=== PATIENT | female | born 1960 | race Caucasian/White ===

== ENCOUNTER 2020-06-11 15:27 | Outpatient (REF) | payer OTHER, SELFPAY ==
--- NOTE | 2020-06-11 15:34 | MM_ITS ---
EXAMINATION: MM SCREENING DIGITAL BREAST TOMOSYNTHESIS, BILATERAL CLINICAL INFORMATION: Screening. Asymptomatic. The lifetime risk of breast cancer based on the Tyrer-Cuzick Model is 8%. COMPARISON: Mammography: 06/06/2019, 05/06/2018, 02/25/2017 TECHNIQUE: Digital breast tomosynthesis is performed in both the craniocaudal and mediolateral oblique views along with computer-aided detection (CAD). Synthesized 2D images are generated from the tomosynthesis. FINDINGS: There are scattered areas of fibroglandular density (ACR BI-RADS breast composition Category b). There are no significant masses, abnormal calcifications, or other abnormalities. Parenchymal pattern is similar to prior exams. The skin contours are smooth. MM/MM tomosynthesis screening BI IMPRESSION: No mammographic evidence of malignancy. ASSESSMENT: BI-RADS 1: Negative RECOMMENDATION: Routine annual mammography screening. This patient's information was entered into a reminder system with a target due date for their next mammogram.
== END 2020-06-11 15:28 | disposition home or self-care (01) ==
LOC: HO.MAMMO 15:27
PROVIDERS: Visit Provider Internal Medicine
DX: Z12.31 Encounter for screening mammogram for malignant neoplasm of breast (principal)
CPT/HCPCS: 77063; 77067

== ENCOUNTER → 2020-09-05 15:32 | Outpatient (BNVA) | payer OTHER, SELFPAY | PROVIDERS: PCP Internal Medicine; Visit Provider Nurse Practitioner ==

== ENCOUNTER 2020-10-17 | Outpatient (REF) | payer OTHER, SELFPAY ==
[2020-10-23 04:48] LABS: HPV mRNA E6/E7 rflx Not Detected (Not Detected)
== END 2020-10-17 00:01 | disposition home or self-care (01) ==
LOC: HO.LNP
PROVIDERS: Visit Provider Internal Medicine
DX: Z12.4 Encounter for screening for malignant neoplasm of cervix (principal); Z11.51 Encounter for screening for human papillomavirus (HPV)
CPT/HCPCS: 87624; 88142

== ENCOUNTER 2020-12-25 11:56 | Outpatient (REF) | payer OTHER, SELFPAY ==
[2020-12-25 13:55] LABS: MANUAL DIFF FLAG NO
[2020-12-25 14:02] LABS: Basophils Absolute Auto 0.1 X10*3/uL (0.0-0.2); Basophils Percent Auto 0.6 % (0-2); Eosinophils Absolute Auto 0.1 X10*3/uL (0.0-0.4); Eosinophils Percent Auto 1.8 % (0-4); Hematocrit 53.7 % (37-47); Hemoglobin 17.3 g/dl (12.0-16.0); Imm Gran Abs Auto 0.02 X10*3/uL (0.00-0.03); Imm Gran Pct Auto 0.3 % (0.0-0.4); Lymphocytes Absolute Auto 2.7 X10*3/uL (1.2-4.9); Lymphocytes Percent Auto 34.3 % (20-40); Mean Corpuscular HGB Conc 32.2 g/dl (31.0-35.0); Mean Corpuscular Hemoglobin 29.9 pg (27.0-33.0); Mean Corpuscular Volume 92.7 fL (80-98); Mean Platelet Volume 10.6 fL (9.4-12.3); Monocytes Absolute Auto 0.5 X10*3/uL (0.1-1.2); Monocytes Percent Auto 5.9 % (2-11); Neutrophils Absolute Auto 4.5 X10*3/uL (2.0-8.3); Neutrophils Percent Auto 57.1 % (45-73); Platelet Count 235 X10*3/uL (160-400); Red Blood Count 5.79 X10*6/uL (4.20-5.50); Red Cell Distribution Width 13.2 % (11.0-16.0); White Blood Count 7.9 X10*3/uL (4.8-10.8)
[2020-12-25 14:42] LABS: Ferritin 63 ng/mL (10-250); TSH reflex Free T4 0.55 uIU/mL (0.32-4.0)
[2020-12-25 14:45] LABS: Vitamin D 25-OH Total 55.6 ng/mL (>30)
[2020-12-25 14:54] LABS: Vitamin B12 456 pg/mL (200-900)
[2020-12-25 15:04] LABS: Alanine Aminotransferase 33 U/L (0-31); Albumin Level 4.7 g/dL (3.5-5.0); Alkaline Phosphatase 151 U/L (39-117); Anion Gap 17 (12-20); Aspartate Amino Transferase 24 U/L (5-31); Bilirubin Total 0.6 mg/dL (0.0-1.0); Blood Urea Nitrogen 9 mg/dL (9-16); Calcium 10.5 mg/dL (8.4-10.2); Carbon Dioxide 26 mmol/L (22-29); Chloride 102 mmol/L (96-108); Cholesterol 259 mg/dL; Estimated Glomerular Filt Rate > 60; Glucose Fasting 200 mg/dL (60-99); HDL Cholesterol 41 mg/dL; Iron 104 mcg/dL (30-160); LDL Cholesterol Calculated 170 mg/dl; Percent Iron Saturation 23 % (15-50); Potassium 4.1 mmol/L (3.3-5.1); Sodium 141 mmol/L (135-145); Total Iron Binding Capacity 451 mcg/dL (228-428); Total Protein 7.4 g/dL (6.5-8.0); Triglycerides 242 mg/dL; Unsaturated Iron Binding 347 ug/dL
== END 2020-12-25 11:57 | disposition home or self-care (01) ==
LOC: HO.HMGCLDS 11:56
PROVIDERS: Nurse Practitioner Family; PCP Internal Medicine; Visit Provider Internal Medicine
DX: Z00.01 Encounter for general adult medical examination with abnormal findings (principal); E78.5 Hyperlipidemia, unspecified; J44.9 Chronic obstructive pulmonary disease, unspecified; M50.30 Other cervical disc degeneration, unspecified cervical region; R53.83 Other fatigue; Z78.0 Asymptomatic menopausal state; Z98.890 Other specified postprocedural states
CPT/HCPCS: 36415; 80053; 80061; 82306; 82607; 82728; 83540; 84443; 85025

== ENCOUNTER → 2020-12-31 13:30 | Outpatient (BNVA) | payer OTHER, SELFPAY | PROVIDERS: Visit Provider Nurse Practitioner | DX: K31.84 Gastroparesis (principal); R14.0 Abdominal distension (gaseous); K59.04 Chronic idiopathic constipation; K21.9 Gastro-esophageal reflux disease without esophagitis | CPT/HCPCS: 99212 ==

== ENCOUNTER 2021-03-27 11:59 | Outpatient (REF) | payer OTHER, SELFPAY ==
[2021-03-27 14:19] LABS: Alanine Aminotransferase 28 U/L (0-31); Anion Gap 15 (12-20); Aspartate Amino Transferase 20 U/L (5-31); Blood Urea Nitrogen 8 mg/dL (9-16); Calcium 10.2 mg/dL (8.4-10.2); Carbon Dioxide 26 mmol/L (22-29); Chloride 104 mmol/L (96-108); Cholesterol 160 mg/dL; Estimated Average Glucose 166 mg/dL; Estimated Glomerular Filt Rate > 60; Glucose Fasting 113 mg/dL (60-99); HDL Cholesterol 34 mg/dL; Hemoglobin A1c % 7.4 %; LDL Cholesterol Calculated 83 mg/dl; Potassium 4.3 mmol/L (3.3-5.1); Sodium 141 mmol/L (135-145); Triglycerides 219 mg/dL
[2021-03-27 14:46] LABS: Creatinine Urine 57.05 mg/dL; Microalbum/Creatinine Ratio Ur 12.2 ug/mg cr
== END 2021-03-27 12:00 | disposition home or self-care (01) ==
LOC: HO.HMGCLDS 11:59
PROVIDERS: PCP Internal Medicine; Visit Provider Internal Medicine
DX: E11.65 Type 2 diabetes mellitus with hyperglycemia (principal); E78.5 Hyperlipidemia, unspecified; I10 Essential (primary) hypertension
CPT/HCPCS: 36415; 80048; 80061; 82043; 83036; 84450; 84460

== ENCOUNTER → 2021-04-09 14:08 | Outpatient (BNVA) | payer OTHER, SELFPAY | PROVIDERS: PCP Internal Medicine; Visit Provider Anesthesiology | DX: M96.1 Postlaminectomy syndrome, not elsewhere classified (principal); Z79.899 Other long term (current) drug therapy | CPT/HCPCS: 99212 ==

== ENCOUNTER 2021-06-12 13:59 | Outpatient (REF) | payer OTHER, SELFPAY ==
--- NOTE | ~2021-06-12 | MM_ITS ---
EXAMINATION: MM SCREENING DIGITAL MAMMOGRAPHY, BILATERAL CLINICAL INFORMATION: Screening. Asymptomatic. The lifetime risk of breast cancer based on the Tyrer-Cuzick Model is 7.6%. COMPARISON: Mammography: June 11, 2020 and studies dating back to December 20, 2013 TECHNIQUE: Digital mammography is performed in craniocaudal and mediolateral oblique views along with computer-aided detection (CAD). FINDINGS: There are scattered areas of fibroglandular density (ACR BI-RADS breast composition Category b). There are no significant masses, abnormal calcifications, or other abnormalities. MM/MM screening mammo BI IMPRESSION: There are no significant changes from prior study. ASSESSMENT: BI-RADS 1: Negative RECOMMENDATION: Routine annual mammography screening. This patient's information was entered into a reminder system with a target due date for their next mammogram.
== END 2021-06-12 14:00 | disposition home or self-care (01) ==
LOC: HO.MAMMO 13:59
PROVIDERS: PCP Internal Medicine; Visit Provider Internal Medicine
DX: Z12.31 Encounter for screening mammogram for malignant neoplasm of breast (principal)
CPT/HCPCS: 77067

== ENCOUNTER 2021-07-03 11:22 | Outpatient (REF) | payer OTHER, SELFPAY ==
[2021-07-03 13:58] LABS: Estimated Average Glucose 154 mg/dL
[2021-07-03 14:26] LABS: Alanine Aminotransferase 24 U/L (0-31); Aspartate Amino Transferase 15 U/L (5-31); Cholesterol 209 mg/dL; HDL Cholesterol 48 mg/dL; LDL Cholesterol Calculated 124 mg/dl; Triglycerides 189 mg/dL
== END 2021-07-03 11:23 | disposition home or self-care (01) ==
LOC: HO.HMGCLDS 11:22
PROVIDERS: PCP Internal Medicine; Visit Provider Internal Medicine
DX: E11.65 Type 2 diabetes mellitus with hyperglycemia (principal); E78.5 Hyperlipidemia, unspecified
CPT/HCPCS: 36415; 80061; 83036; 84450; 84460

== ENCOUNTER → 2021-07-04 13:52 | Outpatient (BNVA) | payer OTHER, SELFPAY | PROVIDERS: PCP Internal Medicine; Referring Provider Internal Medicine; Visit Provider Nurse Practitioner | DX: K21.9 Gastro-esophageal reflux disease without esophagitis (principal); K59.04 Chronic idiopathic constipation; K31.84 Gastroparesis; R14.0 Abdominal distension (gaseous) | CPT/HCPCS: 99212 ==

== ENCOUNTER 2021-09-19 15:42 | Inpatient (IN) | payer OTHER, SELFPAY ==
[2021-09-19] VITALS (8 sets, daily range): BP systolic 149–178; BP diastolic 51–86; PULSE 104–108; RESP 18–21; TEMP 36.7–37; O2SAT 88–95; BMI 30.2
--- NOTE | ~2021-09-19 | XR_ITS ---
EXAMINATION: XR CHEST CLINICAL INFORMATION: Shortness of breath. COMPARISON: Chest radiograph dated from 10/28/2019. TECHNIQUE: AP view of the chest was obtained. FINDINGS: Stable appearance of the cardiomediastinal silhouette. Suspect developing hazy opacities in the right lung base. No pleural effusion or pneumothorax. No acute osseous abnormalities. Visualized upper abdomen is within normal limits. XR/XR chest 1V IMPRESSION: Suspect hazy airspace opacities in the right lower lobe which are nonspecific and could be related with subsegmental atelectasis, aspiration or developing infiltrates depending on the clinical context.
--- NOTE | 2021-09-19 16:15 | ED_ITS ---
HPI - URI/Sore Throat General Chief Complaint: Upper Respiratory Symptoms Stated Complaint: flu like Time Seen by Provider: 09/19/21 16:01 History of Present Illness HPI Narrative: Patient is a 61-year-old female presents today with having shortness of breath coughing upper respiratory symptoms that been ongoing for the last 24 hours. Positive history of COPD baseline not on oxygen long history of smoking patient has a history of having COVID vaccine x2 back in October and November of last year. Positive generalized malaise aches. Positive sick contact. No change in smell or taste. No GI symptoms. No chest pain. No history of heart attack. Patient from home. Related Data Home Medications Medication Instructions Recorded Confirmed aspirin 81 mg tablet,delayed 81 mg PO BEDTIME 01/10/21 04/09/21 release (Adult Low Dose Aspirin) fluticasone furoate 200 1 inh INHALATION DAILY 03/31/21 09/19/21 mcg/actuation blister powder for inhalation (Arnuity Ellipta) umeclidinium 62.5 mcg/actuation 1 inh INHALATION DAILY 03/31/21 09/19/21 blister powder for inhalation atorvastatin 20 mg tablet 20 mg PO BEDTIME 09/19/21 09/19/21 gabapentin 800 mg tablet 800 mg PO Q6H 09/19/21 09/19/21 metoclopramide HCl 10 mg tablet 10 mg PO TIDAC 09/19/21 09/19/21 (Reglan) Previous Rx's Medication Instructions Recorded cetirizine 10 mg capsule (Zyrtec) 10 mg PO DAILY 30 Days #30 cap 09/24/20 cholecalciferol (vitamin D3) 50 50 mcg PO DAILY #30 cap 04/03/21 mcg (2,000 unit) capsule amitriptyline 25 mg tablet 50 mg PO BEDTIME 30 Days #60 tab 04/09/21 linaclotide 145 mcg capsule 145 mcg PO QAM 30 Days #30 cap 07/04/21 (Linzess) omeprazole 20 mg capsule,delayed 20 mg PO DAILY 30 Days #30 cap 07/04/21 release psyllium husk 0.52 gram capsule 1.04 g PO BID #120 cap 07/04/21 (Fiber Laxative (psyllium husk)) simethicone 180 mg capsule (Gas 180 mg PO QID 30 Days #120 cap 07/04/21 Relief (simethicone)) naproxen 500 mg tablet 500 mg PO BID PRN #60 tab 08/21/21 metformin 500 mg tablet 500 mg PO BID #180 tab 09/05/21 nystatin-triamcinolone 100,000 1 appl TOPICAL DAILY 10 Days #30 g 09/17/21 unit/g-0.1 % topical cream Allergies Allergy/AdvReac Type Severity Reaction Status Date / Time amoxicillin Allergy Intermediate RASH Verified 07/04/21 13:59 [AMOXICILLIN] Review of Systems Verdana 4l Review of Systems: Verdana 4d Positive coughing Verdana 4d congestion upper respiratory symptoms positive generalized malaise all system reviewed otherwise negative Verdana 4d Yes all other systems are reviewed and are negative [facility] Past Medical History Attestation statement: The following information was validated with the patient. Medical History COPD (chronic obstructive pulmonary disease) Degenerative disc disease, cervical Diabetes mellitus with hyperglycemia, without long-term current use of insulin Dyslipidemia Postlaminectomy syndrome of cervical region Postmenopause Seasonal allergic rhinitis Type 2 diabetes mellitus without complication, without long-term current use of insulin Surgical History H/O cervical discectomy History of esophagogastroduodenoscopy (EGD) Hx of colonoscopy Family History Family History Mother Diabetes Sister Diabetes Brother Diabetes Father HTN (hypertension) Social History Social History Housing: Other Housing Other:: mobile home Alcohol intake: never Patient Tobacco Use Status: Current everyday Tobacco user Cigarette Packs Per Day: 1 Cigarettes Per Day: 20 e-Cigarette/Vaping Use: Never Used Use of substances other than those prescribed or required for medical reasons: No Advance Directives: No Advance Directives Information Provided: No service: No Current occupational status: unemployed Physical Exam Verdana 4l Vital Signs: Verdana 4d Verdana 4d Vital Signs: Verdana 4d Verdana 4Bd Last Vital Signs Verdana 4d [employer] 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 Oriented X3. No acute distress. Eyes: Pupils equal, round and reactive to light. ENT: Pharynx normal. Neck: Normal inspection. Neck supple. No lymph nodes noted. No crepitus CVS: Normal heart rate and rhythm. Pulses normal. Normal S1 and S2 Respiratory: diminished breath sounds bilaterally with rhonchi is noted. Abdomen: Soft and nontender. No rigidity. No distention. good BS x4 Skin: Skin warm and dry. Normal skin color. Normal skin turgor. Extremities: Positive 1+ edema. Neurovascular intact to all extremities. No Lacerations. No Rash Neuro: Oriented X 3. No motor deficit. No sensory deficit. Moving all extermities. No slurred speech MDM - URI/Sore Throat MDM Narrative Medical decision making narrative: positive shortness of breath generalized malaise coughing congestion upper respiratory symptoms. Decreased O2 sat down to 80 or 85% on room air. Drops even lower when she ambulates. Patient placed on 2 L of supplemental oxygen with O2 sat maintaining at approximately 90%. Steroids started. COVID test ordered. Labs ordered. COVID test was negative. Patient's RSV was positive. Likely the cause of patient's exacerbation from COPD. Steroid given neb treatment given. Chest x- ray showed no focal infiltrate. Patient will require admission in stable condition. Patient's D-dimer less than 150 unlikely to have pulmonary emboli. BMP normal unlikely to have congestive heart failure. Differential Diagnosis Differential diagnosis: Likely upper respiratory infection Medical Records Attestation: I reviewed the patient's medical records. Lab Data Attestation: I reviewed the patient's lab results. Result diagrams: 09/19/21 16:31 09/19/21 16:31 Labs: Lab Results 09/19/21 09/19/21 09/19/21 Range/Units 16:14 16:31 16:31 WBC 8.8 (4.8-10.8) X10*3/uL RBC 5.55 H (4.20-5.50) X10*6/uL Hgb 16.4 H (12.0-16.0) g/dl Hct 50.7 H (37.0-47.0) % MCV 91.4 (80.0-98.0) fL MCH 29.5 (27.0-33.0) pg MCHC 32.3 (31.0-35.0) g/dl RDW 13.9 (11.0-16.0) % Plt Count 185 (160-400) X10*3/uL MPV 10.1 (9.4-12.3) fL Immature Gran % (Auto) 0.3 (0.0-0.4) % Neut % (Auto) 74.5 H (45-73) % Lymph % (Auto) 16.1 L (20-40) % [place] % (Auto) 7.5 (2-11) % Eos % (Auto) 0.9 (0-4) % Baso % (Auto) 0.7 (0-2) % Lymph # (Auto) 1.4 (1.2-4.9) X10*3/uL [place] # (Auto) 0.7 (0.1-1.2) X10*3/uL Eos # (Auto) 0.1 (0.0-0.4) X10*3/uL Baso # (Auto) 0.1 (0.0-0.2) X10*3/uL Abs Immat Gran (auto) 0.03 (0.00-0.03) X10*3/uL Absolute Neuts (auto) 6.6 (2.0-8.3) x10*3/uL Absolute Nucleated RBC 0.000 (0.0-0.012) X10*3/uL Nucleated RBC % (auto) 0.0 (0.0-0.2) /100WBC Smear Tech's Comments VERIFIED D-Dimer High Sensitivty NG/ML Sodium 139 (135-145) mmol/L Potassium 4.6 (3.3-5.1) mmol/L Chloride 100 (96-108) mmol/L Carbon Dioxide 26 (22-29) mmol/L Anion Gap 18 (12-20) BUN 7 L (9-16) mg/dL Creatinine 0.63 (0.5-1.4) mg/dL Estim Creat Clear Calc 72.8 Estimated GFR > 60 Random Glucose 151 H (60-115) mg/dL Calcium 10.1 (8.4-10.2) mg/dL Phosphorus 2.9 (2.7-4.5) mg/dL Magnesium 1.6 (1.6-2.6) mg/dL Total Bilirubin 0.4 (0.0-1.0) mg/dL Direct Bilirubin < 0.2 (0.0-0.5) mg/dL AST 29 D (5-31) U/L ALT 41 H (0-31) U/L Alkaline Phosphatase 139 H (39-117) U/L Lactate Dehydrogenase 230 H (122-220) U/L Troponin I High Sens (<3.5-17.0) ng/L C-Reactive Protein 2.17 H (< or = 0.50) mg/dL B-Natriuretic Peptide (<100) pg/mL Total Protein 7.6 (6.5-8.0) g/dL Albumin 4.6 (3.5-5.0) g/dL Procalcitonin ng/mL Urine Color YELLOW Urine Appearance CLEAR Urine pH 5.5 (5.0-8.0) Ur Specific [place] <= 1.005 (1.005-1.025) Urine Protein NEG (NEG-TRACE) MG/DL Urine Glucose (UA) NEG (NEG) MG/DL Urine Ketones NEG (NEG) MG/DL Urine Blood NEG (NEG) Urine Nitrite NEG (NEG) Ur Leukocyte Esterase NEG (NEG) Urine RBC 0-2 (0) /HPF Urine WBC 1-4 (0-4) /HPF Urine WBC Clumps NOTED Ur Squamous Epith Cells 1+ /LPF Urine Bacteria 3+ /LPF Urine Mucus TRACE /LPF Influenza Type A (PCR) (Negative) Influenza Type B (PCR) (Negative) RSV RNA Qual (PCR) (Negative) SARS-CoV-2 RNA (RT-PCR) (Negative) 09/19/21 09/19/21 09/19/21 Range/Units 16:31 16:31 16:31 WBC (4.8-10.8) X10*3/uL RBC (4.20-5.50) X10*6/uL Hgb (12.0-16.0) g/dl Hct (37.0-47.0) % MCV (80.0-98.0) fL MCH (27.0-33.0) pg MCHC (31.0-35.0) g/dl RDW (11.0-16.0) % Plt Count (160-400) X10*3/uL MPV (9.4-12.3) fL Immature Gran % (Auto) (0.0-0.4) % Neut % (Auto) (45-73) % Lymph % (Auto) (20-40) % [place] % (Auto) (2-11) % Eos % (Auto) (0-4) % Baso % (Auto) (0-2) % Lymph # (Auto) (1.2-4.9) X10*3/uL [place] # (Auto) (0.1-1.2) X10*3/uL Eos # (Auto) (0.0-0.4) X10*3/uL Baso # (Auto) (0.0-0.2) X10*3/uL Abs Immat Gran (auto) (0.00-0.03) X10*3/uL Absolute Neuts (auto) (2.0-8.3) x10*3/uL Absolute Nucleated RBC (0.0-0.012) X10*3/uL Nucleated RBC % (auto) (0.0-0.2) /100WBC Smear Tech's Comments D-Dimer High Sensitivty < 150 NG/ML Sodium (135-145) mmol/L Potassium (3.3-5.1) mmol/L Chloride (96-108) mmol/L Carbon Dioxide (22-29) mmol/L Anion Gap (12-20) BUN (9-16) mg/dL Creatinine (0.5-1.4) mg/dL Estim Creat Clear Calc Estimated GFR Random Glucose (60-115) mg/dL Calcium (8.4-10.2) mg/dL Phosphorus (2.7-4.5) mg/dL Magnesium (1.6-2.6) mg/dL Total Bilirubin (0.0-1.0) mg/dL Direct Bilirubin (0.0-0.5) mg/dL AST (5-31) U/L ALT (0-31) U/L Alkaline Phosphatase (39-117) U/L Lactate Dehydrogenase (122-220) U/L Troponin I High Sens 5.0 (<3.5-17.0) ng/L C-Reactive Protein (< or = 0.50) mg/dL B-Natriuretic Peptide < 10 (<100) pg/mL Total Protein (6.5-8.0) g/dL Albumin (3.5-5.0) g/dL Procalcitonin 0.10 ng/mL Urine Color Urine Appearance Urine pH (5.0-8.0) Ur Specific [place] (1.005-1.025) Urine Protein (NEG-TRACE) MG/DL Urine Glucose (UA) (NEG) MG/DL Urine Ketones (NEG) MG/DL Urine Blood (NEG) Urine Nitrite (NEG) Ur Leukocyte Esterase (NEG) Urine RBC (0) /HPF Urine WBC (0-4) /HPF Urine WBC Clumps Ur Squamous Epith Cells /LPF Urine Bacteria /LPF Urine Mucus /LPF Influenza Type A (PCR) (Negative) Influenza Type B (PCR) (Negative) RSV RNA Qual (PCR) (Negative) SARS-CoV-2 RNA (RT-PCR) (Negative) 09/19/21 Range/Units 16:31 WBC (4.8-10.8) X10*3/uL RBC (4.20-5.50) X10*6/uL Hgb (12.0-16.0) g/dl Hct (37.0-47.0) % MCV (80.0-98.0) fL MCH (27.0-33.0) pg MCHC (31.0-35.0) g/dl RDW (11.0-16.0) % Plt Count (160-400) X10*3/uL MPV (9.4-12.3) fL Immature Gran % (Auto) (0.0-0.4) % Neut % (Auto) (45-73) % Lymph % (Auto) (20-40) % [place] % (Auto) (2-11) % Eos % (Auto) (0-4) % Baso % (Auto) (0-2) % Lymph # (Auto) (1.2-4.9) X10*3/uL [place] # (Auto) (0.1-1.2) X10*3/uL Eos # (Auto) (0.0-0.4) X10*3/uL Baso # (Auto) (0.0-0.2) X10*3/uL Abs Immat Gran (auto) (0.00-0.03) X10*3/uL Absolute Neuts (auto) (2.0-8.3) x10*3/uL Absolute Nucleated RBC (0.0-0.012) X10*3/uL Nucleated RBC % (auto) (0.0-0.2) /100WBC Smear Tech's Comments D-Dimer High Sensitivty NG/ML Sodium (135-145) mmol/L Potassium (3.3-5.1) mmol/L Chloride (96-108) mmol/L Carbon Dioxide (22-29) mmol/L Anion Gap (12-20) BUN (9-16) mg/dL Creatinine (0.5-1.4) mg/dL Estim Creat Clear Calc Estimated GFR Random Glucose (60-115) mg/dL Calcium (8.4-10.2) mg/dL Phosphorus (2.7-4.5) mg/dL Magnesium (1.6-2.6) mg/dL Total Bilirubin (0.0-1.0) mg/dL Direct Bilirubin (0.0-0.5) mg/dL AST (5-31) U/L ALT (0-31) U/L Alkaline Phosphatase (39-117) U/L Lactate Dehydrogenase (122-220) U/L Troponin I High Sens (<3.5-17.0) ng/L C-Reactive Protein (< or = 0.50) mg/dL B-Natriuretic Peptide (<100) pg/mL Total Protein (6.5-8.0) g/dL Albumin (3.5-5.0) g/dL Procalcitonin ng/mL Urine Color Urine Appearance Urine pH (5.0-8.0) Ur Specific [place] (1.005-1.025) Urine Protein (NEG-TRACE) MG/DL Urine Glucose (UA) (NEG) MG/DL Urine Ketones (NEG) MG/DL Urine Blood (NEG) Urine Nitrite (NEG) Ur Leukocyte Esterase (NEG) Urine RBC (0) /HPF Urine WBC (0-4) /HPF Urine WBC Clumps Ur Squamous Epith Cells /LPF Urine Bacteria /LPF Urine Mucus /LPF Influenza Type A (PCR) NEGATIVE (Negative) Influenza Type B (PCR) NEGATIVE (Negative) RSV RNA Qual (PCR) POSITIVE A (Negative) SARS-CoV-2 RNA (RT-PCR) NEGATIVE (Negative) Discharge Plan Discharge Clinical Impression: COPD (chronic obstructive pulmonary disease) Patient Disposition: Admitted As Inpatient
[2021-09-19] MEDS: Albuterol/Iprat 2.5/0.5MG 3 ML AMPUL.NEB INHALE (16:34)
[2021-09-19 16:36] LABS: Basophils Absolute Auto 0.1 X10*3/uL (0.0-0.2); Basophils Percent Auto 0.7 % (0-2); Hemoglobin 16.4 g/dl (12.0-16.0); Imm Gran Abs Auto 0.03 X10*3/uL (0.00-0.03); Imm Gran Pct Auto 0.3 % (0.0-0.4); MANUAL DIFF FLAG SCAN; PLT CLUMP 1; Red Cell Distribution Width 13.9 % (11.0-16.0); SCAN SMEAR FLAG 1
[2021-09-19 16:38] LABS: Eosinophils Absolute Auto 0.1 X10*3/uL (0.0-0.4); Eosinophils Percent Auto 0.9 % (0-4); Hematocrit 50.7 % (37.0-47.0); Lymphocytes Absolute Auto 1.4 X10*3/uL (1.2-4.9); Lymphocytes Percent Auto 16.1 % (20-40); Mean Corpuscular HGB Conc 32.3 g/dl (31.0-35.0); Mean Corpuscular Hemoglobin 29.5 pg (27.0-33.0); Mean Corpuscular Volume 91.4 fL (80.0-98.0); Mean Platelet Volume 10.1 fL (9.4-12.3); Monocytes Absolute Auto 0.7 X10*3/uL (0.1-1.2); Monocytes Percent Auto 7.5 % (2-11); Neutrophils Absolute Auto 6.6 x10*3/uL (2.0-8.3); Neutrophils Percent Auto 74.5 % (45-73); Red Blood Count 5.55 X10*6/uL (4.20-5.50)
[2021-09-19 16:42] LABS: White Blood Count 8.8 X10*3/uL (4.8-10.8)
--- NOTE | 2021-09-19 16:53 | PC.NURSE ---
Pt complaining only of upper congestion. denies SOB. after duoneb continues to sat in high 80s on 2L. 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 talks about a nonproductive cough that is intermittent. skin pwd. cap refill brisk. no clubbing. spking full sentences. st on monitor. LS dim witrh exp wheeze.
[2021-09-19 16:55] LABS: B Type Natriuretic Peptide < 10 pg/mL (<100)
[2021-09-19 17:01] LABS: Alanine Aminotransferase 41 U/L (0-31); Albumin Level 4.6 g/dL (3.5-5.0); Alkaline Phosphatase 139 U/L (39-117); Anion Gap 18 (12-20); Aspartate Amino Transferase 29 U/L (5-31); Bilirubin Direct < 0.2 mg/dL (0.0-0.5); Bilirubin Total 0.4 mg/dL (0.0-1.0); Blood Urea Nitrogen 7 mg/dL (9-16); C Reactive Protein 2.17 mg/dL (< or = 0.50); Calcium 10.1 mg/dL (8.4-10.2); Carbon Dioxide 26 mmol/L (22-29); Chloride 100 mmol/L (96-108); Creatinine Clr Calc Pharmacy 72.8; Estimated Glomerular Filt Rate > 60; Glucose Random 151 mg/dL (60-115); Lactate Dehydrogenase 230 U/L (122-220); Magnesium 1.6 mg/dL (1.6-2.6); Phosphorus 2.9 mg/dL (2.7-4.5); Potassium 4.6 mmol/L (3.3-5.1); Sodium 139 mmol/L (135-145); Total Protein 7.6 g/dL (6.5-8.0)
[2021-09-19] MEDS: methylPREDNISolone Sod Succ 125 MG/2 ML VIAL IVPUSH (17:06)
[2021-09-19 17:07] LABS: Platelet Count 185 X10*3/uL (160-400)
[2021-09-19 17:08] LABS: SLIDE REVIEW VERIFIED
[2021-09-19 17:09] LABS: D Dimer High Sensitivity < 150 NG/ML
[2021-09-19 17:17] LABS: Influenza A PCR NEGATIVE (Negative); Influenza B PCR NEGATIVE (Negative); Resp Syncy Virus RNA Qual PCR POSITIVE (Negative); SARS COV2 PCR INHOUSE NEGATIVE (Negative)
[2021-09-19 17:28] LABS: Appearance Urine CLEAR; Color Urine YELLOW; Glucose Urine UA NEG (NEG); Leukocyte Esterase Urine NEG (NEG); Nitrite Urine NEG (NEG); PH 5.5 (5.0-8.0); Specific Gravity - Urine <= 1.005 (1.005-1.025); Urine Blood NEG (NEG); Urine Ketones NEG (NEG); Urine Protein NEG (NEG-TRACE)
--- NOTE | 2021-09-19 17:37 | PHA.MEDREC ---
Pharmacy Consult ? Medication Reconciliation Pharmacy has completed the medication reconciliation.
[2021-09-19 17:39] LABS: Bacteria Urine 3+ /LPF; Mucus Urine TRACE /LPF; RBC Urine 0-2 /HPF (0); Squamous Epithelial Cell Urine 1+ /LPF; WBC Clumps Urine NOTED
--- NOTE | 2021-09-19 20:34 | PC.NURSE ---
Assumed care of pt at 1900. Pt resting in bed, dyspneic, on O2 via NC, vitals as charted. Tolerating PO intake. Call light within reach, educated to call for assistance. Awaiting inpatient bed assignment
[2021-09-19] MEDS: Azithromycin 500 MG TABLET PO (20:36)
[2021-09-19] MEDS: cefTRIAXone sodium 1 GM in 0.9 % Sodium Chloride 50 ML IV (20:36)
--- NOTE | 2021-09-19 22:59 | PC.NURSE ---
POC 449
[2021-09-19 23:03] LABS: Glucose, Whole Blood 449 mg/dL (60-115)
--- NOTE | 2021-09-19 23:32 | P.HPHOSP_ITS ---
History of Present Illness Date of Service: 09/19/21 Chief Complaint: shortness of breath 61-year-old female with a past medical history of hypertension, hyperlipidemia, diabetes, COPD, seasonal allergies; presented to the hospital today with a chief complaint of shortness of breath. Patient reports that over the past 2 days she has been having shortness of breath and cough. Associated with sputum production. Denies any recent travel or sick contacts. Denies any chest pain or palpitations. Denies any nausea vomiting or diarrhea. Reports that shortness of breath has been gradually worsening. Reports she still continues to smoke cigarettes. Review of all other systems is negative except mentioned above ER course: Per ER team patient on presentation noted to be mildly tachypneic, saturating 86% on room air; placed on supplemental oxygen; COVID-19 negative, flu negative, D-dimer negative; chest x-ray concerning for pneumonia given empiric antibiotics. Patient also had wheezing and received steroids. RSV was positive. Admitted to the hospital for further management. [facility] Medical History COPD (chronic obstructive pulmonary disease) Degenerative disc disease, cervical Diabetes mellitus with hyperglycemia, without long-term current use of insulin Dyslipidemia Postlaminectomy syndrome of cervical region Postmenopause Seasonal allergic rhinitis Type 2 diabetes mellitus without complication, without long-term current use of insulin Family History Mother Diabetes Sister Diabetes Brother Diabetes Father HTN (hypertension) Pertinent family history: as above Surgical History H/O cervical discectomy History of esophagogastroduodenoscopy (EGD) Hx of colonoscopy Social History Housing: Other Housing Other:: mobile home Alcohol intake: never Patient Tobacco Use Status: Current everyday Tobacco user Cigarette Packs Per Day: 1 Cigarettes Per Day: 20 e-Cigarette/Vaping Use: Never Used Use of substances other than those prescribed or required for medical reasons: No Advance Directives: No Advance Directives Information Provided: No service: No Current occupational status: unemployed Meds Allergies Allergy/AdvReac Type Severity Reaction Status Date / Time amoxicillin Allergy Intermediate RASH Verified 07/04/21 13:59 [AMOXICILLIN] Active Medications: Current Medications Acetaminophen (Acetaminophen 325 Mg Tablet) 650 mg PO Q6H PRN PRN Reason: Pain, Mild (Pain Scale 1-3) Albuterol Sulfate (Albuterol Sulfate (0.083%) 2.5 Mg/3 Ml Vial.Neb) 2.5 mg INHALE Q2H PRN PRN Reason: Shortness of Breath/Wheezing Albuterol/Ipratropium (Albuterol/Iprat 2.5/0.5mg 3 Ml Ampul.Neb) 3 ml INHALE RQ4H WHILE AWAKE [facility] Amitriptyline HCl (Amitriptyline Hcl 50 Mg Tablet) 50 mg PO BEDTIME [facility] Aspirin (Aspirin Enteric Coated 81 Mg Tablet.) 81 mg PO BEDTIME MOUSTAPHA Atorvastatin Calcium (Atorvastatin Calcium 20 Mg Tablet) 20 mg PO BEDTIME MOUSTAPHA Azithromycin (Azithromycin 500 Mg Tablet) 500 mg PO Q24H [facility] Dextrose (Dextrose 50 % 25 Gm/50 Ml Syringe) 25 gm IVPUSH Q15M PRN; Protocol PRN Reason: per Hypoglycemia Standing Ord. Enoxaparin Sodium (Enoxaparin Sodium 40 Mg/0.4 Ml Syringe) 40 mg SUBCUT Q24H [facility] Gabapentin (Gabapentin 400 Mg Capsule) 800 mg PO Q6H [facility] Glucose (Glucose Gel 15 Gm Gel..Gram.) 15 gm PO Q15M PRN; Protocol PRN Reason: per Hypoglycemia Standing Ord. Ceftriaxone Sodium 1 gm/ (Sodium Chloride) 100 mls @ 200 mls/hr IV Q24H [facility] Insulin Glargine (Insulin Glargine,Hum.Rec.Anlog 100 Unit/Ml 10 Ml Vial) 10 unit SUBCUT BEDTIME [facility] Insulin Human Lispro (Insulin Lispro 100 Unit/Ml 3 Ml Vial) 0 unit SUBCUT QIDACHS [facility]; Protocol Loratadine (Loratadine 10 Mg Tablet) 10 mg PO DAILY [facility] Melatonin (Melatonin 3 Mg Tablet) 6 mg PO BEDTIME PRN PRN Reason: Insomnia Methylprednisolone Sodium Succinate (Methylprednisolone Sod Succ 40 Mg/Ml Vial) 40 mg IVPUSH Q6H [facility] Metoclopramide HCl (Metoclopramide Hcl 10 Mg Tablet) 10 mg PO TIDAC [facility] Omeprazole (Omeprazole 20 Mg Capsule.) 20 mg PO DAILY [facility] Pharmacy Consult (Consult Rx Perform Med Rec) 1 each MISCELLANE ONCE PRN PRN Reason: Consult order Senna (Sennosides 8.6 Mg Tablet) 17.2 mg PO BEDTIME PRN PRN Reason: Constipation Sodium Chloride (0.9 % Sodium Chloride Flush 3 Ml Syringe) 3 ml IVFLUSH QSHIFT [facility] Vitamin D (Cholecalciferol (Vitamin D3) 25 Mcg Tablet) 50 mcg PO DAILY [facility] Home Medications Medication Instructions Recorded Confirmed Last Taken Type aspirin 81 mg 81 mg PO BEDTIME 01/10/21 09/19/21 09/18/21 History tablet,delayed release (Adult Low Dose Aspirin) fluticasone 1 inh INHALATION 03/31/21 09/19/21 09/19/21 History furoate 200 DAILY mcg/actuation blister powder for inhalation (Arnuity Ellipta) umeclidinium 62.5 1 inh INHALATION 03/31/21 09/19/21 09/19/21 History mcg/actuation DAILY blister powder for inhalation atorvastatin 20 20 mg PO BEDTIME 09/19/21 09/19/21 09/18/21 History mg tablet gabapentin 800 mg 800 mg PO Q6H 09/19/21 09/19/21 09/19/21 History tablet metoclopramide 10 mg PO TIDAC 09/19/21 09/19/21 09/19/21 History HCl 10 mg tablet (Reglan) Physical Exam Verdana 4l Vital Signs and Narrative: Verdana 4d Verdana 4d Vital Signs: Verdana 4d Verdana 4Bd Last Vital Signs Verdana 4d Lan Analyst New 4d Lan Analyst New 4d Temp 98.6 F 09/19/21 16:44 Lan Analyst New 4d Pulse 107 H 09/19/21 22:57 Lan Analyst New 4d Resp 20 09/19/21 22:57 BP 149/68 H 09/19/21 22:57 Pulse Ox 95 09/19/21 22:57 BMI result Body Mass Index 30.2 Gen: Appears be in no acute distress HEENT: NCAT, Moist mucosa. Pulmonary: coarse breath sounds, bilateral expiratory wheezing noted CVS: Normal S1-S2 Abdomen: BS+, Soft, Nontender Extremities: Warm well perfused Neuro: Alert and awake. Results Labs CBC and Chem 7: 09/19/21 16:31 09/19/21 16:31 Labs: Laboratory Results - last 24 hr 09/19/21 09/19/21 09/19/21 16:14 16:31 16:31 MCV 91.4 MCH 29.5 MCHC 32.3 RDW 13.9 Plt Count 185 MPV 10.1 Immature Gran % (Auto) 0.3 Neut % (Auto) 74.5 H Lymph % (Auto) 16.1 L [place] % (Auto) 7.5 Eos % (Auto) 0.9 Baso % (Auto) 0.7 Lymph # (Auto) 1.4 [place] # (Auto) 0.7 Eos # (Auto) 0.1 Baso # (Auto) 0.1 Abs Immat Gran (auto) 0.03 Absolute Neuts (auto) 6.6 Absolute Nucleated RBC 0.000 Nucleated RBC % (auto) 0.0 Smear Tech's Comments VERIFIED D-Dimer High Sensitivty Anion Gap 18 Estim Creat Clear Calc 72.8 Estimated GFR > 60 POC Glucose Random Glucose 151 H Calcium 10.1 Phosphorus 2.9 Magnesium 1.6 Total Bilirubin 0.4 Direct Bilirubin < 0.2 AST 29 D ALT 41 H Alkaline Phosphatase 139 H Lactate Dehydrogenase 230 H C-Reactive Protein 2.17 H B-Natriuretic Peptide Total Protein 7.6 Albumin 4.6 Procalcitonin Urine Color YELLOW Urine Appearance CLEAR Urine pH 5.5 Ur Specific [place] <= 1.005 Urine Protein NEG Urine Glucose (UA) NEG Urine Ketones NEG Urine Blood NEG Urine Nitrite NEG Ur Leukocyte Esterase NEG Urine RBC 0-2 Urine WBC 1-4 Urine WBC Clumps NOTED Ur Squamous Epith Cells 1+ Urine Bacteria 3+ Urine Mucus TRACE Influenza Type A (PCR) Influenza Type B (PCR) RSV RNA Qual (PCR) SARS-CoV-2 RNA (RT-PCR) 09/19/21 09/19/21 09/19/21 16:31 16:31 16:31 MCV MCH MCHC RDW Plt Count MPV Immature Gran % (Auto) Neut % (Auto) Lymph % (Auto) [place] % (Auto) Eos % (Auto) Baso % (Auto) Lymph # (Auto) [place] # (Auto) Eos # (Auto) Baso # (Auto) Abs Immat Gran (auto) Absolute Neuts (auto) Absolute Nucleated RBC Nucleated RBC % (auto) Smear Tech's Comments D-Dimer High Sensitivty < 150 Anion Gap Estim Creat Clear Calc Estimated GFR POC Glucose Random Glucose Calcium Phosphorus Magnesium Total Bilirubin Direct Bilirubin AST ALT Alkaline Phosphatase Lactate Dehydrogenase C-Reactive Protein B-Natriuretic Peptide < 10 Total Protein Albumin Procalcitonin 0.10 Urine Color Urine Appearance Urine pH Ur Specific [place] Urine Protein Urine Glucose (UA) Urine Ketones Urine Blood Urine Nitrite Ur Leukocyte Esterase Urine RBC Urine WBC Urine WBC Clumps Ur Squamous Epith Cells Urine Bacteria Urine Mucus Influenza Type A (PCR) Influenza Type B (PCR) RSV RNA Qual (PCR) SARS-CoV-2 RNA (RT-PCR) 09/19/21 09/19/21 16:31 22:58 MCV MCH MCHC RDW Plt Count MPV Immature Gran % (Auto) Neut % (Auto) Lymph % (Auto) [place] % (Auto) Eos % (Auto) Baso % (Auto) Lymph # (Auto) [place] # (Auto) Eos # (Auto) Baso # (Auto) Abs Immat Gran (auto) Absolute Neuts (auto) Absolute Nucleated RBC Nucleated RBC % (auto) Smear Tech's Comments D-Dimer High Sensitivty Anion Gap Estim Creat Clear Calc Estimated GFR POC Glucose 449 H* Random Glucose Calcium Phosphorus Magnesium Total Bilirubin Direct Bilirubin AST ALT Alkaline Phosphatase Lactate Dehydrogenase C-Reactive Protein B-Natriuretic Peptide Total Protein Albumin Procalcitonin Urine Color Urine Appearance Urine pH Ur Specific [place] Urine Protein Urine Glucose (UA) Urine Ketones Urine Blood Urine Nitrite Ur Leukocyte Esterase Urine RBC Urine WBC Urine WBC Clumps Ur Squamous Epith Cells Urine Bacteria Urine Mucus Influenza Type A (PCR) NEGATIVE Influenza Type B (PCR) NEGATIVE RSV RNA Qual (PCR) POSITIVE A SARS-CoV-2 RNA (RT-PCR) NEGATIVE Imaging Radiologist's Impressions: Impressions Chest X-Ray 09/19/21 17:21 IMPRESSION: Suspect hazy airspace opacities in the right lower lobe which are nonspecific and could be related with subsegmental atelectasis, aspiration or developing infiltrates depending on the clinical context. Assessment and Plan (1) Type 2 diabetes mellitus without complication, without long-term current use of insulin: Status: Acute (2) COPD (chronic obstructive pulmonary disease): Status: Acute (3) RSV (respiratory syncytial virus infection): Status: Acute Plan 61-year-old female with a past medical history of hypertension, hyperlipidemia, diabetes, COPD, seasonal allergies; presented to the hospital today with a chief complaint of shortness of breath. Admitted for the following Acute hypoxic respiratory failure: Likely in the setting of pneumonia/ COPD exacerbation. Currently on supplemental oxygen. Goal oxygen saturation 93%. N ot in respiratory distress. Acute COPD exacerbation: Continue Solu-Medrol. DuoNeb standing and p.r.n.. Pneumonia: Continue ceftriaxone azithromycin. Follow up cultures. RSV positive: Supportive care. Droplet precautions. Diabetes/ hyperglycemia: Patient reported she had few sandwiches. Takes metformin at home. Not in DKA. Fingerstick glucose noted to be in high 400s. Will start the patient on Lantus plus insulin sliding scale. DVT prophylaxis: Lovenox Code status: Full code Quality Stroke Does the patient have a stroke diagnosis?: No VTE Prior VTE?: No VTE Risk Level:: Medical - moderate - high VTE Device Contraindication: Treatment Not Indicated VTE Drug Contraindication: N/A - Med Ordered
[2021-09-19] MEDS: Insulin Lispro 100 UNIT/ML 3 ML VIAL SUBCUT (23:57)
[2021-09-19] MEDS: Insulin Glargine,Hum.rec.anlog 100 UNIT/ML 10 ML VIAL 10 UNIT SUBCUT (23:58)
[2021-09-20] VITALS (10 sets, daily range): BP systolic 144–178; BP diastolic 59–85; PULSE 93–105; RESP 11–29; TEMP 36–36.7; O2SAT 91–97
[2021-09-20] MEDS: Gabapentin 400 MG CAPSULE 800 MG PO ×5 (00:49→22:00)
[2021-09-20] MEDS: methylPREDNISolone Sod Succ 40 MG/ML VIAL IVPUSH ×4 (00:50→22:04)
[2021-09-20] MEDS: 0.9 % Sodium Chloride Flush 3 ML SYRINGE IVFLUSH ×2 (00:50→07:29)
--- NOTE | 2021-09-20 00:58 | PC.NURSE ---
pt a&o, denies any increase sob or chest pain, medicated per Oct. placed bedside lead and pt back on monitor. Provided pt with wet cold towel per request. Notified JAVIER Benavides. Will continue to monitor.
[2021-09-20 07:18] LABS: Glucose, Whole Blood 252 mg/dL (60-115)
[2021-09-20] MEDS: Insulin Lispro 100 UNIT/ML 3 ML VIAL SUBCUT ×4 (07:28→22:07)
[2021-09-20] MEDS: Loratadine 10 MG TABLET PO (07:28)
[2021-09-20] MEDS: Metoclopramide HCl 10 MG TABLET PO ×3 (07:28→21:59)
[2021-09-20] MEDS: Cholecalciferol (Vitamin D3) 25 MCG TABLET 50 MCG PO (07:29)
[2021-09-20] MEDS: Omeprazole 20 MG CAPSULE.DR PO (07:29)
[2021-09-20 08:22] LABS: MANUAL DIFF FLAG NO
[2021-09-20 08:25] LABS: Basophils Percent Auto 0.2 % (0-2); Hematocrit 48.8 % (37.0-47.0); Hemoglobin 15.6 g/dl (12.0-16.0); Imm Gran Abs Auto 0.06 X10*3/uL (0.00-0.03); Imm Gran Pct Auto 0.5 % (0.0-0.4); Lymphocytes Percent Auto 8.6 % (20-40); Mean Corpuscular Hemoglobin 29.8 pg (27.0-33.0); Mean Corpuscular Volume 93.3 fL (80.0-98.0); Mean Platelet Volume 10.1 fL (9.4-12.3); Monocytes Absolute Auto 0.3 X10*3/uL (0.1-1.2); Monocytes Percent Auto 2.3 % (2-11); Neutrophils Absolute Auto 10.4 x10*3/uL (2.0-8.3); Neutrophils Percent Auto 88.4 % (45-73); Platelet Count 245 X10*3/uL (160-400); Red Blood Count 5.23 X10*6/uL (4.20-5.50); Red Cell Distribution Width 13.9 % (11.0-16.0); White Blood Count 11.7 X10*3/uL (4.8-10.8)
[2021-09-20] MEDS: Albuterol/Iprat 2.5/0.5MG 3 ML AMPUL.NEB INHALE ×4 (08:55→20:37)
[2021-09-20 09:12] LABS: Alanine Aminotransferase 45 U/L (0-31); Albumin Level 4.5 g/dL (3.5-5.0); Alkaline Phosphatase 127 U/L (39-117); Anion Gap 16 (12-20); Aspartate Amino Transferase 30 U/L (5-31); Bilirubin Total 0.5 mg/dL (0.0-1.0); Blood Urea Nitrogen 14 mg/dL (9-16); Calcium 10.1 mg/dL (8.4-10.2); Carbon Dioxide 26 mmol/L (22-29); Chloride 100 mmol/L (96-108); Creatinine Clr Calc Pharmacy 65.5; Estimated Glomerular Filt Rate > 60; Glucose Random 385 mg/dL (60-115); Potassium 4.5 mmol/L (3.3-5.1); Sodium 137 mmol/L (135-145); Total Protein 7.2 g/dL (6.5-8.0)
--- NOTE | 2021-09-20 11:34 | P.PNIM_ITS ---
Subjective Subjective Date of Service: 09/20/21 Interval History: Still feels wheezy + dyspneic On 4L O2 via NC, SaO2 91% Coughing No chest pain No fever Review of Systems Review of Systems: Yes all other systems are reviewed and are negative Physical Exam Verdana 4l Vital Signs: Verdana 4d Verdana 4d Vital Signs: Verdana 4d Verdana 4Bd Last Vital Signs Verdana 4d Shade Bander New 4d Shade Bander New 4d Temp 96.8 F 09/20/21 01:25 Shade Bander New 4d Pulse 96 09/20/21 09:01 Shade Bander New 4d Resp 29 H 09/20/21 09:01 BP 164/73 H 09/20/21 07:11 Pulse Ox 93 09/20/21 07:11 BMI result Body Mass Index 30.2 Gen: mild resp distress HEENT: sclera anicteric, moist mucus membranes Neck: supple Lungs: bilateral exp wheezes, prolonged exp phase Heart: regular rate and rhythm, no murmurs Abd: soft, non-tender, non-distended Ext: no edema Skin: warm/well-perfused Neuro: alert and oriented x3, no focal findings Psych: appropriate affect Objective Data Active Medications Acetaminophen (Acetaminophen 325 Mg Tablet) 650 mg PO Q6H PRN PRN Reason: Pain, Mild (Pain Scale 1-3) Albuterol Sulfate (Albuterol Sulfate (0.083%) 2.5 Mg/3 Ml Vial.Neb) 2.5 mg INHALE Q2H PRN PRN Reason: Shortness of Breath/Wheezing Albuterol/Ipratropium (Albuterol/Iprat 2.5/0.5mg 3 Ml Ampul.Neb) 3 ml INHALE RQ4H WHILE AWAKE [facility] Last Admin: 09/20/21 08:55 Dose: 3 ml Documented by: FELICIA Amitriptyline HCl (Amitriptyline Hcl 50 Mg Tablet) 50 mg PO BEDTIME MOU[facility]AP[facility] Aspirin (Aspirin Enteric Coated 81 Mg Tablet.) 81 mg PO BEDTIME [facility] Atorvastatin Calcium (Atorvastatin Calcium 20 Mg Tablet) 20 mg PO BEDTIME [facility] Azithromycin (Azithromycin 500 Mg Tablet) 500 mg PO Q24H [facility] Dextrose (Dextrose 50 % 25 Gm/50 Ml Syringe) 25 gm IVPUSH Q15M PRN; Protocol PRN Reason: per Hypoglycemia Standing Ord. Enoxaparin Sodium (Enoxaparin Sodium 40 Mg/0.4 Ml Syringe) 40 mg SUBCUT Q24H [facility] Last Admin: 09/20/21 07:29 Dose: Not Given Documented by: TIMOTHY Non-Admin Reason: Patient Refused Gabapentin (Gabapentin 400 Mg Capsule) 800 mg PO Q6H [facility] Last Admin: 09/20/21 06:40 Dose: 800 mg Documented by: LELAND Glucose (Glucose Gel 15 Gm Gel..Gram.) 15 gm PO Q15M PRN; Protocol PRN Reason: per Hypoglycemia Standing Ord. Ceftriaxone Sodium 1 gm/ (Sodium Chloride) 100 mls @ 200 mls/hr IV Q24H [facility] Insulin Glargine (Insulin Glargine,Hum.Rec.Anlog 100 Unit/Ml 10 Ml Vial) 10 unit SUBCUT BEDTIME [facility] Last Admin: 09/19/21 23:58 Dose: 10 unit Documented by: ERIK Insulin Human Lispro (Insulin Lispro 100 Unit/Ml 3 Ml Vial) 0 unit SUBCUT QIDACHS [facility]; Protocol Last Admin: 09/20/21 07:28 Dose: 6 unit Documented by: TIMOTHY Loratadine (Loratadine 10 Mg Tablet) 10 mg PO DAILY [facility] Last Admin: 09/20/21 07:28 Dose: 10 mg Documented by: TIMOTHY Melatonin (Melatonin 3 Mg Tablet) 6 mg PO BEDTIME PRN PRN Reason: Insomnia Methylprednisolone Sodium Succinate (Methylprednisolone Sod Succ 40 Mg/Ml Vial) 40 mg IVPUSH Q12H [facility] Last Admin: 09/20/21 08:36 Dose: 40 mg Documented by: TIMOTHY Metoclopramide HCl (Metoclopramide Hcl 10 Mg Tablet) 10 mg PO TIDAC [facility] Last Admin: 09/20/21 07:28 Dose: 10 mg Documented by: TIMOTHY Omeprazole (Omeprazole 20 Mg Capsule.Dr) 20 mg PO DAILY [facility] Last Admin: 09/20/21 07:29 Dose: 20 mg Documented by: TIMOTHY Pharmacy Consult (Consult Rx Perform Med Rec) 1 each MISCELLANE ONCE PRN PRN Reason: Consult order Senna (Sennosides 8.6 Mg Tablet) 17.2 mg PO BEDTIME PRN PRN Reason: Constipation Sodium Chloride (0.9 % Sodium Chloride Flush 3 Ml Syringe) 3 ml IVFLUSH QSHIFT [facility] Last Admin: 09/20/21 07:29 Dose: 3 ml Documented by: TIMOTHY Tiotropium [place] (Tiotropium [place] 18 Mcg Cap.W.Dev) 1 puff INHALE RDAILY [facility] Vitamin D (Cholecalciferol (Vitamin D3) 25 Mcg Tablet) 50 mcg PO DAILY [facility] Last Admin: 09/20/21 07:29 Dose: 50 mcg Documented by: TIMOTHY Labs CBC & Chem 7: 09/20/21 08:13 09/20/21 08:13 Labs: Laboratory Results - last 24 hr 09/19/21 09/19/21 09/19/21 16:14 16:31 16:31 MCV 91.4 MCH 29.5 MCHC 32.3 RDW 13.9 Plt Count 185 MPV 10.1 Immature Gran % (Auto) 0.3 Neut % (Auto) 74.5 H Lymph % (Auto) 16.1 L [place] % (Auto) 7.5 Eos % (Auto) 0.9 Baso % (Auto) 0.7 Lymph # (Auto) 1.4 [place] # (Auto) 0.7 Eos # (Auto) 0.1 Baso # (Auto) 0.1 Abs Immat Gran (auto) 0.03 Absolute Neuts (auto) 6.6 Absolute Nucleated RBC 0.000 Nucleated RBC % (auto) 0.0 Smear Tech's Comments VERIFIED D-Dimer High Sensitivty Anion Gap 18 Estim Creat Clear Calc 72.8 Estimated GFR > 60 POC Glucose Random Glucose 151 H Calcium 10.1 Phosphorus 2.9 Magnesium 1.6 Total Bilirubin 0.4 Direct Bilirubin < 0.2 AST 29 D ALT 41 H Alkaline Phosphatase 139 H Lactate Dehydrogenase 230 H C-Reactive Protein 2.17 H B-Natriuretic Peptide Total Protein 7.6 Albumin 4.6 Procalcitonin Urine Color YELLOW Urine Appearance CLEAR Urine pH 5.5 Ur Specific [place] <= 1.005 Urine Protein NEG Urine Glucose (UA) NEG Urine Ketones NEG Urine Blood NEG Urine Nitrite NEG Ur Leukocyte Esterase NEG Urine RBC 0-2 Urine WBC 1-4 Urine WBC Clumps NOTED Ur Squamous Epith Cells 1+ Urine Bacteria 3+ Urine Mucus TRACE Influenza Type A (PCR) Influenza Type B (PCR) RSV RNA Qual (PCR) SARS-CoV-2 RNA (RT-PCR) 09/19/21 09/19/21 09/19/21 16:31 16:31 16:31 MCV MCH MCHC RDW Plt Count MPV Immature Gran % (Auto) Neut % (Auto) Lymph % (Auto) [place] % (Auto) Eos % (Auto) Baso % (Auto) Lymph # (Auto) [place] # (Auto) Eos # (Auto) Baso # (Auto) Abs Immat Gran (auto) Absolute Neuts (auto) Absolute Nucleated RBC Nucleated RBC % (auto) Smear Tech's Comments D-Dimer High Sensitivty < 150 Anion Gap Estim Creat Clear Calc Estimated GFR POC Glucose Random Glucose Calcium Phosphorus Magnesium Total Bilirubin Direct Bilirubin AST ALT Alkaline Phosphatase Lactate Dehydrogenase C-Reactive Protein B-Natriuretic Peptide < 10 Total Protein Albumin Procalcitonin 0.10 Urine Color Urine Appearance Urine pH Ur Specific [place] Urine Protein Urine Glucose (UA) Urine Ketones Urine Blood Urine Nitrite Ur Leukocyte Esterase Urine RBC Urine WBC Urine WBC Clumps Ur Squamous Epith Cells Urine Bacteria Urine Mucus Influenza Type A (PCR) Influenza Type B (PCR) RSV RNA Qual (PCR) SARS-CoV-2 RNA (RT-PCR) 09/19/21 09/19/21 09/20/21 16:31 22:58 07:09 MCV MCH MCHC RDW Plt Count MPV Immature Gran % (Auto) Neut % (Auto) Lymph % (Auto) [place] % (Auto) Eos % (Auto) Baso % (Auto) Lymph # (Auto) [place] # (Auto) Eos # (Auto) Baso # (Auto) Abs Immat Gran (auto) Absolute Neuts (auto) Absolute Nucleated RBC Nucleated RBC % (auto) Smear Tech's Comments D-Dimer High Sensitivty Anion Gap Estim Creat Clear Calc Estimated GFR POC Glucose 449 H* 252 H Random Glucose Calcium Phosphorus Magnesium Total Bilirubin Direct Bilirubin AST ALT Alkaline Phosphatase Lactate Dehydrogenase C-Reactive Protein B-Natriuretic Peptide Total Protein Albumin Procalcitonin Urine Color Urine Appearance Urine pH Ur Specific [place] Urine Protein Urine Glucose (UA) Urine Ketones Urine Blood Urine Nitrite Ur Leukocyte Esterase Urine RBC Urine WBC Urine WBC Clumps Ur Squamous Epith Cells Urine Bacteria Urine Mucus Influenza Type A (PCR) NEGATIVE Influenza Type B (PCR) NEGATIVE RSV RNA Qual (PCR) POSITIVE A SARS-CoV-2 RNA (RT-PCR) NEGATIVE 09/20/21 09/20/21 08:13 08:13 MCV 93.3 MCH 29.8 MCHC 32.0 RDW 13.9 Plt Count 245 D MPV 10.1 Immature Gran % (Auto) 0.5 H Neut % (Auto) 88.4 H Lymph % (Auto) 8.6 L [place] % (Auto) 2.3 Eos % (Auto) 0.0 Baso % (Auto) 0.2 Lymph # (Auto) 1.0 L [place] # (Auto) 0.3 Eos # (Auto) 0.0 Baso # (Auto) 0.0 Abs Immat Gran (auto) 0.06 H Absolute Neuts (auto) 10.4 H Absolute Nucleated RBC 0.000 Nucleated RBC % (auto) 0.0 Smear Tech's Comments D-Dimer High Sensitivty Anion Gap 16 Estim Creat Clear Calc 65.5 Estimated GFR > 60 POC Glucose Random Glucose 385 H* Calcium 10.1 Phosphorus Magnesium Total Bilirubin 0.5 Direct Bilirubin AST 30 ALT 45 H Alkaline Phosphatase 127 H Lactate Dehydrogenase C-Reactive Protein B-Natriuretic Peptide Total Protein 7.2 Albumin 4.5 Procalcitonin Urine Color Urine Appearance Urine pH Ur Specific [place] Urine Protein Urine Glucose (UA) Urine Ketones Urine Blood Urine Nitrite Ur Leukocyte Esterase Urine RBC Urine WBC Urine WBC Clumps Ur Squamous Epith Cells Urine Bacteria Urine Mucus Influenza Type A (PCR) Influenza Type B (PCR) RSV RNA Qual (PCR) SARS-CoV-2 RNA (RT-PCR) Impressions Chest X-Ray 09/19/21 17:21 IMPRESSION: Suspect hazy airspace opacities in the right lower lobe which are nonspecific and could be related with subsegmental atelectasis, aspiration or developing infiltrates depending on the clinical context. Microbiology Microbiology Results: Microbiology 09/19/21 16:14 Urine Culture - Preliminary Urine clean catch - Urine bone top Culture too young to evaluate. Assessment and Plan (1) RSV (respiratory syncytial virus infection): Status: Acute (2) COPD (chronic obstructive pulmonary disease): Status: Acute Plan hospital d#2 61yo F with HLD, DM2, COPD presenting with dyspnea and admitted for hypoxia from RSV PNA, COPD exacerbation # acute hypoxic resp failure - wean O2 as tolerated, check VBG in am to check for CO2 retention # COPD exacerbation - wean steroids as tolerated, continue LAMA, standing/prn nebs # RSV pneumonia - isolations precautions, on d#2 of ceftriaxone + azithromycin but if PCT remains low tomorrow will d/c ABX # DM2 with hyperglycemia - basal/bolus insulin; on MTF at home; check A1c; watch for steroid-induced hyperglycemia # HLD - continue atorvastatin # tobacco abuse - NRT # VTE ppx - LMWH Quality Stroke Does the patient have a stroke diagnosis?: No VTE Prior VTE?: No VTE Risk Level:: Medical - moderate - high VTE Device Contraindication: Treatment Not Indicated VTE Drug Contraindication: N/A - Med Ordered
[2021-09-20 13:11] LABS: Glucose, Whole Blood 329 mg/dL (60-115)
[2021-09-20] MEDS: Nicotine 14 MG PATCH.TD24 TRANSDERMA (13:15)
--- NOTE | 2021-09-20 13:19 | PC.NURSE ---
pt reporting increasing in shakiness having difficulty holding glass of water. this rn to [facility] provider for further instructions
[2021-09-20 14:19] LABS: Glucose, Whole Blood 404 mg/dL (60-115)
[2021-09-20] MEDS: Insulin Regular, Human 100 UNIT/ML 3 ML VIAL 10 UNIT IVPUSH (14:46)
[2021-09-20 16:24] LABS: Glucose, Whole Blood 243 mg/dL (60-115)
[2021-09-20 18:33] LABS: Glucose, Whole Blood 298 mg/dL (60-115)
--- NOTE | 2021-09-20 20:10 | PC.NURSE ---
Assumed care of pt at 1900. Pt tolerating PO intake, x 1 assist to commode d/t increasing SOB. Awaiting inpatient bed assignment
[2021-09-20 21:32] LABS: Glucose, Whole Blood 369 mg/dL (60-115)
[2021-09-20] MEDS: Atorvastatin Calcium 20 MG TABLET PO (21:59)
[2021-09-20] MEDS: Azithromycin 500 MG TABLET PO (22:00)
[2021-09-20] MEDS: Aspirin Enteric Coated 81 MG TABLET.DR PO (22:00)
[2021-09-20] MEDS: Amitriptyline HCl 50 MG TABLET PO (22:00)
[2021-09-20] MEDS: Melatonin 3 MG TABLET 6 MG PO (22:01)
[2021-09-20] MEDS: cefTRIAXone sodium 1 GM in 0.9 % Sodium Chloride 100 ML IV (22:04)
[2021-09-20] MEDS: Sennosides 8.6 MG TABLET 17.2 MG PO (22:04)
[2021-09-20] MEDS: Insulin Glargine,Hum.rec.anlog 100 UNIT/ML 10 ML VIAL 15 UNIT SUBCUT (22:08)
[2021-09-21] VITALS (9 sets, daily range): BP systolic 133–166; BP diastolic 66–92; PULSE 83–96; RESP 12–22; TEMP 36.4–36.6; O2SAT 85–95
--- NOTE | 2021-09-21 00:05 | PC.NURSE ---
Pt O2 sat 89% on 4L NC while sleeping, audible expiratory wheeze noted on assessment. Placed on venti mask w/ sat increase to 93%
--- NOTE | 2021-09-21 00:22 | PC.NURSE ---
Pt now requiring venturi mask 10L to maintain sat 93%, respiratory therapist notified for reeval
--- NOTE | 2021-09-21 00:29 | PC.NURSE ---
Pt sat slowly increasing, weaned to 5L venturi mask, will return to NC as tolerated
--- NOTE | 2021-09-21 00:39 | PC.NURSE ---
Pt sat 93% on 4L venturi mask, per RT okay to keep mask for oxygenation while sleeping
[2021-09-21] MEDS: Gabapentin 400 MG CAPSULE 800 MG PO ×4 (05:15→22:35)
[2021-09-21 07:32] LABS: Glucose, Whole Blood 285 mg/dL (60-115)
[2021-09-21 07:56] LABS: Hematocrit 47.4 % (37.0-47.0); Hemoglobin 15.1 g/dl (12.0-16.0); Mean Corpuscular HGB Conc 31.9 g/dl (31.0-35.0); Mean Corpuscular Hemoglobin 29.7 pg (27.0-33.0); Mean Corpuscular Volume 93.3 fL (80.0-98.0); Mean Platelet Volume 9.9 fL (9.4-12.3); Platelet Count 244 X10*3/uL (160-400); Red Blood Count 5.08 X10*6/uL (4.20-5.50); White Blood Count 14.8 X10*3/uL (4.8-10.8)
[2021-09-21 07:58] LABS: VBG Base Excess 7.2 mmol/L; VBG HCO3 33 mmol/L (22-26); VBG pCO2 52 mmHg; VBG pH 7.41 (7.32-7.43); VBG pO2 57 mmHg
[2021-09-21 08:00] LABS: Venous Blood Gas Refer to POC result
[2021-09-21] MEDS: Enoxaparin Sodium 40 MG/0.4 ML SYRINGE SUBCUT (08:08)
[2021-09-21] MEDS: Omeprazole 20 MG CAPSULE.DR PO (08:09)
[2021-09-21] MEDS: Loratadine 10 MG TABLET PO (08:09)
[2021-09-21] MEDS: methylPREDNISolone Sod Succ 40 MG/ML VIAL IVPUSH ×2 (08:09→20:52)
[2021-09-21] MEDS: Insulin Lispro 100 UNIT/ML 3 ML VIAL SUBCUT ×4 (08:09→20:50)
[2021-09-21] MEDS: Cholecalciferol (Vitamin D3) 25 MCG TABLET 50 MCG PO (08:09)
--- NOTE | 2021-09-21 08:14 | PC.NURSE ---
POC 285
[2021-09-21 08:19] LABS: Anion Gap 18 (12-20); Blood Urea Nitrogen 16 mg/dL (9-16); Calcium 10.3 mg/dL (8.4-10.2); Carbon Dioxide 29 mmol/L (22-29); Chloride 98 mmol/L (96-108); Creatinine Clr Calc Pharmacy 68.4; Estimated Glomerular Filt Rate > 60; Glucose Random 290 mg/dL (60-115); Potassium 4.7 mmol/L (3.3-5.1); Sodium 140 mmol/L (135-145)
[2021-09-21 08:39] LABS: Procalcitonin 0.06 ng/mL
[2021-09-21] MEDS: Albuterol/Iprat 2.5/0.5MG 3 ML AMPUL.NEB INHALE (08:51)
[2021-09-21] MEDS: Benzonatate 100 MG CAPSULE 200 MG PO ×2 (09:10→18:19)
[2021-09-21] MEDS: Metoclopramide HCl 10 MG TABLET PO ×3 (09:10→18:19)
[2021-09-21] MEDS: Nicotine 14 MG PATCH.TD24 TRANSDERMA (09:10)
--- NOTE | 2021-09-21 10:54 | HO.PM.IMPN ---
Subjective Subjective Date of Service: 09/21/21 Interval History: Less hypoxic. Still dyspneic + coughing No longer wheezing Review of Systems Review of Systems: Yes all other systems are reviewed and are negative Physical Exam Vital Signs: Vital Signs: Last Vital Signs Temp 98 F 09/20/21 20:07 Pulse 91 09/21/21 08:52 Resp 21 H 09/21/21 08:52 BP 133/66 09/21/21 08:00 Pulse Ox 92 09/21/21 08:00 BMI result Body Mass Index 30.2 Gen: NAD HEENT: sclera anicteric, moist mucus membranes Neck: supple Lungs: diminished Heart: regular rate and rhythm, no murmurs Abd: soft, non-tender, non-distended Ext: no edema Skin: warm/well-perfused Neuro: alert and oriented x3, no focal findings Psych: appropriate affect Objective Data Active Medications Acetaminophen (Acetaminophen 325 Mg Tablet) 650 mg PO Q6H PRN PRN Reason: Pain, Mild (Pain Scale 1-3) Albuterol Sulfate (Albuterol Sulfate (0.083%) 2.5 Mg/3 Ml Vial.Neb) 2.5 mg INHALE Q2H PRN PRN Reason: Shortness of Breath/Wheezing Albuterol/Ipratropium (Albuterol/Iprat 2.5/0.5mg 3 Ml Ampul.Neb) 3 ml INHALE RQ4H WHILE AWAKE [facility] Last Admin: 09/21/21 08:51 Dose: 3 ml Documented by: FELICIA Amitriptyline HCl (Amitriptyline Hcl 50 Mg Tablet) 50 mg PO BEDTIME [facility] Last Admin: 09/20/21 22:00 Dose: 50 mg Documented by: ERIK Aspirin (Aspirin Enteric Coated 81 Mg Tablet.) 81 mg PO BEDTIME [facility] Last Admin: 09/20/21 22:00 Dose: 81 mg Documented by: ERIK Atorvastatin Calcium (Atorvastatin Calcium 20 Mg Tablet) 20 mg PO BEDTIME [facility] Last Admin: 09/20/21 21:59 Dose: 20 mg Documented by: ERIK Azithromycin (Azithromycin 500 Mg Tablet) 500 mg PO Q24H [facility] Last Admin: 09/20/21 22:00 Dose: 500 mg Documented by: ERIK Benzonatate (Benzonatate 100 Mg Capsule) 200 mg PO TID PRN PRN Reason: cough Last Admin: 09/21/21 09:10 Dose: 200 mg Documented by: RENU Dextrose (Dextrose 50 % 25 Gm/50 Ml Syringe) 25 gm IVPUSH Q15M PRN; Protocol PRN Reason: per Hypoglycemia Standing Ord. Enoxaparin Sodium (Enoxaparin Sodium 40 Mg/0.4 Ml Syringe) 40 mg SUBCUT Q24H [facility] Last Admin: 09/21/21 08:08 Dose: 40 mg Documented by: RENU Gabapentin (Gabapentin 400 Mg Capsule) 800 mg PO Q6H [facility] Last Admin: 09/21/21 05:15 Dose: 800 mg Documented by: ERIK Glucose (Glucose Gel 15 Gm Gel..Gram.) 15 gm PO Q15M PRN; Protocol PRN Reason: per Hypoglycemia Standing Ord. Ceftriaxone Sodium 1 gm/ (Sodium Chloride) 100 mls @ 200 mls/hr IV Q24H [facility] Last Infusion: 09/20/21 22:56 Dose: 0 mls/hr Documented by: ERIK Insulin Glargine (Insulin Glargine,Hum.Rec.Anlog 100 Unit/Ml 10 Ml Vial) 20 unit SUBCUT BEDTIME [facility] Insulin Human Lispro (Insulin Lispro 100 Unit/Ml 3 Ml Vial) 0 unit SUBCUT QIDACHS [facility]; Protocol Last Admin: 09/21/21 08:09 Dose: 9 unit Documented by: RENU Loratadine (Loratadine 10 Mg Tablet) 10 mg PO DAILY [facility] Last Admin: 09/21/21 08:09 Dose: 10 mg Documented by: RENU Melatonin (Melatonin 3 Mg Tablet) 6 mg PO BEDTIME PRN PRN Reason: Insomnia Last Admin: 09/20/21 22:01 Dose: 6 mg Documented by: ERIK Methylprednisolone Sodium Succinate (Methylprednisolone Sod Succ 40 Mg/Ml Vial) 40 mg IVPUSH Q12H [facility] Last Admin: 09/21/21 08:09 Dose: 40 mg Documented by: RENU Metoclopramide HCl (Metoclopramide Hcl 10 Mg Tablet) 10 mg PO TIDAC [facility] Last Admin: 09/21/21 09:10 Dose: 10 mg Documented by: RENU Nicotine (Nicotine 14 Mg Patch.Td24) 14 mg TRANSDERMA DAILY [facility] Last Admin: 09/21/21 09:10 Dose: 14 mg Documented by: RENU Omeprazole (Omeprazole 20 Mg Capsule.Dr) 20 mg PO DAILY [facility] Last Admin: 09/21/21 08:09 Dose: 20 mg Documented by: RENU Pharmacy Consult (Consult Rx Perform Med Rec) 1 each MISCELLANE ONCE PRN PRN Reason: Consult order Senna (Sennosides 8.6 Mg Tablet) 17.2 mg PO BEDTIME PRN PRN Reason: Constipation Last Admin: 09/20/21 22:04 Dose: 17.2 mg Documented by: ERIK Sodium Chloride (0.9 % Sodium Chloride Flush 3 Ml Syringe) 3 ml IVFLUSH QSHIFT [facility] Last Admin: 09/21/21 08:23 Dose: Not Given Documented by: RENU Non-Admin Reason: Previously Administered Tiotropium [place] (Tiotropium [place] 18 Mcg Cap.W.Dev) 1 puff INHALE RDAILY [facility] Vitamin D (Cholecalciferol (Vitamin D3) 25 Mcg Tablet) 50 mcg PO DAILY [facility] Last Admin: 09/21/21 08:09 Dose: 50 mcg Documented by: RENU Labs CBC & Chem 7: 09/21/21 07:49 09/21/21 07:49 Labs: Laboratory Results - last 24 hr 09/20/21 09/20/21 09/20/21 12:54 14:14 16:18 MCV MCH MCHC RDW Plt Count MPV Absolute Nucleated RBC Nucleated RBC % (auto) VBG pH VBG pCO2 VBG pO2 VBG HCO3 VBG O2 Saturation VBG Base Excess Anion Gap Estim Creat Clear Calc Estimated GFR POC Glucose 329 H 404 H* 243 H Random Glucose Calcium Procalcitonin 09/20/21 09/20/21 09/21/21 18:27 21:27 07:24 MCV MCH MCHC RDW Plt Count MPV Absolute Nucleated RBC Nucleated RBC % (auto) VBG pH VBG pCO2 VBG pO2 VBG HCO3 VBG O2 Saturation VBG Base Excess Anion Gap Estim Creat Clear Calc Estimated GFR POC Glucose 298 H 369 H* 285 H Random Glucose Calcium Procalcitonin 09/21/21 09/21/21 09/21/21 07:49 07:49 07:49 MCV 93.3 MCH 29.7 MCHC 31.9 RDW 14.0 Plt Count 244 MPV 9.9 Absolute Nucleated RBC 0.000 Nucleated RBC % (auto) 0.0 VBG pH VBG pCO2 VBG pO2 VBG HCO3 VBG O2 Saturation VBG Base Excess Anion Gap 18 Estim Creat Clear Calc 68.4 Estimated GFR > 60 POC Glucose Random Glucose 290 H Calcium 10.3 H Procalcitonin 0.06 09/21/21 07:52 MCV MCH MCHC RDW Plt Count MPV Absolute Nucleated RBC Nucleated RBC % (auto) VBG pH 7.41 VBG pCO2 52 VBG pO2 57 VBG HCO3 33 H VBG O2 Saturation 80.0 VBG Base Excess 7.2 Anion Gap Estim Creat Clear Calc Estimated GFR POC Glucose Random Glucose Calcium Procalcitonin Microbiology Microbiology Results: Microbiology 09/19/21 16:14 Urine Culture - Final Urine clean catch - Urine bone top Assessment and Plan (1) RSV (respiratory syncytial virus infection): Status: Acute (2) COPD (chronic obstructive pulmonary disease): Status: Acute Plan hospital d#3 61yo F with HLD, DM2, COPD presenting with dyspnea and admitted for hypoxia from RSV PNA, COPD exacerbation # acute hypoxic resp failure - wean O2 as tolerated # COPD exacerbation - wean steroids as tolerated, continue LAMA, prn nebs, azithromycin as below # RSV pneumonia - isolation precautions, d/c ceftriaxone given low PCT, continue azithromycin # DM2 with hyperglycemia - increase basal/bolus insulin; on MTF at home; check A1c; watch for steroid-induced hyperglycemia # HLD - continue atorvastatin # tobacco abuse - NRT # VTE ppx - LMWH Quality Stroke Does the patient have a stroke diagnosis?: No VTE Prior VTE?: No VTE Risk Level:: Medical - moderate - high VTE Device Contraindication: Treatment Not Indicated VTE Drug Contraindication: N/A - Med Ordered
[2021-09-21 12:05] LABS: Glucose, Whole Blood 268 mg/dL (60-115)
[2021-09-21 17:38] LABS: Glucose, Whole Blood 246 mg/dL (60-115)
--- NOTE | 2021-09-21 20:30 | PC.NURSE ---
Assumed care of pt Pt resting on hospital bed Pt toleratin 2L NC with O2 at 90-93% Pt medicated per OCT NAD Will continue to monitor
[2021-09-21 20:32] LABS: Glucose, Whole Blood 265 mg/dL (60-115)
[2021-09-21] MEDS: Insulin Glargine,Hum.rec.anlog 100 UNIT/ML 10 ML VIAL 20 UNIT SUBCUT (20:50)
[2021-09-21] MEDS: Acetaminophen 325 MG TABLET 650 MG PO (20:51)
[2021-09-21] MEDS: Azithromycin 500 MG TABLET PO (20:51)
[2021-09-21] MEDS: Atorvastatin Calcium 20 MG TABLET PO (20:51)
[2021-09-21] MEDS: Melatonin 3 MG TABLET 6 MG PO (20:51)
[2021-09-21] MEDS: Aspirin Enteric Coated 81 MG TABLET.DR PO (20:51)
[2021-09-21] MEDS: Amitriptyline HCl 50 MG TABLET PO (20:52)
[2021-09-22] MEDS: Gabapentin 400 MG CAPSULE 800 MG PO ×4 (04:50→23:35)
[2021-09-22 05:06] VITALS: BP 166/92; PULSE 80; RESP 22; O2SAT 93
--- NOTE | 2021-09-22 05:17 | PC.NURSE ---
Pt assisted to bedside commode. Pt stable on feet with x1 assist Pt back on hospital bed Pt medicated per OCT NAD Will continue to monitor
[2021-09-22 07:33] LABS: Estimated Average Glucose 189 mg/dL; Hemoglobin A1c % 8.2 %
[2021-09-22 07:49] LABS: Glucose, Whole Blood 210 mg/dL (60-115)
[2021-09-22] MEDS: Enoxaparin Sodium 40 MG/0.4 ML SYRINGE SUBCUT (08:12)
[2021-09-22] MEDS: Loratadine 10 MG TABLET PO (08:12)
[2021-09-22] MEDS: Omeprazole 20 MG CAPSULE.DR PO (08:12)
[2021-09-22] MEDS: Insulin Lispro 100 UNIT/ML 3 ML VIAL SUBCUT ×2 (08:12→13:08)
[2021-09-22] MEDS: Cholecalciferol (Vitamin D3) 25 MCG TABLET 50 MCG PO (08:13)
[2021-09-22] MEDS: 0.9 % Sodium Chloride Flush 3 ML SYRINGE IVFLUSH ×2 (08:13→18:10)
[2021-09-22] MEDS: Nicotine 14 MG PATCH.TD24 TRANSDERMA (08:13)
[2021-09-22] MEDS: Metoclopramide HCl 10 MG TABLET PO ×3 (08:13→18:15)
[2021-09-22 08:56] VITALS: PULSE 90; RESP 16; O2SAT 91
--- NOTE | 2021-09-22 09:45 | HO.PM.IMPN ---
Subjective Subjective Date of Service: 09/22/21 Interval History: Breathing improved, saturating 93% on 1.5L NC Still wheezing Review of Systems Review of Systems: Yes all other systems are reviewed and are negative Physical Exam Vital Signs: Vital Signs: Last Vital Signs Temp 97.8 F 09/21/21 22:41 Pulse 90 09/22/21 08:56 Resp 16 09/22/21 08:56 BP 166/92 H 09/22/21 05:06 Pulse Ox 93 09/22/21 05:06 BMI result Body Mass Index 30.2 Gen: NAD HEENT: sclera anicteric, moist mucus membranes Neck: supple Lungs: diminished, exp wheezing Heart: regular rate and rhythm, no murmurs Abd: soft, non-tender, non-distended Ext: no edema Skin: warm/well-perfused Neuro: alert and oriented x3, no focal findings Psych: appropriate affect Objective Data Active Medications Acetaminophen (Acetaminophen 325 Mg Tablet) 650 mg PO Q6H PRN PRN Reason: Pain, Mild (Pain Scale 1-3) Last Admin: 09/21/21 20:51 Dose: 650 mg Documented by: RUBÉN Albuterol/Ipratropium (Albuterol/Iprat 2.5/0.5mg 3 Ml Ampul.Neb) 3 ml INHALE RQ4H PRN PRN Reason: Shortness of Breath/Wheezing Amitriptyline HCl (Amitriptyline Hcl 50 Mg Tablet) 50 mg PO BEDTIME [facility] Last Admin: 09/21/21 20:52 Dose: 50 mg Documented by: RUBÉN Aspirin (Aspirin Enteric Coated 81 Mg Tablet.) 81 mg PO BEDTIME [facility] Last Admin: 09/21/21 20:51 Dose: 81 mg Documented by: RUBÉN Atorvastatin Calcium (Atorvastatin Calcium 20 Mg Tablet) 20 mg PO BEDTIME [facility] Last Admin: 09/21/21 20:51 Dose: 20 mg Documented by: RUBÉN Azithromycin (Azithromycin 500 Mg Tablet) 500 mg PO Q24H [facility] Last Admin: 09/21/21 20:51 Dose: 500 mg Documented by: RUBÉN Benzonatate (Benzonatate 100 Mg Capsule) 200 mg PO TID PRN PRN Reason: cough Last Admin: 09/21/21 18:19 Dose: 200 mg Documented by: RENU Dextrose (Dextrose 50 % 25 Gm/50 Ml Syringe) 25 gm IVPUSH Q15M PRN; Protocol PRN Reason: per Hypoglycemia Standing Ord. Enoxaparin Sodium (Enoxaparin Sodium 40 Mg/0.4 Ml Syringe) 40 mg SUBCUT Q24H [facility] Last Admin: 09/22/21 08:12 Dose: 40 mg Documented by: JUVENAL Gabapentin (Gabapentin 400 Mg Capsule) 800 mg PO Q6H [facility] Last Admin: 09/22/21 04:50 Dose: 800 mg Documented by: RUBÉN Glucose (Glucose Gel 15 Gm Gel..Gram.) 15 gm PO Q15M PRN; Protocol PRN Reason: per Hypoglycemia Standing Ord. Insulin Glargine (Insulin Glargine,Hum.Rec.Anlog 100 Unit/Ml 10 Ml Vial) 24 unit SUBCUT BEDTIME [facility] Insulin Human Lispro (Insulin Lispro 100 Unit/Ml 3 Ml Vial) 0 unit SUBCUT QIDACHS [facility]; Protocol Last Admin: 09/22/21 08:12 Dose: 8 unit Documented by: JUVENAL Loratadine (Loratadine 10 Mg Tablet) 10 mg PO DAILY [facility] Last Admin: 09/22/21 08:12 Dose: 10 mg Documented by: JUVENAL Melatonin (Melatonin 3 Mg Tablet) 6 mg PO BEDTIME PRN PRN Reason: Insomnia Last Admin: 09/21/21 20:51 Dose: 6 mg Documented by: RUBÉN Methylprednisolone Sodium Succinate (Methylprednisolone Sod Succ 40 Mg/Ml Vial) 40 mg IVPUSH Q24H [facility] Metoclopramide HCl (Metoclopramide Hcl 10 Mg Tablet) 10 mg PO TIDAC [facility] Last Admin: 09/22/21 08:13 Dose: 10 mg Documented by: JUVENAL Nicotine (Nicotine 14 Mg Patch.Td24) 14 mg TRANSDERMA DAILY [facility] Last Admin: 09/22/21 08:13 Dose: 14 mg Documented by: JUVENAL Omeprazole (Omeprazole 20 Mg Capsule.Dr) 20 mg PO DAILY [facility] Last Admin: 09/22/21 08:12 Dose: 20 mg Documented by: JUVENAL Pharmacy Consult (Consult Rx Perform Med Rec) 1 each MISCELLANE ONCE PRN PRN Reason: Consult order Senna (Sennosides 8.6 Mg Tablet) 17.2 mg PO BEDTIME PRN PRN Reason: Constipation Last Admin: 09/20/21 22:04 Dose: 17.2 mg Documented by: ERIK Sodium Chloride (0.9 % Sodium Chloride Flush 3 Ml Syringe) 3 ml IVFLUSH QSHIFT [facility] Last Admin: 09/22/21 08:13 Dose: 3 ml Documented by: JUVENAL Tiotropium [place] (Tiotropium [place] 18 Mcg Cap.W.Dev) 1 puff INHALE RDAILY [facility] Last Admin: 09/22/21 08:54 Dose: 1 puff Documented by: MIGUELITO Vitamin D (Cholecalciferol (Vitamin D3) 25 Mcg Tablet) 50 mcg PO DAILY [facility] Last Admin: 09/22/21 08:13 Dose: 50 mcg Documented by: JUVENAL Labs CBC & Chem 7: 09/21/21 07:49 09/21/21 07:49 Labs: Laboratory Results - last 24 hr 09/21/21 09/21/21 09/21/21 07:49 11:50 17:17 POC Glucose 268 H 246 H Estimat Average Glucose 189 Hemoglobin A1c % 8.2 09/21/21 09/22/21 20:28 07:44 POC Glucose 265 H 210 H Estimat Average Glucose Hemoglobin A1c % Microbiology Microbiology Results: Microbiology 09/19/21 16:14 Urine Culture - Final Urine clean catch - Urine bone top Assessment and Plan (1) RSV (respiratory syncytial virus infection): Status: Acute (2) COPD (chronic obstructive pulmonary disease): Status: Acute Plan hospital d#4 61yo F with HLD, DM2, COPD presenting with dyspnea and admitted for hypoxia from RSV PNA, COPD exacerbation # acute hypoxic resp failure - wean O2 as tolerated # COPD exacerbation - wean steroids as tolerated, continue LAMA, prn nebs, azithromycin d#4/5 # RSV pneumonia - isolation precautions, d/c'ed ceftriaxone given low PCT, continue azithromycin as above # DM2 with steroid-induced hyperglycemia - increase basal/bolus insulin; on MTF at home - A1c 8.2 # HLD - continue atorvastatin # tobacco abuse - NRT # VTE ppx - LMWH Quality Stroke Does the patient have a stroke diagnosis?: No VTE Prior VTE?: No VTE Risk Level:: Medical - moderate - high VTE Device Contraindication: Treatment Not Indicated VTE Drug Contraindication: N/A - Med Ordered
[2021-09-22] MEDS: methylPREDNISolone Sod Succ 40 MG/ML VIAL IVPUSH (09:57)
--- NOTE | 2021-09-22 10:30 | PC.NURSE ---
Pt is A&Ox3, no complaints of pain at this time. Lungs are with course rhonchi throughout. NSR in the 80's on the monitor. On 2L NC in the 90's at this time. Medicated as per MAR orders, nicotine patch removed from L upper back, new one placed on L outer upper arm at this time. Pt gets OOB to commode w/standy by assist. Pt asking when she will get a room upstairs, explained to pt the rounding occurs late in the morning and as soon as I know something I will let her know. Call burger within reach, will continue to monitor.
[2021-09-22 11:17] VITALS: BP 180/91; PULSE 87; RESP 18; O2SAT 99
--- NOTE | 2021-09-22 12:14 | MHC.CM.PN ---
PT ADMITTED WITH RSV. CM ATTEMPTED TO CONTACT PT VIA T/C ([phone]). CALL WENT TO VM. A VM MESSAGE WAS LEFT REQUESTING A RETURN CALL. CM ALSO ATTEMPTED TO CONTACT PTS HCP, JAMES WAS ([phone]). A VM MESSAGE WAS LEFT FOR HIM ALSO REQUESTING A RETURN CALL. SOLE SKIVER COMPLETED USING PTS EMR. PER PT RECORDS, SHE LIVES WITH HER S/O, JAMES WAS AND IS INDEPENDENT WITH CARE. PT HAS A HCP ON FILE AND HER PCP IS ASIF PHAN. CURRENT DC PLAN IS HOME WITH NO SERVICES TRANSPORTATION UNKNOWN AT THIS TIME
[2021-09-22 13:11] LABS: Glucose, Whole Blood 194 mg/dL (60-115)
[2021-09-22 13:34] VITALS: PULSE 93; PULSE 97; O2SAT 88; O2SAT 90
--- NOTE | 2021-09-22 13:59 | PC.NURSE ---
Pt OOB to BR with no assistance, states she doesn't want to be DC'd until her boyfriend who is also admitted is DC'd. Sowmya from made aware. Call burger within reach. Will continue to monitor.
[2021-09-22 17:05] VITALS: BP 155/83; PULSE 99; RESP 16; TEMP 36.6; O2SAT 91
[2021-09-22 17:22] LABS: Glucose, Whole Blood 254 mg/dL (60-115)
[2021-09-22 20:38] LABS: Glucose, Whole Blood 421 mg/dL (60-115)
[2021-09-22] MEDS: Insulin Lispro 100 UNIT/ML 3 ML VIAL 10 UNIT SUBCUT (20:46)
[2021-09-22] MEDS: Aspirin Enteric Coated 81 MG TABLET.DR PO (20:47)
[2021-09-22] MEDS: Insulin Glargine,Hum.rec.anlog 100 UNIT/ML 10 ML VIAL 24 UNIT SUBCUT (20:47)
[2021-09-22] MEDS: Atorvastatin Calcium 20 MG TABLET PO (20:47)
[2021-09-22] MEDS: Azithromycin 500 MG TABLET PO (20:48)
[2021-09-22] MEDS: Amitriptyline HCl 50 MG TABLET PO (20:48)
[2021-09-22] MEDS: Melatonin 3 MG TABLET 6 MG PO (23:35)
[2021-09-23] MEDS: Gabapentin 400 MG CAPSULE 800 MG PO ×4 (06:30→23:14)
[2021-09-23] MEDS: Insulin Lispro 100 UNIT/ML 3 ML VIAL SUBCUT ×4 (07:55→20:40)
[2021-09-23] MEDS: methylPREDNISolone Sod Succ 40 MG/ML VIAL IVPUSH (07:55)
[2021-09-23] MEDS: Nicotine 14 MG PATCH.TD24 TRANSDERMA (07:55)
[2021-09-23] MEDS: Loratadine 10 MG TABLET PO (07:56)
[2021-09-23] MEDS: Metoclopramide HCl 10 MG TABLET PO ×3 (07:56→17:19)
[2021-09-23] MEDS: Omeprazole 20 MG CAPSULE.DR PO (07:56)
[2021-09-23] MEDS: Enoxaparin Sodium 40 MG/0.4 ML SYRINGE SUBCUT (07:56)
[2021-09-23] MEDS: Cholecalciferol (Vitamin D3) 25 MCG TABLET 50 MCG PO (07:56)
[2021-09-23] MEDS: 0.9 % Sodium Chloride Flush 3 ML SYRINGE IVFLUSH ×2 (07:57→17:24)
[2021-09-23 08:00] VITALS: BP 132/74; PULSE 84; RESP 16; O2SAT 96
--- NOTE | 2021-09-23 08:11 | PC.NURSE ---
Pt A&Ox3, no complaints of pain at this time. NSR on monitor, O2 sat in the low 90's at this time on 1.5L NC. OOB to commode with no assistance, LCA. Awaiting bed assignment. Will continue to monitor.
[2021-09-23 08:15] LABS: Glucose, Whole Blood 158 mg/dL (60-115)
--- NOTE | 2021-09-23 09:33 | P.PNIM_ITS ---
Subjective Subjective Date of Service: 09/23/21 Interval History: Wheezing and dyspneic Cough improved Requiring 2.5L O2 via NC to maintain normoxemia Review of Systems Review of Systems: Yes all other systems are reviewed and are negative Physical Exam Vital Signs: Vital Signs: Last Vital Signs Temp 97.8 F 09/22/21 17:05 Pulse 99 09/22/21 17:05 Resp 16 09/22/21 17:05 BP 155/83 H 09/22/21 17:05 Pulse Ox 91 L 09/22/21 17:05 BMI result Body Mass Index 30.2 Gen: NAD HEENT: sclera anicteric, moist mucus membranes Neck: supple Lungs: diminished, exp wheezing Heart: regular rate and rhythm, no murmurs Abd: soft, non-tender, non-distended Ext: no edema Skin: warm/well-perfused Neuro: alert and oriented x3, no focal findings Psych: appropriate affect Objective Data Active Medications Acetaminophen (Acetaminophen 325 Mg Tablet) 650 mg PO Q6H PRN PRN Reason: Pain, Mild (Pain Scale 1-3) Last Admin: 09/21/21 20:51 Dose: 650 mg Documented by: RUBÉN Albuterol/Ipratropium (Albuterol/Iprat 2.5/0.5mg 3 Ml Ampul.Neb) 3 ml INHALE RQ4H PRN PRN Reason: Shortness of Breath/Wheezing Amitriptyline HCl (Amitriptyline Hcl 50 Mg Tablet) 50 mg PO BEDTIME [facility] Last Admin: 09/22/21 20:48 Dose: 50 mg Documented by: KELIN Aspirin (Aspirin Enteric Coated 81 Mg Tablet.) 81 mg PO BEDTIME [facility] Last Admin: 09/22/21 20:47 Dose: 81 mg Documented by: KELIN Atorvastatin Calcium (Atorvastatin Calcium 20 Mg Tablet) 20 mg PO BEDTIME [facility] Last Admin: 09/22/21 20:47 Dose: 20 mg Documented by: KELIN Azithromycin (Azithromycin 500 Mg Tablet) 500 mg PO Q24H [facility] Last Admin: 09/22/21 20:48 Dose: 500 mg Documented by: KELIN Benzonatate (Benzonatate 100 Mg Capsule) 200 mg PO TID PRN PRN Reason: cough Last Admin: 09/21/21 18:19 Dose: 200 mg Documented by: RENU Dextrose (Dextrose 50 % 25 Gm/50 Ml Syringe) 25 gm IVPUSH Q15M PRN; Protocol PRN Reason: per Hypoglycemia Standing Ord. Enoxaparin Sodium (Enoxaparin Sodium 40 Mg/0.4 Ml Syringe) 40 mg SUBCUT Q24H [facility] Last Admin: 09/23/21 07:56 Dose: 40 mg Documented by: JUVENAL Gabapentin (Gabapentin 400 Mg Capsule) 800 mg PO Q6H [facility] Last Admin: 09/23/21 06:30 Dose: 800 mg Documented by: KELIN Glucose (Glucose Gel 15 Gm Gel..Gram.) 15 gm PO Q15M PRN; Protocol PRN Reason: per Hypoglycemia Standing Ord. Insulin Glargine (Insulin Glargine,Hum.Rec.Anlog 100 Unit/Ml 10 Ml Vial) 24 unit SUBCUT BEDTIME [facility] Last Admin: 09/22/21 20:47 Dose: 24 unit Documented by: KELIN Insulin Human Lispro (Insulin Lispro 100 Unit/Ml 3 Ml Vial) 0 unit SUBCUT QIDACHS [facility]; Protocol Last Admin: 09/23/21 07:55 Dose: 5 unit Documented by: JUVENAL Lisinopril (Lisinopril 10 Mg Tablet) 10 mg PO DAILY [facility]; Protocol Loratadine (Loratadine 10 Mg Tablet) 10 mg PO DAILY [facility] Last Admin: 09/23/21 07:56 Dose: 10 mg Documented by: JUVENAL Melatonin (Melatonin 3 Mg Tablet) 6 mg PO BEDTIME PRN PRN Reason: Insomnia Last Admin: 09/22/21 23:35 Dose: 6 mg Documented by: KELIN Metformin HCl (Metformin Hcl 1,000 Mg Tablet) 1,000 mg PO BIDWM [facility] Methylprednisolone Sodium Succinate (Methylprednisolone Sod Succ 40 Mg/Ml Vial) 40 mg IVPUSH Q24H [facility] Last Admin: 09/23/21 07:55 Dose: 40 mg Documented by: JUVENAL Metoclopramide HCl (Metoclopramide Hcl 10 Mg Tablet) 10 mg PO TIDAC [facility] Last Admin: 09/23/21 07:56 Dose: 10 mg Documented by: JUVENAL Nicotine (Nicotine 14 Mg Patch.Td24) 14 mg TRANSDERMA DAILY [facility] Last Admin: 09/23/21 07:55 Dose: 14 mg Documented by: JUVENAL Omeprazole (Omeprazole 20 Mg Capsule.) 20 mg PO DAILY [facility] Last Admin: 09/23/21 07:56 Dose: 20 mg Documented by: JUVENAL Pharmacy Consult (Consult Rx Perform Med Rec) 1 each MISCELLANE ONCE PRN PRN Reason: Consult order Senna (Sennosides 8.6 Mg Tablet) 17.2 mg PO BEDTIME PRN PRN Reason: Constipation Last Admin: 09/20/21 22:04 Dose: 17.2 mg Documented by: ERIK Sodium Chloride (0.9 % Sodium Chloride Flush 3 Ml Syringe) 3 ml IVFLUSH QSHIFT [facility] Last Admin: 09/23/21 07:57 Dose: 3 ml Documented by: JUVENAL Tiotropium [place] (Tiotropium [place] 18 Mcg Cap.W.Dev) 1 puff INHALE RDAILY [facility] Last Admin: 09/23/21 08:33 Dose: Not Given Documented by: ULRICC Non-Admin Reason: IV Running Vitamin D (Cholecalciferol (Vitamin D3) 25 Mcg Tablet) 50 mcg PO DAILY [facility] Last Admin: 09/23/21 07:56 Dose: 50 mcg Documented by: JUVENAL Labs CBC & Chem 7: 09/21/21 07:49 09/21/21 07:49 Labs: Laboratory Results - last 24 hr 09/22/21 09/22/21 09/22/21 12:54 17:03 20:13 POC Glucose 194 H 254 H 421 H* 09/23/21 07:39 POC Glucose 158 H Assessment and Plan (1) RSV (respiratory syncytial virus infection): Status: Acute (2) COPD (chronic obstructive pulmonary disease): Status: Acute Plan hospital d#5 61yo F with HLD, DM2, COPD presenting with dyspnea and admitted for hypoxia from RSV PNA, COPD exacerbation # acute hypoxic resp failure - wean O2 as tolerated # COPD exacerbation - wean steroids as tolerated, continue LAMA, prn nebs, azithromycin d#5/ # RSV pneumonia - isolation precautions, d/c'ed ceftriaxone given low PCT, complete azithromycin as above # DM2 with steroid-induced hyperglycemia - resume MTF, continue basal/bolus insulin; may need glargine upon discharge - A1c 8.2 # HTN - start lisinopril 10 mg/d; repeat BMP in 1 wk # HLD - continue atorvastatin # tobacco abuse - NRT # VTE ppx - LMWH Quality Stroke Does the patient have a stroke diagnosis?: No VTE Prior VTE?: No VTE Risk Level:: Medical - moderate - high VTE Device Contraindication: Treatment Not Indicated VTE Drug Contraindication: N/A - Med Ordered
[2021-09-23] MEDS: lisinopriL 10 MG TABLET PO (10:24)
[2021-09-23] MEDS: metFORMIN HCl 1,000 MG TABLET 1000 MG PO ×2 (10:24→17:19)
[2021-09-23 13:04] LABS: Glucose, Whole Blood 295 mg/dL (60-115)
[2021-09-23 17:24] VITALS: BP 135/84; PULSE 102; RESP 20; O2SAT 93
[2021-09-23 18:04] LABS: Glucose, Whole Blood 256 mg/dL (60-115)
[2021-09-23 20:33] LABS: Glucose, Whole Blood 299 mg/dL (60-115)
[2021-09-23 20:35] VITALS: BP 153/80; PULSE 104; RESP 22; O2SAT 85
[2021-09-23] MEDS: Melatonin 3 MG TABLET 6 MG PO (20:39)
[2021-09-23] MEDS: Azithromycin 500 MG TABLET PO (20:40)
[2021-09-23] MEDS: Atorvastatin Calcium 20 MG TABLET PO (20:40)
[2021-09-23] MEDS: Insulin Glargine,Hum.rec.anlog 100 UNIT/ML 10 ML VIAL 24 UNIT SUBCUT (20:40)
[2021-09-23] MEDS: Amitriptyline HCl 50 MG TABLET PO (20:40)
[2021-09-23] MEDS: Aspirin Enteric Coated 81 MG TABLET.DR PO (20:40)
--- NOTE | 2021-09-23 23:38 | PC.NURSE ---
This RN assumed care at 1900. Patient resting in bed, requesting to go up to a room. Patient was medication compliant and reports no pain. Will continue to monitor
[2021-09-24] MEDS: Gabapentin 400 MG CAPSULE 800 MG PO ×4 (05:41→23:22)
[2021-09-24] MEDS: methylPREDNISolone Sod Succ 40 MG/ML VIAL IVPUSH (08:07)
[2021-09-24] MEDS: lisinopriL 10 MG TABLET PO (08:07)
[2021-09-24] MEDS: metFORMIN HCl 1,000 MG TABLET 1000 MG PO ×2 (08:07→17:33)
[2021-09-24] MEDS: Cholecalciferol (Vitamin D3) 25 MCG TABLET 50 MCG PO (08:07)
[2021-09-24] MEDS: Nicotine 14 MG PATCH.TD24 TRANSDERMA (08:07)
[2021-09-24] MEDS: 0.9 % Sodium Chloride Flush 3 ML SYRINGE IVFLUSH ×2 (08:07→23:23)
[2021-09-24] MEDS: Loratadine 10 MG TABLET PO (08:07)
[2021-09-24] MEDS: Metoclopramide HCl 10 MG TABLET PO ×3 (08:07→17:33)
[2021-09-24] MEDS: Omeprazole 20 MG CAPSULE.DR PO (08:07)
[2021-09-24] MEDS: Enoxaparin Sodium 40 MG/0.4 ML SYRINGE SUBCUT (08:08)
[2021-09-24 08:13] LABS: Glucose, Whole Blood 145 mg/dL (60-115)
[2021-09-24 08:15] VITALS: BP 109/58; PULSE 94; RESP 18; O2SAT 93
--- NOTE | 2021-09-24 08:18 | PC.NURSE ---
Pt A&OX3, LCA, in good spirits today, no pain at this time. Maintaining O2 sats on 2.5L NC at this time. Medicated as per MAR orders. NSR in the 80's on the monitor. Awaiting bed assignment, call burger within reach. Will continue to monitor.
[2021-09-24 12:37] VITALS: BP 126/67; PULSE 101; RESP 19; TEMP 36.4; O2SAT 90
[2021-09-24 13:30] LABS: Glucose, Whole Blood 256 mg/dL (60-115)
[2021-09-24] MEDS: Insulin Lispro 100 UNIT/ML 3 ML VIAL SUBCUT ×3 (13:36→21:24)
--- NOTE | 2021-09-24 14:43 | P.PNIM_ITS ---
Subjective Subjective Date of Service: 09/24/21 Interval History: Still wheezing + hypoxic Review of Systems Review of Systems: Yes all other systems are reviewed and are negative Physical Exam Vital Signs: Vital Signs: Last Vital Signs Temp 97.6 F 09/24/21 12:37 Pulse 101 H 09/24/21 12:37 Resp 19 09/24/21 12:37 BP 126/67 09/24/21 12:37 Pulse Ox 90 L 09/24/21 12:37 BMI result Body Mass Index 30.2 Gen: in no acute distress on 2L O2 via NC HEENT: sclera anicteric, moist mucus membranes Neck: supple Lungs: prolonged expiratory phase with wheezing Heart: regular rate and rhythm, no murmurs Abd: soft, non-tender, non-distended Ext: no edema Skin: warm/well-perfused Neuro: alert and oriented x3, no focal findings Psych: appropriate affect Objective Data Active Medications Acetaminophen (Acetaminophen 325 Mg Tablet) 650 mg PO Q6H PRN PRN Reason: Pain, Mild (Pain Scale 1-3) Last Admin: 09/21/21 20:51 Dose: 650 mg Documented by: RUBÉN Albuterol/Ipratropium (Albuterol/Iprat 2.5/0.5mg 3 Ml Ampul.Neb) 3 ml INHALE RQ4H PRN PRN Reason: Shortness of Breath/Wheezing Amitriptyline HCl (Amitriptyline Hcl 50 Mg Tablet) 50 mg PO BEDTIME [facility] Last Admin: 09/23/21 20:40 Dose: 50 mg Documented by: KELIN Aspirin (Aspirin Enteric Coated 81 Mg Tablet.) 81 mg PO BEDTIME [facility]STAP[facility] Last Admin: 09/23/21 20:40 Dose: 81 mg Documented by: KELIN Atorvastatin Calcium (Atorvastatin Calcium 20 Mg Tablet) 20 mg PO BEDTIME MOUSTAPHA Last Admin: 09/23/21 20:40 Dose: 20 mg Documented by: KELIN Azithromycin (Azithromycin 500 Mg Tablet) 500 mg PO Q24H MOUSTAPHA Stop: 09/24/21 20:01 Last Admin: 09/23/21 20:40 Dose: 500 mg Documented by: KELIN Benzonatate (Benzonatate 100 Mg Capsule) 200 mg PO TID PRN PRN Reason: cough Last Admin: 09/21/21 18:19 Dose: 200 mg Documented by: RENU Dextrose (Dextrose 50 % 25 Gm/50 Ml Syringe) 25 gm IVPUSH Q15M PRN; Protocol PRN Reason: per Hypoglycemia Standing Ord. Enoxaparin Sodium (Enoxaparin Sodium 40 Mg/0.4 Ml Syringe) 40 mg SUBCUT Q24H [facility] Last Admin: 09/24/21 08:08 Dose: 40 mg Documented by: CASEY-SOPHIA Gabapentin (Gabapentin 400 Mg Capsule) 800 mg PO Q6H [facility] Last Admin: 09/24/21 12:35 Dose: 800 mg Documented by: CASEY-SOPHIA Glucose (Glucose Gel 15 Gm Gel..Gram.) 15 gm PO Q15M PRN; Protocol PRN Reason: per Hypoglycemia Standing Ord. Insulin Glargine (Insulin Glargine,Hum.Rec.Anlog 100 Unit/Ml 10 Ml Vial) 24 unit SUBCUT BEDTIME [facility] Last Admin: 09/23/21 20:40 Dose: 24 unit Documented by: KELIN Insulin Human Lispro (Insulin Lispro 100 Unit/Ml 3 Ml Vial) 0 unit SUBCUT QIDACHS [facility]; Protocol Last Admin: 09/24/21 13:36 Dose: 12 unit Documented by: JUVENAL Lisinopril (Lisinopril 10 Mg Tablet) 10 mg PO DAILY [facility]; Protocol Last Admin: 09/24/21 08:07 Dose: 10 mg Documented by: CASEY-SOPHIA Loratadine (Loratadine 10 Mg Tablet) 10 mg PO DAILY [facility] Last Admin: 09/24/21 08:07 Dose: 10 mg Documented by: JUVENAL Melatonin (Melatonin 3 Mg Tablet) 6 mg PO BEDTIME PRN PRN Reason: Insomnia Last Admin: 09/23/21 20:39 Dose: 6 mg Documented by: KELIN Metformin HCl (Metformin Hcl 1,000 Mg Tablet) 1,000 mg PO BIDWM [facility] Last Admin: 09/24/21 08:07 Dose: 1,000 mg Documented by: JUVENAL Methylprednisolone Sodium Succinate (Methylprednisolone Sod Succ 40 Mg/Ml Vial) 40 mg IVPUSH Q24H [facility] Last Admin: 09/24/21 08:07 Dose: 40 mg Documented by: JUVENAL Metoclopramide HCl (Metoclopramide Hcl 10 Mg Tablet) 10 mg PO TIDAC [facility] Last Admin: 09/24/21 12:35 Dose: 10 mg Documented by: JUVENAL Nicotine (Nicotine 14 Mg Patch.Td24) 14 mg TRANSDERMA DAILY [facility] Last Admin: 09/24/21 08:07 Dose: 14 mg Documented by: JUVENAL Omeprazole (Omeprazole 20 Mg Capsule.Dr) 20 mg PO DAILY [facility] Last Admin: 09/24/21 08:07 Dose: 20 mg Documented by: JUVENAL Pharmacy Consult (Consult Rx Perform Med Rec) 1 each MISCELLANE ONCE PRN PRN Reason: Consult order Senna (Sennosides 8.6 Mg Tablet) 17.2 mg PO BEDTIME PRN PRN Reason: Constipation Last Admin: 09/20/21 22:04 Dose: 17.2 mg Documented by: ERIK Sodium Chloride (0.9 % Sodium Chloride Flush 3 Ml Syringe) 3 ml IVFLUSH QSHIFT [facility] Last Admin: 09/24/21 08:07 Dose: 3 ml Documented by: JUVENAL Tiotropium [place] (Tiotropium [place] 18 Mcg Cap.W.Dev) 1 puff INHALE RDAILY [facility] Last Admin: 09/24/21 08:20 Dose: Not Given Documented by: MILDREDRICC Non-Admin Reason: Med Not Available Vitamin D (Cholecalciferol (Vitamin D3) 25 Mcg Tablet) 50 mcg PO DAILY [facility] Last Admin: 09/24/21 08:07 Dose: 50 mcg Documented by: JUVENAL Labs CBC & Chem 7: 09/21/21 07:49 09/21/21 07:49 Labs: Laboratory Results - last 24 hr 09/23/21 09/23/21 09/24/21 17:59 20:26 07:57 POC Glucose 256 H 299 H 145 H 09/24/21 13:25 POC Glucose 256 H Assessment and Plan (1) RSV (respiratory syncytial virus infection): Status: Acute (2) COPD (chronic obstructive pulmonary disease): Status: Acute Plan hospital d#6 61yo F with HLD, DM2, COPD presenting with dyspnea and admitted for hypoxia from RSV PNA, COPD exacerbation # acute hypoxic resp failure - wean O2 as tolerated; originally did not qualify for home O2 but may need re- evaluation if O2 requirement persists # COPD exacerbation - wean steroids as tolerated, continue LAMA, prn nebs, completed 5d of azithrom ycin # RSV pneumonia - isolation precautions, d/c'ed ceftriaxone given low PCT, completed azithromy james as above # DM2 with steroid-induced hyperglycemia - resume MTF, continue basal/bolus insulin; may need glargine upon discharge - A1c 8.2 # HTN - started lisinopril 10 mg/d; repeat BMP in 1 wk # HLD - continue atorvastatin # tobacco abuse - NRT # VTE ppx - LMWH # dispo - anticipate home with VNA + Pulm f/u Quality Stroke Does the patient have a stroke diagnosis?: No VTE Prior VTE?: No VTE Risk Level:: Medical - moderate - high VTE Device Contraindication: Treatment Not Indicated VTE Drug Contraindication: N/A - Med Ordered
[2021-09-24 16:57] VITALS: BP 137/86; PULSE 104; RESP 26; TEMP 36.6
[2021-09-24 18:00] VITALS: BP 166/75; PULSE 104; RESP 20; TEMP 36.8; O2SAT 93
[2021-09-24 18:01] VITALS: BMI 30.2
[2021-09-24 18:06] LABS: Glucose, Whole Blood 310 mg/dL (60-115)
[2021-09-24 19:17] LABS: Glucose, Whole Blood 241 mg/dL (60-115)
[2021-09-24] MEDS: Azithromycin 500 MG TABLET PO (21:23)
[2021-09-24] MEDS: Aspirin Enteric Coated 81 MG TABLET.DR PO (21:23)
[2021-09-24] MEDS: Atorvastatin Calcium 20 MG TABLET PO (21:23)
[2021-09-24] MEDS: Melatonin 3 MG TABLET 6 MG PO (21:23)
[2021-09-24] MEDS: Amitriptyline HCl 50 MG TABLET PO (21:23)
[2021-09-24] MEDS: Insulin Glargine,Hum.rec.anlog 100 UNIT/ML 10 ML VIAL 24 UNIT SUBCUT (21:24)
[2021-09-24 23:26] VITALS: BP 141/60; PULSE 108; RESP 18; TEMP 35.8; O2SAT 94
[2021-09-25 03:24] VITALS: BP 116/59; PULSE 92; RESP 18; TEMP 36.4; O2SAT 94
[2021-09-25] MEDS: Gabapentin 400 MG CAPSULE 800 MG PO ×2 (06:30→11:31)
[2021-09-25 07:01] LABS: VBG Base Excess 2.8 mmol/L; VBG HCO3 28 mmol/L (22-26); VBG pCO2 44 mmHg; VBG pH 7.41 (7.32-7.43); VBG pO2 160 mmHg
[2021-09-25 07:08] LABS: Venous Blood Gas Refer to POC result
[2021-09-25 07:40] LABS: Anion Gap 16 (12-20); Carbon Dioxide 30 mmol/L (22-29); Chloride 97 mmol/L (96-108); Creatinine Clr Calc Pharmacy 63.7; Estimated Glomerular Filt Rate > 60; Glucose Random 174 mg/dL (60-115); Potassium 4.7 mmol/L (3.3-5.1); Sodium 138 mmol/L (135-145)
[2021-09-25 07:50] LABS: Glucose, Whole Blood 164 mg/dL (60-115)
[2021-09-25 07:54] VITALS: BP 131/59; PULSE 96; RESP 16; TEMP 36.3; O2SAT 95
[2021-09-25 07:57] LABS: Blood Urea Nitrogen 25 mg/dL (9-16); Calcium 11.3 mg/dL (8.4-10.2)
[2021-09-25] MEDS: Insulin Lispro 100 UNIT/ML 3 ML VIAL SUBCUT ×2 (08:08→11:30)
[2021-09-25] MEDS: Metoclopramide HCl 10 MG TABLET PO ×2 (08:09→11:31)
[2021-09-25] MEDS: metFORMIN HCl 1,000 MG TABLET 1000 MG PO (08:09)
[2021-09-25] MEDS: lisinopriL 10 MG TABLET PO (08:09)
[2021-09-25] MEDS: Loratadine 10 MG TABLET PO (08:09)
[2021-09-25] MEDS: methylPREDNISolone Sod Succ 40 MG/ML VIAL IVPUSH (08:10)
[2021-09-25] MEDS: Enoxaparin Sodium 40 MG/0.4 ML SYRINGE SUBCUT (08:10)
[2021-09-25] MEDS: Cholecalciferol (Vitamin D3) 25 MCG TABLET 50 MCG PO (08:10)
[2021-09-25] MEDS: Omeprazole 20 MG CAPSULE.DR PO (08:10)
[2021-09-25] MEDS: Nicotine 14 MG PATCH.TD24 TRANSDERMA (08:10)
[2021-09-25] MEDS: 0.9 % Sodium Chloride Flush 3 ML SYRINGE IVFLUSH (08:11)
[2021-09-25 11:03] LABS: Glucose, Whole Blood 329 mg/dL (60-115)
[2021-09-25 11:52] VITALS: BP 169/57; PULSE 102; RESP 16; TEMP 36; O2SAT 94
[2021-09-25 12:37] VITALS: PULSE 107; PULSE 97; O2SAT 89; O2SAT 92
--- NOTE | 2021-09-25 12:38 | PC.RT ---
Home O2 evaluation completed per MD order. pt. able to maintain adequate SpO2 at rest and with ambulation. MD and RN renay. Wing Boyle, RT
--- NOTE | 2021-09-25 13:03 | PM.DS ---
DS: Providers Provider Date of Service: 09/25/21 Date of admission: 09/19/21 23:26 Date of discharge: 09/25/21 Primary care physician: Magalie Nicolas MD DS: Diagnosis Discharge Diagnosis (1) RSV (respiratory syncytial virus infection): Status: Acute (2) COPD (chronic obstructive pulmonary disease): Status: Acute DS: Summary Hospital Course Hospital Course: 61-year-old female with a past medical history of hypertension, hyperlipidemia, diabetes, COPD, seasonal allergies; presented to the hospital today with a chief complaint of shortness of breath.? Patient reports that over the past 2 days she has been having shortness of breath and cough.? Associated with sputum production.? Denies any recent travel or sick contacts.? Denies any chest pain or palpitations.? Denies any nausea vomiting or diarrhea.? Reports that shortness of breath has been gradually worsening.? Reports she still continues to? smoke cigarettes. ER course: Per ER team patient on presentation noted to be mildly tachypneic, saturating 86% on room air; placed on supplemental oxygen; COVID-19 negative, flu negative, D-dimer negative; chest x-ray concerning for pneumonia given empiric antibiotics.? Patient also had wheezing and received steroids.? RSV was positive.? Admitted to the hospital for further management. Hospital Course Admitted with supportive therapies including O2/Azithromycin/Steroids. Seen by ID ...completed Azithro...wean steroids/O2 as tolerated. On day of discharge able to maintain sats on RA. Will be D/Cd on prednisone taper and ventolin inhaler. Sugars elevated with steroids...will increase Metformiin to BID until re eval By Dr Nicolas Time Spent with Patient Time attestation: Total time spent providing and/or coordinating discharge services: Discharge coordination time: Greater than 30 minutes Quality: Stroke Does the patient have a stroke diagnosis?: No Physical Exam Vital Signs: Vital Signs: Last Vital Signs Temp 96.8 F 09/25/21 11:52 Pulse 102 H 09/25/21 11:52 Resp 16 09/25/21 11:52 BP 169/57 H 09/25/21 11:52 Pulse Ox 94 09/25/21 11:52 BMI result Body Mass Index 30.2 Const: Other: NAD Resp: Other: scattered expiratory wheezes at bases Cardio: Other: +S1/S2 no MRG Extrem: Other: no edema DS: Data Data Completed and Pending Labs on day of discharge: Laboratory Results - last 24 hr 09/24/21 09/24/21 09/24/21 13:25 18:03 19:13 VBG pH VBG pCO2 VBG pO2 VBG HCO3 VBG O2 Saturation VBG Base Excess Sodium Potassium Chloride Carbon Dioxide Anion Gap BUN Creatinine Estim Creat Clear Calc Estimated GFR POC Glucose 256 H 310 H 241 H Random Glucose Calcium 09/25/21 09/25/21 09/25/21 06:41 06:55 07:40 VBG pH 7.41 VBG pCO2 44 VBG pO2 160 VBG HCO3 28 H VBG O2 Saturation 98.0 VBG Base Excess 2.8 Sodium 138 Potassium 4.7 Chloride 97 Carbon Dioxide 30 H Anion Gap 16 BUN 25 H D Creatinine 0.72 Estim Creat Clear Calc 63.7 Estimated GFR > 60 POC Glucose 164 H Random Glucose 174 H Calcium 11.3 H D 09/25/21 10:48 VBG pH VBG pCO2 VBG pO2 VBG HCO3 VBG O2 Saturation VBG Base Excess Sodium Potassium Chloride Carbon Dioxide Anion Gap BUN Creatinine Estim Creat Clear Calc Estimated GFR POC Glucose 329 H Random Glucose Calcium Discharge Plan Discharge Patient Disposition: Home, Self-Care Discharge Diagnosis: RSV infection, COPD exacerbation Referrals: [facility] [Provider Group] - 2 Weeks [facility] [Outside] - 1 Week Magalie Nicolas MD [Primary Care Provider] - 1 Week Discharge Medications: New metformin 1,000 mg Tablet 1,000 mg PO BIDWM Qty: 60 0RF prednisone 10 mg tablet See Rx Instructions .Route .COMPLEX Qty: 45 0RF Rx Instructions: 10 mg orally; 5 tabs p.o. daily x3 days; 4 tabs p.o. daily x3 days; 3 tabs daily x3 days; 2 tabs daily x3 days; 1 tab daily x3 days albuterol sulfate [Ventolin HFA] 90 mcg/actuation HFA aerosol inhaler 2 inh inhalation Q4H PRN (Reason: shortness of breath or wheezing) Qty: 8.5 0RF Continued cholecalciferol (vitamin D3) 50 mcg (2,000 unit) capsule 50 mcg PO DAILY Qty: 30 6RF naproxen 500 mg tablet 500 mg PO BID PRN (Reason: for pain) Qty: 60 0RF nystatin-triamcinolone 100,000-0.1 unit/g-% cream 1 appl topical DAILY 10 Days Qty: 30 0RF gabapentin 800 mg tablet 800 mg PO Q6H 0RF metoclopramide HCl [Reglan] 10 mg tablet 10 mg PO TIDAC 0RF umeclidinium 62.5 mcg/actuation blister with device 1 inh inhalation DAILY 0RF Rx Instructions: Encruse aspirin [Adult Low Dose Aspirin] 81 mg tablet,delayed release (DR/EC) 81 mg PO BEDTIME 0RF Arnuity Ellipta 200 mcg/actuation blister with device 1 inh inhalation DAILY 0RF Zyrtec 10 mg capsule 10 mg PO DAILY 30 Days Qty: 30 0RF Linzess 145 mcg capsule 145 mcg PO QAM 30 Days Qty: 30 6RF omeprazole 20 mg capsule,delayed release(DR/EC) 20 mg PO DAILY 30 Days Qty: 30 6RF simethicone [Gas Relief (simethicone)] 180 mg capsule 180 mg PO QID 30 Days Qty: 120 6RF Rx Instructions: Pt will be coming with a [employer] card to have this filled since insurance is not covering. psyllium husk [Fiber Laxative (psyllium husk)] 0.52 gram capsule 1.04 g PO BID Qty: 120 6RF amitriptyline 25 mg tablet 50 mg PO BEDTIME 30 Days Qty: 60 12RF Discontinued metformin 500 mg tablet 500 mg PO BID Qty: 180 3RF atorvastatin 20 mg tablet 20 mg PO BEDTIME 0RF Discharge Orders: Discharge Order (Routine); Ordered 09/25/21 Ordered By: Todd Shaffer Diet: advance to usual diet and diabetic diet Activity on Discharge: As tolerated Stand Alone Forms: Patient Portal Discharge page Care Plan Goals: recovery from RSV infection prevention of COPD exacerbations control of blood sugar Health Concerns: RSV infection COPD exacerbation steroid-induced hyperglycemia Plan of Treatment: take prednisone 40 mg daily x 2 days, then 20 mg daily x 2 days, then 10 mg daily x 2 days, then 5 mg daily x 2 days follow low-sugar low-carbohydrate diet; increase metformin to 1000 mg twice daily follow up with Primary Care in 1 week, Pulmonology in 2 weeks Assessment: see Discharge Summary Patient Instructions: Respiratory Syncytial Virus (DC), COPD (Chronic Obstructive Pulmonary Disease) (DC)
--- NOTE | 2021-09-25 13:24 | MHC.CM.PN ---
Patient has been medically cleared for dc to home today, no services.
== END 2021-09-25 15:37 | disposition home or self-care (01) | DRG 140 ==
LOC: HO.ED 17:45 → HO.EDOVER 23:32 → HO.IMC 09-24 16:26
PROVIDERS: Family Medicine; Admitting Provider Hospitalist; Emergency Provider Emergency Medicine Emergency Medical Services; PCP Internal Medicine; Visit Provider Hospitalist
DX: J44.0 Chronic obstructive pulmonary disease with (acute) lower respiratory infection (principal); J96.01 Acute respiratory failure with hypoxia; J12.1 Respiratory syncytial virus pneumonia; J44.1 Chronic obstructive pulmonary disease with (acute) exacerbation; E78.5 Hyperlipidemia, unspecified; E11.65 Type 2 diabetes mellitus with hyperglycemia; F17.210 Nicotine dependence, cigarettes, uncomplicated; T38.0X5A Adverse effect of glucocorticoids and synthetic analogues, initial encounter; Y92.9 Unspecified place or not applicable; Z20.822 Contact with and (suspected) exposure to COVID-19; Z71.6 Tobacco abuse counseling; Z88.0 Allergy status to penicillin; Z79.1 Long term (current) use of non-steroidal anti-inflammatories (NSAID); Z79.51 Long term (current) use of inhaled steroids; Z79.82 Long term (current) use of aspirin; Z79.84 Long term (current) use of oral hypoglycemic drugs; Z79.899 Other long term (current) drug therapy
CPT/HCPCS: 0241U; 36415; 71045; 80048; 80053; 80076; 81001; 82803; 82947; 83036; 83615; 83735; 83880; 84100; 84145; 84484; 85025; 85027; 85379; 86140; 87086; 94640; 96365; 96375; 97162; 99285; J0696; J1650; J2920; J2930

== ENCOUNTER 2021-10-03 10:12 | Outpatient (REF) | payer OTHER, SELFPAY ==
--- NOTE | ~2021-10-03 | XR_ITS ---
EXAMINATION: XR CHEST CLINICAL INFORMATION: Follow-up of question right lung base disease. COMPARISON: September 19, 2021 and October 28, 2019 TECHNIQUE: 2 views of the chest were obtained. FINDINGS: There is no evidence of acute parenchymal disease, pneumothorax, or pleural effusion. Heart normal size. No evidence of pulmonary edema. Status post cervical spine surgery. XR/XR chest 2V IMPRESSION: No acute disease.
== END 2021-10-03 10:13 | disposition home or self-care (01) ==
LOC: HO.HMGCX 10:12
PROVIDERS: Visit Provider Internal Medicine
DX: R91.8 Other nonspecific abnormal finding of lung field (principal)
CPT/HCPCS: 71046

== ENCOUNTER 2021-11-10 11:54 | Outpatient (REF) | payer OTHER, SELFPAY ==
[2021-11-10 13:51] LABS: MANUAL DIFF FLAG NO
[2021-11-10 13:56] LABS: Basophils Absolute Auto 0.1 X10*3/uL (0.0-0.2); Basophils Percent Auto 0.9 % (0-2); Eosinophils Absolute Auto 0.1 X10*3/uL (0.0-0.4); Hematocrit 52.1 % (37.0-47.0); Hemoglobin 16.4 g/dl (12.0-16.0); Imm Gran Abs Auto 0.07 X10*3/uL (0.00-0.03); Imm Gran Pct Auto 0.7 % (0.0-0.4); Lymphocytes Absolute Auto 2.6 X10*3/uL (1.2-4.9); Lymphocytes Percent Auto 25.4 % (20-40); Mean Corpuscular HGB Conc 31.5 g/dl (31.0-35.0); Mean Corpuscular Hemoglobin 29.2 pg (27.0-33.0); Mean Corpuscular Volume 92.7 fL (80.0-98.0); Monocytes Absolute Auto 0.7 X10*3/uL (0.1-1.2); Monocytes Percent Auto 6.8 % (2-11); Neutrophils Absolute Auto 6.8 x10*3/uL (2.0-8.3); Neutrophils Percent Auto 65.2 % (45-73); Platelet Count 264 X10*3/uL (160-400); Red Blood Count 5.62 X10*6/uL (4.20-5.50); Red Cell Distribution Width 14.5 % (11.0-16.0); White Blood Count 10.4 X10*3/uL (4.8-10.8)
[2021-11-10 14:16] LABS: Alanine Aminotransferase 26 U/L (0-31); Anion Gap 14 (12-20); Aspartate Amino Transferase 17 U/L (5-31); Blood Urea Nitrogen 5 mg/dL (9-16); Carbon Dioxide 30 mmol/L (22-29); Chloride 102 mmol/L (96-108); Cholesterol 195 mg/dL; Estimated Glomerular Filt Rate > 60; Glucose Fasting 150 mg/dL (60-99); HDL Cholesterol 38 mg/dL; LDL Cholesterol Calculated 110 mg/dl; Potassium 3.8 mmol/L (3.3-5.1); Sodium 142 mmol/L (135-145); Triglycerides 235 mg/dL
[2021-11-10 14:38] LABS: Vitamin D 25-OH Total 62.6 ng/mL (>30)
[2021-11-10 14:41] LABS: Creatinine Urine 94.25 mg/dL; Microalbum/Creatinine Ratio Ur 44.5 ug/mg cr
== END 2021-11-10 11:55 | disposition home or self-care (01) ==
LOC: HO.HMGCLDS 11:54
PROVIDERS: PCP Internal Medicine; Visit Provider Internal Medicine
DX: E11.65 Type 2 diabetes mellitus with hyperglycemia (principal); E78.5 Hyperlipidemia, unspecified; Z78.0 Asymptomatic menopausal state
CPT/HCPCS: 36415; 80048; 80061; 82043; 82306; 84450; 84460; 85025

== ENCOUNTER 2022-01-02 15:27 | Outpatient (REF) | payer OTHER, SELFPAY | END 2022-01-02 15:28 | disposition home or self-care (01) | LOC: CF 15:27 | PROVIDERS: Visit Provider Nurse Practitioner | DX: K31.84 Gastroparesis (principal); K21.9 Gastro-esophageal reflux disease without esophagitis; K59.04 Chronic idiopathic constipation; R21 Rash and other nonspecific skin eruption | CPT/HCPCS: 87071; 87077; 87186; 87205; 99212 ==

== ENCOUNTER 2022-02-09 08:25 | Outpatient (REF) | payer OTHER, SELFPAY ==
[2022-02-09 12:46] LABS: Alanine Aminotransferase 13 U/L (0-31); Anion Gap 18 (12-20); Aspartate Amino Transferase 18 U/L (5-31); Blood Urea Nitrogen 9 mg/dL (9-16); Calcium 9.9 mg/dL (8.4-10.2); Carbon Dioxide 25 mmol/L (22-29); Chloride 102 mmol/L (96-108); Cholesterol 180 mg/dL; Estimated Glomerular Filt Rate > 60; Glucose Fasting 120 mg/dL (60-99); HDL Cholesterol 38 mg/dL; LDL Cholesterol Calculated 64 mg/dl; Potassium 4.6 mmol/L (3.3-5.1); Sodium 140 mmol/L (135-145); Triglycerides 392 mg/dL
[2022-02-09 20:18] LABS: Estimated Average Glucose 126 mg/dL
== END 2022-02-09 08:26 | disposition home or self-care (01) ==
LOC: HO.HMGCLDS 08:25
PROVIDERS: PCP Internal Medicine; Visit Provider Internal Medicine
DX: E11.65 Type 2 diabetes mellitus with hyperglycemia (principal); E78.5 Hyperlipidemia, unspecified
CPT/HCPCS: 36415; 80048; 80061; 83036; 84450; 84460

== ENCOUNTER 2022-04-17 13:31 | Outpatient (REF) | payer OTHER, SELFPAY ==
--- NOTE | ~2022-04-17 | XR_ITS ---
EXAMINATION: XR FOOT, RIGHT CLINICAL INFORMATION: Pain right foot COMPARISON: None TECHNIQUE: AP, lateral, and oblique views of the right foot. FINDINGS: No visible acute or healing fracture, dislocation, destructive process. There are degenerative changes tarsal metatarsal joints with mild dorsal spurring mid foot. Some borderline spurring of the second metatarsal head on AP view is present. There is normal bony attenuation. No sclerotic changes. No joint narrowing or erosive change MTP joints. There is some mild joint narrowing PIP and DIP joints digits. XR/XR foot RT min 3V IMPRESSION: -No acute or healing fracture, dislocation, destructive process. -Degenerative changes tarsal metatarsal joints. -Mild degenerative changes interphalangeal joints.
== END 2022-04-17 13:32 | disposition home or self-care (01) ==
LOC: HO.HMGCX 13:31
PROVIDERS: PCP Internal Medicine
DX: M79.671 Pain in right foot (principal)
CPT/HCPCS: 73630

== ENCOUNTER → 2022-05-18 14:51 | Outpatient (BNVA) | payer OTHER, SELFPAY | PROVIDERS: PCP Internal Medicine; Visit Provider Anesthesiology | DX: M96.1 Postlaminectomy syndrome, not elsewhere classified (principal); Z79.899 Other long term (current) drug therapy | CPT/HCPCS: 99212 ==

== ENCOUNTER 2022-05-27 07:45 | Outpatient (REF) | payer OTHER, SELFPAY ==
[2022-05-27 11:32] LABS: Estimated Average Glucose 123 mg/dL; Hemoglobin A1c % 5.9 %
[2022-05-27 11:42] LABS: Alanine Aminotransferase 15 U/L (0-31); Anion Gap 17 (12-20); Aspartate Amino Transferase 16 U/L (5-31); Blood Urea Nitrogen 11 mg/dL (9-16); Calcium 10.4 mg/dL (8.4-10.2); Carbon Dioxide 30 mmol/L (22-29); Chloride 99 mmol/L (96-108); Cholesterol 156 mg/dL; Estimated Glomerular Filt Rate > 60; Glucose Fasting 120 mg/dL (60-99); HDL Cholesterol 42 mg/dL; LDL Cholesterol Calculated 82 mg/dl; Sodium 141 mmol/L (135-145); Triglycerides 164 mg/dL
[2022-05-27 12:09] LABS: Creatinine Urine 14.63 mg/dL
== END 2022-05-27 07:46 | disposition home or self-care (01) ==
LOC: HO.HMGCLDS 07:45
PROVIDERS: PCP Internal Medicine; Visit Provider Internal Medicine
DX: E11.9 Type 2 diabetes mellitus without complications (principal); I10 Essential (primary) hypertension; E78.5 Hyperlipidemia, unspecified
CPT/HCPCS: 36415; 80048; 80061; 82043; 83036; 84450; 84460

== ENCOUNTER → 2022-07-03 15:56 | Outpatient (BNVA) | payer OTHER, SELFPAY | PROVIDERS: PCP Internal Medicine; Visit Provider Nurse Practitioner | DX: K31.84 Gastroparesis (principal); K59.04 Chronic idiopathic constipation; B37.9 Candidiasis, unspecified; E11.29 Type 2 diabetes mellitus with other diabetic kidney complication | CPT/HCPCS: 99212 ==

== ENCOUNTER 2022-07-06 14:44 | Outpatient (REF) | payer OTHER, SELFPAY ==
--- NOTE | ~2022-07-06 | MM_ITS ---
EXAMINATION: MM SCREENING DIGITAL BREAST TOMOSYNTHESIS, BILATERAL CLINICAL INFORMATION: Screening. Asymptomatic. The lifetime risk of breast cancer based on the Tyrer-Cuzick Model is 7%. COMPARISON: Mammography: 06/12/2021, 06/11/2020, 06/06/2019 TECHNIQUE: Digital breast tomosynthesis is performed in both the craniocaudal and mediolateral oblique views along with computer-aided detection (CAD). Synthesized 2D images are generated from the tomosynthesis. Additional right CC view is provided. FINDINGS: There are scattered areas of fibroglandular density (ACR BI-RADS breast composition Category b). There are no significant masses, abnormal calcifications, or other abnormalities. Parenchymal pattern is similar to prior studies. There is no developing density or architectural abnormality. The axilla and skin contours are unremarkable. No significant changes. MM/MM tomosynthesis screening BI IMPRESSION: No mammographic evidence of malignancy. ASSESSMENT: BI-RADS 1: Negative RECOMMENDATION: Routine annual mammography screening. This patient's information was entered into a reminder system with a target due date for their next mammogram.
== END 2022-07-06 14:45 | disposition home or self-care (01) ==
LOC: HO.MAMMO 14:44
PROVIDERS: PCP Internal Medicine; Visit Provider Internal Medicine
DX: Z12.31 Encounter for screening mammogram for malignant neoplasm of breast (principal)
CPT/HCPCS: 77063; 77067

== ENCOUNTER 2022-08-28 07:47 | Outpatient (REF) | payer OTHER, SELFPAY ==
[2022-08-28 12:03] LABS: Estimated Average Glucose 114 mg/dL; Hemoglobin A1c % 5.6 %
[2022-08-28 12:21] LABS: Creatinine Urine 64.32 mg/dL; Microalbum/Creatinine Ratio Ur 26.4 ug/mg cr
[2022-08-28 12:33] LABS: Alanine Aminotransferase 14 U/L (0-31); Anion Gap 18 (12-20); Aspartate Amino Transferase 15 U/L (5-31); Blood Urea Nitrogen 11 mg/dL (9-16); Calcium 10.1 mg/dL (8.4-10.2); Carbon Dioxide 28 mmol/L (22-29); Chloride 98 mmol/L (96-108); Cholesterol 147 mg/dL; Estimated Glomerular Filt Rate > 60; Glucose Fasting 115 mg/dL (60-99); HDL Cholesterol 37 mg/dL; LDL Cholesterol Calculated 61 mg/dl; Potassium 4.6 mmol/L (3.3-5.1); Sodium 139 mmol/L (135-145); Triglycerides 245 mg/dL
== END 2022-08-28 07:48 | disposition home or self-care (01) ==
LOC: HO.HMGCLDS 07:47
PROVIDERS: PCP Internal Medicine; Visit Provider Internal Medicine
DX: E78.2 Mixed hyperlipidemia (principal); E11.29 Type 2 diabetes mellitus with other diabetic kidney complication; I10 Essential (primary) hypertension; Z78.0 Asymptomatic menopausal state
CPT/HCPCS: 36415; 80048; 80061; 82043; 82306; 83036; 84450; 84460

== ENCOUNTER 2022-09-02 13:04 | Outpatient (AMB) | payer OTHER, SELFPAY ==
--- NOTE | 2022-09-02 13:14 | A.OFFPC_ITS ---
Vital Signs 09/02/22 13:28 Height 4 ft 9 in Weight 125 lb BMI 27.0 BP 120/60 Blood Pressure Location Lt brachial Position Sitting Pulse 97 Pulse Source Pulse Oximeter Pulse Oximetry (%) 92 Oxygen Delivery Method Room Air Intake Visit Reasons: 3 month follow up Intake Note: Pt is here today for her 3 months f/u Allergies amoxicillin (AMOXICILLIN) Allergy (Intermediate, Verified 09/12/25 17:27) RASH Tobacco use date assessed: 05/28/22 [facility] Medical History (Updated 09/13/25 @ 03:29 by Background Samantha) Anemia COPD (chronic obstructive pulmonary disease) Chronic hypercapnic respiratory failure Mixed dyslipidemia Heavy cigarette smoker History of pneumonia Gastritis Diabetic gastroparesis Diastolic CHF with preserved left ventricular function, NYHA class 2 Type 2 diabetes mellitus with other diabetic kidney complication Essential hypertension Postlaminectomy syndrome of cervical region Seasonal allergic rhinitis GERD (gastroesophageal reflux disease) Surgical History H/O cervical discectomy History of esophagogastroduodenoscopy (EGD) Hx of colonoscopy Family History Mother Diabetes Sister Diabetes Mental health disorder Brother Diabetes Father HTN (hypertension) Social History Household Members: Spouse Housing: Unknown / Unable to assess Housing Other:: pt unable to recall Are you a primary sub acute care nurse to a significant other at home: No Do you presently have visiting nurse or other home services: Yes ([facility] and [employer] but pt states they have not been coming.) Alcohol intake: current Alcohol intake frequency: does not drink 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 Patient Tobacco Use Status: Current everyday Tobacco user Tobacco use type: Cigarette Cigarette Packs Per Day: 1 Cigarettes Per Day: 20.0 Years Smoked: 51 e-Cigarette/Vaping Use: Never Used Second Hand Smoke Exposure: Yes Advance Directives: Yes Advance Directives on File: Yes Advance Directives Date on File: 08/02/23 Do you have a plan to hurt others: No Plan service: No Current occupational status: unemployed and disabled Gender identity: Female Cognitive needs: No Hearing needs: No Vision needs: Yes Questionnaire PHQ-9 Over the last 2 weeks, how often have you been bothered by any of the following problems? 75130 - PHQ-9 Billing: Patient declined-do not bill Source: Developed by Drs. Wiley Caballero, Sharmila Paez, Iraj Hernandez and colleagues, with an educational radha from [employer]. Thrive Questionnaire Declines Thrive assessment: Yes Date Thrive assessed: 09/02/22 FREDI-7 AMB Questionnaire FREDI-7 Date FREDI - 7 assessed: 09/02/22 Source: Developed by Drs. Wiley Caballero, Sharmila Paez, Iraj Hernandez and colleagues, with an educational radha from [employer]. FREDI-7 Assessment Billing FREDI-7 Assessment Tool: pt declined-do not bill Physical exam (Primary Care) Vital Signs: Last Vital Signs Pulse 97 09/02/22 13:28 BP 120/60 09/02/22 13:28 Pulse Ox 92 09/02/22 13:28 Oxygen Delivery Method Room Air 09/02/22 13:28 BMI result Body Mass Index 27.0 Tobacco/Smoking Status: Tobacco use Status Tobacco use date assessed 05/28/22 09/02/22 13:17 Patient Tobacco Use Status Current everyday Tobacco 09/02/22 13:17 Tobacco use type Cigarette 09/02/22 13:17 e-Cigarette/Vaping Use Never Used 09/02/22 13:17 Thrive Assessment: Date of Thrive Assessment Date Thrive assessed 09/02/22 09/02/22 13:35 Results Reviewed Results Reviewed: Laboratory Tests 08/28/22 07:53 Estimat Average Glucose 114 Hemoglobin A1c % 5.6 Laboratory Tests 08/28/22 07:55 Urine Creatinine 64.32 Urine Microalbumin 17.0 Microalb/Creat Ratio 26.4 ENTERED: 08/28/22-[address]: ORDERED: Met Prof Fast, AST, ALT, Lipid Panel, Vitamin D 25-OH Test Result Flag Reference Site Sodium 139 135-145 mmol/L Potassium 4.6 3.3-5.1 mmol/L CL 98 96-108 mmol/L CO2 28 22-29 mmol/L Gap 18 12-20 BUN 11 9-16 mg/dL Creat 0.52 0.5-1.4 mg/dL EGFR > 60 NOTE: For -Lao individuals, multiply the result by 1.210. Chronic Kidney Disease: Estimated GFR < 60 mL/min/1.73m2 Severe Kidney Disease: Estimated GFR < 15 mL/min/1.73m2 FBS 115 H 60-99 mg/dL A fasting glucose from 100-125 mg/dl is considered impaired (pre-diabetes). CA 10.1 8.4-10.2 mg/dL AST (GOT) 15 5-31 U/L ALT (GPT) 14 0-31 U/L Triglyceride 245 mg/dL Desirable Triglyceride: less than 150 mg/dL Borderline High Triglyceride 150-199 mg/dL High Triglyceride: 200-499 mg/dL Very High Triglyceride: greater than or equal to 5OO mg/dL Chol 147 mg/dL Desirable Cholesterol: less than 200 mg/dL Borderline High Cholesterol: 200-239 mg/dL High Cholesterol: greater than 239 mg/dL LDL Calculated 61 mg/dl Desirable LDL: less than 100 mg/dL Near Optimal/Above Optimal LDL: 110-129 mg/dL Borderline High LDL: 130-159 mg/dL High LDL: 160-189 mg/dL Very High LDL: greater than or equal to 190 mg/dL HDL 37 mg/dL Desirable HDL: greater than 40 mg/dL Note: This HDL assay may give artificially low results in patients with liver disease. Vit D 25-OH Tot 55.0 >30 ng/mL Health Based Reference Values* < 20 ng/mL Deficient 20-30 ng/mL Insufficient > 30 ng/mL Sufficient Coding Level of Care Code Admin Sign Off/No Billing Diagnoses Mixed dyslipidemia E78.2 Essential hypertension I10 Type 2 diabetes mellitus without complication, with no history of insulin use E11.9 Menopause Z78.0
[2022-09-02 13:28] VITALS: BP 120/60; PULSE 97; O2SAT 92; BMI 27.0
== END 2022-09-02 14:44 | disposition home or self-care (01) ==
LOC: HO.HMGC 13:04
PROVIDERS: PCP Internal Medicine; Visit Provider Internal Medicine
DX: E78.2 Mixed hyperlipidemia (principal); I10 Essential (primary) hypertension; E11.9 Type 2 diabetes mellitus without complications; Z78.0 Asymptomatic menopausal state
CPT/HCPCS: 99499

== ENCOUNTER → 2023-01-01 15:53 | Outpatient (BNVA) | payer OTHER, SELFPAY | PROVIDERS: PCP Internal Medicine; Visit Provider Nurse Practitioner | DX: Z12.11 Encounter for screening for malignant neoplasm of colon (principal); K31.84 Gastroparesis; K59.04 Chronic idiopathic constipation; R14.0 Abdominal distension (gaseous); B37.2 Candidiasis of skin and nail; E11.65 Type 2 diabetes mellitus with hyperglycemia; E11.29 Type 2 diabetes mellitus with other diabetic kidney complication; J44.9 Chronic obstructive pulmonary disease, unspecified; F17.210 Nicotine dependence, cigarettes, uncomplicated; Z99.81 Dependence on supplemental oxygen | CPT/HCPCS: 99212 ==

== ENCOUNTER 2023-01-25 07:40 | Outpatient (REF) | payer OTHER, SELFPAY ==
[2023-01-25 11:48] LABS: Estimated Average Glucose 111 mg/dL; Hemoglobin A1c % 5.5 %
[2023-01-25 12:12] LABS: Alanine Aminotransferase 9 U/L (0-31); Anion Gap 17 (12-20); Aspartate Amino Transferase 10 U/L (5-31); Blood Urea Nitrogen 10 mg/dL (9-16); Calcium 10.5 mg/dL (8.4-10.2); Carbon Dioxide 31 mmol/L (22-29); Chloride 97 mmol/L (96-108); Cholesterol 150 mg/dL; Estimated Glomerular Filt Rate > 60; Glucose Fasting 120 mg/dL (60-99); HDL Cholesterol 42 mg/dL; LDL Cholesterol Calculated 69 mg/dl; Potassium 4.7 mmol/L (3.3-5.1); Sodium 140 mmol/L (135-145); Triglycerides 197 mg/dL
[2023-01-25 12:19] LABS: Vitamin D 25-OH Total 70.1 ng/mL (>30)
== END 2023-01-25 07:41 | disposition home or self-care (01) ==
LOC: HO.HMGCLDS 07:40
PROVIDERS: PCP Internal Medicine; Visit Provider Internal Medicine
DX: E11.9 Type 2 diabetes mellitus without complications (principal); E78.2 Mixed hyperlipidemia; I10 Essential (primary) hypertension; Z78.0 Asymptomatic menopausal state
CPT/HCPCS: 36415; 80048; 80061; 82306; 83036; 84450; 84460

== ENCOUNTER 2023-03-22 09:00 | Outpatient (REF) | payer OTHER, SELFPAY ==
[2023-03-22 12:13] LABS: Estimated Average Glucose 114 mg/dL; Hemoglobin A1c % 5.6 %
[2023-03-22 12:15] LABS: Alanine Aminotransferase 12 U/L (0-31); Anion Gap 16 (12-20); Aspartate Amino Transferase 11 U/L (5-31); Blood Urea Nitrogen 8 mg/dL (9-16); Calcium 10.2 mg/dL (8.4-10.2); Carbon Dioxide 28 mmol/L (22-29); Chloride 101 mmol/L (96-108); Cholesterol 147 mg/dL; Estimated Glomerular Filt Rate > 60; Glucose Fasting 143 mg/dL (60-99); HDL Cholesterol 43 mg/dL; LDL Cholesterol Calculated 69 mg/dl; Potassium 3.7 mmol/L (3.3-5.1); Sodium 141 mmol/L (135-145); Triglycerides 177 mg/dL
[2023-03-25 15:54] LABS: Calcium, Ionized 5.3 mg/dL (4.7-5.5)
[2023-03-30 20:39] LABS: Parathyroid Hormone Related Pr 9 pg/mL (11-20)
== END 2023-03-22 09:01 | disposition home or self-care (01) ==
LOC: HO.HMGCLDS 09:00
PROVIDERS: PCP Internal Medicine; Visit Provider Internal Medicine
DX: E11.9 Type 2 diabetes mellitus without complications (principal); E78.2 Mixed hyperlipidemia; E83.52 Hypercalcemia; I10 Essential (primary) hypertension
CPT/HCPCS: 36415; 80048; 80061; 82330; 83036; 83519; 84450; 84460

== ENCOUNTER 2023-03-25 15:05 | Outpatient (AMB) | payer OTHER, SELFPAY ==
[2023-03-25 15:27] VITALS: BP 124/64; PULSE 93; O2SAT 93; BMI 26.4
--- NOTE | 2023-03-25 15:27 | MHC.PC.OV ---
Vital Signs 03/25/23 15:27 Height 4 ft 9 in Weight 122 lb BMI 26.4 BP 124/64 Blood Pressure Location Lt brachial Position Sitting Pulse 93 Pulse Source Pulse Oximeter Pulse Oximetry (%) 93 Oxygen Delivery Method Room Air Intake Visit Reasons: Pt needs afternoon appts Intake Note: Pt is here today to discuss lab results Allergies amoxicillin [AMOXICILLIN] Allergy (Intermediate, Verified 03/25/23 15:47) RASH Medication List - Last Reconciled 03/25/23 by Magalie Nicolas MD amitriptyline 50 mg (2 x 25 mg) PO BEDTIME 30 days aspirin (Adult Low Dose Aspirin) 81 mg PO BEDTIME blood-glucose meter (FreeStyle Lite Meter kit) As directed twice a day before meals cholecalciferol (vitamin D3) 50 mcg PO DAILY flash glucose scanning reader (FreeStyle Cristian 2 [place]) test blood sugar 4 times per day flash glucose sensor (FreeStyle Cristian 2 Sensor kit) Test blood sugar 4 times per day fluticasone propionate 220 mcg/actuation (Flovent HFA) 2 puffs inhalation BID FreeStyle Lite Strips (blood sugar diagnostic) check fasting blood sugar twice a day before meals NS gabapentin 800 mg PO TID 30 days lancets (FreeStyle Lancets) As directed twice a day AC linaclotide (Linzess) 145 mcg PO QAM 30 days losartan 50 mg PO DAILY metformin 1,000 mg PO BID metoclopramide HCl (Reglan) 10 mg PO TIDAC naproxen 500 mg PO BID PRN omeprazole 20 mg PO DAILY 30 days peg 3350-electrolytes 236-22.74-6.74 -5.86 gram (Golytely) 240 mL PO Q10M 1 day psyllium husk (Fiber Laxative (psyllium husk)) 1.04 grams (2 x 0.52 gram) PO BID 90 days rosuvastatin 5 mg PO DAILY simethicone (Anti-Gas Ultra Strength) 180 mg PO QID sitagliptin phosphate (Januvia) 100 mg PO DAILY umeclidinium 62.5 mcg/actuation 1 inh inhalation DAILY Tobacco use date assessed: 03/25/23 Dental Screening Dental Screen Date: 03/25/23 Did you have a dental visit in the last 12 months?: Yes Did you have a dental problem in the last 6 months where you did not have access to dental care?: No Was dental information given to patient?: Patient has dentist HPI Pt needs afternoon appts HPI Details 62-year-old lady with diabetes mellitus, dyslipidemia, and hypertension, here today for follow-up. BT is well controlled on present treatment currently taking Januvia metformin 1000 twice a day, rosuvastatin 5 mg daily and losartan 50 mg daily. Compliant with diet, and gets regular exercise. Unfortunately continues to smoke with no desire to quit at present time. [facility] Medical History (Updated 03/25/23 @ 16:08 by Magalie Nicolas MD) COPD (chronic obstructive pulmonary disease) Degenerative disc disease, cervical Dyslipidemia Essential hypertension GERD (gastroesophageal reflux disease) Mixed dyslipidemia Postlaminectomy syndrome of cervical region Postmenopause Seasonal allergic rhinitis Smoker unmotivated to quit Type 2 diabetes mellitus with other diabetic kidney complication Type 2 diabetes mellitus without complication, with no history of insulin use Type 2 diabetes mellitus without complication, with no history of insulin use Surgical History H/O cervical discectomy History of esophagogastroduodenoscopy (EGD) Hx of colonoscopy Family History Mother Diabetes Sister Diabetes Mental health disorder Brother Diabetes Father HTN (hypertension) Social History Household Members: Significant Other Housing: Other Housing Other:: Mobile Home 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 Wiley Caballero, Sharmila Paez, Iraj Hernandez and colleagues, with an educational radha from [employer]. Review of Systems Const Denies fatigue, Denies fever(s), Denies headache(s), Denies night sweats, Denies poor appetite and Reports weight loss Eyes Details: Currently being seen by Dr. Velasquez ENT Reports Normal hearing present, Denies dental pain, Denies dysphagia, Denies headache(s), Denies hearing loss, Denies mouth pain, Denies nasal congestion, Denies nasal discharge and Denies odynophagia Card Denies chest pain, Denies chest pain with activity, Denies irregular heart rhythm, Denies lightheadedness and Reports dyspnea on exertion Resp Denies cough and Reports dyspnea on exertion GI Denies abdominal pain, Denies melena, Denies bloating, Denies hematochezia, Reports constipation, Denies GI cramping, Denies dysphagia, Denies excessive flatus, Reports early satiety, Reports heartburn, Denies diarrhea, Denies nausea, Denies odynophagia, Denies vomiting and Denies hematemesis Skin/Breast Denies pruritus, Denies lesions, Denies rash and Denies jaundice Neuro Reports Normal hearing present, Denies Abnormal speech present and Denies headache(s) Endo Denies fatigue Physical exam (Primary Care) Vital Signs: Last Vital Signs Pulse 93 03/25/23 15:27 BP 124/64 03/25/23 15:27 Pulse Ox 93 03/25/23 15:27 Oxygen Delivery Method Room Air 03/25/23 15:27 BMI result Body Mass Index 26.4 Tobacco/Smoking Status: Tobacco use Status Tobacco use date assessed 03/25/23 03/25/23 15:28 Patient Tobacco Use Status Current everyday Tobacco 03/25/23 15:28 Tobacco use type Cigarette 03/25/23 15:28 e-Cigarette/Vaping Use Never Used 03/25/23 15:28 Are you ready to quit: No Tobacco cessation counseling provided: Yes Thrive Assessment: Date of Thrive Assessment Date Thrive assessed 09/02/22 03/25/23 15:28 Const Other: Alert oriented x3, no acute cardiorespiratory distress noted, ambulatory with normal gait HENMT Ears: external ears normal General nose exam: Normal external nose present and No nasal discharge present Mouth: oropharynx normal and moist mucous membranes Neck Neck: Yes full ROM, Yes no lymphadenopathy and Yes supple Resp Effort & Inspection: normal respiratory effort and able to speak in complete sentences Auscultation: clear to auscultation bilaterally Cardio Other: S1-S2 present regular rate and rhythm Rate: regular rate Rhythm: regular rhythm Heart sounds: S1 normal heart sound present and S2 normal heart sound present GI Other: Normal bowel sounds, soft, nontender, no mass palpated Skin General skin exam: no rashes or lesions noted Neuro General: gait normal, tone normal, moves all extremities, Normal light touch and pain sensation and no focal motor deficits Cranial nerves: Yes Normal hearing present Cognition (Neuro): normal cognition Speech: No Abnormal speech present Gait exam (Neuro): Normal gait present Motor exam (neuro): 5/5 motor strength present throughout Extrem General: Yes full ROM, Yes no joint enlargement, Yes no pedal edema, Yes no calf tenderness and Yes normal gait Results Reviewed Results Reviewed: SPEC : [id number] SEUN: 03/22/23 STATUS: COMP REQ : [id number] RECD: 03/22/[address]: Magalie Nicolas MD COMP: 03/22/23 ENTERED: 03/22/[address]: ORDERED: Met Prof Fast, AST, ALT, Lipid Panel Test Result Flag Reference Site Sodium 141 135-145 mmol/L Potassium 3.7 # 3.3-5.1 mmol/L CL 101 96-108 mmol/L CO2 28 22-29 mmol/L Gap 16 12-20 BUN 8 L 9-16 mg/dL Creat 0.50 0.5-1.4 mg/dL EGFR > 60 NOTE: For -[place] individuals, multiply the result by 1.210. Chronic Kidney Disease: Estimated GFR < 60 mL/min/1.73m2 Severe Kidney Disease: Estimated GFR < 15 mL/min/1.73m2 FBS 143 H 60-99 mg/dL A fasting glucose of 126 mg/dl or greater on more than one occasion is considered diagnostic of diabetes. CA 10.2 8.4-10.2 mg/dL AST (GOT) 11 5-31 U/L ALT (GPT) 12 0-31 U/L Triglyceride 177 mg/dL Desirable Triglyceride: less than 150 mg/dL Borderline High Triglyceride 150-199 mg/dL High Triglyceride: 200-499 mg/dL Very High Triglyceride: greater than or equal to 5OO mg/dL Chol 147 mg/dL Desirable Cholesterol: less than 200 mg/dL Borderline High Cholesterol: 200-239 mg/dL High Cholesterol: greater than 239 mg/dL LDL Calculated 69 mg/dl Desirable LDL: less than 100 mg/dL Near Optimal/Above Optimal LDL: 110-129 mg/dL Borderline High LDL: 130-159 mg/dL High LDL: 160-189 mg/dL Very High LDL: greater than or equal to 190 mg/dL HDL 43 mg/dL Desirable HDL: greater than 40 mg/dL Note: This HDL assay may give artificially low results in patients with liver disease. Laboratory Tests 03/22/23 09:07 Estimat Average Glucose 114 Hemoglobin A1c % 5.6 Assessment and Plan Assessment & Plan (1) Type 2 diabetes mellitus without complication, with no history of insulin use: Code(s): E11.9 - Type 2 diabetes mellitus without complications Plan: Diabetes mellitus 7 well controlled on Januvia and metformin, up-to-date with her diabetes retinopathy screening, sees Dr. Velasquez, and sees Dr. Means for diabetes foot care, reminded to get her yearly flu vaccine, up-to-date with her COVID vaccines, reminded to get her Prevnar 20 which she can get from the pharmacy with her 2nd dose of shingles vaccine. (2) Mixed dyslipidemia: Code(s): E78.2 - Mixed hyperlipidemia Plan: Reviewed recent fasting lipid profile with patient with levels within normal limit . Continue with rosuvastatin 5 mg daily , in addition to adherence to low-cholesterol diet and regular exercise, at least 30 minutes 3 to 4 times a week. Advised patient to make healthy food choices, eat more fruits, vegetables, whole grains, wild caught fish and low-fat dairy. Limit amount of meat and fried or fatty food products, as well as processed foods and fast foods. Follow-up scheduled with repeat fasting lipid panel in 4 months. (3) Essential hypertension: Code(s): I10 - Essential (primary) hypertension Plan: Continue losartan 50 mg daily Orders: Orders Alanine Aminotransferase 07/16/23 E11.9 - Type 2 diabetes mellitus without complications, E78.2 - Mixed hyperlipidemia, I10 - Essential (primary) hypertension, Z78.0 - Asymptomatic menopausal state Aspartate Amino Transferase 07/16/23 E11.9 - Type 2 diabetes mellitus without complications, E78.2 - Mixed hyperlipidemia, I10 - Essential (primary) hypertension, Z78.0 - Asymptomatic menopausal state Basic Metabolic Panel Fasting 07/16/23 E11.9 - Type 2 diabetes mellitus without complications, E78.2 - Mixed hyperlipidemia, I10 - Essential (primary) hypertension, Z78.0 - Asymptomatic menopausal state Hemoglobin A1c 07/16/23 E11.9 - Type 2 diabetes mellitus without complications, E78.2 - Mixed hyperlipidemia, I10 - Essential (primary) hypertension, Z78.0 - Asymptomatic menopausal state Lipid Panel 07/16/23 E11.9 - Type 2 diabetes mellitus without complications, E78.2 - Mixed hyperlipidemia, I10 - Essential (primary) hypertension, Z78.0 - Asymptomatic menopausal state Vitamin D 25-OH Total 07/16/23 E11.9 - Type 2 diabetes mellitus without complications, E78.2 - Mixed hyperlipidemia, I10 - Essential (primary) hypertension, Z78.0 - Asymptomatic menopausal state Coding Level of Care Code Est Pt Level 4 (82062) Diagnoses Type 2 diabetes mellitus without complication, with no history of insulin use E11.9 Mixed dyslipidemia E78.2 Essential hypertension I10
== END 2023-03-25 16:02 | disposition home or self-care (01) ==
PROVIDERS: Visit Provider Internal Medicine
DX: E11.9 Type 2 diabetes mellitus without complications (principal); E78.2 Mixed hyperlipidemia; I10 Essential (primary) hypertension
CPT/HCPCS: 99214

== ENCOUNTER 2023-05-17 13:47 | Outpatient (AMB) | payer OTHER, SELFPAY ==
[2023-05-17 13:49] VITALS: BP 120/60; PULSE 114; TEMP 37.3; O2SAT 75
--- NOTE | 2023-05-17 13:49 | MHC.OFFWIV ---
Intake Vital Signs 05/17/23 13:49 Height 4 ft 9 in BP 120/60 Blood Pressure Location Lt brachial Position Sitting Pulse 114 H Pulse Source Pulse Oximeter Temp 99.1 F Temp Source Oral Pulse Oximetry (%) 75 L Oxygen Delivery Method Nasal Cannula Oxygen Flow Rate 3 Comment Oxygen on 3 Liters Intake Visit Reasons: EP, shaky, unable to stand Intake Note: pt is here for c/o unable to stand, feels shaky Patient Tobacco Use Status: Current everyday Tobacco user Allergies amoxicillin [AMOXICILLIN] Allergy (Intermediate, Verified 05/17/23 13:49) RASH Do you need a note to return to daycare/school/sports/work: Yes HPI HPI Comments History of Present Illness Details 62-year-old female presents with significant shortness of breath, fatigue, malaise, subjective fevers and chills started the past few days, on arrival patient falling over, had to get seated down, cyanotic, oxygenating 70% on 2 L. Patient wears 2 L at baseline. Recent travel to [place]. Current daily smoker Unable to ambulate. Immediately placed her on 3 L patient 81-83%, Physical examination patient with difficulty breathing. Weak. Diminished breath sounds and crackles. Warm to the touch. Tachycardia concerns for PE,COPD, CHF, sepsis Expect to Dr. Shaffer [facility] Will obtain a point of care in call 911 for patient should go to the emergency department. 1420 EMS arrives for transfer [facility] Medical History Type 2 diabetes mellitus without complication, with no history of insulin use Mixed dyslipidemia Type 2 diabetes mellitus with other diabetic kidney complication Essential hypertension Type 2 diabetes mellitus without complication, with no history of insulin use Smoker unmotivated to quit Postlaminectomy syndrome of cervical region Seasonal allergic rhinitis Degenerative disc disease, cervical COPD (chronic obstructive pulmonary disease) Postmenopause Dyslipidemia GERD (gastroesophageal reflux disease) Surgical History H/O cervical discectomy History of esophagogastroduodenoscopy (EGD) Hx of colonoscopy Family History Mother Diabetes Sister Diabetes Mental health disorder Brother Diabetes Father HTN (hypertension) Social History Household Members: Significant Other Housing: Other Housing Other:: Mobile Home 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) Alcohol intake: never Patient Tobacco Use Status: Current everyday Tobacco user Tobacco use type: Cigarette Cigarette Packs Per Day: 2 Cigarettes Per Day: 40.0 e-Cigarette/Vaping Use: Never Used Second Hand Smoke Exposure: No Advance Directives Date on File: 09/20/21 service: No Current occupational status: unemployed Cognitive needs: No Hearing needs: No Vision needs: Yes Review of Systems Const Details: Constitutional : No Weight loss, No Fever, No Chills, No Fatigue, No Malaise ENT/Mouth : No sore throat, No Rhinorrhea Eyes: No Eye Pain, No Swelling, No Redness Cardiovascular : No Chest Pain, + SOB, No Dyspnea on Exertion, No Orthopnea, No Edema, No Palpitations Respiratory : No Cough, No Sputum, No Wheezing Gastrointestinal : No Nausea, No Vomiting, No Diarrhea, No Constipation, No abdominal Pain, No Hematochezia, No Melena Genitourinary : No Dysuria, No Urinary Frequency, No Hematuria, Musculoskeletal : No joint pain, No Myalgias, No Joint Swelling Skin : No Skin Lesions, No rash Neuro : No Weakness, No Numbness, No Dizziness, No Headache Psych : No Anxiety/Panic, No Depression All other systems reviewed and are negative All systems reviewed & are unremarkable except as noted in HPI and below Physical Exam Vital Signs: Last Vital Signs Temp 99.1 F 05/17/23 13:49 Pulse 114 H 05/17/23 13:49 BP 120/60 05/17/23 13:49 Pulse Ox 75 L 05/17/23 13:49 Oxygen Delivery Method Nasal Cannula 05/17/23 13:49 Oxygen Flow Rate 3 05/17/23 13:49 Patient hypoxic, tachypneic Appearance: Alert.? Oriented X3.? Patient unwell appearing. Head: Normocephalic, atraumatic, no step-offs or deformities Eyes: Pupils equal, round and reactive to light.? ENT: Pharynx normal.? Neck: Normal inspection.? Neck supple.? CVS: Rapid rate regular rhythm.? Pulses normal.? Respiratory: + respiratory distress.? Breath sounds diminished with crackles..? Abdomen: Soft and nontender.? Skin: Skin warm and dry.? Normal skin color.? Normal skin turgor.? Extremities: No lower extremity edema.? No calf ttp. 5/5 strength to bilateral upper and lower extremities Neuro: Oriented X 3.? No motor deficit.? No sensory deficit. CN 2-12 intact Results AMB Random Glucose (hemocue) AMB Random Glucose (hemocue) 221 mg/dL Last Edit by Adalgisa Cardenas CMA on 05/17/23 14:05 Results Reviewed Results Reviewed: Laboratory Last Values Random Glu (Clinic) 221 mg/dL 05/17/23 14:04 Assessment & Plan Assessment & Plan (1) Hypoxia: Code(s): R09.02 - Hypoxemia Plan [facility] via EMS Orders: Orders AMB Random Glucose (hemocue) Today Z13.9 - Encounter for screening, unspecified Coding Level of Care Code Est Pt Level 3 (67776) Diagnoses Hypoxia R09.02
== END 2023-05-17 14:32 | disposition home or self-care (01) ==
PROVIDERS: PCP Internal Medicine; Visit Provider Physician Assistant
DX: R09.02 Hypoxemia (principal)
CPT/HCPCS: 82948; 99213

== ENCOUNTER 2023-05-17 14:36 | Inpatient (IN) | payer OTHER, SELFPAY ==
[2023-05-17] VITALS (18 sets, daily range): BP systolic 106–180; BP diastolic 37–69; PULSE 83–110; RESP 20–36; TEMP 36.6–38.8; O2SAT 86–98; BMI 27.2
--- NOTE | ~2023-05-17 | CT_ITS ---
EXAMINATION: CT CHEST WITHOUT CONTRAST CLINICAL INFORMATION: Pneumonia. COMPARISON: Chest x-ray 05/17/[address] chest 08/14/2015 TECHNIQUE: Multidetector volumetric CT imaging of the chest was done. Axial MIP volume rendering provided. Sagittal and coronal reformatted images were obtained. This CT examination was performed using dose optimization techniques as appropriate, variously including the following: *Automated exposure control *Adjustment of mA and/or kV according to patient size (this includes techniques or standardized protocols for targeted exams where dose is matched to indication/reason for exam; i.e. extremities or head) *Use of iterative reconstruction technique DLP: 270 mGy-cm FINDINGS: SONG WRITER: Well-expanded lungs. LUNGS: The lungs are well-expanded with prominent interstitial markings, micronodules and patchy opacity right upper lobe and to a lesser extent in left upper lobe.. Largest nodule in the right upper lobe peripherally-based measures [address] slice 27/3. Focal atelectatic changes are seen in the lingula. There are subpleural patchy opacities right posterior basal segment with a small consolidation. MEDIASTINUM: The thyroid lobes are symmetric and normal. The central trachea and the bronchi widely patent. Heart size and the great vessels are normal caliber. CORONARY ARTERY CALCIFICATION: Mild coronary artery calcifications are present. PLEURA: There is no pleural effusion. No pleural mass or thickening. AXILLA: No abnormal axillary lymph nodes seen. UPPER ABDOMEN: Visualized liver, spleen, pancreas and bilateral adrenal glands unremarkable. OSSEOUS STRUCTURES: No aggressive lytic or sclerotic process seen. CT/CT chest wo IV con IMPRESSION: 1. Prominent interstitial markings, micronodules and patchy opacity right upper lobe and to a lesser extent left upper lobe. There is a small consolidation right posterior basal segment. The above findings are suggestive of inflammatory process superimposed on chronic lung disease. 2. No abnormal mediastinal or axillary lymph nodes seen. 3. Mild coronary artery calcifications. Increase interstitial markings, Fleischner guidelines were followed.
--- NOTE | ~2023-05-17 | XR_ITS ---
EXAMINATION: XR CHEST CLINICAL INFORMATION: Hypoxia and fever COMPARISON: 10/03/2021 TECHNIQUE: Frontal view of the chest was obtained. FINDINGS: There are ill-defined right upper lobe and right lower lobe patchy opacities most likely due to pneumonia. And mildly increased interstitial markings. Cardiomediastinal silhouette is unremarkable. XR/XR chest 1V IMPRESSION: Patchy airspace disease most likely pneumonia on the right and prominent interstitial markings.
--- NOTE | ~2023-05-17 | XR_ITS ---
EXAMINATION: XR CHEST CLINICAL INFORMATION: Pain behind right breast COMPARISON: Chest CT on 05/17/2023 TECHNIQUE: Frontal view of the chest was obtained. FINDINGS: The cardiac silhouette is normal. There is mild diffuse bronchial wall thickening. There are no areas of consolidation. There are no pleural effusions or pneumothoraces. The bones and soft tissues are unremarkable for the patient's age. XR/XR chest 1V IMPRESSION: Bronchial wall thickening may be infectious and/or inflammatory in etiology.
--- NOTE | ~2023-05-17 | XR_ITS ---
EXAMINATION: XR CHEST CLINICAL INFORMATION: Hypoxia. COMPARISON: Prior chest radiographs, most recently 05/17/2023. TECHNIQUE: Frontal view of the chest was obtained. FINDINGS: The heart, great vessels, pulmonary vasculature and mediastinum are stable. There is a small focus of atelectasis versus infiltrate in the mid right lung. There is mild pulmonary vascular congestion, without overt pulmonary edema. No pleural effusion or pneumothorax is seen. There is no acute osseous abnormality. Lower cervical orthopedic hardware is noted. XR/XR chest 1V IMPRESSION: 1. A small focus of atelectasis versus infiltrate is seen in the mid right lung. Recommend short-term follow-up chest radiographs to ensure clearance and exclude the possibility of underlying obstructive process. 2. There is pulmonary vascular congestion, without overt congestive heart failure.
--- NOTE | 2023-05-17 14:44 | ED.SOB ---
HPI - SOB/Dyspnea General Chief Complaint: Upper Respiratory Symptoms Stated Complaint: SOB, 90% ON 3LPM,FROM URGENT CARE PER EMS Time Seen by Provider: 05/17/23 14:44 Source: patient and EMS Mode of arrival: EMS Limitations: no limitations History of Present Illness HPI Narrative: Provider at Urgent care called to state fever and hypoxia on 2L 70%. MD elicited complaint: shortness of breath Related Data Home Medications Medication Instructions Recorded Confirmed aspirin 81 mg tablet,delayed 81 mg PO BEDTIME 01/10/21 11/13/21 release (Adult Low Dose Aspirin) umeclidinium 62.5 mcg/actuation 1 inh inhalation DAILY 03/31/21 11/13/21 blister powder for inhalation metformin 1,000 mg tablet 1,000 mg PO BID 01/01/23 fluticasone propionate 220 2 puff inhalation BID 03/25/23 mcg/actuation HFA aerosol inhaler (Flovent HFA) Previous Rx's Medication Instructions Recorded blood-glucose meter (FreeStyle #1 ea 10/03/21 Lite Meter kit) lancets 28 gauge (FreeStyle #100 ea 01/06/22 Lancets) FreeStyle Lite Strips (blood sugar #100 ea 03/10/22 diagnostic) amitriptyline 25 mg tablet 50 mg (2 x 25 mg) PO BEDTIME 30 05/18/22 days #60 tabs gabapentin 800 mg tablet 800 mg PO TID 30 days #90 tabs 05/18/22 cholecalciferol (vitamin D3) 50 50 mcg PO DAILY #90 caps 11/25/22 mcg (2,000 unit) capsule rosuvastatin 5 mg tablet 5 mg PO DAILY #90 tabs 11/25/22 linaclotide 145 mcg capsule 145 mcg PO QAM 30 days #30 caps 01/01/23 (Linzess) metoclopramide HCl 10 mg tablet 10 mg PO TIDAC gastroparesis #90 01/01/23 (Reglan) tabs omeprazole 20 mg capsule,delayed 20 mg PO DAILY 30 days #30 caps 01/01/23 release simethicone 180 mg capsule 180 mg PO QID #120 caps 01/01/23 (Anti-Gas Ultra Strength) psyllium husk 0.52 gram capsule 1.04 g (2 x 0.52 gram) PO BID 90 02/02/23 (Fiber Laxative (psyllium husk)) days #360 caps flash glucose sensor (FreeStyle #6 ea 02/19/23 Cristian 2 Sensor kit) flash glucose scanning reader #1 ea 03/26/23 (FreeStyle Cristian 2 [place]) losartan 50 mg tablet 50 mg PO DAILY #90 tabs 04/21/23 sitagliptin phosphate 100 mg 100 mg PO DAILY #90 tabs 04/26/23 tablet (Januvia) naproxen 500 mg tablet 500 mg PO BID PRN for pain #60 tabs 05/13/23 Allergies Allergy/AdvReac Type Severity Reaction Status Date / Time amoxicillin [AMOXICILLIN] Allergy Intermediate RASH Verified 05/17/23 14:47 Review of Systems Review of Systems: Yes all other systems are reviewed and are negative Neurologic: Denies Sensory deficit (Neuro) [facility] Past Medical History Medical History Type 2 diabetes mellitus without complication, with no history of insulin use Mixed dyslipidemia Type 2 diabetes mellitus with other diabetic kidney complication Essential hypertension Type 2 diabetes mellitus without complication, with no history of insulin use Smoker unmotivated to quit Postlaminectomy syndrome of cervical region Seasonal allergic rhinitis Degenerative disc disease, cervical COPD (chronic obstructive pulmonary disease) Postmenopause Dyslipidemia GERD (gastroesophageal reflux disease) Surgical History H/O cervical discectomy History of esophagogastroduodenoscopy (EGD) Hx of colonoscopy Family History Family History Mother Diabetes Sister Diabetes Mental health disorder Brother Diabetes Father HTN (hypertension) Social History Social History Household Members: Significant Other Housing: Other Housing Other:: Mobile Home Do you presently have visiting nurse or other home services: Yes ([employer]) Alcohol intake: never Patient Tobacco Use Status: Current everyday Tobacco user Tobacco use type: Cigarette Cigarette Packs Per Day: 2 Cigarettes Per Day: 40.0 e-Cigarette/Vaping Use: Never Used Second Hand Smoke Exposure: No Advance Directives: Yes Advance Directives on File: Yes Advance Directives Date on File: 09/20/21 service: No Current occupational status: unemployed Cognitive needs: No Hearing needs: No Vision needs: Yes Physical Exam Vital Signs: Vital Signs: Last Vital Signs Temp 101.2 F H 05/17/23 16:17 Pulse 102 H 05/17/23 16:17 Resp 25 H 05/17/23 16:17 BP 151/57 H 05/17/23 16:17 Pulse Ox 92 05/17/23 16:17 O2 Del Method Nasal Cannula 05/17/23 16:17 O2 Flow Rate 6 05/17/23 16:17 Oxygen Flow Rate 4 05/17/23 14:48 BMI result Body Mass Index 27.2 Const: Other: ill appearing Nutritional Appearance: obese Orientation/consciousness: oriented to person and patient oriented x3 Limitations: no limitations HEENT: Head: Yes normal to inspection Ears: external ears normal General nose exam: Normal external nose present Mouth: Normal oral and palatal mucosa present and oropharynx normal Throat: Yes posterior oropharynx normal Eyes: General: appearance normal, both eyes and all related structures Neck: Other: supple Neck: Yes normal visual inspection Chest: Chest palpation & inspection: normal inspection of the chest Resp: Other: diffuse wheezing bilaterally Cardio: Jugular venous distension: no JVD Rate: regular rate Rhythm: regular rhythm Heart sounds: S1 normal heart sound present and S2 normal heart sound present GI: Inspection: Yes normal to inspection Palpation (GI): Soft to palpation, nontender and No hepatosplenomegaly present Auscultation: normal bowel sounds : General: Yes no CVA tenderness Back/Spine/Pelvis: Back: no CVA tenderness Skin: General skin exam: no rashes or lesions noted Neuro: General: oriented to person and patient oriented x3 Cranial nerves: Yes CN's II-XII intact bilaterally Motor exam (neuro): 5/5 motor strength present throughout Sensory Exam: No Sensory deficit (Neuro) Extrem: General: Yes normal to inspection Psych: Appearance: grossly normal Course Reevaluation(s) Reevaluation #1: Patient is febrile, short of breath, diffuse wheezing. Radiologist read a Right middle lobe infiltrate. I will start abx and get patient treated. Time: 15:53 Reevaluation #2: I spent 40 minutes of critical care, with interventions, assessments, speaking to patient, consultants, and family. Patient initially called as sepsis alert Reevaluation #3: Patient with pneumonia she is not septic Time: 15:54 Medications Administered Discontinued Medications Generic Name Dose Route Start Last Admin Trade Name Jordon PRN Reason Stop Dose Admin Acetaminophen 975 mg 05/17/23 14:52 05/17/23 15:24 Acetaminophen 325 Mg Tablet PO 05/17/23 14:53 975 mg ONCE ONE Administration Albuterol Sulfate 5 mg/ 0 mg 05/17/23 15:35 05/17/23 15:38 Albuterol/Ipratropium 3 ml INHALE 05/17/23 15:36 1 each ONCE ONE Administration Sodium Chloride 1,710 mls @ 1,710 mls/hr 05/17/23 15:03 05/17/23 15:15 Ns 30 ml/kg infuse over 1 hr (1710 ml) 05/17/23 16:02 1,710 mls/hr IV Administration .Q1H STA Ceftriaxone Sodium 1 gm/ 50 mls @ 100 mls/hr 05/17/23 15:50 05/17/23 16:01 Sodium Chloride IV 05/17/23 16:19 100 mls/hr ONCE ONE Administration Medical Decision Making Differential Diagnosis Differential Diagnoses: The differential diagnosis associated with the presentation includes (pneumonia, influenze, covid, sepsis, COPD were all considered) Admission/Observation Consideration of admission/observation: Escalation of care including admission/observation considered (upon arrival patient was considered for admission) Consult Healthcare Provider Management of the patient was discussed with: Hospitalist Lab Data 05/17/23 15:24 05/17/23 15:23 Labs: Lab Results 05/17/23 05/17/23 05/17/23 Range/Units 15: 15:24 15:25 WBC 18.5 H (4.8-10.8) X10*3/uL RBC 4.31 D (4.20-5.50) X10*6/uL Hgb 11.5 L D (12.0-16.0) g/dl Hct 38.6 D (37.0-47.0) % MCV 89.6 (80.0-98.0) fL MCH 26.7 L (27.0-33.0) pg MCHC 29.8 L (31.0-35.0) g/dl RDW 15.2 (11.0-16.0) % Plt Count 250 (160-400) X10*3/uL MPV 10.4 (9.4-12.3) fL Immature Gran % (Auto) 0.7 H (0.0-0.4) % Neut % (Auto) 85.9 H (45-73) % Lymph % (Auto) 6.7 L (20-40) % [place] % (Auto) 6.1 (2-11) % Eos % (Auto) 0.2 (0-4) % Baso % (Auto) 0.4 (0-2) % Lymph # (Auto) 1.2 (1.2-4.9) X10*3/uL [place] # (Auto) 1.1 (0.1-1.2) X10*3/uL Eos # (Auto) 0.0 (0.0-0.4) X10*3/uL Baso # (Auto) 0.1 (0.0-0.2) X10*3/uL Abs Immat Gran (auto) 0.13 H (0.00-0.03) X10*3/uL Absolute Neuts (auto) 15.9 H (2.0-8.3) x10*3/uL Absolute Nucleated RBC 0.020 H (0.0-0.012) X10*3/uL Nucleated RBC % (auto) 0.1 (0.0-0.2) /100WBC PT 15.2 H (11.1-13.3) SEC INR 1.3 H (0.9-1.1) VBG pH (7.32-7.43) VBG pCO2 mmHg VBG pO2 mmHg VBG HCO3 (22-26) mmol/L VBG O2 Saturation % VBG Base Excess mmol/L Sodium 142 (135-145) mmol/L Potassium 3.3 (3.3-5.1) mmol/L Chloride 98 (96-108) mmol/L Carbon Dioxide 33 H (22-29) mmol/L Anion Gap 14 (12-20) BUN 6 L (9-16) mg/dL Creatinine 0.48 L (0.5-1.4) mg/dL Estim Creat Clear Calc 89.3 Estimated GFR > 60 Random Glucose 103 (60-115) mg/dL Lactic Acid 1.2 (0.5-2.0) mmol/L Calcium 10.0 (8.4-10.2) mg/dL Total Bilirubin 0.4 (0.0-1.0) mg/dL Influenza Type A (PCR) (Negative) Influenza Type B (PCR) (Negative) RSV RNA Qual (PCR) (Negative) SARS-CoV-2 RNA (RT-PCR) (Negative) 05/17/23 05/17/23 Range/Units 15:26 15:32 WBC (4.8-10.8) X10*3/uL RBC (4.20-5.50) X10*6/uL Hgb (12.0-16.0) g/dl Hct (37.0-47.0) % MCV (80.0-98.0) fL MCH (27.0-33.0) pg MCHC (31.0-35.0) g/dl RDW (11.0-16.0) % Plt Count (160-400) X10*3/uL MPV (9.4-12.3) fL Immature Gran % (Auto) (0.0-0.4) % Neut % (Auto) (45-73) % Lymph % (Auto) (20-40) % [place] % (Auto) (2-11) % Eos % (Auto) (0-4) % Baso % (Auto) (0-2) % Lymph # (Auto) (1.2-4.9) X10*3/uL [place] # (Auto) (0.1-1.2) X10*3/uL Eos # (Auto) (0.0-0.4) X10*3/uL Baso # (Auto) (0.0-0.2) X10*3/uL Abs Immat Gran (auto) (0.00-0.03) X10*3/uL Absolute Neuts (auto) (2.0-8.3) x10*3/uL Absolute Nucleated RBC (0.0-0.012) X10*3/uL Nucleated RBC % (auto) (0.0-0.2) /100WBC PT (11.1-13.3) SEC INR (0.9-1.1) VBG pH 7.48 H (7.32-7.43) VBG pCO2 53 mmHg VBG pO2 90 mmHg VBG HCO3 39 H (22-26) mmol/L VBG O2 Saturation 96.0 % VBG Base Excess 14.0 mmol/L Sodium (135-145) mmol/L Potassium (3.3-5.1) mmol/L Chloride (96-108) mmol/L Carbon Dioxide (22-29) mmol/L Anion Gap (12-20) BUN (9-16) mg/dL Creatinine (0.5-1.4) mg/dL Estim Creat Clear Calc Estimated GFR Random Glucose (60-115) mg/dL Lactic Acid (0.5-2.0) mmol/L Calcium (8.4-10.2) mg/dL Total Bilirubin (0.0-1.0) mg/dL Influenza Type A (PCR) NEGATIVE (Negative) Influenza Type B (PCR) NEGATIVE (Negative) RSV RNA Qual (PCR) NEGATIVE (Negative) SARS-CoV-2 RNA (RT-PCR) NEGATIVE (Negative) ABG Data ABG Results: vbg shows alkalosis despite elevated CO as interpreted by me Independent Interpretation I performed an independent interpretation of an: Plain X-Ray (chronic changes) Radiology Impression Discussion of test interpretation with radiology: I have reviewed the radiologist's reading. (radiology feels there is a right sided infiltrate) Independent Historian Clinical information obtained from an independent historian. History obtained from or confirmed by: Spouse and EMS External Record Review External record reviewed: Outpatient record Chronic Conditions Patient?s care impacted by: Diabetes and Other (COPD) Discharge Plan Discharge Clinical Impression: Pneumonia Qualifiers: Pneumonia type: due to unspecified organism Laterality: right Lung location: middle lobe of lung Qualified Code(s): J18.9 - Pneumonia, unspecified organism Respiratory failure Qualifiers: Chronicity: acute on chronic Respiratory failure complication: hypoxia Qualified Code(s): J96.21 - Acute and chronic respiratory failure with hypoxia Patient Disposition: Admitted As Inpatient
[2023-05-17] MEDS: Acetaminophen 325 MG TABLET 975 MG PO (15:24)
[2023-05-17 15:33] LABS: MANUAL DIFF FLAG NO
[2023-05-17 15:37] LABS: Venous Blood Gas Refer to POC result
[2023-05-17 15:37] LABS: VBG HCO3 39 mmol/L (22-26); VBG pCO2 53 mmHg; VBG pH 7.48 (7.32-7.43); VBG pO2 90 mmHg
--- NOTE | 2023-05-17 15:37 | MHC.EDTECH ---
THIS PCT ASSUMED CARE OG PT AT 1500 ,BLOOD DRAW INCLUDING LACTIC ACID AND BOTH SETS OF BLOOD CULTURE ,RSV /COVID SWAB COLLECTED AND URINE SAMPLE ALL SENT TO LAB ,VITALS SIGN TAKEN RN AUGUST AWARE OF PT HIGH TEMP ,HIGH RESP AND HIGH HEART RATE ,PT COMFORTABLE AT THIS TIME ,PT ON RENDERER ,RT IN ROOM GIVING BREATHING TREATMENT .
[2023-05-17] MEDS: Albuterol Sulfate 5 MG, Albuterol/Iprat 2.5/0.5MG 3 ML 3 ML INHALE (15:38)
[2023-05-17 15:46] LABS: Lactic Acid 1.2 mmol/L (0.5-2.0)
[2023-05-17 15:48] LABS: Anion Gap 14 (12-20); Bilirubin Total 0.4 mg/dL (0.0-1.0); Blood Urea Nitrogen 6 mg/dL (9-16); Carbon Dioxide 33 mmol/L (22-29); Chloride 98 mmol/L (96-108); Creatinine Clr Calc Pharmacy 89.3; Estimated Glomerular Filt Rate > 60; Glucose Random 103 mg/dL (60-115); Potassium 3.3 mmol/L (3.3-5.1); Sodium 142 mmol/L (135-145)
[2023-05-17 15:50] LABS: INTERNATIONAL NORM RATIO 1.3 (0.9-1.1); Prothrombin Time 15.2 SEC (11.1-13.3)
[2023-05-17 15:58] LABS: Basophils Absolute Auto 0.1 X10*3/uL (0.0-0.2); Basophils Percent Auto 0.4 % (0-2); Eosinophils Percent Auto 0.2 % (0-4); Hematocrit 38.6 % (37.0-47.0); Hemoglobin 11.5 g/dl (12.0-16.0); Imm Gran Abs Auto 0.13 X10*3/uL (0.00-0.03); Imm Gran Pct Auto 0.7 % (0.0-0.4); Lymphocytes Absolute Auto 1.2 X10*3/uL (1.2-4.9); Lymphocytes Percent Auto 6.7 % (20-40); Mean Corpuscular HGB Conc 29.8 g/dl (31.0-35.0); Mean Corpuscular Hemoglobin 26.7 pg (27.0-33.0); Mean Corpuscular Volume 89.6 fL (80.0-98.0); Mean Platelet Volume 10.4 fL (9.4-12.3); Monocytes Absolute Auto 1.1 X10*3/uL (0.1-1.2); Monocytes Percent Auto 6.1 % (2-11); NRBC Pct Auto 0.1 /100WBC (0.0-0.2); Neutrophils Absolute Auto 15.9 x10*3/uL (2.0-8.3); Neutrophils Percent Auto 85.9 % (45-73); Platelet Count 250 X10*3/uL (160-400); Red Blood Count 4.31 X10*6/uL (4.20-5.50); Red Cell Distribution Width 15.2 % (11.0-16.0); White Blood Count 18.5 X10*3/uL (4.8-10.8)
[2023-05-17] MEDS: cefTRIAXone sodium 1 GM in 0.9 % Sodium Chloride 50 ML IV (16:01)
--- NOTE | 2023-05-17 16:12 | P.HPHOSP_ITS ---
History of Present Illness Date of Service: 05/17/23 Chief Complaint: Shortness of breath 62-year-old female with a past medical history of hypertension, hyperlipidemia, diabetes, COPD, ativer smoker of at least 1 PPD. Patient was brought in from an urgent for evaluation for acute hypoxic respritory failure. She has been feeling weak, lethargic with difficulty breating since yesterday a long with fever. At the urgent care, she was reported to have O2 sat of 70s on 2liters. Here in ED also noted to have O2 sat of 75 on 3 liter, fever of 101. Work up has included WBC of 18, negative covid, flu and RSV. VBG ph 7.48 pCO2 53, PO2 90. CXR show Patchy airspace disease most likely pneumonia on the right and\ prominent interstitial markings. ED treatment: Ceftriaxone and Azithro, Bronchodilators by Neb. O2 sat is presently 92 on 6 liters Review of Systems 2 Review of Systems: Gen: + fever Resp: + sob, + cough CV: no chest, no BARON, no leg edema GI: No n/v, no abd pain Neuro: No confusion Yes all other systems are reviewed and are negative [facility] Medical History Type 2 diabetes mellitus without complication, with no history of insulin use Mixed dyslipidemia Type 2 diabetes mellitus with other diabetic kidney complication Essential hypertension Type 2 diabetes mellitus without complication, with no history of insulin use Smoker unmotivated to quit Postlaminectomy syndrome of cervical region Seasonal allergic rhinitis Degenerative disc disease, cervical COPD (chronic obstructive pulmonary disease) Postmenopause Dyslipidemia GERD (gastroesophageal reflux disease) Family History Mother Diabetes Sister Diabetes Mental health disorder Brother Diabetes Father HTN (hypertension) Surgical History H/O cervical discectomy History of esophagogastroduodenoscopy (EGD) Hx of colonoscopy Social History Household Members: Significant Other Housing: Other Housing Other:: Mobile Home Do you presently have visiting nurse or other home services: Yes ([employer]) Alcohol intake: never Patient Tobacco Use Status: Current everyday Tobacco user Tobacco use type: Cigarette Cigarette Packs Per Day: 2 Cigarettes Per Day: 40.0 e-Cigarette/Vaping Use: Never Used Second Hand Smoke Exposure: No Advance Directives Date on File: 09/20/21 service: No Current occupational status: unemployed Cognitive needs: No Hearing needs: No Vision needs: Yes Meds Allergies Allergy/AdvReac Type Severity Reaction Status Date / Time amoxicillin [AMOXICILLIN] Allergy Intermediate RASH Verified 05/17/23 14:47 Active Medications: Current Medications Ceftriaxone Sodium 1 gm/ (Sodium Chloride) 50 mls @ 100 mls/hr IV ONCE ONE Stop: 05/17/23 16:19 Last Admin: 05/17/23 16:01 Dose: 100 mls/hr Azithromycin 500 mg/ Sodium (Chloride) 250 mls @ 125 mls/hr IV ONCE ONE Stop: 05/17/23 17:49 Home Medications Medication Instructions Recorded Confirmed Last Taken Type aspirin 81 mg tablet,delayed 81 mg PO BEDTIME 01/10/21 11/13/21 09/18/21 History release (Adult Low Dose Aspirin) umeclidinium 62.5 mcg/actuation 1 inh inhalation DAILY 03/31/21 11/13/21 09/19/21 History blister powder for inhalation metformin 1,000 mg tablet 1,000 mg PO BID 01/01/23 Unknown History fluticasone propionate 220 2 puff inhalation BID 03/25/23 Unknown History mcg/actuation HFA aerosol inhaler (Flovent HFA) Physical Exam 2 Vital Signs and Narrative: Vital Signs: Last Vital Signs Temp 101.8 F H 05/17/23 15:32 Pulse 101 H 05/17/23 15:40 Resp 28 H 05/17/23 15:40 BP 154/61 H 05/17/23 15:32 Pulse Ox 89 L 05/17/23 15:32 O2 Del Method Nasal Cannula 05/17/23 15:32 O2 Flow Rate 5 05/17/23 15:32 Oxygen Flow Rate 4 05/17/23 14:48 BMI result Body Mass Index 27.2 Const: Other: Constitutional: Alert, in no distress, Mental Status: Oriented to person, place and time. Eyes: Pupils are equal, round and reactive to light. Ear, Nose and Throat: Oropharynx clear, mucous membranes moist. Ears and nose without Respiratory: bilateral wheezes and rhonchi, no accessory muscle use Cardiovascular: S1 S2 regular. No murmurs, rubs or gallops. Gastrointestinal: Abdomen soft, non-tender, non-distended. Normal bowel sounds.? Neurologic: Cranial nerves II-XII grossly intact. No focal neurological deficits. Moves all extremities spontaneously.? Skin: No rashes or lesions.? Musculoskeletal: No cyanosis or clubbing. Psychiatric: Normal mood and affect? Results Labs 05/17/23 15:24 05/17/23 15:23 Labs: Laboratory Results - last 24 hr 05/17/23 05/17/23 05/17/23 15: 15:24 15:25 MCV 89.6 MCH 26.7 L MCHC 29.8 L RDW 15.2 Plt Count 250 MPV 10.4 Immature Gran % (Auto) 0.7 H Neut % (Auto) 85.9 H Lymph % (Auto) 6.7 L [place] % (Auto) 6.1 Eos % (Auto) 0.2 Baso % (Auto) 0.4 Lymph # (Auto) 1.2 [place] # (Auto) 1.1 Eos # (Auto) 0.0 Baso # (Auto) 0.1 Abs Immat Gran (auto) 0.13 H Absolute Neuts (auto) 15.9 H Absolute Nucleated RBC 0.020 H Nucleated RBC % (auto) 0.1 PT 15.2 H INR 1.3 H VBG pH VBG pCO2 VBG pO2 VBG HCO3 VBG O2 Saturation VBG Base Excess Anion Gap 14 Estim Creat Clear Calc 89.3 Estimated GFR > 60 Random Glucose 103 Lactic Acid 1.2 Calcium 10.0 Total Bilirubin 0.4 05/17/23 15:32 MCV MCH MCHC RDW Plt Count MPV Immature Gran % (Auto) Neut % (Auto) Lymph % (Auto) [place] % (Auto) Eos % (Auto) Baso % (Auto) Lymph # (Auto) [place] # (Auto) Eos # (Auto) Baso # (Auto) Abs Immat Gran (auto) Absolute Neuts (auto) Absolute Nucleated RBC Nucleated RBC % (auto) PT INR VBG pH 7.48 H VBG pCO2 53 VBG pO2 90 VBG HCO3 39 H VBG O2 Saturation 96.0 VBG Base Excess 14.0 Anion Gap Estim Creat Clear Calc Estimated GFR Random Glucose Lactic Acid Calcium Total Bilirubin Imaging Radiologist's Impressions: Impressions Chest X-Ray 05/17/23 15:02 IMPRESSION: Patchy airspace disease most likely pneumonia on the right and prominent interstitial markings. Assessment and Plan (1) Acute hypoxic respiratory failure: Status: Acute (2) Pneumonia: Qualifiers: Laterality: right Lung location: middle lobe of lung Pneumonia type: d ue to unspecified organism Qualified Code(s): J18.9 - Pneumonia, unspecified organism Status: Acute (3) COPD (chronic obstructive pulmonary disease): Status: Acute Plan 62 yo F with HLD, DM2, COPD here with dyspnea and being admitted for acute hypoxic respiratory failure, PNA, COPD exacerbation # acute hypoxic resp failure d/t PNA, COPD--Continue oxygen supplementation and treat underlying issues # Sepsis d/t Pneumonia, community acquired type -Continue IV Ceftriaxone +Azithro (05/17), O2 as above # COPD exacerbation--IV steroid, Bronchodilators by Neb scheduled and PRN #Fever --Tylenol # DM2, home meds + SSI, watch for hyperglycemia while on steroid. # HTN--continue home meds # HLD--statin. # tobacco abuse - NRT, cessation discussed # VTE ppx - Lovenox Full code DVT prophylaxis: lovenox Admit for at least 2 midnights for management of acute hypoxic resp failure, Pneumonia needs IV Abx, high risk for decompensation Time Spent With Patient Time: Total time managing care of this patient today ____ minutes. Quality Stroke Does the patient have a stroke diagnosis?: No VTE Prior VTE?: No VTE Risk Level:: Medical - moderate - high VTE Device Contraindication: Treatment Not Indicated VTE Drug Contraindication: N/A - Med Ordered
[2023-05-17 16:22] LABS: Influenza A PCR NEGATIVE (Negative); Influenza B PCR NEGATIVE (Negative); Resp Syncy Virus RNA Qual PCR NEGATIVE (Negative); SARS COV2 PCR INHOUSE NEGATIVE (Negative)
--- NOTE | 2023-05-17 16:41 | MHC.EDTECH ---
pt was inconient of urine ,care given ,bedding change ,pt belongings list done ,pt resting quietly in bed .
[2023-05-17 16:42] LABS: Appearance Urine Cloudy; Color Urine Yellow; Glucose Urine UA 100 mg/dL (Negative); Leukocyte Esterase Urine Trace (Negative); Nitrite Urine Positive (Negative); UMIC TRIGGER UA YES; Urine Blood Negative (Negative); Urine Ketones Negative (Negative); Urine Protein Negative (Neg-Trace)
[2023-05-17] MEDS: Azithromycin 500 MG in 0.9 % Sodium Chloride 250 ML 125 MG IV (16:43)
[2023-05-17 16:49] LABS: Bacteria Urine 4+ (None Seen); Hyaline Casts Urine 0-2 /LPF (0-2); RBC Urine 0-2 /HPF (0-2); Squamous Epithelial Cell Urine 0-2 /HPF (0-2); WBC Urine 0-5 /HPF (0-5)
[2023-05-17] MEDS: Nicotine 21 MG PATCH.TD24 TRANSDERMA (18:02)
[2023-05-17] MEDS: Enoxaparin Sodium 40 MG/0.4 ML SYRINGE SUBCUT (18:03)
[2023-05-17] MEDS: methylPREDNISolone Sod Succ 125 MG/2 ML VIAL 80 MG IVPUSH (18:08)
--- NOTE | 2023-05-17 19:18 | PHA.MEDREC ---
Pharmacy Consult ? Medication Reconciliation Pharmacy has completed the medication reconciliation.Med rec complete, family brought in all her current bottles, since not alert or answering.
[2023-05-17] MEDS: Albuterol/Iprat 2.5/0.5MG 3 ML AMPUL.NEB INHALE (20:02)
--- NOTE | 2023-05-17 20:26 | PC.NURSE ---
Called hospitalist to update on pt condition, they will come assess. Resp. at bedside placing on high flow
[2023-05-17] MEDS: Furosemide 20 MG/2 ML VIAL IVPUSH (20:46)
[2023-05-17 21:05] LABS: ABG Base Excess 7.7 mmol/L; ABG HCO3 37 mmol/L (22-26); ABG pCO2 76 mmHg (32-45); ABG pH 7.29 (7.35-7.45); ABG pO2 67 mmHg (83-108)
--- NOTE | 2023-05-17 21:18 | PC.NURSE ---
after administration of lasix, pt alert oriented. Provider kalie aware
--- NOTE | 2023-05-17 21:59 | P.CONCC_ITS ---
History of Present Illness Data of Consult Service Date: 05/17/23 Requesting physician: Isabell Manzo Primary Care Provider: Unknown Physician HPI Reason for consult: Acute hypoxic respiratory failure with hypercapnia Ms. Kingston is a 62-year-old female with a past medical history of hypertension, hyperlipidemia, diabetes, COPD, active smoker of 2 PPD. She has been feeling weak, lethargic, febrile and reports difficulty breathing since yesterday. At the urgent care, she was reported to have O2 sat of 70s on 2liters. Here in ED, she was also noted to have O2 sat of 75 on 3 liter, fever of 101. Work up has included WBC of 18, negative covid, flu and RSV. VBG ph 7.48 pCO2 53, PO2 90. CXR show Patchy airspace disease most likely pneumonia on the right and\ prominent interstitial markings.She was given Ceftriaxone and Azithromycin, Bronchodilators by Nebulizer and admitted to the medical floor.? This evening,?the nurse reported that the patient was having more difficulty breathing, she was lethargic, and had altered mentation after being placed on high-flow O2.? ABG showed respiratory acidosis with hypercapnia. On my exam the patient was alert and oriented x3, managing her secretions, answering questions appropriately. She was breathing easy with no accessory muscle use noted. Rhonchi auscultated throughout bilaterally.? Repeat chest x-ray now showing a small focus of atelectasis versus infiltrate is seen in the mid right lung.? Chest CT without contrast ordered. Patient will be started on BiPAP and transferred to the ICU. Review of Systems 2 Constitutional: Constitutional: Reports as per HPI [facility] Past Medical History Medical History Type 2 diabetes mellitus without complication, with no history of insulin use Mixed dyslipidemia Type 2 diabetes mellitus with other diabetic kidney complication Essential hypertension Type 2 diabetes mellitus without complication, with no history of insulin use Smoker unmotivated to quit Postlaminectomy syndrome of cervical region Seasonal allergic rhinitis Degenerative disc disease, cervical COPD (chronic obstructive pulmonary disease) Postmenopause Dyslipidemia GERD (gastroesophageal reflux disease) Family History Family History Mother Diabetes Sister Diabetes Mental health disorder Brother Diabetes Father HTN (hypertension) Surgical History Surgical History H/O cervical discectomy History of esophagogastroduodenoscopy (EGD) Hx of colonoscopy Social History Social History Household Members: Significant Other Housing: House Housing Other:: Mobile Home Do you presently have visiting nurse or other home services: 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) Alcohol intake: never Patient Tobacco Use Status: Current everyday Tobacco user Tobacco use type: Cigarette Cigarette Packs Per Day: 2 Cigarettes Per Day: 40.0 e-Cigarette/Vaping Use: Never Used Second Hand Smoke Exposure: No Advance Directives Date on File: 09/20/21 service: No Current occupational status: unemployed Cognitive needs: No Hearing needs: No Vision needs: Yes Meds Allergies Allergy/AdvReac Type Severity Reaction Status Date / Time amoxicillin [AMOXICILLIN] Allergy Intermediate RASH Verified 05/17/23 14:47 Active Medications: Current Medications Acetaminophen (Acetaminophen 325 Mg Tablet) 650 mg PO Q6H PRN PRN Reason: Pain, Mild (Pain Scale 1-3) Albuterol Sulfate (Albuterol Sulfate (0.083%) 2.5 Mg/3 Ml Vial.Neb) 2.5 mg INHALE Q2H PRN PRN Reason: Shortness of Breath/Wheezing Albuterol/Ipratropium (Albuterol/Iprat 2.5/0.5mg 3 Ml Ampul.Neb) 3 ml INHALE RQ4H WHILE AWAKE [facility] Last Admin: 05/17/23 20:02 Dose: 3 ml Benzonatate (Benzonatate 100 Mg Capsule) 100 mg PO TID PRN PRN Reason: Cough Enoxaparin Sodium (Enoxaparin Sodium 40 Mg/0.4 Ml Syringe) 40 mg SUBCUT Q24H [facility] Last Admin: 05/17/23 18:03 Dose: 40 mg Azithromycin 500 mg/ Sodium (Chloride) 250 mls @ 125 mls/hr IV Q24H MOUSTAPHA Ceftriaxone Sodium 1 gm/ (Sodium Chloride) 100 mls @ 200 mls/hr IV Q24H MOUSTAPHA Magnesium Hydroxide (Milk Of Magnesia 30 Ml Oral.Susp) 30 ml PO DAILY PRN PRN Reason: Constipation Melatonin (Melatonin 3 Mg Tablet) 6 mg PO BEDTIME PRN PRN Reason: Insomnia Methylprednisolone Sodium Succinate (Methylprednisolone Sod Succ 40 Mg/Ml Vial) 40 mg IVPUSH Q6H [facility] Nicotine (Nicotine 21 Mg Patch.Td24) 21 mg TRANSDERMA DAILY [facility] Last Admin: 05/17/23 18:02 Dose: 21 mg Nicotine Polacrilex (Nicotine Polacrilex Lozenge 2 Mg Lozenge) 2 mg BUCCAL Q2H PRN PRN Reason: Nicotine Cravings Ondansetron HCl (Ondansetron Hcl 4 Mg/2 Ml Vial) 4 mg IVPUSH Q8H PRN PRN Reason: Nausea and Vomiting Sodium Chloride (0.9 % Sodium Chloride Flush 3 Ml Syringe) 3 ml IVFLUSH QSHIFT [facility] Home Medications Medication Instructions Recorded Confirmed Last Taken Type aspirin 81 mg tablet,delayed 81 mg PO BEDTIME 01/10/21 05/17/23 05/16/23 History release (Adult Low Dose Aspirin) umeclidinium 62.5 mcg/actuation 1 inh inhalation DAILY 03/31/21 05/17/23 05/17/23 History blister powder for inhalation metformin 1,000 mg tablet 1,000 mg PO BID 01/01/23 05/17/23 05/17/23 History fluticasone propionate 220 1 puff inhalation BID 03/25/23 05/17/23 05/17/23 History mcg/actuation HFA aerosol inhaler (Flovent HFA) linaclotide 145 mcg capsule 145 mcg PO DAILY 05/17/23 05/17/23 05/17/23 History (Linzess) Physical Exam 2 Vital Signs: Vital Signs: Last Vital Signs Temp 97.9 F 05/17/23 21:06 Pulse 91 05/17/23 21:34 Resp 36 H 05/17/23 21:34 BP 141/67 H 05/17/23 21:34 Pulse Ox 91 L 05/17/23 21:34 O2 Del Method High Flow Nasal C annula 05/17/23 21:34 O2 Flow Rate 30.8 05/17/23 21:34 Oxygen Flow Rate 6 05/17/23 19:58 BMI result Body Mass Index 27.2 Const: General: cooperative, no acute distress and alert O rientation/consciousness: patient oriented x3 (answering appropriately.) HEENT: Head: Yes normal to inspection General nose exam: Normal external nose present (Nares patent, septum midline, sinuses nontender bilaterally.) M outh: Normal oral and palatal mucosa present (No thrush, tongue in midline, mucosa moist.) Throat: Yes other (No erythema, no exudate.) Neck: Neck: Yes supple (no thyromegaly, trachea midline.) Carotids: normal carotid upstroke Resp: Effort & Inspection: normal respiratory effort, able to speak in complete sentences, not labored, no respiratory distress, no use of accessory muscles and symmetric chest movement Auscultation: rhonchi throughout Cardio: Jugular venous distension: no JVD Rate: regular rate Rhythm: r egular rhythm Heart sounds: no gallops, no murmurs and no rubs Peripheral pulses: Peripheral pulses 2+ throughout GI: Palpation (GI): Soft to palpation (nondistended.) and nontender Neuro: General: patient oriented x3 (answering appropriately.) Extrem: General: Yes full ROM, Yes capillary refill normal and Yes no clubbing, cyanosis or edema Psych: Affect: normal affect Attitude: cooperative Results Labs 05/17/23 15:24 05/17/23 15:23 Labs: Short CBC 05/17/23 Range/Units 15:24 WBC 18.5 H (4.8-10.8) X10*3/uL Hgb 11.5 L D (12.0-16.0) g/dl Hct 38.6 D (37.0-47.0) % Plt Count 250 (160-400) X10*3/uL BMP 05/17/23 15:23 Sodium 142 Potassium 3.3 Chloride 98 Carbon Dioxide 33 H BUN 6 L Creatinine 0.48 L Calcium 10.0 Liver Function 05/17/23 Range/Units 15:23 Total Bilirubin 0.4 (0.0-1.0) mg/dL Urine 05/17/23 Range/Units 15:28 Urine Color Yellow Urine Appearance Cloudy Urine pH 7.0 (5.0-9.0) Ur Specific [place] 1.010 (1.005-1.025) Urine Protein Negative (Neg-Trace) mg/dL Urine Glucose (UA) 100 H (Negative) mg/dL ABG ABG results: pH 7.29 pCO2 76 pO2 67 HCO3 37 B.E. 7.7 Interpretation: Respiratory acidosis with hypercapnea Assessment and Plan (1) Acute hypoxic respiratory failure: Status: Acute (2) Respiratory failure: Qualifiers: Chronicity: acute on chronic Respiratory failure complication: hypoxia Qualified Code(s): J96.21 - Acute and chronic respiratory failure with hypoxia Status: Acute (3) Pneumonia: Qualifiers: Laterality: right Lung location: middle lobe of lung Pneumonia type: d ue to unspecified organism Qualified Code(s): J18.9 - Pneumonia, unspecified organism Status: Acute (4) Type 2 diabetes mellitus without complication, with no history of insulin use: Status: Acute (5) COPD (chronic obstructive pulmonary disease): Qualifiers: COPD type: COPD with acute exacerbation Qualified Code(s): J44.1 - Chronic obstructive pulmonary disease with (acute) exacerbation Status: Acute (6) Smoker unmotivated to quit: Status: Acute Plan Assessment: The patient? is a 62-year-old female with a history of hypertension, hyperlipidemia, diabetes, COPD, active smoker of 2 PPD admitted with acute hypoxic respiratory failure, PNA, COPD exacerbation. Plan: Neuro: ? No acute issues. Cardiac:? No acute issues. Pulmonary:? Acute hypoxic respiratory failure with hypercapnia.? Community- acquired pneumonia. ? COPD exacerbation. ? Continue BiPAP.? Continue IV ceftriaxone, azithromycin.? IV steroids, bronchodilators.? Chest CT pending. Renal:? ? No acute issues. Endo: ? No acute issues.? DM 2.? SSI, watch for hyperglycemia while on steroids. GI:? No acute issues. ID:? Sepsis.? Fluid resuscitated with 30 mg/kg in ED. Continue antibiotics. Heme/Onc:? No acute issues. Psych: No acute issues. Prophylaxis:? ? Lovenox, PPI Diet:? NPO? Time Spent With Patient Time: Total time managing care of this patient today ____ minutes.
--- NOTE | 2023-05-17 22:27 | PM.EVENT ---
Event Note Date of Service: 05/17/23 Event Note: I was contacted around 820 pm that the patient having more difficulties breathing and altered mentation after being placed on Highflow O2 for increased O2 requirements. ABG, CXR ordered; ABG showed respiratory acidosis with hypercapnia Started on BiPaP. Critical care evaluated the patient with a plan to transfer to ICU. Time Spent With Patient Time: Total time managing care of this patient today ____ minutes.
[2023-05-17 23:23] LABS: ABG Refer to POC result
[2023-05-17] MEDS: 0.9 % Sodium Chloride Flush 3 ML SYRINGE IVFLUSH (23:45)
[2023-05-17] MEDS: methylPREDNISolone Sod Succ 40 MG/ML VIAL IVPUSH (23:47)
[2023-05-18] VITALS (30 sets, daily range): BP systolic 112–180; BP diastolic 47–71; PULSE 73–94; RESP 10–96; TEMP 36.4–36.9; O2SAT 87–100; BMI 26.7
--- NOTE | 2023-05-18 | ECG_ITS ---
Test Reason : low k Blood Pressure : / mmHG Vent. Rate : 080 BPM Atrial Rate : 080 BPM P-R Int : 130 ms QRS Dur : 092 ms QT Int : 382 ms P-R-T Axes : 076 085 112 degrees QTc Int : 440 ms Normal sinus rhythm Nonspecific T wave abnormality Abnormal ECG When compared with ECG of 28-OCT-2019 20:22, Nonspecific T wave abnormality, worse in Lateral leads Referred By: Wolf Arzola Electronically Signed By:JAMES YI
[2023-05-18 04:43] LABS: VBG Base Excess 11.8 mmol/L; VBG HCO3 38 mmol/L (22-26); VBG pCO2 60 mmHg; VBG pH 7.41 (7.32-7.43); VBG pO2 55 mmHg
[2023-05-18 05:11] LABS: Hematocrit 39.5 % (37.0-47.0); Hemoglobin 11.5 g/dl (12.0-16.0); Mean Corpuscular HGB Conc 29.1 g/dl (31.0-35.0); Mean Corpuscular Hemoglobin 26.3 pg (27.0-33.0); Mean Corpuscular Volume 90.4 fL (80.0-98.0); Mean Platelet Volume 10.5 fL (9.4-12.3); Platelet Count 254 X10*3/uL (160-400); Red Blood Count 4.37 X10*6/uL (4.20-5.50); Red Cell Distribution Width 15.4 % (11.0-16.0)
[2023-05-18 05:32] LABS: Albumin Level 3.7 g/dL (3.5-5.0); Anion Gap 12 (12-20); Blood Urea Nitrogen 8 mg/dL (9-16); Calcium 9.6 mg/dL (8.4-10.2); Carbon Dioxide 33 mmol/L (22-29); Chloride 101 mmol/L (96-108); Creatinine Clr Calc Pharmacy 86.4; Estimated Glomerular Filt Rate > 60; Glucose Random 174 mg/dL (60-115); Magnesium 1.5 mg/dL (1.6-2.6); Phosphorus 2.6 mg/dL (2.7-4.5); Potassium 3.1 mmol/L (3.3-5.1); Sodium 143 mmol/L (135-145)
[2023-05-18] MEDS: methylPREDNISolone Sod Succ 40 MG/ML VIAL IVPUSH ×3 (05:54→19:02)
[2023-05-18] MEDS: Potassium Chloride Packet 20 MEQ PACKET PO (05:55)
[2023-05-18] MEDS: Magnesium Sulfate/D5W 1 GM/100 ML PIGGYBACK IV (05:55)
[2023-05-18 06:19] LABS: Venous Blood Gas Refer to POC result
--- NOTE | 2023-05-18 07:00 | CA_ITS ---
Transthoracic Echocardiogram Patient (Last, First, Middle): Maria Elena Kingston E Gender: Female Date of : 1960 Age: 63 Procedure Date: 05/18/2023 Procedure Type: Transthoracic Echocardiogram Location: ICU Height: 144.78 cm Weight: 55.79 kg BSA: 1.46 m2 Heart Rate: bpm BP: 146 / 55 mmHg Die Maker Bench Stamping: XIMENA Referring MD: Wolf Arzola MD Symptoms: chf Study Quality: Fair ECG Rhythm: Sinus Conclusions: - The left ventricular systolic function is mildly decreased. The calculated ejection fraction is 48% by biplane method. Findings Left Ventricle Normal left ventricular cavity size. There is mildly increased left ventricular wall thickness. The left ventricular systolic function is mildly decreased. The calculated ejection fraction is 48% by biplane method. There is mild global hypokinesis. Evidence suggests grade I (mild) diastolic dysfunction. Right Ventricle Normal right ventricular cavity size and systolic function. Atria Both atria are normal in size. Aortic Valve There is mild calcification of the aortic valve. There is no aortic valve stenosis. There is no aortic valve regurgitation. Mitral Valve There is mild anterior mitral leaflet thickening. There is mild mitral annular calcification. There is trace mitral valve regurgitation. There is no mitral valve stenosis. Pulmonic Valve The pulmonic valve is likely normal. Tricuspid Valve There is trace tricuspid valve regurgitation. There is no evidence of pulmonary hypertension. Great Vessels The asc aorta is normal in size. Venous The inferior vena cava is mildly dilated and collapses less than 50% with inspiration. Pericardium/Pleural There is no evidence of pericardial effusion. Prior Study Comparison Changes noted compared to prior study dated: 11/05/2016. LVEF lower. Recommendations, Care & Conclusions No obvious valvular pathology seen on this study. Measurements 2D Linear Measurements IVSd: 1.14 0.6-0.9/0.6-1.0 cm LVIDd: 4.44 3.9-5.3/4.2-5.9 cm LVIDd Index: 3.04 2.4-3.2/2.2-3.1 cm/m2 LVIDs: 3.09 2.0-3.6 cm LVPWd: 1.06 0.7-1.1 cm LA Diam: 3.30 2.7-3.8/3.0-4.0 cm LAIDs Index: 2.26 1.5-2.3 cm/m2 LV Mass: 213.44 67-162/88-224 g LV Mass Index: 146.19 43-95/49-115 g/m2 LVOT Diam: 1.90 3.0+(-)1.3 cm 2D Systolic Function EF 4C: 51.30 >55% EF 2C: 50.90 >55% EF BiP: 47.70 >55% Mitral Valve MV Pk E: 0.96 MV PK A: 1.14 MV Decel Time: 182.00 E/A: 0.80 E'Lateral: 5.77 E'Medial: 5.68 E/E' Med: 16.90 E/E' Lat: 16.60 PHT: 53.00 MVA PHT: 4.15 Decel Phillips: 5.27 Aortic Valve AoV Pk Juancarlos: 1.29 AoV Mn Juancarlos: 0.86 AoV VTI: 0.27 AoV Pk Grad: 7.00 Aov Mn Grad: 3.00 YUDELKA Cont.VTI: 2.01 LVOT LVOT Pk Juancarlos: 0.91 LVOT Mn Juancarlos: 0.69 LVOT VTI: 0.19 LVOT Pk Grad: 3.00 LVOT Mn Grad: 2.00 LVOT Diam: 1.90 LVOT Area: 2.84 Diastolic Function MV Pk E: 0.96 MV Pk A: 1.14 E/A: 0.80 E'Medial: 5.68 E/E' Med: 16.90 E' Laterial: 5.77 E/E' Lat: 16.60 Right Ventricle TAPSE (mm): 20.00 TVS' Juancarlos: 9.24 Tricuspid Valve TR Pk Juancarlos: 1.75 TR Pk Grad: 12.00 RA Press: 15.00 RVSP: 27.00 Great Vessels Aorta Sinus of Valsalva: 3.20 2.0-3.5 cm Ao Asc: 3.60 2.1-3.4 cm Pulmonary Valve PV Pk Juancarlos: 0.99 Peak PV Grad: 4.00 Updated in Other Vendor System with Status of Final Deejay Leon MD electronically signed on 05/18/2023 12:04:17 PM with status of Final
[2023-05-18] MEDS: Albuterol/Iprat 2.5/0.5MG 3 ML AMPUL.NEB INHALE ×4 (07:50→20:07)
[2023-05-18] MEDS: Nicotine 21 MG PATCH.TD24 TRANSDERMA (08:56)
[2023-05-18 10:10] LABS: VBG HCO3 34 mmol/L (22-26); VBG pCO2 36 mmHg; VBG pH 7.58 (7.32-7.43); VBG pO2 57 mmHg
[2023-05-18 12:35] LABS: Glucose, Whole Blood 137 mg/dL (60-115)
[2023-05-18] MEDS: 0.9 % Sodium Chloride Flush 3 ML SYRINGE IVFLUSH ×2 (13:23→15:56)
[2023-05-18 13:48] LABS: Venous Blood Gas Refer to POC result
--- NOTE | 2023-05-18 15:51 | MHC.CM.PN ---
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 [facility] home O2 needs but no other DME needs. Discussed post acute d/c needs: pt receptive to [facility] referral for skilled Rn visits. [facility] to transport home; PCP Dr. Nicolas : HCP on file.
[2023-05-18] MEDS: acetaZOLAMIDE sodium 500 MG VIAL 250 MG IVPUSH (15:55)
[2023-05-18] MEDS: cefTRIAXone sodium 1 GM in 0.9 % Sodium Chloride 100 ML IV (15:58)
[2023-05-18 16:02] LABS: VBG Base Excess 16.4 mmol/L; VBG HCO3 43 mmol/L (22-26); VBG pCO2 60 mmHg; VBG pH 7.46 (7.32-7.43); VBG pO2 37 mmHg
[2023-05-18] MEDS: Azithromycin 500 MG in 0.9 % Sodium Chloride 250 ML 125 MG IV (16:21)
[2023-05-18] MEDS: Enoxaparin Sodium 40 MG/0.4 ML SYRINGE SUBCUT (16:22)
--- NOTE | 2023-05-18 16:34 | PM.CCPN ---
Subjective Subjective Date of Service: 05/18/23 Interval History: 63-year-old with COPD came in with altered mental status and increasing shortness of breath CT scan had very subtle areas of bilateral ground-glass a impossible to differentiate between infiltrate versus pulmonary edema clearly she was in acute on chronic hypercarbic respiratory failure and here initially diuresed including use of a seated Bob my because of the markedly alkalotic pH as her pCO2 corrected but she was temporized with BiPAP as well and between diuresis IV steroids presumptive antibiotics for community-acquired infection she is markedly improved pCO2 was down to the 40s the initial pH of 7.6 is now down into the mid 7.4 range much more comfortable but we kept her for the day because the pCO2 came back over 60 when she was on nasal high-flow had and had to spend the night on BiPAP Critical Care Time (minutes): 45 Physical Exam Vital Signs: Vital Signs: Last Vital Signs Temp 97.5 F 05/18/23 16:00 Pulse 82 05/18/23 16:17 Resp 21 H 05/18/23 16:17 BP 135/54 L 05/18/23 16:00 Pulse Ox 97 05/18/23 16:00 O2 Del Method BiPAP 05/18/23 16:00 O2 Flow Rate 40 05/18/23 15:00 FiO2 35 05/18/23 16:00 Oxygen Flow Rate 6 05/17/23 19:58 BMI result Body Mass Index 26.7 Maintained normal sinus rhythm rate approximately 80 on FiO2 is is room air 97% oxygen saturation that was never an issue blood pressure 1 40-150 systolic Bedside echo with normal LV and RV function with no significant primary valve or pericardial disease Diminished bilateral breath sounds but clear-cut bilateral expiratory wheezing Abdomen soft with no organomegaly No significant peripheral edema no neck vein distension and good bilateral carotid upstrokes Objective Data Labs 05/19/23 04:30 05/19/23 04:30 Labs: Laboratory Results - last 24 hr 05/17/23 05/17/23 05/18/23 15:28 21:00 04:38 WBC 17.0 H RBC 4.37 Hgb 11.5 L Hct 39.5 MCV 90.4 MCH 26.3 L MCHC 29.1 L RDW 15.4 Plt Count 254 MPV 10.5 Absolute Nucleated RBC 0.000 Nucleated RBC % (auto) 0.0 O2 Saturation 85.0 ABG pH at Pt Temp 7.29 L ABG pCO2 at Pt Temp 76 H* ABG pO2 at Pt Temp 67 L ABG HCO3 37 H ABG Base Excess (Actual) 7.7 VBG pH VBG pCO2 VBG pO2 VBG HCO3 VBG O2 Saturation VBG Base Excess Sodium 143 Potassium 3.1 L Chloride 101 Carbon Dioxide 33 H Anion Gap 12 BUN 8 L Creatinine 0.49 L Estim Creat Clear Calc 86.4 Estimated GFR > 60 POC Glucose Random Glucose 174 H Calcium 9.6 Phosphorus 2.6 L Magnesium 1.5 L Albumin 3.7 Urine Color Yellow Urine Appearance Cloudy Urine pH 7.0 Ur Specific [place] 1.010 Urine Protein Negative Urine Glucose (UA) 100 H Urine Ketones Negative Urine Blood Negative Urine Nitrite Positive H Ur Leukocyte Esterase Trace H Urine RBC 0-2 Urine WBC 0-5 Ur Squamous Epith Cells 0-2 Urine Bacteria 4+ Hyaline Casts 0-2 05/18/23 05/18/23 05/18/23 04:39 10:05 12:26 WBC RBC Hgb Hct MCV MCH MCHC RDW Plt Count MPV Absolute Nucleated RBC Nucleated RBC % (auto) O2 Saturation ABG pH at Pt Temp ABG pCO2 at Pt Temp ABG pO2 at Pt Temp ABG HCO3 ABG Base Excess (Actual) VBG pH 7.41 7.58 H VBG pCO2 60 36 VBG pO2 55 57 VBG HCO3 38 H 34 H VBG O2 Saturation 81.0 88.0 VBG Base Excess 11.8 12.0 Sodium Potassium Chloride Carbon Dioxide Anion Gap BUN Creatinine Estim Creat Clear Calc Estimated GFR POC Glucose 137 H Random Glucose Calcium Phosphorus Magnesium Albumin Urine Color Urine Appearance Urine pH Ur Specific [place] Urine Protein Urine Glucose (UA) Urine Ketones Urine Blood Urine Nitrite Ur Leukocyte Esterase Urine RBC Urine WBC Ur Squamous Epith Cells Urine Bacteria Hyaline Casts 05/18/23 15:58 WBC RBC Hgb Hct MCV MCH MCHC RDW Plt Count MPV Absolute Nucleated RBC Nucleated RBC % (auto) O2 Saturation ABG pH at Pt Temp ABG pCO2 at Pt Temp ABG pO2 at Pt Temp ABG HCO3 ABG Base Excess (Actual) VBG pH 7.46 H VBG pCO2 60 VBG pO2 37 VBG HCO3 43 H VBG O2 Saturation 57.0 VBG Base Excess 16.4 Sodium Potassium Chloride Carbon Dioxide Anion Gap BUN Creatinine Estim Creat Clear Calc Estimated GFR POC Glucose Random Glucose Calcium Phosphorus Magnesium Albumin Urine Color Urine Appearance Urine pH Ur Specific [place] Urine Protein Urine Glucose (UA) Urine Ketones Urine Blood Urine Nitrite Ur Leukocyte Esterase Urine RBC Urine WBC Ur Squamous Epith Cells Urine Bacteria Hyaline Casts Microbiology Microbiology Results: Microbiology 05/17/23 15:28 Urine Catheterized - Edwards Catheter Urine Culture - Preliminary Gram negative sohail Progress Note: A&P Assessment and plan (1) Acute hypoxic respiratory failure: Status: Acute (2) Respiratory failure: Status: Acute (3) Pneumonia: Status: Acute (4) GERD (gastroesophageal reflux disease): Status: Acute (5) Type 2 diabetes mellitus without complication, with no history of insulin use: Status: Acute (6) COPD (chronic obstructive pulmonary disease): Status: Acute (7) Mixed dyslipidemia: Status: Acute (8) Smoker unmotivated to quit: Status: Acute (9) Gastroparesis: Status: Acute (10) Acute hypercapnic respiratory failure: Status: Acute (11) Chronic hypercapnic respiratory failure: Status: Acute (12) Diastolic CHF with preserved left ventricular function, NYHA class 2: Status: Acute Plan Wrapping up the whole picture I would continue to cover as a community acquired infection at the very least a bronchiolitis but I do believe that there is a a a component of at least interstitial pulmonary edema and will re-evaluate in the morning on nasal high-flow to see if over several hours she can sustain a pCO2 in heard in and in her normal range at home which is probably in the in the 50s and if so and she is down to nocturnal BiPAP she can go upstairs to the floor at some point Quality Stroke Does the patient have a stroke diagnosis?: No VTE Prior VTE?: No VTE Risk Level:: Medical - moderate - high VTE Device Contraindication: Treatment Not Indicated VTE Drug Contraindication: N/A - Med Ordered
[2023-05-18 18:16] LABS: Glucose, Whole Blood 183 mg/dL (60-115)
[2023-05-18] MEDS: Insulin Lispro 100 UNIT/ML 3 ML VIAL SUBCUT (19:02)
--- NOTE | 2023-05-18 19:59 | PC.NURSE ---
Assumed care at 07:00. Patient drowsy, lethargic, oriented to person, place, time, date, vague and forgetful about situation. Pleasant and cooperative with care. Patient was on high flow initially, VBG rechecked and 10 am labs with PCO2 of 30 and alkalotic, FiO2 and flow were increased from 30 LPM and 30% to 40 LPM and 40% to maintain SpO2 goal of 88-92% as patient was staying 85%. Patient continues to be lethargic and drowsy, endorses this and some mild confusion, is also getting IV steroids. Patient VBGs rechecked in afternoon about 16:00 has CO2 of 60 again, placed back on Bipap 16/5 35% rate of 10 until late dinner of 18:00, to go back on Bipap overnight per MD but on high flow for dinner. patient ate well at lunch and dinner, POCs mildly elevated and covered per sliding scale. Patient with inspiratory rhonchi and diminished LS throughout, productive cough of thick prado/greenish sputum collected and sent for cx per MD, and intermittened moist productive cough. patient with distant Heart sounds and tele with sinus rhythm and occasional PVCs and PACs, no edema noted. Scratches to bilateral knees and shins intact. OOB to recliner and commode today with 2 assist, minimal. BM today. UOP slightly low, bladder scanned for 373 ccs at 1039 am, no distress, voided in commode, in purewick and some incontinence as well.
[2023-05-18] MEDS: Gabapentin 400 MG CAPSULE 800 MG PO (20:07)
[2023-05-18 21:05] LABS: Venous Blood Gas Refer to POC result
[2023-05-18 23:57] LABS: Glucose, Whole Blood 145 mg/dL (60-115)
[2023-05-19] VITALS (21 sets, daily range): BP systolic 101–179; BP diastolic 48–86; PULSE 72–95; RESP 12–27; TEMP 36.4–36.8; O2SAT 74–100; BMI 27.1
[2023-05-19] MEDS: methylPREDNISolone Sod Succ 40 MG/ML VIAL IVPUSH ×3 (01:20→12:17)
[2023-05-19 04:37] LABS: VBG Base Excess 4.4 mmol/L; VBG HCO3 29 mmol/L (22-26); VBG pCO2 42 mmHg; VBG pH 7.43 (7.32-7.43); VBG pO2 91 mmHg
[2023-05-19 04:59] LABS: Basophils Percent Auto 0.2 % (0-2); Eosinophils Percent Auto 0.1 % (0-4); Hematocrit 40.5 % (37.0-47.0); Hemoglobin 11.8 g/dl (12.0-16.0); Imm Gran Abs Auto 0.06 X10*3/uL (0.00-0.03); Imm Gran Pct Auto 0.4 % (0.0-0.4); Lymphocytes Absolute Auto 0.7 X10*3/uL (1.2-4.9); Lymphocytes Percent Auto 5.3 % (20-40); MANUAL DIFF FLAG SCAN; Mean Corpuscular HGB Conc 29.1 g/dl (31.0-35.0); Mean Corpuscular Hemoglobin 26.8 pg (27.0-33.0); Mean Corpuscular Volume 91.8 fL (80.0-98.0); Mean Platelet Volume 11.1 fL (9.4-12.3); Monocytes Absolute Auto 0.5 X10*3/uL (0.1-1.2); Monocytes Percent Auto 3.8 % (2-11); Neutrophils Absolute Auto 12.4 x10*3/uL (2.0-8.3); Neutrophils Percent Auto 90.2 % (45-73); Platelet Count 256 X10*3/uL (160-400); Red Blood Count 4.41 X10*6/uL (4.20-5.50); Red Cell Distribution Width 15.3 % (11.0-16.0); SCAN SMEAR FLAG 1; White Blood Count 13.8 X10*3/uL (4.8-10.8)
[2023-05-19 05:10] LABS: Venous Blood Gas Refer to POC result
[2023-05-19 05:28] LABS: Albumin Level 3.8 g/dL (3.5-5.0); Anion Gap 13 (12-20); Blood Urea Nitrogen 11 mg/dL (9-16); Calcium 10.1 mg/dL (8.4-10.2); Carbon Dioxide 27 mmol/L (22-29); Chloride 103 mmol/L (96-108); Creatinine Clr Calc Pharmacy 80.7; Estimated Glomerular Filt Rate > 60; Glucose Random 168 mg/dL (60-115); Sodium 139 mmol/L (135-145)
[2023-05-19 06:04] LABS: Glucose, Whole Blood 178 mg/dL (60-115)
[2023-05-19] MEDS: Insulin Lispro 100 UNIT/ML 3 ML VIAL SUBCUT ×3 (06:16→21:36)
[2023-05-19 06:23] LABS: SLIDE REVIEW VERIFIED
--- NOTE | 2023-05-19 07:01 | P.PNCC_ITS ---
Subjective Subjective Date of Service: 05/19/23 Interval History: 63-year-old female with COPD presented with acute on chronic hypercarbic respiratory failure with altered mental status and this morning pCO2 on BiPAP overnight is in the 40s with a better pH of 7.45 a diminished degree of positive base excess and all laboratory numbers are excellent and she has great improvement in her work of breathing with small minute volume requirement and essentially on room air she hypoxia was not the issue and this is now status post diuresis including use of acetazolamide Critical Care Time (minutes): 35 Physical Exam 2 Vital Signs: Vital Signs: Last Vital Signs Temp 97.7 F 05/19/23 01:00 Pulse 80 05/19/23 06:00 Resp 19 05/19/23 06:00 BP 155/60 H 05/19/23 06:00 Pulse Ox 97 05/19/23 06:00 O2 Del Method BiPAP 05/19/23 06:00 O2 Flow Rate 35 05/18/23 23:00 FiO2 35 05/19/23 06:00 Oxygen Flow Rate 6 05/17/23 19:58 BMI result Body Mass Index 27.1 Vital signs excellent in normal sinus rhythm at rate of approximately 80 Bedside echo with preserved LV and RV systolic function but no longer has distended IVC as she had had yesterday on the bedside exam which had further enhance my impression of a volume overload Abdomen soft no organomegaly Diminished expiratory wheezing No neck vein distension no peripheral edema Objective Data Labs 05/19/23 04:30 05/19/23 04:30 Labs: Laboratory Results - last 24 hr 05/18/23 05/18/23 05/18/23 10:05 12:26 15:58 WBC RBC Hgb Hct MCV MCH MCHC RDW Plt Count MPV Immature Gran % (Auto) Neut % (Auto) Lymph % (Auto) [place] % (Auto) Eos % (Auto) Baso % (Auto) Lymph # (Auto) [place] # (Auto) Eos # (Auto) Baso # (Auto) Abs Immat Gran (auto) Absolute Neuts (auto) Absolute Nucleated RBC Nucleated RBC % (auto) Smear Tech's Comments VBG pH 7.58 H 7.46 H VBG pCO2 36 60 VBG pO2 57 37 VBG HCO3 34 H 43 H VBG O2 Saturation 88.0 57.0 VBG Base Excess 12.0 16.4 Sodium Potassium Chloride Carbon Dioxide Anion Gap BUN Creatinine Estim Creat Clear Calc Estimated GFR POC Glucose 137 H Random Glucose Calcium Phosphorus Magnesium Albumin 05/18/23 05/18/23 05/19/23 18:05 23:46 04:30 WBC 13.8 H RBC 4.41 Hgb 11.8 L Hct 40.5 MCV 91.8 MCH 26.8 L MCHC 29.1 L RDW 15.3 Plt Count 256 MPV 11.1 Immature Gran % (Auto) 0.4 Neut % (Auto) 90.2 H Lymph % (Auto) 5.3 L [place] % (Auto) 3.8 Eos % (Auto) 0.1 Baso % (Auto) 0.2 Lymph # (Auto) 0.7 L [place] # (Auto) 0.5 Eos # (Auto) 0.0 Baso # (Auto) 0.0 Abs Immat Gran (auto) 0.06 H Absolute Neuts (auto) 12.4 H Absolute Nucleated RBC 0.000 Nucleated RBC % (auto) 0.0 Smear Tech's Comments VERIFIED VBG pH VBG pCO2 VBG pO2 VBG HCO3 VBG O2 Saturation VBG Base Excess Sodium 139 Potassium 4.0 D Chloride 103 Carbon Dioxide 27 Anion Gap 13 BUN 11 Creatinine 0.52 Estim Creat Clear Calc 80.7 Estimated GFR > 60 POC Glucose 183 H 145 H Random Glucose 168 H Calcium 10.1 Phosphorus 2.0 L Magnesium 2.0 Albumin 3.8 05/19/23 05/19/23 04:31 05:57 WBC RBC Hgb Hct MCV MCH MCHC RDW Plt Count MPV Immature Gran % (Auto) Neut % (Auto) Lymph % (Auto) [place] % (Auto) Eos % (Auto) Baso % (Auto) Lymph # (Auto) [place] # (Auto) Eos # (Auto) Baso # (Auto) Abs Immat Gran (auto) Absolute Neuts (auto) Absolute Nucleated RBC Nucleated RBC % (auto) Smear Tech's Comments VBG pH 7.43 VBG pCO2 42 VBG pO2 91 VBG HCO3 29 H VBG O2 Saturation 95.0 VBG Base Excess 4.4 Sodium Potassium Chloride Carbon Dioxide Anion Gap BUN Creatinine Estim Creat Clear Calc Estimated GFR POC Glucose 178 H Random Glucose Calcium Phosphorus Magnesium Albumin Microbiology Microbiology Results: Microbiology 05/17/23 15:22 Blood - Venous Blood Culture - Preliminary No growth after 24 hours. 05/17/23 15:22 Blood - Venous Blood Culture - Preliminary No growth after 24 hours. 05/17/23 15:28 Urine Catheterized - Edwards Catheter Urine Culture - Preliminary Gram negative sohail Progress Note: A&P Assessment and plan (1) Diastolic CHF with preserved left ventricular function, NYHA class 2: Status: Acute (2) Chronic hypercapnic respiratory failure: Status: Acute (3) Acute hypercapnic respiratory failure: Status: Acute (4) Acute hypoxic respiratory failure: Status: Acute (5) Respiratory failure: Status: Acute (6) Pneumonia: Status: Acute (7) GERD (gastroesophageal reflux disease): Status: Acute (8) Type 2 diabetes mellitus without complication, with no history of insulin use: Status: Acute (9) COPD (chronic obstructive pulmonary disease): Status: Acute (10) Mixed dyslipidemia: Status: Acute (11) Essential hypertension: Status: Acute (12) Gastroparesis: Status: Acute Plan Acute COPD exacerbation is certainly improved part of it was diastolic CHF certainly can not rule out the possibility of a community-acquired bronchiolitis Will observe on high-flow and if blood gas is comfortable can be transferred upstairs Quality Stroke Does the patient have a stroke diagnosis?: No VTE Prior VTE?: No VTE Risk Level:: Medical - moderate - high VTE Device Contraindication: Treatment Not Indicated VTE Drug Contraindication: N/A - Med Ordered
[2023-05-19] MEDS: Albuterol/Iprat 2.5/0.5MG 3 ML AMPUL.NEB INHALE ×3 (07:55→22:25)
[2023-05-19 08:34] LABS: Glucose, Whole Blood 178 mg/dL (60-115)
[2023-05-19] MEDS: Gabapentin 400 MG CAPSULE 800 MG PO ×3 (08:39→21:36)
[2023-05-19] MEDS: Nicotine 21 MG PATCH.TD24 TRANSDERMA (08:39)
[2023-05-19] MEDS: 0.9 % Sodium Chloride Flush 3 ML SYRINGE IVFLUSH ×3 (08:40→21:39)
[2023-05-19 11:38] LABS: VBG Base Excess 7.2 mmol/L; VBG HCO3 32 mmol/L (22-26); VBG pCO2 49 mmHg; VBG pH 7.42 (7.32-7.43); VBG pO2 193 mmHg
[2023-05-19 11:39] LABS: Venous Blood Gas Refer to POC result
[2023-05-19 12:07] LABS: Glucose, Whole Blood 201 mg/dL (60-115)
--- NOTE | 2023-05-19 13:38 | MHC.CM.PN ---
EMR REVIEWED. PT REMAINS IN ICU BUT HAS BEEN TITRATED TO N/C FROM HF02. CM WILL CONTINUE TO FOLLOW FOR DC PLAN/NEEDS.
[2023-05-19] MEDS: cefTRIAXone sodium 1 GM in 0.9 % Sodium Chloride 100 ML IV (16:17)
[2023-05-19 16:44] LABS: Glucose, Whole Blood 137 mg/dL (60-115)
[2023-05-19] MEDS: Enoxaparin Sodium 40 MG/0.4 ML SYRINGE SUBCUT (17:57)
[2023-05-19] MEDS: Azithromycin 500 MG in 0.9 % Sodium Chloride 250 ML 125 MG IV (17:57)
[2023-05-19 21:27] LABS: Glucose, Whole Blood 189 mg/dL (60-115)
[2023-05-20] VITALS (9 sets, daily range): BP systolic 148–186; BP diastolic 67–86; PULSE 80–89; RESP 18–20; TEMP 36.2–36.8; O2SAT 91–99; BMI 22.6
[2023-05-20] MEDS: Albuterol/Iprat 2.5/0.5MG 3 ML AMPUL.NEB INHALE ×2 (07:22→11:58)
[2023-05-20 07:44] LABS: Glucose, Whole Blood 112 mg/dL (60-115)
[2023-05-20] MEDS: Nicotine 21 MG PATCH.TD24 TRANSDERMA (08:43)
[2023-05-20] MEDS: Gabapentin 400 MG CAPSULE 800 MG PO ×3 (08:44→20:05)
[2023-05-20] MEDS: predniSONE 20 MG TABLET 40 MG PO (08:44)
[2023-05-20 08:52] LABS: Hematocrit 41.4 % (37.0-47.0); Hemoglobin 12.6 g/dl (12.0-16.0); Mean Corpuscular HGB Conc 30.4 g/dl (31.0-35.0); Mean Corpuscular Hemoglobin 26.7 pg (27.0-33.0); Mean Corpuscular Volume 87.7 fL (80.0-98.0); Mean Platelet Volume 9.8 fL (9.4-12.3); Platelet Count 293 X10*3/uL (160-400); Red Blood Count 4.72 X10*6/uL (4.20-5.50); Red Cell Distribution Width 15.1 % (11.0-16.0); White Blood Count 12.1 X10*3/uL (4.8-10.8)
[2023-05-20 08:55] LABS: Venous Blood Gas Refer to POC result
[2023-05-20 09:10] LABS: Anion Gap 13 (12-20); Blood Urea Nitrogen 9 mg/dL (9-16); Calcium 9.7 mg/dL (8.4-10.2); Carbon Dioxide 29 mmol/L (22-29); Chloride 104 mmol/L (96-108); Creatinine Clr Calc Pharmacy 84.2; Estimated Glomerular Filt Rate > 60; Glucose Random 118 mg/dL (60-115); Potassium 3.2 mmol/L (3.3-5.1); Sodium 143 mmol/L (135-145)
--- NOTE | 2023-05-20 16:05 | HO.PM.IMPN ---
Subjective Subjective Date of Service: 05/20/23 Interval History: Seen and evaluated Feels better, still winded On O2 supplement, drops to 80s with talking No reported fever or chills Review of Systems Review of Systems: Yes all other systems are reviewed and are negative Physical Exam Vital Signs: Vital Signs: Last Vital Signs Temp 98.0 F 05/20/23 15:15 Pulse 86 05/20/23 15:41 Resp 20 05/20/23 15:41 BP 186/74 H 05/20/23 15:15 Pulse Ox 91 L 05/20/23 15:15 O2 Del Method Nasal Cannula 05/20/23 15:15 O2 Flow Rate 6.0 05/20/23 15:15 FiO2 35 05/19/23 07:00 Oxygen Flow Rate 6 05/17/23 19:58 BMI result Body Mass Index 22.6 Const: Other: Constitutional : Awake, interactive, not in distress Neck : Normal inspection, Supple Cardiovascular : RRR, no JVP, no lower extremity edema Respiratory : decreased bilateral air entry, expiratory wheezes bilaterally Gastrointestinal: soft, lax, Normal bowel sounds, Non tender Skin : Warm, Dry Neurological : Alert & oriented x3, No focal deficit Objective Data Active Medications Acetaminophen (Acetaminophen 325 Mg Tablet) 650 mg PO Q6H PRN PRN Reason: Pain, Mild (Pain Scale 1-3) Albuterol Sulfate (Albuterol Sulfate (0.083%) 2.5 Mg/3 Ml Vial.Neb) 2.5 mg INHALE Q2H PRN PRN Reason: Shortness of Breath/Wheezing Albuterol/Ipratropium (Albuterol/Iprat 2.5/0.5mg 3 Ml Ampul.Neb) 3 ml INHALE RQ4H WHILE AWAKE [facility] Last Admin: 05/20/23 15:40 Dose: 3 ml Documented By: KATELIN Dextrose (Dextrose 50 % 25 Gm/50 Ml Syringe) 25 gm IVPUSH Q15M PRN; Protocol PRN Reason: per Hypoglycemia Standing Ord. Enoxaparin Sodium (Enoxaparin Sodium 40 Mg/0.4 Ml Syringe) 40 mg SUBCUT Q24H [facility] Last Admin: 05/19/23 17:57 Dose: 40 mg Documented By: RIGOBERTO Gabapentin (Gabapentin 400 Mg Capsule) 800 mg PO TID [facility] Last Admin: 05/20/23 08:44 Dose: 800 mg Documented By: LOGAN Glucose (Glucose Gel 15 Gm Gel..Gram.) 15 gm PO Q15M PRN; Protocol PRN Reason: per Hypoglycemia Standing Ord. Guaifenesin (Guaifenesin La 600 Mg Tab.Er.12h) 600 mg PO BID [facility] Last Admin: 05/20/23 11:34 Dose: 600 mg Documented By: LOGAN Azithromycin 500 mg/ Sodium (Chloride) 250 mls @ 125 mls/hr IV Q24H [facility] Last Infusion: 05/19/23 20:27 Dose: Infused Documented By: CARMEN Ceftriaxone Sodium 1 gm/ (Sodium Chloride) 100 mls @ 200 mls/hr IV Q24H [facility] Last Infusion: 05/19/23 16:56 Dose: Infused Documented By: RIGOBERTO Insulin Human Lispro (Insulin Lispro 100 Unit/Ml 3 Ml Vial) 0 unit SUBCUT QIDACHS [facility]; Protocol Last Admin: 05/20/23 12:40 Dose: 2 unit Documented By: LOGAN Magnesium Hydroxide (Milk Of Magnesia 30 Ml Oral.Susp) 30 ml PO DAILY PRN PRN Reason: Constipation Nicotine (Nicotine 21 Mg Patch.Td24) 21 mg TRANSDERMA DAILY [facility] Last Admin: 05/20/23 08:43 Dose: 21 mg Documented By: LOGAN Nicotine Polacrilex (Nicotine Polacrilex Lozenge 2 Mg Lozenge) 2 mg BUCCAL Q2H PRN PRN Reason: Nicotine Cravings Prednisone (Prednisone 20 Mg Tablet) 40 mg PO DAILY [facility] Last Admin: 05/20/23 08:44 Dose: 40 mg Documented By: LOGAN Sodium Chloride (0.9 % Sodium Chloride Flush 3 Ml Syringe) 3 ml IVFLUSH QSHIFT [facility] Last Admin: 05/20/23 10:49 Dose: Not Given Documented By: MELIA Non-Admin Reason: Previously Administered Labs 05/20/23 08:41 05/20/23 08:41 Labs: Laboratory Results - last 24 hr 05/19/23 05/19/23 05/20/23 16:39 21:22 07:26 MCV MCH MCHC RDW Plt Count MPV Absolute Nucleated RBC Nucleated RBC % (auto) VBG pH VBG pCO2 VBG pO2 VBG HCO3 VBG O2 Saturation VBG Base Excess Anion Gap Estim Creat Clear Calc Estimated GFR POC Glucose 137 H 189 H 112 Random Glucose Calcium 05/20/23 05/20/23 05/20/23 08:41 08:49 11:23 MCV 87.7 MCH 26.7 L MCHC 30.4 L RDW 15.1 Plt Count 293 MPV 9.8 Absolute Nucleated RBC 0.000 Nucleated RBC % (auto) 0.0 VBG pH 7.47 H VBG pCO2 50 VBG pO2 66 VBG HCO3 36 H VBG O2 Saturation 91.0 VBG Base Excess 11.3 Anion Gap 13 Estim Creat Clear Calc 84.2 Estimated GFR > 60 POC Glucose 169 H Random Glucose 118 H Calcium 9.7 Microbiology Microbiology Results: Microbiology 05/18/23 16:04 Gram Stain - Final Sputum - Expectorated Sputum Culture - Preliminary Culture in progress. 05/17/23 15:22 Blood Culture - Preliminary Blood - Venous No growth after 48 hours. 05/17/23 15:22 Blood Culture - Preliminary Blood - Venous No growth after 48 hours. Assessment and Plan (1) Acute hypercapnic respiratory failure: Status: Acute (2) Acute hypoxic respiratory failure: Status: Acute (3) COPD (chronic obstructive pulmonary disease): Status: Acute Plan 62 yo F with HLD, DM2, COPD here with dyspnea and being admitted for acute hypoxic respiratory failure, PNA, COPD exacerbation. Went to ICU for Hypercapnic failure on BiPAP. # acute hypoxic/hypercapnic resp failure d/t COPD wean o2 down as tolerated Duonebs Steroids Sleep study tonight Advised to quit smoking # Sepsis d/t Pneumonia, community acquired type Continue IV Ceftriaxone +Azithro (05/17) O2 as above #Fever Tylenol # DM2 w hyperglycemia home meds + SSI, watch for # HTN continue home meds # HLD statin. # tobacco abuse NRT, cessation discussed # VTE ppx Lovenox DVT prophylaxis: lovenox Admit for overnight for management of acute hypoxic resp failure, Pneumonia needs IV Abx, high risk for decompensation Time Spent With Patient Time: Total time managing care of this patient today ____ minutes. Quality Stroke Does the patient have a stroke diagnosis?: No VTE Prior VTE?: No VTE Risk Level:: Medical - moderate - high VTE Device Contraindication: Treatment Not Indicated VTE Drug Contraindication: N/A - Med Ordered
[2023-05-20] MEDS: cefTRIAXone sodium 1 GM in 0.9 % Sodium Chloride 100 ML IV (16:23)
[2023-05-20] MEDS: Azithromycin 500 MG in 0.9 % Sodium Chloride 250 ML 125 MG IV (16:23)
[2023-05-20] MEDS: 0.9 % Sodium Chloride Flush 3 ML SYRINGE IVFLUSH ×2 (16:24→20:10)
--- NOTE | 2023-05-20 16:34 | PC.RT ---
Sleep study was ordered for tonight. But due to the increase of oxygen at 6 liters pepe n/c, it woul dbe unsafe for her to have this at this time. Also, pt continues to choke on her food and Dr. Manzo is aware and suggested to have a swallow eval. We will do the sleep study when the acute process is resolving and oxygen requirements are decreasing.
[2023-05-20] MEDS: Enoxaparin Sodium 40 MG/0.4 ML SYRINGE SUBCUT (17:15)
[2023-05-21] VITALS (12 sets, daily range): BP systolic 138–184; BP diastolic 62–86; PULSE 72–90; RESP 17–19; TEMP 36.3–37; O2SAT 91–95; BMI 22.2
[2023-05-21] MEDS: Gabapentin 400 MG CAPSULE 800 MG PO ×3 (10:54→21:41)
[2023-05-21] MEDS: 0.9 % Sodium Chloride Flush 3 ML SYRINGE IVFLUSH (10:55)
--- NOTE | 2023-05-21 13:59 | HO.PM.IMPN ---
Subjective Subjective Date of Service: 05/21/23 Interval History: Seen and evaluated Feels better, on O2 supplement, maintaining better O2 sat Toleratind diet better No reported fever or chills Review of Systems Review of Systems: Yes all other systems are reviewed and are negative Physical Exam Vital Signs: Vital Signs: Last Vital Signs Temp 97.6 F 05/21/23 12:00 Pulse 90 05/21/23 12:07 Resp 18 05/21/23 12:07 BP 162/70 H 05/21/23 12:00 Pulse Ox 92 05/21/23 12:00 O2 Del Method Nasal Cannula 05/21/23 12:00 O2 Flow Rate 2.0 05/21/23 12:00 FiO2 35 05/19/23 07:00 Oxygen Flow Rate 6 05/17/23 19:58 BMI result Body Mass Index 22.2 Const: Other: Constitutional : Awake, interactive, not in distress Neck : Normal inspection, Supple Cardiovascular : RRR, no JVP, no lower extremity edema Respiratory : decreased bilateral air entry, expiratory wheezes bilaterally, on O2 supplement, Gastrointestinal: soft, lax, Normal bowel sounds, Non tender Skin : Warm, Dry Neurological : Alert & oriented x3, No focal deficit Objective Data Active Medications Acetaminophen (Acetaminophen 325 Mg Tablet) 650 mg PO Q6H PRN PRN Reason: Pain, Mild (Pain Scale 1-3) Albuterol Sulfate (Albuterol Sulfate (0.083%) 2.5 Mg/3 Ml Vial.Neb) 2.5 mg INHALE Q2H PRN PRN Reason: Shortness of Breath/Wheezing Albuterol/Ipratropium (Albuterol/Iprat 2.5/0.5mg 3 Ml Ampul.Neb) 3 ml INHALE RQ4H WHILE AWAKE [facility] Last Admin: 05/21/23 12:06 Dose: 3 ml Documented By: BIB Dextrose (Dextrose 50 % 25 Gm/50 Ml Syringe) 25 gm IVPUSH Q15M PRN; Protocol PRN Reason: per Hypoglycemia Standing Ord. Enoxaparin Sodium (Enoxaparin Sodium 40 Mg/0.4 Ml Syringe) 40 mg SUBCUT Q24H [facility] Last Admin: 05/20/23 17:15 Dose: 40 mg Documented By: MELIA Gabapentin (Gabapentin 400 Mg Capsule) 800 mg PO TID [facility] Last Admin: 05/21/23 10:54 Dose: 800 mg Documented By: MELI Glucose (Glucose Gel 15 Gm Gel..Gram.) 15 gm PO Q15M PRN; Protocol PRN Reason: per Hypoglycemia Standing Ord. Guaifenesin (Guaifenesin La 600 Mg Tab.Er.12h) 600 mg PO BID [facility] Last Admin: 05/21/23 10:57 Dose: 600 mg Documented By: MELI Azithromycin 500 mg/ Sodium (Chloride) 250 mls @ 125 mls/hr IV Q24H [facility] Last Infusion: 05/20/23 20:02 Dose: Infused Documented By: COTY Ceftriaxone Sodium 1 gm/ (Sodium Chloride) 100 mls @ 200 mls/hr IV Q24H [facility] Last Infusion: 05/20/23 19:10 Dose: Infused Documented By: MELIA Insulin Human Lispro (Insulin Lispro 100 Unit/Ml 3 Ml Vial) 0 unit SUBCUT QIDACHS [facility]; Protocol Last Admin: 05/21/23 13:57 Dose: 2 unit Documented By: MAX Magnesium Hydroxide (Milk Of Magnesia 30 Ml Oral.Susp) 30 ml PO DAILY PRN PRN Reason: Constipation Nicotine (Nicotine 21 Mg Patch.Td24) 21 mg TRANSDERMA DAILY [facility] Last Admin: 05/21/23 10:55 Dose: 21 mg Documented By: MELI Nicotine Polacrilex (Nicotine Polacrilex Lozenge 2 Mg Lozenge) 2 mg BUCCAL Q2H PRN PRN Reason: Nicotine Cravings Prednisone (Prednisone 20 Mg Tablet) 40 mg PO DAILY [facility] Last Admin: 05/21/23 10:55 Dose: 40 mg Documented By: MELI Sodium Chloride (0.9 % Sodium Chloride Flush 3 Ml Syringe) 3 ml IVFLUSH QSHIFT [facility] Last Admin: 05/21/23 10:55 Dose: 3 ml Documented By: MELI Labs 05/20/23 08:41 05/21/23 05:54 Labs: Laboratory Results - last 24 hr 05/20/23 05/20/23 05/21/23 16:05 20:05 05:54 Hold Purple Top SEE NOTE Anion Gap 15 Estim Creat Clear Calc 91.5 Estimated GFR > 60 POC Glucose 162 H 174 H Random Glucose 98 Calcium 9.7 05/21/23 05/21/23 07:45 11:35 Hold Purple Top Anion Gap Estim Creat Clear Calc Estimated GFR POC Glucose 99 189 H Random Glucose Calcium Microbiology Microbiology Results: Microbiology 05/18/23 16:04 Gram Stain - Final Sputum - Expectorated Sputum Culture - Final Assessment and Plan (1) Diastolic CHF with preserved left ventricular function, NYHA class 2: Status: Acute (2) Acute hypercapnic respiratory failure: Status: Acute (3) Acute hypoxic respiratory failure: Status: Acute (4) Pneumonia: Status: Acute Plan 62 yo F with HLD, DM2, COPD here with dyspnea and being admitted for acute hypoxic respiratory failure, PNA, COPD exacerbation. Went to ICU for Hypercapnic failure on BiPAP. # acute hypoxic/hypercapnic resp failure d/t COPD wean o2 down as tolerated Duonebs Steroids she has a CPAP at home that she doesnt use, advised to start doing that Advised to quit smoking # Sepsis d/t Pneumonia, community acquired type Continue IV Ceftriaxone +Azithro (05/17) O2 as above #Fever Tylenol # DM2 w hyperglycemia home meds + SSI, watch for # HTN continue home meds # HLD statin. # tobacco abuse NRT, cessation discussed # VTE ppx Lovenox DVT prophylaxis: lovenox Admit for overnight for management of acute hypoxic resp failure, Pneumonia needs IV Abx, high risk for decompensation Time Spent With Patient Time: Total time managing care of this patient today ____ minutes. Quality Stroke Does the patient have a stroke diagnosis?: No VTE Prior VTE?: No VTE Risk Level:: Medical - moderate - high VTE Device Contraindication: Treatment Not Indicated VTE Drug Contraindication: N/A - Med Ordered
--- NOTE | 2023-05-21 14:20 | MHC.CM.PN ---
Rec is for Pt to have home VNA services, referral submitted to NA, they are following. CM to follow and assist with DC plan.
[2023-05-21] MEDS: Acetaminophen 325 MG TABLET 650 MG PO (14:58)
--- NOTE | 2023-05-21 15:32 | MHC.SL.SWA ---
Speech Pathologist Impression: Risk of aspiration, oral phase dysphagia Dysphasia Diet Status: No change at this time Liquid Consistency and Strategies for Safe Swallow: Liquid Intake Recommendation: Thin Liquid Intake Strategies: Small Sips Solid Food Consistency: Dietary Recommendations: Grnd/Mech Altered (NDD2) Additional Modifications to Solid Foods: Recommend CONTINUE w/ GROUND/MECH ALTERED (NDD2) solids w/ sauces/gravies, THIN liquids, pills CRUSHED in PUREE. Pt to have direct supervision during PO intake. Monitor tolerance closely and ensure strict aspiration precautions. No changes made to diet order at this time. OPERATIONS ASSISTANT will continue to follow to monitor tolerance and re-assess as needed. Oral Medication Intake: Crushed with Puree Please contact the pharmacy regarding appropriate crushable or liquid drug formulations that are available whenever modified delivery is recommended. Compensatory Strategies and Precautions to be Taken for Safe Swallow: Sitting Upright (90 deg) Double Swallow Small Bites and Sips Alternate Liquids/Solids Rate of Ingestion Change Avoid Specific Foods Supervision While Eating and Drinking for Safe Swallow: Total Supervision (1:1) Foods to Avoid: Mixed textures Swallowing Recommended Treatments: Compens. Strategy Educat. Recommendation for Speech: Inpatient Speech Therapy Comment: OPERATIONS ASSISTANT to continue to follow as needed during hospitalization. Track Laying Supervisor Clinican/Clinical Fellow: No Supervisory Statement: I have reviewed and agree with the student/clinical fellow's documentation: N/A Speech Language Pathologist: Charissa Dash M.A., [facility]-OPERATIONS ASSISTANT
--- NOTE | 2023-05-21 16:46 | PC.NURSE ---
Assumed care at 07:00. Patient continues to be drowsy and arousable to voice or light tactile stimulus. Patient on 3 LPM was 93% and titrated down to 2 LPM, which she reports is her home oxygen level. Is also a smoker. Patient with fine crackles at baseline, productive occasional cough with brown to clear sputum. Patient Reports she occasionally has left sided chest pain associated with cough only, but not at this time, and currently has right sided posterior chest pain 6/10, was sometimes sharp and sometimes dull per patient, and independent of cough, MD notified. Patient medicated with tylenol per MD. MD to bedside to update pt and spouse on plan.
[2023-05-22 03:20] VITALS: BP 158/79; PULSE 73; RESP 18; TEMP 36.8; O2SAT 96
[2023-05-22 06:00] VITALS: BMI 25.5
[2023-05-22 07:13] VITALS: BP 179/81; PULSE 81; RESP 18; TEMP 36.6; O2SAT 89
[2023-05-22 10:49] VITALS: BP 181/85; PULSE 98; RESP 18; TEMP 37.1; O2SAT 93
--- NOTE | 2023-05-22 10:49 | PM.DS ---
DS: Providers Provider Date of Service: 05/22/23 Date of admission: 05/17/23 16:42 Primary care physician: Cass Lopez MD Consults: 05/17/23 20:41 Consult to Critical Care Routine Consulting Provider: Wolf Arzola Reason for consultation: Hypoxia, inability to protect airways DS: Diagnosis Discharge Diagnosis (1) Diastolic CHF with preserved left ventricular function, NYHA class 2: Status: Acute (2) Acute hypercapnic respiratory failure: Status: Acute (3) Acute hypoxic respiratory failure: Status: Acute (4) Pneumonia: Status: Acute (5) COPD (chronic obstructive pulmonary disease): Status: Acute DS: Summary Hospital Course Hospital Course: Admission note HPI 62-year-old female with a past medical history of hypertension, hyperlipidemia, diabetes, COPD, ativer smoker of at least 1 PPD. Patient was brought in from an urgent for evaluation for acute hypoxic respritory failure. She has been feeling weak, lethargic with difficulty breating since yesterday a long with fever. At the urgent care, she was reported to have O2 sat of 70s on 2liters. Here in ED also noted to have O2 sat of 75 on 3 liter, fever of 101. Work up has included WBC of 18, negative covid, flu and RSV. VBG ph 7.48 pCO2 53, PO2 90. CXR show Patchy airspace disease most likely pneumonia on the right and\ prominent interstitial markings. ED treatment: Ceftriaxone and Azithro, Bronchodilators by Neb. O2 sat is presently 92 on 6 liters. Hospital course # acute hypoxic/hypercapnic resp failure d/t COPD required admission to ICU for BiPAP with good response as hypercapnia resolved. she is supposed to be on CPAP at home but she doesnt use and continues to smoke. Transferred to [facility] and treated with Steroids, Antibiotics and Nebulizers with good response as she was weaned o2 down as tolerated to 3L her home baseline. Advised to quit smoking. # Sepsis d/t Pneumonia, community acquired type Treated with IV Ceftriaxone +Azithro for 5 days inpatient. Cultures remained negative. She was able to participate with PT who recommended home VNA on discharge. Wean down Oxygen as tolerated at home Continue Prednisone Tapering dose as prescribed Use your home nebulizer 4 times daily for the next week Azithromycin as prescribed Quit smoking, Nicotine patches prescribed Time Spent with Patient Time attestation: Total time managing care of this patient today ____ minutes. Discharge coordination time: Greater than 30 minutes Quality: Safe Use of Opioids Does Pt have an Active Cancer Diagnosis on the Problem List?: No Quality: Stroke Does the patient have a stroke diagnosis?: No Physical Exam Vital Signs: Vital Signs: Last Vital Signs Temp 97.9 F 05/22/23 07:13 Pulse 81 05/22/23 07:13 Resp 18 05/22/23 07:13 BP 179/81 H 05/22/23 07:13 Pulse Ox 89 L 05/22/23 07:13 O2 Del Method Nasal Cannula 05/22/23 07:13 O2 Flow Rate 2 05/22/23 07:13 FiO2 35 05/19/23 07:00 Oxygen Flow Rate 6 05/17/23 19:58 BMI result Body Mass Index 25.5 Const: Other: Constitutional : Awake, interactive, not in distress Neck : Normal inspection, Supple Cardiovascular : RRR, no JVP, no lower extremity edema Respiratory : fair bilateral air entry, clear with no expiratory wheezes bilaterally, on O2 supplement 2L Gastrointestinal: soft, lax, Normal bowel sounds, Non tender Skin : Warm, Dry Neurological : Alert & oriented x3, No focal deficit DS: Data Data Completed and Pending Labs on day of discharge: Laboratory Results - last 24 hr 05/21/23 05/21/23 05/21/23 11:35 16:34 19:48 POC Glucose 189 H 147 H 244 H 05/22/23 07:11 POC Glucose 106 Preliminary micro results at discharge 05/17/23 15:22 Blood Culture - Preliminary Blood - Venous No growth after 48 hours. 05/17/23 15:22 Blood Culture - Preliminary Blood - Venous No growth after 48 hours. Imaging Chest x-ray: Radiologist's impression: ITS Impressions Chest X-Ray 05/17/23 15:02 IMPRESSION: Patchy airspace disease most likely pneumonia on the right and prominent interstitial markings. Chest X-Ray 05/17/23 20:53 IMPRESSION: 1. A small focus of atelectasis versus infiltrate is seen in the mid right lung. Recommend short-term follow-up chest radiographs to ensure clearance and exclude the possibility of underlying obstructive process. 2. There is pulmonary vascular congestion, without overt congestive heart failure. Chest CT 05/17/23 22:02 IMPRESSION: 1. Prominent interstitial markings, micronodules and patchy opacity right upper lobe and to a lesser extent left upper lobe. There is a small consolidation right posterior basal segment. The above findings are suggestive of inflammatory process superimposed on chronic lung disease. 2. No abnormal mediastinal or axillary lymph nodes seen. 3. Mild coronary artery calcifications. Increase interstitial markings, Fleischner guidelines were followed. Chest X-Ray 05/19/23 18:50 IMPRESSION: Bronchial wall thickening may be infectious and/or inflammatory in etiology. Discharge Plan Discharge Anticipated Discharge Date/Time: 05/22/23 10:31 Patient Disposition: Home Health Service Discharge Diagnosis: Acute respiratory failure from COPD exacerbation Referrals: [facility] [Outside] - 1 Week Cass Lopez MD [Primary Care Provider] - 1 Week Discharge Medications: New nicotine 21 mg/24 hr Patch 24 Hour 21 mg transdermal DAILY Qty: 30 2RF guaifenesin [Mucinex] 600 mg Tablet Extended Release 12hr 600 mg PO BID Qty: 20 0RF prednisone 10 mg tablet See Taper PO DAILY Qty: 30 0RF Taper: Prednisone 40 mg daily for 3 Days and 0 Hour 30 mg daily for 3 Days and 0 Hour 20 mg daily for 3 Days and 0 Hour 10 mg daily for 3 Days and 0 Hour azithromycin 500 mg tablet 500 mg PO DAILY 2 Days Qty: 2 0RF Rx Instructions: start on day 2 of therapy albuterol sulfate 90 mcg/actuation HFA aerosol inhaler 2 puff inhalation Q4-6H PRN (Reason: shortness of breath or wheezing) Qty: 6.7 2RF Continued (DME) lancets [FreeStyle Lancets] 28 gauge misc See Rx Instructions .Route Qty: 100 5RF Rx Instructions: As directed twice a day AC (DME) FreeStyle Lite Strips Strip See Rx Instructions .Route Qty: 100 0RF Rx Instructions: check fasting blood sugar twice a day before meals cholecalciferol (vitamin D3) 50 mcg (2,000 unit) capsule 50 mcg PO DAILY Qty: 90 3RF rosuvastatin 5 mg tablet 5 mg PO DAILY Qty: 90 1RF psyllium husk [Fiber Laxative (psyllium husk)] 0.52 gram capsule 1.04 g PO BID 90 Days Qty: 360 3RF (DME) FreeStyle Cristian 2 Sensor Kit See Rx Instructions .Route Qty: 6 3RF Rx Instructions: Test blood sugar 4 times per day (DME) FreeStyle Cristian 2 [place] Misc See Rx Instructions .Route Qty: 1 0RF Rx Instructions: test blood sugar 4 times per day losartan 50 mg tablet 50 mg PO DAILY Qty: 90 1RF Januvia 100 mg tablet 100 mg PO DAILY Qty: 90 1RF naproxen 500 mg tablet 500 mg PO BID PRN (Reason: for pain) Qty: 60 0RF Linzess 145 mcg capsule 145 mcg PO DAILY umeclidinium 62.5 mcg/actuation blister with device 1 inh inhalation DAILY Rx Instructions: Encruse aspirin [Adult Low Dose Aspirin] 81 mg tablet,delayed release (DR/EC) 81 mg PO BEDTIME fluticasone propionate [Flovent HFA] 220 mcg/actuation HFA aerosol inhaler 1 puff inhalation BID (DME) blood-glucose meter [FreeStyle Lite Meter] Kit See Rx Instructions .Route Qty: 1 0RF Rx Instructions: As directed twice a day before meals gabapentin 800 mg tablet 800 mg PO TID 30 Days Qty: 90 6RF amitriptyline 25 mg tablet 50 mg PO BEDTIME 30 Days Qty: 60 6RF metformin 1,000 mg tablet 1,000 mg PO BID metoclopramide HCl [Reglan] 10 mg tablet 10 mg PO TIDAC Qty: 90 6RF omeprazole 20 mg capsule,delayed release(DR/EC) 20 mg PO DAILY 30 Days Qty: 30 6RF Discharge Orders: Discharge Order (Routine); Ordered 05/22/23 Ordered By: Isabell Manzo Diet: Diabetic diet Activity on Discharge: As tolerated Stand Alone Forms: Patient Portal Discharge page Care Plan Goals: Read below Health Concerns: Read below Plan of Treatment: Read below Assessment: You were treated for respitaroy failure requring BiPaP machine support in ICU. improved with Steroids, nebulizers and antibiotics. Wean down Oxygen as tolerated at home Continue Prednisone Tapering dose as prescribed Use your home nebulizer 4 times daily for the next week Azithromycin as prescribed Quit smoking, Nicotine patches prescribed
--- NOTE | 2023-05-22 10:53 | MHC.CM.PN ---
Patient has been medically cleared for dc to home today, with services. A referral had been made to [facility], who has been made aware of today's dc.
[2023-05-22 12:21] VITALS: PULSE 98; RESP 18; O2SAT 93
[2023-05-22 12:48] VITALS: BP 143/79
--- NOTE | 2023-06-04 08:16 | P.CDIM_ITS ---
PROVIDER RESPONSE TEXT: To clarify, the appropriate diagnosis supported by the clinical indicators: Sepsis is/was present and is a clinical diagnosis based on: resolved QUERY TEXT: PHYSICIAN'S DOCUMENTATION REQUEST Date of Query: 05/28/2023 09:30 AM EDT Patient Name: Maria Elena Kingston Admit Date: 05/17/2023 RETROSPECTIVE QUERY Dear Isabell Manzo, A review of the medical record indicates additional documentation may be needed. Please review below and update the documentation accordingly. The patient's infectious clinical indicators include: ED 05/17 - Sepsis alert, patient with pneumonia she is not Septic. WBC 18.5 Temp 101.4 HR 114 RR 36 H&P 05/17 - Sepsis due to pneumonia, IV Ceftriaxone, Azithromycin, Oxygen ID 05/17 - Sepsis: fluid resuscitated with 30 mg/kg in Ed, Continue antibiotics. ICU PN 05/19 - Addendum: By the way patient was never Septic this was primary acute on chronic hyperca rbic respiratory failure from COPD exacerbation. D/S 05/22 - Sepsis d/t pneumonia, culture remained negative. Sepsis Systemic manifestations of infection, with 2 or more SIRS criteria which include: Fever > 100.4?F or hypothermia < 96.8?F Leukocytosis WBC > 12,000 or leukopenia, WBC < 4,000, or > 10% bands Tachycardia- > 90 beats/minute Tachypnea- RR > 20 breaths/minute or PaCO2 < 32mmHg Based on the above information and the recognized standard for sepsis, could you please clarify if th is diagnoses is still accurate and reflective of the patient's condition to ensure quality of the medical record. Consisten cy of a diagnosis documented within the medical record: Sepsis is/was present and is a clinical diagnosis based on suspected, possible, probable, resolved etc. After study (the condition) has been ruled out Other (explain)Clinically unable to determine (explain)Thank you, Briana Cordero, CCS, CDIS Use of terms such as suspected, likely, concern for, or probable (associated with a specific diagnosi s that is being evaluated, monitored, or treated as if it exists) are acceptable and can be coded in the inpatient se tting, when documented at the time of discharge. Please use your independent medical judgment in providing your response. THIS QUERY IS PART OF THE PERMANENT MEDICAL RECORD
== END 2023-05-22 13:12 | disposition home health service (06) | DRG 720 ==
LOC: HO.ED 16:15 → HO.EDOVER 20:11 → HO.IMC 20:22 → HO.EDOVER 22:40 → HO.ICU 05-18 00:53 → HO.IMC 05-19 09:31 → HO.ICU 05-19 09:35 → HO.IMC 05-19 13:55
PROVIDERS: Internal Medicine Cardiovascular Disease; Nurse Practitioner Family; Admitting Provider Internal Medicine; Emergency Provider Emergency Medicine; PCP Internal Medicine; Visit Provider Student in an Organized Health Care Education/Training Program
DX: A41.9 Sepsis, unspecified organism (principal); J96.21 Acute and chronic respiratory failure with hypoxia; J18.9 Pneumonia, unspecified organism; J44.1 Chronic obstructive pulmonary disease with (acute) exacerbation; I50.32 Chronic diastolic (congestive) heart failure; J44.0 Chronic obstructive pulmonary disease with (acute) lower respiratory infection; E78.2 Mixed hyperlipidemia; E11.65 Type 2 diabetes mellitus with hyperglycemia; F17.210 Nicotine dependence, cigarettes, uncomplicated; Z20.822 Contact with and (suspected) exposure to COVID-19; J96.22 Acute and chronic respiratory failure with hypercapnia; K21.9 Gastro-esophageal reflux disease without esophagitis; Z71.6 Tobacco abuse counseling; Z79.51 Long term (current) use of inhaled steroids; Z79.82 Long term (current) use of aspirin; Z79.84 Long term (current) use of oral hypoglycemic drugs; Z79.899 Other long term (current) drug therapy
CPT/HCPCS: 0241U; 36415; 36600; 71045; 71250; 80048; 81001; 82040; 82247; 82803; 82947; 83605; 83735; 84100; 85025; 85027; 85610; 87040; 87070; 87086; 87088; 87186; 87205; 92610; 93005; 93306; 94640; 94660; 97162; 99285; J0456; J0696; J1650; J1940; J2920; J2930; J3475

== ENCOUNTER 2023-05-17 16:42 | Outpatient (BNV) | payer OTHER, SELFPAY | END 2023-05-18 07:00 | PROVIDERS: Admitting Provider Internal Medicine; Emergency Provider Emergency Medicine; Visit Provider Internal Medicine | DX: I34.81 Nonrheumatic mitral (valve) annulus calcification (principal) | CPT/HCPCS: 93306 ==

== ENCOUNTER → 2023-05-17 16:42 | Outpatient (BNV) | payer OTHER, SELFPAY | PROVIDERS: Admitting Provider Internal Medicine; Emergency Provider Emergency Medicine; Visit Provider Internal Medicine Cardiovascular Disease | DX: J96.22 Acute and chronic respiratory failure with hypercapnia (principal); I50.30 Unspecified diastolic (congestive) heart failure; J44.1 Chronic obstructive pulmonary disease with (acute) exacerbation; J18.9 Pneumonia, unspecified organism; K21.9 Gastro-esophageal reflux disease without esophagitis; E11.9 Type 2 diabetes mellitus without complications; E78.2 Mixed hyperlipidemia; I10 Essential (primary) hypertension; K31.84 Gastroparesis | CPT/HCPCS: 99291 ==

== ENCOUNTER → 2023-05-17 16:42 | Outpatient (BNV) | payer OTHER, SELFPAY | PROVIDERS: Admitting Provider Internal Medicine; Emergency Provider Emergency Medicine; Visit Provider Student in an Organized Health Care Education/Training Program | DX: I50.30 Unspecified diastolic (congestive) heart failure (principal); J96.02 Acute respiratory failure with hypercapnia; J96.01 Acute respiratory failure with hypoxia; J18.9 Pneumonia, unspecified organism; J44.1 Chronic obstructive pulmonary disease with (acute) exacerbation | CPT/HCPCS: 99223; 99233; 99239; 99499 ==

== ENCOUNTER 2023-06-01 08:55 | Outpatient (AMB) | payer OTHER, SELFPAY ==
--- NOTE | 2023-06-01 09:01 | A.OFFPC_ITS ---
Vital Signs 06/01/23 09:02 Height 4 ft 9 in Weight 112 lb 8 oz BMI 24.3 BP 146/70 H Blood Pressure Location Lt brachial Position Sitting Pulse 92 Pulse Source Pulse Oximeter Pulse Oximetry (%) 93 Oxygen Delivery Method Room Air Intake Visit Reasons: [facility] resp failure pneumonia Intake Note: pt is here for a HDF from [facility] Allergies amoxicillin [AMOXICILLIN] Allergy (Intermediate, Verified 04/20/24 03:21) RASH Medication List - Last Reconciled 06/01/23 by Magalie Nicolas MD albuterol sulfate 90 mcg/actuation 2 puffs inhalation Q4-6H PRN amitriptyline 50 mg (2 x 25 mg) PO BEDTIME 30 days aspirin (Adult Low Dose Aspirin) 81 mg PO BEDTIME blood-glucose meter (FreeStyle Lite Meter kit) As directed twice a day before meals cholecalciferol (vitamin D3) 50 mcg PO DAILY flash glucose scanning reader ([employer] Cristian 2 [place]) test blood sugar 4 times per day flash glucose sensor (FreeStyle Cristian 2 Sensor kit) Test blood sugar 4 times per day fluticasone propionate 220 mcg/actuation (Flovent HFA) 1 puff inhalation BID FreeStyle Lite Strips (blood sugar diagnostic) check fasting blood sugar twice a day before meals NS gabapentin 800 mg PO TID 30 days lancets (FreeStyle Lancets) As directed twice a day AC linaclotide (Linzess) 145 mcg PO DAILY losartan 50 mg PO DAILY metformin 1,000 mg PO BID metoclopramide HCl (Reglan) 10 mg PO TIDAC naproxen 500 mg PO BID PRN nicotine 21 mg transdermal DAILY omeprazole 20 mg PO DAILY 30 days prednisone See Taper mg PO DAILY psyllium husk (Fiber Laxative (psyllium husk)) 1.04 grams (2 x 0.52 gram) PO BID 90 days rosuvastatin 5 mg PO DAILY sitagliptin phosphate (Januvia) 100 mg PO DAILY umeclidinium 62.5 mcg/actuation 1 inh inhalation DAILY Tobacco use date assessed: 06/01/23 Dental Screening Dental Screen Date: 06/01/23 Did you have a dental visit in the last 12 months?: Yes Did you have a dental problem in the last 6 months where you did not have access to dental care?: No Was dental information given to patient?: Patient has dentist HPI [facility] resp failure pneumonia HPI Details 63 year-old female with a past medical h istory of hypertension, hyperlipidemia, diabetes, COPD, active smoker of at least 1 PPD, here today for follow-up after recent admission at [facility] for pneumonia and acute respiratory failure. On admission, CXR showed patchy airspace disease most likely pneumonia on the right and\ prominent interstitial markings. She was then admitted for treatment of Acute hypoxic/hypercapnic respiratory failure due to exacerbation of COPD, and required admission to ICU for BiPAP with good response as hypercapnia resolved. She is supposed to be on CPAP at home, but she doesnt use it and continues to smoke. She was treated with Steroids, ceftriaxone plus azithromycin for 5 days inpatient and Nebulizers with good response as she was weaned o2 down as tolerated to 3L her home baseline. Advised to quit smoking. Cultures remained negative. She was able to participate with PT during admission, who who recommended home VNA on discharge. Wean down Oxygen as tolerated at home Continue Prednisone Tapering dose as prescribed Use your home nebulizer 4 times daily for the next week Azithromycin as prescribed Quit smoking, Nicotine patches prescribed [facility] Medical History Chronic lung disease COPD (chronic obstructive pulmonary disease) Type 2 diabetes mellitus without complication, with no history of insulin use Mixed dyslipidemia Essential hypertension GERD (gastroesophageal reflux disease) Gastroparesis Diastolic CHF with preserved left ventricular function, NYHA class 2 Chronic hypercapnic respiratory failure Type 2 diabetes mellitus with other diabetic kidney complication Type 2 diabetes mellitus without complication, with no history of insulin use Smoker unmotivated to quit Postlaminectomy syndrome of cervical region Seasonal allergic rhinitis Degenerative disc disease, cervical Postmenopause Dyslipidemia Surgical History H/O cervical discectomy History of esophagogastroduodenoscopy (EGD) Hx of colonoscopy Family History Mother Diabetes Sister Diabetes Mental health disorder Brother Diabetes Father HTN (hypertension) Social History Household Members: Significant Other Housing: Other Housing Other:: mobile home Do you presently have visiting nurse or other home services: 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 Wiley Caballero, Sharmila Paez, Iraj Hernandez and colleagues, with an educational radha from [employer]. Review of Systems Const Denies fever(s), Denies headache(s), Denies poor appetite and Reports weight loss ENT Reports Normal hearing present, Denies dysphagia, Denies headache(s), Denies nasal congestion and Denies nasal discharge Card Denies chest pain, Denies chest pain with activity, Denies irregular heart rhythm, Denies lightheadedness and Reports dyspnea on exertion Resp Denies cough, Denies pain on inspiration, Denies pain with cough, Reports dyspnea on exertion and Denies wheezing GI Denies abdominal pain, Denies melena, Denies bloating, Denies hematochezia, Denies GI cramping, Denies dysphagia, Denies excessive flatus, Reports heartburn, Denies diarrhea and Denies nausea Musc Reports no additional complaints Skin/Breast Denies pruritus, Denies lesions and Denies rash Neuro Reports Normal hearing present, Denies Abnormal speech present and Denies headache(s) Endo Reports no additional complaints Patel/Lymph Reports no additional complaints Aller/Immun Denies wheezing Physical exam (Primary Care) Vital Signs: Last Vital Signs Pulse 92 06/01/23 09:02 BP 146/70 H 06/01/23 09:02 Pulse Ox 93 06/01/23 09:02 Oxygen Delivery Method Room Air 06/01/23 09:02 BMI result Body Mass Index 24.3 Tobacco/Smoking Status: Tobacco use Status Tobacco use date assessed 06/01/23 06/01/23 09:09 Patient Tobacco Use Status Current everyday Tobacco 06/01/23 09:09 Tobacco use type Cigarette 06/01/23 09:09 e-Cigarette/Vaping Use Never Used 06/01/23 09:09 Are you ready to quit: No Tobacco cessation counseling provided: Yes Thrive Assessment: Date of Thrive Assessment Date Thrive assessed 05/18/23 06/01/23 09:09 Const Other: Alert oriented x3, no acute cardiorespiratory distress noted, ambulatory with normal gait HENMT Ears: external ears normal General nose exam: Normal external nose present and No nasal discharge present Mouth: oropharynx normal and moist mucous membranes Eyes General: appearance normal, both eyes and all related structures Neck Neck: Yes full ROM, Yes no lymphadenopathy and Yes supple Resp Other: on portable O2 at 2 L/NC Effort & Inspection: able to speak in complete sentences Auscultation: no rales, no wheezes and diminished lung sounds Cardio Other: S1-S2 present regular rate and rhythm Rate: regular rate Rhythm: regular rhythm Heart sounds: S1 normal heart sound present and S2 normal heart sound present GI Other: Normal bowel sounds, soft, nontender, no mass palpated Skin General skin exam: no rashes or lesions noted Neuro General: gait normal, tone normal, moves all extremities, Normal light touch and pain sensation and no focal motor deficits Cranial nerves: Yes Normal hearing present Cognition (Neuro): normal cognition Speech: No Abnormal speech present Gait exam (Neuro): Normal gait present Motor exam (neuro): 5/5 motor strength present throughout Extrem General: Yes full ROM, Yes no joint enlargement, Yes no pedal edema, Yes no calf tenderness and Yes normal gait Office Procedures Nebulizer Treatment Nebulizer Treatment [id number] RX initial, or Nebulizer Subsequent Treatment Office Meds ipratropium 0.5 mg-albuterol 3 mg (2.5 mg base)/3 mL nebulization soln Performing Provider: Magalie Nicolas MD Performing Location: [facility] Administered by: Adalgisa Cardenas CMA on 06/01/23 10:41 Dose Route Admin Location Dispensed Lot Number Expiration Date NDC Shop Supervisor 3 mL inhalation 3 mL [id number] 10/14/23 7877-1672-65 [employer]OHNSON 3 mL inhalation 3 mL Assessment and Plan Assessment & Plan (1) History of pneumonia: Code(s): Z87.01 - Personal history of pneumonia (recurrent) Plan: Received ceftriaxone during recent hospital admission and continued on azithromycin for 5 more days (2) Chronic obstructive pulmonary disease with (acute) exacerbation: Code(s): J44.1 - Chronic obstructive pulmonary disease with (acute) exacerbation Plan: Continue with Arnuity Ellipta, and albuterol via nebulizer every 6 hours as needed for bronchospasm and wheezing. She was placed on nicotine patch during her recent admission but stopped using it, now back to smoking again, strongly encouraged to quit. 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 at [facility] (3) Type 2 diabetes mellitus without complication, with no history of insulin use: Code(s): E11.9 - Type 2 diabetes mellitus without complications Plan: Continued on metformin and Januvia (4) Mixed dyslipidemia: Code(s): E78.2 - Mixed hyperlipidemia Plan: Currently on rosuvastatin 5 mg daily (5) Chronic idiopathic constipation: Code(s): K59.04 - Chronic idiopathic constipation Plan: Currently taking Linzess (6) Hospital discharge follow-up: Code(s): Z09 - Encounter for follow-up examination after completed treatment for conditions other than malignant neoplasm Orders: Orders AMB Nebulizer Treatment 06/01/23 J44.1 - Chronic obstructive pulmonary disease with (acute) exacerbation Coding Level of Care Code Est Pt Level 4 (48773) Complex EM visit Add On G2211 Diagnoses History of pneumonia Z87.01 Chronic obstructive pulmonary disease with (acute) exacerbation J44.1 Type 2 diabetes mellitus without complication, with no history of insulin use E11.9 Mixed dyslipidemia E78.2 Chronic idiopathic constipation K59.04 Hospital discharge follow-up Z09 CPT Codes Nebulizer Treatment - Nebulizer Treatment, initial or subsequent: [id number] Nebulizer/MDI RX initial, or Nebulizer Subsequent Treatment ([id number])
[2023-06-01 09:02] VITALS: BP 146/70; PULSE 92; O2SAT 93; BMI 24.3
== END 2023-06-01 11:19 | disposition home or self-care (01) ==
PROVIDERS: PCP Internal Medicine; Visit Provider Internal Medicine
DX: Z87.01 Personal history of pneumonia (recurrent) (principal); J44.1 Chronic obstructive pulmonary disease with (acute) exacerbation; E11.9 Type 2 diabetes mellitus without complications; E78.2 Mixed hyperlipidemia; K59.04 Chronic idiopathic constipation; Z09 Encounter for follow-up examination after completed treatment for conditions other than malignant neoplasm
CPT/HCPCS: 94640; 99499; J7620

== ENCOUNTER 2023-06-07 14:09 | Outpatient (AMB) | payer OTHER, SELFPAY ==
[2023-06-07 14:34] VITALS: BP 138/62; PULSE 94; O2SAT 94; BMI 24.3
--- NOTE | 2023-06-07 14:34 | A.OFFVIS_ITS ---
Intake Vital Signs 06/07/23 14:34 Height 4 ft 9 in Weight 112 lb 8 oz BMI 24.3 BP 138/62 Blood Pressure Location Lt brachial Position Sitting Pulse 94 Pulse Source Pulse Oximeter Pulse Oximetry (%) 94 Oxygen Delivery Method Room Air Intake Visit Reasons: Medication Discussion Intake Note: Pt here to discuss medication options regarding her neck to L arm pain Allergies amoxicillin [AMOXICILLIN] Allergy (Intermediate, Verified 06/07/23 14:33) RASH Medication List - Last Reconciled 06/07/23 by Helene Conti RN albuterol sulfate 90 mcg/actuation 2 puffs inhalation Q4-6H PRN amitriptyline 50 mg (2 x 25 mg) PO BEDTIME 30 days aspirin (Adult Low Dose Aspirin) 81 mg PO BEDTIME blood-glucose meter (FreeStyle Lite Meter kit) As directed twice a day before meals cholecalciferol (vitamin D3) 50 mcg PO DAILY flash glucose scanning reader (XLV DiagnosticsStyle Cristian 2 [place]) test blood sugar 4 times per day flash glucose sensor (FreeStyle Cristian 2 Sensor kit) Test blood sugar 4 times per day fluticasone propionate 220 mcg/actuation (Flovent HFA) 1 puff inhalation BID FreeStyle Lite Strips (blood sugar diagnostic) check fasting blood sugar twice a day before meals NS gabapentin 800 mg PO TID 30 days lancets (FreeStyle Lancets) As directed twice a day AC linaclotide (Linzess) 145 mcg PO DAILY losartan 50 mg PO DAILY metformin 1,000 mg PO BID metoclopramide HCl (Reglan) 10 mg PO TIDAC naproxen 500 mg PO BID PRN nicotine 21 mg transdermal DAILY omeprazole 20 mg PO DAILY 30 days prednisone See Taper mg PO DAILY psyllium husk (Fiber Laxative (psyllium husk)) 1.04 grams (2 x 0.52 gram) PO BID 90 days rosuvastatin 5 mg PO DAILY sitagliptin phosphate (Januvia) 100 mg PO DAILY umeclidinium 62.5 mcg/actuation 1 inh inhalation DAILY HPI HPI Comments History of Present Illness Details Maria Elena presents in my office with complains on cervicalgia.? She continues to endorse pain in the neck with radiation on to the left arm. She reports that medication I prescribed to her gabapentin and amitriptyline make her pain slightly better. She understand that limitation of the medications. She denies any side effects from the medications. I will renew her medications amitriptyline and gabapentin as below. SCS Nevro was again offered to the patient again she refused. She was last seen in this office more than year ago in 2021, before that in March 2021, before that she was seen in February of 2020 She has a history of ceased 5 C6 ACDF by [place] 2012. HER PAIN HAD STARTED ABOUT 2 YEARS PRIOR TO SURGERY.? She reported yard work was the cause of her pain.? She had conservative treatment including physical therapy, she received some injections without benefits, she subsequently had surgery at [facility].? She was treated by chiropractor without significant benefits.? She was taking NSAIDs without benefits.?With me she received interlaminar C6-C7 epidural steroid injection in her neck.? Technically it was very?difficult ?procedure.? The patient has very short neck and hardware in her tear portion of the neck was obstructing the view of the needle advancing to were the epidural space.? No pain relieve after the injection.? She was offered NEVRO spinal cord stimulator.? She was given brochure about spinal cord stimulation from [facility] she reports that gabapentin to 4 pills 800 mg a day and amitriptyline to 50 mg a day provide significant pain relief for her without any noticeable side effects. ON LICENSE OF [facility] Medical History (Updated 06/01/23 @ 10:09 by Magalie Nicolas MD) Type 2 diabetes mellitus without complication, with no history of insulin use Mixed dyslipidemia Essential hypertension GERD (gastroesophageal reflux disease) Gastroparesis Diastolic CHF with preserved left ventricular function, NYHA class 2 Chronic hypercapnic respiratory failure Type 2 diabetes mellitus with other diabetic kidney complication Type 2 diabetes mellitus without complication, with no history of insulin use Smoker unmotivated to quit Postlaminectomy syndrome of cervical region Seasonal allergic rhinitis Degenerative disc disease, cervical COPD (chronic obstructive pulmonary disease) Postmenopause Dyslipidemia Surgical History H/O cervical discectomy History of esophagogastroduodenoscopy (EGD) Hx of colonoscopy Family History Mother Diabetes Sister Diabetes Mental health disorder Brother Diabetes Father HTN (hypertension) Social History Household Members: Significant Other Housing: House Housing Other:: Mobile Home 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) Alcohol intake: never Patient Tobacco Use Status: Current everyday Tobacco user Tobacco use type: Cigarette Cigarette Packs Per Day: 0.5 Cigarettes Per Day: 10 e-Cigarette/Vaping Use: Never Used Second Hand Smoke Exposure: No Advance Directives Date on File: 09/20/21 service: No Current occupational status: unemployed Cognitive needs: No Hearing needs: No Vision needs: Yes Review of Systems Const All systems reviewed & are unremarkable except as noted in HPI and below ENT Reports Normal hearing present Neuro Reports Normal hearing present, Denies Abnormal speech present and Denies Sensory deficit (Neuro) Physical Exam Vital Signs: Last Vital Signs Pulse 94 06/07/23 14:34 BP 138/62 06/07/23 14:34 Pulse Ox 94 06/07/23 14:34 Oxygen Delivery Method Room Air 06/07/23 14:34 BMI result Body Mass Index 24.3 Const General: no acute distress Nutritional Appearance: obese morbidly obese Orientation/consciousness: patient oriented x3 Eyes General: appearance normal, both eyes and all related structures Pupils: Equal, round and reactive pupils present EOM: EOMs intact bilaterally Neck Neck: Yes full ROM Chest Chest palpation & inspection: normal inspection of the chest Resp Effort & Inspection: normal respiratory effort, able to speak in complete sentences, normal respiratory pattern, no audible wheezes and no cough Cardio Jugular venous distension: no JVD GI Inspection: Yes normal to inspection Back/Spine/Pelvis Other: Cervical Spine/Neck: ? C SPINE EXAM:?Myofascial trigger points are present, well-healed surgical scar ACDF.? RANGE OF MOTION OF NECK:?normal in all directions, full cervical ROM, mild pain with side bending b/l.? REFLEXES:?Brachioradialis and biceps brachii seem to be symmetrical, however left triceps reflex seem to be diminished on the left..? SENSATIONS:? diminished sensation to light touch in left hand.? 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 VERTEBRAL SPINE TENDERNESS:?absent.? PARASPINAL MUSCLE SPASM:?absent bilaterally.? TRAPEZIUS TENDERNESS:?present bilaterally Neuro General: patient oriented x3 and gait normal Cranial nerves: Yes CN's II-XII intact bilaterally, Yes Equal, round and reactive pupils present, Yes Normal hearing present and Yes Ability to bilaterally elevate shoulders present Speech: No Abnormal speech present Gait exam (Neuro): Normal gait present Motor exam (neuro): 5/5 motor strength present throughout Sensory Exam: No Sensory deficit (Neuro) Extrem General: No pedal edema Assessment & Plan Assessment & Plan (1) Postlaminectomy syndrome of cervical region: Code(s): M96.1 - Postlaminectomy syndrome, not elsewhere classified Plan She reports moderate help from gabapentin and amitriptyline. She reports no side effects. In the past as well as today we discussed NEVRO spinal cord stimulation. The patient does not wanted. I will continue medications as they are delineated below. Her gabapentin is almost at maximal does. Medications: Refilled gabapentin 800 mg PO TID 90 tabs 6RF 30 days amitriptyline 50 mg (2 x 25 mg) PO BEDTIME 60 tabs 6RF 30 days Coding Level of Care Code Est Pt Level 3 (18403) Diagnoses Postlaminectomy syndrome of cervical region M96.1
== END 2023-06-07 14:46 | disposition home or self-care (01) ==
PROVIDERS: PCP Internal Medicine; Visit Provider Anesthesiology
DX: M96.1 Postlaminectomy syndrome, not elsewhere classified (principal)
CPT/HCPCS: 99213

== ENCOUNTER → 2023-06-07 14:09 | Outpatient (BNVA) | payer OTHER, SELFPAY | PROVIDERS: PCP Internal Medicine; Visit Provider Anesthesiology | DX: M96.1 Postlaminectomy syndrome, not elsewhere classified (principal) | CPT/HCPCS: 99212 ==

== ENCOUNTER 2023-07-02 10:51 | Outpatient (AMB) | payer OTHER, SELFPAY ==
[2023-07-02 11:57] VITALS: BP 130/66; PULSE 121; TEMP 36.6; O2SAT 83; BMI 24.2
--- NOTE | 2023-07-02 11:57 | MHC.OFFWIV ---
Intake Vital Signs 07/02/23 11:57 07/02/23 11:58 Height 4 ft 9 in Weight 50.802 kg BMI 24.2 BP 130/66 Blood Pressure Location Lt brachial Position Sitting Pulse 121 H Pulse Source Pulse Oximeter Temp 97.8 F Temp Source Temporal Artery Scan Pulse Oximetry (%) 83 L 80 L Oxygen Delivery Method Room Air Intake Visit Reasons: EP, right side of rib pain Intake Note: pt is here for right chest pain Patient Tobacco Use Status: Current everyday Tobacco user Allergies amoxicillin [AMOXICILLIN] Allergy (Intermediate, Verified 07/02/23 11:57) RASH Do you need a note to return to daycare/school/sports/work: Yes HPI HPI Comments History of Present Illness Details 1159 63 year old female history of COPD, GERD, diabetes, hypertension present with shortness of breath, chest pain worse with exertion. Going on for the past few days. Reports she wears oxygen however her oxygen tank ran. Patient denies sick contacts. Eyes fevers, chills, nausea, vomiting, abdomina patientl pain. Not on thinners. Former smoker Patient is saturating 80% with ambulation, with labored breathing and asking to sit down. Concerns for acute hypoxic respiratory failure versus chronic lung conditions versus COPD exacerbation versus pulmonary embolism. Less likely ACS. This is an appropriate to be treated from an urgent care patient should go to the emergency department for further evaluation and treatment. [facility] Medical History Type 2 diabetes mellitus without complication, with no history of insulin use Mixed dyslipidemia Essential hypertension GERD (gastroesophageal reflux disease) Gastroparesis Diastolic CHF with preserved left ventricular function, NYHA class 2 Chronic hypercapnic respiratory failure Type 2 diabetes mellitus with other diabetic kidney complication Type 2 diabetes mellitus without complication, with no history of insulin use Smoker unmotivated to quit Postlaminectomy syndrome of cervical region Seasonal allergic rhinitis Degenerative disc disease, cervical COPD (chronic obstructive pulmonary disease) Postmenopause Dyslipidemia Surgical History H/O cervical discectomy History of esophagogastroduodenoscopy (EGD) Hx of colonoscopy Family History Mother Diabetes Sister Diabetes Mental health disorder Brother Diabetes Father HTN (hypertension) Social History Household Members: Significant Other Housing: House Housing Other:: Mobile Home 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) Alcohol intake: never Patient Tobacco Use Status: Current everyday Tobacco user Tobacco use type: Cigarette Cigarette Packs Per Day: 0.5 Cigarettes Per Day: 10 e-Cigarette/Vaping Use: Never Used Second Hand Smoke Exposure: No Advance Directives Date on File: 09/20/21 service: No Current occupational status: unemployed Cognitive needs: No Hearing needs: No Vision needs: Yes Review of Systems Const Details: Constitutional : No Weight loss, No Fever, No Chills, No Fatigue, No Malaise ENT/Mouth : No sore throat, No Rhinorrhea Eyes: No Eye Pain, No Swelling, No Redness Cardiovascular : + Chest Pain, + SOB, No Dyspnea on Exertion, No Orthopnea, No Edema, No Palpitations Respiratory : No Cough, No Sputum, No Wheezing Gastrointestinal : No Nausea, No Vomiting, No Diarrhea, No Constipation, No abdominal Pain, No Hematochezia, No Melena Genitourinary : No Dysuria, No Urinary Frequency, No Hematuria, Musculoskeletal : No joint pain, No Myalgias, No Joint Swelling Skin : No Skin Lesions, No rash Neuro : No Weakness, No Numbness, No Dizziness, No Headache Psych : No Anxiety/Panic, No Depression All other systems reviewed and are negative All systems reviewed & are unremarkable except as noted in HPI and below Physical Exam Vital Signs: BMI result Body Mass Index 24.2 hypoxic and tachycardic Appearance: Alert.? Oriented X3.? Moderate acute distress.? Head: Normocephalic, atraumatic, no step-offs or deformities Eyes: Pupils equal, round and reactive to light.? ENT: Pharynx normal.? Neck: Normal inspection.? Neck supple.? CVS: rapid heart rate and normal rhythm.? Pulses normal.? Respiratory: Moderate respiratory distress.? Breath sounds w significant crackles to bilateral lower lobes and wheezing throughout Abdomen: Soft and nontender.? Skin: Skin warm and dry.? Normal skin color.? Normal skin turgor.? Extremities: No lower extremity edema.? No calf ttp. 5/5 strength to bilateral upper and lower extremities Neuro: Oriented X 3.? No motor deficit.? No sensory deficit. CN 2-12 intact Assessment & Plan Assessment & Plan (1) Hypoxia: Code(s): R09.02 - Hypoxemia Plan Ambulance to [facility] [facility] Coding Level of Care Code Est Pt Level 4 (00587) Diagnoses Hypoxia R09.02
[2023-07-02 11:58] VITALS: O2SAT 80
== END 2023-07-02 12:21 | disposition home or self-care (01) ==
PROVIDERS: PCP Internal Medicine; Visit Provider Physician Assistant
DX: R09.02 Hypoxemia (principal)
CPT/HCPCS: 99214

== ENCOUNTER 2023-07-02 12:36 | Inpatient (IN) | payer OTHER, SELFPAY ==
[2023-07-02] VITALS (12 sets, daily range): BP systolic 110–160; BP diastolic 58–83; PULSE 95–122; RESP 20–32; TEMP 36.9–39; O2SAT 90–95; BMI 24.2
--- NOTE | ~2023-07-02 | XR_ITS ---
EXAMINATION: XR CHEST CLINICAL INFORMATION: Shortness of breath, right-sided pain. COMPARISON: Chest radiograph 05/19/2023. TECHNIQUE: AP view of the chest was obtained. FINDINGS: Slightly increased diffuse bronchial wall thickening with new/increased more focal infiltrates in the lower lobes. No pleural effusion. No pneumothorax. Unchanged cardiomediastinal silhouette. Cervical fusion hardware seen. No acute osseous findings. XR/XR chest 1V IMPRESSION: Worsening pulmonary aeration with increased bronchial wall thickening as well as new/increased bibasilar infiltrates. Findings are worrisome for an atypical/viral pneumonia in the appropriate clinical context. Recommend follow-up chest radiograph after treatment.
[2023-07-02] MEDS: Albuterol Sulfate 5 MG, Albuterol/Iprat 2.5/0.5MG 3 ML 3 ML INHALE (12:55)
--- NOTE | 2023-07-02 13:08 | ECG_ITS ---
Test Reason : CHEST PAIN Blood Pressure : / mmHG Vent. Rate : 125 BPM Atrial Rate : 125 BPM P-R Int : 130 ms QRS Dur : 096 ms QT Int : 296 ms P-R-T Axes : 052 087 049 degrees QTc Int : 427 ms Sinus tachycardia Possible Left atrial enlargement Incomplete right bundle branch block Nonspecific ST and T wave abnormality Abnormal ECG When compared with ECG of 18-MAY-2023 05:45, Vent. rate has increased BY 45 BPM Incomplete right bundle branch block is now Present ST now depressed in Inferior leads Lateral leads Nonspecific T wave abnormality no longer evident in Anterior leads Referred By: Wesley Her Electronically Signed By:ISAAK SAHU MD
--- NOTE | 2023-07-02 13:13 | ED.GENADULT ---
HPI - General Adult General Chief complaint: Upper Respiratory Symptoms Stated complaint: INC SOB Time Seen by Provider: 07/02/23 13:01 History of Present Illness HPI narrative: The patient is a 63-year-old woman with a history of smoking and COPD who is on home oxygen. She still smokes. She was recently hospitalized from May 17 through May 22. During that hospitalization she was thought to possibly have a COPD exacerbation or pneumonia. She was treated with IV antibiotics and steroids. At discharge she was sent home to finish a course of azithromycin and prednisone. She lives at home with her . Over the last 24-48 hours the patient has had increasing shortness of breath, cough, and some right-sided chest pain. No definite fever. She has had some sweats and chills. Today she went to a walk-in clinic where she was noted to be quite short of breath and was displaying an oxygen saturation of 84% on 2 L at the clinic. She is normally on 2 L of nasal cannula at home. Paramedics administered a DuoNeb updraft and methylprednisolone with some improvement. Related Data Home Medications Medication Instructions Recorded Confirmed aspirin 81 mg tablet,delayed 81 mg PO BEDTIME 01/10/21 07/02/23 release (Adult Low Dose Aspirin) umeclidinium 62.5 mcg/actuation 1 inh inhalation DAILY 03/31/21 07/02/23 blister powder for inhalation metformin 1,000 mg tablet 1,000 mg PO BID 01/01/23 07/02/23 linaclotide 145 mcg capsule 145 mcg PO DAILY 05/17/23 07/02/23 (Linzess) fluticasone propionate 250 1 inh inhalation BID 07/02/23 07/02/23 mcg/actuation blister powder for inhalation (Flovent Diskus) naproxen 500 mg tablet 500 mg PO BID for pain 07/02/23 07/02/23 Previous Rx's Medication Instructions Recorded blood-glucose meter (FreeStyle #1 ea 10/03/21 Lite Meter kit) lancets 28 gauge (FreeStyle #100 ea 01/06/22 Lancets) FreeStyle Lite Strips (blood sugar #100 ea 03/10/22 diagnostic) cholecalciferol (vitamin D3) 50 50 mcg PO DAILY #90 caps 11/25/22 mcg (2,000 unit) capsule metoclopramide HCl 10 mg tablet 10 mg PO TIDAC gastroparesis #90 01/01/23 (Reglan) tabs psyllium husk 0.52 gram capsule 1.04 g (2 x 0.52 gram) PO BID 90 02/02/23 (Fiber Laxative (psyllium husk)) days #360 caps flash glucose sensor (FreeStyle #6 ea 02/19/23 Cristian 2 Sensor kit) flash glucose scanning reader #1 ea 03/26/23 (FreeStyle Cristian 2 [place]) losartan 50 mg tablet 50 mg PO DAILY #90 tabs 04/21/23 sitagliptin phosphate 100 mg 100 mg PO DAILY #90 tabs 04/26/23 tablet (Januvia) albuterol sulfate 90 mcg/actuation 2 puff inhalation Q4-6H PRN 05/22/23 aerosol inhaler shortness of breath or wheezing #6.7 grams amitriptyline 25 mg tablet 50 mg (2 x 25 mg) PO BEDTIME 30 06/07/23 days #60 tabs gabapentin 800 mg tablet 800 mg PO TID 30 days #90 tabs 06/07/23 omeprazole 20 mg capsule,delayed 20 mg PO DAILY #90 caps 06/24/23 release rosuvastatin 5 mg tablet 5 mg PO DAILY #90 tabs 06/25/23 Allergies Allergy/AdvReac Type Severity Reaction Status Date / Time amoxicillin [AMOXICILLIN] Allergy Intermediate RASH Verified 07/02/23 12:57 Review of Systems Review of Systems: Yes all other systems are reviewed and are negative PMFSH Past Medical History Medical History Type 2 diabetes mellitus without complication, with no history of insulin use Mixed dyslipidemia Essential hypertension GERD (gastroesophageal reflux disease) Gastroparesis Diastolic CHF with preserved left ventricular function, NYHA class 2 Chronic hypercapnic respiratory failure Type 2 diabetes mellitus with other diabetic kidney complication Type 2 diabetes mellitus without complication, with no history of insulin use Smoker unmotivated to quit Postlaminectomy syndrome of cervical region Seasonal allergic rhinitis Degenerative disc disease, cervical COPD (chronic obstructive pulmonary disease) Postmenopause Dyslipidemia Surgical History H/O cervical discectomy History of esophagogastroduodenoscopy (EGD) Hx of colonoscopy Family History Family History Mother Diabetes Sister Diabetes Mental health disorder Brother Diabetes Father HTN (hypertension) Social History Social History Household Members: Significant Other Housing: House Housing Other:: Mobile Home Do you presently have visiting nurse or other home services: No (S[employer]IOR [employer]) Alcohol intake: former Patient Tobacco Use Status: Current everyday Tobacco user Tobacco use type: Cigarette Cigarette Packs Per Day: 0.5 Cigarettes Per Day: 10 Smoked in Last 30 Days: Yes e-Cigarette/Vaping Use: Never Used Second Hand Smoke Exposure: No Use of substances other than those prescribed or required for medical reasons: No Advance Directives: Yes Advance Directives on File: Yes Advance Directives Date on File: 09/20/21 Nutrition Risks: No Nutritional Risk Patient : No service: No Current occupational status: unemployed Cognitive needs: No Hearing needs: No Vision needs: Yes Physical Exam ED Vital Signs: Vital Signs - 24 hr 07/02/23 12:49 07/02/23 12:53 07/02/23 13:13 Temperature 99.0 F Pulse Rate 120 H 118 H Respiratory Rate 32 H 22 H Blood Pressure 151/69 H Pulse Oximetry 95 94 Oxygen Delivery Method Nasal Cannula Nasal Cannula Oxygen Flow Rate Fraction of Inspired Oxygen 07/02/23 13:33 07/02/23 15:40 07/02/23 15:55 Temperature 102.2 F H Pulse Rate 119 H 122 H 119 H Respiratory Rate 26 H 28 H 27 H Blood Pressure 160/66 H Pulse Oximetry 91 L Oxygen Delivery Method BiPAP Oxygen Flow Rate Fraction of Inspired Oxygen 32 07/02/23 16:17 07/02/23 17:29 Temperature Pulse Rate 114 H Respiratory Rate 32 H 27 H Blood Pressure 128/58 L Pulse Oximetry 90 L Oxygen Delivery Method High Flow Nasal Cannula Oxygen Flow Rate 90 Fraction of Inspired Oxygen BMI result Body Mass Index 24.2 Const Other: Patient is a frail looking, chronically ill-looking 63-year-old who looks older than her age. She is mildly short of breath. She shows some mild increased work of breathing. She does not appear in overt distress however. HENMT Other: Face symmetrical. Mucous membranes unremarkable. Eyes Other: Pupils round equal, conjunctivae are clear, extraocular movements grossly intact Neck Other: No JVD Chest Other: No significant chest wall tenderness. Resp Other: Coarse air entry bilaterally. Breath sounds are equal. Breath sounds are diminished. Cardio Other: The patient is tachycardic. The patient has a regular rate and rhythm. GI Other: The abdomen is soft and nontender. It is mildly protuberant Skin Other: Skin is pale. Neuro Other: The patient is awake and alert it seems reasonably well oriented. No obvious neurological deficit Extrem Other: The patient has very slim lower extremities. No definite calf swelling or tenderness. No calf asymmetry. Medications Administered Generic Name Dose Route Start Last Admin Trade Name Freq PRN Reason Stop Dose Admin Acetaminophen 650 mg 07/02/23 17:52 07/02/23 18:37 Acetaminophen 325 Mg Tablet PO 650 mg Q6H PRN Administration Pain, Mild (Pain Scale 1-3) Discontinued Medications Generic Name Dose Route Start Last Admin Trade Name Freq PRN Reason Stop Dose Admin Albuterol Sulfate 2.5 mg/ 5 mg 07/02/23 15:17 07/02/23 15:37 Albuterol Sulfate 2.5 mg INHALE 07/02/23 15:18 5 mg ONCE ONE Administration Albuterol/Ipratropium 3 ml 07/02/23 13:24 07/02/23 13:33 Albuterol/Iprat 2.5/0.5mg 3 Ml Ampul.Neb INHALE 07/02/23 13:25 3 ml ONCE ONE Administration Albuterol Sulfate 5 mg/ 0 mg 07/02/23 12:47 07/02/23 12:55 Albuterol/Ipratropium 3 ml INHALE 07/02/23 12:48 7.5 each ONCE ONE Administration Furosemide 40 mg 07/02/23 14:35 07/02/23 15:02 Furosemide 40 Mg/4 Ml Vial IVPUSH 07/02/23 14:36 40 mg ONCE ONE Administration Protocol Sodium Chloride 1,000 mls @ 999 mls/hr 07/02/23 13:15 07/02/23 15:02 Ns IV 07/02/23 14:15 Infused .Q1H1M MOUSTAPHA Infusion Ceftriaxone Sodium 1 gm/ 50 mls @ 100 mls/hr 07/02/23 14:34 07/02/23 15:47 Sodium Chloride IV 07/02/23 15:03 Infused ONCE ONE Infusion Azithromycin 500 mg/ Sodium 250 mls @ 125 mls/hr 07/02/23 14:34 07/02/23 15:41 Chloride IV 07/02/23 16:33 125 mls/hr ONCE ONE Administration Medical Decision Making Medical Decision Making [facility] Narrative: The patient is a 63-year-old with history of COPD who was a smoker still smokes. She is on 2 L nasal cannula at home. She has had worsening shortness of breath and some right-sided pleuritic chest pain over the last 24-48 hours. No definite fever. She was satting 84% on 2 L at a local urgent care and was sent here by ambulance. She received methylprednisolone from paramedics as well as a bronchodilator updraft. This is likely a recurrent COPD exacerbation. Pneumonia, Pplmonary embolism, acute coronary syndrome, and congestive heart failure also under consideration. Patient had what I thought was possibly crackles and wheezes and my initial impression of the chest x-ray was that it might show some increased interstitial markings possibly suggestive of some degree of pulmonary edema. She was therefore given 40 mg of furosemide in addition to bronchodilator updrafts. She had received methylprednisolone in the pre-hospital setting. The patient's lactate was mildly elevated to 2.6. This may have been a result of albuterol treatments. She was tachycardic but not hypotensive. Blood cultures were drawn and she was given antibiotics although she was not initially febrile. Ultimately she developed a fever to 102.2. Despite bronchodilator treatments she had dropping oxygen saturations despite supplemental oxygen via nasal cannula. I discussed the case with Dr. Saini of of the intensive care unit. He did not feel patient required ICU level of care. The patient was ultimately put on high-flow nasal cannula. The patient's D-dimer was mildly elevated but given her fever and her positive findings on x-ray I think pulmonary embolism is quite unlikely. Ultimately admitted to the hospitalist service. Lab Data 07/02/23 13:31 07/02/23 13:31 Labs: Lab Results 07/02/23 07/02/23 07/02/23 Range/Units 13:31 13:39 15:01 WBC 13.0 H (4.8-10.8) X10*3/uL RBC 5.20 (4.20-5.50) X10*6/uL Hgb 14.0 (12.0-16.0) g/dl Hct 45.7 (37.0-47.0) % MCV 87.9 (80.0-98.0) fL MCH 26.9 L (27.0-33.0) pg MCHC 30.6 L (31.0-35.0) g/dl RDW 16.4 H (11.0-16.0) % Plt Count 241 (160-400) X10*3/uL MPV 10.0 (9.4-12.3) fL Immature Gran % (Auto) 0.5 H (0.0-0.4) % Neut % (Auto) 81.1 H (45-73) % Lymph % (Auto) 12.4 L (20-40) % Hughes % (Auto) 5.5 (2-11) % Eos % (Auto) 0.2 (0-4) % Baso % (Auto) 0.3 (0-2) % Lymph # (Auto) 1.6 (1.2-4.9) X10*3/uL Hughes # (Auto) 0.7 (0.1-1.2) X10*3/uL Eos # (Auto) 0.0 (0.0-0.4) X10*3/uL Baso # (Auto) 0.0 (0.0-0.2) X10*3/uL Abs Immat Gran (auto) 0.07 H (0.00-0.03) X10*3/uL Absolute Neuts (auto) 10.5 H (2.0-8.3) x10*3/uL Absolute Nucleated RBC 0.000 (0.0-0.012) X10*3/uL Nucleated RBC % (auto) 0.0 (0.0-0.2) /100WBC D-Dimer High Sensitivty 334 NG/ML VBG pH 7.36 (7.32-7.43) VBG pCO2 58 mmHg VBG pO2 50 mmHg VBG HCO3 33 H (22-26) mmol/L VBG O2 Saturation 76.0 % VBG Base Excess 5.7 mmol/L Sodium 141 (135-145) mmol/L Potassium 3.5 (3.3-5.1) mmol/L Chloride 101 (96-108) mmol/L Carbon Dioxide 29 (22-29) mmol/L Anion Gap 15 (12-20) BUN 6 L (9-16) mg/dL Creatinine 0.51 (0.5-1.4) mg/dL Estim Creat Clear Calc 78.5 Estimated GFR > 60 Random Glucose 235 H (60-115) mg/dL Lactic Acid 2.6 H* 2.6 H* (0.5-2.0) mmol/L Calcium 10.6 H D (8.4-10.2) mg/dL Magnesium 1.5 L (1.6-2.6) mg/dL Troponin I High Sens 4.1 (<3.5-17.0) ng/L C-Reactive Protein 21.40 H (< or = 0.50) mg/dL B-Natriuretic Peptide < 10 (<100) pg/mL NT-Pro-B Natriuret Pep Cancelled Procalcitonin 0.06 ng/mL COVID-19 (JN) (Negative) COVID-19 Clin Com Influenza Type A (VERN) (Negative) Influenza Type B (VERN) (Negative) Influenza A & B Note 07/02/23 07/02/23 Range/Units 15:25 17:29 WBC (4.8-10.8) X10*3/uL RBC (4.20-5.50) X10*6/uL Hgb (12.0-16.0) g/dl Hct (37.0-47.0) % MCV (80.0-98.0) fL MCH (27.0-33.0) pg MCHC (31.0-35.0) g/dl RDW (11.0-16.0) % Plt Count (160-400) X10*3/uL MPV (9.4-12.3) fL Immature Gran % (Auto) (0.0-0.4) % Neut % (Auto) (45-73) % Lymph % (Auto) (20-40) % Hughes % (Auto) (2-11) % Eos % (Auto) (0-4) % Baso % (Auto) (0-2) % Lymph # (Auto) (1.2-4.9) X10*3/uL Hughes # (Auto) (0.1-1.2) X10*3/uL Eos # (Auto) (0.0-0.4) X10*3/uL Baso # (Auto) (0.0-0.2) X10*3/uL Abs Immat Gran (auto) (0.00-0.03) X10*3/uL Absolute Neuts (auto) (2.0-8.3) x10*3/uL Absolute Nucleated RBC (0.0-0.012) X10*3/uL Nucleated RBC % (auto) (0.0-0.2) /100WBC D-Dimer High Sensitivty NG/ML VBG pH 7.40 (7.32-7.43) VBG pCO2 54 mmHg VBG pO2 78 mmHg VBG HCO3 34 H (22-26) mmol/L VBG O2 Saturation 94.0 % VBG Base Excess 8.2 mmol/L Sodium (135-145) mmol/L Potassium (3.3-5.1) mmol/L Chloride (96-108) mmol/L Carbon Dioxide (22-29) mmol/L Anion Gap (12-20) BUN (9-16) mg/dL Creatinine (0.5-1.4) mg/dL Estim Creat Clear Calc Estimated GFR Random Glucose (60-115) mg/dL Lactic Acid (0.5-2.0) mmol/L Calcium (8.4-10.2) mg/dL Magnesium (1.6-2.6) mg/dL Troponin I High Sens (<3.5-17.0) ng/L C-Reactive Protein (< or = 0.50) mg/dL B-Natriuretic Peptide (<100) pg/mL NT-Pro-B Natriuret Pep Procalcitonin ng/mL COVID-19 (JN) Negative (Negative) COVID-19 Clin Com See Note Influenza Type A (VERN) Negative (Negative) Influenza Type B (VERN) Negative (Negative) Influenza A & B Note See Note Critical Care Time Critical Care Time Total Critical Care Time: 45 Attestation: The patient was critically ill with a high probability of imminent or life-threatening deterioration. I spent greater than 30 minutes of discontinuous time evaluating the patient, delivering critical care at the bedside, discussing evaluating data with consultants. Critical care time does not include time spent performing separately billable procedures or teaching. Time spent performing critical care with 45 minutes. Discharge Plan Discharge Clinical Impression: Pneumonia
--- NOTE | 2023-07-02 13:18 | PC.NURSE ---
Pt ZHAOSANDI from [facility] walk in clinic with complaints of increase shortness of breath for one week. Pt was recently admitted here 2-3 weeks ago (Per pt and ems report) for the same respiratory sx. Pt states she was dc'd on steroids and abx. Pt does have a history of COPD and CHF; pt is chronically on 2l NC; pt was satting at 85% on arrival to the walk in clinic on 2L. Pt was transitioned to 4L NC via ems application, and now is satting at 94 %. Pt received a duo neb as well as solumedrol for resp. sx. Pt reports she is a chronic daily smoker, and is still currently smoking; pt is finding it difficult to quit. Pt received an updraft tx on arrival here to the ED by Respiratory therapists. Prior to updraft tx, pt lung sounds are diminished throughout with fine crackles auscultated at bases. Pt has productive cough (prado sputum produced). Pt is reporting a pain to the right lateral side of abdomen (8/10 pain) with an onset of one week. Care ongoing.
[2023-07-02] MEDS: Albuterol/Iprat 2.5/0.5MG 3 ML AMPUL.NEB INHALE ×2 (13:33→19:31)
[2023-07-02 13:40] LABS: MANUAL DIFF FLAG NO
[2023-07-02 13:41] LABS: Venous Blood Gas Refer to POC result
[2023-07-02 13:42] LABS: Basophils Percent Auto 0.3 % (0-2); Eosinophils Percent Auto 0.2 % (0-4); Hematocrit 45.7 % (37.0-47.0); Imm Gran Abs Auto 0.07 X10*3/uL (0.00-0.03); Imm Gran Pct Auto 0.5 % (0.0-0.4); Lymphocytes Absolute Auto 1.6 X10*3/uL (1.2-4.9); Lymphocytes Percent Auto 12.4 % (20-40); Mean Corpuscular HGB Conc 30.6 g/dl (31.0-35.0); Mean Corpuscular Hemoglobin 26.9 pg (27.0-33.0); Mean Corpuscular Volume 87.9 fL (80.0-98.0); Monocytes Absolute Auto 0.7 X10*3/uL (0.1-1.2); Monocytes Percent Auto 5.5 % (2-11); Neutrophils Absolute Auto 10.5 x10*3/uL (2.0-8.3); Neutrophils Percent Auto 81.1 % (45-73); Platelet Count 241 X10*3/uL (160-400); Red Cell Distribution Width 16.4 % (11.0-16.0)
[2023-07-02 13:44] LABS: VBG Base Excess 5.7 mmol/L; VBG HCO3 33 mmol/L (22-26); VBG pCO2 58 mmHg; VBG pH 7.36 (7.32-7.43); VBG pO2 50 mmHg
[2023-07-02 13:50] LABS: D Dimer High Sensitivity 334 NG/ML
[2023-07-02] MEDS: 0.9 % Sodium Chloride 1,000 ML 999 ML IV (13:53)
[2023-07-02 14:01] LABS: Anion Gap 15 (12-20); Blood Urea Nitrogen 6 mg/dL (9-16); Calcium 10.6 mg/dL (8.4-10.2); Carbon Dioxide 29 mmol/L (22-29); Chloride 101 mmol/L (96-108); Creatinine Clr Calc Pharmacy 78.5; Estimated Glomerular Filt Rate > 60; Glucose Random 235 mg/dL (60-115); Magnesium 1.5 mg/dL (1.6-2.6); Potassium 3.5 mmol/L (3.3-5.1); Sodium 141 mmol/L (135-145)
[2023-07-02 14:11] LABS: Troponin-I High Sensitivity 4.1 ng/L (<3.5-17.0)
[2023-07-02 14:34] LABS: Lactic Acid 2.6 mmol/L (0.5-2.0)
[2023-07-02] MEDS: Furosemide 40 MG/4 ML VIAL IVPUSH (15:02)
[2023-07-02] MEDS: cefTRIAXone sodium 1 GM in 0.9 % Sodium Chloride 50 ML IV (15:02)
[2023-07-02 15:32] LABS: Lactic Acid 2.6 mmol/L (0.5-2.0)
[2023-07-02] MEDS: Albuterol Sulfate 2.5 MG, Albuterol Sulfate (0.083%) 2.5 MG 5 MG INHALE (15:37)
[2023-07-02 15:38] LABS: Reflex Lactate? Lactic Acid Added
[2023-07-02] MEDS: Azithromycin 500 MG in 0.9 % Sodium Chloride 250 ML 125 MG IV (15:41)
[2023-07-02 15:45] LABS: Procalcitonin 0.06 ng/mL
[2023-07-02 15:45] LABS: COVID-19 Test Negative (Negative); IDNOW Serial# 9DB6401D
--- NOTE | 2023-07-02 15:45 | PC.NURSE ---
Pt dest to 84% on Oxy mask; respiratory to bedside; applied neb tx on 4l 02; Pt then dest to 78%. Provider notified; Resp now placing Pt. on Bipap.
[2023-07-02 15:47] LABS: IDNOW Serial# 08D9AD1C; Influenza A Negative (Negative); Influenza B2 Negative (Negative)
--- NOTE | 2023-07-02 15:50 | PC.NURSE ---
No fluid bolus given secondary to pulmonary congestion/chf exacerbation status.
[2023-07-02 16:16] LABS: B Type Natriuretic Peptide < 10 pg/mL (<100)
[2023-07-02 17:10] LABS: Reflex Lactate? Lactic Acid Added
[2023-07-02 17:38] LABS: VBG Base Excess 8.2 mmol/L; VBG HCO3 34 mmol/L (22-26); VBG pCO2 54 mmHg; VBG pO2 78 mmHg
[2023-07-02 17:47] LABS: Venous Blood Gas Refer to POC result
--- NOTE | 2023-07-02 17:53 | PHA.MEDREC ---
Pharmacy Consult ? Medication Reconciliation Pharmacy has completed the medication reconciliation. Patient confirmed medications. Family member aware to bring Linzess for the patient. Ricarda Casey, RicaD
--- NOTE | 2023-07-02 18:01 | P.HPHOSP_ITS ---
History of Present Illness Date of Service: 07/02/23 Chief Complaint: dyspnea 63yo F with COPD on home O2, ongoing tobacco abuse, DM2 with gastroparesis, and HTN who presents with 2 weeks of worsening dyspnea and cough productive of kary sputum. She was admitted here 05/17-05/22/23 for COPD exacerbation and pneumonia requiring BiPAP. Here in the ED, she was found to be hypoxic to SaO2 80% with fever of 102.2F and tachycardia in the 120s. VBG with pH 7.4, pCO2 54. WBC 13. CRP 21.4, PCT 0.06. Lactate 2.6. CXR showed increased bronchial wall thickening as well as new/increased bibasilar infiltrate. Flu A/B and Covid-19 NAATs negative. She was given neb treatments, Lasix, Rocephin, and azithromycin. She was placed on HFNC and is currently at 50% fiO2. She was evaluated by the ICU physician who did not think the patient required ICU level of care. Review of Systems 2 Review of Systems: Yes all other systems are reviewed and are negative [facility] Medical History Type 2 diabetes mellitus without complication, with no history of insulin use Mixed dyslipidemia Essential hypertension GERD (gastroesophageal reflux disease) Gastroparesis Diastolic CHF with preserved left ventricular function, NYHA class 2 Chronic hypercapnic respiratory failure Type 2 diabetes mellitus with other diabetic kidney complication Type 2 diabetes mellitus without complication, with no history of insulin use Smoker unmotivated to quit Postlaminectomy syndrome of cervical region Seasonal allergic rhinitis Degenerative disc disease, cervical COPD (chronic obstructive pulmonary disease) Postmenopause Dyslipidemia Family History Mother Diabetes Sister Diabetes Mental health disorder Brother Diabetes Father HTN (hypertension) Surgical History H/O cervical discectomy History of esophagogastroduodenoscopy (EGD) Hx of colonoscopy Social History Household Members: Significant Other Housing: House Housing Other:: Mobile Home Do you presently have visiting nurse or other home services: No ([employer]) Alcohol intake: former Patient Tobacco Use Status: Current everyday Tobacco user Tobacco use type: Cigarette Cigarette Packs Per Day: 0.5 Cigarettes Per Day: 10 Smoked in Last 30 Days: Yes e-Cigarette/Vaping Use: Never Used Second Hand Smoke Exposure: No Use of substances other than those prescribed or required for medical reasons: No Advance Directives: Yes Advance Directives on File: Yes Advance Directives Date on File: 09/20/21 Patient : No service: No Current occupational status: unemployed Cognitive needs: No Hearing needs: No Vision needs: Yes Meds Allergies Allergy/AdvReac Type Severity Reaction Status Date / Time amoxicillin [AMOXICILLIN] Allergy Intermediate RASH Verified 07/02/23 12:57 Active Medications: Current Medications Acetaminophen (Acetaminophen 325 Mg Tablet) 650 mg PO Q6H PRN PRN Reason: Pain, Mild (Pain Scale 1-3) Albuterol Sulfate (Albuterol Sulfate (0.083%) 2.5 Mg/3 Ml Vial.Neb) 2.5 mg INHALE Q2H PRN PRN Reason: Shortness of Breath/Wheezing Albuterol/Ipratropium (Albuterol/Iprat 2.5/0.5mg 3 Ml Ampul.Neb) 3 ml INHALE RQ4H WHILE AWAKE [facility] Amitriptyline HCl (Amitriptyline Hcl 50 Mg Tablet) 50 mg PO BEDTIME [facility] Aspirin (Aspirin Enteric Coated 81 Mg Tablet.Dr) 81 mg PO BEDTIME [facility] Dextrose (Dextrose 50 % 25 Gm/50 Ml Syringe) 25 gm IVPUSH Q15M PRN; Protocol PRN Reason: per Hypoglycemia Standing Ord. Enoxaparin Sodium (Enoxaparin Sodium 40 Mg/0.4 Ml Syringe) 40 mg SUBCUT Q24H [facility] Fluticasone Propionate (Fluticasone Propionate 250 Mcg Blst.W.Dev) 1 puff INHALE BID [facility] Gabapentin (Gabapentin 400 Mg Capsule) 800 mg PO TID [facility] Glucose (Glucose Gel 15 Gm Gel..Gram.) 15 gm PO Q15M PRN; Protocol PRN Reason: per Hypoglycemia Standing Ord. Ceftriaxone Sodium 1 gm/ (Sodium Chloride) 50 mls @ 100 mls/hr IV Q24H [facility] Doxycycline Hyclate 100 mg/ (Sodium Chloride) 250 mls @ 166.67 mls/hr IV Q12H [facility] Insulin Human Lispro (Insulin Lispro 100 Unit/Ml 3 Ml Vial) 0 unit SUBCUT QIDACHS [facility]; Protocol Losartan Potassium (Losartan Potassium 50 Mg Tablet) 50 mg PO DAILY [facility]; Protocol Methylprednisolone Sodium Succinate (Methylprednisolone Sod Succ 40 Mg/Ml Vial) 40 mg IVPUSH Q12H [facility] Metoclopramide HCl (Metoclopramide Hcl 10 Mg Tablet) 10 mg PO TIDAC [facility] Non-Formulary Medication (Rosuvastatin) 5 mg PO DAILY [facility] Non-Formulary Medication (Linaclotide [Linzess]) 145 mcg PO DAILY [facility] Non-Formulary Medication (Umeclidinium) 1 inhalation INHALE DAILY [facility] Omeprazole (Omeprazole 20 Mg Capsule.Dr) 20 mg PO DAILY [facility] Sodium Chloride (0.9 % Sodium Chloride Flush 3 Ml Syringe) 3 ml IVFLUSH QSHIFT [facility] Vitamin D (Cholecalciferol (Vitamin D3) 25 Mcg Tablet) 50 mcg PO DAILY [facility] Home Medications Medication Instructions Recorded Confirmed Last Taken Type aspirin 81 mg tablet,delayed 81 mg PO BEDTIME 01/10/21 07/02/23 07/01/23 History release (Adult Low Dose Aspirin) umeclidinium 62.5 mcg/actuation 1 inh inhalation DAILY 03/31/21 07/02/23 07/02/23 History blister powder for inhalation metformin 1,000 mg tablet 1,000 mg PO BID 01/01/23 07/02/23 07/02/23 History linaclotide 145 mcg capsule 145 mcg PO DAILY 05/17/23 07/02/23 07/02/23 History (Linzess) fluticasone propionate 250 1 inh inhalation BID 07/02/23 07/02/23 07/02/23 History mcg/actuation blister powder for inhalation (Flovent Diskus) naproxen 500 mg tablet 500 mg PO BID for pain 07/02/23 07/02/23 07/02/23 History Physical Exam 2 Vital Signs and Narrative: Vital Signs: Last Vital Signs Temp 102.2 F H 07/02/23 15:55 Pulse 114 H 07/02/23 17:29 Resp 27 H 07/02/23 17:29 BP 128/58 L 07/02/23 17:29 Pulse Ox 90 L 07/02/23 17:29 O2 Del Method High Flow Nasal C annula 07/02/23 17:29 O2 Flow Rate 90 07/02/23 17:29 FiO2 32 07/02/23 15:55 Oxygen Flow Rate 4 07/02/23 13:13 BMI result Body Mass Index 24.2 Gen: in moderate resp distress, tremulous HEENT: sclera anicteric, moist mucus membranes Neck: supple Lungs: diffuse expiratory wheezes, diminshed air entry at bases Heart: tachycardic, no murmurs Abd: soft, non-tender, non-distended Ext: no edema Skin: warm/well-perfused Neuro: alert and oriented x3, no focal findings Psych: appropriate affect Results Labs 07/02/23 13:31 07/02/23 13:31 Labs: Laboratory Results - last 24 hr 07/02/23 07/02/23 07/02/23 13:31 13:39 15:01 MCV 87.9 MCH 26.9 L MCHC 30.6 L RDW 16.4 H Plt Count 241 MPV 10.0 Immature Gran % (Auto) 0.5 H Neut % (Auto) 81.1 H Lymph % (Auto) 12.4 L [place] % (Auto) 5.5 Eos % (Auto) 0.2 Baso % (Auto) 0.3 Lymph # (Auto) 1.6 [place] # (Auto) 0.7 Eos # (Auto) 0.0 Baso # (Auto) 0.0 Abs Immat Gran (auto) 0.07 H Absolute Neuts (auto) 10.5 H Absolute Nucleated RBC 0.000 Nucleated RBC % (auto) 0.0 D-Dimer High Sensitivty 334 VBG pH 7.36 VBG pCO2 58 VBG pO2 50 VBG HCO3 33 H VBG O2 Saturation 76.0 VBG Base Excess 5.7 Anion Gap 15 Estim Creat Clear Calc 78.5 Estimated GFR > 60 Random Glucose 235 H Lactic Acid 2.6 H* 2.6 H* Calcium 10.6 H D Magnesium 1.5 L C-Reactive Protein 21.40 H B-Natriuretic Peptide < 10 NT-Pro-B Natriuret Pep Cancelled Procalcitonin 0.06 COVID-19 (JN) COVID-19 Clin Com Influenza Type A (VERN) Influenza Type B (VERN) Influenza A & B Note 07/02/23 07/02/23 15:25 17:29 MCV MCH MCHC RDW Plt Count MPV Immature Gran % (Auto) Neut % (Auto) Lymph % (Auto) [place] % (Auto) Eos % (Auto) Baso % (Auto) Lymph # (Auto) [place] # (Auto) Eos # (Auto) Baso # (Auto) Abs Immat Gran (auto) Absolute Neuts (auto) Absolute Nucleated RBC Nucleated RBC % (auto) D-Dimer High Sensitivty VBG pH 7.40 VBG pCO2 54 VBG pO2 78 VBG HCO3 34 H VBG O2 Saturation 94.0 VBG Base Excess 8.2 Anion Gap Estim Creat Clear Calc Estimated GFR Random Glucose Lactic Acid Calcium Magnesium C-Reactive Protein B-Natriuretic Peptide NT-Pro-B Natriuret Pep Procalcitonin COVID-19 (JN) Negative COVID-19 Clin Com See Note Influenza Type A (VERN) Negative Influenza Type B (VERN) Negative Influenza A & B Note See Note Imaging Radiologist's Impressions: Impressions Chest X-Ray 07/02/23 13:59 IMPRESSION: Worsening pulmonary aeration with increased bronchial wall thickening as well as new/increased bibasilar infiltrates. Findings are worrisome for an atypical/viral pneumonia in the appropriate clinical context. Recommend follow-up chest radiograph after treatment. Assessment and Plan (1) Pneumonia: Status: Acute (2) Smoker unmotivated to quit: Status: Acute (3) Essential hypertension: Status: Acute Plan 63yo F with COPD on home O2, ongoing tobacco abuse, DM2 with gastroparesis, and HTN who presents with 2 weeks of dyspnea and productive cough and is found to be septic and hypoxic due to pneumonia sepsis and acute hypoxic resp failure due to pneumonia - admit to med-tele, give ceftriaxone + doxycycline, trend PCT, check urinary antigens for Legionella + pneumococcus, follow BCx, wean off HFNC as tolerated COPD exac - give IV steroids, standing/prn bronchodilators HLD - atorvastatin HTN - losartan DM2 - hold OHGs, give maico-dose lispro gastroparesis - Reglan tobacco abuse - NRT VTE prophylaxis - LMWH dispo - TBD code status - full I anticipate that the patient will stay at least 2 midnights as an inpatient in the hospital due to the above reasons. It is neither reasonable nor safe to care for them in a less acute setting. Quality Stroke Does the patient have a stroke diagnosis?: No VTE Prior VTE?: No VTE Risk Level:: Medical - moderate - high VTE Device Contraindication: N/A - Device Ordered VTE Drug Contraindication: N/A - Med Ordered
--- NOTE | 2023-07-02 18:28 | PC.NURSE ---
Pt removed highflow NC and desatted to 79% on RA. Highflow replaced; Pt now satting 92%
[2023-07-02] MEDS: Acetaminophen 325 MG TABLET 650 MG PO (18:37)
[2023-07-02] MEDS: Doxycycline Hyclate 100 MG in 0.9 % Sodium Chloride 250 ML 166.67 MG IV (19:04)
--- NOTE | 2023-07-02 19:05 | PC.NURSE ---
assumed care of pt
[2023-07-02] MEDS: methylPREDNISolone Sod Succ 40 MG/ML VIAL IVPUSH (19:14)
[2023-07-02] MEDS: Enoxaparin Sodium 40 MG/0.4 ML SYRINGE SUBCUT (19:14)
[2023-07-02] MEDS: Gabapentin 400 MG CAPSULE 800 MG PO (20:50)
[2023-07-02] MEDS: Aspirin Enteric Coated 81 MG TABLET.DR PO (20:50)
[2023-07-02 20:59] LABS: Glucose, Whole Blood 140 mg/dL (60-115)
[2023-07-02] MEDS: Amitriptyline HCl 50 MG TABLET PO (22:05)
[2023-07-03] VITALS (15 sets, daily range): BP systolic 134–176; BP diastolic 55–75; PULSE 84–95; RESP 18–26; TEMP 35.9–36.4; O2SAT 92–100
[2023-07-03 05:53] LABS: Hematocrit 41.4 % (37.0-47.0); Hemoglobin 12.9 g/dl (12.0-16.0); Mean Corpuscular HGB Conc 31.2 g/dl (31.0-35.0); Mean Corpuscular Hemoglobin 26.9 pg (27.0-33.0); Mean Corpuscular Volume 86.3 fL (80.0-98.0); Platelet Count 281 X10*3/uL (160-400); Red Cell Distribution Width 16.4 % (11.0-16.0); White Blood Count 15.1 X10*3/uL (4.8-10.8)
[2023-07-03 05:55] LABS: VBG Base Excess 13.1 mmol/L; VBG HCO3 39 mmol/L (22-26); VBG pCO2 56 mmHg; VBG pH 7.45 (7.32-7.43); VBG pO2 64 mmHg
[2023-07-03 06:02] LABS: Venous Blood Gas Refer to POC result
[2023-07-03] MEDS: Doxycycline Hyclate 100 MG in 0.9 % Sodium Chloride 250 ML 166.67 MG IV ×2 (06:02→17:00)
[2023-07-03 06:06] LABS: Anion Gap 12 (12-20); Blood Urea Nitrogen 8 mg/dL (9-16); Calcium 10.6 mg/dL (8.4-10.2); Carbon Dioxide 34 mmol/L (22-29); Chloride 100 mmol/L (96-108); Creatinine Clr Calc Pharmacy 78.5; Estimated Glomerular Filt Rate > 60; Glucose Random 183 mg/dL (60-115); Potassium 3.5 mmol/L (3.3-5.1); Sodium 142 mmol/L (135-145)
[2023-07-03] MEDS: Omeprazole 20 MG CAPSULE.DR PO (06:17)
[2023-07-03] MEDS: methylPREDNISolone Sod Succ 40 MG/ML VIAL IVPUSH ×2 (06:17→17:00)
[2023-07-03 07:08] LABS: Glucose, Whole Blood 151 mg/dL (60-115)
[2023-07-03] MEDS: 0.9 % Sodium Chloride Flush 3 ML SYRINGE IVFLUSH ×3 (07:16→21:22)
[2023-07-03] MEDS: Insulin Lispro 100 UNIT/ML 3 ML VIAL SUBCUT ×2 (07:16→21:22)
[2023-07-03] MEDS: Metoclopramide HCl 10 MG TABLET PO ×3 (07:16→17:00)
--- NOTE | 2023-07-03 07:20 | PC.NURSE ---
pt is alert and oriented, skin slightly warm and clammy to touch, respirations slightly labored and breathing at about 26 respirations per min, ls course on the bases and some expiatory wheezing, pt is currently running on reese flow at 50% of oxygen and at 40liters and sating anywhere from 94-96%, pt is reporting right sided rib/under her right breast pain 10/10 describes it as tightness and stabbing pain. ns on the monitor and vs stable
[2023-07-03] MEDS: Albuterol/Iprat 2.5/0.5MG 3 ML AMPUL.NEB INHALE ×4 (08:07→19:47)
[2023-07-03] MEDS: Gabapentin 400 MG CAPSULE 800 MG PO ×3 (09:10→21:21)
[2023-07-03] MEDS: Losartan Potassium 50 MG TABLET PO (09:10)
[2023-07-03] MEDS: Cholecalciferol (Vitamin D3) 25 MCG TABLET 50 MCG PO (09:10)
[2023-07-03] MEDS: Atorvastatin Calcium 20 MG TABLET PO (09:10)
[2023-07-03] MEDS: Nicotine 14 MG PATCH.TD24 TRANSDERMA (09:11)
--- NOTE | 2023-07-03 09:32 | MHC.EDTECH ---
Patient asked for a commode to have a BM. Patient was able to get up to the commode with a standby assist. Patient had a medium size soft BM.
--- NOTE | 2023-07-03 10:37 | HO.PM.IMPN ---
Subjective Subjective Date of Service: 07/03/23 Interval History: coughing but afebrile still on HFNC 50% FiO2 Review of Systems Review of Systems: Yes all other systems are reviewed and are negative Physical Exam Vital Signs: Vital Signs: Last Vital Signs Temp 98.4 F 07/02/23 19:10 Pulse 94 07/03/23 09:12 Resp 24 H 07/03/23 09:12 BP 166/55 H 07/03/23 09:12 Pulse Ox 97 07/03/23 09:12 O2 Del Method High Flow Nasal C annula 07/03/23 09:12 O2 Flow Rate 50 07/03/23 09:12 FiO2 54 07/02/23 18:40 Oxygen Flow Rate 4 07/02/23 13:13 BMI result Body Mass Index 24.2 Gen: in mild resp distress HEENT: sclera anicteric, moist mucus membranes Neck: supple Lungs: diffuse expiratory wheezes, diminished air entry at bases Heart: regular, no murmurs Abd: soft, non-tender, non-distended Ext: no edema Skin: warm/well-perfused Neuro: alert and oriented x3, no focal findings Psych: appropriate affect Objective Data Active Medications Acetaminophen (Acetaminophen 325 Mg Tablet) 650 mg PO Q6H PRN PRN Reason: Pain, Mild (Pain Scale 1-3) Last Admin: 07/02/23 18:37 Dose: 650 mg Documented By: MICAELA Albuterol Sulfate (Albuterol Sulfate (0.083%) 2.5 Mg/3 Ml Vial.Neb) 2.5 mg INHALE Q2H PRN PRN Reason: Shortness of Breath/Wheezing Albuterol/Ipratropium (Albuterol/Iprat 2.5/0.5mg 3 Ml Ampul.Neb) 3 ml INHALE RQ4H WHILE AWAKE [facility] Last Admin: 07/03/23 08:07 Dose: 3 ml Documented By: DHRUV Amitriptyline HCl (Amitriptyline Hcl 50 Mg Tablet) 50 mg PO BEDTIME [facility] Last Admin: 07/02/23 22:05 Dose: 50 mg Documented By: GAVINO Aspirin (Aspirin Enteric Coated 81 Mg Tablet.Dr) 81 mg PO BEDTIME [facility] Last Admin: 07/02/23 20:50 Dose: 81 mg Documented By: GAVINO Atorvastatin Calcium (Atorvastatin Calcium 20 Mg Tablet) 20 mg PO DAILY [facility] Last Admin: 07/03/23 09:10 Dose: 20 mg Documented By: SANJUANITA Dextrose (Dextrose 50 % 25 Gm/50 Ml Syringe) 25 gm IVPUSH Q15M PRN; Protocol PRN Reason: per Hypoglycemia Standing Ord. Enoxaparin Sodium (Enoxaparin Sodium 40 Mg/0.4 Ml Syringe) 40 mg SUBCUT Q24H [facility] Last Admin: 07/02/23 19:14 Dose: 40 mg Documented By: GAVINO Fluticasone Propionate (Fluticasone Propionate 250 Mcg Blst.W.Dev) 1 puff INHALE RBID [facility] Last Admin: 07/03/23 08:09 Dose: Not Given Documented By: DHRUV Non-Admin Reason: Med Not Available Gabapentin (Gabapentin 400 Mg Capsule) 800 mg PO TID [facility] Last Admin: 07/03/23 09:10 Dose: 800 mg Documented By: SANJUANITA Glucose (Glucose Gel 15 Gm Gel..Gram.) 15 gm PO Q15M PRN; Protocol PRN Reason: per Hypoglycemia Standing Ord. Ceftriaxone Sodium 1 gm/ (Sodium Chloride) 50 mls @ 100 mls/hr IV Q24H [facility] Doxycycline Hyclate 100 mg/ (Sodium Chloride) 250 mls @ 166.67 mls/hr IV Q12H [facility] Last Infusion: 07/03/23 08:15 Dose: Infused Documented By: SANJUANITA Insulin Human Lispro (Insulin Lispro 100 Unit/Ml 3 Ml Vial) 0 unit SUBCUT QIDACHS [facility]; Protocol Last Admin: 07/03/23 07:16 Dose: 2 unit Documented By: SANJUANITA Losartan Potassium (Losartan Potassium 50 Mg Tablet) 50 mg PO DAILY [facility]; Protocol Last Admin: 07/03/23 09:10 Dose: 50 mg Documented By: SANJUANITA Methylprednisolone Sodium Succinate (Methylprednisolone Sod Succ 40 Mg/Ml Vial) 40 mg IVPUSH Q12H [facility] Last Admin: 07/03/23 06:17 Dose: 40 mg Documented By: GAVINO Metoclopramide HCl (Metoclopramide Hcl 10 Mg Tablet) 10 mg PO TIDAC [facility] Last Admin: 07/03/23 07:16 Dose: 10 mg Documented By: SANJUANITA Nicotine (Nicotine 14 Mg Patch.Td24) 14 mg TRANSDERMA DAILY [facility] Last Admin: 07/03/23 09:11 Dose: 14 mg Documented By: SANJUANITA Non-Formulary Medication (Linaclotide [Linzess]) 145 mcg PO DAILY [facility] Omeprazole (Omeprazole 20 Mg Capsule.Dr) 20 mg PO DAILY@0630 [facility] Last Admin: 07/03/23 06:17 Dose: 20 mg Documented By: GAVINO Sodium Chloride (0.9 % Sodium Chloride Flush 3 Ml Syringe) 3 ml IVFLUSH QSHIFT [facility] Last Admin: 07/03/23 07:16 Dose: 3 ml Documented By: SANJUANITA Tiotropium [place] (Tiotropium [place] 2.5 Mcg 1 Puff/2.5 Mcg Mist.Inhal) 1 puff INHALE RDAILY [facility] Last Admin: 07/03/23 08:09 Dose: Not Given Documented By: DHRUV Non-Admin Reason: Med Not Available Vitamin D (Cholecalciferol (Vitamin D3) 25 Mcg Tablet) 50 mcg PO DAILY [facility] Last Admin: 07/03/23 09:10 Dose: 50 mcg Documented By: SANJUANITA Labs 07/03/23 05:45 07/03/23 05:45 Labs: Laboratory Results - last 24 hr 07/02/23 07/02/23 07/02/23 13:31 13:39 15:01 MCV 87.9 MCH 26.9 L MCHC 30.6 L RDW 16.4 H Plt Count 241 MPV 10.0 Immature Gran % (Auto) 0.5 H Neut % (Auto) 81.1 H Lymph % (Auto) 12.4 L [place] % (Auto) 5.5 Eos % (Auto) 0.2 Baso % (Auto) 0.3 Lymph # (Auto) 1.6 [place] # (Auto) 0.7 Eos # (Auto) 0.0 Baso # (Auto) 0.0 Abs Immat Gran (auto) 0.07 H Absolute Neuts (auto) 10.5 H Absolute Nucleated RBC 0.000 Nucleated RBC % (auto) 0.0 D-Dimer High Sensitivty 334 VBG pH 7.36 VBG pCO2 58 VBG pO2 50 VBG HCO3 33 H VBG O2 Saturation 76.0 VBG Base Excess 5.7 Anion Gap 15 Estim Creat Clear Calc 78.5 Estimated GFR > 60 POC Glucose Random Glucose 235 H Lactic Acid 2.6 H* 2.6 H* Calcium 10.6 H D Magnesium 1.5 L C-Reactive Protein 21.40 H B-Natriuretic Peptide < 10 NT-Pro-B Natriuret Pep Cancelled Procalcitonin 0.06 COVID-19 (JN) COVID-19 Clin Com Influenza Type A (VERN) Influenza Type B (VERN) Influenza A & B Note 07/02/23 07/02/23 07/02/23 15:25 17:29 20:50 MCV MCH MCHC RDW Plt Count MPV Immature Gran % (Auto) Neut % (Auto) Lymph % (Auto) [place] % (Auto) Eos % (Auto) Baso % (Auto) Lymph # (Auto) [place] # (Auto) Eos # (Auto) Baso # (Auto) Abs Immat Gran (auto) Absolute Neuts (auto) Absolute Nucleated RBC Nucleated RBC % (auto) D-Dimer High Sensitivty VBG pH 7.40 VBG pCO2 54 VBG pO2 78 VBG HCO3 34 H VBG O2 Saturation 94.0 VBG Base Excess 8.2 Anion Gap Estim Creat Clear Calc Estimated GFR POC Glucose 140 H Random Glucose Lactic Acid Calcium Magnesium C-Reactive Protein B-Natriuretic Peptide NT-Pro-B Natriuret Pep Procalcitonin COVID-19 (JN) Negative COVID-19 Clin Com See Note Influenza Type A (VERN) Negative Influenza Type B (VERN) Negative Influenza A & B Note See Note 07/03/23 07/03/23 07/03/23 05:45 05:49 07:04 MCV 86.3 MCH 26.9 L MCHC 31.2 RDW 16.4 H Plt Count 281 MPV 10.0 Immature Gran % (Auto) Neut % (Auto) Lymph % (Auto) [place] % (Auto) Eos % (Auto) Baso % (Auto) Lymph # (Auto) [place] # (Auto) Eos # (Auto) Baso # (Auto) Abs Immat Gran (auto) Absolute Neuts (auto) Absolute Nucleated RBC 0.000 Nucleated RBC % (auto) 0.0 D-Dimer High Sensitivty VBG pH 7.45 H VBG pCO2 56 VBG pO2 64 VBG HCO3 39 H VBG O2 Saturation 91.0 VBG Base Excess 13.1 Anion Gap 12 Estim Creat Clear Calc 78.5 Estimated GFR > 60 POC Glucose 151 H Random Glucose 183 H Lactic Acid Calcium 10.6 H Magnesium C-Reactive Protein B-Natriuretic Peptide NT-Pro-B Natriuret Pep Procalcitonin COVID-19 (JN) COVID-19 Clin Com Influenza Type A (VERN) Influenza Type B (VERN) Influenza A & B Note Assessment and Plan (1) Pneumonia: Status: Acute Plan d2 63yo F with COPD on home O2, ongoing tobacco abuse, DM2 with gastroparesis, and HTN who presents with 2 weeks of dyspnea and productive cough and is found to be septic and hypoxic due to pneumonia sepsis and [id number] hypoxic resp failure due to pneumonia - d2 ceftriaxone + doxycycline, trend PCT, urinary antigens for Legionella + pneumococcus pending, follow BCx, wean off HFNC to home dose of 2L O2 as tolerated COPD exac - continue IV methylprednisolone, standing/prn bronchodilators, controller inhalers HLD - atorvastatin HTN - losartan DM2 - hold OHGs, give maico-dose lispro gastroparesis - metoclopramide tobacco abuse - NRT VTE prophylaxis - LMWH dispo - TBD In my clinical judgment, the patient requires continued inpatient hospitalization for the following reasons: hypoxia, IV ABX Total time managing care of this patient today: 40 minutes. Quality Stroke Does the patient have a stroke diagnosis?: No VTE Prior VTE?: No VTE Risk Level:: Medical - moderate - high VTE Device Contraindication: N/A - Device Ordered VTE Drug Contraindication: N/A - Med Ordered
--- NOTE | 2023-07-03 11:54 | PC.NURSE ---
Patient sleeping, respirations even and unlabored, no apparent distress at this time
[2023-07-03 12:01] LABS: Glucose, Whole Blood 193 mg/dL (60-115)
[2023-07-03 14:45] LABS: Glucose, Whole Blood 126 mg/dL (60-115)
[2023-07-03] MEDS: cefTRIAXone sodium 1 GM in 0.9 % Sodium Chloride 50 ML IV (15:14)
[2023-07-03 16:39] LABS: Glucose, Whole Blood 137 mg/dL (60-115)
[2023-07-03] MEDS: Enoxaparin Sodium 40 MG/0.4 ML SYRINGE SUBCUT (17:00)
[2023-07-03 21:12] LABS: Glucose, Whole Blood 290 mg/dL (60-115)
[2023-07-03] MEDS: Aspirin Enteric Coated 81 MG TABLET.DR PO (21:21)
[2023-07-03] MEDS: Amitriptyline HCl 50 MG TABLET PO (21:21)
[2023-07-04] VITALS (14 sets, daily range): BP systolic 149–182; BP diastolic 58–83; PULSE 79–99; RESP 16–24; TEMP 36.1–36.6; O2SAT 91–96
[2023-07-04] MEDS: Doxycycline Hyclate 100 MG in 0.9 % Sodium Chloride 250 ML 166.67 MG IV ×2 (05:30→16:57)
[2023-07-04] MEDS: methylPREDNISolone Sod Succ 40 MG/ML VIAL IVPUSH ×2 (05:30→16:57)
[2023-07-04] MEDS: Omeprazole 20 MG CAPSULE.DR PO (05:30)
[2023-07-04 06:07] LABS: VBG Base Excess 16.4 mmol/L; VBG HCO3 43 mmol/L (22-26); VBG pCO2 58 mmHg; VBG pH 7.47 (7.32-7.43); VBG pO2 98 mmHg
[2023-07-04 06:26] LABS: Anion Gap 14 (12-20); Blood Urea Nitrogen 9 mg/dL (9-16); Calcium 10.9 mg/dL (8.4-10.2); Carbon Dioxide 34 mmol/L (22-29); Chloride 98 mmol/L (96-108); Creatinine Clr Calc Pharmacy 78.5; Estimated Glomerular Filt Rate > 60; Glucose Random 149 mg/dL (60-115); Potassium 4.1 mmol/L (3.3-5.1); Sodium 142 mmol/L (135-145)
[2023-07-04 06:36] LABS: Hematocrit 40.2 % (37.0-47.0); Hemoglobin 12.1 g/dl (12.0-16.0); Mean Corpuscular HGB Conc 30.1 g/dl (31.0-35.0); Mean Corpuscular Hemoglobin 26.8 pg (27.0-33.0); Mean Corpuscular Volume 89.1 fL (80.0-98.0); Mean Platelet Volume 10.3 fL (9.4-12.3); Platelet Count 286 X10*3/uL (160-400); Red Blood Count 4.51 X10*6/uL (4.20-5.50); Red Cell Distribution Width 16.2 % (11.0-16.0); White Blood Count 13.4 X10*3/uL (4.8-10.8)
[2023-07-04 06:36] LABS: Venous Blood Gas Refer to POC result
[2023-07-04 06:42] LABS: Procalcitonin 0.04 ng/mL
[2023-07-04 07:28] LABS: Glucose, Whole Blood 166 mg/dL (60-115)
[2023-07-04] MEDS: Albuterol/Iprat 2.5/0.5MG 3 ML AMPUL.NEB INHALE ×3 (08:11→20:11)
[2023-07-04] MEDS: Acetaminophen 325 MG TABLET 650 MG PO ×2 (08:17→20:43)
[2023-07-04] MEDS: Losartan Potassium 50 MG TABLET PO (08:18)
[2023-07-04] MEDS: Atorvastatin Calcium 20 MG TABLET PO (08:18)
[2023-07-04] MEDS: Cholecalciferol (Vitamin D3) 25 MCG TABLET 50 MCG PO (08:18)
[2023-07-04] MEDS: Gabapentin 400 MG CAPSULE 800 MG PO ×3 (08:18→20:42)
[2023-07-04] MEDS: Nicotine 14 MG PATCH.TD24 TRANSDERMA (08:18)
[2023-07-04] MEDS: Metoclopramide HCl 10 MG TABLET PO ×3 (08:18→16:27)
[2023-07-04] MEDS: Insulin Lispro 100 UNIT/ML 3 ML VIAL SUBCUT ×4 (08:19→20:42)
[2023-07-04] MEDS: 0.9 % Sodium Chloride Flush 3 ML SYRINGE IVFLUSH ×3 (08:20→20:43)
[2023-07-04] MEDS: Lidocaine 4 % Patch ADH..PATCH 1 PATCH TRANSDERMA (09:27)
--- NOTE | 2023-07-04 10:52 | HO.PM.IMPN ---
Subjective Subjective Date of Service: 07/04/23 Interval History: coughing, wheezing remains on HFNC though less FiO2 45% Physical Exam Vital Signs: Vital Signs: Last Vital Signs Temp 97.2 F 07/04/23 08:00 Pulse 99 07/04/23 08:00 Resp 20 07/04/23 08:11 BP 182/83 H 07/04/23 08:00 Pulse Ox 92 07/04/23 08:00 O2 Del Method High Flow Nasal C annula 07/04/23 08:00 O2 Flow Rate 45 07/04/23 08:00 FiO2 40 07/04/23 08:00 Oxygen Flow Rate 4 07/02/23 13:13 BMI result Body Mass Index 24.2 Gen: NAD HEENT: sclera anicteric, moist mucus membranes Neck: supple Lungs: diffuse expiratory wheezes, diminished air entry at bases, prolonged expiratory phase Heart: regular, no murmurs Abd: soft, non-tender, non-distended Ext: no edema Skin: warm/well-perfused Neuro: alert and oriented x3, no focal findings Psych: appropriate affect Objective Data Active Medications Acetaminophen (Acetaminophen 325 Mg Tablet) 650 mg PO Q6H PRN PRN Reason: Pain, Mild (Pain Scale 1-3) Last Admin: 07/04/23 08:17 Dose: 650 mg Documented By: LYNETTE Albuterol Sulfate (Albuterol Sulfate (0.083%) 2.5 Mg/3 Ml Vial.Neb) 2.5 mg INHALE Q2H PRN PRN Reason: Shortness of Breath/Wheezing Albuterol/Ipratropium (Albuterol/Iprat 2.5/0.5mg 3 Ml Ampul.Neb) 3 ml INHALE RQ4H WHILE AWAKE [facility] Last Admin: 07/04/23 08:11 Dose: 3 ml Documented By: DHRUV Amitriptyline HCl (Amitriptyline Hcl 50 Mg Tablet) 50 mg PO BEDTIME [facility] Last Admin: 07/03/23 21:21 Dose: 50 mg Documented By: EPI Aspirin (Aspirin Enteric Coated 81 Mg Tablet.) 81 mg PO BEDTIME [facility] Last Admin: 07/03/23 21:21 Dose: 81 mg Documented By: EPI Atorvastatin Calcium (Atorvastatin Calcium 20 Mg Tablet) 20 mg PO DAILY [facility] Last Admin: 07/04/23 08:18 Dose: 20 mg Documented By: LYNETTE Dextrose (Dextrose 50 % 25 Gm/50 Ml Syringe) 25 gm IVPUSH Q15M PRN; Protocol PRN Reason: per Hypoglycemia Standing Ord. Enoxaparin Sodium (Enoxaparin Sodium 40 Mg/0.4 Ml Syringe) 40 mg SUBCUT Q24H [facility] Last Admin: 07/03/23 17:00 Dose: 40 mg Documented By: LU Fluticasone Propionate (Fluticasone Propionate 250 Mcg Blst.W.Dev) 1 puff INHALE RBID [facility] Last Admin: 07/04/23 08:12 Dose: Not Given Documented By: DHRUV Non-Admin Reason: pharmacy called Gabapentin (Gabapentin 400 Mg Capsule) 800 mg PO TID [facility] Last Admin: 07/04/23 08:18 Dose: 800 mg Documented By: LYNETTE Glucose (Glucose Gel 15 Gm Gel..Gram.) 15 gm PO Q15M PRN; Protocol PRN Reason: per Hypoglycemia Standing Ord. Ceftriaxone Sodium 1 gm/ (Sodium Chloride) 50 mls @ 100 mls/hr IV Q24H [facility] Last Infusion: 07/03/23 16:16 Dose: Infused Documented By: LU Doxycycline Hyclate 100 mg/ (Sodium Chloride) 250 mls @ 166.67 mls/hr IV Q12H [facility] Last Infusion: 07/04/23 07:07 Dose: Infused Documented By: EPI Insulin Human Lispro (Insulin Lispro 100 Unit/Ml 3 Ml Vial) 0 unit SUBCUT QIDACHS [facility]; Protocol Last Admin: 07/04/23 08:19 Dose: 2 unit Documented By: LYNETTE Lidocaine (Lidocaine 4 % Patch Adh..Patch) 1 patch TRANSDERMA DAILY [facility]; Protocol Last Admin: 07/04/23 09:27 Dose: 1 patch Documented By: LYNETTE Losartan Potassium (Losartan Potassium 50 Mg Tablet) 50 mg PO DAILY [facility]; Protocol Last Admin: 07/04/23 08:18 Dose: 50 mg Documented By: LYNETTE Methylprednisolone Sodium Succinate (Methylprednisolone Sod Succ 40 Mg/Ml Vial) 40 mg IVPUSH Q12H [facility] Last Admin: 07/04/23 05:30 Dose: 40 mg Documented By: EPI Metoclopramide HCl (Metoclopramide Hcl 10 Mg Tablet) 10 mg PO TIDAC [facility] Last Admin: 07/04/23 08:18 Dose: 10 mg Documented By: LYNETTE Nicotine (Nicotine 14 Mg Patch.Td24) 14 mg TRANSDERMA DAILY [facility] Last Admin: 07/04/23 08:18 Dose: 14 mg Documented By: LYNETTE Non-Form Med( Linaclotide [Linzess ] 145 Mcg Capsule) 145 mcg PO DAILY [facility] Last Admin: 07/04/23 08:19 Dose: 145 mcg Documented By: LYNETTE Omeprazole (Omeprazole 20 Mg Capsule.Dr) 20 mg PO DAILY@0630 [facility] Last Admin: 07/04/23 05:30 Dose: 20 mg Documented By: EPI Sodium Chloride (0.9 % Sodium Chloride Flush 3 Ml Syringe) 3 ml IVFLUSH QSHIFT [facility] Last Admin: 07/04/23 08:20 Dose: 3 ml Documented By: LYNETTE Tiotropium [place] (Tiotropium [place] 2.5 Mcg 1 Puff/2.5 Mcg Mist.Inhal) 1 puff INHALE RDAILY [facility] Last Admin: 07/04/23 08:12 Dose: Not Given Documented By: DHRUV Non-Admin Reason: pharmacy called Vitamin D (Cholecalciferol (Vitamin D3) 25 Mcg Tablet) 50 mcg PO DAILY [facility] Last Admin: 07/04/23 08:18 Dose: 50 mcg Documented By: LYNETTE Labs 07/04/23 05:54 07/04/23 05:54 Labs: Laboratory Results - last 24 hr 07/03/23 07/03/23 07/03/23 11:57 14:40 16:31 MCV MCH MCHC RDW Plt Count MPV Absolute Nucleated RBC Nucleated RBC % (auto) VBG pH VBG pCO2 VBG pO2 VBG HCO3 VBG O2 Saturation VBG Base Excess Anion Gap Estim Creat Clear Calc Estimated GFR POC Glucose 193 H 126 H 137 H Random Glucose Calcium Procalcitonin 07/03/23 07/04/23 07/04/23 21:08 05:54 06:03 MCV 89.1 MCH 26.8 L MCHC 30.1 L RDW 16.2 H Plt Count 286 MPV 10.3 Absolute Nucleated RBC 0.000 Nucleated RBC % (auto) 0.0 VBG pH 7.47 H VBG pCO2 58 VBG pO2 98 VBG HCO3 43 H VBG O2 Saturation 97.0 VBG Base Excess 16.4 Anion Gap 14 Estim Creat Clear Calc 78.5 Estimated GFR > 60 POC Glucose 290 H Random Glucose 149 H Calcium 10.9 H Procalcitonin 0.04 07/04/23 07:22 MCV MCH MCHC RDW Plt Count MPV Absolute Nucleated RBC Nucleated RBC % (auto) VBG pH VBG pCO2 VBG pO2 VBG HCO3 VBG O2 Saturation VBG Base Excess Anion Gap Estim Creat Clear Calc Estimated GFR POC Glucose 166 H Random Glucose Calcium Procalcitonin Microbiology Microbiology Results: Microbiology 07/02/23 15:01 Blood Culture - Preliminary Blood - Venous No growth after 24 hours. 07/02/23 13:31 Blood Culture - Preliminary Blood - Venous No growth after 24 hours. Assessment and Plan (1) Pneumonia: Status: Acute Plan d3 63yo F with COPD on home O2, ongoing tobacco abuse, DM2 with gastroparesis, and HTN who presents with 2 weeks of dyspnea and productive cough and is found to be septic and hypoxic due to pneumonia sepsis and [id number] hypoxic resp failure due to pneumonia - d3 ceftriaxone + doxycycline, trend PCT, urinary antigens for Legionella + pneumococcus pending, follow BCx, SpCx, wean off HFNC to home dose of 2L O2 as tolerated COPD exac - continue IV methylprednisolone, standing/prn bronchodilators, controller inhalers HLD - atorvastatin HTN - losartan DM2 - hold OHGs, give maico-dose lispro gastroparesis - metoclopramide tobacco abuse - NRT VTE prophylaxis - LMWH dispo - TBD In my clinical judgment, the patient requires continued inpatient hospitalization for the following reasons: hypoxia, IV ABX Total time managing care of this patient today: 40 minutes. Quality Stroke Does the patient have a stroke diagnosis?: No VTE Prior VTE?: No VTE Risk Level:: Medical - moderate - high VTE Device Contraindication: N/A - Device Ordered VTE Drug Contraindication: N/A - Med Ordered
[2023-07-04 11:42] LABS: Glucose, Whole Blood 340 mg/dL (60-115)
[2023-07-04] MEDS: Albuterol Sulfate 2.5 MG, Albuterol/Iprat 2.5/0.5MG 3 ML 3 ML INHALE (12:09)
--- NOTE | 2023-07-04 12:55 | MHC.CM.PN ---
Addendum entered by Marla Sidhu 07/04/23 13:03: A referral has been sent to [facility]. Original Note: Patient lives with S.O. She uses home o2, provided by [employer]. She has [facility] services thru [facility] per S.O.. HCP is on file. PCP Cass Lopez. DP home resume it application architect services. S.O. will provide transport home.
[2023-07-04] MEDS: cefTRIAXone sodium 1 GM in 0.9 % Sodium Chloride 50 ML IV (16:27)
[2023-07-04] MEDS: Enoxaparin Sodium 40 MG/0.4 ML SYRINGE SUBCUT (16:27)
[2023-07-04 16:30] LABS: Glucose, Whole Blood 190 mg/dL (60-115)
[2023-07-04 20:27] LABS: Glucose, Whole Blood 338 mg/dL (60-115)
[2023-07-04] MEDS: Amitriptyline HCl 50 MG TABLET PO (20:42)
[2023-07-04] MEDS: Aspirin Enteric Coated 81 MG TABLET.DR PO (20:42)
[2023-07-05] VITALS (14 sets, daily range): BP systolic 126–188; BP diastolic 60–100; PULSE 81–98; RESP 16–20; TEMP 36.1–36.8; O2SAT 86–97
[2023-07-05] MEDS: Acetaminophen 325 MG TABLET 650 MG PO ×3 (02:25→16:55)
[2023-07-05] MEDS: Benzonatate 100 MG CAPSULE 200 MG PO ×4 (02:25→20:07)
[2023-07-05] MEDS: Omeprazole 20 MG CAPSULE.DR PO (06:36)
[2023-07-05] MEDS: methylPREDNISolone Sod Succ 40 MG/ML VIAL IVPUSH ×2 (06:37→16:57)
[2023-07-05] MEDS: Doxycycline Hyclate 100 MG in 0.9 % Sodium Chloride 250 ML 166.67 MG IV ×2 (06:37→16:56)
[2023-07-05] MEDS: Albuterol/Iprat 2.5/0.5MG 3 ML AMPUL.NEB INHALE ×4 (07:34→20:09)
[2023-07-05] MEDS: Tiotropium Bromide 2.5 mcg 1 PUFF/2.5 MCG MIST.INHAL INHALE (07:34)
[2023-07-05] MEDS: Fluticasone Propionate 250 MCG BLST.W.DEV 1 PUFF INHALE ×2 (07:34→20:09)
[2023-07-05 07:39] LABS: Glucose, Whole Blood 142 mg/dL (60-115)
[2023-07-05 08:02] LABS: Venous Blood Gas Refer to POC result
[2023-07-05 08:03] LABS: VBG HCO3 41 mmol/L (22-26); VBG pCO2 57 mmHg; VBG pH 7.46 (7.32-7.43); VBG pO2 52 mmHg
[2023-07-05] MEDS: Nicotine 14 MG PATCH.TD24 TRANSDERMA (08:13)
[2023-07-05] MEDS: Gabapentin 400 MG CAPSULE 800 MG PO ×3 (08:13→20:07)
[2023-07-05] MEDS: Atorvastatin Calcium 20 MG TABLET PO (08:14)
[2023-07-05] MEDS: Metoclopramide HCl 10 MG TABLET PO ×3 (08:14→16:55)
[2023-07-05] MEDS: Losartan Potassium 50 MG TABLET PO (08:14)
[2023-07-05] MEDS: Lidocaine 4 % Patch ADH..PATCH 1 PATCH TRANSDERMA (08:14)
[2023-07-05] MEDS: Cholecalciferol (Vitamin D3) 25 MCG TABLET 50 MCG PO (08:14)
[2023-07-05] MEDS: 0.9 % Sodium Chloride Flush 3 ML SYRINGE IVFLUSH ×3 (08:15→20:11)
[2023-07-05 08:58] LABS: Anion Gap 12 (12-20); Blood Urea Nitrogen 8 mg/dL (9-16); Calcium 10.1 mg/dL (8.4-10.2); Carbon Dioxide 33 mmol/L (22-29); Chloride 99 mmol/L (96-108); Creatinine Clr Calc Pharmacy 81.7; Estimated Glomerular Filt Rate > 60; Glucose Random 143 mg/dL (60-115); Potassium 3.7 mmol/L (3.3-5.1); Sodium 140 mmol/L (135-145)
--- NOTE | 2023-07-05 11:27 | HO.PM.IMPN ---
Subjective Subjective Date of Service: 07/05/23 Interval History: dyspnea slowly improving chest wall pain from coughing still on HFNC, fiO2 40%, 30 Lpm Review of Systems Review of Systems: Yes all other systems are reviewed and are negative Physical Exam Vital Signs: Vital Signs: Last Vital Signs Temp 97.3 F 07/05/23 11:14 Pulse 89 07/05/23 11:14 Resp 17 07/05/23 11:14 BP 180/70 H 07/05/23 11:14 Pulse Ox 92 07/05/23 11:14 O2 Del Method High Flow Nasal C annula 07/05/23 11:14 O2 Flow Rate 30 07/05/23 11:14 FiO2 40 07/05/23 11:14 = Gen: NAD HEENT: sclera anicteric, moist mucus membranes Neck: supple Lungs: diffuse expiratory wheezes, diminished air entry at bases, prolonged expiratory phase Heart: regular, no murmurs Abd: soft, non-tender, non-distended Ext: no edema Skin: warm/well-perfused Neuro: alert and oriented x3, no focal findings Psych: appropriate affect Objective Data Active Medications Acetaminophen (Acetaminophen 325 Mg Tablet) 650 mg PO Q6H PRN PRN Reason: Pain, Mild (Pain Scale 1-3) Last Admin: 07/05/23 08:14 Dose: 650 mg Documented By: LU Albuterol Sulfate (Albuterol Sulfate (0.083%) 2.5 Mg/3 Ml Vial.Neb) 2.5 mg INHALE Q2H PRN PRN Reason: Shortness of Breath/Wheezing Albuterol/Ipratropium (Albuterol/Iprat 2.5/0.5mg 3 Ml Ampul.Neb) 3 ml INHALE RQ4H WHILE AWAKE [facility] Last Admin: 07/05/23 07:34 Dose: 3 ml Documented By: MIGUELITO Amitriptyline HCl (Amitriptyline Hcl 50 Mg Tablet) 50 mg PO BEDTIME [facility] Last Admin: 07/04/23 20:42 Dose: 50 mg Documented By: DAWNA Aspirin (Aspirin Enteric Coated 81 Mg Tablet.) 81 mg PO BEDTIME [facility] Last Admin: 07/04/23 20:42 Dose: 81 mg Documented By: DAWNA Atorvastatin Calcium (Atorvastatin Calcium 20 Mg Tablet) 20 mg PO DAILY [facility] Last Admin: 07/05/23 08:14 Dose: 20 mg Documented By: LU Benzonatate (Benzonatate 100 Mg Capsule) 200 mg PO TID PRN PRN Reason: Cough Last Admin: 07/05/23 08:14 Dose: 200 mg Documented By: LU Dextrose (Dextrose 50 % 25 Gm/50 Ml Syringe) 25 gm IVPUSH Q15M PRN; Protocol PRN Reason: per Hypoglycemia Standing Ord. Enoxaparin Sodium (Enoxaparin Sodium 40 Mg/0.4 Ml Syringe) 40 mg SUBCUT Q24H [facility] Last Admin: 07/04/23 16:27 Dose: 40 mg Documented By: LYNETTE Fluticasone Propionate (Fluticasone Propionate 250 Mcg Blst.W.Dev) 1 puff INHALE RBID [facility] Last Admin: 07/05/23 07:34 Dose: 1 puff Documented By: MIGUELITO Gabapentin (Gabapentin 400 Mg Capsule) 800 mg PO TID [facility] Last Admin: 07/05/23 08:13 Dose: 800 mg Documented By: LU Glucose (Glucose Gel 15 Gm Gel..Gram.) 15 gm PO Q15M PRN; Protocol PRN Reason: per Hypoglycemia Standing Ord. Ceftriaxone Sodium 1 gm/ (Sodium Chloride) 50 mls @ 100 mls/hr IV Q24H [facility] Last Infusion: 07/04/23 17:00 Dose: Infused Documented By: LYNETTE Doxycycline Hyclate 100 mg/ (Sodium Chloride) 250 mls @ 166.67 mls/hr IV Q12H [facility] Last Infusion: 07/05/23 11:17 Dose: Infused Documented By: LYNETTE Insulin Human Lispro (Insulin Lispro 100 Unit/Ml 3 Ml Vial) 0 unit SUBCUT QIDACHS [facility]; Protocol Last Admin: 07/05/23 07:54 Dose: Not Given Documented By: LU Non-Admin Reason: No Insulin Coverage Lidocaine (Lidocaine 4 % Patch Adh..Patch) 1 patch TRANSDERMA DAILY [facility]; Protocol Last Admin: 07/05/23 08:14 Dose: 1 patch Documented By: LU Losartan Potassium (Losartan Potassium 50 Mg Tablet) 50 mg PO DAILY [facility]; Protocol Last Admin: 07/05/23 08:14 Dose: 50 mg Documented By: LU Methylprednisolone Sodium Succinate (Methylprednisolone Sod Succ 40 Mg/Ml Vial) 40 mg IVPUSH Q12H [facility] Last Admin: 07/05/23 06:37 Dose: 40 mg Documented By: DAWNA Metoclopramide HCl (Metoclopramide Hcl 10 Mg Tablet) 10 mg PO TIDAC [facility] Last Admin: 07/05/23 08:14 Dose: 10 mg Documented By: LU Nicotine (Nicotine 14 Mg Patch.Td24) 14 mg TRANSDERMA DAILY [facility] Last Admin: 07/05/23 08:13 Dose: 14 mg Documented By: LU Non-Form Med( Linaclotide [Linzess ] 145 Mcg Capsule) 145 mcg PO DAILY [facility] Last Admin: 07/05/23 08:16 Dose: 145 mcg Documented By: LU Omeprazole (Omeprazole 20 Mg Capsule.Dr) 20 mg PO DAILY@0630 [facility] Last Admin: 07/05/23 06:36 Dose: 20 mg Documented By: DAWNA Sodium Chloride (0.9 % Sodium Chloride Flush 3 Ml Syringe) 3 ml IVFLUSH QSHIFT [facility] Last Admin: 07/05/23 08:15 Dose: 3 ml Documented By: LU Tiotropium [place] (Tiotropium [place] 2.5 Mcg 1 Puff/2.5 Mcg Mist.Inhal) 1 puff INHALE RDAILY [facility] Last Admin: 07/05/23 07:34 Dose: 1 puff Documented By: MIGUELITO Vitamin D (Cholecalciferol (Vitamin D3) 25 Mcg Tablet) 50 mcg PO DAILY [facility] Last Admin: 07/05/23 08:14 Dose: 50 mcg Documented By: LU Labs 07/04/23 05:54 07/05/23 07:43 Labs: Laboratory Results - last 24 hr 07/04/23 07/04/23 07/04/23 11:26 16:10 20:22 Hold Purple Top VBG pH VBG pCO2 VBG pO2 VBG HCO3 VBG O2 Saturation VBG Base Excess Anion Gap Estim Creat Clear Calc Estimated GFR POC Glucose 340 H 190 H 338 H Random Glucose Calcium 07/05/23 07/05/23 07/05/23 07:24 07:43 07:56 Hold Purple Top SEE NOTE VBG pH 7.46 H VBG pCO2 57 VBG pO2 52 VBG HCO3 41 H VBG O2 Saturation 81.0 VBG Base Excess 15.0 Anion Gap 12 Estim Creat Clear Calc 81.7 Estimated GFR > 60 POC Glucose 142 H Random Glucose 143 H Calcium 10.1 D Microbiology Microbiology Results: Microbiology 07/04/23 09:33 Gram Stain - Final Sputum - Expectorated Sputum Culture - Preliminary Culture in progress. 07/02/23 15:01 Blood Culture - Preliminary Blood - Venous No growth after 48 hours. 07/02/23 13:31 Blood Culture - Preliminary Blood - Venous No growth after 48 hours. Assessment and Plan (1) Pneumonia: Status: Acute Plan d4 63yo F with COPD on home O2, ongoing tobacco abuse, DM2 with gastroparesis, and HTN who presents with 2 weeks of dyspnea and productive cough and is found to be septic and hypoxic due to pneumonia sepsis and [id number] hypoxic resp failure due to atypical pneumonia - d4 ceftriaxone + doxycycline, PCT low, urinary antigens for Legionella + pneumococcus pending, BCx negative @ 48h, SpCx pending, wean off HFNC to home dose of 2L O2 as tolerated COPD exac - continue IV methylprednisolone, standing/prn bronchodilators, controller inhalers HLD - atorvastatin HTN - losartan DM2 with steroid-induced hyperglycemia - hold OHGs; increase correction-dose lispro gastroparesis - metoclopramide tobacco abuse - NRT VTE prophylaxis - LMWH dispo - TBD, PT eval once off HFNC In my clinical judgment, the patient requires continued inpatient hospitalization for the following reasons: hypoxia, IV ABX Total time managing care of this patient today: 40 minutes. Quality Stroke Does the patient have a stroke diagnosis?: No VTE Prior VTE?: No VTE Risk Level:: Medical - moderate - high VTE Device Contraindication: N/A - Device Ordered VTE Drug Contraindication: N/A - Med Ordered
[2023-07-05 11:29] LABS: Glucose, Whole Blood 418 mg/dL (60-115)
[2023-07-05] MEDS: Insulin Lispro 100 UNIT/ML 3 ML VIAL SUBCUT ×3 (11:38→21:30)
[2023-07-05] MEDS: cefTRIAXone sodium 1 GM in 0.9 % Sodium Chloride 50 ML IV (14:20)
--- NOTE | 2023-07-05 15:13 | MHC.CM.PN ---
EMR reviewed and per MD rounds, pt is not medically cleared for D/C and remains on Hi-flow O2. CM will continue to follow.
[2023-07-05 16:42] LABS: Glucose, Whole Blood 274 mg/dL (60-115)
[2023-07-05] MEDS: Enoxaparin Sodium 40 MG/0.4 ML SYRINGE SUBCUT (16:57)
[2023-07-05] MEDS: Labetalol HCL 100 MG/20 ML VIAL 10 MG IVPUSH (20:05)
[2023-07-05] MEDS: Amitriptyline HCl 50 MG TABLET PO (20:07)
[2023-07-05] MEDS: Aspirin Enteric Coated 81 MG TABLET.DR PO (20:07)
[2023-07-05 21:08] LABS: Glucose, Whole Blood 239 mg/dL (60-115)
[2023-07-06] VITALS (10 sets, daily range): BP systolic 148–188; BP diastolic 56–86; PULSE 74–90; RESP 18–20; TEMP 36.2–36.5; O2SAT 93–96
[2023-07-06] MEDS: methylPREDNISolone Sod Succ 40 MG/ML VIAL IVPUSH ×2 (06:13→16:45)
[2023-07-06] MEDS: Omeprazole 20 MG CAPSULE.DR PO (06:13)
[2023-07-06] MEDS: Doxycycline Hyclate 100 MG in 0.9 % Sodium Chloride 250 ML 166.67 MG IV ×2 (06:13→16:46)
[2023-07-06 07:16] LABS: Glucose, Whole Blood 150 mg/dL (60-115)
[2023-07-06] MEDS: Fluticasone Propionate 250 MCG BLST.W.DEV 1 PUFF INHALE ×2 (07:45→19:00)
[2023-07-06] MEDS: Albuterol/Iprat 2.5/0.5MG 3 ML AMPUL.NEB INHALE ×4 (07:45→19:01)
[2023-07-06] MEDS: Tiotropium Bromide 2.5 mcg 1 PUFF/2.5 MCG MIST.INHAL INHALE (07:45)
[2023-07-06 08:00] LABS: VBG Base Excess 13.5 mmol/L; VBG HCO3 39 mmol/L (22-26); VBG pCO2 52 mmHg; VBG pH 7.48 (7.32-7.43); VBG pO2 100 mmHg
[2023-07-06 08:00] LABS: Venous Blood Gas Refer to POC result
[2023-07-06 08:12] LABS: White Blood Count 14.5 X10*3/uL (4.8-10.8)
[2023-07-06 08:13] LABS: Hematocrit 42.5 % (37.0-47.0); Mean Corpuscular HGB Conc 30.6 g/dl (31.0-35.0); Mean Corpuscular Hemoglobin 26.1 pg (27.0-33.0); Mean Corpuscular Volume 85.3 fL (80.0-98.0); Mean Platelet Volume 9.5 fL (9.4-12.3); Platelet Count 281 X10*3/uL (160-400); Red Blood Count 4.98 X10*6/uL (4.20-5.50); Red Cell Distribution Width 15.9 % (11.0-16.0); White Blood Count 14.8 X10*3/uL (4.8-10.8)
[2023-07-06 08:24] LABS: Anion Gap 12 (12-20); Blood Urea Nitrogen 11 mg/dL (9-16); Calcium 10.1 mg/dL (8.4-10.2); Carbon Dioxide 34 mmol/L (22-29); Chloride 98 mmol/L (96-108); Creatinine Clr Calc Pharmacy 85.2; Estimated Glomerular Filt Rate > 60; Glucose Random 168 mg/dL (60-115); Sodium 140 mmol/L (135-145)
[2023-07-06] MEDS: Atorvastatin Calcium 20 MG TABLET PO (08:33)
[2023-07-06] MEDS: Losartan Potassium 50 MG TABLET PO (08:33)
[2023-07-06] MEDS: Acetaminophen 325 MG TABLET 650 MG PO ×2 (08:33→16:45)
[2023-07-06] MEDS: Metoclopramide HCl 10 MG TABLET PO ×3 (08:33→16:45)
[2023-07-06] MEDS: Gabapentin 400 MG CAPSULE 800 MG PO ×3 (08:34→20:20)
[2023-07-06] MEDS: Nicotine 14 MG PATCH.TD24 TRANSDERMA (08:34)
[2023-07-06] MEDS: Benzonatate 100 MG CAPSULE 200 MG PO ×2 (08:34→20:20)
[2023-07-06] MEDS: Lidocaine 4 % Patch ADH..PATCH 1 PATCH TRANSDERMA (08:34)
[2023-07-06] MEDS: Cholecalciferol (Vitamin D3) 25 MCG TABLET 50 MCG PO (08:34)
[2023-07-06] MEDS: 0.9 % Sodium Chloride Flush 3 ML SYRINGE IVFLUSH ×3 (08:35→20:22)
[2023-07-06] MEDS: Insulin Lispro 100 UNIT/ML 3 ML VIAL SUBCUT ×4 (08:35→21:22)
--- NOTE | 2023-07-06 09:50 | P.PNIM_ITS ---
Subjective Subjective Date of Service: 07/06/23 Interval History: desatted to 70s on walking to bathroom on room air, recovered once back on oxymask 3L and resting Physical Exam 2 Vital Signs: Vital Signs: Last Vital Signs Temp 97.2 F 07/06/23 07:38 Pulse 74 07/06/23 07:46 Resp 18 07/06/23 07:46 BP 188/86 H 07/06/23 07:38 Pulse Ox 96 07/06/23 07:38 O2 Del Method Oxymask 07/06/23 07:38 O2 Flow Rate 3 07/06/23 07:38 FiO2 40 07/05/23 11:14 Oxygen Flow Rate 4 07/02/23 13:13 BMI result Body Mass Index 24.2 Gen: NAD HEENT: sclera anicteric, moist mucus membranes Neck: supple Lungs: diffuse expiratory wheezes, diminished air entry at bases, prolonged expiratory phase Heart: regular, no murmurs Abd: soft, non-tender, non-distended Ext: no edema Skin: warm/well-perfused Neuro: alert and oriented x3, no focal findings Psych: appropriate affect Objective Data Active Medications Acetaminophen (Acetaminophen 325 Mg Tablet) 650 mg PO Q6H PRN PRN Reason: Pain, Mild (Pain Scale 1-3) Last Admin: 07/06/23 08:33 Dose: 650 mg Documented By: LU Albuterol Sulfate (Albuterol Sulfate (0.083%) 2.5 Mg/3 Ml Vial.Neb) 2.5 mg INHALE Q2H PRN PRN Reason: Shortness of Breath/Wheezing Albuterol/Ipratropium (Albuterol/Iprat 2.5/0.5mg 3 Ml Ampul.Neb) 3 ml INHALE RQ4H WHILE AWAKE [facility] Last Admin: 07/06/23 07:45 Dose: 3 ml Documented By: BIB Amitriptyline HCl (Amitriptyline Hcl 50 Mg Tablet) 50 mg PO BEDTIME [facility] Last Admin: 07/05/23 20:07 Dose: 50 mg Documented By: DAWNA Amlodipine Besylate (Amlodipine Besylate 5 Mg Tablet) 5 mg PO DAILY [facility]; Protocol Aspirin (Aspirin Enteric Coated 81 Mg Tablet.) 81 mg PO BEDTIME [facility] Last Admin: 07/05/23 20:07 Dose: 81 mg Documented By: DAWNA Atorvastatin Calcium (Atorvastatin Calcium 20 Mg Tablet) 20 mg PO DAILY [facility] Last Admin: 07/06/23 08:33 Dose: 20 mg Documented By: LU Benzonatate (Benzonatate 100 Mg Capsule) 200 mg PO TID PRN PRN Reason: Cough Last Admin: 07/06/23 08:34 Dose: 200 mg Documented By: LU Dextrose (Dextrose 50 % 25 Gm/50 Ml Syringe) 25 gm IVPUSH Q15M PRN; Protocol PRN Reason: per Hypoglycemia Standing Ord. Enoxaparin Sodium (Enoxaparin Sodium 40 Mg/0.4 Ml Syringe) 40 mg SUBCUT Q24H [facility] Last Admin: 07/05/23 16:57 Dose: 40 mg Documented By: LYNETTE Fluticasone Propionate (Fluticasone Propionate 250 Mcg Blst.W.Dev) 1 puff INHALE RBID [facility] Last Admin: 07/06/23 07:45 Dose: 1 puff Documented By: BIB Gabapentin (Gabapentin 400 Mg Capsule) 800 mg PO TID [facility] Last Admin: 07/06/23 08:34 Dose: 800 mg Documented By: LU Glucose (Glucose Gel 15 Gm Gel..Gram.) 15 gm PO Q15M PRN; Protocol PRN Reason: per Hypoglycemia Standing Ord. Ceftriaxone Sodium 1 gm/ (Sodium Chloride) 50 mls @ 100 mls/hr IV Q24H [facility] Last Infusion: 07/05/23 15:53 Dose: Infused Documented By: LU Doxycycline Hyclate 100 mg/ (Sodium Chloride) 250 mls @ 166.67 mls/hr IV Q12H [facility] Last Infusion: 07/06/23 08:35 Dose: Infused Documented By: LU Insulin Human Lispro (Insulin Lispro 100 Unit/Ml 3 Ml Vial) 0 unit SUBCUT QIDACHS [facility]; Protocol Last Admin: 07/06/23 08:35 Dose: 2 unit Documented By: LU Lidocaine (Lidocaine 4 % Patch Adh..Patch) 1 patch TRANSDERMA DAILY [facility]; Protocol Last Admin: 07/06/23 08:34 Dose: 1 patch Documented By: LU Losartan Potassium (Losartan Potassium 50 Mg Tablet) 50 mg PO DAILY [facility]; Protocol Last Admin: 07/06/23 08:33 Dose: 50 mg Documented By: LU Methylprednisolone Sodium Succinate (Methylprednisolone Sod Succ 40 Mg/Ml Vial) 40 mg IVPUSH Q12H [facility] Last Admin: 07/06/23 06:13 Dose: 40 mg Documented By: DAWNA Metoclopramide HCl (Metoclopramide Hcl 10 Mg Tablet) 10 mg PO TIDAC [facility] Last Admin: 07/06/23 08:33 Dose: 10 mg Documented By: LU Nicotine (Nicotine 14 Mg Patch.Td24) 14 mg TRANSDERMA DAILY [facility] Last Admin: 07/06/23 08:34 Dose: 14 mg Documented By: LU Non-Form Med( Linaclotide [Linzess ] 145 Mcg Capsule) 145 mcg PO DAILY [facility] Last Admin: 07/06/23 08:33 Dose: 145 mcg Documented By: LU Omeprazole (Omeprazole 20 Mg Capsule.Dr) 20 mg PO DAILY@0630 [facility] Last Admin: 07/06/23 06:13 Dose: 20 mg Documented By: DAWNA Sodium Chloride (0.9 % Sodium Chloride Flush 3 Ml Syringe) 3 ml IVFLUSH QSHIFT [facility] Last Admin: 07/06/23 08:35 Dose: 3 ml Documented By: LU Tiotropium [place] (Tiotropium [place] 2.5 Mcg 1 Puff/2.5 Mcg Mist.Inhal) 1 puff INHALE RDAILY [facility] Last Admin: 07/06/23 07:45 Dose: 1 puff Documented By: BIB Vitamin D (Cholecalciferol (Vitamin D3) 25 Mcg Tablet) 50 mcg PO DAILY [facility] Last Admin: 07/06/23 08:34 Dose: 50 mcg Documented By: LU Labs 07/06/23 07:58 07/06/23 07:07 Labs: Laboratory Results - last 24 hr 07/05/23 07/05/23 07/05/23 11:13 16:06 20:48 MCV MCH MCHC RDW Plt Count MPV Absolute Nucleated RBC Nucleated RBC % (auto) VBG pH VBG pCO2 VBG pO2 VBG HCO3 VBG O2 Saturation VBG Base Excess Anion Gap Estim Creat Clear Calc Estimated GFR POC Glucose 418 H* 274 H 239 H Random Glucose Calcium 07/06/23 07/06/23 07/06/23 07:01 07:07 07:12 MCV 85.3 MCH 26.1 L MCHC 30.6 L RDW 15.9 Plt Count 281 MPV 9.5 Absolute Nucleated RBC 0.000 Nucleated RBC % (auto) 0.0 VBG pH VBG pCO2 VBG pO2 VBG HCO3 VBG O2 Saturation VBG Base Excess Anion Gap 12 Estim Creat Clear Calc 85.2 Estimated GFR > 60 POC Glucose 150 H Random Glucose 168 H Calcium 10.1 07/06/23 07:55 MCV MCH MCHC RDW Plt Count MPV Absolute Nucleated RBC Nucleated RBC % (auto) VBG pH 7.48 H VBG pCO2 52 VBG pO2 100 VBG HCO3 39 H VBG O2 Saturation 98.0 VBG Base Excess 13.5 Anion Gap Estim Creat Clear Calc Estimated GFR POC Glucose Random Glucose Calcium Microbiology Microbiology Results: Microbiology 07/04/23 09:33 Gram Stain - Final Sputum - Expectorated Sputum Culture - Preliminary Culture in progress. Assessment and Plan (1) Pneumonia: Status: Acute Plan d5 63yo F with chronic hypoxic respiratory failure due to COPD on 2L home O2, ongoing tobacco abuse, DM2 with gastroparesis, and HTN who presented with 2 weeks of dyspnea and productive cough and found to be septic and hypoxic due to pneumonia sepsis and edege-hl-rwjorfe hypoxic resp failure due to atypical pneumonia complicated by copd with acute decompensation - d5 ceftriaxone + doxycycline, PCT low, urinary antigens for Legionella + pneumococcus pending, BCx negative @ 48h, wean o2 iv steroids, bronchodilators controller inhalers HLD atorvastatin HTN - uncontrolled losartan adding amlodipine 5mg daily DM2 with steroid-induced hyperglycemia -hold OHGs; increased correction-dose lispro better controlled gastroparesis - metoclopramide tobacco abuse - NRT VTE prophylaxis - LMWH dispo - TBD, PT eval In my clinical judgment, the patient requires continued inpatient hospitalization for the following reasons: hypoxia, IV ABX Total time managing care of this patient today: 40 minutes. Quality Stroke Does the patient have a stroke diagnosis?: No VTE Prior VTE?: No VTE Risk Level:: Medical - moderate - high VTE Device Contraindication: N/A - Device Ordered VTE Drug Contraindication: N/A - Med Ordered
[2023-07-06] MEDS: amLODIPine Besylate 5 MG TABLET PO (10:35)
[2023-07-06 11:36] LABS: Glucose, Whole Blood 315 mg/dL (60-115)
[2023-07-06] MEDS: cefTRIAXone sodium 1 GM in 0.9 % Sodium Chloride 50 ML IV (14:49)
[2023-07-06 16:05] LABS: Glucose, Whole Blood 233 mg/dL (60-115)
[2023-07-06] MEDS: Enoxaparin Sodium 40 MG/0.4 ML SYRINGE SUBCUT (16:45)
[2023-07-06] MEDS: Aspirin Enteric Coated 81 MG TABLET.DR PO (20:21)
[2023-07-06] MEDS: Amitriptyline HCl 50 MG TABLET PO (20:26)
[2023-07-06 20:34] LABS: Glucose, Whole Blood 377 mg/dL (60-115)
[2023-07-06 21:37] LABS: Strep Pneumo Ag urine Not Detected (Not Detected)
[2023-07-07] VITALS (13 sets, daily range): BP systolic 149–181; BP diastolic 61–90; PULSE 50–99; RESP 18–20; TEMP 36.2–36.6; O2SAT 91–99
[2023-07-07] MEDS: Acetaminophen 325 MG TABLET 650 MG PO ×2 (03:24→20:14)
[2023-07-07] MEDS: Omeprazole 20 MG CAPSULE.DR PO (05:44)
[2023-07-07] MEDS: methylPREDNISolone Sod Succ 40 MG/ML VIAL IVPUSH ×2 (05:44→17:59)
[2023-07-07] MEDS: Doxycycline Hyclate 100 MG in 0.9 % Sodium Chloride 250 ML 166.67 MG IV ×2 (05:46→17:59)
[2023-07-07 07:27] LABS: Glucose, Whole Blood 173 mg/dL (60-115)
[2023-07-07] MEDS: Tiotropium Bromide 2.5 mcg 1 PUFF/2.5 MCG MIST.INHAL INHALE (07:33)
[2023-07-07] MEDS: Albuterol/Iprat 2.5/0.5MG 3 ML AMPUL.NEB INHALE ×4 (07:33→18:53)
[2023-07-07] MEDS: Fluticasone Propionate 250 MCG BLST.W.DEV 1 PUFF INHALE ×2 (07:33→18:53)
[2023-07-07] MEDS: Insulin Lispro 100 UNIT/ML 3 ML VIAL SUBCUT ×4 (07:51→20:20)
[2023-07-07] MEDS: Gabapentin 400 MG CAPSULE 800 MG PO ×3 (07:52→20:15)
[2023-07-07] MEDS: 0.9 % Sodium Chloride Flush 3 ML SYRINGE IVFLUSH ×3 (07:52→20:17)
[2023-07-07] MEDS: Atorvastatin Calcium 20 MG TABLET PO (07:52)
[2023-07-07] MEDS: Losartan Potassium 50 MG TABLET PO (07:52)
[2023-07-07] MEDS: amLODIPine Besylate 5 MG TABLET PO (07:52)
[2023-07-07] MEDS: Metoclopramide HCl 10 MG TABLET PO ×3 (07:52→16:51)
[2023-07-07] MEDS: Cholecalciferol (Vitamin D3) 25 MCG TABLET 50 MCG PO (07:52)
[2023-07-07] MEDS: Lidocaine 4 % Patch ADH..PATCH 1 PATCH TRANSDERMA (07:53)
[2023-07-07] MEDS: Nicotine 14 MG PATCH.TD24 TRANSDERMA (07:53)
[2023-07-07 07:55] LABS: Hemoglobin 13.8 g/dl (12.0-16.0); Mean Corpuscular HGB Conc 30.7 g/dl (31.0-35.0); Mean Corpuscular Hemoglobin 26.7 pg (27.0-33.0); Mean Platelet Volume 9.8 fL (9.4-12.3); Platelet Count 313 X10*3/uL (160-400); Red Blood Count 5.17 X10*6/uL (4.20-5.50); White Blood Count 15.7 X10*3/uL (4.8-10.8)
[2023-07-07 08:07] LABS: Anion Gap 12 (12-20); Blood Urea Nitrogen 12 mg/dL (9-16); Calcium 10.2 mg/dL (8.4-10.2); Carbon Dioxide 32 mmol/L (22-29); Chloride 99 mmol/L (96-108); Creatinine Clr Calc Pharmacy 78.5; Estimated Glomerular Filt Rate > 60; Glucose Fasting 190 mg/dL (60-99); Potassium 4.2 mmol/L (3.3-5.1); Sodium 139 mmol/L (135-145)
--- NOTE | 2023-07-07 10:24 | MHC.CM.PN ---
Per ROUNDS discussion, Patient is not yet medically cleared for dc (still weaning O2); PT is recommending home with services and CM will follow.
--- NOTE | 2023-07-07 11:06 | HO.PM.IMPN ---
Subjective Subjective Date of Service: 07/07/23 Interval History: sob Physical Exam Vital Signs: Vital Signs: Last Vital Signs Temp 97.7 F 07/07/23 07:46 Pulse 88 07/07/23 11:00 Resp 18 07/07/23 11:00 BP 181/81 H 07/07/23 07:46 Pulse Ox 97 07/07/23 07:46 O2 Del Method Oxymask 07/07/23 03:24 O2 Flow Rate 4 07/07/23 03:24 FiO2 40 07/05/23 11:14 Oxygen Flow Rate 4 07/02/23 13:13 BMI result Body Mass Index 24.2 Gen: NAD HEENT: sclera anicteric, moist mucus membranes Neck: supple Lungs: diffuse expiratory wheezes, diminished air entry at bases, prolonged expiratory phase Heart: regular, no murmurs Abd: soft, non-tender, non-distended Ext: no edema Skin: warm/well-perfused Neuro: alert and oriented x3, no focal findings Psych: appropriate affect Objective Data Active Medications Acetaminophen (Acetaminophen 325 Mg Tablet) 650 mg PO Q6H PRN PRN Reason: Pain, Mild (Pain Scale 1-3) Last Admin: 07/07/23 03:24 Dose: 650 mg Documented By: MITCHELL Albuterol Sulfate (Albuterol Sulfate (0.083%) 2.5 Mg/3 Ml Vial.Neb) 2.5 mg INHALE Q2H PRN PRN Reason: Shortness of Breath/Wheezing Albuterol/Ipratropium (Albuterol/Iprat 2.5/0.5mg 3 Ml Ampul.Neb) 3 ml INHALE RQ4H WHILE AWAKE [facility] Last Admin: 07/07/23 11:00 Dose: 3 ml Documented By: BIB Amitriptyline HCl (Amitriptyline Hcl 50 Mg Tablet) 50 mg PO BEDTIME [facility] Last Admin: 07/06/23 20:26 Dose: 50 mg Documented By: MITCHELL Amlodipine Besylate (Amlodipine Besylate 5 Mg Tablet) 5 mg PO DAILY [facility]; Protocol Last Admin: 07/07/23 07:52 Dose: 5 mg Documented By: MIKAELA Aspirin (Aspirin Enteric Coated 81 Mg Tablet.) 81 mg PO BEDTIME [facility] Last Admin: 07/06/23 20:21 Dose: 81 mg Documented By: MITCHELL Atorvastatin Calcium (Atorvastatin Calcium 20 Mg Tablet) 20 mg PO DAILY [facility] Last Admin: 07/07/23 07:52 Dose: 20 mg Documented By: MIKAELA Benzonatate (Benzonatate 100 Mg Capsule) 200 mg PO TID PRN PRN Reason: Cough Last Admin: 07/06/23 20:20 Dose: 200 mg Documented By: MITCHELL Dextrose (Dextrose 50 % 25 Gm/50 Ml Syringe) 25 gm IVPUSH Q15M PRN; Protocol PRN Reason: per Hypoglycemia Standing Ord. Enoxaparin Sodium (Enoxaparin Sodium 40 Mg/0.4 Ml Syringe) 40 mg SUBCUT Q24H [facility] Last Admin: 07/06/23 16:45 Dose: 40 mg Documented By: LYNETTE Fluticasone Propionate (Fluticasone Propionate 250 Mcg Blst.W.Dev) 1 puff INHALE RBID [facility] Last Admin: 07/07/23 07:33 Dose: 1 puff Documented By: BIB Gabapentin (Gabapentin 400 Mg Capsule) 800 mg PO TID [facility] Last Admin: 07/07/23 07:52 Dose: 800 mg Documented By: MIKAELA Glucose (Glucose Gel 15 Gm Gel..Gram.) 15 gm PO Q15M PRN; Protocol PRN Reason: per Hypoglycemia Standing Ord. Ceftriaxone Sodium 1 gm/ (Sodium Chloride) 50 mls @ 100 mls/hr IV Q24H [facility] Last Infusion: 07/06/23 15:21 Dose: Infused Documented By: LU Doxycycline Hyclate 100 mg/ (Sodium Chloride) 250 mls @ 166.67 mls/hr IV Q12H [facility] Last Infusion: 07/07/23 07:28 Dose: Infused Documented By: MIKAELA Insulin Human Lispro (Insulin Lispro 100 Unit/Ml 3 Ml Vial) 0 unit SUBCUT QIDACHS [facility]; Protocol Last Admin: 07/07/23 07:51 Dose: 4 unit Documented By: MIKAELA Lidocaine (Lidocaine 4 % Patch Adh..Patch) 1 patch TRANSDERMA DAILY [facility]; Protocol Last Admin: 07/07/23 07:53 Dose: 1 patch Documented By: MIKAELA Losartan Potassium (Losartan Potassium 50 Mg Tablet) 50 mg PO DAILY [facility]; Protocol Last Admin: 07/07/23 07:52 Dose: 50 mg Documented By: MIKAELA Methylprednisolone Sodium Succinate (Methylprednisolone Sod Succ 40 Mg/Ml Vial) 40 mg IVPUSH Q12H [facility] Last Admin: 07/07/23 05:44 Dose: 40 mg Documented By: MITCHELL Metoclopramide HCl (Metoclopramide Hcl 10 Mg Tablet) 10 mg PO TIDAC [facility] Last Admin: 07/07/23 07:52 Dose: 10 mg Documented By: MIKAELA Nicotine (Nicotine 14 Mg Patch.Td24) 14 mg TRANSDERMA DAILY [facility] Last Admin: 07/07/23 07:53 Dose: 14 mg Documented By: MIKAELA Non-Form Med( Linaclotide [Linzess ] 145 Mcg Capsule) 145 mcg PO DAILY [facility] Last Admin: 07/07/23 07:58 Dose: 145 mcg Documented By: MIKAELA Omeprazole (Omeprazole 20 Mg Capsule.Dr) 20 mg PO DAILY@0630 [facility] Last Admin: 07/07/23 05:44 Dose: 20 mg Documented By: MITCHELL Sodium Chloride (0.9 % Sodium Chloride Flush 3 Ml Syringe) 3 ml IVFLUSH QSHIFT [facility] Last Admin: 07/07/23 07:52 Dose: 3 ml Documented By: MIKAELA Tiotropium [place] (Tiotropium [place] 2.5 Mcg 1 Puff/2.5 Mcg Mist.Inhal) 1 puff INHALE RDAILY [facility] Last Admin: 07/07/23 07:33 Dose: 1 puff Documented By: BIB Vitamin D (Cholecalciferol (Vitamin D3) 25 Mcg Tablet) 50 mcg PO DAILY [facility] Last Admin: 07/07/23 07:52 Dose: 50 mcg Documented By: MIKAELA Labs 07/07/23 07:41 07/07/23 07:41 Labs: Laboratory Results - last 24 hr 07/03/23 07/06/23 07/06/23 02:05 11:28 16:02 MCV MCH MCHC RDW Plt Count MPV Absolute Nucleated RBC Nucleated RBC % (auto) Anion Gap Estim Creat Clear Calc Estimated GFR POC Glucose 315 H 233 H Fasting Glucose Calcium Ur Strep pneumoniae Ag Not Detected 07/06/23 07/07/23 07/07/23 20:21 07:23 07:41 MCV 87.0 MCH 26.7 L MCHC 30.7 L RDW 16.0 Plt Count 313 MPV 9.8 Absolute Nucleated RBC 0.000 Nucleated RBC % (auto) 0.0 Anion Gap 12 Estim Creat Clear Calc 78.5 Estimated GFR > 60 POC Glucose 377 H* 173 H Fasting Glucose 190 H Calcium 10.2 Ur Strep pneumoniae Ag Microbiology Microbiology Results: Microbiology 07/04/23 09:33 Gram Stain - Final Sputum - Expectorated Sputum Culture - Final Assessment and Plan (1) Pneumonia: Status: Acute Plan d6 63yo F with chronic hypoxic respiratory failure due to COPD on 2L home O2, ongoing tobacco abuse, DM2 with gastroparesis, and HTN who presented with 2 weeks of dyspnea and productive cough and found to be septic and hypoxic due to pneumonia sepsis and [id number] hypoxic resp failure due to atypical pneumonia complicated by copd with acute decompensation - d6 ceftriaxone + doxycycline, PCT low, urinary antigens for Legionella + pneumococcus pending, BCx negative , weaning o2 iv steroids, bronchodilators controller inhalers HLD atorvastatin HTN - uncontrolled losartan added amlodipine 5mg daily DM2 with steroid-induced hyperglycemia -hold OHGs; increased correction-dose lispro better controlled gastroparesis - metoclopramide tobacco abuse - NRT VTE prophylaxis - LMWH dispo - TBD, PT eval In my clinical judgment, the patient requires continued inpatient hospitalization for the following reasons: hypoxia, IV ABX Total time managing care of this patient today: 40 minutes. Quality Stroke Does the patient have a stroke diagnosis?: No VTE Prior VTE?: No VTE Risk Level:: Medical - moderate - high VTE Device Contraindication: N/A - Device Ordered VTE Drug Contraindication: N/A - Med Ordered
[2023-07-07 11:42] LABS: Glucose, Whole Blood 408 mg/dL (60-115)
[2023-07-07] MEDS: cefTRIAXone sodium 1 GM in 0.9 % Sodium Chloride 50 ML IV (14:09)
[2023-07-07 16:26] LABS: Glucose, Whole Blood 212 mg/dL (60-115)
[2023-07-07] MEDS: Enoxaparin Sodium 40 MG/0.4 ML SYRINGE SUBCUT (17:59)
[2023-07-07 20:04] LABS: Glucose, Whole Blood 228 mg/dL (60-115)
[2023-07-07] MEDS: Amitriptyline HCl 50 MG TABLET PO (20:15)
[2023-07-07] MEDS: Benzonatate 100 MG CAPSULE 200 MG PO (20:15)
[2023-07-07] MEDS: Aspirin Enteric Coated 81 MG TABLET.DR PO (20:16)
[2023-07-08 03:43] VITALS: BP 155/64; PULSE 70; RESP 21; TEMP 36.6; O2SAT 97
[2023-07-08] MEDS: Doxycycline Hyclate 100 MG in 0.9 % Sodium Chloride 250 ML 166.7 MG IV (05:52)
[2023-07-08] MEDS: Omeprazole 20 MG CAPSULE.DR PO (05:53)
[2023-07-08] MEDS: methylPREDNISolone Sod Succ 40 MG/ML VIAL IVPUSH (05:53)
[2023-07-08] MEDS: Fluticasone Propionate 250 MCG BLST.W.DEV 1 PUFF INHALE (07:21)
[2023-07-08] MEDS: Tiotropium Bromide 2.5 mcg 1 PUFF/2.5 MCG MIST.INHAL INHALE (07:21)
[2023-07-08] MEDS: Albuterol/Iprat 2.5/0.5MG 3 ML AMPUL.NEB INHALE ×2 (07:21→11:01)
[2023-07-08 07:23] VITALS: PULSE 72; RESP 16; O2SAT 98
[2023-07-08 07:26] VITALS: BP 138/76; PULSE 75; RESP 20; TEMP 36.1; O2SAT 98
[2023-07-08 08:13] LABS: Glucose, Whole Blood 215 mg/dL (60-115)
[2023-07-08] MEDS: amLODIPine Besylate 5 MG TABLET PO (08:22)
[2023-07-08] MEDS: Metoclopramide HCl 10 MG TABLET PO ×2 (08:23→11:52)
[2023-07-08] MEDS: Atorvastatin Calcium 20 MG TABLET PO (08:23)
[2023-07-08] MEDS: Losartan Potassium 50 MG TABLET PO (08:23)
[2023-07-08] MEDS: Cholecalciferol (Vitamin D3) 25 MCG TABLET 50 MCG PO (08:23)
[2023-07-08] MEDS: Nicotine 14 MG PATCH.TD24 TRANSDERMA (08:23)
[2023-07-08] MEDS: Gabapentin 400 MG CAPSULE 800 MG PO (08:23)
[2023-07-08] MEDS: Lidocaine 4 % Patch ADH..PATCH 1 PATCH TRANSDERMA (08:24)
[2023-07-08] MEDS: Insulin Lispro 100 UNIT/ML 3 ML VIAL SUBCUT ×2 (08:25→11:52)
[2023-07-08] MEDS: 0.9 % Sodium Chloride Flush 3 ML SYRINGE IVFLUSH (08:25)
--- NOTE | 2023-07-08 09:19 | P.DS_ITS ---
DS: Providers Provider Date of Service: 07/08/23 Date of admission: 07/02/23 17:52 Primary care physician: Cass Lopez MD DS: Diagnosis Discharge Diagnosis (1) Pneumonia: Status: Acute DS: Summary Hospital Course Hospital Course: from initial hpi: 63yo F with COPD on home O2, ongoing tobacco abuse, DM2 with gastroparesis, and HTN who presents with 2 weeks of worsening dyspnea and cough productive of kary sputum. She was admitted here 05/17-05/22/23 for COPD exacerbation and pneumonia requiring BiPAP. Here in the ED, she was found to be hypoxic to SaO2 80% with fever of 102.2F and tachycardia in the 120s. VBG with pH 7.4, pCO2 54. WBC 13. CRP 21.4, PCT 0.06. Lactate 2.6. CXR showed increased bronchial wall thickening as well as new/increased bibasilar infiltrate. Flu A/B and Covid-19 NAATs negative. She was given neb treatments, Lasix, Rocephin, and azithromycin. She was placed on HFNC and is currently at 50% fiO2. She was evaluated by the ICU physician who did not think the patient required ICU level of care. hospital course: Patient was admitted for sepsis and acute on chronic hypoxic respiratory failure due to atypical pneumonia complicated by COPD with acute decompensation. She was treated with ceftriaxone doxycycline and will be transitioned to 5 more days of Ceftin. She was also given IV steroids and bronchodilators. She was able to be weaned down to her baseline 2 L home O2. Symptoms have significantly improved. She will have 5 more days of p.o. prednisone as well. For hyperlipidemia is continue on statin. For uncontrolled hypertension she was continue losartan and amlodipine 5 mg daily has been added. For diabetes with steroid-induced hyperglycemia she was given basal bolus insulin. Sugars improved. For gastroparesis was continued on Reglan as needed. Patient is feeling better will be discharged home. Time Attestation Discharge coordination time: Greater than 30 minutes Quality: Safe Use of Opioids Does Pt have an Active Cancer Diagnosis on the Problem List?: No Quality: Stroke Does the patient have a stroke diagnosis?: No Physical Exam Vital Signs: Vital Signs: Last Vital Signs Temp 96.9 F 07/08/23 07:26 Pulse 75 07/08/23 07:26 Resp 20 11/23/23 07:26 BP 138/76 07/08/23 07:26 Pulse Ox 98 07/08/23 07:26 O2 Del Method Nasal Cannula 07/08/23 07:26 O2 Flow Rate 4 07/08/23 07:26 FiO2 40 07/05/23 11:14 Oxygen Flow Rate 4 07/02/23 13:13 BMI result Body Mass Index 24.2 General: AO X 3, no acute distress Resp: diminished bilateral, no accessory muscles used CVS: S1,S2,RRR GI: soft, non tender, non distended Neuro: motor grossly intact, alert Psych: appropriate affect, appropriate insight DS: Data Data Completed and Pending Labs on day of discharge: Laboratory Results - last 24 hr 07/07/23 07/07/23 07/07/23 11:37 16:20 19:56 POC Glucose 408 H* 212 H 228 H 07/08/23 07:28 POC Glucose 215 H Discharge Plan Discharge Anticipated Discharge Date/Time: 07/08/23 09:14 Patient Disposition: Home, Self-Care Discharge Diagnosis: pna, copd Referrals: Cass Lopez MD [Primary Care Provider] - 1 Week Discharge Medications: New lidocaine [Lidocaine Pain Relief] 4 % Adhesive Patch,Medicated 1 patch transdermal DAILY Qty: 30 0RF Protocol: Apply to: Apply to: anterior chest wal amlodipine 5 mg Tablet 5 mg PO DAILY Qty: 30 0RF Protocol: Hold for SBP< HOLD for SBP < : 90 prednisone 20 mg tablet 40 mg PO DAILY Qty: 10 0RF cefuroxime axetil 500 mg tablet 500 mg PO BID Qty: 10 0RF Continued (DME) lancets [FreeStyle Lancets] 28 gauge misc See Rx Instructions .Route Qty: 100 5RF Rx Instructions: As directed twice a day AC (DME) FreeStyle Lite Strips Strip See Rx Instructions .Route Qty: 100 0RF Rx Instructions: check fasting blood sugar twice a day before meals cholecalciferol (vitamin D3) 50 mcg (2,000 unit) capsule 50 mcg PO DAILY Qty: 90 3RF psyllium husk [Fiber Laxative (psyllium husk)] 0.52 gram capsule 1.04 g PO BID 90 Days Qty: 360 3RF (DME) FreeStyle Cristian 2 Sensor Kit See Rx Instructions .Route Qty: 6 3RF Rx Instructions: Test blood sugar 4 times per day (DME) FreeStyle Cristian 2 [place] Misc See Rx Instructions .Route Qty: 1 0RF Rx Instructions: test blood sugar 4 times per day losartan 50 mg tablet 50 mg PO DAILY Qty: 90 1RF Januvia 100 mg tablet 100 mg PO DAILY Qty: 90 1RF omeprazole 20 mg capsule,delayed release(DR/EC) 20 mg PO DAILY Qty: 90 2RF rosuvastatin 5 mg tablet 5 mg PO DAILY Qty: 90 1RF Flovent Diskus 250 mcg/actuation blister with device 1 inh INHALATION BID naproxen 500 mg tablet 500 mg PO BID Linzess 145 mcg capsule 145 mcg PO DAILY albuterol sulfate 90 mcg/actuation HFA aerosol inhaler 2 puff inhalation Q4-6H PRN (Reason: shortness of breath or wheezing) Qty: 6.7 2RF umeclidinium 62.5 mcg/actuation blister with device 1 inh inhalation DAILY Rx Instructions: Encruse aspirin [Adult Low Dose Aspirin] 81 mg tablet,delayed release (DR/EC) 81 mg PO BEDTIME (DME) blood-glucose meter [FreeStyle Lite Meter] Kit See Rx Instructions .Route Qty: 1 0RF Rx Instructions: As directed twice a day before meals metformin 1,000 mg tablet 1,000 mg PO BID metoclopramide HCl [Reglan] 10 mg tablet 10 mg PO TIDAC Qty: 90 6RF gabapentin 800 mg tablet 800 mg PO TID 30 Days Qty: 90 6RF amitriptyline 25 mg tablet 50 mg PO BEDTIME 30 Days Qty: 60 6RF Discharge Orders: Discharge Order (Routine); Ordered 07/08/23 Ordered By: Adeel Montoya Diet: Advance to usual diet Activity on Discharge: As tolerated Stand Alone Forms: Patient Portal Discharge page Care Plan Goals: recovery Health Concerns: copd, pna Plan of Treatment: 5 more days ceftin and prednisone Assessment: see above
--- NOTE | 2023-07-08 09:31 | MHC.CM.PN ---
Patient has been medically cleared for dc to home today, self care.
[2023-07-08 11:02] VITALS: PULSE 79; RESP 18; O2SAT 94
[2023-07-08 11:30] VITALS: BP 160/69; PULSE 96; RESP 20; TEMP 36.4; O2SAT 94
[2023-07-08 11:35] LABS: Glucose, Whole Blood 254 mg/dL (60-115)
[2023-07-09 03:03] LABS: Legionella Ag Urine Not Detected (Not Detected)
== END 2023-07-08 13:01 | disposition home or self-care (01) | DRG 720 ==
LOC: HO.ED 13:29 → HO.EDOVER 18:27 → HO.IMC 07-03 12:58
PROVIDERS: Admitting Provider Family Medicine; Emergency Provider Emergency Medicine; PCP Internal Medicine; Visit Provider Internal Medicine
DX: A41.9 Sepsis, unspecified organism (principal); J96.21 Acute and chronic respiratory failure with hypoxia; J18.9 Pneumonia, unspecified organism; E11.43 Type 2 diabetes mellitus with diabetic autonomic (poly)neuropathy; K31.84 Gastroparesis; J44.0 Chronic obstructive pulmonary disease with (acute) lower respiratory infection; J44.1 Chronic obstructive pulmonary disease with (acute) exacerbation; Z99.81 Dependence on supplemental oxygen; E78.5 Hyperlipidemia, unspecified; F17.210 Nicotine dependence, cigarettes, uncomplicated; Z71.6 Tobacco abuse counseling; Z79.51 Long term (current) use of inhaled steroids; Z79.82 Long term (current) use of aspirin; Z79.84 Long term (current) use of oral hypoglycemic drugs; Z79.899 Other long term (current) drug therapy; E11.65 Type 2 diabetes mellitus with hyperglycemia
CPT/HCPCS: 36415; 71045; 80048; 82803; 82947; 83605; 83735; 83880; 84145; 84484; 85025; 85027; 85379; 86140; 87040; 87070; 87205; 87449; 87502; 87635; 87899; 93005; 94640; 94799; 97116; 97161; 99285; J0456; J0696; J1650; J1920; J1940; J2920

== ENCOUNTER → 2023-07-02 13:28 | Outpatient (BNV) | payer OTHER, SELFPAY | PROVIDERS: Emergency Provider Emergency Medicine; Visit Provider Family Medicine | DX: J18.9 Pneumonia, unspecified organism (principal) | CPT/HCPCS: 99223; 99232; 99233; 99239 ==

== ENCOUNTER 2023-07-15 15:25 | Outpatient (AMB) | payer OTHER, SELFPAY ==
[2023-07-15 15:38] VITALS: BP 142/68; PULSE 104; O2SAT 92; BMI 24.8
--- NOTE | 2023-07-15 15:38 | A.OFFPC_ITS ---
Vital Signs 07/15/23 15:38 Height 4 ft 9 in Weight 114 lb 8 oz BMI 24.8 BP 142/68 H Blood Pressure Location Rt brachial Position Sitting Pulse 104 H Pulse Source Pulse Oximeter Pulse Oximetry (%) 92 Oxygen Delivery Method Room Air Intake Visit Reasons: HDF ~ Post hospital discharge FU Intake Note: Pt is here for a HDF from [facility] Allergies amoxicillin [AMOXICILLIN] Allergy (Intermediate, Verified 08/03/23 18:20) RASH Medication List - Last Reconciled 07/15/23 by Magalie Nicolas MD albuterol sulfate 90 mcg/actuation 2 puffs inhalation Q4-6H PRN amitriptyline 50 mg (2 x 25 mg) PO BEDTIME 30 days amlodipine 5 mg See Protocol PO DAILY aspirin (Adult Low Dose Aspirin) 81 mg PO BEDTIME blood-glucose meter (FreeStyle Lite Meter kit) As directed twice a day before m eals cholecalciferol (vitamin D3) 50 mcg PO DAILY flash glucose scanning reader ([employer] Cristian [address] [place]) test blood sugar 4 times per day flash glucose sensor (FreeStyle Cristian 2 Sensor kit) Test blood sugar 4 times per day fluticasone propionate 250 mcg/actuation (Flovent Diskus) 1 inh inhalation BID FreeStyle Lite Strips (blood sugar diagnostic) check fasting blood sugar twice a day before meals NS gabapentin 800 mg PO TID 30 days lancets (FreeStyle Lancets) As directed twice a day AC lidocaine 4% (Lidocaine Pain Relief) 1 patch See Protocol transdermal DAILY linaclotide (Linzess) 145 mcg PO DAILY losartan 50 mg PO DAILY metformin 1,000 mg PO BID metoclopramide HCl (Reglan) 10 mg PO TIDAC naproxen 500 mg PO BID omeprazole 20 mg PO DAILY psyllium husk (Fiber Laxative (psyllium husk)) 1.04 grams (2 x 0.52 gram) PO BID 90 days rosuvastatin 5 mg PO DAILY sitagliptin phosphate (Januvia) 100 mg PO DAILY umeclidinium 62.5 mcg/actuation 1 inh inhalation DAILY Tobacco use date assessed: 07/15/23 Dental Screening Dental Screen Date: 07/15/23 Did you have a dental visit in the last 12 months?: Yes Did you have a dental problem in the last 6 months where you did not have access to dental care?: No Was dental information given to patient?: Patient has dentist HPI HDF ~ Post hospital discharge FU HPI Details 63-year-old lady with COPD, on home O2, ongoing tobacco abuse, diabetes mellitus type 2 with gastroparesis, hypertension, here today for follow-up after a recent hospital admission at [facility] from 05/17-05/22/23, admitted for sepsis and acute on chronic hypoxic respiratory failure due to atypical pneumonia complicated by COPD with acute decompensation. She was treated with ceftriaxone, doxycycline , later transitioned to 5 more days of Ceftin. She was also given IV steroids and bronchodilators. She was able to be weaned down to her baseline 2 L home O2 . She was discharged on 5 more days of p.o. prednisone , continued on rosuvastatin 5 mg daily for her hyperlipidemia . Noted to have uncontrolled hypertension during admission, and amlodipine 5 mg was added to her losartan 50 mg daily . She had steroid-induced hyperglycemia during admission and she was given basal bolus insulin, with improvement in sugar control, continued on regular gastroparesis. At present patient states that she has been breathing better, back to her baseline 2 L home O2. Unfortunately continues to smoke cigarettes, but states that she has been cutting back. HPI Comments History of Present Illness Details [facility] Medical History (Updated 08/03/23 @ 18:44 by Magalie Nicolas MD) COPD (chronic obstructive pulmonary disease) Type 2 diabetes mellitus without complication, with no history of insulin use Mixed dyslipidemia Essential hypertension GERD (gastroesophageal reflux disease) Gastroparesis Diastolic CHF with preserved left ventricular function, NYHA class 2 Chronic hypercapnic respiratory failure Type 2 diabetes mellitus with other diabetic kidney complication Type 2 diabetes mellitus without complication, with no history of insulin use Smoker unmotivated to quit Postlaminectomy syndrome of cervical region Seasonal allergic rhinitis Degenerative disc disease, cervical Postmenopause Dyslipidemia Surgical History H/O cervical discectomy History of esophagogastroduodenoscopy (EGD) Hx of colonoscopy Family History Mother Diabetes Sister Diabetes Mental health disorder Brother Diabetes Father HTN (hypertension) Social History Household Members: Significant Other Housing: Other Housing Other:: Mobile Home Do you presently have visiting nurse or other home services: Yes ([employer]) Alcohol intake: former Comment: Commode/ Hi Flow O2 Patient Tobacco Use Status: Current everyday Tobacco user Tobacco use type: Cigarette Cigarette Packs Per Day: 1 Cigarettes Per Day: 20.0 Years Smoked: 20 e-Cigarette/Vaping Use: Never Used Second Hand Smoke Exposure: Yes Advance Directives Date on File: 09/20/21 service: No Current occupational status: unemployed Cognitive needs: No Hearing needs: No Vision needs: Yes Questionnaire Thrive Questionnaire Date Thrive assessed: 07/04/23 FREDI-7 AMB Questionnaire FREDI-7 Date FREDI - 7 assessed: 09/02/22 Source: Developed by Drs. Wiley Caballero, Sharmila Paez, Iraj Hernandez and colleagues, with an educational radha from [employer]. Review of Systems Const Denies fatigue, Denies fever(s), Denies headache(s), Denies poor appetite and Reports weight loss ENT Reports Normal hearing present, Denies dysphagia, Denies headache(s), Denies nasal congestion, Denies nasal discharge and Denies odynophagia Card Denies chest pain, Denies chest pain with activity, Denies irregular heart rhythm and Denies lightheadedness Resp Denies cough GI Denies abdominal pain, Denies melena, Denies bloating, Denies hematochezia, Denies GI cramping, Denies dysphagia, Denies excessive flatus, Reports heartburn, Denies diarrhea, Denies nausea, Denies odynophagia, Denies vomiting and Denies hematemesis Skin/Breast Denies pruritus, Denies lesions, Denies rash and Denies jaundice Neuro Reports Normal hearing present, Denies Abnormal speech present and Denies headache(s) Endo Denies fatigue Physical exam (Primary Care) Vital Signs: Last Vital Signs Pulse 104 H 07/15/23 15:38 BP 142/68 H 07/15/23 15:38 Pulse Ox 92 07/15/23 15:38 Oxygen Delivery Method Room Air 07/15/23 15:38 BMI result Body Mass Index 24.8 Tobacco/Smoking Status: Tobacco use Status Tobacco use date assessed 07/15/23 07/15/23 15:49 Patient Tobacco Use Status Current everyday Tobacco 07/15/23 15:49 Tobacco use type Cigarette 07/15/23 15:49 e-Cigarette/Vaping Use Currently Using 07/15/23 15:49 Are you ready to quit: No Tobacco cessation counseling provided: Yes Thrive Assessment: Date of Thrive Assessment Date Thrive assessed 07/04/23 07/15/23 15:49 Const Other: Alert oriented x3, no acute cardiorespiratory distress noted, ambulatory with normal gait HENMT Ears: external ears normal General nose exam: Normal external nose present and No nasal discharge present Mouth: oropharynx normal and moist mucous membranes Neck Neck: Yes full ROM, Yes no lymphadenopathy and Yes supple Resp Other: on portable O2 at 2 L/NC Effort & Inspection: normal respiratory effort and able to speak in complete sentences Auscultation: no crackles, no rales, no wheezes and diminished lung sounds Cardio Other: S1-S2 present regular rate and rhythm Rate: regular rate Rhythm: regular rhythm Heart sounds: S1 normal heart sound present and S2 normal heart sound present GI Other: Normal bowel sounds, soft, nontender, no mass palpated Skin General skin exam: no rashes or lesions noted Neuro General: gait normal, tone normal, moves all extremities, Normal light touch and pain sensation and no focal motor deficits Cranial nerves: Yes Normal hearing present Cognition (Neuro): normal cognition Speech: No Abnormal speech present Gait exam (Neuro): Normal gait present Motor exam (neuro): 5/5 motor strength present throughout Extrem General: Yes full ROM, Yes no joint enlargement, Yes no pedal edema, Yes no calf tenderness and Yes normal gait Assessment and Plan Assessment & Plan (1) History of pneumonia: Code(s): Z87.01 - Personal history of pneumonia (recurrent) Plan: Already completed antibiotic. Denies any ongoing fever, no chills, no chest pain or shortness of breath, but still has a lingering dry cough. Strongly advised to quit smoking. Repeat chest x-ray (2) GERD (gastroesophageal reflux disease): Code(s): K21.9 - Gastro-esophageal reflux disease without esophagitis Qualifiers: Esophagitis presence: without esophagitis Qualified Code(s): K21.9 - Gastro-esophageal reflux disease without esophagitis Plan: Continue omeprazole 20 mg daily as needed (3) Smoker unmotivated to quit: Code(s): F17.200 - Nicotine dependence, unspecified, uncomplicated Plan: Patient strongly advised to stop smoking, as smoking damages blood vessels, degenerative of joints and spine, damage to lungs and heart., predisposes to developing certain cancers like lung, breast, bladder, colon. Recommended to try decreasing cigarette use by 1-2 cigarettes a day. Advised to monitor what triggers are for smoking so that this can be discussed on the next office visit. We can discuss different options to quit smoking when ready. (4) Essential hypertension: Code(s): I10 - Essential (primary) hypertension Plan: Blood pressure elevated today, will continue losartan 50 mg daily, and continue with amlodipine 5 mg daily. Reinforced importance of following a low sodium diet, getting regular exercise, and lowering stress levels, and strongly advised to quit smoking. (5) Mixed dyslipidemia: Code(s): E78.2 - Mixed hyperlipidemia Plan: Continue with rosuvastatin 5 mg daily,Continue with adherence to low-cholesterol diet and regular exercise, at least 30 minutes 3 to 4 times a week. Advised patient to make healthy food choices, eat more fruits, vegetables, whole grains, wild caught fish and low-fat dairy. Limit amount of meat and fried or fatty food products, as well as processed foods and fast foods. (6) Type 2 diabetes mellitus without complication, with no history of insulin use: Code(s): E11.9 - Type 2 diabetes mellitus without complications Plan: Continue with sitagliptin 100 mg daily, metformin a 1000 mg 1 tablet twice a day, and stressed importance of adherence to recommended diet, getting regular exercise. (7) Chronic idiopathic constipation: Code(s): K59.04 - Chronic idiopathic constipation Plan: Continue Linzess (8) COPD (chronic obstructive pulmonary disease): Comment: Sees [facility] Pulmonary Code(s): J44.9 - Chronic obstructive pulmonary disease, unspecified Qualifiers: COPD type: COPD with acute exacerbation Qualified Code(s): J44.1 - Chronic obstructive pulmonary disease with (acute) exacerbation Plan: Advised to follow-up with his painter mirror at [facility]. Currently Flovent, and albuterol as needed, on until at 2 L per nasal cannula and advised to quit smoking. Orders: Orders XR chest 2V 07/15/23 Z87.01 - Personal history of pneumonia (recurrent) Coding Level of Care Code Est Pt Level 4 (14744) Diagnoses History of pneumonia Z87.01 Gastroesophageal reflux disease without esophagitis K21.9 Esophagitis presence: without esophagitis Smoker unmotivated to quit F17.200 Essential hypertension I10 Mixed dyslipidemia E78.2 Type 2 diabetes mellitus without complication, with no history of insulin use E11.9 Chronic idiopathic constipation K59.04 Chronic obstructive pulmonary disease with acute exacerbation J44.1 COPD type: COPD with acute exacerbation
== END 2023-07-15 16:35 | disposition home or self-care (01) ==
PROVIDERS: PCP Internal Medicine; Visit Provider Internal Medicine
DX: E11.9 Type 2 diabetes mellitus without complications (principal); J44.1 Chronic obstructive pulmonary disease with (acute) exacerbation; Z87.01 Personal history of pneumonia (recurrent); K21.9 Gastro-esophageal reflux disease without esophagitis; F17.210 Nicotine dependence, cigarettes, uncomplicated; I10 Essential (primary) hypertension; E78.2 Mixed hyperlipidemia; K59.04 Chronic idiopathic constipation
CPT/HCPCS: 99214

== ENCOUNTER 2023-07-15 16:19 | Outpatient (REF) | payer OTHER, SELFPAY ==
--- NOTE | ~2023-07-15 | XR_ITS ---
EXAMINATION: XR CHEST 2 VIEW CLINICAL INFORMATION: Follow-up pneumonia COMPARISON: 07/02/2023 TECHNIQUE: PA and lateral views of the chest obtained. FINDINGS: There is improved aeration at the right lung base. However, there still some irregularity of the right hemidiaphragm and patchy opacity is evident in the lateral posterior right lower lobe. The left lung is clear. The cardiac silhouette is not enlarged. XR/XR chest 2V IMPRESSION: Improvement though incomplete resolution of right lower lobe airspace opacities. Additional follow-up is recommended to confirm complete clearing.
== END 2023-07-15 16:20 | disposition home or self-care (01) ==
LOC: HO.HMGCX 16:19
PROVIDERS: PCP Internal Medicine; Visit Provider Internal Medicine
DX: Z87.01 Personal history of pneumonia (recurrent) (principal)
CPT/HCPCS: 71046

== ENCOUNTER 2023-07-19 08:22 | Outpatient (REF) | payer OTHER, SELFPAY ==
[2023-07-19 11:53] LABS: Alanine Aminotransferase 12 U/L (0-31); Anion Gap 15 (12-20); Aspartate Amino Transferase 11 U/L (5-31); Blood Urea Nitrogen 9 mg/dL (9-16); Calcium 10.1 mg/dL (8.4-10.2); Carbon Dioxide 32 mmol/L (22-29); Chloride 101 mmol/L (96-108); Cholesterol 184 mg/dL (<200); Estimated Glomerular Filt Rate > 60; Glucose Fasting 171 mg/dL (60-99); HDL Cholesterol 47 mg/dL (>40); LDL Cholesterol Calculated 59 mg/dL (<100); Potassium 3.6 mmol/L (3.3-5.1); Sodium 144 mmol/L (135-145); Triglycerides 391 mg/dL (<150)
[2023-07-19 12:07] LABS: Estimated Average Glucose 143 mg/dL; Hemoglobin A1c % 6.6 % (<6.0)
[2023-07-19 12:16] LABS: Vitamin D 25-OH Total 77.2 ng/mL (>30)
== END 2023-07-19 08:23 | disposition home or self-care (01) ==
LOC: HO.HMGCLDS 08:22
PROVIDERS: PCP Internal Medicine; Visit Provider Internal Medicine
DX: E11.9 Type 2 diabetes mellitus without complications (principal); E78.2 Mixed hyperlipidemia; I10 Essential (primary) hypertension; Z78.0 Asymptomatic menopausal state
CPT/HCPCS: 36415; 80048; 80061; 82306; 83036; 84450; 84460

== ENCOUNTER 2023-07-21 13:10 | Outpatient (AMB) | payer OTHER, SELFPAY ==
--- NOTE | 2023-07-21 13:44 | MHC.PC.OV ---
Vital Signs 07/21/23 13:45 Height 4 ft 9 in Weight 116 lb 4 oz BMI 25.2 BP 142/60 H Blood Pressure Location Rt brachial Position Sitting Pulse 105 H Pulse Source Pulse Oximeter Pulse Oximetry (%) 94 Oxygen Delivery Method Room Air Intake Visit Reasons: 4 months f/u labs Intake Note: Pt is here to follow for her lab results Allergies amoxicillin [AMOXICILLIN] Allergy (Intermediate, Verified 08/25/23 14:03) RASH Medication List - Last Reconciled 07/21/23 by Magalie Nicolas MD albuterol sulfate 90 mcg/actuation 2 puffs inhalation Q4-6H PRN amitriptyline 50 mg (2 x 25 mg) PO BEDTIME 30 days amlodipine 5 mg See Protocol PO DAILY aspirin (Adult Low Dose Aspirin) 81 mg PO BEDTIME blood-glucose meter (FreeStyle Lite Meter kit) As directed twice a day before meals cholecalciferol (vitamin D3) 50 mcg PO DAILY flash glucose scanning reader (AtmosferiqStyle Cristian 2 [place]) test blood sugar 4 times per day flash glucose sensor (FreeStyle Cristian 2 Sensor kit) Test blood sugar 4 times per day fluticasone propionate 250 mcg/actuation (Flovent Diskus) 1 inh inhalation BID FreeStyle Lite Strips (blood sugar diagnostic) check fasting blood sugar twice a day before meals NS gabapentin 800 mg PO TID 30 days lancets (FreeStyle Lancets) As directed twice a day AC lidocaine 4% (Lidocaine Pain Relief) 1 patch See Protocol transdermal DAILY linaclotide (Linzess) 145 mcg PO DAILY losartan 50 mg PO DAILY metformin 1,000 mg PO BID metoclopramide HCl (Reglan) 10 mg PO TIDAC naproxen 500 mg PO BID omeprazole 20 mg PO DAILY psyllium husk (Fiber Laxative (psyllium husk)) 1.04 grams (2 x 0.52 gram) PO BID 90 days rosuvastatin 5 mg PO DAILY sitagliptin phosphate (Januvia) 100 mg PO DAILY umeclidinium 62.5 mcg/actuation 1 inh inhalation DAILY Tobacco use date assessed: 07/21/23 Dental Screening Dental Screen Date: 07/21/23 Did you have a dental visit in the last 12 months?: Yes Did you have a dental problem in the last 6 months where you did not have access to dental care?: No Was dental information given to patient?: Patient has dentist HPI 4 months f/u labs HPI Details 63-year-old lady here today for follow-up on her hypercholesterolemia and diabetes mellitus. Has been taking her medications as directed, but admits to not getting any regular exercise . Latest fasting labs showed normal lipids except for elevated triglycerides and hemoglobin A1c is at 6.6%. [facility] Medical History Chronic lung disease COPD (chronic obstructive pulmonary disease) Type 2 diabetes mellitus without complication, with no history of insulin use Mixed dyslipidemia Essential hypertension GERD (gastroesophageal reflux disease) Gastroparesis Diastolic CHF with preserved left ventricular function, NYHA class 2 Chronic hypercapnic respiratory failure Type 2 diabetes mellitus with other diabetic kidney complication Type 2 diabetes mellitus without complication, with no history of insulin use Smoker unmotivated to quit Postlaminectomy syndrome of cervical region Seasonal allergic rhinitis Degenerative disc disease, cervical Postmenopause Dyslipidemia Surgical History H/O cervical discectomy History of esophagogastroduodenoscopy (EGD) Hx of colonoscopy Family History Mother Diabetes Sister Diabetes Mental health disorder Brother Diabetes Father HTN (hypertension) Social History Household Members: Significant Other Housing: Other Housing Other:: Mobile Home Do you presently have visiting nurse or other home services: Yes ([employer]) Alcohol intake: former Comment: Commode/ Hi Flow O2 Patient Tobacco Use Status: Current everyday Tobacco user Tobacco use type: Cigarette Cigarette Packs Per Day: 1 Cigarettes Per Day: 20.0 Years Smoked: 20 e-Cigarette/Vaping Use: Never Used Second Hand Smoke Exposure: Yes Advance Directives Date on File: 09/20/21 service: No Current occupational status: unemployed Cognitive needs: No Hearing needs: No Vision needs: Yes Questionnaire Thrive Questionnaire Date Thrive assessed: 07/04/23 FREDI-7 AMB Questionnaire FREDI-7 Date FREDI - 7 assessed: 09/02/22 Source: Developed by Drs. Wiley Caballero, Sharmila Paez, Iraj Hernandez and colleagues, with an educational radha from [employer]. Review of Systems Const Denies fatigue, Denies fever(s), Denies night sweats, Denies poor appetite and Denies weight loss Eyes Details: Glasses Reports requires corrective lenses ENT Reports Normal hearing present, Denies dysphagia, Denies odynophagia, Denies throat swelling and Denies tongue swelling Card Reports no additional complaints and Reports dyspnea on exertion Resp Reports cough and Reports dyspnea on exertion GI Denies abdominal pain, Denies melena, Reports bloating, Denies hematochezia, Reports constipation, Denies GI cramping, Denies dysphagia, Denies excessive flatus, Reports early satiety, Reports heartburn, Denies diarrhea, Denies nausea, Denies odynophagia, Denies vomiting and Denies hematemesis Reports no additional complaints Musc Reports stiffness Skin/Breast Denies pruritus, Denies lesions, Denies rash and Denies jaundice Neuro Reports Normal hearing present and Denies Abnormal speech present Endo Denies fatigue, Denies polydipsia and Denies polyuria Aller/Immun Denies throat swelling and Denies tongue swelling Physical exam (Primary Care) Vital Signs: Last Vital Signs Pulse 105 H 07/21/23 13:45 BP 142/60 H 07/21/23 13:45 Pulse Ox 94 07/21/23 13:45 Oxygen Delivery Method Room Air 07/21/23 13:45 BMI result Body Mass Index 25.2 Tobacco/Smoking Status: Tobacco use Status Tobacco use date assessed 07/21/23 07/21/23 13:53 Patient Tobacco Use Status Current everyday Tobacco 07/21/23 13:45 Tobacco use type Cigarette 07/21/23 13:45 e-Cigarette/Vaping Use Currently Using 07/21/23 13:45 Are you ready to quit: No Tobacco cessation counseling provided: Yes Thrive Assessment: Date of Thrive Assessment Date Thrive assessed 07/04/23 07/21/23 13:45 Const Other: Alert oriented x3, no acute cardiorespiratory distress noted, ambulatory with normal gait HENMT Ears: external ears normal General nose exam: Normal external nose present and No nasal discharge present Mouth: oropharynx normal and moist mucous membranes Neck Neck: Yes full ROM, Yes no lymphadenopathy and Yes supple Resp Other: on portable O2 at 2 L/NC Effort & Inspection: normal respiratory effort and able to speak in complete sentences Auscultation: no crackles, no rales, no wheezes and diminished lung sounds Cardio Other: S1-S2 present regular rate and rhythm Rate: regular rate Rhythm: regular rhythm Heart sounds: S1 normal heart sound present and S2 normal heart sound present GI Other: Normal bowel sounds, soft, nontender, no mass palpated Skin General skin exam: no rashes or lesions noted Neuro General: gait normal, tone normal, moves all extremities, Normal light touch and pain sensation and no focal motor deficits Cranial nerves: Yes Normal hearing present Cognition (Neuro): normal cognition Speech: No Abnormal speech present Gait exam (Neuro): Normal gait present Motor exam (neuro): 5/5 motor strength present throughout Extrem General: Yes full ROM, Yes no joint enlargement, Yes no pedal edema, Yes no calf tenderness and Yes normal gait Results Reviewed Results Reviewed: Name: Maria Elena Kingston Age/Sex: 63/F : 1960 Unit#: [id number] Attend Dr: Magalie Nicolas MD Re07/19/23 Status: DEP REF Location: [facility] [place] Disch: SPEC : [id number] SEUN: 07/19/23 STATUS: COMP REQ : [id number] RECD: 07/19/[address]: Magalie Nicolas MD COMP: 07/19/23 ENTERED: 07/19/[address] [facility] [address]: ORDERED: Met Prof Fast, AST, ALT, Lipid Panel, Vitamin D 25-OH Test Result Flag Reference Sodium 144 135-145 mmol/L Potassium 3.6 3.3-5.1 mmol/L CL 101 96-108 mmol/L CO2 32 H 22-29 mmol/L Gap 15 12-20 BUN 9 9-16 mg/dL Creat 0.51 0.5-1.4 mg/dL EGFR > 60 NOTE: For -[place] individuals, multiply the result by 1.210. Chronic Kidney Disease: Estimated GFR < 60 mL/min/1.73m2 Severe Kidney Disease: Estimated GFR < 15 mL/min/1.73m2 FBS 171 H 60-99 mg/dL A fasting glucose of 126 mg/dl or greater on more than one occasion is considered diagnostic of diabetes. CA 10.1 8.4-10.2 mg/dL AST (GOT) 11 5-31 U/L ALT (GPT) 12 0-31 U/L Triglyceride 391 H <150 mg/dL Desirable Triglyceride: less than 150 mg/dL Borderline High Triglyceride 150-199 mg/dL High Triglyceride: 200-499 mg/dL Very High Triglyceride: greater than or equal to 5OO mg/dL Cholesterol 184 <200 mg/dL Desirable Cholesterol: less than 200 mg/dL Borderline High Cholesterol: 200-239 mg/dL High Cholesterol: greater than 239 mg/dL LDL Calculated 59 <100 mg/dL Desirable LDL: less than 100 mg/dL Near Optimal/Above Optimal LDL: 110-129 mg/dL Borderline High LDL: 130-159 mg/dL High LDL: 160-189 mg/dL Very High LDL: greater than or equal to 190 mg/dL HDL 47 >40 mg/dL Desirable HDL: greater than 40 mg/dL Note: This HDL assay may give artificially low results in patients with liver disease. Vit D 25-OH Tot 77.2 >30 ng/mL Health Based Reference Values* < 20 ng/mL Deficient 20-30 ng/mL Insufficient > 30 ng/mL Sufficient Laboratory Tests 07/19/23 08:32 Estimat Average Glucose 143 Hemoglobin A1c % 6.6 H Assessment and Plan Assessment & Plan (1) Type 2 diabetes mellitus without complication, with no history of insulin use: Code(s): E11.9 - Type 2 diabetes mellitus without complications Plan: Continue with metformin 1000 mg 1 tablet twice a day and sitagliptin 100 mg once a day., Reinforced diabetic diet and regular exercise with patient. Counseled regarding importance of yearly diabetes retinopathy screening. Patient advised to inspect feet daily, for any signs of injury, callus or infection. Compliance with diet and regular exercise again stressed. Blood pressure goal is less than 130/80, goal LDL is less than 100 and goal hemoglobin A1c is less than 7% follow-up appointment made in--3-months, after fasting labs done. (2) Smoker unmotivated to quit: Code(s): F17.200 - Nicotine dependence, unspecified, uncomplicated Plan: Patient strongly advised to stop smoking, as smoking damages blood vessels, degenerative of joints and spine, damage to lungs and heart., predisposes to developing certain cancers like lung, breast, bladder, colon. Recommended to try decreasing cigarette use by 1-2 cigarettes a day. Advised to monitor what triggers are for smoking so that this can be discussed on the next office visit. We can discuss different options to quit smoking when ready. (3) Mixed dyslipidemia: Code(s): E78.2 - Mixed hyperlipidemia Plan: Reviewed recent fasting lipid profile with patient with elevated triglycerides but LDL cholesterol is at goal less than 70 mg/dL. . Continue with rosuvastatin 5 mg daily , in addition to adherence to low-cholesterol diet and regular exercise, at least 30 minutes 3 to 4 times a week. Advised patient to make healthy food choices, eat more fruits, vegetables, whole grains, wild caught fish and low-fat dairy. Limit amount of meat and fried or fatty food products, as well as processed foods and fast foods. Follow-up scheduled with repeat fasting lipid panel in 3 months. Orders: Orders Basic Metabolic Panel Fasting 10/18/23 I10 - Essential (primary) hypertension, E78.2 - Mixed hyperlipidemia, E11.9 - Type 2 diabetes mellitus without complications, Z78.0 - Asymptomatic menopausal state Microalbumin, Random (w Creat) 10/18/23 I10 - Essential (primary) hypertension, E78.2 - Mixed hyperlipidemia, E11.9 - Type 2 diabetes mellitus without complications, Z78.0 - Asymptomatic menopausal state XR chest 2V 3 Weeks J18.9 - Pneumonia, unspecified organism Complete Blood Count Auto Diff 3 Weeks J18.9 - Pneumonia, unspecified organism Hemoglobin A1c 10/18/23 I10 - Essential (primary) hypertension, E78.2 - Mixed hyperlipidemia, E11.9 - Type 2 diabetes mellitus without complications, Z78.0 - Asymptomatic menopausal state Lipid Panel 10/18/23 I10 - Essential (primary) hypertension, E78.2 - Mixed hyperlipidemia, E11.9 - Type 2 diabetes mellitus without complications, Z78.0 - Asymptomatic menopausal state Vitamin D 25-OH Total 10/18/23 I10 - Essential (primary) hypertension, E78.2 - Mixed hyperlipidemia, E11.9 - Type 2 diabetes mellitus without complications, Z78.0 - Asymptomatic menopausal state Alanine Aminotransferase 10/18/23 I10 - Essential (primary) hypertension, E78.2 - Mixed hyperlipidemia, E11.9 - Type 2 diabetes mellitus without complications, Z78.0 - Asymptomatic menopausal state Aspartate Amino Transferase 10/18/23 I10 - Essential (primary) hypertension, E78.2 - Mixed hyperlipidemia, E11.9 - Type 2 diabetes mellitus without complications, Z78.0 - Asymptomatic menopausal state Medications: New cefuroxime axetil 500 mg PO Q12H 10 tabs 0RF Coding Level of Care Code Est Pt Level 3 (97802) Diagnoses Type 2 diabetes mellitus without complication, with no history of insulin use E11.9 Smoker unmotivated to quit F17.200 Mixed dyslipidemia E78.2
[2023-07-21 13:45] VITALS: BP 142/60; PULSE 105; O2SAT 94; BMI 25.2
== END 2023-07-21 14:10 | disposition home or self-care (01) ==
PROVIDERS: PCP Internal Medicine; Visit Provider Internal Medicine
DX: E11.9 Type 2 diabetes mellitus without complications (principal); F17.200 Nicotine dependence, unspecified, uncomplicated; E78.2 Mixed hyperlipidemia
CPT/HCPCS: 99213

== ENCOUNTER 2023-08-01 15:49 | Inpatient (IN) | payer OTHER, SELFPAY ==
[2023-08-01] VITALS (8 sets, daily range): BP systolic 140–171; BP diastolic 57–66; PULSE 94–109; RESP 18–23; TEMP 36.2–36.9; O2SAT 82–91; BMI 26.1
--- NOTE | ~2023-08-01 | XR_ITS ---
EXAMINATION: XR thoracic spine 2V, XR lumbar spine 2-3V, XR chest 1V CLINICAL INFORMATION: Reason for Exam pain, lower thoracic/upper lumbar COMPARISON: Comparison is made to prior chest radiograph done on 07/15/2023. TECHNIQUE: Single frontal view of the chest and 2 views, 3 images of the lumbosacral spine and 2 views, 4 images of the thoracic spine. FINDINGS: Chest: Mild hyperinflated lung field associated with prominent bronchovascular markings, appear similar including presumed pleuroparenchymal scar at right lung base, unchanged since 07/15/2023. Heart and mediastinal silhouette is within normal limit. No evidence of any pleural effusion or pneumothorax. Overall no significant change. Lumbosacral spine shows rotatory mid lumbar scoliosis, mild diffuse osteopenia and mild multilevel degenerative spondylosis. The posterior appendages are intact. The paraspinal soft tissues are unremarkable. Incidental note is made of diffuse calcific atherosclerotic disease of the aorta. Thoracic spine: Moderate diffuse osteopenia. The heights, alignment of the thoracic vertebrae appear within normal limits. The posterior appendages are intact. The paraspinal soft tissues are unremarkable. Incidental note is made of postsurgical changes of anterior intervertebral disc fusion at C5-C6 with intact hardware. XR/XR thoracic spine 2V IMPRESSION: 1. The chest radiograph shows no radiographic evidence of acute cardiopulmonary disease. 2. The radiographs of the thoracic and lumbosacral spine shows rotatory mid lumbar moderate scoliosis, mild diffuse osteopenia and mild multilevel degenerative spondylosis and postsurgical changes of anterior cervical fusion at C5-C6 with intact hardware.
--- NOTE | ~2023-08-01 | XR_ITS ---
EXAMINATION: XR thoracic spine 2V, XR lumbar spine 2-3V, XR chest 1V CLINICAL INFORMATION: Reason for Exam pain, lower thoracic/upper lumbar COMPARISON: Comparison is made to prior chest radiograph done on 07/15/2023. TECHNIQUE: Single frontal view of the chest and 2 views, 3 images of the lumbosacral spine and 2 views, 4 images of the thoracic spine. FINDINGS: Chest: Mild hyperinflated lung field associated with prominent bronchovascular markings, appear similar including presumed pleuroparenchymal scar at right lung base, unchanged since 07/15/2023. Heart and mediastinal silhouette is within normal limit. No evidence of any pleural effusion or pneumothorax. Overall no significant change. Lumbosacral spine shows rotatory mid lumbar scoliosis, mild diffuse osteopenia and mild multilevel degenerative spondylosis. The posterior appendages are intact. The paraspinal soft tissues are unremarkable. Incidental note is made of diffuse calcific atherosclerotic disease of the aorta. Thoracic spine: Moderate diffuse osteopenia. The heights, alignment of the thoracic vertebrae appear within normal limits. The posterior appendages are intact. The paraspinal soft tissues are unremarkable. Incidental note is made of postsurgical changes of anterior intervertebral disc fusion at C5-C6 with intact hardware. XR/XR chest 1V IMPRESSION: 1. The chest radiograph shows no radiographic evidence of acute cardiopulmonary disease. 2. The radiographs of the thoracic and lumbosacral spine shows rotatory mid lumbar moderate scoliosis, mild diffuse osteopenia and mild multilevel degenerative spondylosis and postsurgical changes of anterior cervical fusion at C5-C6 with intact hardware.
--- NOTE | ~2023-08-01 | XR_ITS ---
EXAMINATION: XR thoracic spine 2V, XR lumbar spine 2-3V, XR chest 1V CLINICAL INFORMATION: Reason for Exam pain, lower thoracic/upper lumbar COMPARISON: Comparison is made to prior chest radiograph done on 07/15/2023. TECHNIQUE: Single frontal view of the chest and 2 views, 3 images of the lumbosacral spine and 2 views, 4 images of the thoracic spine. FINDINGS: Chest: Mild hyperinflated lung field associated with prominent bronchovascular markings, appear similar including presumed pleuroparenchymal scar at right lung base, unchanged since 07/15/2023. Heart and mediastinal silhouette is within normal limit. No evidence of any pleural effusion or pneumothorax. Overall no significant change. Lumbosacral spine shows rotatory mid lumbar scoliosis, mild diffuse osteopenia and mild multilevel degenerative spondylosis. The posterior appendages are intact. The paraspinal soft tissues are unremarkable. Incidental note is made of diffuse calcific atherosclerotic disease of the aorta. Thoracic spine: Moderate diffuse osteopenia. The heights, alignment of the thoracic vertebrae appear within normal limits. The posterior appendages are intact. The paraspinal soft tissues are unremarkable. Incidental note is made of postsurgical changes of anterior intervertebral disc fusion at C5-C6 with intact hardware. XR/XR lumbar spine 2-3V IMPRESSION: 1. The chest radiograph shows no radiographic evidence of acute cardiopulmonary disease. 2. The radiographs of the thoracic and lumbosacral spine shows rotatory mid lumbar moderate scoliosis, mild diffuse osteopenia and mild multilevel degenerative spondylosis and postsurgical changes of anterior cervical fusion at C5-C6 with intact hardware.
--- NOTE | 2023-08-01 16:19 | ECG_ITS ---
Test Reason : SHORT OF BREATHE Blood Pressure : / mmHG Vent. Rate : 107 BPM Atrial Rate : 107 BPM P-R Int : 118 ms QRS Dur : 084 ms QT Int : 330 ms P-R-T Axes : 072 090 094 degrees QTc Int : 440 ms Sinus tachycardia Rightward axis Nonspecific ST abnormality Abnormal ECG When compared with ECG of 02-JUL-2023 13:16, T wave inversion no longer evident in Inferior leads T wave inversion no longer evident in Lateral leads Referred By: Loreto Cruz Electronically Signed By:Allen Gant
--- NOTE | 2023-08-01 16:28 | ED_ITS ---
HPI - URI/Sore Throat General Chief Complaint: Upper Respiratory Symptoms Stated Complaint: Middle of back pain/cough discharge Time Seen by Provider: 08/01/23 16:17 Source: patient and family Mode of arrival: wheelchair Limitations: no limitations History of Present Illness HPI Narrative: Patient comes to the emergency room accompanied by her . Patient states that for a few days Salima patient has been having lower thoracic/upper lumbar pain. Patient denies any falls, denies drug use. Patient is a heavy smoker. Patient states that she has been coughing more than usual, patient has history of COPD, uses 2 L at home. Patient denies fever chills. Patient was discharged from the hospital approximately 1 month ago, patient was treated for pneumonia. Today, when patient arrived to the ED, patient's oxygen saturation was 82% on room air. Seems that patient got in the car without her oxygen. When patient arrived, patient was started on 2 L, oxygen saturation improved. Patient states that since she was discharged from the hospital, her breathing has not improved much. Related Data Home Medications Medication Instructions Recorded Confirmed aspirin 81 mg tablet,delayed 81 mg PO BEDTIME 01/10/21 07/21/23 release (Adult Low Dose Aspirin) umeclidinium 62.5 mcg/actuation 1 inh inhalation DAILY 03/31/21 07/21/23 blister powder for inhalation metformin 1,000 mg tablet 1,000 mg PO BID 01/01/23 07/21/23 linaclotide 145 mcg capsule 145 mcg PO DAILY 05/17/23 07/21/23 (Linzess) fluticasone propionate 250 1 inh inhalation BID 07/02/23 07/21/23 mcg/actuation blister powder for inhalation (Flovent Diskus) Previous Rx's Medication Instructions Recorded blood-glucose meter (FreeStyle #1 ea 10/03/21 Lite Meter kit) lancets 28 gauge (FreeStyle #100 ea 01/06/22 Lancets) FreeStyle Lite Strips (blood sugar #100 ea 03/10/22 diagnostic) cholecalciferol (vitamin D3) 50 50 mcg PO DAILY #90 caps 11/25/22 mcg (2,000 unit) capsule metoclopramide HCl 10 mg tablet 10 mg PO TIDAC gastroparesis #90 01/01/23 (Reglan) tabs psyllium husk 0.52 gram capsule 1.04 g (2 x 0.52 gram) PO BID 90 02/02/23 (Fiber Laxative (psyllium husk)) days #360 caps flash glucose sensor (FreeStyle #6 ea 02/19/23 Cristian 2 Sensor kit) flash glucose scanning reader #1 ea 03/26/23 (FreeStyle Cristian 2 Aquilla) losartan 50 mg tablet 50 mg PO DAILY #90 tabs 04/21/23 sitagliptin phosphate 100 mg 100 mg PO DAILY #90 tabs 04/26/23 tablet (Januvia) albuterol sulfate 90 mcg/actuation 2 puff inhalation Q4-6H PRN 05/22/23 aerosol inhaler shortness of breath or wheezing #6.7 grams amitriptyline 25 mg tablet 50 mg (2 x 25 mg) PO BEDTIME 30 06/07/23 days #60 tabs gabapentin 800 mg tablet 800 mg PO TID 30 days #90 tabs 06/07/23 omeprazole 20 mg capsule,delayed 20 mg PO DAILY #90 caps 06/24/23 release rosuvastatin 5 mg tablet 5 mg PO DAILY #90 tabs 06/25/23 amlodipine 5 mg tablet 5 mg PO DAILY #30 tabs 07/08/23 lidocaine 4 % topical patch 1 patch transdermal DAILY #30 ea 07/08/23 (Lidocaine Pain Relief) cefuroxime axetil 500 mg tablet 500 mg PO Q12H #10 tabs 07/21/23 naproxen 500 mg tablet 500 mg PO BID for pain #60 tabs 07/21/23 codeine 10 mg-guaifenesin 100 mg/5 5 ml PO Q6H PRN cough #120 mL 08/01/23 mL oral liquid Allergies Allergy/AdvReac Type Severity Reaction Status Date / Time amoxicillin [AMOXICILLIN] Allergy Intermediate RASH Verified 08/01/23 15:58 Review of Systems 2 Review of Systems: Constitutional : No Weight loss, No Fever, No Chills, No Night Sweats, No Fatigue, No Malaise ENT/Mouth : No Hearing loss, No Ear Pain, No Nasal Congestion, No Sinus Pain, No Hoarseness, No sore throat, No Rhinorrhea, No Swallowing Difficulty Eyes: No Eye Pain, No Swelling, No Redness, No Foreign Body, No Discharge, No Vision Changes Cardiovascular : No Chest Pain, No SOB, No Dyspnea on Exertion, No Orthopnea, No Edema, No Palpitations Respiratory : Coughing more than usual with sputum, a bit more wheezing than usual, continues to smoke Gastrointestinal : No Nausea, No Vomiting, No Diarrhea, No Constipation, No abdominal Pain, No Hematochezia, No Melena Genitourinary : no irregular bleeding, No Dysuria, No Urinary Frequency, No Hematuria, No Urinary Incontinence, No Urgency, No Flank Pain, No Urinary Flow Changes, No Hesitancy Musculoskeletal : Complaining of lower back pain, No joint pain, No Myalgias, No Joint Swelling Skin : No Skin Lesions, No rash Neuro : No Weakness, No Numbness, No Paresthesias, No Loss of Consciousness, No Dizziness, No Headache Psych : No Anxiety/Panic, No Depression, No SI/HI/AH/VH, No Social Issues, Heme/Lymph: No Bruising, No Bleeding,No Lymphadenopathy Endocrine : No Polyuria, No Polydipsia, No Temperature Intolerance PMFSH Past Medical History Medical History Type 2 diabetes mellitus without complication, with no history of insulin use Mixed dyslipidemia Essential hypertension GERD (gastroesophageal reflux disease) Gastroparesis Diastolic CHF with preserved left ventricular function, NYHA class 2 Chronic hypercapnic respiratory failure Type 2 diabetes mellitus with other diabetic kidney complication Type 2 diabetes mellitus without complication, with no history of insulin use Smoker unmotivated to quit Postlaminectomy syndrome of cervical region Seasonal allergic rhinitis Degenerative disc disease, cervical COPD (chronic obstructive pulmonary disease) Postmenopause Dyslipidemia Surgical History H/O cervical discectomy History of esophagogastroduodenoscopy (EGD) Hx of colonoscopy Family History Family History Mother Diabetes Sister Diabetes Mental health disorder Brother Diabetes Father HTN (hypertension) Social History Social History Household Members: Significant Other Housing: House Housing Other:: Mobile Home Do you presently have visiting nurse or other home services: Yes ([employer]) Alcohol intake: former Comment: Commode/ Hi Flow O2 Patient Tobacco Use Status: Current everyday Tobacco user Tobacco use type: Cigarette Cigarette Packs Per Day: 0.5 Cigarettes Per Day: 10 Smoked in Last 30 Days: Yes e-Cigarette/Vaping Use: Currently Using Second Hand Smoke Exposure: Yes Use of substances other than those prescribed or required for medical reasons: No Advance Directives: Yes Advance Directives on File: Yes Advance Directives Date on File: 09/20/21 service: No Current occupational status: unemployed Cognitive needs: No Hearing needs: No Vision needs: Yes Physical Exam 2 Vital Signs: Vital Signs: Last Vital Signs Temp 98.4 F 08/01/23 21:17 Pulse 100 08/01/23 21:17 Resp 20 08/01/23 21:17 BP 141/57 H 08/01/23 21:17 Pulse Ox 86 L 08/01/23 21:17 O2 Del Method Room Air 08/01/23 21:17 O2 Flow Rate 3 08/01/23 19:30 Oxygen Flow Rate 3 08/01/23 17:34 BMI result Body Mass Index 26.1 Const: Other: Appearance: Alert. Oriented X3. No acute distress. Eyes: Pupils equal, round and reactive to light. ENT: Pharynx normal. Neck: Normal inspection. Neck supple. No lymph nodes noted. No crepitus CVS: Normal heart rate and rhythm. Pulses normal. Normal S1 and S2 Respiratory: No respiratory distress. mild bilateral wheezing, decreased air movement, on 2 L of oxygen saturating 92% Abdomen: Soft and nontender. No rigidity. No distention. Skin: Skin warm and dry. Normal skin color. Normal skin turgor. Back: Pain to palpation over paraspinal muscles especially on the right, no specific lower thoracic or upper lumbar spine pain, no palpable step-offs Extremities: No lower extremity edema. No Lacerations. No Rash Neuro: Oriented X 3. No motor deficit. No sensory deficit. Moving all extremities. No slurred speech. CN 2 through 12 grossly intact Psych: calm, cooperative, normal affect Course Course Course Narrative: -when patient arrived to the emergency room, she was not wearing her oxygen which obviously dropped her O2. Patient was started on her usual 2 L, oxygen saturation 92% -all of patient's labs and imaging pending Medications Administered Discontinued Medications Generic Name Dose Route Start Last Admin Trade Name Freq PRN Reason Stop Dose Admin Albuterol Sulfate 2.5 mg/ 0 mg 08/01/23 16:42 12/17/23 16:52 Albuterol/Ipratropium 3 ml INHALE 08/01/23 16:43 1 dose ONCE ONE Administration Piperacillin Sod/Tazobactam 50 mls @ 100 mls/hr 08/01/23 16:19 08/01/23 17:57 Sod 3.375 gm/ Sodium Chloride IV 08/01/23 16:48 Infused ONCE ONE Infusion Sodium Chloride 1,587 mls @ 1,587 mls/hr 08/01/23 16:32 08/01/23 18:29 Ns 30 ml/kg infuse over 1 hr (1587 ml) 08/01/23 17:31 Infused IV Infusion .Q1H STA Methylprednisolone Sodium Succinate 125 mg 08/01/23 16:27 08/01/23 17:07 Methylprednisolone Sod Succ 125 Mg/2 Ml Vial IVPUSH 08/01/23 16:28 125 mg ONCE ONE Administration Nicotine 21 mg 08/01/23 17:38 08/01/23 18:37 Nicotine 21 Mg Patch.Td24 TRANSDERMA 08/01/23 17:39 21 mg ONCE ONE Administration Medical Decision Making Medical Decision Making MDM Narrative: -after patient was put back on her 2 L, oxygen saturation went back to 92%. Patient requested a nebulization treatment which she would get at home. -respiratory gordon, there is no new abnormality. -I discussed the x-rays with the patient, no new findings. Discussed with the patient that if she continues having chronic back pain, she may benefit from physical therapy. -in the meantime, patient requesting also pain and cough medication, discussed with the patient that we can give her syrup with codeine which would help for both, patient agreeable. -patient ready to go home, ambulance booking was offered -throughout her ED stay, patient has been saturating 92% on 2 L. when ambulance came to get hurt. Patient's oxygen saturation dropped to 84% on 2 L. Patient was bumped up to 4 L and it only improved to 6 L. Patient states that she still feels a bit short of breath but nothing beyond her baseline. Patient is not wheezing. It took about 10 minutes for the oxygen saturation on 5 L to return to 88%. I discussed the patient with Dr. Jiménez, patient being admitted. Differential Diagnosis Differential Diagnoses: The differential diagnosis associated with the presentation includes (Musculoskeletal pain, pneumonia, chronic lung disease) Admission/Observation Consideration of admission/observation: Escalation of care including admission/observation considered (Given patient's presentation on arrival, admission was considered.) Consult Healthcare Provider Management of the patient was discussed with: Hospitalist Lab Data MDM Lab Attestation statement: I reviewed the patient's lab results. 08/01/23 16:46 08/01/23 16:46 Labs: Lab Results 08/01/23 08/01/23 08/01/23 Range/Units 16:46 17:13 17:18 WBC 17.9 H (4.8-10.8) X10*3/uL RBC 5.21 (4.20-5.50) X10*6/uL Hgb 14.2 (12.0-16.0) g/dl Hct 46.3 (37.0-47.0) % MCV 88.9 (80.0-98.0) fL MCH 27.3 (27.0-33.0) pg MCHC 30.7 L (31.0-35.0) g/dl RDW 17.5 H (11.0-16.0) % Plt Count 367 (160-400) X10*3/uL MPV 9.9 (9.4-12.3) fL Immature Gran % (Auto) 0.4 (0.0-0.4) % Neut % (Auto) 78.2 H (45-73) % Lymph % (Auto) 14.3 L (20-40) % [place] % (Auto) 5.7 (2-11) % Eos % (Auto) 1.0 (0-4) % Baso % (Auto) 0.4 (0-2) % Lymph # (Auto) 2.6 (1.2-4.9) X10*3/uL [place] # (Auto) 1.0 (0.1-1.2) X10*3/uL Eos # (Auto) 0.2 (0.0-0.4) X10*3/uL Baso # (Auto) 0.1 (0.0-0.2) X10*3/uL Abs Immat Gran (auto) 0.07 H (0.00-0.03) X10*3/uL Absolute Neuts (auto) 14.0 H (2.0-8.3) x10*3/uL Absolute Nucleated RBC 0.000 (0.0-0.012) X10*3/uL Nucleated RBC % (auto) 0.0 (0.0-0.2) /100WBC PT 10.3 L D (11.1-13.3) SEC INR 0.8 L (0.9-1.1) VBG pH 7.37 (7.32-7.43) VBG pCO2 57 mmHg VBG pO2 54 mmHg VBG HCO3 33 H (22-26) mmol/L VBG O2 Saturation 80.0 % VBG Base Excess 6.6 mmol/L Sodium 142 (135-145) mmol/L Potassium 4.3 (3.3-5.1) mmol/L Chloride 100 (96-108) mmol/L Carbon Dioxide 29 (22-29) mmol/L Anion Gap 17 (12-20) BUN 11 (9-16) mg/dL Creatinine 0.55 (0.5-1.4) mg/dL Estim Creat Clear Calc 71.8 Estimated GFR > 60 Random Glucose 109 (60-115) mg/dL Lactic Acid 2.1 H* (0.5-2.0) mmol/L Lactic Acid F/U @ 2Hr (0.5-2.0) mmol/L Calcium 10.9 H D (8.4-10.2) mg/dL Total Bilirubin 0.3 (0.0-1.0) mg/dL Direct Bilirubin 0.1 (0.0-0.5) mg/dL AST 12 (5-31) U/L ALT 9 (0-31) U/L Alkaline Phosphatase 138 H (39-117) U/L Troponin I High Sens 5.0 (<3.5-17.0) ng/L B-Natriuretic Peptide < 10 (<100) pg/mL Total Protein 8.5 H (6.5-8.0) g/dL Albumin 4.9 (3.5-5.0) g/dL COVID-19 (JN) Negative (Negative) COVID-19 Clin Com See Note Influenza Type A (VERN) Negative (Negative) Influenza Type B (VERN) Negative (Negative) Influenza A & B Note See Note 08/01/23 Range/Units 19:53 WBC (4.8-10.8) X10*3/uL RBC (4.20-5.50) X10*6/uL Hgb (12.0-16.0) g/dl Hct (37.0-47.0) % MCV (80.0-98.0) fL MCH (27.0-33.0) pg MCHC (31.0-35.0) g/dl RDW (11.0-16.0) % Plt Count (160-400) X10*3/uL MPV (9.4-12.3) fL Immature Gran % (Auto) (0.0-0.4) % Neut % (Auto) (45-73) % Lymph % (Auto) (20-40) % [place] % (Auto) (2-11) % Eos % (Auto) (0-4) % Baso % (Auto) (0-2) % Lymph # (Auto) (1.2-4.9) X10*3/uL [place] # (Auto) (0.1-1.2) X10*3/uL Eos # (Auto) (0.0-0.4) X10*3/uL Baso # (Auto) (0.0-0.2) X10*3/uL Abs Immat Gran (auto) (0.00-0.03) X10*3/uL Absolute Neuts (auto) (2.0-8.3) x10*3/uL Absolute Nucleated RBC (0.0-0.012) X10*3/uL Nucleated RBC % (auto) (0.0-0.2) /100WBC PT (11.1-13.3) SEC INR (0.9-1.1) VBG pH (7.32-7.43) VBG pCO2 mmHg VBG pO2 mmHg VBG HCO3 (22-26) mmol/L VBG O2 Saturation % VBG Base Excess mmol/L Sodium (135-145) mmol/L Potassium (3.3-5.1) mmol/L Chloride (96-108) mmol/L Carbon Dioxide (22-29) mmol/L Anion Gap (12-20) BUN (9-16) mg/dL Creatinine (0.5-1.4) mg/dL Estim Creat Clear Calc Estimated GFR Random Glucose (60-115) mg/dL Lactic Acid (0.5-2.0) mmol/L Lactic Acid F/U @ 2Hr 2.7 H* (0.5-2.0) mmol/L Calcium (8.4-10.2) mg/dL Total Bilirubin (0.0-1.0) mg/dL Direct Bilirubin (0.0-0.5) mg/dL AST (5-31) U/L ALT (0-31) U/L Alkaline Phosphatase (39-117) U/L Troponin I High Sens (<3.5-17.0) ng/L B-Natriuretic Peptide (<100) pg/mL Total Protein (6.5-8.0) g/dL Albumin (3.5-5.0) g/dL COVID-19 (JN) (Negative) COVID-19 Clin Com Influenza Type A (VERN) (Negative) Influenza Type B (VERN) (Negative) Influenza A & B Note Independent Interpretation I performed an independent interpretation of an: Plain X-Ray Radiology Impression Discussion of test interpretation with radiology: I have reviewed the radiologist's reading. Radiologist Impression: Chest: Mild hyperinflated lung field associated with prominent bronchovascular markings, appear similar including presumed pleuroparenchymal scar at right lung base, unchanged since 07/15/2023. Heart and mediastinal silhouette is within normal limit. No evidence of any pleural effusion or pneumothorax. Overall no significant change. Lumbosacral spine shows rotatory mid lumbar scoliosis, mild diffuse osteopenia and mild multilevel degenerative spondylosis. The posterior appendages are intact. The paraspinal soft tissues are unremarkable. Incidental note is made of diffuse calcific atherosclerotic disease of the aorta. Thoracic spine: Moderate diffuse osteopenia. The heights, alignment of the thoracic vertebrae appear within normal limits. The posterior appendages are intact. The paraspinal soft tissues are unremarkable. Incidental note is made of postsurgical changes of anterior intervertebral disc fusion at C5-C6 with intact hardware. Critical Care Time Critical Care Time Critical Care Time: Yes Total Critical Care Time: 60 Attestation: I have personally provided critical care time. Time includes review of lab data, radiology results, discussion with consultants, and monitoring for potential decompensation. Intervention performed as documented. Discharge Plan Discharge Clinical Impression: Chronic lung disease, Musculoskeletal back pain Patient Disposition: Admitted As Inpatient Instructions: Chronic Bronchitis (ED), Low Back Strain (ED) Additional Instructions: Please follow-up with your primary care physician tomorrow. If you have any worsening or new symptoms, please return to the emergency room or call 911 Prescriptions: New codeine-guaifenesin 10-100 mg/5 mL liquid 5 ml PO Q6H PRN (Reason: cough) Qty: 120 0RF No Action (DME) lancets [FreeStyle Lancets] 28 gauge misc See Rx Instructions .Route Qty: 100 5RF Rx Instructions: As directed twice a day AC (DME) FreeStyle Lite Strips Strip See Rx Instructions .Route Qty: 100 0RF Rx Instructions: check fasting blood sugar twice a day before meals cholecalciferol (vitamin D3) 50 mcg (2,000 unit) capsule 50 mcg PO DAILY Qty: 90 3RF psyllium husk [Fiber Laxative (psyllium husk)] 0.52 gram capsule 1.04 g PO BID 90 Days Qty: 360 3RF (DME) FreeStyle Cristian 2 Sensor Kit See Rx Instructions .Route Qty: 6 3RF Rx Instructions: Test blood sugar 4 times per day (DME) FreeStyle Cristian 2 Aquilla Misc See Rx Instructions .Route Qty: 1 0RF Rx Instructions: test blood sugar 4 times per day losartan 50 mg tablet 50 mg PO DAILY Qty: 90 1RF Januvia 100 mg tablet 100 mg PO DAILY Qty: 90 1RF omeprazole 20 mg capsule,delayed release(DR/EC) 20 mg PO DAILY Qty: 90 2RF rosuvastatin 5 mg tablet 5 mg PO DAILY Qty: 90 1RF naproxen 500 mg tablet 500 mg PO BID Qty: 60 0RF Flovent Diskus 250 mcg/actuation blister with device 1 inh INHALATION BID lidocaine [Lidocaine Pain Relief] 4 % Adhesive Patch,Medicated 1 patch transdermal DAILY Qty: 30 0RF Protocol: Apply to: Apply to: anterior chest wal amlodipine 5 mg Tablet 5 mg PO DAILY Qty: 30 0RF Protocol: Hold for SBP< HOLD for SBP < : 90 Linzess 145 mcg capsule 145 mcg PO DAILY albuterol sulfate 90 mcg/actuation HFA aerosol inhaler 2 puff inhalation Q4-6H PRN (Reason: shortness of breath or wheezing) Qty: 6.7 2RF umeclidinium 62.5 mcg/actuation blister with device 1 inh inhalation DAILY Rx Instructions: Encruse aspirin [Adult Low Dose Aspirin] 81 mg tablet,delayed release (DR/EC) 81 mg PO BEDTIME (DME) blood-glucose meter [FreeStyle Lite Meter] Kit See Rx Instructions .Route Qty: 1 0RF Rx Instructions: As directed twice a day before meals cefuroxime axetil 500 mg tablet 500 mg PO Q12H Qty: 10 0RF metformin 1,000 mg tablet 1,000 mg PO BID metoclopramide HCl [Reglan] 10 mg tablet 10 mg PO TIDAC Qty: 90 6RF gabapentin 800 mg tablet 800 mg PO TID 30 Days Qty: 90 6RF amitriptyline 25 mg tablet 50 mg PO BEDTIME 30 Days Qty: 60 6RF
[2023-08-01] MEDS: Albuterol Sulfate 2.5 MG, Albuterol/Iprat 2.5/0.5MG 3 ML 3 ML INHALE (16:52)
[2023-08-01 16:54] LABS: MANUAL DIFF FLAG NO
[2023-08-01 17:04] LABS: INTERNATIONAL NORM RATIO 0.8 (0.9-1.1); Prothrombin Time 10.3 SEC (11.1-13.3)
[2023-08-01] MEDS: methylPREDNISolone Sod Succ 125 MG/2 ML VIAL IVPUSH (17:07)
[2023-08-01 17:08] LABS: Basophils Absolute Auto 0.1 X10*3/uL (0.0-0.2); Basophils Percent Auto 0.4 % (0-2); Eosinophils Absolute Auto 0.2 X10*3/uL (0.0-0.4); Hematocrit 46.3 % (37.0-47.0); Hemoglobin 14.2 g/dl (12.0-16.0); Imm Gran Abs Auto 0.07 X10*3/uL (0.00-0.03); Imm Gran Pct Auto 0.4 % (0.0-0.4); Lymphocytes Absolute Auto 2.6 X10*3/uL (1.2-4.9); Lymphocytes Percent Auto 14.3 % (20-40); Mean Corpuscular HGB Conc 30.7 g/dl (31.0-35.0); Mean Corpuscular Hemoglobin 27.3 pg (27.0-33.0); Mean Corpuscular Volume 88.9 fL (80.0-98.0); Mean Platelet Volume 9.9 fL (9.4-12.3); Monocytes Percent Auto 5.7 % (2-11); Neutrophils Percent Auto 78.2 % (45-73); Platelet Count 367 X10*3/uL (160-400); Red Blood Count 5.21 X10*6/uL (4.20-5.50); Red Cell Distribution Width 17.5 % (11.0-16.0); White Blood Count 17.9 X10*3/uL (4.8-10.8)
[2023-08-01] MEDS: Piperacillin Sodium/Tazobactam 3.375 GM in 0.9 % Sodium Chloride 50 ML IV (17:13)
[2023-08-01 17:17] LABS: Alanine Aminotransferase 9 U/L (0-31); Albumin Level 4.9 g/dL (3.5-5.0); Alkaline Phosphatase 138 U/L (39-117); Anion Gap 17 (12-20); Aspartate Amino Transferase 12 U/L (5-31); Bilirubin Direct 0.1 mg/dL (0.0-0.5); Bilirubin Total 0.3 mg/dL (0.0-1.0); Blood Urea Nitrogen 11 mg/dL (9-16); Calcium 10.9 mg/dL (8.4-10.2); Carbon Dioxide 29 mmol/L (22-29); Chloride 100 mmol/L (96-108); Creatinine Clr Calc Pharmacy 71.8; Estimated Glomerular Filt Rate > 60; Glucose Random 109 mg/dL (60-115); Potassium 4.3 mmol/L (3.3-5.1); Sodium 142 mmol/L (135-145); Total Protein 8.5 g/dL (6.5-8.0)
[2023-08-01 17:18] LABS: Lactic Acid 2.1 mmol/L (0.5-2.0)
[2023-08-01 17:21] LABS: B Type Natriuretic Peptide < 10 pg/mL (<100)
[2023-08-01 17:24] LABS: VBG Base Excess 6.6 mmol/L; VBG HCO3 33 mmol/L (22-26); VBG pCO2 57 mmHg; VBG pH 7.37 (7.32-7.43); VBG pO2 54 mmHg
[2023-08-01 17:25] LABS: Venous Blood Gas Refer to POC result
[2023-08-01 17:44] LABS: COVID-19 Test Negative (Negative); IDNOW Serial# 08D9AD1C; IDNOW Serial# BCCEAD1C; Influenza A Negative (Negative); Influenza B2 Negative (Negative)
[2023-08-01] MEDS: Nicotine 21 MG PATCH.TD24 TRANSDERMA (18:37)
[2023-08-01 18:54] LABS: Reflex Lactate? Lactic Acid Added
--- NOTE | 2023-08-01 19:46 | PC.NURSE ---
this RN received report from previous RN and is now taking over care. pt is resting comfortably at this time, VSS. pt requested commode, independent to use at bedside.
[2023-08-01 20:11] LABS: ~Lactic Acid-LAB USE ONLY 2.7 mmol/L (0.5-2.0)
--- NOTE | 2023-08-01 21:30 | PC.NURSE ---
EMS here to bring pt home. pt's O2 at 85% on 3L. MD aware. plan of care now on going still
[2023-08-01 21:56] LABS: Reflex Lactate? 2 Y
[2023-08-01 23:15] LABS: ~Lactic Acid-LAB USE ONLY 3.5 mmol/L (0.5-2.0)
--- NOTE | 2023-08-01 23:31 | PC.NURSE ---
assist with bedpan, pt cleaned up and bed changed, resting comfortably at this time
--- NOTE | 2023-08-01 23:48 | PM.IMHP ---
History of Present Illness Date of Service: 08/01/23 Attending physician on admission: Len Jiménez Chief Complaint: Genaralized body aches; Low oxygen saturation Patient is a 63 year old white female with known history of GERD, hypertension, hyperlipidemia, T2DM, COPD on home Oxygen who presented to the emergency room complaining of generalized body aches, back pain (lower thoracic/upper lumbar pain), cough, nasal congestion. She denied any falls. She came to the emergency room without any oxygen and on arrival to the ED, was found to be hypoxic with oxygen saturation of 82% on room air. This improved with supplemental oxygen. She denies any associated cough, fevers or chills. However, when she was about to be discharged home, her oxygen saturations dropped to 82% and so a decision was made to admit her for further care. Review of Systems Review of Systems: Yes all other systems are reviewed and are negative [facility] Medical History Type 2 diabetes mellitus without complication, with no history of insulin use Mixed dyslipidemia Essential hypertension GERD (gastroesophageal reflux disease) Gastroparesis Diastolic CHF with preserved left ventricular function, NYHA class 2 Chronic hypercapnic respiratory failure Type 2 diabetes mellitus with other diabetic kidney complication Type 2 diabetes mellitus without complication, with no history of insulin use Smoker unmotivated to quit Postlaminectomy syndrome of cervical region Seasonal allergic rhinitis Degenerative disc disease, cervical COPD (chronic obstructive pulmonary disease) Postmenopause Dyslipidemia Functional capacity: independent ambulation Family History Mother Diabetes Sister Diabetes Mental health disorder Brother Diabetes Father HTN (hypertension) Surgical History H/O cervical discectomy History of esophagogastroduodenoscopy (EGD) Hx of colonoscopy Social History Household Members: Significant Other Housing: House Housing Other:: Mobile Home Do you presently have visiting nurse or other home services: Yes ([facility]ING [employer]) Alcohol intake: former Comment: Commode/ Hi Flow O2 Patient Tobacco Use Status: Current everyday Tobacco user Tobacco use type: Cigarette Cigarette Packs Per Day: 0.5 Cigarettes Per Day: 10 Smoked in Last 30 Days: Yes e-Cigarette/Vaping Use: Currently Using Second Hand Smoke Exposure: Yes Use of substances other than those prescribed or required for medical reasons: No Advance Directives: Yes Advance Directives on File: Yes Advance Directives Date on File: 09/20/21 service: No Current occupational status: unemployed Cognitive needs: No Hearing needs: No Vision needs: Yes Meds Allergies Allergy/AdvReac Type Severity Reaction Status Date / Time amoxicillin [AMOXICILLIN] Allergy Intermediate RASH Verified 08/01/23 15:58 Home Medications Medication Instructions Recorded Confirmed Last Taken Type aspirin 81 mg tablet,delayed 81 mg PO BEDTIME 01/10/21 08/02/23 07/01/23 History release (Adult Low Dose Aspirin) umeclidinium 62.5 mcg/actuation 1 inh inhalation DAILY 03/31/21 08/02/23 07/02/23 History blister powder for inhalation metformin 1,000 mg tablet 1,000 mg PO BID 01/01/23 08/02/23 07/02/23 History linaclotide 145 mcg capsule 145 mcg PO DAILY 05/17/23 08/02/23 07/02/23 History (Linzess) fluticasone propionate 250 1 inh inhalation BID 07/02/23 08/02/23 07/02/23 History mcg/actuation blister powder for inhalation (Flovent Diskus) lidocaine 4 % topical patch 1 patch transdermal DAILY PRN Pain 08/02/23 08/02/23 Unknown History (Lidocaine Pain Relief) Physical Exam Vital Signs and Narrative: Vital Signs: Last Vital Signs Temp 97.2 F 08/01/23 23:32 Pulse 94 08/01/23 23:32 Resp 20 08/01/23 23:32 BP 144/66 H 08/01/23 23:32 Pulse Ox 88 L 08/01/23 23:32 O2 Del Method Nasal Cannula 08/01/23 23:32 O2 Flow Rate 4 08/01/23 23:32 Oxygen Flow Rate 3 08/01/23 17:34 BMI result Body Mass Index 26.1 General: Ill appearing elderly WF in bed. Awake, alert and oriented x 4. No apparent distress Eyes: No pallor or jaundice. PERRLA, EOMI HENT: Moist oral mucus membranes. No oropharyngeal lesions. Neck: Supple. No cervical adenopathy. No JVD Cardiovascular: Regular rate and rhythm. Normal heart sounds. No murmurs, rubs or gallops. No JVD. No peripheral edema. Respiratory: Decreased breath sounds but with normal respiratory effort with no accessory muscle use. Gastrointestinal: Abdomen is soft, non-tender, non-distended. NABS. No hepatosplenomegaly Extremities: No edema. No calf tenderness. Good peripheral pulses Skin: Warm/Dry. No rashes. No mottling. Capillary refill is < 2 seconds Neurological: AAOx4. Intact speech & cognition. Normal gait & balance. CN II - XII grossly intact but not individually tested. No motor or sensory deficits Hematologic: No bleeding. No ecchymosis. No swollen or tender lymph nodes. Psychiatric: Cooperative. Appropriate mood and affect. Results Labs 08/01/23 16:46 08/01/23 16:46 Labs: Laboratory Results - last 24 hr 08/01/23 08/01/23 08/01/23 16:46 17:13 17:18 MCV 88.9 MCH 27.3 MCHC 30.7 L RDW 17.5 H Plt Count 367 MPV 9.9 Immature Gran % (Auto) 0.4 Neut % (Auto) 78.2 H Lymph % (Auto) 14.3 L Meriwether % (Auto) 5.7 Eos % (Auto) 1.0 Baso % (Auto) 0.4 Lymph # (Auto) 2.6 Meriwether # (Auto) 1.0 Eos # (Auto) 0.2 Baso # (Auto) 0.1 Abs Immat Gran (auto) 0.07 H Absolute Neuts (auto) 14.0 H Absolute Nucleated RBC 0.000 Nucleated RBC % (auto) 0.0 PT 10.3 L D INR 0.8 L VBG pH 7.37 VBG pCO2 57 VBG pO2 54 VBG HCO3 33 H VBG O2 Saturation 80.0 VBG Base Excess 6.6 Anion Gap 17 Estim Creat Clear Calc 71.8 Estimated GFR > 60 Random Glucose 109 Lactic Acid 2.1 H* Lactic Acid F/U @ 2Hr Lactic Acid F/U @ 4Hr Calcium 10.9 H D Total Bilirubin 0.3 Direct Bilirubin 0.1 AST 12 ALT 9 Alkaline Phosphatase 138 H B-Natriuretic Peptide < 10 Total Protein 8.5 H Albumin 4.9 COVID-19 (JN) Negative COVID-19 Clin Com See Note Influenza Type A (VERN) Negative Influenza Type B (VERN) Negative Influenza A & B Note See Note 08/01/23 08/01/23 19:53 22:52 MCV MCH MCHC RDW Plt Count MPV Immature Gran % (Auto) Neut % (Auto) Lymph % (Auto) Meriwether % (Auto) Eos % (Auto) Baso % (Auto) Lymph # (Auto) Meriwether # (Auto) Eos # (Auto) Baso # (Auto) Abs Immat Gran (auto) Absolute Neuts (auto) Absolute Nucleated RBC Nucleated RBC % (auto) PT INR VBG pH VBG pCO2 VBG pO2 VBG HCO3 VBG O2 Saturation VBG Base Excess Anion Gap Estim Creat Clear Calc Estimated GFR Random Glucose Lactic Acid Lactic Acid F/U @ 2Hr 2.7 H* Lactic Acid F/U @ 4Hr 3.5 H* Calcium Total Bilirubin Direct Bilirubin AST ALT Alkaline Phosphatase B-Natriuretic Peptide Total Protein Albumin COVID-19 (JN) COVID-19 Clin Com Influenza Type A (VERN) Influenza Type B (VERN) Influenza A & B Note ECG Interpretation: Sinus tachycardic with non-specific ST abnormality Imaging Radiologist's Impressions: Impressions Chest Lumbar Spine and Thoracic Spine X-Ray 08/01/23 17:54 IMPRESSION: 1. The chest radiograph shows no radiographic evidence of acute cardiopulmonary disease. 2. The radiographs of the thoracic and lumbosacral spine shows rotatory mid lumbar moderate scoliosis, mild diffuse osteopenia and mild multilevel degenerative spondylosis and postsurgical changes of anterior cervical fusion at C5-C6 with intact hardware. Assessment and Plan (1) COPD with acute exacerbation: Status: Acute (2) Acute respiratory failure with hypoxemia: Status: Acute (3) Smoker unmotivated to quit: Status: Acute Plan 63 year old white female with known history of GERD, hypertension, hyperlipidemia, T2DM, COPD on home Oxygen here with: 1. COPD with acute exacerbation - noted with hypoxemia - admit and start solu medrol, duo nebs and Albuterol PRN - start on Azithromycin for its pleotropic effects 2. Acute on hypoxic respiratory failure - likely 2/2 COPD - treat as noted above 3. Type 2 diabetes mellitus - resume Metformin& Sitagliptin 4. Elevated lactic acid - likely secondary to Albuterol updrafts - not due to an infectious source - no need to continue monitoring 5. GERD - resume Omeprazole 6. Type 2 Diabetes Mellitus - with hyperglycemia - start on SSI coverage - Total time managing care of this patient today: 75 minutes. Quality Stroke Does the patient have a stroke diagnosis?: No VTE Prior VTE?: No VTE Risk Level:: Medical - moderate - high VTE Device Contraindication: N/A - Device Ordered VTE Drug Contraindication: N/A - Med Ordered
[2023-08-02] VITALS (12 sets, daily range): BP systolic 146–175; BP diastolic 56–90; PULSE 91–101; RESP 12–23; TEMP 36.1–36.7; O2SAT 88–98
[2023-08-02] MEDS: Albuterol/Iprat 2.5/0.5MG 3 ML AMPUL.NEB INHALE ×5 (00:05→20:36)
[2023-08-02] MEDS: Azithromycin 500 MG in 0.9 % Sodium Chloride 250 ML 125 MG IV (00:59)
--- NOTE | 2023-08-02 01:14 | PC.NURSE ---
IV removed prior to pt beign discharged earlier. pt is now admitted, abx was delayed d/t multiple attempts to reestablish IV access. IV placed to R bicep, abx started
[2023-08-02 01:52] LABS: Glucose, Whole Blood 306 mg/dL (60-115)
--- NOTE | 2023-08-02 02:05 | PC.NURSE ---
med rec complete
[2023-08-02] MEDS: Insulin Lispro 100 UNIT/ML 3 ML VIAL 8 UNIT SUBCUT (02:08)
--- NOTE | 2023-08-02 03:38 | PC.NURSE ---
pt using bedside commode independently
[2023-08-02] MEDS: Albuterol Sulfate (0.083%) 2.5 MG/3 ML VIAL.NEB INHALE (05:51)
--- NOTE | 2023-08-02 05:57 | PC.NURSE ---
respiratory at bedside for breathing treatment
[2023-08-02 06:16] LABS: MANUAL DIFF FLAG NO
[2023-08-02 06:20] LABS: Basophils Percent Auto 0.2 % (0-2); Hematocrit 38.4 % (37.0-47.0); Hemoglobin 11.8 g/dl (12.0-16.0); Imm Gran Abs Auto 0.11 X10*3/uL (0.00-0.03); Imm Gran Pct Auto 0.6 % (0.0-0.4); Lymphocytes Absolute Auto 1.2 X10*3/uL (1.2-4.9); Lymphocytes Percent Auto 6.2 % (20-40); Mean Corpuscular HGB Conc 30.7 g/dl (31.0-35.0); Mean Corpuscular Hemoglobin 27.4 pg (27.0-33.0); Mean Corpuscular Volume 89.1 fL (80.0-98.0); Mean Platelet Volume 9.7 fL (9.4-12.3); Monocytes Absolute Auto 0.7 X10*3/uL (0.1-1.2); Monocytes Percent Auto 3.9 % (2-11); Neutrophils Absolute Auto 16.9 x10*3/uL (2.0-8.3); Neutrophils Percent Auto 89.1 % (45-73); Platelet Count 328 X10*3/uL (160-400); Red Blood Count 4.31 X10*6/uL (4.20-5.50); Red Cell Distribution Width 17.5 % (11.0-16.0); White Blood Count 18.9 X10*3/uL (4.8-10.8)
[2023-08-02 06:32] LABS: Anion Gap 15 (12-20); Blood Urea Nitrogen 9 mg/dL (9-16); Calcium 10.1 mg/dL (8.4-10.2); Carbon Dioxide 27 mmol/L (22-29); Chloride 105 mmol/L (96-108); Creatinine Clr Calc Pharmacy 82.4; Estimated Glomerular Filt Rate > 60; Glucose Random 159 mg/dL (60-115); Magnesium 1.6 mg/dL (1.6-2.6); Potassium 3.8 mmol/L (3.3-5.1); Sodium 143 mmol/L (135-145)
[2023-08-02 07:11] LABS: Glucose, Whole Blood 143 mg/dL (60-115)
--- NOTE | 2023-08-02 07:15 | PC.NURSE ---
poc 143 no insulin coverage per mar.
--- NOTE | 2023-08-02 07:47 | MHC.CM.PN ---
Attempted to meet with patient in regards to discharge planning. Nursing care currently be provided. Will attempt to meet again. Continue to monitor for d/c needs.
[2023-08-02 09:30] LABS: Glucose, Whole Blood 257 mg/dL (60-115)
[2023-08-02] MEDS: ondansetron HCL 4 MG/2 ML VIAL IVPUSH (09:37)
[2023-08-02] MEDS: methylPREDNISolone Sod Succ 40 MG/ML VIAL IVPUSH ×2 (09:40→21:25)
[2023-08-02] MEDS: Magnesium Sulfate/D5W 1 GM/100 ML PIGGYBACK IV (09:41)
[2023-08-02] MEDS: 0.9 % Sodium Chloride Flush 3 ML SYRINGE IVFLUSH ×3 (09:47→21:24)
--- NOTE | 2023-08-02 10:30 | MHC.CM.PN ---
PATIENT IS FROM HOME W/ PARTNER JAMES AMBULATES INDEPENDENTLY AND HAS A CABLE PULLER THROUGH [facility] FOR ADL'S AND LIGHT HOUSEKEEPING, UNSURE HOW MANY HOURS MAYBE 3 2L HOME O2 VIA [facility] HCP: UPDATED HCP COMPLETED W/ PATIENT NAMED AGENTS 1) PARTNER JAMES [phone], 2) SON CRISTÓBAL [phone] PCP: ASIF PHAN MD DCP: PENDING, WEAK AND WILL LIKELY REQUIRE PT EVAL. HAS PREVIOUSLY BEEN TO STR AT [place], BUT WOULD NOT WISH TO RETURN, PREFERS [facility]. HAS ALSO USED [facility] IN THE PAST AND WOULD LIKE TO USE THEM AGAIN IF RECOMMENDED. IF HOME, PARTNER CAN TRANSPORT. CM WILL CONTINUE TO FOLLOW.
[2023-08-02 11:29] LABS: Glucose, Whole Blood 231 mg/dL (60-115)
[2023-08-02] MEDS: Insulin Lispro 100 UNIT/ML 3 ML VIAL SUBCUT ×3 (12:19→21:30)
[2023-08-02] MEDS: Docusate Sodium 100 MG CAPSULE PO ×2 (12:20→21:21)
[2023-08-02] MEDS: Enoxaparin Sodium 40 MG/0.4 ML SYRINGE SUBCUT (12:20)
[2023-08-02] MEDS: Potassium Chloride Packet 20 MEQ PACKET PO (13:05)
--- NOTE | 2023-08-02 13:34 | PHA.MEDREC ---
Pharmacy Consult ? Medication Reconciliation Pharmacy has completed the medication reconciliation. spoke with patient to confirm medications.
--- NOTE | 2023-08-02 13:43 | PM.EVENT ---
Event Note Date of Service: 08/02/23 Event Note: Patient seen examined the hospital team seen examined: sob seems somewhat improving , no cough feels slightly lightheadness physical exam: unchanged from h&p. assessment and plan:as per h&P [id number] to get bp meds copd excerebation-continue nebs ,steriods ,antibiotics. Time Spent With Patient Time: Total time managing care of this patient today ____ minutes.
[2023-08-02] MEDS: Atorvastatin Calcium 20 MG TABLET PO (16:09)
[2023-08-02] MEDS: Gabapentin 400 MG CAPSULE 800 MG PO ×2 (16:09→21:20)
[2023-08-02] MEDS: amLODIPine Besylate 5 MG TABLET PO (16:09)
[2023-08-02] MEDS: Losartan Potassium 50 MG TABLET PO (16:10)
[2023-08-02] MEDS: Cholecalciferol (Vitamin D3) 25 MCG TABLET 50 MCG PO (16:10)
[2023-08-02 16:49] LABS: Glucose, Whole Blood 249 mg/dL (60-115)
[2023-08-02 20:25] LABS: Glucose, Whole Blood 159 mg/dL (60-115)
[2023-08-02] MEDS: Fluticasone Propionate 250 MCG BLST.W.DEV 1 PUFF INHALE (20:33)
[2023-08-02] MEDS: Azithromycin 250 MG TABLET PO (21:20)
[2023-08-02] MEDS: Aspirin Enteric Coated 81 MG TABLET.DR PO (21:21)
[2023-08-02] MEDS: Amitriptyline HCl 50 MG TABLET PO (21:22)
[2023-08-03 03:00] VITALS: BP 138/64; PULSE 90; RESP 18; TEMP 36; O2SAT 92
[2023-08-03] MEDS: Omeprazole 20 MG CAPSULE.DR PO (06:06)
--- NOTE | 2023-08-03 07:32 | HO.PM.IMPN ---
Subjective Subjective Date of Service: 08/02/23 Interval History: sob Review of Systems sob-feeling little improving no chest pain Physical Exam Vital Signs: Vital Signs: Last Vital Signs Oxygen Flow Rate 3 08/01/23 17:34 BMI result Body Mass Index 26.1 Lungs: diffuse expiratory wheezes, diminished air entry at bases, prolonged expiratory phase Heart: regular, no murmurs Abd: soft, non-tender, non-distended Ext: no edema Skin: warm/well-perfused Neuro: alert and oriented x3, no focal findings Psych: appropriate affect vitals from 08/02/23 reviewed. Objective Data Active Medications Acetaminophen (Acetaminophen 325 Mg Tablet) 650 mg PO Q6H PRN PRN Reason: Pain, Mild (Pain Scale 1-3) Al Hydroxide/Mg Hydroxide (Magnesium Hydrox/Alum Hydrox 30 Ml Oral.Susp) 30 ml PO Q4H PRN PRN Reason: Heartburn/Nausea Albuterol Sulfate (Albuterol Sulfate (0.083%) 2.5 Mg/3 Ml Vial.Neb) 2.5 mg INHALE 6XD PRN PRN Reason: Shortness of Breath/Wheezing Albuterol/Ipratropium (Albuterol/Iprat 2.5/0.5mg 3 Ml Ampul.Neb) 3 ml INHALE RQID [facility] Last Admin: 08/02/23 20:36 Dose: 3 ml Documented By: LEV Albuterol/Ipratropium (Albuterol/Iprat 2.5/0.5mg 3 Ml Ampul.Neb) 3 ml INHALE Q3H PRN PRN Reason: sob Amitriptyline HCl (Amitriptyline Hcl 50 Mg Tablet) 50 mg PO BEDTIME [facility] Last Admin: 08/02/23 21:22 Dose: 50 mg Documented By: TAZ Amlodipine Besylate (Amlodipine Besylate 5 Mg Tablet) 5 mg PO DAILY [facility]; Protocol Last Admin: 08/02/23 16:09 Dose: 5 mg Documented By: NIRAV Aspirin (Aspirin Enteric Coated 81 Mg Tablet.Dr) 81 mg PO BEDTIME [facility] Last Admin: 08/02/23 21:21 Dose: 81 mg Documented By: TAZ Atorvastatin Calcium (Atorvastatin Calcium 20 Mg Tablet) 20 mg PO DAILY [facility] Last Admin: 08/02/23 16:09 Dose: 20 mg Documented By: NIRAV Azithromycin (Azithromycin 250 Mg Tablet) 250 mg PO BEDTIME [facility] Last Admin: 08/02/23 21:20 Dose: 250 mg Documented By: TAZ Dextrose (Dextrose 50 % 25 Gm/50 Ml Syringe) 25 gm IVPUSH Q15M PRN; Protocol PRN Reason: per Hypoglycemia Standing Ord. Docusate Sodium (Docusate Sodium 100 Mg Capsule) 100 mg PO BID [facility] Last Admin: 08/02/23 21:21 Dose: 100 mg Documented By: TAZ Enoxaparin Sodium (Enoxaparin Sodium 40 Mg/0.4 Ml Syringe) 40 mg SUBCUT Q24H [facility] Last Admin: 08/02/23 12:20 Dose: 40 mg Documented By: NIRAV Fluticasone Propionate (Fluticasone Propionate 250 Mcg Blst.W.Dev) 1 puff INHALE RBID [facility] Last Admin: 08/02/23 20:33 Dose: 1 puff Documented By: LEV Gabapentin (Gabapentin 400 Mg Capsule) 800 mg PO TID [facility] Last Admin: 08/02/23 21:20 Dose: 800 mg Documented By: TAZ Glucose (Glucose Gel 15 Gm Gel..Gram.) 15 gm PO Q15M PRN; Protocol PRN Reason: per Hypoglycemia Standing Ord. Insulin Human Lispro (Insulin Lispro 100 Unit/Ml 3 Ml Vial) 0 unit SUBCUT QIDACHS [facility]; Protocol Last Admin: 08/02/23 21:30 Dose: 2 unit Documented By: TAZ Losartan Potassium (Losartan Potassium 50 Mg Tablet) 50 mg PO DAILY [facility]; Protocol Last Admin: 08/02/23 16:10 Dose: 50 mg Documented By: NIRAV Melatonin (Melatonin 3 Mg Tablet) 6 mg PO BEDTIME PRN PRN Reason: Insomnia Methylprednisolone Sodium Succinate (Methylprednisolone Sod Succ 40 Mg/Ml Vial) 40 mg IVPUSH BID [facility] Last Admin: 08/02/23 21:25 Dose: 40 mg Documented By: TAZ Nicotine (Nicotine 14 Mg Patch.Td24) 14 mg TRANSDERMA DAILY [facility] Omeprazole (Omeprazole 20 Mg Capsule.Dr) 20 mg PO DAILY@0630 [facility] Last Admin: 08/03/23 06:06 Dose: 20 mg Documented By: TAZ Ondansetron HCl (Ondansetron Hcl 4 Mg/2 Ml Vial) 4 mg IVPUSH Q8H PRN PRN Reason: Nausea and Vomiting Last Admin: 08/02/23 09:37 Dose: 4 mg Documented By: NIRAV Sodium Chloride (0.9 % Sodium Chloride Flush 3 Ml Syringe) 3 ml IVFLUSH QSHIFT [facility] Last Admin: 08/02/23 21:24 Dose: 3 ml Documented By: TAZ Vitamin D (Cholecalciferol (Vitamin D3) 25 Mcg Tablet) 50 mcg PO DAILY [facility] Last Admin: 08/02/23 16:10 Dose: 50 mcg Documented By: NIRAV Labs 08/02/23 06:07 08/02/23 06:07 Labs: Laboratory Results - last 24 hr 08/02/23 08/02/23 08/02/23 09:15 11:21 15:48 POC Glucose 257 H 231 H 249 H 08/02/23 20:01 POC Glucose 159 H Microbiology Microbiology Results: Microbiology 08/01/23 17:13 Blood Culture - Preliminary Blood - Venous No growth after 24 hours. 08/01/23 16:46 Blood Culture - Preliminary Blood - Venous No growth after 24 hours. Assessment and Plan (1) Acute respiratory failure with hypoxemia: Status: Acute (2) COPD with acute exacerbation: Status: Acute Plan date of service 08/02/23 day2 63yo F with chronic hypoxic respiratory failure due to COPD on 2L home O2, ongoing tobacco abuse, DM2 with gastroparesis, and HTN who presented sob. acute on chronic hypoxic respiratory failure due to COPD with acute exacerbation sob similar to yesterday ,sob with minimun excersion,difficult to talk due to sob. leucocytosis possible ch elevated . - noted with hypoxemia - admit and start solu medrol, duo nebs and Albuterol PRN - start on Azithromycin for its pleotropic effects Type 2 diabetes mellitus - resume Metformin& Sitagliptin acute lactic acidosis - likely secondary to Albuterol updrafts - not due to an infectious source - no need to continue monitoring GERD - resume Omeprazole Type 2 Diabetes Mellitus with hyperglycemia -possible due to steriods use . - with hyperglycemia - start on SSI coverage ongoing inpatient need :acute on chronic hypoxic respiratory failure due to COPD with acute exacerbation-due to need of oxygen(acute decompensation on ch resp failure sec to copd), nebs and steriods Quality Stroke Does the patient have a stroke diagnosis?: No VTE Prior VTE?: No VTE Risk Level:: Medical - moderate - high VTE Device Contraindication: N/A - Device Ordered VTE Drug Contraindication: N/A - Med Ordered
[2023-08-03] MEDS: Albuterol/Iprat 2.5/0.5MG 3 ML AMPUL.NEB INHALE ×3 (07:37→19:45)
[2023-08-03] MEDS: Fluticasone Propionate 250 MCG BLST.W.DEV 1 PUFF INHALE ×2 (07:37→19:45)
[2023-08-03 07:38] VITALS: PULSE 90; RESP 18; O2SAT 91
[2023-08-03 07:49] LABS: Glucose, Whole Blood 199 mg/dL (60-115)
[2023-08-03 07:53] VITALS: BP 141/69; PULSE 81; RESP 18; TEMP 36.4; O2SAT 92
[2023-08-03] MEDS: Insulin Lispro 100 UNIT/ML 3 ML VIAL SUBCUT ×4 (08:26→22:49)
[2023-08-03] MEDS: Enoxaparin Sodium 40 MG/0.4 ML SYRINGE SUBCUT (08:27)
[2023-08-03] MEDS: Cholecalciferol (Vitamin D3) 25 MCG TABLET 50 MCG PO (08:27)
[2023-08-03] MEDS: 0.9 % Sodium Chloride Flush 3 ML SYRINGE IVFLUSH ×3 (08:27→22:50)
[2023-08-03] MEDS: Atorvastatin Calcium 20 MG TABLET PO (08:27)
[2023-08-03] MEDS: Nicotine 14 MG PATCH.TD24 TRANSDERMA (08:27)
[2023-08-03] MEDS: Gabapentin 400 MG CAPSULE 800 MG PO ×3 (08:28→22:46)
[2023-08-03] MEDS: amLODIPine Besylate 5 MG TABLET PO (08:28)
[2023-08-03] MEDS: Docusate Sodium 100 MG CAPSULE PO ×2 (08:28→22:48)
[2023-08-03] MEDS: Losartan Potassium 50 MG TABLET PO (08:28)
[2023-08-03] MEDS: predniSONE 20 MG TABLET 40 MG PO (08:28)
[2023-08-03 09:51] LABS: Hematocrit 39.6 % (37.0-47.0); Mean Corpuscular HGB Conc 30.3 g/dl (31.0-35.0); Mean Corpuscular Volume 89.2 fL (80.0-98.0); Mean Platelet Volume 9.8 fL (9.4-12.3); Platelet Count 341 X10*3/uL (160-400); Red Blood Count 4.44 X10*6/uL (4.20-5.50); Red Cell Distribution Width 17.9 % (11.0-16.0); White Blood Count 15.8 X10*3/uL (4.8-10.8)
--- NOTE | 2023-08-03 11:22 | HO.PM.IMPN ---
Subjective Subjective Date of Service: 08/03/23 Interval History: copd execerebation Review of Systems sob seems similar ,gets sob with minimum excersion has dry cough ,no fevers Physical Exam Vital Signs: Vital Signs: Last Vital Signs Temp 97.5 F 08/03/23 07:53 Pulse 81 08/03/23 07:53 Resp 18 08/03/23 07:53 BP 141/69 H 08/03/23 07:53 Pulse Ox 92 08/03/23 07:53 O2 Del Method Nasal Cannula 08/03/23 07:53 O2 Flow Rate 3 08/03/23 07:53 Oxygen Flow Rate 3 08/01/23 17:34 BMI result Body Mass Index 26.1 Lungs: diffuse expiratory wheezes, diminished air entry at bases, prolonged expiratory phase Heart: regular, no murmurs Abd: soft, non-tender, non-distended Ext: no edema Skin: warm/well-perfused Neuro: alert and oriented x3, no focal findings Psych: appropriate affect Objective Data Active Medications Acetaminophen (Acetaminophen 325 Mg Tablet) 650 mg PO Q6H PRN PRN Reason: Pain, Mild (Pain Scale 1-3) Al Hydroxide/Mg Hydroxide (Magnesium Hydrox/Alum Hydrox 30 Ml Oral.Susp) 30 ml PO Q4H PRN PRN Reason: Heartburn/Nausea Albuterol Sulfate (Albuterol Sulfate (0.083%) 2.5 Mg/3 Ml Vial.Neb) 2.5 mg INHALE 6XD PRN PRN Reason: Shortness of Breath/Wheezing Albuterol/Ipratropium (Albuterol/Iprat 2.5/0.5mg 3 Ml Ampul.Neb) 3 ml INHALE RQID COUNT INCLUDES THE [facility] Last Admin: 08/03/23 07:37 Dose: 3 ml Documented By: ASHLEIGH Albuterol/Ipratropium (Albuterol/Iprat 2.5/0.5mg 3 Ml Ampul.Neb) 3 ml INHALE Q3H PRN PRN Reason: sob Amitriptyline HCl (Amitriptyline Hcl 50 Mg Tablet) 50 mg PO BEDTIME COUNT INCLUDES THE [facility] Last Admin: 08/02/23 21:22 Dose: 50 mg Documented By: TAZ Amlodipine Besylate (Amlodipine Besylate 5 Mg Tablet) 5 mg PO DAILY COUNT INCLUDES THE [facility]; Protocol Last Admin: 08/03/23 08:28 Dose: 5 mg Documented By: NIRAV Aspirin (Aspirin Enteric Coated 81 Mg Tablet.Dr) 81 mg PO BEDTIME COUNT INCLUDES THE [facility] Last Admin: 08/02/23 21:21 Dose: 81 mg Documented By: TAZ Atorvastatin Calcium (Atorvastatin Calcium 20 Mg Tablet) 20 mg PO DAILY COUNT INCLUDES THE [facility] Last Admin: 08/03/23 08:27 Dose: 20 mg Documented By: NIRAV Azithromycin (Azithromycin 250 Mg Tablet) 250 mg PO BEDTIME COUNT INCLUDES THE [facility] Last Admin: 08/02/23 21:20 Dose: 250 mg Documented By: TAZ Dextrose (Dextrose 50 % 25 Gm/50 Ml Syringe) 25 gm IVPUSH Q15M PRN; Protocol PRN Reason: per Hypoglycemia Standing Ord. Docusate Sodium (Docusate Sodium 100 Mg Capsule) 100 mg PO BID COUNT INCLUDES THE [facility] Last Admin: 08/03/23 08:28 Dose: 100 mg Documented By: NIRAV Enoxaparin Sodium (Enoxaparin Sodium 40 Mg/0.4 Ml Syringe) 40 mg SUBCUT Q24H COUNT INCLUDES THE [facility] Last Admin: 08/03/23 08:27 Dose: 40 mg Documented By: NIRAV Fluticasone Propionate (Fluticasone Propionate 250 Mcg Blst.W.Dev) 1 puff INHALE RBID COUNT INCLUDES THE [facility] Last Admin: 08/03/23 07:37 Dose: 1 puff Documented By: ASHLEIGH Gabapentin (Gabapentin 400 Mg Capsule) 800 mg PO TID COUNT INCLUDES THE [facility] Last Admin: 08/03/23 08:28 Dose: 800 mg Documented By: NIRAV Glucose (Glucose Gel 15 Gm Gel..Gram.) 15 gm PO Q15M PRN; Protocol PRN Reason: per Hypoglycemia Standing Ord. Insulin Human Lispro (Insulin Lispro 100 Unit/Ml 3 Ml Vial) 0 unit SUBCUT QIDACHS COUNT INCLUDES THE [facility]; Protocol Last Admin: 08/03/23 08:26 Dose: 2 unit Documented By: NIRAV Losartan Potassium (Losartan Potassium 50 Mg Tablet) 50 mg PO DAILY COUNT INCLUDES THE [facility]; Protocol Last Admin: 08/03/23 08:28 Dose: 50 mg Documented By: NIRAV Melatonin (Melatonin 3 Mg Tablet) 6 mg PO BEDTIME PRN PRN Reason: Insomnia Nicotine (Nicotine 14 Mg Patch.Td24) 14 mg TRANSDERMA DAILY COUNT INCLUDES THE [facility] Last Admin: 12/19/23 08:27 Dose: 14 mg Documented By: NIRAV Omeprazole (Omeprazole 20 Mg Capsule.Dr) 20 mg PO DAILY@0630 COUNT INCLUDES THE [facility] Last Admin: 08/03/23 06:06 Dose: 20 mg Documented By: TAZ Ondansetron HCl (Ondansetron Hcl 4 Mg/2 Ml Vial) 4 mg IVPUSH Q8H PRN PRN Reason: Nausea and Vomiting Last Admin: 08/02/23 09:37 Dose: 4 mg Documented By: NIRAV Prednisone (Prednisone 20 Mg Tablet) 40 mg PO DAILY COUNT INCLUDES THE [facility] Last Admin: 08/03/23 08:28 Dose: 40 mg Documented By: NIRAV Sodium Chloride (0.9 % Sodium Chloride Flush 3 Ml Syringe) 3 ml IVFLUSH QSHIFT COUNT INCLUDES THE [facility] Last Admin: 08/03/23 08:27 Dose: 3 ml Documented By: NIRAV Vitamin D (Cholecalciferol (Vitamin D3) 25 Mcg Tablet) 50 mcg PO DAILY COUNT INCLUDES THE [facility] Last Admin: 08/03/23 08:27 Dose: 50 mcg Documented By: NIRAV Labs 08/03/23 09:06 08/02/23 06:07 Labs: Laboratory Results - last 24 hr 08/02/23 08/02/23 08/02/23 11:21 15:48 20:01 MCV MCH MCHC RDW Plt Count MPV Absolute Nucleated RBC Nucleated RBC % (auto) POC Glucose 231 H 249 H 159 H 08/03/23 08/03/23 07:34 09:06 MCV 89.2 MCH 27.0 MCHC 30.3 L RDW 17.9 H Plt Count 341 MPV 9.8 Absolute Nucleated RBC 0.000 Nucleated RBC % (auto) 0.0 POC Glucose 199 H Microbiology Microbiology Results: Microbiology 08/01/23 17:13 Blood Culture - Preliminary Blood - Venous No growth after 24 hours. 08/01/23 16:46 Blood Culture - Preliminary Blood - Venous No growth after 24 hours. Assessment and Plan (1) Acute respiratory failure with hypoxemia: Status: Acute (2) COPD with acute exacerbation: Status: Acute Plan day3: 63yo F with chronic hypoxic respiratory failure due to COPD on 2L home O2, ongoing tobacco abuse, DM2 with gastroparesis, and HTN who presented sob. acute on chronic hypoxic respiratory failure due to COPD with acute exacerbation sob similar to yesterday ,sob with minimun excersion,difficult to talk due to sob. leucocytosis possible ch elevated . - noted with hypoxemia - admit and start solu medrol, duo nebs and Albuterol PRN - start on Azithromycin for its pleotropic effects Type 2 diabetes mellitus with hyperglycemia moniter fs insulin hold Metformin& Sitagliptin acute lactic acidosis - likely secondary to Albuterol updrafts - not due to an infectious source - no need to continue monitoring GERD - resume Omeprazole Type 2 Diabetes Mellitus with hyperglycemia -possible due to steriods use . - with hyperglycemia - start on SSI coverage ongoing inpatient need :acute on chronic hypoxic respiratory failure due to COPD with acute exacerbation-due to need of oxygen(acute decompensation on ch resp failure sec to copd), nebs and steriods Quality Stroke Does the patient have a stroke diagnosis?: No VTE Prior VTE?: No VTE Risk Level:: Medical - moderate - high VTE Device Contraindication: N/A - Device Ordered VTE Drug Contraindication: N/A - Med Ordered
[2023-08-03 11:25] LABS: Glucose, Whole Blood 240 mg/dL (60-115)
[2023-08-03 15:16] VITALS: BP 141/65; PULSE 90; RESP 20; TEMP 36.3; O2SAT 93
[2023-08-03 16:21] LABS: Glucose, Whole Blood 337 mg/dL (60-115)
[2023-08-03 19:16] VITALS: BP 118/58; PULSE 89; RESP 20; TEMP 36.3; O2SAT 92
[2023-08-03 20:28] LABS: Glucose, Whole Blood 259 mg/dL (60-115)
[2023-08-03 20:32] VITALS: PULSE 82; RESP 20; O2SAT 95
[2023-08-03] MEDS: Aspirin Enteric Coated 81 MG TABLET.DR PO (22:48)
[2023-08-03] MEDS: Azithromycin 250 MG TABLET PO (22:48)
[2023-08-03] MEDS: Amitriptyline HCl 50 MG TABLET PO (22:49)
[2023-08-04 03:52] VITALS: BP 168/88; PULSE 84; RESP 20; TEMP 36.1; O2SAT 98
[2023-08-04] MEDS: Omeprazole 20 MG CAPSULE.DR PO (06:29)
[2023-08-04 07:20] VITALS: BP 162/76; PULSE 86; RESP 18; TEMP 36.4; O2SAT 90
[2023-08-04 07:33] LABS: Glucose, Whole Blood 132 mg/dL (60-115)
[2023-08-04] MEDS: Fluticasone Propionate 250 MCG BLST.W.DEV 1 PUFF INHALE (08:23)
[2023-08-04] MEDS: Albuterol/Iprat 2.5/0.5MG 3 ML AMPUL.NEB INHALE ×2 (08:23→11:24)
[2023-08-04 08:24] VITALS: PULSE 77; RESP 16; O2SAT 98
[2023-08-04] MEDS: Nicotine 14 MG PATCH.TD24 TRANSDERMA (10:28)
[2023-08-04] MEDS: Enoxaparin Sodium 40 MG/0.4 ML SYRINGE SUBCUT (10:29)
[2023-08-04] MEDS: Losartan Potassium 50 MG TABLET PO (10:30)
[2023-08-04] MEDS: amLODIPine Besylate 5 MG TABLET PO (10:30)
[2023-08-04] MEDS: Gabapentin 400 MG CAPSULE 800 MG PO (10:30)
[2023-08-04] MEDS: Cholecalciferol (Vitamin D3) 25 MCG TABLET 50 MCG PO (10:30)
[2023-08-04] MEDS: predniSONE 20 MG TABLET 40 MG PO (10:30)
[2023-08-04] MEDS: 0.9 % Sodium Chloride Flush 3 ML SYRINGE IVFLUSH (10:30)
[2023-08-04] MEDS: Atorvastatin Calcium 20 MG TABLET PO (10:30)
[2023-08-04] MEDS: Docusate Sodium 100 MG CAPSULE PO (10:31)
[2023-08-04 11:22] LABS: Glucose, Whole Blood 229 mg/dL (60-115)
[2023-08-04 11:25] VITALS: PULSE 82; RESP 15; O2SAT 98
[2023-08-04] MEDS: Insulin Lispro 100 UNIT/ML 3 ML VIAL SUBCUT (12:12)
--- NOTE | 2023-08-04 12:52 | MHC.CM.PN ---
Addendum entered by Laly Minor RN 08/04/23 14:11: PER MD PATIENT IS MEDICALLY CLEARED FOR DC HOME, [employer]. PARTNER TO TRANSPORT HOME. RN AWARE. Original Note: EMR REVIEWED. PER MD ROUNDS PATIENT IS NOT MEDICALLY CLEARED FOR DC AT THIS TIME. CM WILL CONTINUE TO FOLLOW.
--- NOTE | 2023-08-04 13:46 | PM.DS ---
DS: Providers Provider Date of Service: 08/04/23 Date of admission: 08/01/23 23:41 Primary care physician: Magalie Nicolas MD DS: Diagnosis Discharge Diagnosis (1) Acute respiratory failure with hypoxemia: Status: Resolved (2) COPD with acute exacerbation: Status: Resolved DS: Summary Hospital Course Hospital Course: admission HPI Attending physician on admission: Len Jiménez Chief Complaint: Genaralized body aches; Low oxygen saturation Patient is a 63 year old white female with known history of GERD, hypertension, hyperlipidemia, T2DM, COPD on home Oxygen who presented to the emergency room complaining of generalized body aches, back pain (lower thoracic/upper lumbar pain), cough, nasal congestion. She denied any falls. She came to the emergency room without any oxygen and on arrival to the ED, was found to be hypoxic with oxygen saturation of 82% on room air. This improved with supplemental oxygen. She denies any associated cough, fevers or chills. However, when she was about to be discharged home, her oxygen saturations dropped to 82% and so a decision was made to admit her for further care. hospital course: this patient with chronic respiratory failure due to COPD on home O2 and active smoker presenting to the hospital with generalized body ache and was found to have low oxygen saturation of around 82%, workup was negative for influenza a COVID or RSV. Checks x-ray showed no acute pneumonic process. Patient was admitted for acute exacerbation of COPD and was treated with IV steroid, bronchodilator by nebulizer. Over the course of hospitalization she has make a rapid recovery and is back to her baseline. Her oxygen saturation is about 92% which is her baseline. She has no should respiratory difficulty at this time. She wishes to go home. She is advised to stop smoking and to continue use of her oxygen as before additionally she will be prescribed prednisone 40 mg daily for an additional 3 days for total of 5 days of steroid final diagnosis: Acute on chronic hypoxic respiratory failure due to COPD chronic tobacco use Time Attestation Discharge coordination time: Greater than 30 minutes Quality: Safe Use of Opioids Does Pt have an Active Cancer Diagnosis on the Problem List?: No Quality: Stroke Does the patient have a stroke diagnosis?: No Physical Exam Vital Signs: Vital Signs: Last Vital Signs Temp 97.5 F 08/04/23 07:20 Pulse 82 08/04/23 11:25 Resp 15 08/04/23 11:25 BP 162/76 H 08/04/23 07:20 Pulse Ox 90 L 08/04/23 07:20 O2 Del Method Nasal Cannula 08/04/23 07:20 O2 Flow Rate 3 08/04/23 07:20 Oxygen Flow Rate 3 08/01/23 17:34 BMI result Body Mass Index 26.1 DS: Data Data Completed and Pending Labs on day of discharge: Laboratory Results - last 24 hr 08/03/23 08/03/23 08/04/23 16:17 20:23 07:17 POC Glucose 337 H 259 H 132 H 08/04/23 11:16 POC Glucose 229 H Preliminary micro results at discharge 08/01/23 17:13 Blood Culture - Preliminary Blood - Venous No growth after 48 hours. 08/01/23 16:46 Blood Culture - Preliminary Blood - Venous No growth after 48 hours. Discharge Plan Discharge Anticipated Discharge Date/Time: 08/04/23 13:41 Patient Disposition: Home, Self-Care Discharge Diagnosis: Acute hypoxic respiratory failure due to exacerbation of copd Referrals: Magalie Nicolas MD [Primary Care Provider] - 1 Week Discharge Medications: Continued (DME) lancets [FreeStyle Lancets] 28 gauge misc See Rx Instructions .Route Qty: 100 5RF Rx Instructions: As directed twice a day AC (DME) FreeStyle Lite Strips Strip See Rx Instructions .Route Qty: 100 0RF Rx Instructions: check fasting blood sugar twice a day before meals cholecalciferol (vitamin D3) 50 mcg (2,000 unit) capsule 50 mcg PO DAILY Qty: 90 3RF (DME) FreeStyle Cristian 2 Sensor Kit See Rx Instructions .Route Qty: 6 3RF Rx Instructions: Test blood sugar 4 times per day (DME) FreeStyle Cristian 2 [place] Misc See Rx Instructions .Route Qty: 1 0RF Rx Instructions: test blood sugar 4 times per day losartan 50 mg tablet 50 mg PO DAILY Qty: 90 1RF Januvia 100 mg tablet 100 mg PO DAILY Qty: 90 1RF rosuvastatin 5 mg tablet 5 mg PO DAILY Qty: 90 1RF lidocaine [Lidocaine Pain Relief] 4 % adhesive patch,medicated 1 patch transdermal DAILY PRN (Reason: Pain) Protocol: Apply to: Apply to: anterior chest wal albuterol sulfate 2.5 mg /3 mL (0.083 %) solution for nebulization 2.5 mg inhalation Q6H PRN (Reason: wheezing) albuterol sulfate 90 mcg/actuation HFA aerosol inhaler 2 puff inhalation Q4-6H PRN (Reason: shortness of breath or wheezing) Qty: 6.7 2RF umeclidinium 62.5 mcg/actuation blister with device 1 inh inhalation DAILY Rx Instructions: Encruse aspirin [Adult Low Dose Aspirin] 81 mg tablet,delayed release (DR/EC) 81 mg PO BEDTIME (DME) blood-glucose meter [FreeStyle Lite Meter] Kit See Rx Instructions .Route Qty: 1 0RF Rx Instructions: As directed twice a day before meals metformin 1,000 mg tablet 1,000 mg PO BID gabapentin 800 mg tablet 800 mg PO TID 30 Days Qty: 90 6RF amitriptyline 25 mg tablet 50 mg PO BEDTIME 30 Days Qty: 60 6RF No Action naproxen 500 mg tablet 500 mg PO BID Qty: 60 0RF amlodipine 5 mg tablet 5 mg PO DAILY Qty: 90 0RF Linzess 145 mcg capsule 145 mcg PO QAM Qty: 30 6RF prochlorperazine maleate [Compazine] 10 mg tablet 10 mg PO BID PRN (Reason: nausea and vomiting) Qty: 10 0RF Arnuity Ellipta 200 mcg/actuation blister with device 1 inh inhalation DAILY metoclopramide HCl [Reglan] 10 mg tablet 10 mg PO Q4-6H Qty: 90 0RF omeprazole 20 mg capsule,delayed release(DR/EC) 20 mg PO DAILY Qty: 90 2RF psyllium husk [Fiber Laxative (psyllium husk)] 0.52 gram capsule 1.04 g PO BID 90 Days Qty: 360 3RF simethicone [Anti-Gas Ultra Strength] 180 mg capsule 180 mg PO QID Qty: 90 6RF Discharge Orders: Discharge Order (Routine); Ordered 08/04/23 Ordered By: Mumtaz Forman Diet: Advance to usual diet Activity on Discharge: As tolerated Stand Alone Forms: Patient Portal Discharge page Activity Restrictions/Additional Instructions: Please follow-up with your primary care physician tomorrow. If you have any worsening or new symptoms, please return to the emergency room or call 911 Care Plan Goals: Full recovery from copd exacerbation Health Concerns: acute on chronic respiratory failure due to COPD Plan of Treatment: take prednisone as directed, use inhalers as previously. Stop smoking. Please visit your doctor in about a week call for appointment. Assessment: See above Patient Instructions: Chronic Bronchitis (ED), Low Back Strain (ED) Discharge Date/Time: 08/04/23 16:06
== END 2023-08-04 16:06 | disposition home or self-care (01) | DRG 140 ==
LOC: HO.ED 21:42 → HO.EDOVER 23:46 → HO.S3 08-02 07:41
PROVIDERS: Internal Medicine; Admitting Provider Internal Medicine; Emergency Provider Emergency Medicine; PCP Internal Medicine; Visit Provider Internal Medicine
DX: J44.1 Chronic obstructive pulmonary disease with (acute) exacerbation (principal); E87.21 Acute metabolic acidosis; J96.11 Chronic respiratory failure with hypoxia; Z99.81 Dependence on supplemental oxygen; E11.65 Type 2 diabetes mellitus with hyperglycemia; K21.9 Gastro-esophageal reflux disease without esophagitis; E78.2 Mixed hyperlipidemia; F17.210 Nicotine dependence, cigarettes, uncomplicated; Z71.6 Tobacco abuse counseling; Z20.822 Contact with and (suspected) exposure to COVID-19; Z79.51 Long term (current) use of inhaled steroids; Z79.82 Long term (current) use of aspirin; Z79.84 Long term (current) use of oral hypoglycemic drugs; Z79.899 Other long term (current) drug therapy
CPT/HCPCS: 36415; 71045; 72070; 72100; 80048; 80076; 82803; 82947; 83605; 83735; 83880; 84484; 85025; 85027; 85610; 87040; 87502; 87635; 93005; 94640; 99285; J0456; J1650; J2405; J2543; J2920; J2930; J3475

== ENCOUNTER → 2023-08-01 16:19 | Outpatient (BNV) | payer OTHER, SELFPAY | PROVIDERS: Emergency Provider Emergency Medicine; PCP Internal Medicine; Visit Provider Internal Medicine Cardiovascular Disease | DX: R00.0 Tachycardia, unspecified (principal) | CPT/HCPCS: 93010 ==

== ENCOUNTER → 2023-08-01 23:41 | Outpatient (BNV) | payer OTHER, SELFPAY | PROVIDERS: Admitting Provider Internal Medicine; Emergency Provider Emergency Medicine; PCP Internal Medicine; Visit Provider Internal Medicine | DX: J44.1 Chronic obstructive pulmonary disease with (acute) exacerbation (principal); J96.01 Acute respiratory failure with hypoxia; F17.200 Nicotine dependence, unspecified, uncomplicated | CPT/HCPCS: 99223; 99232; 99239 ==

== ENCOUNTER 2023-08-10 15:23 | Outpatient (REF) | payer OTHER, SELFPAY ==
--- NOTE | ~2023-08-10 | MM_ITS ---
EXAMINATION: MM SCREENING DIGITAL BREAST TOMOSYNTHESIS, BILATERAL CLINICAL INFORMATION: Screening. Asymptomatic. COMPARISON: Mammography: This study is compared with prior exams dating back to 2018. TECHNIQUE: Digital breast tomosynthesis is performed in both the craniocaudal and mediolateral oblique views along with computer-aided detection (CAD). Synthesized 2D images are generated from the tomosynthesis. FINDINGS: There are scattered areas of fibroglandular density (ACR BI-RADS breast composition Category b). There are no significant masses, abnormal calcifications, or other abnormalities. MM/MM tomosynthesis screening BI IMPRESSION: No mammographic evidence of malignancy. ASSESSMENT: BI-RADS BI-RADS 1 - Negative RECOMMENDATION: Routine annual mammography screening. 1 year F/U This examination should not preclude the clinical evaluation of a suspicious palpable abnormality. This patient's information was entered into a reminder system with a target due date for their next mammogram.
== END 2023-08-10 15:24 | disposition home or self-care (01) ==
LOC: HO.MAMMO 15:23
PROVIDERS: PCP Internal Medicine; Visit Provider Internal Medicine
DX: Z13.1 Encounter for screening for diabetes mellitus (principal)
CPT/HCPCS: 77063; 77067

== ENCOUNTER → 2023-08-10 15:30 | Outpatient (BNV) | payer OTHER, SELFPAY | PROVIDERS: PCP Internal Medicine; Visit Provider Radiology Diagnostic Radiology | DX: Z12.31 Encounter for screening mammogram for malignant neoplasm of breast (principal) | CPT/HCPCS: 77063; 77067 ==

== ENCOUNTER 2023-08-12 10:23 | Outpatient (REF) | payer OTHER, SELFPAY ==
--- NOTE | ~2023-08-12 | XR_ITS ---
EXAMINATION: XR CHEST CLINICAL INFORMATION: Pneumonia. COPD. COMPARISON: Chest radiograph from 08/01/2023 and 05/19/2022. CT chest from 05/17/2023. TECHNIQUE: 2 views of the chest were obtained (PA and lateral). FINDINGS: The lungs are well expanded. Persistent minimally increased bibasilar pulmonary markings. No demonstrated dense focal consolidative process. No evidence of pleural effusion, irregular pulmonary edema, or pneumothorax. The cardiomediastinal silhouette is within normal limits. Aortic calcifications. No acute osseous abnormalities. Partially visualized interbody fusion device of the lower cervical spine. Moderate left convex curvature of the thoracic spine. Mildly exaggerated focal kyphosis of the lower thoracic spine. XR/XR chest 2V IMPRESSION: 1. No radiographically evident acute pulmonary abnormalities. 2. Persistent nonspecific minimally increased bibasilar pulmonary markings. No demonstrated dense focal consolidative process.
[2023-08-12 13:35] LABS: MANUAL DIFF FLAG NO
[2023-08-12 13:48] LABS: Basophils Absolute Auto 0.1 X10*3/uL (0.0-0.2); Basophils Percent Auto 0.4 % (0-2); Eosinophils Absolute Auto 0.1 X10*3/uL (0.0-0.4); Eosinophils Percent Auto 0.3 % (0-4); Hematocrit 44.8 % (37.0-47.0); Hemoglobin 13.5 g/dl (12.0-16.0); Imm Gran Abs Auto 0.14 X10*3/uL (0.00-0.03); Imm Gran Pct Auto 0.8 % (0.0-0.4); Lymphocytes Absolute Auto 3.2 X10*3/uL (1.2-4.9); Lymphocytes Percent Auto 17.5 % (20-40); Mean Corpuscular HGB Conc 30.1 g/dl (31.0-35.0); Mean Corpuscular Hemoglobin 27.5 pg (27.0-33.0); Mean Corpuscular Volume 91.2 fL (80.0-98.0); Mean Platelet Volume 10.7 fL (9.4-12.3); Monocytes Percent Auto 5.7 % (2-11); Neutrophils Absolute Auto 13.7 x10*3/uL (2.0-8.3); Neutrophils Percent Auto 75.3 % (45-73); Platelet Count 323 X10*3/uL (160-400); Red Blood Count 4.91 X10*6/uL (4.20-5.50); Red Cell Distribution Width 17.4 % (11.0-16.0); White Blood Count 18.2 X10*3/uL (4.8-10.8)
== END 2023-08-12 10:24 | disposition home or self-care (01) ==
LOC: HO.HMGCX 10:23
PROVIDERS: PCP Internal Medicine; Visit Provider Internal Medicine
DX: J18.9 Pneumonia, unspecified organism (principal); J44.9 Chronic obstructive pulmonary disease, unspecified
CPT/HCPCS: 36415; 71046; 85025

== ENCOUNTER 2023-08-20 15:40 | Outpatient (AMB) | payer OTHER, SELFPAY ==
--- NOTE | 2023-08-20 15:41 | A.OFFVIS_ITS ---
Intake Vital Signs 08/20/23 15:42 Height 4 ft 8 in Weight 117 lb 4.575 oz BMI 26.3 BP 163/72 H Blood Pressure Location Rt brachial Position Sitting Pulse 97 Intake Visit Reasons: 6 months follow up Intake Note: Patient presents to in office visit today in 6 months follow up. CC: Patient reports that she was due for follow up before but she was admitted ot the hospital in 3 different occasions d/t COPD exacerbation. She states she has been doing well from GI standpoint and denies any new concerns or symptoms. Allergies amoxicillin [AMOXICILLIN] Allergy (Intermediate, Verified 08/25/23 14:03) RASH HPI 6 months follow up HPI Details Assessment & Plan (1) Chronic idiopathic constipation: Code(s): K59.04 - Chronic idiopathic constipation Plan: She continues to be stable. She continues on her Linzess 145 micro g, omeprazole 20 mg a day, fiber supplement, simethicone, and Reglan with good control of her constipation, gastroparesis in GERD. She is not thrilled about repeat scope, but is agreeable. She did not like taste of drink, so we discussed mixing it with something from the clear liquid list. There are no prior problems with anesthesia or sedation. She feels her COPD is controlled she is oxygen by nasal cannula and she denies any cardiac problems. No ID problems. NO known FHX crc or polyps. ROV 6 mos and after colonoscopy. (2) Gastroparesis: Code(s): K31.84 - Gastroparesis Medications: New peg 3350-electroly sallie 236-22.74-6.74 -5.86 gram (Golyt harini) until feca l effluent is supriya r; do not exceed a total volume of 2 ,000 mL 240 mL PO Q10M 1 day 4,000 mL 0RF Z12.11 - Encounter for screening for malignant neoplas m of colon Refilled linaclotide (Linze ss) 145 mcg PO QAM 30 days 30 caps 6RF K59.04 - Chronic i diopathic constipa tion metoclopramide HCl (Reglan) 10 mg PO TIDAC 90 tabs 6RF gastropa resis omeprazole 20 mg PO DAILY 30 days 30 caps 6RF K21.9 - Gastro-eso phageal reflux dis ease without esoph agitis psyllium husk (Fib er Laxative (psyll ium husk)) 1.04 grams (2 x 0. 52 gram) PO BID 12 0 caps 6RF K59.04 - Chronic i diopathic constipa tion simethicone (Anti- Gas Ultra Strength ) 180 mg PO QID 120 caps 6RF R14.0 - Abdominal distension (gaseou s) COLONOSCOPY BIOPSY Laboratory Tests 07/02/23 07/19/23 08/01/23 13:31 08:32 16:46 WBC Hgb Hct Plt Count Estimated GFR Hemoglobin A1c % 6.6 H AST 12 ALT 9 Alkaline Phosphata se 138 H C-Reactive Protein 21.40 H 08/02/23 08/12/23 06:07 10:33 WBC 18.2 H Hgb 13.5 Hct 44.8 Plt Count 323 Estimated GFR > 60 Hemoglobin A1c % AST ALT Alkaline Phosphata se C-Reactive Protein TODAY'S VISIT She says she has missed appointments 3 times because she was hospitalized for her COPD. She and her s/o are now trying to quit smoking. She continues on her Linzess 145 micro g, omeprazole 20 mg a day, fiber supplement, simethicone, and Reglan with good control of her constipation, gastroparesis in GERD. She feels she is stable. We will hold off on colonoscopy until she has had a good long period of respiratory stability. ROV 3 mos or in late November. [facility] Medical History Chronic lung disease COPD (chronic obstructive pulmonary disease) Type 2 diabetes mellitus without complication, with no history of insulin use Mixed dyslipidemia Essential hypertension GERD (gastroesophageal reflux disease) Gastroparesis Diastolic CHF with preserved left ventricular function, NYHA class 2 Chronic hypercapnic respiratory failure Type 2 diabetes mellitus with other diabetic kidney complication Type 2 diabetes mellitus without complication, with no history of insulin use Smoker unmotivated to quit Postlaminectomy syndrome of cervical region Seasonal allergic rhinitis Degenerative disc disease, cervical Postmenopause Dyslipidemia Surgical History H/O cervical discectomy History of esophagogastroduodenoscopy (EGD) Hx of colonoscopy Family History Mother Diabetes Sister Diabetes Mental health disorder Brother Diabetes Father HTN (hypertension) Social History Household Members: Significant Other Housing: Other Housing Other:: Mobile Home Do you presently have visiting nurse or other home services: Yes ([employer]) Alcohol intake: former Comment: Commode/ Hi Flow O2 Patient Tobacco Use Status: Current everyday Tobacco user Tobacco use type: Cigarette Cigarette Packs Per Day: 1 Cigarettes Per Day: 20.0 Years Smoked: 20 e-Cigarette/Vaping Use: Never Used Second Hand Smoke Exposure: Yes Advance Directives Date on File: 09/20/21 service: No Current occupational status: unemployed Cognitive needs: No Hearing needs: No Vision needs: Yes Review of Systems Const Denies fatigue, Denies fever(s), Denies night sweats, Denies poor appetite and Denies weight loss Eyes Details: Glasses Reports requires corrective lenses ENT Reports Normal hearing present, Denies dysphagia, Denies odynophagia, Denies throat swelling and Denies tongue swelling Card Reports no additional complaints and Reports dyspnea on exertion Resp Reports cough and Reports dyspnea on exertion GI Denies abdominal pain, Denies melena, Reports bloating, Denies hematochezia, Reports constipation, Denies GI cramping, Denies dysphagia, Denies excessive flatus, Reports early satiety, Reports heartburn, Denies diarrhea, Denies nausea, Denies odynophagia, Denies vomiting and Denies hematemesis Skin/Breast Denies pruritus, Denies lesions, Denies rash and Denies jaundice Neuro Reports Normal hearing present and Denies Abnormal speech present Endo Denies fatigue Aller/Immun Denies throat swelling and Denies tongue swelling Physical Exam Vital Signs: Last Vital Signs Pulse 97 08/20/23 15:42 BP 163/72 H 08/20/23 15:42 BMI result Body Mass Index 26.3 Const General: cooperative, no acute distress, well developed and well groomed Nutritional Appearance: well nourished and obese centrally obese Orientation/consciousness: oriented to person, oriented to place and oriented to time Limitations: No language barrier HEENT Head: Yes normocephalic and Yes atraumatic Eyes General: appearance normal, both eyes and all related structures Pupils: Equal, round and reactive pupils present Neck Neck: Yes normal visual inspection and Yes no lymphadenopathy Thyroid: Thyroid normal Resp Effort & Inspection: normal respiratory effort and able to speak in complete sentences Auscultation: clear to auscultation bilaterally Cardio Rate: regular rate Rhythm: regular rhythm Heart sounds: Normal, physiologic split S2 sound present Peripheral pulses: radial pulses present and posterior tibial pulses present GI Inspection: No distended, No Abdominal panniculus present and Yes obesity Palpation (GI): Soft to palpation, nontender, no guarding, not rigid and No hepatosplenomegaly present Percussion: Yes normal to percussion Auscultation: normal bowel sounds Rectal Exam - Female: deferred Skin General skin exam: no rashes or lesions noted, turgor normal, skin not dry, no jaundice, No spider nevi and no striae Rashes: no rashes Nails: normal Neuro General: oriented to person, oriented to place and oriented to time Cranial nerves: Yes Equal, round and reactive pupils present and Yes Normal hearing present Speech: No Abnormal speech present Extrem General: Yes normal to inspection, No clubbing, No cyanosis and No edema Psych Appearance: grossly normal and well kempt Mental Status: mental status grossly normal Speech and movement: Normal speech and movement present Affect: normal affect Attitude: cooperative Thought process: Normal thought process present and not confabulating Thought content: Normal thought content present Insight: Limited insight present (Psych) Judgement: Limited judgement present (Psych) Assessment & Plan Assessment & Plan (1) GERD (gastroesophageal reflux disease): Code(s): K21.9 - Gastro-esophageal reflux disease without esophagitis Qualifiers: Esophagitis presence: without esophagitis Qualified Code(s): K21.9 - Gastro-esophageal reflux disease without esophagitis (2) Chronic idiopathic constipation: Code(s): K59.04 - Chronic idiopathic constipation (3) Diabetic gastroparesis: Code(s): E11.43 - Type 2 diabetes mellitus with diabetic autonomic (poly)neuropathy; K31.84 - Gastroparesis Plan She says she has missed appointments 3 times because she was hospitalized for her COPD. She and her s/o are now trying to quit smoking. She continues on her Linzess 145 micro g, omeprazole 20 mg a day, fiber supplement, simethicone, and Reglan with good control of her constipation, gastroparesis in GERD. She feels she is stable. We will hold off on colonoscopy until she has had a good long period of respiratory stability. ROV 3 mos or in late November. Medications: New linaclotide (Linzess) 145 mcg PO DAILY 30 caps 6RF simethicone (Anti-Gas Ultra Strength) 180 mg PO QID 90 caps 6RF Changed From psyllium husk 1.04 grams (2 x 0.52 gram) PO BID 90 days 360 caps 3RF K59.04 - Chronic idiopathic constipation To psyllium husk (Fiber Laxative (psyllium husk)) 1.04 grams (2 x 0.52 gram) PO BID 360 caps 3RF 90 days K59.04 - Chronic idiopathic constipation Refilled metoclopramide HCl (Reglan) 10 mg PO TIDAC 90 tabs 6RF gastroparesis omeprazole 20 mg PO DAILY 90 caps 2RF K21.9 - Gastro-esophageal reflux disease without esophagitis Coding Level of Care Code Est Pt Level 3 (58079) Diagnoses Gastroesophageal reflux disease without esophagitis K21.9 Esophagitis presence: without esophagitis Chronic idiopathic constipation K59.04 Diabetic gastroparesis E11.43; K31.84
[2023-08-20 15:42] VITALS: BP 163/72; PULSE 97; BMI 26.3
== END 2023-08-20 16:07 | disposition home or self-care (01) ==
PROVIDERS: PCP Internal Medicine; Visit Provider Nurse Practitioner
DX: K21.9 Gastro-esophageal reflux disease without esophagitis (principal); K59.04 Chronic idiopathic constipation; E11.43 Type 2 diabetes mellitus with diabetic autonomic (poly)neuropathy; K31.84 Gastroparesis
CPT/HCPCS: 99213

== ENCOUNTER → 2023-08-20 15:40 | Outpatient (BNVA) | payer OTHER, SELFPAY | PROVIDERS: PCP Internal Medicine; Visit Provider Nurse Practitioner | DX: K21.9 Gastro-esophageal reflux disease without esophagitis (principal); K59.04 Chronic idiopathic constipation; K31.84 Gastroparesis; E11.43 Type 2 diabetes mellitus with diabetic autonomic (poly)neuropathy | CPT/HCPCS: 99212 ==

== ENCOUNTER 2023-08-25 13:26 | Outpatient (AMB) | payer OTHER, SELFPAY ==
[2023-08-25 13:34] VITALS: BP 114/66; PULSE 92; TEMP 37.1; O2SAT 106; BMI 25.9
--- NOTE | 2023-08-25 13:34 | MHC.PC.OV ---
Vital Signs 08/25/23 13:34 Height 4 ft 8 in Weight 115 lb 6 oz BMI 25.9 BP 114/66 Blood Pressure Location Lt brachial Position Sitting Pulse 92 Pulse Source Pulse Oximeter Temp 98.7 F Temp Source Oral Pulse Oximetry (%) 106 H Oxygen Delivery Method Nasal Cannula Oxygen Flow Rate 2 Comment On 2 L O2 by nasal cannula Intake Visit Reasons: HDF ~ [facility] [place] COPD exacerbation Intake Note: Pt is here to follow up from being in [facility] for COPD exacerbation Allergies amoxicillin [AMOXICILLIN] Allergy (Intermediate, Verified 08/25/23 14:03) RASH Medication List - Last Reconciled 08/25/23 by Magalie Nicolas MD albuterol sulfate 90 mcg/actuation 2 puffs inhalation Q4-6H PRN albuterol sulfate 2.5 mg inhalation Q6H PRN amitriptyline 50 mg (2 x 25 mg) PO BEDTIME 30 days amlodipine 5 mg See Protocol PO DAILY aspirin (Adult Low Dose Aspirin) 81 mg PO BEDTIME blood-glucose meter (FreeStyle Lite Meter kit) As directed twice a day before meals cholecalciferol (vitamin D3) 50 mcg PO DAILY flash glucose scanning reader (School[employer] Cristian 2 [place]) test blood sugar 4 times per day flash glucose sensor (FreeStyle Cristian 2 Sensor kit) Test blood sugar 4 times per day fluticasone furoate 200 mcg/actuation (Arnuity Ellipta) 1 inh inhalation DAILY FreeStyle Lite Strips (blood sugar diagnostic) check fasting blood sugar twice a day before meals NS gabapentin 800 mg PO TID 30 days lancets (FreeStyle Lancets) As directed twice a day AC lidocaine 4% (Lidocaine Pain Relief) 1 patch See Protocol transdermal DAILY PRN linaclotide (Linzess) 145 mcg PO DAILY losartan 50 mg PO DAILY metformin 1,000 mg PO BID metoclopramide HCl (Reglan) 10 mg PO TIDAC naproxen 500 mg PO BID omeprazole 20 mg PO DAILY psyllium husk (Fiber Laxative (psyllium husk)) 1.04 grams (2 x 0.52 gram) PO BID 90 days rosuvastatin 5 mg PO DAILY simethicone (Anti-Gas Ultra Strength) 180 mg PO QID sitagliptin phosphate (Januvia) 100 mg PO DAILY umeclidinium 62.5 mcg/actuation 1 inh inhalation DAILY Tobacco use date assessed: 08/25/23 Dental Screening Dental Screen Date: 08/25/23 Did you have a dental visit in the last 12 months?: Yes Did you have a dental problem in the last 6 months where you did not have access to dental care?: No Was dental information given to patient?: Patient has dentist HPI HDF ~ [facility] [facility] COPD exacerbation HPI Details 63-year-old lady here today again for follow-up after recent ER visit for acute exacerbation of COPD. She is currently on home O2 2 L by nasal cannula when active. Patient however comes in today without her portable oxygen tank, claims to have left at home and noticeably short of breath with initial PO2 on room air at 88%, it did gradually go up to 92% after being given O2 at 2 L by nasal cannula, with tachypnea resolving. She was not started on any new medication however she was given some cough medication to take as needed, continued on current inhalers. She has been afebrile, with no complaints of chest pain, lightheadedness. Patient states she has an appointment to see her driver/refuse collector at [facility] but not until October 2023. Continues to smoke cigarettes, but claims to have cut down to 1 pack a day. She has nicotine patches at home but has not been using them.. [facility] Medical History Chronic lung disease COPD (chronic obstructive pulmonary disease) Type 2 diabetes mellitus without complication, with no history of insulin use Mixed dyslipidemia Essential hypertension GERD (gastroesophageal reflux disease) Gastroparesis Diastolic CHF with preserved left ventricular function, NYHA class 2 Chronic hypercapnic respiratory failure Type 2 diabetes mellitus with other diabetic kidney complication Type 2 diabetes mellitus without complication, with no history of insulin use Smoker unmotivated to quit Postlaminectomy syndrome of cervical region Seasonal allergic rhinitis Degenerative disc disease, cervical Postmenopause Dyslipidemia Surgical History H/O cervical discectomy History of esophagogastroduodenoscopy (EGD) Hx of colonoscopy Family History Mother Diabetes Sister Diabetes Mental health disorder Brother Diabetes Father HTN (hypertension) Social History Household Members: Significant Other Housing: Other Housing Other:: Mobile Home Do you presently have visiting nurse or other home services: Yes ([employer]IST) Alcohol intake: former Comment: Commode/ Hi Flow O2 Patient Tobacco Use Status: Current everyday Tobacco user Tobacco use type: Cigarette Cigarette Packs Per Day: 1 Cigarettes Per Day: 20.0 Years Smoked: 20 e-Cigarette/Vaping Use: Never Used Second Hand Smoke Exposure: Yes Advance Directives Date on File: 09/20/21 service: No Current occupational status: unemployed Cognitive needs: No Hearing needs: No Vision needs: Yes Questionnaire Thrive Questionnaire Date Thrive assessed: 08/02/23 FREDI-7 AMB Questionnaire FREDI-7 Date FREDI - 7 assessed: 09/02/22 Source: Developed by Drs. Wiley Caballero, Sharmila Paez, Iraj Hernandez and colleagues, with an educational radha from [employer]. Review of Systems Const Denies fatigue, Denies fever(s), Denies night sweats, Denies poor appetite and Denies weight loss Eyes Details: Glasses Reports requires corrective lenses ENT Reports Normal hearing present, Denies dysphagia, Denies odynophagia, Denies throat swelling and Denies tongue swelling Card Denies chest pain, Denies chest pain with activity, Reports rapid heart rate, Denies lightheadedness and Reports dyspnea on exertion Resp Reports cough, Denies hemoptysis and Reports dyspnea on exertion GI Denies abdominal pain, Denies melena, Reports bloating, Denies hematochezia, Reports constipation, Denies GI cramping, Denies dysphagia, Denies excessive flatus, Reports early satiety, Reports heartburn, Denies diarrhea, Denies nausea, Denies odynophagia, Denies vomiting and Denies hematemesis Reports no additional complaints Musc Reports stiffness Skin/Breast Denies pruritus, Denies lesions, Denies rash and Denies jaundice Neuro Reports Normal hearing present and Denies Abnormal speech present Endo Denies fatigue, Denies polydipsia and Denies polyuria Patel/Lymph Denies easy bleeding and Denies easy bruising Aller/Immun Denies throat swelling and Denies tongue swelling Physical exam (Primary Care) Vital Signs: Last Vital Signs Temp 98.7 F 08/25/23 13:34 Pulse 92 08/25/23 13:34 BP 114/66 08/25/23 13:34 Pulse Ox 106 H 08/25/23 13:34 Oxygen Delivery Method Nasal Cannula 08/25/23 13:34 Oxygen Flow Rate 2 08/25/23 13:34 BMI result Body Mass Index 25.9 Tobacco/Smoking Status: Tobacco use Status Tobacco use date assessed 08/25/23 08/25/23 13:47 Patient Tobacco Use Status Current everyday Tobacco 08/25/23 13:47 Tobacco use type Cigarette 08/25/23 13:47 e-Cigarette/Vaping Use Never Used 08/25/23 13:47 Are you ready to quit: No Tobacco cessation counseling provided: Yes Thrive Assessment: Date of Thrive Assessment Date Thrive assessed 08/02/23 08/25/23 13:47 Const Other: Alert oriented x3, no acute cardiorespiratory distress noted, ambulatory with normal gait HENMT Ears: external ears normal General nose exam: Normal external nose present and No nasal discharge present Mouth: oropharynx normal and moist mucous membranes Neck Neck: Yes full ROM, Yes no lymphadenopathy and Yes supple Resp Other: on portable O2 at 2 L/NC Effort & Inspection: normal respiratory effort and able to speak in complete sentences Auscultation: no rales, no wheezes and diminished lung sounds Cardio Other: S1-S2 present regular rate and rhythm Rate: regular rate Rhythm: regular rhythm Heart sounds: S1 normal heart sound present and S2 normal heart sound present GI Other: Normal bowel sounds, soft, nontender, no mass palpated Skin General skin exam: no rashes or lesions noted Neuro General: gait normal, tone normal, moves all extremities, Normal light touch and pain sensation and no focal motor deficits Cranial nerves: Yes Normal hearing present Cognition (Neuro): normal cognition Speech: No Abnormal speech present Gait exam (Neuro): Normal gait present Motor exam (neuro): 5/5 motor strength present throughout Extrem General: Yes full ROM, Yes no joint enlargement, Yes no pedal edema, Yes no calf tenderness and Yes normal gait Office Procedures Flu Questionnaire Does the patient have a severe egg allergy?: No Does the patient have severe life threatening allergies?: No Does the patient have a fever or illness today?: No Has the patient ever had Guillain-Corydon Syndrome?: No Has the patient ever had any past reaction to a flu shot?: No Immunizations flu vacc [id number] 6mos up(PF) 60 mcg(15 mcgx4)/0.5 mL IM syringe Performing Provider: Magalie Nicolas MD [place] [facility] Administered by: Kimberly Valero CMA on 08/25/23 14:12 Dose Route Admin Location Dispensed Lot Number Expiration Date NDC Survey Coordinator 0.5 mL IM Right Deltoid 0.5 mL [id number] 02/13/24 [id number] [employer] VIS Given Date VIS Provided VIS Publication Date 08/25/23 Single Vaccine 21 Eligibility Eligibility Date Funding Source Not VFC Eligible 08/25/23 Private Assessment and Plan Assessment & Plan (1) COPD (chronic obstructive pulmonary disease): Comment: Sees [facility] Pulmonary Code(s): J44.9 - Chronic obstructive pulmonary disease, unspecified Qualifiers: COPD type: COPD with acute exacerbation Qualified Code(s): J44.1 - Chronic obstructive pulmonary disease with (acute) exacerbation Plan: Continue with fluticasone year old weight 200 mcg per actuation and umeclidinium 62.5 mcg per actuation 1 inhalation daily. Currently on home O2 at 2 L by nasal cannula when rest and on exertion at home. Has an appointment to see her [facility] driver/refuse collector Dr. Bess in October 2023, advised to schedule a sooner appointment for follow-up. Strongly advised to quit smoking, already has nicotine patches at home to use. (2) Essential hypertension: Code(s): I10 - Essential (primary) hypertension Plan: Blood pressure at goal of less than 130/80. Continue with current medication. Reinforced importance of following a low sodium diet, getting regular exercise, and lowering stress levels. (3) Mixed dyslipidemia: Code(s): E78.2 - Mixed hyperlipidemia Plan: Continue rosuvastatin 5 mg daily, recheck fasting lipids in October 2023, lab already ordered (4) Type 2 diabetes mellitus without complication, with no history of insulin use: Code(s): E11.9 - Type 2 diabetes mellitus without complications Plan: Continue with sitagliptin 100 mg 1 daily and metformin 1000 mg 1 tablet twice a day. Reminded to get her year diabetes retinopathy screening done. Flu vaccine given today, reminded to get her COVID booster Orders: Orders Influenza [id number] Immunization 08/25/23 Z23 - Encounter for immunization Coding Level of Care Code Est Pt Level 4 (48721) Diagnoses Chronic obstructive pulmonary disease with acute exacerbation J44.1 COPD type: COPD with acute exacerbation Essential hypertension I10 Mixed dyslipidemia E78.2 Type 2 diabetes mellitus without complication, with no history of insulin use E11.9
== END 2023-08-25 14:26 | disposition home or self-care (01) ==
PROVIDERS: PCP Internal Medicine; Visit Provider Internal Medicine
DX: J44.1 Chronic obstructive pulmonary disease with (acute) exacerbation (principal); E11.69 Type 2 diabetes mellitus with other specified complication; I10 Essential (primary) hypertension; E78.2 Mixed hyperlipidemia; F17.210 Nicotine dependence, cigarettes, uncomplicated
CPT/HCPCS: 90471; 90686; 99214

== ENCOUNTER 2023-09-13 09:54 | Outpatient (AMB) | payer OTHER, SELFPAY ==
--- NOTE | 2023-09-13 11:57 | AM.OFFWIN_ITS ---
Intake Vital Signs 09/13/23 11:58 Height 4 ft 8 in Weight 115 lb BMI 25.8 BP 126/74 Blood Pressure Location Lt brachial Position Sitting Pulse 98 Pulse Source Pulse Oximeter Temp 97.7 F Temp Source Oral Pulse Oximetry (%) 95 Oxygen Delivery Method Room Air Intake Visit Reasons: EST/weakness and coug/ fever([phone]) Intake Note: pt is here for c.o cough, feeling weak, nausea. patient states she has been feeling like this since yesterday Patient Tobacco Use Status: Current everyday Tobacco user Allergies amoxicillin [AMOXICILLIN] Allergy (Intermediate, Verified 09/13/23 12:10) RASH Medication List - Last Reconciled 09/13/23 by Tai Vásquez MD albuterol sulfate 90 mcg/actuation 2 puffs inhalation Q4-6H PRN albuterol sulfate 2.5 mg inhalation Q6H PRN amitriptyline 50 mg (2 x 25 mg) PO BEDTIME 30 days amlodipine 5 mg PO DAILY aspirin (Adult Low Dose Aspirin) 81 mg PO BEDTIME blood-glucose meter (FreeStyle Lite Meter kit) As directed twice a day before meals cholecalciferol (vitamin D3) 50 mcg PO DAILY flash glucose scanning reader (FreeStyle Cristian 2 [place]) test blood sugar 4 times per day flash glucose sensor (FreeStyle Cristian 2 Sensor kit) Test blood sugar 4 times per day fluticasone furoate 200 mcg/actuation (Arnuity Ellipta) 1 inh inhalation DAILY FreeStyle Lite Strips (blood sugar diagnostic) check fasting blood sugar twice a day before meals NS gabapentin 800 mg PO TID 30 days lancets (FreeStyle Lancets) As directed twice a day AC lidocaine 4% (Lidocaine Pain Relief) 1 patch See Protocol transdermal DAILY PRN linaclotide (Linzess) 145 mcg PO DAILY losartan 50 mg PO DAILY metformin 1,000 mg PO BID metoclopramide HCl (Reglan) 10 mg PO TIDAC naproxen 500 mg PO BID omeprazole 20 mg PO DAILY psyllium husk (Fiber Laxative (psyllium husk)) 1.04 grams (2 x 0.52 gram) PO BID 90 days rosuvastatin 5 mg PO DAILY simethicone (Anti-Gas Ultra Strength) 180 mg PO QID sitagliptin phosphate (Januvia) 100 mg PO DAILY umeclidinium 62.5 mcg/actuation 1 inh inhalation DAILY Do you need a note to return to daycare/school/sports/work: No HPI EST/weakness and coug/ fever([phone]) HPI Details 63-year-old female presents to the [facility] for a sick visit. Patient is complaining of fullness in the stomach and nausea in the last few days. Minimal belching and burping. At baseline patient has oxygen and smokes a pack a day. Cough and shortness of breath symptoms are at baseline. [facility] Medical History Chronic lung disease COPD (chronic obstructive pulmonary disease) Type 2 diabetes mellitus without complication, with no history of insulin use Mixed dyslipidemia Essential hypertension GERD (gastroesophageal reflux disease) Gastroparesis Diastolic CHF with preserved left ventricular function, NYHA class 2 Chronic hypercapnic respiratory failure Type 2 diabetes mellitus with other diabetic kidney complication Type 2 diabetes mellitus without complication, with no history of insulin use Smoker unmotivated to quit Postlaminectomy syndrome of cervical region Seasonal allergic rhinitis Degenerative disc disease, cervical Postmenopause Dyslipidemia Surgical History H/O cervical discectomy History of esophagogastroduodenoscopy (EGD) Hx of colonoscopy Family History Mother Diabetes Sister Diabetes Mental health disorder Brother Diabetes Father HTN (hypertension) Social History Household Members: Significant Other Housing: Other Housing Other:: Mobile Home 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) Alcohol intake: former Comment: Commode/ Hi Flow O2 Patient Tobacco Use Status: Current everyday Tobacco user Tobacco use type: Cigarette Cigarette Packs Per Day: 1 Cigarettes Per Day: 20.0 Years Smoked: 20 e-Cigarette/Vaping Use: Never Used Second Hand Smoke Exposure: Yes Advance Directives Date on File: 09/20/21 service: No Current occupational status: unemployed Cognitive needs: No Hearing needs: No Vision needs: Yes Physical Exam Vital Signs: Last Vital Signs Temp 97.7 F 09/13/23 11:58 Pulse 98 09/13/23 11:58 BP 126/74 09/13/23 11:58 Pulse Ox 95 09/13/23 11:58 Oxygen Delivery Method Room Air 09/13/23 11:58 BMI result Body Mass Index 25.8 Const General: cooperative and healthy appearing Nutritional Appearance: well nourished Orientation/consciousness: patient oriented x3 Limitations: no limitations HEENT Head: Yes normal to inspection Eyes General: appearance normal, both eyes and all related structures Neck Neck: Yes normal visual inspection Chest Chest palpation & inspection: normal palpation of entire chest wall Resp Effort & Inspection: normal respiratory effort Neuro General: patient oriented x3 Assessment & Plan Assessment & Plan (1) Diabetic gastroparesis: Code(s): E11.43 - Type 2 diabetes mellitus with diabetic autonomic (poly)neuropathy; K31.84 - Gastroparesis Plan: PPI and Zofran called in. If symptoms do not improve to follow-up here. Coding Level of Care Code Est Pt Level 3 (44903) Diagnoses Diabetic gastroparesis E11.43; K31.84
[2023-09-13 11:58] VITALS: BP 126/74; PULSE 98; TEMP 36.5; O2SAT 95; BMI 25.8
== END 2023-09-13 13:39 | disposition home or self-care (01) ==
PROVIDERS: PCP Internal Medicine; Visit Provider Internal Medicine
DX: E11.43 Type 2 diabetes mellitus with diabetic autonomic (poly)neuropathy (principal); K31.84 Gastroparesis
CPT/HCPCS: 99213

== ENCOUNTER 2023-09-16 11:39 | Outpatient (AMB) | payer OTHER, SELFPAY ==
[2023-09-16 11:44] VITALS: BP 124/60; PULSE 106; TEMP 36.6; O2SAT 95; BMI 24.9
--- NOTE | 2023-09-16 11:44 | MHC.OFFWIV ---
Intake Vital Signs 09/16/23 11:44 Height 4 ft 8 in Weight 111 lb BMI 24.9 BP 124/60 Blood Pressure Location Lt brachial Position Sitting Pulse 106 H Pulse Source Pulse Oximeter Temp 97.9 F Temp Source Temporal Artery Scan Pulse Oximetry (%) 95 Oxygen Delivery Method Room Air Intake Visit Reasons: EST/not any better since last visit (jennifer) Intake Note: pt is here today for not feeling better from last visit Patient Tobacco Use Status: Current everyday Tobacco user Allergies amoxicillin [AMOXICILLIN] Allergy (Intermediate, Verified 09/16/23 11:45) RASH Do you need a note to return to daycare/school/sports/work: No HPI HPI Comments History of Present Illness Details 63 y/o female patient [facility] with c/o GI symptoms. Reports Nausea but no vomiting. Symptoms started few days ago. She was seen at [facility] this [facility] and given Antiemetic with no relief. Pt is Diabetic. [facility] Medical History Chronic lung disease COPD (chronic obstructive pulmonary disease) Type 2 diabetes mellitus without complication, with no history of insulin use Mixed dyslipidemia Essential hypertension GERD (gastroesophageal reflux disease) Gastroparesis Diastolic CHF with preserved left ventricular function, NYHA class 2 Chronic hypercapnic respiratory failure Type 2 diabetes mellitus with other diabetic kidney complication Type 2 diabetes mellitus without complication, with no history of insulin use Smoker unmotivated to quit Postlaminectomy syndrome of cervical region Seasonal allergic rhinitis Degenerative disc disease, cervical Postmenopause Dyslipidemia Surgical History H/O cervical discectomy History of esophagogastroduodenoscopy (EGD) Hx of colonoscopy Family History Mother Diabetes Sister Diabetes Mental health disorder Brother Diabetes Father HTN (hypertension) Social History Household Members: Significant Other Housing: Other Housing Other:: Mobile Home Do you presently have visiting 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) Alcohol intake: former Comment: Commode/ Hi Flow O2 Patient Tobacco Use Status: Current everyday Tobacco user Tobacco use type: Cigarette Cigarette Packs Per Day: 1 Cigarettes Per Day: 20.0 Years Smoked: 20 e-Cigarette/Vaping Use: Never Used Second Hand Smoke Exposure: Yes Advance Directives Date on File: 09/20/21 service: No Current occupational status: unemployed Cognitive needs: No Hearing needs: No Vision needs: Yes Review of Systems Const All systems reviewed & are unremarkable except as noted in HPI and below Physical Exam Vital Signs: Last Vital Signs Temp 97.9 F 09/16/23 11:44 Pulse 106 H 09/16/23 11:44 BP 124/60 09/16/23 11:44 Pulse Ox 95 09/16/23 11:44 Oxygen Delivery Method Room Air 09/16/23 11:44 BMI result Body Mass Index 24.9 Const General: no acute distress Nutritional Appearance: malnourished and thin HEENT Head: Yes normocephalic Ears: external ears normal and TM's normal bilaterally General nose exam: Normal nasal mucous membranes and turbinates present Face and sinus: Yes sinuses nontender Mouth: oropharynx normal Throat: Yes posterior oropharynx normal GI Inspection: Yes normal to inspection and Yes obesity Palpation (GI): Soft to palpation and Tenderness to palpation present (GI) in the epigastrum Auscultation: normal bowel sounds Rectal Exam - Female: deferred Assessment & Plan Assessment & Plan (1) Gastritis: Code(s): K29.70 - Gastritis, unspecified, without bleeding Qualifiers: Chronicity: chronic Gastritis bleeding: without bleeding Gastritis type: other gastritis Qualified Code(s): K29.50 - Unspecified chronic gastritis without bleeding Plan: - BLAND diet - warm fluids Orders: Orders SARS-CoV2/FLU/RSV Today K29.50 - Unspecified chronic gastritis without bleeding Medications: Changed From metoclopramide HCl (Reglan) 10 mg PO TIDAC 90 tabs 6RF gastroparesis K29.50 - Unspecified chronic gastritis without bleeding To metoclopramide HCl (Reglan) 10 mg PO Q4-6H 90 tabs 0RF gastroparesis K29.50 - Unspecified chronic gastritis without bleeding Coding Level of Care Code Est Pt Level 3 (87161) Diagnoses Other chronic gastritis without hemorrhage K29.50 Chronicity: chronic Gastritis bleeding: without bleeding Gastritis type: other gastritis Time Spent (min) 15
== END 2023-09-16 13:36 | disposition home or self-care (01) ==
PROVIDERS: PCP Internal Medicine; Visit Provider Nurse Practitioner Family
DX: K29.50 Unspecified chronic gastritis without bleeding (principal)
CPT/HCPCS: 99213

== ENCOUNTER 2023-09-16 13:16 | Outpatient (REF) | payer OTHER, SELFPAY ==
[2023-09-16 14:25] LABS: Influenza A PCR NEGATIVE (Negative); Influenza B PCR NEGATIVE (Negative); Resp Syncy Virus RNA Qual PCR NEGATIVE (Negative); SARS COV2 PCR INHOUSE NEGATIVE (Negative)
== END 2023-09-16 13:17 | disposition home or self-care (01) ==
LOC: HO.LNP 13:16
PROVIDERS: Visit Provider Nurse Practitioner Family
DX: Z11.52 Encounter for screening for COVID-19 (principal); K29.50 Unspecified chronic gastritis without bleeding
CPT/HCPCS: 0241U

== ENCOUNTER 2023-10-25 09:05 | Outpatient (REF) | payer OTHER, SELFPAY ==
[2023-10-25 12:04] LABS: Estimated Average Glucose 111 mg/dL; Hemoglobin A1c % 5.5 % (<6.0)
[2023-10-25 12:10] LABS: Alanine Aminotransferase 7 U/L (0-31); Anion Gap 15 (12-20); Aspartate Amino Transferase 11 U/L (5-31); Blood Urea Nitrogen 13 mg/dL (9-16); Calcium 10.4 mg/dL (8.4-10.2); Carbon Dioxide 32 mmol/L (22-29); Chloride 101 mmol/L (96-108); Cholesterol 162 mg/dL (<200); Estimated Glomerular Filt Rate > 60; Glucose Fasting 142 mg/dL (60-99); HDL Cholesterol 50 mg/dL (>40); LDL Cholesterol Calculated 76 mg/dL (<100); Potassium 3.8 mmol/L (3.3-5.1); Sodium 144 mmol/L (135-145); Triglycerides 181 mg/dL (<150)
[2023-10-25 12:25] LABS: Vitamin D 25-OH Total 72.1 ng/mL (>30)
[2023-10-25 12:49] LABS: Creatinine Urine 12.74 mg/dL; Microalbumin Urine < 5.0 mg/L
== END 2023-10-25 09:06 | disposition home or self-care (01) ==
LOC: HO.HMGCLDS 09:05
PROVIDERS: PCP Internal Medicine; Visit Provider Internal Medicine
DX: I10 Essential (primary) hypertension (principal); E78.2 Mixed hyperlipidemia; E11.9 Type 2 diabetes mellitus without complications; Z78.0 Asymptomatic menopausal state
CPT/HCPCS: 36415; 80048; 80061; 82043; 82306; 82570; 83036; 84450; 84460

== ENCOUNTER 2023-12-20 09:18 | Outpatient (REF) | payer OTHER, SELFPAY ==
[2023-12-20 10:24] LABS: MANUAL DIFF FLAG NO
[2023-12-20 10:46] LABS: Basophils Absolute Auto 0.1 X10*3/uL (0.0-0.2); Basophils Percent Auto 1.4 % (0-2); Eosinophils Absolute Auto 0.3 X10*3/uL (0.0-0.4); Eosinophils Percent Auto 3.8 % (0-4); Hemoglobin 12.9 g/dl (12.0-16.0); Imm Gran Abs Auto 0.05 X10*3/uL (0.00-0.03); Imm Gran Pct Auto 0.6 % (0.0-0.4); Lymphocytes Absolute Auto 2.3 X10*3/uL (1.2-4.9); Lymphocytes Percent Auto 25.2 % (20-40); Mean Corpuscular HGB Conc 30.7 g/dl (31.0-35.0); Mean Corpuscular Volume 84.7 fL (80.0-98.0); Mean Platelet Volume 10.1 fL (9.4-12.3); Monocytes Absolute Auto 0.5 X10*3/uL (0.1-1.2); Neutrophils Absolute Auto 5.7 x10*3/uL (2.0-8.3); Platelet Count 280 X10*3/uL (160-400); Red Blood Count 4.96 X10*6/uL (4.20-5.50); Red Cell Distribution Width 16.1 % (11.0-16.0); White Blood Count 9.1 X10*3/uL (4.8-10.8)
[2023-12-21 15:53] LABS: Calcium, Ionized 5.5 mg/dL (4.7-5.5)
== END 2023-12-20 09:19 | disposition home or self-care (01) ==
LOC: HO.HMGCLDS 09:18
PROVIDERS: PCP Internal Medicine; Visit Provider Internal Medicine
DX: D72.829 Elevated white blood cell count, unspecified (principal); E83.52 Hypercalcemia
CPT/HCPCS: 36415; 82330; 85025

== ENCOUNTER 2023-12-23 14:53 | Outpatient (AMB) | payer OTHER, SELFPAY ==
[2023-12-23 15:43] VITALS: BP 118/58; PULSE 98; O2SAT 93; BMI 27.0
--- NOTE | 2023-12-23 15:43 | MHC.PC.OV ---
Vital Signs 12/23/23 15:43 Height 4 ft 8 in Weight 120 lb 4 oz BMI 27.0 BP 118/58 L Blood Pressure Location Rt brachial Position Sitting Pulse 98 Pulse Source Pulse Oximeter Pulse Oximetry (%) 93 Oxygen Delivery Method Room Air Intake Visit Reasons: 3 month follow up Intake Note: Pt is here today for 3 month follow up. Allergies amoxicillin [AMOXICILLIN] Allergy (Intermediate, Verified 04/15/24 18:14) RASH Medication List - Last Reconciled 04/20/24 by Magalie Nicolas MD albuterol sulfate 2.5 mg inhalation Q6H PRN amlodipine 5 mg PO DAILY aspirin (Adult Low Dose Aspirin) 81 mg PO BEDTIME blood-glucose meter (FreeStyle Lite Meter kit) As directed twice a day before meals cholecalciferol (vitamin D3) 50 mcg PO DAILY flash glucose scanning reader (AmberPointStyle Cristian 2 [place]) test blood sugar 4 times per day flash glucose sensor (FreeStyle Cristian 2 Sensor kit) Test blood sugar 4 times per day fluticasone furoate 200 mcg/actuation (Arnuity Ellipta) 1 inh inhalation DAILY FreeStyle Lite Strips (blood sugar diagnostic) check fasting blood sugar twice a day before meals NS gabapentin 800 mg PO TID 30 days lancets (FreeStyle Lancets) As directed twice a day AC linaclotide (Linzess) 145 mcg PO DAILY losartan 50 mg PO DAILY metformin 1,000 mg PO BID metoclopramide HCl (Reglan) 10 mg PO TIDAC naproxen 500 mg PO BID PRN omeprazole 20 mg PO DAILY@0630 psyllium husk (Fiber Laxative (psyllium husk)) 1.04 grams PO BID rosuvastatin 5 mg PO DAILY simethicone 180 mg PO QID sitagliptin phosphate (Januvia) 100 mg PO DAILY umeclidinium 62.5 mcg/actuation 1 inh inhalation DAILY Tobacco use date assessed: 12/23/23 Dental Screening Dental Screen Date: 12/23/23 Did you have a dental visit in the last 12 months?: Yes Did you have a dental problem in the last 6 months where you did not have access to dental care?: No Was dental information given to patient?: Patient has dentist HPI 3 month follow up HPI Details 63-year-old lady with diabetes mellitus, hyperlipidemia, hypertension, here today for follow-up. Has been compliant with taking medications . Unfortunately continues to smoke cigarettes and unable to do any meaningful exercise due to getting short of breath on exertion. She has COPD currently followed at [facility].. Recent fasting labs showed hemoglobin A1c at 5.5%, and hypertension and lipids stable and well controlled on present treatment. Denies any complaints at present time [facility]PLACED BY [facility] Medical History Chronic lung disease COPD (chronic obstructive pulmonary disease) Type 2 diabetes mellitus without complication, with no history of insulin use Mixed dyslipidemia Essential hypertension GERD (gastroesophageal reflux disease) Gastroparesis Diastolic CHF with preserved left ventricular function, NYHA class 2 Chronic hypercapnic respiratory failure Type 2 diabetes mellitus with other diabetic kidney complication Type 2 diabetes mellitus without complication, with no history of insulin use Smoker unmotivated to quit Postlaminectomy syndrome of cervical region Seasonal allergic rhinitis Degenerative disc disease, cervical Postmenopause Dyslipidemia Surgical History H/O cervical discectomy History of esophagogastroduodenoscopy (EGD) Hx of colonoscopy Family History Mother Diabetes Sister Diabetes Mental health disorder Brother Diabetes Father HTN (hypertension) Social History Household Members: Significant Other Housing: Other Housing Other:: mobile home 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 Wiley Caballero, Sharmila Paez, Iraj Hernandez and colleagues, with an educational radha from [employer]. Review of Systems Const Denies fatigue, Denies fever(s), Denies night sweats and Denies poor appetite Eyes Details: Glasses Reports requires corrective lenses ENT Reports Normal hearing present, Denies dysphagia, Denies odynophagia, Denies throat swelling and Denies tongue swelling Card Denies chest pain, Denies chest pain with activity, Reports rapid heart rate, Denies lightheadedness and Reports dyspnea on exertion Resp Denies hemoptysis and Reports dyspnea on exertion GI Denies abdominal pain, Denies melena, Reports bloating, Denies hematochezia, Reports constipation, Denies GI cramping, Denies dysphagia, Denies excessive flatus, Reports heartburn (Controlled on PPI), Denies diarrhea, Denies nausea, Denies odynophagia, Denies vomiting and Denies hematemesis Reports no additional complaints Musc Reports stiffness Skin/Breast Denies pruritus, Denies lesions, Denies rash and Denies jaundice Neuro Reports Normal hearing present and Denies Abnormal speech present Endo Denies fatigue, Denies polydipsia and Denies polyuria Patel/Lymph Denies easy bleeding and Denies easy bruising Aller/Immun Denies throat swelling and Denies tongue swelling Physical exam (Primary Care) Vital Signs: Last Vital Signs Pulse 98 12/23/23 15:43 BP 118/58 L 12/23/23 15:43 Pulse Ox 93 12/23/23 15:43 Oxygen Delivery Method Room Air 12/23/23 15:43 BMI result Body Mass Index 27.0 Tobacco/Smoking Status: Tobacco use Status Tobacco use date assessed 12/23/23 12/23/23 15:47 Patient Tobacco Use Status Current everyday Tobacco 12/23/23 15:47 Tobacco use type Cigarette 12/23/23 15:47 e-Cigarette/Vaping Use Never Used 12/23/23 15:47 Are you ready to quit: No Tobacco cessation counseling provided: Yes Thrive Assessment: Date of Thrive Assessment Date Thrive assessed 08/02/23 12/23/23 15:47 Const Other: Alert oriented x3, no acute cardiorespiratory distress noted, ambulatory with normal gait HENMT Ears: external ears normal General nose exam: Normal external nose present and No nasal discharge present Mouth: oropharynx normal and moist mucous membranes Eyes General: appearance normal, both eyes and all related structures Neck Neck: Yes full ROM, Yes no lymphadenopathy and Yes supple Resp Other: on portable O2 at 2 L/NC Effort & Inspection: normal respiratory effort and able to speak in complete sentences Auscultation: no rales, no wheezes and diminished lung sounds Cardio Other: S1-S2 present regular rate and rhythm Rate: regular rate Rhythm: regular rhythm Heart sounds: S1 normal heart sound present and S2 normal heart sound present GI Other: Normal bowel sounds, soft, nontender, no mass palpated Skin General skin exam: no rashes or lesions noted Neuro General: gait normal, tone normal, moves all extremities, Normal light touch and pain sensation and no focal motor deficits Cranial nerves: Yes Normal hearing present Cognition (Neuro): normal cognition Speech: No Abnormal speech present Gait exam (Neuro): Normal gait present Motor exam (neuro): 5/5 motor strength present throughout Extrem General: Yes full ROM, Yes no joint enlargement, Yes no pedal edema, Yes no calf tenderness and Yes normal gait Results Reviewed Results Reviewed: Name: Maria Elena Kingston Age/Sex: 63/F : 1960 Unit#: [id number] Attend Dr: Magalie Nicolas MD Re12/20/23 Status: DEP REF Location: [facility] Disch: SPEC : [id number] SEUN: 12/20/23 STATUS: COMP REQ : [id number] RECD: 12/20/[address]: Magalie Nicolas MD COMP: 12/20/23 ENTERED: 12/20/23 [facility] DR: ORDERED: CBC Auto Diff Test Result Flag Reference WBC 9.1 4.8-10.8 X10*3/uL RBC 4.96 4.20-5.50 X10*6/uL HGB 12.9 12.0-16.0 g/dl HCT 42.0 37.0-47.0 % MCV 84.7 80.0-98.0 fL MCH 26.0 L 27.0-33.0 pg MCHC 30.7 L 31.0-35.0 g/dl RDW 16.1 H 11.0-16.0 % PLT 280 160-400 X10*3/uL MPV 10.1 9.4-12.3 fL Neut Pct Auto 63.0 45-73 % ImGran Pct Auto 0.6 H 0.0-0.4 % Lymp Pct Auto 25.2 20-40 % Alpine Pct Auto 6.0 2-11 % Eos Pct Auto 3.8 0-4 % Baso Pct Auto 1.4 0-2 % NRBC Pct Auto 0.0 0.0-0.2 /100WBC ANC Neut Abs # 5.7 2.0-8.3 x10*3/uL ImGran Abs Auto 0.05 H 0.00-0.03 X10*3/uL Lymph Abs Auto 2.3 1.2-4.9 X10*3/uL Alpine Abs Auto 0.5 0.1-1.2 X10*3/uL Eos Abs Auto 0.3 0.0-0.4 X10*3/uL Baso Abs Auto 0.1 0.0-0.2 X10*3/uL NRBC Abs Auto 0.000 0.0-0.012 X10*3/uL Name: Maria Elena Kingston Age/Sex: 63/F : 1960 Unit#: [id number] Attend Dr: Magalie Nicolas MD Re10/25/23 Status: DEP REF Location: [facility] Disch: SPEC : [id number] SEUN: 10/25/23 STATUS: COMP REQ : [id number] RECD: 10/25/23-[address]: Magalie Nicolas MD COMP: 10/25/23-5 ENTERED: 10/25/23-0908 [facility] DR: ORDERED: Met Prof Fast, AST, ALT, Lipid Panel, Vitamin D 25-OH Test Result Flag Reference Sodium 144 135-145 mmol/L Potassium 3.8 3.3-5.1 mmol/L CL 101 96-108 mmol/L CO2 32 H 22-29 mmol/L Gap 15 12-20 BUN 13 9-16 mg/dL Creat 0.52 0.5-1.4 mg/dL EGFR > 60 NOTE: For -[place] individuals, multiply the result by 1.210. Chronic Kidney Disease: Estimated GFR < 60 mL/min/1.73m2 Severe Kidney Disease: Estimated GFR < 15 mL/min/1.73m2 FBS 142 H 60-99 mg/dL A fasting glucose of 126 mg/dl or greater on more than one occasion is considered diagnostic of diabetes. CA 10.4 H 8.4-10.2 mg/dL AST (GOT) 11 5-31 U/L ALT (GPT) 7 0-31 U/L Triglyceride 181 H <150 mg/dL Desirable Triglyceride: less than 150 mg/dL Borderline High Triglyceride 150-199 mg/dL High Triglyceride: 200-499 mg/dL Very High Triglyceride: greater than or equal to 5OO mg/dL Cholesterol 162 <200 mg/dL Desirable Cholesterol: less than 200 mg/dL Borderline High Cholesterol: 200-239 mg/dL High Cholesterol: greater than 239 mg/dL LDL Calculated 76 <100 mg/dL Desirable LDL: less than 100 mg/dL Near Optimal/Above Optimal LDL: 110-129 mg/dL Borderline High LDL: 130-159 mg/dL High LDL: 160-189 mg/dL Very High LDL: greater than or equal to 190 mg/dL HDL 50 >40 mg/dL Desirable HDL: greater than 40 mg/dL Note: This HDL assay may give artificially low results in patients with liver disease. Vit D 25-OH Tot 72.1 >30 ng/mL Health Based Reference Values* < 20 ng/mL Deficient 20-30 ng/mL Insufficient > 30 ng/mL Sufficient Laboratory Tests 12/20/23 09:23 Ionized Calcium 5.5 Laboratory Tests 10/25/23 09:09 Estimat Average Glucose 111 Hemoglobin A1c % 5.5 Assessment and Plan Assessment & Plan (1) Type 2 diabetes mellitus without complication, with no history of insulin use: Code(s): E11.9 - Type 2 diabetes mellitus without complications Plan: Diabetes mellitus stable and controlled on present treatment current continue with metformin 1000 mg 1 tablet twice a day in addition to Januvia 100 mg once daily. Latest hemoglobin A1c is at 5.5%. (2) Essential hypertension: Code(s): I10 - Essential (primary) hypertension Plan: Blood pressure at goal of less than 130/80. Encouraged strongly to quit smoking. Reinforced importance of following a low sodium diet, getting regular exercise, and lowering stress levels. (3) Mixed dyslipidemia: Code(s): E78.2 - Mixed hyperlipidemia Plan: Reviewed recent fasting lipid profile with patient with levels within normal limit . Continue rosuvastatin 5 mg daily , in addition to adherence to low-cholesterol diet and regular exercise, at least 30 minutes 3 to 4 times a week. Advised patient to make healthy food choices, eat more fruits, vegetables, whole grains, wild caught fish and low-fat dairy. Limit amount of meat and fried or fatty food products, as well as processed foods and fast foods. Follow-up scheduled with repeat fasting lipid panel in 4 months. Orders: Orders Alanine Aminotransferase 05/08/24 E11.9 - Type 2 diabetes mellitus without complications, I10 - Essential (primary) hypertension, E78.2 - Mixed hyperlipidemia Aspartate Amino Transferase 05/08/24 E11.9 - Type 2 diabetes mellitus without complications, I10 - Essential (primary) hypertension, E78.2 - Mixed hyperlipidemia Basic Metabolic Panel Fasting 05/08/24 E11.9 - Type 2 diabetes mellitus without complications, I10 - Essential (primary) hypertension, E78.2 - Mixed hyperlipidemia Hemoglobin A1c 05/08/24 E11.9 - Type 2 diabetes mellitus without complications, I10 - Essential (primary) hypertension, E78.2 - Mixed hyperlipidemia Lipid Panel 05/08/24 E11.9 - Type 2 diabetes mellitus without complications, I10 - Essential (primary) hypertension, E78.2 - Mixed hyperlipidemia Coding Level of Care Code Est Pt Level 4 (69601) Complex EM visit Add On G2211 Diagnoses Type 2 diabetes mellitus without complication, with no history of insulin use E11.9 Essential hypertension I10 Mixed dyslipidemia E78.2
== END 2023-12-23 16:29 | disposition home or self-care (01) ==
PROVIDERS: PCP Internal Medicine; Visit Provider Internal Medicine
DX: E11.9 Type 2 diabetes mellitus without complications (principal); I10 Essential (primary) hypertension; E78.2 Mixed hyperlipidemia
CPT/HCPCS: 99214; G2211

== ENCOUNTER 2023-12-30 13:51 | Outpatient (AMB) | payer OTHER, SELFPAY ==
[2023-12-30 13:53] VITALS: BP 162/77; PULSE 102; BMI 27.4
--- NOTE | 2023-12-30 13:53 | A.OFFVIS_ITS ---
Vital Signs 12/30/23 13:53 Height 4 ft 8 in Intake Visit Reasons: follow up 3 months Allergies amoxicillin [AMOXICILLIN] Allergy (Intermediate, Verified 12/23/23 15:45) RASH [facility] Medical History (Updated 10/29/23 @ 14:27 by Magalie Nicolas MD) Chronic lung disease COPD (chronic obstructive pulmonary disease) Type 2 diabetes mellitus without complication, with no history of insulin use Mixed dyslipidemia Essential hypertension GERD (gastroesophageal reflux disease) Gastroparesis Diastolic CHF with preserved left ventricular function, NYHA class 2 Chronic hypercapnic respiratory failure Type 2 diabetes mellitus with other diabetic kidney complication Type 2 diabetes mellitus without complication, with no history of insulin use Smoker unmotivated to quit Postlaminectomy syndrome of cervical region Seasonal allergic rhinitis Degenerative disc disease, cervical Postmenopause Dyslipidemia Surgical History H/O cervical discectomy History of esophagogastroduodenoscopy (EGD) Hx of colonoscopy Family History Mother Diabetes Sister Diabetes Mental health disorder Brother Diabetes Father HTN (hypertension) Social History Household Members: Significant Other Housing: Other Housing Other:: Mobile Home 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
--- NOTE | 2023-12-30 13:53 | MHC.OFFVIS ---
Vital Signs 12/30/23 13:53 Height 4 ft 8 in Weight 122 lb 2.177 oz BMI 27.4 BP 162/77 H Blood Pressure Location Rt brachial Position Sitting Pulse 102 H Intake Visit Reasons: follow up 3 months Intake Note: Maria Elena returns to office today in follow up of constipation. CC: She reports that the Linzess has helped her with the constipation ans she is doing well. Denies any new GI concerns today. Residential Subcontractor Required: No Accompanied by: Self / Same As Patient Allergies amoxicillin [AMOXICILLIN] Allergy (Intermediate, Verified 01/27/24 13:38) RASH Medication List - Last Reconciled 12/30/23 by ELVIS Valdez albuterol sulfate 90 mcg/actuation 2 puffs inhalation Q4-6H PRN albuterol sulfate 2.5 mg inhalation Q6H PRN amitriptyline 50 mg (2 x 25 mg) PO BEDTIME 30 days amlodipine 5 mg PO DAILY aspirin (Adult Low Dose Aspirin) 81 mg PO BEDTIME blood-glucose meter (FreeStyle Lite Meter kit) As directed twice a day before meals cholecalciferol (vitamin D3) 50 mcg PO DAILY flash glucose scanning reader (FreeStyle Cristian 2 [place]) test blood sugar 4 times per day flash glucose sensor (FreeStyle Cristian 2 Sensor kit) Test blood sugar 4 times per day fluticasone furoate 200 mcg/actuation (Arnuity Ellipta) 1 inh inhalation DAILY FreeStyle Lite Strips (blood sugar diagnostic) check fasting blood sugar twice a day before meals NS gabapentin 800 mg PO TID 30 days lancets (FreeStyle Lancets) As directed twice a day AC lidocaine 4% (Lidocaine Pain Relief) 1 patch See Protocol transdermal DAILY PRN linaclotide (Linzess) 145 mcg PO QAM losartan 50 mg PO DAILY metformin 1,000 mg PO BID metoclopramide HCl (Reglan) 10 mg PO Q4-6H naproxen 500 mg PO BID PRN omeprazole 20 mg PO DAILY peg 3350-electrolytes 236-22.74-6.74 -5.86 gram (Golytely) 240 mL PO Q10M prochlorperazine maleate (Compazine) 10 mg PO BID PRN psyllium husk (Fiber Laxative (psyllium husk)) 1.04 grams (2 x 0.52 gram) PO BID 90 days rosuvastatin 5 mg PO DAILY simethicone (Anti-Gas Ultra Strength) 180 mg PO QID sitagliptin phosphate (Januvia) 100 mg PO DAILY umeclidinium 62.5 mcg/actuation 1 inh inhalation DAILY HPI HPI follow up 3 months: Details: Assessment & Plan (1) GERD (gastroesophageal reflux disease): Code(s): K21.9 - Gastro-esophageal reflux disease without esophagitis Qualifiers: Esophagitis presence: without esophagitis Qualified Code(s): K21.9 - Gastro-esophageal reflux disease without esophagitis (2) Chronic idiopathic constipation: Code(s): K59.04 - Chronic idiopathic constipation (3) Diabetic gastroparesis: Code(s): E11.43 - Type 2 diabetes mellitus with diabetic autonomic (poly)neuropathy; K31.84 - Gastroparesis Plan She says she has missed appointments 3 times because she was hospitalized for her COPD. She and her s/o are now trying to quit smoking. She continues on her Linzess 145 micro g, omeprazole 20 mg a day, fiber supplement, simethicone, and Reglan with good control of her constipation, gastroparesis in GERD. She feels she is stable. We will hold off on colonoscopy until she has had a good long period of respiratory stability. ROV 3 mos or in late November. Medications: New linaclotide (Linzess) 145 mcg PO DAILY 30 caps 6RF simethicone (Anti-Gas Ultra Strength) 180 mg PO QID 90 caps 6RF Changed From psyllium husk 1.04 grams (2 x 0.52 gram) PO BID 90 days 360 caps 3RF K59.04 - Chronic idiopathic constipation To psyllium husk (Fiber Laxative (psyllium husk)) 1.04 grams (2 x 0.52 gram) PO BID 360 caps 3RF 90 days K59.04 - Chronic idiopathic constipation Refilled metoclopramide HCl (Reglan) 10 mg PO TIDAC 90 tabs 6RF gastroparesis omeprazole 20 mg PO DAILY 90 caps 2RF K21.9 - Gastro-esophageal reflux disease without esophagitis Laboratory Tests 10/25/23 12/20/23 09:09 09:23 WBC 9.1 Hgb 12.9 Hct 42.0 Plt Count 280 Estimated GFR > 60 AST 11 ALT 7 TODAY'S VISIT She has been well and is agreeable to scheduling colonoscopy. She has COPD that is currently controlled and diastolic heart failure that is controlled. There are no prior problems with anesthesia or sedation. There are no infectious disease problems. She continues on her Linzess 145 micro g, omeprazole 20 mg a day, fiber supplement, simethicone, and Reglan with good control of her constipation, gastroparesis in GERD. She feels she is stable. Her last colonoscopy was in 2012 and was negative. There is no known family history of colon cancer or polyps. ROV 6 mos. PFS Medical History Chronic lung disease COPD (chronic obstructive pulmonary disease) Type 2 diabetes mellitus without complication, with no history of insulin use Mixed dyslipidemia Essential hypertension GERD (gastroesophageal reflux disease) Gastroparesis Diastolic CHF with preserved left ventricular function, NYHA class 2 Chronic hypercapnic respiratory failure Type 2 diabetes mellitus with other diabetic kidney complication Type 2 diabetes mellitus without complication, with no history of insulin use Smoker unmotivated to quit Postlaminectomy syndrome of cervical region Seasonal allergic rhinitis Degenerative disc disease, cervical Postmenopause Dyslipidemia Surgical History H/O cervical discectomy History of esophagogastroduodenoscopy (EGD) Hx of colonoscopy Family History Mother Diabetes Sister Diabetes Mental health disorder Brother Diabetes Father HTN (hypertension) Social History Household Members: Significant Other Housing: Other Housing Other:: Mobile Home Do you presently have visiting nurse or other home services: Yes ([employer]) Alcohol intake: former Comment: Commode/ Hi Flow O2 Patient Tobacco Use Status: Current everyday Tobacco user Tobacco use type: Cigarette Cigarette Packs Per Day: 1 Cigarettes Per Day: 20.0 Years Smoked: 20 e-Cigarette/Vaping Use: Never Used Second Hand Smoke Exposure: Yes Advance Directives Date on File: 09/20/21 service: No Current occupational status: unemployed Cognitive needs: No Hearing needs: No Vision needs: Yes Review of Systems Const Denies fatigue, Denies fever(s), Denies night sweats, Denies poor appetite and Denies weight loss Eyes Details: Glasses Reports requires corrective lenses ENT Reports Normal hearing present, Denies dental pain, Denies dysphagia, Denies hearing loss, Denies mouth pain, Denies odynophagia, Denies throat swelling, Denies tongue swelling and Reports other (Dentition adequate) Card Reports no additional complaints Resp Reports no additional complaints GI Details: Denies abdominal pain, Denies melena, Denies bloating, Denies hematochezia, Denies constipation, Denies GI cramping, Denies dysphagia, Denies excessive flatus, Reports early satiety, Reports heartburn, Denies diarrhea, Denies nausea, Denies odynophagia, Denies vomiting and Denies hematemesis Skin/Breast Denies pruritus, Denies lesions, Denies rash and Denies jaundice Neuro Reports Normal hearing present and Denies Abnormal speech present Endo Denies fatigue Aller/Immun Denies throat swelling and Denies tongue swelling Physical Exam Vital Signs: Last Vital Signs Pulse 102 H 12/30/23 13:53 BP 162/77 H 12/30/23 13:53 BMI result Body Mass Index 27.4 Const General: cooperative, no acute distress, well developed and well groomed Nutritional Appearance: well nourished and obese Orientation/consciousness: oriented to person, oriented to place and oriented to time Limitations: No language barrier HEENT Head: Yes normocephalic and Yes atraumatic Eyes General: appearance normal, both eyes and all related structures Pupils: Equal, round and reactive pupils present Neck Neck: Yes normal visual inspection and Yes no lymphadenopathy Thyroid: Thyroid normal Resp Effort & Inspection: normal respiratory effort and able to speak in complete sentences Auscultation: clear to auscultation bilaterally Cardio Rate: regular rate Rhythm: regular rhythm Heart sounds: Normal, physiologic split S2 sound present Peripheral pulses: radial pulses present and posterior tibial pulses present GI Inspection: No distended, No Abdominal panniculus present and Yes obesity Palpation (GI): Soft to palpation, nontender, no guarding, not rigid and No hepatosplenomegaly present Percussion: Yes normal to percussion Auscultation: normal bowel sounds Rectal Exam - Female: deferred Skin General skin exam: no rashes or lesions noted, turgor normal, skin not dry, no jaundice, No spider nevi and no striae Rashes: no rashes Nails: normal Neuro General: oriented to person, oriented to place and oriented to time Cranial nerves: Yes Equal, round and reactive pupils present and Yes Normal hearing present Speech: No Abnormal speech present Extrem General: Yes normal to inspection, No clubbing, No cyanosis and No edema Psych Appearance: grossly normal and well kempt Mental Status: mental status grossly normal Speech and movement: Normal speech and movement present Affect: normal affect Attitude: cooperative Thought process: Normal thought process present and not confabulating Thought content: Normal thought content present Insight: Limited insight present (Psych) Judgement: Limited judgement present (Psych) Assessment & Plan Assessment & Plan (1) GERD (gastroesophageal reflux disease): Code(s): K21.9 - Gastro-esophageal reflux disease without esophagitis Category: Medical Qualifiers: Esophagitis presence: without esophagitis Qualified Code(s): K21.9 - Gastro-esophageal reflux disease without esophagitis (2) Diabetic gastroparesis: Code(s): E11.43 - Type 2 diabetes mellitus with diabetic autonomic (poly)neuropathy; K31.84 - Gastroparesis Category: Medical (3) Chronic idiopathic constipation: Code(s): K59.04 - Chronic idiopathic constipation Category: Medical (4) Pre-op examination: Code(s): Z01.818 - Encounter for other preprocedural examination Category: Medical Plan She has been well and is agreeable to scheduling colonoscopy. She has COPD that is currently controlled and diastolic heart failure that is controlled. There are no prior problems with anesthesia or sedation. There are no infectious disease problems. She continues on her Linzess 145 micro g, omeprazole 20 mg a day, fiber supplement, simethicone, and Reglan with good control of her constipation, gastroparesis in GERD. She feels she is stable. Her last colonoscopy was in 2012 and was negative. There is no known family history of colon cancer or polyps. ROV 6 mos. Orders: Orders Colonoscopy - GI Use Only 12/30/23 Z01.818 - Encounter for other preprocedural examination Coding Level of Care Code Est Pt Level 4 (34497) Diagnoses Gastroesophageal reflux disease without esophagitis K21.9 Esophagitis presence: without esophagitis Diabetic gastroparesis E11.43; K31.84 Chronic idiopathic constipation K59.04 Pre-op examination Z01.818
== END 2023-12-30 14:28 | disposition home or self-care (01) ==
PROVIDERS: PCP Internal Medicine; Visit Provider Nurse Practitioner
DX: K21.9 Gastro-esophageal reflux disease without esophagitis (principal); E11.43 Type 2 diabetes mellitus with diabetic autonomic (poly)neuropathy; K31.84 Gastroparesis; K59.04 Chronic idiopathic constipation; Z01.818 Encounter for other preprocedural examination
CPT/HCPCS: 99214

== ENCOUNTER → 2023-12-30 13:51 | Outpatient (BNVA) | payer OTHER, SELFPAY | PROVIDERS: PCP Internal Medicine; Visit Provider Nurse Practitioner | DX: Z01.818 Encounter for other preprocedural examination (principal); K59.04 Chronic idiopathic constipation; K21.9 Gastro-esophageal reflux disease without esophagitis; E11.43 Type 2 diabetes mellitus with diabetic autonomic (poly)neuropathy; K31.84 Gastroparesis | CPT/HCPCS: 99212 ==

== ENCOUNTER 2024-01-17 14:59 | Outpatient (AMB) | payer OTHER, SELFPAY ==
--- NOTE | 2024-01-17 15:02 | A.OFFVIS_ITS ---
Vital Signs 01/17/24 15:08 Height 4 ft 8 in Weight 123 lb 8 oz BMI 27.7 BP 142/68 H Blood Pressure Location Lt brachial Position Sitting Respiration 14 Pulse 102 H Pulse Source Pulse Oximeter Pulse Oximetry (%) 84 L Oxygen Delivery Method Room Air Intake Visit Reasons: Medication review Intake Note: Patient comes in for medication review. Allergies amoxicillin [AMOXICILLIN] Allergy (Intermediate, Verified 01/17/24 15:07) RASH HPI Comments Details: Maria Elena presents in my office with complains on cervicalgia. She is here today to receive a refill on her amitriptyline. She reports amitriptyline helps her pain without side effects. I sent her for the Chem 20 and prescribed her the amitriptyline medication. However today the Chem 20 came back with slightly elevated level of alk-phos. I would need to invite this patient for yet another appointment in 2 weeks and send her for yet another comprehensive metabolic panel. She continues to endorse pain in the neck with radiation on to the left arm. She reports that medication I prescribed to her gabapentin and mitriptyline make her pain slightly better. She understand that limitation of the medications. She denies any side effects from the medications. I will renew her medications amitriptyline and gabapentin as below. SCS Nevro was again offered to the patient again she refused. She was last seen in this office more than year ago in 2021, before that in March 2021, before that she was seen in February of 2020 She has a history of ceased 5 C6 ACDF by [place] 2012. HER PAIN HAD STARTED ABOUT 2 YEARS PRIOR TO SURGERY.? She reported yard work was the cause of her pain.? She had conservative treatment including physical therapy, she received some injections without benefits, she subsequently had surgery at [facility].? She was treated by chiropractor without significant benefits.? She was taking NSAIDs without benefits.?With me she received interlaminar C6-C7 epidural steroid injection in her neck.? Technically it was very?difficult ?procedure.? The patient has very short neck and hardware in her tear portion of the neck was obstructing the view of the needle advancing to were the epidural space.? No pain relieve after the injection.? She was offered NEVRO spinal cord stimulator.? [facility] reports that gabapentin to 4 pills 800 mg a day and amitriptyline to 50 mg a day provide significant pain relief for her without any noticeable side effects. [facility] Medical History Chronic lung disease COPD (chronic obstructive pulmonary disease) Type 2 diabetes mellitus without complication, with no history of insulin use Mixed dyslipidemia Essential hypertension GERD (gastroesophageal reflux disease) Gastroparesis Diastolic CHF with preserved left ventricular function, NYHA class 2 Chronic hypercapnic respiratory failure Type 2 diabetes mellitus with other diabetic kidney complication Type 2 diabetes mellitus without complication, with no history of insulin use Smoker unmotivated to quit Postlaminectomy syndrome of cervical region Seasonal allergic rhinitis Degenerative disc disease, cervical Postmenopause Dyslipidemia Surgical History H/O cervical discectomy History of esophagogastroduodenoscopy (EGD) Hx of colonoscopy Family History Mother Diabetes Sister Diabetes Mental health disorder Brother Diabetes Father HTN (hypertension) Social History Household Members: Significant Other Housing: Other Housing Other:: Mobile Home Do you presently have visiting nurse 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) Alcohol intake: former Comment: Commode/ Hi Flow O2 Patient Tobacco Use Status: Current everyday Tobacco user Tobacco use type: Cigarette Cigarette Packs Per Day: 1 Cigarettes Per Day: 20.0 Years Smoked: 20 e-Cigarette/Vaping Use: Never Used Second Hand Smoke Exposure: Yes Advance Directives Date on File: 09/20/21 service: No Current occupational status: unemployed Cognitive needs: No Hearing needs: No Vision needs: Yes Review of Systems Const All systems reviewed & are unremarkable except as noted in HPI and below ENT Reports Normal hearing present Neuro Reports Normal hearing present, Denies Abnormal speech present and Denies Sensory deficit (Neuro) Physical Exam Vital Signs: Last Vital Signs Pulse 102 H 01/17/24 15:08 Resp 14 01/17/24 15:08 BP 142/68 H 01/17/24 15:08 Pulse Ox 84 L 01/17/24 15:08 Oxygen Delivery Method Room Air 01/17/24 15:08 BMI result Body Mass Index 27.7 Const General: no acute distress Nutritional Appearance: obese morbidly obese Orientation/consciousness: patient oriented x3 Eyes General: appearance normal, both eyes and all related structures Pupils: Equal, round and reactive pupils present EOM: EOMs intact bilaterally Neck Neck: Yes full ROM Chest Chest palpation & inspection: normal inspection of the chest Resp Effort & Inspection: normal respiratory effort, able to speak in complete sentences, normal respiratory pattern, no audible wheezes and no cough Cardio Jugular venous distension: no JVD GI Inspection: Yes normal to inspection Back/Spine/Pelvis Other: Cervical Spine/Neck: ? C SPINE EXAM:?Myofascial trigger points are present, well-healed surgical scar ACDF.? RANGE OF MOTION OF NECK:?normal in all directions, full cervical ROM, mild pain with side bending b/l.? REFLEXES:?Brachioradialis and biceps brachii seem to be symmetrical, however left triceps reflex seem to be diminished on the left..? SENSATIONS:? diminished sensation to light touch in left hand.? 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 VERTEBRAL SPINE TENDERNESS:?absent.? PARASPINAL MUSCLE SPASM:?absent bilaterally.? TRAPEZIUS TENDERNESS:?present bilaterally Neuro General: patient oriented x3 and gait normal Cranial nerves: Yes CN's II-XII intact bilaterally, Yes Equal, round and reactive pupils present, Yes Normal hearing present and Yes Ability to bilaterally elevate shoulders present Speech: No Abnormal speech present Gait exam (Neuro): Normal gait present Motor exam (neuro): 5/5 motor strength present throughout Sensory Exam: No Sensory deficit (Neuro) Extrem General: No pedal edema Assessment & Plan Assessment & Plan (1) Type 2 diabetes mellitus without complication, with no history of insulin use: Code(s): E11.9 - Type 2 diabetes mellitus without complications Category: Medical (2) [facility]chronic obstructive pulmonary disease): [facility] Code(s): J44.9 - Chronic obstructive pulmonary disease, unspecified Category: Medical Qualifiers: COPD type: COPD with acute exacerbation Qualified Code(s): J44.1 - Chronic obstructive pulmonary disease with (acute) exacerbation Plan This patient came today to renew her prescription of amitriptyline. She was sent for comprehensive metabolic panel. It demonstrated slightly elevated level of alkaline phosphatase. Amitriptyline could be the cause of elevated alkaline phosphatase and could cause cholestasis and obstruction of the biliary ducts. I will invite this patient for the appointment in 2 weeks again. I will send her for yet another comprehensive metabolic panel. If alk phos is for the elevated I will stop amitriptyline. Orders: Orders Comprehensive Met. Panel 01/17/24 E11.9 - Type 2 diabetes mellitus without complications, J44.1 - Chronic obstructive pulmonary disease with (acute) exacerbation Medications: Refilled amitriptyline 50 mg (2 x 25 mg) PO BEDTIME 30 days 60 tabs 6RF Coding Level of Care Code Est Pt Level 3 (99191) Diagnoses Type 2 diabetes mellitus without complication, with no history of insulin use E11.9 Chronic obstructive pulmonary disease with acute exacerbation J44.1 COPD type: COPD with acute exacerbation
[2024-01-17 15:08] VITALS: BP 142/68; PULSE 102; RESP 14; O2SAT 84; BMI 27.7
== END 2024-01-17 15:13 | disposition home or self-care (01) ==
PROVIDERS: PCP Internal Medicine; Visit Provider Anesthesiology
DX: M54.2 Cervicalgia (principal); E11.9 Type 2 diabetes mellitus without complications; J44.1 Chronic obstructive pulmonary disease with (acute) exacerbation
CPT/HCPCS: 99213

== ENCOUNTER 2024-01-17 14:59 | Outpatient (REF) | payer OTHER, SELFPAY ==
[2024-01-17 16:49] LABS: Alanine Aminotransferase 10 U/L (0-31); Albumin Level 4.5 g/dL (3.5-5.0); Alkaline Phosphatase 124 U/L (39-117); Anion Gap 15 (12-20); Aspartate Amino Transferase 11 U/L (5-31); Bilirubin Total 0.2 mg/dL (0.0-1.0); Blood Urea Nitrogen 16 mg/dL (9-16); Calcium 10.5 mg/dL (8.4-10.2); Carbon Dioxide 24 mmol/L (22-29); Chloride 103 mmol/L (96-108); Estimated Glomerular Filt Rate > 60; Glucose Random 127 mg/dL (60-115); Potassium 3.9 mmol/L (3.3-5.1); Sodium 138 mmol/L (135-145); Total Protein 7.6 g/dL (6.5-8.0)
== END 2024-01-17 15:00 | disposition home or self-care (01) ==
LOC: HO.LAB 14:59
PROVIDERS: PCP Internal Medicine; Visit Provider Anesthesiology
DX: E11.9 Type 2 diabetes mellitus without complications (principal); J44.1 Chronic obstructive pulmonary disease with (acute) exacerbation
CPT/HCPCS: 36415; 80053; 99212

== ENCOUNTER 2024-01-27 13:28 | Outpatient (AMB) | payer OTHER, SELFPAY ==
--- NOTE | 2024-01-27 13:33 | MHC.OFFVIS ---
Vital Signs 01/27/24 13:39 Height 4 ft 8 in Weight 125 lb 2 oz BMI 28.0 BP 142/68 H Blood Pressure Location Lt brachial Position Sitting Respiration 14 Pulse 103 H Pulse Source Pulse Oximeter Pulse Oximetry (%) 88 L Oxygen Delivery Method Room Air Intake Visit Reasons: FOLLOW UP FOR LAB WORK Intake Note: Patient comes in for follow up and discuss results. Reports pain 03/25. Allergies amoxicillin [AMOXICILLIN] Allergy (Intermediate, Verified 01/27/24 13:38) RASH HPI Comments Details: Maria Elena presents in my office with complains on cervicalgia. She was under medical management with me unsuccessful epidural steroid injection cervical C6-C7-see below. She was placed on gabapentin and amitriptyline. Gabapentin gives her no side effects however after we send her for the labs elevated alk-phos was discovered. Presumption was made that it is because of the amitriptyline. I will stop this medication. I will prescribe her baclofen 10 mg t.i.d. instead. She continues to endorse pain in the neck with radiation on to the left arm. She has a history of ceased 5 C6 ACDF by [place] 2012. HER PAIN HAD STARTED ABOUT 2 YEARS PRIOR TO SURGERY.? She reported yard work was the cause of her pain.? She had conservative treatment including physical therapy, she received some injections without benefits, she subsequently had surgery at [facility].? She was treated by chiropractor without significant benefits.? She was taking NSAIDs without benefits.?With me she received interlaminar C6-C7 epidural steroid injection in her neck.? Technically it was very?difficult?procedure.? The patient has very short neck and hardware in her tear portion of the neck was obstructing the view of the needle advancing to were the epidural space.? No pain relieve after the injection.? She was offered [employer] spinal cord stimulator.? She was given brochure about spinal cord stimulation from [employer] she reports that gabapentin to 4 pills 800 mg a day and amitriptyline to 50 mg a day provide significant pain relief for her without any noticeable side effects. [facility] Medical History Chronic lung disease COPD (chronic obstructive pulmonary disease) Type 2 diabetes mellitus without complication, with no history of insulin use Mixed dyslipidemia Essential hypertension GERD (gastroesophageal reflux disease) Gastroparesis Diastolic CHF with preserved left ventricular function, NYHA class 2 Chronic hypercapnic respiratory failure Type 2 diabetes mellitus with other diabetic kidney complication Type 2 diabetes mellitus without complication, with no history of insulin use Smoker unmotivated to quit Postlaminectomy syndrome of cervical region Seasonal allergic rhinitis Degenerative disc disease, cervical Postmenopause Dyslipidemia Surgical History H/O cervical discectomy History of esophagogastroduodenoscopy (EGD) Hx of colonoscopy Family History Mother Diabetes Sister Diabetes Mental health disorder Brother Diabetes Father HTN (hypertension) Social History Household Members: Significant Other Housing: Other Housing Other:: Mobile Home Do you presently have 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) Alcohol intake: former Comment: Commode/ Hi Flow O2 Patient Tobacco Use Status: Current everyday Tobacco user Tobacco use type: Cigarette Cigarette Packs Per Day: 1 Cigarettes Per Day: 20.0 Years Smoked: 20 e-Cigarette/Vaping Use: Never Used Second Hand Smoke Exposure: Yes Advance Directives Date on File: 09/20/21 service: No Current occupational status: unemployed Cognitive needs: No Hearing needs: No Vision needs: Yes Review of Systems Const All systems reviewed & are unremarkable except as noted in HPI and below ENT Reports Normal hearing present Neuro Reports Normal hearing present, Denies Abnormal speech present and Denies Sensory deficit (Neuro) Physical Exam Vital Signs: Last Vital Signs Pulse 103 H 01/27/24 13:39 Resp 14 01/27/24 13:39 BP 142/68 H 01/27/24 13:39 Pulse Ox 88 L 01/27/24 13:39 Oxygen Delivery Method Room Air 01/27/24 13:39 BMI result Body Mass Index 28.0 Const General: no acute distress Nutritional Appearance: obese morbidly obese Orientation/consciousness: patient oriented x3 Eyes General: appearance normal, both eyes and all related structures Pupils: Equal, round and reactive pupils present EOM: EOMs intact bilaterally Neck Neck: Yes full ROM Chest Chest palpation & inspection: normal inspection of the chest Resp Effort & Inspection: normal respiratory effort, able to speak in complete sentences, normal respiratory pattern, no audible wheezes and no cough Cardio Jugular venous distension: no JVD GI Inspection: Yes normal to inspection Back/Spine/Pelvis Other: Cervical Spine/Neck: ? C SPINE EXAM:?Myofascial trigger points are present, well-healed surgical scar ACDF.? RANGE OF MOTION OF NECK:?normal in all directions, full cervical ROM, mild pain with side bending b/l.? REFLEXES:?Brachioradialis and biceps brachii seem to be symmetrical, however left triceps reflex seem to be diminished on the left..? SENSATIONS:? diminished sensation to light touch in left hand.? 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 VERTEBRAL SPINE TENDERNESS:?absent.? PARASPINAL MUSCLE SPASM:?absent bilaterally.? TRAPEZIUS TENDERNESS:?present bilaterally Neuro General: patient oriented x3 and gait normal Cranial nerves: Yes CN's II-XII intact bilaterally, Yes Equal, round and reactive pupils present, Yes Normal hearing present and Yes Ability to bilaterally elevate shoulders present Speech: No Abnormal speech present Gait exam (Neuro): Normal gait present Motor exam (neuro): 5/5 motor strength present throughout Sensory Exam: No Sensory deficit (Neuro) Extrem General: No pedal edema Assessment & Plan Assessment & Plan (1) Type 2 diabetes mellitus without complication, with no history of insulin use: Code(s): E11.9 - Type 2 diabetes mellitus without complications Category: Medical (2) COPD (chronic obstructive pulmonary disease): Comment: Sees [facility] Pulmonary Code(s): J44.9 - Chronic obstructive pulmonary disease, unspecified Category: Medical Qualifiers: COPD type: COPD with acute exacerbation Qualified Code(s): J44.1 - Chronic obstructive pulmonary disease with (acute) exacerbation Plan I will stop amitriptyline because it could cause cholestasis and therefore alleviated alkaline phosphatase. I will continue gabapentin. I will see the patient in 1 month. Medications: New baclofen 10 mg PO TID 30 days 90 tabs 6RF Discontinued amitriptyline Discontinued Reason: Doctor's Order 50 mg (2 x 25 mg) PO BEDTIME 30 days 60 tabs 6RF Coding Level of Care Code Est Pt Level 3 (17743) Diagnoses Type 2 diabetes mellitus without complication, with no history of insulin use E11.9 Chronic obstructive pulmonary disease with acute exacerbation J44.1 COPD type: COPD with acute exacerbation
[2024-01-27 13:39] VITALS: BP 142/68; PULSE 103; RESP 14; O2SAT 88; BMI 28.0
== END 2024-01-27 13:52 | disposition home or self-care (01) ==
PROVIDERS: PCP Internal Medicine; Visit Provider Anesthesiology
DX: M54.2 Cervicalgia (principal); E11.9 Type 2 diabetes mellitus without complications; J44.1 Chronic obstructive pulmonary disease with (acute) exacerbation
CPT/HCPCS: 99213

== ENCOUNTER → 2024-01-27 13:28 | Outpatient (BNVA) | payer OTHER, SELFPAY | PROVIDERS: PCP Internal Medicine; Visit Provider Anesthesiology | DX: J44.1 Chronic obstructive pulmonary disease with (acute) exacerbation (principal); E11.9 Type 2 diabetes mellitus without complications; J44.9 Chronic obstructive pulmonary disease, unspecified | CPT/HCPCS: 99212 ==

== ENCOUNTER 2024-02-24 13:54 | Outpatient (AMB) | payer OTHER, SELFPAY ==
--- NOTE | 2024-02-24 13:59 | A.OFFVIS_ITS ---
Vital Signs 02/24/24 14:05 Height 4 ft 8 in Weight 122 lb 4 oz BMI 27.4 BP 160/70 H Blood Pressure Location Lt brachial Position Sitting Respiration 14 Pulse 98 Pulse Source Pulse Oximeter Pulse Oximetry (%) 84 L Oxygen Delivery Method Room Air Intake Visit Reasons: 1 Month Follow Up Intake Note: Patient comes in for 1 month follow up. Allergies amoxicillin [AMOXICILLIN] Allergy (Intermediate, Verified 02/24/24 14:05) RASH HPI Comments Details: Maria Elena presents in my office with complains on cervicalgia. She was under medical management with me unsuccessful epidural steroid injection cervical C6-C7-see below. She was placed on gabapentin and amitriptyline. Gabapentin gives her no side effects however after we send her for the labs elevated alk-phos was discovered. Presumption was made that it is because of the amitriptyline. I will stop this medication. I prescribed her baclofen 10 mg t.i.d. I also offered her spinal cord stimulator last time. She reports that baclofen causes hallucinations to her. However when I started to ask her what kind of hallucination she feels she was not able to answer. Unfortunately I am very perplexed about the sensor. I explained to her auditory, visual, and tactile hallucinations. Unfortunately patient does not have anything like that. We will continue baclofen at the current dose. Same time I would like to consider this patient to be a candidate for [facility] SCS. Last time I gave her brochure unfortunately patient did not read the brochure. I gave her today another brochure. If she is interested she can give me a telephone call to schedule appointment and we will discuss SCS [facility]. She continues to endorse pain in the neck with radiation on to the left arm. She has a history of ceased 5 C6 ACDF by [place] 2012. HER PAIN HAD STARTED ABOUT 2 YEARS PRIOR TO SURGERY.? She reported yard work was the cause of her pain.? She had conservative treatment including physical therapy, she received some injections without benefits, she subsequently had surgery at [facility].? She was treated by chiropractor without significant benefits.? She was taking NSAIDs without benefits.?With me she received interlaminar C6-C7 epidural steroid injection in her neck.? Technically it was very?difficult ?procedure.? The patient has very short neck and hardware in her tear portion of the neck was obstructing the view of the needle advancing to were the epidural space.? No pain relieve after the injection.? She was offered [employer] spinal cord stimulator.? She was given brochure about spinal cord stimulation from [employer] she reports that gabapentin to 4 pills 800 mg a day and amitriptyline to 50 mg a day provide significant pain relief for her without any noticeable side effects. [facility] Medical History Chronic lung disease COPD (chronic obstructive pulmonary disease) Type 2 diabetes mellitus without complication, with no history of insulin use Mixed dyslipidemia Essential hypertension GERD (gastroesophageal reflux disease) Gastroparesis Diastolic CHF with preserved left ventricular function, NYHA class 2 Chronic hypercapnic respiratory failure Type 2 diabetes mellitus with other diabetic kidney complication Type 2 diabetes mellitus without complication, with no history of insulin use Smoker unmotivated to quit Postlaminectomy syndrome of cervical region Seasonal allergic rhinitis Degenerative disc disease, cervical Postmenopause Dyslipidemia Surgical History H/O cervical discectomy History of esophagogastroduodenoscopy (EGD) Hx of colonoscopy Family History Mother Diabetes Sister Diabetes Mental health disorder Brother Diabetes Father HTN (hypertension) Social History Household Members: Significant Other Housing: Other Housing Other:: Mobile Home 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) Alcohol intake: former Comment: Commode/ Hi Flow O2 Patient Tobacco Use Status: Current everyday Tobacco user Tobacco use type: Cigarette Cigarette Packs Per Day: 1 Cigarettes Per Day: 20.0 Years Smoked: 20 e-Cigarette/Vaping Use: Never Used Second Hand Smoke Exposure: Yes Advance Directives Date on File: 09/20/21 service: No Current occupational status: unemployed Cognitive needs: No Hearing needs: No Vision needs: Yes Review of Systems Const All systems reviewed & are unremarkable except as noted in HPI and below ENT Reports Normal hearing present Neuro Reports Normal hearing present, Denies Abnormal speech present and Denies Sensory deficit (Neuro) Physical Exam Vital Signs: Last Vital Signs Pulse 98 02/24/24 14:05 Resp 14 02/24/24 14:05 BP 160/70 H 02/24/24 14:05 Pulse Ox 84 L 02/24/24 14:05 Oxygen Delivery Method Room Air 02/24/24 14:05 BMI result Body Mass Index 27.4 Const General: no acute distress Nutritional Appearance: obese morbidly obese Orientation/consciousness: patient oriented x3 Eyes General: appearance normal, both eyes and all related structures Pupils: Equal, round and reactive pupils present EOM: EOMs intact bilaterally Neck Neck: Yes full ROM Chest Chest palpation & inspection: normal inspection of the chest Resp Effort & Inspection: normal respiratory effort, able to speak in complete sentences, normal respiratory pattern, no audible wheezes and no cough Cardio Jugular venous distension: no JVD GI Inspection: Yes normal to inspection Back/Spine/Pelvis Other: N Cervical Spine/Neck: ? C SPINE EXAM:?Myofascial trigger points are present, well-healed surgical scar ACDF.? RANGE OF MOTION OF NECK:?normal in all directions, full cervical ROM, mild pain with side bending b/l.? REFLEXES:?Brachioradialis and biceps brachii seem to be symmetrical, however left triceps reflex seem to be diminished on the left..? SENSATIONS:? diminished sensation to light touch in left hand.? 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 VERTEBRAL SPINE TENDERNESS:?absent.? PARASPINAL MUSCLE SPASM:?absent bilaterally.? TRAPEZIUS TENDERNESS:?present bilaterally Neuro General: patient oriented x3 and gait normal Cranial nerves: Yes CN's II-XII intact bilaterally, Yes Equal, round and reactive pupils present, Yes Normal hearing present and Yes Ability to bilaterally elevate shoulders present Speech: No Abnormal speech present Gait exam (Neuro): Normal gait present Motor exam (neuro): 5/5 motor strength present throughout Sensory Exam: No Sensory deficit (Neuro) Extrem General: No pedal edema Results Reviewed Results Reviewed: Name: Maria Elena Kingston Age/Sex: 63/[facility] 1960 [id number]#: [id number] Attend Dr: Magalie Nicolas MD Re12/20/23 Status: DEP REF Location: [facility] Disch: SPEC : [id number] SEUN: 12/20/23 STATUS: COMP REQ : [id number] RECD: 12/20/23-[address]: Magalie Nicolas MD COMP: 12/20/23 ENTERED: 12/20/[address]: ORDERED: CBC Auto Diff Test Result Flag Reference WBC 9.1 4.8-10.8 X10*3/uL RBC 4.96 4.20-5.50 X10*6/uL HGB 12.9 12.0-16.0 g/dl HCT 42.0 37.0-47.0 % MCV 84.7 80.0-98.0 fL MCH 26.0 L 27.0-33.0 pg MCHC 30.7 L 31.0-35.0 g/dl RDW 16.1 H 11.0-16.0 % PLT 280 160-400 X10*3/uL MPV 10.1 9.4-12.3 fL Neut Pct Auto 63.0 45-73 % ImGran Pct Auto 0.6 H 0.0-0.4 % Lymp Pct Auto 25.2 20-40 % Kern Pct Auto 6.0 2-11 % Eos Pct Auto 3.8 0-4 % Baso Pct Auto 1.4 0-2 % NRBC Pct Auto 0.0 0.0-0.2 /100WBC ANC Neut Abs # 5.7 2.0-8.3 x10*3/uL ImGran Abs Auto 0.05 H 0.00-0.03 X10*3/uL Lymph Abs Auto 2.3 1.2-4.9 X10*3/uL Kern Abs Auto 0.5 0.1-1.2 X10*3/uL Eos Abs Auto 0.3 0.0-0.4 X10*3/uL Baso Abs Auto 0.1 0.0-0.2 X10*3/uL NRBC Abs Auto 0.000 0.0-0.012 X10*3/uL Name: Maria Elena Kingston Age/Sex: 63/F : 1960 Unit#: [id number] Attend Dr: Magalie Nicolas MD Re10/25/23 Status: DEP [facility] Disch: SPEC : [id number] SEUN: 10/25/23 STATUS: COMP REQ : [id number] RECD: 10/25/23-[address]: Magalie Nicolas MD COMP: 10/25/23-5 ENTERED: 10/25/23-[address]: ORDERED: Met Prof Fast, AST, ALT, Lipid Panel, Vitamin D 25-OH Test Result Flag Reference Sodium 144 135-145 mmol/L Potassium 3.8 3.3-5.1 mmol/L CL 101 96-108 mmol/L CO2 32 H 22-29 mmol/L Gap 15 12-20 BUN 13 9-16 mg/dL Creat 0.52 0.5-1.4 mg/dL EGFR > 60 NOTE: For -[place] individuals, multiply the result by 1.210. Chronic Kidney Disease: Estimated GFR < 60 mL/min/1.73m2 Severe Kidney Disease: Estimated GFR < 15 mL/min/1.73m2 FBS 142 H 60-99 mg/dL A fasting glucose of 126 mg/dl or greater on more than one occasion is considered diagnostic of diabetes. CA 10.4 H 8.4-10.2 mg/dL AST (GOT) 11 5-31 U/L ALT (GPT) 7 0-31 U/L Triglyceride 181 H <150 mg/dL Desirable Triglyceride: less than 150 mg/dL Borderline High Triglyceride 150-199 mg/dL High Triglyceride: 200-499 mg/dL Very High Triglyceride: greater than or equal to 5OO mg/dL Cholesterol 162 <200 mg/dL Desirable Cholesterol: less than 200 mg/dL Borderline High Cholesterol: 200-239 mg/dL High Cholesterol: greater than 239 mg/dL LDL Calculated 76 <100 mg/dL Desirable LDL: less than 100 mg/dL Near Optimal/Above Optimal LDL: 110-129 mg/dL Borderline High LDL: 130-159 mg/dL High LDL: 160-189 mg/dL Very High LDL: greater than or equal to 190 mg/dL HDL 50 >40 mg/dL Desirable HDL: greater than 40 mg/dL Note: This HDL assay may give artificially low results in patients with liver disease. Vit D 25-OH Tot 72.1 >30 ng/mL Health Based Reference Values* < 20 ng/mL Deficient 20-30 ng/mL Insufficient > 30 ng/mL Sufficient Laboratory Tests 12/20/23 09:23 Ionized Calcium 5.5 Laboratory Tests 10/25/23 09:09 Estimat Average Glucose 111 Hemoglobin A1c % 5.5 Assessment & Plan Assessment & Plan (1) Type 2 diabetes mellitus without complication, with no history of insulin use: Code(s): E11.9 - Type 2 diabetes mellitus without complications Category: Medical (2) COPD (chronic obstructive pulmonary disease): Comment: Sees [facility] Pulmonary Code(s): J44.9 - Chronic obstructive pulmonary disease, unspecified Category: Medical Qualifiers: COPD type: COPD with acute exacerbation Qualified Code(s): J44.1 - Chronic obstructive pulmonary disease with (acute) exacerbation Plan Baclofen discussion is as above. I will continue baclofen 10 mg. The doses TID. Brochure of [facility] SCS was given to the of the patient. The patient is a smoker and smokes about a pack a day. Even for her being smoker the spinal cord stimulator could be working well although not as long as for someone who is nonsmoking. In Her situation any good pain relief is a good idea. I think she should carefully consider spinal cord stimulator. We will send her for the psych evaluation once she decides to go for the device. Coding Level of Care Code Est Pt Level 3 (88034) Diagnoses Type 2 diabetes mellitus without complication, with no history of insulin use E11.9 Chronic obstructive pulmonary disease with acute exacerbation J44.1 COPD type: COPD with acute exacerbation
[2024-02-24 14:05] VITALS: BP 160/70; PULSE 98; RESP 14; O2SAT 84; BMI 27.4
== END 2024-02-24 14:47 | disposition home or self-care (01) ==
PROVIDERS: PCP Internal Medicine; Visit Provider Anesthesiology
DX: E11.9 Type 2 diabetes mellitus without complications (principal); J44.1 Chronic obstructive pulmonary disease with (acute) exacerbation
CPT/HCPCS: 99213

== ENCOUNTER → 2024-02-24 13:54 | Outpatient (BNVA) | payer OTHER, SELFPAY | PROVIDERS: PCP Internal Medicine; Visit Provider Anesthesiology | DX: E11.9 Type 2 diabetes mellitus without complications (principal); J44.1 Chronic obstructive pulmonary disease with (acute) exacerbation | CPT/HCPCS: 99212 ==

== ENCOUNTER 2024-02-28 15:13 | Inpatient (IN) | payer OTHER, SELFPAY ==
[2024-02-28] VITALS (7 sets, daily range): BP systolic 139–140; BP diastolic 51–67; PULSE 89–96; RESP 16–26; TEMP 36.2–36.6; O2SAT 90–97; BMI 26.3; BMI 25.3
--- NOTE | ~2024-02-28 | XR_ITS ---
EXAMINATION: XR CHEST CLINICAL INFORMATION: Shortness of breath COMPARISON: 08/12/2023 TECHNIQUE: 2 views of the chest were obtained. FINDINGS: The heart and pulmonary vessels appear normal. At the time of the prior study, there was some minimally increased bibasilar pulmonary markings which has resolved. There is some residual bibasilar atelectasis is present. Some mild bronchial thickening is seen. There is no evidence of CHF. No consolidations or effusions. Interbody fusion devices noted in the lower cervical spine. XR/XR chest 2V IMPRESSION: Mild bronchial thickening and bibasilar atelectasis. No acute intrathoracic disease.
--- NOTE | 2024-02-28 15:25 | ED.GENADULT ---
HPI - General Adult General Chief complaint: Dyspnea Stated complaint: diff breathing Time Seen by Provider: 02/28/24 16:15 Source: patient Mode of arrival: ambulatory Limitations: no limitations History of Present Illness ED Provider: Dr. Coleman HPI narrative: 63-year-old female 2 L of oxygen baseline for COPD GERD type 2 diabetes hypertension constipation this disease diabetic gastroparesis hyperlipidemia presents emergency department with sitting shortness of breath the past few days. Patient seen in triage sent immediately back for evaluation and treatment. Related Data Home Medications ?Medication ?Instructions ?Recorded ?Confirmed aspirin 81 mg tablet,delayed 81 mg PO BEDTIME 01/10/21 12/30/23 release (Adult Low Dose Aspirin) umeclidinium 62.5 mcg/actuation 1 inh inhalation DAILY 03/31/21 12/30/23 blister powder for inhalation albuterol sulfate 2.5 mg/3 mL 2.5 mg inhalation Q6H PRN wheezing 08/02/23 12/30/23 (0.083 %) solution for nebulization lidocaine 4 % topical patch 1 patch transdermal DAILY PRN Pain 08/02/23 12/30/23 (Lidocaine Pain Relief) fluticasone furoate 200 1 inh inhalation DAILY 08/25/23 12/30/23 mcg/actuation blister powder for inhalation (Arnuity Ellipta) peg 3350-electrolytes 236 240 ml PO Q10M 12/30/23 12/30/23 gram-22.74 gram-6.74 gram-5.86 gram solution (Golytely) Previous Rx's ?Medication ?Instructions ?Recorded blood-glucose meter (FreeStyle #1 ea 10/03/21 Lite Meter kit) lancets 28 gauge (FreeStyle #100 ea 01/06/22 Lancets) FreeStyle Lite Strips (blood sugar #100 ea 03/10/22 diagnostic) flash glucose sensor (FreeStyle #6 ea 02/19/23 Cristian 2 Sensor kit) flash glucose scanning reader #1 ea 03/26/23 (FreeStyle Cristian 2 [place]) albuterol sulfate 90 mcg/actuation 2 puff inhalation Q4-6H PRN 05/22/23 aerosol inhaler shortness of breath or wheezing #6.7 grams omeprazole 20 mg capsule,delayed 20 mg PO DAILY #90 caps 08/20/23 release psyllium husk 0.52 gram capsule 1.04 g (2 x 0.52 gram) PO BID 90 08/20/23 (Fiber Laxative (psyllium husk)) days #360 caps prochlorperazine maleate 10 mg 10 mg PO BID PRN nausea and 09/13/23 tablet (Compazine) vomiting #10 tabs linaclotide 145 mcg capsule 145 mcg PO QAM #30 caps 09/16/23 (Linzess) metoclopramide HCl 10 mg tablet 10 mg PO Q4-6H gastroparesis #90 09/16/23 (Reglan) tabs losartan 50 mg tablet 50 mg PO DAILY #90 tabs 10/10/23 cholecalciferol (vitamin D3) 50 50 mcg PO DAILY #90 caps 11/22/23 mcg (2,000 unit) capsule sitagliptin phosphate 100 mg 100 mg PO DAILY #90 tabs 11/22/23 tablet (Januvia) metformin 1,000 mg tablet 1,000 mg PO BID #180 tabs 12/01/23 rosuvastatin 5 mg tablet 5 mg PO DAILY #90 tabs 12/01/23 amlodipine 5 mg tablet 5 mg PO DAILY #90 tabs 12/19/23 simethicone 180 mg capsule 180 mg PO QID #120 caps 01/13/24 gabapentin 800 mg tablet 800 mg PO TID 30 days #90 tabs 01/26/24 baclofen 10 mg tablet 10 mg PO TID 30 days #90 tabs 01/27/24 naproxen 500 mg tablet 500 mg PO BID PRN for pain #30 tabs 02/23/24 Allergies Allergy/AdvReac Type Severity Reaction Status Date / Time amoxicillin [AMOXICILLIN] Allergy Intermediate RASH Verified 02/28/24 15:29 Review of Systems Review of Systems: Review of systems: General: Patient denies any fever chills recent illness or falls Musculoskeletal: Denies back pain or body aches or other injuries HEENT: denies headache, runny nose, ear pain Respiratory: shortness of breath, cough Cardiovascular: no chest pain or palpitations : denies dysuria, frequency Abdomen: no nausea vomiting denies abdominal pain Extremities: no swelling, no pain Skin: no diaphoresis Yes all other systems are reviewed and are negative PMFSH Past Medical History Medical History Chronic lung disease COPD (chronic obstructive pulmonary disease) Type 2 diabetes mellitus without complication, with no history of insulin use Mixed dyslipidemia Essential hypertension GERD (gastroesophageal reflux disease) Gastroparesis Diastolic CHF with preserved left ventricular function, NYHA class 2 Chronic hypercapnic respiratory failure Type 2 diabetes mellitus with other diabetic kidney complication Type 2 diabetes mellitus without complication, with no history of insulin use Smoker unmotivated to quit Postlaminectomy syndrome of cervical region Seasonal allergic rhinitis Degenerative disc disease, cervical Postmenopause Dyslipidemia Surgical History H/O cervical discectomy History of esophagogastroduodenoscopy (EGD) Hx of colonoscopy Family History Family History Mother Diabetes Sister Diabetes Mental health disorder Brother Diabetes Father HTN (hypertension) Social History Social History Household Members: Significant Other Housing: Other Housing Other:: Mobile Home 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) Alcohol intake: former Comment: Commode/ Hi Flow O2 Patient Tobacco Use Status: Current everyday Tobacco user Tobacco use type: Cigarette Cigarette Packs Per Day: 1 Cigarettes Per Day: 20.0 Years Smoked: 20 Smoked in Last 30 Days: Yes e-Cigarette/Vaping Use: Never Used Second Hand Smoke Exposure: Yes Use of substances other than those prescribed or required for medical reasons: No Advance Directives: Yes Advance Directives on File: Yes Advance Directives Date on File: 09/20/21 Do you have a plan to hurt others: No Plan Patient : No service: No Current occupational status: unemployed Cognitive needs: No Hearing needs: No Vision needs: Yes Physical Exam ED Vital Signs: Vital Signs - 24 hr 02/28/24 15:25 02/28/24 16:49 02/28/24 17:13 Temperature 97.2 F Pulse Rate 96 95 96 Respiratory Rate 20 26 H 18 Blood Pressure 140/55 H 139/67 Pulse Oximetry 92 92 Oxygen Delivery Method Room Air Nasal Cannula Oxygen Flow Rate 2 02/28/24 17:48 Temperature Pulse Rate 93 Respiratory Rate 24 H Blood Pressure Pulse Oximetry Oxygen Delivery Method Oxygen Flow Rate BMI result Body Mass Index 26.3 General: Well-appearing well-nourished in no signs of distress HEENT: Normocephalic atraumatic Neck: No signs of JVD, no masses no tenderness or lymphadenopathy Cardiovascular: Regular rate and rhythm Respiratory: Wheezing bilaterally Abdomen: Soft nontender no masses Extremities: Normal pedal pulses no signs of edema Skin: Dry warm no rashes Back: No tenderness full ROM Course Course Course Narrative: RME performed by Silvina Dave PA-C. Patient is a 63 year old assigned female at presenting to the emergency department with shortness of breath. Patient states she is on 2 liters of oxygen at home at baseline and has been feeling very unwell / more short of breath over the last few days. Detailed physical exam and review of systems are deferred to the historic interpreter. EKG, labs, imaging, and swabs ordered. Patient placed back in the waiting room pending room availability and results. Reevaluation(s) Reevaluation #1: [id number] if up patient reassessed still very tight getting a 2nd 7.5 mL of albuterol. Patient is not safe to go home oxygen saturation currently eating 9% in the room on 2 L. patient is okay with plan to be admitted I did discuss the case hospitalist who agrees with the admission Medications Administered Discontinued Medications Generic Name Dose Route Start Last Admin Trade Name Freq PRN Reason Stop Dose Admin Albuterol Sulfate 5 mg/ 7.5 mg 02/28/24 17:44 02/28/24 17:48 Albuterol Sulfate 2.5 mg INHALE 02/28/24 17:45 7.5 mg ONCE ONE Administration Albuterol Sulfate 5 mg/ 0 mg 02/28/24 16:41 02/28/24 16:48 Albuterol/Ipratropium 3 ml INHALE 02/28/24 16:42 5 each ONCE ONE Administration Magnesium Sulfate 2 gm in 50 mls @ 150 mls/hr 02/28/24 16:25 02/28/24 17:48 Magnesium Sulfate/H2o IV 02/28/24 16:44 Infused ONCE ONE Infusion Medical Decision Making Medical Decision Making [facility] Narrative: I will start the patient Solu-Medrol fluids I will replete the magnesium which has resulted give patient for an x-ray and breathing treatments and reassess Differential Diagnosis Differential Diagnoses: The differential diagnosis associated with the presentation includes Pneumonia COPD exacerbation electrolyte abnormality anemia Admission/Observation Consideration of admission/observation: Escalation of care including admission/observation considered Consult Healthcare Provider Management of the patient was discussed with: Hospitalist Lab Data MDM Lab Attestation statement: I reviewed the patient's lab results. 02/28/24 15:44 02/28/24 15:44 Labs: Lab Results 02/28/24 02/28/24 02/28/24 Range/Units 15:44 15:46 17:18 WBC 17.4 H (4.8-10.8) X10*3/uL RBC 4.78 (4.20-5.50) X10*6/uL Hgb 12.6 (12.0-16.0) g/dl Hct 41.2 (37.0-47.0) % MCV 86.2 (80.0-98.0) fL MCH 26.4 L (27.0-33.0) pg MCHC 30.6 L (31.0-35.0) g/dl RDW 15.7 (11.0-16.0) % Plt Count 359 D (160-400) X10*3/uL MPV 9.9 (9.4-12.3) fL Immature Gran % (Auto) 0.4 (0.0-0.4) % Neut % (Auto) 75.1 H (45-73) % Lymph % (Auto) 14.6 L (20-40) % [place] % (Auto) 6.7 (2-11) % Eos % (Auto) 2.6 (0-4) % Baso % (Auto) 0.6 (0-2) % Lymph # (Auto) 2.6 (1.2-4.9) X10*3/uL [place] # (Auto) 1.2 (0.1-1.2) X10*3/uL Eos # (Auto) 0.5 H (0.0-0.4) X10*3/uL Baso # (Auto) 0.1 (0.0-0.2) X10*3/uL Abs Immat Gran (auto) 0.07 H (0.00-0.03) X10*3/uL Absolute Neuts (auto) 13.1 H (2.0-8.3) x10*3/uL Absolute Nucleated RBC 0.000 (0.0-0.012) X10*3/uL Nucleated RBC % (auto) 0.0 (0.0-0.2) /100WBC PT 11.2 (11.1-13.3) SEC INR 0.9 (0.9-1.1) APTT 31.3 (26.0-36.8) SEC VBG pH 7.38 (7.32-7.43) VBG pCO2 52 mmHg VBG pO2 73 mmHg VBG HCO3 31 H (22-26) mmol/L VBG O2 Saturation 92.0 % VBG Base Excess 5.3 mmol/L Sodium 142 (135-145) mmol/L Potassium 4.0 (3.3-5.1) mmol/L Chloride 102 (96-108) mmol/L Carbon Dioxide 29 (22-29) mmol/L Anion Gap 15 (12-20) BUN 12 (9-16) mg/dL Creatinine 0.55 (0.5-1.4) mg/dL Estim Creat Clear Calc 75.7 Estimated GFR > 60 Random Glucose 119 H (60-115) mg/dL Calcium 10.4 H (8.4-10.2) mg/dL Magnesium 1.4 L* (1.6-2.6) mg/dL Total Bilirubin 0.2 (0.0-1.0) mg/dL AST 14 (5-31) U/L ALT 12 (0-31) U/L Alkaline Phosphatase 88 (39-117) U/L Troponin I High Sens 6.1 (<3.5-17.0) ng/L Total Protein 7.5 (6.5-8.0) g/dL Albumin 4.6 (3.5-5.0) g/dL Urine Color Yellow Urine Appearance Clear Urine pH 5.5 (5.0-9.0) Ur Specific [place] >= 1.030 H (1.005-1.025) Urine Protein Trace (Neg-Trace) mg/dL Urine Glucose (UA) Negative (Negative) mg/dL Urine Ketones Trace (Negative) mg/dL Urine Blood Negative (Negative) Urine Nitrite Negative (Negative) Ur Leukocyte Esterase Negative (Negative) Influenza Type A (PCR) NEGATIVE (Negative) Influenza Type B (PCR) NEGATIVE (Negative) RSV RNA Qual (PCR) NEGATIVE (Negative) SARS-CoV-2 RNA (RT-PCR) NEGATIVE (Negative) Independent Interpretation I performed an independent interpretation of an: EKG and Plain X-Ray Independent Historian Clinical information obtained from an independent historian. History obtained from or confirmed by: Spouse External Record Review External record reviewed: Inpatient record, Office record and Outpatient record Discharge Plan Discharge Clinical Impression: Acute exacerbation of chronic obstructive pulmonary disease, COPD with hypoxia Patient Disposition: Admitted As Inpatient Prescriptions: No Action (DME) lancets [FreeStyle Lancets] 28 gauge misc See Rx Instructions .Route Qty: 100 5RF Rx Instructions: As directed twice a day AC (DME) FreeStyle Lite Strips Strip See Rx Instructions .Route Qty: 100 0RF Rx Instructions: check fasting blood sugar twice a day before meals (DME) FreeStyle Cristian 2 Sensor Kit See Rx Instructions .Route Qty: 6 3RF Rx Instructions: Test blood sugar 4 times per day (DME) FreeStyle Cristian 2 [place] Misc See Rx Instructions .Route Qty: 1 0RF Rx Instructions: test blood sugar 4 times per day Linzess 145 mcg capsule 145 mcg PO QAM Qty: 30 6RF losartan 50 mg tablet 50 mg PO DAILY Qty: 90 1RF Januvia 100 mg tablet 100 mg PO DAILY Qty: 90 1RF cholecalciferol (vitamin D3) 50 mcg (2,000 unit) capsule 50 mcg PO DAILY Qty: 90 1RF metformin 1,000 mg tablet 1,000 mg PO BID Qty: 180 3RF rosuvastatin 5 mg tablet 5 mg PO DAILY Qty: 90 1RF amlodipine 5 mg tablet 5 mg PO DAILY Qty: 90 0RF simethicone 180 mg capsule 180 mg PO QID Qty: 120 6RF gabapentin 800 mg tablet 800 mg PO TID 30 Days Qty: 90 6RF naproxen 500 mg tablet 500 mg PO BID PRN (Reason: for pain) Qty: 30 0RF lidocaine [Lidocaine Pain Relief] 4 % adhesive patch,medicated 1 patch transdermal DAILY PRN (Reason: Pain) Protocol: Apply to: Apply to: anterior chest wal albuterol sulfate 2.5 mg /3 mL (0.083 %) solution for nebulization 2.5 mg inhalation Q6H PRN (Reason: wheezing) albuterol sulfate 90 mcg/actuation HFA aerosol inhaler 2 puff inhalation Q4-6H PRN (Reason: shortness of breath or wheezing) Qty: 6.7 2RF umeclidinium 62.5 mcg/actuation blister with device 1 inh inhalation DAILY Rx Instructions: Encruse aspirin [Adult Low Dose Aspirin] 81 mg tablet,delayed release (DR/EC) 81 mg PO BEDTIME prochlorperazine maleate [Compazine] 10 mg tablet 10 mg PO BID PRN (Reason: nausea and vomiting) Qty: 10 0RF (DME) blood-glucose meter [FreeStyle Lite Meter] Kit See Rx Instructions .Route Qty: 1 0RF Rx Instructions: As directed twice a day before meals Arnuity Ellipta 200 mcg/actuation blister with device 1 inh inhalation DAILY metoclopramide HCl [Reglan] 10 mg tablet 10 mg PO Q4-6H Qty: 90 0RF baclofen 10 mg tablet 10 mg PO TID 30 Days Qty: 90 6RF omeprazole 20 mg capsule,delayed release(DR/EC) 20 mg PO DAILY Qty: 90 2RF psyllium husk [Fiber Laxative (psyllium husk)] 0.52 gram capsule 1.04 g PO BID 90 Days Qty: 360 3RF peg 3350-electrolytes [Golytely] 236-22.74-6.74 -5.86 gram recon soln 240 ml PO Q10M Rx Instructions: until fecal effluent is clear Print Language: Norwegian
--- NOTE | 2024-02-28 15:27 | ECG_ITS ---
Test Reason : DYSPNEA Blood Pressure : / mmHG Vent. Rate : 096 BPM Atrial Rate : 096 BPM P-R Int : 126 ms QRS Dur : 078 ms QT Int : 348 ms P-R-T Axes : 067 082 076 degrees QTc Int : 439 ms Normal sinus rhythm Nonspecific T wave abnormality Abnormal ECG When compared with ECG of 01-AUG-2023 16:59, No significant change was found Referred By: Silvina Dave Electronically Signed By:YOHAN PATEL MD
[2024-02-28 15:47] LABS: MANUAL DIFF FLAG NO
[2024-02-28 15:51] LABS: Basophils Absolute Auto 0.1 X10*3/uL (0.0-0.2); Basophils Percent Auto 0.6 % (0-2); Eosinophils Absolute Auto 0.5 X10*3/uL (0.0-0.4); Eosinophils Percent Auto 2.6 % (0-4); Hematocrit 41.2 % (37.0-47.0); Hemoglobin 12.6 g/dl (12.0-16.0); Imm Gran Abs Auto 0.07 X10*3/uL (0.00-0.03); Imm Gran Pct Auto 0.4 % (0.0-0.4); Lymphocytes Absolute Auto 2.6 X10*3/uL (1.2-4.9); Lymphocytes Percent Auto 14.6 % (20-40); Mean Corpuscular HGB Conc 30.6 g/dl (31.0-35.0); Mean Corpuscular Hemoglobin 26.4 pg (27.0-33.0); Mean Corpuscular Volume 86.2 fL (80.0-98.0); Mean Platelet Volume 9.9 fL (9.4-12.3); Monocytes Absolute Auto 1.2 X10*3/uL (0.1-1.2); Monocytes Percent Auto 6.7 % (2-11); Neutrophils Absolute Auto 13.1 x10*3/uL (2.0-8.3); Neutrophils Percent Auto 75.1 % (45-73); Platelet Count 359 X10*3/uL (160-400); Red Blood Count 4.78 X10*6/uL (4.20-5.50); Red Cell Distribution Width 15.7 % (11.0-16.0); White Blood Count 17.4 X10*3/uL (4.8-10.8)
[2024-02-28 15:55] LABS: INTERNATIONAL NORM RATIO 0.9 (0.9-1.1); Prothrombin Time 11.2 SEC (11.1-13.3)
[2024-02-28 15:57] LABS: Partial Thromboplastin Time 31.3 SEC (26.0-36.8)
[2024-02-28 16:14] LABS: Troponin-I High Sensitivity 6.1 ng/L (<3.5-17.0)
[2024-02-28 16:21] LABS: Alanine Aminotransferase 12 U/L (0-31); Albumin Level 4.6 g/dL (3.5-5.0); Alkaline Phosphatase 88 U/L (39-117); Anion Gap 15 (12-20); Aspartate Amino Transferase 14 U/L (5-31); Bilirubin Total 0.2 mg/dL (0.0-1.0); Blood Urea Nitrogen 12 mg/dL (9-16); Calcium 10.4 mg/dL (8.4-10.2); Carbon Dioxide 29 mmol/L (22-29); Chloride 102 mmol/L (96-108); Creatinine Clr Calc Pharmacy 75.7; Estimated Glomerular Filt Rate > 60; Glucose Random 119 mg/dL (60-115); Magnesium 1.4 mg/dL (1.6-2.6); Sodium 142 mmol/L (135-145); Total Protein 7.5 g/dL (6.5-8.0)
[2024-02-28 16:34] LABS: Influenza A PCR NEGATIVE (Negative); Influenza B PCR NEGATIVE (Negative); Resp Syncy Virus RNA Qual PCR NEGATIVE (Negative); SARS COV2 PCR INHOUSE NEGATIVE (Negative)
[2024-02-28] MEDS: Albuterol Sulfate 5 MG, Albuterol/Iprat 2.5/0.5MG 3 ML 3 ML INHALE (16:48)
[2024-02-28 17:03] LABS: VBG Base Excess 5.3 mmol/L; VBG HCO3 31 mmol/L (22-26); VBG pCO2 52 mmHg; VBG pH 7.38 (7.32-7.43); VBG pO2 73 mmHg
[2024-02-28 17:09] LABS: Venous Blood Gas Refer to POC result
[2024-02-28] MEDS: Magnesium Sulfate/H2O 2 GM/50 ML PIGGYBACK IV (17:16)
[2024-02-28 17:30] LABS: Appearance Urine Clear; Color Urine Yellow; Glucose Urine UA Negative (Negative); Leukocyte Esterase Urine Negative (Negative); Nitrite Urine Negative (Negative); PH 5.5 (5.0-9.0); Specific Gravity - Urine >= 1.030 (1.005-1.025); Urine Blood Negative (Negative); Urine Ketones Trace mg/dL (Negative); Urine Protein Trace mg/dL (Neg-Trace)
[2024-02-28] MEDS: Albuterol Sulfate 5 MG, Albuterol Sulfate (0.083%) 2.5 MG 7.5 MG INHALE (17:48)
--- NOTE | 2024-02-28 17:54 | P.HPHOSP_ITS ---
History of Present Illness Date of Service: 02/28/24 Attending physician on admission: Todd Shaffer Chief Complaint: SOB, BARON Pt is a 63-year-old female with a PMH significant for?COPD on 2 L NC at home, HTN, HLD, [id number] type 2 diabetes, and GERD who presents to the ED with?SOB, BARON, and difficulty breathing for the past few days. Patient has also complains of new cough during this time that has been productive white to yellowish sputum. Denies fever or chills. No nausea, vomiting, diarrhea, abdominal pain. Denies chest pain/pressure, palpitations. No pleuritic chest pain. States often forgets to use her maintenance inhalers, using them maybe once or twice a week. Continues to smoke 1 pack daily. In the ED pt was afebrile, but with elevated heart rate up to 96, tachypneic up 26, mildly hypertensive up to 140/55, and noted to be hypoxic at 89% on chronic home 2L NC. Labs were significant for chronically elevated leukocytosis of 17.4 (around baseline) and magnesium 1.4, otherwise grossly unremarkable and around baseline. Stable H&H. Renal and hepatic function baseline. Tested negative for COVID, RSV, flu. UA negative for UTI. CXR showed mild bronchial thickening and bibasilar atelectasis but no acute intrathoracic disease. Pt was treated with DuoNebs, Mag sulfate, and Solu-Medrol 125 mg IV. Pt will be admitted to the hospital for treatment and further evaluation of acute on chronic hypoxic respiratory failure in the setting of COPD exacerbation. Review of Systems 2 Review of Systems: SOB, BARON, difficulty breathing Cough productive of white/yellowish sputum No fever or chills Denies chest pain/pressure, palpitations No nausea, vomiting, abdominal pain [facility] Medical History Chronic lung disease COPD (chronic obstructive pulmonary disease) Type 2 diabetes mellitus without complication, with no history of insulin use Mixed dyslipidemia Essential hypertension GERD (gastroesophageal reflux disease) Gastroparesis Diastolic CHF with preserved left ventricular function, NYHA class 2 Chronic hypercapnic respiratory failure Type 2 diabetes mellitus with other diabetic kidney complication Type 2 diabetes mellitus without complication, with no history of insulin use Smoker unmotivated to quit Postlaminectomy syndrome of cervical region Seasonal allergic rhinitis Degenerative disc disease, cervical Postmenopause Dyslipidemia Family History Mother Diabetes Sister Diabetes Mental health disorder Brother Diabetes Father HTN (hypertension) Surgical History H/O cervical discectomy History of esophagogastroduodenoscopy (EGD) Hx of colonoscopy Social History Household Members: Significant Other Housing: Other Housing Other:: Mobile Home 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) Alcohol intake: former Comment: Commode/ Hi Flow O2 Patient Tobacco Use Status: Current everyday Tobacco user Tobacco use type: Cigarette Cigarette Packs Per Day: 1 Cigarettes Per Day: 20.0 Years Smoked: 20 Smoked in Last 30 Days: Yes e-Cigarette/Vaping Use: Never Used Second Hand Smoke Exposure: Yes Use of substances other than those prescribed or required for medical reasons: No Advance Directives: Yes Advance Directives on File: Yes Advance Directives Date on File: 09/20/21 Do you have a plan to hurt others: No Plan Patient : No service: No Current occupational status: unemployed Cognitive needs: No Hearing needs: No Vision needs: Yes Meds Allergies Allergy/AdvReac Type Severity Reaction Status Date / Time amoxicillin [AMOXICILLIN] Allergy Intermediate RASH Verified 02/28/24 15:29 Home Medications ?Medication ?Instructions ?Recorded ?Confirmed ?Last Taken ?Type aspirin 81 mg tablet,delayed 81 mg PO BEDTIME 01/10/21 12/30/23 07/01/23 History release (Adult Low Dose Aspirin) umeclidinium 62.5 mcg/actuation 1 inh inhalation DAILY 03/31/21 12/30/23 07/02/23 History blister powder for inhalation albuterol sulfate 2.5 mg/3 mL 2.5 mg inhalation Q6H PRN wheezing 08/02/23 12/30/23 Unknown History (0.083 %) solution for nebulization lidocaine 4 % topical patch 1 patch transdermal DAILY PRN Pain 08/02/23 12/30/23 Unknown History (Lidocaine Pain Relief) fluticasone furoate 200 1 inh inhalation DAILY 08/25/23 12/30/23 Unknown History mcg/actuation blister powder for inhalation (Arnuity Ellipta) peg 3350-electrolytes 236 240 ml PO Q10M 12/30/23 12/30/23 Unknown History gram-22.74 gram-6.74 gram-5.86 gram solution (Golytely) amitriptyline 25 mg tablet 50 mg PO BEDTIME 02/28/24 Unknown History Physical Exam 2 Vital Signs and Narrative: Vital Signs: Last Vital Signs Temp 97.2 F 02/28/24 15:25 Pulse 93 02/28/24 17:48 Resp 24 H 02/28/24 17:48 BP 139/67 02/28/24 17:13 Pulse Ox 92 02/28/24 17:13 O2 Del Method Nasal Cannula 02/28/24 17:13 O2 Flow Rate 2 02/28/24 17:13 Oxygen Flow Rate 2 02/28/24 15:25 BMI result Body Mass Index 26.3 General: AOx3, no acute distress Resp: Audibly wheezing during interview. Lungs diminished but with diffuse inspiratory and expiratory wheezing bilaterally. CVS: S1, S2, RRR GI: +BS, NT, no distention Skin: Warm, dry Neuro: Cranial nerves II-XII grossly intact bilaterally. Motor grossly intact bilaterally Extremities: No edema Psych: Appropriate affect Results Labs 02/28/24 15:44 02/28/24 15:44 Labs: Laboratory Results - last 24 hr 02/28/24 02/28/24 02/28/24 15:44 15:46 17:18 MCV 86.2 MCH 26.4 L MCHC 30.6 L RDW 15.7 Plt Count 359 D MPV 9.9 Immature Gran % (Auto) 0.4 Neut % (Auto) 75.1 H Lymph % (Auto) 14.6 L [place] % (Auto) 6.7 Eos % (Auto) 2.6 Baso % (Auto) 0.6 Lymph # (Auto) 2.6 [place] # (Auto) 1.2 Eos # (Auto) 0.5 H Baso # (Auto) 0.1 Abs Immat Gran (auto) 0.07 H Absolute Neuts (auto) 13.1 H Absolute Nucleated RBC 0.000 Nucleated RBC % (auto) 0.0 PT 11.2 INR 0.9 APTT 31.3 VBG pH 7.38 VBG pCO2 52 VBG pO2 73 VBG HCO3 31 H VBG O2 Saturation 92.0 VBG Base Excess 5.3 Anion Gap 15 Estim Creat Clear Calc 75.7 Estimated GFR > 60 Random Glucose 119 H Calcium 10.4 H Magnesium 1.4 L* Total Bilirubin 0.2 AST 14 ALT 12 Alkaline Phosphatase 88 Troponin I High Sens 6.1 Total Protein 7.5 Albumin 4.6 Urine Color Yellow Urine Appearance Clear Urine pH 5.5 Ur Specific [place] >= 1.030 H Urine Protein Trace Urine Glucose (UA) Negative Urine Ketones Trace Urine Blood Negative Urine Nitrite Negative Ur Leukocyte Esterase Negative Influenza Type A (PCR) NEGATIVE Influenza Type B (PCR) NEGATIVE RSV RNA Qual (PCR) NEGATIVE SARS-CoV-2 RNA (RT-PCR) NEGATIVE Imaging Radiologist's Impressions: Impressions Chest X-Ray 02/28/24 16:02 IMPRESSION: Mild bronchial thickening and bibasilar atelectasis. No acute intrathoracic disease. Assessment and Plan (1) Acute exacerbation of chronic obstructive pulmonary disease: Status: Acute (2) Acute on chronic hypoxic respiratory failure: Status: Acute Plan Pt is a 63-year-old female with a PMH significant for?COPD on 2 L NC at home, HTN, HLD, [id number] type 2 diabetes, and GERD who presents to the ED with?SOB, BARON, and difficulty breathing for the past few days. Pt will be admitted to the hospital for treatment and further evaluation of acute on chronic hypoxic respiratory failure in the setting of COPD exacerbation. Acute chronic hypoxic respiratory failure in the setting of COPD exacerbation Patient with SOB, BARON, difficulty breathing times 3-4 days Desatting into 80s on her home 2 L O2 while in the ED Pt non-compliant with home maintenance inhalers, still smokes 1 pack daily CXR negative acute cardiopulmonary disease Patient does not meet sepsis criteria: Leukocytosis chronic, tachycardia secondary to albuterol use, no clear indication for underlying pneumonia Will treat with DuoNebs, Solu-Medrol, guaifenesin Azithromycin for pleiotropic effects, started 02/28/2024 Titrate supplemental O2 >90 to home 2L NC Monitor respiratory status Hypomagnesemia Magnesium 1.4 time of presentation Patient received Mag 2 g IV in the ED Trend labs [id number] type 2 diabetes Hold metformin Sliding-scale insulin, diabetic diet HLD Continue statin GERD Continue PPI Full Code Attending:?Dr. Shaffer DVT Prophylaxis: Lovenox Pt will require a hospitalization of at least two nights for treatment and further evaluation of acute on chronic hypoxic respiratory failure in the setting of COPD exacerbation. Given that patient continues to be wheezy and requiring additional oxygen demand despite repeated treatments in the ED, patient will require hospitalization for administration of IV steroids, breathing treatments, and close monitoring of respiratory status. Quality Stroke Does the patient have a stroke diagnosis?: No VTE Prior VTE?: No VTE Risk Level:: Medical - moderate - high VTE Device Contraindication: Treatment Not Indicated VTE Drug Contraindication: N/A - Med Ordered
[2024-02-28] MEDS: Azithromycin 500 MG in 0.9 % Sodium Chloride 250 ML 125 MG IV (19:06)
[2024-02-28] MEDS: methylPREDNISolone Sod Succ 125 MG/2 ML VIAL IVPUSH (19:07)
--- NOTE | 2024-02-28 19:25 | PHA.MEDREC ---
Pharmacy Consult ? Medication Reconciliation Pharmacy has completed the medication reconciliation. Spoke to patient to confirm med list. Patient states she is not taking Albuterol sulfate 2 puffs q 4 to 6 h prn , Lidocaine 1 patch daily prn, and prochlorperazine 10 mg bid prn.
[2024-02-28] MEDS: Albuterol/Iprat 2.5/0.5MG 3 ML AMPUL.NEB INHALE (20:09)
[2024-02-28 20:42] LABS: Glucose, Whole Blood 158 mg/dL (60-115)
[2024-02-28] MEDS: Enoxaparin Sodium 40 MG/0.4 ML SYRINGE SUBCUT (21:04)
[2024-02-28] MEDS: Insulin Lispro 100 UNIT/ML 3 ML VIAL SUBCUT (21:05)
[2024-02-28] MEDS: 0.9 % Sodium Chloride Flush 3 ML SYRINGE IVFLUSH (21:05)
[2024-02-28] MEDS: Simethicone 80 MG TAB.CHEW 180 MG PO (22:15)
[2024-02-28] MEDS: Gabapentin 400 MG CAPSULE 800 MG PO (22:16)
[2024-02-28] MEDS: Metoclopramide HCl 10 MG TABLET PO (22:16)
[2024-02-28] MEDS: Baclofen 10 MG TABLET PO (22:16)
[2024-02-28] MEDS: Aspirin Enteric Coated 81 MG TABLET.DR PO (22:16)
[2024-02-28] MEDS: methylPREDNISolone Sod Succ 125 MG/2 ML VIAL 60 MG IVPUSH (23:52)
[2024-02-29] VITALS (9 sets, daily range): BP systolic 135–171; BP diastolic 63–70; PULSE 86–101; RESP 16–22; TEMP 36.6–37.1; O2SAT 89–93
[2024-02-29] MEDS: Omeprazole 20 MG CAPSULE.DR PO (05:34)
[2024-02-29] MEDS: methylPREDNISolone Sod Succ 125 MG/2 ML VIAL 60 MG IVPUSH ×2 (05:34→12:12)
[2024-02-29 07:07] LABS: Hematocrit 38.3 % (37.0-47.0); Hemoglobin 11.6 g/dl (12.0-16.0); Mean Corpuscular HGB Conc 30.3 g/dl (31.0-35.0); Mean Corpuscular Hemoglobin 26.1 pg (27.0-33.0); Mean Corpuscular Volume 86.1 fL (80.0-98.0); Mean Platelet Volume 10.4 fL (9.4-12.3); Platelet Count 325 X10*3/uL (160-400); Red Blood Count 4.45 X10*6/uL (4.20-5.50); Red Cell Distribution Width 15.6 % (11.0-16.0); White Blood Count 18.7 X10*3/uL (4.8-10.8)
[2024-02-29 07:13] LABS: Anion Gap 17 (12-20); Blood Urea Nitrogen 17 mg/dL (9-16); Calcium 10.3 mg/dL (8.4-10.2); Carbon Dioxide 24 mmol/L (22-29); Chloride 104 mmol/L (96-108); Creatinine Clr Calc Pharmacy 71.7; Estimated Glomerular Filt Rate > 60; Glucose Random 185 mg/dL (60-115); Magnesium 2.3 mg/dL (1.6-2.6); Potassium 4.5 mmol/L (3.3-5.1); Sodium 140 mmol/L (135-145)
[2024-02-29 07:36] LABS: Glucose, Whole Blood 191 mg/dL (60-115)
[2024-02-29] MEDS: Insulin Lispro 100 UNIT/ML 3 ML VIAL SUBCUT ×4 (07:56→20:38)
[2024-02-29] MEDS: Simethicone 80 MG TAB.CHEW 180 MG PO ×4 (07:59→20:38)
[2024-02-29] MEDS: Baclofen 10 MG TABLET PO ×3 (08:01→20:37)
[2024-02-29] MEDS: Losartan Potassium 50 MG TABLET PO (08:01)
[2024-02-29] MEDS: amLODIPine Besylate 5 MG TABLET PO (08:01)
[2024-02-29] MEDS: Cholecalciferol (Vitamin D3) 25 MCG TABLET 50 MCG PO (08:01)
[2024-02-29] MEDS: Atorvastatin Calcium 20 MG TABLET PO (08:01)
[2024-02-29] MEDS: 0.9 % Sodium Chloride Flush 3 ML SYRINGE IVFLUSH ×3 (08:01→20:38)
[2024-02-29] MEDS: Metoclopramide HCl 10 MG TABLET PO ×3 (08:01→16:14)
[2024-02-29] MEDS: SITagliptin Phosphate 100 MG TABLET PO (08:01)
[2024-02-29] MEDS: Gabapentin 400 MG CAPSULE 800 MG PO ×3 (08:01→20:37)
[2024-02-29] MEDS: Albuterol/Iprat 2.5/0.5MG 3 ML AMPUL.NEB INHALE ×4 (08:21→19:47)
--- NOTE | 2024-02-29 09:10 | MHC.CM.PN ---
Patient lives in a mobile home w/ S.O. No AD's. Independent w/ most ADL's. 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 [employer] provides home O2 (2L baseline) and CPAP. Also has a shower chair and grab bars in bathroom. PCP Magalie Nicolas MD HCP on file and verified, [facility] is Kenneth Jama. DP: Goal is home resume services. S.O. will transport. Has used [facility] in the past and would be open to services if recommended. Previous stay at [place], would not wish to return and is not interested in STR. CM will continue to follow.
[2024-02-29 11:46] LABS: Glucose, Whole Blood 288 mg/dL (60-115)
--- NOTE | 2024-02-29 14:38 | HO.PM.IMPN ---
Subjective Subjective Date of Service: 02/29/24 Interval History: Minimal improvement overnight however able to speak in short sentences Review of Systems Denies chest pain Admits to shortness of breath with minimal movement Denies nausea vomiting diarrhea Denies fever chills Physical Exam Vital Signs: Vital Signs: Last Vital Signs Temp 97.9 F 02/29/24 07:28 Pulse 87 02/29/24 12:32 Resp 18 02/29/24 12:32 BP 135/63 02/29/24 07:28 Pulse Ox 92 02/29/24 07:28 O2 Del Method Nasal Cannula 02/29/24 07:28 O2 Flow Rate 2.0 02/29/24 07:28 Oxygen Flow Rate 2 02/28/24 15:25 BMI result Body Mass Index 25.3 Const: Other: Awake alert no acute distress. Able to speak in short sentences Resp: Other: Diminished throughout with coarse rhonchi that clear with cough; diffuse expiratory wheezes Cardio: Other: No S4; positive S1-S2; no S3 murmurs rubs or gallops GI: Other: Soft nontender nondistended normoactive bowel sounds Extrem: Other: No edema bilaterally Objective Data Active Medications Acetaminophen (Acetaminophen 325 Mg Tablet) 650 mg PO Q6H PRN PRN Reason: Pain, Mild (Pain Scale 1-3), fever or headache Albuterol/Ipratropium (Albuterol/Iprat 2.5/0.5mg 3 Ml Ampul.Neb) 3 ml INHALE RQ4H WHILE AWAKE [facility]LY [facility], [facility]1983 Last Admin: 02/29/24 12:31 Dose: 3 ml Documented By: KATELIN Albuterol/Ipratropium (Albuterol/Iprat 2.5/0.5mg 3 Ml Ampul.Neb) 3 ml INHALE RQ4H WHILE AWAKE PRN PRN Reason: Shortness of Breath/Wheezing Amitriptyline HCl (Amitriptyline Hcl 50 Mg Tablet) 50 mg PO BEDTIME [facility], [facility] Last Admin: 02/28/24 22:21 Dose: Not Given Documented By: ASHLEY Non-Admin Reason: Patient Refused Amlodipine Besylate (Amlodipine Besylate 5 Mg Tablet) 5 mg PO DAILY [facility], [facility]; Protocol Last Admin: 02/29/24 08:01 Dose: 5 mg Documented By: JUANITA Aspirin (Aspirin Enteric Coated 81 Mg Tablet.) 81 mg PO BEDTIME [facility], [facility] Last Admin: 02/28/24 22:16 Dose: 81 mg Documented By: ASHLEY Atorvastatin Calcium (Atorvastatin Calcium 20 Mg Tablet) 20 mg PO DAILY [facility], [facility] Last Admin: 02/29/24 08:01 Dose: 20 mg Documented By: JUANITA Baclofen (Baclofen 10 Mg Tablet) 10 mg PO TID [facility], [facility] Last Admin: 02/29/24 08:01 Dose: 10 mg Documented By: JUANITA Calcium Carbonate (Calcium Carbonate 750 Mg Tab.Chew) 750 mg PO Q4H PRN PRN Reason: Heartburn Enoxaparin Sodium (Enoxaparin Sodium 40 Mg/0.4 Ml Syringe) 40 mg SUBCUT Q24H [facility], [facility] Last Admin: 02/28/24 21:04 Dose: 40 mg Documented By: ASHLEY Gabapentin (Gabapentin 400 Mg Capsule) 800 mg PO TID [facility], [facility] Last Admin: 02/29/24 08:01 Dose: 800 mg Documented By: JUANITA Glucose (Glucose Gel 15 Gm Gel..Gram.) 15 gm PO Q15M PRN; Protocol PRN Reason: per Hypoglycemia Standing Ord. Guaifenesin/Dextromethorphan (Guaifenesin Dm 200/20/10 Ml 10 Ml Syrup) 10 ml PO Q6H PRN PRN Reason: Cough Azithromycin 500 mg/ Sodium (Chloride) 250 mls @ 125 mls/hr IV Q24H [facility], [facility] Last Infusion: 02/28/24 22:23 Dose: Infused Documented By: ASHLEY Dextrose (D10) 250 mls @ 750 mls/hr IV Q15M PRN; Protocol PRN Reason: per Hypoglycemia Standing Ord. Insulin Human Lispro (Insulin Lispro 100 Unit/Ml 3 Ml Vial) 0 unit SUBCUT QIDACHS [facility], [facility]–1983; Protocol Last Admin: 02/29/24 12:11 Dose: 6 unit Documented By: JUANITA Losartan Potassium (Losartan Potassium 50 Mg Tablet) 50 mg PO DAILY [facility], [facility]; Protocol Last Admin: 02/29/24 08:01 Dose: 50 mg Documented By: JUANITA Magnesium Hydroxide (Milk Of Magnesia 30 Ml Oral.Susp) 30 ml PO DAILY PRN PRN Reason: Constipation Melatonin (Melatonin 3 Mg Tablet) 6 mg PO BEDTIME PRN PRN Reason: Insomnia Methylprednisolone Sodium Succinate (Methylprednisolone Sod Succ 125 Mg/2 Ml Vial) 60 mg IVPUSH Q6H [facility], [facility] Last Admin: 02/29/24 12:12 Dose: 60 mg Documented By: JUANITA Metoclopramide HCl (Metoclopramide Hcl 10 Mg Tablet) 10 mg PO TIDAC [facility], [facility]1983 Last Admin: 02/29/24 12:12 Dose: 10 mg Documented By: JUANITA Omeprazole (Omeprazole 20 Mg Capsule.Dr) 20 mg PO DAILY@0630 [facility], [facility]1983 Last Admin: 02/29/24 05:34 Dose: 20 mg Documented By: ASHLEY Ondansetron HCl (Ondansetron Hcl 4 Mg/2 Ml Vial) 4 mg IVPUSH Q8H PRN PRN Reason: Nausea and Vomiting Simethicone (Simethicone 80 Mg Tab.Chew) 180 mg PO QID [facility], [facility] Last Admin: 02/29/24 12:12 Dose: 180 mg Documented By: JUANITA Sitagliptin Phosphate (Sitagliptin Phosphate 100 Mg Tablet) 100 mg PO DAILY [facility], [facility] Last Admin: 02/29/24 08:01 Dose: 100 mg Documented By: JUANITA Sodium Chloride (0.9 % Sodium Chloride Flush 3 Ml Syringe) 3 ml IVFLUSH QSHIFT [facility], [facility]1983 Last Admin: 02/29/24 08:01 Dose: 3 ml Documented By: JUANITA Vitamin D (Cholecalciferol (Vitamin D3) 25 Mcg Tablet) 50 mcg PO DAILY [facility] Last Admin: 02/29/24 08:01 Dose: 50 mcg Documented By: JUANITA Labs 02/29/24 05:26 02/29/24 05:26 Labs: Laboratory Results - last 24 hr 02/28/24 02/28/24 02/28/24 15:44 15:46 17:18 MCV 86.2 MCH 26.4 L MCHC 30.6 L RDW 15.7 Plt Count 359 D MPV 9.9 Immature Gran % (Auto) 0.4 Neut % (Auto) 75.1 H Lymph % (Auto) 14.6 L [place] % (Auto) 6.7 Eos % (Auto) 2.6 Baso % (Auto) 0.6 Lymph # (Auto) 2.6 [place] # (Auto) 1.2 Eos # (Auto) 0.5 H Baso # (Auto) 0.1 Abs Immat Gran (auto) 0.07 H Absolute Neuts (auto) 13.1 H Absolute Nucleated RBC 0.000 Nucleated RBC % (auto) 0.0 Hold Purple Top PT 11.2 INR 0.9 APTT 31.3 VBG pH 7.38 VBG pCO2 52 VBG pO2 73 VBG HCO3 31 H VBG O2 Saturation 92.0 VBG Base Excess 5.3 Anion Gap 15 Estim Creat Clear Calc 75.7 Estimated GFR > 60 POC Glucose Random Glucose 119 H Calcium 10.4 H Magnesium 1.4 L* Total Bilirubin 0.2 AST 14 ALT 12 Alkaline Phosphatase 88 Troponin I High Sens 6.1 Total Protein 7.5 Albumin 4.6 Hold Green Top Urine Color Yellow Urine Appearance Clear Urine pH 5.5 Ur Specific [place] >= 1.030 H Urine Protein Trace Urine Glucose (UA) Negative Urine Ketones Trace Urine Blood Negative Urine Nitrite Negative Ur Leukocyte Esterase Negative Influenza Type A (PCR) NEGATIVE Influenza Type B (PCR) NEGATIVE RSV RNA Qual (PCR) NEGATIVE SARS-CoV-2 RNA (RT-PCR) NEGATIVE 02/28/24 02/28/24 02/29/24 19:57 20:37 05:26 MCV 86.1 MCH 26.1 L MCHC 30.3 L RDW 15.6 Plt Count 325 MPV 10.4 Immature Gran % (Auto) Neut % (Auto) Lymph % (Auto) [place] % (Auto) Eos % (Auto) Baso % (Auto) Lymph # (Auto) [place] # (Auto) Eos # (Auto) Baso # (Auto) Abs Immat Gran (auto) Absolute Neuts (auto) Absolute Nucleated RBC 0.000 Nucleated RBC % (auto) 0.0 Hold Purple Top SEE NOTE PT INR APTT VBG pH VBG pCO2 VBG pO2 VBG HCO3 VBG O2 Saturation VBG Base Excess Anion Gap 17 Estim Creat Clear Calc 71.7 Estimated GFR > 60 POC Glucose 158 H Random Glucose 185 H Calcium 10.3 H Magnesium 2.3 Total Bilirubin AST ALT Alkaline Phosphatase Troponin I High Sens Total Protein Albumin Hold Green Top See Note Urine Color Urine Appearance Urine pH Ur Specific [place] Urine Protein Urine Glucose (UA) Urine Ketones Urine Blood Urine Nitrite Ur Leukocyte Esterase Influenza Type A (PCR) Influenza Type B (PCR) RSV RNA Qual (PCR) SARS-CoV-2 RNA (RT-PCR) 02/29/24 02/29/24 07:32 11:33 MCV MCH MCHC RDW Plt Count MPV Immature Gran % (Auto) Neut % (Auto) Lymph % (Auto) [place] % (Auto) Eos % (Auto) Baso % (Auto) Lymph # (Auto) [place] # (Auto) Eos # (Auto) Baso # (Auto) Abs Immat Gran (auto) Absolute Neuts (auto) Absolute Nucleated RBC Nucleated RBC % (auto) Hold Purple Top PT INR APTT VBG pH VBG pCO2 VBG pO2 VBG HCO3 VBG O2 Saturation VBG Base Excess Anion Gap Estim Creat Clear Calc Estimated GFR POC Glucose 191 H 288 H Random Glucose Calcium Magnesium Total Bilirubin AST ALT Alkaline Phosphatase Troponin I High Sens Total Protein Albumin Hold Green Top Urine Color Urine Appearance Urine pH Ur Specific [place] Urine Protein Urine Glucose (UA) Urine Ketones Urine Blood Urine Nitrite Ur Leukocyte Esterase Influenza Type A (PCR) Influenza Type B (PCR) RSV RNA Qual (PCR) SARS-CoV-2 RNA (RT-PCR) Assessment and Plan (1) Acute on chronic hypoxic respiratory failure: Status: Acute (2) Acute exacerbation of chronic obstructive pulmonary disease: Status: Acute (3) Type 2 diabetes mellitus without complication, with no history of insulin use: Status: Acute Plan Pt is a 63-year-old female with a PMH significant for?COPD on 2 L NC at home, HTN, HLD, [id number] type 2 diabetes, and GERD who presents to the ED with?SOB, BARON, and difficulty breathing for the past few days. Pt will be admitted to the hospital for treatment and further evaluation of acute on chronic hypoxic respiratory failure in the setting of COPD exacerbation. 1.Acute chronic hypoxic respiratory failure in the setting of COPD exacerbation -slowly improving and response to therapies -continue pulse dose steroids q.6 hours IV -azithromycin (2) 2.Hypomagnesemia -repleted with good results -follow up clinically and treat as indicated 3.[id number]-zmvkrtafu type 2 diabetes -lispro correctional scale -resume metformin at home dosing -adjust as indicated Lovenox Full code Require ongoing hospitalization for IV steroids and IV antibiotics to treat acute on chronic hypoxic respiratory failure Quality Stroke Does the patient have a stroke diagnosis?: No VTE Prior VTE?: No VTE Risk Level:: Medical - moderate - high VTE Device Contraindication: Treatment Not Indicated VTE Drug Contraindication: N/A - Med Ordered
[2024-02-29 16:24] LABS: Glucose, Whole Blood 234 mg/dL (60-115)
[2024-02-29] MEDS: Azithromycin 500 MG in 0.9 % Sodium Chloride 250 ML 125 MG IV (17:50)
--- NOTE | 2024-02-29 18:13 | PM.EVENT ---
Event Note Date of Service: 02/29/24 Event Note: pt feeling anxious, face flushed, jittery, no worsening respiratory status, alert and oriented. Lungs: no wheezing, no increased wob. sugars have been in 200s, she's on solu-medrol 60 q6 h,which maybe too much for her. Will reduce to 40 bid, avoid additional dose tonight Time Spent With Patient Time: Total time managing care of this patient today ____ minutes.
--- NOTE | 2024-02-29 18:15 | PC.NURSE ---
Patient c/o of being hot, shaky, difficulty breathing, more than before. VS checked, patient afebrile, BP elevated O2 sats 89%. Provider at bedside, patient given cold washcloths to cool down, steroids dose held, will continue to monitor.
[2024-02-29] MEDS: Enoxaparin Sodium 40 MG/0.4 ML SYRINGE SUBCUT (18:37)
[2024-02-29 20:25] LABS: Glucose, Whole Blood 291 mg/dL (60-115)
[2024-02-29] MEDS: Aspirin Enteric Coated 81 MG TABLET.DR PO (20:37)
[2024-02-29] MEDS: Melatonin 3 MG TABLET 6 MG PO (23:54)
[2024-03-01] MEDS: Nicotine 21 MG PATCH.TD24 TRANSDERMA (00:08)
--- NOTE | 2024-03-01 00:11 | PC.NURSE ---
Pt requesting a nicotine patch states smokes [address] Vazquez notified order nicotine patch 21mg x 1 placed on left upper arm.
[2024-03-01 03:06] VITALS: BP 152/65; PULSE 79; RESP 17; TEMP 36.4; O2SAT 94
[2024-03-01] MEDS: Omeprazole 20 MG CAPSULE.DR PO (05:36)
[2024-03-01 06:13] LABS: MANUAL DIFF FLAG NO
[2024-03-01 06:24] LABS: Basophils Percent Auto 0.1 % (0-2); Eosinophils Percent Auto 0.1 % (0-4); Hematocrit 35.9 % (37.0-47.0); Hemoglobin 11.1 g/dl (12.0-16.0); Imm Gran Abs Auto 0.18 X10*3/uL (0.00-0.03); Imm Gran Pct Auto 0.9 % (0.0-0.4); Lymphocytes Absolute Auto 1.9 X10*3/uL (1.2-4.9); Lymphocytes Percent Auto 10.1 % (20-40); Mean Corpuscular HGB Conc 30.9 g/dl (31.0-35.0); Mean Corpuscular Hemoglobin 26.7 pg (27.0-33.0); Mean Corpuscular Volume 86.3 fL (80.0-98.0); Mean Platelet Volume 10.6 fL (9.4-12.3); Monocytes Absolute Auto 1.4 X10*3/uL (0.1-1.2); Monocytes Percent Auto 7.2 % (2-11); Neutrophils Absolute Auto 15.5 x10*3/uL (2.0-8.3); Neutrophils Percent Auto 81.6 % (45-73); Platelet Count 322 X10*3/uL (160-400); Red Blood Count 4.16 X10*6/uL (4.20-5.50); Red Cell Distribution Width 15.8 % (11.0-16.0)
[2024-03-01 06:37] LABS: Alanine Aminotransferase 11 U/L (0-31); Alkaline Phosphatase 76 U/L (39-117); Anion Gap 14 (12-20); Aspartate Amino Transferase 11 U/L (5-31); Bilirubin Total 0.2 mg/dL (0.0-1.0); Blood Urea Nitrogen 14 mg/dL (9-16); Carbon Dioxide 30 mmol/L (22-29); Chloride 102 mmol/L (96-108); Creatinine Clr Calc Pharmacy 81.8; Estimated Glomerular Filt Rate > 60; Glucose Fasting 146 mg/dL (60-99); Magnesium 1.7 mg/dL (1.6-2.6); Potassium 3.8 mmol/L (3.3-5.1); Sodium 142 mmol/L (135-145); Total Protein 6.5 g/dL (6.5-8.0)
[2024-03-01 07:17] VITALS: BP 146/72; PULSE 75; RESP 18; TEMP 36.5; O2SAT 95
[2024-03-01 07:31] LABS: Glucose, Whole Blood 134 mg/dL (60-115)
[2024-03-01] MEDS: 0.9 % Sodium Chloride Flush 3 ML SYRINGE IVFLUSH ×3 (08:42→20:48)
[2024-03-01] MEDS: methylPREDNISolone Sod Succ 125 MG/2 ML VIAL 40 MG IVPUSH ×2 (08:42→20:46)
[2024-03-01 08:45] VITALS: BP 148/68
[2024-03-01] MEDS: Losartan Potassium 50 MG TABLET PO (08:45)
[2024-03-01] MEDS: amLODIPine Besylate 5 MG TABLET PO (08:49)
[2024-03-01] MEDS: Atorvastatin Calcium 20 MG TABLET PO (08:49)
[2024-03-01] MEDS: SITagliptin Phosphate 100 MG TABLET PO (08:49)
[2024-03-01] MEDS: Baclofen 10 MG TABLET PO ×3 (08:49→20:48)
[2024-03-01] MEDS: Gabapentin 400 MG CAPSULE 800 MG PO ×3 (08:50→20:47)
[2024-03-01] MEDS: Simethicone 80 MG TAB.CHEW 180 MG PO ×3 (08:50→20:48)
[2024-03-01] MEDS: Metoclopramide HCl 10 MG TABLET PO ×3 (08:50→16:45)
[2024-03-01] MEDS: Cholecalciferol (Vitamin D3) 25 MCG TABLET 50 MCG PO (08:50)
--- NOTE | 2024-03-01 09:03 | PC.NURSE ---
Rash and redness npted under right breast ,awaiting nystatin order,Dr. Shaffer aware '
[2024-03-01] MEDS: Milk of Magnesia 30 ML ORAL.SUSP PO (09:09)
[2024-03-01 11:24] LABS: Glucose, Whole Blood 212 mg/dL (60-115)
[2024-03-01] MEDS: Insulin Lispro 100 UNIT/ML 3 ML VIAL SUBCUT ×3 (11:56→21:00)
--- NOTE | 2024-03-01 12:19 | HO.PM.IMPN ---
Subjective Subjective Date of Service: 03/01/24 Interval History: Likely adverse reaction to steroids overnight. Dose decreased. Feels better this a.m.. Breathing somewhat improved Review of Systems Denies chest pain Admits to shortness of breath with minimal movement Denies nausea vomiting diarrhea Denies fever chills Physical Exam Vital Signs: Vital Signs: Last Vital Signs Temp 97.7 F 03/01/24 07:17 Pulse 75 03/01/24 07:17 Resp 18 03/01/24 07:17 BP 148/68 H 03/01/24 08:45 Pulse Ox 95 03/01/24 07:17 O2 Del Method Nasal Cannula 03/01/24 07:17 O2 Flow Rate 2 03/01/24 07:17 Oxygen Flow Rate 2 02/28/24 15:25 BMI result Body Mass Index 25.3 Const: Other: Awake alert no acute distress. Able to speak in short sentences Resp: Other: Diminished throughout with coarse rhonchi that clear with cough; diffuse expiratory wheezes Cardio: Other: No S4; positive S1-S2; no S3 murmurs rubs or gallops GI: Other: Soft nontender nondistended normoactive bowel sounds Extrem: Other: No edema bilaterally Objective Data Active Medications Acetaminophen (Acetaminophen 325 Mg Tablet) 650 mg PO Q6H PRN PRN Reason: Pain, Mild (Pain Scale 1-3), fever or headache Albuterol/Ipratropium (Albuterol/Iprat 2.5/0.5mg 3 Ml Ampul.Neb) 3 ml INHALE RQ4H WHILE AWAKE [facility] Last Admin: 03/01/24 11:25 Dose: Not Given Documented By: KATELIN Non-Admin Reason: Patient Asleep Albuterol/Ipratropium (Albuterol/Iprat 2.5/0.5mg 3 Ml Ampul.Neb) 3 ml INHALE RQ4H WHILE AWAKE PRN PRN Reason: Shortness of Breath/Wheezing Amitriptyline HCl (Amitriptyline Hcl 50 Mg Tablet) 50 mg PO BEDTIME [facility] Last Admin: 02/29/24 20:45 Dose: Not Given Documented By: ASHLEY Non-Admin Reason: Patient Refused Amlodipine Besylate (Amlodipine Besylate 5 Mg Tablet) 5 mg PO DAILY [facility]; Protocol Last Admin: 03/01/24 08:49 Dose: 5 mg Documented By: OLMAN Aspirin (Aspirin Enteric Coated 81 Mg Tablet.) 81 mg PO BEDTIME [facility] Last Admin: 02/29/24 20:37 Dose: 81 mg Documented By: ASHLEY Atorvastatin Calcium (Atorvastatin Calcium 20 Mg Tablet) 20 mg PO DAILY [facility] Last Admin: 03/01/24 08:49 Dose: 20 mg Documented By: OLMAN Baclofen (Baclofen 10 Mg Tablet) 10 mg PO TID [facility] Last Admin: 03/01/24 08:49 Dose: 10 mg Documented By: OLMAN Calcium Carbonate (Calcium Carbonate 750 Mg Tab.Chew) 750 mg PO Q4H PRN PRN Reason: Heartburn Enoxaparin Sodium (Enoxaparin Sodium 40 Mg/0.4 Ml Syringe) 40 mg SUBCUT Q24H [facility] Last Admin: 02/29/24 18:37 Dose: 40 mg Documented By: JUANITA Gabapentin (Gabapentin 400 Mg Capsule) 800 mg PO TID [facility] Last Admin: 03/01/24 08:50 Dose: 800 mg Documented By: OLMAN Glucose (Glucose Gel 15 Gm Gel..Gram.) 15 gm PO Q15M PRN; Protocol PRN Reason: per Hypoglycemia Standing Ord. Guaifenesin/Dextromethorphan (Guaifenesin Dm 200/20/10 Ml 10 Ml Syrup) 10 ml PO Q6H PRN PRN Reason: Cough Azithromycin 500 mg/ Sodium (Chloride) 250 mls @ 125 mls/hr IV Q24H [facility] Last Infusion: 02/29/24 20:30 Dose: Infused Documented By: ASHLEY Dextrose (D10) 250 mls @ 750 mls/hr IV Q15M PRN; Protocol PRN Reason: per Hypoglycemia Standing Ord. Insulin Human Lispro (Insulin Lispro 100 Unit/Ml 3 Ml Vial) 0 unit SUBCUT QIDACHS [facility]; Protocol Last Admin: 03/01/24 11:56 Dose: 4 unit Documented By: OLMAN Losartan Potassium (Losartan Potassium 50 Mg Tablet) 50 mg PO DAILY [facility]; Protocol Last Admin: 03/01/24 08:45 Dose: 50 mg Documented By: OLMAN Magnesium Hydroxide (Milk Of Magnesia 30 Ml Oral.Susp) 30 ml PO DAILY PRN PRN Reason: Constipation Last Admin: 03/01/24 09:09 Dose: 30 ml Documented By: OLMAN Melatonin (Melatonin 3 Mg Tablet) 6 mg PO BEDTIME PRN PRN Reason: Insomnia Last Admin: 02/29/24 23:54 Dose: 6 mg Documented By: ASHLEY Methylprednisolone Sodium Succinate (Methylprednisolone Sod Succ 125 Mg/2 Ml Vial) 40 mg IVPUSH BID [facility] Last Admin: 03/01/24 08:42 Dose: 40 mg Documented By: OLMAN Metoclopramide HCl (Metoclopramide Hcl 10 Mg Tablet) 10 mg PO TIDAC [facility] Last Admin: 03/01/24 11:51 Dose: 10 mg Documented By: OLMAN Nicotine (Nicotine 21 Mg Patch.Td24) 21 mg TRANSDERMA DAILY [facility] Nystatin (Nystatin Powder 15 Gm Bottle) 1 appl TOPICAL BID [facility]; Protocol Omeprazole (Omeprazole 20 Mg Capsule.Dr) 20 mg PO DAILY@0630 [facility] Last Admin: 03/01/24 05:36 Dose: 20 mg Documented By: ASHLEY Ondansetron HCl (Ondansetron Hcl 4 Mg/2 Ml Vial) 4 mg IVPUSH Q8H PRN PRN Reason: Nausea and Vomiting Simethicone (Simethicone 80 Mg Tab.Chew) 180 mg PO QID [facility] Last Admin: 03/01/24 08:50 Dose: 180 mg Documented By: OLMAN Sitagliptin Phosphate (Sitagliptin Phosphate 100 Mg Tablet) 100 mg PO DAILY [facility] Last Admin: 03/01/24 08:49 Dose: 100 mg Documented By: OLMAN Sodium Chloride (0.9 % Sodium Chloride Flush 3 Ml Syringe) 3 ml IVFLUSH QSHIFT [facility] Last Admin: 03/01/24 08:42 Dose: 3 ml Documented By: OLMAN Vitamin D (Cholecalciferol (Vitamin D3) 25 Mcg Tablet) 50 mcg PO DAILY [facility] Last Admin: 03/01/24 08:50 Dose: 50 mcg Documented By: OLMAN Labs 03/01/24 05:35 03/01/24 05:35 Labs: Laboratory Results - last 24 hr 02/29/24 02/29/24 03/01/24 16:10 20:15 05:35 MCV 86.3 MCH 26.7 L MCHC 30.9 L RDW 15.8 Plt Count 322 MPV 10.6 Immature Gran % (Auto) 0.9 H Neut % (Auto) 81.6 H Lymph % (Auto) 10.1 L [place] % (Auto) 7.2 Eos % (Auto) 0.1 Baso % (Auto) 0.1 Lymph # (Auto) 1.9 [place] # (Auto) 1.4 H Eos # (Auto) 0.0 Baso # (Auto) 0.0 Abs Immat Gran (auto) 0.18 H Absolute Neuts (auto) 15.5 H Absolute Nucleated RBC 0.000 Nucleated RBC % (auto) 0.0 Anion Gap 14 Estim Creat Clear Calc 81.8 Estimated GFR > 60 POC Glucose 234 H 291 H Fasting Glucose 146 H Calcium 10.0 Magnesium 1.7 Total Bilirubin 0.2 AST 11 ALT 11 Alkaline Phosphatase 76 Total Protein 6.5 Albumin 4.0 03/01/24 03/01/24 07:16 11:08 MCV MCH MCHC RDW Plt Count MPV Immature Gran % (Auto) Neut % (Auto) Lymph % (Auto) [place] % (Auto) Eos % (Auto) Baso % (Auto) Lymph # (Auto) [place] # (Auto) Eos # (Auto) Baso # (Auto) Abs Immat Gran (auto) Absolute Neuts (auto) Absolute Nucleated RBC Nucleated RBC % (auto) Anion Gap Estim Creat Clear Calc Estimated GFR POC Glucose 134 H 212 H Fasting Glucose Calcium Magnesium Total Bilirubin AST ALT Alkaline Phosphatase Total Protein Albumin Microbiology Microbiology Results: Microbiology 02/28/24 19:57 Blood Culture - Preliminary Blood - Venous No growth after 24 hours. 02/28/24 19:57 Blood Culture - Preliminary Blood - Venous No growth after 24 hours. Assessment and Plan (1) Acute exacerbation of chronic obstructive pulmonary disease: Status: Acute Plan Pt is a 63-year-old female with a PMH significant for?COPD on 2 L NC at home, HTN, HLD, [id number] type 2 diabetes, and GERD who presents to the ED with?SOB, BARON, and difficulty breathing for the past few days. Pt will be admitted to the hospital for treatment and further evaluation of acute on chronic hypoxic respiratory failure in the setting of COPD exacerbation. 1.Acute chronic hypoxic respiratory failure in the setting of COPD exacerbation -slowly improving and response to therapies -continue pulse dose steroids ... Decreased to 40 q.12 -azithromycin (3) 2.Hypomagnesemia -repleted with good results -follow up clinically and treat as indicated 3.[id number]-[id number] type 2 diabetes -lispro correctional scale -resume metformin at home dosing -adjust as indicated Lovenox Full code Require ongoing hospitalization for IV steroids and IV antibiotics to treat acute on chronic hypoxic respiratory failure Quality Stroke Does the patient have a stroke diagnosis?: No VTE Prior VTE?: No VTE Risk Level:: Medical - moderate - high VTE Device Contraindication: Treatment Not Indicated VTE Drug Contraindication: N/A - Med Ordered
--- NOTE | 2024-03-01 13:12 | MHC.CM.PN ---
PER REVIEW OF CHART, PATIENT IS NOT MEDICALLY CLEAR FOR DISCHARGE. CASE MANAGEMENT FOLLOWING FOR HER RETURN HOME
[2024-03-01 15:14] VITALS: BP 149/66; PULSE 82; RESP 18; TEMP 36.6; O2SAT 94
[2024-03-01] MEDS: Albuterol/Iprat 2.5/0.5MG 3 ML AMPUL.NEB INHALE ×2 (15:37→20:38)
[2024-03-01] MEDS: Nystatin Powder 15 GM BOTTLE 1 APPL TOPICAL ×2 (15:45→21:01)
[2024-03-01 16:34] LABS: Glucose, Whole Blood 174 mg/dL (60-115)
[2024-03-01] MEDS: Enoxaparin Sodium 40 MG/0.4 ML SYRINGE SUBCUT ×2 (17:42→17:43)
[2024-03-01] MEDS: Azithromycin 500 MG in 0.9 % Sodium Chloride 250 ML 125 MG IV (17:44)
[2024-03-01 19:30] VITALS: BP 151/68; PULSE 73; RESP 18; TEMP 36.5; O2SAT 96
[2024-03-01 20:21] LABS: Glucose, Whole Blood 191 mg/dL (60-115)
[2024-03-01 20:38] VITALS: PULSE 75; RESP 16; O2SAT 96
[2024-03-01] MEDS: Aspirin Enteric Coated 81 MG TABLET.DR PO (20:47)
[2024-03-01] MEDS: Amitriptyline HCl 50 MG TABLET PO (20:47)
[2024-03-02 03:07] VITALS: BP 158/80; PULSE 79; RESP 18; TEMP 36; O2SAT 96
[2024-03-02 06:56] LABS: MANUAL DIFF FLAG NO
[2024-03-02 07:07] LABS: Basophils Percent Auto 0.2 % (0-2); Hematocrit 36.4 % (37.0-47.0); Imm Gran Abs Auto 0.18 X10*3/uL (0.00-0.03); Imm Gran Pct Auto 1.5 % (0.0-0.4); Lymphocytes Absolute Auto 1.1 X10*3/uL (1.2-4.9); Lymphocytes Percent Auto 9.3 % (20-40); Mean Corpuscular HGB Conc 30.2 g/dl (31.0-35.0); Mean Corpuscular Hemoglobin 26.1 pg (27.0-33.0); Mean Corpuscular Volume 86.5 fL (80.0-98.0); Monocytes Absolute Auto 0.2 X10*3/uL (0.1-1.2); Monocytes Percent Auto 1.8 % (2-11); Neutrophils Absolute Auto 10.5 x10*3/uL (2.0-8.3); Neutrophils Percent Auto 87.2 % (45-73); Platelet Count 322 X10*3/uL (160-400); Red Blood Count 4.21 X10*6/uL (4.20-5.50); Red Cell Distribution Width 15.6 % (11.0-16.0); White Blood Count 12.1 X10*3/uL (4.8-10.8)
[2024-03-02 07:17] LABS: Alanine Aminotransferase 16 U/L (0-31); Albumin Level 3.9 g/dL (3.5-5.0); Alkaline Phosphatase 73 U/L (39-117); Anion Gap 17 (12-20); Aspartate Amino Transferase 14 U/L (5-31); Bilirubin Total 0.2 mg/dL (0.0-1.0); Blood Urea Nitrogen 13 mg/dL (9-16); Calcium 9.7 mg/dL (8.4-10.2); Carbon Dioxide 27 mmol/L (22-29); Chloride 101 mmol/L (96-108); Creatinine Clr Calc Pharmacy 78.6; Estimated Glomerular Filt Rate > 60; Glucose Fasting 227 mg/dL (60-99); Magnesium 1.8 mg/dL (1.6-2.6); Potassium 4.5 mmol/L (3.3-5.1); Sodium 140 mmol/L (135-145); Total Protein 6.4 g/dL (6.5-8.0)
[2024-03-02 07:36] VITALS: BP 148/68; PULSE 78; RESP 17; TEMP 36.6; O2SAT 94
[2024-03-02 07:45] LABS: Glucose, Whole Blood 186 mg/dL (60-115)
[2024-03-02] MEDS: Insulin Lispro 100 UNIT/ML 3 ML VIAL SUBCUT ×2 (08:20→12:02)
[2024-03-02] MEDS: methylPREDNISolone Sod Succ 125 MG/2 ML VIAL 40 MG IVPUSH (08:21)
[2024-03-02] MEDS: Simethicone 80 MG TAB.CHEW 180 MG PO ×2 (08:21→14:51)
[2024-03-02 08:22] VITALS: BP 148/68
[2024-03-02] MEDS: Baclofen 10 MG TABLET PO ×2 (08:22→14:51)
[2024-03-02] MEDS: Cholecalciferol (Vitamin D3) 25 MCG TABLET 50 MCG PO (08:22)
[2024-03-02] MEDS: SITagliptin Phosphate 100 MG TABLET PO (08:22)
[2024-03-02] MEDS: Losartan Potassium 50 MG TABLET PO (08:22)
[2024-03-02] MEDS: Omeprazole 20 MG CAPSULE.DR PO (08:22)
[2024-03-02] MEDS: Atorvastatin Calcium 20 MG TABLET PO (08:22)
[2024-03-02] MEDS: Metoclopramide HCl 10 MG TABLET PO ×2 (08:22→12:02)
[2024-03-02] MEDS: Gabapentin 400 MG CAPSULE 800 MG PO ×2 (08:22→14:51)
[2024-03-02] MEDS: amLODIPine Besylate 5 MG TABLET PO (08:22)
[2024-03-02] MEDS: 0.9 % Sodium Chloride Flush 3 ML SYRINGE IVFLUSH (08:24)
[2024-03-02] MEDS: Nystatin Powder 15 GM BOTTLE 1 APPL TOPICAL (08:32)
[2024-03-02] MEDS: Albuterol/Iprat 2.5/0.5MG 3 ML AMPUL.NEB INHALE (11:30)
[2024-03-02 11:31] VITALS: PULSE 79; RESP 18; O2SAT 97
[2024-03-02 11:31] LABS: Glucose, Whole Blood 203 mg/dL (60-115)
--- NOTE | 2024-03-02 14:37 | PM.DS ---
DS: Providers Provider Date of Service: 03/02/24 Date of admission: 02/28/24 18:26 Date of discharge: 03/02/24 Primary care physician: Magalie Nicolas MD Attending physician on discharge: Macario Hartman Discharging clinician: Kimberly Donovan DS: Diagnosis Discharge Diagnosis (1) Acute exacerbation of chronic obstructive pulmonary disease: Status: Acute DS: Summary Hospital Course Hospital Course: From H&P on the day of admission Pt is a 63-year-old female with a PMH significant for?COPD on 2 L NC at home, HTN, HLD, [id number] type 2 diabetes, and GERD who presents to the ED with?SOB, BARON, and difficulty breathing for the past few days. Patient has also complains of new cough during this time that has been productive white to yellowish sputum. Denies fever or chills. No nausea, vomiting, diarrhea, abdominal pain. Denies chest pain/pressure, palpitations. No pleuritic chest pain. States often forgets to use her maintenance inhalers, using them maybe once or twice a week. Continues to smoke 1 pack daily. In the ED pt was afebrile, but with elevated heart rate up to 96, tachypneic up 26, mildly hypertensive up to 140/55, and noted to be hypoxic at 89% on chronic home 2L NC. Labs were significant for chronically elevated leukocytosis of 17.4 (around baseline) and magnesium 1.4, otherwise grossly unremarkable and around baseline. Stable H&H. Renal and hepatic function baseline. Tested negative for COVID, RSV, flu. UA negative for UTI. CXR showed mild bronchial thickening and bibasilar atelectasis but no acute intrathoracic disease. Pt was treated with DuoNebs, Mag sulfate, and Solu-Medrol 125 mg IV. Pt will be admitted to the hospital for treatment and further evaluation of acute on chronic hypoxic respiratory failure in the setting of COPD exacerbation. Acute on chronic respiratory failure with hypoxia due to acute COPD exacerbation Treated with bronchodilator therapy, systemic steroids symptoms improved. She is currently saturating on her home oxygen and her respiratory symptoms have improved significantly. She is eager to return home. She was able to ambulate without any significant shortness of breath. Chest x-ray negative for pneumonia, blood cultures have remained negative to date. Patient has remained afebrile. Smoking cessation advised. Hypomagnesemia, low magnesium on arrival, was replaced with good. Time Attestation Discharge Coordination Time (in mins): 35 Quality: Safe Use of Opioids Does Pt have an Active Cancer Diagnosis on the Problem List?: No Quality: Stroke Does the patient have a stroke diagnosis?: No Physical Exam Vital Signs: Vital Signs: Last Vital Signs Temp 97.9 F 03/02/24 07:36 Pulse 79 03/02/24 11:31 Resp 18 03/02/24 11:31 BP 148/68 H 03/02/24 08:22 Pulse Ox 94 03/02/24 07:36 O2 Del Method Nasal Cannula 03/02/24 07:36 O2 Flow Rate 2.0 03/02/24 07:36 Oxygen Flow Rate 2 02/28/24 15:25 BMI result Body Mass Index 25.3 Const: General: cooperative, comfortable, no acute distress, alert and awake Nutritional Appearance: average body habitus Resp: Effort & Inspection: normal respiratory effort, able to speak in complete sentences, no respiratory distress and no use of accessory muscles Cardio: Rate: regular rate GI: Inspection: No distended Palpation (GI): Soft to palpation Neuro: General: moves all extremities and CN's II-XI intact bilaterally DS: Data Data Completed and Pending Labs on day of discharge: Laboratory Results - last 24 hr 03/01/24 03/01/24 03/02/24 16:21 19:55 05:42 WBC 12.1 H RBC 4.21 Hgb 11.0 L Hct 36.4 L MCV 86.5 MCH 26.1 L MCHC 30.2 L RDW 15.6 Plt Count 322 MPV 11.0 Immature Gran % (Auto) 1.5 H Neut % (Auto) 87.2 H Lymph % (Auto) 9.3 L [place] % (Auto) 1.8 L Eos % (Auto) 0.0 Baso % (Auto) 0.2 Lymph # (Auto) 1.1 L [place] # (Auto) 0.2 Eos # (Auto) 0.0 Baso # (Auto) 0.0 Abs Immat Gran (auto) 0.18 H Absolute Neuts (auto) 10.5 H Absolute Nucleated RBC 0.000 Nucleated RBC % (auto) 0.0 Sodium 140 Potassium 4.5 Chloride 101 Carbon Dioxide 27 Anion Gap 17 BUN 13 Creatinine 0.52 Estim Creat Clear Calc 78.6 Estimated GFR > 60 POC Glucose 174 H 191 H Fasting Glucose 227 H Calcium 9.7 Magnesium 1.8 Total Bilirubin 0.2 AST 14 ALT 16 Alkaline Phosphatase 73 Total Protein 6.4 L Albumin 3.9 03/02/24 03/02/24 07:39 11:26 WBC RBC Hgb Hct MCV MCH MCHC RDW Plt Count MPV Immature Gran % (Auto) Neut % (Auto) Lymph % (Auto) [place] % (Auto) Eos % (Auto) Baso % (Auto) Lymph # (Auto) [place] # (Auto) Eos # (Auto) Baso # (Auto) Abs Immat Gran (auto) Absolute Neuts (auto) Absolute Nucleated RBC Nucleated RBC % (auto) Sodium Potassium Chloride Carbon Dioxide Anion Gap BUN Creatinine Estim Creat Clear Calc Estimated GFR POC Glucose 186 H 203 H Fasting Glucose Calcium Magnesium Total Bilirubin AST ALT Alkaline Phosphatase Total Protein Albumin Preliminary micro results at discharge 02/28/24 19:57 Blood Culture - Preliminary Blood - Venous No growth after 48 hours. 02/28/24 19:57 Blood Culture - Preliminary Blood - Venous No growth after 48 hours. Discharge Plan Discharge Anticipated Discharge Date/Time: 03/02/24 14:19 Patient Disposition: Home, Self-Care Discharge Diagnosis: copd exacerbation Referrals: Magalie Nicolas MD [Primary Care Provider] - 1 Week Discharge Medications: New prednisone 20 mg tablet 40 mg PO DAILY 5 Days Qty: 10 0RF azithromycin 250 mg tablet 250 mg PO DAILY 2 Days Qty: 2 0RF Continued (DME) lancets [FreeStyle Lancets] 28 gauge misc See Rx Instructions .Route Qty: 100 5RF Rx Instructions: As directed twice a day AC (DME) FreeStyle Lite Strips Strip See Rx Instructions .Route Qty: 100 0RF Rx Instructions: check fasting blood sugar twice a day before meals (DME) FreeStyle Cristian 2 Sensor Kit See Rx Instructions .Route Qty: 6 3RF Rx Instructions: Test blood sugar 4 times per day (DME) FreeStyle Cristian 2 Burtrum Misc See Rx Instructions .Route Qty: 1 0RF Rx Instructions: test blood sugar 4 times per day losartan 50 mg tablet 50 mg PO DAILY Qty: 90 1RF Januvia 100 mg tablet 100 mg PO DAILY Qty: 90 1RF cholecalciferol (vitamin D3) 50 mcg (2,000 unit) capsule 50 mcg PO DAILY Qty: 90 1RF metformin 1,000 mg tablet 1,000 mg PO BID Qty: 180 3RF rosuvastatin 5 mg tablet 5 mg PO DAILY Qty: 90 1RF amlodipine 5 mg tablet 5 mg PO DAILY Qty: 90 0RF simethicone 180 mg capsule 180 mg PO QID Qty: 120 6RF gabapentin 800 mg tablet 800 mg PO TID 30 Days Qty: 90 6RF albuterol sulfate 2.5 mg /3 mL (0.083 %) solution for nebulization 2.5 mg inhalation Q6H PRN (Reason: wheezing) amitriptyline 25 mg tablet 50 mg PO BEDTIME omeprazole 20 mg capsule,delayed release(DR/EC) 20 mg PO DAILY@0630 naproxen 500 mg tablet 500 mg PO BID psyllium husk [Fiber Laxative (psyllium husk)] 0.52 gram capsule 1.04 g PO BID PRN (Reason: Constipation) Linzess 145 mcg capsule 145 mcg PO DAILY metoclopramide HCl [Reglan] 10 mg tablet 10 mg PO TIDAC umeclidinium 62.5 mcg/actuation blister with device 1 inh inhalation DAILY Rx Instructions: Encruse aspirin [Adult Low Dose Aspirin] 81 mg tablet,delayed release (DR/EC) 81 mg PO BEDTIME (DME) blood-glucose meter [FreeStyle Lite Meter] Kit See Rx Instructions .Route Qty: 1 0RF Rx Instructions: As directed twice a day before meals Arnuity Ellipta 200 mcg/actuation blister with device 1 inh inhalation DAILY baclofen 10 mg tablet 10 mg PO TID 30 Days Qty: 90 6RF Discharge Orders: Discharge Order (Routine); Ordered 03/02/24 Ordered By: Kimberly Donovan Activity on Discharge: As tolerated Stand Alone Forms: Patient Portal Discharge page Print Language: Citizen Of [place] Care Plan Goals: See below Health Concerns: Acute COPD exacerbation Plan of Treatment: Complete course of steroids and antibiotics as prescribed Call to schedule follow-up appointment with PCP Assessment: See discharge summary
--- NOTE | 2024-03-02 14:55 | MHC.CM.PN ---
Patient medically cleared for dc home self care. S.O. to provide transport. RN aware.
[2024-03-02 15:03] VITALS: BP 142/67; PULSE 80; RESP 16; TEMP 36.2; O2SAT 93
== END 2024-03-02 16:08 | disposition home or self-care (01) | DRG 140 ==
LOC: HO.ED 17:51 → HO.EDOVER 18:38 → HO.S3 19:22
PROVIDERS: Hospitalist; Physician Assistant Medical; Admitting Provider Student in an Organized Health Care Education/Training Program; Emergency Provider Student in an Organized Health Care Education/Training Program; PCP Internal Medicine; Visit Provider Physician Assistant Medical
DX: J44.1 Chronic obstructive pulmonary disease with (acute) exacerbation (principal); J96.21 Acute and chronic respiratory failure with hypoxia; E11.43 Type 2 diabetes mellitus with diabetic autonomic (poly)neuropathy; K31.84 Gastroparesis; E83.42 Hypomagnesemia; Z99.81 Dependence on supplemental oxygen; I10 Essential (primary) hypertension; E78.5 Hyperlipidemia, unspecified; K21.9 Gastro-esophageal reflux disease without esophagitis; F17.210 Nicotine dependence, cigarettes, uncomplicated; Z20.822 Contact with and (suspected) exposure to COVID-19; Z79.51 Long term (current) use of inhaled steroids; Z79.82 Long term (current) use of aspirin; Z79.84 Long term (current) use of oral hypoglycemic drugs; Z79.899 Other long term (current) drug therapy
CPT/HCPCS: 0241U; 36415; 71046; 80048; 80053; 81003; 82803; 82947; 83735; 84484; 85025; 85027; 85610; 85730; 87040; 93005; 94640; 99285; J0456; J1650; J2919; J3475

== ENCOUNTER → 2024-02-28 15:27 | Outpatient (BNV) | payer OTHER, SELFPAY | PROVIDERS: Emergency Provider Student in an Organized Health Care Education/Training Program; PCP Internal Medicine; Visit Provider Internal Medicine Cardiovascular Disease | DX: R94.31 Abnormal electrocardiogram [ECG] [EKG] (principal) | CPT/HCPCS: 93010 ==

== ENCOUNTER → 2024-02-28 18:26 | Outpatient (BNV) | payer OTHER, SELFPAY | PROVIDERS: Admitting Provider Student in an Organized Health Care Education/Training Program; Emergency Provider Student in an Organized Health Care Education/Training Program; PCP Internal Medicine; Visit Provider Student in an Organized Health Care Education/Training Program | DX: J44.1 Chronic obstructive pulmonary disease with (acute) exacerbation (principal); J96.21 Acute and chronic respiratory failure with hypoxia | CPT/HCPCS: 99223; 99232; 99239; 99499 ==

== ENCOUNTER 2024-03-17 15:00 | Observation (INO) | payer OTHER, SELFPAY ==
[2024-03-17] VITALS (9 sets, daily range): BP systolic 96–145; BP diastolic 41–84; PULSE 86–99; RESP 18–29; TEMP 36.9–37.3; O2SAT 88–95; BMI 27.9
--- NOTE | ~2024-03-17 | XR_ITS ---
EXAMINATION: XR CHEST CLINICAL INFORMATION: Abdominal pain. COMPARISON: None available. TECHNIQUE: 2 views of the chest were obtained. FINDINGS: Lungs are clear. No pulmonary vascular congestion. There is no pleural effusion. The heart size is normal. The cardiac and mediastinal contours are normal. There are calcifications of the thoracic aorta. There are multilevel degenerative changes of dorsal spine. Orthopedic hardware in cervical spine. XR/XR chest 2V IMPRESSION: Unremarkable examination.
--- NOTE | ~2024-03-17 | CT_ITS ---
EXAMINATION: CT ABDOMEN AND PELVIS WITHOUT CONTRAST CLINICAL INFORMATION: Abdominal pain. Abdominal distention. COMPARISON: CT scan abdomen pelvis November 01, 2018 TECHNIQUE: Multidetector volumetric imaging was performed from the superior aspect of the liver through the pubic symphysis. Sagittal and coronal reformatted images were obtained on the technologist's workstation. This CT examination was performed using dose optimization techniques as appropriate, variously including the following: *Automated exposure control *Adjustment of mA and/or kV according to patient size (this includes techniques or standardized protocols for targeted exams where dose is matched to indication/reason for exam; i.e. extremities or head) *Use of iterative reconstruction technique DLP: 420 mGy-cm FINDINGS: LUNG BASES: Chronic coarse reticular changes of the right lower lobe stable since 2019. No acute airspace disease. No pleural effusion. LIVER, GALLBLADDER, AND BILIARY TREE: No focal liver lesion. No intrahepatic bile duct dilatation. Right lobe of liver measures 17 cm. The gallbladder is unremarkable with no evidence of radiopaque gallstones, gallbladder wall thickening, or obvious pericholecystic inflammatory changes. PANCREAS: Unremarkable. SPLEEN: Unremarkable. ADRENAL GLANDS: Unremarkable. KIDNEYS AND URETERS: The lower pole cortex of the right kidney there is a slightly hyperdense lesion measuring 1.9 cm. This demonstrated mixed attenuation on CT scan November 01, 2018. Previously measured 1.5 cm in maximum dimension. Lesion was indeterminate on MR abdomen study April 05, 2019. (See separate report.) No calculus or hydronephrosis. BLADDER: Unremarkable. GASTROINTESTINAL TRACT: No acute abnormality. There is no bowel wall thickening /edema. There is no bowel obstruction. There is a moderate volume of stool in the colon. The appendix is normal . The small bowel loops are unremarkable. The stomach is normal. There is no hiatal hernia. ABDOMINAL WALL: No significant hernia is appreciated. LYMPH NODES: Normal. VASCULAR: Vascular calcifications of aorta and iliac arteries. There is no aneurysm. PELVIC VISCERA: Unremarkable. OSSEOUS STRUCTURES: No acute osseous abnormality. Multilevel degenerative spondylosis spine. CT/CT abdomen pelvis wo IV con IMPRESSION: 1. No acute abnormality CT scan abdomen pelvis. 2. Slight increased size of a lower pole right renal lesion since prior study April 05, 2019. Fleischner guidelines were followed.
--- NOTE | 2024-03-17 16:07 | ED.ABDPAIN ---
HPI - Abdominal Pain General Chief Complaint: Abdominal Pain Stated Complaint: Abd pain and nausea xfew days Time Seen by Provider: 03/17/24 16:07 Source: patient and RN notes reviewed Mode of arrival: ambulatory Limitations: no limitations History of Present Illness ED Provider: Gena Mcgarry PA-C HPI narrative: 63-year-old female with a PMH significant for COPD on 2 L NC at home, HTN, HLD, [id number] type 2 diabetes, and GERD who presents to the ER with a complaint of nausea, diffuse abdominal pain, increased shortness of breath and wheezing. Patient reports that her symptoms started several days ago. She states that she is still eating, she denies any chest pain, palpitations. Reporting urinary frequency and urgency. No dysuria. She reports that she is moving her bowels without difficulty. No bloody or black stool. No diarrhea. No sick contacts. Recent travel. She was admitted to the hospital for COPD exacerbation in mid February. No other complaints or concerns at this time. MD elicited complaint: abdominal pain Pain Consistency: constant Location: diffuse Severity: mild Quality: cramping Radiation: none Migration to: no migration Exacerbating factors: nothing Relieving factors: nothing Associated symptoms: denies other symptoms Related Data Home Medications ?Medication ?Instructions ?Recorded ?Confirmed aspirin 81 mg tablet,delayed 81 mg PO BEDTIME 01/10/21 02/28/24 release (Adult Low Dose Aspirin) umeclidinium 62.5 mcg/actuation 1 inh inhalation DAILY 03/31/21 02/28/24 blister powder for inhalation albuterol sulfate 2.5 mg/3 mL 2.5 mg inhalation Q6H PRN wheezing 08/02/23 02/28/24 (0.083 %) solution for nebulization fluticasone furoate 200 1 inh inhalation DAILY 08/25/23 02/28/24 mcg/actuation blister powder for inhalation (Arnuity Ellipta) amitriptyline 25 mg tablet 50 mg PO BEDTIME 02/28/24 02/28/24 linaclotide 145 mcg capsule 145 mcg PO DAILY 02/28/24 02/28/24 (Linzess) metoclopramide HCl 10 mg tablet 10 mg PO TIDAC gastroparesis 02/28/24 02/28/24 (Reglan) omeprazole 20 mg capsule,delayed 20 mg PO DAILY@0630 02/28/24 02/28/24 release psyllium husk 0.52 gram capsule 1.04 g PO BID PRN Constipation 02/28/24 02/28/24 (Fiber Laxative (psyllium husk)) Previous Rx's ?Medication ?Instructions ?Recorded blood-glucose meter (FreeStyle #1 ea 10/03/21 Lite Meter kit) lancets 28 gauge (FreeStyle #100 ea 01/06/22 Lancets) FreeStyle Lite Strips (blood sugar #100 ea 03/10/22 diagnostic) flash glucose sensor (FreeStyle #6 ea 02/19/23 Cristian 2 Sensor kit) flash glucose scanning reader #1 ea 03/26/23 (FreeStyle Cristian 2 [place]) losartan 50 mg tablet 50 mg PO DAILY #90 tabs 10/10/23 cholecalciferol (vitamin D3) 50 50 mcg PO DAILY #90 caps 11/22/23 mcg (2,000 unit) capsule sitagliptin phosphate 100 mg 100 mg PO DAILY #90 tabs 11/22/23 tablet (Januvia) metformin 1,000 mg tablet 1,000 mg PO BID #180 tabs 12/01/23 rosuvastatin 5 mg tablet 5 mg PO DAILY #90 tabs 12/01/23 amlodipine 5 mg tablet 5 mg PO DAILY #90 tabs 12/19/23 simethicone 180 mg capsule 180 mg PO QID #120 caps 01/13/24 gabapentin 800 mg tablet 800 mg PO TID 30 days #90 tabs 01/26/24 baclofen 10 mg tablet 10 mg PO TID 30 days #90 tabs 01/27/24 azithromycin 250 mg tablet 250 mg PO DAILY 2 days #2 tabs 03/02/24 prednisone 20 mg tablet 40 mg (2 x 20 mg) PO DAILY 5 days 03/02/24 #10 tabs naproxen 500 mg tablet 500 mg PO BID PRN for pain #30 tabs 03/14/24 Allergies Allergy/AdvReac Type Severity Reaction Status Date / Time amoxicillin [AMOXICILLIN] Allergy Intermediate RASH Verified 03/17/24 15:14 Review of Systems Review of Systems Yes all other systems are reviewed and are negative Constitutional: Reports as per [facility] Past Medical History Medical History Chronic lung disease COPD (chronic obstructive pulmonary disease) Type 2 diabetes mellitus without complication, with no history of insulin use Mixed dyslipidemia Essential hypertension GERD (gastroesophageal reflux disease) Gastroparesis Diastolic CHF with preserved left ventricular function, NYHA class 2 Chronic hypercapnic respiratory failure Type 2 diabetes mellitus with other diabetic kidney complication Type 2 diabetes mellitus without complication, with no history of insulin use Smoker unmotivated to quit Postlaminectomy syndrome of cervical region Seasonal allergic rhinitis Degenerative disc disease, cervical Postmenopause Dyslipidemia Surgical History H/O cervical discectomy History of esophagogastroduodenoscopy (EGD) Hx of colonoscopy Family History Family History Mother Diabetes Sister Diabetes Mental health disorder Brother Diabetes Father HTN (hypertension) Social History Social History Household Members: Other Housing: Other Housing Other:: Mobile Home Do you presently have visiting nurse or other home services: No Alcohol intake: former Comment: Commode/ Hi Flow O2 Patient Tobacco Use Status: Current everyday Tobacco user Tobacco use type: Cigarette Cigarette Packs Per Day: 1 Cigarettes Per Day: 20 Years Smoked: 50 Smoked in Last 30 Days: Yes e-Cigarette/Vaping Use: Never Used Second Hand Smoke Exposure: No Use of substances other than those prescribed or required for medical reasons: No Advance Directives: No Advance Directives Information Provided: No Advance Directives Date on File: 09/20/21 Do you have a plan to hurt others: No Plan service: No Current occupational status: unemployed Cognitive needs: No Hearing needs: No Vision needs: Yes Physical Exam ED Vital Signs: Vital Signs - 24 hr 03/17/24 15:13 03/17/24 15:53 03/17/24 17:07 Temperature 98.5 F Pulse Rate 94 92 96 Respiratory Rate 20 25 H 20 Blood Pressure 134/51 L 145/50 H Pulse Oximetry 90 L 90 L Oxygen Delivery Method Nasal Cannula Nasal Cannula Oxygen Flow Rate 2 03/17/24 18:00 03/17/24 20:00 03/17/24 20:04 Temperature 99.0 F 99.2 F Pulse Rate 95 91 86 Respiratory Rate 29 H 22 H 18 Blood Pressure 96/63 116/56 L Pulse Oximetry 90 L 90 L Oxygen Delivery Method Nasal Cannula Nasal Cannula Oxygen Flow Rate 2 4 03/17/24 22:00 03/17/24 23:20 Temperature Pulse Rate 99 Respiratory Rate 22 H Blood Pressure 142/41 H Pulse Oximetry 93 88 L Oxygen Delivery Method Nasal Cannula Nasal Cannula Oxygen Flow Rate 4 2 BMI result Body Mass Index 27.9 Const General: cooperative, comfortable and no acute distress Orientation/consciousness: patient oriented x3 Limitations: no limitations HENNM Head: Yes normal to inspection, Yes normocephalic and Yes atraumatic Ears: hearing grossly normal bilaterally General nose exam: Normal external nose present Face and sinus: Yes normal facial exam Mouth: Normal oral and palatal mucosa present, oropharynx normal and moist mucous membranes Throat: Yes posterior oropharynx normal Eyes General: appearance normal, both eyes and all related structures Eyelids: Yes eyelids normal Conjunctivae: conjunctivae normal Sclerae: sclerae normal Pupils: Equal, round and reactive pupils present EOM: EOMs intact bilaterally Neck Neck: Yes normal visual inspection, Yes full ROM and Yes no lymphadenopathy Lymphatic: no lymphadenopathy noted Chest Other: Coarse lung sounds heard throughout all lung mayo Chest palpation & inspection: normal inspection of the chest Resp Other: Labored breathing, with inspiratory and expiratory coarse rhonchi auscultated. Effort & Inspection: able to speak in complete sentences Cardio Rate: regular rate Rhythm: regular rhythm Heart sounds: S1 normal heart sound present and S2 normal heart sound present GI Other: Abdomen is soft, with diffuse tenderness throughout. Inspection: Yes normal to inspection Skin General skin exam: no rashes or lesions noted Trauma: no lacerations or abrasions Wounds: no wounds Neuro General: patient oriented x3 and moves all extremities Cranial nerves: Yes Equal, round and reactive pupils present Extrem Other: No peripheral lower extremity swelling General: Yes normal to inspection Right upper extremity: normal to inspection Left upper extremity: normal to inspection Right lower extremity: normal to inspection Left lower extremity: normal to inspection Course Reevaluation(s) Reevaluation #1: Received critical lab of a magnesium level of 1.2, will replete magnesium with IV Mag. At this time, we are awaiting urine sample Time: 18:18 Reevaluation #2: Patient's oxygen tea during between 88% and 92% on 3 L. Given circumstances, 2nd duo nebulizer ordered as well as 125 of Solu-Medrol. Patient is still complaining of abdominal pain, reporting that it feels bloated, labs revealing slight leukocytosis at 12.8, normocytic anemia noted, chemistry revealing hypernatremia at 147 creatinine within normal limits, she has a magnesium level of 1.2, which is replenished with 2 g IV Mag. Urine with trace ketones, 1+ bacteria however this does appear to be contaminated with 11-20 squamous epithelial cells. It does not appear that this is UTI in nature. We will continue to closely monitor. Chest x-ray negative for pneumonia. Time: 19:15 Reevaluation #3: Patient re-evaluated, CT scan revealing slight increase in size of lower pole right renal lesion, otherwise no acute abnormality seen. Discussed findings with patient. Upon my reassessment, patient on 4 L nasal cannula oxygen saturation 93%. I turned down her nasal cannula O2 as patient typically wears 2 L at home, patient dropped to 88%. She has received IV Solu-Medrol, with multiple updrafts, as well as IV magnesium. Given increased demand for nasal cannula O2, she would benefit from hospitalization for COPD exacerbation. Time: 23:10 Medical Decision Making Medical Decision Making [facility] Narrative: 63-year-old female with a PMH significant for COPD on 2 L NC at home, HTN, HLD, [id number] type 2 diabetes, and GERD who presents emergency department with complaints of nausea, abdominal pain, shortness for breath and BARON. Of note, patient was recently admitted from February 27 through March 02 for acute on chronic hypoxic respiratory failure in the setting of COPD exacerbation. On arrival, patient 88% on 2 L, this was increased to 3 L, saturating at 92%. Lung mayo are coarse noted throughout bilaterally. Differential diagnoses include URI, bronchitis, COPD exacerbation, acute respiratory failure, viral syndrome. Plan: Labs, chest x-ray, abdomen and pelvis CT, EKG Differential Diagnosis Differential Diagnoses: The differential diagnosis associated with the presentation includes See above Admission/Observation Consideration of admission/observation: Escalation of care including admission/observation considered Patient requiring admission secondary to increased demand for supplemental O2 Consult Healthcare Provider Management of the patient was discussed with: Hospitalist Lab Data [facility] Lab Attestation statement: I reviewed the patient's lab results. Slight leukocytosis at 12.8, slight normocytic anemia with an H&H of 11.5/38.5 this appears to be at her baseline. Creatinine without any evidence of BENNETT. Hypo magnesium at 1.2. Troponin 3. Urine with 1+ bacteria with squamous epithelial cells, she has no urinary symptoms therefore will not treat for UTI, await urine culture. 03/17/24 16:53 03/17/24 16:53 Labs: Lab Results 03/17/24 03/17/24 03/17/24 Range/Units 16:53 16:56 18:06 WBC 12.8 H (4.8-10.8) X10*3/uL RBC 4.39 (4.20-5.50) X10*6/uL Hgb 11.5 L (12.0-16.0) g/dl Hct 38.5 (37.0-47.0) % MCV 87.7 (80.0-98.0) fL MCH 26.2 L (27.0-33.0) pg MCHC 29.9 L (31.0-35.0) g/dl RDW 15.9 (11.0-16.0) % Plt Count 307 (160-400) X10*3/uL MPV 9.6 (9.4-12.3) fL Immature Gran % (Auto) 0.6 H (0.0-0.4) % Neut % (Auto) 75.2 H (45-73) % Lymph % (Auto) 16.5 L (20-40) % Harnett % (Auto) 6.1 (2-11) % Eos % (Auto) 1.2 (0-4) % Baso % (Auto) 0.4 (0-2) % Lymph # (Auto) 2.1 (1.2-4.9) X10*3/uL Harnett # (Auto) 0.8 (0.1-1.2) X10*3/uL Eos # (Auto) 0.2 (0.0-0.4) X10*3/uL Baso # (Auto) 0.1 (0.0-0.2) X10*3/uL Abs Immat Gran (auto) 0.08 H (0.00-0.03) X10*3/uL Absolute Neuts (auto) 9.6 H (2.0-8.3) x10*3/uL Absolute Nucleated RBC 0.000 (0.0-0.012) X10*3/uL Nucleated RBC % (auto) 0.0 (0.0-0.2) /100WBC VBG pH (7.32-7.43) VBG pCO2 mmHg VBG pO2 mmHg VBG HCO3 (22-26) mmol/L VBG O2 Saturation % VBG Base Excess mmol/L Sodium 147 H (135-145) mmol/L Potassium 3.7 (3.3-5.1) mmol/L Chloride 102 (96-108) mmol/L Carbon Dioxide 33 H (22-29) mmol/L Anion Gap 16 (12-20) BUN 7 L (9-16) mg/dL Creatinine 0.52 (0.5-1.4) mg/dL Estim Creat Clear Calc 82.4 Estimated GFR > 60 Random Glucose 111 (60-115) mg/dL Calcium 10.1 (8.4-10.2) mg/dL Magnesium 1.2 L* (1.6-2.6) mg/dL Total Bilirubin 0.2 (0.0-1.0) mg/dL AST 11 (5-31) U/L ALT 10 (0-31) U/L Alkaline Phosphatase 101 (39-117) U/L Troponin I High Sens 3.0 D (<3.5-17.0) ng/L B-Natriuretic Peptide < 10 (<100) pg/mL Total Protein 7.4 (6.5-8.0) g/dL Albumin 4.1 (3.5-5.0) g/dL Lipase 13 (8-78) U/L Urine Color Dark Yellow Urine Appearance Cloudy Urine pH 5.5 (5.0-9.0) Ur Specific Harwood >= 1.030 H (1.005-1.025) Urine Protein 30 (1+) H (Neg-Trace) mg/dL Urine Glucose (UA) Negative (Negative) mg/dL Urine Ketones Trace (Negative) mg/dL Urine Blood Negative (Negative) Urine Nitrite Negative (Negative) Ur Leukocyte Esterase Negative (Negative) Urine RBC 0-2 (0-2) /HPF Urine WBC 0-5 (0-5) /HPF Ur Squamous Epith Cells 11-20 (0-2) /HPF Calcium Oxalate Crystal Present Urine Bacteria 1+ (None Seen) Hyaline Casts 0-2 (0-2) /LPF Influenza Type A (PCR) NEGATIVE (Negative) Influenza Type B (PCR) NEGATIVE (Negative) RSV RNA Qual (PCR) NEGATIVE (Negative) SARS-CoV-2 RNA (RT-PCR) NEGATIVE (Negative) 03/17/24 Range/Units 23:52 WBC (4.8-10.8) X10*3/uL RBC (4.20-5.50) X10*6/uL Hgb (12.0-16.0) g/dl Hct (37.0-47.0) % MCV (80.0-98.0) fL MCH (27.0-33.0) pg MCHC (31.0-35.0) g/dl RDW (11.0-16.0) % Plt Count (160-400) X10*3/uL MPV (9.4-12.3) fL Immature Gran % (Auto) (0.0-0.4) % Neut % (Auto) (45-73) % Lymph % (Auto) (20-40) % Harnett % (Auto) (2-11) % Eos % (Auto) (0-4) % Baso % (Auto) (0-2) % Lymph # (Auto) (1.2-4.9) X10*3/uL H[place]ett # (Auto) (0.1-1.2) X10*3/uL Eos # (Auto) (0.0-0.4) X10*3/uL Baso # (Auto) (0.0-0.2) X10*3/uL Abs Immat Gran (auto) (0.00-0.03) X10*3/uL Absolute Neuts (auto) (2.0-8.3) x10*3/uL Absolute Nucleated RBC (0.0-0.012) X10*3/uL Nucleated RBC % (auto) (0.0-0.2) /100WBC VBG pH 7.41 (7.32-7.43) VBG pCO2 57 mmHg VBG pO2 103 mmHg VBG HCO3 37 H (22-26) mmol/L VBG O2 Saturation 96.0 % VBG Base Excess 10.6 mmol/L Sodium (135-145) mmol/L Potassium (3.3-5.1) mmol/L Chloride (96-108) mmol/L Carbon Dioxide (22-29) mmol/L Anion Gap (12-20) BUN (9-16) mg/dL Creatinine (0.5-1.4) mg/dL Estim Creat Clear Calc Estimated GFR Random Glucose (60-115) mg/dL Calcium (8.4-10.2) mg/dL Magnesium (1.6-2.6) mg/dL Total Bilirubin (0.0-1.0) mg/dL AST (5-31) U/L ALT (0-31) U/L Alkaline Phosphatase (39-117) U/L Troponin I High Sens (<3.5-17.0) ng/L B-Natriuretic Peptide (<100) pg/mL Total Protein (6.5-8.0) g/dL Albumin (3.5-5.0) g/dL Lipase (8-78) U/L Urine Color Urine Appearance Urine pH (5.0-9.0) Ur Specific Harwood (1.005-1.025) Urine Protein (Neg-Trace) mg/dL Urine Glucose (UA) (Negative) mg/dL Urine Ketones (Negative) mg/dL Urine Blood (Negative) Urine Nitrite (Negative) Ur Leukocyte Esterase (Negative) Urine RBC (0-2) /HPF Urine WBC (0-5) /HPF Ur Squamous Epith Cells (0-2) /HPF Calcium Oxalate Crystal Urine Bacteria (None Seen) Hyaline Casts (0-2) /LPF Influenza Type A (PCR) (Negative) Influenza Type B (PCR) (Negative) RSV RNA Qual (PCR) (Negative) SARS-CoV-2 RNA (RT-PCR) (Negative) Independent Interpretation I performed an independent interpretation of an: EKG Interpretation: EKG normal sinus rhythm at a ventricular rate of 93 beats per minute, ID interval 124, QT QTC 382/474, no ST elevation or depression. Radiology Impression Discussion of test interpretation with radiology: I have reviewed the radiologist's reading. Radiologist Impression: CT/CT abdomen pelvis wo IV con IMPRESSION: 1. No acute abnormality CT scan abdomen pelvis. 2. Slight increased size of a lower pole right renal lesion since prior study April 05, 2019. Fleischner guidelines were followed. Dictated By: Blue Pride MD XR/XR chest 2V IMPRESSION: Unremarkable examination. Dictated By: Blue Pride MD Chronic Conditions Patient?s care impacted by: Other (COPD exacerbation) Medications Administered Discontinued Medications Generic Name Dose Route Start Last Admin Trade Name Freq PRN Reason Stop Dose Admin Albuterol Sulfate 2.5 mg/ 0 mg 03/17/24 17:04 03/17/24 17:07 Albuterol/Ipratropium 3 ml INHALE 03/17/24 17:05 1 dose ONCE ONE Administration Albuterol Sulfate 2.5 mg/ 0 mg 03/17/24 19:57 03/17/24 20:02 Albuterol/Ipratropium 3 ml INHALE 03/17/24 19:58 5 dose ONCE ONE Administration Magnesium Sulfate 2 gm in 50 mls @ 25 mls/hr 03/17/24 18:20 03/17/24 21:01 Magnesium Sulfate/H2o IV 03/17/24 20:19 Infused ONCE ONE Infusion Methylprednisolone Sodium Succinate 125 mg 03/17/24 19:18 03/17/24 19:30 Methylprednisolone Sod Succ 125 Mg/2 Ml Vial IVPUSH 03/17/24 19:19 125 mg ONCE ONE Administration Critical Care Time Critical Care Time Critical Care Time: Yes Total Critical Care Time: 35 Attestation: I have personally provided critical care time exclusive of time spent on separately billable procedures. Time includes review of lab data, radiology results, discussion with consultants, and monitoring for potential decompensation. Intervention performed as documented. Discharge Plan Discharge Clinical Impression: Acute exacerbation of chronic obstructive pulmonary disease, COPD with hypoxia
--- NOTE | 2024-03-17 16:10 | ECG_ITS ---
Test Reason : abd pain Blood Pressure : / mmHG Vent. Rate : 093 BPM Atrial Rate : 093 BPM P-R Int : 124 ms QRS Dur : 082 ms QT Int : 382 ms P-R-T Axes : 069 079 077 degrees QTc Int : 474 ms Normal sinus rhythm Nonspecific T wave abnormality Abnormal ECG When compared with ECG of 28-FEB-2024 15:30, Nonspecific T wave abnormality no longer evident in Inferior leads Referred By: Gena Mcgarry Electronically Signed By:Allen Gant
[2024-03-17 16:57] LABS: MANUAL DIFF FLAG NO
[2024-03-17 17:01] LABS: Basophils Absolute Auto 0.1 X10*3/uL (0.0-0.2); Basophils Percent Auto 0.4 % (0-2); Eosinophils Absolute Auto 0.2 X10*3/uL (0.0-0.4); Eosinophils Percent Auto 1.2 % (0-4); Hematocrit 38.5 % (37.0-47.0); Hemoglobin 11.5 g/dl (12.0-16.0); Imm Gran Abs Auto 0.08 X10*3/uL (0.00-0.03); Imm Gran Pct Auto 0.6 % (0.0-0.4); Lymphocytes Absolute Auto 2.1 X10*3/uL (1.2-4.9); Lymphocytes Percent Auto 16.5 % (20-40); Mean Corpuscular HGB Conc 29.9 g/dl (31.0-35.0); Mean Corpuscular Hemoglobin 26.2 pg (27.0-33.0); Mean Corpuscular Volume 87.7 fL (80.0-98.0); Mean Platelet Volume 9.6 fL (9.4-12.3); Monocytes Absolute Auto 0.8 X10*3/uL (0.1-1.2); Monocytes Percent Auto 6.1 % (2-11); Neutrophils Absolute Auto 9.6 x10*3/uL (2.0-8.3); Neutrophils Percent Auto 75.2 % (45-73); Platelet Count 307 X10*3/uL (160-400); Red Blood Count 4.39 X10*6/uL (4.20-5.50); Red Cell Distribution Width 15.9 % (11.0-16.0); White Blood Count 12.8 X10*3/uL (4.8-10.8)
[2024-03-17] MEDS: Albuterol Sulfate 2.5 MG, Albuterol/Iprat 2.5/0.5MG 3 ML 3 ML INHALE ×2 (17:07→20:02)
[2024-03-17 17:12] LABS: Alanine Aminotransferase 10 U/L (0-31); Albumin Level 4.1 g/dL (3.5-5.0); Alkaline Phosphatase 101 U/L (39-117); Anion Gap 16 (12-20); Aspartate Amino Transferase 11 U/L (5-31); Bilirubin Total 0.2 mg/dL (0.0-1.0); Blood Urea Nitrogen 7 mg/dL (9-16); Calcium 10.1 mg/dL (8.4-10.2); Carbon Dioxide 33 mmol/L (22-29); Chloride 102 mmol/L (96-108); Creatinine Clr Calc Pharmacy 82.4; Estimated Glomerular Filt Rate > 60; Glucose Random 111 mg/dL (60-115); Lipase 13 U/L (8-78); Potassium 3.7 mmol/L (3.3-5.1); Sodium 147 mmol/L (135-145); Total Protein 7.4 g/dL (6.5-8.0)
[2024-03-17 17:39] LABS: Influenza A PCR NEGATIVE (Negative); Influenza B PCR NEGATIVE (Negative); Resp Syncy Virus RNA Qual PCR NEGATIVE (Negative); SARS COV2 PCR INHOUSE NEGATIVE (Negative)
[2024-03-17 17:55] LABS: B Type Natriuretic Peptide < 10 pg/mL (<100)
[2024-03-17 18:16] LABS: Appearance Urine Cloudy; Color Urine Dark Yellow; Glucose Urine UA Negative (Negative); Leukocyte Esterase Urine Negative (Negative); Nitrite Urine Negative (Negative); PH 5.5 (5.0-9.0); Specific Gravity - Urine >= 1.030 (1.005-1.025); UMIC TRIGGER UACC YES; Urine Blood Negative (Negative); Urine Ketones Trace mg/dL (Negative); Urine Protein 30 (1+) mg/dL (Neg-Trace)
[2024-03-17 18:16] LABS: Magnesium 1.2 mg/dL (1.6-2.6)
[2024-03-17 18:38] LABS: Bacteria Urine 1+ (None Seen); Calcium Oxalate Crystals Urine Present; Hyaline Casts Urine 0-2 /LPF (0-2); RBC Urine 0-2 /HPF (0-2); WBC Urine 0-5 /HPF (0-5)
[2024-03-17] MEDS: Magnesium Sulfate/H2O 2 GM/50 ML PIGGYBACK IV (19:13)
--- NOTE | 2024-03-17 19:14 | PC.NURSE ---
20gIV placed in the right wrist - medication administered per provider order.
[2024-03-17] MEDS: methylPREDNISolone Sod Succ 125 MG/2 ML VIAL IVPUSH (19:30)
--- NOTE | 2024-03-17 21:01 | PC.NURSE ---
pt requesting food, explained to pt, would have to wait for results of ct scan, pt resting quietly on stretcher
[2024-03-17 23:59] LABS: Venous Blood Gas Refer to POC result
[2024-03-18] VITALS (8 sets, daily range): BP systolic 128–169; BP diastolic 56–76; PULSE 83–96; RESP 16–22; TEMP 36.3–37.2; O2SAT 92–99
[2024-03-18 00:02] LABS: VBG Base Excess 10.6 mmol/L; VBG HCO3 37 mmol/L (22-26); VBG pCO2 57 mmHg; VBG pH 7.41 (7.32-7.43); VBG pO2 103 mmHg
--- NOTE | 2024-03-18 00:33 | P.HPHOSP_ITS ---
History of Present Illness Date of Service: 03/18/24 Chief Complaint: Dyspnea This is a 63-year-old female with pertinent history of chronic hypoxia due to COPD on 2 L supplemental oxygen, hypertension, hyperlipidemia, rkw-tcdpdqb-gyuspgrkp diabetes mellitus, gastroesophageal reflux disease who presents to the emergency department complaining of abdominal pain and dyspnea. Patient states her symptoms started 1 day prior to presentation. She has been having dyspnea which is worse with exertion. Also is having cough and wheezing. Cough is with whitish sputum production. No fevers or chills. Patient also complains of abdominal discomfort and has symptoms of gastroesophageal reflux disease. No vomiting, nausea or diarrhea. No chest discomfort, palpitations, changes in urinary or bowel habits. In the emergency department, CT abdomen/pelvis without any acute abnormality. Patient with wheezing despite multiple DuoNeb treatments and IV steroids. Review of Systems 2 Constitutional: Constitutional: Reports fatigue Cardiovascular: Cardiovascular: Reports dyspnea on exertion Respiratory: Respiratory: Reports cough, Reports dyspnea on exertion and Reports wheezing Gastrointestinal: Gastrointestinal: Reports no additional gastrointestinal complaints Genitourinary: Genitourinary: Reports no additional female genitourinary complaints Endocrine: Endocrine: Reports fatigue Allergic/Immunologic: Allergic/Immunologic: Reports wheezing [facility] Medical History Chronic lung disease COPD (chronic obstructive pulmonary disease) Type 2 diabetes mellitus without complication, with no history of insulin use Mixed dyslipidemia Essential hypertension GERD (gastroesophageal reflux disease) Gastroparesis Diastolic CHF with preserved left ventricular function, NYHA class 2 Chronic hypercapnic respiratory failure Type 2 diabetes mellitus with other diabetic kidney complication Type 2 diabetes mellitus without complication, with no history of insulin use Smoker unmotivated to quit Postlaminectomy syndrome of cervical region Seasonal allergic rhinitis Degenerative disc disease, cervical Postmenopause Dyslipidemia Family History Mother Diabetes Sister Diabetes Mental health disorder Brother Diabetes Father HTN (hypertension) Surgical History H/O cervical discectomy History of esophagogastroduodenoscopy (EGD) Hx of colonoscopy Social History Household Members: Other Housing: Other Housing Other:: Mobile Home Do you presently have visiting nurse or other home services: No Alcohol intake: former Comment: Commode/ Hi Flow O2 Patient Tobacco Use Status: Current everyday Tobacco user Tobacco use type: Cigarette Cigarette Packs Per Day: 1 Cigarettes Per Day: 20 Years Smoked: 50 Smoked in Last 30 Days: Yes e-Cigarette/Vaping Use: Never Used Second Hand Smoke Exposure: No Use of substances other than those prescribed or required for medical reasons: No Advance Directives: No Advance Directives Information Provided: No Advance Directives Date on File: 09/20/21 Do you have a plan to hurt others: No Plan service: No Current occupational status: unemployed Cognitive needs: No Hearing needs: No Vision needs: Yes Meds Allergies Allergy/AdvReac Type Severity Reaction Status Date / Time amoxicillin [AMOXICILLIN] Allergy Intermediate RASH Verified 03/17/24 15:14 Home Medications ?Medication ?Instructions ?Recorded ?Confirmed ?Last Taken ?Type aspirin 81 mg tablet,delayed 81 mg PO BEDTIME 01/10/21 02/28/24 02/27/24 History release (Adult Low Dose Aspirin) umeclidinium 62.5 mcg/actuation 1 inh inhalation DAILY 03/31/21 02/28/24 02/27/24 History blister powder for inhalation albuterol sulfate 2.5 mg/3 mL 2.5 mg inhalation Q6H PRN wheezing 08/02/23 02/28/24 Unknown History (0.083 %) solution for nebulization fluticasone furoate 200 1 inh inhalation DAILY 08/25/23 02/28/24 02/27/24 History mcg/actuation blister powder for inhalation (Arnuity Ellipta) amitriptyline 25 mg tablet 50 mg PO BEDTIME 02/28/24 02/28/24 02/27/24 History linaclotide 145 mcg capsule 145 mcg PO DAILY 02/28/24 02/28/24 02/27/24 History (Linzess) metoclopramide HCl 10 mg tablet 10 mg PO TIDAC gastroparesis 02/28/24 02/28/24 02/27/24 History (Reglan) omeprazole 20 mg capsule,delayed 20 mg PO DAILY@0630 02/28/24 02/28/24 02/27/24 History release psyllium husk 0.52 gram capsule 1.04 g PO BID PRN Constipation 02/28/24 02/28/24 Unknown History (Fiber Laxative (psyllium husk)) Physical Exam 2 Vital Signs and Narrative: Vital Signs: Last Vital Signs Temp 99.2 F 03/17/24 20:00 Pulse 99 03/17/24 22:00 Resp 22 H 03/17/24 22:00 BP 142/41 H 03/17/24 22:00 Pulse Ox 88 L 03/17/24 23:20 O2 Del Method Nasal Cannula 03/17/24 23:20 O2 Flow Rate 2 03/17/24 23:20 Oxygen Flow Rate 2 03/17/24 15:13 BMI result Body Mass Index 27.9 Middle-aged female lying in bed in mild distress on supplemental oxygen Neck supple, no JVD Regular rate and rhythm, S1-S2 heard Bilateral wheezing without crackles Abdomen soft nontender, no guarding, no rigidity Patient is awake, alert and oriented to self, place, time and person ; no focal motor deficit Psych: Normal mood No pedal edema Results Labs 03/17/24 16:53 03/17/24 16:53 Labs: Laboratory Results - last 24 hr 03/17/24 03/17/24 03/17/24 16:53 16:56 18:06 MCV 87.7 MCH 26.2 L MCHC 29.9 L RDW 15.9 Plt Count 307 MPV 9.6 Immature Gran % (Auto) 0.6 H Neut % (Auto) 75.2 H Lymph % (Auto) 16.5 L [place] % (Auto) 6.1 Eos % (Auto) 1.2 Baso % (Auto) 0.4 Lymph # (Auto) 2.1 [place] # (Auto) 0.8 Eos # (Auto) 0.2 Baso # (Auto) 0.1 Abs Immat Gran (auto) 0.08 H Absolute Neuts (auto) 9.6 H Absolute Nucleated RBC 0.000 Nucleated RBC % (auto) 0.0 VBG pH VBG pCO2 VBG pO2 VBG HCO3 VBG O2 Saturation VBG Base Excess Anion Gap 16 Estim Creat Clear Calc 82.4 Estimated GFR > 60 Random Glucose 111 Calcium 10.1 Magnesium 1.2 L* Total Bilirubin 0.2 AST 11 ALT 10 Alkaline Phosphatase 101 Troponin I High Sens 3.0 D B-Natriuretic Peptide < 10 Total Protein 7.4 Albumin 4.1 Lipase 13 Urine Color Dark Yellow Urine Appearance Cloudy Urine pH 5.5 Ur Specific [place] >= 1.030 H Urine Protein 30 (1+) H Urine Glucose (UA) Negative Urine Ketones Trace Urine Blood Negative Urine Nitrite Negative Ur Leukocyte Esterase Negative Urine RBC 0-2 Urine WBC 0-5 Ur Squamous Epith Cells 11-20 Calcium Oxalate Crystal Present Urine Bacteria 1+ Hyaline Casts 0-2 Influenza Type A (PCR) NEGATIVE Influenza Type B (PCR) NEGATIVE RSV RNA Qual (PCR) NEGATIVE SARS-CoV-2 RNA (RT-PCR) NEGATIVE 03/17/24 23:52 MCV MCH MCHC RDW Plt Count MPV Immature Gran % (Auto) Neut % (Auto) Lymph % (Auto) [place] % (Auto) Eos % (Auto) Baso % (Auto) Lymph # (Auto) [place] # (Auto) Eos # (Auto) Baso # (Auto) Abs Immat Gran (auto) Absolute Neuts (auto) Absolute Nucleated RBC Nucleated RBC % (auto) VBG pH 7.41 VBG pCO2 57 VBG pO2 103 VBG HCO3 37 H VBG O2 Saturation 96.0 VBG Base Excess 10.6 Anion Gap Estim Creat Clear Calc Estimated GFR Random Glucose Calcium Magnesium Total Bilirubin AST ALT Alkaline Phosphatase Troponin I High Sens B-Natriuretic Peptide Total Protein Albumin Lipase Urine Color Urine Appearance Urine pH Ur Specific [place] Urine Protein Urine Glucose (UA) Urine Ketones Urine Blood Urine Nitrite Ur Leukocyte Esterase Urine RBC Urine WBC Ur Squamous Epith Cells Calcium Oxalate Crystal Urine Bacteria Hyaline Casts Influenza Type A (PCR) Influenza Type B (PCR) RSV RNA Qual (PCR) SARS-CoV-2 RNA (RT-PCR) Imaging Radiologist's Impressions: Impressions Chest X-Ray 03/17/24 16:38 IMPRESSION: Unremarkable examination. Abdomen/Pelvis CT 03/17/24 20:07 IMPRESSION: 1. No acute abnormality CT scan abdomen pelvis. 2. Slight increased size of a lower pole right renal lesion since prior study April 05, 2019. Fleischner guidelines were followed. Assessment and Plan (1) Acute exacerbation of chronic obstructive pulmonary disease: Status: Acute Plan This is a 63-year-old female with pertinent history of chronic hypoxia due to COPD on 2 L supplemental oxygen, hypertension, hyperlipidemia, inj-jkhumye-ufolhmyyh diabetes mellitus, gastroesophageal reflux disease who presents to the emergency department complaining of abdominal pain and dyspnea. #. Acute exacerbation of COPD with chronic hypoxia: Will admit patient and initiate IV steroids. Scheduled and p.r.n. DuoNebs. Continue home inhaler. Initiating azithromycin for pleiotropic effects #. Tachypnea and tachycardia due to above: No sepsis #. Reactive leukocytosis #. Hypomagnesemia: Repleted #. Zzn-hrfedsp-gbksmvzeb diabetes mellitus: Initiating Accu-Cheks with sliding scale insulin #. Mixed hyperlipidemia: On statin #. Gastroesophageal reflux disease: On PPI #. Hypertension: Continue home antihypertensives #. Mood disorder: Continue home mood stabilizers Med rec pending DVT prophylaxis: Lovenox Full code Quality Stroke Does the patient have a stroke diagnosis?: No VTE Prior VTE?: No VTE Risk Level:: Medical - moderate - high VTE Device Contraindication: Treatment Not Indicated VTE Drug Contraindication: N/A - Med Ordered
[2024-03-18] MEDS: Azithromycin 500 MG in 0.9 % Sodium Chloride 250 ML 125 MG IV ×2 (02:29→23:33)
[2024-03-18] MEDS: Magnesium Hydrox/Alum Hydrox 30 ML ORAL.SUSP PO (02:30)
[2024-03-18 05:49] LABS: Basophils Percent Auto 0.2 % (0-2); Hematocrit 36.1 % (37.0-47.0); Imm Gran Abs Auto 0.08 X10*3/uL (0.00-0.03); Imm Gran Pct Auto 0.6 % (0.0-0.4); Lymphocytes Absolute Auto 0.6 X10*3/uL (1.2-4.9); Lymphocytes Percent Auto 4.2 % (20-40); MANUAL DIFF FLAG SCAN; Mean Corpuscular HGB Conc 30.5 g/dl (31.0-35.0); Mean Corpuscular Hemoglobin 26.4 pg (27.0-33.0); Mean Corpuscular Volume 86.8 fL (80.0-98.0); Mean Platelet Volume 9.8 fL (9.4-12.3); Monocytes Absolute Auto 0.1 X10*3/uL (0.1-1.2); Neutrophils Absolute Auto 12.6 x10*3/uL (2.0-8.3); Platelet Count 317 X10*3/uL (160-400); Red Blood Count 4.16 X10*6/uL (4.20-5.50); Red Cell Distribution Width 15.9 % (11.0-16.0); SCAN SMEAR FLAG 1; White Blood Count 13.4 X10*3/uL (4.8-10.8)
[2024-03-18 06:09] LABS: SLIDE REVIEW VERIFIED
[2024-03-18 06:10] LABS: Anion Gap 15 (12-20); Blood Urea Nitrogen 8 mg/dL (9-16); Carbon Dioxide 32 mmol/L (22-29); Chloride 102 mmol/L (96-108); Creatinine Clr Calc Pharmacy 72.6; Estimated Glomerular Filt Rate > 60; Glucose Random 237 mg/dL (60-115); Potassium 3.6 mmol/L (3.3-5.1); Sodium 145 mmol/L (135-145)
--- NOTE | 2024-03-18 06:26 | PC.NURSE ---
pt came from home, with c/o of increasing sob. Pt uses home O2/2L/NC, pt has desat to 86-88%on 2L while in the ER. Pt has had multiple breathing tx, solumedro, 500mg Azithromax IV, and Mag 2gms IV for a leverl o 1.2. Pt is up to BSC, with little assist, but she gets short of breathe, with exertion. Pt is AC/HS POC, VSS. Pt was a hard stick, and muliptle IV attempts. Pt has a 22g in L upper arm, new this AM. Pt has resting queitly throughout the night VSS, pt is on O2/2L/NC, and remains 92-94%, continues to have non productive cough
[2024-03-18 07:26] LABS: Glucose, Whole Blood 165 mg/dL (60-115)
[2024-03-18] MEDS: Insulin Lispro 100 UNIT/ML 3 ML VIAL SUBCUT ×4 (07:32→20:18)
[2024-03-18] MEDS: 0.9 % Sodium Chloride Flush 3 ML SYRINGE IVFLUSH ×3 (07:32→23:33)
[2024-03-18] MEDS: Albuterol/Iprat 2.5/0.5MG 3 ML AMPUL.NEB INHALE ×2 (08:18→11:39)
--- NOTE | 2024-03-18 08:28 | PC.NURSE ---
Pharmacy called, Solu-Medrol unavailable. Awaiting Pharmacy at this time.
[2024-03-18] MEDS: ondansetron HCL 4 MG/2 ML VIAL IVPUSH (09:45)
[2024-03-18] MEDS: Enoxaparin Sodium 40 MG/0.4 ML SYRINGE SUBCUT (09:46)
[2024-03-18] MEDS: Famotidine 20 MG TABLET PO (09:46)
[2024-03-18] MEDS: methylPREDNISolone Sod Succ 125 MG/2 ML VIAL 60 MG IVPUSH ×3 (09:46→19:28)
--- NOTE | 2024-03-18 10:29 | PHA.MEDREC ---
Addendum entered by Galina Adams RPh 03/18/24 11:05: marika has reviewed med rec done by wilian Original Note: Pharmacy Consult ? Medication Reconciliation Pharmacy has completed the medication reconciliation. Spoke with patient to confirm medications. She confirmed her inhalers and uses them once daily, they were last picked up in November for a 30 DS. She is no longer taking amitriptyline and stopped about a month ago. She confirmed that she does not use the albuterol inhaler but does use the nebulizer solution. She took her medications last night.
--- NOTE | 2024-03-18 10:46 | PM.EVENT ---
Event Note Date of Service: 03/18/24 Event Note: Chart reviewed patient examined. Agree with assessment and plan as per night float. Continue current therapies adjust as clinically indicated Time Spent With Patient Time: Total time managing care of this patient today ____ minutes.
[2024-03-18 11:38] LABS: Glucose, Whole Blood 152 mg/dL (60-115)
[2024-03-18] MEDS: Losartan Potassium 50 MG TABLET PO (11:47)
[2024-03-18] MEDS: Metoclopramide HCl 10 MG TABLET PO ×2 (11:47→16:48)
[2024-03-18] MEDS: amLODIPine Besylate 5 MG TABLET PO (11:47)
[2024-03-18] MEDS: Gabapentin 400 MG CAPSULE 800 MG PO ×2 (15:03→19:29)
[2024-03-18] MEDS: Baclofen 10 MG TABLET PO ×2 (15:03→19:29)
[2024-03-18 16:04] LABS: Glucose, Whole Blood 205 mg/dL (60-115)
[2024-03-18] MEDS: Aspirin Enteric Coated 81 MG TABLET.DR PO (19:29)
[2024-03-18] MEDS: metFORMIN HCl 1,000 MG TABLET 1000 MG PO (19:29)
[2024-03-18 20:11] LABS: Glucose, Whole Blood 378 mg/dL (60-115)
--- NOTE | 2024-03-18 20:17 | PC.NURSE ---
lan Silva md notified and instructed to cover per sliding scale, no additional insulin
[2024-03-18] MEDS: Nicotine 14 MG PATCH.TD24 TRANSDERMA (20:51)
[2024-03-19] VITALS (8 sets, daily range): BP systolic 143–158; BP diastolic 66–74; PULSE 81–100; RESP 18–20; TEMP 36.3–36.6; O2SAT 92–98
[2024-03-19] MEDS: methylPREDNISolone Sod Succ 125 MG/2 ML VIAL 60 MG IVPUSH ×4 (03:28→21:38)
[2024-03-19] MEDS: Omeprazole 20 MG CAPSULE.DR PO (06:05)
[2024-03-19 06:57] LABS: Basophils Percent Auto 0.2 % (0-2); Hematocrit 36.5 % (37.0-47.0); Hemoglobin 10.8 g/dl (12.0-16.0); Imm Gran Abs Auto 0.15 X10*3/uL (0.00-0.03); Imm Gran Pct Auto 0.9 % (0.0-0.4); Lymphocytes Absolute Auto 0.9 X10*3/uL (1.2-4.9); Lymphocytes Percent Auto 5.4 % (20-40); MANUAL DIFF FLAG SCAN; Mean Corpuscular HGB Conc 29.6 g/dl (31.0-35.0); Mean Corpuscular Hemoglobin 25.8 pg (27.0-33.0); Mean Corpuscular Volume 87.1 fL (80.0-98.0); Mean Platelet Volume 10.2 fL (9.4-12.3); Monocytes Absolute Auto 0.5 X10*3/uL (0.1-1.2); Monocytes Percent Auto 2.7 % (2-11); Neutrophils Absolute Auto 15.2 x10*3/uL (2.0-8.3); Neutrophils Percent Auto 90.8 % (45-73); Platelet Count 360 X10*3/uL (160-400); Red Blood Count 4.19 X10*6/uL (4.20-5.50); Red Cell Distribution Width 15.7 % (11.0-16.0); SCAN SMEAR FLAG 1; White Blood Count 16.7 X10*3/uL (4.8-10.8)
[2024-03-19 07:01] LABS: Alanine Aminotransferase 12 U/L (0-31); Albumin Level 3.9 g/dL (3.5-5.0); Alkaline Phosphatase 85 U/L (39-117); Anion Gap 14 (12-20); Aspartate Amino Transferase 9 U/L (5-31); Bilirubin Total 0.1 mg/dL (0.0-1.0); Blood Urea Nitrogen 12 mg/dL (9-16); Calcium 10.3 mg/dL (8.4-10.2); Carbon Dioxide 33 mmol/L (22-29); Chloride 100 mmol/L (96-108); Creatinine Clr Calc Pharmacy 77.9; Estimated Glomerular Filt Rate > 60; Glucose Fasting 184 mg/dL (60-99); Sodium 143 mmol/L (135-145); Total Protein 6.8 g/dL (6.5-8.0)
[2024-03-19 07:58] LABS: Glucose, Whole Blood 172 mg/dL (60-115)
[2024-03-19 07:59] LABS: SLIDE REVIEW VERIFIED
[2024-03-19] MEDS: Enoxaparin Sodium 40 MG/0.4 ML SYRINGE SUBCUT (08:22)
[2024-03-19] MEDS: Nicotine 14 MG PATCH.TD24 TRANSDERMA (08:22)
[2024-03-19] MEDS: 0.9 % Sodium Chloride Flush 3 ML SYRINGE IVFLUSH ×3 (08:23→21:52)
[2024-03-19] MEDS: Gabapentin 400 MG CAPSULE 800 MG PO ×3 (08:23→21:38)
[2024-03-19] MEDS: SITagliptin Phosphate 100 MG TABLET PO (08:23)
[2024-03-19] MEDS: Insulin Lispro 100 UNIT/ML 3 ML VIAL SUBCUT ×4 (08:23→21:38)
[2024-03-19] MEDS: metFORMIN HCl 1,000 MG TABLET 1000 MG PO ×2 (08:24→21:37)
[2024-03-19] MEDS: Cholecalciferol (Vitamin D3) 25 MCG TABLET 50 MCG PO (08:24)
[2024-03-19] MEDS: Famotidine 20 MG TABLET PO (08:24)
[2024-03-19] MEDS: Losartan Potassium 50 MG TABLET PO (08:24)
[2024-03-19] MEDS: Baclofen 10 MG TABLET PO ×3 (08:24→21:38)
[2024-03-19] MEDS: Metoclopramide HCl 10 MG TABLET PO ×3 (08:24→16:32)
[2024-03-19] MEDS: amLODIPine Besylate 5 MG TABLET PO (08:24)
[2024-03-19] MEDS: Albuterol/Iprat 2.5/0.5MG 3 ML AMPUL.NEB INHALE ×3 (08:44→19:13)
[2024-03-19] MEDS: Tiotropium Bromide 2.5 mcg 1 PUFF/2.5 MCG MIST.INHAL 2 PUFF INHALE (08:44)
[2024-03-19 11:42] LABS: Glucose, Whole Blood 221 mg/dL (60-115)
--- NOTE | 2024-03-19 12:43 | MHC.CM.PN ---
Addendum entered by Laly Minor RN 03/19/24 12:45: [facility] delivered. Original Note: Patient lives in a mobile home w/ S.O. No AD's. Independent w/ most ADL's. 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 [employer] provides home O2 (2L) and CPAP. Also has a shower chair and grab bars in bathroom. PCP Magalie Nicolas MD HCP on file and verified. Has used [facility] in the past and would be open to services if recommended. DP: Goal is home resume POLYMER SCIENTIST services. S.O. may be able to transport, patient reports he is fixing their car today. May need Lyft. CM will continue to follow.
--- NOTE | 2024-03-19 13:39 | HO.PM.IMPN ---
Subjective Subjective Date of Service: 03/19/24 Interval History: No acute events overnight. Breathing slowly improving per patient Review of Systems Denies chest pain Admits shortness of breath with minimal exertion Denies nausea vomiting diarrhea Denies fever chills Physical Exam Vital Signs: Vital Signs: Last Vital Signs Temp 97.4 F 03/19/24 07:23 Pulse 81 03/19/24 08:44 Resp 18 03/19/24 08:44 BP 143/69 H 03/19/24 08:24 Pulse Ox 92 03/19/24 07:23 O2 Del Method Nasal Cannula 03/19/24 07:23 O2 Flow Rate 3.0 03/19/24 07:23 Oxygen Flow Rate 2 03/17/24 15:13 BMI result Body Mass Index 27.9 Const: Other: Awake alert able to speak in short sentences Resp: Other: Diminished throughout with scattered expiratory wheezes right greater than left Cardio: Other: No S4; positive S1-S2; no S3 murmurs rubs and gallops GI: Other: Soft nontender nondistended normoactive bowel sounds Extrem: Other: No edema bilaterally Objective Data Active Medications Acetaminophen (Acetaminophen 325 Mg Tablet) 650 mg PO Q6H PRN PRN Reason: Pain, Mild (Pain Scale 1-3), fever or headache Albuterol Sulfate (Albuterol Sulfate (0.083%) 2.5 Mg/3 Ml Vial.Neb) 2.5 mg INHALE RQ6H PRN PRN Reason: wheezing Albuterol/Ipratropium (Albuterol/Iprat 2.5/0.5mg 3 Ml Ampul.Neb) 3 ml INHALE RQ4H WHILE AWAKE [facility] Last Admin: 03/19/24 13:24 Dose: Not Given Documented By: MARISOL Non-Admin Reason: rt unavailable Albuterol/Ipratropium (Albuterol/Iprat 2.5/0.5mg 3 Ml Ampul.Neb) 3 ml INHALE Q4H PRN PRN Reason: Wheezing Amlodipine Besylate (Amlodipine Besylate 5 Mg Tablet) 5 mg PO DAILY [facility]; Protocol Last Admin: 03/19/24 08:24 Dose: 5 mg Documented By: NICKY Aspirin (Aspirin Enteric Coated 81 Mg Tablet.) 81 mg PO BEDTIME [facility] Last Admin: 03/18/24 19:29 Dose: 81 mg Documented By: OUMAR Baclofen (Baclofen 10 Mg Tablet) 10 mg PO TID [facility] Last Admin: 03/19/24 08:24 Dose: 10 mg Documented By: NICKY Calcium Carbonate (Calcium Carbonate 750 Mg Tab.Chew) 750 mg PO Q4H PRN PRN Reason: Heartburn Enoxaparin Sodium (Enoxaparin Sodium 40 Mg/0.4 Ml Syringe) 40 mg SUBCUT Q24H [facility] Last Admin: 03/19/24 08:22 Dose: 40 mg Documented By: NICKY Famotidine (Famotidine 20 Mg Tablet) 20 mg PO DAILY [facility] Last Admin: 03/19/24 08:24 Dose: 20 mg Documented By: NICKY Gabapentin (Gabapentin 400 Mg Capsule) 800 mg PO TID [facility] Last Admin: 03/19/24 08:23 Dose: 800 mg Documented By: NICKY Glucose (Glucose Gel 15 Gm Gel..Gram.) 15 gm PO Q15M PRN; Protocol PRN Reason: per Hypoglycemia Standing Ord. Dextrose (D10) 250 mls @ 750 mls/hr IV Q15M PRN; Protocol PRN Reason: per Hypoglycemia Standing Ord. Azithromycin 500 mg/ Sodium (Chloride) 250 mls @ 125 mls/hr IV Q24H [facility] Last Infusion: 03/19/24 01:33 Dose: Infused Documented By: ROHAN Insulin Human Lispro (Insulin Lispro 100 Unit/Ml 3 Ml Vial) 0 unit SUBCUT QIDACHS [facility]; Protocol Last Admin: 03/19/24 11:50 Dose: 4 unit Documented By: NICKY Losartan Potassium (Losartan Potassium 50 Mg Tablet) 50 mg PO DAILY [facility]; Protocol Last Admin: 03/19/24 08:24 Dose: 50 mg Documented By: NICKY Magnesium Hydroxide (Milk Of Magnesia 30 Ml Oral.Susp) 30 ml PO DAILY PRN PRN Reason: Constipation Melatonin (Melatonin 3 Mg Tablet) 6 mg PO BEDTIME PRN PRN Reason: Insomnia Metformin HCl (Metformin Hcl 1,000 Mg Tablet) 1,000 mg PO BID [facility] Last Admin: 03/19/24 08:24 Dose: 1,000 mg Documented By: NICKY Methylprednisolone Sodium Succinate (Methylprednisolone Sod Succ 125 Mg/2 Ml Vial) 60 mg IVPUSH Q6H [facility] Last Admin: 03/19/24 08:23 Dose: 60 mg Documented By: NICKY Metoclopramide HCl (Metoclopramide Hcl 10 Mg Tablet) 10 mg PO TIDAC [facility] Last Admin: 03/19/24 11:50 Dose: 10 mg Documented By: NICKY Nicotine (Nicotine 14 Mg Patch.Td24) 14 mg TRANSDERMA DAILY [facility] Last Admin: 03/19/24 08:22 Dose: 14 mg Documented By: NICKY Non-Formulary Medication (Linaclotide [Linzess]) 145 mcg PO DAILY [facility] Omeprazole (Omeprazole 20 Mg Capsule.Dr) 20 mg PO DAILY@0630 [facility] Last Admin: 03/19/24 06:05 Dose: 20 mg Documented By: ROHAN Ondansetron HCl (Ondansetron Hcl 4 Mg/2 Ml Vial) 4 mg IVPUSH Q8H PRN PRN Reason: Nausea and Vomiting Last Admin: 03/18/24 09:45 Dose: 4 mg Documented By: NICKY Sitagliptin Phosphate (Sitagliptin Phosphate 100 Mg Tablet) 100 mg PO DAILY [facility] Last Admin: 03/19/24 08:23 Dose: 100 mg Documented By: NICKY Sodium Chloride (0.9 % Sodium Chloride Flush 3 Ml Syringe) 3 ml IVFLUSH QSHIFT [facility] Last Admin: 03/19/24 08:23 Dose: 3 ml Documented By: NICKY Tiotropium [place] (Tiotropium [place] 2.5 Mcg 1 Puff/2.5 Mcg Mist.Inhal) 2 puff INHALE RDAILY [facility] Last Admin: 03/19/24 08:44 Dose: 2 puff Documented By: KATELIN Vitamin D (Cholecalciferol (Vitamin D3) 25 Mcg Tablet) 50 mcg PO DAILY [facility] Last Admin: 03/19/24 08:24 Dose: 50 mcg Documented By: NICKY Labs 03/19/24 06:01 03/19/24 06:01 Labs: Laboratory Results - last 24 hr 03/18/24 03/18/24 03/19/24 16:00 20:06 06:01 MCV 87.1 MCH 25.8 L MCHC 29.6 L RDW 15.7 Plt Count 360 MPV 10.2 Immature Gran % (Auto) 0.9 H Neut % (Auto) 90.8 H Lymph % (Auto) 5.4 L [place] % (Auto) 2.7 Eos % (Auto) 0.0 Baso % (Auto) 0.2 Lymph # (Auto) 0.9 L [place] # (Auto) 0.5 Eos # (Auto) 0.0 Baso # (Auto) 0.0 Abs Immat Gran (auto) 0.15 H Absolute Neuts (auto) 15.2 H Absolute Nucleated RBC 0.000 Nucleated RBC % (auto) 0.0 Smear Tech's Comments VERIFIED Anion Gap 14 Estim Creat Clear Calc 77.9 Estimated GFR > 60 POC Glucose 205 H 378 H* Fasting Glucose 184 H Calcium 10.3 H Total Bilirubin 0.1 AST 9 ALT 12 Alkaline Phosphatase 85 Total Protein 6.8 Albumin 3.9 03/19/24 03/19/24 07:31 11:27 MCV MCH MCHC RDW Plt Count MPV Immature Gran % (Auto) Neut % (Auto) Lymph % (Auto) [place] % (Auto) Eos % (Auto) Baso % (Auto) Lymph # (Auto) [place] # (Auto) Eos # (Auto) Baso # (Auto) Abs Immat Gran (auto) Absolute Neuts (auto) Absolute Nucleated RBC Nucleated RBC % (auto) Smear Tech's Comments Anion Gap Estim Creat Clear Calc Estimated GFR POC Glucose 172 H 221 H Fasting Glucose Calcium Total Bilirubin AST ALT Alkaline Phosphatase Total Protein Albumin Assessment and Plan (1) Acute exacerbation of chronic obstructive pulmonary disease: Status: Acute (2) Type 2 diabetes mellitus without complication, with no history of insulin use: Status: Acute Plan This is a 63-year-old female with pertinent history of chronic hypoxia due to COPD on 2 L supplemental oxygen, hypertension, hyperlipidemia, wmt-wjxnykf-smptlfufd diabetes mellitus, gastroesophageal reflux disease who presents to the emergency department complaining of abdominal pain and dyspnea. 1.Acute exacerbation of COPD in backdrop of chronic hypoxia -azithromycin (2) -aggressive DuoNeb treatment -pulse dose steroids -titrate oxygen to home baseline 2.Ogs-kklonfh-ygkgofqxp diabetes mellitus -acceptable control on current therapies -lispro correctional scale -adjust as indicated 3.Hypertension -acceptable control on current therapies -adjust as indicated Lovenox Full code Requires ongoing hospitalization for IV steroids to treat acute exacerbation of COPD Quality Stroke Does the patient have a stroke diagnosis?: No VTE Prior VTE?: No VTE Risk Level:: Medical - moderate - high VTE Device Contraindication: Treatment Not Indicated VTE Drug Contraindication: N/A - Med Ordered
[2024-03-19 16:24] LABS: Glucose, Whole Blood 168 mg/dL (60-115)
[2024-03-19 20:43] LABS: Glucose, Whole Blood 296 mg/dL (60-115)
[2024-03-19] MEDS: Aspirin Enteric Coated 81 MG TABLET.DR PO (21:38)
[2024-03-19] MEDS: Azithromycin 500 MG in 0.9 % Sodium Chloride 250 ML 125 MG IV (23:00)
[2024-03-20 03:54] VITALS: BP 138/60; PULSE 82; RESP 18; TEMP 36.1; O2SAT 95
[2024-03-20] MEDS: methylPREDNISolone Sod Succ 125 MG/2 ML VIAL 60 MG IVPUSH ×2 (04:58→08:16)
[2024-03-20] MEDS: Omeprazole 20 MG CAPSULE.DR PO (05:03)
[2024-03-20 06:26] LABS: Alanine Aminotransferase 13 U/L (0-31); Albumin Level 3.7 g/dL (3.5-5.0); Alkaline Phosphatase 72 U/L (39-117); Anion Gap 14 (12-20); Aspartate Amino Transferase 8 U/L (5-31); Bilirubin Total 0.1 mg/dL (0.0-1.0); Blood Urea Nitrogen 17 mg/dL (9-16); Carbon Dioxide 32 mmol/L (22-29); Chloride 99 mmol/L (96-108); Creatinine Clr Calc Pharmacy 75.1; Estimated Glomerular Filt Rate > 60; Glucose Fasting 203 mg/dL (60-99); Sodium 141 mmol/L (135-145); Total Protein 6.3 g/dL (6.5-8.0)
[2024-03-20 07:01] LABS: Basophils Percent Auto 0.2 % (0-2); Hematocrit 35.2 % (37.0-47.0); Hemoglobin 10.5 g/dl (12.0-16.0); Imm Gran Abs Auto 0.17 X10*3/uL (0.00-0.03); Imm Gran Pct Auto 1.1 % (0.0-0.4); Lymphocytes Absolute Auto 0.9 X10*3/uL (1.2-4.9); Lymphocytes Percent Auto 5.7 % (20-40); MANUAL DIFF FLAG SCAN; Mean Corpuscular HGB Conc 29.8 g/dl (31.0-35.0); Mean Corpuscular Hemoglobin 25.7 pg (27.0-33.0); Mean Corpuscular Volume 86.1 fL (80.0-98.0); Mean Platelet Volume 10.2 fL (9.4-12.3); Monocytes Absolute Auto 0.3 X10*3/uL (0.1-1.2); Monocytes Percent Auto 2.2 % (2-11); Neutrophils Absolute Auto 13.9 x10*3/uL (2.0-8.3); Neutrophils Percent Auto 90.8 % (45-73); Platelet Count 378 X10*3/uL (160-400); Red Blood Count 4.09 X10*6/uL (4.20-5.50); Red Cell Distribution Width 15.6 % (11.0-16.0); SCAN SMEAR FLAG 1; White Blood Count 15.3 X10*3/uL (4.8-10.8)
[2024-03-20 07:29] LABS: SLIDE REVIEW VERIFIED
[2024-03-20 07:44] VITALS: BP 132/60; PULSE 86; RESP 16; TEMP 36.5; O2SAT 92
[2024-03-20 07:51] LABS: Glucose, Whole Blood 200 mg/dL (60-115)
[2024-03-20] MEDS: Tiotropium Bromide 2.5 mcg 1 PUFF/2.5 MCG MIST.INHAL 2 PUFF INHALE (07:52)
[2024-03-20 07:53] VITALS: PULSE 84; RESP 16; O2SAT 100
[2024-03-20] MEDS: Albuterol/Iprat 2.5/0.5MG 3 ML AMPUL.NEB INHALE (07:53)
[2024-03-20] MEDS: metFORMIN HCl 1,000 MG TABLET 1000 MG PO (08:12)
[2024-03-20] MEDS: Gabapentin 400 MG CAPSULE 800 MG PO (08:12)
[2024-03-20] MEDS: Losartan Potassium 50 MG TABLET PO (08:12)
[2024-03-20] MEDS: Cholecalciferol (Vitamin D3) 25 MCG TABLET 50 MCG PO (08:12)
[2024-03-20] MEDS: Metoclopramide HCl 10 MG TABLET PO ×2 (08:12→11:50)
[2024-03-20] MEDS: SITagliptin Phosphate 100 MG TABLET PO (08:12)
[2024-03-20] MEDS: Baclofen 10 MG TABLET PO (08:13)
[2024-03-20] MEDS: Famotidine 20 MG TABLET PO (08:13)
[2024-03-20] MEDS: Nicotine 14 MG PATCH.TD24 TRANSDERMA (08:13)
[2024-03-20] MEDS: amLODIPine Besylate 5 MG TABLET PO (08:13)
[2024-03-20] MEDS: Enoxaparin Sodium 40 MG/0.4 ML SYRINGE SUBCUT (08:13)
[2024-03-20] MEDS: Insulin Lispro 100 UNIT/ML 3 ML VIAL SUBCUT (08:15)
[2024-03-20] MEDS: 0.9 % Sodium Chloride Flush 3 ML SYRINGE IVFLUSH (08:24)
--- NOTE | 2024-03-20 10:39 | MHC.CM.PN ---
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 She has arranged for a ride home.
--- NOTE | 2024-03-20 10:47 | P.DS_ITS ---
DS: Providers Provider Date of Service: 03/20/24 Date of admission: 03/18/24 00:30 Date of discharge: 03/20/24 Primary care physician: Magalie Nicolas MD DS: Diagnosis Discharge Diagnosis (1) Acute exacerbation of chronic obstructive pulmonary disease: Status: Acute (2) Type 2 diabetes mellitus without complication, with no history of insulin use: Status: Acute DS: Summary Hospital Course Hospital Course: 63-year-old female with pertinent history of chronic hypoxia due to COPD on 2 L supplemental oxygen, hypertension, hyperlipidemia, [id number] diabetes mellitus, gastroesophageal reflux disease who presents to the emergency department complaining of abdominal pain and dyspnea. Patient states her symptoms started 1 day prior to presentation. She has been having dyspnea which is worse with exertion. Also is having cough and wheezing. Cough is with whitish sputum production. No fevers or chills. Patient also complains of abdominal discomfort and has symptoms of gastroesophageal reflux disease. No vomiting, nausea or diarrhea. No chest discomfort, palpitations, changes in urinary or bowel habits. In the emergency department, CT abdomen/pelvis without any acute abnormality. Patient with wheezing despite multiple DuoNeb treatments and IV steroids. Hospital Course Patient admitted to general medical floor given aggressive DuoNeb therapy IV steroids and azithromycin x3 doses. Over the next 48 hours she improved to the point she was at her baseline O2 requirements. At this time she wishes to return home. She will be discharged on a course of doxycycline prednisone taper and is strongly advised not to smoke Time Attestation Discharge Coordination Time (in mins): 35 Quality: Safe Use of Opioids Does Pt have an Active Cancer Diagnosis on the Problem List?: No Quality: Stroke Does the patient have a stroke diagnosis?: No Physical Exam Vital Signs: Vital Signs: Last Vital Signs Temp 97.7 F 03/20/24 07:44 Pulse 84 03/20/24 07:53 Resp 16 03/20/24 07:53 BP 132/60 03/20/24 07:44 Pulse Ox 92 03/20/24 07:44 O2 Del Method Nasal Cannula 03/20/24 07:44 O2 Flow Rate 2 03/20/24 07:44 Oxygen Flow Rate 2 03/17/24 15:13 BMI result Body Mass Index 27.9 Const: Other: Awake alert able to speak in short sentences Resp: Other: Diminished throughout with scattered expiratory wheezes right greater than left Cardio: Other: No S4; positive S1-S2; no S3 murmurs rubs and gallops GI: Other: Soft nontender nondistended normoactive bowel sounds Extrem: Other: No edema bilaterally DS: Data Data Completed and Pending Labs on day of discharge: Laboratory Results - last 24 hr 03/19/24 03/19/24 03/19/24 11:27 16:10 20:29 WBC RBC Hgb Hct MCV MCH MCHC RDW Plt Count MPV Immature Gran % (Auto) Neut % (Auto) Lymph % (Auto) [place] % (Auto) Eos % (Auto) Baso % (Auto) Lymph # (Auto) [place] # (Auto) Eos # (Auto) Baso # (Auto) Abs Immat Gran (auto) Absolute Neuts (auto) Absolute Nucleated RBC Nucleated RBC % (auto) Smear Tech's Comments Sodium Potassium Chloride Carbon Dioxide Anion Gap BUN Creatinine Estim Creat Clear Calc Estimated GFR POC Glucose 221 H 168 H 296 H Fasting Glucose Calcium Total Bilirubin AST ALT Alkaline Phosphatase Total Protein Albumin 03/20/24 03/20/24 05:45 07:48 WBC 15.3 H RBC 4.09 L Hgb 10.5 L Hct 35.2 L MCV 86.1 MCH 25.7 L MCHC 29.8 L RDW 15.6 Plt Count 378 MPV 10.2 Immature Gran % (Auto) 1.1 H Neut % (Auto) 90.8 H Lymph % (Auto) 5.7 L [place] % (Auto) 2.2 Eos % (Auto) 0.0 Baso % (Auto) 0.2 Lymph # (Auto) 0.9 L [place] # (Auto) 0.3 Eos # (Auto) 0.0 Baso # (Auto) 0.0 Abs Immat Gran (auto) 0.17 H Absolute Neuts (auto) 13.9 H Absolute Nucleated RBC 0.000 Nucleated RBC % (auto) 0.0 Smear Tech's Comments VERIFIED Sodium 141 Potassium 4.0 Chloride 99 Carbon Dioxide 32 H Anion Gap 14 BUN 17 H Creatinine 0.57 Estim Creat Clear Calc 75.1 Estimated GFR > 60 POC Glucose 200 H Fasting Glucose 203 H Calcium 10.0 Total Bilirubin 0.1 AST 8 ALT 13 Alkaline Phosphatase 72 Total Protein 6.3 L Albumin 3.7 Discharge Plan Discharge Anticipated Discharge Date/Time: 03/20/24 10:43 Patient Disposition: Home Health Service Discharge Diagnosis: Acute exacerbation of COPD Referrals: Magalie Nicolas MD [Primary Care Provider] - 1 Week Discharge Medications: New doxycycline hyclate 100 mg tablet 100 mg PO BID Qty: 14 0RF prednisone 20 mg tablet See Rx Instructions .Route .COMPLEX Qty: 18 0RF Rx Instructions: 20 mg orally; 3 tabs daily for 3 days, 2 tabs daily for 3 days, 1 tab daily for 3 days Continued (DME) lancets [FreeStyle Lancets] 28 gauge misc See Rx Instructions .Route Qty: 100 5RF Rx Instructions: As directed twice a day AC (DME) FreeStyle Lite Strips Strip See Rx Instructions .Route Qty: 100 0RF Rx Instructions: check fasting blood sugar twice a day before meals (DME) FreeStyle Cristian 2 Sensor Kit See Rx Instructions .Route Qty: 6 3RF Rx Instructions: Test blood sugar 4 times per day (DME) FreeStyle Cristian 2 [place] Misc See Rx Instructions .Route Qty: 1 0RF Rx Instructions: test blood sugar 4 times per day losartan 50 mg tablet 50 mg PO DAILY Qty: 90 1RF Januvia 100 mg tablet 100 mg PO DAILY Qty: 90 1RF cholecalciferol (vitamin D3) 50 mcg (2,000 unit) capsule 50 mcg PO DAILY Qty: 90 1RF metformin 1,000 mg tablet 1,000 mg PO BID Qty: 180 3RF rosuvastatin 5 mg tablet 5 mg PO DAILY Qty: 90 1RF amlodipine 5 mg tablet 5 mg PO DAILY Qty: 90 0RF simethicone 180 mg capsule 180 mg PO QID Qty: 120 6RF gabapentin 800 mg tablet 800 mg PO TID 30 Days Qty: 90 6RF naproxen 500 mg tablet 500 mg PO BID PRN (Reason: for pain) Qty: 30 0RF albuterol sulfate 2.5 mg /3 mL (0.083 %) solution for nebulization 2.5 mg inhalation Q6H PRN (Reason: wheezing) omeprazole 20 mg capsule,delayed release(DR/EC) 20 mg PO DAILY@0630 psyllium husk [Fiber Laxative (psyllium husk)] 0.52 gram capsule 1.04 g PO BID Linzess 145 mcg capsule 145 mcg PO DAILY metoclopramide HCl [Reglan] 10 mg tablet 10 mg PO TIDAC umeclidinium 62.5 mcg/actuation blister with device 1 inh inhalation DAILY Rx Instructions: Encruse aspirin [Adult Low Dose Aspirin] 81 mg tablet,delayed release (DR/EC) 81 mg PO BEDTIME (DME) blood-glucose meter [FreeStyle Lite Meter] Kit See Rx Instructions .Route Qty: 1 0RF Rx Instructions: As directed twice a day before meals Arnuity Ellipta 200 mcg/actuation blister with device 1 inh inhalation DAILY baclofen 10 mg tablet 10 mg PO TID 30 Days Qty: 90 6RF Discharge Orders: Discharge Order (Routine); Ordered 03/20/24 Ordered By: Todd Shaffer Diet: Advance to usual diet Activity on Discharge: As tolerated Stand Alone Forms: Patient Portal Discharge page Print Language: Somali Care Plan Goals: Resume all pre-hospital medications and therapies Health Concerns: Complete course of doxycycline 100 mg twice daily along with prednisone taper as outlined Plan of Treatment: Follow up with your PCP next available appointment Assessment: See discharge summary
[2024-03-20 11:23] LABS: Glucose, Whole Blood 383 mg/dL (60-115)
--- NOTE | 2024-03-20 11:38 | PC.NURSE ---
Pt. blood sugar is 383 this afternoon, per protocal 10 units Insulin to be given, pt. refused, notified. Pt. is getting discharged now.
== END 2024-03-20 12:08 | disposition home health service (06) ==
LOC: HO.ED 16:07 → HO.EDOVER 03-18 00:37 → HO.S3 03-18 07:41
PROVIDERS: Physician Assistant Medical; Admitting Provider Student in an Organized Health Care Education/Training Program; Emergency Provider Emergency Medicine; PCP Internal Medicine; Visit Provider Hospitalist
DX: J44.1 Chronic obstructive pulmonary disease with (acute) exacerbation (principal); R09.02 Hypoxemia; E11.9 Type 2 diabetes mellitus without complications; R06.82 Tachypnea, not elsewhere classified; R00.0 Tachycardia, unspecified; E83.42 Hypomagnesemia; I11.0 Hypertensive heart disease with heart failure; I50.9 Heart failure, unspecified; R35.0 Frequency of micturition; K21.9 Gastro-esophageal reflux disease without esophagitis; E78.5 Hyperlipidemia, unspecified; R10.9 Unspecified abdominal pain; R06.2 Wheezing; R11.0 Nausea; D72.829 Elevated white blood cell count, unspecified; F39 Unspecified mood [affective] disorder; Z79.899 Other long term (current) drug therapy; Z99.81 Dependence on supplemental oxygen; Z03.818 Encounter for observation for suspected exposure to other biological agents ruled out
CPT/HCPCS: 0241U; 36415; 71046; 74176; 80048; 80053; 81001; 82803; 82947; 83690; 83735; 83880; 84484; 85025; 93005; 94640; 96365; 96366; 96367; 96372; 96375; 96376; 99221; 99285; J0456; J1650; J2405; J2919; J3475

== ENCOUNTER → 2024-03-17 16:10 | Outpatient (BNV) | payer OTHER, SELFPAY | PROVIDERS: Admitting Provider Student in an Organized Health Care Education/Training Program; Emergency Provider Emergency Medicine; PCP Internal Medicine; Visit Provider Internal Medicine Cardiovascular Disease | DX: R94.31 Abnormal electrocardiogram [ECG] [EKG] (principal) | CPT/HCPCS: 93010 ==

== ENCOUNTER → 2024-03-18 00:30 | Outpatient (BNV) | payer OTHER, SELFPAY | PROVIDERS: Admitting Provider Student in an Organized Health Care Education/Training Program; Emergency Provider Emergency Medicine; PCP Internal Medicine; Visit Provider Student in an Organized Health Care Education/Training Program | DX: J44.1 Chronic obstructive pulmonary disease with (acute) exacerbation (principal) | CPT/HCPCS: 99222; 99232; 99239; 99499 ==

== ENCOUNTER 2024-04-03 09:13 | Outpatient (AMB) | payer OTHER, SELFPAY ==
--- NOTE | 2024-04-03 09:33 | MHC.OFFWIV ---
Intake Vital Signs 04/03/24 09:35 Height 4 ft 9 in Weight 118 lb BMI 25.5 BP 132/66 Blood Pressure Location Lt brachial Position Sitting Pulse 103 H Pulse Source Pulse Oximeter Temp 98.4 F Temp Source Oral Pulse Oximetry (%) 95 Oxygen Delivery Method Nasal Cannula Intake Visit Reasons: EP- Feeling nauseous, stomach is hurting Intake Note: Pt is here today c/o feeling nauseous and stomach aches Patient Tobacco Use Status: Current everyday Tobacco user Allergies amoxicillin [AMOXICILLIN] Allergy (Intermediate, Verified 04/03/24 09:37) RASH HPI EP- Feeling nauseous, stomach is hurting HPI Details This note is constructed using voice recognition software. While every effort has been made to ensure accuracy, treasury representative errors may have been included. The patient is a 63 year old female who presents to the clinic today with mild nausea and generalized abdominal discomfort long-term in nature and intermittent. She notes that she follows a GI specialist, and is taking Linzess due to chronic constipation issues. She reports she has been moving her bowels, but is unsure if she moved her bowels yesterday, and did not move them today. She notes that the bowels have been impacted slightly since recently starting medication baclofen. She denies any acid reflux symptoms, any blood coming from her rectum, or any vomiting. She denies fever and chills. She has not called her specialist for her current symptoms. That is mild in nature. She has not to resolve this. She does note that she was seen in the emergency room a couple of weeks ago for similar, however they did not in treating anything for the abdomen as she also had breathing issues at the time. PENDING SALE TO [facility] Medical History (Updated 03/28/24 @ 00:02 by Kim Singh) Chronic lung disease COPD (chronic obstructive pulmonary disease) Type 2 diabetes mellitus without complication, with no history of insulin use Mixed dyslipidemia Essential hypertension GERD (gastroesophageal reflux disease) Gastroparesis Diastolic CHF with preserved left ventricular function, NYHA class 2 Chronic hypercapnic respiratory failure Type 2 diabetes mellitus with other diabetic kidney complication Type 2 diabetes mellitus without complication, with no history of insulin use Smoker unmotivated to quit Postlaminectomy syndrome of cervical region Seasonal allergic rhinitis Degenerative disc disease, cervical Postmenopause Dyslipidemia Surgical History H/O cervical discectomy History of esophagogastroduodenoscopy (EGD) Hx of colonoscopy Family History Mother Diabetes Sister Diabetes Mental health disorder Brother Diabetes Father HTN (hypertension) Social History Household Members: Significant Other Housing: Other Housing Other:: mobile home Do you presently have visiting nurse or other home services: Yes ([employer] 1xweek) Alcohol intake: former Comment: Commode/ Hi Flow O2 Patient Tobacco Use Status: Current everyday Tobacco user Tobacco use type: Cigarette Cigarette Packs Per Day: 1 Cigarettes Per Day: 20.0 Years Smoked: 50 e-Cigarette/Vaping Use: Never Used Second Hand Smoke Exposure: No Advance Directives Date on File: 09/20/21 service: No Current occupational status: unemployed Cognitive needs: No Hearing needs: No Vision needs: Yes Review of Systems Const All systems reviewed & are unremarkable except as noted in HPI and below Physical Exam Vital Signs: Last Vital Signs Temp 98.4 F 04/03/24 09:35 Pulse 103 H 04/03/24 09:35 BP 132/66 04/03/24 09:35 Pulse Ox 95 04/03/24 09:35 Oxygen Delivery Method Nasal Cannula 04/03/24 09:35 BMI result Body Mass Index 25.5 Const General: cooperative, healthy appearing, comfortable, no acute distress and alert Orientation/consciousness: patient oriented x3 Limitations: no limitations Resp Effort & Inspection: normal respiratory effort and able to speak in complete sentences Auscultation: clear to auscultation bilaterally Cardio Jugular venous distension: no JVD Palpation: normal PMI Rate: regular rate Heart sounds: S1 normal heart sound present, S2 normal heart sound present, no click, no gallops, no murmurs and no rubs GI Inspection: Yes normal to inspection Palpation (GI): Soft to palpation (Semi soft) and nontender Percussion: Yes normal to percussion Auscultation: Hypoactive bowel sounds present Skin General skin exam: no rashes or lesions noted, elasticity normal and turgor normal Neuro General: patient oriented x3 Psych Appearance: grossly normal Mental Status: mental status grossly normal Speech and movement: Normal speech and movement present Affect: normal affect Assessment & Plan Assessment & Plan (1) Diabetic gastroparesis: Code(s): E11.43 - Type 2 diabetes mellitus with diabetic autonomic (poly)neuropathy; K31.84 - Gastroparesis Plan: Patient is following GI specialists, advised patient to reach out to GI specialty for recommendations given chronic recurrence of symptoms. Advised temporary increase in fiber supplementation for symptomatic management given the medication she is currently on. Recent ER report and imaging results reviewed with patient. Advised patient to follow up with PCP as well for imaging results and plan if needed for noted chronic changes. (2) Nausea: Code(s): R11.0 - Nausea Plan: Short course of Zofran prescribed for symptomatic management. Advised patient to follow up with GI specialty in regards to chronic constipation issues. Plan See above for full details and plan. Medications: New ondansetron 4 mg PO Q8H 2 days PRN 6 tabs 0RF nausea and vomiting Coding Level of Care Code Est Pt Level 4 (18720) Diagnoses Diabetic gastroparesis E11.43; K31.84 Nausea R11.0
[2024-04-03 09:35] VITALS: BP 132/66; PULSE 103; TEMP 36.9; O2SAT 95; BMI 25.5
== END 2024-04-03 10:43 | disposition home or self-care (01) ==
PROVIDERS: PCP Internal Medicine; Visit Provider Registered Nurse
DX: E11.43 Type 2 diabetes mellitus with diabetic autonomic (poly)neuropathy (principal); K31.84 Gastroparesis; R11.0 Nausea
CPT/HCPCS: 99214

== ENCOUNTER 2024-04-15 18:08 | Inpatient (IN) | payer OTHER, SELFPAY ==
--- NOTE | ~2024-04-15 | US_ITS ---
EXAMINATION: US RETROPERITONEAL LIMITED, RIGHT (RENAL ONLY) CLINICAL INFORMATION: Renal cyst. COMPARISON: CT abdomen 04/16/2024. Correlation with MRI report 04/05/2019. TECHNIQUE: Limited Renal ultrasound FINDINGS: RIGHT KIDNEY: 10.5 x 5 x 4.8 cm (SAG x AP x TRV). The kidney is normal in size, contour, and echogenicity. Renal cortical thickness is normal. In the midpole, there is a exophytic focus along the midpole, which is isoechoic/slightly hypoechoic as compared to the adjacent renal parenchyma. This measures 3 x 2 x 2.6 cm. No internal vascularity seen. Previous MRI documented size of 1.5 x 1.5 cm. No Hydronephrosis. US/US renal RT IMPRESSION: There is a isoechoic/slightly hypoechoic focus projecting off the mid pole of the right kidney. No internal vascularity. This has a maximal measurement of 3 cm. This is indeterminate by ultrasound. Etiology has not been determined. Previous MRI of 04/05/2019 documented a size of 1.5 cm.. See MRI report 04/05/2019. Recommend urology consult. Recommend further evaluation with MRI without and with contrast.. The report will be called to the ordering clinician by a [place] [facility] Physician Radio Frequency Technician. Electronically signed by: Sergio Bee MD 04/17/2024 02:48 PM EDT
--- NOTE | ~2024-04-15 | CT_ITS ---
EXAMINATION: CT CHEST WITHOUT CONTRAST CLINICAL INFORMATION: Shortness of breath and wheezing. COMPARISON: None available. TECHNIQUE: Multidetector volumetric CT imaging of the chest was done. Axial MIP volume rendering provided. Sagittal and coronal reformatted images were obtained. This CT examination was performed using dose optimization techniques as appropriate, variously including the following: *Automated exposure control *Adjustment of mA and/or kV according to patient size (this includes techniques or standardized protocols for targeted exams where dose is matched to indication/reason for exam; i.e. extremities or head) *Use of iterative reconstruction technique DLP: 182.53 mGy-cm FINDINGS: PHARMACY SALES REPRESENTATIVE: Unremarkable. LUNGS: There is mild patchy infiltrative change at the right lung base associated with some adjacent nodules measuring up to 5 mm. A nonspecific 4 mm right middle lobe nodule. The lungs are otherwise clear. MEDIASTINUM: The mediastinum is normal. CORONARY ARTERY CALCIFICATION: Moderate. PLEURA: There is no pleural effusion. No pleural mass or thickening. AXILLA: No lymphadenopathy. UPPER ABDOMEN: Unremarkable. OSSEOUS STRUCTURES: Unremarkable. CT/CT chest wo IV con IMPRESSION: Mild patchy infiltrative change at the right lung base associated with some adjacent nodules measuring up to 5 mm. This is nonspecific and could be postinfectious versus early infectious.. Fleischner guidelines were followed. Electronically signed by: Jean Paul Ross MD 04/16/2024 03:35 AM EDT
--- NOTE | ~2024-04-15 | XR_ITS ---
EXAMINATION: XR CHEST CLINICAL INFORMATION: Shortness of breath and hypoxia; question pneumonia. COMPARISON: Chest radiographs dated 03/17/2024. TECHNIQUE: Frontal view of the chest was obtained. FINDINGS: No significant abnormality is noted involving the heart, lungs, mediastinum, bony thorax or soft tissues. There is atherosclerotic dilatation of the aortic knob. XR/XR chest 1V IMPRESSION: Unremarkable examination. Electronically signed by: Nestor Kim MD 04/15/2024 11:24 PM EDT
--- NOTE | ~2024-04-15 | FL_ITS ---
EXAMINATION: XR FLUOROSCOPY UPPER GI WITH SMALL BOWEL SERIES CLINICAL INFORMATION: Epigastric pain. COMPARISON: Small bowel series 10/11/2018 TECHNIQUE: Fluoroscopic air contrast upper GI examination was performed utilizing standard techniques with thin and thick barium and effervescent granules. Numerous spot images were obtained. FINDINGS: Images of the oropharynx and hypopharynx demonstrate normal swallow mechanism with normal epiglottic inversion and soft palate elevation. No tracheal penetration, glottic or subglottic aspiration identified. No nasopharyngeal reflux present. Hypopharyngeal structures appear normal without evidence of mass or diverticulum. There is ballooning of the hypopharynx with mild cricopharyngeal achalasia present. Dual and single contrast images of the esophagus demonstrate normal caliber, contour, and mucosal pattern. No evidence of stricture, mass, or ulcerations identified. There is to and fro motion of the barium column with nonpropulsive tertiary contractions noted throughout the esophagus. No evidence of hiatus hernia identified. No significant gastroesophageal reflux was seen during the course of the examination and on reflux views. Dual contrast and single contrast images of the stomach demonstrated a normal contour. The gastric rugal folds have a very thickened appearance, suggestive of gastritis. No masses or ulcerations are seen. Contrast freely passed into the gastric antrum and duodenal bulb without delay. Single and air-contrast images of the duodenal bulb demonstrate no abnormality. The duodenal sweep has a normal appearance, course, and mucosal fold appearance. The imaged small bowel has a normal caliber. Jejunal folds appear prominent, and there appears to be jejunalization of the ileal fold pattern. No masses, strictures, or dilated loops are present. There is a rapid transit of the barium column with contrast observed in the right colon after 15 minutes. FLUOROSCOPY TIME: 5 minutes 52 seconds Number of Spot Images: 7 Number of Cine: 13 DOSE AREA PRODUCT: 3187 uGy-m2 (microgray-meter squared) FL/FL barium swallow w SBFT IMPRESSION: 1. Ballooning of the hypopharynx of mild cricopharyngeal achalasia present. 2. Esophageal dysmotility. 3. Thickened appearance of the gastric rugal folds, suggestive of gastritis. 4. Rapid transit of the barium column, with contrast observed in the right colon after 15 minutes. Mild fold thickening throughout the jejunum. Also, there appears to be jejunalization of the ileal fold pattern. These findings are typically associated with celiac disease. This procedure was performed by Juan Aaron PA-C, and supervised by Dr. Lomax Electronically signed by: Rui Lomax MD 04/18/2024 04:36 PM EDT
--- NOTE | ~2024-04-15 | CT_ITS ---
EXAMINATION: CT ABDOMEN AND PELVIS WITHOUT AND WITH CONTRAST CLINICAL INFORMATION: Right renal mass. COMPARISON: None available. TECHNIQUE: Contiguous axial thin section helical images of the abdomen were performed before and after the administration of oral contrast and 85 mL of Omnipaque 350 intravenous contrast. The data set was reformatted in the coronal and sagittal planes and reviewed on an independent workstation. This CT examination was performed using dose optimization techniques as appropriate, variously including the following: *Automated exposure control *Adjustment of mA and/or kV according to patient size (this includes techniques or standardized protocols for targeted exams where dose is matched to indication/reason for exam; i.e. extremities or head) *Use of iterative reconstruction technique DLP: 574 mGy-cm FINDINGS: LUNG BASES: Scarring present at the lung bases with some traction bronchiectasis on the right. There are a number of small pulmonary nodules seen at the right lung base the largest measuring 5 mm (6:22). LIVER, GALLBLADDER, AND BILIARY TREE: The liver, gallbladder and bile ducts are unremarkable. PANCREAS: Normal. SPLEEN: Normal. ADRENAL GLANDS: Normal. KIDNEYS: Right: There is a large 3.4 x 2.4 x 2.4 cm right lower pole enhancing renal mass consistent with a renal cell carcinoma. The mass extends to just before the level of the renal sinus. There are 2 additional tiny masses seen in the mid to upper left kidney laterally which measure 0.6 cm and 0.5 cm which may represent either tiny angiomyolipomas or cysts. In either case, these are not worrisome findings. No nephrocalcinosis. No hydronephrosis. The right ureter appears normal. Left: The left kidney and ureter appear normal. BOWEL LOOPS: Dense barium is present throughout the colon. No evidence of bowel obstruction. LYMPH NODES: No retroperitoneal lymphadenopathy. VASCULAR: Calcific atherosclerotic changes are present in the aorta and iliofemoral vessels with significant area of stenosis in the infrarenal aorta as well as in the iliac vessels. I suspect that this patient is a smoker and this represents Leriche syndrome. There is no evidence of an abdominal aortic aneurysm. BONES: Mild degenerative changes are present in the spine. No bony destructive lesions are seen to suggest metastatic disease. CT/CT abdomen wo/w IV con IMPRESSION: 1. A 3.4 cm right lower pole enhancing renal mass consistent with renal cell carcinoma. 2. No evidence of metastatic disease in the abdomen or pelvis. 3. Other incidental findings as described above including severe aortoiliac atherosclerotic changes with stenosis of the infrarenal aorta and iliac vessels. This patient is likely a smoker and this represents Leriche syndrome. 4. Incidentally noted pulmonary nodules, the largest measuring [address] at 3-6 months (per oncology protocol) to confirm persistence. Fleischner guidelines were followed. Electronically signed by: Ra Palmer MD 04/19/2024 07:54 PM EDT
--- NOTE | ~2024-04-15 | CT_ITS ---
EXAMINATION: CT ABDOMEN AND PELVIS WITHOUT CONTRAST CLINICAL INFORMATION: Abdominal pain. COMPARISON: None available. TECHNIQUE: Multidetector volumetric imaging was performed from the superior aspect of the liver through the pubic symphysis. Sagittal and coronal reformatted images were obtained on the technologist's workstation. This CT examination was performed using dose optimization techniques as appropriate, variously including the following: *Automated exposure control *Adjustment of mA and/or kV according to patient size (this includes techniques or standardized protocols for targeted exams where dose is matched to indication/reason for exam; i.e. extremities or head) *Use of iterative reconstruction technique DLP: 582 mGy-cm FINDINGS: LUNG BASES: There is patchy infiltrative change and scarring at the right lung base LIVER, GALLBLADDER, AND BILIARY TREE: The liver is normal in size, shape, and attenuation. No focal hepatic lesion or biliary ductal dilatation is present. The gallbladder is unremarkable with no evidence of radiopaque gallstones, gallbladder wall thickening, or obvious pericholecystic inflammatory changes. PANCREAS: Unremarkable. SPLEEN: Unremarkable. ADRENAL GLANDS: Unremarkable. KIDNEYS AND URETERS: The kidneys are normal in size, shape, and attenuation. There is an intermediate to high density structure projecting off the mid to lower pole the right kidney measuring 2.5 cm. There is no hydronephrosis. BLADDER: Unremarkable. GASTROINTESTINAL TRACT: The small and large bowel are unremarkable. The appendix is unremarkable. ABDOMINAL WALL: No significant hernia is appreciated. LYMPH NODES: Normal. VASCULAR: There is atherosclerotic plaque of the abdominal aorta and proximal branches. PELVIC VISCERA: Unremarkable. OSSEOUS STRUCTURES: There is mild diffuse thoracolumbar degenerative changes. CT/CT abdomen pelvis wo IV con IMPRESSION: 1. No acute abnormality in the abdomen or pelvis. 2. There is an intermediate to high density structure projecting off the mid to lower pole the right kidney measuring 2.5 cm. This may represent a hemorrhagic cyst. Recommend correlation with renal ultrasound. 3. Patchy infiltrative change and scarring at the right lung base. This is suspected to be chronic. Fleischner guidelines were followed. Electronically signed by: Jean Paul Ross MD 04/16/2024 06:32 AM EDT
[2024-04-15 18:10] VITALS: BP 141/70; PULSE 100; RESP 22; TEMP 36.9; O2SAT 92; BMI 24.9
[2024-04-15 18:30] LABS: MANUAL DIFF FLAG NO
[2024-04-15 18:36] LABS: Basophils Absolute Auto 0.1 X10*3/uL (0.0-0.2); Basophils Percent Auto 0.7 % (0-2); Eosinophils Absolute Auto 0.2 X10*3/uL (0.0-0.4); Eosinophils Percent Auto 1.9 % (0-4); Hematocrit 39.8 % (37.0-47.0); Hemoglobin 11.8 g/dl (12.0-16.0); Imm Gran Abs Auto 0.11 X10*3/uL (0.00-0.03); Imm Gran Pct Auto 1.1 % (0.0-0.4); Lymphocytes Absolute Auto 3.1 X10*3/uL (1.2-4.9); Lymphocytes Percent Auto 29.9 % (20-40); Mean Corpuscular HGB Conc 29.6 g/dl (31.0-35.0); Mean Corpuscular Hemoglobin 25.8 pg (27.0-33.0); Mean Corpuscular Volume 86.9 fL (80.0-98.0); Mean Platelet Volume 9.8 fL (9.4-12.3); Monocytes Absolute Auto 0.8 X10*3/uL (0.1-1.2); Monocytes Percent Auto 7.9 % (2-11); NRBC Pct Auto 0.2 /100WBC (0.0-0.2); Neutrophils Percent Auto 58.5 % (45-73); Platelet Count 398 X10*3/uL (160-400); Red Blood Count 4.58 X10*6/uL (4.20-5.50); Red Cell Distribution Width 16.2 % (11.0-16.0); White Blood Count 10.3 X10*3/uL (4.8-10.8)
[2024-04-15 18:45] LABS: Alanine Aminotransferase 9 U/L (0-31); Albumin Level 4.2 g/dL (3.5-5.0); Alkaline Phosphatase 91 U/L (39-117); Anion Gap 16 (12-20); Aspartate Amino Transferase 12 U/L (5-31); Bilirubin Total 0.2 mg/dL (0.0-1.0); Blood Urea Nitrogen 9 mg/dL (9-16); Calcium 10.4 mg/dL (8.4-10.2); Carbon Dioxide 33 mmol/L (22-29); Chloride 99 mmol/L (96-108); Creatinine Clr Calc Pharmacy 76.4; Estimated Glomerular Filt Rate > 60; Glucose Random 100 mg/dL (60-115); Sodium 144 mmol/L (135-145); Total Protein 7.2 g/dL (6.5-8.0)
[2024-04-15 19:09] LABS: Influenza A PCR NEGATIVE (Negative); Influenza B PCR NEGATIVE (Negative); Resp Syncy Virus RNA Qual PCR NEGATIVE (Negative); SARS COV2 PCR INHOUSE NEGATIVE (Negative)
[2024-04-15 19:33] VITALS: BP 116/49; PULSE 88; RESP 16; TEMP 36.8; O2SAT 93
--- NOTE | 2024-04-15 20:12 | ED_ITS ---
HPI - Abdominal Pain General Chief Complaint: Abdominal Pain Stated Complaint: abd pain,sob Time Seen by Provider: 04/15/24 20:10 Source: patient Mode of arrival: ambulatory Limitations: no limitations History of Present Illness ED Provider: Dr. Enmanuel Henderson HPI narrative: 63-year-old female with a PMH significant for COPD on 2 L NC at home, HTN, HLD, [id number] type 2 diabetes, and GERD who presents to the ER with a complaint of nausea, epigastric abdominal, increased shortness of breath and wheezing. Patient states that she has been having a dull, constant pain and she points to her epigastric area when asked to localize the area of the pain. She states she has had similar pain in the past. The pain is 8/10. She had associated nausea with no vomiting. She does take omeprazole she states it was not relieving her pain. She also states she was feeling short of breath but has been using your inhalers at home. Patient has chronic cough and chronic shortness of breath secondary to COPD. She continues to smoke cigarettes. She denied fever, chills, frequency, urgency or dysuria. Related Data Home Medications ?Medication ?Instructions ?Recorded ?Confirmed aspirin 81 mg tablet,delayed 81 mg PO BEDTIME 01/10/21 03/18/24 release (Adult Low Dose Aspirin) umeclidinium 62.5 mcg/actuation 1 inh inhalation DAILY 03/31/21 03/18/24 blister powder for inhalation albuterol sulfate 2.5 mg/3 mL 2.5 mg inhalation Q6H PRN wheezing 08/02/23 03/18/24 (0.083 %) solution for nebulization fluticasone furoate 200 1 inh inhalation DAILY 08/25/23 03/18/24 mcg/actuation blister powder for inhalation (Arnuity Ellipta) linaclotide 145 mcg capsule 145 mcg PO DAILY 02/28/24 03/18/24 (Linzess) metoclopramide HCl 10 mg tablet 10 mg PO TIDAC gastroparesis 02/28/24 03/18/24 (Reglan) omeprazole 20 mg capsule,delayed 20 mg PO DAILY@0630 02/28/24 03/18/24 release psyllium husk 0.52 gram capsule 1.04 g PO BID Constipation 02/28/24 03/18/24 (Fiber Laxative (psyllium husk)) Previous Rx's ?Medication ?Instructions ?Recorded blood-glucose meter (FreeStyle #1 ea 10/03/21 Lite Meter kit) lancets 28 gauge (FreeStyle #100 ea 01/06/22 Lancets) FreeStyle Lite Strips (blood sugar #100 ea 03/10/22 diagnostic) flash glucose sensor (FreeStyle #6 ea 02/19/23 Cristian 2 Sensor kit) flash glucose scanning reader #1 ea 03/26/23 (FreeStyle Cristian 2 [place]) losartan 50 mg tablet 50 mg PO DAILY #90 tabs 10/10/23 cholecalciferol (vitamin D3) 50 50 mcg PO DAILY #90 caps 11/22/23 mcg (2,000 unit) capsule sitagliptin phosphate 100 mg 100 mg PO DAILY #90 tabs 11/22/23 tablet (Januvia) metformin 1,000 mg tablet 1,000 mg PO BID #180 tabs 12/01/23 rosuvastatin 5 mg tablet 5 mg PO DAILY #90 tabs 12/01/23 simethicone 180 mg capsule 180 mg PO QID #120 caps 01/13/24 gabapentin 800 mg tablet 800 mg PO TID 30 days #90 tabs 01/26/24 baclofen 10 mg tablet 10 mg PO TID 30 days #90 tabs 01/27/24 amlodipine 5 mg tablet 5 mg PO DAILY #90 tabs 03/20/24 ondansetron 4 mg disintegrating 4 mg PO Q8H PRN nausea and 04/03/24 tablet vomiting 2 days #6 tabs naproxen 500 mg tablet 500 mg PO BID PRN for pain #30 tabs 04/05/24 aluminum hydrox-magnesium carb 254 10 ml PO QID PRN dyspepsia #355 mL 04/15/24 mg-237.5 mg/5 mL oral suspension (Gaviscon Extra Strength) Allergies Allergy/AdvReac Type Severity Reaction Status Date / Time amoxicillin [AMOXICILLIN] Allergy Intermediate RASH Verified 04/15/24 18:14 Review of Systems Review of Systems Yes all other systems are reviewed and are negative [facility] Past Medical History Medical History (Updated 04/15/24 @ 20:30 by Enmanuel Henderson MD) Chronic lung disease COPD (chronic obstructive pulmonary disease) Type 2 diabetes mellitus without complication, with no history of insulin use Mixed dyslipidemia Essential hypertension GERD (gastroesophageal reflux disease) Gastroparesis Diastolic CHF with preserved left ventricular function, NYHA class 2 Chronic hypercapnic respiratory failure Type 2 diabetes mellitus with other diabetic kidney complication Type 2 diabetes mellitus without complication, with no history of insulin use Smoker unmotivated to quit Postlaminectomy syndrome of cervical region Seasonal allergic rhinitis Degenerative disc disease, cervical Postmenopause Dyslipidemia Surgical History H/O cervical discectomy History of esophagogastroduodenoscopy (EGD) Hx of colonoscopy Family History Family History Mother Diabetes Sister Diabetes Mental health disorder Brother Diabetes Father HTN (hypertension) Social History Social History Household Members: Significant Other Housing: Other Housing Other:: mobile home Do you presently have visiting nurse or other home 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) Alcohol intake: former Comment: Commode/ Hi Flow O2 Patient Tobacco Use Status: Current everyday Tobacco user Tobacco use type: Cigarette Cigarette Packs Per Day: 1 Cigarettes Per Day: 20.0 Years Smoked: 50 Smoked in Last 30 Days: Yes e-Cigarette/Vaping Use: Never Used Second Hand Smoke Exposure: No Use of substances other than those prescribed or required for medical reasons: No Advance Directives: Yes Advance Directives on File: Yes Advance Directives Date on File: 09/20/21 Do you have a plan to hurt others: No Plan Patient : No service: No Current occupational status: unemployed Cognitive needs: No Hearing needs: No Vision needs: Yes Physical Exam ED Vital Signs: Vital Signs - 24 hr 04/15/24 18:10 04/15/24 19:33 04/15/24 20:34 Temperature 98.5 F 98.3 F Pulse Rate 100 88 Respiratory Rate 22 H 16 18 Blood Pressure 141/70 H 116/49 L Pulse Oximetry 92 93 Oxygen Delivery Method Nasal Cannula Nasal Cannula Oxygen Flow Rate 2 04/15/24 21:14 Temperature 97.8 F Pulse Rate 100 Respiratory Rate 20 Blood Pressure 134/44 L Pulse Oximetry 78 L Oxygen Delivery Method Nasal Cannula Oxygen Flow Rate 2 BMI result Body Mass Index 24.9 Vital signs were normal Exam: General: Awake, alert in no distress Head: Normocephalic, atraumatic EENT: PERRL, Lids normal, sclera normal, conjunctiva normal, nose normal , ears normal, throat without erythema or exudates Neck: Supple, no adenopathy Lung: Breath sounds are symmetric bilaterally, patient has diffuse wheezing with no rales or rhonchi Chest: symmetric movement, nontender Heart: regular rate and rhythm, normal S1, S2 no murmurs or rubs Abdomen: soft, mild to moderate epigastric tenderness, nondistended, normal bowel sounds Back: no vertebral tenderness, no CVAT Extremities: no deformities, moves all extremities symmetrically Neuro: Awake, alert, oriented, normal speech, cranial nerves intact, moves all extremities symmetrically Psych: Pleasant, cooperative Medical Decision Making Medical Decision Making MDM Narrative: 63-year-old female with a PMH significant for COPD on 2 L NC at home, HTN, HLD, gfv-uhhrbtb-hucgpenjy type 2 diabetes, and GERD who presents to the ER with a complaint of nausea, epigastric abdominal, increased shortness of breath and wheezing. Patient states that she has had similar pain in the past, exam did reveal epigastric tenderness and wheezing otherwise was unremarkable. Patient was seen in the emergency department on 03/17/2024 with similar symptoms and had a negative workup including a negative CT scan of the abdomen pelvis at that time. Differential diagnosis: ?Includes but is not limited to pneumonia, bronchitis, COPD exacerbation, gastritis, GERD, peptic ulcer disease, anemia, electrolyte abnormalities Following evaluation was ordered: CBC, CMP, COVID-19, influenza, RSV Patient was initially treated with the following: Bronchodilator protocol Course: Patient's physical examination did reveal wheezing and epigastric tenderness. At this time I think that she was having a mild asthma exacerbation she was treated with bronchodilators. Patient's abdominal pain is most likely secondary to gastritis and I told her to continue taking her omeprazole. She was given Maalox here in the emergency department she was also prescribed extra-strength Gaviscon to see if this helps her symptoms. She was given printed and verbal instructions and discharged home 21:34 The patient received a albuterol 10 mg nebulizer treatment and the plan was discharged home. The nurse went to discharge her and the patient was hypoxic hypoxic with an O2 saturation went down to 82% on 2 L-this is what she wears at home. Patient was now on 3 L her O2 saturation is 88%. Concerned that the patient has a COPD exacerbation versus pneumonia therefore I ordered chest x- ray, VBG, BNP, blood cultures x2, lactic acid Solu-Medrol 125 mg IV. Admission/Observation Consideration of admission/observation: Escalation of care including admission/observation considered (Yes) Lab Data MDM Lab Attestation statement: I reviewed the patient's lab results. My interpretation patient's laboratory evaluation as follows: CBC was normal. CO2 was elevated 33 secondary to her COPD. LFTs were normal. COVID-19, influenza and RSV were negative. 04/15/24 18:24 04/15/24 18:24 Labs: Lab Results 04/15/24 Range/Units 18:24 WBC 10.3 (4.8-10.8) X10*3/uL RBC 4.58 (4.20-5.50) X10*6/uL Hgb 11.8 L (12.0-16.0) g/dl Hct 39.8 (37.0-47.0) % MCV 86.9 (80.0-98.0) fL MCH 25.8 L (27.0-33.0) pg MCHC 29.6 L (31.0-35.0) g/dl RDW 16.2 H (11.0-16.0) % Plt Count 398 (160-400) X10*3/uL MPV 9.8 (9.4-12.3) fL Immature Gran % (Auto) 1.1 H (0.0-0.4) % Neut % (Auto) 58.5 (45-73) % Lymph % (Auto) 29.9 (20-40) % [place] % (Auto) 7.9 (2-11) % Eos % (Auto) 1.9 (0-4) % Baso % (Auto) 0.7 (0-2) % Lymph # (Auto) 3.1 (1.2-4.9) X10*3/uL [place] # (Auto) 0.8 (0.1-1.2) X10*3/uL Eos # (Auto) 0.2 (0.0-0.4) X10*3/uL Baso # (Auto) 0.1 (0.0-0.2) X10*3/uL Abs Immat Gran (auto) 0.11 H (0.00-0.03) X10*3/uL Absolute Neuts (auto) 6.0 (2.0-8.3) x10*3/uL Absolute Nucleated RBC 0.020 H (0.0-0.012) X10*3/uL Nucleated RBC % (auto) 0.2 (0.0-0.2) /100WBC Sodium 144 (135-145) mmol/L Potassium 4.0 (3.3-5.1) mmol/L Chloride 99 (96-108) mmol/L Carbon Dioxide 33 H (22-29) mmol/L Anion Gap 16 (12-20) BUN 9 (9-16) mg/dL Creatinine 0.53 (0.5-1.4) mg/dL Estim Creat Clear Calc 76.4 Estimated GFR > 60 Random Glucose 100 (60-115) mg/dL Calcium 10.4 H (8.4-10.2) mg/dL Total Bilirubin 0.2 (0.0-1.0) mg/dL AST 12 (5-31) U/L ALT 9 (0-31) U/L Alkaline Phosphatase 91 (39-117) U/L Total Protein 7.2 (6.5-8.0) g/dL Albumin 4.2 (3.5-5.0) g/dL Influenza Type A (PCR) NEGATIVE (Negative) Influenza Type B (PCR) NEGATIVE (Negative) RSV RNA Qual (PCR) NEGATIVE (Negative) SARS-CoV-2 RNA (RT-PCR) NEGATIVE (Negative) Prescription Management I considered prescription management with: Other (Antacids-Gaviscon extra- strength) Chronic Conditions Patient?s care impacted by: Diabetes, Hypertension and Other (GERD, COPD) Medications Administered Discontinued Medications Generic Name Dose Route Start Last Admin Trade Name Freq PRN Reason Stop Dose Admin Al Hydroxide/Mg Hydroxide 30 ml 04/15/24 20:22 04/15/24 20:40 Magnesium Hydrox/Alum Hydrox 30 Ml Oral.Susp PO 04/15/24 20:23 30 ml ONCE STA Administration Albuterol Sulfate 7.5 mg/ 10 mg 04/15/24 20:35 04/15/24 20:38 Albuterol Sulfate 2.5 mg INHALE 04/15/24 20:36 10 mg ONCE ONE Administration Discharge Plan Discharge Clinical Impression: Acute exacerbation of chronic obstructive pulmonary disease GERD (gastroesophageal reflux disease) Qualifiers: Esophagitis presence: without esophagitis Qualified Code(s): K21.9 - Gastro- esophageal reflux disease without esophagitis Patient Disposition: Home, Self-Care Additional Instructions: Your blood work was normal. Your COVID-19, influenza and RSV tests were negative Your abdominal pain is consistent with too much acid in your stomach, this is called gastritis. Continue taking your omeprazole as prescribed. Take extra-strength Gaviscon 10 mL (2 tsp) 4 times a day as needed for abdominal pain. You were given a breathing treatment here in the emergency department. Continue using your inhalers and your nebulizer treatments as prescribed by your provider. Follow-up with your doctor in 2 days. Please return to the emergency department if your symptoms get worse or if you develop any symptoms that are concerning to you. Prescriptions: New Gaviscon Extra Strength 254-237.5 mg/5 mL suspension 10 ml PO QID PRN (Reason: dyspepsia) Qty: 355 0RF No Action (DME) lancets [FreeStyle Lancets] 28 gauge misc See Rx Instructions .Route Qty: 100 5RF Rx Instructions: As directed twice a day AC (DME) FreeStyle Lite Strips Strip See Rx Instructions .Route Qty: 100 0RF Rx Instructions: check fasting blood sugar twice a day before meals (DME) FreeStyle Cristian 2 Sensor Kit See Rx Instructions .Route Qty: 6 3RF Rx Instructions: Test blood sugar 4 times per day (DME) FreeStyle Cristian 2 [place] Misc See Rx Instructions .Route Qty: 1 0RF Rx Instructions: test blood sugar 4 times per day losartan 50 mg tablet 50 mg PO DAILY Qty: 90 1RF Januvia 100 mg tablet 100 mg PO DAILY Qty: 90 1RF cholecalciferol (vitamin D3) 50 mcg (2,000 unit) capsule 50 mcg PO DAILY Qty: 90 1RF metformin 1,000 mg tablet 1,000 mg PO BID Qty: 180 3RF rosuvastatin 5 mg tablet 5 mg PO DAILY Qty: 90 1RF simethicone 180 mg capsule 180 mg PO QID Qty: 120 6RF gabapentin 800 mg tablet 800 mg PO TID 30 Days Qty: 90 6RF amlodipine 5 mg tablet 5 mg PO DAILY Qty: 90 0RF naproxen 500 mg tablet 500 mg PO BID PRN (Reason: for pain) Qty: 30 0RF albuterol sulfate 2.5 mg /3 mL (0.083 %) solution for nebulization 2.5 mg inhalation Q6H PRN (Reason: wheezing) omeprazole 20 mg capsule,delayed release(DR/EC) 20 mg PO DAILY@0630 psyllium husk [Fiber Laxative (psyllium husk)] 0.52 gram capsule 1.04 g PO BID Linzess 145 mcg capsule 145 mcg PO DAILY metoclopramide HCl [Reglan] 10 mg tablet 10 mg PO TIDAC umeclidinium 62.5 mcg/actuation blister with device 1 inh inhalation DAILY Rx Instructions: Encruse aspirin [Adult Low Dose Aspirin] 81 mg tablet,delayed release (DR/EC) 81 mg PO BEDTIME ondansetron 4 mg tablet,disintegrating 4 mg PO Q8H PRN (Reason: nausea and vomiting) 2 Days Qty: 6 0RF (DME) blood-glucose meter [FreeStyle Lite Meter] Kit See Rx Instructions .Route Qty: 1 0RF Rx Instructions: As directed twice a day before meals Arnuity Ellipta 200 mcg/actuation blister with device 1 inh inhalation DAILY baclofen 10 mg tablet 10 mg PO TID 30 Days Qty: 90 6RF Print Language: Burkinan
[2024-04-15 20:34] VITALS: PULSE 73; RESP 18; O2SAT 87
[2024-04-15] MEDS: Albuterol Sulfate 7.5 MG, Albuterol Sulfate (0.083%) 2.5 MG 10 MG INHALE (20:38)
[2024-04-15] MEDS: Magnesium Hydrox/Alum Hydrox 30 ML ORAL.SUSP PO (20:40)
[2024-04-15 21:14] VITALS: BP 134/44; PULSE 100; RESP 20; TEMP 36.6; O2SAT 78
--- NOTE | 2024-04-15 21:32 | ECG_ITS ---
Test Reason : DYSPNEA Blood Pressure : / mmHG Vent. Rate : 098 BPM Atrial Rate : 098 BPM P-R Int : 116 ms QRS Dur : 080 ms QT Int : 376 ms P-R-T Axes : 079 085 039 degrees QTc Int : 480 ms Normal sinus rhythm Nonspecific ST abnormality Abnormal ECG When compared with ECG of 17-MAR-2024 16:17, Nonspecific T wave abnormality no longer evident in Lateral leads Referred By: Enmanuel Henderson Electronically Signed By:JAMES YI
[2024-04-15] MEDS: methylPREDNISolone Sod Succ 125 MG/2 ML VIAL IVPUSH (22:05)
[2024-04-15 22:11] VITALS: RESP 25; O2SAT 89
[2024-04-15 22:11] LABS: VBG Base Excess 9.1 mmol/L; VBG HCO3 37 mmol/L (22-26); VBG pCO2 68 mmHg; VBG pH 7.34 (7.32-7.43); VBG pO2 51 mmHg
[2024-04-15 22:12] LABS: Venous Blood Gas Refer to POC result
[2024-04-15 22:27] LABS: B Type Natriuretic Peptide < 10 pg/mL (<100)
[2024-04-15 22:29] LABS: Lactic Acid 4.1 mmol/L (0.5-2.0)
[2024-04-15] MEDS: 0.9 % Sodium Chloride 1,000 ML 150 ML IV (23:08)
--- NOTE | 2024-04-15 23:59 | PM.IMHP ---
History of Present Illness Date of Service: 04/16/24 Chief Complaint: Dyspnea This is a 63-year-old female with pertinent history of chronic hypoxia due to COPD on 2 L supplemental oxygen, hypertension, hyperlipidemia, rrf-nhtgwqu-fklavavno diabetes mellitus, gastroesophageal reflux disease, tobacco use disorder who presents to the emergency department complaining of dyspnea and abdominal pain. She has been having dyspnea which is worse with exertion. Also is having cough and wheezing. Cough is with yellowish sputum production. Also complaining of epigastric pain that is intermittent and has been ongoing for a while. It is dull in nature, nonradiating and nonprogressive. Does have symptoms of gastroesophageal reflux disease. No fevers or chills. No vomiting, nausea or diarrhea. No chest discomfort, palpitations, changes in urinary or bowel habits. In the emergency department, patient found to be hypoxic and placed on 4 L supplemental oxygen. Patient with wheezing despite multiple DuoNeb treatments and IV steroids. Imaging concerning for pneumonia. Review of Systems Constitutional: Constitutional: Reports fatigue Cardiovascular: Cardiovascular: Reports dyspnea on exertion Respiratory: Respiratory: Reports cough, Reports dyspnea on exertion and Reports wheezing Gastrointestinal: Gastrointestinal: Reports no additional gastrointestinal complaints Genitourinary: Genitourinary: Reports no additional female genitourinary complaints Endocrine: Endocrine: Reports fatigue Allergic/Immunologic: Allergic/Immunologic: Reports wheezing [facility] Medical History Chronic lung disease COPD (chronic obstructive pulmonary disease) Type 2 diabetes mellitus without complication, with no history of insulin use Mixed dyslipidemia Essential hypertension GERD (gastroesophageal reflux disease) Gastroparesis Diastolic CHF with preserved left ventricular function, NYHA class 2 Chronic hypercapnic respiratory failure Type 2 diabetes mellitus with other diabetic kidney complication Type 2 diabetes mellitus without complication, with no history of insulin use Smoker unmotivated to quit Postlaminectomy syndrome of cervical region Seasonal allergic rhinitis Degenerative disc disease, cervical Postmenopause Dyslipidemia Family History Mother Diabetes Sister Diabetes Mental health disorder Brother Diabetes Father HTN (hypertension) Surgical History H/O cervical discectomy History of esophagogastroduodenoscopy (EGD) Hx of colonoscopy Social History Household Members: Significant Other Housing: Other Housing Other:: mobile home Do you presently have visiting nurse or other home services: 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) Alcohol intake: former Comment: Commode/ Hi Flow O2 Patient Tobacco Use Status: Current everyday Tobacco user Tobacco use type: Cigarette Cigarette Packs Per Day: 1 Cigarettes Per Day: 20.0 Years Smoked: 50 Smoked in Last 30 Days: Yes e-Cigarette/Vaping Use: Never Used Second Hand Smoke Exposure: No Use of substances other than those prescribed or required for medical reasons: No Advance Directives: Yes Advance Directives on File: Yes Advance Directives Date on File: 09/20/21 Do you have a plan to hurt others: No Plan Nutrition Risks: No Nutritional Risk Patient : No service: No Current occupational status: unemployed Cognitive needs: No Hearing needs: No Vision needs: Yes Meds Allergies Allergy/AdvReac Type Severity Reaction Status Date / Time amoxicillin [AMOXICILLIN] Allergy Intermediate RASH Verified 04/15/24 18:14 Active Medications: Current Medications Sodium Chloride (Ns) 1,000 mls @ 150 mls/hr IV .Q6H40M STA Stop: 04/16/24 05:09 Last Admin: 04/15/24 23:08 Dose: 150 mls/hr Home Medications ?Medication ?Instructions ?Recorded ?Confirmed ?Last Taken ?Type aspirin 81 mg tablet,delayed 81 mg PO BEDTIME 01/10/21 03/18/24 02/27/24 History release (Adult Low Dose Aspirin) umeclidinium 62.5 mcg/actuation 1 inh inhalation DAILY 03/31/21 03/18/24 02/27/24 History blister powder for inhalation albuterol sulfate 2.5 mg/3 mL 2.5 mg inhalation Q6H PRN wheezing 08/02/23 03/18/24 Unknown History (0.083 %) solution for nebulization fluticasone furoate 200 1 inh inhalation DAILY 08/25/23 03/18/24 02/27/24 History mcg/actuation blister powder for inhalation (Arnuity Ellipta) linaclotide 145 mcg capsule 145 mcg PO DAILY 02/28/24 03/18/24 02/27/24 History (Linzess) metoclopramide HCl 10 mg tablet 10 mg PO TIDAC gastroparesis 02/28/24 03/18/24 02/27/24 History (Reglan) omeprazole 20 mg capsule,delayed 20 mg PO DAILY@0630 02/28/24 03/18/24 02/27/24 History release psyllium husk 0.52 gram capsule 1.04 g PO BID Constipation 02/28/24 03/18/24 Unknown History (Fiber Laxative (psyllium husk)) Physical Exam Vital Signs and Narrative: Vital Signs: Last Vital Signs Temp 97.8 F 04/15/24 21:14 Pulse 100 04/15/24 21:14 Resp 25 H 04/15/24 22:11 BP 134/44 L 04/15/24 21:14 Pulse Ox 89 L 04/15/24 22:11 O2 Del Method Oxymask 04/15/24 22:11 O2 Flow Rate 6 04/15/24 22:11 Oxygen Flow Rate 3 04/15/24 18:10 BMI result Body Mass Index 24.9 Middle-aged female lying in bed in mild distress on supplemental oxygen Neck supple, no JVD Regular rate and rhythm, S1-S2 heard Bilateral wheezing without crackles Abdomen soft nontender, no guarding, no rigidity Patient is awake, alert and oriented to self, place, time and person ; no focal motor deficit Psych: Normal mood No pedal edema Results Labs 04/16/24 03:18 04/16/24 03:18 Labs: Laboratory Results - last 24 hr 04/15/24 04/15/24 04/15/24 18:24 21:59 22:07 MCV 86.9 MCH 25.8 L MCHC 29.6 L RDW 16.2 H Plt Count 398 MPV 9.8 Immature Gran % (Auto) 1.1 H Neut % (Auto) 58.5 Lymph % (Auto) 29.9 [place] % (Auto) 7.9 Eos % (Auto) 1.9 Baso % (Auto) 0.7 Lymph # (Auto) 3.1 [place] # (Auto) 0.8 Eos # (Auto) 0.2 Baso # (Auto) 0.1 Abs Immat Gran (auto) 0.11 H Absolute Neuts (auto) 6.0 Absolute Nucleated RBC 0.020 H Nucleated RBC % (auto) 0.2 VBG pH 7.34 VBG pCO2 68 VBG pO2 51 VBG HCO3 37 H VBG O2 Saturation 79.0 VBG Base Excess 9.1 Anion Gap 16 Estim Creat Clear Calc 76.4 Estimated GFR > 60 Random Glucose 100 Lactic Acid 4.1 H* Calcium 10.4 H Total Bilirubin 0.2 AST 12 ALT 9 Alkaline Phosphatase 91 B-Natriuretic Peptide < 10 Total Protein 7.2 Albumin 4.2 Influenza Type A (PCR) NEGATIVE Influenza Type B (PCR) NEGATIVE RSV RNA Qual (PCR) NEGATIVE SARS-CoV-2 RNA (RT-PCR) NEGATIVE Imaging Radiologist's Impressions: Impressions Chest X-Ray 04/15/24 21:33 IMPRESSION: Unremarkable examination. Electronically signed by: Nestor Kim MD 04/15/2024 11:24 PM EDT RP Workstation: [id number] Assessment and Plan (1) Acute exacerbation of chronic obstructive pulmonary disease: Status: Acute Plan This is a 63-year-old female with pertinent history of chronic hypoxia due to COPD on 2 L supplemental oxygen, hypertension, hyperlipidemia, ncc-yyxuslz-sqrmaythi diabetes mellitus, gastroesophageal reflux disease who presents to the emergency department complaining of abdominal pain and dyspnea. #. Acute on chronic hypoxia due to exacerbation of COPD in the setting of pneumonia: Will admit patient with supplemental oxygen. Initiating empiric IV antibiotics for community-acquired pneumonia. Continue systemic steroids. Scheduled and p.r.n. DuoNebs. Continue home inhaler #. Acute lactic acidosis due to albuterol use and hypoxia. No severe sepsis #. Epigastric pain: Does have symptoms of gastroesophageal reflux disease. Likely gastritis. CT abdomen/pelvis pending. May need GI consult if pain continues #. Pio-xaofoqy-eikamwnji diabetes mellitus with hyperglycemia: Initiating Accu-Cheks with sliding scale insulin #. Mixed hyperlipidemia: On statin #. Gastroesophageal reflux disease: On PPI #. Hypertension: Continue home antihypertensives #. Mood disorder: Continue home mood stabilizers Med rec pending DVT prophylaxis: Lovenox Full code Admit as inpatient and will require two night minimum hospital stay for supplemental oxygen, IV antibiotics (as above), which is not possible in a lesser acute setting. Quality Stroke Does the patient have a stroke diagnosis?: No VTE Prior VTE?: No VTE Risk Level:: Medical - moderate - high VTE Device Contraindication: Treatment Not Indicated VTE Drug Contraindication: N/A - Med Ordered
[2024-04-16] VITALS (7 sets, daily range): BP systolic 127–138; BP diastolic 40–63; PULSE 64–88; RESP 14–21; TEMP 36.3–36.7; O2SAT 90–98; BMI 25.3
[2024-04-16 00:05] LABS: Reflex Lactate? Lactic Acid Added
[2024-04-16 00:22] LABS: Lipase 18 U/L (8-78)
[2024-04-16 01:09] LABS: ~Lactic Acid-LAB USE ONLY 4.3 mmol/L (0.5-2.0)
[2024-04-16] MEDS: 0.9 % Sodium Chloride 500 ML IV (01:36)
[2024-04-16 02:46] LABS: Reflex Lactate? 2 Y
--- NOTE | 2024-04-16 03:02 | PC.NURSE ---
pt resting comfortably at this time. 02 at 4L (2L baseline) 02 stat ranging 87-93% when asleep.
[2024-04-16] MEDS: Nicotine 14 MG PATCH.TD24 TRANSDERMA (03:12)
--- NOTE | 2024-04-16 03:18 | PC.NURSE ---
nicotine patch placed to R shoulder
[2024-04-16 03:30] LABS: ~Lactic Acid-LAB USE ONLY 1.8 mmol/L (0.5-2.0)
[2024-04-16 03:32] LABS: Anion Gap 13 (12-20); Blood Urea Nitrogen 13 mg/dL (9-16); Calcium 9.7 mg/dL (8.4-10.2); Carbon Dioxide 36 mmol/L (22-29); Chloride 99 mmol/L (96-108); Creatinine Clr Calc Pharmacy 76.4; Estimated Glomerular Filt Rate > 60; Glucose Random 213 mg/dL (60-115); Potassium 3.6 mmol/L (3.3-5.1); Sodium 144 mmol/L (135-145)
[2024-04-16 03:33] LABS: Basophils Absolute Auto 0.1 X10*3/uL (0.0-0.2); Basophils Percent Auto 0.6 % (0-2); Eosinophils Percent Auto 0.2 % (0-4); Hematocrit 36.3 % (37.0-47.0); Hemoglobin 10.8 g/dl (12.0-16.0); Imm Gran Abs Auto 0.14 X10*3/uL (0.00-0.03); Imm Gran Pct Auto 1.1 % (0.0-0.4); Lymphocytes Absolute Auto 0.7 X10*3/uL (1.2-4.9); Lymphocytes Percent Auto 5.4 % (20-40); MANUAL DIFF FLAG SCAN; Mean Corpuscular HGB Conc 29.8 g/dl (31.0-35.0); Mean Corpuscular Hemoglobin 25.7 pg (27.0-33.0); Mean Corpuscular Volume 86.2 fL (80.0-98.0); Mean Platelet Volume 9.9 fL (9.4-12.3); Monocytes Absolute Auto 0.2 X10*3/uL (0.1-1.2); Monocytes Percent Auto 1.2 % (2-11); Neutrophils Absolute Auto 11.3 x10*3/uL (2.0-8.3); Neutrophils Percent Auto 91.5 % (45-73); Platelet Count 340 X10*3/uL (160-400); Red Blood Count 4.21 X10*6/uL (4.20-5.50); Red Cell Distribution Width 15.9 % (11.0-16.0); SCAN SMEAR FLAG 1; White Blood Count 12.3 X10*3/uL (4.8-10.8)
[2024-04-16 03:50] LABS: SLIDE REVIEW VERIFIED
[2024-04-16] MEDS: Pantoprazole Sodium 40 MG/10 ML VIAL IVPUSH (06:52)
[2024-04-16 07:14] LABS: Glucose, Whole Blood 174 mg/dL (60-115)
[2024-04-16] MEDS: Insulin Lispro 100 UNIT/ML 3 ML VIAL SUBCUT ×2 (07:18→20:46)
[2024-04-16] MEDS: cefTRIAXone sodium 1 GM in 0.9 % Sodium Chloride 50 ML IV (07:19)
[2024-04-16] MEDS: Albuterol/Iprat 2.5/0.5MG 3 ML AMPUL.NEB INHALE ×2 (08:01→15:05)
[2024-04-16] MEDS: Enoxaparin Sodium 40 MG/0.4 ML SYRINGE SUBCUT (08:39)
[2024-04-16] MEDS: predniSONE 20 MG TABLET 40 MG PO (08:39)
[2024-04-16] MEDS: Azithromycin 500 MG in 0.9 % Sodium Chloride 250 ML 125 MG IV (08:49)
--- NOTE | 2024-04-16 11:03 | PHA.MEDREC ---
Pharmacy Consult ? Medication Reconciliation Pharmacy has completed the medication reconciliation using discharge packet from 03/20/24 and pharmacy claims. Aso went to talk to patient and confirmed with her that nothing has changed since then. She confirmed she's still using Arnuity and Incruse. Last dose of all maintenant meds was yesterday 04/15/24.
[2024-04-16 11:41] LABS: Glucose, Whole Blood 119 mg/dL (60-115)
--- NOTE | 2024-04-16 13:40 | P.EN_ITS ---
Event Note Date of Service: 04/16/24 Event Note: 63-year-old female with pertinent history of chronic hypoxia due to COPD on 2 L supplemental oxygen, hypertension, hyperlipidemia, [id number] diabetes mellitus, gastroesophageal reflux disease who presents to the emergency department complaining of abdominal pain and dyspnea. Acute on chronic hypoxia due to exacerbation of COPD in the setting of pneumonia Will admit patient with supplemental oxygen. Initiating empiric IV antibiotics for community-acquired pneumonia. Continue systemic steroids. Scheduled and p.r.n. DuoNebs. Continue home inhaler Acute lactic acidosis due to albuterol use and hypoxia. No severe sepsis Epigastric pain Does have symptoms of gastroesophageal reflux disease. Likely gastritis. CT abdomen/pelvis pending. May need GI consult if pain continues Egb-fqyvjfh-obshzkxra diabetes mellitus with hyperglycemia: Initiating Accu- Cheks with sliding scale insulin Mixed hyperlipidemia On statin Gastroesophageal reflux disease On PPI Hypertension Continue home antihypertensives Mood disorder Continue home mood stabilizers DVT prophylaxis: Lovenox Full code Admit as inpatient and will require two night minimum hospital stay for supplemental oxygen, IV antibiotics (as above), which is not possible in a [facility] acute setting. Time Spent With Patient Time: Total time managing care of this patient today ____ minutes.
[2024-04-16] MEDS: 0.9 % Sodium Chloride Flush 3 ML SYRINGE IVFLUSH ×2 (15:30→20:47)
[2024-04-16 16:34] LABS: Glucose, Whole Blood 128 mg/dL (60-115)
[2024-04-16 20:40] LABS: Glucose, Whole Blood 156 mg/dL (60-115)
[2024-04-16] MEDS: Melatonin 3 MG TABLET 6 MG PO (20:47)
[2024-04-17] VITALS (8 sets, daily range): BP systolic 110–144; BP diastolic 53–66; PULSE 63–87; RESP 14–20; TEMP 36.1–36.7; O2SAT 92–98
[2024-04-17] MEDS: Pantoprazole Sodium 40 MG/10 ML VIAL IVPUSH (06:08)
[2024-04-17] MEDS: cefTRIAXone sodium 1 GM in 0.9 % Sodium Chloride 50 ML IV (06:10)
[2024-04-17] MEDS: Albuterol/Iprat 2.5/0.5MG 3 ML AMPUL.NEB INHALE ×4 (07:29→21:08)
--- NOTE | 2024-04-17 08:05 | HO.PM.IMPN ---
Subjective Subjective Date of Service: 04/17/24 Physical Exam Vital Signs: Vital Signs: Last Vital Signs Temp 96.9 F 04/17/24 07:58 Pulse 80 04/17/24 07:58 Resp 18 04/17/24 07:58 BP 141/62 H 04/17/24 07:58 Pulse Ox 95 04/17/24 07:58 O2 Del Method Nasal Cannula 04/17/24 07:58 O2 Flow Rate 2 04/17/24 07:58 Oxygen Flow Rate 3 04/15/24 18:10 BMI result Body Mass Index 25.3 Objective Data Active Medications Acetaminophen (Acetaminophen 325 Mg Tablet) 650 mg PO Q6H PRN PRN Reason: Pain, Mild (Pain Scale 1-3), fever or headache Albuterol/Ipratropium (Albuterol/Iprat 2.5/0.5mg 3 Ml Ampul.Neb) 3 ml INHALE RQ4H WHILE AWAKE [facility] Last Admin: 04/17/24 07:29 Dose: 3 ml Documented By: PATI Albuterol/Ipratropium (Albuterol/Iprat 2.5/0.5mg 3 Ml Ampul.Neb) 3 ml INHALE Q4H PRN PRN Reason: Wheezing Amlodipine Besylate (Amlodipine Besylate 5 Mg Tablet) 5 mg PO DAILY [facility]; Protocol Aspirin (Aspirin Enteric Coated 81 Mg Tablet.Dr) 81 mg PO BEDTIME [facility] Atorvastatin Calcium (Atorvastatin Calcium 20 Mg Tablet) 20 mg PO DAILY [facility] Baclofen (Baclofen 10 Mg Tablet) 10 mg PO TID [facility] Calcium Carbonate (Calcium Carbonate 750 Mg Tab.Chew) 750 mg PO Q4H PRN PRN Reason: Heartburn Enoxaparin Sodium (Enoxaparin Sodium 40 Mg/0.4 Ml Syringe) 40 mg SUBCUT Q24H [facility] Last Admin: 04/16/24 08:39 Dose: 40 mg Documented By: JUDD Fluticasone Propionate (Fluticasone Propionate 250 Mcg Blst.W.Dev) 1 puff INHALE RBID [facility] Gabapentin (Gabapentin 400 Mg Capsule) 800 mg PO TID [facility] Glucose (Glucose Gel 15 Gm Gel..Gram.) 15 gm PO Q15M PRN; Protocol PRN Reason: per Hypoglycemia Standing Ord. Ceftriaxone Sodium 1 gm/ (Sodium Chloride) 50 mls @ 100 mls/hr IV Q24H [facility] Last Infusion: 04/17/24 06:44 Dose: Infused Documented By: JUAN Azithromycin 500 mg/ Sodium (Chloride) 250 mls @ 125 mls/hr IV Q24H [facility] Last Infusion: 04/16/24 11:11 Dose: Infused Documented By: JUDD Dextrose (D10) 250 mls @ 750 mls/hr IV Q15M PRN; Protocol PRN Reason: per Hypoglycemia Standing Ord. Insulin Human Lispro (Insulin Lispro 100 Unit/Ml 3 Ml Vial) 0 unit SUBCUT QIDACHS [facility]; Protocol Last Admin: 04/16/24 20:46 Dose: 2 unit Documented By: JUAN Losartan Potassium (Losartan Potassium 50 Mg Tablet) 50 mg PO DAILY [facility]; Protocol Magnesium Hydroxide (Milk Of Magnesia 30 Ml Oral.Susp) 30 ml PO DAILY PRN PRN Reason: Constipation Melatonin (Melatonin 3 Mg Tablet) 6 mg PO BEDTIME PRN PRN Reason: Insomnia Last Admin: 04/16/24 20:47 Dose: 6 mg Documented By: JUAN Metformin HCl (Metformin Hcl 1,000 Mg Tablet) 1,000 mg PO BID [facility] Metoclopramide HCl (Metoclopramide Hcl 10 Mg Tablet) 10 mg PO TIDAC [facility] Non-Formulary Medication (Linaclotide [Linzess]) 145 mcg PO DAILY [facility] Omeprazole (Omeprazole 20 Mg Capsule.Dr) 20 mg PO DAILY@0630 [facility] Ondansetron HCl (Ondansetron Hcl 4 Mg/2 Ml Vial) 4 mg IVPUSH Q8H PRN PRN Reason: Nausea and Vomiting Pantoprazole Sodium (Pantoprazole Sodium 40 Mg/10 Ml Vial) 40 mg IVPUSH DAILY@0630 [facility] Last Admin: 04/17/24 06:08 Dose: 40 mg Documented By: JUAN Prednisone (Prednisone 20 Mg Tablet) 40 mg PO DAILY [facility] Last Admin: 04/16/24 08:39 Dose: 40 mg Documented By: JUDD Sitagliptin Phosphate (Sitagliptin Phosphate 100 Mg Tablet) 100 mg PO DAILY [facility] Sodium Chloride (0.9 % Sodium Chloride Flush 3 Ml Syringe) 3 ml IVFLUSH QSHIFT [facility] Last Admin: 04/16/24 20:47 Dose: 3 ml Documented By: JUAN Vitamin D (Cholecalciferol (Vitamin D3) 25 Mcg Tablet) 50 mcg PO DAILY [facility] 04/16/24 03:18 04/16/24 03:18 Labs: Laboratory Results - last 24 hr 04/16/24 04/16/24 04/16/24 11:37 16:19 20:37 POC Glucose 119 H 128 H 156 H Microbiology Microbiology Results: Microbiology 04/15/24 22:10 Blood Culture - Preliminary Blood - Venous No growth after 24 hours. 04/15/24 22:00 Blood Culture - Preliminary Blood - Venous No growth after 24 hours. Assessment and Plan (1) Gastritis: Status: Acute (2) Acute exacerbation of chronic obstructive pulmonary disease: Status: Acute Plan 63-year-old female with pertinent history of chronic hypoxia due to COPD on 2 L supplemental oxygen, hypertension, hyperlipidemia, sqd-teuvoar-xirbwwgoo diabetes mellitus, gastroesophageal reflux disease who presents to the emergency department complaining of abdominal pain and dyspnea. Acute on chronic hypoxia due to exacerbation of COPD in the setting of pneumonia continue supplemental oxygen, on 2 liters at home. continue Rocephin and azithromycin Continue systemic steroids. Scheduled and p.r.n. DuoNebs. Continue home inhaler Acute lactic acidosis due to albuterol use and hypoxia. No severe sepsis Epigastric pain Does have symptoms of gastroesophageal reflux disease. Likely gastritis. CT abdomen/pelvis neg We will consult GI for possible EGD Renal cyst Renal ultrasound to further assess Pvl-oaevxbe-tlguvotum diabetes mellitus with hyperglycemia Continue sliding scale, ADA diet Mixed hyperlipidemia On statin Gastroesophageal reflux disease On PPI Hypertension Continue home antihypertensives Mood disorder Continue home mood stabilizers DVT prophylaxis: Lovenox Attending Dr. Forman Full code Quality Stroke Does the patient have a stroke diagnosis?: No VTE Prior VTE?: No VTE Risk Level:: Medical - moderate - high VTE Device Contraindication: Treatment Not Indicated VTE Drug Contraindication: N/A - Med Ordered
[2024-04-17 08:13] LABS: Glucose, Whole Blood 170 mg/dL (60-115)
[2024-04-17] MEDS: 0.9 % Sodium Chloride Flush 3 ML SYRINGE IVFLUSH ×3 (08:29→19:36)
[2024-04-17] MEDS: amLODIPine Besylate 5 MG TABLET PO (08:30)
[2024-04-17] MEDS: Baclofen 10 MG TABLET PO ×3 (08:30→19:36)
[2024-04-17] MEDS: Losartan Potassium 50 MG TABLET PO (08:31)
[2024-04-17] MEDS: SITagliptin Phosphate 100 MG TABLET PO (08:31)
[2024-04-17] MEDS: metFORMIN HCl 1,000 MG TABLET 1000 MG PO ×2 (08:31→19:36)
[2024-04-17] MEDS: Azithromycin 500 MG in 0.9 % Sodium Chloride 250 ML 125 MG IV (08:31)
[2024-04-17] MEDS: Metoclopramide HCl 10 MG TABLET PO ×3 (08:31→16:55)
[2024-04-17] MEDS: Insulin Lispro 100 UNIT/ML 3 ML VIAL SUBCUT ×2 (08:32→16:55)
[2024-04-17] MEDS: Enoxaparin Sodium 40 MG/0.4 ML SYRINGE SUBCUT (08:32)
[2024-04-17] MEDS: predniSONE 20 MG TABLET 40 MG PO (08:33)
[2024-04-17] MEDS: Gabapentin 400 MG CAPSULE 800 MG PO ×3 (08:33→19:36)
[2024-04-17] MEDS: Cholecalciferol (Vitamin D3) 25 MCG TABLET 50 MCG PO (08:33)
[2024-04-17] MEDS: Atorvastatin Calcium 20 MG TABLET PO (08:33)
--- NOTE | 2024-04-17 09:23 | PM.GICN ---
History of Present Illness Data of Consult Service Date: 04/17/24 Requesting physician: Jessica Paulson Primary Care Provider: Magalie Nicolas MD HPI Reason for consult: epigastric pain 63-year-old female with history of chronic hypoxia due to COPD on 2 L supplemental oxygen, hypertension, hyperlipidemia, [id number] diabetes mellitus, gastroesophageal reflux disease, tobacco use who I am seeing for epigastric pain she initially presented with main c/o worsening exertional dyspnea with productive cough and wheezing. She says this is improved now and she is almost at her baseline. She did also admit to feeling hungry but unable to eat, she cant really be more specific, has mild nausea, denies vomiting, describes a mild epigastric discomfort but denies pain per se, no exacerbating factors. She denies dysphagia or reflux, and no abdominal distention, diarrhea or constipation, melena. she had egd 2015 per chart review for similar sx, large amount of food noted in stomach, subsequent GES 2019 pos for gastroparesis Review of Systems Review of Systems: Constitutional : No Weight loss, No Fever, No Chills ENT/Mouth : No sore throat, No Rhinorrhea Eyes: No Swelling, No Redness Cardiovascular : No Chest Pain, + SOB, No Edema Respiratory : + Cough, + Sputum, + Wheezing Gastrointestinal : see HPI Genitourinary : NO Dysuria, No Urinary Frequency, No Hematuria, No Urgency Musculoskeletal : no joint pain, No Myalgias, No Joint Swelling Skin : No Skin Lesions, No rash Neuro : No Weakness, No Numbness, No Dizziness, No Headache Psych : No Anxiety/Panic, No Depression Heme/Lymph: No Bruising, No Lymphadenopathy Endocrine : No Polyuria, No Polydipsia All other systems reviewed and are negative. COUNT INCLUDES [facility] Past Medical History Medical History Chronic lung disease COPD (chronic obstructive pulmonary disease) Type 2 diabetes mellitus without complication, with no history of insulin use Mixed dyslipidemia Essential hypertension GERD (gastroesophageal reflux disease) Gastroparesis Diastolic CHF with preserved left ventricular function, NYHA class 2 Chronic hypercapnic respiratory failure Type 2 diabetes mellitus with other diabetic kidney complication Type 2 diabetes mellitus without complication, with no history of insulin use Smoker unmotivated to quit Postlaminectomy syndrome of cervical region Seasonal allergic rhinitis Degenerative disc disease, cervical Postmenopause Dyslipidemia Family History Family History Mother Diabetes Sister Diabetes Mental health disorder Brother Diabetes Father HTN (hypertension) Surgical History Surgical History H/O cervical discectomy History of esophagogastroduodenoscopy (EGD) Hx of colonoscopy Social History Social History Household Members: Significant Other Housing: Other Housing Other:: mobile home Do you presently have visiting nurse or other home services: No (language tutor's) Alcohol intake: former Comment: Commode/ Hi Flow O2 Patient Tobacco Use Status: Current everyday Tobacco user Tobacco use type: Cigarette Cigarette Packs Per Day: 1 Cigarettes Per Day: 20.0 Years Smoked: 50 e-Cigarette/Vaping Use: Never Used Second Hand Smoke Exposure: Yes Advance Directives Date on File: 09/20/21 service: No Current occupational status: unemployed Cognitive needs: No Hearing needs: No Vision needs: Yes Meds Allergies Allergy/AdvReac Type Severity Reaction Status Date / Time amoxicillin [AMOXICILLIN] Allergy Intermediate RASH Verified 04/15/24 18:14 Active Medications: Current Medications Acetaminophen (Acetaminophen 325 Mg Tablet) 650 mg PO Q6H PRN PRN Reason: Pain, Mild (Pain Scale 1-3), fever or headache Albuterol/Ipratropium (Albuterol/Iprat 2.5/0.5mg 3 Ml Ampul.Neb) 3 ml INHALE RQ4H WHILE AWAKE ON LICENSE OF [facility] Last Admin: 04/17/24 07:29 Dose: 3 ml Albuterol/Ipratropium (Albuterol/Iprat 2.5/0.5mg 3 Ml Ampul.Neb) 3 ml INHALE Q4H PRN PRN Reason: Wheezing Amlodipine Besylate (Amlodipine Besylate 5 Mg Tablet) 5 mg PO DAILY ON LICENSE OF [facility]; Protocol Last Admin: 04/17/24 08:30 Dose: 5 mg Aspirin (Aspirin Enteric Coated 81 Mg Tablet.) 81 mg PO BEDTIME ON LICENSE OF [facility] Atorvastatin Calcium (Atorvastatin Calcium 20 Mg Tablet) 20 mg PO DAILY ON LICENSE OF [facility] Last Admin: 04/17/24 08:33 Dose: 20 mg Baclofen (Baclofen 10 Mg Tablet) 10 mg PO TID ON LICENSE OF [facility] Last Admin: 04/17/24 08:30 Dose: 10 mg Calcium Carbonate (Calcium Carbonate 750 Mg Tab.Chew) 750 mg PO Q4H PRN PRN Reason: Heartburn Enoxaparin Sodium (Enoxaparin Sodium 40 Mg/0.4 Ml Syringe) 40 mg SUBCUT Q24H ON LICENSE OF [facility] Last Admin: 04/17/24 08:32 Dose: 40 mg Fluticasone Propionate (Fluticasone Propionate 250 Mcg Blst.W.Dev) 1 puff INHALE RBID ON LICENSE OF [facility] Gabapentin (Gabapentin 400 Mg Capsule) 800 mg PO TID ON LICENSE OF [facility] Last Admin: 04/17/24 08:33 Dose: 800 mg Glucose (Glucose Gel 15 Gm Gel..Gram.) 15 gm PO Q15M PRN; Protocol PRN Reason: per Hypoglycemia Standing Ord. Ceftriaxone Sodium 1 gm/ (Sodium Chloride) 50 mls @ 100 mls/hr IV Q24H ON LICENSE OF [facility] Last Infusion: 04/17/24 06:44 Dose: Infused Azithromycin 500 mg/ Sodium (Chloride) 250 mls @ 125 mls/hr IV Q24H ON LICENSE OF [facility] Last Admin: 04/17/24 08:31 Dose: 125 mls/hr Dextrose (D10) 250 mls @ 750 mls/hr IV Q15M PRN; Protocol PRN Reason: per Hypoglycemia Standing Ord. Insulin Human Lispro (Insulin Lispro 100 Unit/Ml 3 Ml Vial) 0 unit SUBCUT QIDACHS ON LICENSE OF [facility]; Protocol Last Admin: 04/17/24 08:32 Dose: 2 unit Losartan Potassium (Losartan Potassium 50 Mg Tablet) 50 mg PO DAILY ON LICENSE OF [facility]; Protocol Last Admin: 04/17/24 08:31 Dose: 50 mg Magnesium Hydroxide (Milk Of Magnesia 30 Ml Oral.Susp) 30 ml PO DAILY PRN PRN Reason: Constipation Melatonin (Melatonin 3 Mg Tablet) 6 mg PO BEDTIME PRN PRN Reason: Insomnia Last Admin: 04/16/24 20:47 Dose: 6 mg Metformin HCl (Metformin Hcl 1,000 Mg Tablet) 1,000 mg PO BID ON LICENSE OF [facility] Last Admin: 04/17/24 08:31 Dose: 1,000 mg Metoclopramide HCl (Metoclopramide Hcl 10 Mg Tablet) 10 mg PO TIDAC ON LICENSE OF [facility] Last Admin: 04/17/24 08:31 Dose: 10 mg Non-Formulary Medication (Linaclotide [Linzess]) 145 mcg PO DAILY ON LICENSE OF [facility] Omeprazole (Omeprazole 20 Mg Capsule.) 20 mg PO DAILY@0630 ON LICENSE OF [facility] Ondansetron HCl (Ondansetron Hcl 4 Mg/2 Ml Vial) 4 mg IVPUSH Q8H PRN PRN Reason: Nausea and Vomiting Pantoprazole Sodium (Pantoprazole Sodium 40 Mg/10 Ml Vial) 40 mg IVPUSH DAILY@0630 ON LICENSE OF [facility] Last Admin: 04/17/24 06:08 Dose: 40 mg Prednisone (Prednisone 20 Mg Tablet) 40 mg PO DAILY ON LICENSE OF [facility] Last Admin: 04/17/24 08:33 Dose: 40 mg Sitagliptin Phosphate (Sitagliptin Phosphate 100 Mg Tablet) 100 mg PO DAILY ON LICENSE OF [facility] Last Admin: 04/17/24 08:31 Dose: 100 mg Sodium Chloride (0.9 % Sodium Chloride Flush 3 Ml Syringe) 3 ml IVFLUSH QSHIFT ON LICENSE OF [facility] Last Admin: 04/17/24 08:29 Dose: 3 ml Vitamin D (Cholecalciferol (Vitamin D3) 25 Mcg Tablet) 50 mcg PO DAILY ON LICENSE OF [facility] Last Admin: 04/17/24 08:33 Dose: 50 mcg Home Medications ?Medication ?Instructions ?Recorded ?Confirmed ?Last Taken ?Type aspirin 81 mg tablet,delayed 81 mg PO BEDTIME 01/10/21 04/16/24 04/15/24 History release (Adult Low Dose Aspirin) umeclidinium 62.5 mcg/actuation 1 inh inhalation DAILY 03/31/21 04/16/24 04/15/24 History blister powder for inhalation albuterol sulfate 2.5 mg/3 mL 2.5 mg inhalation Q6H PRN wheezing 08/02/23 04/16/24 Unknown History (0.083 %) solution for nebulization fluticasone furoate 200 1 inh inhalation DAILY 08/25/23 04/16/24 04/15/24 History mcg/actuation blister powder for inhalation (Arnuity Ellipta) linaclotide 145 mcg capsule 145 mcg PO DAILY 02/28/24 04/16/24 04/15/24 History (Linzess) metoclopramide HCl 10 mg tablet 10 mg PO TIDAC gastroparesis 02/28/24 04/16/24 04/15/24 History (Reglan) omeprazole 20 mg capsule,delayed 20 mg PO DAILY@0630 02/28/24 04/16/2404/15/24 History release psyllium husk 0.52 gram capsule 1.04 g PO BID Constipation 02/28/24 04/16/24 04/15/24 History (Fiber Laxative (psyllium husk)) Physical Exam Vital Signs: Vital Signs: Last Vital Signs Temp 96.9 F 04/17/24 07:58 Pulse 80 04/17/24 07:58 Resp 18 04/17/24 07:58 BP 141/62 H 04/17/24 07:58 Pulse Ox 95 04/17/24 07:58 O2 Del Method Nasal Cannula 04/17/24 07:58 O2 Flow Rate 2 04/17/24 07:58 Oxygen Flow Rate 3 04/15/24 18:10 BMI result Body Mass Index 25.3 EXAM: GENERAL: The patient is plethoric, uses nasal O2 VITAL SIGNS:see workflow HEENT: Nonicteric sclerae, PERRLA, EOMI. Oropharynx clear. Moist mucous membranes. Conjunctivae appear well perfused. No thyroid mass. CHEST: Chest wall is nontender. HEART: Regular rate and rhythm without murmurs. LUNGS: wheezing b/ with reduced a/e b/l ABDOMEN: Soft, positive bowel sounds, mildly tender epigastrium, no organomegaly.no flank tenderness SKIN: No rash, no excessive bruising, petechiae, or purpura. NEUROLOGIC: Cranial nerves II-XII intact without motor/sensory deficit. Psych: normal affect Results Labs 04/16/24 03:18 04/16/24 03:18 Microbiology Microbiology Results: Microbiology 04/15/24 22:10 Blood - Venous Blood Culture - Preliminary No growth after 24 hours. 04/15/24 22:00 Blood - Venous Blood Culture - Preliminary No growth after [address] scan - chest: Attestation: I personally reviewed and interpreted this imaging study as follows: (mild emphysematous changes right lung, cxr normal) Assessment and Plan (1) Acute exacerbation of chronic obstructive pulmonary disease: Status: Acute Plan 1/ Non specific upper Gi sx, and vague history from patient, prior imaging and EGD as above, underlying GES, no obvious cause for this, could also be havign sx from nsaid use, metformin and other meds she takes - PLAN: 1/ Encourage PO diet as tolerated, can try protein shakes and soft diet if better tolerated 2/ Ba swallow and follow thru--hold EGD right now due to her acute COPD exacerbation and high anesthesia risk 3/ consider increasing PPI dose to 40 mg daily 4/ small meals, low fiber diet, avoid greasy, fat food 5/ check A1AT level Procedures Date of Service Date of Service: 04/17/24
[2024-04-17 11:19] LABS: Glucose, Whole Blood 133 mg/dL (60-115)
--- NOTE | 2024-04-17 15:57 | MHC.CM.PN ---
PT REPORTS SHE LIVES WITH HER S/O SHE HAS [employer] 1X/WEEK PT HAS HOME O2 FROM [facility] HCP ON FILE PCP: ASIF PHAN DCP: HOME RESUME [employer]
[2024-04-17 16:12] LABS: Glucose, Whole Blood 239 mg/dL (60-115)
[2024-04-17] MEDS: Aspirin Enteric Coated 81 MG TABLET.DR PO (19:36)
[2024-04-17 20:14] LABS: Glucose, Whole Blood 141 mg/dL (60-115)
[2024-04-17] MEDS: Fluticasone Propionate 250 MCG BLST.W.DEV 1 PUFF INHALE (21:08)
[2024-04-18] VITALS (9 sets, daily range): BP systolic 126–178; BP diastolic 62–76; PULSE 68–80; RESP 12–18; TEMP 36.1–36.6; O2SAT 95–100
[2024-04-18] MEDS: Pantoprazole Sodium 40 MG/10 ML VIAL IVPUSH (06:18)
[2024-04-18] MEDS: cefTRIAXone sodium 1 GM in 0.9 % Sodium Chloride 50 ML IV (06:18)
[2024-04-18 07:27] LABS: Glucose, Whole Blood 116 mg/dL (60-115)
--- NOTE | 2024-04-18 08:08 | P.PNIM_ITS ---
Subjective Subjective Date of Service: 04/18/24 Review of Systems Follow up Pna Breathing is better no pain or discomfort Physical Exam 2 Vital Signs: Vital Signs: Last Vital Signs Temp 97.1 F 04/18/24 07:47 Pulse 70 04/18/24 07:47 Resp 16 04/18/24 07:47 BP 133/63 04/18/24 07:47 Pulse Ox 97 04/18/24 07:47 O2 Del Method Nasal Cannula 04/18/24 07:47 O2 Flow Rate 2 04/18/24 07:47 Oxygen Flow Rate 3 04/15/24 18:10 BMI result Body Mass Index 25.3 Appearing in no acute distress lung sounds are clear to auscultation heart regular rate rhythm, clear S1, S2 positive bowel sounds, abdomen is soft, nontender neuro patient is alert x3, no focal deficits Objective Data Active Medications Acetaminophen (Acetaminophen 325 Mg Tablet) 650 mg PO Q6H PRN PRN Reason: Pain, Mild (Pain Scale 1-3), fever or headache Albuterol/Ipratropium (Albuterol/Iprat 2.5/0.5mg 3 Ml Ampul.Neb) 3 ml INHALE RQ4H WHILE AWAKE [facility] Last Admin: 04/17/24 21:08 Dose: 3 ml Documented By: GWYN Albuterol/Ipratropium (Albuterol/Iprat 2.5/0.5mg 3 Ml Ampul.Neb) 3 ml INHALE Q4H PRN PRN Reason: Wheezing Amlodipine Besylate (Amlodipine Besylate 5 Mg Tablet) 5 mg PO DAILY [facility]; Protocol Last Admin: 04/17/24 08:30 Dose: 5 mg Documented By: RIVAS Aspirin (Aspirin Enteric Coated 81 Mg Tablet.) 81 mg PO BEDTIME [facility] Last Admin: 04/17/24 19:36 Dose: 81 mg Documented By: JUAN Atorvastatin Calcium (Atorvastatin Calcium 20 Mg Tablet) 20 mg PO DAILY [facility] Last Admin: 04/17/24 08:33 Dose: 20 mg Documented By: RIVAS Baclofen (Baclofen 10 Mg Tablet) 10 mg PO TID [facility] Last Admin: 04/17/24 19:36 Dose: 10 mg Documented By: JUAN Calcium Carbonate (Calcium Carbonate 750 Mg Tab.Chew) 750 mg PO Q4H PRN PRN Reason: Heartburn Enoxaparin Sodium (Enoxaparin Sodium 40 Mg/0.4 Ml Syringe) 40 mg SUBCUT Q24H [facility] Last Admin: 04/17/24 08:32 Dose: 40 mg Documented By: RIVAS Fluticasone Propionate (Fluticasone Propionate 250 Mcg Blst.W.Dev) 1 puff INHALE RBID [facility] Last Admin: 04/17/24 21:08 Dose: 1 puff Documented By: GWYN Gabapentin (Gabapentin 400 Mg Capsule) 800 mg PO TID [facility] Last Admin: 04/17/24 19:36 Dose: 800 mg Documented By: JUAN Glucose (Glucose Gel 15 Gm Gel..Gram.) 15 gm PO Q15M PRN; Protocol PRN Reason: per Hypoglycemia Standing Ord. Ceftriaxone Sodium 1 gm/ (Sodium Chloride) 50 mls @ 100 mls/hr IV Q24H [facility] Last Infusion: 04/18/24 06:53 Dose: Infused Documented By: JUAN Azithromycin 500 mg/ Sodium (Chloride) 250 mls @ 125 mls/hr IV Q24H [facility] Last Infusion: 04/17/24 10:45 Dose: Infused Documented By: RIVAS Dextrose (D10) 250 mls @ 750 mls/hr IV Q15M PRN; Protocol PRN Reason: per Hypoglycemia Standing Ord. Insulin Human Lispro (Insulin Lispro 100 Unit/Ml 3 Ml Vial) 0 unit SUBCUT QIDACHS [facility]; Protocol Last Admin: 04/18/24 07:33 Dose: Not Given Documented By: RIVAS Non-Admin Reason: No Insulin Coverage Losartan Potassium (Losartan Potassium 50 Mg Tablet) 50 mg PO DAILY [facility]; Protocol Last Admin: 04/17/24 08:31 Dose: 50 mg Documented By: RIVAS Magnesium Hydroxide (Milk Of Magnesia 30 Ml Oral.Susp) 30 ml PO DAILY PRN PRN Reason: Constipation Melatonin (Melatonin 3 Mg Tablet) 6 mg PO BEDTIME PRN PRN Reason: Insomnia Last Admin: 04/16/24 20:47 Dose: 6 mg Documented By: JUAN Metformin HCl (Metformin Hcl 1,000 Mg Tablet) 1,000 mg PO BID [facility] Last Admin: 04/17/24 19:36 Dose: 1,000 mg Documented By: JUAN Metoclopramide HCl (Metoclopramide Hcl 10 Mg Tablet) 10 mg PO TIDAC [facility] Last Admin: 04/17/24 16:55 Dose: 10 mg Documented By: JUAN Non-Formulary Medication (Linaclotide [Linzess]) 145 mcg PO DAILY [facility] Omeprazole (Omeprazole 20 Mg Capsule.Dr) 20 mg PO DAILY@06 [facility] Last Admin: 04/18/24 06:21 Dose: Not Given Documented By: JUAN Non-Admin Reason: NPO Ondansetron HCl (Ondansetron Hcl 4 Mg/2 Ml Vial) 4 mg IVPUSH Q8H PRN PRN Reason: Nausea and Vomiting Pantoprazole Sodium (Pantoprazole Sodium 40 Mg/10 Ml Vial) 40 mg IVPUSH DAILY@629 [facility] Last Admin: 04/18/24 06:18 Dose: 40 mg Documented By: JUAN Prednisone (Prednisone 20 Mg Tablet) 40 mg PO DAILY [facility] Last Admin: 04/17/24 08:33 Dose: 40 mg Documented By: RIVAS Sitagliptin Phosphate (Sitagliptin Phosphate 100 Mg Tablet) 100 mg PO DAILY [facility] Last Admin: 04/17/24 08:31 Dose: 100 mg Documented By: RIVAS Sodium Chloride (0.9 % Sodium Chloride Flush 3 Ml Syringe) 3 ml IVFLUSH QSHIFT [facility] Last Admin: 04/17/24 19:36 Dose: 3 ml Documented By: JUAN Vitamin D (Cholecalciferol (Vitamin D3) 25 Mcg Tablet) 50 mcg PO DAILY [facility] Last Admin: 04/17/24 08:33 Dose: 50 mcg Documented By: RIVAS Labs 04/16/24 03:18 04/16/24 03:18 Labs: Laboratory Results - last 24 hr 04/17/24 04/17/24 04/17/24 08:02 11:11 16:01 POC Glucose 170 H 133 H 239 H 04/17/24 04/18/24 20:07 07:18 POC Glucose 141 H 116 H Microbiology Microbiology Results: Microbiology 04/15/24 22:10 Blood Culture - Preliminary Blood - Venous No growth after 48 hours. 04/15/24 22:00 Blood Culture - Preliminary Blood - Venous No growth after 48 hours. Assessment and Plan (1) Gastritis: Status: Acute (2) Acute exacerbation of chronic obstructive pulmonary disease: Status: Acute Plan 63-year-old female with pertinent history of chronic hypoxia due to COPD on 2 L supplemental oxygen, hypertension, hyperlipidemia, iti-vkqapej-ukihfnmlv diabetes mellitus, gastroesophageal reflux disease who presents to the emergency department complaining of abdominal pain and dyspnea. Epigastric pain Does have symptoms of gastroesophageal reflux disease. Likely gastritis. CT abdomen/pelvis neg GI> plan for barium swallow Renal cyst Renal ultrasound>3mm mass noted urology consultation Acute on chronic hypoxia due to exacerbation of COPD in the setting of pneumonia continue supplemental oxygen, on 2 liters at home. continue Rocephin and azithromycin Continue systemic steroids. Scheduled and p.r.n. DuoNebs. Continue home inhaler Acute lactic acidosis due to albuterol use and hypoxia. No severe sepsis Sif-rqdrnnx-ukocnvsij diabetes mellitus with hyperglycemia Continue sliding scale, ADA diet Mixed hyperlipidemia On statin Gastroesophageal reflux disease On PPI Hypertension Continue home antihypertensives Mood disorder Continue home mood stabilizers DVT prophylaxis: Jody Attending Dr. Hartman Full code Quality Stroke Does the patient have a stroke diagnosis?: No VTE Prior VTE?: No VTE Risk Level:: Medical - moderate - high VTE Device Contraindication: Treatment Not Indicated VTE Drug Contraindication: N/A - Med Ordered
[2024-04-18] MEDS: 0.9 % Sodium Chloride Flush 3 ML SYRINGE IVFLUSH ×3 (08:33→20:35)
[2024-04-18] MEDS: Fluticasone Propionate 250 MCG BLST.W.DEV 1 PUFF INHALE ×2 (08:45→20:09)
[2024-04-18] MEDS: Albuterol/Iprat 2.5/0.5MG 3 ML AMPUL.NEB INHALE ×2 (08:46→20:09)
[2024-04-18] MEDS: amLODIPine Besylate 5 MG TABLET PO (08:51)
[2024-04-18] MEDS: Gabapentin 400 MG CAPSULE 800 MG PO ×3 (08:53→20:35)
[2024-04-18] MEDS: Atorvastatin Calcium 20 MG TABLET PO (08:53)
[2024-04-18] MEDS: predniSONE 20 MG TABLET 40 MG PO (08:53)
[2024-04-18] MEDS: Baclofen 10 MG TABLET PO ×3 (08:53→20:35)
[2024-04-18] MEDS: Cholecalciferol (Vitamin D3) 25 MCG TABLET 50 MCG PO (08:53)
[2024-04-18] MEDS: Metoclopramide HCl 10 MG TABLET PO ×2 (08:54→16:22)
[2024-04-18] MEDS: Azithromycin 500 MG in 0.9 % Sodium Chloride 250 ML 125 MG IV (08:54)
[2024-04-18] MEDS: Losartan Potassium 50 MG TABLET PO (08:54)
[2024-04-18] MEDS: Enoxaparin Sodium 40 MG/0.4 ML SYRINGE SUBCUT (09:53)
--- NOTE | 2024-04-18 10:24 | PM.UROCN ---
History of Present Illness Consult details Consult date: 04/18/24 Narrative: 63-year-old female with pertinent history of chronic hypoxia due to COPD on 2 L supplemental oxygen, hypertension, hyperlipidemia, [id number]-fjbutayit diabetes mellitus, gastroesophageal reflux disease, tobacco use disorder who was admitted due to dyspnea and abdominal pain. CTAP - and renal US indeterminate small lesion right kidney Review of Systems Review of Systems: Yes all other systems are reviewed and are negative Constitutional: Constitutional: Reports no additional constitutional complaints Eyes: Eyes: Reports no additional eye complaints ENT: Reports system reviewed and no additional complaints, except as documented Cardiovascular: Cardiovascular: Reports no additional cardiovascular complaints Respiratory: Respiratory: Reports no additional respiratory complaints Gastrointestinal: Gastrointestinal: Reports no additional gastrointestinal complaints Genitourinary: Genitourinary: Reports as per HPI Musculoskeletal: Musculoskeletal: Reports no additional musculoskeletal complaints Integumentary/Breasts: Skin/Breast: Reports system reviewed and no additional complaints, except as docu Neurologic: Reports system reviewed and no additional complaints, except as documented Psychiatric: Psychiatric: Reports no additional psychiatric complaints Endocrine: Endocrine: Reports no additional endocrine complaints Hematologic/Lymphatic: Hematologic/Lymphatic: Reports no additional hematologic/lymphatic complaints Allergic/Immunologic: Allergic/Immunologic: Reports no additional allergic/immunologic complaints [facility] Past Medical History Medical History Chronic lung disease COPD (chronic obstructive pulmonary disease) Type 2 diabetes mellitus without complication, with no history of insulin use Mixed dyslipidemia Essential hypertension GERD (gastroesophageal reflux disease) Gastroparesis Diastolic CHF with preserved left ventricular function, NYHA class 2 Chronic hypercapnic respiratory failure Type 2 diabetes mellitus with other diabetic kidney complication Type 2 diabetes mellitus without complication, with no history of insulin use Smoker unmotivated to quit Postlaminectomy syndrome of cervical region Seasonal allergic rhinitis Degenerative disc disease, cervical Postmenopause Dyslipidemia Family History Family History Mother Diabetes Sister Diabetes Mental health disorder Brother Diabetes Father HTN (hypertension) Surgical History Surgical History H/O cervical discectomy History of esophagogastroduodenoscopy (EGD) Hx of colonoscopy Social History Social History Household Members: Significant Other Housing: Other Housing Other:: mobile home Do you presently have visiting nurse or other 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 services: 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) Alcohol intake: former Comment: Commode/ Hi Flow O2 Patient Tobacco Use Status: Current everyday Tobacco user Tobacco use type: Cigarette Cigarette Packs Per Day: 1 Cigarettes Per Day: 20.0 Years Smoked: 50 e-Cigarette/Vaping Use: Never Used Second Hand Smoke Exposure: Yes Advance Directives Date on File: 09/20/21 service: No Current occupational status: unemployed Cognitive needs: No Hearing needs: No Vision needs: Yes Meds Allergies Allergy/AdvReac Type Severity Reaction Status Date / Time amoxicillin [AMOXICILLIN] Allergy Intermediate RASH Verified 04/15/24 18:14 Active Medications: Current Medications Acetaminophen (Acetaminophen 325 Mg Tablet) 650 mg PO Q6H PRN PRN Reason: Pain, Mild (Pain Scale 1-3), fever or headache Albuterol/Ipratropium (Albuterol/Iprat 2.5/0.5mg 3 Ml Ampul.Neb) 3 ml INHALE RQ4H WHILE AWAKE [facility] Last Admin: 04/18/24 08:46 Dose: 3 ml Albuterol/Ipratropium (Albuterol/Iprat 2.5/0.5mg 3 Ml Ampul.Neb) 3 ml INHALE Q4H PRN PRN Reason: Wheezing Amlodipine Besylate (Amlodipine Besylate 5 Mg Tablet) 5 mg PO DAILY [facility]; Protocol Last Admin: 04/18/24 08:51 Dose: 5 mg Aspirin (Aspirin Enteric Coated 81 Mg Tablet.) 81 mg PO BEDTIME [facility] Last Admin: 04/17/24 19:36 Dose: 81 mg Atorvastatin Calcium (Atorvastatin Calcium 20 Mg Tablet) 20 mg PO DAILY [facility] Last Admin: 04/18/24 08:53 Dose: 20 mg Baclofen (Baclofen 10 Mg Tablet) 10 mg PO TID [facility] Last Admin: 04/18/24 08:53 Dose: 10 mg Calcium Carbonate (Calcium Carbonate 750 Mg Tab.Chew) 750 mg PO Q4H PRN PRN Reason: Heartburn Enoxaparin Sodium (Enoxaparin Sodium 40 Mg/0.4 Ml Syringe) 40 mg SUBCUT Q24H [facility] Last Admin: 04/18/24 09:53 Dose: 40 mg Fluticasone Propionate (Fluticasone Propionate 250 Mcg Blst.W.Dev) 1 puff INHALE RBID [facility] Last Admin: 04/18/24 08:45 Dose: 1 puff Gabapentin (Gabapentin 400 Mg Capsule) 800 mg PO TID [facility] Last Admin: 04/18/24 08:53 Dose: 800 mg Glucose (Glucose Gel 15 Gm Gel..Gram.) 15 gm PO Q15M PRN; Protocol PRN Reason: per Hypoglycemia Standing Ord. Ceftriaxone Sodium 1 gm/ (Sodium Chloride) 50 mls @ 100 mls/hr IV Q24H [facility] Last Infusion: 04/18/24 06:53 Dose: Infused Azithromycin 500 mg/ Sodium (Chloride) 250 mls @ 125 mls/hr IV Q24H [facility] Last Admin: 04/18/24 08:54 Dose: 125 mls/hr Dextrose (D10) 250 mls @ 750 mls/hr IV Q15M PRN; Protocol PRN Reason: per Hypoglycemia Standing Ord. Insulin Human Lispro (Insulin Lispro 100 Unit/Ml 3 Ml Vial) 0 unit SUBCUT QIDACHS [facility]; Protocol Last Admin: 04/18/24 07:33 Dose: Not Given Losartan Potassium (Losartan Potassium 50 Mg Tablet) 50 mg PO DAILY [facility]; Protocol Last Admin: 04/18/24 08:54 Dose: 50 mg Magnesium Hydroxide (Milk Of Magnesia 30 Ml Oral.Susp) 30 ml PO DAILY PRN PRN Reason: Constipation Melatonin (Melatonin 3 Mg Tablet) 6 mg PO BEDTIME PRN PRN Reason: Insomnia Last Admin: 04/16/24 20:47 Dose: 6 mg Metformin HCl (Metformin Hcl 1,000 Mg Tablet) 1,000 mg PO BID [facility] Last Admin: 04/18/24 09:04 Dose: Not Given Metoclopramide HCl (Metoclopramide Hcl 10 Mg Tablet) 10 mg PO TIDAC [facility] Last Admin: 04/18/24 08:54 Dose: 10 mg Non-Formulary Medication (Linaclotide [Linzess]) 145 mcg PO DAILY [facility] Omeprazole (Omeprazole 20 Mg Capsule.Dr) 20 mg PO DAILY@0630 [facility] Last Admin: 04/18/24 06:21 Dose: Not Given Ondansetron HCl (Ondansetron Hcl 4 Mg/2 Ml Vial) 4 mg IVPUSH Q8H PRN PRN Reason: Nausea and Vomiting Pantoprazole Sodium (Pantoprazole Sodium 40 Mg/10 Ml Vial) 40 mg IVPUSH DAILY@06 [facility] Last Admin: 04/18/24 06:18 Dose: 40 mg Prednisone (Prednisone 20 Mg Tablet) 40 mg PO DAILY [facility] Last Admin: 04/18/24 08:53 Dose: 40 mg Sitagliptin Phosphate (Sitagliptin Phosphate 100 Mg Tablet) 100 mg PO DAILY [facility] Last Admin: 04/18/24 09:04 Dose: Not Given Sodium Chloride (0.9 % Sodium Chloride Flush 3 Ml Syringe) 3 ml IVFLUSH QSHIFT [facility] Last Admin: 04/18/24 08:33 Dose: 3 ml Vitamin D (Cholecalciferol (Vitamin D3) 25 Mcg Tablet) 50 mcg PO DAILY [facility] Last Admin: 04/18/24 08:53 Dose: 50 mcg Home Medications ?Medication ?Instructions ?Recorded ?Confirmed ?Last Taken ?Type aspirin 81 mg tablet,delayed 81 mg PO BEDTIME 01/10/21 04/16/24 04/15/24 History release (Adult Low Dose Aspirin) umeclidinium 62.5 mcg/actuation 1 inh inhalation DAILY 03/31/21 04/16/24 04/15/24 History blister powder for inhalation albuterol sulfate 2.5 mg/3 mL 2.5 mg inhalation Q6H PRN wheezing 08/02/23 04/16/24 Unknown History (0.083 %) solution for nebulization fluticasone furoate 200 1 inh inhalation DAILY 08/25/23 04/16/24 04/15/24 History mcg/actuation blister powder for inhalation (Arnuity Ellipta) linaclotide 145 mcg capsule 145 mcg PO DAILY 02/28/24 04/16/24 04/15/24 History (Linzess) metoclopramide HCl 10 mg tablet 10 mg PO TIDAC gastroparesis 02/28/24 04/16/24 04/15/24 History (Reglan) omeprazole 20 mg capsule,delayed 20 mg PO DAILY@0630 02/28/24 04/16/24 04/15/24 History release psyllium husk 0.52 gram capsule 1.04 g PO BID Constipation 02/28/24 04/16/24 04/15/24 History (Fiber Laxative (psyllium husk)) Physical Exam Vital Signs: Vital Signs: Last Vital Signs Temp 97.1 F 09/03/24 07:47 Pulse 76 04/18/24 08:46 Resp 15 04/18/24 08:46 BP 151/68 H 04/18/24 08:54 Pulse Ox 97 04/18/24 07:47 O2 Del Method Nasal Cannula 04/18/24 07:47 O2 Flow Rate 2 04/18/24 07:47 Oxygen Flow Rate 3 04/15/24 18:10 BMI result Body Mass Index 25.3 Const: General: cooperative, healthy appearing and no acute distress Orientation/consciousness: patient oriented x3 HEENT: Head: Yes normal to inspection, Yes normocephalic and Yes atraumatic Eyes: Conjunctivae: conjunctivae normal Neck: Neck: Yes normal visual inspection and Yes trachea midline Chest: Chest palpation & inspection: normal inspection of the chest Resp: Other: Nasal cannula Effort & Inspection: normal respiratory effort Cardio: Rate: regular rate GI: Inspection: Yes normal to inspection Palpation (GI): Soft to palpation Neuro: General: patient oriented x3 Psych: Appearance: grossly normal Results Labs 04/16/24 03:18 04/16/24 03:18 Labs: Abnormal lab results 04/17/24 04/17/24 04/17/24 Range/Units 11:11 16:01 20:07 POC Glucose 133 H 239 H 141 H (60-115) mg/dL 04/18/24 Range/Units 07:18 POC Glucose 116 H (60-115) mg/dL All other labs normal. Assessment and Plan (1) Renal mass of unknown nature: Status: Acute Plan MRI abd or CT abd renal mass protocol; wo/w IV contrast Procedures Date of Service Date of Service: 04/18/24
[2024-04-18 11:51] LABS: Glucose, Whole Blood 149 mg/dL (60-115)
--- NOTE | 2024-04-18 13:06 | P.CDIM_ITS ---
PROVIDER RESPONSE TEXT: To clarify, the appropriate diagnosis supported by the clinical indicators: Acute on chronic respiratory failure with hypoxia: probably QUERY TEXT: PHYSICIAN'S DOCUMENTATION REQUEST Date of Query: 04/18/2024 12:51 PM EDT Patient Name: Maria Elena Kingston Admit Date: 04/16/2024 Dear Jessica Paulson [facility], A review of the medical record indicates additional documentation may be needed. Please review below and update the documentation accordingly. Clinical Indicators: Progress notes within the Plan: Acute on chronic hypoxia due to exacerbation of COPD in the setting o f pneumonia. Patient is on 2 liters supplemental oxygen at home. Pulse ox 90L RR21 placed on 4 liters NC Was feeling short of breath and using inhalers at home. Continues to smoke. PMH: Chronic respiratory failure If possible, please further clarify further specifics of the noted hypoxia: Acute on chronic respiratory failure with hypoxia possible, suspected, probable Acute on chronic hypoxia Other (explain) Clinically unable to determine (explain) Thank you, Briana Cordero, CCS, CDIS Use of terms such as suspected, likely, concern for, or probable (associated with a specific diagnosi s that is being evaluated, monitored, or treated as if it exists) are acceptable and can be coded in the inpatient se tting, when documented at the time of discharge. Please use your independent medical judgment in providing your response. THIS QUERY IS PART OF THE PERMANENT MEDICAL RECORD
--- NOTE | 2024-04-18 16:19 | MHC.CM.PN ---
consult for Renal mass. Imaging has been ordered. CM will follow for discharge. DP Home with resumption of [employer] services. Patient will arrange for private transport home.
[2024-04-18 16:27] LABS: Glucose, Whole Blood 193 mg/dL (60-115)
[2024-04-18] MEDS: iohexoL 350 MG/ML 100 ML INFUS..BTL 85 ML IV (16:41)
[2024-04-18] MEDS: Insulin Lispro 100 UNIT/ML 3 ML VIAL SUBCUT (17:05)
[2024-04-18 20:24] LABS: Glucose, Whole Blood 136 mg/dL (60-115)
[2024-04-18] MEDS: metFORMIN HCl 1,000 MG TABLET 1000 MG PO (20:35)
[2024-04-18] MEDS: Aspirin Enteric Coated 81 MG TABLET.DR PO (20:35)
[2024-04-19] VITALS (8 sets, daily range): BP systolic 123–153; BP diastolic 57–67; PULSE 73–87; RESP 12–18; TEMP 36.2–36.8; O2SAT 92–100
[2024-04-19] MEDS: Pantoprazole Sodium 40 MG/10 ML VIAL IVPUSH (06:08)
[2024-04-19] MEDS: Omeprazole 20 MG CAPSULE.DR PO (06:09)
[2024-04-19] MEDS: cefTRIAXone sodium 1 GM in 0.9 % Sodium Chloride 50 ML IV (06:11)
[2024-04-19 07:40] LABS: Glucose, Whole Blood 117 mg/dL (60-115)
[2024-04-19] MEDS: Albuterol/Iprat 2.5/0.5MG 3 ML AMPUL.NEB INHALE ×3 (08:18→20:13)
[2024-04-19] MEDS: Fluticasone Propionate 250 MCG BLST.W.DEV 1 PUFF INHALE ×2 (08:18→20:13)
[2024-04-19] MEDS: Atorvastatin Calcium 20 MG TABLET PO (09:01)
[2024-04-19] MEDS: Cholecalciferol (Vitamin D3) 25 MCG TABLET 50 MCG PO (09:01)
[2024-04-19] MEDS: amLODIPine Besylate 5 MG TABLET PO (09:01)
[2024-04-19] MEDS: Metoclopramide HCl 10 MG TABLET PO ×3 (09:01→17:37)
[2024-04-19] MEDS: Gabapentin 400 MG CAPSULE 800 MG PO ×3 (09:01→20:57)
[2024-04-19] MEDS: predniSONE 20 MG TABLET 40 MG PO (09:02)
[2024-04-19] MEDS: Losartan Potassium 50 MG TABLET PO (09:02)
[2024-04-19] MEDS: Enoxaparin Sodium 40 MG/0.4 ML SYRINGE SUBCUT (09:02)
[2024-04-19] MEDS: Baclofen 10 MG TABLET PO ×3 (09:02→20:57)
[2024-04-19] MEDS: Azithromycin 500 MG in 0.9 % Sodium Chloride 250 ML 125 MG IV (09:03)
[2024-04-19] MEDS: 0.9 % Sodium Chloride Flush 3 ML SYRINGE IVFLUSH ×2 (09:04→15:54)
[2024-04-19 11:35] LABS: Glucose, Whole Blood 188 mg/dL (60-115)
[2024-04-19] MEDS: Insulin Lispro 100 UNIT/ML 3 ML VIAL SUBCUT ×3 (11:58→20:58)
--- NOTE | 2024-04-19 13:21 | HO.PM.IMPN ---
Subjective Subjective Date of Service: 04/19/24 Interval History: Feeling better this morning denies shortness of breath, complaining of mid abdominal discomfort, on chronic 2 L of oxygen with stable finger oximetry, has been mostly in bed since admission. Review of Systems All other system reviewed and negative. Physical Exam Vital Signs: Vital Signs: Last Vital Signs Temp 97.4 F 04/19/24 08:11 Pulse 81 04/19/24 08:20 Resp 16 04/19/24 08:20 BP 153/67 H 04/19/24 08:11 Pulse Ox 99 04/19/24 08:11 O2 Del Method Nasal Cannula 04/19/24 08:11 O2 Flow Rate 2 04/19/24 08:11 Oxygen Flow Rate 3 04/15/24 18:10 BMI result Body Mass Index 25.3 Const: Other: Gen: Awake alert in no acute distress HEENT: sclera anicteric, moist mucus membranes Neck: supple, no JVD Lungs: Clear to auscultation Heart: regular, no murmurs Abd: soft, mild mid abd discomfort with palpation, bowel sounds audible Ext: no edema Skin: warm/well-perfused Neuro: alert and oriented x3, no focal findings Psych: appropriate affect Objective Data Active Medications Acetaminophen (Acetaminophen 325 Mg Tablet) 650 mg PO Q6H PRN PRN Reason: Pain, Mild (Pain Scale 1-3), fever or headache Albuterol/Ipratropium (Albuterol/Iprat 2.5/0.5mg 3 Ml Ampul.Neb) 3 ml INHALE RQ4H WHILE AWAKE [facility] Last Admin: 04/19/24 11:17 Dose: Not Given Documented By: EDILIA Non-Admin Reason: Patient Asleep Albuterol/Ipratropium (Albuterol/Iprat 2.5/0.5mg 3 Ml Ampul.Neb) 3 ml INHALE Q4H PRN PRN Reason: Wheezing Amlodipine Besylate (Amlodipine Besylate 5 Mg Tablet) 5 mg PO DAILY [facility]; Protocol Last Admin: 04/19/24 09:01 Dose: 5 mg Documented By: RIVAS Aspirin (Aspirin Enteric Coated 81 Mg Tablet.) 81 mg PO BEDTIME [facility] Last Admin: 04/18/24 20:35 Dose: 81 mg Documented By: CEZAR Atorvastatin Calcium (Atorvastatin Calcium 20 Mg Tablet) 20 mg PO DAILY [facility] Last Admin: 04/19/24 09:01 Dose: 20 mg Documented By: RIVAS Baclofen (Baclofen 10 Mg Tablet) 10 mg PO TID [facility] Last Admin: 04/19/24 09:02 Dose: 10 mg Documented By: RIVAS Calcium Carbonate (Calcium Carbonate 750 Mg Tab.Chew) 750 mg PO Q4H PRN PRN Reason: Heartburn Enoxaparin Sodium (Enoxaparin Sodium 40 Mg/0.4 Ml Syringe) 40 mg SUBCUT Q24H [facility] Last Admin: 04/19/24 09:02 Dose: 40 mg Documented By: RIVAS Fluticasone Propionate (Fluticasone Propionate 250 Mcg Blst.W.Dev) 1 puff INHALE RBID [facility] Last Admin: 04/19/24 08:18 Dose: 1 puff Documented By: MIGUELITO Gabapentin (Gabapentin 400 Mg Capsule) 800 mg PO TID [facility] Last Admin: 04/19/24 09:01 Dose: 800 mg Documented By: RIVAS Glucose (Glucose Gel 15 Gm Gel..Gram.) 15 gm PO Q15M PRN; Protocol PRN Reason: per Hypoglycemia Standing Ord. Ceftriaxone Sodium 1 gm/ (Sodium Chloride) 50 mls @ 100 mls/hr IV Q24H [facility] Last Infusion: 04/19/24 06:49 Dose: Infused Documented By: CEZAR Azithromycin 500 mg/ Sodium (Chloride) 250 mls @ 125 mls/hr IV Q24H [facility] Last Infusion: 04/19/24 11:38 Dose: Infused Documented By: RIVAS Dextrose (D10) 250 mls @ 750 mls/hr IV Q15M PRN; Protocol PRN Reason: per Hypoglycemia Standing Ord. Insulin Human Lispro (Insulin Lispro 100 Unit/Ml 3 Ml Vial) 0 unit SUBCUT QIDACHS [facility]; Protocol Last Admin: 04/19/24 11:58 Dose: 2 unit Documented By: RIVAS Losartan Potassium (Losartan Potassium 50 Mg Tablet) 50 mg PO DAILY [facility]; Protocol Last Admin: 04/19/24 09:02 Dose: 50 mg Documented By: RIVAS Magnesium Hydroxide (Milk Of Magnesia 30 Ml Oral.Susp) 30 ml PO DAILY PRN PRN Reason: Constipation Melatonin (Melatonin 3 Mg Tablet) 6 mg PO BEDTIME PRN PRN Reason: Insomnia Last Admin: 04/16/24 20:47 Dose: 6 mg Documented By: PANCHOQC Metformin HCl (Metformin Hcl 1,000 Mg Tablet) 1,000 mg PO BID [facility] Last Admin: 04/19/24 09:11 Dose: Not Given Documented By: RIVAS Non-Admin Reason: Physician Held Med Metoclopramide HCl (Metoclopramide Hcl 10 Mg Tablet) 10 mg PO TIDAC [facility] Last Admin: 04/19/24 11:57 Dose: 10 mg Documented By: RIVAS Pt Own(Linaclotide [ Linzess] 145 Mcg Capsule) 145 mcg PO DAILY [facility] Last Admin: 04/19/24 12:26 Dose: 145 mcg Documented By: RIVAS Comments: med brought from home Omeprazole (Omeprazole 20 Mg Capsule.) 20 mg PO DAILY@0630 [facility] Last Admin: 04/19/24 06:09 Dose: 20 mg Documented By: CEZAR Ondansetron HCl (Ondansetron Hcl 4 Mg/2 Ml Vial) 4 mg IVPUSH Q8H PRN PRN Reason: Nausea and Vomiting Prednisone (Prednisone 20 Mg Tablet) 40 mg PO DAILY [facility] Last Admin: 04/19/24 09:02 Dose: 40 mg Documented By: RIVAS Sitagliptin Phosphate (Sitagliptin Phosphate 100 Mg Tablet) 100 mg PO DAILY [facility] Last Admin: 04/19/24 09:11 Dose: Not Given Documented By: RIVAS Non-Admin Reason: Physician Held Med Sodium Chloride (0.9 % Sodium Chloride Flush 3 Ml Syringe) 3 ml IVFLUSH QSHIFT [facility] Last Admin: 04/19/24 09:04 Dose: 3 ml Documented By: RIVAS Vitamin D (Cholecalciferol (Vitamin D3) 25 Mcg Tablet) 50 mcg PO DAILY [facility] Last Admin: 04/19/24 09:01 Dose: 50 mcg Documented By: RIVAS Labs 04/16/24 03:18 04/16/24 03:18 Labs: Laboratory Results - last 24 hr 04/18/24 04/18/24 04/19/24 16:22 20:16 07:35 POC Glucose 193 H 136 H 117 H 04/19/24 11:22 POC Glucose 188 H Assessment and Plan (1) Renal mass of unknown nature: Status: Acute (2) Gastritis: Status: Acute (3) Acute exacerbation of chronic obstructive pulmonary disease: Status: Acute (4) Acute on chronic hypoxic respiratory failure: Status: Acute Plan 63-year-old female with pertinent history of chronic hypoxia due to COPD on 2 L supplemental oxygen, hypertension, hyperlipidemia, [id number] diabetes mellitus, gastroesophageal reflux disease who presents to the emergency department complaining of abdominal pain and dyspnea. Epigastric pain Likely due to gastritis CT abdomen/pelvis neg Continue Prilosec increase dose to 40 mg GI> recommended small-bowel series that showed cricopharyngeal mild achalasia, esophageal dysmotility, findings suggestive of gastritis and celiac disease. Recommend outpatient GI follow-up. Renal cyst Renal ultrasound>3mm mass , Seen by Urology they recommended CT abdomen renal mass protocol, test done report pending, called Radiology for reading Acute on chronic hypoxia due to exacerbation of COPD in the setting of pneumonia continue supplemental oxygen, on 2 liters at home. on iv Rocephin and azithromycin D3 will transition to by mouth antibiotics Wean steroids. Scheduled and p.r.n. DuoNebs. Continue home inhaler Encourage out of bed and ambulation Acute lactic acidosis due to albuterol use and hypoxia. No severe sepsis [id number] diabetes mellitus with hyperglycemia Elevated blood sugars likely due to steroids, continue Januvia , hold metformin, Continue sliding scale, ADA diet Mixed hyperlipidemia On statin Hypertension Continue home antihypertensives Mood disorder Continue home mood stabilizers DVT prophylaxis: Lovenox Full code In my clinical judgment patient need continued inpatient hospitalization for management of acute on chronic hypoxic respiratory failure and abdominal pain, workup pending for renal mass. Quality Stroke Does the patient have a stroke diagnosis?: No VTE Prior VTE?: No VTE Risk Level:: Medical - moderate - high VTE Device Contraindication: Treatment Not Indicated VTE Drug Contraindication: N/A - Med Ordered
[2024-04-19 17:41] LABS: Glucose, Whole Blood 241 mg/dL (60-115)
[2024-04-19 20:36] LABS: Glucose, Whole Blood 299 mg/dL (60-115)
[2024-04-19] MEDS: Aspirin Enteric Coated 81 MG TABLET.DR PO (20:57)
[2024-04-19] MEDS: cefuroxime axetiL 500 MG TABLET PO (20:57)
[2024-04-20] VITALS (8 sets, daily range): BP systolic 100–150; BP diastolic 55–70; PULSE 64–80; RESP 16–20; TEMP 36–36.5; O2SAT 95–99
[2024-04-20] MEDS: Omeprazole 40 MG CAPSULE.DR PO (06:03)
[2024-04-20 07:23] LABS: Glucose, Whole Blood 132 mg/dL (60-115)
[2024-04-20] MEDS: Atorvastatin Calcium 20 MG TABLET PO (08:07)
[2024-04-20] MEDS: Metoclopramide HCl 10 MG TABLET PO ×3 (08:08→16:18)
[2024-04-20] MEDS: Enoxaparin Sodium 40 MG/0.4 ML SYRINGE SUBCUT (08:08)
[2024-04-20] MEDS: predniSONE 20 MG TABLET PO (08:08)
[2024-04-20] MEDS: Losartan Potassium 50 MG TABLET PO (08:08)
[2024-04-20] MEDS: Azithromycin 500 MG TABLET PO (08:08)
[2024-04-20] MEDS: Cholecalciferol (Vitamin D3) 25 MCG TABLET 50 MCG PO (08:08)
[2024-04-20] MEDS: amLODIPine Besylate 5 MG TABLET PO (08:08)
[2024-04-20] MEDS: SITagliptin Phosphate 100 MG TABLET PO (08:08)
[2024-04-20] MEDS: Baclofen 10 MG TABLET PO ×3 (08:08→20:53)
[2024-04-20] MEDS: Gabapentin 400 MG CAPSULE 800 MG PO ×3 (08:08→20:53)
[2024-04-20] MEDS: cefuroxime axetiL 500 MG TABLET PO ×2 (08:12→20:52)
[2024-04-20] MEDS: 0.9 % Sodium Chloride Flush 3 ML SYRINGE IVFLUSH ×3 (08:14→20:54)
[2024-04-20] MEDS: Albuterol/Iprat 2.5/0.5MG 3 ML AMPUL.NEB INHALE ×4 (08:22→20:33)
[2024-04-20] MEDS: Fluticasone Propionate 250 MCG BLST.W.DEV 1 PUFF INHALE ×2 (08:22→20:33)
[2024-04-20 11:17] LABS: Glucose, Whole Blood 272 mg/dL (60-115)
[2024-04-20] MEDS: Insulin Lispro 100 UNIT/ML 3 ML VIAL SUBCUT ×3 (11:28→20:53)
--- NOTE | 2024-04-20 15:37 | HO.PM.IMPN ---
Subjective Subjective Date of Service: 04/20/24 Interval History: Being followed for acute on chronic hypoxic respiratory failure/pneumonia and abdominal pain Complaining of abdominal pain this morning, denies shortness of breath, oxygenation stable on 2 L. Review of Systems All other system reviewed and are negative. Physical Exam Vital Signs: Vital Signs: Last Vital Signs Temp 97.4 F 04/20/24 15:07 Pulse 74 04/20/24 15:30 Resp 16 04/20/24 15:30 BP 100/55 L 04/20/24 15:07 Pulse Ox 96 04/20/24 15:07 O2 Del Method Nasal Cannula 04/20/24 15:07 O2 Flow Rate 2 04/20/24 15:07 Oxygen Flow Rate 3 04/15/24 18:10 BMI result Body Mass Index 25.3 Const: Other: Gen: Awake alert in no acute distress HEENT: sclera anicteric, moist mucus membranes Neck: supple, no JVD Lungs: Clear to auscultation Heart: regular, no murmurs Abd: soft, mid abd discomfort with palpation, bowel sounds audible Ext: no edema Skin: warm/well-perfused Neuro: alert and oriented x3, no focal findings Psych: appropriate affect Objective Data Active Medications Acetaminophen (Acetaminophen 325 Mg Tablet) 650 mg PO Q6H PRN PRN Reason: Pain, Mild (Pain Scale 1-3), fever or headache Albuterol/Ipratropium (Albuterol/Iprat 2.5/0.5mg 3 Ml Ampul.Neb) 3 ml INHALE RQ4H WHILE AWAKE [facility] Last Admin: 04/20/24 15:30 Dose: 3 ml Documented By: MARIPOSA Albuterol/Ipratropium (Albuterol/Iprat 2.5/0.5mg 3 Ml Ampul.Neb) 3 ml INHALE Q4H PRN PRN Reason: Wheezing Amlodipine Besylate (Amlodipine Besylate 5 Mg Tablet) 5 mg PO DAILY [facility]; Protocol Last Admin: 04/20/24 08:08 Dose: 5 mg Documented By: REGINE Aspirin (Aspirin Enteric Coated 81 Mg Tablet.) 81 mg PO BEDTIME [facility] Last Admin: 04/19/24 20:57 Dose: 81 mg Documented By: HECTOR Atorvastatin Calcium (Atorvastatin Calcium 20 Mg Tablet) 20 mg PO DAILY [facility] Last Admin: 04/20/24 08:07 Dose: 20 mg Documented By: REGINE Azithromycin (Azithromycin 500 Mg Tablet) 500 mg PO DAILY [facility] Last Admin: 04/20/24 08:08 Dose: 500 mg Documented By: REGINE Baclofen (Baclofen 10 Mg Tablet) 10 mg PO TID [facility] Last Admin: 04/20/24 08:08 Dose: 10 mg Documented By: REGINE Calcium Carbonate (Calcium Carbonate 750 Mg Tab.Chew) 750 mg PO Q4H PRN PRN Reason: Heartburn Cefuroxime Axetil (Cefuroxime Axetil 500 Mg Tablet) 500 mg PO BID [facility] Last Admin: 04/20/24 08:12 Dose: 500 mg Documented By: REGINE Enoxaparin Sodium (Enoxaparin Sodium 40 Mg/0.4 Ml Syringe) 40 mg SUBCUT Q24H [facility] Last Admin: 04/20/24 08:08 Dose: 40 mg Documented By: REGINE Fluticasone Propionate (Fluticasone Propionate 250 Mcg Blst.W.Dev) 1 puff INHALE RBID [facility] Last Admin: 04/20/24 08:22 Dose: 1 puff Documented By: MARIPOSA Gabapentin (Gabapentin 400 Mg Capsule) 800 mg PO TID [facility] Last Admin: 04/20/24 08:08 Dose: 800 mg Documented By: REGINE Glucose (Glucose Gel 15 Gm Gel..Gram.) 15 gm PO Q15M PRN; Protocol PRN Reason: per Hypoglycemia Standing Ord. Dextrose (D10) 250 mls @ 750 mls/hr IV Q15M PRN; Protocol PRN Reason: per Hypoglycemia Standing Ord. Insulin Human Lispro (Insulin Lispro 100 Unit/Ml 3 Ml Vial) 0 unit SUBCUT QIDACHS [facility]; Protocol Last Admin: 04/20/24 11:28 Dose: 6 unit Documented By: REGINE Losartan Potassium (Losartan Potassium 50 Mg Tablet) 50 mg PO DAILY [facility]; Protocol Last Admin: 04/20/24 08:08 Dose: 50 mg Documented By: REGINE Magnesium Hydroxide (Milk Of Magnesia 30 Ml Oral.Susp) 30 ml PO DAILY PRN PRN Reason: Constipation Melatonin (Melatonin 3 Mg Tablet) 6 mg PO BEDTIME PRN PRN Reason: Insomnia Last Admin: 04/16/24 20:47 Dose: 6 mg Documented By: PANCHOQC Metoclopramide HCl (Metoclopramide Hcl 10 Mg Tablet) 10 mg PO TIDAC [facility] Last Admin: 04/20/24 11:28 Dose: 10 mg Documented By: REGINE Pt Own(Linaclotide [ Linzess] 145 Mcg Capsule) 145 mcg PO DAILY [facility] Last Admin: 04/20/24 08:09 Dose: 145 mcg Documented By: REGINE Omeprazole (Omeprazole 40 Mg Capsule.) 40 mg PO DAILY@0630 [facility] Last Admin: 04/20/24 06:03 Dose: 40 mg Documented By: DARIANT Ondansetron HCl (Ondansetron Hcl 4 Mg/2 Ml Vial) 4 mg IVPUSH Q8H PRN PRN Reason: Nausea and Vomiting Prednisone (Prednisone 20 Mg Tablet) 20 mg PO DAILY [facility] Last Admin: 04/20/24 08:08 Dose: 20 mg Documented By: REGINE Sitagliptin Phosphate (Sitagliptin Phosphate 100 Mg Tablet) 100 mg PO DAILY [facility] Last Admin: 04/20/24 08:08 Dose: 100 mg Documented By: REGINE Sodium Chloride (0.9 % Sodium Chloride Flush 3 Ml Syringe) 3 ml IVFLUSH QSHIFT [facility] Last Admin: 04/20/24 08:14 Dose: 3 ml Documented By: REGINE Vitamin D (Cholecalciferol (Vitamin D3) 25 Mcg Tablet) 50 mcg PO DAILY [facility] Last Admin: 04/20/24 08:08 Dose: 50 mcg Documented By: REGINE Labs 04/16/24 03:18 04/16/24 03:18 Labs: Laboratory Results - last 24 hr 04/19/24 04/19/24 04/20/24 17:29 20:23 07:12 POC Glucose 241 H 299 H 132 H 04/20/24 11:09 POC Glucose 272 H Assessment and Plan (1) Renal mass of unknown nature: Status: Acute (2) Gastritis: Status: Acute (3) Acute exacerbation of chronic obstructive pulmonary disease: Status: Acute Plan 63-year-old female with pertinent history of chronic hypoxia due to COPD on 2 L supplemental oxygen, hypertension, hyperlipidemia, zhb-zjarpzy-jscxsclpo diabetes mellitus, gastroesophageal reflux disease who presents to the emergency department complaining of abdominal pain and dyspnea. Epigastric pain Likely due to gastritis/history of gastroparesis CT abdomen/pelvis neg Continue Prilosec increase dose to 40 mg/continue Reglan GI> recommended small-bowel series that showed cricopharyngeal mild achalasia, esophageal dysmotility, findings suggestive of gastritis and celiac disease. Celiac diagnostic glidin TTG ordered, alpha-1 antitrypsin ordered Recommend outpatient follow-up Renal cyst Renal ultrasound>3mm mass , Seen by Urology they recommended CT abdomen renal mass protocol, it showed 3.4 cm right lower pole enhancing renal mass consistent with renal cell carcinoma Inform Dr. Saenz he recommend outpatient follow-up Called patient's healthcare proxy Wiley omalley, phone number [phone] as per patient's request and informed him about patient's diagnosis and emphasized on outpatient urology follow-up Acute on chronic hypoxia due to exacerbation of COPD in the setting of pneumonia continue supplemental oxygen, on 2 liters at home. s/p iv Rocephin and azithromycin now on by mouth Ceftin and azithromycin Wean steroids. Scheduled and p.r.n. DuoNebs. Continue home inhaler Encourage out of bed and ambulation Acute lactic acidosis due to albuterol use and hypoxia. No severe sepsis, will discontinue Glucophage Kto-jbikxwn-zntvmgrvr diabetes mellitus with hyperglycemia Elevated blood sugars likely due to steroids, continue Januvia , hold metformin, Continue sliding scale, ADA diet Mixed hyperlipidemia On statin Hypertension Continue home antihypertensives Mood disorder Continue home mood stabilizers DVT prophylaxis: Lovenox Full code In my clinical judgment patient need continued inpatient hospitalization for management of acute on chronic hypoxic respiratory failure and abdominal pain. Quality Stroke Does the patient have a stroke diagnosis?: No VTE Prior VTE?: No VTE Risk Level:: Medical - moderate - high VTE Device Contraindication: Treatment Not Indicated VTE Drug Contraindication: N/A - Med Ordered
[2024-04-20 16:16] LABS: Glucose, Whole Blood 174 mg/dL (60-115)
[2024-04-20 20:09] LABS: Glucose, Whole Blood 296 mg/dL (60-115)
[2024-04-20] MEDS: Aspirin Enteric Coated 81 MG TABLET.DR PO (20:52)
[2024-04-21 04:00] VITALS: BP 125/60; PULSE 63; RESP 16; TEMP 36.4; O2SAT 96
[2024-04-21] MEDS: Omeprazole 40 MG CAPSULE.DR PO (05:41)
[2024-04-21 07:21] VITALS: BP 125/58; PULSE 70; RESP 16; TEMP 36.2; O2SAT 97
[2024-04-21 07:38] LABS: Glucose, Whole Blood 160 mg/dL (60-115)
[2024-04-21 07:56] VITALS: PULSE 84; RESP 16; O2SAT 98
[2024-04-21] MEDS: Fluticasone Propionate 250 MCG BLST.W.DEV 1 PUFF INHALE (07:56)
[2024-04-21] MEDS: Albuterol/Iprat 2.5/0.5MG 3 ML AMPUL.NEB INHALE ×2 (07:56→11:26)
[2024-04-21] MEDS: Insulin Lispro 100 UNIT/ML 3 ML VIAL SUBCUT (08:30)
[2024-04-21] MEDS: Metoclopramide HCl 10 MG TABLET PO (08:30)
[2024-04-21] MEDS: Cholecalciferol (Vitamin D3) 25 MCG TABLET 50 MCG PO (08:31)
[2024-04-21] MEDS: Enoxaparin Sodium 40 MG/0.4 ML SYRINGE SUBCUT (08:31)
[2024-04-21] MEDS: SITagliptin Phosphate 100 MG TABLET PO (08:32)
[2024-04-21] MEDS: Baclofen 10 MG TABLET PO (08:32)
[2024-04-21] MEDS: Azithromycin 500 MG TABLET PO (08:32)
[2024-04-21] MEDS: Gabapentin 400 MG CAPSULE 800 MG PO (08:32)
[2024-04-21] MEDS: predniSONE 20 MG TABLET PO (08:32)
[2024-04-21] MEDS: Atorvastatin Calcium 20 MG TABLET PO (08:32)
[2024-04-21] MEDS: 0.9 % Sodium Chloride Flush 3 ML SYRINGE IVFLUSH (08:33)
[2024-04-21 08:34] VITALS: BP 143/68
[2024-04-21] MEDS: Losartan Potassium 50 MG TABLET PO (08:34)
[2024-04-21 08:36] VITALS: BP 143/68
[2024-04-21] MEDS: amLODIPine Besylate 5 MG TABLET PO (08:36)
[2024-04-21] MEDS: cefuroxime axetiL 500 MG TABLET PO (08:52)
--- NOTE | 2024-04-21 10:42 | P.DS_ITS ---
DS: Providers Provider Date of Service: 04/21/24 Date of admission: 04/16/24 00:00 Date of discharge: 04/21/24 Primary care physician: Magalie iNcolas MD Consults: 04/17/24 08:07 Consult to Gastroenterology Routine Consulting Provider: Yves Tyson Reason for consultation: epigastric pain 04/17/24 15:05 Consult to Urology Routine Consulting Provider: [facility] Reason for consultation: 3cm mass right kidney DS: Diagnosis Discharge Diagnosis (1) Renal mass of unknown nature: Status: Acute (2) Gastritis: Status: Acute (3) Acute exacerbation of chronic obstructive pulmonary disease: Status: Acute DS: Summary Hospital Course Hospital Course: Date of Service: 04/16/24 Chief Complaint: Dyspnea This is a 63-year-old female with pertinent history of chronic hypoxia due to COPD on 2 L supplemental oxygen, hypertension, hyperlipidemia, sue-luqcnjt-beowjxkpu diabetes mellitus, gastroesophageal reflux disease, tobacco use disorder who presents to the emergency department complaining of dyspnea and abdominal pain. She has been having dyspnea which is worse with exertion. Also is having cough and wheezing. Cough is with yellowish sputum production. Also complaining of epigastric pain that is intermittent and has been ongoing for a while. It is dull in nature, nonradiating and nonprogressive. Does have symptoms of gastroesophageal reflux disease. No fevers or chills. No vomiting, nausea or diarrhea. No chest discomfort, palpitations, changes in urinary or bowel habits. In the emergency department, patient found to be hypoxic and placed on 4 L supplemental oxygen. Patient with wheezing despite multiple DuoNeb treatments and IV steroids. Imaging concerning for pneumonia. Hospital course: 63-year-old female with pertinent history of chronic hypoxia due to COPD on 2 L supplemental oxygen, hypertension, hyperlipidemia, qtw-tmjavod-znlkefalg diabetes mellitus, gastroesophageal reflux disease presented to [place] ED with complaints of abdominal pain and dyspnea and admitted to [facility] with a diagnosis of acute on chronic hypoxia due to exacerbation of COPD in the setting of pneumonia. Acute on chronic hypoxia due to exacerbation of COPD in the setting of pneumonia, treated with IV Rocephin and azithromycin and steroids, responded well to above treatment oxygenation improved, currently on 2 L of baseline oxygen, patient finished course of steroids and antibiotics, recommend to continue home inhalers, she was noted to have acute lactic acidosis likely due to albuterol use, hypoxia and Glucophage, she is recommended to discontinue Glucophage and follow-up with PCP.. In regard to epigastric pain, CT abdomen and pelvis showed no acute abnormality, seen by Dr. Payton from Gastroenterology he recommended small bowel series that showed cricopharyngeal mild achalasia, esophageal dysmotility, findings suggestive of gastritis and celiac disease,Celiac diagnostic glidin TTG and alpha-1 antitrypsin obtained report pending, recommend outpatient follow-up with Gastroenterology recommend to continue Prilosec and Reglan. CT abdomen showed intermediate to high density structure projecting of the mid to lower pole of right kidney measuring 2.5 cm, therefore renal ultrasound obtained that showed slightly hypo echoic focus projecting of the mid pole of the right kidney measuring 3 cm, therefore Urology consult obtained, CT abdomen with renal mass protocol was done, it showed 3.4 cm right lower pole enhancing renal mass consistent with renal cell carcinoma, informed patient and her healthcare proxy Wiley phone number [phone] as per patient's request and informed him about patient's diagnosis and emphasized on outpatient urology follow-up, also notified patient's urologist Dr. Anny Rangel she recommended outpatient follow-up urology, likely will need cryo ablation by Interventional Radiology In regard to Sij-xreynnk-tqchgumbi diabetes mellitus with hyperglycemia, she is recommended to continue Januvia and diabetic diet, her last documented hemoglobin A1c is 5.5 on 10/2023. She is recommended to continue all home medications for hyperlipidemia, hypertension and mood disorder. Time Attestation Discharge Coordination Time (in mins): 40 Quality: Safe Use of Opioids Does Pt have an Active Cancer Diagnosis on the Problem List?: No Quality: Stroke Does the patient have a stroke diagnosis?: No Physical Exam Vital Signs: Vital Signs: Last Vital Signs Temp 97.1 F 04/21/24 07:21 Pulse 84 04/21/24 07:56 Resp 16 04/21/24 07:56 BP 143/68 H 04/21/24 08:36 Pulse Ox 97 04/21/24 07:21 O2 Del Method Nasal Cannula 04/21/24 07:21 O2 Flow Rate 2.0 04/21/24 07:21 Oxygen Flow Rate 3 04/15/24 18:10 BMI result Body Mass Index 25.3 Const: Other: Gen: Awake alert in no acute distress HEENT: sclera anicteric, moist mucus membranes Neck: supple, no JVD Lungs: Clear to auscultation Heart: regular, no murmurs Abd: soft, mid abd discomfort with palpation, bowel sounds audible Ext: no edema Skin: warm/well-perfused Neuro: alert and oriented x3, no focal findings Psych: appropriate affect DS: Data Data Completed and Pending Labs on day of discharge: Laboratory Results - last 24 hr 04/20/24 04/20/24 04/20/24 11:09 16:12 20:05 POC Glucose 272 H 174 H 296 H 04/21/24 07:25 POC Glucose 160 H Discharge Plan Discharge Anticipated Discharge Date/Time: 04/21/24 10:33 Patient Disposition: Home, Self-Care Discharge Diagnosis: Right renal mass Acute on chronic hypoxic respiratory failure Acute on chronic COPD exacerbation Referrals: Magalie Nicolas MD [Primary Care Provider] - 1 Week Discharge Medications: Continued (DME) lancets [FreeStyle Lancets] 28 gauge misc See Rx Instructions .Route Qty: 100 5RF Rx Instructions: As directed twice a day AC (DME) FreeStyle Lite Strips Strip See Rx Instructions .Route Qty: 100 0RF Rx Instructions: check fasting blood sugar twice a day before meals (DME) FreeStyle Cristian 2 Sensor Kit See Rx Instructions .Route Qty: 6 3RF Rx Instructions: Test blood sugar 4 times per day (DME) FreeStyle Cristian 2 [place] Misc See Rx Instructions .Route Qty: 1 0RF Rx Instructions: test blood sugar 4 times per day losartan 50 mg tablet 50 mg PO DAILY Qty: 90 1RF Januvia 100 mg tablet 100 mg PO DAILY Qty: 90 1RF cholecalciferol (vitamin D3) 50 mcg (2,000 unit) capsule 50 mcg PO DAILY Qty: 90 1RF rosuvastatin 5 mg tablet 5 mg PO DAILY Qty: 90 1RF simethicone 180 mg capsule 180 mg PO QID Qty: 120 6RF gabapentin 800 mg tablet 800 mg PO TID 30 Days Qty: 90 6RF amlodipine 5 mg tablet 5 mg PO DAILY Qty: 90 0RF albuterol sulfate 2.5 mg /3 mL (0.083 %) solution for nebulization 2.5 mg inhalation Q6H PRN (Reason: wheezing) omeprazole 20 mg capsule,delayed release(DR/EC) 20 mg PO DAILY@0630 psyllium husk [Fiber Laxative (psyllium husk)] 0.52 gram capsule 1.04 g PO BID Linzess 145 mcg capsule 145 mcg PO DAILY metoclopramide HCl [Reglan] 10 mg tablet 10 mg PO TIDAC umeclidinium 62.5 mcg/actuation blister with device 1 inh inhalation DAILY Rx Instructions: Encruse aspirin [Adult Low Dose Aspirin] 81 mg tablet,delayed release (DR/EC) 81 mg PO BEDTIME (DME) blood-glucose meter [FreeStyle Lite Meter] Kit See Rx Instructions .Route Qty: 1 0RF Rx Instructions: As directed twice a day before meals Arnuity Ellipta 200 mcg/actuation blister with device 1 inh inhalation DAILY Discontinued metformin 1,000 mg tablet 1,000 mg PO BID Qty: 180 3RF naproxen 500 mg tablet 500 mg PO BID PRN (Reason: for pain) Qty: 30 0RF Discharge Orders: Discharge Order (Routine); Ordered 04/21/24 Ordered By: Lamberto Raymond Diet: Diabetic diet Activity on Discharge: As tolerated Stand Alone Forms: Patient Portal Discharge page Print Language: Armenian Care Plan Goals: Continue 2 L of home oxygen, continue home inhalers finished course of antibiotics and prednisone Take small meals, sit up for 30 minutes after each meals Health Concerns: Strongly recommend to abstain from smoking Continue 2 L of home oxygen Plan of Treatment: Outpatient follow-up with Dr. Suresh Michelle from Urology call for appointment NEXT WEEK for RIGHT RENAL MASS. Outpatient follow-up with Dr. Tyson from Gastroenterology for further workup of abdominal pain and follow-up on pending labs. Outpatient follow-up with primary care physician call for appointment, need repeat CT chest in 3-6 months for follow-up on incidentally noted pulmonary nodules largest measuring 5 mm Assessment: As above Discharge Date/Time: 04/21/24 11:37
--- NOTE | 2024-04-21 10:52 | MHC.CM.PN ---
Patient is discharged to home self care today. [employer] services will resume. Patient has arranged for transport home.
[2024-04-21 11:26] VITALS: PULSE 80; RESP 14; O2SAT 96
[2024-04-21 11:49] LABS: Alpha 1 Anti-trypsin 135 mg/dL (83-199)
[2024-04-24 05:43] LABS: Gliadin Deamidated IgA Ab <1.0 U/mL; Gliadin Deamidated IgG Ab <1.0 U/mL; Immunoglobulin A 100 mg/dL (70-320); Transglutaminase Ab IgG <1.0 U/mL; Transglutaminase IgA <1.0 U/mL
== END 2024-04-21 11:37 | disposition home or self-care (01) | DRG 139 ==
LOC: HO.ED 22:38 → HO.EDOVER 04-16 00:08 → HO.S3 04-16 13:59
PROVIDERS: Nurse Practitioner Acute Care; Admitting Provider Student in an Organized Health Care Education/Training Program; Emergency Provider Emergency Medicine Emergency Medical Services; PCP Internal Medicine; Visit Provider Hospitalist
DX: J18.9 Pneumonia, unspecified organism (principal); J96.21 Acute and chronic respiratory failure with hypoxia; E87.21 Acute metabolic acidosis; J44.0 Chronic obstructive pulmonary disease with (acute) lower respiratory infection; J44.1 Chronic obstructive pulmonary disease with (acute) exacerbation; K22.0 Achalasia of cardia; Z99.81 Dependence on supplemental oxygen; E78.2 Mixed hyperlipidemia; T48.6X5A Adverse effect of antiasthmatics, initial encounter; E11.65 Type 2 diabetes mellitus with hyperglycemia; K29.70 Gastritis, unspecified, without bleeding; K90.0 Celiac disease; N28.89 Other specified disorders of kidney and ureter; I10 Essential (primary) hypertension; N28.1 Cyst of kidney, acquired; K21.9 Gastro-esophageal reflux disease without esophagitis; F17.210 Nicotine dependence, cigarettes, uncomplicated; Z71.6 Tobacco abuse counseling; Z20.822 Contact with and (suspected) exposure to COVID-19; Z79.82 Long term (current) use of aspirin; Z79.51 Long term (current) use of inhaled steroids; Z79.899 Other long term (current) drug therapy
CPT/HCPCS: 0241U; 36415; 71045; 71250; 74170; 74176; 74230; 74250; 76775; 80048; 80053; 82103; 82784; 82803; 82947; 83605; 83690; 83880; 85025; 86258; 86364; 87040; 93005; 94640; 99285; J0456; J0696; J1650; J2470; J2919; Q9967

== ENCOUNTER 2024-04-16 | Outpatient (BNV) | payer OTHER, SELFPAY | END 2024-04-18 10:15 | PROVIDERS: Admitting Provider Student in an Organized Health Care Education/Training Program; Emergency Provider Emergency Medicine Emergency Medical Services; PCP Internal Medicine; Visit Provider Radiology Diagnostic Radiology | DX: R10.13 Epigastric pain (principal) | CPT/HCPCS: 74246; 74248 ==

== ENCOUNTER → 2024-04-16 | Outpatient (BNV) | payer OTHER, SELFPAY | PROVIDERS: Admitting Provider Student in an Organized Health Care Education/Training Program; Emergency Provider Emergency Medicine Emergency Medical Services; PCP Internal Medicine; Visit Provider Internal Medicine Gastroenterology | DX: J44.1 Chronic obstructive pulmonary disease with (acute) exacerbation (principal) | CPT/HCPCS: 99223 ==

== ENCOUNTER → 2024-04-16 | Outpatient (BNV) | payer OTHER, SELFPAY | PROVIDERS: Admitting Provider Student in an Organized Health Care Education/Training Program; Emergency Provider Emergency Medicine Emergency Medical Services; PCP Internal Medicine; Visit Provider Urology | DX: N28.89 Other specified disorders of kidney and ureter (principal) | CPT/HCPCS: 99222 ==

== ENCOUNTER 2024-05-05 15:13 | Inpatient (IN) | payer OTHER, SELFPAY ==
--- NOTE | ~2024-05-05 | XR_ITS ---
EXAMINATION: XR CHEST CLINICAL INFORMATION: Shortness of breath COMPARISON: April 15, 2024 TECHNIQUE: 2 views of the chest were obtained. FINDINGS: No significant abnormality is noted involving the heart, lungs, mediastinum, bony thorax or soft tissues. XR/XR chest 2V IMPRESSION: Unremarkable examination. Electronically signed by: Ni Coleman MD 05/05/2024 04:28 PM EDT RP
[2024-05-05 15:17] VITALS: BP 143/61; PULSE 103; RESP 20; TEMP 36.9; O2SAT 86; BMI 24.7
--- NOTE | 2024-05-05 15:21 | ECG_ITS ---
Test Reason : dyspena Blood Pressure : / mmHG Vent. Rate : 100 BPM Atrial Rate : 100 BPM P-R Int : 120 ms QRS Dur : 074 ms QT Int : 350 ms P-R-T Axes : 078 083 049 degrees QTc Int : 451 ms Normal sinus rhythm Normal ECG When compared with ECG of 15-APR-2024 21:46, No significant change was found Referred By: Allison Keys Electronically Signed By:JAMES YI
--- NOTE | 2024-05-05 15:22 | ED_ITS ---
HPI - SOB/Dyspnea General Chief Complaint: Dyspnea Stated Complaint: weakness-sob Time Seen by Provider: 05/05/24 22:00 Source: patient Mode of arrival: ambulatory Limitations: no limitations History of Present Illness ED Provider: Dr. Shaffer HPI Narrative: Patient stated that for the past few days she has had increasing shortness of breath. Today was really bad. She is known to have severe COPD and is still a smoker. MD elicited complaint: shortness of breath and cough Pertinent past history: COPD Onset (ago): day(s) Related Data Home Medications ?Medication ?Instructions ?Recorded ?Confirmed aspirin 81 mg tablet,delayed 81 mg PO BEDTIME 01/10/21 04/20/24 release (Adult Low Dose Aspirin) umeclidinium 62.5 mcg/actuation 1 inh inhalation DAILY 03/31/21 04/20/24 blister powder for inhalation albuterol sulfate 2.5 mg/3 mL 2.5 mg inhalation Q6H PRN wheezing 08/02/23 04/20/24 (0.083 %) solution for nebulization fluticasone furoate 200 1 inh inhalation DAILY 08/25/23 04/20/24 mcg/actuation blister powder for inhalation (Arnuity Ellipta) linaclotide 145 mcg capsule 145 mcg PO DAILY 02/28/24 04/20/24 (Linzess) metoclopramide HCl 10 mg tablet 10 mg PO TIDAC gastroparesis 02/28/24 04/20/24 (Reglan) omeprazole 20 mg capsule,delayed 20 mg PO DAILY@0630 02/28/24 04/20/24 release psyllium husk 0.52 gram capsule 1.04 g PO BID Constipation 02/28/24 04/20/24 (Fiber Laxative (psyllium husk)) Previous Rx's ?Medication ?Instructions ?Recorded blood-glucose meter (FreeStyle #1 ea 10/03/21 Lite Meter kit) lancets 28 gauge (FreeStyle #100 ea 01/06/22 Lancets) FreeStyle Lite Strips (blood sugar #100 ea 03/10/22 diagnostic) flash glucose sensor (FreeStyle #6 ea 02/19/23 Cristian 2 Sensor kit) flash glucose scanning reader #1 ea 03/26/23 (FreeStyle Cristian 2 Jal) losartan 50 mg tablet 50 mg PO DAILY #90 tabs 10/10/23 cholecalciferol (vitamin D3) 50 50 mcg PO DAILY #90 caps 11/22/23 mcg (2,000 unit) capsule sitagliptin phosphate 100 mg 100 mg PO DAILY #90 tabs 11/22/23 tablet (Januvia) rosuvastatin 5 mg tablet 5 mg PO DAILY #90 tabs 12/01/23 simethicone 180 mg capsule 180 mg PO QID #120 caps 01/13/24 gabapentin 800 mg tablet 800 mg PO TID 30 days #90 tabs 01/26/24 amlodipine 5 mg tablet 5 mg PO DAILY #90 tabs 03/20/24 prednisone 20 mg tablet 60 mg (3 x 20 mg) PO DAILY #12 tabs 05/06/24 Allergies Allergy/AdvReac Type Severity Reaction Status Date / Time amoxicillin [AMOXICILLIN] Allergy Intermediate RASH Verified 05/05/24 15:20 Review of Systems 2 Review of Systems: Yes all other systems are reviewed and are negative Neurologic: Denies Sensory deficit (Neuro) [facility] Past Medical History Medical History Chronic lung disease COPD (chronic obstructive pulmonary disease) Type 2 diabetes mellitus without complication, with no history of insulin use Mixed dyslipidemia Essential hypertension GERD (gastroesophageal reflux disease) Gastroparesis Diastolic CHF with preserved left ventricular function, NYHA class 2 Chronic hypercapnic respiratory failure Type 2 diabetes mellitus with other diabetic kidney complication Type 2 diabetes mellitus without complication, with no history of insulin use Smoker unmotivated to quit Postlaminectomy syndrome of cervical region Seasonal allergic rhinitis Degenerative disc disease, cervical Postmenopause Dyslipidemia Surgical History H/O cervical discectomy History of esophagogastroduodenoscopy (EGD) Hx of colonoscopy Family History Family History Mother Diabetes Sister Diabetes Mental health disorder Brother Diabetes Father HTN (hypertension) Social History Social History Household Members: Significant Other Housing: Other Housing Other:: mobile home Do you presently have visiting nurse 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) Alcohol intake: former Comment: Commode/ Hi Flow O2 Patient Tobacco Use Status: Current everyday Tobacco user Tobacco use type: Cigarette Cigarette Packs Per Day: 1 Cigarettes Per Day: 20.0 Years Smoked: 50 Smoked in Last 30 Days: Yes e-Cigarette/Vaping Use: Never Used Second Hand Smoke Exposure: Yes Use of substances other than those prescribed or required for medical reasons: No Advance Directives: Yes Advance Directives on File: Yes Advance Directives Date on File: 09/20/21 Patient : No service: No Current occupational status: unemployed Cognitive needs: No Hearing needs: No Vision needs: Yes Physical Exam 2 Vital Signs: Vital Signs: Last Vital Signs Temp 97.6 F 05/06/24 05:27 Pulse 101 H 05/06/24 07:34 Resp 22 H 05/06/24 07:34 BP 142/64 H 05/06/24 06:32 Pulse Ox 89 L 05/06/24 07:34 O2 Del Method Nasal Cannula 05/06/24 07:34 O2 Flow Rate 2 05/06/24 07:34 BMI result Body Mass Index 24.7 Const: Other: female looking older than stated age, short of breath Orientation/consciousness: oriented to person and patient oriented x3 L imitations: no limitations HEENT: Head: Yes normal to inspection Ears: external ears normal General nose exam: Normal external nose present Mouth: Normal oral and palatal mucosa present and oropharynx normal Throat: Yes posterior oropharynx normal Eyes: General: appearance normal, both eyes and all related structures Neck: Other: supple Neck: Yes normal visual inspection Chest: Chest palpation & inspection: normal inspection of the chest Resp: Other: diffuse wheeze and rhonchi Cardio: Jugular venous distension: no JVD Rate: regular rate Rhythm: r egular rhythm Heart sounds: S1 normal heart sound present and S2 normal heart sound present GI: Inspection: Yes normal to inspection Palpation (GI): Soft to palpation, nontender and No hepatosplenomegaly present Auscultation: normal bowel sounds : General: Yes no CVA tenderness Back/Spine/Pelvis: Back: no CVA tenderness Skin: General skin exam: no rashes or lesions noted Neuro: General: oriented to person and patient oriented x3 Cranial nerves: Yes CN's II-XII intact bilaterally Motor exam (neuro): 5/5 motor strength present throughout Sensory Exam: No Sensory deficit (Neuro) Extrem: General: Yes normal to inspection Psych: Appearance: grossly normal Course Course Course Narrative: This is a Rapid Medical Examination (RME) performed by Bandar Keys PA-C in triage. Full HPI, ROS, assessment and treatment plan per primary provider in the Main ED. 63 yo female hx of COPD on 2L NC at home, HTN, HDL, non-insulin dependent type 2 diabetes, GERD presents to the ED today for eval of generalized weakness and sob x a while , worsening today. denies chest pain/ palpitations. admits to assoc cough productive of clear sputum. Denies known sick contacts. Admits to smoking 1 pack per day. + b/l rhonchi w/ decreased bs Plan: labs, viral serology, CXR Reevaluation(s) Reevaluation #1: I spent 60 minutes of critical care, with interventions, assessments, speaking to patient, consultants, and family. Time: 06:49 Reevaluation #2: Lungs now clear, 96% on 2L NC will dc home on prednisone Time: 06:50 Reevaluation #3: nurse could not ambulate patient will have case management see patient Medications Administered Discontinued Medications Generic Name Dose Route Start Last Admin Trade Name Freq PRN Reason Stop Dose Admin Albuterol Sulfate 2.5 mg 05/06/24 01:12 05/06/24 01:24 Albuterol Sulfate (0.083%) 2.5 Mg/3 Ml Vial.Neb INHALE 05/06/24 01:13 2.5 mg ONCE ONE Administration Albuterol Sulfate 5 mg 05/06/24 06:00 05/06/24 06:21 Albuterol Sulfate (0.083%) 2.5 Mg/3 Ml Vial.Neb INHALE 05/06/24 06:01 5 mg ONCE ONE Administration Albuterol Sulfate 5 mg/ 0 mg 05/05/24 21:32 05/05/24 21:38 Albuterol/Ipratropium 3 ml INHALE 05/05/24 21:33 1 each ONCE ONE Administration Magnesium Sulfate 2 gm in 50 mls @ 25 mls/hr 05/05/24 22:06 05/05/24 23:04 Magnesium Sulfate/H2o IV 05/06/24 00:05 25 mls/hr ONCE ONE Administration Methylprednisolone Sodium Succinate 125 mg 05/05/24 22:06 05/05/24 23:04 Methylprednisolone Sod Succ 125 Mg/2 Ml Vial IVPUSH 05/05/24 22:07 125 mg ONCE ONE Administration Medical Decision Making Differential Diagnosis Differential Diagnoses: The differential diagnosis associated with the presentation includes (COPD, flu, covid, rsv, pneumonia) Admission/Observation Consideration of admission/observation: Escalation of care including admission/observation considered (upon arrival patient considered for admission) Lab Data 05/05/24 15:50 05/05/24 15:50 Labs: Lab Results 05/05/24 Range/Units 15:50 WBC 12.1 H (4.8-10.8) X10*3/uL RBC 4.60 (4.20-5.50) X10*6/uL Hgb 11.9 L (12.0-16.0) g/dl Hct 38.9 (37.0-47.0) % MCV 84.6 (80.0-98.0) fL MCH 25.9 L (27.0-33.0) pg MCHC 30.6 L (31.0-35.0) g/dl RDW 17.0 H (11.0-16.0) % Plt Count 312 (160-400) X10*3/uL MPV 10.0 (9.4-12.3) fL Immature Gran % (Auto) 0.4 (0.0-0.4) % Neut % (Auto) 69.0 (45-73) % Lymph % (Auto) 22.3 (20-40) % [place] % (Auto) 6.3 (2-11) % Eos % (Auto) 1.4 (0-4) % Baso % (Auto) 0.6 (0-2) % Lymph # (Auto) 2.7 (1.2-4.9) X10*3/uL [place] # (Auto) 0.8 (0.1-1.2) X10*3/uL Eos # (Auto) 0.2 (0.0-0.4) X10*3/uL Baso # (Auto) 0.1 (0.0-0.2) X10*3/uL Abs Immat Gran (auto) 0.05 H (0.00-0.03) X10*3/uL Absolute Neuts (auto) 8.3 (2.0-8.3) x10*3/uL Absolute Nucleated RBC 0.000 (0.0-0.012) X10*3/uL Nucleated RBC % (auto) 0.0 (0.0-0.2) /100WBC Sodium 142 (135-145) mmol/L Potassium 3.9 (3.3-5.1) mmol/L Chloride 103 (96-108) mmol/L Carbon Dioxide 29 (22-29) mmol/L Anion Gap 14 (12-20) BUN 6 L (9-16) mg/dL Creatinine 0.53 (0.5-1.4) mg/dL Estim Creat Clear Calc 76.2 Estimated GFR > 60 Random Glucose 99 (60-115) mg/dL Calcium 10.2 (8.4-10.2) mg/dL Magnesium 1.2 L* (1.6-2.6) mg/dL Total Bilirubin 0.3 (0.0-1.0) mg/dL AST 11 (5-31) U/L ALT 9 (0-31) U/L Alkaline Phosphatase 64 (39-117) U/L Troponin I High Sens 4.6 D (<3.5-17.0) ng/L B-Natriuretic Peptide < 10 (<100) pg/mL Total Protein 7.1 (6.5-8.0) g/dL Albumin 4.5 (3.5-5.0) g/dL Influenza Type A (PCR) NEGATIVE (Negative) Influenza Type B (PCR) NEGATIVE (Negative) RSV RNA Qual (PCR) NEGATIVE (Negative) SARS-CoV-2 RNA (RT-PCR) NEGATIVE (Negative) Independent Interpretation I performed an independent interpretation of an: EKG (sinus [address] or twave changes) and Plain X-Ray (CXR: no infiltrate) Independent Historian Clinical information obtained from an independent historian. History obtained from or confirmed by: EMS Prescription Management I considered prescription management with: Antibiotic (no infiltrate seen on CXR) Chronic Conditions Patient?s care impacted by: Other (COPD) Social Determinants Patient?s care significantly limited by Social Determinants of Health including: Low income Discharge Plan Discharge Clinical Impression: COPD (chronic obstructive pulmonary disease) Patient Disposition: Home, Self-Care Instructions: COPD (Chronic Obstructive Pulmonary Disease) (ED) Prescriptions: New prednisone 20 mg tablet 60 mg PO DAILY Qty: 12 0RF No Action (DME) lancets [FreeStyle Lancets] 28 gauge misc See Rx Instructions .Route Qty: 100 5RF Rx Instructions: As directed twice a day AC (DME) FreeStyle Lite Strips Strip See Rx Instructions .Route Qty: 100 0RF Rx Instructions: check fasting blood sugar twice a day before meals (DME) FreeStyle Cristian 2 Sensor Kit See Rx Instructions .Route Qty: 6 3RF Rx Instructions: Test blood sugar 4 times per day (DME) FreeStyle Cristian 2 Jal Misc See Rx Instructions .Route Qty: 1 0RF Rx Instructions: test blood sugar 4 times per day losartan 50 mg tablet 50 mg PO DAILY Qty: 90 1RF Januvia 100 mg tablet 100 mg PO DAILY Qty: 90 1RF cholecalciferol (vitamin D3) 50 mcg (2,000 unit) capsule 50 mcg PO DAILY Qty: 90 1RF rosuvastatin 5 mg tablet 5 mg PO DAILY Qty: 90 1RF simethicone 180 mg capsule 180 mg PO QID Qty: 120 6RF gabapentin 800 mg tablet 800 mg PO TID 30 Days Qty: 90 6RF amlodipine 5 mg tablet 5 mg PO DAILY Qty: 90 0RF albuterol sulfate 2.5 mg /3 mL (0.083 %) solution for nebulization 2.5 mg inhalation Q6H PRN (Reason: wheezing) omeprazole 20 mg capsule,delayed release(DR/EC) 20 mg PO DAILY@0630 psyllium husk [Fiber Laxative (psyllium husk)] 0.52 gram capsule 1.04 g PO BID Linzess 145 mcg capsule 145 mcg PO DAILY metoclopramide HCl [Reglan] 10 mg tablet 10 mg PO TIDAC umeclidinium 62.5 mcg/actuation blister with device 1 inh inhalation DAILY Rx Instructions: Encruse aspirin [Adult Low Dose Aspirin] 81 mg tablet,delayed release (DR/EC) 81 mg PO BEDTIME (DME) blood-glucose meter [FreeStyle Lite Meter] Kit See Rx Instructions .Route Qty: 1 0RF Rx Instructions: As directed twice a day before meals Arnuity Ellipta 200 mcg/actuation blister with device 1 inh inhalation DAILY Print Language: Maltese
[2024-05-05 15:32] VITALS: O2SAT 93
[2024-05-05 15:53] LABS: MANUAL DIFF FLAG NO
[2024-05-05 15:56] LABS: Basophils Absolute Auto 0.1 X10*3/uL (0.0-0.2); Basophils Percent Auto 0.6 % (0-2); Eosinophils Absolute Auto 0.2 X10*3/uL (0.0-0.4); Eosinophils Percent Auto 1.4 % (0-4); Hematocrit 38.9 % (37.0-47.0); Hemoglobin 11.9 g/dl (12.0-16.0); Imm Gran Abs Auto 0.05 X10*3/uL (0.00-0.03); Imm Gran Pct Auto 0.4 % (0.0-0.4); Lymphocytes Absolute Auto 2.7 X10*3/uL (1.2-4.9); Lymphocytes Percent Auto 22.3 % (20-40); Mean Corpuscular HGB Conc 30.6 g/dl (31.0-35.0); Mean Corpuscular Hemoglobin 25.9 pg (27.0-33.0); Mean Corpuscular Volume 84.6 fL (80.0-98.0); Monocytes Absolute Auto 0.8 X10*3/uL (0.1-1.2); Monocytes Percent Auto 6.3 % (2-11); Neutrophils Absolute Auto 8.3 x10*3/uL (2.0-8.3); Platelet Count 312 X10*3/uL (160-400); White Blood Count 12.1 X10*3/uL (4.8-10.8)
--- NOTE | 2024-05-05 16:14 | MHC.EDTECH ---
Patient ekg taken and was read by Provider ,blood drawn and rsv /covid swab collected all sent to lab .
[2024-05-05 16:15] LABS: Alanine Aminotransferase 9 U/L (0-31); Albumin Level 4.5 g/dL (3.5-5.0); Alkaline Phosphatase 64 U/L (39-117); Anion Gap 14 (12-20); Aspartate Amino Transferase 11 U/L (5-31); Bilirubin Total 0.3 mg/dL (0.0-1.0); Blood Urea Nitrogen 6 mg/dL (9-16); Calcium 10.2 mg/dL (8.4-10.2); Carbon Dioxide 29 mmol/L (22-29); Chloride 103 mmol/L (96-108); Creatinine Clr Calc Pharmacy 76.2; Estimated Glomerular Filt Rate > 60; Glucose Random 99 mg/dL (60-115); Potassium 3.9 mmol/L (3.3-5.1); Sodium 142 mmol/L (135-145); Total Protein 7.1 g/dL (6.5-8.0)
[2024-05-05 16:19] LABS: B Type Natriuretic Peptide < 10 pg/mL (<100); Magnesium 1.2 mg/dL (1.6-2.6); Troponin-I High Sensitivity 4.6 ng/L (<3.5-17.0)
[2024-05-05 16:35] LABS: Influenza A PCR NEGATIVE (Negative); Influenza B PCR NEGATIVE (Negative); Resp Syncy Virus RNA Qual PCR NEGATIVE (Negative); SARS COV2 PCR INHOUSE NEGATIVE (Negative)
[2024-05-05 19:57] VITALS: BP 137/44; PULSE 99; RESP 26; TEMP 36.7; O2SAT 93
[2024-05-05 19:59] VITALS: RESP 25
--- NOTE | 2024-05-05 21:24 | PC.NURSE ---
PT reporting increased work of breathing, o2 sat 90% on 2l NC, resting on her side. Notified MD and placed verbal read back order for RT
[2024-05-05] MEDS: Albuterol Sulfate 5 MG, Albuterol/Iprat 2.5/0.5MG 3 ML 3 ML INHALE (21:38)
[2024-05-05 21:40] VITALS: PULSE 94; RESP 22; O2SAT 91
[2024-05-05] MEDS: methylPREDNISolone Sod Succ 125 MG/2 ML VIAL IVPUSH (23:04)
[2024-05-05] MEDS: Magnesium Sulfate/H2O 2 GM/50 ML PIGGYBACK IV (23:04)
[2024-05-06] VITALS (14 sets, daily range): BP systolic 99–167; BP diastolic 41–79; PULSE 90–113; RESP 15–29; TEMP 36.4–36.9; O2SAT 87–99; BMI 24.7
[2024-05-06] MEDS: Albuterol Sulfate (0.083%) 2.5 MG/3 ML VIAL.NEB INHALE (01:24)
[2024-05-06] MEDS: Albuterol Sulfate (0.083%) 2.5 MG/3 ML VIAL.NEB 5 MG INHALE (06:21)
--- NOTE | 2024-05-06 07:25 | MHC.EDTECH ---
pt assisted with bedpan. bedding and hospital attire replaced and pt freshened up for discharge. readjusted in bed with head elevated. pt comfortable
--- NOTE | 2024-05-06 07:59 | PC.NURSE ---
pt was incontinent of stool, pt states that this typical does not happen at home, just feels weak today, pt's longs are diminished and some wheezing through the bases, pt appears labored and feels sob, at rest sating anywhere from 88-90% on the 2l which is pt's baseline, pt is up for d/c home but this rn is not confidant that pt is appropriate for d/c home, oxygen dips to the 82% when sleeping, pt has sever visible tremor, pt reports that she ambulates at home without any devices. attempted to get the pt up to do an ambulation trial, pt is extremely shaky and states she is feeling generally weak and states that she needs to sit down. pt is unable to perform the ambulation trial at this time, Dr au aware of this occurrence. plan to do VBG's and case management.
[2024-05-06 08:01] LABS: Glucose, Whole Blood 248 mg/dL (60-115)
[2024-05-06 08:44] LABS: VBG Base Excess 5.4 mmol/L; VBG HCO3 30 mmol/L (22-26); VBG pCO2 43 mmHg; VBG pH 7.44 (7.32-7.43); VBG pO2 123 mmHg
--- NOTE | 2024-05-06 11:30 | PHA.MEDREC ---
Pharmacy Consult ? Medication Reconciliation Pharmacy has completed the medication reconciliation. Called
--- NOTE | 2024-05-06 11:48 | MHC.EDTECH ---
assisted pt with bedpan. readjusted in bed, head elevated
[2024-05-06 12:26] LABS: Venous Blood Gas Refer to POC result
--- NOTE | 2024-05-06 12:56 | P.HPHOSP_ITS ---
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 The patient reports feeling winded and short of breath with minimal exertion that has been worsening over the last few days. No chest pain, palpitations, nausea, vomiting, diarrhea or urinary symptoms. she noticed wheezing and coughing and had to use her prn nebulizer as inhalers were not helping much. In ED found hypoxic in 80s% on her 2L home O2. CXR not showing any acute findings. admitted for COPD exacerbation. Review of Systems 2 Review of Systems: No fever, chills or weakness No chest pain, palpitation shortness of breath and coughing No abdominal pain, nausea or vomiting No urinary symptoms No any rash or wounds PMFSH Medical History Chronic lung disease COPD (chronic obstructive pulmonary disease) Type 2 diabetes mellitus without complication, with no history of insulin use Mixed dyslipidemia Essential hypertension GERD (gastroesophageal reflux disease) Gastroparesis Diastolic CHF with preserved left ventricular function, NYHA class 2 Chronic hypercapnic respiratory failure Type 2 diabetes mellitus with other diabetic kidney complication Type 2 diabetes mellitus without complication, with no history of insulin use Smoker unmotivated to quit Postlaminectomy syndrome of cervical region Seasonal allergic rhinitis Degenerative disc disease, cervical Postmenopause Dyslipidemia Family History Mother Diabetes Sister Diabetes Mental health disorder Brother Diabetes Father HTN (hypertension) Surgical History H/O cervical discectomy History of esophagogastroduodenoscopy (EGD) Hx of colonoscopy Social History Household Members: Significant Other Housing: Other Housing Other:: mobile home Do you presently have visiting 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) Alcohol intake: former Comment: Commode/ Hi Flow O2 Patient Tobacco Use Status: Current everyday Tobacco user Tobacco use type: Cigarette Cigarette Packs Per Day: 1 Cigarettes Per Day: 20.0 Years Smoked: 50 Smoked in Last 30 Days: Yes e-Cigarette/Vaping Use: Never Used Second Hand Smoke Exposure: Yes Use of substances other than those prescribed or required for medical reasons: No Advance Directives: Yes Advance Directives on File: Yes Advance Directives Date on File: 09/20/21 Patient : No service: No Current occupational status: unemployed Cognitive needs: No Hearing needs: No Vision needs: Yes Meds Allergies Allergy/AdvReac Type Severity Reaction Status Date / Time amoxicillin [AMOXICILLIN] Allergy Intermediate RASH Verified 05/05/24 15:20 Home Medications ?Medication ?Instructions ?Recorded ?Confirmed ?Last Taken ?Type aspirin 81 mg tablet,delayed 81 mg PO BEDTIME 01/10/21 05/06/24 05/05/24 History release (Adult Low Dose Aspirin) umeclidinium 62.5 mcg/actuation 1 inh inhalation DAILY 03/31/21 05/06/24 05/05/24 History blister powder for inhalation albuterol sulfate 2.5 mg/3 mL 2.5 mg inhalation Q6H PRN wheezing 08/02/23 05/06/24 Unknown History (0.083 %) solution for nebulization fluticasone furoate 200 1 inh inhalation DAILY 08/25/23 05/06/24 05/05/24 History mcg/actuation blister powder for inhalation (Arnuity Ellipta) linaclotide 145 mcg capsule 145 mcg PO DAILY 02/28/24 05/06/24 05/05/24 History (Linzess) metoclopramide HCl 10 mg tablet 10 mg PO TIDAC gastroparesis 02/28/24 05/06/24 05/05/24 History (Reglan) omeprazole 20 mg capsule,delayed 20 mg PO DAILY@0630 02/28/24 05/06/24 05/05/24 History release psyllium husk 0.52 gram capsule 1.04 g PO BID Constipation 02/28/24 05/06/24 05/05/24 History (Fiber Laxative (psyllium husk)) baclofen 10 mg tablet 10 mg PO TID 05/06/24 05/06/24 05/05/24 History metformin 1,000 mg tablet 1,000 mg PO BID 05/06/24 05/06/24 05/05/24 History naproxen 500 mg tablet 500 mg PO BID PRN pain 05/06/24 05/06/24 Unknown History Physical Exam 2 Vital Signs and Narrative: Vital Signs: Last Vital Signs Temp 98.4 F 05/06/24 10:14 Pulse 102 H 05/06/24 10:14 Resp 15 05/06/24 10:14 BP 144/63 H 05/06/24 10:14 Pulse Ox 92 05/06/24 10:14 O2 Del Method Nasal Cannula 05/06/24 10:14 O2 Flow Rate 2 05/06/24 10:14 BMI result Body Mass Index 24.7 Const: Other: Constitutional : Awake, interactive Neck : Normal inspection, Supple Cardiovascular : RRR, no JVP, no lower extremity edema Respiratory : decreased bilateral air entry, no crackles, bilateral expiratory wheezing , in mild resp distress Gastrointestinal: soft, lax, Normal bowel sounds, Non tender Skin : Warm, Dry Neurological : Alert & oriented x3, No focal deficit Results Labs 05/05/24 15:50 05/05/24 15:50 Labs: Laboratory Results - last 24 hr 05/05/24 05/06/24 05/06/24 15:50 07:54 08:40 MCV 84.6 MCH 25.9 L MCHC 30.6 L RDW 17.0 H Plt Count 312 MPV 10.0 Immature Gran % (Auto) 0.4 Neut % (Auto) 69.0 Lymph % (Auto) 22.3 [place] % (Auto) 6.3 Eos % (Auto) 1.4 Baso % (Auto) 0.6 Lymph # (Auto) 2.7 [place] # (Auto) 0.8 Eos # (Auto) 0.2 Baso # (Auto) 0.1 Abs Immat Gran (auto) 0.05 H Absolute Neuts (auto) 8.3 Absolute Nucleated RBC 0.000 Nucleated RBC % (auto) 0.0 VBG pH 7.44 H VBG pCO2 43 VBG pO2 123 VBG HCO3 30 H VBG O2 Saturation 100.0 VBG Base Excess 5.4 Anion Gap 14 Estim Creat Clear Calc 76.2 Estimated GFR > 60 POC Glucose 248 H Random Glucose 99 Calcium 10.2 Magnesium 1.2 L* Total Bilirubin 0.3 AST 11 ALT 9 Alkaline Phosphatase 64 Troponin I High Sens 4.6 D B-Natriuretic Peptide < 10 Total Protein 7.1 Albumin 4.5 Influenza Type A (PCR) NEGATIVE Influenza Type B (PCR) NEGATIVE RSV RNA Qual (PCR) NEGATIVE SARS-CoV-2 RNA (RT-PCR) NEGATIVE Imaging Radiologist's Impressions: Impressions Chest X-Ray 05/05/24 15:21 IMPRESSION: Unremarkable examination. 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 Acute on chronic hypoxic respiratory failure 2/2 COPD exacerbation IV steroids bronchodilator nebulizers Wean O2 down as tolerated Smoker Advised to quit Nicotine patches for now Type II DM w Gastroparesis continue PO meds SSI Continue Reglan Mixed hyperlipidemia On statin Hypertension Continue home antihypertensives Mood disorder Continue home mood stabilizers DVT prophylaxis: Lovenox Full code Quality Stroke Does the patient have a stroke diagnosis?: No VTE Prior VTE?: No VTE Risk Level:: Medical - moderate - high VTE Device Contraindication: Treatment Not Indicated VTE Drug Contraindication: N/A - Med Ordered
[2024-05-06] MEDS: Albuterol/Iprat 2.5/0.5MG 3 ML AMPUL.NEB INHALE ×3 (13:05→20:37)
[2024-05-06] MEDS: SITagliptin Phosphate 100 MG TABLET PO (13:25)
[2024-05-06] MEDS: Nicotine 14 MG PATCH.TD24 TRANSDERMA (13:25)
[2024-05-06] MEDS: Enoxaparin Sodium 40 MG/0.4 ML SYRINGE SUBCUT (13:25)
--- NOTE | 2024-05-06 13:51 | PC.NURSE ---
called [facility] to bring linezess medication from because our pharmacy does not carry it
[2024-05-06] MEDS: Gabapentin 400 MG CAPSULE 800 MG PO ×2 (15:29→21:53)
[2024-05-06] MEDS: 0.9 % Sodium Chloride Flush 3 ML SYRINGE IVFLUSH ×2 (15:29→21:54)
[2024-05-06] MEDS: Baclofen 10 MG TABLET PO ×2 (15:29→21:52)
[2024-05-06] MEDS: Metoclopramide HCl 10 MG TABLET PO (15:29)
--- NOTE | 2024-05-06 15:45 | MHC.CM.PN ---
HAZEL lomas. Patient lives in a mobile home w/ S.O. No AD's. Independent w/ most ADL's. 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 [employer] provides home O2 (2L @ baseline) and CPAP. Also has a shower chair and grab bars in bathroom. PCP Magalie Nicolas MD HCP on file and verified. DP: Goal is home resume PHYSICIAN GYNECOLOGIST services. S.O. to transport. CM will continue to follow.
[2024-05-06 16:09] LABS: Glucose, Whole Blood 103 mg/dL (60-115)
[2024-05-06] MEDS: Simethicone 80 MG TAB.CHEW 160 MG PO ×2 (16:49→21:52)
[2024-05-06] MEDS: methylPREDNISolone Sod Succ 40 MG/ML VIAL IVPUSH (18:12)
[2024-05-06 20:42] LABS: Glucose, Whole Blood 165 mg/dL (60-115)
[2024-05-06] MEDS: metFORMIN HCl 1,000 MG TABLET 1000 MG PO (21:53)
[2024-05-06] MEDS: Aspirin Enteric Coated 81 MG TABLET.DR PO (21:53)
[2024-05-06] MEDS: Psyllium seed 3.7 GM PACKET PO (21:53)
[2024-05-06] MEDS: Insulin Lispro 100 UNIT/ML 3 ML VIAL SUBCUT (21:54)
[2024-05-07] VITALS (9 sets, daily range): BP systolic 107–159; BP diastolic 59–77; PULSE 87–98; RESP 16–20; TEMP 36.3–37.1; O2SAT 93–96; BMI 24.7
[2024-05-07] MEDS: Omeprazole 20 MG CAPSULE.DR PO (06:32)
[2024-05-07 06:37] LABS: Hematocrit 38.4 % (37.0-47.0); Hemoglobin 11.3 g/dl (12.0-16.0); Mean Corpuscular HGB Conc 29.4 g/dl (31.0-35.0); Mean Corpuscular Hemoglobin 24.9 pg (27.0-33.0); Mean Corpuscular Volume 84.6 fL (80.0-98.0); Mean Platelet Volume 10.4 fL (9.4-12.3); Platelet Count 328 X10*3/uL (160-400); Red Blood Count 4.54 X10*6/uL (4.20-5.50); Red Cell Distribution Width 16.8 % (11.0-16.0); White Blood Count 12.2 X10*3/uL (4.8-10.8)
[2024-05-07] MEDS: methylPREDNISolone Sod Succ 40 MG/ML VIAL IVPUSH ×2 (06:41→18:04)
[2024-05-07 06:51] LABS: Anion Gap 16 (12-20); Blood Urea Nitrogen 8 mg/dL (9-16); Calcium 10.6 mg/dL (8.4-10.2); Carbon Dioxide 30 mmol/L (22-29); Chloride 102 mmol/L (96-108); Creatinine Clr Calc Pharmacy 72.1; Estimated Glomerular Filt Rate > 60; Glucose Random 128 mg/dL (60-115); Potassium 4.5 mmol/L (3.3-5.1); Sodium 143 mmol/L (135-145)
[2024-05-07 07:29] LABS: Glucose, Whole Blood 142 mg/dL (60-115)
[2024-05-07] MEDS: Fluticasone Propionate 250 MCG BLST.W.DEV 1 PUFF INHALE ×2 (07:42→18:36)
[2024-05-07] MEDS: Albuterol/Iprat 2.5/0.5MG 3 ML AMPUL.NEB INHALE ×3 (07:42→18:34)
[2024-05-07] MEDS: Tiotropium Bromide 2.5 mcg 1 PUFF/2.5 MCG MIST.INHAL 2 PUFF INHALE (07:42)
[2024-05-07] MEDS: Nicotine 14 MG PATCH.TD24 TRANSDERMA (08:20)
[2024-05-07] MEDS: Gabapentin 400 MG CAPSULE 800 MG PO ×3 (08:21→22:13)
[2024-05-07] MEDS: 0.9 % Sodium Chloride Flush 3 ML SYRINGE IVFLUSH ×2 (08:21→17:30)
[2024-05-07] MEDS: Metoclopramide HCl 10 MG TABLET PO ×3 (08:22→17:30)
[2024-05-07] MEDS: Cholecalciferol (Vitamin D3) 25 MCG TABLET 50 MCG PO (08:22)
[2024-05-07] MEDS: Losartan Potassium 50 MG TABLET PO (08:22)
[2024-05-07] MEDS: Atorvastatin Calcium 20 MG TABLET PO (08:22)
[2024-05-07] MEDS: Simethicone 80 MG TAB.CHEW 160 MG PO ×4 (08:22→22:13)
[2024-05-07] MEDS: Baclofen 10 MG TABLET PO ×3 (08:22→22:13)
[2024-05-07] MEDS: metFORMIN HCl 1,000 MG TABLET 1000 MG PO ×2 (08:22→22:13)
[2024-05-07] MEDS: amLODIPine Besylate 5 MG TABLET PO (08:22)
[2024-05-07] MEDS: SITagliptin Phosphate 100 MG TABLET PO (08:22)
[2024-05-07] MEDS: Flu Vacc TS2024-25(6mos up)/PF 0.5 ML SYRINGE IM (08:23)
[2024-05-07 11:45] LABS: Glucose, Whole Blood 218 mg/dL (60-115)
[2024-05-07] MEDS: Insulin Lispro 100 UNIT/ML 3 ML VIAL SUBCUT ×2 (11:49→22:21)
--- NOTE | 2024-05-07 13:25 | P.PNIM_ITS ---
Subjective Subjective Date of Service: 05/07/24 Interval History: seen and evaluated this morning feels little better, still wheezy and dyspneic no other overnight events Review of Systems No fever, chills or weakness No chest pain, palpitation shortness of breath and coughing No abdominal pain, nausea or vomiting No urinary symptoms No any rash or wounds Physical Exam 2 Vital Signs: Vital Signs: Last Vital Signs Temp 97.4 F 05/07/24 07:59 Pulse 91 05/07/24 11:13 Resp 18 05/07/24 11:13 BP 139/64 05/07/24 08:22 Pulse Ox 94 05/07/24 07:59 O2 Del Method Nasal Cannula 05/07/24 07:59 O2 Flow Rate 2 05/07/24 07:59 BMI result Body Mass Index 24.7 Const: Other: Constitutional : Awake, interactive Neck : Normal inspection, Supple Cardiovascular : RRR, no JVP, no lower extremity edema Respiratory : decreased bilateral air entry, no crackles, bilateral expiratory wheezing , in mild resp distress Gastrointestinal: soft, lax, Normal bowel sounds, Non tender Skin : Warm, Dry Neurological : Alert & oriented x3, No focal deficit Objective Data Active Medications Acetaminophen (Acetaminophen 325 Mg Tablet) 650 mg PO Q6H PRN PRN Reason: Pain, Mild (Pain Scale 1-3), fever or headache Albuterol Sulfate (Albuterol Sulfate (0.083%) 2.5 Mg/3 Ml Vial.Neb) 2.5 mg INHALE Q6H PRN PRN Reason: wheezing Albuterol/Ipratropium (Albuterol/Iprat 2.5/0.5mg 3 Ml Ampul.Neb) 3 ml INHALE RQ4H [facility] Last Admin: 05/07/24 11:12 Dose: 3 ml Documented By: MARISOL Amlodipine Besylate (Amlodipine Besylate 5 Mg Tablet) 5 mg PO DAILY [facility]; Protocol Last Admin: 05/07/24 08:22 Dose: 5 mg Documented By: ALEJANDRA Aspirin (Aspirin Enteric Coated 81 Mg Tablet.) 81 mg PO BEDTIME [facility] Last Admin: 05/06/24 21:53 Dose: 81 mg Documented By: DARYN Atorvastatin Calcium (Atorvastatin Calcium 20 Mg Tablet) 20 mg PO DAILY [facility] Last Admin: 05/07/24 08:22 Dose: 20 mg Documented By: ALEJANDRA Baclofen (Baclofen 10 Mg Tablet) 10 mg PO TID [facility] Last Admin: 05/07/24 08:22 Dose: 10 mg Documented By: ALEJANDRA Calcium Carbonate (Calcium Carbonate 750 Mg Tab.Chew) 750 mg PO Q4H PRN PRN Reason: Heartburn Enoxaparin Sodium (Enoxaparin Sodium 40 Mg/0.4 Ml Syringe) 40 mg SUBCUT Q24H [facility] Last Admin: 05/06/24 13:25 Dose: 40 mg Documented By: SANJUANITA Fluticasone Propionate (Fluticasone Propionate 250 Mcg Blst.W.Dev) 1 puff INHALE RBID [facility] Last Admin: 05/07/24 07:42 Dose: 1 puff Documented By: MARISOL Gabapentin (Gabapentin 400 Mg Capsule) 800 mg PO TID [facility] Last Admin: 05/07/24 08:21 Dose: 800 mg Documented By: ALEJANDRA Insulin Human Lispro (Insulin Lispro 100 Unit/Ml 3 Ml Vial) 0 unit SUBCUT QIDACHS [facility]; Protocol Last Admin: 05/07/24 11:49 Dose: 4 unit Documented By: ALEJANDRA Losartan Potassium (Losartan Potassium 50 Mg Tablet) 50 mg PO DAILY [facility]; Protocol Last Admin: 05/07/24 08:22 Dose: 50 mg Documented By: ALEJANDRA Magnesium Hydroxide (Milk Of Magnesia 30 Ml Oral.Susp) 30 ml PO DAILY PRN PRN Reason: Constipation Melatonin (Melatonin 3 Mg Tablet) 6 mg PO BEDTIME PRN PRN Reason: Insomnia Metformin HCl (Metformin Hcl 1,000 Mg Tablet) 1,000 mg PO BID [facility] Last Admin: 05/07/24 08:22 Dose: 1,000 mg Documented By: ALEJANDRA Methylprednisolone Sodium Succinate (Methylprednisolone Sod Succ 40 Mg/Ml Vial) 40 mg IVPUSH Q12H [facility] Last Admin: 05/07/24 06:41 Dose: 40 mg Documented By: NAS Metoclopramide HCl (Metoclopramide Hcl 10 Mg Tablet) 10 mg PO TIDAC [facility] Last Admin: 05/07/24 11:50 Dose: 10 mg Documented By: ALEJANDRA Nicotine (Nicotine 14 Mg Patch.Td24) 14 mg TRANSDERMA DAILY [facility] Last Admin: 05/07/24 08:20 Dose: 14 mg Documented By: ALEJANDRA Patient Own Medication ( Linaclotide [Linzess ] 145 Mcg Capsule) 145 mcg PO DAILY [facility] Last Admin: 05/07/24 08:23 Dose: 145 mcg Documented By: ALEJANDRA Omeprazole (Omeprazole 20 Mg Capsule.) 20 mg PO DAILY@0630 [facility] Last Admin: 05/07/24 06:32 Dose: 20 mg Documented By: NAS Ondansetron HCl (Ondansetron Hcl 4 Mg/2 Ml Vial) 4 mg IVPUSH Q8H PRN PRN Reason: Nausea and Vomiting Polyethylene Glycol (Polyethylene Glycol 3350 17 Gm Powd.Pack) 17 gm PO DAILY PRN PRN Reason: Constipation Psyllium Hydrophilic Mucilloid (Psyllium Seed 3.7 Gm Packet) 3.7 gm PO BID [facility] Last Admin: 05/07/24 08:30 Dose: Not Given Documented By: ALEJANDRA Non-Admin Reason: Patient Refused Simethicone (Simethicone 80 Mg Tab.Chew) 160 mg PO QID [facility] Last Admin: 05/07/24 08:22 Dose: 160 mg Documented By: ALEJANDRA Sitagliptin Phosphate (Sitagliptin Phosphate 100 Mg Tablet) 100 mg PO DAILY [facility] Last Admin: 05/07/24 08:22 Dose: 100 mg Documented By: ALEJANDRA Sodium Chloride (0.9 % Sodium Chloride Flush 3 Ml Syringe) 3 ml IVFLUSH QSHIFT [facility] Last Admin: 05/07/24 08:21 Dose: 3 ml Documented By: ALEJANDRA Tiotropium Venetie (Tiotropium Venetie 2.5 Mcg 1 Puff/2.5 Mcg Mist.Inhal) 2 puff INHALE RDAILY [facility] Last Admin: 05/07/24 07:42 Dose: 2 puff Documented By: MARISOL Vitamin D (Cholecalciferol (Vitamin D3) 25 Mcg Tablet) 50 mcg PO DAILY [facility] Last Admin: 05/07/24 08:22 Dose: 50 mcg Documented By: ALEJANDRA Labs 05/07/24 05:44 05/07/24 05:44 Labs: Laboratory Results - last 24 hr 05/06/24 05/06/24 05/07/24 15:56 20:37 05:44 MCV 84.6 MCH 24.9 L MCHC 29.4 L RDW 16.8 H Plt Count 328 MPV 10.4 Absolute Nucleated RBC 0.000 Nucleated RBC % (auto) 0.0 Anion Gap 16 Estim Creat Clear Calc 72.1 Estimated GFR > 60 POC Glucose 103 165 H Random Glucose 128 H Calcium 10.6 H 05/07/24 05/07/24 07:21 11:33 MCV MCH MCHC RDW Plt Count MPV Absolute Nucleated RBC Nucleated RBC % (auto) Anion Gap Estim Creat Clear Calc Estimated GFR POC Glucose 142 H 218 H Random Glucose Calcium Assessment and Plan (1) Acute exacerbation of chronic obstructive pulmonary disease: Status: Acute (2) Acute on chronic hypoxic respiratory failure: Status: Acute Plan A 63 years old lady with PMH of COPD on 2L O2, smoker, GERD, HTN who presents with worsening SOB and dyspnea for couple of days [employer]. Acute on chronic hypoxic respiratory failure 2/2 COPD exacerbation continue IV steroids bronchodilator nebulizers Wean O2 down as tolerated Smoker Advised to quit Nicotine patches for now Type II DM w Gastroparesis continue PO meds SSI Continue Reglan Mixed hyperlipidemia On statin Hypertension Continue home antihypertensives Mood disorder Continue home mood stabilizers DVT prophylaxis: Lovenox Full code The patient will need overnight hospital stay for hypoxic respiratory failure and ongoing dyspnea. Quality Stroke Does the patient have a stroke diagnosis?: No VTE Prior VTE?: No VTE Risk Level:: Medical - moderate - high VTE Device Contraindication: Treatment Not Indicated VTE Drug Contraindication: N/A - Med Ordered
[2024-05-07] MEDS: Enoxaparin Sodium 40 MG/0.4 ML SYRINGE SUBCUT (14:00)
[2024-05-07 16:11] LABS: Glucose, Whole Blood 140 mg/dL (60-115)
[2024-05-07 20:13] LABS: Glucose, Whole Blood 165 mg/dL (60-115)
[2024-05-07] MEDS: Psyllium seed 3.7 GM PACKET PO (22:13)
[2024-05-07] MEDS: Aspirin Enteric Coated 81 MG TABLET.DR PO (22:13)
[2024-05-08] MEDS: 0.9 % Sodium Chloride Flush 3 ML SYRINGE IVFLUSH ×2 (01:03→07:31)
[2024-05-08 04:00] VITALS: BP 131/60; PULSE 79; RESP 18; TEMP 36.3; O2SAT 99
[2024-05-08] MEDS: methylPREDNISolone Sod Succ 40 MG/ML VIAL IVPUSH (06:00)
[2024-05-08] MEDS: Omeprazole 20 MG CAPSULE.DR PO (06:00)
[2024-05-08 07:08] VITALS: BP 145/65; PULSE 74; RESP 18; TEMP 36.8; O2SAT 99
[2024-05-08 07:27] LABS: Glucose, Whole Blood 151 mg/dL (60-115)
[2024-05-08] MEDS: Baclofen 10 MG TABLET PO (07:35)
[2024-05-08] MEDS: Gabapentin 400 MG CAPSULE 800 MG PO (07:35)
[2024-05-08] MEDS: Nicotine 14 MG PATCH.TD24 TRANSDERMA (07:35)
[2024-05-08] MEDS: Atorvastatin Calcium 20 MG TABLET PO (07:35)
[2024-05-08] MEDS: Psyllium seed 3.7 GM PACKET PO (07:35)
[2024-05-08] MEDS: Metoclopramide HCl 10 MG TABLET PO (07:36)
[2024-05-08] MEDS: Simethicone 80 MG TAB.CHEW 160 MG PO (07:36)
[2024-05-08] MEDS: Cholecalciferol (Vitamin D3) 25 MCG TABLET 50 MCG PO (07:36)
[2024-05-08] MEDS: metFORMIN HCl 1,000 MG TABLET 1000 MG PO (07:36)
[2024-05-08] MEDS: Losartan Potassium 50 MG TABLET PO (07:36)
[2024-05-08] MEDS: SITagliptin Phosphate 100 MG TABLET PO (07:36)
[2024-05-08] MEDS: amLODIPine Besylate 5 MG TABLET PO (07:36)
[2024-05-08] MEDS: Fluticasone Propionate 250 MCG BLST.W.DEV 1 PUFF INHALE (08:10)
[2024-05-08] MEDS: Tiotropium Bromide 2.5 mcg 1 PUFF/2.5 MCG MIST.INHAL 2 PUFF INHALE (08:10)
[2024-05-08 08:18] VITALS: PULSE 74; RESP 18; O2SAT 94
[2024-05-08] MEDS: Albuterol/Iprat 2.5/0.5MG 3 ML AMPUL.NEB INHALE (08:18)
--- NOTE | 2024-05-08 10:48 | PM.DS ---
DS: Providers Provider Date of Service: 05/08/24 Date of admission: 05/07/24 13:09 Date of discharge: 05/08/24 Primary care physician: Magalie Nicolas MD DS: Diagnosis Discharge Diagnosis (1) Acute exacerbation of chronic obstructive pulmonary disease: Status: Acute (2) Acute on chronic hypoxic respiratory failure: Status: Acute DS: Summary Hospital Course Hospital Course: Admission note HPI A 63 years old lady with PMH of COPD on 2L O2, smoker, GERD, HTN who presents with worsening SOB and dyspnea for couple of days [employer]. The patient reports feeling winded and short of breath with minimal exertion that has been worsening over the last few days. No chest pain, palpitations, nausea, vomiting, diarrhea or urinary symptoms. she noticed wheezing and coughing and had to use her prn nebulizer as inhalers were not helping much. In ED found hypoxic in 80s% on her 2L home O2. CXR not showing any acute findings. admitted for COPD exacerbation. Hospital course The patient was admitted and treated for Acute on chronic hypoxic respiratory failure secondary to COPD exacerbation. She was started on IV steroids along with bronchodilator nebulizers and O2 supplement with fair response as she was weaned down O2 to her 2L home O2 and dyspnea w SOB feeling improved significantly. To continue tapering dose Prednisone and home nebulizers upon discharge. She is a current Smoker who was advised to quit and supplied with Nicotine patches on discharge. Discharge plan Start PRednisone tapering dose as prescribed Use your home nebulizer 3-4 times a day for the next 3 days then as needed We advise you to quit smoking completely; use Nicotine patches daily Time Attestation Discharge Coordination Time (in mins): 38 Quality: Safe Use of Opioids Does Pt have an Active Cancer Diagnosis on the Problem List?: No Quality: Stroke Does the patient have a stroke diagnosis?: No Physical Exam Vital Signs: Vital Signs: Last Vital Signs Temp 98.2 F 05/08/24 07:08 Pulse 74 05/08/24 08:18 Resp 18 05/08/24 08:18 BP 145/65 H 05/08/24 07:08 Pulse Ox 99 05/08/24 07:08 O2 Del Method Nasal Cannula 05/08/24 07:08 O2 Flow Rate 2.0 05/08/24 07:08 BMI result Body Mass Index 24.7 Const: Other: Constitutional : Awake, interactive, not in distress Neck : Normal inspection, Supple Cardiovascular : RRR, no JVP, no lower extremity edema Respiratory : good bilateral air entry, no crackles, no wheezes , on 2L O2 supplement Gastrointestinal: soft, lax, Normal bowel sounds, Non tender Skin : Warm, Dry Neurological : Alert & oriented x3, No focal deficit DS: Data Data Completed and Pending Labs on day of discharge: Laboratory Results - last 24 hr 05/07/24 05/07/24 05/07/24 11:33 15:56 19:57 POC Glucose 218 H 140 H 165 H 05/08/24 07:13 POC Glucose 151 H Imaging Chest x-ray: Radiologist's impression: ITS Impressions Chest X-Ray 05/05/24 15:21 IMPRESSION: Unremarkable examination. Electronically signed by: Ni Coleman MD 05/05/2024 04:28 PM EDT RP Discharge Plan Discharge Anticipated Discharge Date/Time: 05/08/24 10:43 Patient Disposition: Home, Self-Care Discharge Diagnosis: COPD exacerbation Referrals: Magalie Nicolas MD [Primary Care Provider] - 1 Week Discharge Medications: New nicotine 14 mg/24 hr Patch 24 Hour 14 mg transdermal DAILY Qty: 30 0RF prednisone 10 mg tablet See Taper PO DIRECTED Qty: 30 0RF Taper: Prednisone 40 mg daily for 3 Days and 0 Hour 30 mg daily for 3 Days and 0 Hour 20 mg daily for 3 Days and 0 Hour 10 mg daily for 3 Days and 0 Hour Rx Instructions: see taper instructions Continued (DME) lancets [FreeStyle Lancets] 28 gauge misc See Rx Instructions .Route Qty: 100 5RF Rx Instructions: As directed twice a day AC (DME) FreeStyle Lite Strips Strip See Rx Instructions .Route Qty: 100 0RF Rx Instructions: check fasting blood sugar twice a day before meals (DME) FreeStyle Cristian 2 Sensor Kit See Rx Instructions .Route Qty: 6 3RF Rx Instructions: Test blood sugar 4 times per day (DME) FreeStyle Cristian 2 [place] Misc See Rx Instructions .Route Qty: 1 0RF Rx Instructions: test blood sugar 4 times per day losartan 50 mg tablet 50 mg PO DAILY Qty: 90 1RF Januvia 100 mg tablet 100 mg PO DAILY Qty: 90 1RF cholecalciferol (vitamin D3) 50 mcg (2,000 unit) capsule 50 mcg PO DAILY Qty: 90 1RF rosuvastatin 5 mg tablet 5 mg PO DAILY Qty: 90 1RF simethicone 180 mg capsule 180 mg PO QID Qty: 120 6RF gabapentin 800 mg tablet 800 mg PO TID 30 Days Qty: 90 6RF amlodipine 5 mg tablet 5 mg PO DAILY Qty: 90 0RF albuterol sulfate 2.5 mg /3 mL (0.083 %) solution for nebulization 2.5 mg inhalation Q6H PRN (Reason: wheezing) omeprazole 20 mg capsule,delayed release(DR/EC) 20 mg PO DAILY@0630 psyllium husk [Fiber Laxative (psyllium husk)] 0.52 gram capsule 1.04 g PO BID Linzess 145 mcg capsule 145 mcg PO DAILY metoclopramide HCl [Reglan] 10 mg tablet 10 mg PO TIDAC baclofen 10 mg tablet 10 mg PO TID metformin 1,000 mg tablet 1,000 mg PO BID naproxen 500 mg tablet 500 mg PO BID PRN (Reason: pain) umeclidinium 62.5 mcg/actuation blister with device 1 inh inhalation DAILY Rx Instructions: Encruse aspirin [Adult Low Dose Aspirin] 81 mg tablet,delayed release (DR/EC) 81 mg PO BEDTIME (DME) blood-glucose meter [FreeStyle Lite Meter] Kit See Rx Instructions .Route Qty: 1 0RF Rx Instructions: As directed twice a day before meals Arnuity Ellipta 200 mcg/actuation blister with device 1 inh inhalation DAILY Discharge Orders: Discharge Order (Routine); Ordered 05/08/24 Ordered By: Isabell Manzo Diet: Low salt diet Activity on Discharge: As tolerated Stand Alone Forms: Patient Portal Discharge page Print Language: Cymraes Care Plan Goals: Start PRednisone tapering dose as prescribed Use your home nebulizer 3-4 times a day for the next 3 days then as needed We advise you to quit smoking completely; use Nicotine patches daily Health Concerns: Read below Plan of Treatment: Read below Assessment: Read below Patient Instructions: COPD (Chronic Obstructive Pulmonary Disease) (ED)
--- NOTE | 2024-05-08 11:17 | MHC.CM.PN ---
DP: PT HAS BEE MEDICALLY CLEARED FOR DC HOME, NO SERVICES. S/O WILL TRANSPORT
== END 2024-05-08 11:29 | disposition home or self-care (01) | DRG 140 ==
LOC: HO.ED 05-06 09:03 → HO.EDOVER 05-06 13:04 → HO.S3 05-06 13:30
PROVIDERS: Physician Assistant Medical; Admitting Provider Student in an Organized Health Care Education/Training Program; Emergency Provider Emergency Medicine; PCP Internal Medicine; Visit Provider Student in an Organized Health Care Education/Training Program
DX: J44.1 Chronic obstructive pulmonary disease with (acute) exacerbation (principal); E11.43 Type 2 diabetes mellitus with diabetic autonomic (poly)neuropathy; K31.84 Gastroparesis; Z99.81 Dependence on supplemental oxygen; E78.2 Mixed hyperlipidemia; F39 Unspecified mood [affective] disorder; F17.210 Nicotine dependence, cigarettes, uncomplicated; Z20.822 Contact with and (suspected) exposure to COVID-19; Z71.6 Tobacco abuse counseling; Z79.51 Long term (current) use of inhaled steroids; Z79.82 Long term (current) use of aspirin; Z79.899 Other long term (current) drug therapy
CPT/HCPCS: 0241U; 36415; 71046; 80048; 80053; 82803; 82947; 83735; 83880; 84484; 85025; 85027; 90656; 93005; 94640; 96365; 96366; 96372; 96375; 96376; 99285; J1650; J2919; J3475

== ENCOUNTER → 2024-05-06 12:53 | Outpatient (BNV) | payer OTHER, SELFPAY | PROVIDERS: Admitting Provider Student in an Organized Health Care Education/Training Program; Emergency Provider Emergency Medicine; PCP Internal Medicine; Visit Provider Student in an Organized Health Care Education/Training Program | DX: J44.1 Chronic obstructive pulmonary disease with (acute) exacerbation (principal); J96.21 Acute and chronic respiratory failure with hypoxia | CPT/HCPCS: 99223; 99232; 99239 ==

== ENCOUNTER 2024-05-17 14:46 | Outpatient (AMB) | payer OTHER, SELFPAY ==
--- NOTE | 2024-05-17 14:47 | A.OFFVIS_ITS ---
Vital Signs 05/17/24 14:48 Height 4 ft 9 in Weight 112 lb 6.972 oz BMI 24.3 BP 146/65 H Blood Pressure Location Lt brachial Position Sitting Pulse 104 H Intake Visit Reasons: Abdominal pain Intake Note: Maria Elena presents to in office follow up of abdominal pain. CC:Patient presented to ED on 04/17 with main c/o worsening exertional dyspnea with productive cough and wheezing. At the time, she was also consulted by GI for c/o epigastric pain. Today she c/o epigastric pain and diarrhea. Oil Heat Technician Required: No Allergies amoxicillin [AMOXICILLIN] Allergy (Intermediate, Verified 05/17/24 14:59) RASH HPI HPI Abdominal pain: Details: Assessment & Plan (1) GERD (gastroesophageal reflux disease): Code(s): K21.9 - Gastro-esophageal reflux disease without esophagitis Category: Medical Qualifiers: Esophagitis presence: without esophagitis Qualified Code(s): K21.9 - Gastro-esophageal reflux disease without esophagitis (2) Diabetic gastroparesis: Code(s): E11.43 - Type 2 diabetes mellitus with diabetic autonomic (poly)neuropathy; K31.84 - Gastroparesis Category: Medical (3) Chronic idiopathic constipation: Code(s): K59.04 - Chronic idiopathic constipation Category: Medical (4) Pre-op examination: Code(s): Z01.818 - Encounter for other preprocedural examination Category: Medical Plan She has been well and is agreeable to scheduling colonoscopy. She has COPD that is currently controlled and diastolic heart failure that is controlled. There are no prior problems with anesthesia or sedation. There are no infectious disease problems. She continues on her Linzess 145 micro g, omeprazole 20 mg a day, fiber supplement, simethicone, and Reglan with good control of her constipation, gastroparesis in GERD. She feels she is stable. Her last colonoscopy was in 2012 and was negative. There is no known family history of colon cancer or polyps. ROV 6 mos. Orders: Orders Colonoscopy - GI Use Only 12/30/23 Z01.818 - Encounter for other preprocedural examination HOSPITAL GI FOLLOW-UP-I SAW (1) Acute exacerbation of chronic obstructive pulmonary disease: Status: Acute Plan 1/ Non specific upper Gi sx, and vague history from patient, prior imaging and EGD as above, underlying GES, no obvious cause for this, could also be havign sx from nsaid use, metformin and other meds she takes - PLAN: 1/ Encourage PO diet as tolerated, can try protein shakes and soft diet if better tolerated 2/ Ba swallow and follow thru--hold EGD right now due to her acute COPD exacerbation and high anesthesia risk 3/ consider increasing PPI dose to 40 mg daily 4/ small meals, low fiber diet, avoid greasy, fat food 5/ check A1AT level DISCHARGE SUMMARY Acute on chronic hypoxia due to exacerbation of COPD in the setting of pneumonia, treated with IV Rocephin and azithromycin and steroids, responded well to above treatment oxygenation improved, currently on 2 L of baseline oxygen, patient finished course of steroids and antibiotics, recommend to contin ue home inhalers, she was noted to have acute lactic acidosis likely due to albuterol use, hypoxia and Glucophage, she is recommended to discontinue Glucophage and follow-up with PCP.. In regard to epigastric pain, CT abdomen and pelvis showed no acute abnormality, seen by Dr. Payton from Gastroenterology he recommended small bowel series that showed cricopharyngeal mild achalasia, esophageal dysmotility, findings suggestive of gastritis and celiac disease,Celiac diagnostic glidin TTG and alpha-1 antitrypsin obtained report pending, recommend outpatient follow-up with Gastroenterology recommend to continue Prilosec and Reglan. CT abdomen showed intermediate to high density structure projecting of the mid to lower pole of right kidney measuring 2.5 cm, therefore renal ultrasound obtained that showed slightly hypo echoic focus projecting of the mid pole of the right kidney measuring 3 cm, therefore Urology consult obtained, CT abdomen with renal mass protocol was done, it showed 3.4 cm right lower pole enhancing renal mass consistent with renal cell carcinoma, informed patient and her healthcare proxy Wiley phone number [phone] as per patient's request and informed him about patient's diagnosis and emphasized on outpatient urology follow-up, also notified patient's urologist Dr. Anny Rangel she recommended outpatient follow-up urology, likely will need cryo ablation by Interventional Radiology In regard to [id number] diabetes mellitus with hyperglycemia, she is recommended to continue Januvia and diabetic diet, her last documented hemoglobin A1c is 5.5 on 10/2023. She is recommended to continue all home medications for hyperlipidemia, hypertension and mood disorder. CT ABDOMEN 04/19/24 FINDINGS: LUNG BASES: Scarring present at the lung bases with some traction bronchiectasis on the right. There are a number of small pulmonary nodules seen at the right lung base the largest measuring 5 mm (6:22). LIVER, GALLBLADDER, AND BILIARY TREE: The liver, gallbladder and bile ducts are unremarkable. PANCREAS: Normal. SPLEEN: Normal. ADRENAL GLANDS: Normal. KIDNEYS: Right: There is a large 3.4 x 2.4 x 2.4 cm right lower pole enhancing renal mass consistent with a renal cell carcinoma. The mass extends to just before the level of the renal sinus. There are 2 additional tiny masses seen in the mid to upper left kidney laterally which measure 0.6 cm and 0.5 cm which may represent either tiny angiomyolipomas or cysts. In either case, these are not worrisome findings. No nephrocalcinosis. No hydronephrosis. The right ureter appears normal. Left: The left kidney and ureter appear normal. BOWEL LOOPS: Dense barium is present throughout the colon. No evidence of bowel obstruction. LYMPH NODES: No retroperitoneal lymphadenopathy. VASCULAR: Calcific atherosclerotic changes are present in the aorta and iliofemoral vessels with significant area of stenosis in the infrarenal aorta as well as in the iliac vessels. I suspect that this patient is a smoker and this represents Leriche syndrome. There is no evidence of an abdominal aortic aneurysm. BONES: Mild degenerative changes are present in the spine. No bony destructive lesions are seen to suggest metastatic disease. CT/CT abdomen wo/w IV con IMPRESSION: 1. A 3.4 cm right lower pole enhancing renal mass consistent with renal cell carcinoma. 2. No evidence of metastatic disease in the abdomen or pelvis. 3. Other incidental findings as described above including severe aortoiliac atherosclerotic changes with stenosis of the infrarenal aorta and iliac vessels. This patient is likely a smoker and this represents Leriche syndrome. 4. Incidentally noted pulmonary nodules, the largest measuring [address] at 3-6 months (per oncology protocol) to confirm persistence. Laboratory Tests 04/20/24 15:19 Tiss Transglutamin IgG <1.0 Tiss Transglutamin IgA <1.0 Anti-Gliadin IgG Ab <1.0 Gliadin (Deamidat) IgA <1.0 UPPER GI STUDY 04/18/24 FINDINGS: Images of the oropharynx and hypopharynx demonstrate normal swallow mechanism with normal epiglottic inversion and soft palate elevation. No tracheal penetration, glottic or subglottic aspiration identified. No nasopharyngeal reflux present. Hypopharyngeal structures appear normal without evidence of mass or diverticulum. There is ballooning of the hypopharynx with mild cricopharyngeal achalasia present. Dual and single contrast images of the esophagus demonstrate normal caliber, contour, and mucosal pattern. No evidence of stricture, mass, or ulcerations identified. There is to and fro motion of the barium column with nonpropulsive tertiary contractions noted throughout the esophagus. No evidence of hiatus hernia identified. No significant gastroesophageal reflux was seen during the course of the examination and on reflux views. Dual contrast and single contrast images of the stomach demonstrated a normal contour. The gastric rugal folds have a very thickened appearance, suggestive of gastritis. No masses or ulcerations are seen. Contrast freely passed into the gastric antrum and duodenal bulb without delay. Single and air-contrast images of the duodenal bulb demonstrate no abnormality. The duodenal sweep has a normal appearance, course, and mucosal fold appearance. The imaged small bowel has a normal caliber. Jejunal folds appear prominent, and there appears to be jejunalization of the ileal fold pattern. No masses, strictures, or dilated loops are present. There is a rapid transit of the barium column with contrast observed in the right colon after 15 minutes. FLUOROSCOPY TIME: 5 minutes 52 seconds Number of Spot Images: 7 Number of Cine: 13 DOSE AREA PRODUCT: 3187 uGy-m2 (microgray-meter squared) FL/FL barium swallow w SBFT IMPRESSION: 1. Ballooning of the hypopharynx of mild cricopharyngeal achalasia present. 2. Esophageal dysmotility. 3. Thickened appearance of the gastric rugal folds, suggestive of gastritis. 4. Rapid transit of the barium column, with contrast observed in the right colon after 15 minutes. Mild fold thickening throughout the jejunum. Also, there appears to be jejunalization of the ileal fold pattern. These findings are typically associated with celiac disease. COLONOSCOPY Probably should be put on hold relative to her respiratory status BIOPSY TODAY'S VISIT She is here today with her life partner who is supportive. Maria Elena does not feel well at all. She has presented to the ER twice for abdominal pain and each time she was found to be in respiratory failure. She continues to have pain that seems to be in the gastric area. She has a difficult time telling me how often the pain occurs or how long it lasts and she is uncertain if it happens every day. When she does have it it is around 7/10. She does not think that it is related to eating or moving her bowels but she has not paid attention to it enough to really make any connections. Sintia also has some intellectual limitations making her rather a poor historian. Because of this I would like her to keep a journal of her symptoms to see if we can make some connections. At this point, I think her respiratory status is too poor to consider an endoscopy and colonoscopy. To date she has had 2 CT scans, an upper GI with small-bowel follow-through study which have been relatively unrevealing except for some esophageal dysmotility. There was also some suspicion of celiac disease but her tissue transglutaminase labs were negative. She is also currently being worked up by Urology for an unexplained renal mass. It is uncertain whether this could be contributing to her symptoms as well. For now we are going to try to manage the symptoms I want to change her from omeprazole 20 mg 2 lansoprazole 30 mg once a day and famotidine at night. She continues on her metoclopramide 10 mg 3 times a day. I am going to decrease the Linzess from 145 micro g of 72 micro g because she seems to be having diarrhea which again she is unable to tell me exactly how often this happens. However it is possible the bowel spasm is contributing to her pain. Return office visit in 4 weeks [facility] Medical History Diabetic gastroparesis Chronic lung disease COPD (chronic obstructive pulmonary disease) Type 2 diabetes mellitus without complication, with no history of insulin use Mixed dyslipidemia Essential hypertension GERD (gastroesophageal reflux disease) Gastroparesis Diastolic CHF with preserved left ventricular function, NYHA class 2 Chronic hypercapnic respiratory failure Type 2 diabetes mellitus with other diabetic kidney complication Type 2 diabetes mellitus without complication, with no history of insulin use Smoker unmotivated to quit Postlaminectomy syndrome of cervical region Seasonal allergic rhinitis Degenerative disc disease, cervical Postmenopause Dyslipidemia Surgical History H/O cervical discectomy History of esophagogastroduodenoscopy (EGD) Hx of colonoscopy Family History Mother Diabetes Sister Diabetes Mental health disorder Brother Diabetes Father HTN (hypertension) Social History Household Members: Other Housing: Other Housing Other:: mobile home Do you presently have visiting nurse or other home services: No Alcohol intake: former Comment: Commode/ Hi Flow O2 Patient Tobacco Use Status: Current everyday Tobacco user Tobacco use type: Cigarette Cigarette Packs Per Day: 1 Cigarettes Per Day: 20.0 Years Smoked: 50 e-Cigarette/Vaping Use: Never Used Second Hand Smoke Exposure: Yes Advance Directives Date on File: 09/20/21 service: No Current occupational status: unemployed Cognitive needs: No Hearing needs: No Vision needs: Yes Review of Systems Const Denies fatigue, Denies fever(s), Denies night sweats, Denies poor appetite and Denies weight loss Eyes Details: glasses Reports requires corrective lenses ENT Reports Normal hearing present, Denies dental pain, Denies dysphagia, Denies hearing loss, Denies mouth pain, Denies odynophagia, Denies throat swelling, Denies tongue swelling and Reports other (Dentition adequate) Card Reports no additional complaints and Reports dyspnea on exertion Resp Reports dyspnea on exertion GI Details: Reports abdominal pain, Denies melena, Denies bloating, Denies hematochezia, Reports constipation, Denies GI cramping, Denies dysphagia, Denies excessive flatus, Denies early satiety, Reports heartburn, Reports diarrhea, Denies nausea, Denies odynophagia, Denies vomiting and Denies hematemesis Skin/Breast Denies pruritus, Denies lesions, Denies rash and Denies jaundice Neuro Reports Normal hearing present and Denies Abnormal speech present Endo Denies fatigue Aller/Immun Denies throat swelling and Denies tongue swelling Physical Exam Vital Signs: Last Vital Signs Pulse 104 H 05/17/24 14:48 BP 146/65 H 05/17/24 14:48 BMI result Body Mass Index 24.3 Const General: cooperative, no acute distress, well developed and well groomed Nutritional Appearance: well nourished and overweight Orientation/consciousness: oriented to person, oriented to place and oriented to time Limitations: No language barrier and other limitations HEENT Head: Yes normocephalic and Yes atraumatic Eyes General: appearance normal, both eyes and all related structures Pupils: Equal, round and reactive pupils present Neck Neck: Yes normal visual inspection and Yes no lymphadenopathy Thyroid: Thyroid normal Resp Effort & Inspection: normal respiratory effort and able to speak in complete sentences Cardio Rate: regular rate Rhythm: regular rhythm Heart sounds: Normal, physiologic split S2 sound present Peripheral pulses: radial pulses present and posterior tibial pulses present GI Inspection: No distended and No Abdominal panniculus present Palpation (GI): Soft to palpation, Tenderness to palpation present (GI) (Midline upper abdomen), no guarding, not rigid and No hepatosplenomegaly present Percussion: Yes normal to percussion Auscultation: normal bowel sounds Rectal Exam - Female: deferred Skin General skin exam: no rashes or lesions noted, turgor normal, skin not dry, no jaundice, No spider nevi and no striae Rashes: no rashes Nails: normal Neuro General: oriented to person, oriented to place and oriented to time Cranial nerves: Yes Equal, round and reactive pupils present and Yes Normal hearing present Speech: No Abnormal speech present Extrem General: Yes normal to inspection, No clubbing, No cyanosis and No edema Psych Appearance: grossly normal and well kempt Mental Status: mental status grossly normal Speech and movement: Normal speech and movement present Affect: normal affect Thought process: Circumstantial thought process present, not confabulating and Impoverished thought process present Thought content: Normal thought content present Insight: Poor insight present (Psych) Judgement: Poor judgement present (Psych) Results Reviewed Results Reviewed: HOSPITAL GI FOLLOW-UP-I SAW (1) Acute exacerbation of chronic obstructive pulmonary disease: Status: Acute Plan 1/ Non specific upper Gi sx, and vague history from patient, prior imaging and EGD as above, underlying GES, no obvious cause for this, could also be havign sx from nsaid use, metformin and other meds she takes - PLAN: 1/ Encourage PO diet as tolerated, can try protein shakes and soft diet if better tolerated 2/ Ba swallow and follow thru--hold EGD right now due to her acute COPD exacerbation and high anesthesia risk 3/ consider increasing PPI dose to 40 mg daily 4/ small meals, low fiber diet, avoid greasy, fat food 5/ check A1AT level DISCHARGE SUMMARY Acute on chronic hypoxia due to exacerbation of COPD in the setting of pneumonia, treated with IV Rocephin and azithromycin and steroids, responded well to above treatment oxygenation improved, currently on 2 L of baseline oxygen, patient finished course of steroids and antibiotics, recommend to continue home inhalers, she was noted to have acute lactic acidosis likely due to albuterol use, hypoxia and Glucophage, she is recommended to discontinue Glucophage and follow-up with PCP.. In regard to epigastric pain, CT abdomen and pelvis showed no acute abnormality, seen by Dr. Payton from Gastroenterology he recommended small bowel series that showed cricopharyngeal mild achalasia, esophageal dysmotility, findings suggestive of gastritis and celiac disease,Celiac diagnostic glidin TTG and alpha-1 antitrypsin obtained report pending, recommend outpatient follow-up with Gastroenterology recommend to continue Prilosec and Reglan. CT abdomen showed intermediate to high density structure projecting of the mid to lower pole of right kidney measuring 2.5 cm, therefore renal ultrasound obtained that showed slightly hypo echoic focus projecting of the mid pole of the right kidney measuring 3 cm, therefore Urology consult obtained, CT abdomen with renal mass protocol was done, it showed 3.4 cm right lower pole enhancing renal mass consistent with renal cell carcinoma, informed patient and her healthcare proxy Wiley phone number [phone] as per patient's request and informed him about patient's diagnosis and emphasized on outpatient urology follow-up, also notified patient's urologist Dr. Anny Rangel she recommended outpatient follow-up urology, likely will need cryo ablation by Interventional Radiology In regard to [id number] diabetes mellitus with hyperglycemia, she is recommended to continue Januvia and diabetic diet, her last documented hemoglobin A1c is 5.5 on 10/2023. She is recommended to continue all home medications for hyperlipidemia, hypertension and mood disorder. CT ABDOMEN 04/19/24 FINDINGS: LUNG BASES: Scarring present at the lung bases with some traction bronchiectasis on the right. There are a number of small pulmonary nodules seen at the right lung base the largest measuring 5 mm (6:22). LIVER, GALLBLADDER, AND BILIARY TREE: The liver, gallbladder and bile ducts are unremarkable. PANCREAS: Normal. SPLEEN: Normal. ADRENAL GLANDS: Normal. KIDNEYS: Right: There is a large 3.4 x 2.4 x 2.4 cm right lower pole enhancing renal mass consistent with a renal cell carcinoma. The mass extends to just before the level of the renal sinus. There are 2 additional tiny masses seen in the mid to upper left kidney laterally which measure 0.6 cm and 0.5 cm which may represent either tiny angiomyolipomas or cysts. In either case, these are not worrisome findings. No nephrocalcinosis. No hydronephrosis. The right ureter appears normal. Left: The left kidney and ureter appear normal. BOWEL LOOPS: Dense barium is present throughout the colon. No evidence of bowel obstruction. LYMPH NODES: No retroperitoneal lymphadenopathy. VASCULAR: Calcific atherosclerotic changes are present in the aorta and iliofemoral vessels with significant area of stenosis in the infrarenal aorta as well as in the iliac vessels. I suspect that this patient is a smoker and this represents Leriche syndrome. There is no evidence of an abdominal aortic aneurysm. BONES: Mild degenerative changes are present in the spine. No bony destructive lesions are seen to suggest metastatic disease. CT/CT abdomen wo/w IV con IMPRESSION: 1. A 3.4 cm right lower pole enhancing renal mass consistent with renal cell carcinoma. 2. No evidence of metastatic disease in the abdomen or pelvis. 3. Other incidental findings as described above including severe aortoiliac atherosclerotic changes with stenosis of the infrarenal aorta and iliac vessels. This patient is likely a smoker and this represents Leriche syndrome. 4. Incidentally noted pulmonary nodules, the largest measuring [address] at 3-6 months (per oncology protocol) to confirm persistence. Laboratory Tests 04/20/24 15:19 Tiss Transglutamin IgG <1.0 Tiss Transglutamin IgA <1.0 Anti-Gliadin IgG Ab <1.0 Gliadin (Deamidat) IgA <1.0 UPPER GI STUDY 04/18/24 FINDINGS: Images of the oropharynx and hypopharynx demonstrate normal swallow mechanism with normal epiglottic inversion and soft palate elevation. No tracheal penetration, glottic or subglottic aspiration identified. No nasopharyngeal reflux present. Hypopharyngeal structures appear normal without evidence of mass or diverticulum. There is ballooning of the hypopharynx with mild cricopharyngeal achalasia present. Dual and single contrast images of the esophagus demonstrate normal caliber, contour, and mucosal pattern. No evidence of stricture, mass, or ulcerations identified. There is to and fro motion of the barium column with nonpropulsive tertiary contractions noted throughout the esophagus. No evidence of hiatus hernia identified. No significant gastroesophageal reflux was seen during the course of the examination and on reflux views. Dual contrast and single contrast images of the stomach demonstrated a normal contour. The gastric rugal folds have a very thickened appearance, suggestive of gastritis. No masses or ulcerations are seen. Contrast freely passed into the gastric antrum and duodenal bulb without delay. Single and air-contrast images of the duodenal bulb demonstrate no abnormality. The duodenal sweep has a normal appearance, course, and mucosal fold appearance. The imaged small bowel has a normal caliber. Jejunal folds appear prominent, and there appears to be jejunalization of the ileal fold pattern. No masses, strictures, or dilated loops are present. There is a rapid transit of the barium column with contrast observed in the right colon after 15 minutes. FLUOROSCOPY TIME: 5 minutes 52 seconds Number of Spot Images: 7 Number of Cine: 13 DOSE AREA PRODUCT: 3187 uGy-m2 (microgray-meter squared) FL/FL barium swallow w SBFT IMPRESSION: 1. Ballooning of the hypopharynx of mild cricopharyngeal achalasia present. 2. Esophageal dysmotility. 3. Thickened appearance of the gastric rugal folds, suggestive of gastritis. 4. Rapid transit of the barium column, with contrast observed in the right colon after 15 minutes. Mild fold thickening throughout the jejunum. Also, there appears to be jejunalization of the ileal fold pattern. These findings are typically associated with celiac disease Assessment & Plan Assessment & Plan (1) GERD (gastroesophageal reflux disease): Code(s): K21.9 - Gastro-esophageal reflux disease without esophagitis Category: Medical Qualifiers: Esophagitis presence: without esophagitis Qualified Code(s): K21.9 - Gastro-esophageal reflux disease without esophagitis (2) Epigastric pain: Code(s): R10.13 - Epigastric pain Category: Medical Plan: She is here today with her life partner who is supportive. Maria Elena does not feel well at all. She has presented to the ER twice for abdominal pain and each time she was found to be in respiratory failure. She continues to have pain that seems to be in the gastric area. She has a difficult time telling me how often the pain occurs or how long it lasts and she is uncertain if it happens every day. When she does have it it is around 7/10. She does not think that it is related to eating or moving her bowels but she has not paid attention to it enough to really make any connections. Sintia also has some intellectual limitations making her rather a poor historian. Because of this I would like her to keep a journal of her symptoms to see if we can make some connections. She denies nausea, trouble eating, or difficulty swallowing. At this point, I think her respiratory status is too poor to consider an endoscopy and colonoscopy. To date she has had 2 CT scans, an upper GI with small-bowel follow-through study which have been relatively unrevealing except for some esophageal dysmotility. There was also some suspicion of celiac disease but her tissue transglutaminase labs were negative. She is also currently being worked up by Urology for an unexplained renal mass. It is uncertain whether this could be contributing to her symptoms as well. In time if this is a renal carcinoma this could be contributing to pulmonary edema and exacerbation of her respiratory disease and to some of her abdominal symptoms since the kidneys are located in the upper abdomen. For now we are going to try to manage the symptoms I want to change her from omeprazole 20 mg 2 lansoprazole 30 mg once a day and famotidine at night. She continues on her metoclopramide 10 mg 3 times a day. I am going to decrease the Linzess from 145 micro g of 72 micro g because she seems to be having diarrhea which again she is unable to tell me exactly how often this happens. However it is possible the bowel spasm is contributing to her pain. Return office visit in 4 weeks COLONOSCOPY Probably should be put on hold relative to her respiratory status BIOPSY Maria Elena Lindsey I am making some changes to you medicines to try to control your pain. 1.?? Please keep a written journal of when you pain happens, what you were doing when it started, how long it lasts. 2.?? I am prescribing two new medicines, lansoprazole and famotidine. Take the lansoprazole in the morning and the famotidine at bedtime. 3.?? Stop the omeprazole when you get the lansoprazole. 4.?? For the diarrhea, I am changing the Linzess 145mcg to LInzess 72mcg. 5.?? I want to see you in 4 weeks. Call me if you don?t get any of the new medicines. Medications: New lansoprazole 30 mg PO DAILY 30 caps 6RF K21.9 - Gastro-esophageal reflux disease without esophagitis, R10.13 - Epigastric pain linaclotide (Linzess) 72 mcg PO QAM 30 caps 6RF Discontinued linaclotide (Linzess) Discontinued Reason: Doctor's Order 145 mcg PO QAM 30 caps 6RF Coding Level of Care Code Est Pt Level 4 (86202) Diagnoses Gastroesophageal reflux disease without esophagitis K21.9 Esophagitis presence: without esophagitis Epigastric pain R10.13 Time Spent (min) 40
[2024-05-17 14:48] VITALS: BP 146/65; PULSE 104; BMI 24.3
== END 2024-05-17 15:58 | disposition home or self-care (01) ==
PROVIDERS: PCP Internal Medicine; Visit Provider Nurse Practitioner
DX: K21.9 Gastro-esophageal reflux disease without esophagitis (principal); R10.13 Epigastric pain
CPT/HCPCS: 99214

== ENCOUNTER → 2024-05-17 14:46 | Outpatient (BNVA) | payer OTHER, SELFPAY | PROVIDERS: PCP Internal Medicine; Visit Provider Nurse Practitioner | DX: K21.9 Gastro-esophageal reflux disease without esophagitis (principal); R10.13 Epigastric pain | CPT/HCPCS: 99212 ==

== ENCOUNTER 2024-05-20 15:59 | Inpatient (IN) | payer OTHER, SELFPAY ==
[2024-05-20] VITALS (13 sets, daily range): BP systolic 98–142; BP diastolic 41–57; PULSE 94–105; RESP 20–22; TEMP 36.5–37.2; O2SAT 80–97; BMI 24.7
--- NOTE | ~2024-05-20 | XR_ITS ---
EXAMINATION: XR CHEST CLINICAL INFORMATION: Shortness of breath COMPARISON: 05/05/2024 and selected prior TECHNIQUE: AP portable upright view of the chest was obtained. FINDINGS: Low lung volumes. No focal pneumonia. Stable linear bandlike opacities at the bases likely scarring or atelectasis. Stable heart and mediastinum. No edema. Prior cervical fusion. Nonobstructive gas pattern. XR/XR chest 1V IMPRESSION: Low lung volumes. Electronically signed by: Nestor Roth MD 05/20/2024 06:06 PM EDT
--- NOTE | 2024-05-20 16:22 | ED_ITS ---
HPI - General Adult General Chief complaint: Dyspnea Stated complaint: hard time breathing Time Seen by Provider: 05/20/24 16:35 Source: patient and family Mode of arrival: ambulatory Limitations: no limitations History of Present Illness ED Provider: DR. Zepeda HPI narrative: 64-year-old female PMH of COPD on 2 L of supplemental oxygen, active smoker, GERD, HTN presented with dyspnea at rest that is been for the last 2 3 days without improvement, reported cough with clear sputum, no fever, no chills, patient had multiple hospitalization for COPD exacerbation. Related Data Home Medications ?Medication ?Instructions ?Recorded ?Confirmed aspirin 81 mg tablet,delayed 81 mg PO BEDTIME 01/10/21 05/06/24 release (Adult Low Dose Aspirin) umeclidinium 62.5 mcg/actuation 1 inh inhalation DAILY 03/31/21 05/06/24 blister powder for inhalation albuterol sulfate 2.5 mg/3 mL 2.5 mg inhalation Q6H PRN wheezing 08/02/23 05/06/24 (0.083 %) solution for nebulization fluticasone furoate 200 1 inh inhalation DAILY 08/25/23 05/06/24 mcg/actuation blister powder for inhalation (Arnuity Ellipta) psyllium husk 0.52 gram capsule 1.04 g PO BID Constipation 02/28/24 05/06/24 (Fiber Laxative (psyllium husk)) baclofen 10 mg tablet 10 mg PO TID 05/06/24 05/06/24 metformin 1,000 mg tablet 1,000 mg PO BID 05/06/24 05/06/24 naproxen 500 mg tablet 500 mg PO BID PRN pain 05/06/24 05/06/24 fluticasone furoate 100 1 inh inhalation DAILY 05/17/24 mcg/actuation blister powder for inhalation (Arnuity Ellipta) Previous Rx's ?Medication ?Instructions ?Recorded blood-glucose meter (FreeStyle #1 ea 10/03/21 Lite Meter kit) lancets 28 gauge (FreeStyle #100 ea 01/06/22 Lancets) FreeStyle Lite Strips (blood sugar #100 ea 03/10/22 diagnostic) flash glucose sensor (FreeStyle #6 ea 02/19/23 Cristian 2 Sensor kit) flash glucose scanning reader #1 ea 03/26/23 (FreeStyle Cristian 2 Parachute) losartan 50 mg tablet 50 mg PO DAILY #90 tabs 10/10/23 cholecalciferol (vitamin D3) 50 50 mcg PO DAILY #90 caps 11/22/23 mcg (2,000 unit) capsule sitagliptin phosphate 100 mg 100 mg PO DAILY #90 tabs 11/22/23 tablet (Januvia) rosuvastatin 5 mg tablet 5 mg PO DAILY #90 tabs 12/01/23 simethicone 180 mg capsule 180 mg PO QID #120 caps 01/13/24 gabapentin 800 mg tablet 800 mg PO TID 30 days #90 tabs 01/26/24 amlodipine 5 mg tablet 5 mg PO DAILY #90 tabs 03/20/24 nicotine 14 mg/24 hr daily 14 mg transdermal DAILY #30 ea 05/08/24 transdermal patch prednisone 10 mg tablet See Taper PO DIRECTED #30 tabs 05/08/24 metoclopramide HCl 10 mg tablet 10 mg PO TID #90 tabs 05/11/24 linaclotide 72 mcg capsule 72 mcg PO QAM #30 caps 05/17/24 (Linzess) lansoprazole 30 mg capsule,delayed 30 mg PO DAILY #90 caps 05/18/24 release Allergies Allergy/AdvReac Type Severity Reaction Status Date / Time amoxicillin [AMOXICILLIN] Allergy Intermediate RASH Verified 05/20/24 16:25 Review of Systems 2 Review of Systems: All other systems are reviewed and are negative Constitutional: Reports as per HPI and Reports no additional constitutional complaints Eyes: Reports as per HPI and Reports no additional eye complaints Reports system reviewed and no additional complaints, except as documented Cardiovascular: Reports as per HPI and Reports no additional cardiovascular complaints Respiratory: Reports as per HPI and Reports no additional respiratory complaints Gastrointestinal: Reports as per HPI and Reports no additional gastrointestinal complaints Genitourinary: Reports no additional female genitourinary complaints Musculoskeletal: Reports no additional musculoskeletal complaints Skin/Breast: Reports system reviewed and no additional complaints, except as docu Psychiatric: Reports no additional psychiatric complaints Endocrine: Reports no additional endocrine complaints Hematologic/Lymphatic: Reports no additional hematologic/lymphatic complaints Allergic/Immunologic: Reports no additional allergic/immunologic complaints Reports system reviewed and no additional complaints, except as documented and Reports Abnormal speech present PMFSH Past Medical History Medical History Diabetic gastroparesis Chronic lung disease COPD (chronic obstructive pulmonary disease) Type 2 diabetes mellitus without complication, with no history of insulin use Mixed dyslipidemia Essential hypertension GERD (gastroesophageal reflux disease) Gastroparesis Diastolic CHF with preserved left ventricular function, NYHA class 2 Chronic hypercapnic respiratory failure Type 2 diabetes mellitus with other diabetic kidney complication Type 2 diabetes mellitus without complication, with no history of insulin use Smoker unmotivated to quit Postlaminectomy syndrome of cervical region Seasonal allergic rhinitis Degenerative disc disease, cervical Postmenopause Dyslipidemia Surgical History H/O cervical discectomy History of esophagogastroduodenoscopy (EGD) Hx of colonoscopy Family History Family History Mother Diabetes Sister Diabetes Mental health disorder Brother Diabetes Father HTN (hypertension) Social History Social History Household Members: Other Housing: Other Housing Other:: mobile home Do you presently have visiting nurse or other home services: No Alcohol intake: former Comment: Commode/ Hi Flow O2 Patient Tobacco Use Status: Current everyday Tobacco user Tobacco use type: Cigarette Cigarette Packs Per Day: 1 Cigarettes Per Day: 20.0 Years Smoked: 50 e-Cigarette/Vaping Use: Never Used Second Hand Smoke Exposure: Yes Advance Directives: Yes Advance Directives on File: Yes Advance Directives Date on File: 08/02/23 service: No Current occupational status: unemployed Cognitive needs: No Hearing needs: No Vision needs: Yes Physical Exam ED Vital Signs: Vital Signs - 24 hr 05/20/24 16:17 05/20/24 16:22 05/20/24 17:01 Temperature 98.9 F Pulse Rate 105 H 105 H Respiratory Rate 22 H 22 H Blood Pressure 124/47 L Pulse Oximetry 80 L 90 L Oxygen Delivery Method Room Air Nasal Cannula Oxygen Flow Rate 2 05/20/24 17:57 05/20/24 18:05 05/20/24 18:25 Temperature 97.9 F Pulse Rate 96 Respiratory Rate 20 21 H Blood Pressure 98/41 L 106/45 L 102/43 L Pulse Oximetry 95 95 96 Oxygen Delivery Method Nasal Cannula Nasal Cannula Nasal Cannula Oxygen Flow Rate 3 3 3 05/20/24 18:45 05/20/24 19:06 05/20/24 19:13 Temperature 97.7 F Pulse Rate 94 103 H 104 H Respiratory Rate 22 H Blood Pressure 116/44 L 119/57 L 109/56 L Pulse Oximetry 97 92 Oxygen Delivery Method Nasal Cannula Oxygen Flow Rate BMI result Body Mass Index 24.7 Vital signs have been reviewed and appear to be correct. Blood pressure elevated. Heart rate normal. Respiratory rate normal. Temperature normal. Oxygen saturation normal. Appearance: Alert. Oriented X3. In mild acute respiratory distress. Head: Normal external exam. Normocephalic. Atraumatic. No Liang signs noted. No raccoon eyes noted Eyes: PERRLA. EOMI. Conjunctiva and sclera normal. Eyelids normal. ENT: TM's Normal. Pharynx normal. Uvula midline. Moist mucous membranes. No trismus noted. No drooling noted. No muffled voice noted. Neck: Normal inspection. Neck supple. FROM. No adenopathy. Thyroid Normal. No meningeal signs. No neck mass noted. CVS: Normal heart rate and rhythm. Heart sound normal. No murmurs noted. Pulses normal throughout. Respiratory: in respiratory distress. Painless inspiration. Breath sounds normal. diffuse expiratory wheezing with prolonged expiration,Chest nontender. No accessory muscle usage noted or decreased air movement noted. Abdomen: Soft and nontender. Bowel sounds normal in all 4 quadrants. No distention noted. No organomegaly noted. No visible injury noted. Back: No CVA tenderness. Full range of motion noted. Skin: Skin warm and dry. Normal skin color. Normal skin turgor. No rashes/lesions/lacerations noted. Extremities: No lower extremity edema. Extremities exhibit normal range of motion. Extremities nontender. Neuro: Oriented X 3. Cranial nerve exam: II-XII are grossly intact No motor deficit. No sensory deficit. Reflexes normal. Course Course Course Narrative: RME performed by Silvina Dave PA-C. Patient is a 64 year old assigned female at presenting to the emergency department with SOB. Patient states she has been having much more shortness of breath lately. Detailed physical exam and review of systems are deferred to the drilling field professional. EKG, labs, imaging, and swabs ordered. ct scan special procedures technologist aware. Reevaluation(s) Reevaluation #1: 64-year-old female with history COPD patient meets criteria for septic shock with elevated lactic acid, patient remain to be normotensive, required 30 cc/kg normal saline, antibiotic, Solu-Medrol. Patient also received magnesium for hypomagnesemia. Time: 18:21 Reevaluation #2: FOCUSED EXAM: LACTIC ACIDOSIS IS ALSO RELATED TO ALBUTEROL USE. PATIENT OVERALL FEELS BETTER, RECEIVED FLUIDS AND ANTIBIOTIC. Time: 19:45 Medications Administered Discontinued Medications Generic Name Dose Route Start Last Admin Trade Name Freq PRN Reason Stop Dose Admin Albuterol Sulfate 5 mg/ 0 mg 05/20/24 16:57 05/20/24 17:01 Albuterol/Ipratropium 3 ml INHALE 05/20/24 16:58 1 each ONCE ONE Administration Magnesium Sulfate 2 gm in 50 mls @ 25 mls/hr 05/20/24 16:48 05/20/24 19:10 Magnesium Sulfate/H2o IV 05/20/24 18:47 Infused ONCE ONE Infusion Levofloxacin 750 mg in 150 mls @ 100 mls/hr 05/20/24 16:49 05/20/24 18:49 Levaquin IV 05/20/24 18:18 Infused ONCE ONE Infusion Sodium Chloride 1,000 mls @ 999 mls/hr 05/20/24 17:42 05/20/24 18:46 Ns IV 05/20/24 18:42 Infused .Q1H1M ONE Infusion Magnesium Sulfate 2 gm in 50 mls @ 25 mls/hr 05/20/24 17:42 05/20/24 18:02 Magnesium Sulfate/H2o IV 05/20/24 19:41 Not Given ONCE ONE Sodium Chloride 1,551.3 mls @ 1,551.3 mls/hr 05/20/24 17:49 05/20/24 19:01 Ns 30 ml/kg infuse over 1 hr (1551.3 ml) 05/20/24 18:48 Infused IV Infusion .Q1H STA Methylprednisolone Sodium Succinate 125 mg 05/20/24 16:48 05/20/24 17:13 Methylprednisolone Sod Succ 125 Mg/2 Ml Vial IVPUSH 05/20/24 16:49 125 mg ONCE ONE Administration Nicotine 21 mg 05/20/24 17:35 05/20/24 17:42 Nicotine 21 Mg Patch.Td24 TRANSDERMA 05/20/24 17:36 21 mg ONCE ONE Administration Medical Decision Making Differential Diagnosis Differential Diagnoses: The differential diagnosis associated with the presentation includes ( COPD, pneumonia, pneumothorax, pleural effusion, severe sepsis, septic shock, electrolyte derangement, severe anemia.) Admission/Observation Consideration of admission/observation: Escalation of care including admission/observation considered Consult Healthcare Provider Management of the patient was discussed with: Hospitalist ( Dr. Erickson) Lab Data MDM Lab Attestation statement: I reviewed the patient's lab results. 05/20/24 16:38 05/20/24 16:38 Labs: Lab Results 05/20/24 05/20/24 05/20/24 Range/Units 16:38 16:40 16:45 WBC 19.5 H (4.8-10.8) X10*3/uL RBC 4.84 (4.20-5.50) X10*6/uL Hgb 12.1 (12.0-16.0) g/dl Hct 40.7 (37.0-47.0) % MCV 84.1 (80.0-98.0) fL MCH 25.0 L (27.0-33.0) pg MCHC 29.7 L (31.0-35.0) g/dl RDW 18.0 H (11.0-16.0) % Plt Count 307 (160-400) X10*3/uL MPV 9.4 (9.4-12.3) fL Immature Gran % (Auto) 0.5 H (0.0-0.4) % Neut % (Auto) 88.8 H (45-73) % Lymph % (Auto) 7.1 L (20-40) % Reagan % (Auto) 2.8 (2-11) % Eos % (Auto) 0.4 (0-4) % Baso % (Auto) 0.4 (0-2) % Lymph # (Auto) 1.4 (1.2-4.9) X10*3/uL Reagan # (Auto) 0.5 (0.1-1.2) X10*3/uL Eos # (Auto) 0.1 (0.0-0.4) X10*3/uL Baso # (Auto) 0.1 (0.0-0.2) X10*3/uL Abs Immat Gran (auto) 0.10 H (0.00-0.03) X10*3/uL Absolute Neuts (auto) 17.3 H (2.0-8.3) x10*3/uL Absolute Nucleated RBC 0.000 (0.0-0.012) X10*3/uL Nucleated RBC % (auto) 0.0 (0.0-0.2) /100WBC VBG pH 7.41 (7.32-7.43) VBG pCO2 59 mmHg VBG pO2 109 mmHg VBG HCO3 38 H (22-26) mmol/L VBG O2 Saturation 99.0 % VBG Base Excess 11.8 mmol/L Sodium 146 H (135-145) mmol/L Potassium 3.4 D (3.3-5.1) mmol/L Chloride 98 (96-108) mmol/L Carbon Dioxide 31 H (22-29) mmol/L Anion Gap 20 (12-20) BUN 8 L (9-16) mg/dL Creatinine 0.58 (0.5-1.4) mg/dL Estim Creat Clear Calc 68.7 Estimated GFR > 60 Random Glucose 181 H (60-115) mg/dL Lactic Acid (0.5-2.0) mmol/L Lactic Acid F/U @ 2Hr (0.5-2.0) mmol/L Calcium 10.1 (8.4-10.2) mg/dL Magnesium 1.3 L* (1.6-2.6) mg/dL Total Bilirubin 0.4 (0.0-1.0) mg/dL AST 14 (5-31) U/L ALT 12 (0-31) U/L Alkaline Phosphatase 58 (39-117) U/L Troponin I High Sens 6.7 (<3.5-17.0) ng/L Total Protein 7.1 (6.5-8.0) g/dL Albumin 4.4 (3.5-5.0) g/dL Influenza Type A (PCR) NEGATIVE (Negative) Influenza Type B (PCR) NEGATIVE (Negative) RSV RNA Qual (PCR) NEGATIVE (Negative) SARS-CoV-2 RNA (RT-PCR) NEGATIVE (Negative) 05/20/24 05/20/24 Range/Units 17:04 19:23 WBC (4.8-10.8) X10*3/uL RBC (4.20-5.50) X10*6/uL Hgb (12.0-16.0) g/dl Hct (37.0-47.0) % MCV (80.0-98.0) fL MCH (27.0-33.0) pg MCHC (31.0-35.0) g/dl RDW (11.0-16.0) % Plt Count (160-400) X10*3/uL MPV (9.4-12.3) fL Immature Gran % (Auto) (0.0-0.4) % Neut % (Auto) (45-73) % Lymph % (Auto) (20-40) % Reagan % (Auto) (2-11) % Eos % (Auto) (0-4) % Baso % (Auto) (0-2) % Lymph # (Auto) (1.2-4.9) X10*3/uL Reagan # (Auto) (0.1-1.2) X10*3/uL Eos # (Auto) (0.0-0.4) X10*3/uL Baso # (Auto) (0.0-0.2) X10*3/uL Abs Immat Gran (auto) (0.00-0.03) X10*3/uL Absolute Neuts (auto) (2.0-8.3) x10*3/uL Absolute Nucleated RBC (0.0-0.012) X10*3/uL Nucleated RBC % (auto) (0.0-0.2) /100WBC VBG pH (7.32-7.43) VBG pCO2 mmHg VBG pO2 mmHg VBG HCO3 (22-26) mmol/L VBG O2 Saturation % VBG Base Excess mmol/L Sodium (135-145) mmol/L Potassium (3.3-5.1) mmol/L Chloride (96-108) mmol/L Carbon Dioxide (22-29) mmol/L Anion Gap (12-20) BUN (9-16) mg/dL Creatinine (0.5-1.4) mg/dL Estim Creat Clear Calc Estimated GFR Random Glucose (60-115) mg/dL Lactic Acid 4.7 H* (0.5-2.0) mmol/L Lactic Acid F/U @ 2Hr 5.2 H* (0.5-2.0) mmol/L Calcium (8.4-10.2) mg/dL Magnesium (1.6-2.6) mg/dL Total Bilirubin (0.0-1.0) mg/dL AST (5-31) U/L ALT (0-31) U/L Alkaline Phosphatase (39-117) U/L Troponin I High Sens (<3.5-17.0) ng/L Total Protein (6.5-8.0) g/dL Albumin (3.5-5.0) g/dL Influenza Type A (PCR) (Negative) Influenza Type B (PCR) (Negative) RSV RNA Qual (PCR) (Negative) SARS-CoV-2 RNA (RT-PCR) (Negative) Independent Interpretation I performed an independent interpretation of an: Plain X-Ray ( chest: Low lung volume) Radiology Impression Discussion of test interpretation with radiology: I have reviewed the radiologist's reading. Chronic Conditions Patient?s care impacted by: Other ( active smoker /COPD) Discharge Plan Discharge Clinical Impression: COPD (chronic obstructive pulmonary disease), Septic shock Patient Disposition: Admitted As Inpatient Print Language: Uruguayan
--- NOTE | 2024-05-20 16:23 | ECG_ITS ---
Test Reason : SOB Blood Pressure : / mmHG Vent. Rate : 101 BPM Atrial Rate : 101 BPM P-R Int : 116 ms QRS Dur : 080 ms QT Int : 358 ms P-R-T Axes : 053 073 071 degrees QTc Int : 464 ms Sinus tachycardia with Premature supraventricular complexes Nonspecific T wave abnormality Abnormal ECG When compared with ECG of 05-MAY-2024 15:49, Premature supraventricular complexes are now Present Nonspecific T wave abnormality, worse in Lateral leads Referred By: Silvina Dave Electronically Signed By:JAMES YI
[2024-05-20 16:44] LABS: MANUAL DIFF FLAG NO
[2024-05-20 16:45] LABS: Basophils Absolute Auto 0.1 X10*3/uL (0.0-0.2); Basophils Percent Auto 0.4 % (0-2); Eosinophils Absolute Auto 0.1 X10*3/uL (0.0-0.4); Eosinophils Percent Auto 0.4 % (0-4); Hematocrit 40.7 % (37.0-47.0); Hemoglobin 12.1 g/dl (12.0-16.0); Imm Gran Pct Auto 0.5 % (0.0-0.4); Lymphocytes Absolute Auto 1.4 X10*3/uL (1.2-4.9); Lymphocytes Percent Auto 7.1 % (20-40); Mean Corpuscular HGB Conc 29.7 g/dl (31.0-35.0); Mean Corpuscular Volume 84.1 fL (80.0-98.0); Mean Platelet Volume 9.4 fL (9.4-12.3); Monocytes Absolute Auto 0.5 X10*3/uL (0.1-1.2); Monocytes Percent Auto 2.8 % (2-11); Neutrophils Absolute Auto 17.3 x10*3/uL (2.0-8.3); Neutrophils Percent Auto 88.8 % (45-73); Platelet Count 307 X10*3/uL (160-400); Red Blood Count 4.84 X10*6/uL (4.20-5.50); White Blood Count 19.5 X10*3/uL (4.8-10.8)
[2024-05-20 16:47] LABS: Venous Blood Gas Refer to POC result
[2024-05-20 16:48] LABS: VBG Base Excess 11.8 mmol/L; VBG HCO3 38 mmol/L (22-26); VBG pCO2 59 mmHg; VBG pH 7.41 (7.32-7.43); VBG pO2 109 mmHg
[2024-05-20] MEDS: Albuterol Sulfate 5 MG, Albuterol/Iprat 2.5/0.5MG 3 ML 3 ML INHALE ×2 (17:01→19:56)
[2024-05-20 17:04] LABS: Alanine Aminotransferase 12 U/L (0-31); Albumin Level 4.4 g/dL (3.5-5.0); Alkaline Phosphatase 58 U/L (39-117); Anion Gap 20 (12-20); Aspartate Amino Transferase 14 U/L (5-31); Bilirubin Total 0.4 mg/dL (0.0-1.0); Blood Urea Nitrogen 8 mg/dL (9-16); Calcium 10.1 mg/dL (8.4-10.2); Carbon Dioxide 31 mmol/L (22-29); Chloride 98 mmol/L (96-108); Creatinine Clr Calc Pharmacy 68.7; Estimated Glomerular Filt Rate > 60; Glucose Random 181 mg/dL (60-115); Magnesium 1.3 mg/dL (1.6-2.6); Potassium 3.4 mmol/L (3.3-5.1); Sodium 146 mmol/L (135-145); Total Protein 7.1 g/dL (6.5-8.0)
[2024-05-20 17:06] LABS: Troponin-I High Sensitivity 6.7 ng/L (<3.5-17.0)
[2024-05-20] MEDS: Magnesium Sulfate/H2O 2 GM/50 ML PIGGYBACK IV (17:08)
[2024-05-20] MEDS: methylPREDNISolone Sod Succ 125 MG/2 ML VIAL IVPUSH (17:13)
[2024-05-20] MEDS: levoFLOXacin/D5W 750 MG/150 ML PIGGYBACK 100 MG IV (17:19)
[2024-05-20 17:34] LABS: Lactic Acid 4.7 mmol/L (0.5-2.0)
[2024-05-20] MEDS: Nicotine 21 MG PATCH.TD24 TRANSDERMA (17:42)
[2024-05-20 17:44] LABS: Influenza A PCR NEGATIVE (Negative); Influenza B PCR NEGATIVE (Negative); Resp Syncy Virus RNA Qual PCR NEGATIVE (Negative); SARS COV2 PCR INHOUSE NEGATIVE (Negative)
[2024-05-20] MEDS: 0.9 % Sodium Chloride 1,000 ML 999 ML IV (17:45)
[2024-05-20] MEDS: 0.9 % Sodium Chloride 1,551.3 ML 1551.3 ML IV (18:01)
[2024-05-20 19:10] LABS: Reflex Lactate? Lactic Acid Added
--- NOTE | 2024-05-20 19:10 | PC.NURSE ---
pt brought back into exam room, IV access established, labs obtained- fluids started on initial order of 1l, critical lactic rec of 4.2-- per MD todd add additional 551.3ml to current infusion to make total sepsis bolus volume of 1551.3mls (30ml/kg)
--- NOTE | 2024-05-20 19:27 | MHC.EDTECH ---
This tech took over care of patient at 1900,rounds,vitals,and belongings list completed,copy placed in chart,patient ate 100% of dinner and drank 120MLS. Repeat lactic drawn and sent to lab. call burger in reach
--- NOTE | 2024-05-20 19:42 | PC.NURSE ---
this nurse was notified by technical program manager that SpO2 dipping into 87% on 3 via NC- Respiratory called to bedside
--- NOTE | 2024-05-20 19:44 | PC.NURSE ---
critical lactic of 5.2 MD Zepeda aware
[2024-05-20 19:45] LABS: ~Lactic Acid-LAB USE ONLY 5.2 mmol/L (0.5-2.0)
--- NOTE | 2024-05-20 19:45 | MHC.EDTECH ---
Patient got up to the commode with a 1 assist with a steady gait,pt urinated 200MLS of yellow urine,patient was cleaned debbie-care given and urine sample collected and sen to lab.
[2024-05-20 20:03] LABS: Appearance Urine Clear; Color Urine Yellow; Glucose Urine UA Negative (Negative); Leukocyte Esterase Urine Negative (Negative); Nitrite Urine Negative (Negative); PH 5.5 (5.0-9.0); Specific Gravity - Urine 1.015 (1.005-1.025); Urine Blood Negative (Negative); Urine Ketones Negative (Negative); Urine Protein Trace mg/dL (Neg-Trace)
[2024-05-20] MEDS: 0.9 % Sodium Chloride 500 ML IV (20:07)
--- NOTE | 2024-05-20 20:08 | P.HPHOSP_ITS ---
History of Present Illness Date of Service: 05/20/24 Attending physician on admission: King Fiore Chief Complaint: Shortness on breath Maria Elena Kingston is a 64 years old past medical history significant for COPD -on home O2 2L/min, type 2 mellitus on metformin, essential hypertension and hyperlipidemia presents to the emergency department complaining of one-week history worsening shortness on breath associated with productive cough of yellowish sputum, wheezing and chest tightness. She denied any headache, palpitations, dizziness, fevers chills. She denied any acute gastrointestinal genitourinary symptoms. Unfortunately, she was on is an ongoing tobacco smoker and smoked pack per day. She denied illicit drug use or alcohol abuse. Patient mentioned that she recently completed a course of prednisone. In the ED, she was found to have mild tachycardia, tachypnea a low oxygen saturation of 80% on room air (expected as she uses O2 at home). She is currently requiring 3 liters/minutes supplemental oxygen via nasal cannula. Her last blood pressure is 130/42. Blood workup was remarkable for leukocytosis of 19.5. Hemoglobin is around baseline. Platelets are normal. There is lactic acidosis of 4.7 --> 5.2. Magnesium is 1.3. There are no other significant electrolyte imbalances except for minimal hypernatremia 146. CO2 is 31. Troponin is normal. LFTs are normal. Urinalysis is normal. Viral testing for COVID-19, influenza and RSV is negative. CXR showed low lung volume. ECG showed sinus tachycardia 101 bpm with nonspecific T-wave abnormalities in the lateral leads. ED tx: Solu-Medrol 125 mg IV, magnesium 2 g, Levaquin 750 mg IV, multiple doses of DuoNeb, nicotine transdermal, NS bolus 1551.3 mL Review of Systems 2 Review of Systems: All 12 systems were reviewed and normal except as noted in HPI. [facility] Medical History (Updated 05/20/24 @ 21:25 by King Fiore MD) Acute on chronic hypoxic respiratory failure Diabetic gastroparesis Chronic lung disease COPD (chronic obstructive pulmonary disease) Type 2 diabetes mellitus without complication, with no history of insulin use Mixed dyslipidemia Essential hypertension GERD (gastroesophageal reflux disease) Gastroparesis Diastolic CHF with preserved left ventricular function, NYHA class 2 Chronic hypercapnic respiratory failure Type 2 diabetes mellitus with other diabetic kidney complication Type 2 diabetes mellitus without complication, with no history of insulin use Smoker unmotivated to quit Postlaminectomy syndrome of cervical region Seasonal allergic rhinitis Degenerative disc disease, cervical Postmenopause Dyslipidemia Family History Mother Diabetes Sister Diabetes Mental health disorder Brother Diabetes Father HTN (hypertension) Surgical History H/O cervical discectomy History of esophagogastroduodenoscopy (EGD) Hx of colonoscopy Social History Household Members: Other Housing: Other Housing Other:: mobile home Do you presently have visiting nurse or other home services: No Alcohol intake: former Comment: Commode/ Hi Flow O2 Patient Tobacco Use Status: Current everyday Tobacco user Tobacco use type: Cigarette Cigarette Packs Per Day: 1 Cigarettes Per Day: 20.0 Years Smoked: 50 Smoked in Last 30 Days: Yes e-Cigarette/Vaping Use: Never Used Second Hand Smoke Exposure: Yes Advance Directives: Yes Advance Directives on File: Yes Advance Directives Date on File: 08/02/23 Do you have a plan to hurt others: No Plan Patient : No service: No Current occupational status: unemployed Cognitive needs: No Hearing needs: No Vision needs: Yes Meds Allergies Allergy/AdvReac Type Severity Reaction Status Date / Time amoxicillin [AMOXICILLIN] Allergy Intermediate RASH Verified 05/20/24 16:25 Active Medications: Current Medications Acetaminophen (Acetaminophen 325 Mg Tablet) 975 mg PO Q6H PRN PRN Reason: Pain, Mild (Pain Scale 1-3), fever or headache Albuterol Sulfate (Albuterol Sulfate (0.083%) 2.5 Mg/3 Ml Vial.Neb) 2.5 mg INHALE Q2H PRN PRN Reason: Shortness of Breath/Wheezing Albuterol/Ipratropium (Albuterol/Iprat 2.5/0.5mg 3 Ml Ampul.Neb) 3 ml INHALE RQ4H WHILE AWAKE MOUSTAPHA Enoxaparin Sodium (Enoxaparin Sodium 40 Mg/0.4 Ml Syringe) 40 mg SUBCUT Q24H [place] Glucose (Glucose Gel 15 Gm Gel..Gram.) 15 gm PO Q15M PRN; Protocol PRN Reason: per Hypoglycemia Standing Ord. Dextrose (D10) 250 mls @ 750 mls/hr IV Q15M PRN; Protocol PRN Reason: per Hypoglycemia Standing Ord. Doxycycline Hyclate 100 mg/ (Sodium Chloride) 250 mls @ 166.67 mls/hr IV BID [place]OU[place] Sodium Chloride (Ns) 500 mls @ 500 mls/hr IV .Q1H [facility] Stop: 05/20/24 21:59 Last Admin: 05/20/24 20:07 Dose: 500 mls/hr Insulin Human Lispro (Insulin Lispro 100 Unit/Ml 3 Ml Vial) 0 unit SUBCUT QIDACHS [facility]; Protocol Magnesium Hydroxide (Milk Of Magnesia 30 Ml Oral.Susp) 30 ml PO DAILY PRN PRN Reason: Constipation Methylprednisolone Sodium Succinate (Methylprednisolone Sod Succ 40 Mg/Ml Vial) 40 mg IVPUSH BID [facility] Sodium Chloride (0.9 % Sodium Chloride Flush 3 Ml Syringe) 3 ml IVFLUSH QSHIFT [facility] Home Medications ?Medication ?Instructions ?Recorded ?Confirmed ?Last Taken ?Type aspirin 81 mg tablet,delayed 81 mg PO BEDTIME 01/10/21 05/06/24 05/05/24 History release (Adult Low Dose Aspirin) umeclidinium 62.5 mcg/actuation 1 inh inhalation DAILY 03/31/21 05/06/24 05/05/24 History blister powder for inhalation albuterol sulfate 2.5 mg/3 mL 2.5 mg inhalation Q6H PRN wheezing 08/02/23 05/06/24 Unknown History (0.083 %) solution for nebulization fluticasone furoate 200 1 inh inhalation DAILY 08/25/23 05/06/24 05/05/24 History mcg/actuation blister powder for inhalation (Arnuity Ellipta) psyllium husk 0.52 gram capsule 1.04 g PO BID Constipation 02/28/24 05/06/24 05/05/24 History (Fiber Laxative (psyllium husk)) baclofen 10 mg tablet 10 mg PO TID 05/06/24 05/06/24 05/05/24 History metformin 1,000 mg tablet 1,000 mg PO BID 05/06/24 05/06/24 05/05/24 History naproxen 500 mg tablet 500 mg PO BID PRN pain 09/21/24 09/21/24 Unknown History fluticasone furoate 100 1 inh inhalation DAILY 05/17/24 Unknown History mcg/actuation blister powder for inhalation (Arnuity Ellipta) Physical Exam 2 Vital Signs and Narrative: Vital Signs: Last Vital Signs Temp 97.7 F 05/20/24 19:13 Pulse 102 H 05/20/24 19:56 Resp 20 05/20/24 19:56 BP 109/56 L 05/20/24 19:13 Pulse Ox 92 05/20/24 19:13 O2 Del Method Nasal Cannula 05/20/24 19:13 O2 Flow Rate 3 05/20/24 18:25 BMI result Body Mass Index 24.7 Constitutional - Awake and Alert, No apparent distress. On nasal cannula. HEENT - PERRL, EOMI Heart - Tachycardia, normal rate. Lungs - Normal lung expansion, Normal respiratory effort, No respiratory distress. Bilateral expiratory wheezes. No crackles. No rhonchi. Abdomen - NT / ND; +BS; No rebound or guarding Extremities - no calf tenderness bilaterally, no swelling Musculoskeletal - Normal inspection, normal ROM Skin - Warm/Dry Neurological - Alert & oriented x3. No focal weakness grossly noted. Normal speech. Psychological - Appropriate affect Results Labs 05/20/24 16:38 05/20/24 16:38 Labs: Laboratory Results - last 24 hr 05/20/24 05/20/24 05/20/24 16:38 16:40 16:45 MCV 84.1 MCH 25.0 L MCHC 29.7 L RDW 18.0 H Plt Count 307 MPV 9.4 Immature Gran % (Auto) 0.5 H Neut % (Auto) 88.8 H Lymph % (Auto) 7.1 L [place] % (Auto) 2.8 Eos % (Auto) 0.4 Baso % (Auto) 0.4 Lymph # (Auto) 1.4 [place] # (Auto) 0.5 Eos # (Auto) 0.1 Baso # (Auto) 0.1 Abs Immat Gran (auto) 0.10 H Absolute Neuts (auto) 17.3 H Absolute Nucleated RBC 0.000 Nucleated RBC % (auto) 0.0 VBG pH 7.41 VBG pCO2 59 VBG pO2 109 VBG HCO3 38 H VBG O2 Saturation 99.0 VBG Base Excess 11.8 Anion Gap 20 Estim Creat Clear Calc 68.7 Estimated GFR > 60 Random Glucose 181 H Lactic Acid Lactic Acid F/U @ 2Hr Calcium 10.1 Magnesium 1.3 L* Total Bilirubin 0.4 AST 14 ALT 12 Alkaline Phosphatase 58 Troponin I High Sens 6.7 Total Protein 7.1 Albumin 4.4 Urine Color Urine Appearance Urine pH Ur Specific [place] Urine Protein Urine Glucose (UA) Urine Ketones Urine Blood Urine Nitrite Ur Leukocyte Esterase Influenza Type A (PCR) NEGATIVE Influenza Type B (PCR) NEGATIVE RSV RNA Qual (PCR) NEGATIVE SARS-CoV-2 RNA (RT-PCR) NEGATIVE 05/20/24 05/20/24 05/20/24 17:04 19:23 19:48 MCV MCH MCHC RDW Plt Count MPV Immature Gran % (Auto) Neut % (Auto) Lymph % (Auto) [place] % (Auto) Eos % (Auto) Baso % (Auto) Lymph # (Auto) [place] # (Auto) Eos # (Auto) Baso # (Auto) Abs Immat Gran (auto) Absolute Neuts (auto) Absolute Nucleated RBC Nucleated RBC % (auto) VBG pH VBG pCO2 VBG pO2 VBG HCO3 VBG O2 Saturation VBG Base Excess Anion Gap Estim Creat Clear Calc Estimated GFR Random Glucose Lactic Acid 4.7 H* Lactic Acid F/U @ 2Hr 5.2 H* Calcium Magnesium Total Bilirubin AST ALT Alkaline Phosphatase Troponin I High Sens Total Protein Albumin Urine Color Yellow Urine Appearance Clear Urine pH 5.5 Ur Specific [place] 1.015 Urine Protein Trace Urine Glucose (UA) Negative Urine Ketones Negative Urine Blood Negative Urine Nitrite Negative Ur Leukocyte Esterase Negative Influenza Type A (PCR) Influenza Type B (PCR) RSV RNA Qual (PCR) SARS-CoV-2 RNA (RT-PCR) Imaging Radiologist's Impressions: Impressions Chest X-Ray 05/20/24 16:23 IMPRESSION: Low lung volumes. Electronically signed by: Nestor Roth MD 05/20/2024 06:06 PM EDT Assessment and Plan (1) Acute on chronic hypoxic respiratory failure: Status: Acute (2) Essential hypertension: Status: Acute (3) Mixed dyslipidemia: Status: Acute Plan Maria Elena Kingston is a 64 y/o woman admitted with: * Acute on chronic hypoxic respiratory failure secondary to acute exacerbation of COPD. Admit to hospitalist service. Telemetry. Supplemental O2 to keep O2 sats > 90%. Continue bronchodilator therapy, IV steroids IV antibiotics. * Severe sepsis criteria, however, I do feel her lactic acidosis is secondary to multiple DuoNeb treatments and metformin use and not too severe sepsis. Continue IV fluids. Continue to monitor lactic acid. Hold metformin. * Type 2 diabetes mellitus. BG checks before meals at bedtime. Hold metformin. Insulin sliding scale. Continue gentle Diabetic diet. * Essential hypertension. Continue amlodipine and losartan. * Hyperlipidemia. Continue statin. * Tobacco dependence. Tobacco cessation education. DVT prophylaxis: Lovenox Code status: Full Patient will need hospitalization for last midnights for acute on chronic hypoxic respiratory failure secondary to acute exacerbation of COPD treatment with supplemental oxygen, bronchodilator therapy, IV antibiotics and steroids. Quality Stroke Does the patient have a stroke diagnosis?: No VTE Prior VTE?: No VTE Risk Level:: Medical - moderate - high VTE Device Contraindication: Treatment Not Indicated VTE Drug Contraindication: N/A - Med Ordered
[2024-05-20 20:10] LABS: Cancel Lactic Acid Canceled
[2024-05-20 20:10] LABS: Reflex Lactate? 2 N
[2024-05-20 21:10] LABS: Glucose, Whole Blood 296 mg/dL (60-115)
--- NOTE | 2024-05-20 21:10 | MHC.EDTECH ---
Assisted patient to the commode,patient urinated,debbie care given. POC taken and is 296,Adryan RN made aware,vitals taken,call burger in reach
[2024-05-20] MEDS: Insulin Lispro 100 UNIT/ML 3 ML VIAL SUBCUT (21:38)
--- NOTE | 2024-05-20 22:09 | PC.NURSE ---
Summary of care: 64 y.o. female presents to dept with SOB x1 week, worsening today. pt was on a prednisone taper (last dose today), pt believes that her breathing is worse today. Pt uses 2L O2 via NC at baseline, and was found to be 80% on RA in triage. Pt is A&O x4, able to ambulate to bedside commode with assist x1. Pt was brought back to exam room- Labs were obtained and IV access was established (20g R-AC) . Pt is A&O x 4 independent with ADL's at baseline. PMHx sig for COPD (hospitalized for the same in the past, [place]. disc disease, sepsis, renal mass, HTN and GERD. pt has no complaints of pain at this time. Labs were significant for initial lactic of 4.7, @ 2hr follow up at 5.2, WBC 19.5, and HCO3 35. Serology negative. Pt has a smoking history, 21mg nicotine patch in place on left upper outer arm. In dept Pt rec 2gm of Mg, 125mg Medrrol, Levaquin 750, 1551.3mls of NS per sepsis protocol. In addition pt rec 3 duoneb updrafts. XR significant for: Low lung volumes, (-) PNA, Stable linear bandlike opacities at the bases likely scarring or atelectasis. Pt was evaluated by hospitalist service and will be admitted to telemtry unit for acute on chronic hypoxic respiratory failure secondary to acute exacerbation of COPD treatment with supplemental oxygen, bronchodilator therapy, IV antibiotics and steroids. At this time pt SpO2 93% on 3L via NC.
[2024-05-21] VITALS (8 sets, daily range): BP systolic 125–178; BP diastolic 47–77; PULSE 64–100; RESP 16–22; TEMP 36.3–37.1; O2SAT 90–95
[2024-05-21] MEDS: 0.9 % Sodium Chloride Flush 3 ML SYRINGE IVFLUSH ×4 (00:15→21:26)
[2024-05-21 02:45] LABS: Lactic Acid 4.6 mmol/L (0.5-2.0)
[2024-05-21 04:20] LABS: Reflex Lactate? Lactic Acid Added
[2024-05-21] MEDS: Albuterol/Iprat 2.5/0.5MG 3 ML AMPUL.NEB INHALE ×2 (08:00→11:34)
[2024-05-21 08:03] LABS: Glucose, Whole Blood 177 mg/dL (60-115)
--- NOTE | 2024-05-21 08:04 | MHC.CM.PN ---
CM met with Patient at bedside. Patient lives in a trailer with her Boyfriend/HCP/Wiley and [facility] supplies her home O2; she required no AD to assist with mobility ANIMAL THERAPIST.Home is the goal and CM has initiated and will follow for dc planning. PCP is Dr. Magalie Nicolas.
[2024-05-21 08:39] LABS: Basophils Percent Auto 0.2 % (0-2); Hematocrit 35.1 % (37.0-47.0); Hemoglobin 10.3 g/dl (12.0-16.0); Imm Gran Pct Auto 0.8 % (0.0-0.4); Lymphocytes Absolute Auto 1.1 X10*3/uL (1.2-4.9); Lymphocytes Percent Auto 8.6 % (20-40); MANUAL DIFF FLAG NO; Mean Corpuscular HGB Conc 29.3 g/dl (31.0-35.0); Mean Corpuscular Hemoglobin 25.1 pg (27.0-33.0); Mean Corpuscular Volume 85.6 fL (80.0-98.0); Mean Platelet Volume 9.9 fL (9.4-12.3); Monocytes Absolute Auto 0.8 X10*3/uL (0.1-1.2); Neutrophils Absolute Auto 10.7 x10*3/uL (2.0-8.3); Neutrophils Percent Auto 84.4 % (45-73); Platelet Count 275 X10*3/uL (160-400); Red Cell Distribution Width 17.8 % (11.0-16.0); White Blood Count 12.7 X10*3/uL (4.8-10.8)
[2024-05-21 08:59] LABS: ~Lactic Acid-LAB USE ONLY 1.9 mmol/L (0.5-2.0)
[2024-05-21 09:01] LABS: Anion Gap 13 (12-20); Blood Urea Nitrogen 7 mg/dL (9-16); Calcium 9.5 mg/dL (8.4-10.2); Carbon Dioxide 32 mmol/L (22-29); Chloride 103 mmol/L (96-108); Creatinine Clr Calc Pharmacy 75.1; Estimated Glomerular Filt Rate > 60; Glucose Random 172 mg/dL (60-115); Potassium 3.2 mmol/L (3.3-5.1); Sodium 145 mmol/L (135-145)
--- NOTE | 2024-05-21 09:16 | PHA.MEDREC ---
Addendum entered by Frandy Glass 05/21/24 09:21: reviewed Original Note: Pharmacy Consult ? Medication Reconciliation Pharmacy has completed the medication reconciliation.
[2024-05-21] MEDS: Doxycycline Hyclate 100 MG in 0.9 % Sodium Chloride 250 ML 166.67 MG IV ×2 (09:46→21:26)
[2024-05-21] MEDS: Enoxaparin Sodium 40 MG/0.4 ML SYRINGE SUBCUT (09:47)
[2024-05-21] MEDS: methylPREDNISolone Sod Succ 40 MG/ML VIAL IVPUSH ×2 (09:47→21:26)
[2024-05-21] MEDS: Insulin Lispro 100 UNIT/ML 3 ML VIAL SUBCUT ×3 (09:48→17:53)
[2024-05-21 11:34] LABS: Glucose, Whole Blood 199 mg/dL (60-115)
--- NOTE | 2024-05-21 12:44 | P.PNIM_ITS ---
Subjective Subjective Date of Service: 05/21/24 Interval History: Seen and examined this morning Follow-up for COPD exacerbation, lactic acidosis Patient awake, alert, reports ongoing dyspnea, mostly dry cough No fever, chills Review of Systems Review of Systems: Yes all other systems are reviewed and are negative Constitutional Constitutional: Denies chills and Denies fever(s) Cardiovascular Cardiovascular: Denies chest pain, Denies palpitations and Reports dyspnea Respiratory Respiratory: Reports cough and Reports dyspnea Endocrine Endocrine: Denies palpitations Physical Exam 2 Vital Signs: Vital Signs: Last Vital Signs Temp 97.3 F 05/21/24 12:00 Pulse 96 05/21/24 12:00 Resp 17 05/21/24 12:00 BP 178/77 H 05/21/24 12:00 Pulse Ox 94 05/21/24 12:00 O2 Del Method Nasal Cannula 05/21/24 12:00 O2 Flow Rate 3 05/21/24 12:00 BMI result Body Mass Index 24.7 Const: General: cooperative, comfortable, alert and awake Nutritional Appearance: average body habitus Orientation/consciousness: patient oriented x3 Resp: Other: Bilateral expiratory wheezing Effort & Inspection: normal respiratory effort, no respiratory distress and no use of accessory muscles Cardio: Rate: regular rate GI: Inspection: No distended Palpation (GI): Soft to palpation and nontender Neuro: Other: Bilateral upper extremity tremor General: patient oriented x3, moves all extremities and CN's II-XI intact bilaterally Extrem: General: Yes no pedal edema Objective Data Active Medications Acetaminophen (Acetaminophen 325 Mg Tablet) 975 mg PO Q6H PRN PRN Reason: Pain, Mild (Pain Scale 1-3), fever or headache Albuterol Sulfate (Albuterol Sulfate (0.083%) 2.5 Mg/3 Ml Vial.Neb) 2.5 mg INHALE Q2H PRN PRN Reason: Shortness of Breath/Wheezing Albuterol/Ipratropium (Albuterol/Iprat 2.5/0.5mg 3 Ml Ampul.Neb) 3 ml INHALE RQ4H WHILE AWAKE [facility] Last Admin: 05/21/24 11:34 Dose: 3 ml Documented By: PATI Enoxaparin Sodium (Enoxaparin Sodium 40 Mg/0.4 Ml Syringe) 40 mg SUBCUT Q24H [facility] Last Admin: 05/21/24 09:47 Dose: 40 mg Documented By: RENZO Glucose (Glucose Gel 15 Gm Gel..Gram.) 15 gm PO Q15M PRN; Protocol PRN Reason: per Hypoglycemia Standing Ord. Dextrose (D10) 250 mls @ 750 mls/hr IV Q15M PRN; Protocol PRN Reason: per Hypoglycemia Standing Ord. Doxycycline Hyclate 100 mg/ (Sodium Chloride) 250 mls @ 166.67 mls/hr IV BID [facility] Last Admin: 05/21/24 09:46 Dose: 166.67 mls/hr Documented By: RENZO Insulin Human Lispro (Insulin Lispro 100 Unit/Ml 3 Ml Vial) 0 unit SUBCUT QIDACHS [facility]; Protocol Last Admin: 05/21/24 12:21 Dose: 2 unit Documented By: RENZO Magnesium Hydroxide (Milk Of Magnesia 30 Ml Oral.Susp) 30 ml PO DAILY PRN PRN Reason: Constipation Methylprednisolone Sodium Succinate (Methylprednisolone Sod Succ 40 Mg/Ml Vial) 40 mg IVPUSH BID [facility] Last Admin: 05/21/24 09:47 Dose: 40 mg Documented By: RENZO Sodium Chloride (0.9 % Sodium Chloride Flush 3 Ml Syringe) 3 ml IVFLUSH QSHIFT [facility] Last Admin: 05/21/24 09:46 Dose: 3 ml Documented By: RENZO Labs 05/21/24 08:25 05/21/24 08:25 Labs: Laboratory Results - last 24 hr 05/20/24 05/20/24 05/20/24 16:38 16:40 16:45 MCV 84.1 MCH 25.0 L MCHC 29.7 L RDW 18.0 H Plt Count 307 MPV 9.4 Immature Gran % (Auto) 0.5 H Neut % (Auto) 88.8 H Lymph % (Auto) 7.1 L [place] % (Auto) 2.8 Eos % (Auto) 0.4 Baso % (Auto) 0.4 Lymph # (Auto) 1.4 [place] # (Auto) 0.5 Eos # (Auto) 0.1 Baso # (Auto) 0.1 Abs Immat Gran (auto) 0.10 H Absolute Neuts (auto) 17.3 H Absolute Nucleated RBC 0.000 Nucleated RBC % (auto) 0.0 VBG pH 7.41 VBG pCO2 59 VBG pO2 109 VBG HCO3 38 H VBG O2 Saturation 99.0 VBG Base Excess 11.8 Anion Gap 20 Estim Creat Clear Calc 68.7 Estimated GFR > 60 POC Glucose Random Glucose 181 H Lactic Acid Lactic Acid F/U @ 2Hr Calcium 10.1 Magnesium 1.3 L* Total Bilirubin 0.4 AST 14 ALT 12 Alkaline Phosphatase 58 Troponin I High Sens 6.7 Total Protein 7.1 Albumin 4.4 Urine Color Urine Appearance Urine pH Ur Specific [place] Urine Protein Urine Glucose (UA) Urine Ketones Urine Blood Urine Nitrite Ur Leukocyte Esterase Influenza Type A (PCR) NEGATIVE Influenza Type B (PCR) NEGATIVE RSV RNA Qual (PCR) NEGATIVE SARS-CoV-2 RNA (RT-PCR) NEGATIVE 05/20/24 05/20/24 05/20/24 17:04 19:23 19:48 MCV MCH MCHC RDW Plt Count MPV Immature Gran % (Auto) Neut % (Auto) Lymph % (Auto) [place] % (Auto) Eos % (Auto) Baso % (Auto) Lymph # (Auto) [place] # (Auto) Eos # (Auto) Baso # (Auto) Abs Immat Gran (auto) Absolute Neuts (auto) Absolute Nucleated RBC Nucleated RBC % (auto) VBG pH VBG pCO2 VBG pO2 VBG HCO3 VBG O2 Saturation VBG Base Excess Anion Gap Estim Creat Clear Calc Estimated GFR POC Glucose Random Glucose Lactic Acid 4.7 H* Lactic Acid F/U @ 2Hr 5.2 H* Calcium Magnesium Total Bilirubin AST ALT Alkaline Phosphatase Troponin I High Sens Total Protein Albumin Urine Color Yellow Urine Appearance Clear Urine pH 5.5 Ur Specific [place] 1.015 Urine Protein Trace Urine Glucose (UA) Negative Urine Ketones Negative Urine Blood Negative Urine Nitrite Negative Ur Leukocyte Esterase Negative Influenza Type A (PCR) Influenza Type B (PCR) RSV RNA Qual (PCR) SARS-CoV-2 RNA (RT-PCR) 05/20/24 05/21/24 05/21/24 20:59 02:18 07:53 MCV MCH MCHC RDW Plt Count MPV Immature Gran % (Auto) Neut % (Auto) Lymph % (Auto) [place] % (Auto) Eos % (Auto) Baso % (Auto) Lymph # (Auto) [place] # (Auto) Eos # (Auto) Baso # (Auto) Abs Immat Gran (auto) Absolute Neuts (auto) Absolute Nucleated RBC Nucleated RBC % (auto) VBG pH VBG pCO2 VBG pO2 VBG HCO3 VBG O2 Saturation VBG Base Excess Anion Gap Estim Creat Clear Calc Estimated GFR POC Glucose 296 H 177 H Random Glucose Lactic Acid 4.6 H* Lactic Acid F/U @ 2Hr Calcium Magnesium Total Bilirubin AST ALT Alkaline Phosphatase Troponin I High Sens Total Protein Albumin Urine Color Urine Appearance Urine pH Ur Specific [place] Urine Protein Urine Glucose (UA) Urine Ketones Urine Blood Urine Nitrite Ur Leukocyte Esterase Influenza Type A (PCR) Influenza Type B (PCR) RSV RNA Qual (PCR) SARS-CoV-2 RNA (RT-PCR) 05/21/24 05/21/24 08:25 11:25 MCV 85.6 MCH 25.1 L MCHC 29.3 L RDW 17.8 H Plt Count 275 MPV 9.9 Immature Gran % (Auto) 0.8 H Neut % (Auto) 84.4 H Lymph % (Auto) 8.6 L [place] % (Auto) 6.0 Eos % (Auto) 0.0 Baso % (Auto) 0.2 Lymph # (Auto) 1.1 L [place] # (Auto) 0.8 Eos # (Auto) 0.0 Baso # (Auto) 0.0 Abs Immat Gran (auto) 0.10 H Absolute Neuts (auto) 10.7 H Absolute Nucleated RBC 0.000 Nucleated RBC % (auto) 0.0 VBG pH VBG pCO2 VBG pO2 VBG HCO3 VBG O2 Saturation VBG Base Excess Anion Gap 13 Estim Creat Clear Calc 75.1 Estimated GFR > 60 POC Glucose 199 H Random Glucose 172 H Lactic Acid Lactic Acid F/U @ 2Hr 1.9 Calcium 9.5 Magnesium Total Bilirubin AST ALT Alkaline Phosphatase Troponin I High Sens Total Protein Albumin Urine Color Urine Appearance Urine pH Ur Specific [place] Urine Protein Urine Glucose (UA) Urine Ketones Urine Blood Urine Nitrite Ur Leukocyte Esterase Influenza Type A (PCR) Influenza Type B (PCR) RSV RNA Qual (PCR) SARS-CoV-2 RNA (RT-PCR) Assessment and Plan (1) Acute on chronic hypoxic respiratory failure: Status: Acute Plan Maria Elena Kingston is a 64 y/o woman admitted with: Sepsis due to acute COPD exacerbation Met sepsis criteria with leukocytosis, tachycardia, tachypnea Leukocytosis likely due to recent treatment with prednisone Chest x-ray negative for pneumonia Continue IV doxycycline Received IV fluid bolus Blood cultures pending Acute lactic acidosis Likely due to breathing treatments and metformin not severe sepsis Resolved with IV fluid Acute on chronic hypoxic respiratory failure secondary to acute exacerbation of COPD. Supplemental O2 to keep O2 sats > 90%. Continue bronchodilator therapy, IV steroids IV antibiotics. Type 2 diabetes mellitus. SSI, POCs Hold metformin Diabetic diet. Hypokalemia, mild Replace orally Check magnesium Follow BMP Essential hypertension. Continue amlodipine and losartan. Hyperlipidemia. Continue statin. Tobacco dependence. Tobacco cessation education. NRT ?neuropathy Continue gabapentin DVT prophylaxis: Lovenox Code status: Full Requires ongoing inpatient hospitalization for acute on chronic hypoxic respiratory failure secondary to acute exacerbation of COPD treatment with supplemental oxygen, bronchodilator therapy, IV antibiotics and steroids. Quality Stroke Does the patient have a stroke diagnosis?: No VTE Prior VTE?: No VTE Risk Level:: Medical - moderate - high VTE Device Contraindication: Treatment Not Indicated VTE Drug Contraindication: N/A - Med Ordered
[2024-05-21] MEDS: Potassium Chloride Packet 20 MEQ PACKET 40 MEQ PO (12:56)
[2024-05-21 13:00] LABS: Magnesium 1.9 mg/dL (1.6-2.6)
[2024-05-21] MEDS: Metoclopramide HCl 10 MG TABLET PO ×2 (16:00→21:25)
[2024-05-21] MEDS: Gabapentin 400 MG CAPSULE 800 MG PO ×2 (16:00→21:26)
[2024-05-21] MEDS: Baclofen 10 MG TABLET PO ×2 (16:00→21:25)
[2024-05-21 17:07] LABS: Glucose, Whole Blood 204 mg/dL (60-115)
[2024-05-21 20:51] LABS: Glucose, Whole Blood 145 mg/dL (60-115)
[2024-05-21] MEDS: Aspirin Enteric Coated 81 MG TABLET.DR PO (21:25)
[2024-05-22] VITALS: BP 160/70; PULSE 79; RESP 20; TEMP 36.1; O2SAT 96
[2024-05-22 03:47] VITALS: BP 129/61; PULSE 72; RESP 20; TEMP 36.3; O2SAT 96
[2024-05-22] MEDS: Omeprazole 20 MG CAPSULE.DR PO (05:46)
[2024-05-22 06:36] LABS: Anion Gap 10 (12-20); Blood Urea Nitrogen 9 mg/dL (9-16); Calcium 9.4 mg/dL (8.4-10.2); Carbon Dioxide 34 mmol/L (22-29); Chloride 102 mmol/L (96-108); Creatinine Clr Calc Pharmacy 81.3; Estimated Glomerular Filt Rate > 60; Glucose Random 185 mg/dL (60-115); Potassium 3.6 mmol/L (3.3-5.1); Sodium 142 mmol/L (135-145)
[2024-05-22 07:19] VITALS: BP 145/68; PULSE 86; RESP 17; TEMP 36.1; O2SAT 96
[2024-05-22 07:35] LABS: Glucose, Whole Blood 148 mg/dL (60-115)
[2024-05-22] MEDS: Albuterol/Iprat 2.5/0.5MG 3 ML AMPUL.NEB INHALE (07:41)
[2024-05-22 07:43] VITALS: PULSE 84; RESP 16; O2SAT 98
[2024-05-22] MEDS: Nicotine 21 MG PATCH.TD24 TRANSDERMA (08:32)
[2024-05-22] MEDS: methylPREDNISolone Sod Succ 40 MG/ML VIAL IVPUSH (08:32)
[2024-05-22] MEDS: 0.9 % Sodium Chloride Flush 3 ML SYRINGE IVFLUSH (08:33)
[2024-05-22] MEDS: Enoxaparin Sodium 40 MG/0.4 ML SYRINGE SUBCUT (08:33)
[2024-05-22] MEDS: Metoclopramide HCl 10 MG TABLET PO (08:33)
[2024-05-22] MEDS: Gabapentin 400 MG CAPSULE 800 MG PO (08:33)
[2024-05-22] MEDS: Losartan Potassium 50 MG TABLET PO (08:33)
[2024-05-22] MEDS: Atorvastatin Calcium 20 MG TABLET PO (08:33)
[2024-05-22] MEDS: Baclofen 10 MG TABLET PO (08:33)
[2024-05-22] MEDS: amLODIPine Besylate 5 MG TABLET PO (08:33)
[2024-05-22] MEDS: Cholecalciferol (Vitamin D3) 25 MCG TABLET 50 MCG PO (08:33)
--- NOTE | 2024-05-22 11:18 | MHC.CM.PN ---
Patient is discharged today. She will return home. Home oxygen therapy will resume. Oxygen is provided by Apr. Her S.O. will provide transportation home.
--- NOTE | 2024-06-05 10:50 | P.DS_ITS ---
DS: Providers Provider Date of Service: 06/05/24 Date of admission: 05/20/24 19:53 Primary care physician: Magalie Nicolas MD DS: Diagnosis Discharge Diagnosis (1) Acute on chronic hypoxic respiratory failure: Status: Resolved DS: Summary Hospital Course Hospital Course: History and physical as per admitting provider. Maria Elena Kingston is a 64 years old past medical history significant for COPD -on home O2 2L/min, type 2 mellitus on metformin, essential hypertension and hyperlipidemia presents to the ED complaining of worsening shortness on breath associated with productive cough, wheezing and chest tightness. She denied any headache, palpitations, dizziness, fevers chills. She denied any acute gastrointestinal or genitourinary symptoms. She is ongoing tobacco smoker. Denies alcohol abuse or illicit drug use. The patient was recently hospitalized with diagnosis of acute on chronic hypoxic respiratory failure secondary to acute exacerbation of COPD. In the ED today, she was found to have low O2 sats 88% on 2 L/min nasal cannula. She is not requiring 5 L/min. Blood workup was remarkable for leukocytosis of 13.3. Hemoglobin is 11.3 which is at baseline. Platelets are normal. Venous blood gas showed no respiratory acidosis. There is small hypernatremia of 146. CO2 is 37. Magnesium is 1.3. Renal function is normal and LFTs as well. Troponin is 6.7. ECG showed normal sinus rhythm with a heart rate of 95 beats per minutes without obvious ischemic changes. CXR is unremarkable. Sepsis due to acute COPD exacerbation Met sepsis criteria with leukocytosis, tachycardia, tachypnea Leukocytosis likely due to recent treatment with prednisone Chest x-ray negative for pneumonia Treated with IV doxycycline Received IV fluid bolus Blood cultures negative Acute lactic acidosis Likely due to breathing treatments and metformin not severe sepsis Resolved with IV fluid Acute on chronic hypoxic respiratory failure secondary to acute exacerbation of COPD. Supplemental O2 to keep O2 sats > 90%. continue home medications Type 2 diabetes mellitus metformin Hypokalemia, mild Replaced orally Essential hypertension. Continue amlodipine and losartan. Hyperlipidemia. Continue statin. Tobacco dependence. Tobacco cessation education. NRT neuropathy Continue gabapentin Time Attestation Discharge Coordination Time (in mins): 35 Quality: Safe Use of Opioids Does Pt have an Active Cancer Diagnosis on the Problem List?: No Quality: Stroke Does the patient have a stroke diagnosis?: No Physical Exam Vital Signs: Vital Signs: Last Vital Signs Temp 97.0 F 05/22/24 07:19 Pulse 84 05/22/24 07:43 Resp 16 05/22/24 07:43 BP 145/68 H 05/22/24 07:19 Pulse Ox 96 05/22/24 07:19 O2 Del Method Nasal Cannula 05/22/24 07:19 O2 Flow Rate 2 05/22/24 07:19 BMI result Body Mass Index 24.7 Appearing in no acute distress head is normocephalic atraumatic eyes pupils are PERRLA sclera is anicteric mouth throat mucous membranes are intact and moist neck is supple no lymphadenopathy, no JVD noted lung sounds are clear to auscultation heart regular rate rhythm, clear S1, S2 positive bowel sounds, abdomen is soft, nontender neuro patient is alert x3, no focal deficits Discharge Plan Discharge Anticipated Discharge Date/Time: 05/22/24 10:34 Patient Disposition: Home, Self-Care Discharge Diagnosis: COPD exacerbation Sepsis Acute on chronic hypoxic respiratory failure Hypokalemia Referrals: Magalie Nicolas MD [Primary Care Provider] - 1 Week Discharge Medications: Continued (DME) lancets [FreeStyle Lancets] 28 gauge misc See Rx Instructions .Route Qty: 100 5RF Rx Instructions: As directed twice a day AC (DME) FreeStyle Lite Strips Strip See Rx Instructions .Route Qty: 100 0RF Rx Instructions: check fasting blood sugar twice a day before meals (DME) FreeStyle Cristian 2 Sensor Kit See Rx Instructions .Route Qty: 6 3RF Rx Instructions: Test blood sugar 4 times per day (DME) FreeStyle Cristian 2 [place] Misc See Rx Instructions .Route Qty: 1 0RF Rx Instructions: test blood sugar 4 times per day losartan 50 mg tablet 50 mg PO DAILY Qty: 90 1RF Januvia 100 mg tablet 100 mg PO DAILY Qty: 90 1RF cholecalciferol (vitamin D3) 50 mcg (2,000 unit) capsule 50 mcg PO DAILY Qty: 90 1RF rosuvastatin 5 mg tablet 5 mg PO DAILY Qty: 90 1RF gabapentin 800 mg tablet 800 mg PO TID 30 Days Qty: 90 6RF amlodipine 5 mg tablet 5 mg PO DAILY Qty: 90 0RF metoclopramide HCl 10 mg tablet 10 mg PO TID Qty: 90 6RF albuterol sulfate 2.5 mg /3 mL (0.083 %) solution for nebulization 2.5 mg inhalation Q6H PRN (Reason: wheezing) psyllium husk [Fiber Laxative (psyllium husk)] 0.52 gram capsule 1.04 g PO BID baclofen 10 mg tablet 10 mg PO TID metformin 1,000 mg tablet 1,000 mg PO BID lansoprazole 30 mg capsule,delayed release(DR/EC) 30 mg PO DAILY@0630 umeclidinium 62.5 mcg/actuation blister with device 1 inh inhalation DAILY Rx Instructions: Encruse aspirin [Adult Low Dose Aspirin] 81 mg tablet,delayed release (DR/EC) 81 mg PO BEDTIME (DME) blood-glucose meter [FreeStyle Lite Meter] Kit See Rx Instructions .Route Qty: 1 0RF Rx Instructions: As directed twice a day before meals No Action acetaminophen 650 mg Tablet Extended Release 650 mg PO TID PRN (Reason: Pain) ferrous sulfate 324 mg (65 mg iron) tablet,delayed release (DR/EC) 324 mg PO DAILY nicotine 14 mg/24 hr patch 24 hour 1 patch topical DAILY Linzess 145 mcg capsule 145 mcg PO DAILY magnesium oxide 400 mg (241.3 mg magnesium) Tablet 400 mg PO DAILY Qty: 7 0RF prednisone 20 mg tablet 40 mg PO DAILY Qty: 8 0RF azithromycin [Zithromax] 250 mg tablet 250 mg PO DAILY 4 Days Qty: 4 0RF Discharge Orders: Discharge Order (Routine); Ordered 05/22/24 Ordered By: Jessica Paulson Diet: Advance to usual diet Activity on Discharge: As tolerated Stand Alone Forms: Patient Portal Discharge page Print Language: [place] Care Plan Goals: Complete antibiotic and prednisone taper Health Concerns: COPD exacerbation Sepsis Acute on chronic hypoxic respiratory failure Hypokalemia Plan of Treatment: Follow-up with primary care provider as needed Take all medications as prescribed Assessment: See discharge summary Discharge Date/Time: 05/22/24 12:41
== END 2024-05-22 12:41 | disposition home or self-care (01) | DRG 720 ==
LOC: HO.ED 18:39 → HO.EDOVER 20:03 → HO.IMC 05-21 02:46
PROVIDERS: Physician Assistant Medical; Admitting Provider Internal Medicine; Emergency Provider Emergency Medicine; PCP Internal Medicine; Visit Provider Nurse Practitioner Acute Care
DX: A41.9 Sepsis, unspecified organism (principal); J96.21 Acute and chronic respiratory failure with hypoxia; E87.21 Acute metabolic acidosis; J44.1 Chronic obstructive pulmonary disease with (acute) exacerbation; I50.32 Chronic diastolic (congestive) heart failure; F17.210 Nicotine dependence, cigarettes, uncomplicated; E87.6 Hypokalemia; E78.2 Mixed hyperlipidemia; I11.0 Hypertensive heart disease with heart failure; Z71.6 Tobacco abuse counseling; Z99.81 Dependence on supplemental oxygen; Z20.822 Contact with and (suspected) exposure to COVID-19; Z79.82 Long term (current) use of aspirin; Z79.84 Long term (current) use of oral hypoglycemic drugs; Z79.899 Other long term (current) drug therapy
CPT/HCPCS: 0241U; 36415; 71045; 80048; 80053; 81003; 82803; 82947; 83605; 83735; 84484; 85025; 87040; 93005; 94640; 99285; J1650; J1956; J2919; J3475

== ENCOUNTER → 2024-05-20 19:53 | Outpatient (BNV) | payer OTHER, SELFPAY | PROVIDERS: Admitting Provider Internal Medicine; Emergency Provider Emergency Medicine; PCP Internal Medicine; Visit Provider Internal Medicine | DX: A41.9 Sepsis, unspecified organism (principal); J44.1 Chronic obstructive pulmonary disease with (acute) exacerbation; J96.21 Acute and chronic respiratory failure with hypoxia | CPT/HCPCS: 99223; 99232; 99239 ==

== ENCOUNTER 2024-05-22 14:45 | Outpatient (AMB) | payer OTHER, SELFPAY ==
--- NOTE | 2024-05-22 14:54 | MHC.OFFVIS ---
Intake Visit Reasons: renal mass Intake Note: Pt presents to the office today for an ER follow up renal mass. Allergies amoxicillin [AMOXICILLIN] Allergy (Intermediate, Verified 06/18/24 17:03) RASH HPI Comments Details: 63-year-old female with pertinent history of chronic hypoxia due to COPD on 2 L supplemental oxygen, hypertension, hyperlipidemia, [id number] diabetes mellitus, gastroesophageal reflux disease, tobacco use disorder who was admitted due to dyspnea and abdominal pain. CTAP - and renal US indeterminate small lesion right kidney PFSH Medical History Gastritis Gastroparesis COPD (chronic obstructive pulmonary disease) Shortness of breath Hypochromic anemia COPD (chronic obstructive pulmonary disease) Type 2 diabetes mellitus without complication, with no history of insulin use Heavy cigarette smoker Acute on chronic hypoxic respiratory failure Diabetic gastroparesis COPD (chronic obstructive pulmonary disease) Mixed dyslipidemia Essential hypertension GERD (gastroesophageal reflux disease) Diastolic CHF with preserved left ventricular function, NYHA class 2 Chronic hypercapnic respiratory failure Type 2 diabetes mellitus with other diabetic kidney complication Type 2 diabetes mellitus without complication, with no history of insulin use Smoker unmotivated to quit Postlaminectomy syndrome of cervical region Seasonal allergic rhinitis Degenerative disc disease, cervical Postmenopause Dyslipidemia Surgical History H/O cervical discectomy History of esophagogastroduodenoscopy (EGD) Hx of colonoscopy Family History Mother Diabetes Sister Diabetes Mental health disorder Brother Diabetes Father HTN (hypertension) Social History Household Members: Significant Other Housing: Other Housing Other:: mobile home Do you presently have visiting nurse or other home services: Yes (1x/week, for housecleaning) Alcohol intake: former Comment: Commode/ Hi Flow O2 Patient Tobacco Use Status: Current everyday Tobacco user Tobacco use type: Cigarette Cigarette Packs Per Day: 1 Cigarettes Per Day: 20 Years Smoked: 50 e-Cigarette/Vaping Use: Never Used Second Hand Smoke Exposure: Yes Advance Directives Date on File: 08/02/23 service: No Current occupational status: unemployed Cognitive needs: No Hearing needs: No Vision needs: Yes Review of Systems Const All systems reviewed & are unremarkable except as noted in HPI and below Reports no additional complaints Eyes Reports no additional complaints ENT Reports no additional complaints Card Reports no additional complaints Resp Reports no additional complaints GI Reports no additional complaints Reports as per HPI Musc Reports no additional complaints Skin/Breast Reports system reviewed and no additional complaints, except as documented Neuro Reports no additional complaints Psych Reports no additional complaints Endo Reports no additional complaints Patel/Lymph Reports no additional complaints Aller/Immun Reports no additional complaints Physical Exam Const General: cooperative, healthy appearing and no acute distress Orientation/consciousness: patient oriented x3 HEENT Head: Yes normal to inspection, Yes normocephalic and Yes atraumatic Eyes Conjunctivae: conjunctivae normal Neck Neck: Yes normal visual inspection and Yes trachea midline Chest Chest palpation & inspection: normal inspection of the chest Resp Effort & Inspection: normal respiratory effort Cardio Rate: regular rate GI Inspection: Yes normal to inspection Neuro General: patient oriented x3 Extrem General: No edema Psych Appearance: grossly normal Results Reviewed Results Reviewed: Date of Service: 04/18/24 CT ABDOMEN AND PELVIS WITHOUT AND WITH CONTRAST CLINICAL INFORMATION: Right renal mass. COMPARISON: None available. TECHNIQUE: Contiguous axial thin section helical images of the abdomen were performed before and after the administration of oral contrast and 85 mL of Omnipaque 350 intravenous contrast. The data set was reformatted in the coronal and sagittal planes and reviewed on an independent workstation. This CT examination was performed using dose optimization techniques as appropriate, variously including the following: *Automated exposure control *Adjustment of mA and/or kV according to patient size (this includes techniques or standardized protocols for targeted exams where dose is matched to indication/reason for exam; i.e. extremities or head) *Use of iterative reconstruction technique DLP: 574 mGy-cm FINDINGS: LUNG BASES: Scarring present at the lung bases with some traction bronchiectasis on the right. There are a number of small pulmonary nodules seen at the right lung base the largest measuring 5 mm (6:22). LIVER, GALLBLADDER, AND BILIARY TREE: The liver, gallbladder and bile ducts are unremarkable. PANCREAS: Normal. SPLEEN: Normal. ADRENAL GLANDS: Normal. KIDNEYS: Right: There is a large 3.4 x 2.4 x 2.4 cm right lower pole enhancing renal mass consistent with a renal cell carcinoma. The mass extends to just before the level of the renal sinus. There are 2 additional tiny masses seen in the mid to upper left kidney laterally which measure 0.6 cm and 0.5 cm which may represent either tiny angiomyolipomas or cysts. In either case, these are not worrisome findings. No nephrocalcinosis. No hydronephrosis. The right ureter appears normal. Left: The left kidney and ureter appear normal. BOWEL LOOPS: Dense barium is present throughout the colon. No evidence of bowel obstruction. LYMPH NODES: No retroperitoneal lymphadenopathy. VASCULAR: Calcific atherosclerotic changes are present in the aorta and iliofemoral vessels with significant area of stenosis in the infrarenal aorta as well as in the iliac vessels. I suspect that this patient is a smoker and this represents Leriche syndrome. There is no evidence of an abdominal aortic aneurysm. BONES: Mild degenerative changes are present in the spine. No bony destructive lesions are seen to suggest metastatic disease. IMPRESSION: 1. A 3.4 cm right lower pole enhancing renal mass consistent with renal cell carcinoma. 2. No evidence of metastatic disease in the abdomen or pelvis. 3. Other incidental findings as described above including severe aortoiliac atherosclerotic changes with stenosis of the infrarenal aorta and iliac vessels. This patient is likely a smoker and this represents Leriche syndrome. 4. Incidentally noted pulmonary nodules, the largest measuring [address] at 3-6 months (per oncology protocol) to confirm persistence. Assessment & Plan Assessment & Plan (1) Renal cell carcinoma: Code(s): C64.9 - Malignant neoplasm of unspecified kidney, except renal pelvis Category: Medical Plan Refer to IR for cryoablation Orders: Referrals Interventional Radiology Referral C64.9 - Malignant neoplasm of unspecified kidney, except renal pelvis Patient Instructions: The patient had an opportunity to ask questions regarding treatment plan. The patient expressed understanding and agreement with the above treatment plan. The patient is aware they should contact our office by phone for worsening of their current condition or the appearance of new symptoms. Compliance is encouraged with any medications and followup testing that is ordered. It is a privilege to be allowed the opportunity to participate in the urologic care of your patient. If you have any questions or concerns regarding treatment for the above conditions please do not hesitate to contact me. The office telephone contact is [phone]. This note is constructed in part using voice recognition software. While every effort has been made to ensure accuracy asbestos worker helper errors may have been included. Yours sincerely, Vikki Rangel MD Coding Level of Care Code New Pt Level 4 (54279) Diagnoses Renal cell carcinoma C64.9
== END 2024-05-22 15:44 | disposition home or self-care (01) ==
PROVIDERS: PCP Internal Medicine; Visit Provider Urology
DX: C64.9 Malignant neoplasm of unspecified kidney, except renal pelvis (principal)
CPT/HCPCS: 99214

== ENCOUNTER → 2024-05-22 14:45 | Outpatient (BNVA) | payer OTHER, SELFPAY | PROVIDERS: PCP Internal Medicine; Visit Provider Urology | DX: N28.89 Other specified disorders of kidney and ureter (principal) | CPT/HCPCS: 99212 ==

== ENCOUNTER 2024-05-29 09:42 | Outpatient (AMB) | payer OTHER, SELFPAY ==
[2024-05-29 10:31] VITALS: BP 138/52; PULSE 103; O2SAT 93; BMI 24.7
--- NOTE | 2024-05-29 10:31 | MHC.PC.OV ---
Vital Signs 05/29/24 10:31 Height 4 ft 9 in Weight 114 lb BMI 24.7 BP 138/52 L Blood Pressure Location Lt brachial Position Sitting Pulse 103 H Pulse Source Pulse Oximeter Pulse Oximetry (%) 93 Oxygen Delivery Method Nasal Cannula Intake Visit Reasons: COPD HDF Intake Note: Pt is here today for her COPD HDF Allergies amoxicillin [AMOXICILLIN] Allergy (Intermediate, Verified 06/01/24 04:03) RASH Medication List - Last Reconciled 05/29/24 by Magalie Nicolas MD albuterol sulfate 2.5 mg inhalation Q6H PRN amlodipine 5 mg PO DAILY aspirin (Adult Low Dose Aspirin) 81 mg PO BEDTIME baclofen 10 mg PO TID blood-glucose meter (FreeStyle Lite Meter kit) As directed twice a day before meals cholecalciferol (vitamin D3) 50 mcg PO DAILY flash glucose scanning reader (Rev[employer] TechnologyStyle Cristian 2 [place]) test blood sugar 4 times per day flash glucose sensor (FreeStyle Cristian 2 Sensor kit) Test blood sugar 4 times per day fluticasone furoate 200 mcg/actuation (Arnuity Ellipta) 1 inh inhalation DAILY FreeStyle Lite Strips (blood sugar diagnostic) check fasting blood sugar twice a day before meals NS gabapentin 800 mg PO TID 30 days lancets (FreeStyle Lancets) As directed twice a day AC lansoprazole 30 mg PO DAILY@0630 linaclotide (Linzess) 72 mcg PO DAILY losartan 50 mg PO DAILY metformin 1,000 mg PO BID metoclopramide HCl 10 mg PO TID naproxen 500 mg PO BID PRN nicotine 1 patch transdermal DAILY prednisone See Taper mg PO DIRECTED psyllium husk (Fiber Laxative (psyllium husk)) 1.04 grams PO BID rosuvastatin 5 mg PO DAILY sitagliptin phosphate (Januvia) 100 mg PO DAILY umeclidinium 62.5 mcg/actuation 1 inh inhalation DAILY Tobacco use date assessed: 05/29/24 Dental Screening Dental Screen Date: 05/29/24 Did you have a dental visit in the last 12 months?: Yes Did you have a dental problem in the last 6 months where you did not have access to dental care?: Yes Was dental information given to patient?: Patient has dentist HPI COPD HDF HPI Details 64-year-old lady with past medical history of COPD, active cigarette smoker still, has diabetes mellitus, hypertension, dyslipidemia, here today for follow-up after recent discharge from hospital 05/22/2024 for Acute on chronic hypoxic respiratory failure, with sepsis due to acute COPD exacerbation, chest x-ray came back negative for pneumonia. She was given IV doxycycline, IV steroids. She developed acute lactic acidosis which resolved with IV fluids. She was continued on supplemental O2 oxygen to keep O2 sats above 90% and continued on bronchodilator therapy. Developed hypokalemia and given replacement, continued on amlodipine and losartan for hypertension. Continued on her rosuvastatin 5 mg daily. She was given nicotine patch during her stay but does not want to use it upon discharge home. Unfortunately continues to smoke cigarettes and as per boyfriend smokes at least every hour when awake. Has been afebrile but still feels congested and has episodes wheezing. She was recently seen by Urology for evaluation of an abnormal mass seen on imaging steady and diagnosed with renal carcinoma on right. [facility] Medical History (Updated 06/01/24 @ 04:21 by Magalie Nicolas MD) Hypochromic anemia COPD (chronic obstructive pulmonary disease) Type 2 diabetes mellitus without complication, with no history of insulin use Heavy cigarette smoker Acute on chronic hypoxic respiratory failure Diabetic gastroparesis COPD (chronic obstructive pulmonary disease) Mixed dyslipidemia Essential hypertension GERD (gastroesophageal reflux disease) Gastroparesis Diastolic CHF with preserved left ventricular function, NYHA class 2 Chronic hypercapnic respiratory failure Type 2 diabetes mellitus with other diabetic kidney complication Type 2 diabetes mellitus without complication, with no history of insulin use Smoker unmotivated to quit Postlaminectomy syndrome of cervical region Seasonal allergic rhinitis Degenerative disc disease, cervical Postmenopause Dyslipidemia Surgical History H/O cervical discectomy History of esophagogastroduodenoscopy (EGD) Hx of colonoscopy Family History Mother Diabetes Sister Diabetes Mental health disorder Brother Diabetes Father HTN (hypertension) Social History Household Members: Significant Other Housing: Other Housing Other:: mobile home Do you presently have visiting nurse or other home services: Yes (1x/week, for housecleaning) Alcohol intake: former Comment: Commode/ Hi Flow O2 Patient Tobacco Use Status: Current everyday Tobacco user Tobacco use type: Cigarette Cigarette Packs Per Day: 1 Cigarettes Per Day: 20 Years Smoked: 50 e-Cigarette/Vaping Use: Never Used Second Hand Smoke Exposure: Yes Advance Directives Date on File: 08/02/23 service: No Current occupational status: unemployed Cognitive needs: No Hearing needs: No Vision needs: Yes Questionnaire Thrive Questionnaire Date Thrive assessed: 05/21/24 FREDI-7 AMB Questionnaire FREDI-7 Date FREDI - 7 assessed: 09/02/22 Source: Developed by Drs. Wiley Caballero, Sharmila Paez, Iraj Hernandez and colleagues, with an educational radha from [employer]. Review of Systems Const Denies body aches, Denies fever(s), Denies night sweats and Denies poor appetite Eyes Reports requires corrective lenses ENT Reports Normal hearing present, Denies dental pain, Denies dysphagia, Denies hearing loss, Denies throat swelling, Denies tongue swelling and Reports other (Dentition adequate) Card Reports dyspnea on exertion Resp Reports as per HPI, Denies hemoptysis and Reports dyspnea on exertion GI Details: Denies melena, Denies bloating, Denies hematochezia, Reports constipation, Denies GI cramping, Denies dysphagia, Denies excessive flatus, Denies early satiety, Denies nausea, Denies vomiting and Denies hematemesis Reports no additional complaints Musc Reports no additional complaints Neuro Reports no additional complaints, Reports Normal hearing present and Denies Abnormal speech present Patel/Lymph Reports no additional complaints Aller/Immun Denies throat swelling and Denies tongue swelling Physical exam (Primary Care) Vital Signs: Last Vital Signs Pulse 103 H 05/29/24 10:31 BP 138/52 L 05/29/24 10:31 Pulse Ox 93 05/29/24 10:31 Oxygen Delivery Method Nasal Cannula 05/29/24 10:31 BMI result Body Mass Index 24.7 Tobacco/Smoking Status: Tobacco use Status Tobacco use date assessed 05/29/24 05/29/24 10:41 Patient Tobacco Use Status Current everyday Tobacco 05/29/24 10:41 Tobacco use type Cigarette 05/29/24 10:41 e-Cigarette/Vaping Use Never Used 05/29/24 10:41 Are you ready to quit: No Tobacco cessation counseling provided: Yes Thrive Assessment: Date of Thrive Assessment Date Thrive assessed 05/21/24 05/29/24 10:41 Const Other: Frail looking female, supplemental oxygen, accompanied by boyfriend Orientation/consciousness: patient oriented x3 HENMT General nose exam: Normal external nose present and No nasal discharge present Mouth: oropharynx normal and moist mucous membranes Eyes General: appearance normal, both eyes and all related structures Neck Neck: Yes full ROM, Yes no lymphadenopathy and Yes supple Resp Other: on portable O2 at 2 L/NC Effort & Inspection: normal respiratory effort and able to speak in complete sentences Auscultation: diminished lung sounds Cardio Other: S1-S2 present regular rate and rhythm Rate: regular rate Rhythm: regular rhythm Heart sounds: S1 normal heart sound present and S2 normal heart sound present GI Other: Normal bowel sounds, soft, nontender, no mass palpated Skin General skin exam: no rashes or lesions noted and dry skin Neuro General: patient oriented x3 Cranial nerves: Yes Normal hearing present Cognition (Neuro): normal cognition Speech: No Abnormal speech present Gait exam (Neuro): Normal gait present Motor exam (neuro): 5/5 motor strength present throughout Extrem General: Yes full ROM, Yes no joint enlargement, Yes no pedal edema, Yes no calf tenderness and Yes normal gait Results AMB Hemoglobin A1c AMB Hemoglobin A1c 6.4 % Last Edit by Adalgisa Cardenas CMA on 05/29/24 11:10 Results Reviewed Results Reviewed: Laboratory Last Values Hgb A1c (Clinic) 6.4 % (4.0-6.0) H 05/29/24 10:57 Name: Maria Elena Kingston Age/Sex: 64/[facility] 1960 [id number] [id number] Attend Dr: Jessica Paulson NP Re05/20/24 Status: DIS IN Location: [facility] 457-1 Disch: 05/22/24 SPEC : [id number] SEUN: 05/21/24 STATUS: COMP REQ : [id number] RECD: 05/21/[address]: King White MD COMP: 05/21/24 ENTERED: 05/21/[address]: Magalie Nicolas MD ORDERED: CBC Auto Diff Test Result Flag Reference WBC 12.7 H 4.8-10.8 X10*3/uL RBC 4.10 L 4.20-5.50 X10*6/uL HGB 10.3 L 12.0-16.0 g/dl HCT 35.1 L 37.0-47.0 % MCV 85.6 80.0-98.0 fL MCH 25.1 L 27.0-33.0 pg MCHC 29.3 L 31.0-35.0 g/dl RDW 17.8 H 11.0-16.0 % PLT 275 160-400 X10*3/uL MPV 9.9 9.4-12.3 fL Neut Pct Auto 84.4 H 45-73 % ImGran Pct Auto 0.8 H 0.0-0.4 % Lymp Pct Auto 8.6 L 20-40 % [place] Pct Auto 6.0 2-11 % Eos Pct Auto 0.0 0-4 % Baso Pct Auto 0.2 0-2 % NRBC Pct Auto 0.0 0.0-0.2 /100WBC ANC Neut Abs # 10.7 H 2.0-8.3 x10*3/uL ImGran Abs Auto 0.10 H 0.00-0.03 X10*3/uL Lymph Abs Auto 1.1 L 1.2-4.9 X10*3/uL [place] Abs Auto 0.8 0.1-1.2 X10*3/uL Eos Abs Auto 0.0 0.0-0.4 X10*3/uL Baso Abs Auto 0.0 0.0-0.2 X10*3/uL NRBC Abs Auto 0.000 0.0-0.012 X10*3/uL Coding Level of Care Code Est Pt Level 4 (05109) Complex EM visit Add On G2211 Diagnoses COPD (chronic obstructive pulmonary disease) J44.9 Type 2 diabetes mellitus without complication, with no history of insulin use E11.9 Heavy cigarette smoker F17.210 Hypochromic anemia D50.9 Renal cell carcinoma C64.9 Assessment & Plan Assessment & Plan (1) COPD (chronic obstructive pulmonary disease): Code(s): J44.9 - Chronic obstructive pulmonary disease, unspecified Category: Medical Plan: Patient currently followed by [facility], has an appointment coming up later this month. In the meantime continued on her current inhalers, already finished her antibiotics given after discharge strongly encouraged to quit smoking. Patient has nicotine patch at home and encouraged to use it as directed. Do not smoke when using patch. She was given her flu vaccine during recent admission, reminded to get her COVID booster. Up-to-date with her pneumococcal vaccination and shingles vaccine. Recommended to get RSV vaccine (2) Type 2 diabetes mellitus without complication, with no history of insulin use: Code(s): E11.9 - Type 2 diabetes mellitus without complications Category: Medical Plan: Hemoglobin A1c today is at 6.4%. Continue with metformin 1000 mg 1 tablet twice a day, stay well-hydrated when taking medication. Reminded to get her yearly diabetes retinopathy screening. (3) Heavy cigarette smoker: Code(s): F17.210 - Nicotine dependence, cigarettes, uncomplicated Category: Social Hx Plan: Patient strongly advised to stop smoking, as smoking damages blood vessels, degenerative of joints and spine, damage to lungs and heart., predisposes to developing certain cancers like lung, breast, bladder, colon. Recommended to try decreasing cigarette use by 1-2 cigarettes a day. Will try again to help her with quitting smoking with varenicline 1 mg to take 1 tablet twice a day take it with a glass of water and with meals. (4) Hypochromic anemia: Code(s): D50.9 - Iron deficiency anemia, unspecified Category: Medical Plan: Started on iron supplements prescription sent for ferrous sulfate 325 mg to take 1 tablet once a day with lemon water for better absorption (5) Renal cell carcinoma: Code(s): C64.9 - Malignant neoplasm of unspecified kidney, except renal pelvis Category: Medical Plan: Followed by [facility] urology Orders: Orders AMB Hemoglobin A1c 05/29/24 Z13.9 - Encounter for screening, unspecified Medications: New varenicline 1 mg PO BID 56 tabs 2RF ferrous sulfate 325 mg PO DAILY 90 tabs 1RF
== END 2024-05-29 11:45 | disposition home or self-care (01) ==
PROVIDERS: PCP Internal Medicine; Visit Provider Internal Medicine
DX: J44.9 Chronic obstructive pulmonary disease, unspecified (principal); E11.9 Type 2 diabetes mellitus without complications; C64.9 Malignant neoplasm of unspecified kidney, except renal pelvis; F17.210 Nicotine dependence, cigarettes, uncomplicated; D50.9 Iron deficiency anemia, unspecified

== ENCOUNTER → 2024-05-29 09:42 | Outpatient (BNVA) | payer OTHER, SELFPAY | PROVIDERS: PCP Internal Medicine; Visit Provider Internal Medicine | DX: J44.9 Chronic obstructive pulmonary disease, unspecified (principal); E11.9 Type 2 diabetes mellitus without complications; D50.9 Iron deficiency anemia, unspecified; C64.9 Malignant neoplasm of unspecified kidney, except renal pelvis; F17.210 Nicotine dependence, cigarettes, uncomplicated; Z71.6 Tobacco abuse counseling | CPT/HCPCS: 83036; 99212 ==

== ENCOUNTER 2024-05-30 17:04 | Inpatient (IN) | payer OTHER, SELFPAY ==
--- NOTE | ~2024-05-30 | XR_ITS ---
EXAMINATION: XR CHEST CLINICAL INFORMATION: Shortness of COMPARISON: May 20, 2024 TECHNIQUE: 2 views of the chest were obtained. FINDINGS: No significant abnormality is noted involving the heart, lungs, mediastinum, bony thorax or soft tissues. XR/XR chest 2V IMPRESSION: Unremarkable examination. Electronically signed by: Ni Coleman MD 05/30/2024 06:28 PM EDT RP
--- NOTE | 2024-05-30 17:07 | ED_ITS ---
HPI - SOB/Dyspnea General Chief Complaint: Dyspnea Stated Complaint: Difficulty breathing Time Seen by Provider: 05/30/24 17:54 Source: patient Mode of arrival: ambulatory Limitations: no limitations History of Present Illness ED Provider: Farzana PEDRAZA HPI Narrative: 64 year old female hx of GERD, COPD, DM, heavy cigarette smoker, chronic idiopathic constipation presenting to the emergency department with cough, fatigue, malaise, wheezing ongoing for the past few days worsening. Patient reports her cough is mostly dry however intermittently has some sputum production however this is not abnormal for her. She reports she has been having wheezing taking home treatments and nebs with little to no relief. She continues to smoke a pack of cigarettes per day and has been doing so for a long time. She wears 2 L nasal cannula however this does not seem to be enough. When she arrived to the facility she was 71% on room air that was worse with ambulation. Patient denies chest pain, fevers, chills, nausea, vomiting, abdominal pain, headache, vision changes, dizziness and weakness Related Data Home Medications ?Medication ?Instructions ?Recorded ?Confirmed aspirin 81 mg tablet,delayed 81 mg PO BEDTIME 01/10/21 05/21/24 release (Adult Low Dose Aspirin) umeclidinium 62.5 mcg/actuation 1 inh inhalation DAILY 03/31/21 05/21/24 blister powder for inhalation albuterol sulfate 2.5 mg/3 mL 2.5 mg inhalation Q6H PRN wheezing 08/02/23 05/21/24 (0.083 %) solution for nebulization fluticasone furoate 200 1 inh inhalation DAILY 08/25/23 05/21/24 mcg/actuation blister powder for inhalation (Arnuity Ellipta) psyllium husk 0.52 gram capsule 1.04 g PO BID Constipation 02/28/24 05/21/24 (Fiber Laxative (psyllium husk)) baclofen 10 mg tablet 10 mg PO TID 05/06/24 05/21/24 metformin 1,000 mg tablet 1,000 mg PO BID 05/06/24 05/21/24 naproxen 500 mg tablet 500 mg PO BID PRN pain 05/06/24 05/21/24 lansoprazole 30 mg capsule,delayed 30 mg PO DAILY@0630 05/21/24 05/21/24 release linaclotide 72 mcg capsule 72 mcg PO DAILY 05/21/24 05/21/24 (Linzess) nicotine 21 mg/24 hr daily 1 patch transdermal DAILY 05/21/24 05/21/24 transdermal patch Previous Rx's ?Medication ?Instructions ?Recorded blood-glucose meter (FreeStyle #1 ea 10/03/21 Lite Meter kit) lancets 28 gauge (FreeStyle #100 ea 01/06/22 Lancets) FreeStyle Lite Strips (blood sugar #100 ea 03/10/22 diagnostic) flash glucose sensor (FreeStyle #6 ea 02/19/23 Cristian 2 Sensor kit) flash glucose scanning reader #1 ea 03/26/23 (FreeStyle Cristian 2 [place]) losartan 50 mg tablet 50 mg PO DAILY #90 tabs 10/10/23 cholecalciferol (vitamin D3) 50 50 mcg PO DAILY #90 caps 11/22/23 mcg (2,000 unit) capsule sitagliptin phosphate 100 mg 100 mg PO DAILY #90 tabs 11/22/23 tablet (Januvia) rosuvastatin 5 mg tablet 5 mg PO DAILY #90 tabs 12/01/23 gabapentin 800 mg tablet 800 mg PO TID 30 days #90 tabs 01/26/24 amlodipine 5 mg tablet 5 mg PO DAILY #90 tabs 03/20/24 metoclopramide HCl 10 mg tablet 10 mg PO TID #90 tabs 05/11/24 prednisone 10 mg tablet See Taper PO DIRECTED #20 tabs 05/22/24 ferrous sulfate 325 mg (65 mg 325 mg PO DAILY #90 tabs 05/29/24 iron) tablet,delayed release varenicline 1 mg tablet 1 mg PO BID #56 tabs 05/29/24 Allergies Allergy/AdvReac Type Severity Reaction Status Date / Time amoxicillin [AMOXICILLIN] Allergy Intermediate RASH Verified 05/30/24 17:11 Review of Systems 2 Review of Systems: Yes all other systems are reviewed and are negative PMFSH Past Medical History Attestation statement: The following information was validated with the patient. Source: old records reviewed and nursing notes reviewed Medical History Hypochromic anemia COPD (chronic obstructive pulmonary disease) Type 2 diabetes mellitus without complication, with no history of insulin use Heavy cigarette smoker Acute on chronic hypoxic respiratory failure Diabetic gastroparesis Chronic lung disease COPD (chronic obstructive pulmonary disease) Mixed dyslipidemia Essential hypertension GERD (gastroesophageal reflux disease) Gastroparesis Diastolic CHF with preserved left ventricular function, NYHA class 2 Chronic hypercapnic respiratory failure Type 2 diabetes mellitus with other diabetic kidney complication Type 2 diabetes mellitus without complication, with no history of insulin use Smoker unmotivated to quit Postlaminectomy syndrome of cervical region Seasonal allergic rhinitis Degenerative disc disease, cervical Postmenopause Dyslipidemia Surgical History H/O cervical discectomy History of esophagogastroduodenoscopy (EGD) Hx of colonoscopy Family History Family History Mother Diabetes Sister Diabetes Mental health disorder Brother Diabetes Father HTN (hypertension) Social History Social History Household Members: Significant Other Housing: Other Housing Other:: mobile home. Do you presently have visiting nurse or other home services: No (home O2) Alcohol intake: former Comment: Commode/ Hi Flow O2 Patient Tobacco Use Status: Current everyday Tobacco user Tobacco use type: Cigarette Cigarette Packs Per Day: 1 Cigarettes Per Day: 20.0 Years Smoked: 50 Smoked in Last 30 Days: Yes e-Cigarette/Vaping Use: Never Used Second Hand Smoke Exposure: Yes Use of substances other than those prescribed or required for medical reasons: No Advance Directives: Yes Advance Directives on File: Yes Advance Directives Date on File: 08/02/23 service: No Current occupational status: unemployed Cognitive needs: No Hearing needs: No Vision needs: Yes Physical Exam 2 Vital Signs: Vital Signs: Last Vital Signs Temp 97.9 F 05/30/24 17:09 Pulse 97 05/30/24 17:52 Resp 22 H 05/30/24 17:52 BP 125/50 L 05/30/24 17:09 Pulse Ox 88 L 05/30/24 17:09 O2 Del Method Nasal Cannula 05/30/24 17:09 Oxygen Flow Rate 2 05/30/24 17:09 BMI result Body Mass Index 24.7 vss Appearance: Alert.? Oriented X3.? No acute distress.? Head: Normocephalic, atraumatic, no step-offs or deformities Eyes: Pupils equal, round and reactive to light.? CVS: Normal heart rate and rhythm.? Pulses normal.? Respiratory: No respiratory distress.? Breath sounds significant b/l wheezing .? Abdomen: Soft and nontender.? Skin: Skin warm and dry.? Normal skin color.? Normal skin turgor.? Extremities: No lower extremity edema.? No calf ttp. 5/5 strength to bilateral upper and lower extremities Back: No midline tenderness, no C-spine tenderness, full range of motion, no CVA tenderness bilaterally Neuro: Oriented X 3.? No motor deficit.? No sensory deficit. CN 2-12 intact Course Course Course Narrative: This is an RME: Additional HPI, ROS, PE not included below will be deferred to primary provider. RME assessment and note performed by: Gena Mcgarry PA-C This is a 20-[id number]-female, with a hx of COPD on 2L supplemental O2, who presents to the ER with complaints of shortness of breath since yesterday. +Cough with sputum. No CP. Upon arrival, patient found to be hypoxic at 71%. She is chronically on 2 L of supplemental oxygen, has been without her oxygen for 15-20 minutes prior to her triaging. She was placed on 2 L and brought back to the emergency room for further workup. Plan: Labs, EKG, chest x-ray, ED bronch protocol Reevaluation(s) Reevaluation #1: Patient with chronic leukocytosis this is likely secondary to steroid use, unlikely infectious, no left shift. Chemistry pending. Time: 18:30 Reevaluation #2: Patient's magnesium is low 1.5, IV repletion ordered. Time: 19:32 Reevaluation #3: Chemistry with no acute findings needing emergent intervention, dioxide slightly elevated however this appears to be around her baseline. Like stated previously magnesium 1.3 IV magnesium ordered. Troponin 6.7 will repeat at 03:00 hour rodney. VBG appears to be around her baseline. Upon re-evaluation patient is still diminished with expiratory wheezing. Another breathing treatment ordered. Plan hospital admission Time: 19:34 Medications Administered Generic Name Dose Route Start Last Admin Trade Name Freq PRN Reason Stop Dose Admin Magnesium Sulfate 2 gm in 50 mls @ 25 mls/hr 05/30/24 17:59 05/30/24 18:10 Magnesium Sulfate/H2o IV 05/30/24 19:58 25 mls/hr ONCE ONE Administration Discontinued Medications Generic Name Dose Route Start Last Admin Trade Name Jordon PRSanjuanita Reason Stop Dose Admin Albuterol Sulfate 7.5 mg/ 10 mg 05/30/24 19:27 05/30/24 19:32 Albuterol Sulfate 2.5 mg INHALE 05/30/24 19:28 10 mg ONCE ONE Administration Albuterol Sulfate 5 mg/ 0 mg 05/30/24 17:31 05/30/24 17:51 Albuterol/Ipratropium 3 ml INHALE 05/30/24 17:32 1 each ONCE ONE Administration Methylprednisolone Sodium Succinate 125 mg 05/30/24 17:59 05/30/24 18:09 Methylprednisolone Sod Succ 125 Mg/2 Ml Vial IVPUSH 05/30/24 18:00 125 mg ONCE ONE Administration Nicotine 21 mg 05/30/24 18:05 05/30/24 18:17 Nicotine 21 Mg Patch.Td24 TRANSDERMA 05/30/24 18:06 21 mg ONCE ONE Administration Medical Decision Making Medical Decision Making [facility] Narrative: 1800 64 year old female presents w/ cough, wheezing X few days worsening PE- significant wheezing hx and pe concerning for chronic lung disease w/ acute flare. Asthma exacerbation possible vs virall illness. Unlikely PE, ACS, dissection, PNA Plan- labs, imaging, viral test. Will give nebs, mag, solu-medrol Differential Diagnosis Differential Diagnoses: The differential diagnosis associated with the presentation includes (hx and pe concerning for chronic lung disease w/ acute flare. Asthma exacerbation possible vs virall illness. Unlikely PE, ACS, dissection, PNA ) Admission/Observation Consideration of admission/observation: Escalation of care including admission/observation considered Lab Data [facility] Lab Attestation statement: I reviewed the patient's lab results. 05/30/24 18:01 05/30/24 18:01 Labs: Lab Results 05/30/24 05/30/24 Range/Units 18:01 18:36 WBC 13.3 H (4.8-10.8) X10*3/uL RBC 4.55 (4.20-5.50) X10*6/uL Hgb 11.3 L (12.0-16.0) g/dl Hct 38.6 (37.0-47.0) % MCV 84.8 (80.0-98.0) fL MCH 24.8 L (27.0-33.0) pg MCHC 29.3 L (31.0-35.0) g/dl RDW 19.1 H (11.0-16.0) % Plt Count 355 D (160-400) X10*3/uL MPV 9.7 (9.4-12.3) fL Immature Gran % (Auto) 0.6 H (0.0-0.4) % Neut % (Auto) 70.3 (45-73) % Lymph % (Auto) 21.8 (20-40) % Mccormick % (Auto) 6.3 (2-11) % Eos % (Auto) 0.8 (0-4) % Baso % (Auto) 0.2 (0-2) % Lymph # (Auto) 2.9 (1.2-4.9) X10*3/uL Mccormick # (Auto) 0.8 (0.1-1.2) X10*3/uL Eos # (Auto) 0.1 (0.0-0.4) X10*3/uL Baso # (Auto) 0.0 (0.0-0.2) X10*3/uL Abs Immat Gran (auto) 0.08 H (0.00-0.03) X10*3/uL Absolute Neuts (auto) 9.3 H (2.0-8.3) x10*3/uL Absolute Nucleated RBC 0.000 (0.0-0.012) X10*3/uL Nucleated RBC % (auto) 0.0 (0.0-0.2) /100WBC VBG pH 7.46 H (7.32-7.43) VBG pCO2 60 mmHg VBG pO2 74 mmHg VBG HCO3 43 H (22-26) mmol/L VBG O2 Saturation 95.0 % VBG Base Excess 16.5 mmol/L Sodium 146 H (135-145) mmol/L Potassium 3.3 (3.3-5.1) mmol/L Chloride 97 (96-108) mmol/L Carbon Dioxide 37 H (22-29) mmol/L Anion Gap 15 (12-20) BUN 6 L (9-16) mg/dL Creatinine 0.50 (0.5-1.4) mg/dL Estim Creat Clear Calc 79.6 Estimated GFR > 60 Random Glucose 119 H (60-115) mg/dL Calcium 9.9 (8.4-10.2) mg/dL Magnesium 1.3 L* (1.6-2.6) mg/dL Total Bilirubin 0.4 (0.0-1.0) mg/dL Direct Bilirubin 0.2 (0.0-0.5) mg/dL AST 13 (5-31) U/L ALT 12 (0-31) U/L Alkaline Phosphatase 50 (39-117) U/L Troponin I High Sens 6.7 (<3.5-17.0) ng/L Total Protein 6.4 L (6.5-8.0) g/dL Albumin 4.1 (3.5-5.0) g/dL Influenza Type A (PCR) NEGATIVE (Negative) Influenza Type B (PCR) NEGATIVE (Negative) RSV RNA Qual (PCR) NEGATIVE (Negative) SARS-CoV-2 RNA (RT-PCR) NEGATIVE (Negative) Independent Interpretation I performed an independent interpretation of an: EKG (Vent. Rate : 095 BPM Atrial Rate : 095 BPM P-R Int : 118 ms QRS Dur : 078 ms QT Int : 350 ms P-R-T Axes : 076 091 067 degrees QTc Int : 439 ms Normal sinus rhythm Rightward axis Borderline ECG When compared with ECG of 20-MAY-2024 16:42, Premature supraventricular comp) and Plain X-Ray ( XR/XR chest 2V IMPRESSION: Unremarkable examination. Electronically signed by: Ni Coleman MD 05/30/2024 06:28 PM EDT RP ) Radiology Impression Discussion of test interpretation with radiology: I have reviewed the radiologist's reading. External Record Review External record reviewed: Inpatient record, Office record, Outpatient record, Prior outpatient labs, Prior outpatient radiology, Primary care record and Outside ED record Chronic Conditions Patient?s care impacted by: Other (see hpi ) Critical Care Time Critical Care Time Critical Care Time: Yes Total Critical Care Time: 35 Attestation: I attest to this time spent taking care of the patient, obtaining history, physical, reviewing labs, imaging, treatment of patients condition +/- specialist/hospitalist consult Discharge Plan Discharge Clinical Impression: COPD (chronic obstructive pulmonary disease), Shortness of breath, Hypoxia Patient Disposition: Admitted As Inpatient Prescriptions: No Action (DME) lancets [FreeStyle Lancets] 28 gauge misc See Rx Instructions .Route Qty: 100 5RF Rx Instructions: As directed twice a day AC (DME) FreeStyle Lite Strips Strip See Rx Instructions .Route Qty: 100 0RF Rx Instructions: check fasting blood sugar twice a day before meals (DME) FreeStyle Cristian 2 Sensor Kit See Rx Instructions .Route Qty: 6 3RF Rx Instructions: Test blood sugar 4 times per day (DME) FreeStyle Cristian 2 [place] Misc See Rx Instructions .Route Qty: 1 0RF Rx Instructions: test blood sugar 4 times per day losartan 50 mg tablet 50 mg PO DAILY Qty: 90 1RF Januvia 100 mg tablet 100 mg PO DAILY Qty: 90 1RF cholecalciferol (vitamin D3) 50 mcg (2,000 unit) capsule 50 mcg PO DAILY Qty: 90 1RF rosuvastatin 5 mg tablet 5 mg PO DAILY Qty: 90 1RF gabapentin 800 mg tablet 800 mg PO TID 30 Days Qty: 90 6RF amlodipine 5 mg tablet 5 mg PO DAILY Qty: 90 0RF metoclopramide HCl 10 mg tablet 10 mg PO TID Qty: 90 6RF albuterol sulfate 2.5 mg /3 mL (0.083 %) solution for nebulization 2.5 mg inhalation Q6H PRN (Reason: wheezing) psyllium husk [Fiber Laxative (psyllium husk)] 0.52 gram capsule 1.04 g PO BID baclofen 10 mg tablet 10 mg PO TID metformin 1,000 mg tablet 1,000 mg PO BID naproxen 500 mg tablet 500 mg PO BID PRN (Reason: pain) nicotine 21 mg/24 hr Patch 24 Hour 1 patch TRANSDERMAL DAILY lansoprazole 30 mg capsule,delayed release(DR/EC) 30 mg PO DAILY@0630 Linzess 72 mcg capsule 72 mcg PO DAILY prednisone 10 mg tablet See Taper PO DIRECTED Qty: 20 0RF Taper: Prednisone 40 mg daily for 2 Days and 0 Hour 30 mg daily for 2 Days and 0 Hour 20 mg daily for 2 Days and 0 Hour 10 mg daily for 2 Days and 0 Hour Rx Instructions: see taper instructions umeclidinium 62.5 mcg/actuation blister with device 1 inh inhalation DAILY Rx Instructions: Encruse aspirin [Adult Low Dose Aspirin] 81 mg tablet,delayed release (DR/EC) 81 mg PO BEDTIME (DME) blood-glucose meter [FreeStyle Lite Meter] Kit See Rx Instructions .Route Qty: 1 0RF Rx Instructions: As directed twice a day before meals Arnuity Ellipta 200 mcg/actuation blister with device 1 inh inhalation DAILY varenicline 1 mg tablet 1 mg PO BID Qty: 56 2RF ferrous sulfate 325 mg (65 mg iron) tablet,delayed release (DR/EC) 325 mg PO DAILY Qty: 90 1RF Print Language: Venezuelan
[2024-05-30 17:09] VITALS: BP 125/50; PULSE 99; RESP 18; TEMP 36.6; O2SAT 88; BMI 24.7
--- NOTE | 2024-05-30 17:16 | ECG_ITS ---
Test Reason : DYSPNEA Blood Pressure : / mmHG Vent. Rate : 095 BPM Atrial Rate : 095 BPM P-R Int : 118 ms QRS Dur : 078 ms QT Int : 350 ms P-R-T Axes : 076 091 067 degrees QTc Int : 439 ms Artifact in tracing Normal sinus rhythm Rightward axis Borderline ECG When compared with ECG of 20-MAY-2024 16:42, No significant changes seen Referred By: Gena Mcgarry Electronically Signed By:SHANKAR GARCIA
[2024-05-30] MEDS: Albuterol Sulfate 5 MG, Albuterol/Iprat 2.5/0.5MG 3 ML 3 ML INHALE (17:51)
[2024-05-30 17:52] VITALS: PULSE 97; RESP 22; O2SAT 92
[2024-05-30] MEDS: methylPREDNISolone Sod Succ 125 MG/2 ML VIAL IVPUSH (18:09)
[2024-05-30] MEDS: Magnesium Sulfate/H2O 2 GM/50 ML PIGGYBACK IV (18:10)
[2024-05-30] MEDS: Nicotine 21 MG PATCH.TD24 TRANSDERMA (18:17)
[2024-05-30 18:19] LABS: MANUAL DIFF FLAG NO
[2024-05-30 18:22] LABS: Basophils Percent Auto 0.2 % (0-2); Eosinophils Absolute Auto 0.1 X10*3/uL (0.0-0.4); Eosinophils Percent Auto 0.8 % (0-4); Hematocrit 38.6 % (37.0-47.0); Hemoglobin 11.3 g/dl (12.0-16.0); Imm Gran Abs Auto 0.08 X10*3/uL (0.00-0.03); Imm Gran Pct Auto 0.6 % (0.0-0.4); Lymphocytes Absolute Auto 2.9 X10*3/uL (1.2-4.9); Lymphocytes Percent Auto 21.8 % (20-40); Mean Corpuscular HGB Conc 29.3 g/dl (31.0-35.0); Mean Corpuscular Hemoglobin 24.8 pg (27.0-33.0); Mean Corpuscular Volume 84.8 fL (80.0-98.0); Mean Platelet Volume 9.7 fL (9.4-12.3); Monocytes Absolute Auto 0.8 X10*3/uL (0.1-1.2); Monocytes Percent Auto 6.3 % (2-11); Neutrophils Absolute Auto 9.3 x10*3/uL (2.0-8.3); Neutrophils Percent Auto 70.3 % (45-73); Platelet Count 355 X10*3/uL (160-400); Red Blood Count 4.55 X10*6/uL (4.20-5.50); Red Cell Distribution Width 19.1 % (11.0-16.0); White Blood Count 13.3 X10*3/uL (4.8-10.8)
[2024-05-30 18:40] LABS: VBG Base Excess 16.5 mmol/L; VBG HCO3 43 mmol/L (22-26); VBG pCO2 60 mmHg; VBG pH 7.46 (7.32-7.43); VBG pO2 74 mmHg
[2024-05-30 18:41] LABS: Venous Blood Gas Refer to POC result
[2024-05-30 18:42] LABS: Troponin-I High Sensitivity 6.7 ng/L (<3.5-17.0)
[2024-05-30 18:49] LABS: Alanine Aminotransferase 12 U/L (0-31); Albumin Level 4.1 g/dL (3.5-5.0); Alkaline Phosphatase 50 U/L (39-117); Anion Gap 15 (12-20); Aspartate Amino Transferase 13 U/L (5-31); Bilirubin Direct 0.2 mg/dL (0.0-0.5); Bilirubin Total 0.4 mg/dL (0.0-1.0); Blood Urea Nitrogen 6 mg/dL (9-16); Calcium 9.9 mg/dL (8.4-10.2); Carbon Dioxide 37 mmol/L (22-29); Chloride 97 mmol/L (96-108); Creatinine Clr Calc Pharmacy 79.6; Estimated Glomerular Filt Rate > 60; Glucose Random 119 mg/dL (60-115); Magnesium 1.3 mg/dL (1.6-2.6); Potassium 3.3 mmol/L (3.3-5.1); Sodium 146 mmol/L (135-145); Total Protein 6.4 g/dL (6.5-8.0)
[2024-05-30 19:03] LABS: Influenza A PCR NEGATIVE (Negative); Influenza B PCR NEGATIVE (Negative); Resp Syncy Virus RNA Qual PCR NEGATIVE (Negative); SARS COV2 PCR INHOUSE NEGATIVE (Negative)
--- NOTE | 2024-05-30 19:21 | PC.NURSE ---
received report from Katya HERRERA, assume care of pt at this time
[2024-05-30] MEDS: Albuterol Sulfate 7.5 MG, Albuterol Sulfate (0.083%) 2.5 MG 10 MG INHALE (19:32)
--- NOTE | 2024-05-30 21:44 | PC.NURSE ---
At pt's bedside to see, what she wanted to eat. Pt sleeping and will not wake up. Resp with ease, no s/s of acute distres,
--- NOTE | 2024-05-30 21:44 | PHA.MEDREC ---
Addendum entered by Damaso Glover RPh 05/30/24 22:39: Med rec reviewed Original Note: Pharmacy Consult ? Medication Reconciliation Pharmacy has completed the medication reconciliation. Confirmed medications with patient. Patient confirmed she finished her Prednisone taper regimen today. She states she has not started the Varenicline 1mg tab and has it at home. She is not taking Naproxen 500 mg anymore and states shes taking Tylenol Arthritis 1 tab TID as needed for Pain. She took her medications this morning.
--- NOTE | 2024-05-30 21:50 | PM.IMHP ---
History of Present Illness Date of Service: 05/30/24 Attending physician on admission: King Fiore Chief Complaint: Shortness on breath Maria Elena Kingston is a 64 years old past medical history significant for COPD -on home O2 2L/min, type 2 mellitus on metformin, essential hypertension and hyperlipidemia presents to the ED complaining of worsening shortness on breath associated with productive cough, wheezing and chest tightness. She denied any headache, palpitations, dizziness, fevers chills. She denied any acute gastrointestinal or genitourinary symptoms. She is ongoing tobacco smoker. Denies alcohol abuse or illicit drug use. The patient was recently hospitalized with diagnosis of acute on chronic hypoxic respiratory failure secondary to acute exacerbation of COPD. In the ED today, she was found to have low O2 sats 88% on 2 L/min nasal cannula. She is not requiring 5 L/min. Blood workup was remarkable for leukocytosis of 13.3. Hemoglobin is 11.3 which is at baseline. Platelets are normal. Venous blood gas showed no respiratory acidosis. There is small hypernatremia of 146. CO2 is 37. Magnesium is 1.3. Renal function is normal and LFTs as well. Troponin is 6.7. ECG showed normal sinus rhythm with a heart rate of 95 beats per minutes without obvious ischemic changes. CXR is unremarkable. [facility] Medical History Hypochromic anemia COPD (chronic obstructive pulmonary disease) Type 2 diabetes mellitus without complication, with no history of insulin use Heavy cigarette smoker Acute on chronic hypoxic respiratory failure Diabetic gastroparesis Chronic lung disease COPD (chronic obstructive pulmonary disease) Mixed dyslipidemia Essential hypertension GERD (gastroesophageal reflux disease) Gastroparesis Diastolic CHF with preserved left ventricular function, NYHA class 2 Chronic hypercapnic respiratory failure Type 2 diabetes mellitus with other diabetic kidney complication Type 2 diabetes mellitus without complication, with no history of insulin use Smoker unmotivated to quit Postlaminectomy syndrome of cervical region Seasonal allergic rhinitis Degenerative disc disease, cervical Postmenopause Dyslipidemia Family History Mother Diabetes Sister Diabetes Mental health disorder Brother Diabetes Father HTN (hypertension) Surgical History H/O cervical discectomy History of esophagogastroduodenoscopy (EGD) Hx of colonoscopy Social History Household Members: Significant Other Housing: Other Housing Other:: mobile home. Do you presently have visiting nurse or other home services: No (home O2) Alcohol intake: former Comment: Commode/ Hi Flow O2 Patient Tobacco Use Status: Current everyday Tobacco user Tobacco use type: Cigarette Cigarette Packs Per Day: 1 Cigarettes Per Day: 20.0 Years Smoked: 50 Smoked in Last 30 Days: Yes e-Cigarette/Vaping Use: Never Used Second Hand Smoke Exposure: Yes Use of substances other than those prescribed or required for medical reasons: No Advance Directives: Yes Advance Directives on File: Yes Advance Directives Date on File: 08/02/23 Patient : No service: No Current occupational status: unemployed Cognitive needs: No Hearing needs: No Vision needs: Yes Meds Allergies Allergy/AdvReac Type Severity Reaction Status Date / Time amoxicillin [AMOXICILLIN] Allergy Intermediate RASH Verified 05/30/24 17:11 Active Medications: Current Medications Acetaminophen (Acetaminophen 325 Mg Tablet) 975 mg PO Q6H PRN PRN Reason: Pain, Mild (Pain Scale 1-3), fever or headache Albuterol Sulfate (Albuterol Sulfate (0.083%) 2.5 Mg/3 Ml Vial.Neb) 2.5 mg INHALE Q2H PRN PRN Reason: Shortness of Breath/Wheezing Albuterol/Ipratropium (Albuterol/Iprat 2.5/0.5mg 3 Ml Ampul.Neb) 3 ml INHALE RQ4H WHILE AWAKE [facility] Amlodipine Besylate (Amlodipine Besylate 5 Mg Tablet) 5 mg PO DAILY [facility]; Protocol Aspirin (Aspirin Enteric Coated 81 Mg Tablet.) 81 mg PO BEDTIME [facility] Baclofen (Baclofen 10 Mg Tablet) 10 mg PO TID [facility] Enoxaparin Sodium (Enoxaparin Sodium 40 Mg/0.4 Ml Syringe) 40 mg SUBCUT Q24H [facility] Gabapentin (Gabapentin 400 Mg Capsule) 800 mg PO TID [facility] Azithromycin 500 mg/ Sodium (Chloride) 250 mls @ 125 mls/hr IV DAILY ONE Stop: 05/30/24 23:33 Losartan Potassium (Losartan Potassium 50 Mg Tablet) 50 mg PO DAILY [facility]; Protocol Melatonin (Melatonin 3 Mg Tablet) 6 mg PO BEDTIME PRN PRN Reason: Insomnia Methylprednisolone Sodium Succinate (Methylprednisolone Sod Succ 40 Mg/Ml Vial) 40 mg IVPUSH BID [facility] Metoclopramide HCl (Metoclopramide Hcl 10 Mg Tablet) 10 mg PO TID [facility] Nicotine (Nicotine 21 Mg Patch.Td24) mg TRANSDERMA DAILY [facility] Non-Formulary Medication (Ferrous Sulfate) 325 mg PO DAILY [facility] Non-Formulary Medication (Lansoprazole) 30 mg PO DAILY@0630 [facility] Non-Formulary Medication (Linaclotide [Linzess]) 72 mcg PO DAILY [facility] Non-Formulary Medication (Psyllium Husk [Fiber Laxative (Psyllium Husk)]) 1.04 gm PO BID [facility] Non-Formulary Medication (Rosuvastatin) 5 mg PO DAILY [facility] Sitagliptin Phosphate (Sitagliptin Phosphate 100 Mg Tablet) 100 mg PO DAILY [facility] Sodium Chloride (0.9 % Sodium Chloride Flush 3 Ml Syringe) 3 ml IVFLUSH QSHIFT [facility] Vitamin D (Cholecalciferol (Vitamin D3) 25 Mcg Tablet) 50 mcg PO DAILY [facility] Home Medications ?Medication ?Instructions ?Recorded ?Confirmed ?Last Taken ?Type aspirin 81 mg tablet,delayed 81 mg PO BEDTIME 01/10/21 05/30/24 05/29/24 History release (Adult Low Dose Aspirin) umeclidinium 62.5 mcg/actuation 1 inh inhalation DAILY 03/31/21 05/30/24 05/30/24 History blister powder for inhalation albuterol sulfate 2.5 mg/3 mL 2.5 mg inhalation Q6H PRN wheezing 08/02/23 05/30/24 05/30/24 History (0.083 %) solution for nebulization psyllium husk 0.52 gram capsule 1.04 g PO BID Constipation 02/28/24 05/30/24 05/30/24 History (Fiber Laxative (psyllium husk)) baclofen 10 mg tablet 10 mg PO TID 05/06/24 05/30/24 05/30/24 History metformin 1,000 mg tablet 1,000 mg PO BID 05/06/24 05/30/24 05/30/24 History lansoprazole 30 mg capsule,delayed 30 mg PO DAILY@0630 05/21/24 05/30/24 05/30/24 History release linaclotide 72 mcg capsule 72 mcg PO DAILY 05/21/24 05/30/24 05/30/24 History (Linzess) nicotine 21 mg/24 hr daily 1 patch transdermal DAILY 05/21/24 05/30/24 05/30/24 History transdermal patch acetaminophen 650 mg 650 mg PO TID PRN Pain 05/30/24 05/30/24 Unknown History tablet,extended release ferrous sulfate 324 mg (65 mg 324 mg PO DAILY 05/30/24 05/30/24 05/30/24 History iron) tablet,delayed release Physical Exam Vital Signs and Narrative: Vital Signs: Last Vital Signs Temp 97.9 F 05/30/24 17:09 Pulse 97 05/30/24 17:52 Resp 22 H 05/30/24 17:52 BP 125/50 L 05/30/24 17:09 Pulse Ox 88 L 05/30/24 17:09 O2 Del Method Nasal Cannula 05/30/24 17:09 Oxygen Flow Rate 2 05/30/24 17:09 BMI result Body Mass Index 24.7 Constitutional - Awake and Alert, No apparent distress. On nasal cannula. HEENT - PERRL, EOMI Heart - Tachycardia, normal rate. Lungs - Normal lung expansion, Normal respiratory effort, No respiratory distress. Bilateral expiratory wheezes. No crackles. No rhonchi. Abdomen - NT / ND; +BS; No rebound or guarding Extremities - no calf tenderness bilaterally, no swelling Musculoskeletal - Normal inspection, normal ROM Skin - Warm/Dry Neurological - Alert & oriented x3. No focal weakness grossly noted. Normal speech. Psychological - Appropriate affect Results Labs 05/30/24 18:01 05/30/24 18:01 Labs: Laboratory Results - last 24 hr 05/30/24 05/30/24 18:01 18:36 MCV 84.8 MCH 24.8 L MCHC 29.3 L RDW 19.1 H Plt Count 355 D MPV 9.7 Immature Gran % (Auto) 0.6 H Neut % (Auto) 70.3 Lymph % (Auto) 21.8 [place] % (Auto) 6.3 Eos % (Auto) 0.8 Baso % (Auto) 0.2 Lymph # (Auto) 2.9 [place] # (Auto) 0.8 Eos # (Auto) 0.1 Baso # (Auto) 0.0 Abs Immat Gran (auto) 0.08 H Absolute Neuts (auto) 9.3 H Absolute Nucleated RBC 0.000 Nucleated RBC % (auto) 0.0 VBG pH 7.46 H VBG pCO2 60 VBG pO2 74 VBG HCO3 43 H VBG O2 Saturation 95.0 VBG Base Excess 16.5 Anion Gap 15 Estim Creat Clear Calc 79.6 Estimated GFR > 60 Random Glucose 119 H Calcium 9.9 Magnesium 1.3 L* Total Bilirubin 0.4 Direct Bilirubin 0.2 AST 13 ALT 12 Alkaline Phosphatase 50 Troponin I High Sens 6.7 Total Protein 6.4 L Albumin 4.1 Influenza Type A (PCR) NEGATIVE Influenza Type B (PCR) NEGATIVE RSV RNA Qual (PCR) NEGATIVE SARS-CoV-2 RNA (RT-PCR) NEGATIVE Imaging Radiologist's Impressions: Impressions Chest X-Ray 05/30/24 17:16 IMPRESSION: Unremarkable examination. Electronically signed by: Ni Coleman MD 05/30/2024 06:28 PM EDT RP Assessment and Plan (1) Acute exacerbation of chronic obstructive pulmonary disease: Status: Resolved Plan Maria Elena Kingston is a 64 y/o woman admitted with: Acute on chronic hypoxic respiratory failure secondary to acute exacerbation of COPD. Admit to hospitalist service. Telemetry. Supplemental O2 to keep O2 sats > 90%. Continue bronchodilator therapy, IV steroids IV antibiotics. Type 2 diabetes mellitus. BG checks before meals at bedtime. Hold metformin. Continue sitagliptin. Insulin sliding scale. Diabetic diet. Essential hypertension. Continue amlodipine and losartan. Hyperlipidemia. Continue statin. Ongoing tobacco smoking. Tobacco cessation education. Nicotine patch. GERD. Continue PPI. DVT prophylaxis: Lovenox Code status: Full Patient will need hospitalization for last midnights for acute on chronic hypoxic respiratory failure secondary to acute exacerbation of COPD treatment with supplemental oxygen, bronchodilator therapy, IV antibiotics and steroids. Quality Stroke Does the patient have a stroke diagnosis?: No VTE Prior VTE?: No VTE Risk Level:: Medical - moderate - high VTE Device Contraindication: Treatment Not Indicated VTE Drug Contraindication: N/A - Med Ordered
[2024-05-30] MEDS: Azithromycin 500 MG in 0.9 % Sodium Chloride 250 ML 125 MG IV (22:50)
[2024-05-31] VITALS (8 sets, daily range): BP systolic 131–145; BP diastolic 50–65; PULSE 84–104; RESP 16–20; TEMP 36.1–36.7; O2SAT 90–98
[2024-05-31 05:07] LABS: Basophils Percent Auto 0.3 % (0-2); Eosinophils Percent Auto 0.3 % (0-4); Hematocrit 36.9 % (37.0-47.0); Imm Gran Pct Auto 0.9 % (0.0-0.4); Lymphocytes Absolute Auto 0.5 X10*3/uL (1.2-4.9); Lymphocytes Percent Auto 4.1 % (20-40); MANUAL DIFF FLAG SCAN; Mean Corpuscular HGB Conc 29.8 g/dl (31.0-35.0); Mean Corpuscular Hemoglobin 24.9 pg (27.0-33.0); Mean Corpuscular Volume 83.7 fL (80.0-98.0); Mean Platelet Volume 9.7 fL (9.4-12.3); Monocytes Absolute Auto 0.2 X10*3/uL (0.1-1.2); Monocytes Percent Auto 1.7 % (2-11); Neutrophils Absolute Auto 10.9 x10*3/uL (2.0-8.3); Neutrophils Percent Auto 92.7 % (45-73); Platelet Count 315 X10*3/uL (160-400); Red Blood Count 4.41 X10*6/uL (4.20-5.50); Red Cell Distribution Width 19.3 % (11.0-16.0); SCAN SMEAR FLAG 1; White Blood Count 11.8 X10*3/uL (4.8-10.8)
[2024-05-31 05:26] LABS: Anion Gap 16 (12-20); Blood Urea Nitrogen 8 mg/dL (9-16); Calcium 9.3 mg/dL (8.4-10.2); Carbon Dioxide 34 mmol/L (22-29); Chloride 100 mmol/L (96-108); Estimated Glomerular Filt Rate > 60; Glucose Random 189 mg/dL (60-115); Magnesium 1.9 mg/dL (1.6-2.6); Potassium 3.9 mmol/L (3.3-5.1); Sodium 146 mmol/L (135-145)
[2024-05-31 05:31] LABS: SLIDE REVIEW VERIFIED
[2024-05-31] MEDS: Omeprazole 20 MG CAPSULE.DR PO (06:31)
--- NOTE | 2024-05-31 07:15 | PC.NURSE ---
report to Padma HERRERA
[2024-05-31] MEDS: Ferrous Sulfate 324 MG TABLET.DR PO (08:32)
[2024-05-31] MEDS: Cholecalciferol (Vitamin D3) 25 MCG TABLET 50 MCG PO (08:32)
[2024-05-31] MEDS: Baclofen 10 MG TABLET PO ×3 (08:32→22:21)
[2024-05-31] MEDS: Metoclopramide HCl 10 MG TABLET PO ×3 (08:32→22:21)
[2024-05-31] MEDS: Losartan Potassium 50 MG TABLET PO (08:32)
[2024-05-31] MEDS: Atorvastatin Calcium 20 MG TABLET PO (08:32)
[2024-05-31] MEDS: methylPREDNISolone Sod Succ 40 MG/ML VIAL IVPUSH ×2 (08:32→22:21)
[2024-05-31] MEDS: SITagliptin Phosphate 100 MG TABLET PO (08:32)
[2024-05-31] MEDS: amLODIPine Besylate 5 MG TABLET PO (08:32)
[2024-05-31] MEDS: Nicotine 14 MG PATCH.TD24 TRANSDERMA (08:33)
[2024-05-31] MEDS: Loratadine 10 MG TABLET PO (08:33)
[2024-05-31] MEDS: Magnesium Oxide 400 MG TABLET PO ×2 (08:33→17:44)
[2024-05-31 13:13] LABS: Glucose, Whole Blood 220 mg/dL (60-115)
[2024-05-31] MEDS: Gabapentin 400 MG CAPSULE 800 MG PO ×2 (13:16→22:21)
[2024-05-31] MEDS: Insulin Lispro 100 UNIT/ML 3 ML VIAL SUBCUT ×2 (13:18→17:59)
--- NOTE | 2024-05-31 14:53 | MHC.CM.PN ---
Pt lives with her boyfriend in a trailer, her boyfriend will transport her home. HCP on file and verified. Pt has home O2 through [facility], and [facility] services. PCP: Dr. Magalie Nicolas
--- NOTE | 2024-05-31 14:54 | PC.NURSE ---
Pt ambulated to bathroom independent. Repositioned in bed, sitting upright eating lunch, call burger within reach, all needs met at this time.
[2024-05-31 15:31] LABS: Adenovirus PCR Not Detected (Not Detect.); Bordetella parapertussis PCR Not Detected (Not Detect.); Bordetella pertussis PCR Not Detected (Not Detect.); Chlamydia pneumoniae PCR Not Detected (Not Detect.); Coronavirus 229E PCR Not Detected (Not Detect.); Coronavirus HKU1 PCR Not Detected (Not Detect.); Coronavirus NL63 PCR Not Detected (Not Detect.); Coronavirus OC43 PCR Not Detected (Not Detect.); Human metapneumovirus PCR Not Detected (Not Detect.); Influenza A PCR Not Detected (Not Detect.); Influenza B PCR Not Detected (Not Detect.); Mycoplasma pneumoniae PCR Not Detected (Not Detect.); Parainfluenza 1 PCR Not Detected (Not Detect.); Parainfluenza 2 PCR Not Detected (Not Detect.); Parainfluenza 3 PCR Not Detected (Not Detect.); Parainfluenza 4 PCR Not Detected (Not Detect.); RSV PCR Not Detected (Not Detect.); Rhino/Enterovirus PCR Not Detected (Not Detect.)
[2024-05-31 16:01] LABS: SARS-CoV-2 PCR Not Detected (Not Detect.)
--- NOTE | 2024-05-31 16:20 | HO.PM.IMPN ---
Subjective Subjective Date of Service: 05/31/24 Interval History: copd execerebation Review of Systems sob seems similar has cough Physical Exam Vital Signs: Vital Signs: Last Vital Signs Temp 97.5 F 05/31/24 05:22 Pulse 97 05/31/24 14:03 Resp 18 05/31/24 14:03 BP 145/57 H 05/31/24 14:03 Pulse Ox 96 05/31/24 14:03 O2 Del Method Nasal Cannula 05/31/24 14:03 O2 Flow Rate 2 05/31/24 14:03 Oxygen Flow Rate 2 05/30/24 17:09 BMI result Body Mass Index 24.7 Appearance: Alert.? Oriented X3.? cvs: [id number], [id number] , no murmur res: air entry dimished , has b/l exp wheezing abd: no rebound or guarding ,nt, bs present. ext pulses present , no cyanosis. neuro: axo3 , nonfocal. Objective Data Active Medications Acetaminophen (Acetaminophen 325 Mg Tablet) 975 mg PO Q6H PRN PRN Reason: Pain, Mild (Pain Scale 1-3), fever or headache Albuterol Sulfate (Albuterol Sulfate (0.083%) 2.5 Mg/3 Ml Vial.Neb) 2.5 mg INHALE Q2H PRN PRN Reason: Shortness of Breath/Wheezing Albuterol/Ipratropium (Albuterol/Iprat 2.5/0.5mg 3 Ml Ampul.Neb) 3 ml INHALE RQ4H WHILE AWAKE [facility] Last Admin: 05/31/24 11:08 Dose: Not Given Documented By: DEYA Non-Admin Reason: Patient Refused Amlodipine Besylate (Amlodipine Besylate 5 Mg Tablet) 5 mg PO DAILY [facility]; Protocol Last Admin: 05/31/24 08:32 Dose: 5 mg Documented By: CASIE Aspirin (Aspirin Enteric Coated 81 Mg Tablet.) 81 mg PO BEDTIME [facility] Atorvastatin Calcium (Atorvastatin Calcium 20 Mg Tablet) 20 mg PO DAILY [facility] Last Admin: 05/31/24 08:32 Dose: 20 mg Documented By: CASIE Baclofen (Baclofen 10 Mg Tablet) 10 mg PO TID [facility] Last Admin: 05/31/24 15:28 Dose: 10 mg Documented By: CASIE Enoxaparin Sodium (Enoxaparin Sodium 40 Mg/0.4 Ml Syringe) 40 mg SUBCUT Q24H [facility] Ferrous Sulfate (Ferrous Sulfate 324 Mg Tablet.) 324 mg PO DAILY [facility] Last Admin: 05/31/24 08:32 Dose: 324 mg Documented By: CASIE Gabapentin (Gabapentin 400 Mg Capsule) 800 mg PO TID [facility] Last Admin: 05/31/24 15:44 Dose: Not Given Documented By: CASIE Non-Admin Reason: See Note Glucose (Glucose Gel 15 Gm Gel..Gram.) 15 gm PO Q15M PRN; Protocol PRN Reason: per Hypoglycemia Standing Ord. Azithromycin 500 mg/ Sodium (Chloride) 250 mls @ 125 mls/hr IV Q24H [facility] Last Infusion: 05/31/24 01:25 Dose: Infused Documented By: JEFFREY Dextrose (D10) 250 mls @ 750 mls/hr IV Q15M PRN; Protocol PRN Reason: per Hypoglycemia Standing Ord. Insulin Human Lispro (Insulin Lispro 100 Unit/Ml 3 Ml Vial) 0 unit SUBCUT QIDACHS [facility]; Protocol Last Admin: 05/31/24 13:18 Dose: 4 unit Documented By: ERICKA Loratadine (Loratadine 10 Mg Tablet) 10 mg PO DAILY [facility] Last Admin: 05/31/24 08:33 Dose: 10 mg Documented By: CASIE Losartan Potassium (Losartan Potassium 50 Mg Tablet) 50 mg PO DAILY [facility]; Protocol Last Admin: 05/31/24 08:32 Dose: 50 mg Documented By: CASIE Magnesium Oxide (Magnesium Oxide 400 Mg Tablet) 400 mg PO BIDPC [facility] Last Admin: 05/31/24 08:33 Dose: 400 mg Documented By: CASIE Melatonin (Melatonin 3 Mg Tablet) 6 mg PO BEDTIME PRN PRN Reason: Insomnia Methylprednisolone Sodium Succinate (Methylprednisolone Sod Succ 40 Mg/Ml Vial) 40 mg IVPUSH BID [facility] Last Admin: 05/31/24 08:32 Dose: 40 mg Documented By: CASIE Metoclopramide HCl (Metoclopramide Hcl 10 Mg Tablet) 10 mg PO TID [facility] Last Admin: 05/31/24 15:28 Dose: 10 mg Documented By: CASIE Nicotine (Nicotine 14 Mg Patch.Td24) 14 mg TRANSDERMA DAILY [facility] Last Admin: 05/31/24 08:33 Dose: 14 mg Documented By: CASIE Non-Formulary Medication ( Linaclotide [Linzess ] 145 Mcg Capsule) 145 mcg PO DAILY [facility] Omeprazole (Omeprazole 20 Mg Capsule.) 20 mg PO DAILY@0630 [facility] Last Admin: 05/31/24 06:31 Dose: 20 mg Documented By: JEFFREY Psyllium Hydrophilic Mucilloid (Psyllium Seed 3.7 Gm Packet) 3.7 gm PO BID [facility] Last Admin: 05/31/24 13:17 Dose: Not Given Documented By: ERICKA Non-Admin Reason: Patient Refused Sitagliptin Phosphate (Sitagliptin Phosphate 100 Mg Tablet) 100 mg PO DAILY [facility] Last Admin: 05/31/24 08:32 Dose: 100 mg Documented By: CASIE Sodium Chloride (0.9 % Sodium Chloride Flush 3 Ml Syringe) 3 ml IVFLUSH QSHIFT [facility] Last Admin: 05/31/24 13:03 Dose: Not Given Documented By: ERICKA Non-Admin Reason: IV Running Vitamin D (Cholecalciferol (Vitamin D3) 25 Mcg Tablet) 50 mcg PO DAILY [facility] Last Admin: 05/31/24 08:32 Dose: 50 mcg Documented By: CASIE Labs 05/31/24 05:00 05/31/24 05:00 Labs: Laboratory Results - last 24 hr 05/30/24 05/30/24 05/31/24 18:01 18:36 05:00 MCV 84.8 83.7 MCH 24.8 L 24.9 L MCHC 29.3 L 29.8 L RDW 19.1 H 19.3 H Plt Count 355 D 315 MPV 9.7 9.7 Immature Gran % (Auto) 0.6 H 0.9 H Neut % (Auto) 70.3 92.7 H Lymph % (Auto) 21.8 4.1 L [place] % (Auto) 6.3 1.7 L Eos % (Auto) 0.8 0.3 Baso % (Auto) 0.2 0.3 Lymph # (Auto) 2.9 0.5 L [place] # (Auto) 0.8 0.2 Eos # (Auto) 0.1 0.0 Baso # (Auto) 0.0 0.0 Abs Immat Gran (auto) 0.08 H 0.10 H Absolute Neuts (auto) 9.3 H 10.9 H Absolute Nucleated RBC 0.000 0.000 Nucleated RBC % (auto) 0.0 0.0 Smear Tech's Comments VERIFIED VBG pH 7.46 H VBG pCO2 60 VBG pO2 74 VBG HCO3 43 H VBG O2 Saturation 95.0 VBG Base Excess 16.5 Anion Gap 15 16 Estim Creat Clear Calc 79.6 83.0 Estimated GFR > 60 > 60 POC Glucose Random Glucose 119 H 189 H Calcium 9.9 9.3 D Magnesium 1.3 L* 1.9 Total Bilirubin 0.4 Direct Bilirubin 0.2 AST 13 ALT 12 Alkaline Phosphatase 50 Troponin I High Sens 6.7 Total Protein 6.4 L Albumin 4.1 Respiratory Panel [facility] Adenovirus (Rapid PCR) B.pert (TEM-PCR) B.parapertussis DNA PCR C. pneumoniae DNA (PCR) Coronavirus OC43 (PCR) Coronavirus HKU1 (PCR) Coronavirus 229E (PCR) Coronavirus NL63 (PCR) Human Metapneumovir PCR Influenza A (RT-PCR) Influenza Type A (PCR) NEGATIVE Influenza B (RT-PCR) Influenza Type B (PCR) NEGATIVE M. pneumoniae (PCR) Parainfluenza 1 (PCR) Parainfluenza 2 (PCR) Parainfluenza 3 (PCR) Parainfluenza 4 (PCR) RSV (PCR) RSV RNA Qual (PCR) NEGATIVE Entero/Rhino (PCR) SARS-CoV-2 RNA (RT-PCR) NEGATIVE 05/31/24 05/31/24 13:08 14:13 MCV MCH MCHC RDW Plt Count MPV Immature Gran % (Auto) Neut % (Auto) Lymph % (Auto) [place] % (Auto) Eos % (Auto) Baso % (Auto) Lymph # (Auto) [place] # (Auto) Eos # (Auto) Baso # (Auto) Abs Immat Gran (auto) Absolute Neuts (auto) Absolute Nucleated RBC Nucleated RBC % (auto) Smear Tech's Comments VBG pH VBG pCO2 VBG pO2 VBG HCO3 VBG O2 Saturation VBG Base Excess Anion Gap Estim Creat Clear Calc Estimated GFR POC Glucose 220 H Random Glucose Calcium Magnesium Total Bilirubin Direct Bilirubin AST ALT Alkaline Phosphatase Troponin I High Sens Total Protein Albumin Respiratory Panel [facility] See Note Adenovirus (Rapid PCR) Not Detected B.pert (TEM-PCR) Not Detected B.parapertussis DNA PCR Not Detected C. pneumoniae DNA (PCR) Not Detected Coronavirus OC43 (PCR) Not Detected Coronavirus HKU1 (PCR) Not Detected Coronavirus 229E (PCR) Not Detected Coronavirus NL63 (PCR) Not Detected Human Metapneumovir PCR Not Detected Influenza A (RT-PCR) Not Detected Influenza Type A (PCR) Influenza B (RT-PCR) Not Detected Influenza Type B (PCR) M. pneumoniae (PCR) Not Detected Parainfluenza 1 (PCR) Not Detected Parainfluenza 2 (PCR) Not Detected Parainfluenza 3 (PCR) Not Detected Parainfluenza 4 (PCR) Not Detected RSV (PCR) Not Detected RSV RNA Qual (PCR) Entero/Rhino (PCR) Not Detected SARS-CoV-2 RNA (RT-PCR) Not Detected Assessment and Plan (1) Acute exacerbation of chronic obstructive pulmonary disease: Status: Acute Assessment and Plan: 64 y/o woman admitted with: Acute on chronic hypoxic respiratory failure secondary to acute exacerbation of COPD. Continue bronchodilator therapy, IV steroids IV antibiotics. Supplemental O2 to keep O2 sats 88- 90%. Type 2 diabetes mellitus with hyperglycemia (possible sec to steriods). BG checks before meals at bedtime. Hold metformin. Continue sitagliptin. Insulin sliding scale. Diabetic diet. Essential hypertension. Continue amlodipine and losartan. Hyperlipidemia. Continue statin. Ongoing tobacco smoking. Tobacco cessation education. Nicotine patch. GERD. Continue PPI. DVT prophylaxis: Lovenox. ongoing hospitalization need for acute on chronic hypoxic respiratory failure secondary to acute exacerbation of COPD treatment with supplemental oxygen, bronchodilator therapy, IV antibiotics and steroids. Quality Stroke Does the patient have a stroke diagnosis?: No VTE Prior VTE?: No VTE Risk Level:: Medical - moderate - high VTE Device Contraindication: Treatment Not Indicated VTE Drug Contraindication: N/A - Med Ordered
[2024-05-31] MEDS: Albuterol/Iprat 2.5/0.5MG 3 ML AMPUL.NEB INHALE (16:27)
[2024-05-31] MEDS: 0.9 % Sodium Chloride Flush 3 ML SYRINGE IVFLUSH ×2 (17:44→22:25)
[2024-05-31 17:47] LABS: Glucose, Whole Blood 170 mg/dL (60-115)
[2024-05-31] MEDS: Aspirin Enteric Coated 81 MG TABLET.DR PO (22:21)
[2024-05-31] MEDS: Enoxaparin Sodium 40 MG/0.4 ML SYRINGE SUBCUT (22:23)
[2024-05-31 22:46] LABS: Glucose, Whole Blood 203 mg/dL (60-115)
[2024-06-01] MEDS: Azithromycin 500 MG in 0.9 % Sodium Chloride 250 ML 125 MG IV
[2024-06-01] MEDS: Insulin Lispro 100 UNIT/ML 3 ML VIAL SUBCUT ×2 (00:21→08:30)
[2024-06-01 03:27] VITALS: BP 143/68; PULSE 79; RESP 18; TEMP 36.2; O2SAT 96
[2024-06-01] MEDS: Omeprazole 20 MG CAPSULE.DR PO (06:22)
[2024-06-01 07:38] LABS: Glucose, Whole Blood 164 mg/dL (60-115)
[2024-06-01 08:00] VITALS: BP 118/72; PULSE 98; RESP 18; TEMP 36.2; O2SAT 97
[2024-06-01] MEDS: Cholecalciferol (Vitamin D3) 25 MCG TABLET 50 MCG PO (08:34)
[2024-06-01] MEDS: Atorvastatin Calcium 20 MG TABLET PO (08:35)
[2024-06-01] MEDS: Ferrous Sulfate 324 MG TABLET.DR PO (08:35)
[2024-06-01] MEDS: Magnesium Oxide 400 MG TABLET PO (08:35)
[2024-06-01] MEDS: Baclofen 10 MG TABLET PO (08:35)
[2024-06-01] MEDS: SITagliptin Phosphate 100 MG TABLET PO (08:35)
[2024-06-01] MEDS: amLODIPine Besylate 5 MG TABLET PO (08:35)
[2024-06-01] MEDS: Metoclopramide HCl 10 MG TABLET PO (08:35)
[2024-06-01] MEDS: Losartan Potassium 50 MG TABLET PO (08:35)
[2024-06-01] MEDS: methylPREDNISolone Sod Succ 40 MG/ML VIAL IVPUSH (08:36)
[2024-06-01] MEDS: Nicotine 14 MG PATCH.TD24 TRANSDERMA (08:36)
[2024-06-01] MEDS: Loratadine 10 MG TABLET PO (08:36)
[2024-06-01] MEDS: Gabapentin 400 MG CAPSULE 800 MG PO (08:36)
[2024-06-01] MEDS: 0.9 % Sodium Chloride Flush 3 ML SYRINGE IVFLUSH (08:37)
[2024-06-01 09:24] LABS: Sodium 142 mmol/L (135-145)
--- NOTE | 2024-06-01 10:38 | P.DS_ITS ---
DS: Providers Provider Date of Service: 06/01/24 Date of admission: 05/30/24 21:29 Date of discharge: 06/01/24 Primary care physician: Magalie Nicolas MD Attending physician on discharge: Grisel Erickson Discharging clinician: Grisel Erickson DS: Diagnosis Discharge Diagnosis (1) Acute exacerbation of chronic obstructive pulmonary disease: Status: Acute DS: Summary Hospital Course Hospital Course: HPI:64 years old past medical history significant for COPD -on home O2 2L/min, type 2 mellitus on metformin, essential hypertension and hyperlipidemia presents to the ED complaining of worsening shortness on breath associated with productive cough, wheezing and chest tightness. She denied any headache, palpitations, dizziness, fevers chills. She denied any acute gastrointestinal or genitourinary symptoms. She is ongoing tobacco smoker. Denies alcohol abuse or illicit drug use. The patient was recently hospitalized with diagnosis of acute on chronic hypoxic respiratory failure secondary to acute exacerbation of COPD. In the ED today, she was found to have low O2 sats 88% on 2 L/min nasal cannula. She is not requiring 5 L/min. Blood workup was remarkable for leukocytosis of 13.3. Hemoglobin is 11.3 which is at baseline. Platelets are normal. Venous blood gas showed no respiratory acidosis. There is small hypernatremia of 146. CO2 is 37. Magnesium is 1.3. Renal function is normal and LFTs as well. Troponin is 6.7. ECG showed normal sinus rhythm with a heart rate of 95 beats per minutes without obvious ischemic changes. CXR is unremarkable. hospital course: 64 y/o F with Acute on chronic hypoxic respiratory failure secondary to acute exacerbation of COPD(on home 2 liter oxygen)-started nebs,steriods ,azitrhomycin -seems improved significantly ,says now at her baseline , walking fine ,sats on 97% on 2 liter. hypomagnesemia -repleted and resolved ,given magnesium 400 mg po dialy for 1 week. patient will be going home prednisone 40 mg po daily and azithromycin 250 mg (both for 4 days). plan: strongly advised to cut down and quit smoking. complete prednisone 40 mg po daily and azithromycin 250 mg (both for 4 days). please check bmp ,magnesium levels outpatient,f/u with pcp. Above management discussed with the patient in detail length she understand and in agreement with the above plan, time spent 40 minutes and 50% time spent on counseling. Time Attestation Total time managing care of this patient today: 40 mintues. Discharge Coordination Time (in mins): 40 min Quality: Safe Use of Opioids Does Pt have an Active Cancer Diagnosis on the Problem List?: No Quality: Stroke Does the patient have a stroke diagnosis?: No Physical Exam Vital Signs: Vital Signs: Last Vital Signs Temp 97.1 F 06/01/24 08:00 Pulse 98 06/01/24 08:00 Resp 18 06/01/24 08:00 BP 118/72 06/01/24 08:00 Pulse Ox 97 06/01/24 08:00 O2 Del Method Nasal Cannula 06/01/24 08:00 O2 Flow Rate 2 06/01/24 08:00 Oxygen Flow Rate 2 05/30/24 17:09 BMI result Body Mass Index 24.7 Appearance: Alert.? Oriented X3.? cvs: rrr, [id number] , no murmur res: air entry fair , no rales or wheezing abd: no rebound or guarding ,nt, bs present. ext pulses present , no cyanosis. neuro: axo3 , nonfocal. DS: Data Data Completed and Pending Labs on day of discharge: Laboratory Results - last 24 hr 05/31/24 05/31/24 05/31/24 13:08 14:13 17:41 Sodium POC Glucose 220 H 170 H Respiratory Panel Gonsalez See Note Adenovirus (Rapid PCR) Not Detected B.pert (TEM-PCR) Not Detected B.parapertussis DNA PCR Not Detected C. pneumoniae DNA (PCR) Not Detected Coronavirus OC43 (PCR) Not Detected Coronavirus HKU1 (PCR) Not Detected Coronavirus 229E (PCR) Not Detected Coronavirus NL63 (PCR) Not Detected Human Metapneumovir PCR Not Detected Influenza A (RT-PCR) Not Detected Influenza B (RT-PCR) Not Detected M. pneumoniae (PCR) Not Detected Parainfluenza 1 (PCR) Not Detected Parainfluenza 2 (PCR) Not Detected Parainfluenza 3 (PCR) Not Detected Parainfluenza 4 (PCR) Not Detected RSV (PCR) Not Detected Entero/Rhino (PCR) Not Detected SARS-CoV-2 RNA (RT-PCR) Not Detected 05/31/24 06/01/24 06/01/24 22:42 07:30 08:50 Sodium 142 POC Glucose 203 H 164 H Respiratory Panel Gonsalez Adenovirus (Rapid PCR) B.pert (TEM-PCR) B.parapertussis DNA PCR C. pneumoniae DNA (PCR) Coronavirus OC43 (PCR) Coronavirus HKU1 (PCR) Coronavirus 229E (PCR) Coronavirus NL63 (PCR) Human Metapneumovir PCR Influenza A (RT-PCR) Influenza B (RT-PCR) M. pneumoniae (PCR) Parainfluenza 1 (PCR) Parainfluenza 2 (PCR) Parainfluenza 3 (PCR) Parainfluenza 4 (PCR) RSV (PCR) Entero/Rhino (PCR) SARS-CoV-2 RNA (RT-PCR) Imaging Chest x-ray: Radiologist's impression: ITS Impressions Chest X-Ray 05/30/24 17:16 IMPRESSION: Unremarkable examination. Electronically signed by: Ni Coleman MD 05/30/2024 06:28 PM EDT RP Discharge Plan Discharge Anticipated Discharge Date/Time: 06/01/24 10:26 Patient Disposition: Home, Self-Care Discharge Diagnosis: Acute on chronic hypoxic respiratory failure secondary to acute exacerbation of COPD. Referrals: Magalie Nicolas MD [Primary Care Provider] - 1 Week Discharge Medications: New magnesium oxide 400 mg (241.3 mg magnesium) Tablet 400 mg PO DAILY Qty: 7 0RF prednisone 20 mg tablet 40 mg PO DAILY Qty: 8 0RF azithromycin [Zithromax] 250 mg tablet 250 mg PO DAILY 4 Days Qty: 4 0RF Continued (DME) lancets [FreeStyle Lancets] 28 gauge misc See Rx Instructions .Route Qty: 100 5RF Rx Instructions: As directed twice a day AC (DME) FreeStyle Lite Strips Strip See Rx Instructions .Route Qty: 100 0RF Rx Instructions: check fasting blood sugar twice a day before meals (DME) FreeStyle Cristian 2 Sensor Kit See Rx Instructions .Route Qty: 6 3RF Rx Instructions: Test blood sugar 4 times per day (DME) FreeStyle Cristian 2 [place] Misc See Rx Instructions .Route Qty: 1 0RF Rx Instructions: test blood sugar 4 times per day losartan 50 mg tablet 50 mg PO DAILY Qty: 90 1RF Januvia 100 mg tablet 100 mg PO DAILY Qty: 90 1RF cholecalciferol (vitamin D3) 50 mcg (2,000 unit) capsule 50 mcg PO DAILY Qty: 90 1RF rosuvastatin 5 mg tablet 5 mg PO DAILY Qty: 90 1RF gabapentin 800 mg tablet 800 mg PO TID 30 Days Qty: 90 6RF amlodipine 5 mg tablet 5 mg PO DAILY Qty: 90 0RF metoclopramide HCl 10 mg tablet 10 mg PO TID Qty: 90 6RF albuterol sulfate 2.5 mg /3 mL (0.083 %) solution for nebulization 2.5 mg inhalation Q6H PRN (Reason: wheezing) psyllium husk [Fiber Laxative (psyllium husk)] 0.52 gram capsule 1.04 g PO BID baclofen 10 mg tablet 10 mg PO TID metformin 1,000 mg tablet 1,000 mg PO BID lansoprazole 30 mg capsule,delayed release(DR/EC) 30 mg PO DAILY@0630 acetaminophen 650 mg Tablet Extended Release 650 mg PO TID PRN (Reason: Pain) ferrous sulfate 324 mg (65 mg iron) tablet,delayed release (DR/EC) 324 mg PO DAILY nicotine 14 mg/24 hr patch 24 hour 1 patch topical DAILY Linzess 145 mcg capsule 145 mcg PO DAILY umeclidinium 62.5 mcg/actuation blister with device 1 inh inhalation DAILY Rx Instructions: Encruse aspirin [Adult Low Dose Aspirin] 81 mg tablet,delayed release (DR/EC) 81 mg PO BEDTIME (DME) blood-glucose meter [FreeStyle Lite Meter] Kit See Rx Instructions .Route Qty: 1 0RF Rx Instructions: As directed twice a day before meals Discharge Orders: Discharge Order (Routine); Ordered 06/01/24 Ordered By: Grisel Erickson Diet: Advance to usual diet Activity on Discharge: As tolerated Stand Alone Forms: Patient Portal Discharge page Print Language: [place] Citizen Other Ambulatory Orders: Basic Metabolic Panel (Routine) Timeframe: 1 Week Facility: [facility] - Location: Laboratory Ordered By: Grisel Erickson Magnesium (Routine) Timeframe: 1 Week Facility: [facility] - Location: Laboratory Ordered By: Grisel Erickson Care Plan Goals: 64 y/o F with Acute on chronic hypoxic respiratory failure secondary to acute exacerbation of COPD(on home 2 liter oxygen)-started nebs,steriods ,azitrhomycin -seems improved significantly ,says now at her baseline , walking fine ,sats on 97% on 2 liter. hypomagnesemia -repleted and resolved ,given magnesium 400 mg po dialy for 1 week. patient will be going home prednisone 40 mg po daily and azithromycin 250 mg (both for 4 days). strongly advised to cut down and quit smoking complete prednisone 40 mg po daily and azithromycin 250 mg (both for 4 days). please check bmp ,magnesium levels outpatient,f/u with pcp. Above management discussed with the patient in detail length she understand and in agreement with the above plan, time spent 40 minutes and 50% time spent on counseling. Health Concerns: strongly advised to cut down and quit smoking complete prednisone 40 mg po daily and azithromycin 250 mg (both for 4 days). please check bmp ,magnesium levels outpatient,f/u with pcp. Plan of Treatment: as above. Assessment: as above. Patient Instructions: Hypomagnesemia (DC), Chronic Lung Disease and Infection Prevention (DC)
--- NOTE | 2024-06-01 10:54 | MHC.CM.PN ---
PT MEDICALLY CLEARED FOR DC HOME W/RESUMPTION OF [facility] FOR HOME O2/[facility] SERVICES, PT'S S.O. FOR TRANSPORT
[2024-06-01 11:23] VITALS: BP 124/53; PULSE 82; RESP 18; TEMP 36.4; O2SAT 96
[2024-06-01 11:39] LABS: Glucose, Whole Blood 192 mg/dL (60-115)
== END 2024-06-01 13:00 | disposition home or self-care (01) | DRG 140 ==
LOC: HO.ED 19:35 → HO.EDOVER 21:42 → HO.IMC 05-31 19:52
PROVIDERS: Physician Assistant; Physician Assistant Medical; Admitting Provider Internal Medicine; Emergency Provider Emergency Medicine; PCP Internal Medicine; Visit Provider Internal Medicine
DX: J44.1 Chronic obstructive pulmonary disease with (acute) exacerbation (principal); Z99.81 Dependence on supplemental oxygen; E11.65 Type 2 diabetes mellitus with hyperglycemia; F17.210 Nicotine dependence, cigarettes, uncomplicated; K59.04 Chronic idiopathic constipation; K21.9 Gastro-esophageal reflux disease without esophagitis; I10 Essential (primary) hypertension; E83.42 Hypomagnesemia; Z20.822 Contact with and (suspected) exposure to COVID-19; Z71.6 Tobacco abuse counseling; Z79.82 Long term (current) use of aspirin; Z79.84 Long term (current) use of oral hypoglycemic drugs; Z79.899 Other long term (current) drug therapy
CPT/HCPCS: 0241U; 36415; 71046; 80048; 80076; 82803; 82947; 83735; 84295; 84484; 85025; 87633; 93005; 94640; 99285; J0456; J1650; J2919; J3475

== ENCOUNTER → 2024-05-30 17:16 | Outpatient (BNV) | payer OTHER, SELFPAY | PROVIDERS: Admitting Provider Internal Medicine; Emergency Provider Emergency Medicine; PCP Internal Medicine; Visit Provider Internal Medicine | DX: R06.02 Shortness of breath (principal) | CPT/HCPCS: 93010 ==

== ENCOUNTER → 2024-05-30 21:29 | Outpatient (BNV) | payer OTHER, SELFPAY | PROVIDERS: Admitting Provider Internal Medicine; Emergency Provider Emergency Medicine; PCP Internal Medicine; Visit Provider Internal Medicine | DX: J44.1 Chronic obstructive pulmonary disease with (acute) exacerbation (principal) | CPT/HCPCS: 99223; 99232; 99239 ==

== ENCOUNTER 2024-06-06 14:34 | Emergency (ER) | payer OTHER, SELFPAY ==
--- NOTE | ~2024-06-06 | XR_ITS ---
STUDY: Chest and KUB INDICATION: Cough, abdominal pain COMPARISON: 05/30/2024 chest TECHNIQUE: 2 view chest, single upright KUB FINDINGS: Chest: Heart, mediastinum and vascularity within normal limits. Aortic calcifications again seen. Bilateral mild increased markings are unchanged at the lung bases. Right diaphragmatic tenting seen posteriorly. Bones are demineralized. Slight curvature of the thoracic spine to the left. Lower cervical surgical hardware again seen. KUB: No free air. Nonobstructive bowel pattern. Solid visceral outlines within normal limits. Demineralization and dextroscoliosis. Density overlying the left superior SI joint may represent ingested tablet. Lung bases clear. XR/XR chest 2V IMPRESSION: 1. No acute cardiopulmonary disease. Mild bibasilar atelectasis. 2. Nonobstructive bowel pattern. Electronically signed by: Ruth Rueda MD 06/06/2024 04:21 PM EDT
--- NOTE | ~2024-06-06 | XR_ITS ---
STUDY: Chest and KUB INDICATION: Cough, abdominal pain COMPARISON: 05/30/2024 chest TECHNIQUE: 2 view chest, single upright KUB FINDINGS: Chest: Heart, mediastinum and vascularity within normal limits. Aortic calcifications again seen. Bilateral mild increased markings are unchanged at the lung bases. Right diaphragmatic tenting seen posteriorly. Bones are demineralized. Slight curvature of the thoracic spine to the left. Lower cervical surgical hardware again seen. KUB: No free air. Nonobstructive bowel pattern. Solid visceral outlines within normal limits. Demineralization and dextroscoliosis. Density overlying the left superior SI joint may represent ingested tablet. Lung bases clear. XR/XR KUB IMPRESSION: 1. No acute cardiopulmonary disease. Mild bibasilar atelectasis. 2. Nonobstructive bowel pattern. Electronically signed by: Ruth Rueda MD 06/06/2024 04:21 PM EDT
[2024-06-06 15:05] VITALS: BP 114/76; PULSE 99; RESP 16; TEMP 36.3; O2SAT 96; BMI 24.7
--- NOTE | 2024-06-06 15:14 | ED_ITS ---
HPI - General Adult General Chief complaint: General Medical Stated complaint: Abd pain Time Seen by Provider: 06/06/24 18:55 Source: patient Mode of arrival: EMS Limitations: no limitations History of Present Illness ED Provider: Dr. Enmanuel Henderson HPI narrative: 64 years old past medical history significant for COPD -on home O2 2L/min, type 2 mellitus on metformin, essential hypertension and hyperlipidemia presents to the ED complaining of shortness of breath, productive cough and abdominal pain. Patient states that she is chronically short of breath but she feels more short of breath above her baseline. Patient states she has had a cough which is productive of thick sputum with no hemoptysis. She denied chest pain, fever, chills, nausea or vomiting. She believes that her COPD is flared up and this is happened to her in the past and she states she always gets steroids and antibiotics and sometimes gets admitted. The patient also is complaining of abdominal pain. She points to her epigastric area. She states she has had this pain for several months. She gets a daily and it is exacerbated by eating. She states that she has been compliant with her medications and she does take lansoprazole 30 mg daily. She denied any dark tarry stools or bloody stools. In April the patient was diagnosed with a right renal cell carcinoma seen on CT scan of the abdomen pelvis, she has followed up with our urologist, Dr. Suresh Boyd who is managing the workup and treatment of this cancer. Last office visit was 05/22/2024 and I did review this record. Related Data Home Medications ?Medication ?Instructions ?Recorded ?Confirmed aspirin 81 mg tablet,delayed 81 mg PO BEDTIME 01/10/21 05/30/24 release (Adult Low Dose Aspirin) umeclidinium 62.5 mcg/actuation 1 inh inhalation DAILY 03/31/21 05/30/24 blister powder for inhalation albuterol sulfate 2.5 mg/3 mL 2.5 mg inhalation Q6H PRN wheezing 08/02/23 05/30/24 (0.083 %) solution for nebulization psyllium husk 0.52 gram capsule 1.04 g PO BID Constipation 02/28/24 05/30/24 (Fiber Laxative (psyllium husk)) baclofen 10 mg tablet 10 mg PO TID 05/06/24 05/30/24 metformin 1,000 mg tablet 1,000 mg PO BID 05/06/24 05/30/24 lansoprazole 30 mg capsule,delayed 30 mg PO DAILY@0630 05/21/24 05/30/24 release acetaminophen 650 mg 650 mg PO TID PRN Pain 05/30/24 05/30/24 tablet,extended release ferrous sulfate 324 mg (65 mg 324 mg PO DAILY 05/30/24 05/30/24 iron) tablet,delayed release linaclotide 145 mcg capsule 145 mcg PO DAILY 05/30/24 05/30/24 (Linzess) nicotine 14 mg/24 hr daily 1 patch topical DAILY 05/30/24 05/30/24 transdermal patch Previous Rx's ?Medication ?Instructions ?Recorded blood-glucose meter (FreeStyle #1 ea 10/03/21 Lite Meter kit) lancets 28 gauge (FreeStyle #100 ea 01/06/22 Lancets) FreeStyle Lite Strips (blood sugar #100 ea 03/10/22 diagnostic) flash glucose sensor (FreeStyle #6 ea 02/19/23 Cristian 2 Sensor kit) flash glucose scanning reader #1 ea 03/26/23 (FreeStyle Cristian 2 Arrowsmith) losartan 50 mg tablet 50 mg PO DAILY #90 tabs 10/10/23 cholecalciferol (vitamin D3) 50 50 mcg PO DAILY #90 caps 11/22/23 mcg (2,000 unit) capsule sitagliptin phosphate 100 mg 100 mg PO DAILY #90 tabs 11/22/23 tablet (Januvia) rosuvastatin 5 mg tablet 5 mg PO DAILY #90 tabs 12/01/23 gabapentin 800 mg tablet 800 mg PO TID 30 days #90 tabs 01/26/24 amlodipine 5 mg tablet 5 mg PO DAILY #90 tabs 03/20/24 metoclopramide HCl 10 mg tablet 10 mg PO TID #90 tabs 05/11/24 azithromycin 250 mg tablet 250 mg PO DAILY 4 days #4 tabs 06/01/24 (Zithromax) magnesium oxide 400 mg (241.3 mg 400 mg PO DAILY #7 tabs 06/01/24 magnesium) tablet prednisone 20 mg tablet 40 mg (2 x 20 mg) PO DAILY #8 tabs 06/01/24 doxycycline hyclate 100 mg tablet 100 mg PO Q12H 7 days #14 tabs 06/06/24 prednisone 20 mg tablet 60 mg (3 x 20 mg) PO DAILY 5 days 06/06/24 #15 tabs Allergies Allergy/AdvReac Type Severity Reaction Status Date / Time amoxicillin [AMOXICILLIN] Allergy Intermediate RASH Verified 06/06/24 15:08 Review of Systems 2 Review of Systems: Yes all other systems are reviewed and are negative [facility] Past Medical History Medical History (Updated 06/07/24 @ 00:02 by Background Samantha) Hypochromic anemia COPD (chronic obstructive pulmonary disease) Type 2 diabetes mellitus without complication, with no history of insulin use Heavy cigarette smoker Acute on chronic hypoxic respiratory failure Diabetic gastroparesis COPD (chronic obstructive pulmonary disease) Mixed dyslipidemia Essential hypertension GERD (gastroesophageal reflux disease) Gastroparesis Diastolic CHF with preserved left ventricular function, NYHA class 2 Chronic hypercapnic respiratory failure Type 2 diabetes mellitus with other diabetic kidney complication Type 2 diabetes mellitus without complication, with no history of insulin use Smoker unmotivated to quit Postlaminectomy syndrome of cervical region Seasonal allergic rhinitis Degenerative disc disease, cervical Postmenopause Dyslipidemia Surgical History H/O cervical discectomy History of esophagogastroduodenoscopy (EGD) Hx of colonoscopy Family History Family History Mother Diabetes Sister Diabetes Mental health disorder Brother Diabetes Father HTN (hypertension) Social History Social History Household Members: Significant Other Housing: Other Housing Other:: mobile home Do you presently have visiting nurse or other home services: Yes (1x/week, for housecleaning) Alcohol intake: former Comment: Commode/ Hi Flow O2 Patient Tobacco Use Status: Current everyday Tobacco user Tobacco use type: Cigarette Cigarette Packs Per Day: 1 Cigarettes Per Day: 20 Years Smoked: 50 Smoked in Last 30 Days: Yes e-Cigarette/Vaping Use: Never Used Second Hand Smoke Exposure: Yes Use of substances other than those prescribed or required for medical reasons: No Advance Directives: Yes Advance Directives on File: Yes Advance Directives Date on File: 08/02/23 Do you have a plan to hurt others: No Plan Patient : No service: No Current occupational status: unemployed Cognitive needs: No Hearing needs: No Vision needs: Yes Physical Exam ED Vital Signs: Vital Signs - 24 hr 06/06/24 15:05 06/06/24 19:33 06/06/24 20:28 Temperature 97.3 F 98.3 F Pulse Rate 99 98 96 Respiratory Rate 16 18 18 Blood Pressure 114/76 130/47 L Pulse Oximetry 96 92 Oxygen Delivery Method Nasal Cannula Nasal Cannula Oxygen Flow Rate 2 BMI result Body Mass Index 24.7 Vital signs were normal with an O2 saturation of 99% on 2 L of oxygen via nasal cannula which is her home dose Exam: General: Awake, alert in no distress, patient does answer questions appropriately but occasionally pauses, seems to forget questions, and has to be questioned again to get a response Head: Normocephalic, atraumatic EENT: PERRL, Lids normal, sclera normal, conjunctiva normal, nose normal , ears normal, throat without erythema or exudates Neck: Supple, no adenopathy Lung: breath sounds symmetric, mild diffuse wheezing at the end of expiration, no rales, no rhonchi, no rales Chest: symmetric movement, nontender Heart: regular rate and rhythm, normal S1, S2 no murmurs or rubs Abdomen: soft, mild epigastric tenderness, nondistended, normal bowel sounds, no voluntary or involuntary guarding Back: no vertebral tenderness, no CVAT Extremities: no deformities, moves all extremities symmetrically Neuro: Awake, alert, oriented, speech normal but occasionally she forgets the questions and needs to be we questioned to get an answer, cranial nerves intact, moves all extremities symmetrically Psych: Pleasant, cooperative Course Course Course Narrative: This is a rapid medical exam performed by Tammy Hair PA-C. The patient is 64-year-old female with a history of COPD on 2 L nasal cannula at baseline, ongoing tobacco abuse, diabetes, GERD with gastritis, chronic constipation, chronic abdominal pain, chronic pain in general, who is a frequent Flyer and well known to the emergency department, presents with COPD exacerbation and ongoing abdominal pain?. On exam, there was no wheezing, the patient is not tachypneic, she is 96% on her baseline 2 L nasal cannula. Her abdomen is soft, nondistended nontender no objective guarding. We will screen basic labs, a viral panel and a chest x-ray. She may just be constipated, we will add a KUB as well. The patient is stable, and can return to the weight room pending her full assessment. Medications Administered Discontinued Medications Generic Name Dose Route Start Last Admin Trade Name Jordon PRN Reason Stop Dose Admin Albuterol Sulfate 2.5 mg/ 0 mg 06/06/24 20:20 06/06/24 20:27 Albuterol/Ipratropium 3 ml INHALE 06/06/24 20:21 1 dose ONCE ONE Administration Doxycycline Monohydrate 100 mg 06/06/24 19:16 06/06/24 19:32 Doxycycline Monohydrate 100 Mg Capsule PO 06/06/24 19:17 100 mg ONCE ONE Administration Magnesium Oxide 400 mg 06/06/24 19:16 06/06/24 19:32 Magnesium Oxide 400 Mg Tablet PO 06/06/24 19:17 400 mg ONCE ONE Administration Prednisone 60 mg 06/06/24 19:16 06/06/24 19:32 Prednisone 20 Mg Tablet PO 06/06/24 19:17 60 mg ONCE ONE Administration Medical Decision Making Medical Decision Making MDM Narrative: 64 years old past medical history significant for COPD -on home O2 2L/min, type 2 mellitus on metformin, essential hypertension and hyperlipidemia presents to the ED complaining of shortness of breath above her baseline, productive cough and abdominal pain. Patient states that she is chronically short of breath but she feels more short of breath above her baseline. Patient states she has had a cough which is productive of thick sputum with no hemoptysis. She denied chest pain, fever, chills, nausea or vomiting. She believes that her COPD is flared up and this is happened to her in the past and she states she always gets steroids and antibiotics and sometimes gets admitted. The patient also is complaining of abdominal pain. She points to her epigastric area. She states she has had this pain for several months. She gets a daily and it is exacerbated by eating. She states that she has been compliant with her medications and she does take lansoprazole 30 mg daily. She denied any dark tarry stools or bloody stools. Vital signs were normal. Lung exam revealed wheezing at the end of expiration otherwise she did not appear to be in respiratory distress. Differential diagnosis: ?Includes but is not limited to pneumonia, bronchitis, COPD exacerbation, gastritis, GERD, electrolyte abnormalities, anemia Course: 20:58 hours My interpretation patient's laboratory evaluation is as follows: WBC elevated 13,800 with a normal H&H, normal platelet count. Bicarb elevated 32. Magnesium low 1.4. LFTs normal. Lipase normal. COVID-19, RSV and influenza were negative. Patient's two view chest x-ray revealed no acute abnormalities on my interpretation. Radiologist also felt like he was no acute abnormalities but the patient did have mild bibasilar atelectasis. Patient also had a KUB which revealed no obstructive pattern and no free air under the diaphragm. Patient's presentation is consistent with COPD exacerbation most likely caused by bronchitis. Patient was treated with albuterol 5 mg and ipratropium 2.5 mg nebulized here in the emergency department with improvement of her shortness of breath. Patient will be started on doxycycline 100 mg q.12 hours for 5 days for bronchitis and she was given her 1st dose here in the emergency department. Patient's magnesium was low and she was given magnesium 400 mg orally here in the emergency department. She was feeling and she does want to go home. She was advised to return to the emergency department if her symptoms got worse or she develops any new symptoms were concerning to her. Admission/Observation Consideration of admission/observation: Escalation of care including admission/observation considered (Yes) Lab Data MDM Lab Attestation statement: I reviewed the patient's lab results. 06/06/24 15:55 06/06/24 15:55 Labs: Lab Results 06/06/24 Range/Units 15:55 WBC 13.8 H (4.8-10.8) X10*3/uL RBC 4.94 (4.20-5.50) X10*6/uL Hgb 12.4 (12.0-16.0) g/dl Hct 41.7 (37.0-47.0) % MCV 84.4 (80.0-98.0) fL MCH 25.1 L (27.0-33.0) pg MCHC 29.7 L (31.0-35.0) g/dl RDW 19.0 H (11.0-16.0) % Plt Count 311 (160-400) X10*3/uL MPV 10.4 (9.4-12.3) fL Immature Gran % (Auto) 0.5 H (0.0-0.4) % Neut % (Auto) 65.3 (45-73) % Lymph % (Auto) 26.8 (20-40) % Lander % (Auto) 6.3 (2-11) % Eos % (Auto) 0.9 (0-4) % Baso % (Auto) 0.2 (0-2) % Lymph # (Auto) 3.7 (1.2-4.9) X10*3/uL Lander # (Auto) 0.9 (0.1-1.2) X10*3/uL Eos # (Auto) 0.1 (0.0-0.4) X10*3/uL Baso # (Auto) 0.0 (0.0-0.2) X10*3/uL Abs Immat Gran (auto) 0.07 H (0.00-0.03) X10*3/uL Absolute Neuts (auto) 9.0 H (2.0-8.3) x10*3/uL Absolute Nucleated RBC 0.000 (0.0-0.012) X10*3/uL Nucleated RBC % (auto) 0.0 (0.0-0.2) /100WBC Sodium 143 (135-145) mmol/L Potassium 3.7 (3.3-5.1) mmol/L Chloride 97 (96-108) mmol/L Carbon Dioxide 32 H (22-29) mmol/L Anion Gap 18 (12-20) BUN 10 (9-16) mg/dL Creatinine 0.52 (0.5-1.4) mg/dL Estim Creat Clear Calc 76.6 Estimated GFR > 60 Random Glucose 106 (60-115) mg/dL Calcium 10.3 H D (8.4-10.2) mg/dL Magnesium 1.4 L* (1.6-2.6) mg/dL Total Bilirubin 0.5 (0.0-1.0) mg/dL AST 13 (5-31) U/L ALT 12 (0-31) U/L Alkaline Phosphatase 55 (39-117) U/L Total Protein 6.7 (6.5-8.0) g/dL Albumin 4.4 (3.5-5.0) g/dL Lipase 22 (8-78) U/L Influenza Type A (PCR) NEGATIVE (Negative) Influenza Type B (PCR) NEGATIVE (Negative) RSV RNA Qual (PCR) NEGATIVE (Negative) SARS-CoV-2 RNA (RT-PCR) NEGATIVE (Negative) Independent Interpretation I performed an independent interpretation of an: Plain X-Ray Interpretation: My interpretation patient's two view chest x-ray is as follows: No acute disease, COPD changes My interpretation of the patient's KUB is as follows: No free air under the diaphragm no obstructive pattern Radiology Impression Discussion of test interpretation with radiology: I have reviewed the radiologist's reading. Radiologist Impression: XR chest 2V IMPRESSION: 1. No acute cardiopulmonary disease. Mild bibasilar atelectasis. 2. Nonobstructive bowel pattern. Electronically signed by: Ruth Rueda MD 06/06/2024 04:21 PM External Record Review External record reviewed: Inpatient record Prescription Management I considered prescription management with: Antibiotic and Other (Anti- inflammatory steroids-prednisone) Discharge Plan Discharge Clinical Impression: COPD exacerbation, Gastritis, Bronchitis Patient Disposition: Home, Self-Care Instructions: Acute Bronchitis (ED) Additional Instructions: Your laboratory evaluation was unremarkable. Your COVID-19, influenza and RSV tests were negative. Your chest x-ray did not reveal any pneumonia. I think you have a flare-up of your COPD caused by bronchitis. Take prednisone 20 mg pills, 3 pills once a day for 5 days. While you ?are taking prednisone, do not take any NSAIDs (Motrin, Advil, ibuprofen, Aleve, naproxen). Take doxycycline 100 mg, 1 pill every 12 hours for 7 days Continue taking medications as prescribed by your providers. You should wear your oxygen continually Follow-up with your doctor in 2 days. Please return to the emergency department if your symptoms get worse or if you develop any symptoms that are concerning to you. Prescriptions: New prednisone 20 mg tablet 60 mg PO DAILY 5 Days Qty: 15 0RF doxycycline hyclate 100 mg tablet 100 mg PO Q12H 7 Days Qty: 14 0RF No Action (DME) lancets [FreeStyle Lancets] 28 gauge misc See Rx Instructions .Route Qty: 100 5RF Rx Instructions: As directed twice a day AC (DME) FreeStyle Lite Strips Strip See Rx Instructions .Route Qty: 100 0RF Rx Instructions: check fasting blood sugar twice a day before meals (DME) FreeStyle Cristian 2 Sensor Kit See Rx Instructions .Route Qty: 6 3RF Rx Instructions: Test blood sugar 4 times per day (DME) FreeStyle Cristian 2 Arrowsmith Misc See Rx Instructions .Route Qty: 1 0RF Rx Instructions: test blood sugar 4 times per day losartan 50 mg tablet 50 mg PO DAILY Qty: 90 1RF Januvia 100 mg tablet 100 mg PO DAILY Qty: 90 1RF cholecalciferol (vitamin D3) 50 mcg (2,000 unit) capsule 50 mcg PO DAILY Qty: 90 1RF rosuvastatin 5 mg tablet 5 mg PO DAILY Qty: 90 1RF gabapentin 800 mg tablet 800 mg PO TID 30 Days Qty: 90 6RF amlodipine 5 mg tablet 5 mg PO DAILY Qty: 90 0RF metoclopramide HCl 10 mg tablet 10 mg PO TID Qty: 90 6RF albuterol sulfate 2.5 mg /3 mL (0.083 %) solution for nebulization 2.5 mg inhalation Q6H PRN (Reason: wheezing) psyllium husk [Fiber Laxative (psyllium husk)] 0.52 gram capsule 1.04 g PO BID baclofen 10 mg tablet 10 mg PO TID metformin 1,000 mg tablet 1,000 mg PO BID lansoprazole 30 mg capsule,delayed release(DR/EC) 30 mg PO DAILY@0630 acetaminophen 650 mg Tablet Extended Release 650 mg PO TID PRN (Reason: Pain) ferrous sulfate 324 mg (65 mg iron) tablet,delayed release (DR/EC) 324 mg PO DAILY nicotine 14 mg/24 hr patch 24 hour 1 patch topical DAILY Linzess 145 mcg capsule 145 mcg PO DAILY magnesium oxide 400 mg (241.3 mg magnesium) Tablet 400 mg PO DAILY Qty: 7 0RF prednisone 20 mg tablet 40 mg PO DAILY Qty: 8 0RF azithromycin [Zithromax] 250 mg tablet 250 mg PO DAILY 4 Days Qty: 4 0RF umeclidinium 62.5 mcg/actuation blister with device 1 inh inhalation DAILY Rx Instructions: Encruse aspirin [Adult Low Dose Aspirin] 81 mg tablet,delayed release (DR/EC) 81 mg PO BEDTIME (DME) blood-glucose meter [FreeStyle Lite Meter] Kit See Rx Instructions .Route Qty: 1 0RF Rx Instructions: As directed twice a day before meals Interventions: ED Discharge Assessment Last Done: 06/06/24 21:27 Discharge Date/Time: 06/06/24 21:28 Print Language: Swedish
[2024-06-06 16:03] LABS: MANUAL DIFF FLAG NO
[2024-06-06 16:14] LABS: Basophils Percent Auto 0.2 % (0-2); Eosinophils Absolute Auto 0.1 X10*3/uL (0.0-0.4); Eosinophils Percent Auto 0.9 % (0-4); Hematocrit 41.7 % (37.0-47.0); Hemoglobin 12.4 g/dl (12.0-16.0); Imm Gran Abs Auto 0.07 X10*3/uL (0.00-0.03); Imm Gran Pct Auto 0.5 % (0.0-0.4); Lymphocytes Absolute Auto 3.7 X10*3/uL (1.2-4.9); Lymphocytes Percent Auto 26.8 % (20-40); Mean Corpuscular HGB Conc 29.7 g/dl (31.0-35.0); Mean Corpuscular Hemoglobin 25.1 pg (27.0-33.0); Mean Corpuscular Volume 84.4 fL (80.0-98.0); Mean Platelet Volume 10.4 fL (9.4-12.3); Monocytes Absolute Auto 0.9 X10*3/uL (0.1-1.2); Monocytes Percent Auto 6.3 % (2-11); Neutrophils Percent Auto 65.3 % (45-73); Platelet Count 311 X10*3/uL (160-400); Red Blood Count 4.94 X10*6/uL (4.20-5.50); White Blood Count 13.8 X10*3/uL (4.8-10.8)
[2024-06-06 16:26] LABS: Alanine Aminotransferase 12 U/L (0-31); Albumin Level 4.4 g/dL (3.5-5.0); Alkaline Phosphatase 55 U/L (39-117); Anion Gap 18 (12-20); Aspartate Amino Transferase 13 U/L (5-31); Bilirubin Total 0.5 mg/dL (0.0-1.0); Blood Urea Nitrogen 10 mg/dL (9-16); Calcium 10.3 mg/dL (8.4-10.2); Carbon Dioxide 32 mmol/L (22-29); Chloride 97 mmol/L (96-108); Creatinine Clr Calc Pharmacy 76.6; Estimated Glomerular Filt Rate > 60; Glucose Random 106 mg/dL (60-115); Lipase 22 U/L (8-78); Magnesium 1.4 mg/dL (1.6-2.6); Potassium 3.7 mmol/L (3.3-5.1); Sodium 143 mmol/L (135-145); Total Protein 6.7 g/dL (6.5-8.0)
[2024-06-06 16:42] LABS: Influenza A PCR NEGATIVE (Negative); Influenza B PCR NEGATIVE (Negative); Resp Syncy Virus RNA Qual PCR NEGATIVE (Negative); SARS COV2 PCR INHOUSE NEGATIVE (Negative)
[2024-06-06] MEDS: Magnesium Oxide 400 MG TABLET PO (19:32)
[2024-06-06] MEDS: Doxycycline Monohydrate 100 MG CAPSULE PO (19:32)
[2024-06-06] MEDS: predniSONE 20 MG TABLET 60 MG PO (19:32)
[2024-06-06 19:33] VITALS: BP 130/47; PULSE 98; RESP 18; TEMP 36.8; O2SAT 92
--- NOTE | 2024-06-06 19:35 | PC.NURSE ---
this rn assumed care of pt, pt a&ox4, respirations even unlabored. pt on 2L nasal cannula baseline sating 92%. pt medicated per oct, tolerated well with water.
[2024-06-06] MEDS: Albuterol Sulfate 2.5 MG, Albuterol/Iprat 2.5/0.5MG 3 ML 3 ML INHALE (20:27)
[2024-06-06 20:28] VITALS: PULSE 96; RESP 18; O2SAT 94
--- NOTE | 2024-06-06 20:59 | PC.NURSE ---
pt boyfriend contacted per request of patient for discharge at this time.
[2024-06-06 21:03] VITALS: BP 124/42; PULSE 100; RESP 18; TEMP 36.9; O2SAT 90
[2024-06-06 21:27] VITALS: BP 124/42; PULSE 100; RESP 18; TEMP 36.9; O2SAT 90
== END 2024-06-06 21:28 | disposition home or self-care (01) ==
PROVIDERS: Physician Assistant Medical; Emergency Provider Emergency Medicine Emergency Medical Services; PCP Internal Medicine
DX: J44.1 Chronic obstructive pulmonary disease with (acute) exacerbation (principal); K29.70 Gastritis, unspecified, without bleeding; J40 Bronchitis, not specified as acute or chronic; E11.9 Type 2 diabetes mellitus without complications; R06.02 Shortness of breath; R05.9 Cough, unspecified; F17.210 Nicotine dependence, cigarettes, uncomplicated; Z79.84 Long term (current) use of oral hypoglycemic drugs; Z79.899 Other long term (current) drug therapy; Z99.81 Dependence on supplemental oxygen; Z03.818 Encounter for observation for suspected exposure to other biological agents ruled out
CPT/HCPCS: 0241U; 36415; 71046; 74018; 80053; 83690; 83735; 85025; 94640; 99284

== ENCOUNTER 2024-06-09 18:25 | Emergency (ER) | payer OTHER, SELFPAY ==
--- NOTE | 2024-06-09 18:38 | ED_ITS ---
HPI - General Adult General Chief complaint: Dyspnea Stated complaint: not breathing well Time Seen by Provider: 06/09/24 21:09 Source: patient Mode of arrival: ambulatory Limitations: no limitations History of Present Illness ED Provider: concepcion MORALES narrative: Patient 64 years old with history of COPD on home oxygen 2 L chronic smoker type 2 diabetes hypertension hyperlipidemia just discharged from 06/05 for COPD exacerbation comes back again as she just prior to arrival feeling short of breath on arrival patient is saturating 94% on 2 L asking for food no chest pain no leg swelling no fever or chills speaking full sentences Related Data Home Medications ?Medication ?Instructions ?Recorded ?Confirmed aspirin 81 mg tablet,delayed 81 mg PO BEDTIME 01/10/21 05/30/24 release (Adult Low Dose Aspirin) umeclidinium 62.5 mcg/actuation 1 inh inhalation DAILY 03/31/21 05/30/24 blister powder for inhalation albuterol sulfate 2.5 mg/3 mL 2.5 mg inhalation Q6H PRN wheezing 08/02/23 05/30/24 (0.083 %) solution for nebulization psyllium husk 0.52 gram capsule 1.04 g PO BID Constipation 02/28/24 05/30/24 (Fiber Laxative (psyllium husk)) baclofen 10 mg tablet 10 mg PO TID 05/06/24 05/30/24 metformin 1,000 mg tablet 1,000 mg PO BID 05/06/24 05/30/24 lansoprazole 30 mg capsule,delayed 30 mg PO DAILY@0630 05/21/24 05/30/24 release acetaminophen 650 mg 650 mg PO TID PRN Pain 05/30/24 05/30/24 tablet,extended release ferrous sulfate 324 mg (65 mg 324 mg PO DAILY 05/30/24 05/30/24 iron) tablet,delayed release linaclotide 145 mcg capsule 145 mcg PO DAILY 05/30/24 05/30/24 (Linzess) nicotine 14 mg/24 hr daily 1 patch topical DAILY 05/30/24 05/30/24 transdermal patch Previous Rx's ?Medication ?Instructions ?Recorded blood-glucose meter (FreeStyle #1 ea 10/03/21 Lite Meter kit) lancets 28 gauge (FreeStyle #100 ea 01/06/22 Lancets) FreeStyle Lite Strips (blood sugar #100 ea 03/10/22 diagnostic) flash glucose sensor (FreeStyle #6 ea 02/19/23 Cristian 2 Sensor kit) flash glucose scanning reader #1 ea 03/26/23 (FreeStyle Cristian 2 [place]) losartan 50 mg tablet 50 mg PO DAILY #90 tabs 10/10/23 cholecalciferol (vitamin D3) 50 50 mcg PO DAILY #90 caps 11/22/23 mcg (2,000 unit) capsule sitagliptin phosphate 100 mg 100 mg PO DAILY #90 tabs 11/22/23 tablet (Januvia) rosuvastatin 5 mg tablet 5 mg PO DAILY #90 tabs 12/01/23 gabapentin 800 mg tablet 800 mg PO TID 30 days #90 tabs 01/26/24 amlodipine 5 mg tablet 5 mg PO DAILY #90 tabs 03/20/24 metoclopramide HCl 10 mg tablet 10 mg PO TID #90 tabs 05/11/24 azithromycin 250 mg tablet 250 mg PO DAILY 4 days #4 tabs 06/01/24 (Zithromax) magnesium oxide 400 mg (241.3 mg 400 mg PO DAILY #7 tabs 06/01/24 magnesium) tablet prednisone 20 mg tablet 40 mg (2 x 20 mg) PO DAILY #8 tabs 06/01/24 doxycycline hyclate 100 mg tablet 100 mg PO Q12H 7 days #14 tabs 06/06/24 prednisone 20 mg tablet 60 mg (3 x 20 mg) PO DAILY 5 days 06/06/24 #15 tabs Allergies Allergy/AdvReac Type Severity Reaction Status Date / Time amoxicillin [AMOXICILLIN] Allergy Intermediate RASH Verified 06/09/24 18:42 Review of Systems 2 Review of Systems: Yes all other systems are reviewed and are negative PMF Past Medical History Medical History Hypochromic anemia COPD (chronic obstructive pulmonary disease) Type 2 diabetes mellitus without complication, with no history of insulin use Heavy cigarette smoker Acute on chronic hypoxic respiratory failure Diabetic gastroparesis COPD (chronic obstructive pulmonary disease) Mixed dyslipidemia Essential hypertension GERD (gastroesophageal reflux disease) Gastroparesis Diastolic CHF with preserved left ventricular function, NYHA class 2 Chronic hypercapnic respiratory failure Type 2 diabetes mellitus with other diabetic kidney complication Type 2 diabetes mellitus without complication, with no history of insulin use Smoker unmotivated to quit Postlaminectomy syndrome of cervical region Seasonal allergic rhinitis Degenerative disc disease, cervical Postmenopause Dyslipidemia Surgical History H/O cervical discectomy History of esophagogastroduodenoscopy (EGD) Hx of colonoscopy Family History Family History Mother Diabetes Sister Diabetes Mental health disorder Brother Diabetes Father HTN (hypertension) Social History Social History Household Members: Significant Other Housing: Other Housing Other:: mobile home Do you presently have visiting nurse or other home services: Yes (1x/week, for housecleaning) Alcohol intake: former Comment: Commode/ Hi Flow O2 Patient Tobacco Use Status: Current everyday Tobacco user Tobacco use type: Cigarette Cigarette Packs Per Day: 1 Cigarettes Per Day: 20 Years Smoked: 50 Smoked in Last 30 Days: Yes e-Cigarette/Vaping Use: Never Used Second Hand Smoke Exposure: Yes Use of substances other than those prescribed or required for medical reasons: No Advance Directives: Yes Advance Directives on File: Yes Advance Directives Date on File: 08/02/23 Patient : No service: No Current occupational status: unemployed Cognitive needs: No Hearing needs: No Vision needs: Yes Physical Exam ED Vital Signs: Vital Signs - 24 hr 06/09/24 18:39 06/09/24 21:38 06/09/24 22:08 Temperature 99.0 F 97.7 F Pulse Rate 99 89 101 H Respiratory Rate 18 20 26 H Blood Pressure 128/58 L 127/40 L Pulse Oximetry 92 94 Oxygen Delivery Method Nasal Cannula Nasal Cannula Oxygen Flow Rate 3 06/09/24 22:39 06/09/24 22:40 Temperature 97.5 F 97.5 F Pulse Rate 100 100 Respiratory Rate 21 H 21 H Blood Pressure 116/56 L 116/56 L Pulse Oximetry 90 L 90 L Oxygen Delivery Method Nasal Cannula Nasal Cannula Oxygen Flow Rate 3 2 BMI result Body Mass Index 24.7 Appearance: Alert. Oriented X3. No acute distress. Eyes: PERRLA, No Nystagmus ENT: Pharynx normal. Oral Mucosa moist Neck: Normal inspection. Neck supple. CVS: Normal heart rate and rhythm. Pulses normal. Respiratory: No respiratory distress. Equal air entry bilateral, prolonged expiration decreased air entry bilaterally Abdomen: Soft and nontender. Bowel sounds are present, no mass palpable, no CVA tenderness Skin: Skin warm and dry. Normal skin color. Normal skin turgor. Extremities: No lower extremity edema. No calf tenderness Neuro: Oriented X 3. No motor deficit. Course Course Course Narrative: This is an RME performed by Lian Freitas CNP: Additional HPI, ROS, PE not included below will be deferred to primary provider. Patient is a 64-year-old female who presents emergency department for evaluation of shortness of breath. She admits to a recent hospital admission and discharge a few days ago, she was feeling well time discharge but today she has began experiencing again increased shortness of breath and chest pain. States that her cough is at baseline. States she has been compliant with her medications since discharge in the emergency department on 06/06/2024 for bronchitis was discharged on prednisone 60 mg daily for 5 days and doxycycline 100 mg b.i.d. for 7 days. On review she was recently admitted for COPD exacerbation and acute on chronic respiratory failure; 05/30/2024-06/01/2024. Exam: Mild wheezing, She is wearing supplemental O2 at 2 L via nasal cannula, O2 saturations 92%. Does not appear to have significantly increased work of breathing Plan: Labs, ECG Medications Administered Discontinued Medications Generic Name Dose Route Start Last Admin Trade Name Freq PRN Reason Stop Dose Admin Albuterol Sulfate 2.5 mg/ 0 mg 06/09/24 21:41 06/09/24 22:08 Albuterol/Ipratropium 3 ml INHALE 06/09/24 21:42 5 dose ONCE ONE Administration Magnesium Oxide 400 mg 06/09/24 21:41 06/09/24 21:58 Magnesium Oxide 400 Mg Tablet PO 06/09/24 21:42 400 mg ONCE ONE Administration Medical Decision Making Medical Decision Making [facility] Narrative: Patient with COPD chronic smoker oxygen dependent saturating 94% at room Differential Diagnosis Differential Diagnoses: The differential diagnosis associated with the presentation includes Lab Data [facility] Lab Attestation statement: I reviewed the patient's lab results. 06/09/24 19:33 06/09/24 19:33 Labs: Lab Results 06/09/24 Range/Units 19:33 WBC 14.4 H (4.8-10.8) X10*3/uL RBC 4.64 (4.20-5.50) X10*6/uL Hgb 11.6 L (12.0-16.0) g/dl Hct 39.2 (37.0-47.0) % MCV 84.5 (80.0-98.0) fL MCH 25.0 L (27.0-33.0) pg MCHC 29.6 L (31.0-35.0) g/dl RDW 19.4 H (11.0-16.0) % Plt Count 320 (160-400) X10*3/uL MPV 9.9 (9.4-12.3) fL Immature Gran % (Auto) 0.6 H (0.0-0.4) % Neut % (Auto) 73.9 H (45-73) % Lymph % (Auto) 20.1 (20-40) % [place] % (Auto) 4.8 (2-11) % Eos % (Auto) 0.4 (0-4) % Baso % (Auto) 0.2 (0-2) % Lymph # (Auto) 2.9 (1.2-4.9) X10*3/uL [place] # (Auto) 0.7 (0.1-1.2) X10*3/uL Eos # (Auto) 0.1 (0.0-0.4) X10*3/uL Baso # (Auto) 0.0 (0.0-0.2) X10*3/uL Abs Immat Gran (auto) 0.08 H (0.00-0.03) X10*3/uL Absolute Neuts (auto) 10.7 H (2.0-8.3) x10*3/uL Absolute Nucleated RBC 0.000 (0.0-0.012) X10*3/uL Nucleated RBC % (auto) 0.0 (0.0-0.2) /100WBC PT 10.3 L (10.9-12.4) SEC INR 0.9 (0.9-1.1) Sodium 140 (135-145) mmol/L Potassium 3.5 (3.3-5.1) mmol/L Chloride 100 (96-108) mmol/L Carbon Dioxide 28 (22-29) mmol/L Anion Gap 16 (12-20) BUN 9 (9-16) mg/dL Creatinine 0.54 (0.5-1.4) mg/dL Estim Creat Clear Calc 73.8 Estimated GFR > 60 Random Glucose 129 H (60-115) mg/dL Calcium 10.4 H (8.4-10.2) mg/dL Magnesium 1.4 L* (1.6-2.6) mg/dL Total Bilirubin 0.3 (0.0-1.0) mg/dL AST 15 (5-31) U/L ALT 10 (0-31) U/L Alkaline Phosphatase 56 (39-117) U/L Troponin I High Sens 4.8 (<3.5-17.0) ng/L B-Natriuretic Peptide < 10 (<100) pg/mL Total Protein 6.2 L (6.5-8.0) g/dL Albumin 4.1 (3.5-5.0) g/dL Independent Interpretation I performed an independent interpretation of an: EKG Interpretation: Normal sinus rhythm heart rate 92 right side axis no acute ST-T changes no acute ischemia Discharge Plan Discharge Clinical Impression: COPD (chronic obstructive pulmonary disease) Patient Disposition: Home, Self-Care Instructions: COPD (Chronic Obstructive Pulmonary Disease) (ED) Additional Instructions: Stop smoking Use your nebulizer as advised and continue remaining medication Follow up with your PCP and pulmonary especially Prescriptions: No Action (DME) lancets [FreeStyle Lancets] 28 gauge misc See Rx Instructions .Route Qty: 100 5RF Rx Instructions: As directed twice a day AC (DME) FreeStyle Lite Strips Strip See Rx Instructions .Route Qty: 100 0RF Rx Instructions: check fasting blood sugar twice a day before meals (DME) FreeStyle Cristian 2 Sensor Kit See Rx Instructions .Route Qty: 6 3RF Rx Instructions: Test blood sugar 4 times per day (DME) FreeStyle Cristian 2 [place] Misc See Rx Instructions .Route Qty: 1 0RF Rx Instructions: test blood sugar 4 times per day losartan 50 mg tablet 50 mg PO DAILY Qty: 90 1RF Januvia 100 mg tablet 100 mg PO DAILY Qty: 90 1RF cholecalciferol (vitamin D3) 50 mcg (2,000 unit) capsule 50 mcg PO DAILY Qty: 90 1RF rosuvastatin 5 mg tablet 5 mg PO DAILY Qty: 90 1RF gabapentin 800 mg tablet 800 mg PO TID 30 Days Qty: 90 6RF amlodipine 5 mg tablet 5 mg PO DAILY Qty: 90 0RF metoclopramide HCl 10 mg tablet 10 mg PO TID Qty: 90 6RF albuterol sulfate 2.5 mg /3 mL (0.083 %) solution for nebulization 2.5 mg inhalation Q6H PRN (Reason: wheezing) psyllium husk [Fiber Laxative (psyllium husk)] 0.52 gram capsule 1.04 g PO BID baclofen 10 mg tablet 10 mg PO TID metformin 1,000 mg tablet 1,000 mg PO BID lansoprazole 30 mg capsule,delayed release(DR/EC) 30 mg PO DAILY@0630 prednisone 20 mg tablet 60 mg PO DAILY 5 Days Qty: 15 0RF doxycycline hyclate 100 mg tablet 100 mg PO Q12H 7 Days Qty: 14 0RF acetaminophen 650 mg Tablet Extended Release 650 mg PO TID PRN (Reason: Pain) ferrous sulfate 324 mg (65 mg iron) tablet,delayed release (DR/EC) 324 mg PO DAILY nicotine 14 mg/24 hr patch 24 hour 1 patch topical DAILY Linzess 145 mcg capsule 145 mcg PO DAILY magnesium oxide 400 mg (241.3 mg magnesium) Tablet 400 mg PO DAILY Qty: 7 0RF prednisone 20 mg tablet 40 mg PO DAILY Qty: 8 0RF azithromycin [Zithromax] 250 mg tablet 250 mg PO DAILY 4 Days Qty: 4 0RF umeclidinium 62.5 mcg/actuation blister with device 1 inh inhalation DAILY Rx Instructions: Encruse aspirin [Adult Low Dose Aspirin] 81 mg tablet,delayed release (DR/EC) 81 mg PO BEDTIME (DME) blood-glucose meter [FreeStyle Lite Meter] Kit See Rx Instructions .Route Qty: 1 0RF Rx Instructions: As directed twice a day before meals Interventions: ED Discharge Assessment Last Done: 06/09/24 22:40 Discharge Date/Time: 06/09/24 22:41 Print Language: Lao
[2024-06-09 18:39] VITALS: BP 128/58; PULSE 99; RESP 18; TEMP 37.2; O2SAT 92; BMI 24.7
--- NOTE | 2024-06-09 18:50 | ECG_ITS ---
Test Reason : DISPENA Blood Pressure : / mmHG Vent. Rate : 092 BPM Atrial Rate : 092 BPM P-R Int : 118 ms QRS Dur : 078 ms QT Int : 362 ms P-R-T Axes : 074 090 056 degrees QTc Int : 447 ms Normal sinus rhythm Rightward axis Borderline ECG When compared with ECG of 30-MAY-2024 17:24, No significant change was found Referred By: Beba Freitas Electronically Signed By:Allen Gant
[2024-06-09 19:37] LABS: Basophils Percent Auto 0.2 % (0-2); Eosinophils Absolute Auto 0.1 X10*3/uL (0.0-0.4); Eosinophils Percent Auto 0.4 % (0-4); Hematocrit 39.2 % (37.0-47.0); Hemoglobin 11.6 g/dl (12.0-16.0); Imm Gran Abs Auto 0.08 X10*3/uL (0.00-0.03); Imm Gran Pct Auto 0.6 % (0.0-0.4); Lymphocytes Absolute Auto 2.9 X10*3/uL (1.2-4.9); Lymphocytes Percent Auto 20.1 % (20-40); MANUAL DIFF FLAG NO; Mean Corpuscular HGB Conc 29.6 g/dl (31.0-35.0); Mean Corpuscular Volume 84.5 fL (80.0-98.0); Mean Platelet Volume 9.9 fL (9.4-12.3); Monocytes Absolute Auto 0.7 X10*3/uL (0.1-1.2); Monocytes Percent Auto 4.8 % (2-11); Neutrophils Absolute Auto 10.7 x10*3/uL (2.0-8.3); Neutrophils Percent Auto 73.9 % (45-73); Platelet Count 320 X10*3/uL (160-400); Red Blood Count 4.64 X10*6/uL (4.20-5.50); Red Cell Distribution Width 19.4 % (11.0-16.0); White Blood Count 14.4 X10*3/uL (4.8-10.8)
[2024-06-09 19:43] LABS: INTERNATIONAL NORM RATIO 0.9 (0.9-1.1); Prothrombin Time 10.3 SEC (10.9-12.4)
[2024-06-09 20:07] LABS: B Type Natriuretic Peptide < 10 pg/mL (<100)
[2024-06-09 20:08] LABS: Alanine Aminotransferase 10 U/L (0-31); Albumin Level 4.1 g/dL (3.5-5.0); Alkaline Phosphatase 56 U/L (39-117); Anion Gap 16 (12-20); Aspartate Amino Transferase 15 U/L (5-31); Bilirubin Total 0.3 mg/dL (0.0-1.0); Blood Urea Nitrogen 9 mg/dL (9-16); Calcium 10.4 mg/dL (8.4-10.2); Carbon Dioxide 28 mmol/L (22-29); Chloride 100 mmol/L (96-108); Creatinine Clr Calc Pharmacy 73.8; Estimated Glomerular Filt Rate > 60; Glucose Random 129 mg/dL (60-115); Magnesium 1.4 mg/dL (1.6-2.6); Potassium 3.5 mmol/L (3.3-5.1); Sodium 140 mmol/L (135-145); Total Protein 6.2 g/dL (6.5-8.0)
[2024-06-09 20:11] LABS: Troponin-I High Sensitivity 4.8 ng/L (<3.5-17.0)
--- NOTE | 2024-06-09 20:16 | PC.NURSE ---
pt from home, a&ox4, respirations even and unlabored, pt reports being on 2L nasal cannula baseline. pt reports increasing shortness of breath starting today with no relief from nebs at home. pt reports chronic cigarette use. pt reports being seen here previously for similar episode. vss.
[2024-06-09 21:38] VITALS: BP 127/40; PULSE 89; RESP 20; TEMP 36.5; O2SAT 94
[2024-06-09] MEDS: Magnesium Oxide 400 MG TABLET PO (21:58)
--- NOTE | 2024-06-09 21:59 | PC.NURSE ---
pt medicated per oct. tolerated well with water
[2024-06-09 22:08] VITALS: PULSE 101; RESP 26; O2SAT 91
[2024-06-09] MEDS: Albuterol Sulfate 2.5 MG, Albuterol/Iprat 2.5/0.5MG 3 ML 3 ML INHALE (22:08)
--- NOTE | 2024-06-09 22:12 | PC.NURSE ---
per pt request, call Boyfriend Wiley at this time, Boyfriend to provide transportation home.
[2024-06-09 22:39] VITALS: BP 116/56; PULSE 100; RESP 21; TEMP 36.4; O2SAT 90
[2024-06-09 22:40] VITALS: BP 116/56; PULSE 100; RESP 21; TEMP 36.4; O2SAT 90
== END 2024-06-09 22:41 | disposition home or self-care (01) ==
PROVIDERS: Nurse Practitioner Family; Emergency Provider Internal Medicine; PCP Internal Medicine
DX: J44.9 Chronic obstructive pulmonary disease, unspecified (principal); R06.00 Dyspnea, unspecified; R06.02 Shortness of breath; R94.31 Abnormal electrocardiogram [ECG] [EKG]; F17.210 Nicotine dependence, cigarettes, uncomplicated; Z99.81 Dependence on supplemental oxygen; Z79.899 Other long term (current) drug therapy
CPT/HCPCS: 36415; 80053; 83735; 83880; 84484; 85025; 85610; 93005; 94640; 99284; 99285

== ENCOUNTER → 2024-06-09 18:50 | Outpatient (BNV) | payer OTHER, SELFPAY | PROVIDERS: Emergency Provider Internal Medicine; PCP Internal Medicine; Visit Provider Internal Medicine Cardiovascular Disease | DX: R06.00 Dyspnea, unspecified (principal) | CPT/HCPCS: 93010 ==

== ENCOUNTER 2024-06-13 | Outpatient (REF) | payer OTHER, SELFPAY | END 2024-06-13 00:01 | disposition home or self-care (01) | LOC: CF | PROVIDERS: Visit Provider Nurse Practitioner | DX: K59.04 Chronic idiopathic constipation (principal); K21.9 Gastro-esophageal reflux disease without esophagitis; K31.84 Gastroparesis; C64.9 Malignant neoplasm of unspecified kidney, except renal pelvis; K29.70 Gastritis, unspecified, without bleeding | CPT/HCPCS: 99212 ==

== ENCOUNTER 2024-06-13 14:40 | Outpatient (AMB) | payer OTHER, SELFPAY ==
[2024-06-13 14:48] VITALS: BP 142/64; PULSE 104; BMI 23.9
--- NOTE | 2024-06-13 14:48 | MHC.OFFVIS ---
Vital Signs 06/13/24 14:48 Height 4 ft 9 in Weight 110 lb 3.698 oz BMI 23.9 BP 142/64 H Blood Pressure Location Lt brachial Position Sitting Pulse 104 H Intake Visit Reasons: 4 week follow up Intake Note: Maria Elena in office today in follow up of GERD and epigastric pain. CC: Patient reports that she never received the Famotidine. She states that she continues having epigastric pain and some nausea. She states that sometimes she is constipated and other times has loose stools. 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 Maria Elena does not feel well at all. She has presented to the ER twice for abdominal pain and each time she was found to be in respiratory failure. She continues to have pain that seems to be in the gastric area. She has a difficult time telling me how often the pain occurs or how long it lasts and she is uncertain if it happens every day. When she does have it it is around 7/10. She does not think that it is related to eating or moving her bowels but she has not paid attention to it enough to really make any connections. Sintia also has some intellectual limitations making her rather a poor historian. Because of this I would like her to keep a journal of her symptoms to see if we can make some connections. She denies nausea, trouble eating, or difficulty swallowing. At this point, I think her respiratory status is too poor to consider an endoscopy and colonoscopy. To date she has had 2 CT scans, an upper GI with small-bowel follow-through study which have been relatively unrevealing except for some esophageal dysmotility. There was also some suspicion of celiac disease but her tissue transglutaminase labs were negative. She is also currently being worked up by Urology for an unexplained renal mass. It is uncertain whether this could be contributing to her symptoms as well. In time if this is a renal carcinoma this could be contributing to pulmonary edema and exacerbation of her respiratory disease and to some of her abdominal symptoms since the kidneys are located in the upper abdomen. For now we are going to try to manage the symptoms I want to change her from omeprazole 20 mg 2 lansoprazole 30 mg once a day and famotidine at night. She continues on her metoclopramide 10 mg 3 times a day. I am going to decrease the Linzess from 145 micro g of 72 micro g because she seems to be having diarrhea which again she is unable to tell me exactly how often this happens. However it is possible the bowel spasm is contributing to her pain. Return office visit in 4 weeks COLONOSCOPY Probably should be put on hold relative to her respiratory status BIOPSY Maria Elena Lindsey I am making some changes to you medicines to try to control your pain. 1.?? Please keep a written journal of when you pain happens, what you were doing when it started, how long it lasts. 2.?? I am prescribing two new medicines, lansoprazole and famotidine. Take the lansoprazole in the morning and the famotidine at bedtime. 3.?? Stop the omeprazole when you get the lansoprazole. 4.?? For the diarrhea, I am changing the Linzess 145mcg to LInzess 72mcg. 5.?? I want to see you in 4 weeks. Call me if you don?t get any of the new medicines. Medications: New lansoprazole 30 mg PO DAILY 30 caps 6RF K21.9 - Gastro-esophageal reflux disease without esophagitis, R10.13 - Epigastric pain linaclotide (Linzess) 72 mcg PO QAM 30 caps 6RF Discontinued linaclotide (Linzess) Discontinued Reason: Doctor's Order 145 mcg PO QAM 30 caps 6RF TODAY'S VISIT She never received the famotidine, she DOES have the lansoprazole but this has not helped the epigastric pain. SHE HAS NOT HEARD ANYTHING IN R/T HER IR PROCEDURE TO CLARIFY HER RCC DX!! This is a roadblock for the pt aneeshue I can't proceed with any GI workup until this more complex process is clarified. It appears that the order for the desired procedure is not in the computer. I have addressed this and spoken to radiology to speak directly with IR and get her procedure urgently performed. Also referring to oncology and nephrology. ROV 4 weeks. Bring all medications. [facility] Medical History CAP (community acquired pneumonia) Acute on chronic hypoxic respiratory failure COPD mixed type Gastritis Gastroparesis COPD (chronic obstructive pulmonary disease) Shortness of breath Hypochromic anemia Type 2 diabetes mellitus without complication, with no history of insulin use Heavy cigarette smoker Diabetic gastroparesis COPD (chronic obstructive pulmonary disease) Mixed dyslipidemia Essential hypertension GERD (gastroesophageal reflux disease) Diastolic CHF with preserved left ventricular function, NYHA class 2 Chronic hypercapnic respiratory failure Type 2 diabetes mellitus with other diabetic kidney complication Type 2 diabetes mellitus without complication, with no history of insulin use Smoker unmotivated to quit Postlaminectomy syndrome of cervical region Seasonal allergic rhinitis Degenerative disc disease, cervical Postmenopause Dyslipidemia Surgical History H/O cervical discectomy History of esophagogastroduodenoscopy (EGD) Hx of colonoscopy Family History Mother Diabetes Sister Diabetes Mental health disorder Brother Diabetes Father HTN (hypertension) Social History Household Members: Significant Other Housing: Other Housing Other:: mobile home Do you presently have visiting nurse or other home services: 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) Alcohol intake: never Comment: Commode/ Hi Flow O2 Patient Tobacco Use Status: Current everyday Tobacco user Tobacco use type: Cigarette Cigarette Packs Per Day: 0.5 Years Smoked: 50 Smoked in Last 30 Days: No e-Cigarette/Vaping Use: Never Used Second Hand Smoke Exposure: Yes Use of substances other than those prescribed or required for medical reasons: No Advance Directives: Yes Advance Directives on File: Yes Advance Directives Date on File: 08/02/23 Do you have a plan to hurt others: No Plan service: No Current occupational status: unemployed and disabled Gender identity: Female Cognitive needs: No Hearing needs: No Vision needs: Yes Review of Systems Const Denies fatigue, Denies fever(s), Denies night sweats, Denies poor appetite and Denies weight loss Eyes Reports requires corrective lenses ENT Reports Normal hearing present, Denies dental pain, Denies dysphagia, Denies hearing loss, Denies mouth pain, Denies odynophagia, Denies throat swelling, Denies tongue swelling and Reports other (Dentition adequate) GI Details: Denies abdominal pain, Denies melena, Denies bloating, Denies hematochezia, Denies constipation, Denies GI cramping, Denies dysphagia, Denies excessive flatus, Denies early satiety, Denies heartburn, Denies diarrhea, Denies nausea, Denies odynophagia, Denies vomiting and Denies hematemesis Skin/Breast Denies pruritus, Denies lesions, Denies rash and Denies jaundice Neuro Reports Normal hearing present and Denies Abnormal speech present Endo Denies fatigue Aller/Immun Denies throat swelling and Denies tongue swelling Physical Exam Vital Signs: Last Vital Signs Pulse 104 H 06/13/24 14:48 BP 142/64 H 06/13/24 14:48 BMI result Body Mass Index 23.9 Const General: cooperative, no acute distress, well developed and well groomed Nutritional Appearance: well nourished, obese and overweight Orientation/consciousness: oriented to person, oriented to place and oriented to time Limitations: No language barrier, ambulation with cane, ambulation with walker and wheelchair HEENT Head: Yes normocephalic and Yes atraumatic Eyes General: appearance normal, both eyes and all related structures Pupils: Equal, round and reactive pupils present Neck Neck: Yes normal visual inspection and Yes no lymphadenopathy Thyroid: Thyroid normal Resp Effort & Inspection: normal respiratory effort and able to speak in complete sentences Auscultation: clear to auscultation bilaterally Cardio Rate: regular rate Rhythm: regular rhythm Heart sounds: Normal, physiologic split S2 sound present Peripheral pulses: radial pulses present and posterior tibial pulses present GI Inspection: No distended and No Abdominal panniculus present Palpation (GI): Soft to palpation, nontender, no guarding, not rigid, No hepatosplenomegaly present and Hepatosplenomegaly present Percussion: Yes normal to percussion Auscultation: normal bowel sounds Rectal Exam - Female: deferred Skin General skin exam: no rashes or lesions noted, turgor normal, skin not dry, no jaundice, No spider nevi and no striae Rashes: no rashes Nails: normal Neuro General: oriented to person, oriented to place and oriented to time Cranial nerves: Yes Equal, round and reactive pupils present and Yes Normal hearing present Speech: No Abnormal speech present Extrem General: Yes normal to inspection, No clubbing, No cyanosis and No edema Psych Thought process: Normal thought process present and not confabulating Thought content: Normal thought content present Insight: Good insight present (Psych) Judgement: Good judgement present (Psych) Assessment & Plan Assessment & Plan (1) Renal cell carcinoma: Code(s): C64.9 - Malignant neoplasm of unspecified kidney, except renal pelvis Category: Medical (2) Chronic idiopathic constipation: Code(s): K59.04 - Chronic idiopathic constipation Category: Medical (3) GERD (gastroesophageal reflux disease): Code(s): K21.9 - Gastro-esophageal reflux disease without esophagitis Category: Medical Qualifiers: Esophagitis presence: without esophagitis Qualified Code(s): K21.9 - Gastro-esophageal reflux disease without esophagitis (4) Gastroparesis: Code(s): K31.84 - Gastroparesis Category: Medical (5) Gastritis: Code(s): K29.70 - Gastritis, unspecified, without bleeding Category: Medical Plan She never received the famotidine, she DOES have the lansoprazole but this has not helped the epigastric pain. SHE HAS NOT HEARD ANYTHING IN R/T HER IR PROCEDURE TO CLARIFY HER RCC DX!! This is a roadblock for the pt becasue I can't proceed with any GI workup until this more complex process is clarified. It appears that the order for the desired procedure is not in the computer. I have addressed this and spoken to radiology to speak directly with IR and get her procedure urgently performed. Also referring to oncology and nephrology. ROV 4 weeks. Bring all medications. Orders: Orders IR Embolization Tumor 06/14/24 C64.9 - Malignant neoplasm of unspecified kidney, except renal pelvis Referrals Interventional Radiology Referral C64.9 - Malignant neoplasm of unspecified kidney, except renal pelvis Hematology & Oncology Referral C64.9 - Malignant neoplasm of unspecified kidney, except renal pelvis Nephrology Referral C64.9 - Malignant neoplasm of unspecified kidney, except renal pelvis Vascular Surgery Referral C64.9 - Malignant neoplasm of unspecified kidney, except renal pelvis Medications: New famotidine (Pepcid) 40 mg PO BEDTIME 30 tabs 6RF K29.70 - Gastritis, unspecified, without bleeding Coding Level of Care Code Est Pt Level 4 (55241) Diagnoses Renal cell carcinoma C64.9 Chronic idiopathic constipation K59.04 Gastroesophageal reflux disease without esophagitis K21.9 Esophagitis presence: without esophagitis Gastroparesis K31.84 Gastritis K29.70 Time Spent (min) 38
== END 2024-06-13 15:53 | disposition home or self-care (01) ==
LOC: HO.HGI 14:40
PROVIDERS: PCP Internal Medicine; Visit Provider Nurse Practitioner
DX: C64.9 Malignant neoplasm of unspecified kidney, except renal pelvis (principal); K59.04 Chronic idiopathic constipation; K21.9 Gastro-esophageal reflux disease without esophagitis; K31.84 Gastroparesis; K29.70 Gastritis, unspecified, without bleeding
CPT/HCPCS: 99214

== ENCOUNTER → 2024-06-13 14:40 | Outpatient (BNVA) | payer OTHER, SELFPAY | PROVIDERS: PCP Internal Medicine; Visit Provider Nurse Practitioner ==

== ENCOUNTER 2024-06-15 10:32 | Emergency (ER) | payer OTHER, SELFPAY ==
[2024-06-15] VITALS (7 sets, daily range): BP systolic 121–146; BP diastolic 60–77; PULSE 93–100; RESP 18–23; TEMP 36.4–37.1; O2SAT 93–98; BMI 24.7
--- NOTE | ~2024-06-15 | XR_ITS ---
EXAMINATION: XR CHEST CLINICAL INFORMATION: Dyspnea. COMPARISON: 06/06/2024, 05/30/2024. TECHNIQUE: PA view of the chest was obtained. FINDINGS: The cardiac, hilar, and mediastinal contours appear normal. Mildly prominent pulmonary arteries in the hilar regions. This may be a projectional phenomenon. Aside from mild scarring or atelectasis in the right base, the lungs are clear bilaterally. There is no effusion or pneumothorax. Mild levoconvex cervicothoracic scoliosis. Prior anterior fusion C5-[address] No soft tissue abnormality. XR/XR chest 1V IMPRESSION: No active disease. Electronically signed by: Rui Lomax MD 06/15/2024 12:42 PM EDT
--- NOTE | 2024-06-15 10:57 | ECG_ITS ---
Test Reason : sob Blood Pressure : / mmHG Vent. Rate : 104 BPM Atrial Rate : 104 BPM P-R Int : 116 ms QRS Dur : 088 ms QT Int : 384 ms P-R-T Axes : 074 079 -10 degrees QTc Int : 504 ms Sinus tachycardia Possible Left atrial enlargement Nonspecific ST and T wave abnormality Abnormal ECG When compared with ECG of 09-JUN-2024 19:12, Nonspecific T wave abnormality, worse in Inferior leads QT has lengthened Referred By: Generic ED Physician Electronically Signed By:SHANKAR GARCIA
[2024-06-15 11:16] LABS: MANUAL DIFF FLAG NO
[2024-06-15 11:21] LABS: Basophils Absolute Auto 0.1 X10*3/uL (0.0-0.2); Basophils Percent Auto 0.3 % (0-2); Eosinophils Absolute Auto 0.1 X10*3/uL (0.0-0.4); Eosinophils Percent Auto 0.3 % (0-4); Hematocrit 40.9 % (37.0-47.0); Hemoglobin 12.1 g/dl (12.0-16.0); Imm Gran Abs Auto 0.14 X10*3/uL (0.00-0.03); Imm Gran Pct Auto 0.9 % (0.0-0.4); Lymphocytes Absolute Auto 2.8 X10*3/uL (1.2-4.9); Lymphocytes Percent Auto 18.8 % (20-40); Mean Corpuscular HGB Conc 29.6 g/dl (31.0-35.0); Mean Corpuscular Hemoglobin 25.1 pg (27.0-33.0); Mean Corpuscular Volume 84.7 fL (80.0-98.0); Mean Platelet Volume 9.8 fL (9.4-12.3); Monocytes Absolute Auto 0.8 X10*3/uL (0.1-1.2); Monocytes Percent Auto 5.4 % (2-11); Neutrophils Absolute Auto 11.2 x10*3/uL (2.0-8.3); Neutrophils Percent Auto 74.3 % (45-73); Platelet Count 306 X10*3/uL (160-400); Red Blood Count 4.83 X10*6/uL (4.20-5.50); Red Cell Distribution Width 19.4 % (11.0-16.0); White Blood Count 15.1 X10*3/uL (4.8-10.8)
[2024-06-15 11:35] LABS: Anion Gap 12 (12-20); Blood Urea Nitrogen 7 mg/dL (9-16); Calcium 10.7 mg/dL (8.4-10.2); Carbon Dioxide 35 mmol/L (22-29); Chloride 99 mmol/L (96-108); Creatinine Clr Calc Pharmacy 84.8; Estimated Glomerular Filt Rate > 60; Glucose Random 155 mg/dL (60-115); Potassium 2.9 mmol/L (3.3-5.1); Sodium 143 mmol/L (135-145)
[2024-06-15 11:38] LABS: Troponin-I High Sensitivity 6.5 ng/L (<3.5-17.0)
--- NOTE | 2024-06-15 17:11 | ED.SOB ---
HPI - SOB/Dyspnea General Chief Complaint: Dyspnea Stated Complaint: sob Time Seen by Provider: 06/15/24 17:10 Source: patient and RN notes reviewed Mode of arrival: ambulatory Limitations: no limitations History of Present Illness ED Provider: Gena Mcgarry PA-C HPI Narrative: This is a 64-year-old female, with past medical history of COPD on home oxygen 2 L, type 2 diabetes, hypertension, hyperlipidemia, who presents emergency department with complaints of shortness of breath since today. Patient states that her shortness for breath just started today. Patient reports that she has a history of COPD and often times gets shortness of breath. She states that she has updrafts at home however states that when she started to feel her symptoms instead of using her updraft she decided to come to the emergency room instead. She denies any recent fevers, chills, chest pain, abdominal pain, nausea, vomiting or diarrhea. She is asking for soda. She is speaking in full sentences. Patient was recently seen in the emergency department on June 06 for bronchitis and was discharged on prednisone for 5 days and doxycycline 100 mg twice a day for 7 days. She was recently admitted for COPD exacerbation and acute on chronic respiratory failure from May 30 through June 01. No other complaints or concerns at this time. MD elicited complaint: cough Related Data Home oxygen amount: 2 liters Home Medications ?Medication ?Instructions ?Recorded ?Confirmed aspirin 81 mg tablet,delayed 81 mg PO BEDTIME 01/10/21 05/30/24 release (Adult Low Dose Aspirin) umeclidinium 62.5 mcg/actuation 1 inh inhalation DAILY 03/31/21 05/30/24 blister powder for inhalation albuterol sulfate 2.5 mg/3 mL 2.5 mg inhalation Q6H PRN wheezing 08/02/23 05/30/24 (0.083 %) solution for nebulization psyllium husk 0.52 gram capsule 1.04 g PO BID Constipation 02/28/24 05/30/24 (Fiber Laxative (psyllium husk)) baclofen 10 mg tablet 10 mg PO TID 05/06/24 05/30/24 metformin 1,000 mg tablet 1,000 mg PO BID 05/06/24 05/30/24 lansoprazole 30 mg capsule,delayed 30 mg PO DAILY@0630 05/21/24 05/30/24 release acetaminophen 650 mg 650 mg PO TID PRN Pain 05/30/24 05/30/24 tablet,extended release ferrous sulfate 324 mg (65 mg 324 mg PO DAILY 05/30/24 05/30/24 iron) tablet,delayed release linaclotide 145 mcg capsule 145 mcg PO DAILY 05/30/24 05/30/24 (Linzess) nicotine 14 mg/24 hr daily 1 patch topical DAILY 05/30/24 05/30/24 transdermal patch fluticasone furoate 100 1 inh inhalation DAILY 06/13/24 mcg/actuation blister powder for inhalation (Arnuity Ellipta) Previous Rx's ?Medication ?Instructions ?Recorded blood-glucose meter (FreeStyle #1 ea 10/03/21 Lite Meter kit) lancets 28 gauge (FreeStyle #100 ea 01/06/22 Lancets) FreeStyle Lite Strips (blood sugar #100 ea 03/10/22 diagnostic) flash glucose sensor (FreeStyle #6 ea 02/19/23 Cristian 2 Sensor kit) flash glucose scanning reader #1 ea 03/26/23 (FreeStyle Cristian 2 [place]) losartan 50 mg tablet 50 mg PO DAILY #90 tabs 10/10/23 cholecalciferol (vitamin D3) 50 50 mcg PO DAILY #90 caps 11/22/23 mcg (2,000 unit) capsule sitagliptin phosphate 100 mg 100 mg PO DAILY #90 tabs 11/22/23 tablet (Januvia) rosuvastatin 5 mg tablet 5 mg PO DAILY #90 tabs 12/01/23 gabapentin 800 mg tablet 800 mg PO TID 30 days #90 tabs 01/26/24 amlodipine 5 mg tablet 5 mg PO DAILY #90 tabs 03/20/24 metoclopramide HCl 10 mg tablet 10 mg PO TID #90 tabs 05/11/24 magnesium oxide 400 mg (241.3 mg 400 mg PO DAILY #7 tabs 06/01/24 magnesium) tablet doxycycline hyclate 100 mg tablet 100 mg PO Q12H 7 days #14 tabs 06/06/24 famotidine 40 mg tablet (Pepcid) 40 mg PO BEDTIME #30 tabs 06/13/24 azithromycin 250 mg tablet 250 mg PO DAILY 4 days #4 tabs 06/15/24 prednisone 10 mg tablet 10 mg PO DIRECTED #29 tabs 06/15/24 Allergies Allergy/AdvReac Type Severity Reaction Status Date / Time amoxicillin [AMOXICILLIN] Allergy Intermediate RASH Verified 06/15/24 10:56 Review of Systems Review of Systems: Yes all other systems are reviewed and are negative Constitutional: Constitutional: Reports as per [facility] Past Medical History Attestation statement: The following information was validated with the patient. Medical History Gastritis Gastroparesis COPD (chronic obstructive pulmonary disease) Shortness of breath Hypochromic anemia COPD (chronic obstructive pulmonary disease) Type 2 diabetes mellitus without complication, with no history of insulin use Heavy cigarette smoker Acute on chronic hypoxic respiratory failure Diabetic gastroparesis COPD (chronic obstructive pulmonary disease) Mixed dyslipidemia Essential hypertension GERD (gastroesophageal reflux disease) Diastolic CHF with preserved left ventricular function, NYHA class 2 Chronic hypercapnic respiratory failure Type 2 diabetes mellitus with other diabetic kidney complication Type 2 diabetes mellitus without complication, with no history of insulin use Smoker unmotivated to quit Postlaminectomy syndrome of cervical region Seasonal allergic rhinitis Degenerative disc disease, cervical Postmenopause Dyslipidemia Surgical History H/O cervical discectomy History of esophagogastroduodenoscopy (EGD) Hx of colonoscopy Family History Family History Mother Diabetes Sister Diabetes Mental health disorder Brother Diabetes Father HTN (hypertension) Social History Social History Household Members: Significant Other Housing: Other Housing Other:: mobile home Do you presently have visiting nurse or other home services: Yes (1x/week, for housecleaning) Alcohol intake: former Comment: Commode/ Hi Flow O2 Patient Tobacco Use Status: Current everyday Tobacco user Tobacco use type: Cigarette Cigarette Packs Per Day: 1 Cigarettes Per Day: 20 Years Smoked: 50 Smoked in Last 30 Days: Yes e-Cigarette/Vaping Use: Never Used Second Hand Smoke Exposure: Yes Use of substances other than those prescribed or required for medical reasons: No Advance Directives: Yes Advance Directives on File: Yes Advance Directives Date on File: 08/02/23 Do you have a plan to hurt others: No Plan Patient : No service: No Current occupational status: unemployed Cognitive needs: No Hearing needs: No Vision needs: Yes Physical Exam Vital Signs: Vital Signs: Last Vital Signs Temp 98.7 F 06/15/24 22:12 Pulse 93 06/15/24 22:12 Resp 23 H 06/15/24 22:12 BP 135/60 06/15/24 22:12 Pulse Ox 96 06/15/24 22:12 O2 Del Method Nasal Cannula 06/15/24 22:12 O2 Flow Rate 2 06/15/24 22:12 Oxygen Flow Rate 2 06/15/24 16:44 BMI result Body Mass Index 24.7 Const: General: cooperative, comfortable and no acute distress Orientation/consciousness: patient oriented x3 Limitations: no limitations HEENT: Head: Yes normal to inspection, Yes normocephalic and Yes atraumatic Ears: hearing grossly normal bilaterally General nose exam: Normal external nose present Face and sinus: Yes normal facial exam Mouth: Normal oral and palatal mucosa present, oropharynx normal and moist mucous membranes Throat: Yes posterior oropharynx normal Eyes: General: appearance normal, both eyes and all related structures Eyelids: Yes eyelids normal Conjunctivae: conjunctivae normal Sclerae: sclerae normal Pupils: Equal, round and reactive pupils present EOM: EOMs intact bilaterally Neck: Neck: Yes normal visual inspection, Yes full ROM and Yes no lymphadenopathy Lymphatic: no lymphadenopathy noted Chest: Chest palpation & inspection: normal inspection of the chest Resp: Other: Prolonged expiratory phase wheezing noted Effort & Inspection: normal respiratory effort and able to speak in complete sentences Cardio: Rate: regular rate Rhythm: regular rhythm Heart sounds: S1 normal heart sound present and S2 normal heart sound present GI: Inspection: Yes normal to inspection Skin: General skin exam: no rashes or lesions noted Trauma: no lacerations or abrasions Wounds: no wounds Neuro: General: patient oriented x3 and moves all extremities Cranial nerves: Yes Equal, round and reactive pupils present Extrem: General: Yes normal to inspection Right upper extremity: normal to inspection Left upper extremity: normal to inspection Right lower extremity: normal to inspection Left lower extremity: normal to inspection Course Reevaluation(s) Reevaluation #1: Patient re-evaluated, feeling much better after receiving updraft. Time: 21:35 Reevaluation #2: Patient was seen and evaluated by my attending physician, Dr. Cruz. Recommending. Patient is feeling well enough and would like to be discharged home. Given that her oxygen saturation is within normal limits on her normal nasal cannula, she is speaking in full sentences under no acute distress, I believe that this is appropriate however given strict return precautions. Second troponin, awaiting for this. We will treat with antibiotics. Time: 22:05 Reevaluation #3: Second troponin flat. Patient currently receiving medications, she is feeling well and would like to be discharged home. Patient will be discharged home after completion of infusion of IV Solu-Medrol and magnesium. Time: 22:25 Medications Administered Discontinued Medications Generic Name Dose Route Start Last Admin Trade Name Arnaldoq PRN Reason Stop Dose Admin Azithromycin 500 mg 06/15/24 21:53 06/15/24 22:13 Azithromycin 500 Mg Tablet PO 06/15/24 21:54 500 mg ONCE ONE Administration Ceftriaxone Sodium 1 gm 06/15/24 21:53 06/15/24 22:13 Ceftriaxone Sodium 1 Gm Vial IVPUSH 06/15/24 21:54 1 gm ONCE ONE Administration Albuterol Sulfate 2.5 mg/ 0 mg 06/15/24 17:50 06/15/24 17:55 Albuterol/Ipratropium 3 ml INHALE 06/15/24 17:51 5 dose ONCE ONE Administration Magnesium Sulfate 2 gm in 50 mls @ 150 mls/hr 06/15/24 21:50 06/15/24 22:14 Magnesium Sulfate/H2o IV 06/15/24 22:09 150 mls/hr ONCE ONE Administration Methylprednisolone Sodium Succinate 125 mg 06/15/24 21:50 06/15/24 22:13 Methylprednisolone Sod Succ 125 Mg/2 Ml Vial IVPUSH 06/15/24 21:51 125 mg ONCE ONE Administration Potassium Chloride 40 meq 06/15/24 21:05 06/15/24 21:12 Potassium Chloride Er 20 Meq Tab.Er.Prt PO 06/15/24 21:06 40 meq ONCE ONE Administration Medical Decision Making Medical Decision Making MDM Narrative: This is a 64-year-old female who presents emergency department with complaints of shortness for breath which occurred today. Patient states that instead of using her updraft at home she decided to come to the emergency room for evaluation. She was recently seen in the emergency room on June 09 where she was discharged advising to continue all at-home medications. She was also seen on June 06, 2024 for similar presentation, and was discharged on doxycycline and prednisone 60 mg for 5 days. She completed these medications. She has had no increased sputum production. No fevers. No chest pain. She states that her shortness for breath is not worse than her typical shortness for breath that she receives. She currently is still smoking. She states that she smokes a pack per day. On arrival, oxygen saturation 93% on 2 L nasal cannula. She is chronically on 2 L nasal cannula. Oxygen saturation within normal limits. Hesitant to administer prednisone as patient has been on prednisone. She also has been on doxycycline and azithromycin over the course of the last month. She has had no increase of sputum production or fevers to suggest acute bronchitis Plan: Labs, chest x-ray, ED bronch protocol Differential Diagnosis Differential Diagnoses: The differential diagnosis associated with the presentation includes COPD exacerbation, bronchitis, pneumonia, URI Admission/Observation Consideration of admission/observation: Escalation of care including admission/observation considered Lab Data MDM Lab Attestation statement: I reviewed the patient's lab results. Leukocytosis at 15.1, however patient is chronically elevated, recent prednisone use. Hypokalemia at 2.9, troponin 6.5. 06/15/24 11:11 06/15/24 11:11 Labs: Lab Results 06/15/24 06/15/24 Range/Units 11:11 21:58 WBC 15.1 H (4.8-10.8) X10*3/uL RBC 4.83 (4.20-5.50) X10*6/uL Hgb 12.1 (12.0-16.0) g/dl Hct 40.9 (37.0-47.0) % MCV 84.7 (80.0-98.0) fL MCH 25.1 L (27.0-33.0) pg MCHC 29.6 L (31.0-35.0) g/dl RDW 19.4 H (11.0-16.0) % Plt Count 306 (160-400) X10*3/uL MPV 9.8 (9.4-12.3) fL Immature Gran % (Auto) 0.9 H (0.0-0.4) % Neut % (Auto) 74.3 H (45-73) % Lymph % (Auto) 18.8 L (20-40) % [place] % (Auto) 5.4 (2-11) % Eos % (Auto) 0.3 (0-4) % Baso % (Auto) 0.3 (0-2) % Lymph # (Auto) 2.8 (1.2-4.9) X10*3/uL [place] # (Auto) 0.8 (0.1-1.2) X10*3/uL Eos # (Auto) 0.1 (0.0-0.4) X10*3/uL Baso # (Auto) 0.1 (0.0-0.2) X10*3/uL Abs Immat Gran (auto) 0.14 H (0.00-0.03) X10*3/uL Absolute Neuts (auto) 11.2 H (2.0-8.3) x10*3/uL Absolute Nucleated RBC 0.000 (0.0-0.012) X10*3/uL Nucleated RBC % (auto) 0.0 (0.0-0.2) /100WBC Sodium 143 (135-145) mmol/L Potassium 2.9 L* (3.3-5.1) mmol/L Chloride 99 (96-108) mmol/L Carbon Dioxide 35 H (22-29) mmol/L Anion Gap 12 (12-20) BUN 7 L (9-16) mg/dL Creatinine 0.47 L (0.5-1.4) mg/dL Estim Creat Clear Calc 84.8 Estimated GFR > 60 Random Glucose 155 H (60-115) mg/dL Calcium 10.7 H (8.4-10.2) mg/dL Troponin I High Sens 6.5 6.8 (<3.5-17.0) ng/L Independent Interpretation I performed an independent interpretation of an: EKG Interpretation: EKG sinus tachycardia at 104BPM, QT 384, QTC 504, slight ST depression seen in V4 through V6 Radiology Impression Discussion of test interpretation with radiology: I have reviewed the radiologist's reading. Radiologist Impression: EXAMINATION: XR CHEST CLINICAL INFORMATION: Dyspnea. COMPARISON: 06/06/2024, 05/30/2024. TECHNIQUE: PA view of the chest was obtained. FINDINGS: The cardiac, hilar, and mediastinal contours appear normal. Mildly prominent pulmonary arteries in the hilar regions. This may be a projectional phenomenon. Aside from mild scarring or atelectasis in the right base, the lungs are clear bilaterally. There is no effusion or pneumothorax. Mild levoconvex cervicothoracic scoliosis. Prior anterior fusion C5-[address] No soft tissue abnormality. XR/XR chest 1V IMPRESSION: No active disease. Electronically signed by: Rui Lomax MD 06/15/2024 12:42 PM EDT Dictated By: Rui Lomax MD Chronic Conditions Patient?s care impacted by: Diabetes and Other (COPD) Critical Care Time Critical Care Time Critical Care Time: Yes Total Critical Care Time: 35 Attestation: I have personally provided critical care time exclusive of time spent on separately billable procedures. Time includes review of lab data, radiology results, discussion with consultants, and monitoring for potential decompensation. Intervention performed as documented. Discharge Plan Discharge Clinical Impression: COPD exacerbation Patient Disposition: Still a Patient Additional Instructions: You were seen in the emergency department due to shortness of breath. You need to use your updrafts as directed. Please take prescribed medications as directed, finish the entire course even if your symptoms improve. If any new or worsening symptoms occur including but not limited to chest pain, worsening shortness of breath, please seek emergent care. Prescriptions: New prednisone 10 mg tablet 10 mg PO DIRECTED Qty: 29 0RF Rx Instructions: see taper instructions 40 mg orally x 3 days, 30mg x 3 days, 20mg x 3 days, 10mg x 2 days (start 06/16) azithromycin 250 mg tablet 250 mg PO DAILY 4 Days Qty: 4 0RF Rx Instructions: start on day 2 of therapy No Action (DME) lancets [FreeStyle Lancets] 28 gauge misc See Rx Instructions .Route Qty: 100 5RF Rx Instructions: As directed twice a day AC (DME) FreeStyle Lite Strips Strip See Rx Instructions .Route Qty: 100 0RF Rx Instructions: check fasting blood sugar twice a day before meals (DME) FreeStyle Cristian 2 Sensor Kit See Rx Instructions .Route Qty: 6 3RF Rx Instructions: Test blood sugar 4 times per day (DME) FreeStyle Cristian 2 [place] Misc See Rx Instructions .Route Qty: 1 0RF Rx Instructions: test blood sugar 4 times per day losartan 50 mg tablet 50 mg PO DAILY Qty: 90 1RF Januvia 100 mg tablet 100 mg PO DAILY Qty: 90 1RF cholecalciferol (vitamin D3) 50 mcg (2,000 unit) capsule 50 mcg PO DAILY Qty: 90 1RF rosuvastatin 5 mg tablet 5 mg PO DAILY Qty: 90 1RF gabapentin 800 mg tablet 800 mg PO TID 30 Days Qty: 90 6RF amlodipine 5 mg tablet 5 mg PO DAILY Qty: 90 0RF metoclopramide HCl 10 mg tablet 10 mg PO TID Qty: 90 6RF albuterol sulfate 2.5 mg /3 mL (0.083 %) solution for nebulization 2.5 mg inhalation Q6H PRN (Reason: wheezing) psyllium husk [Fiber Laxative (psyllium husk)] 0.52 gram capsule 1.04 g PO BID baclofen 10 mg tablet 10 mg PO TID metformin 1,000 mg tablet 1,000 mg PO BID lansoprazole 30 mg capsule,delayed release(DR/EC) 30 mg PO DAILY@0630 doxycycline hyclate 100 mg tablet 100 mg PO Q12H 7 Days Qty: 14 0RF acetaminophen 650 mg Tablet Extended Release 650 mg PO TID PRN (Reason: Pain) ferrous sulfate 324 mg (65 mg iron) tablet,delayed release (DR/EC) 324 mg PO DAILY nicotine 14 mg/24 hr patch 24 hour 1 patch topical DAILY Linzess 145 mcg capsule 145 mcg PO DAILY magnesium oxide 400 mg (241.3 mg magnesium) Tablet 400 mg PO DAILY Qty: 7 0RF umeclidinium 62.5 mcg/actuation blister with device 1 inh inhalation DAILY Rx Instructions: Encruse aspirin [Adult Low Dose Aspirin] 81 mg tablet,delayed release (DR/EC) 81 mg PO BEDTIME (DME) blood-glucose meter [FreeStyle Lite Meter] Kit See Rx Instructions .Route Qty: 1 0RF Rx Instructions: As directed twice a day before meals Arnuity Ellipta 100 mcg/actuation blister with device 1 inh inhalation DAILY famotidine [Pepcid] 40 mg tablet 40 mg PO BEDTIME Qty: 30 6RF Print Language: Latvian
[2024-06-15] MEDS: Albuterol Sulfate 2.5 MG, Albuterol/Iprat 2.5/0.5MG 3 ML 3 ML INHALE (17:55)
--- NOTE | 2024-06-15 19:09 | PC.NURSE ---
report received from Eliza Irwin RN, assume care of pt at this time
[2024-06-15] MEDS: Potassium Chloride ER 20 MEQ TAB.ER.PRT 40 MEQ PO (21:12)
[2024-06-15] MEDS: cefTRIAXone sodium 1 GM VIAL IVPUSH (22:13)
[2024-06-15] MEDS: Azithromycin 500 MG TABLET PO (22:13)
[2024-06-15] MEDS: methylPREDNISolone Sod Succ 125 MG/2 ML VIAL IVPUSH (22:13)
[2024-06-15] MEDS: Magnesium Sulfate/H2O 2 GM/50 ML PIGGYBACK IV (22:14)
[2024-06-15 22:21] LABS: Troponin-I High Sensitivity 6.8 ng/L (<3.5-17.0)
--- NOTE | 2024-06-15 23:07 | PC.NURSE ---
report given to Maura HERRERA
== END 2024-06-15 23:24 | disposition home or self-care (01) ==
PROVIDERS: Physician Assistant Medical; Emergency Provider Emergency Medicine; PCP Internal Medicine
DX: J44.1 Chronic obstructive pulmonary disease with (acute) exacerbation (principal); R06.02 Shortness of breath; I10 Essential (primary) hypertension; E78.5 Hyperlipidemia, unspecified; E11.9 Type 2 diabetes mellitus without complications; Z99.81 Dependence on supplemental oxygen; Z79.899 Other long term (current) drug therapy
CPT/HCPCS: 36415; 71045; 80048; 84484; 85025; 93005; 94640; 96365; 96375; 99284; 99285; J0696; J2919; J3475

== ENCOUNTER → 2024-06-15 10:57 | Outpatient (BNV) | payer OTHER, SELFPAY | PROVIDERS: Emergency Provider Emergency Medicine; PCP Internal Medicine; Visit Provider Internal Medicine | DX: R94.31 Abnormal electrocardiogram [ECG] [EKG] (principal) | CPT/HCPCS: 93010 ==

== ENCOUNTER → 2024-06-15 10:57 | Outpatient (BNV) | payer OTHER, SELFPAY | PROVIDERS: PCP Internal Medicine; Visit Provider Radiology Diagnostic Radiology | DX: R06.02 Shortness of breath (principal) | CPT/HCPCS: 71045 ==

== ENCOUNTER 2024-06-18 16:54 | Emergency (ER) | payer OTHER, SELFPAY ==
--- NOTE | ~2024-06-18 | XR_ITS ---
EXAMINATION: XR CHEST CLINICAL INFORMATION: Shortness of breath COMPARISON: Chest x-ray on 06/15/2024 TECHNIQUE: Frontal view of the chest was obtained. FINDINGS: No significant abnormality is noted involving the heart, lungs, mediastinum, bony thorax or soft tissues. XR/XR chest 1V IMPRESSION: Unremarkable examination. Electronically signed by: Ryanne Ordonez MD 06/18/2024 05:51 PM [facility]
[2024-06-18 17:01] VITALS: BP 140/74; PULSE 96; RESP 20; TEMP 36.8; O2SAT 85; BMI 23.4
--- NOTE | 2024-06-18 17:09 | ECG_ITS ---
Test Reason : sob Blood Pressure : / mmHG Vent. Rate : 097 BPM Atrial Rate : 097 BPM P-R Int : 124 ms QRS Dur : 078 ms QT Int : 360 ms P-R-T Axes : 076 083 058 degrees QTc Int : 457 ms Sinus rhythm with Premature atrial complexes Nonspecific ST abnormality Abnormal ECG When compared with ECG of 15-JUN-2024 10:57, Premature atrial complexes are now Present Nonspecific T wave abnormality, improved in Inferior leads Referred By: Gena Mcgarry Electronically Signed By:YOHAN PATEL MD
[2024-06-18 17:21] VITALS: BP 178/57; PULSE 95; RESP 24; O2SAT 94
[2024-06-18 17:26] LABS: Venous Blood Gas Refer to POC result
[2024-06-18 17:26] LABS: VBG Base Excess 13.7 mmol/L; VBG HCO3 37 mmol/L (22-26); VBG pCO2 41 mmHg; VBG pH 7.55 (7.32-7.43); VBG pO2 125 mmHg
[2024-06-18 17:29] LABS: INTERNATIONAL NORM RATIO 0.9 (0.9-1.1); Prothrombin Time 10.9 SEC (10.9-12.4)
[2024-06-18 17:37] LABS: Basophils Percent Auto 0.3 % (0-2); Eosinophils Percent Auto 0.2 % (0-4); Hematocrit 39.3 % (37.0-47.0); Hemoglobin 11.9 g/dl (12.0-16.0); Imm Gran Abs Auto 0.07 X10*3/uL (0.00-0.03); Imm Gran Pct Auto 0.6 % (0.0-0.4); Lymphocytes Absolute Auto 0.6 X10*3/uL (1.2-4.9); Lymphocytes Percent Auto 4.9 % (20-40); MANUAL DIFF FLAG SCAN; Mean Corpuscular HGB Conc 30.3 g/dl (31.0-35.0); Mean Corpuscular Hemoglobin 25.7 pg (27.0-33.0); Mean Corpuscular Volume 84.9 fL (80.0-98.0); Mean Platelet Volume 9.6 fL (9.4-12.3); Monocytes Absolute Auto 0.3 X10*3/uL (0.1-1.2); Monocytes Percent Auto 2.1 % (2-11); Neutrophils Absolute Auto 11.2 x10*3/uL (2.0-8.3); Neutrophils Percent Auto 91.9 % (45-73); Platelet Count 256 X10*3/uL (160-400); Red Blood Count 4.63 X10*6/uL (4.20-5.50); Red Cell Distribution Width 19.2 % (11.0-16.0); SCAN SMEAR FLAG 1; White Blood Count 12.2 X10*3/uL (4.8-10.8)
[2024-06-18] MEDS: Albuterol Sulfate 2.5 MG, Albuterol/Iprat 2.5/0.5MG 3 ML 3 ML INHALE (17:38)
[2024-06-18 17:39] VITALS: PULSE 97; RESP 20; O2SAT 94
--- NOTE | 2024-06-18 17:40 | ED_ITS ---
HPI - SOB/Dyspnea General Chief Complaint: Dyspnea Stated Complaint: diff breathing Time Seen by Provider: 06/18/24 17:13 History of Present Illness ED Provider: jess HPI Narrative: 64 F with chronic COPD 2L NC baseline at home. pred and azithro 4 d ago. Wheeze, BARON at home. No CP Related Data Home Medications ?Medication ?Instructions ?Recorded ?Confirmed aspirin 81 mg tablet,delayed 81 mg PO BEDTIME 01/10/21 05/30/24 release (Adult Low Dose Aspirin) umeclidinium 62.5 mcg/actuation 1 inh inhalation DAILY 03/31/21 05/30/24 blister powder for inhalation albuterol sulfate 2.5 mg/3 mL 2.5 mg inhalation Q6H PRN wheezing 08/02/23 05/30/24 (0.083 %) solution for nebulization psyllium husk 0.52 gram capsule 1.04 g PO BID Constipation 02/28/24 05/30/24 (Fiber Laxative (psyllium husk)) baclofen 10 mg tablet 10 mg PO TID 05/06/24 05/30/24 metformin 1,000 mg tablet 1,000 mg PO BID 05/06/24 05/30/24 lansoprazole 30 mg capsule,delayed 30 mg PO DAILY@0630 05/21/24 05/30/24 release acetaminophen 650 mg 650 mg PO TID PRN Pain 05/30/24 05/30/24 tablet,extended release ferrous sulfate 324 mg (65 mg 324 mg PO DAILY 05/30/24 05/30/24 iron) tablet,delayed release linaclotide 145 mcg capsule 145 mcg PO DAILY 05/30/24 05/30/24 (Linzess) nicotine 14 mg/24 hr daily 1 patch topical DAILY 05/30/24 05/30/24 transdermal patch fluticasone furoate 100 1 inh inhalation DAILY 06/13/24 mcg/actuation blister powder for inhalation (Arnuity Ellipta) Previous Rx's ?Medication ?Instructions ?Recorded blood-glucose meter (FreeStyle #1 ea 10/03/21 Lite Meter kit) lancets 28 gauge (FreeStyle #100 ea 01/06/22 Lancets) FreeStyle Lite Strips (blood sugar #100 ea 03/10/22 diagnostic) flash glucose sensor (FreeStyle #6 ea 02/19/23 Cristian 2 Sensor kit) flash glucose scanning reader #1 ea 03/26/23 (FreeStyle Cristian 2 [place]) losartan 50 mg tablet 50 mg PO DAILY #90 tabs 10/10/23 cholecalciferol (vitamin D3) 50 50 mcg PO DAILY #90 caps 11/22/23 mcg (2,000 unit) capsule sitagliptin phosphate 100 mg 100 mg PO DAILY #90 tabs 11/22/23 tablet (Januvia) rosuvastatin 5 mg tablet 5 mg PO DAILY #90 tabs 12/01/23 gabapentin 800 mg tablet 800 mg PO TID 30 days #90 tabs 01/26/24 amlodipine 5 mg tablet 5 mg PO DAILY #90 tabs 03/20/24 metoclopramide HCl 10 mg tablet 10 mg PO TID #90 tabs 05/11/24 magnesium oxide 400 mg (241.3 mg 400 mg PO DAILY #7 tabs 06/01/24 magnesium) tablet doxycycline hyclate 100 mg tablet 100 mg PO Q12H 7 days #14 tabs 06/06/24 famotidine 40 mg tablet (Pepcid) 40 mg PO BEDTIME #30 tabs 06/13/24 azithromycin 250 mg tablet 250 mg PO DAILY 4 days #4 tabs 06/15/24 prednisone 10 mg tablet 10 mg PO DIRECTED #29 tabs 06/15/24 Allergies Allergy/AdvReac Type Severity Reaction Status Date / Time amoxicillin [AMOXICILLIN] Allergy Intermediate RASH Verified 06/18/24 17:03 [facility] Past Medical History Medical History Gastritis Gastroparesis COPD (chronic obstructive pulmonary disease) Shortness of breath Hypochromic anemia COPD (chronic obstructive pulmonary disease) Type 2 diabetes mellitus without complication, with no history of insulin use Heavy cigarette smoker Acute on chronic hypoxic respiratory failure Diabetic gastroparesis COPD (chronic obstructive pulmonary disease) Mixed dyslipidemia Essential hypertension GERD (gastroesophageal reflux disease) Diastolic CHF with preserved left ventricular function, NYHA class 2 Chronic hypercapnic respiratory failure Type 2 diabetes mellitus with other diabetic kidney complication Type 2 diabetes mellitus without complication, with no history of insulin use Smoker unmotivated to quit Postlaminectomy syndrome of cervical region Seasonal allergic rhinitis Degenerative disc disease, cervical Postmenopause Dyslipidemia Surgical History H/O cervical discectomy History of esophagogastroduodenoscopy (EGD) Hx of colonoscopy Family History Family History Mother Diabetes Sister Diabetes Mental health disorder Brother Diabetes Father HTN (hypertension) Social History Social History Household Members: Significant Other Housing: Other Housing Other:: mobile home Do you presently have visiting nurse or other home services: Yes (1x/week, for housecleaning) Alcohol intake: former Comment: Commode/ Hi Flow O2 Patient Tobacco Use Status: Current everyday Tobacco user Tobacco use type: Cigarette Cigarette Packs Per Day: 1 Cigarettes Per Day: 20 Years Smoked: 50 e-Cigarette/Vaping Use: Never Used Second Hand Smoke Exposure: Yes Advance Directives: Yes Advance Directives on File: Yes Advance Directives Date on File: 08/02/23 Do you have a plan to hurt others: No Plan service: No Current occupational status: unemployed Cognitive needs: No Hearing needs: No Vision needs: Yes Physical Exam 2 Vital Signs: Vital Signs: Last Vital Signs Temp 98.5 F 06/18/24 20:14 Pulse 88 06/18/24 20:14 Resp 20 06/18/24 20:14 BP 138/79 06/18/24 20:14 Pulse Ox 91 L 06/18/24 20:14 O2 Del Method Nasal Cannula 06/18/24 20:14 O2 Flow Rate 2 06/18/24 20:14 BMI result Body Mass Index 23.4 Const: Other: EXAM: Gen: Alert, awake, well appearing, well hydrated. Head: Atraumatic Eyes: Anicteric, Normal conjunctiva. ENT: Moist mucosa, no pallor. Neck: Supple. Respiratory:Mild tachypnea RR 24, scant exp wheezing. No focal rales. No access muscle use. Cardiovascular: Regular rate and rhythm. No murmurs or rub. Well perfused periphery, warm extremities. No edema. Abdominal: Soft, no objective distension. No palpable masses or obvious organomegaly. No focal tenderness, no guarding, no rebound tenderness or other peritoneal findings. : No flank tenderness. Neuro: Alert. Gross movement of all extremities intact. Vital signs: See flowsheet Medications Administered Discontinued Medications Generic Name Dose Route Start Last Admin Trade Name Freq PRN Reason Stop Dose Admin Albuterol Sulfate 2.5 mg/ 0 mg 06/18/24 17:33 06/18/24 17:38 Albuterol/Ipratropium 3 ml INHALE 06/18/24 17:34 5 dose ONCE ONE Administration Methylprednisolone Sodium Succinate 80 mg 06/18/24 17:50 06/18/24 18:28 Methylprednisolone Sod Succ 125 Mg/2 Ml Vial IVPUSH 06/18/24 17:51 80 mg ONCE ONE Administration Medical Decision Making Medical Decision Making MDM Narrative: 64 F with COPD with likely persistent or recurrent exacerbation. No PTX no infiltrate. Empiric COPD tx with steroid, neb. Improved prior to DC. No indication for admission. Lab Data [facility] Lab Attestation statement: I reviewed the patient's lab results. 06/18/24 17:17 06/18/24 17:17 Labs: Lab Results 06/18/24 06/18/24 Range/Units 17:17 17:22 WBC 12.2 H (4.8-10.8) X10*3/uL RBC 4.63 (4.20-5.50) X10*6/uL Hgb 11.9 L (12.0-16.0) g/dl Hct 39.3 (37.0-47.0) % MCV 84.9 (80.0-98.0) fL MCH 25.7 L (27.0-33.0) pg MCHC 30.3 L (31.0-35.0) g/dl RDW 19.2 H (11.0-16.0) % Plt Count 256 (160-400) X10*3/uL MPV 9.6 (9.4-12.3) fL Immature Gran % (Auto) 0.6 H (0.0-0.4) % Neut % (Auto) 91.9 H (45-73) % Lymph % (Auto) 4.9 L (20-40) % [place] % (Auto) 2.1 (2-11) % Eos % (Auto) 0.2 (0-4) % Baso % (Auto) 0.3 (0-2) % Lymph # (Auto) 0.6 L (1.2-4.9) X10*3/uL [place] # (Auto) 0.3 (0.1-1.2) X10*3/uL Eos # (Auto) 0.0 (0.0-0.4) X10*3/uL Baso # (Auto) 0.0 (0.0-0.2) X10*3/uL Abs Immat Gran (auto) 0.07 H (0.00-0.03) X10*3/uL Absolute Neuts (auto) 11.2 H (2.0-8.3) x10*3/uL Absolute Nucleated RBC 0.000 (0.0-0.012) X10*3/uL Nucleated RBC % (auto) 0.0 (0.0-0.2) /100WBC Smear Tech's Comments VERIFIED PT 10.9 (10.9-12.4) SEC INR 0.9 (0.9-1.1) VBG pH 7.55 H (7.32-7.43) VBG pCO2 41 mmHg VBG pO2 125 mmHg VBG HCO3 37 H (22-26) mmol/L VBG O2 Saturation 99.0 % VBG Base Excess 13.7 mmol/L Sodium 145 (135-145) mmol/L Potassium 3.7 D (3.3-5.1) mmol/L Chloride 100 (96-108) mmol/L Carbon Dioxide 28 (22-29) mmol/L Anion Gap 21 H (12-20) BUN 7 L (9-16) mg/dL Creatinine 0.58 (0.5-1.4) mg/dL Estim Creat Clear Calc 67.1 Estimated GFR > 60 Random Glucose 269 H (60-115) mg/dL Calcium 11.5 H D (8.4-10.2) mg/dL Total Bilirubin 0.2 (0.0-1.0) mg/dL Direct Bilirubin < 0.2 (0.0-0.5) mg/dL AST 20 (5-31) U/L ALT 13 (0-31) U/L Alkaline Phosphatase 68 (39-117) U/L Troponin I High Sens 7.5 (<3.5-17.0) ng/L Total Protein 6.8 (6.5-8.0) g/dL Albumin 4.1 (3.5-5.0) g/dL Influenza Type A (PCR) NEGATIVE (Negative) Influenza Type B (PCR) NEGATIVE (Negative) RSV RNA Qual (PCR) NEGATIVE (Negative) SARS-CoV-2 RNA (RT-PCR) NEGATIVE (Negative) Independent Interpretation I performed an independent interpretation of an: Plain X-Ray External Record Review External record reviewed: Inpatient record Chronic Conditions Patient?s care impacted by: Other (COPD) Discharge Plan Discharge Clinical Impression: COPD (chronic obstructive pulmonary disease) Patient Disposition: Home, Self-Care Instructions: COPD (Chronic Obstructive Pulmonary Disease) (ED) Additional Instructions: _ DISCHARGE DIAGNOSES: COPD with exacerbation HISTORY OF PRESENTATION: ?Worsening shortness of breath since discharge EMERGENCY DEPARTMENT COURSE,TESTS, TREATMENTS: While in the ED today lab work EKG chest x-ray reassuring no signs of pneumonia DISCHARGE MEDICATIONS: ?[We have made no changes to your regular medication regimen] FOLLOW-UP: ?Call your primary or general physician soon as possible to discuss your symptoms, your ED visit and to discuss follow up plans Call PCP. INSTRUCTIONS ?& RETURN PRECAUTIONS: If any symptoms change first call your primary physician, if it is after-hours your primary doctors office should have a provider beauty sales consultant you can speak with. If the symptoms are severe or very concerning to you then call 911 or return to the ED. Lukas Alvarez MD Emergency Physician [facility] Prescriptions: No Action (DME) lancets [FreeStyle Lancets] 28 gauge misc See Rx Instructions .Route Qty: 100 5RF Rx Instructions: As directed twice a day AC (DME) FreeStyle Lite Strips Strip See Rx Instructions .Route Qty: 100 0RF Rx Instructions: check fasting blood sugar twice a day before meals (DME) FreeStyle Cristian 2 Sensor Kit See Rx Instructions .Route Qty: 6 3RF Rx Instructions: Test blood sugar 4 times per day (DME) FreeStyle Cristian 2 [place] Misc See Rx Instructions .Route Qty: 1 0RF Rx Instructions: test blood sugar 4 times per day losartan 50 mg tablet 50 mg PO DAILY Qty: 90 1RF Januvia 100 mg tablet 100 mg PO DAILY Qty: 90 1RF cholecalciferol (vitamin D3) 50 mcg (2,000 unit) capsule 50 mcg PO DAILY Qty: 90 1RF rosuvastatin 5 mg tablet 5 mg PO DAILY Qty: 90 1RF gabapentin 800 mg tablet 800 mg PO TID 30 Days Qty: 90 6RF amlodipine 5 mg tablet 5 mg PO DAILY Qty: 90 0RF metoclopramide HCl 10 mg tablet 10 mg PO TID Qty: 90 6RF albuterol sulfate 2.5 mg /3 mL (0.083 %) solution for nebulization 2.5 mg inhalation Q6H PRN (Reason: wheezing) psyllium husk [Fiber Laxative (psyllium husk)] 0.52 gram capsule 1.04 g PO BID baclofen 10 mg tablet 10 mg PO TID metformin 1,000 mg tablet 1,000 mg PO BID lansoprazole 30 mg capsule,delayed release(DR/EC) 30 mg PO DAILY@0630 doxycycline hyclate 100 mg tablet 100 mg PO Q12H 7 Days Qty: 14 0RF prednisone 10 mg tablet 10 mg PO DIRECTED Qty: 29 0RF Rx Instructions: see taper instructions 40 mg orally x 3 days, 30mg x 3 days, 20mg x 3 days, 10mg x 2 days (start 06/16) azithromycin 250 mg tablet 250 mg PO DAILY 4 Days Qty: 4 0RF Rx Instructions: start on day 2 of therapy acetaminophen 650 mg Tablet Extended Release 650 mg PO TID PRN (Reason: Pain) ferrous sulfate 324 mg (65 mg iron) tablet,delayed release (DR/EC) 324 mg PO DAILY nicotine 14 mg/24 hr patch 24 hour 1 patch topical DAILY Linzess 145 mcg capsule 145 mcg PO DAILY magnesium oxide 400 mg (241.3 mg magnesium) Tablet 400 mg PO DAILY Qty: 7 0RF umeclidinium 62.5 mcg/actuation blister with device 1 inh inhalation DAILY Rx Instructions: Encruse aspirin [Adult Low Dose Aspirin] 81 mg tablet,delayed release (DR/EC) 81 mg PO BEDTIME (DME) blood-glucose meter [FreeStyle Lite Meter] Kit See Rx Instructions .Route Qty: 1 0RF Rx Instructions: As directed twice a day before meals Arnuity Ellipta 100 mcg/actuation blister with device 1 inh inhalation DAILY famotidine [Pepcid] 40 mg tablet 40 mg PO BEDTIME Qty: 30 6RF Interventions: ED Discharge Assessment Last Done: 06/18/24 20:14 Discharge Date/Time: 06/18/24 20:44 Print Language: Bulgarian
[2024-06-18 17:44] LABS: Troponin-I High Sensitivity 7.5 ng/L (<3.5-17.0)
[2024-06-18 17:54] LABS: Alanine Aminotransferase 13 U/L (0-31); Albumin Level 4.1 g/dL (3.5-5.0); Alkaline Phosphatase 68 U/L (39-117); Anion Gap 21 (12-20); Aspartate Amino Transferase 20 U/L (5-31); Bilirubin Direct < 0.2 mg/dL (0.0-0.5); Bilirubin Total 0.2 mg/dL (0.0-1.0); Blood Urea Nitrogen 7 mg/dL (9-16); Calcium 11.5 mg/dL (8.4-10.2); Carbon Dioxide 28 mmol/L (22-29); Chloride 100 mmol/L (96-108); Creatinine Clr Calc Pharmacy 67.1; Estimated Glomerular Filt Rate > 60; Glucose Random 269 mg/dL (60-115); Potassium 3.7 mmol/L (3.3-5.1); Sodium 145 mmol/L (135-145); Total Protein 6.8 g/dL (6.5-8.0)
[2024-06-18 18:00] LABS: Influenza A PCR NEGATIVE (Negative); Influenza B PCR NEGATIVE (Negative); Resp Syncy Virus RNA Qual PCR NEGATIVE (Negative); SARS COV2 PCR INHOUSE NEGATIVE (Negative)
[2024-06-18 18:06] LABS: SLIDE REVIEW VERIFIED
[2024-06-18] MEDS: methylPREDNISolone Sod Succ 125 MG/2 ML VIAL 80 MG IVPUSH (18:28)
[2024-06-18 19:57] VITALS: BP 149/67; PULSE 93; RESP 16; TEMP 36.8; O2SAT 94
[2024-06-18 20:14] VITALS: BP 138/79; PULSE 88; RESP 20; TEMP 36.9; O2SAT 91
== END 2024-06-18 20:44 | disposition home or self-care (01) ==
PROVIDERS: Physician Assistant Medical; Emergency Provider Emergency Medicine
DX: J44.9 Chronic obstructive pulmonary disease, unspecified (principal); R06.00 Dyspnea, unspecified; R06.02 Shortness of breath; R94.31 Abnormal electrocardiogram [ECG] [EKG]; Z99.81 Dependence on supplemental oxygen; F17.210 Nicotine dependence, cigarettes, uncomplicated; Z03.818 Encounter for observation for suspected exposure to other biological agents ruled out; Z79.899 Other long term (current) drug therapy
CPT/HCPCS: 0241U; 71045; 80048; 80076; 82803; 84484; 85025; 85610; 93005; 94640; 96374; 99284; J2919

== ENCOUNTER → 2024-06-18 17:09 | Outpatient (BNV) | payer OTHER, SELFPAY | PROVIDERS: Emergency Provider Emergency Medicine; Visit Provider Internal Medicine Cardiovascular Disease | DX: R94.31 Abnormal electrocardiogram [ECG] [EKG] (principal) | CPT/HCPCS: 93010 ==

== ENCOUNTER 2024-06-21 08:58 | Outpatient (AMB) | payer OTHER, SELFPAY ==
--- NOTE | 2024-06-21 09:25 | A.OFFPC_ITS ---
Vital Signs 06/21/24 09:26 Height 4 ft 9 in Weight 109 lb BMI 23.6 BP 144/70 H Blood Pressure Location Lt brachial Position Sitting Pulse 95 Pulse Source Pulse Oximeter Pulse Oximetry (%) 95 Oxygen Delivery Method Nasal Cannula Intake Visit Reasons: HDF [facility] Intake Note: Pt is here today for her C HDF Allergies amoxicillin [AMOXICILLIN] Allergy (Intermediate, Verified 06/25/24 22:19) RASH Medication List - Last Reconciled 06/25/24 by Magalie Nicolas MD acetaminophen ER 650 mg PO TID PRN amlodipine 5 mg PO DAILY aspirin (Adult Low Dose Aspirin) 81 mg PO BEDTIME azithromycin 250 mg PO DAILY 4 days baclofen 10 mg PO TID blood-glucose meter (FreeStyle Lite Meter kit) As directed twice a day before meals cholecalciferol (vitamin D3) 50 mcg PO DAILY doxycycline hyclate 100 mg PO Q12H 7 days ferrous sulfate 324 mg PO DAILY flash glucose scanning reader ([employer] Multi[employer] Cristian 2 [place]) test blood sugar 4 times per day flash glucose sensor (FreeStyle Cristian 2 Sensor kit) Test blood sugar 4 times per day fluticasone furoate 100 mcg/actuation (Arnuity Ellipta) 1 inh inhalation DAILY FreeStyle Lite Strips (blood sugar diagnostic) check fasting blood sugar twice a day before meals NS gabapentin 800 mg PO TID 30 days ipratropium-albuterol 0.5 mg-3 mg(2.5 mg base)/3 mL 3 mL inhalation Q6H 1 month lancets (FreeStyle Lancets) As directed twice a day AC lansoprazole 30 mg PO DAILY@0630 linaclotide (Linzess) 145 mcg PO DAILY losartan 50 mg PO DAILY magnesium oxide 400 mg PO DAILY metformin 1,000 mg PO BID metoclopramide HCl 10 mg PO TID nicotine 1 patch topical DAILY prednisone 10 mg PO DIRECTED psyllium husk (Fiber Laxative (psyllium husk)) 1.04 grams PO BID rosuvastatin 5 mg PO DAILY sitagliptin phosphate (Januvia) 100 mg PO DAILY sucralfate 1 g PO BID PRN umeclidinium 62.5 mcg/actuation 1 inh inhalation DAILY Tobacco use date assessed: 06/21/24 Dental Screening Dental Screen Date: 06/21/24 Did you have a dental visit in the last 12 months?: No Did you have a dental problem in the last 6 months where you did not have access to dental care?: No Was dental information given to patient?: Patient has dentist HPI HDF [facility] HPI Details 64-year-old lady with past medical histo ry of COPD, active cigarette smoker , has diabetes mellitus, GERD, hypertension, dyslipidemia, here today for follow-up after recent ER visit for acute exacerbation of COPD. Patient has had multiple visits to the ER for the same issue. She was seen recently by her data support specialist at [facility] 06/06/2024, who advised to continue supplemental O2 2 liters/minute at rest and on activity, switched her Arnuity Ellipta and Incruse Ellipta to Trelegy, uses albuterol as needed , but patient states that she was still unable to get Trelegy and has just been using her old inhalers. Referral for pulmonary rehab also advised but patient refused. Continues to smoke cigarettes, at least 1 pack a day. Patient's boyfriend states that she has has been using the nicotine patch while in the hospital and was able to quit smoking while there, but when she gets home , she continues to smoke even with the patch still on. Resident patient's breathing is at baseline, and has no other complaints. [facility] Medical History (Updated 06/24/24 @ 00:02 by Kim Singh) COPD mixed type Gastritis Gastroparesis COPD (chronic obstructive pulmonary disease) Shortness of breath Hypochromic anemia Type 2 diabetes mellitus without complication, with no history of insulin use Heavy cigarette smoker Acute on chronic hypoxic respiratory failure Diabetic gastroparesis COPD (chronic obstructive pulmonary disease) Mixed dyslipidemia Essential hypertension GERD (gastroesophageal reflux disease) Diastolic CHF with preserved left ventricular function, NYHA class 2 Chronic hypercapnic respiratory failure Type 2 diabetes mellitus with other diabetic kidney complication Type 2 diabetes mellitus without complication, with no history of insulin use Smoker unmotivated to quit Postlaminectomy syndrome of cervical region Seasonal allergic rhinitis Degenerative disc disease, cervical Postmenopause Dyslipidemia Surgical History H/O cervical discectomy History of esophagogastroduodenoscopy (EGD) Hx of colonoscopy Family History Mother Diabetes Sister Diabetes Mental health disorder Brother Diabetes Father HTN (hypertension) Social History Household Members: Significant Other Housing: Other Housing Other:: mobile home Do you presently have visiting nurse or other home services: Yes (1x/week, for housecleaning) Alcohol intake: former Comment: Commode/ Hi Flow O2 Patient Tobacco Use Status: Current everyday Tobacco user Tobacco use type: Cigarette Cigarette Packs Per Day: 1 Cigarettes Per Day: 20 Years Smoked: 50 e-Cigarette/Vaping Use: Never Used Second Hand Smoke Exposure: Yes Advance Directives Date on File: 08/02/23 service: No Current occupational status: unemployed Cognitive needs: No Hearing needs: No Vision needs: Yes Questionnaire PHQ-9 Over the last 2 weeks, how often have you been bothered by any of the following problems? 1. Little interest or pleasure in doing things: not at all 2. Feeling down, depressed, or hopeless: not at all 3. Trouble falling or staying asleep, or sleeping too much: nearly every day 4. Feeling tired or having little energy: nearly every day 5. Poor appetite or overeating: several days 6. Feeling bad about yourself - or that you are a failure or have let yourself or your family down: more than half the days 7. Trouble concentrating on things, such as reading the newspaper or watching television: more than half the days 8. Moving or speaking so slowly that other people could have noticed. Or the opposite - being so fidgety or restless that you have been moving around a lot more than usual: several days 9. Thoughts that you would be better off or of hurting yourself in some way: not at all Total score: 12 Source: Developed by Drs. Wiley Caballero, Sharmila Paez, Iraj Hernandez and colleagues, with an educational radha from [employer]. Thrive Questionnaire Date Thrive assessed: 05/31/24 I am a: Patient What is your living situation today?: I have a steady place to live Within the past 12 months, did the food you bought not last and you didn't have the money to get more?: Never true Within the past 12 months, did you worry whether your food would run out before you got money to buy more?: Never true Do you have trouble paying for medicines?: No Do you have trouble getting transportation to medical appointments?: No Do you have trouble paying your heating and electricity bill?: No Do you have trouble taking care of your child, family member or friend?: No Do you have trouble with day-to-day activities such as bathing, preparing meals, shopping, managing finances, etc.?: Yes Are you currently unemployed and looking for a job?: No Are you interested in more education?: No Please select the resources that you would like help with: None Currently or been in a relationship where the following occur: No concerns reported THRIVE Score: 0 AUDIT C Alcohol Use Questionnaire (AUDIT-C) 1. How often do you have a drink containing alcohol?: Never Total Score: 0 FREDI-7 AMB Questionnaire FREDI-7 Date FREDI - 7 assessed: 09/02/22 Feeling nervous, anxious, or on edge: 0 = Not at all Not being able to stop or control worryin = Not at all Worrying too much about different things: 0 = Not at all Trouble relaxin = Not at all Being so restless that it is hard to sit still: 0 = Not at all Becoming easily annoyed or irritable: 0 = Not at all Feeling afraid as if something awful might happen: 0 = Not at all Total FREDI-7 score (0-4 normal; 5-9 mild; 10-14 moderate; 15-21 severe): 0 Source: Developed by Drs. Wiley Caballero, Sharmila Paez, Iraj Hernandez and colleagues, with an educational radha from [employer]. Review of Systems Const Denies body aches, Denies fever(s), Denies night sweats and Denies poor appetite Eyes Reports requires corrective lenses ENT Denies dental pain, Denies dysphagia, Denies hearing loss, Denies throat swelling and Denies tongue swelling Card Reports dyspnea on exertion Resp Reports as per HPI, Denies hemoptysis and Reports dyspnea on exertion GI Details: Denies melena, Denies bloating, Denies hematochezia, Reports constipation, Denies GI cramping, Denies dysphagia, Denies excessive flatus, Denies early satiety, Denies nausea, Denies vomiting and Denies hematemesis Reports no additional complaints Musc Reports no additional complaints Neuro Reports no additional complaints and Denies Abnormal speech present Patel/Lymph Reports no additional complaints Aller/Immun Denies throat swelling and Denies tongue swelling Physical exam (Primary Care) Vital Signs: Last Vital Signs Pulse 95 06/21/24 09:26 BP 144/70 H 06/21/24 09:26 Pulse Ox 95 06/21/24 09:26 Oxygen Delivery Method Nasal Cannula 06/21/24 09:26 BMI result Body Mass Index 23.6 Tobacco/Smoking Status: Tobacco use Status Tobacco use date assessed 06/21/24 06/21/24 09:32 Patient Tobacco Use Status Current everyday Tobacco 06/21/24 09:32 Tobacco use type Cigarette 06/21/24 09:32 e-Cigarette/Vaping Use Never Used 06/21/24 09:32 Are you ready to quit: No Tobacco cessation counseling provided: Yes PHQ-9: PHQ-9 Score PHQ-9: Total score 12 06/21/24 10:18 Thrive Assessment: Date of Thrive Assessment Date Thrive assessed 05/31/24 06/21/24 09:32 Currently or been in a relationship where the following occur: No concerns reported Const Other: Frail looking female, supplemental oxygen, accompanied by boyfriend Orientation/consciousness: patient oriented x3 HENMT General nose exam: Normal external nose present and No nasal discharge present Mouth: oropharynx normal and moist mucous membranes Eyes General: appearance normal, both eyes and all related structures Neck Neck: Yes full ROM, Yes no lymphadenopathy and Yes supple Resp Other: on portable O2 at 2 L/NC Effort & Inspection: normal respiratory effort and able to speak in complete sentences Auscultation: diminished lung sounds Cardio Rate: regular rate Rhythm: regular rhythm Heart sounds: S1 normal heart sound present and S2 normal heart sound present GI Other: Normal bowel sounds, soft, nontender, no mass palpated General: Yes no CVA tenderness Back/Spine/Pelvis Back: no CVA tenderness and No back tenderness Skin General skin exam: no rashes or lesions noted and dry skin Neuro General: patient oriented x3 Cognition (Neuro): normal cognition Speech: No Abnormal speech present Gait exam (Neuro): Normal gait present Extrem General: Yes full ROM, Yes no joint enlargement, Yes no pedal edema, Yes no calf tenderness and Yes normal gait Coding Level of Care Code Est Pt Level 4 (02332) Complex EM visit Add On G2211 Diagnoses COPD mixed type J44.9 Heavy cigarette smoker F17.210 Type 2 diabetes mellitus without complication, with no history of insulin use E11.9 Hypochromic anemia D50.9 Assessment & Plan Assessment & Plan (1) COPD mixed type: Code(s): J44.9 - Chronic obstructive pulmonary disease, unspecified Category: Medical Plan: Advised to call her data support specialist at [facility] on let him know that he she was unable to the Trelegy inhaler, currently using still Incruse and Arnuity Ellipta. Continued on supplemental O2 by nasal cannula 2 L per minute. Strongly advised to stop smoking cigarettes, patient currently using nicotine patch but continues to smoke while using the patch. Advised to not smoke while on the nicotine patch, strongly encouraged to attend pulmonary rehab, patient declined at present (2) Heavy cigarette smoker: Code(s): F17.210 - Nicotine dependence, cigarettes, uncomplicated Category: Social Hx Plan: Restarted back on nicotine patch 21 mg per patch apply to dry clean areas, on upper chest, upper arms, upper back. Rotate sites of use. Remove patch at night before sleeping. Do not smoke while on the patch. Call in 4 weeks to see if she is able to quit smoking and ready to go down on the lower dose of the nicotine patch. (3) Type 2 diabetes mellitus without complication, with no history of insulin use: Code(s): E11.9 - Type 2 diabetes mellitus without complications Category: Medical Plan: Last hemoglobin A1c 05/29/2024 was 6.4%. Continued on metformin 1000 mg 1 tablet twice a day, Januvia 100 mg once a day,. Reminded to get her diabetes retinopathy screening done yearly. Repeat labs again in 3 months prior to next visit (4) Hypochromic anemia: Code(s): D50.9 - Iron deficiency anemia, unspecified Category: Medical Plan: Repeat another CBC, and ferritin level Orders: Orders Complete Blood Count Auto Diff 09/23/24 D50.9 - Iron deficiency anemia, unspecified, E11.9 - Type 2 diabetes mellitus without complications, F17.210 - Nicotine dependence, cigarettes, uncomplicated, J44.9 - Chronic obstructive pulmonary disease, unspecified, K29.70 - Gastritis, unspecified, without bleeding, Z78.0 - Asymptomatic menopausal state Ferritin 09/23/24 D50.9 - Iron deficiency anemia, unspecified, E11.9 - Type 2 diabetes mellitus without complications, F17.210 - Nicotine dependence, cigarettes, uncomplicated, J44.9 - Chronic obstructive pulmonary disease, unspecified, K29.70 - Gastritis, unspecified, without bleeding, Z78.0 - Asymptomatic menopausal state Lipid Panel 09/23/24 D50.9 - Iron deficiency anemia, unspecified, E11.9 - Type 2 diabetes mellitus without complications, F17.210 - Nicotine dependence, cigarettes, uncomplicated, J44.9 - Chronic obstructive pulmonary disease, unspecified, K29.70 - Gastritis, unspecified, without bleeding, Z78.0 - Asymptomatic menopausal state Hemoglobin A1c 09/23/24 D50.9 - Iron deficiency anemia, unspecified, E11.9 - Type 2 diabetes mellitus without complications, F17.210 - Nicotine dependence, cigarettes, uncomplicated, J44.9 - Chronic obstructive pulmonary disease, unspecified, K29.70 - Gastritis, unspecified, without bleeding, Z78.0 - Asymptomatic menopausal state Vitamin D 25-OH Total 09/23/24 D50.9 - Iron deficiency anemia, unspecified, E11.9 - Type 2 diabetes mellitus without complications, F17.210 - Nicotine dependence, cigarettes, uncomplicated, J44.9 - Chronic obstructive pulmonary disease, unspecified, K29.70 - Gastritis, unspecified, without bleeding, Z78.0 - Asymptomatic menopausal state Calcium, Ionized 09/23/24 D50.9 - Iron deficiency anemia, unspecified, E11.9 - Type 2 diabetes mellitus without complications, F17.210 - Nicotine dependence, cigarettes, uncomplicated, J44.9 - Chronic obstructive pulmonary disease, unspecified, K29.70 - Gastritis, unspecified, without bleeding, Z78.0 - Asymptomatic menopausal state Basic Metabolic Panel Fasting 09/23/24 D50.9 - Iron deficiency anemia, unspecified, E11.9 - Type 2 diabetes mellitus without complications, F17.210 - Nicotine dependence, cigarettes, uncomplicated, J44.9 - Chronic obstructive pulmonary disease, unspecified, K29.70 - Gastritis, unspecified, without bleeding, Z78.0 - Asymptomatic menopausal state IRON PROFILE 09/23/24 D50.9 - Iron deficiency anemia, unspecified, E11.9 - Type 2 diabetes mellitus without complications, F17.210 - Nicotine dependence, cigarettes, uncomplicated, J44.9 - Chronic obstructive pulmonary disease, unspecified, K29.70 - Gastritis, unspecified, without bleeding, Z78.0 - Asymptomatic menopausal state Microalbumin, Random (w Creat) 09/23/24 D50.9 - Iron deficiency anemia, unspecified, E11.9 - Type 2 diabetes mellitus without complications, F17.210 - Nicotine dependence, cigarettes, uncomplicated, J44.9 - Chronic obstructive pulmonary disease, unspecified, K29.70 - Gastritis, unspecified, without bleeding, Z78.0 - Asymptomatic menopausal state Vitamin B12 and Folate 09/23/24 D50.9 - Iron deficiency anemia, unspecified, E11.9 - Type 2 diabetes mellitus without complications, F17.210 - Nicotine dependence, cigarettes, uncomplicated, J44.9 - Chronic obstructive pulmonary disease, unspecified, K29.70 - Gastritis, unspecified, without bleeding, Z78.0 - Asymptomatic menopausal state Alanine Aminotransferase 09/23/24 D50.9 - Iron deficiency anemia, unspecified, E11.9 - Type 2 diabetes mellitus without complications, F17.210 - Nicotine dependence, cigarettes, uncomplicated, J44.9 - Chronic obstructive pulmonary disease, unspecified, K29.70 - Gastritis, unspecified, without bleeding, Z78.0 - Asymptomatic menopausal state Aspartate Amino Transferase 09/23/24 D50.9 - Iron deficiency anemia, unspecified, E11.9 - Type 2 diabetes mellitus without complications, F17.210 - Nicotine dependence, cigarettes, uncomplicated, J44.9 - Chronic obstructive pulmonary disease, unspecified, K29.70 - Gastritis, unspecified, without bleeding, Z78.0 - Asymptomatic menopausal state Medications: New ipratropium-albuterol 0.5 mg-3 mg(2.5 mg base)/3 mL 3 mL inhalation Q6H 1 month 180 mL 1RF wheezing
[2024-06-21 09:26] VITALS: BP 144/70; PULSE 95; O2SAT 95; BMI 23.6
== END 2024-06-21 10:20 | disposition home or self-care (01) ==
LOC: HO.HMCC 08:59
PROVIDERS: Visit Provider Internal Medicine
DX: J44.9 Chronic obstructive pulmonary disease, unspecified (principal); F17.210 Nicotine dependence, cigarettes, uncomplicated; E11.9 Type 2 diabetes mellitus without complications; D50.9 Iron deficiency anemia, unspecified

== ENCOUNTER → 2024-06-21 08:58 | Outpatient (BNVA) | payer OTHER, SELFPAY | PROVIDERS: Visit Provider Internal Medicine | DX: J44.9 Chronic obstructive pulmonary disease, unspecified (principal); E11.9 Type 2 diabetes mellitus without complications; D50.9 Iron deficiency anemia, unspecified; F17.210 Nicotine dependence, cigarettes, uncomplicated; Z71.6 Tobacco abuse counseling | CPT/HCPCS: 99212 ==

== ENCOUNTER 2024-06-23 13:29 | Emergency (ER) | payer OTHER, SELFPAY ==
--- NOTE | ~2024-06-23 | XR_ITS ---
EXAMINATION: XR CHEST CLINICAL INFORMATION: Difficulty breathing. COPD. COMPARISON: Most recent chest radiograph dated 06/18/2024. TECHNIQUE: 2 views of the chest were obtained. FINDINGS: The lungs are clear. The cardiomediastinal silhouette is normal in size. There is no pleural effusion or pneumothorax. No acute osseous abnormality. Partially visualized cervical spine fusion hardware. XR/XR chest 2V IMPRESSION: No acute cardiopulmonary findings. Electronically signed by: Vitor Arango MD 06/23/2024 03:02 PM [facility]
--- NOTE | ~2024-06-23 | US_ITS ---
EXAMINATION: US GALLBLADDER AND COMMON BILE DUCT LIMITED CLINICAL INFORMATION: Upper abdominal pain. COMPARISON: CT abdomen pelvis 04/16/2024 TECHNIQUE: Real-time imaging of the gallbladder and common bile duct only. FINDINGS: GALLBLADDER: The gallbladder contains echogenic bile and some small mural polyps. No stones or pericholecystic fluid collections. Byrd's sign is negative. COMMON BILE DUCT: Normal in caliber measuring 0.4 cm in diameter. US/US abdomen limited IMPRESSION: Echogenic bile and small gallbladder polyps. No stones are seen. No evidence of cholecystitis. Electronically signed by: Ra Palmer MD 06/23/2024 07:06 PM [facility]
[2024-06-23 13:46] VITALS: BP 157/117; PULSE 88; RESP 20; TEMP 36.8; O2SAT 95; BMI 24.7
[2024-06-23 14:10] LABS: Basophils Percent Auto 0.3 % (0-2); Eosinophils Percent Auto 0.3 % (0-4); Hematocrit 41.8 % (37.0-47.0); Hemoglobin 12.6 g/dl (12.0-16.0); Imm Gran Abs Auto 0.06 X10*3/uL (0.00-0.03); Imm Gran Pct Auto 0.5 % (0.0-0.4); Lymphocytes Absolute Auto 3.5 X10*3/uL (1.2-4.9); MANUAL DIFF FLAG NO; Mean Corpuscular HGB Conc 30.1 g/dl (31.0-35.0); Mean Corpuscular Hemoglobin 25.2 pg (27.0-33.0); Mean Corpuscular Volume 83.6 fL (80.0-98.0); Mean Platelet Volume 9.4 fL (9.4-12.3); Monocytes Absolute Auto 0.8 X10*3/uL (0.1-1.2); Monocytes Percent Auto 6.2 % (2-11); Neutrophils Percent Auto 64.7 % (45-73); Platelet Count 326 X10*3/uL (160-400); Red Cell Distribution Width 19.8 % (11.0-16.0); White Blood Count 12.4 X10*3/uL (4.8-10.8)
[2024-06-23 14:26] LABS: Alanine Aminotransferase 18 U/L (0-31); Albumin Level 4.1 g/dL (3.5-5.0); Alkaline Phosphatase 58 U/L (39-117); Anion Gap 12 (12-20); Aspartate Amino Transferase 17 U/L (5-31); Bilirubin Direct 0.1 mg/dL (0.0-0.5); Bilirubin Total 0.3 mg/dL (0.0-1.0); Blood Urea Nitrogen 6 mg/dL (9-16); Calcium 9.9 mg/dL (8.4-10.2); Carbon Dioxide 33 mmol/L (22-29); Chloride 101 mmol/L (96-108); Creatinine Clr Calc Pharmacy 73.8; Estimated Glomerular Filt Rate > 60; Glucose Random 154 mg/dL (60-115); Magnesium 1.6 mg/dL (1.6-2.6); Sodium 143 mmol/L (135-145); Total Protein 6.6 g/dL (6.5-8.0)
--- NOTE | 2024-06-23 16:03 | ED_ITS ---
HPI - General Adult General Chief complaint: General Medical Stated complaint: stomach pain/ sob Time Seen by Provider: 06/23/24 16:03 History of Present Illness ED Provider: Taina MORALES narrative: The patient is a 64-year-old female with multiple medical problems including significant COPD on home oxygen. She says that she has had epigastric abdominal pain with a lot of frequency over the last several weeks. She has seen her regular doctor about this and says she has been prescribed 2 medications lansoprazole and famotidine. She says she has been taking the lansoprazole in the morning. She is supposed to take the famotidine in the evening but she has not yet started doing this. She says that the discomfort today was somewhat worse than it has been and she had her boyfriend drive her to the hospital. No fevers. No vomiting. Some nausea. She says her bowels are working normally. No constipation or diarrhea. No fever, sweats, chills. She says that eating can sometimes relieve the pain. Related Data Home Medications ?Medication ?Instructions ?Recorded ?Confirmed aspirin 81 mg tablet,delayed 81 mg PO BEDTIME 01/10/21 05/30/24 release (Adult Low Dose Aspirin) umeclidinium 62.5 mcg/actuation 1 inh inhalation DAILY 03/31/21 05/30/24 blister powder for inhalation psyllium husk 0.52 gram capsule 1.04 g PO BID Constipation 02/28/24 05/30/24 (Fiber Laxative (psyllium husk)) baclofen 10 mg tablet 10 mg PO TID 05/06/24 05/30/24 metformin 1,000 mg tablet 1,000 mg PO BID 05/06/24 05/30/24 lansoprazole 30 mg capsule,delayed 30 mg PO DAILY@0630 05/21/24 05/30/24 release acetaminophen 650 mg 650 mg PO TID PRN Pain 05/30/24 05/30/24 tablet,extended release ferrous sulfate 324 mg (65 mg 324 mg PO DAILY 05/30/24 05/30/24 iron) tablet,delayed release linaclotide 145 mcg capsule 145 mcg PO DAILY 05/30/24 05/30/24 (Linzess) nicotine 14 mg/24 hr daily 1 patch topical DAILY 05/30/24 05/30/24 transdermal patch fluticasone furoate 100 1 inh inhalation DAILY 06/13/24 mcg/actuation blister powder for inhalation (Arnuity Ellipta) Previous Rx's ?Medication ?Instructions ?Recorded blood-glucose meter (FreeStyle #1 ea 10/03/21 Lite Meter kit) lancets 28 gauge (FreeStyle #100 ea 01/06/22 Lancets) FreeStyle Lite Strips (blood sugar #100 ea 03/10/22 diagnostic) flash glucose sensor (FreeStyle #6 ea 02/19/23 Cristian 2 Sensor kit) flash glucose scanning reader #1 ea 03/26/23 (FreeStyle Cristian 2 [place]) losartan 50 mg tablet 50 mg PO DAILY #90 tabs 10/10/23 cholecalciferol (vitamin D3) 50 50 mcg PO DAILY #90 caps 11/22/23 mcg (2,000 unit) capsule sitagliptin phosphate 100 mg 100 mg PO DAILY #90 tabs 11/22/23 tablet (Januvia) rosuvastatin 5 mg tablet 5 mg PO DAILY #90 tabs 12/01/23 gabapentin 800 mg tablet 800 mg PO TID 30 days #90 tabs 01/26/24 amlodipine 5 mg tablet 5 mg PO DAILY #90 tabs 03/20/24 metoclopramide HCl 10 mg tablet 10 mg PO TID #90 tabs 05/11/24 magnesium oxide 400 mg (241.3 mg 400 mg PO DAILY #7 tabs 06/01/24 magnesium) tablet doxycycline hyclate 100 mg tablet 100 mg PO Q12H 7 days #14 tabs 06/06/24 azithromycin 250 mg tablet 250 mg PO DAILY 4 days #4 tabs 06/15/24 prednisone 10 mg tablet 10 mg PO DIRECTED #29 tabs 06/15/24 ipratropium 0.5 mg-albuterol 3 mg 3 ml inhalation Q6H wheezing 1 06/21/24 (2.5 mg base)/3 mL nebulization month #180 mL soln sucralfate 1 gram tablet 1 g PO BID PRN upper abdominal 06/23/24 pain #60 tabs Allergies Allergy/AdvReac Type Severity Reaction Status Date / Time amoxicillin [AMOXICILLIN] Allergy Intermediate RASH Verified 06/23/24 13:48 Review of Systems 2 Review of Systems: Yes all other systems are reviewed and are negative [facility] Past Medical History Medical History (Updated 06/24/24 @ 00:02 by Kim Singh) COPD mixed type Gastritis Gastroparesis COPD (chronic obstructive pulmonary disease) Shortness of breath Hypochromic anemia Type 2 diabetes mellitus without complication, with no history of insulin use Heavy cigarette smoker Acute on chronic hypoxic respiratory failure Diabetic gastroparesis COPD (chronic obstructive pulmonary disease) Mixed dyslipidemia Essential hypertension GERD (gastroesophageal reflux disease) Diastolic CHF with preserved left ventricular function, NYHA class 2 Chronic hypercapnic respiratory failure Type 2 diabetes mellitus with other diabetic kidney complication Type 2 diabetes mellitus without complication, with no history of insulin use Smoker unmotivated to quit Postlaminectomy syndrome of cervical region Seasonal allergic rhinitis Degenerative disc disease, cervical Postmenopause Dyslipidemia Surgical History H/O cervical discectomy History of esophagogastroduodenoscopy (EGD) Hx of colonoscopy Family History Family History Mother Diabetes Sister Diabetes Mental health disorder Brother Diabetes Father HTN (hypertension) Social History Social History Household Members: Significant Other Housing: Other Housing Other:: mobile home Do you presently have visiting nurse or other home services: Yes (1x/week, for housecleaning) Alcohol intake: former Comment: Commode/ Hi Flow O2 Patient Tobacco Use Status: Current everyday Tobacco user Tobacco use type: Cigarette Cigarette Packs Per Day: 1 Cigarettes Per Day: 20 Years Smoked: 50 Smoked in Last 30 Days: No e-Cigarette/Vaping Use: Never Used Second Hand Smoke Exposure: Yes Advance Directives: Yes Advance Directives on File: Yes Advance Directives Date on File: 08/02/23 Do you have a plan to hurt others: No Plan Patient : No service: No Current occupational status: unemployed Cognitive needs: No Hearing needs: No Vision needs: Yes Physical Exam ED Vital Signs: Vital Signs - 24 hr 06/23/24 13:46 06/23/24 16:12 06/23/24 19:42 Temperature 98.2 F 97.4 F 98.3 F Pulse Rate 88 78 81 Respiratory Rate 20 14 20 Blood Pressure 157/117 H 148/75 H 139/56 L Pulse Oximetry 95 94 96 Oxygen Delivery Method Nasal Cannula Room Air Nasal Cannula Oxygen Flow Rate 2 BMI result Body Mass Index 24.7 Const Other: The patient is a chronically ill-appearing 64-year-old female who was wearing nasal oxygen. She was asleep when I entered the room. She woke easily to what seemed to be a fairly normal mental status. She did not seem in acute discomfort or distress. HENMT Other: Face is symmetrical. Mucous membranes moist. Eyes Other: Pupils are round equal, conjunctivae are clear, extraocular movements intact. Neck Other: No JVD Resp Other: No increased work of breathing. Breath sounds are diminished bilaterally but they are symmetrical. No calvin wheezing. Cardio Rate: regular rate Rhythm: regular rhythm Heart sounds: S1 normal heart sound present and S2 normal heart sound present GI Other: The abdomen is mildly protuberant but soft. Mild right upper quadrant tenderness. Skin Other: Skin is pale and dry Neuro Other: The patient seemed sleepy but was easily arousable to a fairly normal mental status. Cranial nerves are grossly intact. She moves her extremities symmetrically. She does not seem to have focal neurological deficit. Extrem Other: No peripheral edema. No calf swelling or tenderness. Medications Administered Discontinued Medications Generic Name Dose Route Start Last Admin Trade Name Freq PRN Reason Stop Dose Admin Al Hydroxide/Mg Hydroxide 30 ml 06/23/24 19:14 06/23/24 19:24 Magnesium Hydrox/Alum Hydrox 30 Ml Oral.Susp PO 06/23/24 19:15 30 ml ONCE ONE Administration Potassium Chloride 40 meq 06/23/24 16:31 06/23/24 16:44 Potassium Chloride Er 20 Meq Tab.Er.Prt PO 06/23/24 16:32 40 meq ONCE ONE Administration Sucralfate 1 gm 06/23/24 16:27 06/23/24 16:44 Sucralfate Oral Suspension 1 Gm/10 Ml Oral.Susp PO 06/23/24 16:28 1 gm ONCE ONE Administration Medical Decision Making Medical Decision Making MDM Narrative: The patient is a 64-year-old woman who comes to the emergency room with a complaint of epigastric abdominal pain that she has had for several weeks. She says she has been seen at her PCP's office and has been prescribed lansoprazole and famotidine. She says that she has the pain every day for several hours a day. She was not really able to tell me exactly why she came to the hospital today compared to other days. Her abdomen seems benign on exam. She says the pain is better when she eats food. This would make me think this is probably gastritis. Given the upper abdominal location of the pain I obtained an ultrasound of her gallbladder that shows some biliary sludge but no other acute findings or gallstones. Her labs are unremarkable. Her physical exam and her general description of the symptoms were reassuring enough that I did not think there would be any benefit from a CT scan of the abdomen. Ultimately she felt somewhat better after sucralfate. I will prescribe sucralfate that she may use on an as-needed basis in addition to the other acid reducing medications she is already on. She should follow up with her PCP and her schedule manager. She should return if worse. Lab Data 06/23/24 14:03 06/23/24 14:03 Labs: Lab Results 06/23/24 06/23/24 Range/Units 14:03 17:40 WBC 12.4 H (4.8-10.8) X10*3/uL RBC 5.00 (4.20-5.50) X10*6/uL Hgb 12.6 (12.0-16.0) g/dl Hct 41.8 (37.0-47.0) % MCV 83.6 (80.0-98.0) fL MCH 25.2 L (27.0-33.0) pg MCHC 30.1 L (31.0-35.0) g/dl RDW 19.8 H (11.0-16.0) % Plt Count 326 D (160-400) X10*3/uL MPV 9.4 (9.4-12.3) fL Immature Gran % (Auto) 0.5 H (0.0-0.4) % Neut % (Auto) 64.7 (45-73) % Lymph % (Auto) 28.0 (20-40) % [place] % (Auto) 6.2 (2-11) % Eos % (Auto) 0.3 (0-4) % Baso % (Auto) 0.3 (0-2) % Lymph # (Auto) 3.5 (1.2-4.9) X10*3/uL [place] # (Auto) 0.8 (0.1-1.2) X10*3/uL Eos # (Auto) 0.0 (0.0-0.4) X10*3/uL Baso # (Auto) 0.0 (0.0-0.2) X10*3/uL Abs Immat Gran (auto) 0.06 H (0.00-0.03) X10*3/uL Absolute Neuts (auto) 8.0 (2.0-8.3) x10*3/uL Absolute Nucleated RBC 0.000 (0.0-0.012) X10*3/uL Nucleated RBC % (auto) 0.0 (0.0-0.2) /100WBC VBG pH 7.48 H (7.32-7.43) VBG pCO2 53 mmHg VBG pO2 124 mmHg VBG HCO3 40 H (22-26) mmol/L VBG O2 Saturation 99.0 % VBG Base Excess 14.7 mmol/L Sodium 143 (135-145) mmol/L Potassium 3.0 L (3.3-5.1) mmol/L Chloride 101 (96-108) mmol/L Carbon Dioxide 33 H (22-29) mmol/L Anion Gap 12 (12-20) BUN 6 L (9-16) mg/dL Creatinine 0.54 (0.5-1.4) mg/dL Estim Creat Clear Calc 73.8 Estimated GFR > 60 Random Glucose 154 H (60-115) mg/dL Calcium 9.9 D (8.4-10.2) mg/dL Magnesium 1.6 (1.6-2.6) mg/dL Total Bilirubin 0.3 (0.0-1.0) mg/dL Direct Bilirubin 0.1 (0.0-0.5) mg/dL AST 17 (5-31) U/L ALT 18 (0-31) U/L Alkaline Phosphatase 58 (39-117) U/L Troponin I High Sens 4.8 (<3.5-17.0) ng/L C-Reactive Protein < 0.10 (< or = 0.50) mg/dL Total Protein 6.6 (6.5-8.0) g/dL Albumin 4.1 (3.5-5.0) g/dL Discharge Plan Discharge Clinical Impression: Epigastric pain Patient Disposition: Home, Self-Care Instructions: Gastritis (ED) Additional Instructions: I believe that your pain is likely related to a stomach acid problem. Please continue taking your lansoprazole in the morning. I believe that you have also been prescribed another medication called famotidine to be taken in the evening. Please take this medication as well. I have also sent a prescription for medication called sucralfate that you may take on an as-needed basis for upper abdominal discomfort during the day if necessary. Please do your best to reduce smoking. Please follow up with your regular doctor and your schedule manager. Return to the emergency room if you feel significantly worse. Prescriptions: New sucralfate 1 gram tablet 1 g PO BID PRN (Reason: upper abdominal pain) Qty: 60 0RF No Action (DME) lancets [FreeStyle Lancets] 28 gauge misc See Rx Instructions .Route Qty: 100 5RF Rx Instructions: As directed twice a day AC (DME) FreeStyle Lite Strips Strip See Rx Instructions .Route Qty: 100 0RF Rx Instructions: check fasting blood sugar twice a day before meals (DME) FreeStyle Cristian 2 Sensor Kit See Rx Instructions .Route Qty: 6 3RF Rx Instructions: Test blood sugar 4 times per day (DME) FreeStyle Cristian 2 [place] Misc See Rx Instructions .Route Qty: 1 0RF Rx Instructions: test blood sugar 4 times per day losartan 50 mg tablet 50 mg PO DAILY Qty: 90 1RF Januvia 100 mg tablet 100 mg PO DAILY Qty: 90 1RF cholecalciferol (vitamin D3) 50 mcg (2,000 unit) capsule 50 mcg PO DAILY Qty: 90 1RF rosuvastatin 5 mg tablet 5 mg PO DAILY Qty: 90 1RF gabapentin 800 mg tablet 800 mg PO TID 30 Days Qty: 90 6RF amlodipine 5 mg tablet 5 mg PO DAILY Qty: 90 0RF metoclopramide HCl 10 mg tablet 10 mg PO TID Qty: 90 6RF psyllium husk [Fiber Laxative (psyllium husk)] 0.52 gram capsule 1.04 g PO BID baclofen 10 mg tablet 10 mg PO TID metformin 1,000 mg tablet 1,000 mg PO BID lansoprazole 30 mg capsule,delayed release(DR/EC) 30 mg PO DAILY@0630 doxycycline hyclate 100 mg tablet 100 mg PO Q12H 7 Days Qty: 14 0RF prednisone 10 mg tablet 10 mg PO DIRECTED Qty: 29 0RF Rx Instructions: see taper instructions 40 mg orally x 3 days, 30mg x 3 days, 20mg x 3 days, 10mg x 2 days (start 06/16) azithromycin 250 mg tablet 250 mg PO DAILY 4 Days Qty: 4 0RF Rx Instructions: start on day 2 of therapy acetaminophen 650 mg Tablet Extended Release 650 mg PO TID PRN (Reason: Pain) ferrous sulfate 324 mg (65 mg iron) tablet,delayed release (DR/EC) 324 mg PO DAILY nicotine 14 mg/24 hr patch 24 hour 1 patch topical DAILY Linzess 145 mcg capsule 145 mcg PO DAILY magnesium oxide 400 mg (241.3 mg magnesium) Tablet 400 mg PO DAILY Qty: 7 0RF umeclidinium 62.5 mcg/actuation blister with device 1 inh inhalation DAILY Rx Instructions: Encruse aspirin [Adult Low Dose Aspirin] 81 mg tablet,delayed release (DR/EC) 81 mg PO BEDTIME (DME) blood-glucose meter [FreeStyle Lite Meter] Kit See Rx Instructions .Route Qty: 1 0RF Rx Instructions: As directed twice a day before meals Arnuity Ellipta 100 mcg/actuation blister with device 1 inh inhalation DAILY ipratropium-albuterol 0.5 mg-3 mg(2.5 mg base)/3 mL solution for nebulization 3 ml inhalation Q6H 30 Days Qty: 180 1RF Referrals: Sally Mejia ANP-C [Nurse Practitioner] - (Epigastric pain presumably gastritis) Magalie Nicolas MD [Primary Care Provider] - (Epigastric pain presumably gastritis) Interventions: ED Discharge Assessment Last Done: 06/23/24 19:42 Discharge Date/Time: 06/23/24 19:55 Print Language: Canadian
[2024-06-23 16:12] VITALS: BP 148/75; PULSE 78; RESP 14; TEMP 36.3; O2SAT 94
--- NOTE | 2024-06-23 16:32 | ECG_ITS ---
Test Reason : ABD PAIN Blood Pressure : / mmHG Vent. Rate : 076 BPM Atrial Rate : 076 BPM P-R Int : 130 ms QRS Dur : 076 ms QT Int : 388 ms P-R-T Axes : 073 085 077 degrees QTc Int : 436 ms Normal sinus rhythm Nonspecific T wave abnormality Abnormal ECG When compared with ECG of 18-JUN-2024 17:17, Premature atrial complexes are no longer Present Referred By: Wesley Her Electronically Signed By:YOHAN PATEL MD
[2024-06-23] MEDS: Sucralfate Oral Suspension 1 GM/10 ML ORAL.SUSP PO (16:44)
[2024-06-23] MEDS: Potassium Chloride ER 20 MEQ TAB.ER.PRT 40 MEQ PO (16:44)
[2024-06-23 16:55] LABS: C Reactive Protein < 0.10 mg/dL (< or = 0.50)
[2024-06-23 17:07] LABS: Troponin-I High Sensitivity 4.8 ng/L (<3.5-17.0)
[2024-06-23 17:44] LABS: VBG Base Excess 14.7 mmol/L; VBG HCO3 40 mmol/L (22-26); VBG pCO2 53 mmHg; VBG pH 7.48 (7.32-7.43); VBG pO2 124 mmHg
[2024-06-23 17:46] LABS: Venous Blood Gas Refer to POC result
[2024-06-23] MEDS: Magnesium Hydrox/Alum Hydrox 30 ML ORAL.SUSP PO (19:24)
[2024-06-23 19:42] VITALS: BP 139/56; PULSE 81; RESP 20; TEMP 36.8; O2SAT 96
== END 2024-06-23 19:55 | disposition home or self-care (01) ==
PROVIDERS: Emergency Provider Emergency Medicine; PCP Internal Medicine
DX: R10.13 Epigastric pain (principal); E11.9 Type 2 diabetes mellitus without complications; I10 Essential (primary) hypertension; E78.2 Mixed hyperlipidemia; J44.9 Chronic obstructive pulmonary disease, unspecified; Z99.81 Dependence on supplemental oxygen; F17.210 Nicotine dependence, cigarettes, uncomplicated; Z79.82 Long term (current) use of aspirin; Z79.899 Other long term (current) drug therapy; Z79.02 Long term (current) use of antithrombotics/antiplatelets
CPT/HCPCS: 36415; 71046; 76705; 80053; 82248; 82803; 83735; 84484; 85025; 86140; 93005; 99284

== ENCOUNTER → 2024-06-23 16:32 | Outpatient (BNV) | payer OTHER, SELFPAY | PROVIDERS: Emergency Provider Emergency Medicine; PCP Internal Medicine; Visit Provider Internal Medicine Cardiovascular Disease | DX: R94.31 Abnormal electrocardiogram [ECG] [EKG] (principal) | CPT/HCPCS: 93010 ==

== ENCOUNTER 2024-07-04 15:24 | Outpatient (AMB) | payer OTHER, SELFPAY ==
--- NOTE | 2024-07-04 15:27 | HO.NEPHOV ---
Vital Signs 07/04/24 15:30 Height 4 ft 9 in Weight 114 lb BMI 24.7 BP 132/60 Blood Pressure Location Rt brachial Position Sitting Intake Visit Reasons: Malignant neoplasm of kidney except renal pelvis Allergies amoxicillin [AMOXICILLIN] Allergy (Intermediate, Verified 06/25/24 22:19) RASH HPI Comments Details: I had the delight of seeing Maria Elena in consideration for right renal mass. She has been seen by Urology and and a referral has been made to intervention Radiology by urologist for embolization of the tumor. She does not have any hematuria, weight loss, night sweats or flank pain. Her renal functions have been normal. She is known to have hypertension and is on multiple antihypertensive medications. Her blood pressure has been at goal. She does not take any excessive nonsteroidal anti-inflammatories. She has a diabetic. She is anxious to have her renal tumor embolized soon REPLACED BY [facility] Medical History (Updated 07/04/24 @ 16:13 by Blake Martinez MD) COPD mixed type Gastritis Gastroparesis COPD (chronic obstructive pulmonary disease) Shortness of breath Hypochromic anemia Type 2 diabetes mellitus without complication, with no history of insulin use Heavy cigarette smoker Acute on chronic hypoxic respiratory failure Diabetic gastroparesis COPD (chronic obstructive pulmonary disease) Mixed dyslipidemia Essential hypertension GERD (gastroesophageal reflux disease) Diastolic CHF with preserved left ventricular function, NYHA class 2 Chronic hypercapnic respiratory failure Type 2 diabetes mellitus with other diabetic kidney complication Type 2 diabetes mellitus without complication, with no history of insulin use Smoker unmotivated to quit Postlaminectomy syndrome of cervical region Seasonal allergic rhinitis Degenerative disc disease, cervical Postmenopause Dyslipidemia Surgical History H/O cervical discectomy History of esophagogastroduodenoscopy (EGD) Hx of colonoscopy Family History Mother Diabetes Sister Diabetes Mental health disorder Brother Diabetes Father HTN (hypertension) Social History Household Members: Significant Other Housing: Other Housing Other:: mobile home Do you presently have visiting nurse or other home services: Yes (1x/week, for housecleaning) Alcohol intake: former Comment: Commode/ Hi Flow O2 Patient Tobacco Use Status: Current everyday Tobacco user Tobacco use type: Cigarette Cigarette Packs Per Day: 1 Cigarettes Per Day: 20 Years Smoked: 50 e-Cigarette/Vaping Use: Never Used Second Hand Smoke Exposure: Yes Advance Directives Date on File: 08/02/23 service: No Current occupational status: unemployed Cognitive needs: No Hearing needs: No Vision needs: Yes Review of Systems Const All systems reviewed & are unremarkable except as noted in HPI and below Physical Exam Vital Signs: Last Vital Signs BP 132/60 07/04/24 15:30 BMI result Body Mass Index 24.7 Const General: comfortable and no acute distress Orientation/consciousness: patient oriented x3 HEENT Head: Yes normocephalic Mouth: Normal oral and palatal mucosa present Eyes EOM: EOMs intact bilaterally Neck Neck: Yes supple Resp Auscultation: diminished lung sounds Cardio Jugular venous distension: no JVD Rate: regular rate GI Palpation (GI): Soft to palpation Auscultation: normal bowel sounds General: Yes no CVA tenderness Back/Spine/Pelvis Back: no CVA tenderness Skin General skin exam: no rashes or lesions noted Neuro General: patient oriented x3 and moves all extremities Extrem General: Yes no pedal edema Results Reviewed Nephrology Results: Hgb 12.6 g/dl (12.0-16.0) 06/23/24 WBC 12.4 X10*3/uL (4.8-10.8) H 06/23/24 Plt Count 326 X10*3/uL (160-400) 06/23/24 Sodium 143 mmol/L (135-145) 06/23/24 Potassium 3.0 mmol/L (3.3-5.1) L 06/23/24 Chloride 101 mmol/L (96-108) 06/23/24 Carbon Dioxide 33 mmol/L (22-29) H 06/23/24 BUN 6 mg/dL (9-16) L 06/23/24 Creatinine 0.54 mg/dL (0.5-1.4) 06/23/24 Calcium 9.9 mg/dL (8.4-10.2) 06/23/24 Assessment & Plan Assessment & Plan (1) Renal cell carcinoma: Code(s): C64.9 - Malignant neoplasm of unspecified kidney, except renal pelvis Category: Medical Qualifiers: Laterality: right Qualified Code(s): C64.1 - Malignant neoplasm of right kidney, except renal pelvis (2) Hypertension: Code(s): I10 - Essential (primary) hypertension Category: Medical Qualifiers: Hypertension type: primary hypertension Qualified Code(s): I10 - Essential (primary) hypertension Plan Maria Elena has of right renal mass detected by imaging. She has seen urologist. She is due to have tumor embolized by Interventional Radiology. Request of that nature has already been sent to IR by urologist. Her blood pressure is at goal. Her renal functions are at baseline. She does not have any hematuria, flank pain, weight loss and night sweats. She does not take excessive nonsteroidal anti-inflammatories. I encouraged her to maintain good hydration. On the day of embolization she should hold metformin and losartan. I did not make any follow ups but shall be happy to see her any time if the need arises. Answered all questions. Coding Level of Care Code New Pt Level 4 (10491) Diagnoses Renal cell carcinoma of right kidney C64.1 Laterality: right Primary hypertension I10 Hypertension type: primary hypertension
[2024-07-04 15:30] VITALS: BP 132/60; BMI 24.7
== END 2024-07-05 09:03 | disposition home or self-care (01) ==
PROVIDERS: PCP Internal Medicine; Visit Provider Internal Medicine Nephrology
DX: C64.1 Malignant neoplasm of right kidney, except renal pelvis (principal); I10 Essential (primary) hypertension
CPT/HCPCS: 99204

== ENCOUNTER → 2024-07-04 15:24 | Outpatient (BNVA) | payer OTHER, SELFPAY | PROVIDERS: PCP Internal Medicine; Visit Provider Internal Medicine Nephrology | DX: C64.1 Malignant neoplasm of right kidney, except renal pelvis (principal); I10 Essential (primary) hypertension | CPT/HCPCS: 99202 ==

== ENCOUNTER 2024-07-12 15:08 | Outpatient (AMB) | payer OTHER, SELFPAY ==
--- NOTE | 2024-07-12 15:09 | MHC.OFFVIS ---
Vital Signs 07/12/24 15:37 Height 4 ft 9 in Weight 113 lb BMI 24.5 BP 121/58 L Blood Pressure Location Rt brachial Position Sitting Pulse 98 Intake Visit Reasons: 4 week follow up Intake Note: Patient in office today in 4 weeks follow up. CC: Patient c/o nausea, stomach pain, constipation alternating with diarrhea. She also c/o feeling weak, sometimes light headed, and not eating too good . Broom Bundler Required: No Allergies amoxicillin [AMOXICILLIN] Allergy (Intermediate, Verified 07/12/24 15:45) RASH HPI HPI 4 week follow up: Details: Assessment & Plan (1) Chronic idiopathic constipation: Code(s): K59.04 - Chronic idiopathic constipation Category: Medical (2) GERD (gastroesophageal reflux disease): Code(s): K21.9 - Gastro-esophageal reflux disease without esophagitis Category: Medical Qualifiers: Esophagitis presence: without esophagitis Qualified Code(s): K21.9 - Gastro-esophageal reflux disease without esophagitis (3) Gastroparesis: Code(s): K31.84 - Gastroparesis Category: Medical (4) Renal cell carcinoma: Code(s): C64.9 - Malignant neoplasm of unspecified kidney, except renal pelvis Category: Medical (5) Gastritis: Code(s): K29.70 - Gastritis, unspecified, without bleeding Category: Medical Orders: Referrals Interventional Radiology Referral C64.9 - Malignant neoplasm of unspecified kidney, except renal pelvis Hematology & Oncology Referral C64.9 - Malignant neoplasm of unspecified kidney, except renal pelvis Nephrology Referral C64.9 - Malignant neoplasm of unspecified kidney, except renal pelvis Medications: New famotidine (Pepcid) 40 mg PO BEDTIME 30 tabs 6RF K29.70 - Gastritis, unspecified, without bleeding CORRESPONDENCE On 06/28/24 @ 14:48 Nerissa Tompkins Wrote To November please see messages below they have reached out to patient several times to schedule her On 06/28/24 @ 13:34 Meera Richmond Wrote To Nerissa Tompkins [facility] 06/28 - no more attempts will be made on our end On 06/20/24 @ 11:02 Meera Richmond Wrote To Oncology/Hematology [facility] 11/5 On 06/14/24 @ 13:51 Meera Richmond Wrote To Oncology/Hematology [facility] 06/13 On 06/13/24 @ 15:53 Nerissa Tompkins Wrote To Oncology/Hematology This is an urgent referral the provider Sally Mejia would like this patient seen by or TODA[facility] VISIT She is accompanied today by her significant other who is supportive She still has not heard from Interventional Radiology she did see the pens and pencils repairer who did not seem to think her problems were yet in his round to treat especially since she has not had anything biopsy get. She continues to have nausea and I think this increasing problem with her gastroparesis could be related to pressure that this area of inflammation and mass effect is exerting on her upper abdomen. Will try increasing her to 20 mg of Reglan 3 times a day. I have written up the phone numbers for both Oncology and Interventional Radiology to see if they can get in touch with them. Return office visit in 4 weeks. In the meantime she continues on her lansoprazole, Linzess, magnesium, psyllium husk fiber, and simethicone. She asks me about a ?sq pill? that she says is making her feel odd but to my knowledge none of the medications I prescribed come in a sq shape. However this could be different depending on the generic electrical and electronic assembler. I asked him to try to either clarify this or bring the medications with her to the next visit so I can find out what this is Return office visit in 4 weeks [facility] Medical History (Reviewed 07/12/24 @ 15:39 by Gala Thakur [facility]) COPD mixed type Gastritis Gastroparesis COPD (chronic obstructive pulmonary disease) Shortness of breath Hypochromic anemia Type 2 diabetes mellitus without complication, with no history of insulin use Heavy cigarette smoker Acute on chronic hypoxic respiratory failure Diabetic gastroparesis COPD (chronic obstructive pulmonary disease) Mixed dyslipidemia Essential hypertension GERD (gastroesophageal reflux disease) Diastolic CHF with preserved left ventricular function, NYHA class 2 Chronic hypercapnic respiratory failure Type 2 diabetes mellitus with other diabetic kidney complication Type 2 diabetes mellitus without complication, with no history of insulin use Smoker unmotivated to quit Postlaminectomy syndrome of cervical region Seasonal allergic rhinitis Degenerative disc disease, cervical Postmenopause Dyslipidemia Surgical History H/O cervical discectomy History of esophagogastroduodenoscopy (EGD) Hx of colonoscopy Family History Mother Diabetes Sister Diabetes Mental health disorder Brother Diabetes Father HTN (hypertension) Social History Household Members: Significant Other Housing: Other Housing Other:: mobile home Do you presently have visiting nurse or other home services: Yes (1x/week, for housecleaning) Alcohol intake: former Comment: Commode/ Hi Flow O2 Patient Tobacco Use Status: Current everyday Tobacco user Tobacco use type: Cigarette Cigarette Packs Per Day: 1 Cigarettes Per Day: 20 Years Smoked: 50 e-Cigarette/Vaping Use: Never Used Second Hand Smoke Exposure: Yes Advance Directives Date on File: 08/02/23 service: No Current occupational status: unemployed Cognitive needs: No Hearing needs: No Vision needs: Yes Review of Systems Const Denies fatigue, Denies fever(s), Reports malaise, Denies night sweats, Denies poor appetite, Reports weakness and Denies weight loss Eyes Details: glasses Reports requires corrective lenses ENT Reports Normal hearing present, Denies dental pain, Denies dysphagia, Denies hearing loss, Denies mouth pain, Denies odynophagia, Denies throat swelling, Denies tongue swelling and Reports other (Dentition adequate) Card Reports no additional complaints and Reports dyspnea on exertion Resp Reports dyspnea on exertion GI Details: Denies abdominal pain, Denies melena, Denies bloating, Denies hematochezia, Reports constipation, Denies GI cramping, Denies dysphagia, Denies excessive flatus, Denies early satiety, Reports heartburn, Denies diarrhea, Reports nausea, Denies odynophagia, Denies vomiting and Denies hematemesis Skin/Breast Denies pruritus, Denies lesions, Denies rash and Denies jaundice Neuro Reports Normal hearing present, Denies Abnormal speech present and Reports weakness Endo Denies fatigue Aller/Immun Denies throat swelling and Denies tongue swelling Physical Exam Vital Signs: Last Vital Signs Pulse 98 07/12/24 15:37 BP 121/58 L 07/12/24 15:37 BMI result Body Mass Index 24.5 Const General: cooperative, no acute distress, well developed and well groomed Nutritional Appearance: average body habitus and well nourished Orientation/consciousness: oriented to person, oriented to place and oriented to time Limitations: No language barrier and other limitations HEENT Head: Yes normocephalic and Yes atraumatic Eyes General: appearance normal, both eyes and all related structures Pupils: Equal, round and reactive pupils present Neck Neck: Yes normal visual inspection and Yes no lymphadenopathy Thyroid: Thyroid normal Resp Effort & Inspection: normal respiratory effort and able to speak in complete sentences Auscultation: clear to auscultation bilaterally Cardio Rate: regular rate Rhythm: regular rhythm Heart sounds: Normal, physiologic split S2 sound present Peripheral pulses: radial pulses present and posterior tibial pulses present GI Inspection: No distended, Yes Abdominal panniculus present and Yes obesity Palpation (GI): Soft to palpation, nontender, no guarding, not rigid and No hepatosplenomegaly present Percussion: Yes normal to percussion Auscultation: normal bowel sounds Rectal Exam - Female: deferred Skin General skin exam: no rashes or lesions noted, turgor normal, skin not dry, no jaundice, No spider nevi and no striae Rashes: no rashes Nails: normal Neuro General: oriented to person, oriented to place and oriented to time Cranial nerves: Yes Equal, round and reactive pupils present and Yes Normal hearing present Speech: No Abnormal speech present Extrem General: Yes normal to inspection, No clubbing, No cyanosis and No edema Psych Appearance: grossly normal and well kempt Mental Status: mental status grossly normal Speech and movement: Normal speech and movement present Affect: normal affect Attitude: cooperative Thought process: Normal thought process present and not confabulating Thought content: Normal thought content present Insight: Poor insight present (Psych) Judgement: Poor judgement present (Psych) Assessment & Plan Assessment & Plan (1) Gastroparesis: Code(s): K31.84 - Gastroparesis Category: Medical (2) Renal cell carcinoma: Code(s): C64.9 - Malignant neoplasm of unspecified kidney, except renal pelvis Category: Medical Qualifiers: Laterality: right Qualified Code(s): C64.1 - Malignant neoplasm of right kidney, except renal pelvis (3) GERD (gastroesophageal reflux disease): Code(s): K21.9 - Gastro-esophageal reflux disease without esophagitis Category: Medical Qualifiers: Esophagitis presence: without esophagitis Qualified Code(s): K21.9 - Gastro-esophageal reflux disease without esophagitis (4) Chronic idiopathic constipation: Code(s): K59.04 - Chronic idiopathic constipation Category: Medical Plan She is accompanied today by her significant other who is supportive She still has not heard from Interventional Radiology she did see the pens and pencils repairer who did not seem to think her problems were yet in his round to treat especially since she has not had anything biopsy get. She continues to have nausea and I think this increasing problem with her gastroparesis could be related to pressure that this area of inflammation and mass effect is exerting on her upper abdomen. Will try increasing her to 20 mg of Reglan 3 times a day. I have written up the phone numbers for both Oncology and Interventional Radiology to see if they can get in touch with them. Return office visit in 4 weeks. In the meantime she continues on her lansoprazole, Linzess, magnesium, psyllium husk fiber, and simethicone. She asks me about a ?sq pill? that she says is making her feel odd but to my knowledge none of the medications I prescribed come in a sq shape. However this could be different depending on the generic electrical and electronic assembler. I asked him to try to either clarify this or bring the medications with her to the next visit so I can find out what this is Return office visit in 4 weeks Medications: New metoclopramide HCl (Reglan) 20 mg (2 x 10 mg) PO TIDWMEAL 180 tabs 6RF K31.84 - Gastroparesis Discontinued sucralfate Discontinued Reason: Doctor's Order 1 g PO BID PRN 60 tabs 0RF upper abdominal pain metoclopramide HCl Discontinued Reason: Doctor's Order 10 mg PO TID 90 tabs 6RF Patient Instructions: Maria Elena Kingston 1.Call Intervention radiology at [phone] to get her kidney mass biosied and possibly treated 2.Call Oncology (cancer doctors) to make an appointment at [phone] 3.I am increasing her metoclopramide from 10mg 3 times a day to 20mg (two 10mg pills) 3 times a day. 4.I want to see her in 4 weeks Coding Level of Care Code Est Pt Level 3 (15984) Diagnoses Gastroparesis K31.84 Renal cell carcinoma of right kidney C64.1 Laterality: right Gastroesophageal reflux disease without esophagitis K21.9 Esophagitis presence: without esophagitis Chronic idiopathic constipation K59.04
[2024-07-12 15:37] VITALS: BP 121/58; PULSE 98; BMI 24.5
== END 2024-07-12 16:40 | disposition home or self-care (01) ==
PROVIDERS: PCP Internal Medicine; Visit Provider Nurse Practitioner
DX: K31.84 Gastroparesis (principal); C64.1 Malignant neoplasm of right kidney, except renal pelvis; K21.9 Gastro-esophageal reflux disease without esophagitis; K59.04 Chronic idiopathic constipation
CPT/HCPCS: 99213

== ENCOUNTER → 2024-07-12 15:08 | Outpatient (BNVA) | payer OTHER, SELFPAY | PROVIDERS: PCP Internal Medicine; Visit Provider Nurse Practitioner | DX: K31.84 Gastroparesis (principal); C64.1 Malignant neoplasm of right kidney, except renal pelvis; K21.9 Gastro-esophageal reflux disease without esophagitis; K59.04 Chronic idiopathic constipation | CPT/HCPCS: 99212 ==

== ENCOUNTER 2024-07-18 14:56 | Emergency (ER) | payer OTHER, SELFPAY ==
--- NOTE | ~2024-07-18 | XR_ITS ---
EXAMINATION: XR CHEST CLINICAL INFORMATION: sob COMPARISON: 06/23/2024 TECHNIQUE: 2 views of the chest were obtained. FINDINGS: No significant abnormality is noted involving the heart, lungs, mediastinum, bony thorax or soft tissues. Minimal bibasilar atelectasis. ACDF hardware noted. XR/XR chest 2V IMPRESSION: No acute intrathoracic disease. Electronically signed by: Ra Palmer MD 07/18/2024 08:29 PM [facility]
--- NOTE | ~2024-07-18 | US_ITS ---
EXAMINATION: US ABDOMEN LIMITED CLINICAL INFORMATION: The bladder and remaining predominantly in the right. COMPARISON: Ultrasound abdomen 06/23/2024 TECHNIQUE: Real-time imaging of the right upper quadrant abdominal viscera. FINDINGS: PANCREAS: Visualized portions are unremarkable. LIVER: Liver is enlarged with increased echogenicity consistent with hepatic steatosis. The liver contour is normal. No focal hepatic lesion. There is no intrahepatic biliary duct dilatation seen. GALLBLADDER: The gallbladder is physiologically distended without evidence of stones, sludge wall thickening or pericholecystic fluid. Small gallbladder polyps are seen, largest 3 mm, and similar to prior. COMMON BILE DUCT: Normal in caliber measuring 0.5 cm in diameter. RIGHT KIDNEY: 3 mm mid renal echogenic focus seen consistent with nonobstructing stone. No hydronephrosis. No focal parenchymal lesions. The kidney measures 10.1 cm in maximum dimension. FREE FLUID: None. US/US abdomen limited IMPRESSION: 1. Enlarged fatty liver. 2. Small gallbladder polyps. 3. Nonobstructing 3 mm right renal calculus. Electronically signed by: Ra Palmer MD 07/18/2024 11:45 PM EST
[2024-07-18 15:55] VITALS: BP 138/72; PULSE 100; RESP 16; TEMP 36.9; O2SAT 98; BMI 28.1
--- NOTE | 2024-07-18 15:58 | ECG_ITS ---
Test Reason : SOB Blood Pressure : / mmHG Vent. Rate : 100 BPM Atrial Rate : 100 BPM P-R Int : 144 ms QRS Dur : 078 ms QT Int : 338 ms P-R-T Axes : 081 094 057 degrees QTc Int : 436 ms Artifact in tracing Sinus rhythm Nonspecific ST and T wave abnormality Abnormal ECG When compared with ECG of 23-JUN-2024 17:31, No significant changes seen Referred By: Tammy Hair Electronically Signed By:Allen Gant
--- NOTE | 2024-07-18 16:00 | ED_ITS ---
HPI - General Adult General Chief complaint: General Medical Stated complaint: SOB, abd pain Time Seen by Provider: 07/18/24 19:16 Source: patient and old records reviewed Mode of arrival: ambulatory Limitations: no limitations History of Present Illness ED Provider: OSMEL MORALES narrative: 64 yo female with PMH of COPD on 2L NC, HTN, anemia, smoker, DM, gastritis, gastroparesis, GERD, constipation here with c/o months of chronic upper abdominal pain has been worked up by her GI doctor for it. This pain is not new but today she couldn't take it. She feels nauseated at times but no vomiting, diarrhea, fevers, change in sputum production. She states she just finds this annoying. Has no chest pain. She is hungry during the interview and wants to eat. Has known R renal cell carcinoma referred to IR for cryotherapy - her pain has preceded this diagnosis it is not new. She does not report dizziness to me. MD complaint: abdominal pain, COPD Onset (ago): month(s) Location: chest and abdomen Radiation: non-radiation Severity: mild and moderate Quality: dull Pain Consistency: intermittent Relieving factors: none Exacerbating factors: none Associated symptoms: cough Treatments prior to arrival: none Related Data Home Medications ?Medication ?Instructions ?Recorded ?Confirmed aspirin 81 mg tablet,delayed 81 mg PO BEDTIME 01/10/21 06/25/24 release (Adult Low Dose Aspirin) psyllium husk 0.52 gram capsule 1.04 g PO BID Constipation 02/28/24 06/25/24 (Fiber Laxative (psyllium husk)) baclofen 10 mg tablet 10 mg PO TID 05/06/24 06/25/24 metformin 1,000 mg tablet 1,000 mg PO BID 05/06/24 06/25/24 lansoprazole 30 mg capsule,delayed 30 mg PO DAILY@0630 05/21/24 06/25/24 release acetaminophen 650 mg 650 mg PO TID PRN Pain 05/30/24 06/25/24 tablet,extended release ferrous sulfate 324 mg (65 mg 324 mg PO DAILY 05/30/24 06/25/24 iron) tablet,delayed release nicotine 14 mg/24 hr daily 1 patch topical DAILY 05/30/24 06/25/24 transdermal patch fluticasone furoate 100 1 inh inhalation DAILY 06/13/24 06/25/24 mcg/actuation blister powder for inhalation (Arnuity Ellipta) linaclotide 72 mcg capsule 72 mcg PO QAM 07/12/24 (Linzess) simethicone 180 mg capsule 360 mg PO BID 07/12/24 Previous Rx's ?Medication ?Instructions ?Recorded blood-glucose meter (FreeStyle #1 ea 10/03/21 Lite Meter kit) lancets 28 gauge (FreeStyle #100 ea 01/06/22 Lancets) FreeStyle Lite Strips (blood sugar #100 ea 03/10/22 diagnostic) flash glucose sensor (FreeStyle #6 ea 02/19/23 Cristian 2 Sensor kit) flash glucose scanning reader #1 ea 03/26/23 (FreeStyle Cristian 2 Ferdinand) cholecalciferol (vitamin D3) 50 50 mcg PO DAILY #90 caps 11/22/23 mcg (2,000 unit) capsule gabapentin 800 mg tablet 800 mg PO TID 30 days #90 tabs 01/26/24 amlodipine 5 mg tablet 5 mg PO DAILY #90 tabs 03/20/24 magnesium oxide 400 mg (241.3 mg 400 mg PO DAILY #7 tabs 06/01/24 magnesium) tablet ipratropium 0.5 mg-albuterol 3 mg 3 ml inhalation Q6H wheezing 1 06/21/24 (2.5 mg base)/3 mL nebulization month #180 mL soln sitagliptin phosphate 100 mg 100 mg PO DAILY #90 tabs 06/30/24 tablet (Januvia) losartan 50 mg tablet 50 mg PO DAILY #90 tabs 07/11/24 rosuvastatin 5 mg tablet 5 mg PO DAILY #90 tabs 07/11/24 metoclopramide HCl 10 mg tablet 20 mg (2 x 10 mg) PO TIDWMEAL #180 07/12/24 (Reglan) tabs Allergies Allergy/AdvReac Type Severity Reaction Status Date / Time amoxicillin [AMOXICILLIN] Allergy Intermediate RASH Verified 07/18/24 15:58 Review of Systems 2 Review of Systems: Constitutional : No Fever, No Chills ENT/Mouth : No sore throat, No Rhinorrhea, No Swallowing Difficulty Eyes: No Eye Pain, No Swelling, No Redness Cardiovascular : No Chest Pain, positive SOB, No Orthopnea, no Edema Respiratory : No Cough, No Sputum, No Wheezing, positive dyspnea Gastrointestinal : No Nausea, No Vomiting, No Diarrhea, pos abdominal Pain, No Hematochezia, No Melena Genitourinary : No Dysuria, No Urinary Frequency, No Hematuria Musculoskeletal : No joint pain, No Myalgias Skin : No Skin Lesions, No rash Neuro : No Weakness, No Numbness, No Dizziness, No Headache Psych : No Anxiety/Panic, No Depression All other systems reviewed and are negative PMFSH Past Medical History Attestation statement: The following information was validated with the patient. Source: old records reviewed Medical History COPD mixed type Gastritis Gastroparesis COPD (chronic obstructive pulmonary disease) Shortness of breath Hypochromic anemia Type 2 diabetes mellitus without complication, with no history of insulin use Heavy cigarette smoker Acute on chronic hypoxic respiratory failure Diabetic gastroparesis COPD (chronic obstructive pulmonary disease) Mixed dyslipidemia Essential hypertension GERD (gastroesophageal reflux disease) Diastolic CHF with preserved left ventricular function, NYHA class 2 Chronic hypercapnic respiratory failure Type 2 diabetes mellitus with other diabetic kidney complication Type 2 diabetes mellitus without complication, with no history of insulin use Smoker unmotivated to quit Postlaminectomy syndrome of cervical region Seasonal allergic rhinitis Degenerative disc disease, cervical Postmenopause Dyslipidemia Surgical History H/O cervical discectomy History of esophagogastroduodenoscopy (EGD) Hx of colonoscopy Family History Family History Mother Diabetes Sister Diabetes Mental health disorder Brother Diabetes Father HTN (hypertension) Social History Social History Household Members: Significant Other Housing: Other Housing Other:: mobile home Do you presently have visiting nurse or other home services: Yes (1x/week, for housecleaning) Alcohol intake: former Comment: Commode/ Hi Flow O2 Patient Tobacco Use Status: Current everyday Tobacco user Tobacco use type: Cigarette Cigarette Packs Per Day: 1 Cigarettes Per Day: 20 Years Smoked: 50 Smoked in Last 30 Days: Yes e-Cigarette/Vaping Use: Never Used Second Hand Smoke Exposure: Yes Use of substances other than those prescribed or required for medical reasons: No Advance Directives: Yes Advance Directives on File: Yes Advance Directives Date on File: 08/02/23 Do you have a plan to hurt others: No Plan Patient : No service: No Current occupational status: unemployed Cognitive needs: No Hearing needs: No Vision needs: Yes Physical Exam ED Vital Signs: Vital Signs - 24 hr 07/18/24 15:55 07/18/24 19:42 07/18/24 20:21 Temperature 98.4 F 97.8 F Pulse Rate 100 97 Respiratory Rate 16 20 18 Blood Pressure 138/72 151/64 H Pulse Oximetry 98 92 Oxygen Delivery Method Room Air Nasal Cannula Oxygen Flow Rate 2 07/18/24 20:29 07/18/24 22:06 07/18/24 23:51 Temperature 98 F 98.7 F Pulse Rate 91 94 96 Respiratory Rate 18 20 20 Blood Pressure 110/56 L 117/52 L Pulse Oximetry 88 L 90 L Oxygen Delivery Method Nasal Cannula Nasal Cannula Oxygen Flow Rate 2 3 BMI result Body Mass Index 28.1 Appearance: Alert. Oriented X3. No acute distress. Eyes: Pupils equal, round and reactive to light. ENT: Pharynx normal. Neck: Normal inspection. Neck supple. CVS: Normal heart rate and rhythm. Pulses normal. Respiratory: No respiratory distress. Breath sounds coarse throughout Abdomen: Soft and non-tender. Skin: Skin warm and dry. Normal skin color. Normal skin turgor. Extremities: No lower extremity edema. Neuro: Oriented X 3. No motor deficit. No sensory deficit. Course Course Course Narrative: This is a rapid medical exam performed by Tammy Hair PA-C. The patient is a 64-year-old female with a history of chronic shortness of breath and chronic abdominal pain who presents with shortness of breath since this morning. No recent illness, no recent weight gain. On exam she has bibasilar coarse breath sounds, she is on her baseline home oxygen requirement of 2 L. we will screen basic labs, trop, BNP chest x-ray EKG and a viral panel, she is hemodynamically stable, she can return to the waiting room pending her full medical assessment, she does not require an emergent updraft at this time. Reevaluation(s) Reevaluation #1: signed out to Dr. Rasmussen pending US and ddimer Medications Administered Discontinued Medications Generic Name Dose Route Start Last Admin Trade Name Freq PRN Reason Stop Dose Admin Al Hydroxide/Mg Hydroxide 15 ml 07/18/24 20:07 07/18/24 20:14 Magnesium Hydrox/Alum Hydrox 30 Ml Oral.Susp PO 07/18/24 20:08 15 ml ONCE ONE Administration Albuterol Sulfate 2.5 mg 07/18/24 20:27 07/18/24 20:38 Albuterol Sulfate (0.083%) 2.5 Mg/3 Ml Vial.Neb INHALE 07/18/24 20:28 2.5 mg ONCE ONE Administration Magnesium Sulfate 2 gm in 50 mls @ 25 mls/hr 07/18/24 19:46 07/18/24 22:15 Magnesium Sulfate/H2o IV 07/18/24 21:45 Infused ONCE ONE Infusion Ondansetron HCl 4 mg 07/18/24 20:07 07/18/24 20:14 Ondansetron Hcl 4 Mg/2 Ml Vial IVPUSH 07/18/24 20:08 4 mg ONCE ONE Administration Medical Decision Making Medical Decision Making [facility] Narrative: 64 yo female with PMH of COPD on 2L NC, HTN, anemia, smoker, DM, gastritis, gastroparesis, GERD, constipation here with c/o chronic abdominal pain but on my exam she has no ttp and is askig for food - I did order maalox, she has had xrays and CT scan in april for the same complaint and she follows with GI. She has no chest pain to suggest VTE, she does have renal cell carcinoma so I will add on ddimer. I did order US of GB as well given her reports of pain Patient has chronic abdominal pain with fatty liver ultrasound negative for acute patient advised to follow with PCP Differential Diagnosis Differential Diagnoses: The differential diagnosis associated with the presentation includes chronic COPD but she does not have fevers or increased O2 use or work of breathing down exacerbation no CP to suggest ACS or VTE, no signs of volume overload trop and BNP negative Admission/Observation Consideration of admission/observation: Escalation of care including admission/observation considered Lab Data [facility] Lab Attestation statement: I reviewed the patient's lab results. 07/18/24 16:10 07/18/24 16:10 Labs: Lab Results 07/18/24 07/18/24 Range/Units 16:10 21:07 WBC 15.0 H (4.8-10.8) X10*3/uL RBC 4.99 (4.20-5.50) X10*6/uL Hgb 12.6 (12.0-16.0) g/dl Hct 41.2 (37.0-47.0) % MCV 82.6 (80.0-98.0) fL MCH 25.3 L (27.0-33.0) pg MCHC 30.6 L (31.0-35.0) g/dl RDW 17.4 H (11.0-16.0) % Plt Count 424 H D (160-400) X10*3/uL MPV 9.9 (9.4-12.3) fL Immature Gran % (Auto) 0.5 H (0.0-0.4) % Neut % (Auto) 72.8 (45-73) % Lymph % (Auto) 18.7 L (20-40) % Hitchcock % (Auto) 6.5 (2-11) % Eos % (Auto) 1.0 (0-4) % Baso % (Auto) 0.5 (0-2) % Lymph # (Auto) 2.8 (1.2-4.9) X10*3/uL [place]cock # (Auto) 1.0 (0.1-1.2) X10*3/uL Eos # (Auto) 0.2 (0.0-0.4) X10*3/uL Baso # (Auto) 0.1 (0.0-0.2) X10*3/uL Abs Immat Gran (auto) 0.07 H (0.00-0.03) X10*3/uL Absolute Neuts (auto) 10.9 H (2.0-8.3) x10*3/uL Absolute Nucleated RBC 0.000 (0.0-0.012) X10*3/uL Nucleated RBC % (auto) 0.0 (0.0-0.2) /100WBC D-Dimer High Sensitivty < 150 NG/ML Sodium 142 (135-145) mmol/L Potassium 3.4 (3.3-5.1) mmol/L Chloride 96 (96-108) mmol/L Carbon Dioxide 31 H (22-29) mmol/L Anion Gap 18 (12-20) BUN 7 L (9-16) mg/dL Creatinine 0.53 (0.5-1.4) mg/dL Estim Creat Clear Calc 80.2 Estimated GFR > 60 Random Glucose 101 (60-115) mg/dL Calcium 11.6 H D (8.4-10.2) mg/dL Magnesium 1.5 L (1.6-2.6) mg/dL Total Bilirubin 0.2 (0.0-1.0) mg/dL AST 14 (5-31) U/L ALT 9 (0-31) U/L Alkaline Phosphatase 73 (39-117) U/L Troponin I High Sens 5.5 (<3.5-17.0) ng/L B-Natriuretic Peptide < 10 (<100) pg/mL Total Protein 7.0 (6.5-8.0) g/dL Albumin 4.4 (3.5-5.0) g/dL Lipase 16 (8-78) U/L Influenza Type A (PCR) NEGATIVE (Negative) Influenza Type B (PCR) NEGATIVE (Negative) RSV RNA Qual (PCR) NEGATIVE (Negative) SARS-CoV-2 RNA (RT-PCR) NEGATIVE (Negative) Independent Interpretation I performed an independent interpretation of an: EKG, Plain X-Ray (unchanged) and Ultrasound Interpretation: Rate: 100 Rhythm: NSR [place]: normal Normal P waves. Normal HILDA. Normal QRS complex. ST T wave : no JONI, nonspecific ST T wave changes lateral leads qTC: 436 prior studies: no acute ischemia The study has been interpreted contemporaneously by me. . Radiology Impression Discussion of test interpretation with radiology: I have reviewed the radiologist's reading. Radiologist Impression: US/US abdomen limited IMPRESSION: 1. Enlarged fatty liver. 2. Small gallbladder polyps. 3. Nonobstructing 3 mm right renal calculus. Electronically signed by: Ra Palmer MD 07/18/2024 11:45 PM [facility] [place] [facility] [place] Review External record reviewed: Inpatient record, Outpatient record and Prior outpatient radiology Discharge Plan Discharge Clinical Impression: Hypomagnesemia, COPD mixed type Abdominal pain Qualifiers: Abdominal location: epigastric Qualified Code(s): R10.13 - Epigastric pain Patient Disposition: Home, Self-Care Instructions: Abdominal Pain (ED), Chronic Lung Disease and Infection Prevention (ED) Additional Instructions: Continue your nebulizer treat other medication Follow with your PCP and guest relations officer Prescriptions: No Action (DME) lancets [FreeStyle Lancets] 28 gauge misc See Rx Instructions .Route Qty: 100 5RF Rx Instructions: As directed twice a day AC (DME) FreeStyle Lite Strips Strip See Rx Instructions .Route Qty: 100 0RF Rx Instructions: check fasting blood sugar twice a day before meals (DME) FreeStyle Cristian 2 Sensor Kit See Rx Instructions .Route Qty: 6 3RF Rx Instructions: Test blood sugar 4 times per day (DME) FreeStyle Cristian 2 Ferdinand Misc See Rx Instructions .Route Qty: 1 0RF Rx Instructions: test blood sugar 4 times per day cholecalciferol (vitamin D3) 50 mcg (2,000 unit) capsule 50 mcg PO DAILY Qty: 90 1RF gabapentin 800 mg tablet 800 mg PO TID 30 Days Qty: 90 6RF amlodipine 5 mg tablet 5 mg PO DAILY Qty: 90 0RF Januvia 100 mg tablet 100 mg PO DAILY Qty: 90 1RF rosuvastatin 5 mg tablet 5 mg PO DAILY Qty: 90 1RF losartan 50 mg tablet 50 mg PO DAILY Qty: 90 1RF psyllium husk [Fiber Laxative (psyllium husk)] 0.52 gram capsule 1.04 g PO BID baclofen 10 mg tablet 10 mg PO TID metformin 1,000 mg tablet 1,000 mg PO BID lansoprazole 30 mg capsule,delayed release(DR/EC) 30 mg PO DAILY@0630 acetaminophen 650 mg Tablet Extended Release 650 mg PO TID PRN (Reason: Pain) ferrous sulfate 324 mg (65 mg iron) tablet,delayed release (DR/EC) 324 mg PO DAILY nicotine 14 mg/24 hr patch 24 hour 1 patch topical DAILY magnesium oxide 400 mg (241.3 mg magnesium) Tablet 400 mg PO DAILY Qty: 7 0RF aspirin [Adult Low Dose Aspirin] 81 mg tablet,delayed release (DR/EC) 81 mg PO BEDTIME (DME) blood-glucose meter [FreeStyle Lite Meter] Kit See Rx Instructions .Route Qty: 1 0RF Rx Instructions: As directed twice a day before meals Linzess 72 mcg capsule 72 mcg PO QAM simethicone 180 mg capsule 360 mg PO BID metoclopramide HCl [Reglan] 10 mg tablet 20 mg PO TIDWMEAL Qty: 180 6RF Arnuity Ellipta 100 mcg/actuation blister with device 1 inh inhalation DAILY ipratropium-albuterol 0.5 mg-3 mg(2.5 mg base)/3 mL solution for nebulization 3 ml inhalation Q6H 30 Days Qty: 180 1RF Print Language: [place]
[2024-07-18 16:14] LABS: MANUAL DIFF FLAG NO
[2024-07-18 16:25] LABS: Basophils Absolute Auto 0.1 X10*3/uL (0.0-0.2); Basophils Percent Auto 0.5 % (0-2); Eosinophils Absolute Auto 0.2 X10*3/uL (0.0-0.4); Hematocrit 41.2 % (37.0-47.0); Hemoglobin 12.6 g/dl (12.0-16.0); Imm Gran Abs Auto 0.07 X10*3/uL (0.00-0.03); Imm Gran Pct Auto 0.5 % (0.0-0.4); Lymphocytes Absolute Auto 2.8 X10*3/uL (1.2-4.9); Lymphocytes Percent Auto 18.7 % (20-40); Mean Corpuscular HGB Conc 30.6 g/dl (31.0-35.0); Mean Corpuscular Hemoglobin 25.3 pg (27.0-33.0); Mean Corpuscular Volume 82.6 fL (80.0-98.0); Mean Platelet Volume 9.9 fL (9.4-12.3); Monocytes Percent Auto 6.5 % (2-11); Neutrophils Absolute Auto 10.9 x10*3/uL (2.0-8.3); Neutrophils Percent Auto 72.8 % (45-73); Platelet Count 424 X10*3/uL (160-400); Red Blood Count 4.99 X10*6/uL (4.20-5.50); Red Cell Distribution Width 17.4 % (11.0-16.0)
[2024-07-18 16:32] LABS: Alanine Aminotransferase 9 U/L (0-31); Albumin Level 4.4 g/dL (3.5-5.0); Alkaline Phosphatase 73 U/L (39-117); Anion Gap 18 (12-20); Aspartate Amino Transferase 14 U/L (5-31); Bilirubin Total 0.2 mg/dL (0.0-1.0); Blood Urea Nitrogen 7 mg/dL (9-16); Calcium 11.6 mg/dL (8.4-10.2); Carbon Dioxide 31 mmol/L (22-29); Chloride 96 mmol/L (96-108); Creatinine Clr Calc Pharmacy 80.2; Estimated Glomerular Filt Rate > 60; Glucose Random 101 mg/dL (60-115); Magnesium 1.5 mg/dL (1.6-2.6); Potassium 3.4 mmol/L (3.3-5.1); Sodium 142 mmol/L (135-145)
[2024-07-18 16:39] LABS: Troponin-I High Sensitivity 5.5 ng/L (<3.5-17.0)
[2024-07-18 16:42] LABS: B Type Natriuretic Peptide < 10 pg/mL (<100)
[2024-07-18 17:01] LABS: Influenza A PCR NEGATIVE (Negative); Influenza B PCR NEGATIVE (Negative); Resp Syncy Virus RNA Qual PCR NEGATIVE (Negative); SARS COV2 PCR INHOUSE NEGATIVE (Negative)
[2024-07-18 19:42] VITALS: BP 151/64; PULSE 97; RESP 20; TEMP 36.6; O2SAT 92
[2024-07-18 20:01] LABS: Lipase 16 U/L (8-78)
[2024-07-18] MEDS: Magnesium Hydrox/Alum Hydrox 30 ML ORAL.SUSP 15 ML PO (20:14)
[2024-07-18] MEDS: ondansetron HCL 4 MG/2 ML VIAL IVPUSH (20:14)
[2024-07-18] MEDS: Magnesium Sulfate/H2O 2 GM/50 ML PIGGYBACK IV (20:14)
[2024-07-18 20:21] VITALS: RESP 18
--- NOTE | 2024-07-18 20:23 | PC.NURSE ---
patient a&ox3, rr equal/non labored, pt O2 at baseline 2L. lungs have rhonchi throughout- pt states she has had a productive frothy milky cough, Iv inserted, labs previously drawn, nasal swab previously done, ekg performed, cxr pending, pt medicated per order, quality assurance monitor body intact- nsr on monitor, call burger within reach, will continue to monitor
[2024-07-18 20:29] VITALS: PULSE 91; RESP 18; O2SAT 91
[2024-07-18] MEDS: Albuterol Sulfate (0.083%) 2.5 MG/3 ML VIAL.NEB INHALE (20:38)
[2024-07-18 21:40] LABS: D Dimer High Sensitivity < 150 NG/ML
[2024-07-18 22:06] VITALS: BP 110/56; PULSE 94; RESP 20; TEMP 36.6; O2SAT 88
[2024-07-18 23:51] VITALS: BP 117/52; PULSE 96; RESP 20; TEMP 37.1; O2SAT 90
[2024-07-19] MEDS: methylPREDNISolone Sod Succ 125 MG/2 ML VIAL IVPUSH (00:28)
[2024-07-19] MEDS: Albuterol Sulfate 2.5 MG, Albuterol/Iprat 2.5/0.5MG 3 ML 3 ML INHALE (00:32)
[2024-07-19 00:50] VITALS: BP 117/52; PULSE 96; RESP 20; TEMP 37.1; O2SAT 90
== END 2024-07-19 01:02 | disposition home or self-care (01) ==
PROVIDERS: Emergency Medicine; Physician Assistant Medical; Emergency Provider Internal Medicine; PCP Internal Medicine
DX: E83.42 Hypomagnesemia (principal); J44.9 Chronic obstructive pulmonary disease, unspecified; R06.02 Shortness of breath; R10.13 Epigastric pain; R94.31 Abnormal electrocardiogram [ECG] [EKG]; I10 Essential (primary) hypertension; E11.9 Type 2 diabetes mellitus without complications; F17.210 Nicotine dependence, cigarettes, uncomplicated; Z99.81 Dependence on supplemental oxygen; Z79.84 Long term (current) use of oral hypoglycemic drugs; Z79.899 Other long term (current) drug therapy; Z03.818 Encounter for observation for suspected exposure to other biological agents ruled out
CPT/HCPCS: 0241U; 36415; 71046; 76705; 80053; 83690; 83735; 83880; 84484; 85025; 85379; 93005; 94640; 96365; 96366; 96375; 99285; J2405; J2919; J3475

== ENCOUNTER → 2024-07-18 15:58 | Outpatient (BNV) | payer OTHER, SELFPAY | PROVIDERS: Emergency Provider Internal Medicine; PCP Internal Medicine; Visit Provider Internal Medicine Cardiovascular Disease | DX: R94.31 Abnormal electrocardiogram [ECG] [EKG] (principal) | CPT/HCPCS: 93010 ==

== ENCOUNTER 2024-07-25 14:50 | Inpatient (IN) | payer OTHER, SELFPAY ==
--- NOTE | ~2024-07-25 | XR_ITS ---
EXAMINATION: XR CHEST CLINICAL INFORMATION: SOB COMPARISON: Chest x-ray July 18, 2024 TECHNIQUE: 2 views of the chest were obtained. FINDINGS: Lungs are clear. No pulmonary vascular congestion. There is no pleural effusion. The heart size is normal. The cardiac and mediastinal contours are normal. There are calcifications of the thoracic aorta. There are multilevel degenerative changes of dorsal spine. Orthopedic fusion hardware, ACDF, lower cervical spine. XR/XR chest 2V IMPRESSION: Unremarkable examination. Electronically signed by: Blue Pride MD 07/25/2024 05:25 PM EST RP
--- NOTE | ~2024-07-25 | XR_ITS ---
EXAMINATION: XR CHEST CLINICAL INFORMATION: pneumonia COMPARISON: Numerous recent chest x-rays, most recent 07/25/2024, 07/18/2024, and 06/23/2024. TECHNIQUE: AP portable view of the chest was obtained. FINDINGS: The cardiac, hilar, and mediastinal contours are normal. There is calcification of the aortic arch. Lungs again demonstrate mild scarring in the right greater than left bases. Nodular focus in the right perihilar lower lung, possibly artifactual from superimposition although underlying subtle infiltrate not entirely excluded. This was not seen previously. No acute osseous or soft tissue abnormalities. Redemonstration of cervical fusion hardware C5-6. XR/XR chest 1V IMPRESSION: 1. Subtle nodular opacity in the right lower perihilar lung, a new finding, likely a summation artifact although underlying subtle bronchopneumonia versus lung nodule is not excluded. Attention recommended on follow-up chest x-rays, although conversely dedicated CT imaging could be considered. 2. Otherwise, no active pulmonary disease. Electronically signed by: Rui Lomax MD 07/28/2024 11:33 AM EST
[2024-07-25 15:41] VITALS: BP 128/68; PULSE 97; RESP 20; TEMP 36.6; O2SAT 95; BMI 24.7
--- NOTE | 2024-07-25 15:43 | ED_ITS ---
HPI - General Adult General Chief complaint: Dyspnea Stated complaint: SOB, abd pain Time Seen by Provider: 07/25/24 23:27 Source: patient Mode of arrival: ambulatory Limitations: no limitations History of Present Illness ED Provider: HPI narrative: Patient's history of COPD chronic smoker on home oxygen 2 L type 2 diabetes , essential hypertension does discharge on 06/04 for COPD exacerbation since discharge patient has been to the ER 6 times last visit was on 07/18 comes here for increased shortness a breath says that is not getting better patient has not use nebulizer treatment at home today saturating 90% on 2 L of oxygen no chest pain no palpitation when patient is still smoking Related Data Home Medications ?Medication ?Instructions ?Recorded ?Confirmed aspirin 81 mg tablet,delayed 81 mg PO BEDTIME 01/10/21 06/25/24 release (Adult Low Dose Aspirin) psyllium husk 0.52 gram capsule 1.04 g PO BID Constipation 02/28/24 06/25/24 (Fiber Laxative (psyllium husk)) baclofen 10 mg tablet 10 mg PO TID 05/06/24 06/25/24 metformin 1,000 mg tablet 1,000 mg PO BID 05/06/24 06/25/24 lansoprazole 30 mg capsule,delayed 30 mg PO DAILY@0630 05/21/24 06/25/24 release acetaminophen 650 mg 650 mg PO TID PRN Pain 05/30/24 06/25/24 tablet,extended release ferrous sulfate 324 mg (65 mg 324 mg PO DAILY 05/30/24 06/25/24 iron) tablet,delayed release nicotine 14 mg/24 hr daily 1 patch topical DAILY 05/30/24 06/25/24 transdermal patch fluticasone furoate 100 1 inh inhalation DAILY 06/13/24 06/25/24 mcg/actuation blister powder for inhalation (Arnuity Ellipta) linaclotide 72 mcg capsule 72 mcg PO QAM 07/12/24 (Linzess) simethicone 180 mg capsule 360 mg PO BID 07/12/24 Previous Rx's ?Medication ?Instructions ?Recorded blood-glucose meter (FreeStyle #1 ea 10/03/21 Lite Meter kit) lancets 28 gauge (FreeStyle #100 ea 01/06/22 Lancets) FreeStyle Lite Strips (blood sugar #100 ea 03/10/22 diagnostic) flash glucose sensor (FreeStyle #6 ea 02/19/23 Cristian 2 Sensor kit) flash glucose scanning reader #1 ea 03/26/23 (FreeStyle Cristian 2 [place]) gabapentin 800 mg tablet 800 mg PO TID 30 days #90 tabs 01/26/24 magnesium oxide 400 mg (241.3 mg 400 mg PO DAILY #7 tabs 06/01/24 magnesium) tablet ipratropium 0.5 mg-albuterol 3 mg 3 ml inhalation Q6H wheezing 1 06/21/24 (2.5 mg base)/3 mL nebulization month #180 mL soln sitagliptin phosphate 100 mg 100 mg PO DAILY #90 tabs 06/30/24 tablet (Januvia) losartan 50 mg tablet 50 mg PO DAILY #90 tabs 07/11/24 rosuvastatin 5 mg tablet 5 mg PO DAILY #90 tabs 07/11/24 metoclopramide HCl 10 mg tablet 20 mg (2 x 10 mg) PO TIDWMEAL #180 07/12/24 (Reglan) tabs amlodipine 5 mg tablet 5 mg PO DAILY #90 tabs 07/21/24 cholecalciferol (vitamin D3) 50 50 mcg PO DAILY #90 caps 07/21/24 mcg (2,000 unit) capsule prednisone 20 mg tablet 40 mg (2 x 20 mg) PO DAILY #10 tabs 07/26/24 Allergies Allergy/AdvReac Type Severity Reaction Status Date / Time amoxicillin [AMOXICILLIN] Allergy Intermediate RASH Verified 07/25/24 15:42 Review of Systems 2 Review of Systems: Yes all other systems are reviewed and are negative PMFSH Past Medical History Medical History COPD mixed type Gastritis Gastroparesis COPD (chronic obstructive pulmonary disease) Shortness of breath Hypochromic anemia Type 2 diabetes mellitus without complication, with no history of insulin use Heavy cigarette smoker Acute on chronic hypoxic respiratory failure Diabetic gastroparesis COPD (chronic obstructive pulmonary disease) Mixed dyslipidemia Essential hypertension GERD (gastroesophageal reflux disease) Diastolic CHF with preserved left ventricular function, NYHA class 2 Chronic hypercapnic respiratory failure Type 2 diabetes mellitus with other diabetic kidney complication Type 2 diabetes mellitus without complication, with no history of insulin use Smoker unmotivated to quit Postlaminectomy syndrome of cervical region Seasonal allergic rhinitis Degenerative disc disease, cervical Postmenopause Dyslipidemia Surgical History H/O cervical discectomy History of esophagogastroduodenoscopy (EGD) Hx of colonoscopy Family History Family History Mother Diabetes Sister Diabetes Mental health disorder Brother Diabetes Father HTN (hypertension) Social History Social History Household Members: Significant Other Housing: Other Housing Other:: mobile home Do you presently have visiting nurse or other home services: Yes (1x/week, for housecleaning) Alcohol intake: never Comment: Commode/ Hi Flow O2 Patient Tobacco Use Status: Current everyday Tobacco user Tobacco use type: Cigarette Cigarette Packs Per Day: 1 Cigarettes Per Day: 20 Years Smoked: 50 Smoked in Last 30 Days: Yes e-Cigarette/Vaping Use: Never Used Second Hand Smoke Exposure: Yes Use of substances other than those prescribed or required for medical reasons: No Advance Directives: Yes Advance Directives on File: Yes Advance Directives Date on File: 08/02/23 Patient : No service: No Current occupational status: unemployed Cognitive needs: No Hearing needs: No Vision needs: Yes Physical Exam ED Vital Signs: Vital Signs - 24 hr 07/25/24 15:41 07/25/24 23:47 07/25/24 23:56 Temperature 97.9 F 98.5 F Pulse Rate 97 97 91 Respiratory Rate 20 20 18 Blood Pressure 128/68 112/57 L Pulse Oximetry 95 91 L Oxygen Delivery Method Room Air Nasal Cannula Oxygen Flow Rate 2 07/26/24 00:41 07/26/24 01:26 07/26/24 01:40 Temperature Pulse Rate 91 107 H 104 H Respiratory Rate 18 22 H 28 H Blood Pressure 136/57 L Pulse Oximetry 86 L 89 L Oxygen Delivery Method Nasal Cannula Aerosol Mask Oxygen Flow Rate 2 4 BMI result Body Mass Index 24.7 Appearance: Alert. Oriented X3. No acute distress. Eyes: PERRLA, No Nystagmus ENT: Pharynx normal. Oral Mucosa moist Neck: Normal inspection. Neck supple. CVS: Normal heart rate and rhythm. Pulses normal. Respiratory: No respiratory distress. Equal air entry bilateral, prolonged expiration with bilateral wheezing Abdomen: Soft and nontender. Bowel sounds are present, no mass palpable, no CVA tenderness Skin: Skin warm and dry. Normal skin color. Normal skin turgor. Extremities: No lower extremity edema. No calf tenderness Neuro: Oriented X 3. No motor deficit. No sensory deficit.No cerebellar signs , cranial nerves II-XII intact Course Course Course Narrative: This is an RME: Additional HPI, ROS, PE not included below will be deferred to primary provider. RME assessment and note performed by: Gena Mcgarry PA-C 64 yo female with PMH of COPD on 2L NC, HTN, anemia, smoker, DM, gastritis, gastroparesis, GERD, constipation here with c/o months of chronic upper abdominal pain and SOB. Seen on 07/18 for same. Plan: Labs, UA Medications Administered Discontinued Medications Generic Name Dose Route Start Last Admin Trade Name Freq PRN Reason Stop Dose Admin Albuterol Sulfate 7.5 mg 07/26/24 00:35 07/26/24 00:41 Albuterol Sulfate (0.083%) 2.5 Mg/3 Ml Vial.Neb INHALE 07/26/24 00:36 7.5 mg ONCE ONE Administration Albuterol Sulfate 2.5 mg/ 0 mg 07/25/24 23:43 07/25/24 23:54 Albuterol/Ipratropium 3 ml INHALE 07/25/24 23:44 3.5 dose ONCE ONE Administration Dexamethasone 10 mg 07/26/24 00:35 07/26/24 01:01 Dexamethasone 2 Mg Tablet PO 07/26/24 00:36 10 mg ONCE ONE Administration Medical Decision Making Medical Decision Making [facility] Narrative: Patient with chronic lung disease smoker chronic hypoxia on home oxygen comes here with increased shortness a breath saturating 87% on 2 L even after 2 treatments and p.o. Decadron patient lives alone will admit patient for chronic hypoxemic no signs of infection at this time patient has been here multiple times for similar chest x-ray negative for pneumonia patient does have chronic lung disease Differential Diagnosis Differential Diagnoses: The differential diagnosis associated with the presentation includes Consult Healthcare Provider Management of the patient was discussed with: Hospitalist Lab Data [facility] Lab Attestation statement: I reviewed the patient's lab results. 07/25/24 16:18 07/25/24 16:18 Labs: Lab Results 07/25/24 Range/Units 16:18 WBC 14.5 H (4.8-10.8) X10*3/uL RBC 4.96 (4.20-5.50) X10*6/uL Hgb 12.7 (12.0-16.0) g/dl Hct 41.3 (37.0-47.0) % MCV 83.3 (80.0-98.0) fL MCH 25.6 L (27.0-33.0) pg MCHC 30.8 L (31.0-35.0) g/dl RDW 17.6 H (11.0-16.0) % Plt Count 368 (160-400) X10*3/uL MPV 9.8 (9.4-12.3) fL Immature Gran % (Auto) 0.6 H (0.0-0.4) % Neut % (Auto) 70.2 (45-73) % Lymph % (Auto) 19.9 L (20-40) % [place] % (Auto) 7.6 (2-11) % Eos % (Auto) 1.1 (0-4) % Baso % (Auto) 0.6 (0-2) % Lymph # (Auto) 2.9 (1.2-4.9) X10*3/uL [place] # (Auto) 1.1 (0.1-1.2) X10*3/uL Eos # (Auto) 0.2 (0.0-0.4) X10*3/uL Baso # (Auto) 0.1 (0.0-0.2) X10*3/uL Abs Immat Gran (auto) 0.08 H (0.00-0.03) X10*3/uL Absolute Neuts (auto) 10.2 H (2.0-8.3) x10*3/uL Absolute Nucleated RBC 0.000 (0.0-0.012) X10*3/uL Nucleated RBC % (auto) 0.0 (0.0-0.2) /100WBC Sodium 142 (135-145) mmol/L Potassium 4.0 (3.3-5.1) mmol/L Chloride 99 (96-108) mmol/L Carbon Dioxide 29 (22-29) mmol/L Anion Gap 18 (12-20) BUN 6 L (9-16) mg/dL Creatinine 0.51 (0.5-1.4) mg/dL Estim Creat Clear Calc 78.1 Estimated GFR > 60 Random Glucose 100 (60-115) mg/dL Calcium 10.9 H D (8.4-10.2) mg/dL Magnesium 1.6 (1.6-2.6) mg/dL Total Bilirubin 0.2 (0.0-1.0) mg/dL Direct Bilirubin < 0.2 (0.0-0.5) mg/dL AST 12 (5-31) U/L ALT 7 (0-31) U/L Alkaline Phosphatase 77 (39-117) U/L Troponin I High Sens 3.8 (<3.5-17.0) ng/L Total Protein 7.3 (6.5-8.0) g/dL Albumin 4.4 (3.5-5.0) g/dL Lipase 17 (8-78) U/L Influenza Type A (PCR) NEGATIVE (Negative) Influenza Type B (PCR) NEGATIVE (Negative) RSV RNA Qual (PCR) NEGATIVE (Negative) SARS-CoV-2 RNA (RT-PCR) NEGATIVE (Negative) Discharge Plan Discharge Clinical Impression: COPD (chronic obstructive pulmonary disease) with emphysema Patient Disposition: Home, Self-Care Instructions: COPD (Chronic Obstructive Pulmonary Disease) (DC) Additional Instructions: Stop smoking Continue to use nebulizing treatment every 4-6 hours as needed Prednisone as prescribed Follow-up with your PCP Prescriptions: New prednisone 20 mg tablet 40 mg PO DAILY Qty: 10 0RF No Action (DME) lancets [FreeStyle Lancets] 28 gauge misc See Rx Instructions .Route Qty: 100 5RF Rx Instructions: As directed twice a day AC (DME) FreeStyle Lite Strips Strip See Rx Instructions .Route Qty: 100 0RF Rx Instructions: check fasting blood sugar twice a day before meals (DME) FreeStyle Cristian 2 Sensor Kit See Rx Instructions .Route Qty: 6 3RF Rx Instructions: Test blood sugar 4 times per day (DME) FreeStyle Cristian 2 [place] Misc See Rx Instructions .Route Qty: 1 0RF Rx Instructions: test blood sugar 4 times per day gabapentin 800 mg tablet 800 mg PO TID 30 Days Qty: 90 6RF Januvia 100 mg tablet 100 mg PO DAILY Qty: 90 1RF rosuvastatin 5 mg tablet 5 mg PO DAILY Qty: 90 1RF losartan 50 mg tablet 50 mg PO DAILY Qty: 90 1RF amlodipine 5 mg tablet 5 mg PO DAILY Qty: 90 1RF cholecalciferol (vitamin D3) 50 mcg (2,000 unit) capsule 50 mcg PO DAILY Qty: 90 1RF psyllium husk [Fiber Laxative (psyllium husk)] 0.52 gram capsule 1.04 g PO BID baclofen 10 mg tablet 10 mg PO TID metformin 1,000 mg tablet 1,000 mg PO BID lansoprazole 30 mg capsule,delayed release(DR/EC) 30 mg PO DAILY@0630 acetaminophen 650 mg Tablet Extended Release 650 mg PO TID PRN (Reason: Pain) ferrous sulfate 324 mg (65 mg iron) tablet,delayed release (DR/EC) 324 mg PO DAILY nicotine 14 mg/24 hr patch 24 hour 1 patch topical DAILY magnesium oxide 400 mg (241.3 mg magnesium) Tablet 400 mg PO DAILY Qty: 7 0RF aspirin [Adult Low Dose Aspirin] 81 mg tablet,delayed release (DR/EC) 81 mg PO BEDTIME (DME) blood-glucose meter [FreeStyle Lite Meter] Kit See Rx Instructions .Route Qty: 1 0RF Rx Instructions: As directed twice a day before meals Linzess 72 mcg capsule 72 mcg PO QAM simethicone 180 mg capsule 360 mg PO BID metoclopramide HCl [Reglan] 10 mg tablet 20 mg PO TIDWMEAL Qty: 180 6RF Arnuity Ellipta 100 mcg/actuation blister with device 1 inh inhalation DAILY ipratropium-albuterol 0.5 mg-3 mg(2.5 mg base)/3 mL solution for nebulization 3 ml inhalation Q6H 30 Days Qty: 180 1RF Print Language: Belarusian
--- NOTE | 2024-07-25 15:44 | ECG_ITS ---
Test Reason : CONCERN FOR HYPOKALEMIA Blood Pressure : / mmHG Vent. Rate : 093 BPM Atrial Rate : 093 BPM P-R Int : 146 ms QRS Dur : 074 ms QT Int : 356 ms P-R-T Axes : 017 021 -04 degrees QTc Int : 442 ms Normal sinus rhythm Nonspecific ST abnormality Abnormal ECG When compared to the previous EKG of No significant changes seen Referred By: Gena Mcgarry Electronically Signed By:YOHAN PATEL MD
[2024-07-25 16:25] LABS: MANUAL DIFF FLAG NO
[2024-07-25 16:29] LABS: Basophils Absolute Auto 0.1 X10*3/uL (0.0-0.2); Basophils Percent Auto 0.6 % (0-2); Eosinophils Absolute Auto 0.2 X10*3/uL (0.0-0.4); Eosinophils Percent Auto 1.1 % (0-4); Hematocrit 41.3 % (37.0-47.0); Hemoglobin 12.7 g/dl (12.0-16.0); Imm Gran Abs Auto 0.08 X10*3/uL (0.00-0.03); Imm Gran Pct Auto 0.6 % (0.0-0.4); Lymphocytes Absolute Auto 2.9 X10*3/uL (1.2-4.9); Lymphocytes Percent Auto 19.9 % (20-40); Mean Corpuscular HGB Conc 30.8 g/dl (31.0-35.0); Mean Corpuscular Hemoglobin 25.6 pg (27.0-33.0); Mean Corpuscular Volume 83.3 fL (80.0-98.0); Mean Platelet Volume 9.8 fL (9.4-12.3); Monocytes Absolute Auto 1.1 X10*3/uL (0.1-1.2); Monocytes Percent Auto 7.6 % (2-11); Neutrophils Absolute Auto 10.2 x10*3/uL (2.0-8.3); Neutrophils Percent Auto 70.2 % (45-73); Platelet Count 368 X10*3/uL (160-400); Red Blood Count 4.96 X10*6/uL (4.20-5.50); Red Cell Distribution Width 17.6 % (11.0-16.0); White Blood Count 14.5 X10*3/uL (4.8-10.8)
[2024-07-25 16:57] LABS: Troponin-I High Sensitivity 3.8 ng/L (<3.5-17.0)
[2024-07-25 16:59] LABS: Alanine Aminotransferase 7 U/L (0-31); Albumin Level 4.4 g/dL (3.5-5.0); Alkaline Phosphatase 77 U/L (39-117); Anion Gap 18 (12-20); Aspartate Amino Transferase 12 U/L (5-31); Bilirubin Total 0.2 mg/dL (0.0-1.0); Blood Urea Nitrogen 6 mg/dL (9-16); Calcium 10.9 mg/dL (8.4-10.2); Carbon Dioxide 29 mmol/L (22-29); Chloride 99 mmol/L (96-108); Creatinine Clr Calc Pharmacy 78.1; Estimated Glomerular Filt Rate > 60; Glucose Random 100 mg/dL (60-115); Lipase 17 U/L (8-78); Magnesium 1.6 mg/dL (1.6-2.6); Sodium 142 mmol/L (135-145); Total Protein 7.3 g/dL (6.5-8.0)
[2024-07-25 17:05] LABS: Influenza A PCR NEGATIVE (Negative); Influenza B PCR NEGATIVE (Negative); Resp Syncy Virus RNA Qual PCR NEGATIVE (Negative); SARS COV2 PCR INHOUSE NEGATIVE (Negative)
[2024-07-25 17:07] LABS: Bilirubin Direct < 0.2 mg/dL (0.0-0.5)
[2024-07-25 23:47] VITALS: BP 112/57; PULSE 97; RESP 20; TEMP 36.9; O2SAT 91
[2024-07-25] MEDS: Albuterol Sulfate 2.5 MG, Albuterol/Iprat 2.5/0.5MG 3 ML 3 ML INHALE (23:54)
[2024-07-25 23:56] VITALS: PULSE 91; RESP 18; O2SAT 90
[2024-07-26] VITALS (11 sets, daily range): BP systolic 121–153; BP diastolic 56–68; PULSE 91–107; RESP 16–28; TEMP 36.3–36.9; O2SAT 86–94; BMI 24.7
[2024-07-26] MEDS: Albuterol Sulfate (0.083%) 2.5 MG/3 ML VIAL.NEB 7.5 MG INHALE (00:41)
[2024-07-26] MEDS: dexAMETHasone 2 MG TABLET 10 MG PO (01:01)
--- NOTE | 2024-07-26 01:04 | PC.NURSE ---
pt awake and alert. skin pwd, resp even, RR 22. speaking in full, clear sentences. currently receiving breathing tx from RT. ST via tele at 107. medicated w/ decadron per MAR
--- NOTE | 2024-07-26 01:52 | PC.NURSE ---
Patient awake and alert. skin pwd, resp even and labored. speaking in full, clear sentences. lungs dim w/ exp wheezes throughout.O2 89% on 4lpm via NC. physician aware, plan for admit.
[2024-07-26 01:59] LABS: Venous Blood Gas Refer to POC result
[2024-07-26 02:05] LABS: VBG Base Excess 7.5 mmol/L; VBG HCO3 33 mmol/L (22-26); VBG pCO2 52 mmHg; VBG pH 7.41 (7.32-7.43); VBG pO2 74 mmHg
--- NOTE | 2024-07-26 02:13 | P.HPHOSP_ITS ---
History of Present Illness Date of Service: 07/26/24 Attending physician on admission: King Fiore Chief Complaint: Shortness on breath Maria Elena Kingston is a 64 years old woman with past medical history significant for COPD -home O2 2L/min, multiple hospitalizations due to COPD exacerbation, type 2 mellitus on metformin on metformin, essential hypertension, right renal mass (referral has been made to IR by urologist for embolization of the tumor) and ongoing tobacco smoking presents to emergency department complaining of shortness on breath. Patient is a poor historian and was nonspecific, her symptoms other than complaining of cough, chronic abdominal pain, chronic diarrhea and nausea. She denied chest pain, palpitations or dizziness. Denied illicit drug use or alcohol abuse. In the ED, vital signs remarkable for marked tachycardia, tachypnea and low O2 sats at 86% on 2 L/min of supplemental oxygen. Blood workup showed leukocytosis of 14.5 which is around baseline. Hemoglobin is 12.7 platelet 368. There are no significant electrolyte imbalances. Creatinine 0.51 and BUN 6. LFTs are normal. Venous blood gas showed pH of 7.41 CO 52. COVID-19, influenza and RSV is negative. CXR is negative. Review of Systems 2 Review of Systems: All 12 systems were reviewed and normal except as noted in HPI. [facility] Medical History (Updated 07/26/24 @ 02:35 by King Fiore MD) Acute on chronic hypoxic respiratory failure COPD mixed type Gastritis Gastroparesis COPD (chronic obstructive pulmonary disease) Shortness of breath Hypochromic anemia Type 2 diabetes mellitus without complication, with no history of insulin use Heavy cigarette smoker Diabetic gastroparesis COPD (chronic obstructive pulmonary disease) Mixed dyslipidemia Essential hypertension GERD (gastroesophageal reflux disease) Diastolic CHF with preserved left ventricular function, NYHA class 2 Chronic hypercapnic respiratory failure Type 2 diabetes mellitus with other diabetic kidney complication Type 2 diabetes mellitus without complication, with no history of insulin use Smoker unmotivated to quit Postlaminectomy syndrome of cervical region Seasonal allergic rhinitis Degenerative disc disease, cervical Postmenopause Dyslipidemia Family History Mother Diabetes Sister Diabetes Mental health disorder Brother Diabetes Father HTN (hypertension) Surgical History H/O cervical discectomy History of esophagogastroduodenoscopy (EGD) Hx of colonoscopy Social History Household Members: Significant Other Housing: Other Housing Other:: mobile home Do you presently have visiting nurse or other home services: Yes (1x/week, for housecleaning) Alcohol intake: never Comment: Commode/ Hi Flow O2 Patient Tobacco Use Status: Current everyday Tobacco user Tobacco use type: Cigarette Cigarette Packs Per Day: 1 Cigarettes Per Day: 20 Years Smoked: 50 Smoked in Last 30 Days: Yes e-Cigarette/Vaping Use: Never Used Second Hand Smoke Exposure: Yes Use of substances other than those prescribed or required for medical reasons: No Advance Directives: Yes Advance Directives on File: Yes Advance Directives Date on File: 08/02/23 Patient : No service: No Current occupational status: unemployed Cognitive needs: No Hearing needs: No Vision needs: Yes Meds Allergies Allergy/AdvReac Type Severity Reaction Status Date / Time amoxicillin [AMOXICILLIN] Allergy Intermediate RASH Verified 07/25/24 15:42 Active Medications: Current Medications Acetaminophen (Acetaminophen 325 Mg Tablet) 975 mg PO Q6H PRN PRN Reason: Pain, Mild (Pain Scale 1-3), fever or headache Enoxaparin Sodium (Enoxaparin Sodium 40 Mg/0.4 Ml Syringe) 40 mg SUBCUT Q24H MOUSTAPHA Sodium Chloride (0.9 % Sodium Chloride Flush 3 Ml Syringe) 3 ml IVFLUSH QSHIFT [facility] Home Medications ?Medication ?Instructions ?Recorded ?Confirmed ?Last Taken ?Type aspirin 81 mg tablet,delayed 81 mg PO BEDTIME 01/10/21 06/25/24 05/29/24 History release (Adult Low Dose Aspirin) psyllium husk 0.52 gram capsule 1.04 g PO BID Constipation 02/28/24 06/25/24 05/30/24 History (Fiber Laxative (psyllium husk)) baclofen 10 mg tablet 10 mg PO TID 05/06/24 06/25/24 05/30/24 History metformin 1,000 mg tablet 1,000 mg PO BID 05/06/24 06/25/24 05/30/24 History lansoprazole 30 mg capsule,delayed 30 mg PO DAILY@0630 05/21/24 06/25/24 05/30/24 History release acetaminophen 650 mg 650 mg PO TID PRN Pain 05/30/24 06/25/24 Unknown History tablet,extended release ferrous sulfate 324 mg (65 mg 324 mg PO DAILY 05/30/24 06/25/24 05/30/24 History iron) tablet,delayed release nicotine 14 mg/24 hr daily 1 patch topical DAILY 05/30/24 06/25/24 05/30/24 History transdermal patch fluticasone furoate 100 1 inh inhalation DAILY 06/13/24 06/25/24 Unknown History mcg/actuation blister powder for inhalation (Arnuity Ellipta) linaclotide 72 mcg capsule 72 mcg PO QAM 07/12/24 Unknown History (Linzess) simethicone 180 mg capsule 360 mg PO BID 07/12/24 Unknown History Physical Exam 2 Vital Signs and Narrative: Vital Signs: Last Vital Signs Temp 98.5 F 07/25/24 23:47 Pulse 104 H 07/26/24 01:40 Resp 28 H 07/26/24 01:40 BP 136/57 L 07/26/24 01:40 Pulse Ox 89 L 07/26/24 01:40 O2 Del Method Aerosol Mask 07/26/24 01:40 O2 Flow Rate 4 07/26/24 01:40 BMI result Body Mass Index 24.7 Constitutional - Awake and Alert, No apparent distress. On nasal cannula. HEENT - PERRL, EOMI Heart - Tachycardia, normal rate. Lungs - Normal lung expansion, Normal respiratory effort, No respiratory distress. Bilateral expiratory wheezes. No crackles. No rhonchi. Abdomen - NT / ND; +BS; No rebound or guarding Extremities - no calf tenderness bilaterally, no swelling Musculoskeletal - Normal inspection, normal ROM Skin - Warm/Dry Neurological - Alert & oriented x3. No focal weakness grossly noted. Normal speech. Psychological - Appropriate affect Results Labs 07/25/24 16:18 07/25/24 16:18 Labs: Laboratory Results - last 24 hr 07/25/24 07/26/24 16:18 01:59 MCV 83.3 MCH 25.6 L MCHC 30.8 L RDW 17.6 H Plt Count 368 MPV 9.8 Immature Gran % (Auto) 0.6 H Neut % (Auto) 70.2 Lymph % (Auto) 19.9 L [place] % (Auto) 7.6 Eos % (Auto) 1.1 Baso % (Auto) 0.6 Lymph # (Auto) 2.9 [place] # (Auto) 1.1 Eos # (Auto) 0.2 Baso # (Auto) 0.1 Abs Immat Gran (auto) 0.08 H Absolute Neuts (auto) 10.2 H Absolute Nucleated RBC 0.000 Nucleated RBC % (auto) 0.0 VBG pH 7.41 VBG pCO2 52 VBG pO2 74 VBG HCO3 33 H VBG O2 Saturation 92.0 VBG Base Excess 7.5 Anion Gap 18 Estim Creat Clear Calc 78.1 Estimated GFR > 60 Random Glucose 100 Calcium 10.9 H D Magnesium 1.6 Total Bilirubin 0.2 Direct Bilirubin < 0.2 AST 12 ALT 7 Alkaline Phosphatase 77 Troponin I High Sens 3.8 Total Protein 7.3 Albumin 4.4 Lipase 17 Influenza Type A (PCR) NEGATIVE Influenza Type B (PCR) NEGATIVE RSV RNA Qual (PCR) NEGATIVE SARS-CoV-2 RNA (RT-PCR) NEGATIVE Imaging Radiologist's Impressions: Impressions Chest X-Ray 07/25/24 15:44 IMPRESSION: Unremarkable examination. Electronically signed by: Blue Pride MD 07/25/2024 05:25 PM EST Assessment and Plan (1) Acute on chronic hypoxic respiratory failure: Status: Acute (2) Acute exacerbation of chronic obstructive pulmonary disease: Status: Resolved Plan Maria Elena Kingston is a 64 y/o woman admitted with: * Acute on chronic hypoxic respiratory failure secondary to acute exacerbation of COPD. Admit to hospitalist service. Telemetry. Supplemental O2 to keep O2 sats > 90%. Continue bronchodilator therapy and IV steroids. * Type 2 diabetes mellitus. BG checks before meals at bedtime. Hold metformin. Continue Januvia. Insulin sliding scale. Diabetic diet. * Essential hypertension. Continue amlodipine and losartan. * Hyperlipidemia. Continue statin. * Leukocytosis, chronic. Not taking steroids. Possible due to right renal mass. Continue to monitor. * Ongoing tobacco smoking. Tobacco cessation education. Nicotine patch. * Chronic idiopathic constipation. Hold Linzess as patient is complaining of diarrhea. * GERD. Continue PPI. * Right renal mass. Patient has been referred to IR by urologist for embolization of the tumor. DVT prophylaxis: Lovenox Code status: Full Patient will need hospitalization for at least 2 midnights for acute on chronic hypoxic respiratory failure due to acute exacerbation of COPD with bronchodilator therapy and IV steroids. Quality Stroke Does the patient have a stroke diagnosis?: No VTE Prior VTE?: No VTE Risk Level:: Medical - moderate - high VTE Device Contraindication: Treatment Not Indicated VTE Drug Contraindication: N/A - Med Ordered
--- NOTE | 2024-07-26 04:22 | PC.NURSE ---
assist pt to commode
[2024-07-26 05:08] LABS: Hematocrit 38.3 % (37.0-47.0); Hemoglobin 11.8 g/dl (12.0-16.0); Mean Corpuscular HGB Conc 30.8 g/dl (31.0-35.0); Mean Corpuscular Hemoglobin 25.4 pg (27.0-33.0); Mean Corpuscular Volume 82.5 fL (80.0-98.0); Mean Platelet Volume 9.7 fL (9.4-12.3); Platelet Count 345 X10*3/uL (160-400); Red Blood Count 4.64 X10*6/uL (4.20-5.50); Red Cell Distribution Width 17.7 % (11.0-16.0); White Blood Count 21.7 X10*3/uL (4.8-10.8)
[2024-07-26 05:23] LABS: Anion Gap 18 (12-20); Blood Urea Nitrogen 12 mg/dL (9-16); Calcium 10.6 mg/dL (8.4-10.2); Carbon Dioxide 26 mmol/L (22-29); Chloride 99 mmol/L (96-108); Creatinine Clr Calc Pharmacy 58.6; Estimated Glomerular Filt Rate > 60; Glucose Random 317 mg/dL (60-115); Potassium 3.4 mmol/L (3.3-5.1); Sodium 140 mmol/L (135-145)
[2024-07-26] MEDS: Nicotine 14 MG PATCH.TD24 TRANSDERMA (05:33)
[2024-07-26 05:34] LABS: Band Neutrophils Percent 7 % (3-5); Monocytes Absolute Manual 0.4 X10*3/uL (0.1-1.2); Monocytes Percent Manual 2 % (2-11); Neutrophils Absolute Manual 21.3 X10*3/uL (2.0-8.3); Neutrophils Percent Manual 91 % (45-73)
[2024-07-26 05:35] LABS: Microcytosis 1+ (5-14) /OIF; Platelet Estimate NORMAL (NORMAL); Platelet Morphology Comment NORMAL; Polychromasia 1+ (0-2) /OIF; RBC Morphology NOTED
[2024-07-26] MEDS: Enoxaparin Sodium 40 MG/0.4 ML SYRINGE SUBCUT (07:59)
[2024-07-26] MEDS: methylPREDNISolone Sod Succ 40 MG/ML VIAL IVPUSH ×2 (07:59→20:10)
--- NOTE | 2024-07-26 09:18 | PHA.MEDREC ---
Addendum entered by Tiago Godwin RPh 07/26/24 11:16: Med rec was reviewed by Lynette. Original Note: Pharmacy Consult ? Medication Reconciliation Pharmacy has completed the medication reconciliation. Spoke to patient to confirm med list. Patient was very slow at answering any question but was able to confirm her medications. Patient states she is no longer taking Sucralfate 1 gm. patient states she dose have a nicotine patch on her left upper arm. Patient states she hasn't started the prednisone 40mg taper that was prescribed to her today.
[2024-07-26] MEDS: Albuterol/Iprat 2.5/0.5MG 3 ML AMPUL.NEB INHALE ×3 (11:06→19:35)
[2024-07-26] MEDS: Metoclopramide HCl 10 MG TABLET 20 MG PO (12:41)
[2024-07-26] MEDS: Magnesium Oxide 400 MG TABLET PO (12:41)
[2024-07-26] MEDS: metFORMIN HCl 1,000 MG TABLET 1000 MG PO (12:41)
[2024-07-26] MEDS: Simethicone 80 MG TAB.CHEW PO ×2 (12:41→20:10)
[2024-07-26] MEDS: SITagliptin Phosphate 100 MG TABLET PO (12:41)
[2024-07-26] MEDS: Losartan Potassium 50 MG TABLET PO (12:42)
[2024-07-26] MEDS: Gabapentin 400 MG CAPSULE 800 MG PO ×2 (14:16→20:10)
[2024-07-26] MEDS: Baclofen 10 MG TABLET PO ×2 (14:17→20:10)
--- NOTE | 2024-07-26 14:39 | MHC.CM.ED ---
Attempted to meet with patient in regards to discharge planning. Nursing care currently being provided. Will attempt to meet again. Continue to monitor for d/c needs.
--- NOTE | 2024-07-26 15:51 | PM.EVENT ---
Event Note Date of Service: 07/26/24 Event Note: Patient seen and examined earlier this morning by hospitalist service -seen and exmained again sob seems somewhat improving denies any chest pain has cough with whitish sputum Physical exam and assessment and plan coordinated in h&P note, Agree with the plan in addition: acute on ch respiratory failure sec to copd excerebation: continue nebs,steriods ,antibiotics ,slowly wean oxygen Time Spent With Patient Time: Total time managing care of this patient today ____ minutes.
[2024-07-26] MEDS: Famotidine 20 MG TABLET 40 MG PO (20:10)
[2024-07-26] MEDS: 0.9 % Sodium Chloride Flush 3 ML SYRINGE IVFLUSH (20:11)
[2024-07-26] MEDS: Aspirin Enteric Coated 81 MG TABLET.DR PO (20:11)
[2024-07-27] VITALS (7 sets, daily range): BP systolic 115–131; BP diastolic 52–62; PULSE 83–93; RESP 14–20; TEMP 36.3–36.4; O2SAT 92–97
[2024-07-27 07:38] LABS: Hematocrit 37.4 % (37.0-47.0); Hemoglobin 11.4 g/dl (12.0-16.0); Mean Corpuscular HGB Conc 30.5 g/dl (31.0-35.0); Mean Corpuscular Hemoglobin 25.4 pg (27.0-33.0); Mean Corpuscular Volume 83.5 fL (80.0-98.0); Mean Platelet Volume 11.1 fL (9.4-12.3); Platelet Count 345 X10*3/uL (160-400); Red Blood Count 4.48 X10*6/uL (4.20-5.50); White Blood Count 26.2 X10*3/uL (4.8-10.8)
[2024-07-27 07:50] LABS: Anion Gap 18 (12-20); Blood Urea Nitrogen 9 mg/dL (9-16); Calcium 10.1 mg/dL (8.4-10.2); Carbon Dioxide 28 mmol/L (22-29); Chloride 99 mmol/L (96-108); Creatinine Clr Calc Pharmacy 73.8; Estimated Glomerular Filt Rate > 60; Glucose Random 195 mg/dL (60-115); Potassium 4.5 mmol/L (3.3-5.1); Sodium 140 mmol/L (135-145)
[2024-07-27] MEDS: Losartan Potassium 50 MG TABLET PO (08:44)
[2024-07-27] MEDS: Ferrous Sulfate 324 MG TABLET.DR PO (08:44)
[2024-07-27] MEDS: SITagliptin Phosphate 100 MG TABLET PO (08:44)
[2024-07-27] MEDS: Gabapentin 400 MG CAPSULE 800 MG PO ×3 (08:44→21:07)
[2024-07-27] MEDS: Simethicone 80 MG TAB.CHEW PO ×4 (08:44→21:03)
[2024-07-27] MEDS: Magnesium Oxide 400 MG TABLET PO (08:44)
[2024-07-27] MEDS: methylPREDNISolone Sod Succ 40 MG/ML VIAL IVPUSH (08:45)
[2024-07-27] MEDS: Enoxaparin Sodium 40 MG/0.4 ML SYRINGE SUBCUT (08:45)
[2024-07-27] MEDS: Atorvastatin Calcium 20 MG TABLET PO (08:45)
[2024-07-27] MEDS: Nicotine 14 MG PATCH.TD24 TRANSDERMA (08:45)
[2024-07-27] MEDS: amLODIPine Besylate 5 MG TABLET PO (08:45)
[2024-07-27] MEDS: Metoclopramide HCl 10 MG TABLET 20 MG PO ×3 (08:45→16:58)
[2024-07-27] MEDS: Cholecalciferol (Vitamin D3) 25 MCG TABLET 50 MCG PO (08:45)
[2024-07-27] MEDS: Baclofen 10 MG TABLET PO ×3 (08:45→21:08)
[2024-07-27] MEDS: 0.9 % Sodium Chloride Flush 3 ML SYRINGE IVFLUSH ×3 (08:48→21:03)
--- NOTE | 2024-07-27 08:55 | PM.CNPUL ---
History of Present Illness History of Present Illness Consult date: 07/27/24 Chief complaint: Hypoxic Respiratory Failure Narrative: This is an inpatient pulmonary consultation. The patient is a 64 years old woman with past medical history significant for COPD -home O2 2L/min, multiple hospitalizations due to COPD exacerbation, and ongoing tobacco smoking presents to emergency department complaining of shortness on breath. Patient is a poor historian and was nonspecific, her symptoms other than complaining of cough, chronic abdominal pain, chronic diarrhea and nausea. In the ED, vital signs remarkable for marked tachycardia, tachypnea and low O2 sats at 86% on 2 L/min of supplemental oxygen. Venous blood gas showed pH of 7.41 CO 52. COVID-19, influenza and RSV is negative. CXR personally by me with evidence of hazy nodular opacities in a centrilobular distribution suggestive of bronchopneumonia noted in the right lower lobe. The patient notes that the floor she still having some wheezing on examination. Otherwise she feels a little better. Still not her baseline still on 4 L of oxygen. Review of Systems Constitutional: Constitutional: Denies fever(s) Eyes: Eyes: Reports no additional eye complaints ENT: Reports nasal congestion Cardiovascular: Cardiovascular: Denies chest pain and Reports dyspnea Respiratory: Respiratory: Reports chest congestion, Reports cough, Reports dyspnea and Reports wheezing Gastrointestinal: Gastrointestinal: Reports no additional gastrointestinal complaints Musculoskeletal: Musculoskeletal: Reports no additional musculoskeletal complaints Integumentary/Breasts: Skin/Breast: Denies rash Hematologic/Lymphatic: Hematologic/Lymphatic: Reports no additional hematologic/lymphatic complaints Allergic/Immunologic: Allergic/Immunologic: Reports wheezing PMFSH Past Medical History Medical History (Updated 07/27/24 @ 09:04 by Cristóbal Paulson MD) CAP (community acquired pneumonia) Acute on chronic hypoxic respiratory failure COPD mixed type Gastritis Gastroparesis COPD (chronic obstructive pulmonary disease) Shortness of breath Hypochromic anemia Type 2 diabetes mellitus without complication, with no history of insulin use Heavy cigarette smoker Diabetic gastroparesis COPD (chronic obstructive pulmonary disease) Mixed dyslipidemia Essential hypertension GERD (gastroesophageal reflux disease) Diastolic CHF with preserved left ventricular function, NYHA class 2 Chronic hypercapnic respiratory failure Type 2 diabetes mellitus with other diabetic kidney complication Type 2 diabetes mellitus without complication, with no history of insulin use Smoker unmotivated to quit Postlaminectomy syndrome of cervical region Seasonal allergic rhinitis Degenerative disc disease, cervical Postmenopause Dyslipidemia Family History Family History Mother Diabetes Sister Diabetes Mental health disorder Brother Diabetes Father HTN (hypertension) Surgical History Surgical History H/O cervical discectomy History of esophagogastroduodenoscopy (EGD) Hx of colonoscopy Social History Social History Household Members: Significant Other Housing: Other Housing Other:: mobile home Do you presently have visiting nurse or other home services: Yes ([facility]) Alcohol intake: never Comment: Commode/ Hi Flow O2 Patient Tobacco Use Status: Current everyday Tobacco user Tobacco use type: Cigarette Cigarette Packs Per Day: 0.5 Cigarettes Per Day: 10.0 Years Smoked: 50 e-Cigarette/Vaping Use: Never Used Second Hand Smoke Exposure: Yes Advance Directives Date on File: 08/02/23 service: No Current occupational status: unemployed Cognitive needs: No Hearing needs: No Vision needs: Yes Meds Allergies Allergy/AdvReac Type Severity Reaction Status Date / Time amoxicillin [AMOXICILLIN] Allergy Intermediate RASH Verified 07/25/24 15:42 Active Medications: Current Medications Acetaminophen (Acetaminophen 325 Mg Tablet) 975 mg PO Q6H PRN PRN Reason: Pain, Mild (Pain Scale 1-3), fever or headache Albuterol Sulfate (Albuterol Sulfate (0.083%) 2.5 Mg/3 Ml Vial.Neb) 2.5 mg INHALE Q2H PRN PRN Reason: Shortness of Breath/Wheezing Albuterol/Ipratropium (Albuterol/Iprat 2.5/0.5mg 3 Ml Ampul.Neb) 3 ml INHALE RQ4H WHILE AWAKE [facility] Last Admin: 07/27/24 07:52 Dose: Not Given Amlodipine Besylate (Amlodipine Besylate 5 Mg Tablet) 5 mg PO DAILY [facility]; Protocol Last Admin: 07/27/24 08:45 Dose: 5 mg Aspirin (Aspirin Enteric Coated 81 Mg Tablet.) 81 mg PO BEDTIME [facility] Last Admin: 07/26/24 20:11 Dose: 81 mg Atorvastatin Calcium (Atorvastatin Calcium 20 Mg Tablet) 20 mg PO DAILY [facility] Last Admin: 07/27/24 08:45 Dose: 20 mg Baclofen (Baclofen 10 Mg Tablet) 10 mg PO TID [facility] Last Admin: 07/27/24 08:45 Dose: 10 mg Enoxaparin Sodium (Enoxaparin Sodium 40 Mg/0.4 Ml Syringe) 40 mg SUBCUT Q24H [facility] Last Admin: 07/27/24 08:45 Dose: 40 mg Famotidine (Famotidine 20 Mg Tablet) 40 mg PO BEDTIME [facility] Last Admin: 07/26/24 20:10 Dose: 40 mg Ferrous Sulfate (Ferrous Sulfate 324 Mg Tablet.) 324 mg PO DAILY [facility] Last Admin: 07/27/24 08:44 Dose: 324 mg Gabapentin (Gabapentin 400 Mg Capsule) 800 mg PO TID [facility] Last Admin: 07/27/24 08:44 Dose: 800 mg Losartan Potassium (Losartan Potassium 50 Mg Tablet) 50 mg PO DAILY [facility]; Protocol Last Admin: 07/27/24 08:44 Dose: 50 mg Magnesium Oxide (Magnesium Oxide 400 Mg Tablet) 400 mg PO DAILY [facility] Last Admin: 07/27/24 08:44 Dose: 400 mg Methylprednisolone Sodium Succinate (Methylprednisolone Sod Succ 40 Mg/Ml Vial) 40 mg IVPUSH Q12H [facility] Last Admin: 07/27/24 08:45 Dose: 40 mg Metoclopramide HCl (Metoclopramide Hcl 10 Mg Tablet) 20 mg PO TIDAC [facility] Last Admin: 07/27/24 08:45 Dose: 20 mg Nicotine (Nicotine 14 Mg Patch.Td24) 14 mg TRANSDERMA DAILY [facility] Last Admin: 07/27/24 08:45 Dose: 14 mg Non-Formulary Medication (Varenicline) 1 mg PO BID [facility] Non-Formulary Medication (Linaclotide [Linzess]) 72 mcg PO DAILY [facility] Omeprazole (Omeprazole 20 Mg Capsule.) 20 mg PO DAILY@0630 [facility] Last Admin: 07/27/24 06:32 Dose: Not Given Psyllium Hydrophilic Mucilloid (Psyllium Seed 3.7 Gm Packet) 3.7 gm PO BID [facility] Last Admin: 07/27/24 08:48 Dose: Not Given Simethicone (Simethicone 80 Mg Tab.Chew) 80 mg PO QID [facility] Last Admin: 07/27/24 08:44 Dose: 80 mg Sitagliptin Phosphate (Sitagliptin Phosphate 100 Mg Tablet) 100 mg PO DAILY [facility] Last Admin: 07/27/24 08:44 Dose: 100 mg Sodium Chloride (0.9 % Sodium Chloride Flush 3 Ml Syringe) 3 ml IVFLUSH QSHIFT [facility] Last Admin: 07/27/24 08:48 Dose: 3 ml Vitamin D (Cholecalciferol (Vitamin D3) 25 Mcg Tablet) 50 mcg PO DAILY [facility] Last Admin: 07/27/24 08:45 Dose: 50 mcg Home Medications ?Medication ?Instructions ?Recorded ?Confirmed ?Last Taken ?Type aspirin 81 mg tablet,delayed 81 mg PO BEDTIME 01/10/21 07/26/24 07/25/24 History release (Adult Low Dose Aspirin) psyllium husk 0.52 gram capsule 1.04 g PO BID Constipation 02/28/24 07/26/24 07/25/24 History (Fiber Laxative (psyllium husk)) baclofen 10 mg tablet 10 mg PO TID 05/06/24 07/26/24 07/25/24 History metformin 1,000 mg tablet 1,000 mg PO BID 05/06/24 07/26/24 07/25/24 History lansoprazole 30 mg capsule,delayed 30 mg PO DAILY@0630 05/21/24 07/26/24 07/25/24 History release acetaminophen 650 mg 650 mg PO TID PRN Pain 05/30/24 07/26/24 Unknown History tablet,extended release ferrous sulfate 324 mg (65 mg 324 mg PO DAILY 05/30/24 07/26/24 07/25/24 History iron) tablet,delayed release nicotine 14 mg/24 hr daily 1 patch topical DAILY 05/30/24 07/26/24 07/25/24 History transdermal patch linaclotide 72 mcg capsule 72 mcg PO DAILY 07/12/24 07/26/24 07/25/24 History (Linzess) famotidine 40 mg tablet 40 mg PO BEDTIME 07/26/24 07/26/24 07/25/24 History fluticasone furoate 200 1 inh inhalation DAILY 07/26/24 07/26/24 07/25/24 History mcg/actuation blister powder for inhalation (Arnuity Ellipta) simethicone 180 mg capsule 180 mg PO QID 07/26/24 07/26/24 07/25/24 History (Anti-Gas Ultra Strength) sitagliptin phosphate 100 mg 100 mg PO DAILY 07/26/24 07/26/24 07/25/24 History tablet (Januvia) umeclidinium 62.5 mcg-vilanterol 1 ea inhalation DAILY 07/26/24 07/26/24 07/25/24 History 25 mcg/actuation powdr for inhalation (Anoro Ellipta) varenicline 1 mg tablet 1 mg PO BID 07/26/24 07/26/24 07/25/24 History Physical Exam Vital Signs: Vital Signs: Last Vital Signs Temp 97.3 F 07/27/24 08:00 Pulse 87 07/27/24 08:00 Resp 20 07/27/24 08:00 BP 130/60 07/27/24 08:00 Pulse Ox 94 07/27/24 03:39 O2 Del Method Nasal Cannula 07/27/24 08:00 O2 Flow Rate 4 07/27/24 08:00 BMI result Body Mass Index 24.7 Const: General: comfortable HEENT: Head: Yes normocephalic Neck: Neck: Yes supple Chest: Chest palpation & inspection: normal inspection of the chest Resp: Effort & Inspection: normal respiratory effort and symmetric chest movement Auscultation: rhonchi and wheezes Cardio: Heart sounds: S1 normal heart sound present and S2 normal heart sound present GI: Palpation (GI): Soft to palpation Skin: General skin exam: no rashes or lesions noted Extrem: General: No cyanosis and No edema Results Laboratory Findings 07/27/24 06:58 07/27/24 06:58 Abnormal lab findings: Abnormal Labs 07/25/24 07/26/24 07/26/24 16:18 01:59 04:55 WBC 14.5 H 21.7 H Hgb 11.8 L MCH 25.6 L 25.4 L MCHC 30.8 L 30.8 L RDW 17.6 H 17.7 H Immature Gran % (Auto) 0.6 H Lymph % (Auto) 19.9 L Abs Immat Gran (auto) 0.08 H Absolute Neuts (auto) 10.2 H Neutrophils % (Manual) 91 H Band Neutrophils % 7 H Abs Neuts (Manual) 21.3 H VBG HCO3 33 H BUN 6 L Random Glucose 317 H Calcium 10.9 H D 10.6 H 07/27/24 06:58 WBC 26.2 H Hgb 11.4 L MCH 25.4 L MCHC 30.5 L RDW 18.0 H Immature Gran % (Auto) Lymph % (Auto) Abs Immat Gran (auto) Absolute Neuts (auto) Neutrophils % (Manual) Band Neutrophils % Abs Neuts (Manual) VBG HCO3 BUN Random Glucose 195 H Calcium Assessment and Plan (1) Acute on chronic hypoxic respiratory failure: Status: Acute (2) COPD (chronic obstructive pulmonary disease) with emphysema: Status: Acute (3) CAP (community acquired pneumonia): Qualifiers: Laterality: right Lung location: lower lobe of lung Qualified Code(s): J18.9 - Pneumonia, unspecified organism Status: Acute Plan repeat CXR start Levaquin/doxy IV ->PO 24/48 hours conitnue solumedrol oxygen to keep POx>90% CPT with catina Chowdhury Procedures Date of Service Date of Service: 07/27/24
--- NOTE | 2024-07-27 09:20 | MHC.CM.PN ---
Pt lives at home with her boyfriend, has a [facility] visit once a week, has home O2 through [facility]. Pts boyfriend will transport her home at discharge. HCP on file and verified. PCP: Dr. Magalie Nicolas
[2024-07-27] MEDS: Doxycycline Hyclate 100 MG in 0.9 % Sodium Chloride 250 ML 166.67 MG IV ×2 (10:45→21:03)
[2024-07-27] MEDS: levoFLOXacin/D5W 500 MG/100 ML PIGGYBACK 100 MG IV (12:26)
--- NOTE | 2024-07-27 12:44 | HO.PM.IMPN ---
Subjective Subjective Date of Service: 07/27/24 Interval History: hypoxia Review of Systems sob with minimal excersion no fevers has leucocytosis Physical Exam Vital Signs: Vital Signs: Last Vital Signs Temp 97.5 F 07/27/24 11:16 Pulse 93 07/27/24 11:16 Resp 20 07/27/24 11:16 BP 120/58 L 07/27/24 11:16 Pulse Ox 94 07/27/24 11:16 O2 Del Method Nasal Cannula 07/27/24 11:16 O2 Flow Rate 4 07/27/24 11:16 BMI result Body Mass Index 24.7 Appearance: Alert.? Oriented X3.. cvs: rrr, [id number] , no murmur res: air entry seems diminshed ,no rales or wheezing abd: no rebound or guarding ,nt, bs present. ext pulses present , no cyanosis . neuro: axo3 , nonfocal. Objective Data Active Medications Acetaminophen (Acetaminophen 325 Mg Tablet) 975 mg PO Q6H PRN PRN Reason: Pain, Mild (Pain Scale 1-3), fever or headache Albuterol Sulfate (Albuterol Sulfate (0.083%) 2.5 Mg/3 Ml Vial.Neb) 2.5 mg INHALE Q2H PRN PRN Reason: Shortness of Breath/Wheezing Albuterol/Ipratropium (Albuterol/Iprat 2.5/0.5mg 3 Ml Ampul.Neb) 3 ml INHALE RQ4H WHILE AWAKE [facility] Last Admin: 07/27/24 11:07 Dose: Not Given Documented By: PATI Non-Admin Reason: Patient Refused Amlodipine Besylate (Amlodipine Besylate 5 Mg Tablet) 5 mg PO DAILY [facility]; Protocol Last Admin: 07/27/24 08:45 Dose: 5 mg Documented By: MARTI Aspirin (Aspirin Enteric Coated 81 Mg Tablet.) 81 mg PO BEDTIME [facility] Last Admin: 07/26/24 20:11 Dose: 81 mg Documented By: LONNIE Atorvastatin Calcium (Atorvastatin Calcium 20 Mg Tablet) 20 mg PO DAILY [facility] Last Admin: 07/27/24 08:45 Dose: 20 mg Documented By: MARTI Baclofen (Baclofen 10 Mg Tablet) 10 mg PO TID [facility] Last Admin: 07/27/24 08:45 Dose: 10 mg Documented By: MARTI Enoxaparin Sodium (Enoxaparin Sodium 40 Mg/0.4 Ml Syringe) 40 mg SUBCUT Q24H [facility] Last Admin: 07/27/24 08:45 Dose: 40 mg Documented By: MARTI Famotidine (Famotidine 20 Mg Tablet) 40 mg PO BEDTIME [facility] Last Admin: 07/26/24 20:10 Dose: 40 mg Documented By: LONNIE Ferrous Sulfate (Ferrous Sulfate 324 Mg Tablet.) 324 mg PO DAILY [facility] Last Admin: 07/27/24 08:44 Dose: 324 mg Documented By: MARTI Gabapentin (Gabapentin 400 Mg Capsule) 800 mg PO TID [facility] Last Admin: 07/27/24 08:44 Dose: 800 mg Documented By: MARTI Levofloxacin (Levaquin) 500 mg in 100 mls @ 100 mls/hr IV Q24H [facility] Last Admin: 07/27/24 12:26 Dose: 100 mls/hr Documented By: MARTI Doxycycline Hyclate 100 mg/ (Sodium Chloride) 250 mls @ 166.67 mls/hr IV Q12H [facility] Last Infusion: 07/27/24 12:15 Dose: Infused Documented By: MARTI Losartan Potassium (Losartan Potassium 50 Mg Tablet) 50 mg PO DAILY [facility]; Protocol Last Admin: 07/27/24 08:44 Dose: 50 mg Documented By: MARTI Magnesium Oxide (Magnesium Oxide 400 Mg Tablet) 400 mg PO DAILY [facility] Last Admin: 07/27/24 08:44 Dose: 400 mg Documented By: MARTI Metoclopramide HCl (Metoclopramide Hcl 10 Mg Tablet) 20 mg PO TIDAC [facility] Last Admin: 07/27/24 12:26 Dose: 20 mg Documented By: MARTI Nicotine (Nicotine 14 Mg Patch.Td24) 14 mg TRANSDERMA DAILY [facility] Last Admin: 07/27/24 08:45 Dose: 14 mg Documented By: MARTI Non-Formulary Medication (Varenicline) 1 mg PO BID [facility] Non-Formulary Medication (Linaclotide [Linzess]) 72 mcg PO DAILY [facility] Omeprazole (Omeprazole 20 Mg Capsule.) 20 mg PO DAILY@0630 [facility] Last Admin: 07/27/24 06:32 Dose: Not Given Documented By: LONNIE Non-Admin Reason: Patient Asleep Prednisone (Prednisone 20 Mg Tablet) 40 mg PO DAILY [facility] Psyllium Hydrophilic Mucilloid (Psyllium Seed 3.7 Gm Packet) 3.7 gm PO BID [facility] Last Admin: 07/27/24 08:48 Dose: Not Given Documented By: MARTI Non-Admin Reason: Patient Refused Simethicone (Simethicone 80 Mg Tab.Chew) 80 mg PO QID [facility] Last Admin: 07/27/24 12:26 Dose: 80 mg Documented By: MARTI Sitagliptin Phosphate (Sitagliptin Phosphate 100 Mg Tablet) 100 mg PO DAILY [facility] Last Admin: 07/27/24 08:44 Dose: 100 mg Documented By: MARTI Sodium Chloride (0.9 % Sodium Chloride Flush 3 Ml Syringe) 3 ml IVFLUSH QSHIFT [facility] Last Admin: 07/27/24 08:48 Dose: 3 ml Documented By: MARTI Vitamin D (Cholecalciferol (Vitamin D3) 25 Mcg Tablet) 50 mcg PO DAILY [facility] Last Admin: 07/27/24 08:45 Dose: 50 mcg Documented By: MARTI Labs 07/27/24 06:58 07/27/24 06:58 Labs: Laboratory Results - last 24 hr 07/27/24 06:58 MCV 83.5 MCH 25.4 L MCHC 30.5 L RDW 18.0 H Plt Count 345 MPV 11.1 Absolute Nucleated RBC 0.000 Nucleated RBC % (auto) 0.0 Anion Gap 18 Estim Creat Clear Calc 73.8 Estimated GFR > 60 Random Glucose 195 H Calcium 10.1 Assessment and Plan (1) Acute exacerbation of chronic obstructive pulmonary disease: Status: Resolved Assessment and Plan: 64 y/o woman admitted with: Acute on chronic hypoxic respiratory failure secondary to acute exacerbation of COPD. sob with minimal excersion Continue bronchodilator therapy, IV steroids, IV antibiotics. Supplemental O2 to keep O2 sats 88- 90%. taper oxygen Type 2 diabetes mellitus with hyperglycemia (possible sec to steriods). BG checks before meals at bedtime. Hold metformin. Continue sitagliptin. Insulin sliding scale. Diabetic diet. switched to po steriods. Essential hypertension. Continue amlodipine and losartan. Hyperlipidemia. Continue statin. Ongoing tobacco smoking. Tobacco cessation education. Nicotine patch. GERD. Continue PPI. DVT prophylaxis: Lovenox. ongoing hospitalization need for acute on chronic hypoxic respiratory failure secondary to acute exacerbation of COPD treatment with supplemental oxygen, bronchodilator therapy, IV antibiotics and steroids. Quality Stroke Does the patient have a stroke diagnosis?: No VTE Prior VTE?: No VTE Risk Level:: Medical - moderate - high VTE Device Contraindication: Treatment Not Indicated VTE Drug Contraindication: N/A - Med Ordered
[2024-07-27] MEDS: Albuterol/Iprat 2.5/0.5MG 3 ML AMPUL.NEB INHALE ×2 (15:03→18:53)
[2024-07-27 15:36] LABS: Glucose, Whole Blood 181 mg/dL (60-115)
[2024-07-27] MEDS: Insulin Lispro 100 UNIT/ML 3 ML VIAL SUBCUT ×2 (16:58→21:20)
[2024-07-27 21:07] LABS: Glucose, Whole Blood 251 mg/dL (60-115)
[2024-07-27] MEDS: Famotidine 20 MG TABLET 40 MG PO (21:07)
[2024-07-27] MEDS: Aspirin Enteric Coated 81 MG TABLET.DR PO (21:08)
[2024-07-28] VITALS: BP 126/60; PULSE 77; RESP 20; TEMP 36.3; O2SAT 95
[2024-07-28 04:00] VITALS: BP 147/67; PULSE 76; RESP 20; TEMP 36.1; O2SAT 93
[2024-07-28 07:00] LABS: Hematocrit 36.5 % (37.0-47.0); Mean Corpuscular HGB Conc 30.1 g/dl (31.0-35.0); Mean Corpuscular Hemoglobin 25.5 pg (27.0-33.0); Mean Corpuscular Volume 84.7 fL (80.0-98.0); Mean Platelet Volume 9.7 fL (9.4-12.3); Platelet Count 294 X10*3/uL (160-400); Red Blood Count 4.31 X10*6/uL (4.20-5.50); Red Cell Distribution Width 17.6 % (11.0-16.0); White Blood Count 15.9 X10*3/uL (4.8-10.8)
[2024-07-28 07:12] LABS: Estimated Average Glucose 137 mg/dL; Hemoglobin A1C 132.7093 umol/L; Hemoglobin A1c % 6.4 % (<6.0); Total Hemoglobin (HGBA1C) 2838.3981 umol/L
[2024-07-28 07:24] VITALS: PULSE 76; RESP 20; O2SAT 96
[2024-07-28] MEDS: Albuterol/Iprat 2.5/0.5MG 3 ML AMPUL.NEB INHALE ×2 (07:24→11:17)
[2024-07-28 07:57] LABS: Glucose, Whole Blood 116 mg/dL (60-115)
--- NOTE | 2024-07-28 07:59 | PM.DS ---
DS: Providers Provider Date of Service: 07/28/24 Date of admission: 07/26/24 02:07 Date of discharge: 07/28/24 Primary care physician: Magalie Nicolas MD Consults: 07/26/24 08:33 Consult to Pulmonology Routine Consulting Provider: [facility] Reason for consultation: acute on ch hypoxemic respiratory failure sec to copd. Attending physician on discharge: Grisel Erickson Discharging clinician: Grisel Erickson DS: Diagnosis Discharge Diagnosis (1) Acute exacerbation of chronic obstructive pulmonary disease: Status: Resolved DS: Summary Hospital Course Hospital Course: HPI: 64 years old woman with past medical history significant for COPD -home O2 2L/min, multiple hospitalizations due to COPD exacerbation, type 2 mellitus on metformin on metformin, essential hypertension, right renal mass (referral has been made to IR by urologist for embolization of the tumor) and ongoing tobacco smoking presents to emergency department complaining of shortness on breath. Patient is a poor historian and was nonspecific, her symptoms other than complaining of cough, chronic abdominal pain, chronic diarrhea and nausea. She denied chest pain, palpitations or dizziness. Denied illicit drug use or alcohol abuse. In the ED, vital signs remarkable for marked tachycardia, tachypnea and low O2 sats at 86% on 2 L/min of supplemental oxygen. Blood workup showed leukocytosis of 14.5 which is around baseline. Hemoglobin is 12.7 platelet 368. There are no significant electrolyte imbalances. Creatinine 0.51 and BUN 6. LFTs are normal. Venous blood gas showed pH of 7.41 CO 52. COVID-19, influenza and RSV is negative. CXR is negative. Hospital course: Patient admitted to the hospital because of shortness found to have COPD exacerbation also possible CAP-patient had leukocytosis, x-ray negative: Started steroids, nebulizers antibiotics-seems to be improved significantly, leukocytosis improving. Seen by Pulmonary: Recommended Levaquin 50 mg daily for 5 more days, prednisone 40 mg daily days. dm: Hemoglobin A1c 6.4, patient is on sitagliptin, continue diabetic diet. plan: Recommended Levaquin 50 mg daily for 5 more days, prednisone 40 mg daily days. repeat chest imaging in 3-4 weeks to see resolution of pneumonia Follow outpatient with PCP and consider outpatient pulmonary followup. Time Attestation Total time managing care of this patient today: 40 mintues. Discharge Coordination Time (in mins): 40 min Quality: Safe Use of Opioids Does Pt have an Active Cancer Diagnosis on the Problem List?: No Quality: Stroke Does the patient have a stroke diagnosis?: No Physical Exam Vital Signs: Vital Signs: Last Vital Signs Temp 97.0 F 07/28/24 04:00 Pulse 76 07/28/24 07:24 Resp 20 07/28/24 07:24 BP 147/67 H 07/28/24 04:00 Pulse Ox 93 07/28/24 04:00 O2 Del Method Nasal Cannula 07/28/24 04:00 O2 Flow Rate 1 07/28/24 04:00 BMI result Body Mass Index 24.7 Appearance: Alert.? Oriented X3.. cvs: rrr, [id number] , no murmur res: air entry seems diminshed ,no rales or wheezing abd: no rebound or guarding ,nt, bs present. ext pulses present , no cyanosis . neuro: axo3 , nonfocal. DS: Data Data Completed and Pending Labs on day of discharge: Laboratory Results - last 24 hr 07/27/24 07/27/24 07/28/24 15:31 21:03 06:26 WBC 15.9 H RBC 4.31 Hgb 11.0 L Hct 36.5 L MCV 84.7 MCH 25.5 L MCHC 30.1 L RDW 17.6 H Plt Count 294 MPV 9.7 Absolute Nucleated RBC 0.000 Nucleated RBC % (auto) 0.0 POC Glucose 181 H 251 H Estimat Average Glucose 137 Hemoglobin A1c % 6.4 H 07/28/24 07:49 WBC RBC Hgb Hct MCV MCH MCHC RDW Plt Count MPV Absolute Nucleated RBC Nucleated RBC % (auto) POC Glucose 116 H Estimat Average Glucose Hemoglobin A1c % Imaging Chest x-ray: Radiologist's impression: ITS Impressions Chest X-Ray 07/25/24 15:44 IMPRESSION: Unremarkable examination. Electronically signed by: Blue Pride MD 07/25/2024 05:25 PM [facility] [place] Discharge Anticipated Discharge Date/Time: 07/28/24 07:52 Patient Disposition: Home, Self-Care Discharge Diagnosis: copd excerebation,pneumonia Referrals: Magalie Nicolas MD [Primary Care Provider] - 1 Week Discharge Medications: New levofloxacin 750 mg tablet 750 mg PO DAILY Qty: 5 0RF Continued (DME) lancets [FreeStyle Lancets] 28 gauge misc See Rx Instructions .Route Qty: 100 5RF Rx Instructions: As directed twice a day AC (DME) FreeStyle Lite Strips Strip See Rx Instructions .Route Qty: 100 0RF Rx Instructions: check fasting blood sugar twice a day before meals (DME) FreeStyle Cristian 2 Sensor Kit See Rx Instructions .Route Qty: 6 3RF Rx Instructions: Test blood sugar 4 times per day (DME) FreeStyle Cristian 2 [place] Misc See Rx Instructions .Route Qty: 1 0RF Rx Instructions: test blood sugar 4 times per day gabapentin 800 mg tablet 800 mg PO TID 30 Days Qty: 90 6RF rosuvastatin 5 mg tablet 5 mg PO DAILY Qty: 90 1RF losartan 50 mg tablet 50 mg PO DAILY Qty: 90 1RF amlodipine 5 mg tablet 5 mg PO DAILY Qty: 90 1RF cholecalciferol (vitamin D3) 50 mcg (2,000 unit) capsule 50 mcg PO DAILY Qty: 90 1RF psyllium husk [Fiber Laxative (psyllium husk)] 0.52 gram capsule 1.04 g PO BID baclofen 10 mg tablet 10 mg PO TID metformin 1,000 mg tablet 1,000 mg PO BID lansoprazole 30 mg capsule,delayed release(DR/EC) 30 mg PO DAILY@0630 acetaminophen 650 mg Tablet Extended Release 650 mg PO TID PRN (Reason: Pain) ferrous sulfate 324 mg (65 mg iron) tablet,delayed release (DR/EC) 324 mg PO DAILY nicotine 14 mg/24 hr patch 24 hour 1 patch topical DAILY magnesium oxide 400 mg (241.3 mg magnesium) Tablet 400 mg PO DAILY Qty: 7 0RF simethicone [Anti-Gas Ultra Strength] 180 mg capsule 180 mg PO QID famotidine 40 mg tablet 40 mg PO BEDTIME varenicline 1 mg tablet 1 mg PO BID Januvia 100 mg tablet 100 mg PO DAILY Anoro Ellipta 62.5-25 mcg/actuation blister with device 1 ea INHALATION DAILY Arnuity Ellipta 200 mcg/actuation blister with device 1 inh inhalation DAILY aspirin [Adult Low Dose Aspirin] 81 mg tablet,delayed release (DR/EC) 81 mg PO BEDTIME (DME) blood-glucose meter [FreeStyle Lite Meter] Kit See Rx Instructions .Route Qty: 1 0RF Rx Instructions: As directed twice a day before meals Linzess 72 mcg capsule 72 mcg PO DAILY metoclopramide HCl [Reglan] 10 mg tablet 20 mg PO TIDWMEAL Qty: 180 6RF ipratropium-albuterol 0.5 mg-3 mg(2.5 mg base)/3 mL solution for nebulization 3 ml inhalation Q6H 30 Days Qty: 180 1RF Discharge Orders: Discharge Order (Routine); Ordered 07/28/24 Ordered By: Grisel Erickson Diet: Advance to usual diet Activity on Discharge: As tolerated Stand Alone Forms: Patient Portal Discharge page Print Language: Jordanian Care Plan Goals: Patient admitted to the hospital because of shortness found to have COPD exacerbation also possible CAP-patient had leukocytosis, x-ray negative: Started steroids, nebulizers antibiotics-seems to be improved significantly, leukocytosis improving. Seen by Pulmonary: Recommended Levaquin 50 mg daily for 5 more days, prednisone 40 mg daily days. dm: Hemoglobin A1c 6.4, patient is on sitagliptin, continue diabetic diet. plan: Recommended Levaquin 50 mg daily for 5 more days, prednisone 40 mg daily days. repeat chest imaging in 3-4 weeks to see resolution of pneumonia Follow outpatient with PCP and consider outpatient pulmonary followup. Health Concerns: As above. Plan of Treatment: Recommended Levaquin 50 mg daily for 5 more days, prednisone 40 mg daily days. repeat chest imaging in 3-4 weeks to see resolution of pneumonia Assessment: As above Patient Instructions: Pneumonia (DC), Chronic Lung Disease and Infection Prevention (DC)
[2024-07-28 08:00] VITALS: BP 115/57; PULSE 81; RESP 18; TEMP 36.1; O2SAT 96
--- NOTE | 2024-07-28 08:19 | MHC.CM.PN ---
Patient has been medically cleared for dc to home today, self care.
[2024-07-28] MEDS: amLODIPine Besylate 5 MG TABLET PO (08:28)
[2024-07-28] MEDS: Losartan Potassium 50 MG TABLET PO (08:28)
[2024-07-28] MEDS: Simethicone 80 MG TAB.CHEW PO (08:28)
[2024-07-28] MEDS: Baclofen 10 MG TABLET PO (08:28)
[2024-07-28] MEDS: Atorvastatin Calcium 20 MG TABLET PO (08:29)
[2024-07-28] MEDS: Nicotine 14 MG PATCH.TD24 TRANSDERMA (08:29)
[2024-07-28] MEDS: Cholecalciferol (Vitamin D3) 25 MCG TABLET 50 MCG PO (08:29)
[2024-07-28] MEDS: predniSONE 20 MG TABLET 40 MG PO (08:29)
[2024-07-28] MEDS: Enoxaparin Sodium 40 MG/0.4 ML SYRINGE SUBCUT (08:29)
[2024-07-28] MEDS: Metoclopramide HCl 10 MG TABLET 20 MG PO (08:29)
[2024-07-28] MEDS: Magnesium Oxide 400 MG TABLET PO (08:29)
[2024-07-28] MEDS: Ferrous Sulfate 324 MG TABLET.DR PO (08:29)
[2024-07-28] MEDS: Gabapentin 400 MG CAPSULE 800 MG PO (08:29)
[2024-07-28] MEDS: SITagliptin Phosphate 100 MG TABLET PO (08:29)
[2024-07-28] MEDS: 0.9 % Sodium Chloride Flush 3 ML SYRINGE IVFLUSH (08:35)
[2024-07-28] MEDS: Doxycycline Hyclate 100 MG in 0.9 % Sodium Chloride 250 ML 166.67 MG IV (11:15)
[2024-07-28 11:17] VITALS: PULSE 81; RESP 18; O2SAT 95
[2024-07-28 11:20] LABS: Glucose, Whole Blood 191 mg/dL (60-115)
== END 2024-07-28 12:35 | disposition home or self-care (01) | DRG 140 ==
LOC: HO.ED 07-26 01:57 → HO.EDOVER 07-26 04:24 → HO.IMC 07-26 16:55
PROVIDERS: Physician Assistant Medical; Admitting Provider Internal Medicine; Emergency Provider Internal Medicine; PCP Internal Medicine; Visit Provider Internal Medicine
DX: J44.1 Chronic obstructive pulmonary disease with (acute) exacerbation (principal); J18.9 Pneumonia, unspecified organism; J96.11 Chronic respiratory failure with hypoxia; Z99.81 Dependence on supplemental oxygen; J44.0 Chronic obstructive pulmonary disease with (acute) lower respiratory infection; E78.5 Hyperlipidemia, unspecified; F17.210 Nicotine dependence, cigarettes, uncomplicated; E11.65 Type 2 diabetes mellitus with hyperglycemia; K59.04 Chronic idiopathic constipation; Z71.6 Tobacco abuse counseling; Z20.822 Contact with and (suspected) exposure to COVID-19; Z79.82 Long term (current) use of aspirin; Z79.84 Long term (current) use of oral hypoglycemic drugs; Z79.899 Other long term (current) drug therapy
CPT/HCPCS: 0241U; 36415; 71045; 71046; 80048; 80076; 82803; 82947; 83036; 83690; 83735; 84484; 85007; 85025; 85027; 93005; 94640; 99285; J1650; J1956; J2919; J8540

== ENCOUNTER → 2024-07-25 23:55 | Outpatient (BNV) | payer OTHER, SELFPAY | PROVIDERS: Emergency Provider Internal Medicine; PCP Internal Medicine; Visit Provider Internal Medicine | DX: J96.21 Acute and chronic respiratory failure with hypoxia (principal); J44.1 Chronic obstructive pulmonary disease with (acute) exacerbation | CPT/HCPCS: 99223; 99499 ==

== ENCOUNTER 2024-07-26 02:07 | Outpatient (BNV) | payer OTHER, SELFPAY | END 2024-07-26 11:19 | PROVIDERS: Admitting Provider Internal Medicine; Emergency Provider Internal Medicine; PCP Internal Medicine; Visit Provider Internal Medicine Cardiovascular Disease | DX: R94.31 Abnormal electrocardiogram [ECG] [EKG] (principal) | CPT/HCPCS: 93010 ==

== ENCOUNTER 2024-07-26 02:07 | Outpatient (BNV) | payer OTHER, SELFPAY | END 2024-07-27 09:03 | PROVIDERS: Admitting Provider Internal Medicine; Emergency Provider Internal Medicine; PCP Internal Medicine; Visit Provider Radiology Diagnostic Radiology | DX: J18.9 Pneumonia, unspecified organism (principal) | CPT/HCPCS: 71045 ==

== ENCOUNTER → 2024-07-26 02:07 | Outpatient (BNV) | payer OTHER, SELFPAY | PROVIDERS: Admitting Provider Internal Medicine; Emergency Provider Internal Medicine; PCP Internal Medicine; Visit Provider Hospitalist | DX: J96.21 Acute and chronic respiratory failure with hypoxia (principal); J43.9 Emphysema, unspecified; J18.9 Pneumonia, unspecified organism | CPT/HCPCS: 99223 ==

== ENCOUNTER → 2024-08-03 12:28 | Outpatient (BNV) | payer OTHER, SELFPAY | PROVIDERS: Visit Provider Internal Medicine | DX: C64.1 Malignant neoplasm of right kidney, except renal pelvis (principal) | CPT/HCPCS: 99204 ==

== ENCOUNTER 2024-08-03 15:50 | Emergency (ER) | payer OTHER, SELFPAY ==
[2024-08-03] VITALS (7 sets, daily range): BP systolic 91–142; BP diastolic 41–59; PULSE 89–101; RESP 16–20; TEMP 36.2–36.9; O2SAT 91–96; BMI 24.7
--- NOTE | ~2024-08-03 | US_ITS ---
CLINICAL HISTORY: ruq pain US abdomen limited Comparison: None Findings: The visualized pancreas is normal. The liver is normal in size with increase of echogenicity. There is no intrahepatic bile duct dilatation. The common duct is 2.0 mm in diameter. There are multiple non mobile small echogenicities of the gallbladder measuring up to 2 mm. Sonographic Byrd's sign is negative. The main portal vein is antegrade. The right kidney is 11 cm in length. 2.1 x 2.1 x 2 cm solid mass of the lower pole. No ascites. IMPRESSION: There is a possible mass of the right lower pole kidney. Further evaluation by multiphase contrast CT or MRI is recommended as indicated. Hepatic steatosis. Small echogenicities of the gallbladder could represent polyps or non mobile stones. This document has been electronically signed by: Essence Villagran MD on 08/03/2024 17:43:08
--- NOTE | ~2024-08-03 | XR_ITS ---
CLINICAL HISTORY: Chronic short of breath 1 view chest x-ray Comparison: CR/AK/SR - XR CHEST 1V - 07/27/2024 09:46 AM EST Findings: The lungs are clear. Heart size is normal. No acute fracture. IMPRESSION: 1. No acute findings. This document has been electronically signed by: Essence Villagran MD on 08/03/2024 18:15:18
--- NOTE | 2024-08-03 16:00 | ECG_ITS ---
Test Reason : chest pain Blood Pressure : / mmHG Vent. Rate : 098 BPM Atrial Rate : 098 BPM P-R Int : 112 ms QRS Dur : 092 ms QT Int : 356 ms P-R-T Axes : 072 088 057 degrees QTc Int : 454 ms Normal sinus rhythm Incomplete right bundle branch block Nonspecific ST and T wave abnormality Abnormal ECG When compared with ECG of 26-JUL-2024 11:19, Nonspecific ST and T wave abnormality more prominent Referred By: Leslie Bebee Electronically Signed By:SHANKAR GARCIA
--- NOTE | 2024-08-03 16:00 | ED.ABDPAIN ---
HPI - Abdominal Pain General Chief Complaint: Abdominal Pain Stated Complaint: Upper abdominal pain Time Seen by Provider: 08/03/24 16:44 Source: patient, RN notes reviewed and old records reviewed Mode of arrival: ambulatory History of Present Illness ED Provider: Sharri Land PA-C HPI narrative: 64-year-old female with a past medical history COPD on 2L NC baseline, anemia, diabetes, diabetic gastroparesis, HTN, HLD, presenting to the ED complaining of epigastric abdominal pain, nausea, and diarrhea x months. States pain is constant without alleviating or exacerbating factors. Reports chronic cough/SOB, unchanged from typical. Denies fever, chills, vomiting, dysuria/hematuria Related Data Home Medications ?Medication ?Instructions ?Recorded ?Confirmed aspirin 81 mg tablet,delayed 81 mg PO BEDTIME 01/10/21 08/03/24 release (Adult Low Dose Aspirin) psyllium husk 0.52 gram capsule 1.04 g PO BID Constipation 02/28/24 08/03/24 (Fiber Laxative (psyllium husk)) baclofen 10 mg tablet 10 mg PO TID 05/06/24 08/03/24 metformin 1,000 mg tablet 1,000 mg PO BID 05/06/24 08/03/24 lansoprazole 30 mg capsule,delayed 30 mg PO DAILY@0630 05/21/24 08/03/24 release acetaminophen 650 mg 650 mg PO TID PRN Pain 05/30/24 08/03/24 tablet,extended release ferrous sulfate 324 mg (65 mg 324 mg PO DAILY 05/30/24 08/03/24 iron) tablet,delayed release nicotine 14 mg/24 hr daily 1 patch topical DAILY 05/30/24 08/03/24 transdermal patch linaclotide 72 mcg capsule 72 mcg PO DAILY 07/12/24 08/03/24 (Linzess) famotidine 40 mg tablet 40 mg PO BEDTIME 07/26/24 08/03/24 fluticasone furoate 200 1 inh inhalation DAILY 07/26/24 08/03/24 mcg/actuation blister powder for inhalation (Arnuity Ellipta) simethicone 180 mg capsule 180 mg PO QID 07/26/24 08/03/24 (Anti-Gas Ultra Strength) sitagliptin phosphate 100 mg 100 mg PO DAILY 12/11/24 12/19/24 tablet (Januvia) umeclidinium 62.5 mcg-vilanterol 1 ea inhalation DAILY 07/26/24 08/03/24 25 mcg/actuation powdr for inhalation (Anoro Ellipta) varenicline 1 mg tablet 1 mg PO BID 07/26/24 08/03/24 Previous Rx's ?Medication ?Instructions ?Recorded blood-glucose meter (FreeStyle #1 ea 10/03/21 Lite Meter kit) lancets 28 gauge (FreeStyle #100 ea 01/06/22 Lancets) FreeStyle Lite Strips (blood sugar #100 ea 03/10/22 diagnostic) flash glucose sensor (FreeStyle #6 ea 02/19/23 Cristian 2 Sensor kit) flash glucose scanning reader #1 ea 03/26/23 (FreeStyle Cristian 2 Daykin) gabapentin 800 mg tablet 800 mg PO TID 30 days #90 tabs 01/26/24 magnesium oxide 400 mg (241.3 mg 400 mg PO DAILY #7 tabs 06/01/24 magnesium) tablet ipratropium 0.5 mg-albuterol 3 mg 3 ml inhalation Q6H wheezing 1 06/21/24 (2.5 mg base)/3 mL nebulization month #180 mL soln losartan 50 mg tablet 50 mg PO DAILY #90 tabs 07/11/24 rosuvastatin 5 mg tablet 5 mg PO DAILY #90 tabs 07/11/24 metoclopramide HCl 10 mg tablet 20 mg (2 x 10 mg) PO TIDWMEAL #180 07/12/24 (Reglan) tabs amlodipine 5 mg tablet 5 mg PO DAILY #90 tabs 07/21/24 cholecalciferol (vitamin D3) 50 50 mcg PO DAILY #90 caps 07/21/24 mcg (2,000 unit) capsule levofloxacin 750 mg tablet 750 mg PO DAILY #5 tabs 07/28/24 prednisone 20 mg tablet 40 mg (2 x 20 mg) PO DAILY #8 tabs 07/28/24 Allergies Allergy/AdvReac Type Severity Reaction Status Date / Time amoxicillin [AMOXICILLIN] Allergy Intermediate RASH Verified 08/03/24 16:00 Review of Systems Review of Systems Yes all other systems are reviewed and are negative Constitutional: Reports as per [facility] Past Medical History Attestation statement: The following information was validated with the patient. Source: old records reviewed Medical History CAP (community acquired pneumonia) Acute on chronic hypoxic respiratory failure COPD mixed type Gastritis Gastroparesis COPD (chronic obstructive pulmonary disease) Shortness of breath Hypochromic anemia Type 2 diabetes mellitus without complication, with no history of insulin use Heavy cigarette smoker Diabetic gastroparesis COPD (chronic obstructive pulmonary disease) Mixed dyslipidemia Essential hypertension GERD (gastroesophageal reflux disease) Diastolic CHF with preserved left ventricular function, NYHA class 2 Chronic hypercapnic respiratory failure Type 2 diabetes mellitus with other diabetic kidney complication Type 2 diabetes mellitus without complication, with no history of insulin use Smoker unmotivated to quit Postlaminectomy syndrome of cervical region Seasonal allergic rhinitis Degenerative disc disease, cervical Postmenopause Dyslipidemia Surgical History H/O cervical discectomy History of esophagogastroduodenoscopy (EGD) Hx of colonoscopy Family History Family History Mother Diabetes Sister Diabetes Mental health disorder Brother Diabetes Father HTN (hypertension) Social History Social History Household Members: Significant Other Housing: Other Housing Other:: mobile home Do you presently have visiting nurse 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) Alcohol intake: never Comment: Commode/ Hi Flow O2 Patient Tobacco Use Status: Current everyday Tobacco user Tobacco use type: Cigarette Cigarette Packs Per Day: 0.5 Years Smoked: 50 Smoked in Last 30 Days: No e-Cigarette/Vaping Use: Never Used Second Hand Smoke Exposure: Yes Use of substances other than those prescribed or required for medical reasons: No Advance Directives: Yes Advance Directives on File: Yes Advance Directives Date on File: 08/02/23 Do you have a plan to hurt others: No Plan service: No Current occupational status: unemployed and disabled Gender identity: Female Cognitive needs: No Hearing needs: No Vision needs: Yes Physical Exam ED Vital Signs: Vital Signs - 24 hr 08/03/24 15:58 08/03/24 16:00 08/03/24 17:06 Temperature 97.2 F 98.4 F Pulse Rate 100 94 92 Respiratory Rate 20 18 16 Blood Pressure 132/51 L 137/59 L Pulse Oximetry 96 94 Oxygen Delivery Method Nasal Cannula Nasal Cannula Oxygen Flow Rate 2 08/03/24 18:00 08/03/24 18:36 08/03/24 20:00 Temperature Pulse Rate 89 101 H 99 Respiratory Rate 18 18 18 Blood Pressure 91/41 L 142/58 H 111/48 L Pulse Oximetry 92 91 L 93 Oxygen Delivery Method Nasal Cannula Nasal Cannula Nasal Cannula Oxygen Flow Rate 2 2 08/03/24 20:33 Temperature 98 F Pulse Rate 99 Respiratory Rate 18 Blood Pressure 111/48 L Pulse Oximetry 93 Oxygen Delivery Method Nasal Cannula Oxygen Flow Rate 2 BMI result Body Mass Index 24.7 Const General: cooperative, healthy appearing and no acute distress Orientation/consciousness: patient oriented x3 Limitations: no limitations HENMT Head: Yes normal to inspection and Yes atraumatic Ears: hearing grossly normal bilaterally General nose exam: Normal external nose present Face and sinus: Yes normal facial exam Eyes General: appearance normal, both eyes and all related structures EOM: EOMs intact bilaterally Neck Neck: Yes normal visual inspection and Yes no meningeal signs Resp Effort & Inspection: normal respiratory effort and no respiratory distress Auscultation: wheezes expiratory wheezes and lower bilaterally Cardio Rate: regular rate Heart sounds: S1 normal heart sound present and S2 normal heart sound present GI Inspection: Yes normal to inspection Palpation (GI): Soft to palpation, Tenderness to palpation present (GI) in the epigastrum and in the RUQ; with no rebound tenderness, no guarding and not rigid Skin Rashes: no rashes Wounds: no wounds Neuro General: patient oriented x3, tone normal and no meningeal signs Cranial nerves: Yes CN's II-XII intact bilaterally Gait exam (Neuro): Normal gait present Extrem General: Yes normal to inspection Course Course Course Narrative: This is a Rapid Medical Examination (RME) performed by Emily Beebe PA-C in triage. Full HPI, ROS, assessment and treatment plan per primary provider in the Main ED. 64 yo female with hx COPD on 2L NC [place] [facility] [place] presents to the ER for evaluation of ongoing epigastric pain, nausea, cough and feeling lightheaded. she has been to the ER multiple times over the last 2 months with similar complaints. VSS in triage, speaking in complete sentences. Plan: labs, EKG, CXR, viral swab. --leukocytosis of 19.9 > appears acute on chronic & patient is currently on prednisone taper -magnesium low at 1.2 > 2g IV repletion ordered. Troponin negative > mi unlikely -chest x-ray unremarkable US abdomen limited IMPRESSION: There is a possible mass of the right lower pole kidney. Further evaluation by multiphase contrast CT or MRI is recommended as indicated. Hepatic steatosis. Small echogenicities of the gallbladder could represent polyps or non mobile stones. > results discussed with patient including possible mass to the right lower kidney pole (which patient is already aware of) with recommended outpatient CT or MRI for further eval -2018--magnesium normalize to 2.5 after IV repletion. UA negative. Results discussed with patient including worrisome signs and symptoms and strict return precautions, and when to return to the emergency department. They verbalized understanding and feel safe for discharge at this time. Medical Decision Making Medical Decision Making [facility] Narrative: 64-year-old female with a past medical history COPD on 2L NC baseline, anemia, diabetes, diabetic gastroparesis, HTN, HLD, presenting to the ED complaining of epigastric abdominal pain, nausea, and diarrhea x months. On exam vital signs stable, NAD, nontoxic appearing, bibasilar expiratory wheeze appreciated, abdomen soft with epigastric/RUQ tenderness, no rebound or guarding. Concern for biliary colic vs cholecystitis/lithiasis vs pancreatitis. Renal stone on differential however lower. Concern for chronic COPD. Rule out pneumonia vs bronchitis. Low suspicion for ACS/PE Plan: EKG, labs, UA, CXR, ED bronchodilator protocol, ultrasound, re-evaluate Please refer to course for remaining clinical decision making, interpretation of labs/imaging results, and discussions with consultants and/or family members. Differential Diagnosis Differential Diagnoses: The differential diagnosis associated with the presentation includes As above Admission/Observation Consideration of admission/observation: Escalation of care including admission/observation considered Lab Data [facility] Lab Attestation statement: I reviewed the patient's lab results. 08/03/24 17:21 08/03/24 17:21 Labs: Lab Results 08/03/24 08/03/24 08/03/24 Range/Units 17:21 19:20 19:48 WBC 19.9 H (4.8-10.8) X10*3/uL RBC 4.78 (4.20-5.50) X10*6/uL Hgb 12.4 (12.0-16.0) g/dl Hct 39.8 (37.0-47.0) % MCV 83.3 (80.0-98.0) fL MCH 25.9 L (27.0-33.0) pg MCHC 31.2 (31.0-35.0) g/dl RDW 18.0 H (11.0-16.0) % Plt Count 320 (160-400) X10*3/uL MPV 9.5 (9.4-12.3) fL Immature Gran % (Auto) 1.2 H (0.0-0.4) % Neut % (Auto) 67.1 (45-73) % Lymph % (Auto) 24.5 (20-40) % Davidson % (Auto) 6.1 (2-11) % Eos % (Auto) 0.6 (0-4) % Baso % (Auto) 0.5 (0-2) % Lymph # (Auto) 4.9 (1.2-4.9) X10*3/uL [place] # (Auto) 1.2 (0.1-1.2) X10*3/uL Eos # (Auto) 0.1 (0.0-0.4) X10*3/uL Baso # (Auto) 0.1 (0.0-0.2) X10*3/uL Abs Immat Gran (auto) 0.24 H (0.00-0.03) X10*3/uL Absolute Neuts (auto) 13.4 H (2.0-8.3) x10*3/uL Absolute Nucleated RBC 0.000 (0.0-0.012) X10*3/uL Nucleated RBC % (auto) 0.0 (0.0-0.2) /100WBC Sodium 142 (135-145) mmol/L Potassium 3.4 D (3.3-5.1) mmol/L Chloride 100 (96-108) mmol/L Carbon Dioxide 29 (22-29) mmol/L Anion Gap 16 (12-20) BUN 10 (9-16) mg/dL Creatinine 0.55 (0.5-1.4) mg/dL Estim Creat Clear Calc 72.4 Estimated GFR > 60 Random Glucose 97 (60-115) mg/dL Calcium 9.9 (8.4-10.2) mg/dL Magnesium 1.2 L* 2.5 (1.6-2.6) mg/dL Total Bilirubin 0.2 (0.0-1.0) mg/dL Direct Bilirubin < 0.2 (0.0-0.5) mg/dL AST 12 (5-31) U/L ALT 9 (0-31) U/L Alkaline Phosphatase 56 (39-117) U/L Troponin I High Sens 4.8 (<3.5-17.0) ng/L Total Protein 6.4 L (6.5-8.0) g/dL Albumin 4.0 (3.5-5.0) g/dL Lipase 16 (8-78) U/L Urine Color Yellow Urine Appearance Cloudy Urine pH 5.5 (5.0-9.0) Ur Specific [place] 1.020 (1.005-1.025) Urine Protein Negative (Neg-Trace) mg/dL Urine Glucose (UA) Negative (Negative) mg/dL Urine Ketones Trace (Negative) mg/dL Urine Blood Negative (Negative) Urine Nitrite Negative (Negative) Ur Leukocyte Esterase Negative (Negative) Independent Interpretation I performed an independent interpretation of an: Ultrasound Radiology Impression Discussion of test interpretation with radiology: I have reviewed the radiologist's reading. External Record Review External record reviewed: Inpatient record, Office record, Outpatient record, Prior outpatient labs, Prior outpatient radiology, Primary care record and Outside ED record Tests considered The following testing was considered but not selected: As above Prescription Management I considered prescription management with: Pain Medication Chronic Conditions Patient?s care impacted by: Diabetes, Hypertension and Other (COPD) Social Determinants Patient?s care significantly limited by Social Determinants of Health including: Inadequate housing, Problems related to primary support group and Other Social Determinant of Health Medications Administered Discontinued Medications Generic Name Dose Route Start Last Admin Trade Name Freq PRN Reason Stop Dose Admin Albuterol Sulfate 2.5 mg/ 0 mg 08/03/24 17:05 08/03/24 17:20 Albuterol/Ipratropium 3 ml INHALE 08/03/24 17:06 5 dose ONCE ONE Administration Magnesium Sulfate 2 gm in 50 mls @ 25 mls/hr 08/03/24 18:06 08/03/24 19:45 Magnesium Sulfate/H2o IV 08/03/24 20:05 Infused ONCE ONE Infusion Discharge Plan Discharge Clinical Impression: Abdominal pain Patient Disposition: Home, Self-Care Instructions: Abdominal Pain (ED) Additional Instructions: Your blood work is reassuring Your ultrasound shows possible mass of your right kidney, this should be further evaluated with your primary care doctor They also show possible gallbladder polyps or stones Please follow-up with gastroenterology Follow up with your doctor If your symptoms persist or worsen return to the emergency department Prescriptions: No Action (DME) lancets [FreeStyle Lancets] 28 gauge misc See Rx Instructions .Route Qty: 100 5RF Rx Instructions: As directed twice a day AC (DME) FreeStyle Lite Strips Strip See Rx Instructions .Route Qty: 100 0RF Rx Instructions: check fasting blood sugar twice a day before meals (DME) FreeStyle Cristian 2 Sensor Kit See Rx Instructions .Route Qty: 6 3RF Rx Instructions: Test blood sugar 4 times per day (DME) FreeStyle Cristian 2 Daykin Misc See Rx Instructions .Route Qty: 1 0RF Rx Instructions: test blood sugar 4 times per day gabapentin 800 mg tablet 800 mg PO TID 30 Days Qty: 90 6RF rosuvastatin 5 mg tablet 5 mg PO DAILY Qty: 90 1RF losartan 50 mg tablet 50 mg PO DAILY Qty: 90 1RF amlodipine 5 mg tablet 5 mg PO DAILY Qty: 90 1RF cholecalciferol (vitamin D3) 50 mcg (2,000 unit) capsule 50 mcg PO DAILY Qty: 90 1RF psyllium husk [Fiber Laxative (psyllium husk)] 0.52 gram capsule 1.04 g PO BID baclofen 10 mg tablet 10 mg PO TID metformin 1,000 mg tablet 1,000 mg PO BID lansoprazole 30 mg capsule,delayed release(DR/EC) 30 mg PO DAILY@0630 acetaminophen 650 mg Tablet Extended Release 650 mg PO TID PRN (Reason: Pain) ferrous sulfate 324 mg (65 mg iron) tablet,delayed release (DR/EC) 324 mg PO DAILY nicotine 14 mg/24 hr patch 24 hour 1 patch topical DAILY magnesium oxide 400 mg (241.3 mg magnesium) Tablet 400 mg PO DAILY Qty: 7 0RF simethicone [Anti-Gas Ultra Strength] 180 mg capsule 180 mg PO QID famotidine 40 mg tablet 40 mg PO BEDTIME varenicline 1 mg tablet 1 mg PO BID Januvia 100 mg tablet 100 mg PO DAILY Anoro Ellipta 62.5-25 mcg/actuation blister with device 1 ea INHALATION DAILY Arnuity Ellipta 200 mcg/actuation blister with device 1 inh inhalation DAILY levofloxacin 750 mg tablet 750 mg PO DAILY Qty: 5 0RF prednisone 20 mg Tablet 40 mg PO DAILY Qty: 8 0RF aspirin [Adult Low Dose Aspirin] 81 mg tablet,delayed release (DR/EC) 81 mg PO BEDTIME (DME) blood-glucose meter [FreeStyle Lite Meter] Kit See Rx Instructions .Route Qty: 1 0RF Rx Instructions: As directed twice a day before meals Linzess 72 mcg capsule 72 mcg PO DAILY metoclopramide HCl [Reglan] 10 mg tablet 20 mg PO TIDWMEAL Qty: 180 6RF ipratropium-albuterol 0.5 mg-3 mg(2.5 mg base)/3 mL solution for nebulization 3 ml inhalation Q6H 30 Days Qty: 180 1RF [place] [facility] [place]Provider Group[place] - 1 week Interventions: ED Discharge Assessment Last Done: 08/03/24 20:33 Discharge Date/Time: 08/03/24 20:52 Print Language: Jamaican
[2024-08-03] MEDS: Albuterol Sulfate 2.5 MG, Albuterol/Iprat 2.5/0.5MG 3 ML 3 ML INHALE (17:20)
[2024-08-03 17:32] LABS: MANUAL DIFF FLAG NO
[2024-08-03 17:36] LABS: Basophils Absolute Auto 0.1 X10*3/uL (0.0-0.2); Basophils Percent Auto 0.5 % (0-2); Eosinophils Absolute Auto 0.1 X10*3/uL (0.0-0.4); Eosinophils Percent Auto 0.6 % (0-4); Hematocrit 39.8 % (37.0-47.0); Hemoglobin 12.4 g/dl (12.0-16.0); Imm Gran Abs Auto 0.24 X10*3/uL (0.00-0.03); Imm Gran Pct Auto 1.2 % (0.0-0.4); Lymphocytes Absolute Auto 4.9 X10*3/uL (1.2-4.9); Lymphocytes Percent Auto 24.5 % (20-40); Mean Corpuscular HGB Conc 31.2 g/dl (31.0-35.0); Mean Corpuscular Hemoglobin 25.9 pg (27.0-33.0); Mean Corpuscular Volume 83.3 fL (80.0-98.0); Mean Platelet Volume 9.5 fL (9.4-12.3); Monocytes Absolute Auto 1.2 X10*3/uL (0.1-1.2); Monocytes Percent Auto 6.1 % (2-11); Neutrophils Absolute Auto 13.4 x10*3/uL (2.0-8.3); Neutrophils Percent Auto 67.1 % (45-73); Platelet Count 320 X10*3/uL (160-400); Red Blood Count 4.78 X10*6/uL (4.20-5.50); White Blood Count 19.9 X10*3/uL (4.8-10.8)
[2024-08-03 17:53] LABS: Alanine Aminotransferase 9 U/L (0-31); Alkaline Phosphatase 56 U/L (39-117); Anion Gap 16 (12-20); Aspartate Amino Transferase 12 U/L (5-31); Bilirubin Direct < 0.2 mg/dL (0.0-0.5); Bilirubin Total 0.2 mg/dL (0.0-1.0); Blood Urea Nitrogen 10 mg/dL (9-16); Calcium 9.9 mg/dL (8.4-10.2); Carbon Dioxide 29 mmol/L (22-29); Chloride 100 mmol/L (96-108); Creatinine Clr Calc Pharmacy 72.4; Estimated Glomerular Filt Rate > 60; Glucose Random 97 mg/dL (60-115); Lipase 16 U/L (8-78); Magnesium 1.2 mg/dL (1.6-2.6); Potassium 3.4 mmol/L (3.3-5.1); Sodium 142 mmol/L (135-145); Total Protein 6.4 g/dL (6.5-8.0)
[2024-08-03 17:56] LABS: Troponin-I High Sensitivity 4.8 ng/L (<3.5-17.0)
[2024-08-03] MEDS: Magnesium Sulfate/H2O 2 GM/50 ML PIGGYBACK IV (18:36)
[2024-08-03 19:28] LABS: Appearance Urine Cloudy; Color Urine Yellow; Glucose Urine UA Negative (Negative); Leukocyte Esterase Urine Negative (Negative); Nitrite Urine Negative (Negative); PH 5.5 (5.0-9.0); Urine Blood Negative (Negative); Urine Ketones Trace mg/dL (Negative); Urine Protein Negative (Neg-Trace)
[2024-08-03 20:14] LABS: Magnesium 2.5 mg/dL (1.6-2.6)
== END 2024-08-03 20:52 | disposition home or self-care (01) ==
PROVIDERS: Physician Assistant; Emergency Provider Emergency Medicine
DX: R10.9 Unspecified abdominal pain (principal); I45.19 Other right bundle-branch block; R06.02 Shortness of breath; J44.9 Chronic obstructive pulmonary disease, unspecified; Z99.81 Dependence on supplemental oxygen; E11.9 Type 2 diabetes mellitus without complications; I10 Essential (primary) hypertension; E78.5 Hyperlipidemia, unspecified; D64.9 Anemia, unspecified; Z79.82 Long term (current) use of aspirin; Z79.84 Long term (current) use of oral hypoglycemic drugs; Z79.899 Other long term (current) drug therapy; Z79.02 Long term (current) use of antithrombotics/antiplatelets; F17.210 Nicotine dependence, cigarettes, uncomplicated
CPT/HCPCS: 36415; 71045; 76705; 80048; 80076; 81003; 83690; 83735; 84484; 85025; 93005; 94640; 96365; 99284; 99285; J3475

== ENCOUNTER → 2024-08-03 16:00 | Outpatient (BNV) | payer OTHER, SELFPAY | PROVIDERS: Emergency Provider Emergency Medicine; Visit Provider Internal Medicine | DX: R94.31 Abnormal electrocardiogram [ECG] [EKG] (principal) | CPT/HCPCS: 93010 ==

== ENCOUNTER → 2024-08-03 16:49 | Outpatient (BNV) | payer OTHER, SELFPAY | PROVIDERS: Emergency Provider Emergency Medicine; Visit Provider Nuclear Medicine | DX: R06.02 Shortness of breath (principal); R10.11 Right upper quadrant pain | CPT/HCPCS: 71045; 76705 ==

== ENCOUNTER 2024-08-07 10:41 | Outpatient (AMB) | payer OTHER, SELFPAY ==
--- NOTE | 2024-08-07 11:02 | A.OFFPC_ITS ---
Vital Signs 08/07/24 11:05 Height 4 ft 9 in Weight 109 lb BMI 23.6 BP 122/60 Blood Pressure Location Lt brachial Position Sitting Pulse 102 H Pulse Source Pulse Oximeter Pulse Oximetry (%) 97 Oxygen Delivery Method Nasal Cannula Intake Visit Reasons: [facility] Intake Note: Pt is here today for her [facility] Allergies amoxicillin [AMOXICILLIN] Allergy (Intermediate, Verified 08/14/24 01:55) RASH Medication List - Last Reconciled 08/14/24 by Magalie Nicolas MD acetaminophen ER 650 mg PO TID PRN amlodipine 5 mg PO DAILY aspirin (Adult Low Dose Aspirin) 81 mg PO BEDTIME baclofen 10 mg PO TID benzonatate 100 mg PO TID PRN blood-glucose meter (FreeStyle Lite Meter kit) As directed twice a day before meals cholecalciferol (vitamin D3) 50 mcg PO DAILY famotidine 40 mg PO BEDTIME ferrous sulfate 324 mg PO DAILY flash glucose scanning reader ([employer] [place]) test blood sugar 4 times per day flash glucose sensor (FreeStyle Cristian 2 Sensor kit) Test blood sugar 4 times per day fluticasone furoate 200 mcg/actuation (Arnuity Ellipta) 1 inh inhalation DAILY FreeStyle Lite Strips (blood sugar diagnostic) check fasting blood sugar twice a day before meals NS gabapentin 800 mg PO TID 30 days guaifenesin ER (Mucinex) 600 mg PO BID ipratropium-albuterol 0.5 mg-3 mg(2.5 mg base)/3 mL 3 mL inhalation Q6H 1 month lancets (FreeStyle Lancets) As directed twice a day AC linaclotide (Linzess) 72 mcg PO DAILY losartan 50 mg PO DAILY magnesium oxide 400 mg PO DAILY metformin 1,000 mg PO BID methocarbamol 500 mg PO TID PRN metoclopramide HCl (Reglan) 20 mg (2 x 10 mg) PO TIDWMEAL nicotine 1 patch topical DAILY pantoprazole 40 mg PO DAILY prednisone See Taper mg PO DIRECTED psyllium husk (Fiber Laxative (psyllium husk)) 1.04 grams PO BID rosuvastatin 5 mg PO DAILY simethicone (Anti-Gas Ultra Strength) 180 mg PO QID sitagliptin phosphate (Januvia) 100 mg PO DAILY umeclidinium-vilanterol 62.5-25 mcg/actuation (Anoro Ellipta) 1 ea inhalation DAILY varenicline 1 mg PO BID Tobacco use date assessed: 06/21/24 Dental Screening Dental Screen Date: 06/21/24 HPI HDF [facility] [place] HPI Details - The patient is a 64-year-old female wi th severe COPD currently oxygen requirement, has hypertension, diabetes mellitus and renal cell carcinoma as well as GERD, presenting today for follow-up after recent ER visit complaining of abdominal pain. - Gallbladder abnormality noted on ultra sound; uncertain if stones or a polyp; pain not consistent with gallbladder issues. - Renal mass identified; has been diagno sed with renal cell carcinoma scheduled for cryoablation; unrelated to current pain complaint. - Esophageal dysfunction detected by bar ium swallow; slow gastric motility noted; no ulceration or hiatal hernia detected; symptoms include difficulty with fluid progression and mild achalasia. - History of gastritis evidenced by thic kening of stomach lining; potential acid reflux due to lifestyle factors; lansoprazole and formodidine tried with limited efficacy. - Smoking identified as an exacerbating factor for gastritis; smoking cessation has been advised repeatedly, but patient has tried and failed nicotine patch, Chantix , Wellbutrin PFSH Medical History (Updated 08/14/24 @ 02:13 by Magalie Nicolas MD) COPD mixed type Gastritis Gastroparesis COPD (chronic obstructive pulmonary disease) Shortness of breath Hypochromic anemia Type 2 diabetes mellitus without complication, with no history of insulin use Heavy cigarette smoker Diabetic gastroparesis COPD (chronic obstructive pulmonary disease) Mixed dyslipidemia Essential hypertension GERD (gastroesophageal reflux disease) Diastolic CHF with preserved left ventricular function, NYHA class 2 Chronic hypercapnic respiratory failure Type 2 diabetes mellitus with other diabetic kidney complication Type 2 diabetes mellitus without complication, with no history of insulin use Smoker unmotivated to quit Postlaminectomy syndrome of cervical region Seasonal allergic rhinitis Degenerative disc disease, cervical Postmenopause Dyslipidemia Surgical History H/O cervical discectomy History of esophagogastroduodenoscopy (EGD) Hx of colonoscopy Family History Mother Diabetes Sister Diabetes Mental health disorder Brother Diabetes Father HTN (hypertension) Social History Household Members: Significant Other Housing: Apartment Housing Other:: mobile home Do you presently have visiting nurse or other home services: Yes (weekly [employer] supervisor services) Alcohol intake: never Comment: Commode/ Hi Flow O2 Patient Tobacco Use Status: Current everyday Tobacco user Tobacco use type: Cigarette Cigarette Packs Per Day: 0.5 Years Smoked: 50 e-Cigarette/Vaping Use: Never Used Second Hand Smoke Exposure: Yes Advance Directives Date on File: 08/02/23 service: No Current occupational status: unemployed and disabled Gender identity: Female Cognitive needs: No Hearing needs: No Vision needs: Yes Questionnaire Thrive Questionnaire Date Thrive assessed: 06/21/24 I am a: Patient What is your living situation today?: I have a steady place to live Within the past 12 months, did the food you bought not last and you didn't have the money to get more?: Never true Within the past 12 months, did you worry whether your food would run out before you got money to buy more?: Never true Do you have trouble paying for medicines?: No Do you have trouble getting transportation to medical appointments?: No Do you have trouble paying your heating and electricity bill?: No Do you have trouble taking care of your child, family member or friend?: No Do you have trouble with day-to-day activities such as bathing, preparing meals, shopping, managing finances, etc.?: Yes Are you currently unemployed and looking for a job?: No Are you interested in more education?: No Please select the resources that you would like help with: None Currently or been in a relationship where the following occur: No concerns reported THRIVE Score: 0 FREDI-7 AMB Questionnaire FREDI-7 Date FREDI - 7 assessed: 09/02/22 Source: Developed by Drs. Wiley Caballero, Sharmila Paez, Iraj paredes nd colleagues, with an educational radha from [employer]. Review of Systems Const Denies fever(s), Reports malaise and Denies poor appetite Eyes Reports requires corrective lenses ENT Reports as per HPI, Denies mouth pain, Denies odynophagia, Denies throat swelling and Denies tongue swelling Card Denies chest pain, Denies lightheadedness and Reports dyspnea on exertion Resp Reports dyspnea on exertion GI Details: Denies melena, Reports bloating, Denies hematochezia, Reports constipation, Denies GI cramping, Denies excessive flatus, Reports nausea, Denies odynophagia and Denies vomiting Reports no additional complaints Neuro Denies Abnormal speech present Aller/Immun Denies throat swelling and Denies tongue swelling Physical exam (Primary Care) Vital Signs: Last Vital Signs Pulse 102 H 08/07/24 11:05 BP 122/60 08/07/24 11:05 Pulse Ox 97 08/07/24 11:05 Oxygen Delivery Method Nasal Cannula 08/07/24 11:05 BMI result Body Mass Index 23.6 Tobacco/Smoking Status: Tobacco use Status Tobacco use date assessed 06/21/24 08/07/24 11:06 Patient Tobacco Use Status Current everyday Tobacco 08/07/24 11:06 Tobacco use type Cigarette 08/07/24 11:06 e-Cigarette/Vaping Use Never Used 08/07/24 11:06 Are you ready to quit: No Tobacco cessation counseling provided: Yes Thrive Assessment: Date of Thrive Assessment Date Thrive assessed 06/21/24 08/07/24 11:06 Currently or been in a relationship where the following occur: No concerns reported Const Other: Frail looking female, supplemental oxygen, accompanied by boyfriend Orientation/consciousness: patient oriented x3 [facility] General nose exam: Normal external nose present and No nasal discharge present Mouth: oropharynx normal and moist mucous membranes Eyes General: appearance normal, both eyes and all related structures Neck Neck: Yes full ROM, Yes no lymphadenopathy and Yes supple Resp Other: on portable O2 at 2 L/NC Effort & Inspection: normal respiratory effort and able to speak in complete sentences Auscultation: diminished lung sounds Cardio Rate: regular rate Rhythm: regular rhythm Heart sounds: S1 normal heart sound present and S2 normal heart sound present GI Other: Normal bowel sounds, soft, nontender, no mass palpated Neuro General: patient oriented x3 Cognition (Neuro): normal cognition Speech: No Abnormal speech present Gait exam (Neuro): Normal gait present Extrem General: Yes full ROM, Yes no joint enlargement, Yes no pedal edema, Yes no calf tenderness and Yes normal gait Results Reviewed Results Reviewed: Laboratory Tests 12/20/23 07/28/24 08/03/24 09:23 06:26 19:48 Estimat Average Glucose 137 Hemoglobin A1c % 6.4 H Ionized Calcium 5.5 Magnesium 2.5 Name: Maria Elena Kingston Age/Sex: 64/F : 1960 Unit#: [id number] Attend Dr: Leigh Haywood DO Re08/03/24 Status: DEP ER Location: [facility] Disch: SPEC : [id number] SEUN: 08/03/24 STATUS: COMP REQ : [id number] RECD: 08/03/[address]: Leslie Beebe COMP: 08/03/24-1752 ENTERED: 08/03/[address]: Physician,Unknown ORDERED: Liver Panel, BMP, MG, Lip Test Result Flag Reference Sodium 142 135-145 mmol/L Potassium 3.4 # 3.3-5.1 mmol/L CL 100 96-108 mmol/L CO2 29 22-29 mmol/L Gap 16 12-20 BUN 10 9-16 mg/dL Creat 0.55 0.5-1.4 mg/dL Estimated CrCl 72.4 Provided height and weight: 144.78 cm, 51.71 kg. eGFR (calculated from the MDRD study equation) and eCrCl (calculated from the Cockcroft-Gault equation) are based on different parameters and may not yield comparable results. If eCrCl result is absurd, please check patient's height/weight. eGFR > 60 Chronic Kidney Disease: Estimated GFR < 60 mL/min/1.73m2 Severe Kidney Disease: Estimated GFR < 15 mL/min/1.73m2 Glucose, Random 97 60-115 mg/dL CA 9.9 8.4-10.2 mg/dL Magnesium 1.2 *L 1.6-2.6 mg/dL Critical value for test(s): MG Results called to and read back by: ZEV Person calling: PETRExit GamesCandace Date: 08/03/24 Time: 1752 Total Bili 0.2 0.0-1.0 mg/dL Direct Bili < 0.2 0.0-0.5 mg/dL AST (GOT) 12 5-31 U/L ALT (GPT) 9 0-31 U/L Protein, Total 6.4 L 6.5-8.0 g/dL Alb 4.0 3.5-5.0 g/dL Alk Phos 56 39-117 U/L Lipase 16 8-78 U/L Coding Level of Care Code Est Pt Level 4 (10604) Complex EM visit Add On G2211 Diagnoses Chronic gastritis without bleeding, unspecified gastritis type K29.50 Gastritis type: unspecified gastritis Chronicity: chronic Gastritis bleeding: without bleeding Gastroparesis K31.84 COPD mixed type J44.9 Type 2 diabetes mellitus without complication, with no history of insulin use E11.9 Assessment & Plan Assessment & Plan (1) Gastritis: Code(s): K29.70 - Gastritis, unspecified, without bleeding Category: Medical Qualifiers: Gastritis type: unspecified gastritis Chronicity: chronic Gastritis bleeding: without bleeding Qualified Code(s): K29.50 - Unspecified chronic gastritis without bleeding Plan: Continue on pantoprazole 40 mg daily, famotidine at bedtime, takes simethicone 180 mg 4 times a day . Patient strongly advised to quit smoking (2) Gastroparesis: Code(s): K31.84 - Gastroparesis Category: Medical Plan: She has diabetes mellitus which likely has also led to gastroparesis strict control of blood sugar has been advised. Currently on metoclopramide 20 mg 3 times a day with meals (3) COPD mixed type: Code(s): J44.9 - Chronic obstructive pulmonary disease, unspecified Category: Medical Plan: Continue with Anoro Ellipta, and Arnuity Ellipta, followed by [facility] at [facility] (4) Type 2 diabetes mellitus without complication, with no history of insulin use: Code(s): E11.9 - Type 2 diabetes mellitus without complications Category: Medical Plan: Continue with metformin, Januvia diabetes mellitus controlled with latest hemoglobin A1c at 6.4%. Reminded to schedule an appointment for her diabetes retinopathy screening. Recommended to get vaccinated against the new COVID booster and RSV vaccine. She is up-to-date with her flu vaccine, shingles and pneumococcal vaccinations Medications: New pantoprazole take in am , 1 hour before food or medicine intake 40 mg PO DAILY 30 tabs 5RF
[2024-08-07 11:05] VITALS: BP 122/60; PULSE 102; O2SAT 97; BMI 23.6
== END 2024-08-07 11:43 | disposition home or self-care (01) ==
PROVIDERS: PCP Internal Medicine; Visit Provider Internal Medicine
DX: K29.50 Unspecified chronic gastritis without bleeding (principal); K31.84 Gastroparesis; J44.9 Chronic obstructive pulmonary disease, unspecified; E11.9 Type 2 diabetes mellitus without complications

== ENCOUNTER → 2024-08-07 10:41 | Outpatient (BNVA) | payer OTHER, SELFPAY | PROVIDERS: PCP Internal Medicine; Visit Provider Internal Medicine | DX: K29.50 Unspecified chronic gastritis without bleeding (principal); K31.84 Gastroparesis; J44.9 Chronic obstructive pulmonary disease, unspecified; E11.9 Type 2 diabetes mellitus without complications | CPT/HCPCS: 99212 ==

== ENCOUNTER 2024-08-08 15:28 | Emergency (ER) | payer OTHER, SELFPAY ==
--- NOTE | ~2024-08-08 | CT_ITS ---
EXAMINATION: CT ABDOMEN AND PELVIS WITHOUT CONTRAST CLINICAL INFORMATION: Possible right renal mass. Upper abdominal pain. COMPARISON: Renal ultrasound 08/03/2024. Unenhanced and IV contrast and CT of abdomen and pelvis 04/18/2024. CT abdomen and pelvis 04/16/2024. MRI abdomen 04/05/2019. TECHNIQUE: Multidetector volumetric imaging was performed from the superior aspect of the liver through the pubic symphysis. Sagittal and coronal reformatted images were obtained on the technologist's workstation. This CT examination was performed using dose optimization techniques as appropriate, variously including the following: *Automated exposure control *Adjustment of mA and/or kV according to patient size (this includes techniques or standardized protocols for targeted exams where dose is matched to indication/reason for exam; i.e. extremities or head) *Use of iterative reconstruction technique DLP: 367 mGy-cm FINDINGS: LUNG BASES: Chronic appearing scattered minimal bibasilar subpleural reticular opacities which may represent parenchymal scarring are noted. Partial visualization is made of at least mild-moderate scattered coronary artery calcific atherosclerosis. The heart is not fully included within the image [id number]. LIVER, GALLBLADDER, AND BILIARY TREE: The liver is normal in size, shape, and attenuation. No focal hepatic lesion or biliary ductal dilatation is present. The gallbladder is unremarkable with no evidence of radiopaque gallstones, gallbladder wall thickening, or obvious pericholecystic inflammatory changes. PANCREAS: Unremarkable. SPLEEN: Unremarkable. ADRENAL GLANDS: Unremarkable. KIDNEYS AND URETERS: A 2.5 cm x 2.0 cm rounded partially exophytic lesion is associated with the lateral aspect of the inferior pole the right kidney demonstrating intermediate attenuation (32 Hounsfield units). No urolithiasis. No hydronephrosis or perinephric inflammatory changes. Normal appearance of the left kidney. BLADDER: Moderate physiologic distention. GASTROINTESTINAL TRACT: Normal appearance of the appendix. No free intraperitoneal fluid or gas collections. No intestinal dilatation or mural thickening. Normal appearance of the sigmoid mesentery and small bowel mesentery. Normal appearance of the stomach and duodenum. ABDOMINAL WALL: No significant hernia is appreciated. LYMPH NODES: Normal. VASCULAR: Marked diffuse calcific atherosclerosis. system: A 5 mm dystrophic calcification is noted along the anterior margin of the uterine fundus and may represent a degenerated uterine fibroid. No adnexal lesions are noted. Bilateral fallopian tube ligation clips. OSSEOUS STRUCTURES: No suspicious skeletal lesions noted. CT/CT abdomen pelvis wo IV con IMPRESSION: *Single approximate 2.5 cm lesion of the inferior pole the right kidney. Of note, this lesion was evaluated to better advantage on the comparison unenhanced and IV contrast enhanced CT of the abdomen and pelvis 04/18/2024 which concluded that this mass was suspicious for renal cell carcinoma. On the current exam, this mass demonstrates intermediate attenuation which solely on the basis of this exam could be consistent with either a proteinaceous cyst or solid tumor. However, the prior unenhanced and IV contrast CT offers more specificity and concluded that this lesion is consistent with renal cell carcinoma. This lesion is unchanged appreciably in size compared with 04/18/2024. No abdominal lymphadenopathy. No evidence of metastatic disease on this unenhanced CT of the abdomen and pelvis. *Partial visualization of mild to moderate scattered coronary artery calcific atherosclerosis. Electronically signed by: Mehran Jackson MD 08/08/2024 06:59 PM ILYA SHORT
[2024-08-08 15:55] VITALS: BP 141/55; PULSE 90; RESP 20; TEMP 36.8; O2SAT 95; BMI 23.4
--- NOTE | 2024-08-08 15:57 | ED_ITS ---
HPI - Abdominal Pain General Chief Complaint: Abdominal Pain Stated Complaint: Abdominal pain Time Seen by Provider: 08/08/24 17:38 Source: patient Mode of arrival: ambulatory Limitations: no limitations History of Present Illness ED Provider: DR. Zepeda HPI narrative: A 64-year-old female came in for evaluation of upper abdominal pain that has been going for months now patient had multiple ED visits for similar pain pain is mostly upper abdomen epigastric pain that has been constant for many months, worse with foods, pain is associated with nausea but no vomiting patient had a previous ED evaluation for similar pain. Patient also has been evaluated by GI for that chronic pain as an outpatient. Related Data Home Medications ?Medication ?Instructions ?Recorded ?Confirmed aspirin 81 mg tablet,delayed 81 mg PO BEDTIME 01/10/21 08/03/24 release (Adult Low Dose Aspirin) psyllium husk 0.52 gram capsule 1.04 g PO BID Constipation 02/28/24 08/03/24 (Fiber Laxative (psyllium husk)) baclofen 10 mg tablet 10 mg PO TID 05/06/24 08/03/24 metformin 1,000 mg tablet 1,000 mg PO BID 05/06/24 08/03/24 acetaminophen 650 mg 650 mg PO TID PRN Pain 05/30/24 08/03/24 tablet,extended release ferrous sulfate 324 mg (65 mg 324 mg PO DAILY 05/30/24 08/03/24 iron) tablet,delayed release linaclotide 72 mcg capsule 72 mcg PO DAILY 07/12/24 08/03/24 (Linzess) famotidine 40 mg tablet 40 mg PO BEDTIME 07/26/24 08/03/24 fluticasone furoate 200 1 inh inhalation DAILY 07/26/24 08/03/24 mcg/actuation blister powder for inhalation (Arnuity Ellipta) simethicone 180 mg capsule 180 mg PO QID 07/26/24 08/03/24 (Anti-Gas Ultra Strength) sitagliptin phosphate 100 mg 100 mg PO DAILY 07/26/24 08/03/24 tablet (Januvia) umeclidinium 62.5 mcg-vilanterol 1 ea inhalation DAILY 07/26/24 08/03/24 25 mcg/actuation powdr for inhalation (Anoro Ellipta) varenicline 1 mg tablet 1 mg PO BID 07/26/24 08/03/24 Previous Rx's ?Medication ?Instructions ?Recorded blood-glucose meter (FreeStyle #1 ea 10/03/21 Lite Meter kit) lancets 28 gauge (FreeStyle #100 ea 01/06/22 Lancets) FreeStyle Lite Strips (blood sugar #100 ea 03/10/22 diagnostic) flash glucose sensor (FreeStyle #6 ea 02/19/23 Cristian 2 Sensor kit) flash glucose scanning reader #1 ea 03/26/23 (FreeStyle Cristian 2 [place]) gabapentin 800 mg tablet 800 mg PO TID 30 days #90 tabs 01/26/24 magnesium oxide 400 mg (241.3 mg 400 mg PO DAILY #7 tabs 06/01/24 magnesium) tablet ipratropium 0.5 mg-albuterol 3 mg 3 ml inhalation Q6H wheezing 1 06/21/24 (2.5 mg base)/3 mL nebulization month #180 mL soln losartan 50 mg tablet 50 mg PO DAILY #90 tabs 07/11/24 rosuvastatin 5 mg tablet 5 mg PO DAILY #90 tabs 07/11/24 metoclopramide HCl 10 mg tablet 20 mg (2 x 10 mg) PO TIDWMEAL #180 07/12/24 (Reglan) tabs amlodipine 5 mg tablet 5 mg PO DAILY #90 tabs 07/21/24 cholecalciferol (vitamin D3) 50 50 mcg PO DAILY #90 caps 07/21/24 mcg (2,000 unit) capsule levofloxacin 750 mg tablet 750 mg PO DAILY #5 tabs 07/28/24 prednisone 20 mg tablet 40 mg (2 x 20 mg) PO DAILY #8 tabs 07/28/24 pantoprazole 40 mg tablet,delayed 40 mg PO DAILY #30 tabs 08/07/24 release Allergies Allergy/AdvReac Type Severity Reaction Status Date / Time amoxicillin [AMOXICILLIN] Allergy Intermediate RASH Verified 08/08/24 15:55 Review of Systems Review of Systems All other systems are reviewed and are negative Constitutional: Reports as per HPI and Reports no additional constitutional complaints Eyes: Reports as per HPI and Reports no additional eye complaints Reports system reviewed and no additional complaints, except as documented Cardiovascular: Reports as per HPI and Reports no additional cardiovascular complaints Respiratory: Reports as per HPI and Reports no additional respiratory complaints Gastrointestinal: Reports as per HPI and Reports no additional gastrointestinal complaints Genitourinary: Reports no additional female genitourinary complaints Musculoskeletal: Reports no additional musculoskeletal complaints Skin/Breast: Reports system reviewed and no additional complaints, except as docu Psychiatric: Reports no additional psychiatric complaints Endocrine: Reports no additional endocrine complaints Hematologic/Lymphatic: Reports no additional hematologic/lymphatic complaints Allergic/Immunologic: Reports no additional allergic/immunologic complaints Reports system reviewed and no additional complaints, except as documented and Reports Abnormal speech present [facility] Past Medical History Medical History CAP (community acquired pneumonia) Acute on chronic hypoxic respiratory failure COPD mixed type Gastritis Gastroparesis COPD (chronic obstructive pulmonary disease) Shortness of breath Hypochromic anemia Type 2 diabetes mellitus without complication, with no history of insulin use Heavy cigarette smoker Diabetic gastroparesis COPD (chronic obstructive pulmonary disease) Mixed dyslipidemia Essential hypertension GERD (gastroesophageal reflux disease) Diastolic CHF with preserved left ventricular function, NYHA class 2 Chronic hypercapnic respiratory failure Type 2 diabetes mellitus with other diabetic kidney complication Type 2 diabetes mellitus without complication, with no history of insulin use Smoker unmotivated to quit Postlaminectomy syndrome of cervical region Seasonal allergic rhinitis Degenerative disc disease, cervical Postmenopause Dyslipidemia Surgical History H/O cervical discectomy History of esophagogastroduodenoscopy (EGD) Hx of colonoscopy Family History Family History Mother Diabetes Sister Diabetes Mental health disorder Brother Diabetes Father HTN (hypertension) Social History Social History Household Members: Significant Other Housing: Other Housing Other:: mobile home 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) Alcohol intake: never Comment: Commode/ Hi Flow O2 Patient Tobacco Use Status: Current everyday Tobacco user Tobacco use type: Cigarette Cigarette Packs Per Day: 0.5 Years Smoked: 50 e-Cigarette/Vaping Use: Never Used Second Hand Smoke Exposure: Yes Advance Directives: Yes Advance Directives on File: Yes Advance Directives Date on File: 08/02/23 service: No Current occupational status: unemployed and disabled Gender identity: Female Cognitive needs: No Hearing needs: No Vision needs: Yes Physical Exam ED Vital Signs: Vital Signs - 24 hr 08/08/24 15:55 08/08/24 19:11 Temperature 98.2 F 98.3 F Pulse Rate 90 86 Respiratory Rate 20 16 Blood Pressure 141/55 H 126/59 L Pulse Oximetry 95 92 Oxygen Delivery Method Nasal Cannula Nasal Cannula Oxygen Flow Rate 2 BMI result Body Mass Index 23.4 Vital signs have been reviewed and appear to be correct. Blood pressure elevated. Heart rate normal. Respiratory rate normal. Temperature normal. Oxygen saturation normal. Appearance: Alert. Oriented X3. No acute distress. Head: Normal external exam. Normocephalic. Atraumatic. No Liang signs noted. No raccoon eyes noted Eyes: PERRLA. EOMI. Conjunctiva and sclera normal. Eyelids normal. ENT: TM's Normal. Pharynx normal. Uvula midline. Moist mucous membranes. No trismus noted. No drooling noted. No muffled voice noted. Neck: Normal inspection. Neck supple. FROM. No adenopathy. Thyroid Normal. No meningeal signs. No neck mass noted. CVS: Normal heart rate and rhythm. Heart sound normal. No murmurs noted. Pulses normal throughout. Respiratory: No respiratory distress. Painless inspiration. Breath sounds normal. No wheezes/rales/rhonchi noted. Chest nontender. No accessory muscle usage noted or decreased air movement noted. Abdomen: Soft, epigastric tenderness, no guarding, no rebound tenderness. Bowel sounds normal in all 4 quadrants. No distention noted. No organomegaly noted. No visible injury noted. Back: No CVA tenderness. Full range of motion noted. Skin: Skin warm and dry. Normal skin color. Normal skin turgor. No rashes/lesions/lacerations noted. Extremities: No lower extremity edema. Extremities exhibit normal range of motion. Extremities nontender. Neuro: Oriented X 3. Cranial nerve exam: II-XII are grossly intact No motor deficit. No sensory deficit. Reflexes normal. Course Course Course Narrative: This is an RME: Additional HPI, ROS, PE not included below will be deferred to primary provider. RME assessment and note performed by: Gena Mcgarry PA-C 64-year-old female with a past medical history COPD on 2L NC baseline, anemia, diabetes, diabetic gastroparesis, HTN, HLD, presenting to the ED complaining of epigastric abdominal pain, nausea, and diarrhea x months. Plan: Labs, EKG, UA further ER eval needed Reevaluation(s) Reevaluation #1: CT revealing right kidney mass with a suspicion of renal cell carcinoma, patient with chronic leukocytosis low source of infection today. 1. Follow-up with urology for further workup of the right renal mass (patient is in the process of that diagnosis scheduled to have immobilization after approved by her insurance). 2. Follow-up with GI for chronic epigastric pain. 3. Follow-up with surgery for possible biliary colic. Time: 19:55 Medical Decision Making Differential Diagnosis Differential Diagnoses: The differential diagnosis associated with the presentation includes (Gastritis, colitis, diverticulitis, right kidney mass, BENNETT, electrolyte derangement, severe anemia.) Admission/Observation Consideration of admission/observation: Escalation of care including admission/observation considered Lab Data MDM Lab Attestation statement: I reviewed the patient's lab results. 08/08/24 16:34 08/08/24 16:34 Labs: Lab Results 08/08/24 Range/Units 16:34 WBC 17.9 H (4.8-10.8) X10*3/uL RBC 4.83 (4.20-5.50) X10*6/uL Hgb 12.4 (12.0-16.0) g/dl Hct 40.7 (37.0-47.0) % MCV 84.3 (80.0-98.0) fL MCH 25.7 L (27.0-33.0) pg MCHC 30.5 L (31.0-35.0) g/dl RDW 18.1 H (11.0-16.0) % Plt Count 307 (160-400) X10*3/uL MPV 9.5 (9.4-12.3) fL Immature Gran % (Auto) 0.6 H (0.0-0.4) % Neut % (Auto) 62.9 (45-73) % Lymph % (Auto) 29.2 (20-40) % Graham % (Auto) 6.5 (2-11) % Eos % (Auto) 0.4 (0-4) % Baso % (Auto) 0.4 (0-2) % Lymph # (Auto) 5.2 H (1.2-4.9) X10*3/uL Graham # (Auto) 1.2 (0.1-1.2) X10*3/uL Eos # (Auto) 0.1 (0.0-0.4) X10*3/uL Baso # (Auto) 0.1 (0.0-0.2) X10*3/uL Abs Immat Gran (auto) 0.11 H (0.00-0.03) X10*3/uL Absolute Neuts (auto) 11.2 H (2.0-8.3) x10*3/uL Absolute Nucleated RBC 0.000 (0.0-0.012) X10*3/uL Nucleated RBC % (auto) 0.0 (0.0-0.2) /100WBC Smear Tech's Comments VERIFIED Sodium 142 (135-145) mmol/L Potassium 3.2 L (3.3-5.1) mmol/L Chloride 102 (96-108) mmol/L Carbon Dioxide 32 H (22-29) mmol/L Anion Gap 11 L (12-20) BUN 7 L (9-16) mg/dL Creatinine 0.49 L (0.5-1.4) mg/dL Estim Creat Clear Calc 79.3 Estimated GFR > 60 Random Glucose 104 (60-115) mg/dL Calcium 11.5 H D (8.4-10.2) mg/dL Magnesium 1.7 (1.6-2.6) mg/dL Total Bilirubin 0.2 (0.0-1.0) mg/dL Direct Bilirubin < 0.2 (0.0-0.5) mg/dL AST 11 (5-31) U/L ALT 9 (0-31) U/L Alkaline Phosphatase 57 (39-117) U/L Troponin I High Sens 3.9 (<3.5-17.0) ng/L Total Protein 6.6 (6.5-8.0) g/dL Albumin 4.2 (3.5-5.0) g/dL Lipase 23 (8-78) U/L Influenza Type A (PCR) NEGATIVE (Negative) Influenza Type B (PCR) NEGATIVE (Negative) RSV RNA Qual (PCR) NEGATIVE (Negative) SARS-CoV-2 RNA (RT-PCR) NEGATIVE (Negative) Independent Interpretation I performed an independent interpretation of an: CT Scan (Abdomen and pelvis:Single approximate 2.5 cm lesion of the inferior pole the right kidney. Of note, this lesion was evaluated to better advantage on the comparison unenhanced and IV contrast enhanced CT of the abdomen and pelvis 04/18/2024 which concluded that this mass was suspicious for renal ce) Radiology Impression Discussion of test interpretation with radiology: I have reviewed the radiologist's reading. Medications Administered Discontinued Medications Generic Name Dose Route Start Last Admin Trade Name Freq PRN Reason Stop Dose Admin Famotidine 20 mg 08/08/24 17:48 08/08/24 17:58 Famotidine 20 Mg Tablet PO 08/08/24 17:49 20 mg ONCE ONE Administration Ondansetron HCl 4 mg 08/08/24 17:48 08/08/24 17:58 Ondansetron Odt 4 Mg Tab.Rapdis TRANSLINGU 08/08/24 17:49 4 mg ONCE ONE Administration Discharge Plan Discharge Clinical Impression: Mass of right kidney, Chronic abdominal pain Patient Disposition: Home, Self-Care Instructions: Abdominal Pain (ED) Prescriptions: No Action (DME) lancets [FreeStyle Lancets] 28 gauge misc See Rx Instructions .Route Qty: 100 5RF Rx Instructions: As directed twice a day AC (DME) FreeStyle Lite Strips Strip See Rx Instructions .Route Qty: 100 0RF Rx Instructions: check fasting blood sugar twice a day before meals (DME) FreeStyle Cristian 2 Sensor Kit See Rx Instructions .Route Qty: 6 3RF Rx Instructions: Test blood sugar 4 times per day (DME) FreeStyle Cristian 2 [place] Misc See Rx Instructions .Route Qty: 1 0RF Rx Instructions: test blood sugar 4 times per day gabapentin 800 mg tablet 800 mg PO TID 30 Days Qty: 90 6RF rosuvastatin 5 mg tablet 5 mg PO DAILY Qty: 90 1RF losartan 50 mg tablet 50 mg PO DAILY Qty: 90 1RF amlodipine 5 mg tablet 5 mg PO DAILY Qty: 90 1RF cholecalciferol (vitamin D3) 50 mcg (2,000 unit) capsule 50 mcg PO DAILY Qty: 90 1RF psyllium husk [Fiber Laxative (psyllium husk)] 0.52 gram capsule 1.04 g PO BID baclofen 10 mg tablet 10 mg PO TID metformin 1,000 mg tablet 1,000 mg PO BID acetaminophen 650 mg Tablet Extended Release 650 mg PO TID PRN (Reason: Pain) ferrous sulfate 324 mg (65 mg iron) tablet,delayed release (DR/EC) 324 mg PO DAILY magnesium oxide 400 mg (241.3 mg magnesium) Tablet 400 mg PO DAILY Qty: 7 0RF simethicone [Anti-Gas Ultra Strength] 180 mg capsule 180 mg PO QID famotidine 40 mg tablet 40 mg PO BEDTIME varenicline 1 mg tablet 1 mg PO BID Januvia 100 mg tablet 100 mg PO DAILY Anoro Ellipta 62.5-25 mcg/actuation blister with device 1 ea INHALATION DAILY Arnuity Ellipta 200 mcg/actuation blister with device 1 inh inhalation DAILY levofloxacin 750 mg tablet 750 mg PO DAILY Qty: 5 0RF prednisone 20 mg Tablet 40 mg PO DAILY Qty: 8 0RF aspirin [Adult Low Dose Aspirin] 81 mg tablet,delayed release (DR/EC) 81 mg PO BEDTIME (DME) blood-glucose meter [FreeStyle Lite Meter] Kit See Rx Instructions .Route Qty: 1 0RF Rx Instructions: As directed twice a day before meals Linzess 72 mcg capsule 72 mcg PO DAILY metoclopramide HCl [Reglan] 10 mg tablet 20 mg PO TIDWMEAL Qty: 180 6RF pantoprazole 40 mg tablet,delayed release (DR/EC) 40 mg PO DAILY Qty: 30 5RF Rx Instructions: take in am , 1 hour before food or medicine intake ipratropium-albuterol 0.5 mg-3 mg(2.5 mg base)/3 mL solution for nebulization 3 ml inhalation Q6H 30 Days Qty: 180 1RF Referrals: David Quiñones MD [Physician] - Magalie Nicolas MD [Primary Care Provider] - Yves Tyson MD [Physician] - Mauri Pierson MD [Physician] - Print Language: Yakut
--- NOTE | 2024-08-08 16:02 | ECG_ITS ---
Test Reason : epigastric pain Blood Pressure : / mmHG Vent. Rate : 089 BPM Atrial Rate : 089 BPM P-R Int : 122 ms QRS Dur : 082 ms QT Int : 350 ms P-R-T Axes : 087 090 048 degrees QTc Int : 425 ms Normal sinus rhythm Rightward axis Pulmonary disease pattern Nonspecific ST and T wave abnormality Abnormal ECG When compared with ECG of 03-AUG-2024 16:08, No significant change was found Referred By: Gena Mcgarry Electronically Signed By:Allen Gant
[2024-08-08 16:45] LABS: Basophils Absolute Auto 0.1 X10*3/uL (0.0-0.2); Basophils Percent Auto 0.4 % (0-2); Eosinophils Absolute Auto 0.1 X10*3/uL (0.0-0.4); Eosinophils Percent Auto 0.4 % (0-4); Hematocrit 40.7 % (37.0-47.0); Hemoglobin 12.4 g/dl (12.0-16.0); Imm Gran Abs Auto 0.11 X10*3/uL (0.00-0.03); Imm Gran Pct Auto 0.6 % (0.0-0.4); Lymphocytes Absolute Auto 5.2 X10*3/uL (1.2-4.9); Lymphocytes Percent Auto 29.2 % (20-40); MANUAL DIFF FLAG SCAN; Mean Corpuscular HGB Conc 30.5 g/dl (31.0-35.0); Mean Corpuscular Hemoglobin 25.7 pg (27.0-33.0); Mean Corpuscular Volume 84.3 fL (80.0-98.0); Mean Platelet Volume 9.5 fL (9.4-12.3); Monocytes Absolute Auto 1.2 X10*3/uL (0.1-1.2); Monocytes Percent Auto 6.5 % (2-11); Neutrophils Absolute Auto 11.2 x10*3/uL (2.0-8.3); Neutrophils Percent Auto 62.9 % (45-73); Platelet Count 307 X10*3/uL (160-400); Red Blood Count 4.83 X10*6/uL (4.20-5.50); Red Cell Distribution Width 18.1 % (11.0-16.0); SCAN SMEAR FLAG 1; White Blood Count 17.9 X10*3/uL (4.8-10.8)
[2024-08-08 16:58] LABS: Alanine Aminotransferase 9 U/L (0-31); Albumin Level 4.2 g/dL (3.5-5.0); Alkaline Phosphatase 57 U/L (39-117); Anion Gap 11 (12-20); Aspartate Amino Transferase 11 U/L (5-31); Bilirubin Direct < 0.2 mg/dL (0.0-0.5); Bilirubin Total 0.2 mg/dL (0.0-1.0); Blood Urea Nitrogen 7 mg/dL (9-16); Calcium 11.5 mg/dL (8.4-10.2); Carbon Dioxide 32 mmol/L (22-29); Chloride 102 mmol/L (96-108); Creatinine Clr Calc Pharmacy 79.3; Estimated Glomerular Filt Rate > 60; Glucose Random 104 mg/dL (60-115); Lipase 23 U/L (8-78); Magnesium 1.7 mg/dL (1.6-2.6); Potassium 3.2 mmol/L (3.3-5.1); Sodium 142 mmol/L (135-145); Total Protein 6.6 g/dL (6.5-8.0)
[2024-08-08 17:01] LABS: Troponin-I High Sensitivity 3.9 ng/L (<3.5-17.0)
[2024-08-08 17:43] LABS: Influenza A PCR NEGATIVE (Negative); Influenza B PCR NEGATIVE (Negative); Resp Syncy Virus RNA Qual PCR NEGATIVE (Negative); SARS COV2 PCR INHOUSE NEGATIVE (Negative)
[2024-08-08 17:53] LABS: SLIDE REVIEW VERIFIED
[2024-08-08] MEDS: Famotidine 20 MG TABLET PO (17:58)
[2024-08-08] MEDS: Ondansetron ODT 4 MG TAB.RAPDIS TRANSLINGU (17:58)
[2024-08-08 19:11] VITALS: BP 126/59; PULSE 86; RESP 16; TEMP 36.8; O2SAT 92
[2024-08-08 20:29] VITALS: BP 126/59; PULSE 86; RESP 16; TEMP 36.8; O2SAT 92
== END 2024-08-08 20:30 | disposition home or self-care (01) ==
PROVIDERS: Physician Assistant Medical; Emergency Provider Emergency Medicine; PCP Internal Medicine
DX: N28.89 Other specified disorders of kidney and ureter (principal); R10.2 Pelvic and perineal pain; R10.13 Epigastric pain; R11.0 Nausea; R94.31 Abnormal electrocardiogram [ECG] [EKG]; F17.210 Nicotine dependence, cigarettes, uncomplicated; Z79.899 Other long term (current) drug therapy; Z03.818 Encounter for observation for suspected exposure to other biological agents ruled out
CPT/HCPCS: 0241U; 74176; 80048; 80076; 83690; 83735; 84484; 85025; 93005; 99284; 99285

== ENCOUNTER → 2024-08-08 16:02 | Outpatient (BNV) | payer OTHER, SELFPAY | PROVIDERS: Emergency Provider Emergency Medicine; PCP Internal Medicine; Visit Provider Internal Medicine Cardiovascular Disease | DX: R94.31 Abnormal electrocardiogram [ECG] [EKG] (principal) | CPT/HCPCS: 93010 ==

== ENCOUNTER 2024-08-10 19:07 | Inpatient (IN) | payer OTHER, SELFPAY ==
[2024-08-10] VITALS (7 sets, daily range): BP systolic 110–120; BP diastolic 36–92; PULSE 72–116; RESP 18–22; TEMP 36.9; O2SAT 87–96; BMI 23.9
--- NOTE | 2024-08-10 | ECG_ITS ---
Test Reason : CHEST PAIN Blood Pressure : / mmHG Vent. Rate : 109 BPM Atrial Rate : 109 BPM P-R Int : 114 ms QRS Dur : 078 ms QT Int : 358 ms P-R-T Axes : 063 084 048 degrees QTc Int : 482 ms Sinus tachycardia Nonspecific ST abnormality Abnormal ECG When compared with ECG of 08-AUG-2024 16:29, ST more depressed Lateral leads Nonspecific T wave abnormality no longer evident in Lateral leads Referred By: Isabell Manzo Electronically Signed By:YOHAN PATEL MD
--- NOTE | ~2024-08-10 | XR_ITS ---
EXAMINATION: XR CHEST CLINICAL INFORMATION: Shortness of breath. COMPARISON: Prior chest radiographs, most recently 08/03/2024. TECHNIQUE: Frontal view of the chest was obtained. FINDINGS: No significant abnormality is noted involving the heart, lungs, mediastinum, bony thorax or soft tissues. There are atherosclerotic calcifications of the aortic knob. Monitor leads overlap the patient. There is calcific tendinitis of the right rotator cuff. Lower cervical orthopedic hardware is partially included in the [id number]. XR/XR chest 1V IMPRESSION: No active cardiopulmonary disease. Electronically signed by: Nestor Kim MD 08/10/2024 10:05 PM [facility]
--- NOTE | 2024-08-10 19:12 | ECG_ITS ---
Test Reason : CHEST PAIN Blood Pressure : / mmHG Vent. Rate : 103 BPM Atrial Rate : 103 BPM P-R Int : 116 ms QRS Dur : 082 ms QT Int : 350 ms P-R-T Axes : 000 148 176 degrees QTc Int : 458 ms Sinus tachycardia Left posterior fascicular block Cannot rule out Anterior infarct , age undetermined Abnormal ECG When compared with ECG of 10-AUG-2024 19:26, ST no longer depressed in Lateral leads Nonspecific T wave abnormality now evident in Lateral leads Referred By: Isabell Manzo Electronically Signed By:YOHAN PATEL MD
--- NOTE | 2024-08-10 19:21 | ED_ITS ---
HPI - Chest Pain General Chief Complaint: Chest Pain Stated Complaint: chest pain Time Seen by Provider: 08/10/24 20:26 Source: patient Limitations: no limitations and other (Poor historian) History of Present Illness ED Provider: Tammy Hair PA-C HPI narrative: 64 y/o F with hx of GERD, COPD on 2 L nasal cannula at baseline, heavy cigarette, smoker, chronic idiopathic constipation, chronic abdominal pain, presents with chest pain for ?a month?. Patient is a poor historian, she can not describe the nature of her discomfort. She states it has been constant. She denies recent cough or cold symptoms. She denies fever. Related Data Home Medications ?Medication ?Instructions ?Recorded ?Confirmed aspirin 81 mg tablet,delayed 81 mg PO BEDTIME 01/10/21 08/03/24 release (Adult Low Dose Aspirin) psyllium husk 0.52 gram capsule 1.04 g PO BID Constipation 02/28/24 08/03/24 (Fiber Laxative (psyllium husk)) baclofen 10 mg tablet 10 mg PO TID 05/06/24 08/03/24 metformin 1,000 mg tablet 1,000 mg PO BID 05/06/24 08/03/24 acetaminophen 650 mg 650 mg PO TID PRN Pain 05/30/24 08/03/24 tablet,extended release ferrous sulfate 324 mg (65 mg 324 mg PO DAILY 05/30/24 08/03/24 iron) tablet,delayed release linaclotide 72 mcg capsule 72 mcg PO DAILY 07/12/24 08/03/24 (Linzess) famotidine 40 mg tablet 40 mg PO BEDTIME 07/26/24 08/03/24 fluticasone furoate 200 1 inh inhalation DAILY 07/26/24 08/03/24 mcg/actuation blister powder for inhalation (Arnuity Ellipta) simethicone 180 mg capsule 180 mg PO QID 07/26/24 08/03/24 (Anti-Gas Ultra Strength) sitagliptin phosphate 100 mg 100 mg PO DAILY 07/26/24 08/03/24 tablet (Januvia) umeclidinium 62.5 mcg-vilanterol 1 ea inhalation DAILY 07/26/24 08/03/24 25 mcg/actuation powdr for inhalation (Anoro Ellipta) varenicline 1 mg tablet 1 mg PO BID 07/26/24 08/03/24 Previous Rx's ?Medication ?Instructions ?Recorded blood-glucose meter (FreeStyle #1 ea 10/03/21 Lite Meter kit) lancets 28 gauge (FreeStyle #100 ea 01/06/22 Lancets) FreeStyle Lite Strips (blood sugar #100 ea 03/10/22 diagnostic) flash glucose sensor (FreeStyle #6 ea 02/19/23 Cristian 2 Sensor kit) flash glucose scanning reader #1 ea 03/26/23 (FreeStyle Cristian 2 [place]) gabapentin 800 mg tablet 800 mg PO TID 30 days #90 tabs 01/26/24 magnesium oxide 400 mg (241.3 mg 400 mg PO DAILY #7 tabs 06/01/24 magnesium) tablet ipratropium 0.5 mg-albuterol 3 mg 3 ml inhalation Q6H wheezing 1 06/21/24 (2.5 mg base)/3 mL nebulization month #180 mL soln losartan 50 mg tablet 50 mg PO DAILY #90 tabs 07/11/24 rosuvastatin 5 mg tablet 5 mg PO DAILY #90 tabs 07/11/24 metoclopramide HCl 10 mg tablet 20 mg (2 x 10 mg) PO TIDWMEAL #180 07/12/24 (Reglan) tabs amlodipine 5 mg tablet 5 mg PO DAILY #90 tabs 07/21/24 cholecalciferol (vitamin D3) 50 50 mcg PO DAILY #90 caps 07/21/24 mcg (2,000 unit) capsule levofloxacin 750 mg tablet 750 mg PO DAILY #5 tabs 07/28/24 prednisone 20 mg tablet 40 mg (2 x 20 mg) PO DAILY #8 tabs 07/28/24 pantoprazole 40 mg tablet,delayed 40 mg PO DAILY #30 tabs 08/07/24 release Allergies Allergy/AdvReac Type Severity Reaction Status Date / Time amoxicillin [AMOXICILLIN] Allergy Intermediate RASH Verified 08/10/24 19:16 Review of Systems 2 Review of Systems: Yes all other systems are reviewed and are negative Constitutional: Constitutional: Denies fatigue and Denies fever(s) Cardiovascular: Cardiovascular: Reports chest pain and Denies dyspnea Respiratory: Respiratory: Denies cough and Denies dyspnea Gastrointestinal: Gastrointestinal: Denies abdominal pain, Denies nausea and Denies vomiting Endocrine: Endocrine: Denies fatigue PMFSH Past Medical History Attestation statement: The following information was validated with the patient. Medical History CAP (community acquired pneumonia) Acute on chronic hypoxic respiratory failure COPD mixed type Gastritis Gastroparesis COPD (chronic obstructive pulmonary disease) Shortness of breath Hypochromic anemia Type 2 diabetes mellitus without complication, with no history of insulin use Heavy cigarette smoker Diabetic gastroparesis COPD (chronic obstructive pulmonary disease) Mixed dyslipidemia Essential hypertension GERD (gastroesophageal reflux disease) Diastolic CHF with preserved left ventricular function, NYHA class 2 Chronic hypercapnic respiratory failure Type 2 diabetes mellitus with other diabetic kidney complication Type 2 diabetes mellitus without complication, with no history of insulin use Smoker unmotivated to quit Postlaminectomy syndrome of cervical region Seasonal allergic rhinitis Degenerative disc disease, cervical Postmenopause Dyslipidemia Surgical History H/O cervical discectomy History of esophagogastroduodenoscopy (EGD) Hx of colonoscopy Family History Family History Mother Diabetes Sister Diabetes Mental health disorder Brother Diabetes Father HTN (hypertension) Social History Social History Household Members: Significant Other Housing: Other Housing Other:: mobile home Do you presently have 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) Alcohol intake: never Comment: Commode/ Hi Flow O2 Patient Tobacco Use Status: Current everyday Tobacco user Tobacco use type: Cigarette Cigarette Packs Per Day: 0.5 Years Smoked: 50 Smoked in Last 30 Days: Yes e-Cigarette/Vaping Use: Never Used Second Hand Smoke Exposure: Yes Use of substances other than those prescribed or required for medical reasons: No Advance Directives: Yes Advance Directives on File: Yes Advance Directives Date on File: 08/02/23 Do you have a plan to hurt others: No Plan service: No Current occupational status: unemployed and disabled Gender identity: Female Cognitive needs: No Hearing needs: No Vision needs: Yes Physical Exam 2 Vital Signs: Vital Signs: Last Vital Signs Temp 98.5 F 08/10/24 22:36 Pulse 72 08/10/24 23:20 Resp 18 08/10/24 23:20 BP 112/36 L 08/10/24 23:13 Pulse Ox 91 L 08/10/24 23:13 O2 Del Method Nasal Cannula 08/10/24 23:13 O2 Flow Rate 2 08/10/24 23:13 BMI result Body Mass Index 23.9 Const: Other: Awake, appears older than stated age, Orientation/consciousness: patient oriented x3 Resp: Other: Rhonchorous on exam posterior mayo Cardio: Other: Normal peripheral perfusion Skin: Other: Warm dry no rash Neuro: General: patient oriented x3, no focal motor deficits and CN's II-XI intact bilaterally Psych: Other: Cooperative, flat affect Course Course Course Narrative: RME, this is a rapid medical exam performed by Antonio Carrillo please refer to primary provider for complete H&P- 64 female presents chest pain. She is a COPD patient on chronic 2 L but did bring oxygen with her. Plan for cardiac workup. She was placed on 2 L via nasal cannula. Reevaluation(s) Reevaluation #1: Sepsis identified, we will be ordering blood cultures, lactic acid, antibiotic, and IV fluid, at this point she is not requiring the weight based 30 mL/kilogram of fluid resuscitation. Time: 20:30 Medications Administered Generic Name Dose Route Start Last Admin Trade Name Freq PRN Reason Stop Dose Admin Enoxaparin Sodium 40 mg 08/10/24 23:00 08/10/24 23:50 Enoxaparin Sodium 40 Mg/0.4 Ml Syringe SUBCUT 40 mg Q24H MOUSTAPHA Administration Guaifenesin 600 mg 08/10/24 22:55 08/10/24 23:50 Guaifenesin La 600 Mg Tab.Er.12h PO 600 mg BID MOUSTAPHA Administration Methocarbamol 500 mg 08/10/24 23:00 08/10/24 23:50 Methocarbamol 500 Mg Tablet PO 500 mg TID MOUSTAPHA Administration Omeprazole 20 mg 08/10/24 22:55 08/10/24 23:50 Omeprazole 20 Mg Capsule.Dr PO 20 mg BID@0630,1630 MOUSTAPHA Administration Sodium Chloride 3 ml 08/11/24 00:00 08/11/24 00:13 0.9 % Sodium Chloride Flush 3 Ml Syringe IVFLUSH Not Given QSHIFT MOUSTAPHA Discontinued Medications Generic Name Dose Route Start Last Admin Trade Name Freq PRN Reason Stop Dose Admin Albuterol/Ipratropium 3 ml 08/11/24 00:00 08/10/24 23:20 Albuterol/Iprat 2.5/0.5mg 3 Ml Ampul.Neb INHALE 3 ml RQ4H MOUSTAPHA Administration Ceftriaxone Sodium 2 gm 08/10/24 20:27 08/10/24 20:43 Ceftriaxone Sodium 2 Gm Vial IVPUSH 08/10/24 20:28 2 gm ONCE ONE Administration Albuterol Sulfate 5 mg/ 0 mg 08/10/24 21:15 08/10/24 21:18 Albuterol/Ipratropium 3 ml INHALE 08/10/24 21:16 7.5 each ONCE ONE Administration Potassium Chloride 10 meq in 100 mls @ 100 mls/hr 08/10/24 20:30 08/11/24 00:50 Potassium Chloride/H20 IV 08/11/24 00:29 Infused Q1H MOUSTAPHA Infusion Sodium Chloride 1,000 mls @ 999 mls/hr 08/10/24 20:30 08/10/24 23:00 Ns IV 08/10/24 21:30 Infused .Q1H1M MOUSTAPHA Infusion Doxycycline Hyclate 100 mg/ 250 mls @ 166.67 mls/hr 08/10/24 21:13 08/10/24 23:10 Sodium Chloride IV 08/10/24 22:42 Infused ONCE ONE Infusion Magnesium Sulfate 2 gm in 50 mls @ 25 mls/hr 08/10/24 23:01 08/11/24 01:49 Magnesium Sulfate/H2o IV 08/11/24 01:00 Infused ONCE ONE Infusion Methylprednisolone Sodium Succinate 125 mg 08/10/24 21:11 08/10/24 21:40 Methylprednisolone Sod Succ 125 Mg/2 Ml Vial IVPUSH 08/10/24 21:12 125 mg ONCE ONE Administration Potassium Chloride 40 meq 08/10/24 20:27 08/10/24 20:44 Potassium Chloride Packet 20 Meq Packet PO 08/10/24 20:28 40 meq ONCE ONE Administration Potassium Chloride 40 meq 08/10/24 22:51 08/10/24 23:50 Potassium Chloride Er 20 Meq Tab.Er.Prt PO 08/10/24 22:52 40 meq ONCE ONE Administration Medical Decision Making Medical Decision Making MDM Narrative: 64 y/o F with hx of GERD, COPD on 2 L nasal cannula at baseline, heavy cigarette, smoker, chronic idiopathic constipation, chronic abdominal pain, presents with chest pain for ?a month?. Patient is a poor historian, she can not describe the nature of her discomfort. She states it has been constant. She denies recent cough or cold symptoms. She denies fever. Problem: COPD, ongoing tobacco abuse, chronic abdominal pain History: Per patient which is limited I have considered the following differential diagnoses: ACS, PE, COPD exacerbation, bronchitis/pneumonia, sepsis Plan: Concerned for sepsis at this time, the patient is tachycardic with tachypnea, in the setting of active COPD exacerbation, with a significant leukocytosis that is new. Screening labs including viral panel, blood cultures, lactic acid, chest x-ray ordered. We will be starting empiric antibiotics, we will be giving IV fluid resuscitation, to note she does not require the weight based 30 mL/kilogram of resuscitation given her blood pressure is stable. We will be ordering an updraft and Solu-Medrol. The patient is seen frequently in the emergency department for pain related complaints, in particular chest pain and abdominal pain. I am considering PE, however she does not have a new oxygen requirement, she does not have objective signs symptoms for DVT on exam, and her discomfort is ongoing for a month. I am deferring a dimer as I feel there is a more plausible diagnosis for her current symptoms. Do not think this is ACS, the patient was seen in the emergency department 2 days ago for abdominal pain, at that time she was not complaining of chest pain. However an EKG and cardiac enzymes we will be obtained. I have independently reviewed the following tests: Labs: Significant leukocytosis with left shift, not anemic, potassium low at 2.7, we will give 40 mEq both oral and IV, adding serum magnesium, we will empirically give 2 g of magnesium, this will also help her COPD exacerbation. Lactic acid 5.6, we will repeat after IV fluid resuscitation of the 2 hour rodney. First troponin 6, we will repeat at 21:31. Viral panel negative EKG: Sinus rhythm, rate 89, no ischemic changes no ectopy Chest x-ray: XR/XR chest 1V IMPRESSION: No active cardiopulmonary disease. Electronically signed by: Nestor Kim MD 08/10/2024 10:05 PM [facility] [place], [place] Lab Data 08/10/24 19:33 08/10/24 19:33 Labs: Lab Results 08/10/24 08/10/24 Range/Units 19:33 20:31 WBC 26.7 H (4.8-10.8) X10*3/uL RBC 4.98 (4.20-5.50) X10*6/uL Hgb 12.7 (12.0-16.0) g/dl Hct 41.7 (37.0-47.0) % MCV 83.7 (80.0-98.0) fL MCH 25.5 L (27.0-33.0) pg MCHC 30.5 L (31.0-35.0) g/dl RDW 18.4 H (11.0-16.0) % Plt Count 324 (160-400) X10*3/uL MPV 9.7 (9.4-12.3) fL Immature Gran % (Auto) 0.6 H (0.0-0.4) % Neut % (Auto) 81.5 H (45-73) % Lymph % (Auto) 11.4 L (20-40) % [place] % (Auto) 5.8 (2-11) % Eos % (Auto) 0.4 (0-4) % Baso % (Auto) 0.3 (0-2) % Lymph # (Auto) 3.0 (1.2-4.9) X10*3/uL [place] # (Auto) 1.6 H (0.1-1.2) X10*3/uL Eos # (Auto) 0.1 (0.0-0.4) X10*3/uL Baso # (Auto) 0.1 (0.0-0.2) X10*3/uL Abs Immat Gran (auto) 0.16 H (0.00-0.03) X10*3/uL Absolute Neuts (auto) 21.7 H (2.0-8.3) x10*3/uL Absolute Nucleated RBC 0.000 (0.0-0.012) X10*3/uL Nucleated RBC % (auto) 0.0 (0.0-0.2) /100WBC Smear Tech's Comments VERIFIED PT 11.2 (10.9-12.4) SEC INR 1.0 (0.9-1.1) Sodium 141 (135-145) mmol/L Potassium 2.7 L* (3.3-5.1) mmol/L Chloride 98 (96-108) mmol/L Carbon Dioxide 31 H (22-29) mmol/L Anion Gap 15 (12-20) BUN 5 L (9-16) mg/dL Creatinine 0.54 (0.5-1.4) mg/dL Estim Creat Clear Calc 72.8 Estimated GFR > 60 Random Glucose 186 H (60-115) mg/dL Lactic Acid 5.6 H* (0.5-2.0) mmol/L Calcium 9.9 D (8.4-10.2) mg/dL Magnesium 1.3 L* (1.6-2.6) mg/dL Total Bilirubin 0.3 (0.0-1.0) mg/dL AST 11 (5-31) U/L ALT 8 (0-31) U/L Alkaline Phosphatase 76 (39-117) U/L Troponin I High Sens 6.0 D (<3.5-17.0) ng/L Total Protein 6.7 (6.5-8.0) g/dL Albumin 4.1 (3.5-5.0) g/dL Lipase 15 (8-78) U/L Influenza Type A (PCR) NEGATIVE (Negative) Influenza Type B (PCR) NEGATIVE (Negative) RSV RNA Qual (PCR) NEGATIVE (Negative) SARS-CoV-2 RNA (RT-PCR) NEGATIVE (Negative) Critical Care Time Critical Care Time Critical Care Time: Yes Total Critical Care Time: 30 Attestation: Dasha Edwards PA-C have performed 30 minutes of critical care time, not including procedures, but involving the complex medical decision-making for this patient. Discharge Plan Discharge Clinical Impression: COPD exacerbation, Acute hypokalemia, Sepsis Patient Disposition: Admitted As Inpatient Interventions: Admission Worksheet (ED) Last Done: 08/11/24 02:11
[2024-08-10 19:42] LABS: Basophils Absolute Auto 0.1 X10*3/uL (0.0-0.2); Basophils Percent Auto 0.3 % (0-2); Eosinophils Absolute Auto 0.1 X10*3/uL (0.0-0.4); Eosinophils Percent Auto 0.4 % (0-4); Hematocrit 41.7 % (37.0-47.0); Hemoglobin 12.7 g/dl (12.0-16.0); Imm Gran Abs Auto 0.16 X10*3/uL (0.00-0.03); Imm Gran Pct Auto 0.6 % (0.0-0.4); Lymphocytes Percent Auto 11.4 % (20-40); MANUAL DIFF FLAG SCAN; Mean Corpuscular HGB Conc 30.5 g/dl (31.0-35.0); Mean Corpuscular Hemoglobin 25.5 pg (27.0-33.0); Mean Corpuscular Volume 83.7 fL (80.0-98.0); Mean Platelet Volume 9.7 fL (9.4-12.3); Monocytes Absolute Auto 1.6 X10*3/uL (0.1-1.2); Monocytes Percent Auto 5.8 % (2-11); Neutrophils Absolute Auto 21.7 x10*3/uL (2.0-8.3); Neutrophils Percent Auto 81.5 % (45-73); Platelet Count 324 X10*3/uL (160-400); Red Blood Count 4.98 X10*6/uL (4.20-5.50); Red Cell Distribution Width 18.4 % (11.0-16.0); SCAN SMEAR FLAG 1; White Blood Count 26.7 X10*3/uL (4.8-10.8)
[2024-08-10 19:55] LABS: Alanine Aminotransferase 8 U/L (0-31); Albumin Level 4.1 g/dL (3.5-5.0); Alkaline Phosphatase 76 U/L (39-117); Anion Gap 15 (12-20); Aspartate Amino Transferase 11 U/L (5-31); Bilirubin Total 0.3 mg/dL (0.0-1.0); Blood Urea Nitrogen 5 mg/dL (9-16); Calcium 9.9 mg/dL (8.4-10.2); Carbon Dioxide 31 mmol/L (22-29); Chloride 98 mmol/L (96-108); Creatinine Clr Calc Pharmacy 72.8; Estimated Glomerular Filt Rate > 60; Glucose Random 186 mg/dL (60-115); Lipase 15 U/L (8-78); Potassium 2.7 mmol/L (3.3-5.1); Sodium 141 mmol/L (135-145); Total Protein 6.7 g/dL (6.5-8.0)
[2024-08-10 20:16] LABS: Influenza A PCR NEGATIVE (Negative); Influenza B PCR NEGATIVE (Negative); Resp Syncy Virus RNA Qual PCR NEGATIVE (Negative); SARS COV2 PCR INHOUSE NEGATIVE (Negative)
[2024-08-10 20:18] LABS: SLIDE REVIEW VERIFIED
[2024-08-10] MEDS: cefTRIAXone sodium 2 GM VIAL IVPUSH (20:43)
[2024-08-10] MEDS: Potassium Chloride Packet 20 MEQ PACKET 40 MEQ PO (20:44)
[2024-08-10] MEDS: 0.9 % Sodium Chloride 1,000 ML 999 ML IV (20:45)
[2024-08-10 20:47] LABS: Prothrombin Time 11.2 SEC (10.9-12.4)
[2024-08-10] MEDS: Potassium Chloride/H20 10 MEQ/100 ML PIGGYBACK 100 MEQ IV ×4 (20:47→23:49)
[2024-08-10 21:10] LABS: Lactic Acid 5.6 mmol/L (0.5-2.0)
[2024-08-10] MEDS: Albuterol Sulfate 5 MG, Albuterol/Iprat 2.5/0.5MG 3 ML 3 ML INHALE (21:18)
[2024-08-10] MEDS: methylPREDNISolone Sod Succ 125 MG/2 ML VIAL IVPUSH (21:40)
[2024-08-10] MEDS: Doxycycline Hyclate 100 MG in 0.9 % Sodium Chloride 250 ML 166.67 MG IV (21:40)
[2024-08-10 22:36] LABS: Reflex Lactate? Lactic Acid Added
--- NOTE | 2024-08-10 23:00 | P.HPHOSP_ITS ---
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 No palpitations, nausea, vomiting, diarrhea or urinary symptoms. she noticed wheezing and coughing and had to use her prn nebulizer as inhalers were not helping much. Her O2 requirements did not change from 2L. She reports coughing and pain in her chest and upper stomach which has been persistent for months. In ED CXR not showing any acute findings. Has Low potassium level and elevated Lactic acid and WBCs. admitted for COPD exacerbation. Review of Systems 2 Review of Systems: No fever, chills but has generalized weakness reporting chest pain, no palpitation having shortness of breath and coughing No abdominal pain, nausea or vomiting No urinary symptoms PMFSH Medical History CAP (community acquired pneumonia) Acute on chronic hypoxic respiratory failure COPD mixed type Gastritis Gastroparesis COPD (chronic obstructive pulmonary disease) Shortness of breath Hypochromic anemia Type 2 diabetes mellitus without complication, with no history of insulin use Heavy cigarette smoker Diabetic gastroparesis COPD (chronic obstructive pulmonary disease) Mixed dyslipidemia Essential hypertension GERD (gastroesophageal reflux disease) Diastolic CHF with preserved left ventricular function, NYHA class 2 Chronic hypercapnic respiratory failure Type 2 diabetes mellitus with other diabetic kidney complication Type 2 diabetes mellitus without complication, with no history of insulin use Smoker unmotivated to quit Postlaminectomy syndrome of cervical region Seasonal allergic rhinitis Degenerative disc disease, cervical Postmenopause Dyslipidemia Family History Mother Diabetes Sister Diabetes Mental health disorder Brother Diabetes Father HTN (hypertension) Surgical History H/O cervical discectomy History of esophagogastroduodenoscopy (EGD) Hx of colonoscopy Social History Household Members: Significant Other Housing: Other Housing Other:: mobile home Do you presently have visiting nurse or other home services: Yes (rn visiting) Alcohol intake: never Comment: Commode/ Hi Flow O2 Patient Tobacco Use Status: Current everyday Tobacco user Tobacco use type: Cigarette Cigarette Packs Per Day: 0.5 Years Smoked: 50 e-Cigarette/Vaping Use: Never Used Second Hand Smoke Exposure: Yes Advance Directives: Yes Advance Directives on File: Yes Advance Directives Date on File: 08/02/23 Do you have a plan to hurt others: No Plan service: No Current occupational status: unemployed and disabled Gender identity: Female Cognitive needs: No Hearing needs: No Vision needs: Yes Meds Allergies Allergy/AdvReac Type Severity Reaction Status Date / Time amoxicillin [AMOXICILLIN] Allergy Intermediate RASH Verified 08/10/24 19:16 Active Medications: Current Medications Potassium Chloride (Potassium Chloride/H20) 10 meq in 100 mls @ 100 mls/hr IV Q1H MOUSTAPHA Stop: 08/11/24 00:29 Last Admin: 08/10/24 22:51 Dose: 100 mls/hr Home Medications ?Medication ?Instructions ?Recorded ?Confirmed ?Last Taken ?Type aspirin 81 mg tablet,delayed 81 mg PO BEDTIME 01/10/21 08/03/24 07/25/24 History release (Adult Low Dose Aspirin) psyllium husk 0.52 gram capsule 1.04 g PO BID Constipation 02/28/24 08/03/24 07/25/24 History (Fiber Laxative (psyllium husk)) baclofen 10 mg tablet 10 mg PO TID 05/06/24 08/03/24 07/25/24 History metformin 1,000 mg tablet 1,000 mg PO BID 05/06/24 08/03/24 07/25/24 History acetaminophen 650 mg 650 mg PO TID PRN Pain 05/30/24 08/03/24 Unknown History tablet,extended release ferrous sulfate 324 mg (65 mg 324 mg PO DAILY 05/30/24 08/03/24 07/25/24 History iron) tablet,delayed release linaclotide 72 mcg capsule 72 mcg PO DAILY 07/12/24 08/03/24 07/25/24 History (Linzess) famotidine 40 mg tablet 40 mg PO BEDTIME 07/26/24 08/03/24 07/25/24 History fluticasone furoate 200 1 inh inhalation DAILY 07/26/24 08/03/24 07/25/24 History mcg/actuation blister powder for inhalation (Arnuity Ellipta) simethicone 180 mg capsule 180 mg PO QID 07/26/24 08/03/24 07/25/24 History (Anti-Gas Ultra Strength) sitagliptin phosphate 100 mg 100 mg PO DAILY 07/26/24 08/03/24 07/25/24 History tablet (Januvia) umeclidinium 62.5 mcg-vilanterol 1 ea inhalation DAILY 07/26/24 08/03/24 07/25/24 History 25 mcg/actuation powdr for inhalation (Anoro Ellipta) varenicline 1 mg tablet 1 mg PO BID 07/26/24 08/03/24 07/25/24 History Physical Exam 2 Vital Signs and Narrative: Vital Signs: Last Vital Signs Temp 98.5 F 08/10/24 22:36 Pulse 102 H 08/10/24 22:36 Resp 22 H 08/10/24 22:36 BP 110/92 H 08/10/24 22:36 Pulse Ox 96 08/10/24 22:36 O2 Del Method Nasal Cannula 08/10/24 22:36 O2 Flow Rate 2 08/10/24 22:36 BMI result Body Mass Index 23.9 Const: Other: Constitutional : Awake, interactive Neck : Normal inspection, Supple Cardiovascular : RRR, no JVP, no lower extremity edema Respiratory : decreased bilateral air entry, no crackles, bilateral expiratory wheezing ,on O2 supplement Gastrointestinal: soft, lax, Normal bowel sounds, Non tender Skin : Warm, Dry Neurological : Alert & oriented x3, No focal deficit Results Labs 08/10/24 19:33 08/10/24 19:33 Labs: Laboratory Results - last 24 hr 08/10/24 08/10/24 19:33 20:31 MCV 83.7 MCH 25.5 L MCHC 30.5 L RDW 18.4 H Plt Count 324 MPV 9.7 Immature Gran % (Auto) 0.6 H Neut % (Auto) 81.5 H Lymph % (Auto) 11.4 L [place] % (Auto) 5.8 Eos % (Auto) 0.4 Baso % (Auto) 0.3 Lymph # (Auto) 3.0 [place] # (Auto) 1.6 H Eos # (Auto) 0.1 Baso # (Auto) 0.1 Abs Immat Gran (auto) 0.16 H Absolute Neuts (auto) 21.7 H Absolute Nucleated RBC 0.000 Nucleated RBC % (auto) 0.0 Smear Tech's Comments VERIFIED PT 11.2 INR 1.0 Anion Gap 15 Estim Creat Clear Calc 72.8 Estimated GFR > 60 Random Glucose 186 H Lactic Acid 5.6 H* Calcium 9.9 D Total Bilirubin 0.3 AST 11 ALT 8 Alkaline Phosphatase 76 Troponin I High Sens 6.0 D Total Protein 6.7 Albumin 4.1 Lipase 15 Influenza Type A (PCR) NEGATIVE Influenza Type B (PCR) NEGATIVE RSV RNA Qual (PCR) NEGATIVE SARS-CoV-2 RNA (RT-PCR) NEGATIVE Imaging Radiologist's Impressions: Impressions Chest X-Ray 08/10/24 21:14 IMPRESSION: No active cardiopulmonary disease. 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 COPD exacerbation IV steroids bronchodilator nebulizers ATC and PRN Wean O2 down as tolerated Acute hypokalemia replacement given PO and IV , to repeat BMP Acute lactic acidosis Not due to severe sepsis Likely from Metformin and nebulizers Leukocytosis No clear source of infection, not due to sepsis likely from steroid usage To monitor Chest pain likely related to muscular pain and Gastroparesis\gastritis Trop negative equipment monitor phototypesetting on Tele muscle relaxant and PPI for now Type II DM w Gastroparesis continue PO meds SSI Continue Reglan Mixed hyperlipidemia On statin Hypertension Continue home antihypertensives Mood disorder Continue home mood stabilizers DVT prophylaxis: Lovenox Full code Quality Stroke Does the patient have a stroke diagnosis?: No VTE Prior VTE?: No VTE Risk Level:: Medical - moderate - high VTE Device Contraindication: Treatment Not Indicated VTE Drug Contraindication: N/A - Med Ordered
[2024-08-10] MEDS: Albuterol/Iprat 2.5/0.5MG 3 ML AMPUL.NEB INHALE (23:20)
[2024-08-10 23:28] LABS: Cancel Lactic Acid Canceled
[2024-08-10 23:44] LABS: Magnesium 1.3 mg/dL (1.6-2.6)
[2024-08-10 23:45] LABS: ~Lactic Acid-LAB USE ONLY 3.1 mmol/L (0.5-2.0)
[2024-08-10] MEDS: Magnesium Sulfate/H2O 2 GM/50 ML PIGGYBACK IV (23:49)
[2024-08-10] MEDS: methocarbamoL 500 MG TABLET PO (23:50)
[2024-08-10] MEDS: Enoxaparin Sodium 40 MG/0.4 ML SYRINGE SUBCUT (23:50)
[2024-08-10] MEDS: Omeprazole 20 MG CAPSULE.DR PO (23:50)
[2024-08-10] MEDS: guaiFENesin LA 600 MG TAB.ER.12H PO (23:50)
[2024-08-10] MEDS: Potassium Chloride ER 20 MEQ TAB.ER.PRT 40 MEQ PO (23:50)
[2024-08-11] VITALS (10 sets, daily range): BP systolic 116–136; BP diastolic 56–66; PULSE 80–102; RESP 16–20; TEMP 36–36.8; O2SAT 92–99; BMI 23.9
[2024-08-11 01:20] LABS: Reflex Lactate? 2 Y
[2024-08-11 02:15] LABS: Troponin-I High Sensitivity 4.5 ng/L (<3.5-17.0)
[2024-08-11 02:20] LABS: ~Lactic Acid-LAB USE ONLY 2.6 mmol/L (0.5-2.0)
[2024-08-11] MEDS: Acetaminophen 325 MG TABLET 650 MG PO (04:09)
[2024-08-11] MEDS: Benzonatate 100 MG CAPSULE PO (04:09)
[2024-08-11 07:40] LABS: Glucose, Whole Blood 232 mg/dL (60-115)
[2024-08-11] MEDS: Insulin Lispro 100 UNIT/ML 3 ML VIAL SUBCUT ×4 (08:15→20:37)
[2024-08-11] MEDS: methylPREDNISolone Sod Succ 40 MG/ML VIAL IVPUSH (08:16)
[2024-08-11] MEDS: methocarbamoL 500 MG TABLET PO ×3 (08:16→20:38)
[2024-08-11] MEDS: 0.9 % Sodium Chloride Flush 3 ML SYRINGE IVFLUSH ×3 (08:16→23:55)
[2024-08-11] MEDS: guaiFENesin LA 600 MG TAB.ER.12H PO ×2 (08:16→20:38)
--- NOTE | 2024-08-11 08:20 | MHC.CM.PN ---
CM met with Patient at bedside and addressed OLIVA with her; original was given to Patient and a copy has been placed on the chart. 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 Home/? new VNA is the tentative plan and CM has initiated and will follow for dc planning. PCP is Dr. Magalie Nicolas and Patient may need assist with transportation to home.
[2024-08-11 09:00] LABS: Hematocrit 35.6 % (37.0-47.0); Mean Corpuscular HGB Conc 30.9 g/dl (31.0-35.0); Mean Corpuscular Hemoglobin 26.3 pg (27.0-33.0); Mean Platelet Volume 9.9 fL (9.4-12.3); Platelet Count 277 X10*3/uL (160-400); Red Blood Count 4.19 X10*6/uL (4.20-5.50); Red Cell Distribution Width 18.5 % (11.0-16.0); White Blood Count 21.1 X10*3/uL (4.8-10.8)
[2024-08-11 09:12] LABS: Blood Urea Nitrogen 5 mg/dL (9-16); Creatinine Clr Calc Pharmacy 80.2; Estimated Glomerular Filt Rate > 60; Glucose Random 247 mg/dL (60-115); Magnesium 1.8 mg/dL (1.6-2.6)
[2024-08-11 09:26] LABS: Anion Gap 14 (12-20); Calcium 9.2 mg/dL (8.4-10.2); Carbon Dioxide 27 mmol/L (22-29); Chloride 104 mmol/L (96-108); Potassium 4.8 mmol/L (3.3-5.1); Sodium 140 mmol/L (135-145)
--- NOTE | 2024-08-11 10:10 | PHA.MEDREC ---
Pharmacy Consult ? Medication Reconciliation Pharmacy has completed the medication reconciliation. Patient was recently discharged on 07/28/24 and discharge packet and pharmacy claims were used for med rec. Also spoke to patient and she was able to only confirm that she is no longer taking levofloxacin and prednisone and she is still using the nicotine patch. She said last dose of medications was yesterday.
--- NOTE | 2024-08-11 10:57 | HO.PM.IMPN ---
Subjective Subjective Date of Service: 08/11/24 Interval History: seen and examined this AM feels unwell vague historian, unable to state exactly what she means reports cough and shortness of breath, reports abd pain Review of Systems Negative except HPI/interval history. Physical Exam Vital Signs: Vital Signs: Last Vital Signs Temp 97.9 F 08/11/24 07:48 Pulse 99 08/11/24 07:48 Resp 16 08/11/24 07:48 BP 131/66 08/11/24 07:48 Pulse Ox 96 08/11/24 07:48 O2 Del Method Nasal Cannula 08/11/24 07:48 O2 Flow Rate 2 08/11/24 07:48 BMI result Body Mass Index 23.9 Const: Other: General - ill appearing Cardiovascular - regular rate and rhythm, S1-S2 Lungs - diffuse wheezing Abdomen - soft, nontender, no rebound or guarding Extremities - no edema bilaterally Neuro - awake and alert, no focal deficits Objective Data Active Medications Acetaminophen (Acetaminophen 325 Mg Tablet) 650 mg PO Q6H PRN PRN Reason: Pain, Mild 1-3,fever,headache Last Admin: 08/11/24 04:09 Dose: 650 mg Documented By: YEN Albuterol Sulfate (Albuterol Sulfate (0.083%) 2.5 Mg/3 Ml Vial.Neb) 2.5 mg INHALE RQ4H PRN PRN Reason: Shortness of Breath/Wheezing Albuterol/Ipratropium (Albuterol/Iprat 2.5/0.5mg 3 Ml Ampul.Neb) 3 ml INHALE RQ4H WHILE AWAKE [facility] Last Admin: 08/11/24 07:28 Dose: Not Given Documented By: DWIGHT Non-Admin Reason: Patient Asleep Aspirin (Aspirin Enteric Coated 81 Mg Tablet.) 81 mg PO BEDTIME [facility] Baclofen (Baclofen 10 Mg Tablet) 10 mg PO TID [facility] Benzonatate (Benzonatate 100 Mg Capsule) 100 mg PO TID PRN PRN Reason: Cough Last Admin: 08/11/24 04:09 Dose: 100 mg Documented By: YEN Calcium Carbonate (Calcium Carbonate 750 Mg Tab.Chew) 750 mg PO Q4H PRN PRN Reason: Heartburn Enoxaparin Sodium (Enoxaparin Sodium 40 Mg/0.4 Ml Syringe) 40 mg SUBCUT Q24H [facility] Last Admin: 08/10/24 23:50 Dose: 40 mg Documented By: MIRZA Famotidine (Famotidine 20 Mg Tablet) 40 mg PO BEDTIME [facility] Ferrous Sulfate (Ferrous Sulfate 324 Mg Tablet.) 324 mg PO DAILY [facility] Gabapentin (Gabapentin 400 Mg Capsule) 800 mg PO TID [facility] Guaifenesin (Guaifenesin La 600 Mg Tab.Er.12h) 600 mg PO BID [facility] Last Admin: 08/11/24 08:16 Dose: 600 mg Documented By: TUCKER Insulin Human Lispro (Insulin Lispro 100 Unit/Ml 3 Ml Vial) 0 unit SUBCUT QIDACHS [facility]; Protocol Last Admin: 08/11/24 08:15 Dose: 4 unit Documented By: TUCKER Magnesium Hydroxide (Milk Of Magnesia 30 Ml Oral.Susp) 30 ml PO DAILY PRN PRN Reason: Constipation Magnesium Oxide (Magnesium Oxide 400 Mg Tablet) 400 mg PO DAILY [facility] Melatonin (Melatonin 3 Mg Tablet) 6 mg PO BEDTIME PRN PRN Reason: Insomnia Methocarbamol (Methocarbamol 500 Mg Tablet) 500 mg PO TID [facility] Last Admin: 08/11/24 08:16 Dose: 500 mg Documented By: TUCKER Methylprednisolone Sodium Succinate (Methylprednisolone Sod Succ 40 Mg/Ml Vial) 40 mg IVPUSH Q24H [facility] Last Admin: 08/11/24 08:16 Dose: 40 mg Documented By: TUCKER Metoclopramide HCl (Metoclopramide Hcl 10 Mg Tablet) 20 mg PO TIDWMEAL [facility] Nicotine (Nicotine 14 Mg Patch.Td24) mg TRANSDERMA DAILY [facility] Non-Formulary Medication (Rosuvastatin) 5 mg PO DAILY [facility] Omeprazole (Omeprazole 20 Mg Capsule.) 20 mg PO BID@0630,1630 [facility] Last Admin: 08/11/24 06:24 Dose: Not Given Documented By: YEN Non-Admin Reason: Patient Refused Ondansetron HCl (Ondansetron Hcl 4 Mg/2 Ml Vial) 4 mg IVPUSH Q8H PRN PRN Reason: Nausea and Vomiting Sodium Chloride (0.9 % Sodium Chloride Flush 3 Ml Syringe) 3 ml IVFLUSH QSHIFT [facility] Last Admin: 08/11/24 08:16 Dose: 3 ml Documented By: TUCKER Vitamin D (Cholecalciferol (Vitamin D3) 25 Mcg Tablet) 50 mcg PO DAILY [facility] Labs 08/11/24 08:22 08/11/24 08:15 Labs: Laboratory Results - last 24 hr 08/10/24 08/10/24 08/10/24 19:33 20:31 23:17 MCV 83.7 MCH 25.5 L MCHC 30.5 L RDW 18.4 H Plt Count 324 MPV 9.7 Immature Gran % (Auto) 0.6 H Neut % (Auto) 81.5 H Lymph % (Auto) 11.4 L [place] % (Auto) 5.8 Eos % (Auto) 0.4 Baso % (Auto) 0.3 Lymph # (Auto) 3.0 [place] # (Auto) 1.6 H Eos # (Auto) 0.1 Baso # (Auto) 0.1 Abs Immat Gran (auto) 0.16 H Absolute Neuts (auto) 21.7 H Absolute Nucleated RBC 0.000 Nucleated RBC % (auto) 0.0 Smear Tech's Comments VERIFIED PT 11.2 INR 1.0 Anion Gap 15 Estim Creat Clear Calc 72.8 Estimated GFR > 60 POC Glucose Random Glucose 186 H Lactic Acid 5.6 H* Lactic Acid F/U @ 2Hr 3.1 H* Lactic Acid F/U @ 4Hr Calcium 9.9 D Magnesium 1.3 L* Total Bilirubin 0.3 AST 11 ALT 8 Alkaline Phosphatase 76 Troponin I High Sens 6.0 D Total Protein 6.7 Albumin 4.1 Lipase 15 Influenza Type A (PCR) NEGATIVE Influenza Type B (PCR) NEGATIVE RSV RNA Qual (PCR) NEGATIVE SARS-CoV-2 RNA (RT-PCR) NEGATIVE 08/11/24 08/11/24 08/11/24 01:46 07:18 08:15 MCV MCH MCHC RDW Plt Count MPV Immature Gran % (Auto) Neut % (Auto) Lymph % (Auto) [place] % (Auto) Eos % (Auto) Baso % (Auto) Lymph # (Auto) [place] # (Auto) Eos # (Auto) Baso # (Auto) Abs Immat Gran (auto) Absolute Neuts (auto) Absolute Nucleated RBC Nucleated RBC % (auto) Smear Tech's Comments PT INR Anion Gap 14 Estim Creat Clear Calc 80.2 Estimated GFR > 60 POC Glucose 232 H Random Glucose 247 H Lactic Acid Lactic Acid F/U @ 2Hr Lactic Acid F/U @ 4Hr 2.6 H* Calcium 9.2 D Magnesium 1.8 Total Bilirubin AST ALT Alkaline Phosphatase Troponin I High Sens 4.5 Total Protein Albumin Lipase Influenza Type A (PCR) Influenza Type B (PCR) RSV RNA Qual (PCR) SARS-CoV-2 RNA (RT-PCR) 08/11/24 08:22 MCV 85.0 MCH 26.3 L MCHC 30.9 L RDW 18.5 H Plt Count 277 MPV 9.9 Immature Gran % (Auto) Neut % (Auto) Lymph % (Auto) [place] % (Auto) Eos % (Auto) Baso % (Auto) Lymph # (Auto) [place] # (Auto) Eos # (Auto) Baso # (Auto) Abs Immat Gran (auto) Absolute Neuts (auto) Absolute Nucleated RBC 0.000 Nucleated RBC % (auto) 0.0 Smear Tech's Comments PT INR Anion Gap Estim Creat Clear Calc Estimated GFR POC Glucose Random Glucose Lactic Acid Lactic Acid F/U @ 2Hr Lactic Acid F/U @ 4Hr Calcium Magnesium Cancelled Total Bilirubin AST ALT Alkaline Phosphatase Troponin I High Sens Total Protein Albumin Lipase Influenza Type A (PCR) Influenza Type B (PCR) RSV RNA Qual (PCR) SARS-CoV-2 RNA (RT-PCR) Assessment and Plan (1) Acute hypokalemia: Status: Acute (2) COPD exacerbation: Status: Acute Plan A 64 years old lady with PMH of COPD on 2L O2, smoker, GERD, HTN, renal cell ca who presents with worsening SOB and dyspnea with reported chest discomfort for couple of days [employer]. COPD exacerbation and chronic respiratory failure with hypoxia pt still with wheezing will continue iv steroids and updrafts Acute hypokalemia, hypoMg repleted with IV follow closely Acute lactic acidosis Not due to severe sepsis Likely from Metformin and nebulizers Leukocytosis No clear source of infection, not due to sepsis likely from steroid usage To monitor Abd pain likely due to her gastroparesis will try oral meds at this time, but may need to switch to IV Type II DM w Gastroparesis continue PO meds SSI Continue Reglan Mixed hyperlipidemia On statin Hypertension Continue home antihypertensives Mood disorder Continue home mood stabilizers Renal Cell Ca outpt f/u with plans for cryoablation DVT prophylaxis: Lovenox Full code reason for continued hospitalization and change to inpt: pt with on going COPD exacerbation compounded by abd. pain due to gastroparesis and unable to tolerate PO meds therefore requires IV treatment, furthermore has electrolyte abnormalities requiring monitoring and repletion with IV Quality Stroke Does the patient have a stroke diagnosis?: No VTE Prior VTE?: No VTE Risk Level:: Medical - moderate - high VTE Device Contraindication: Treatment Not Indicated VTE Drug Contraindication: N/A - Med Ordered
[2024-08-11] MEDS: Albuterol/Iprat 2.5/0.5MG 3 ML AMPUL.NEB INHALE ×3 (11:27→19:27)
[2024-08-11 11:31] LABS: Glucose, Whole Blood 200 mg/dL (60-115)
[2024-08-11] MEDS: Metoclopramide HCl 10 MG TABLET 20 MG PO ×2 (11:33→16:25)
[2024-08-11] MEDS: Atorvastatin Calcium 20 MG TABLET PO (11:33)
[2024-08-11] MEDS: Gabapentin 400 MG CAPSULE 800 MG PO ×3 (11:33→20:38)
[2024-08-11] MEDS: Nicotine 14 MG PATCH.TD24 TRANSDERMA (11:33)
--- NOTE | 2024-08-11 14:12 | MHC.CM.PN ---
PT is recommending home with services; CM will follow.
[2024-08-11] MEDS: Omeprazole 20 MG CAPSULE.DR PO (16:25)
[2024-08-11] MEDS: Baclofen 10 MG TABLET PO ×2 (16:25→20:38)
[2024-08-11 16:32] LABS: Glucose, Whole Blood 317 mg/dL (60-115)
[2024-08-11 20:30] LABS: Glucose, Whole Blood 285 mg/dL (60-115)
[2024-08-11] MEDS: Famotidine 20 MG TABLET 40 MG PO (20:38)
[2024-08-11] MEDS: Aspirin Enteric Coated 81 MG TABLET.DR PO (20:38)
[2024-08-11] MEDS: Enoxaparin Sodium 40 MG/0.4 ML SYRINGE SUBCUT (22:46)
[2024-08-12] VITALS (10 sets, daily range): BP systolic 114–145; BP diastolic 52–65; PULSE 76–90; RESP 16–20; TEMP 36.1–36.6; O2SAT 93–100
--- NOTE | 2024-08-12 05:00 | PC.NURSE ---
Assumed care of patient at 23:00. Report provided by previous nurse JAVIER Aldana.
[2024-08-12] MEDS: Omeprazole 20 MG CAPSULE.DR PO ×2 (06:00→15:39)
[2024-08-12 07:09] LABS: Glucose, Whole Blood 225 mg/dL (60-115)
[2024-08-12] MEDS: Albuterol/Iprat 2.5/0.5MG 3 ML AMPUL.NEB INHALE ×4 (08:01→20:00)
[2024-08-12] MEDS: Atorvastatin Calcium 20 MG TABLET PO (08:36)
[2024-08-12] MEDS: Magnesium Oxide 400 MG TABLET PO (08:36)
[2024-08-12] MEDS: 0.9 % Sodium Chloride Flush 3 ML SYRINGE IVFLUSH ×2 (08:36→15:42)
[2024-08-12] MEDS: Gabapentin 400 MG CAPSULE 800 MG PO ×3 (08:36→20:33)
[2024-08-12] MEDS: guaiFENesin LA 600 MG TAB.ER.12H PO ×2 (08:36→20:34)
[2024-08-12] MEDS: Metoclopramide HCl 10 MG TABLET 20 MG PO ×3 (08:36→15:38)
[2024-08-12] MEDS: methocarbamoL 500 MG TABLET PO ×3 (08:36→20:34)
[2024-08-12] MEDS: Baclofen 10 MG TABLET PO ×3 (08:37→20:34)
[2024-08-12] MEDS: Cholecalciferol (Vitamin D3) 25 MCG TABLET 50 MCG PO (08:37)
[2024-08-12] MEDS: Insulin Lispro 100 UNIT/ML 3 ML VIAL SUBCUT ×4 (08:37→22:00)
[2024-08-12] MEDS: Ferrous Sulfate 324 MG TABLET.DR PO (08:37)
[2024-08-12] MEDS: Nicotine 14 MG PATCH.TD24 TRANSDERMA (08:37)
[2024-08-12] MEDS: methylPREDNISolone Sod Succ 40 MG/ML VIAL IVPUSH (08:37)
[2024-08-12 11:29] LABS: Glucose, Whole Blood 199 mg/dL (60-115)
[2024-08-12] MEDS: guaiFENesin DM 600/30 1 TAB TAB.ER.12H PO ×2 (12:00→20:33)
[2024-08-12] MEDS: Benzonatate 100 MG CAPSULE PO ×3 (12:01→20:34)
--- NOTE | 2024-08-12 14:37 | HO.PM.IMPN ---
Subjective Subjective Date of Service: 08/12/24 Interval History: seen and evaluated this morning feels better overall still coughing no other events Review of Systems Review of Systems: Yes all other systems are reviewed and are negative Physical Exam Vital Signs: Vital Signs: Last Vital Signs Temp 97.9 F 08/12/24 11:37 Pulse 90 08/12/24 11:46 Resp 17 08/12/24 11:46 BP 114/56 L 08/12/24 11:37 Pulse Ox 95 08/12/24 11:37 O2 Del Method Nasal Cannula 08/12/24 11:37 O2 Flow Rate 2 08/12/24 11:37 BMI result Body Mass Index 23.9 Const: Other: Constitutional : Awake, interactive Neck : Normal inspection, Supple Cardiovascular : RRR, no JVP, no lower extremity edema Respiratory : decreased bilateral air entry, no crackles, bilateral expiratory wheezing ,on O2 supplement Gastrointestinal: soft, lax, Normal bowel sounds, Non tender Skin : Warm, Dry Neurological : Alert & oriented x3, No focal deficit Objective Data Active Medications Acetaminophen (Acetaminophen 325 Mg Tablet) 650 mg PO Q6H PRN PRN Reason: Pain, Mild 1-3,fever,headache Last Admin: 08/11/24 04:09 Dose: 650 mg Documented By: YEN Albuterol Sulfate (Albuterol Sulfate (0.083%) 2.5 Mg/3 Ml Vial.Neb) 2.5 mg INHALE RQ4H PRN PRN Reason: Shortness of Breath/Wheezing Albuterol/Ipratropium (Albuterol/Iprat 2.5/0.5mg 3 Ml Ampul.Neb) 3 ml INHALE RQ4H WHILE AWAKE [facility] Last Admin: 08/12/24 11:45 Dose: 3 ml Documented By: FELICIA Aspirin (Aspirin Enteric Coated 81 Mg Tablet.) 81 mg PO BEDTIME [facility] Last Admin: 08/11/24 20:38 Dose: 81 mg Documented By: RADHIKA Atorvastatin Calcium (Atorvastatin Calcium 20 Mg Tablet) 20 mg PO DAILY [facility] Last Admin: 08/12/24 08:36 Dose: 20 mg Documented By: DONN Baclofen (Baclofen 10 Mg Tablet) 10 mg PO TID [facility] Last Admin: 08/12/24 08:37 Dose: 10 mg Documented By: DONN Benzonatate (Benzonatate 100 Mg Capsule) 100 mg PO TID [facility] Last Admin: 08/12/24 12:01 Dose: 100 mg Documented By: DONN Calcium Carbonate (Calcium Carbonate 750 Mg Tab.Chew) 750 mg PO Q4H PRN PRN Reason: Heartburn Enoxaparin Sodium (Enoxaparin Sodium 40 Mg/0.4 Ml Syringe) 40 mg SUBCUT Q24H [facility] Last Admin: 08/11/24 22:46 Dose: 40 mg Documented By: RADHIKA Famotidine (Famotidine 20 Mg Tablet) 40 mg PO BEDTIME [facility] Last Admin: 08/11/24 20:38 Dose: 40 mg Documented By: RADHIKA Ferrous Sulfate (Ferrous Sulfate 324 Mg Tablet.Dr) 324 mg PO DAILY [facility] Last Admin: 08/12/24 08:37 Dose: 324 mg Documented By: DONN Gabapentin (Gabapentin 400 Mg Capsule) 800 mg PO TID [facility] Last Admin: 08/12/24 08:36 Dose: 800 mg Documented By: DONN Guaifenesin (Guaifenesin La 600 Mg Tab.Er.12h) 600 mg PO BID [facility] Last Admin: 08/12/24 08:36 Dose: 600 mg Documented By: DONN Guaifenesin/Dextromethorphan (Guaifenesin Dm 600/30 1 Tab Tab.Er.12h) 1 tab PO BID [facility] Last Admin: 08/12/24 12:00 Dose: 1 tab Documented By: DONN Insulin Human Lispro (Insulin Lispro 100 Unit/Ml 3 Ml Vial) 0 unit SUBCUT QIDACHS [facility]; Protocol Last Admin: 08/12/24 12:01 Dose: 2 unit Documented By: DONN Magnesium Hydroxide (Milk Of Magnesia 30 Ml Oral.Susp) 30 ml PO DAILY PRN PRN Reason: Constipation Magnesium Oxide (Magnesium Oxide 400 Mg Tablet) 400 mg PO DAILY [facility] Last Admin: 08/12/24 08:36 Dose: 400 mg Documented By: DONN Melatonin (Melatonin 3 Mg Tablet) 6 mg PO BEDTIME PRN PRN Reason: Insomnia Methocarbamol (Methocarbamol 500 Mg Tablet) 500 mg PO TID [facility] Last Admin: 08/12/24 08:36 Dose: 500 mg Documented By: DONN Methylprednisolone Sodium Succinate (Methylprednisolone Sod Succ 40 Mg/Ml Vial) 40 mg IVPUSH Q24H [facility] Last Admin: 08/12/24 08:37 Dose: 40 mg Documented By: DONN Metoclopramide HCl (Metoclopramide Hcl 10 Mg Tablet) 20 mg PO TIDWM [facility] Last Admin: 08/12/24 12:01 Dose: 20 mg Documented By: DONN Nicotine (Nicotine 14 Mg Patch.Td24) 14 mg TRANSDERMA DAILY [facility] Last Admin: 08/12/24 08:37 Dose: 14 mg Documented By: DONN Omeprazole (Omeprazole 20 Mg Capsule.Dr) 20 mg PO BID@0630,1630 [facility] Last Admin: 08/12/24 06:00 Dose: 20 mg Documented By: RASHAWN Ondansetron HCl (Ondansetron Hcl 4 Mg/2 Ml Vial) 4 mg IVPUSH Q8H PRN PRN Reason: Nausea and Vomiting Sodium Chloride (0.9 % Sodium Chloride Flush 3 Ml Syringe) 3 ml IVFLUSH QSHIFT [facility] Last Admin: 08/12/24 08:36 Dose: 3 ml Documented By: DONN Vitamin D (Cholecalciferol (Vitamin D3) 25 Mcg Tablet) 50 mcg PO DAILY [facility] Last Admin: 08/12/24 08:37 Dose: 50 mcg Documented By: DONN Labs 08/11/24 08:22 08/11/24 08:15 Labs: Laboratory Results - last 24 hr 08/11/24 08/11/24 08/12/24 16:20 20:20 07:00 POC Glucose 317 H 285 H 225 H 08/12/24 11:16 POC Glucose 199 H Microbiology Microbiology Results: Microbiology 08/10/24 20:42 Blood Culture - Preliminary Blood - Venous No growth after 24 hours. 08/10/24 20:31 Blood Culture - Preliminary Blood - Venous No growth after 24 hours. Assessment and Plan (1) Acute hypokalemia: Status: Acute (2) COPD exacerbation: Status: Acute Plan A 64 years old lady with PMH of COPD on 2L O2, smoker, GERD, HTN, renal cell ca who presents with worsening SOB and dyspnea with reported chest discomfort for couple of days [employer]. COPD exacerbation and chronic respiratory failure with hypoxia pt still with wheezing continue iv steroids and updrafts Acute hypokalemia, hypoMg repleted with IV follow closely Acute lactic acidosis Not due to severe sepsis Likely from Metformin and nebulizers Leukocytosis No clear source of infection, not due to sepsis likely from steroid usage To monitor Abd pain likely due to her gastroparesis tolerating oral meds at this time, to use IV svetlana needed Type II DM w Gastroparesis continue PO meds SSI Continue Reglan Mixed hyperlipidemia On statin Hypertension Continue home antihypertensives Mood disorder Continue home mood stabilizers Renal Cell Ca outpt f/u with plans for cryoablation DVT prophylaxis: Lovenox Full code pt with on going COPD exacerbation compounded by abd. pain due to gastroparesis and unable to tolerate PO meds therefore requires IV treatment, furthermore has electrolyte abnormalities requiring monitoring and repletion with IV Quality Stroke Does the patient have a stroke diagnosis?: No VTE Prior VTE?: No VTE Risk Level:: Medical - moderate - high VTE Device Contraindication: Treatment Not Indicated VTE Drug Contraindication: N/A - Med Ordered
[2024-08-12 15:24] LABS: Glucose, Whole Blood 332 mg/dL (60-115)
[2024-08-12] MEDS: Aspirin Enteric Coated 81 MG TABLET.DR PO (20:34)
[2024-08-12] MEDS: Famotidine 20 MG TABLET 40 MG PO (20:34)
[2024-08-12 20:53] LABS: Glucose, Whole Blood 204 mg/dL (60-115)
[2024-08-12] MEDS: Enoxaparin Sodium 40 MG/0.4 ML SYRINGE SUBCUT (22:01)
[2024-08-13] MEDS: 0.9 % Sodium Chloride Flush 3 ML SYRINGE IVFLUSH ×2 (00:51→07:30)
[2024-08-13 02:54] VITALS: BP 172/72; PULSE 75; RESP 18; TEMP 36.6; O2SAT 99
[2024-08-13 06:49] LABS: MANUAL DIFF FLAG NO
[2024-08-13] MEDS: Omeprazole 20 MG CAPSULE.DR PO (06:51)
[2024-08-13 06:59] VITALS: BP 151/63; PULSE 76; RESP 18; TEMP 36.6; O2SAT 99
[2024-08-13 07:00] LABS: Basophils Absolute Auto 0.1 X10*3/uL (0.0-0.2); Basophils Percent Auto 0.4 % (0-2); Eosinophils Absolute Auto 0.1 X10*3/uL (0.0-0.4); Eosinophils Percent Auto 0.5 % (0-4); Hemoglobin 10.7 g/dl (12.0-16.0); Imm Gran Abs Auto 0.08 X10*3/uL (0.00-0.03); Imm Gran Pct Auto 0.6 % (0.0-0.4); Lymphocytes Absolute Auto 2.6 X10*3/uL (1.2-4.9); Lymphocytes Percent Auto 20.7 % (20-40); Mean Corpuscular HGB Conc 29.7 g/dl (31.0-35.0); Mean Corpuscular Hemoglobin 25.7 pg (27.0-33.0); Mean Corpuscular Volume 86.3 fL (80.0-98.0); Monocytes Absolute Auto 0.8 X10*3/uL (0.1-1.2); Monocytes Percent Auto 6.6 % (2-11); Neutrophils Absolute Auto 9.1 x10*3/uL (2.0-8.3); Neutrophils Percent Auto 71.2 % (45-73); Platelet Count 269 X10*3/uL (160-400); Red Blood Count 4.17 X10*6/uL (4.20-5.50); Red Cell Distribution Width 18.3 % (11.0-16.0); White Blood Count 12.8 X10*3/uL (4.8-10.8)
[2024-08-13 07:08] LABS: Anion Gap 12 (12-20); Blood Urea Nitrogen 8 mg/dL (9-16); Calcium 8.9 mg/dL (8.4-10.2); Carbon Dioxide 32 mmol/L (22-29); Chloride 103 mmol/L (96-108); Creatinine Clr Calc Pharmacy 81.9; Estimated Glomerular Filt Rate > 60; Glucose Random 112 mg/dL (60-115); Potassium 4.1 mmol/L (3.3-5.1); Sodium 143 mmol/L (135-145)
[2024-08-13 07:15] LABS: Glucose, Whole Blood 111 mg/dL (60-115)
[2024-08-13] MEDS: Metoclopramide HCl 10 MG TABLET 20 MG PO ×2 (07:29→12:10)
[2024-08-13] MEDS: Cholecalciferol (Vitamin D3) 25 MCG TABLET 50 MCG PO (07:29)
[2024-08-13] MEDS: methylPREDNISolone Sod Succ 40 MG/ML VIAL IVPUSH (07:29)
[2024-08-13] MEDS: Gabapentin 400 MG CAPSULE 800 MG PO (07:29)
[2024-08-13] MEDS: Nicotine 14 MG PATCH.TD24 TRANSDERMA (07:29)
[2024-08-13] MEDS: Magnesium Oxide 400 MG TABLET PO (07:30)
[2024-08-13] MEDS: guaiFENesin DM 600/30 1 TAB TAB.ER.12H PO (07:30)
[2024-08-13] MEDS: Baclofen 10 MG TABLET PO (07:30)
[2024-08-13] MEDS: methocarbamoL 500 MG TABLET PO (07:30)
[2024-08-13] MEDS: guaiFENesin LA 600 MG TAB.ER.12H PO (07:30)
[2024-08-13] MEDS: Benzonatate 100 MG CAPSULE PO (07:30)
[2024-08-13] MEDS: Atorvastatin Calcium 20 MG TABLET PO (07:30)
[2024-08-13] MEDS: Ferrous Sulfate 324 MG TABLET.DR PO (07:30)
[2024-08-13] MEDS: Albuterol/Iprat 2.5/0.5MG 3 ML AMPUL.NEB INHALE ×2 (07:44→11:40)
[2024-08-13 07:48] VITALS: PULSE 84; RESP 18
[2024-08-13 11:01] VITALS: BP 133/57; PULSE 88; RESP 18; TEMP 36.8; O2SAT 95
--- NOTE | 2024-08-13 11:12 | PM.DS ---
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 No palpitations, nausea, vomiting, diarrhea or urinary symptoms. she noticed wheezing and coughing and had to use her prn nebulizer as inhalers were not helping much. Her O2 requirements did not change from 2L. She reports coughing and pain in her chest and upper stomach which has been persistent for months. In ED CXR not showing any acute findings. Has Low potassium level and elevated Lactic acid and WBCs. admitted for COPD exacerbation. Hospital course The patient was treated for COPD exacerbation and chronic respiratory failure with hypoxia treated with IV Steroids and nebulizers with cough medications and improved as she was weaned down to her baseline of 2L with good tolerance and was able to exert herself with no reported dyspnea. To be discharged on tapering dose steroids and cough medicine. She was noted to have Acute hypokalemia, hypoMagnesemia which were replaced and monitored. Was noted to have Acute lactic acidosis Likely from Metformin and nebulizers which recovered. Had Leukocytosis with No clear source of infection as CXR was negative for infiltrates. likely from steroid usage Reported epigastric abd pain likely due to her gastroparesis. tolerating oral meds at this time and improved with PPI. Discharge plan PRednbisone tapering dose as prescribed Cough medications regular and as needed Methocarbamol as muscle relaxant as needed Time Attestation Discharge Coordination Time (in mins): 38 Quality: Safe Use of Opioids Does Pt have an Active Cancer Diagnosis on the Problem List?: No Quality: Stroke Does the patient have a stroke diagnosis?: No Physical Exam Vital Signs: Vital Signs: Last Vital Signs Temp 98.3 F 08/13/24 11:01 Pulse 88 08/13/24 11:01 Resp 18 08/13/24 11:01 BP 133/57 L 08/13/24 11:01 Pulse Ox 95 08/13/24 11:01 O2 Del Method Nasal Cannula 08/13/24 11:01 O2 Flow Rate 2 08/13/24 11:01 BMI result Body Mass Index 23.9 Const: Other: Constitutional : Awake, interactive Neck : Normal inspection, Supple Cardiovascular : RRR, no JVP, no lower extremity edema Respiratory : fair bilateral air entry, no crackles, scattered expiratory wheezing ,on O2 supplement Gastrointestinal: soft, lax, Normal bowel sounds, Non tender Skin : Warm, Dry Neurological : Alert & oriented x3, No focal deficit DS: Data Data Completed and Pending Labs on day of discharge: Laboratory Results - last 24 hr 08/12/24 08/12/24 08/12/24 11:16 15:04 20:46 WBC RBC Hgb Hct MCV MCH MCHC RDW Plt Count MPV Immature Gran % (Auto) Neut % (Auto) Lymph % (Auto) [place] % (Auto) Eos % (Auto) Baso % (Auto) Lymph # (Auto) [place] # (Auto) Eos # (Auto) Baso # (Auto) Abs Immat Gran (auto) Absolute Neuts (auto) Absolute Nucleated RBC Nucleated RBC % (auto) Sodium Potassium Chloride Carbon Dioxide Anion Gap BUN Creatinine Estim Creat Clear Calc Estimated GFR POC Glucose 199 H 332 H 204 H Random Glucose Calcium 08/13/24 08/13/24 05:58 07:11 WBC 12.8 H RBC 4.17 L Hgb 10.7 L Hct 36.0 L MCV 86.3 MCH 25.7 L MCHC 29.7 L RDW 18.3 H Plt Count 269 MPV 10.0 Immature Gran % (Auto) 0.6 H Neut % (Auto) 71.2 Lymph % (Auto) 20.7 [place] % (Auto) 6.6 Eos % (Auto) 0.5 Baso % (Auto) 0.4 Lymph # (Auto) 2.6 [place] # (Auto) 0.8 Eos # (Auto) 0.1 Baso # (Auto) 0.1 Abs Immat Gran (auto) 0.08 H Absolute Neuts (auto) 9.1 H Absolute Nucleated RBC 0.000 Nucleated RBC % (auto) 0.0 Sodium 143 Potassium 4.1 Chloride 103 Carbon Dioxide 32 H Anion Gap 12 BUN 8 L Creatinine 0.48 L Estim Creat Clear Calc 81.9 Estimated GFR > 60 POC Glucose 111 Random Glucose 112 Calcium 8.9 Preliminary micro results at discharge 08/10/24 20:42 Blood Culture - Preliminary Blood - Venous No growth after 48 hours. 08/10/24 20:31 Blood Culture - Preliminary Blood - Venous No growth after 48 hours. Imaging Chest x-ray: Radiologist's impression: ITS Impressions Chest X-Ray 08/10/24 21:14 IMPRESSION: No active cardiopulmonary disease. Electronically signed by: Nestor Kim MD 08/10/2024 10:05 PM [facility] [place] Discharge Plan Discharge Anticipated Discharge Date/Time: 08/13/24 11:07 Patient Disposition: Home, Self-Care Discharge Diagnosis: COPD exacerbation, hypoxia, hypokalemia Referrals: Magalie Nicolas MD [Primary Care Provider] - 1 Week Discharge Medications: New methocarbamol 500 mg Tablet 500 mg PO TID PRN (Reason: Muscle Spasm) Qty: 30 0RF benzonatate 100 mg Capsule 100 mg PO TID PRN (Reason: cough) Qty: 30 0RF guaifenesin [Mucinex] 600 mg Tablet Extended Release 12hr 600 mg PO BID Qty: 20 0RF prednisone 10 mg tablet See Taper PO DIRECTED Qty: 30 0RF Taper: Prednisone 40 mg daily for 3 Days and 0 Hour 30 mg daily for 3 Days and 0 Hour 20 mg daily for 3 Days and 0 Hour 10 mg daily for 3 Days and 0 Hour Rx Instructions: see taper instructions Continued (DME) lancets [FreeStyle Lancets] 28 gauge misc See Rx Instructions .Route Qty: 100 5RF Rx Instructions: As directed twice a day AC (DME) FreeStyle Lite Strips Strip See Rx Instructions .Route Qty: 100 0RF Rx Instructions: check fasting blood sugar twice a day before meals (DME) FreeStyle Cristian 2 Sensor Kit See Rx Instructions .Route Qty: 6 3RF Rx Instructions: Test blood sugar 4 times per day (DME) FreeStyle Cristian 2 [place] Misc See Rx Instructions .Route Qty: 1 0RF Rx Instructions: test blood sugar 4 times per day gabapentin 800 mg tablet 800 mg PO TID 30 Days Qty: 90 6RF rosuvastatin 5 mg tablet 5 mg PO DAILY Qty: 90 1RF losartan 50 mg tablet 50 mg PO DAILY Qty: 90 1RF amlodipine 5 mg tablet 5 mg PO DAILY Qty: 90 1RF cholecalciferol (vitamin D3) 50 mcg (2,000 unit) capsule 50 mcg PO DAILY Qty: 90 1RF psyllium husk [Fiber Laxative (psyllium husk)] 0.52 gram capsule 1.04 g PO BID baclofen 10 mg tablet 10 mg PO TID metformin 1,000 mg tablet 1,000 mg PO BID acetaminophen 650 mg Tablet Extended Release 650 mg PO TID PRN (Reason: Pain) ferrous sulfate 324 mg (65 mg iron) tablet,delayed release (DR/EC) 324 mg PO DAILY magnesium oxide 400 mg (241.3 mg magnesium) Tablet 400 mg PO DAILY Qty: 7 0RF simethicone [Anti-Gas Ultra Strength] 180 mg capsule 180 mg PO QID famotidine 40 mg tablet 40 mg PO BEDTIME varenicline 1 mg tablet 1 mg PO BID Januvia 100 mg tablet 100 mg PO DAILY Anoro Ellipta 62.5-25 mcg/actuation blister with device 1 ea INHALATION DAILY Arnuity Ellipta 200 mcg/actuation blister with device 1 inh inhalation DAILY nicotine 14 mg/24 hr patch 24 hour 1 patch topical DAILY aspirin [Adult Low Dose Aspirin] 81 mg tablet,delayed release (DR/EC) 81 mg PO BEDTIME (DME) blood-glucose meter [FreeStyle Lite Meter] Kit See Rx Instructions .Route Qty: 1 0RF Rx Instructions: As directed twice a day before meals Linzess 72 mcg capsule 72 mcg PO DAILY metoclopramide HCl [Reglan] 10 mg tablet 20 mg PO TIDWMEAL Qty: 180 6RF pantoprazole 40 mg tablet,delayed release (DR/EC) 40 mg PO DAILY Qty: 30 5RF Rx Instructions: take in am , 1 hour before food or medicine intake ipratropium-albuterol 0.5 mg-3 mg(2.5 mg base)/3 mL solution for nebulization 3 ml inhalation Q6H 30 Days Qty: 180 1RF Discharge Orders: Discharge Order (Routine); Ordered 08/13/24 Ordered By: Isabell Manzo Diet: Advance to usual diet Activity on Discharge: As tolerated Stand Alone Forms: Patient Portal Discharge page Print Language: Luxembourgish Care Plan Goals: PRednbisone tapering dose as prescribed Cough medications regular and as needed Methocarbamol as muscle relaxant as needed Health Concerns: COPD exacerbation Plan of Treatment: Steroids, cough medicine Assessment: as above
[2024-08-13 11:14] LABS: Glucose, Whole Blood 274 mg/dL (60-115)
--- NOTE | 2024-08-13 11:20 | MHC.CM.PN ---
Pt has been medically cleared for DC, she will go home via private transport, plan is: self care.
[2024-08-13 11:43] VITALS: PULSE 87; RESP 18
[2024-08-13] MEDS: Insulin Lispro 100 UNIT/ML 3 ML VIAL SUBCUT (12:09)
== END 2024-08-13 12:52 | disposition home or self-care (01) | DRG 140 ==
LOC: HO.ED 21:07 → HO.EDOVER 23:07 → HO.IMC 08-11 01:41
PROVIDERS: Family Medicine; Physician Assistant; Physician Assistant Medical; Admitting Provider Student in an Organized Health Care Education/Training Program; Emergency Provider Emergency Medicine; PCP Internal Medicine; Visit Provider Student in an Organized Health Care Education/Training Program
DX: J44.1 Chronic obstructive pulmonary disease with (acute) exacerbation (principal); E87.21 Acute metabolic acidosis; J96.11 Chronic respiratory failure with hypoxia; E11.43 Type 2 diabetes mellitus with diabetic autonomic (poly)neuropathy; K31.84 Gastroparesis; C64.9 Malignant neoplasm of unspecified kidney, except renal pelvis; Z99.81 Dependence on supplemental oxygen; E78.2 Mixed hyperlipidemia; E83.42 Hypomagnesemia; E87.6 Hypokalemia; F17.210 Nicotine dependence, cigarettes, uncomplicated; K59.04 Chronic idiopathic constipation; Z20.822 Contact with and (suspected) exposure to COVID-19; Z71.6 Tobacco abuse counseling; Z79.84 Long term (current) use of oral hypoglycemic drugs; Z79.899 Other long term (current) drug therapy
CPT/HCPCS: 0241U; 36415; 71045; 80048; 80053; 82947; 83605; 83690; 83735; 84484; 85025; 85027; 85610; 87040; 93005; 94640; 97162; 99285; J0696; J1650; J2919; J3475; J3480

== ENCOUNTER → 2024-08-10 19:12 | Outpatient (BNV) | payer OTHER, SELFPAY | PROVIDERS: Admitting Provider Student in an Organized Health Care Education/Training Program; Emergency Provider Emergency Medicine; PCP Internal Medicine; Visit Provider Internal Medicine Cardiovascular Disease | DX: R94.31 Abnormal electrocardiogram [ECG] [EKG] (principal) | CPT/HCPCS: 93010 ==

== ENCOUNTER → 2024-08-10 22:56 | Outpatient (BNV) | payer OTHER, SELFPAY | PROVIDERS: Admitting Provider Student in an Organized Health Care Education/Training Program; Emergency Provider Emergency Medicine; PCP Internal Medicine; Visit Provider Student in an Organized Health Care Education/Training Program | DX: J96.21 Acute and chronic respiratory failure with hypoxia (principal); J44.1 Chronic obstructive pulmonary disease with (acute) exacerbation; E87.6 Hypokalemia | CPT/HCPCS: 99222; 99232; 99233; 99239 ==

== ENCOUNTER 2024-08-17 12:21 | Emergency (ER) | payer OTHER, SELFPAY ==
--- NOTE | ~2024-08-17 | XR_ITS ---
EXAMINATION: XR CHEST CLINICAL INFORMATION: dyspnea COMPARISON: None available. TECHNIQUE: Frontal view of the chest was obtained. FINDINGS: No significant abnormality is noted involving the heart, lungs, mediastinum, bony thorax or soft tissues. XR/XR chest 1V IMPRESSION: Unremarkable chest examination. Electronically signed by: Ankit Miller MD 08/17/2024 01:31 PM [facility]
[2024-08-17 12:37] VITALS: BP 153/70; PULSE 95; RESP 18; TEMP 36.6; O2SAT 94; BMI 24.7
--- NOTE | 2024-08-17 12:37 | ED_ITS ---
HPI - General Adult General Chief complaint: General Medical Stated complaint: diff breathing, stomach issues Time Seen by Provider: 08/17/24 18:22 Source: patient Mode of arrival: ambulatory Limitations: no limitations History of Present Illness ED Provider: Dr. Loreto Cruz HPI narrative: Patient comes to the emergency room complaining of shortness of breath. Patient states that she was discharged about 4 days ago from the hospital for COPD. Patient states that she is still short of breath. Patient known to use oxygen 2 L at home. Patient denies any falls, denies any injuries. When I speak to the patient, patient does not seem to be interested in case management/short-term rehab. However, reading patient's triage note, seems that patient's partner is frustrated, patient getting weaker. Patient states that she is usually able to walk by herself, but now she has has a hard time doing so. Related Data Home Medications ?Medication ?Instructions ?Recorded ?Confirmed aspirin 81 mg tablet,delayed 81 mg PO BEDTIME 01/10/21 08/14/24 release (Adult Low Dose Aspirin) psyllium husk 0.52 gram capsule 1.04 g PO BID Constipation 02/28/24 08/14/24 (Fiber Laxative (psyllium husk)) baclofen 10 mg tablet 10 mg PO TID 05/06/24 08/14/24 metformin 1,000 mg tablet 1,000 mg PO BID 05/06/24 08/14/24 acetaminophen 650 mg 650 mg PO TID PRN Pain 05/30/24 08/14/24 tablet,extended release ferrous sulfate 324 mg (65 mg 324 mg PO DAILY 05/30/24 08/14/24 iron) tablet,delayed release linaclotide 72 mcg capsule 72 mcg PO DAILY 07/12/24 08/14/24 (Linzess) famotidine 40 mg tablet 40 mg PO BEDTIME 07/26/24 08/14/24 fluticasone furoate 200 1 inh inhalation DAILY 07/26/24 08/14/24 mcg/actuation blister powder for inhalation (Arnuity Ellipta) simethicone 180 mg capsule 180 mg PO QID 07/26/24 08/14/24 (Anti-Gas Ultra Strength) sitagliptin phosphate 100 mg 100 mg PO DAILY 07/26/24 08/14/24 tablet (Januvia) umeclidinium 62.5 mcg-vilanterol 1 ea inhalation DAILY 07/26/24 08/14/24 25 mcg/actuation powdr for inhalation (Anoro Ellipta) varenicline 1 mg tablet 1 mg PO BID 07/26/24 08/14/24 nicotine 14 mg/24 hr daily 1 patch topical DAILY 08/11/24 08/14/24 transdermal patch Previous Rx's ?Medication ?Instructions ?Recorded blood-glucose meter (FreeStyle #1 ea 10/03/21 Lite Meter kit) lancets 28 gauge (FreeStyle #100 ea 01/06/22 Lancets) FreeStyle Lite Strips (blood sugar #100 ea 03/10/22 diagnostic) flash glucose sensor (FreeStyle #6 ea 02/19/23 Cristian 2 Sensor kit) flash glucose scanning reader #1 ea 03/26/23 (FreeStyle Cristian 2 [place]) gabapentin 800 mg tablet 800 mg PO TID 30 days #90 tabs 01/26/24 magnesium oxide 400 mg (241.3 mg 400 mg PO DAILY #7 tabs 06/01/24 magnesium) tablet ipratropium 0.5 mg-albuterol 3 mg 3 ml inhalation Q6H wheezing 1 06/21/24 (2.5 mg base)/3 mL nebulization month #180 mL soln losartan 50 mg tablet 50 mg PO DAILY #90 tabs 07/11/24 rosuvastatin 5 mg tablet 5 mg PO DAILY #90 tabs 07/11/24 metoclopramide HCl 10 mg tablet 20 mg (2 x 10 mg) PO TIDWMEAL #180 07/12/24 (Reglan) tabs amlodipine 5 mg tablet 5 mg PO DAILY #90 tabs 07/21/24 cholecalciferol (vitamin D3) 50 50 mcg PO DAILY #90 caps 07/21/24 mcg (2,000 unit) capsule pantoprazole 40 mg tablet,delayed 40 mg PO DAILY #30 tabs 08/07/24 release benzonatate 100 mg capsule 100 mg PO TID PRN cough #30 caps 08/13/24 guaifenesin 600 mg tablet, 600 mg PO BID #20 tabs 08/13/24 extended release 12 hr (Mucinex) methocarbamol 500 mg tablet 500 mg PO TID PRN Muscle Spasm #30 08/13/24 tabs prednisone 10 mg tablet See Taper PO DIRECTED #30 tabs 08/13/24 azithromycin 250 mg tablet 250 mg PO DAILY 4 days #4 tabs 08/17/24 Allergies Allergy/AdvReac Type Severity Reaction Status Date / Time amoxicillin [AMOXICILLIN] Allergy Intermediate RASH Verified 08/17/24 12:39 Review of Systems 2 Review of Systems: Constitutional : No Weight loss, No Fever, No Chills, No Night Sweats, complaining of chronic fatigue and generalized weakness, no malaise ENT/Mouth : No Hearing loss, No Ear Pain, No Nasal Congestion, No Sinus Pain, No Hoarseness, No sore throat, No Rhinorrhea, No Swallowing Difficulty Eyes: No Eye Pain, No Swelling, No Redness, No Foreign Body, No Discharge, No Vision Changes Cardiovascular : No Chest Pain, No SOB, No Dyspnea on Exertion, No Orthopnea, No Edema, No Palpitations Respiratory : Complaining of chronic cough wheezing and shortness of breath Gastrointestinal : No Nausea, No Vomiting, No Diarrhea, No Constipation, No abdominal Pain, No Hematochezia, No Melena Genitourinary : no irregular bleeding, No Dysuria, No Urinary Frequency, No Hematuria, No Urinary Incontinence, No Urgency, No Flank Pain, No Urinary Flow Changes, No Hesitancy Musculoskeletal : No joint pain, No Myalgias, No Joint Swelling Skin : No Skin Lesions, No rash Neuro : No Weakness, No Numbness, No Paresthesias, No Loss of Consciousness, No Dizziness, No Headache Psych : No Anxiety/Panic, No Depression, No SI/HI/AH/VH, No Social Issues, Heme/Lymph: No Bruising, No Bleeding,No Lymphadenopathy Endocrine : No Polyuria, No Polydipsia, No Temperature Intolerance [facility] Past Medical History Medical History COPD mixed type Gastritis Gastroparesis COPD (chronic obstructive pulmonary disease) Shortness of breath Hypochromic anemia Type 2 diabetes mellitus without complication, with no history of insulin use Heavy cigarette smoker Diabetic gastroparesis COPD (chronic obstructive pulmonary disease) Mixed dyslipidemia Essential hypertension GERD (gastroesophageal reflux disease) Diastolic CHF with preserved left ventricular function, NYHA class 2 Chronic hypercapnic respiratory failure Type 2 diabetes mellitus with other diabetic kidney complication Type 2 diabetes mellitus without complication, with no history of insulin use Smoker unmotivated to quit Postlaminectomy syndrome of cervical region Seasonal allergic rhinitis Degenerative disc disease, cervical Postmenopause Dyslipidemia Surgical History H/O cervical discectomy History of esophagogastroduodenoscopy (EGD) Hx of colonoscopy Family History Family History Mother Diabetes Sister Diabetes Mental health disorder Brother Diabetes Father HTN (hypertension) Social History Social History Household Members: Significant Other Housing: Apartment Housing Other:: mobile home Do you presently have visiting nurse or other home services: Yes (weekly health promotion specialist services) Alcohol intake: never Comment: Commode/ Hi Flow O2 Patient Tobacco Use Status: Current everyday Tobacco user Tobacco use type: Cigarette Cigarette Packs Per Day: 0.5 Years Smoked: 50 Smoked in Last 30 Days: Yes e-Cigarette/Vaping Use: Never Used Second Hand Smoke Exposure: Yes Use of substances other than those prescribed or required for medical reasons: No Advance Directives: Yes Advance Directives on File: Yes Advance Directives Date on File: 08/02/23 Do you have a plan to hurt others: No Plan service: No Current occupational status: unemployed and disabled Gender identity: Female Cognitive needs: No Hearing needs: No Vision needs: Yes Physical Exam ED Vital Signs: Vital Signs - 24 hr 08/17/24 12:37 08/17/24 17:38 08/17/24 18:50 Temperature 98 F 98.2 F Pulse Rate 95 87 76 Respiratory Rate 18 16 18 Blood Pressure 153/70 H 150/65 H Pulse Oximetry 94 95 Oxygen Delivery Method Room Air Room Air Oxygen Flow Rate 08/17/24 19:54 08/17/24 21:46 Temperature 98.6 F 98.4 F Pulse Rate 82 83 Respiratory Rate 16 18 Blood Pressure 138/61 148/69 H Pulse Oximetry 95 95 Oxygen Delivery Method Nasal Cannula Nasal Cannula Oxygen Flow Rate 2 2 BMI result Body Mass Index 24.7 Const Other: Appearance: Alert. Oriented X3. No acute distress. Eyes: Pupils equal, round and reactive to light. ENT: Pharynx normal. Neck: Normal inspection. Neck supple. No lymph nodes noted. No crepitus CVS: Normal heart rate and rhythm. Pulses normal. Normal S1 and S2 Respiratory: No respiratory distress. Patient is saturating in the mid 90s on her usual 2 L, bilateral wheezing, no rales or crackles Abdomen: Soft and nontender. No rigidity. No distention. Skin: Skin warm and dry. Normal skin color. Normal skin turgor. Extremities: No lower extremity edema. No Lacerations. No Rash Neuro: Oriented X 3. No motor deficit. No sensory deficit. Moving all extremities. No slurred speech. CN 2 through 12 grossly intact Psych: calm, cooperative, normal affect Course Course Course Narrative: 64 yo female with PMH of COPD on 2L NC, HTN, gastritis, hypomagnesemia, anema, renal cell carcinoma, GERD, DM2, not on blood thinners here with c/o just not feeling good. Has had multiple ED visits and admissions. Patient and note she is not getting stronger. Has been home for 3 days and she just can't do much. She sleeps all the time she has no resources. She c/o persisent belly pain. Her breathing is not worse than usual. All of her symptoms are just there and they are frustrated she isn't well. No n/v/d, no GIB symptoms. Labs ordered, EKG, CXR. This could be a case management issue this is a RAPID medical screening exam the rest of the history and physical exam is to be done by the main provider. Medications Administered Discontinued Medications Generic Name Dose Route Start Last Admin Trade Name Freq PRN Reason Stop Dose Admin Albuterol Sulfate 2.5 mg/ 0 mg 08/17/24 18:46 08/17/24 18:56 Albuterol/Ipratropium 3 ml INHALE 08/17/24 18:47 1 dose ONCE ONE Administration Methylprednisolone Sodium Succinate 125 mg 08/17/24 18:38 08/17/24 19:04 Methylprednisolone Sod Succ 125 Mg/2 Ml Vial IVPUSH 08/17/24 18:39 125 mg ONCE ONE Administration Medical Decision Making Medical Decision Making [facility] Narrative: Patient receiving a nebulization treatment and steroids. My interpretation of labs: At baseline chemistry, white blood cell count 16.2, patient is currently on steroids, magnesium 1.5, repleted orally, normal LFTs, normal troponin lipase BNP Chest x-ray within normal limits. Patient states that she does not need any help at home, states that she lives with her boyfriend/. However, patient seems very weak. After getting a nebulization treatment and steroids, we will assess if she can not walk by herself. From patient's conversation with the triage provider, seems that patient may need physical therapy/short-term rehab After a dose of Solu-Medrol and a nebulization treatment, patient feeling much better. Patient was able to ambulate to the bathroom using her 2 L of oxygen, no oxygen desaturations. PT/case management was offered, patient declined. Patient's nurse called the patient's , agrees to pick her up. Given patient's past medical history and current hospitalization, antibiotics will be started. Differential Diagnosis Differential Diagnoses: The differential diagnosis associated with the presentation includes (Chronic lung disease, asthma exacerbation my deconditioning) Lab Data MDM Lab Attestation statement: I reviewed the patient's lab results. 08/17/24 13:29 08/17/24 13:29 Labs: Lab Results 08/17/24 Range/Units 13:29 WBC 16.8 H (4.8-10.8) X10*3/uL RBC 4.89 (4.20-5.50) X10*6/uL Hgb 12.7 (12.0-16.0) g/dl Hct 41.1 (37.0-47.0) % MCV 84.0 (80.0-98.0) fL MCH 26.0 L (27.0-33.0) pg MCHC 30.9 L (31.0-35.0) g/dl RDW 18.4 H (11.0-16.0) % Plt Count 319 (160-400) X10*3/uL MPV 9.7 (9.4-12.3) fL Immature Gran % (Auto) 0.6 H (0.0-0.4) % Neut % (Auto) 76.6 H (45-73) % Lymph % (Auto) 16.9 L (20-40) % [place] % (Auto) 5.4 (2-11) % Eos % (Auto) 0.3 (0-4) % Baso % (Auto) 0.2 (0-2) % Lymph # (Auto) 2.8 (1.2-4.9) X10*3/uL [place] # (Auto) 0.9 (0.1-1.2) X10*3/uL Eos # (Auto) 0.1 (0.0-0.4) X10*3/uL Baso # (Auto) 0.0 (0.0-0.2) X10*3/uL Abs Immat Gran (auto) 0.10 H (0.00-0.03) X10*3/uL Absolute Neuts (auto) 12.9 H (2.0-8.3) x10*3/uL Absolute Nucleated RBC 0.000 (0.0-0.012) X10*3/uL Nucleated RBC % (auto) 0.0 (0.0-0.2) /100WBC Sodium 140 (135-145) mmol/L Potassium 4.4 (3.3-5.1) mmol/L Chloride 101 (96-108) mmol/L Carbon Dioxide 29 (22-29) mmol/L Anion Gap 14 (12-20) BUN 11 (9-16) mg/dL Creatinine 0.53 (0.5-1.4) mg/dL Estim Creat Clear Calc 75.1 Estimated GFR > 60 Random Glucose 133 H (60-115) mg/dL Calcium 10.0 D (8.4-10.2) mg/dL Magnesium 1.5 L (1.6-2.6) mg/dL Total Bilirubin 0.3 (0.0-1.0) mg/dL Direct Bilirubin 0.1 (0.0-0.5) mg/dL AST 16 (5-31) U/L ALT 16 (0-31) U/L Alkaline Phosphatase 73 (39-117) U/L Troponin I High Sens 4.7 (<3.5-17.0) ng/L B-Natriuretic Peptide < 10 (<100) pg/mL Total Protein 7.0 (6.5-8.0) g/dL Albumin 4.2 (3.5-5.0) g/dL Lipase 13 (8-78) U/L Radiology Impression Discussion of test interpretation with radiology: I have reviewed the radiologist's reading. Discharge Plan Discharge Clinical Impression: Chronic lung disease Patient Disposition: Home, Self-Care Instructions: Chronic Bronchitis (ED) Additional Instructions: Please follow-up with your primary care physician tomorrow. If you have any worsening or new symptoms, please return to the emergency room or call 911 Prescriptions: New azithromycin 250 mg tablet 250 mg PO DAILY 4 Days Qty: 4 0RF Rx Instructions: start on day 2 of therapy No Action (DME) lancets [FreeStyle Lancets] 28 gauge misc See Rx Instructions .Route Qty: 100 5RF Rx Instructions: As directed twice a day AC (DME) FreeStyle Lite Strips Strip See Rx Instructions .Route Qty: 100 0RF Rx Instructions: check fasting blood sugar twice a day before meals (DME) FreeStyle Cristian 2 Sensor Kit See Rx Instructions .Route Qty: 6 3RF Rx Instructions: Test blood sugar 4 times per day (DME) FreeStyle Cristian 2 [place] Misc See Rx Instructions .Route Qty: 1 0RF Rx Instructions: test blood sugar 4 times per day gabapentin 800 mg tablet 800 mg PO TID 30 Days Qty: 90 6RF rosuvastatin 5 mg tablet 5 mg PO DAILY Qty: 90 1RF losartan 50 mg tablet 50 mg PO DAILY Qty: 90 1RF amlodipine 5 mg tablet 5 mg PO DAILY Qty: 90 1RF cholecalciferol (vitamin D3) 50 mcg (2,000 unit) capsule 50 mcg PO DAILY Qty: 90 1RF psyllium husk [Fiber Laxative (psyllium husk)] 0.52 gram capsule 1.04 g PO BID baclofen 10 mg tablet 10 mg PO TID metformin 1,000 mg tablet 1,000 mg PO BID acetaminophen 650 mg Tablet Extended Release 650 mg PO TID PRN (Reason: Pain) ferrous sulfate 324 mg (65 mg iron) tablet,delayed release (DR/EC) 324 mg PO DAILY magnesium oxide 400 mg (241.3 mg magnesium) Tablet 400 mg PO DAILY Qty: 7 0RF simethicone [Anti-Gas Ultra Strength] 180 mg capsule 180 mg PO QID famotidine 40 mg tablet 40 mg PO BEDTIME varenicline 1 mg tablet 1 mg PO BID Januvia 100 mg tablet 100 mg PO DAILY Anoro Ellipta 62.5-25 mcg/actuation blister with device 1 ea INHALATION DAILY Arnuity Ellipta 200 mcg/actuation blister with device 1 inh inhalation DAILY nicotine 14 mg/24 hr patch 24 hour 1 patch topical DAILY methocarbamol 500 mg Tablet 500 mg PO TID PRN (Reason: Muscle Spasm) Qty: 30 0RF benzonatate 100 mg Capsule 100 mg PO TID PRN (Reason: cough) Qty: 30 0RF guaifenesin [Mucinex] 600 mg Tablet Extended Release 12hr 600 mg PO BID Qty: 20 0RF prednisone 10 mg tablet See Taper PO DIRECTED Qty: 30 0RF Taper: Prednisone 40 mg daily for 3 Days and 0 Hour 30 mg daily for 3 Days and 0 Hour 20 mg daily for 3 Days and 0 Hour 10 mg daily for 3 Days and 0 Hour Rx Instructions: see taper instructions aspirin [Adult Low Dose Aspirin] 81 mg tablet,delayed release (DR/EC) 81 mg PO BEDTIME (DME) blood-glucose meter [FreeStyle Lite Meter] Kit See Rx Instructions .Route Qty: 1 0RF Rx Instructions: As directed twice a day before meals Linzess 72 mcg capsule 72 mcg PO DAILY metoclopramide HCl [Reglan] 10 mg tablet 20 mg PO TIDWMEAL Qty: 180 6RF pantoprazole 40 mg tablet,delayed release (DR/EC) 40 mg PO DAILY Qty: 30 5RF Rx Instructions: take in am , 1 hour before food or medicine intake ipratropium-albuterol 0.5 mg-3 mg(2.5 mg base)/3 mL solution for nebulization 3 ml inhalation Q6H 30 Days Qty: 180 1RF Print Language: Faroese
--- NOTE | 2024-08-17 12:40 | ECG_ITS ---
Test Reason : SOB Blood Pressure : / mmHG Vent. Rate : 091 BPM Atrial Rate : 091 BPM P-R Int : 122 ms QRS Dur : 074 ms QT Int : 364 ms P-R-T Axes : 077 084 054 degrees QTc Int : 447 ms Normal sinus rhythm Nonspecific T wave abnormality Abnormal ECG When compared with ECG of 10-AUG-2024 23:16, No significant change was found Referred By: Leigh Haywood Electronically Signed By:YOHAN PATEL MD
[2024-08-17 13:34] LABS: MANUAL DIFF FLAG NO
[2024-08-17 13:38] LABS: Basophils Percent Auto 0.2 % (0-2); Eosinophils Absolute Auto 0.1 X10*3/uL (0.0-0.4); Eosinophils Percent Auto 0.3 % (0-4); Hematocrit 41.1 % (37.0-47.0); Hemoglobin 12.7 g/dl (12.0-16.0); Imm Gran Pct Auto 0.6 % (0.0-0.4); Lymphocytes Absolute Auto 2.8 X10*3/uL (1.2-4.9); Lymphocytes Percent Auto 16.9 % (20-40); Mean Corpuscular HGB Conc 30.9 g/dl (31.0-35.0); Mean Platelet Volume 9.7 fL (9.4-12.3); Monocytes Absolute Auto 0.9 X10*3/uL (0.1-1.2); Monocytes Percent Auto 5.4 % (2-11); Neutrophils Absolute Auto 12.9 x10*3/uL (2.0-8.3); Neutrophils Percent Auto 76.6 % (45-73); Platelet Count 319 X10*3/uL (160-400); Red Blood Count 4.89 X10*6/uL (4.20-5.50); Red Cell Distribution Width 18.4 % (11.0-16.0); White Blood Count 16.8 X10*3/uL (4.8-10.8)
[2024-08-17 13:57] LABS: Alanine Aminotransferase 16 U/L (0-31); Albumin Level 4.2 g/dL (3.5-5.0); Alkaline Phosphatase 73 U/L (39-117); Anion Gap 14 (12-20); Aspartate Amino Transferase 16 U/L (5-31); Bilirubin Direct 0.1 mg/dL (0.0-0.5); Bilirubin Total 0.3 mg/dL (0.0-1.0); Blood Urea Nitrogen 11 mg/dL (9-16); Carbon Dioxide 29 mmol/L (22-29); Chloride 101 mmol/L (96-108); Creatinine Clr Calc Pharmacy 75.1; Estimated Glomerular Filt Rate > 60; Glucose Random 133 mg/dL (60-115); Lipase 13 U/L (8-78); Magnesium 1.5 mg/dL (1.6-2.6); Potassium 4.4 mmol/L (3.3-5.1); Sodium 140 mmol/L (135-145)
[2024-08-17 13:58] LABS: B Type Natriuretic Peptide < 10 pg/mL (<100)
[2024-08-17 14:01] LABS: Troponin-I High Sensitivity 4.7 ng/L (<3.5-17.0)
[2024-08-17 17:38] VITALS: BP 150/65; PULSE 87; RESP 16; TEMP 36.8; O2SAT 95
[2024-08-17 18:50] VITALS: PULSE 76; RESP 18; O2SAT 95
[2024-08-17] MEDS: Albuterol Sulfate 2.5 MG, Albuterol/Iprat 2.5/0.5MG 3 ML 3 ML INHALE (18:56)
[2024-08-17] MEDS: methylPREDNISolone Sod Succ 125 MG/2 ML VIAL IVPUSH (19:04)
[2024-08-17 19:54] VITALS: BP 138/61; PULSE 82; RESP 16; TEMP 37; O2SAT 95
[2024-08-17 21:46] VITALS: BP 148/69; PULSE 83; RESP 18; TEMP 36.9; O2SAT 95
--- NOTE | 2024-08-17 22:15 | MHC.EDTECH ---
ASSISTED PT TO BATHROOM FOR AMBULATION TRIAL PER PROVIDER. PT WALKS WITH STEADY GAIT AND WOULD LIKE TO GO HOME. PROVIDER NOTIFIED.
--- NOTE | 2024-08-17 22:35 | PC.NURSE ---
Pt states not wanting to stay in the hospital any longer and needs to return home as pt has a GI appt in the morning. Pt requesting assistance contacting boyfriend, Martin, at [phone]. VM left for Martin.
--- NOTE | 2024-08-17 22:38 | PC.NURSE ---
Martin called back. States having no issues or concerns with pt returning back home. Martin states will arrive within the next 30 min.
[2024-08-17] MEDS: Azithromycin 500 MG TABLET PO (23:24)
[2024-08-17 23:31] VITALS: BP 136/64; PULSE 89; RESP 20; TEMP 36.6; O2SAT 90
== END 2024-08-17 23:35 | disposition home or self-care (01) ==
PROVIDERS: Emergency Medicine; Emergency Provider Emergency Medicine; PCP Internal Medicine
DX: J44.9 Chronic obstructive pulmonary disease, unspecified (principal); J98.4 Other disorders of lung; R06.02 Shortness of breath; E11.9 Type 2 diabetes mellitus without complications; R94.31 Abnormal electrocardiogram [ECG] [EKG]; F17.210 Nicotine dependence, cigarettes, uncomplicated; Z79.899 Other long term (current) drug therapy
CPT/HCPCS: 36415; 71045; 80048; 80076; 83690; 83735; 83880; 84484; 85025; 93005; 94640; 99284; 99285; J2919

== ENCOUNTER → 2024-08-17 12:40 | Outpatient (BNV) | payer OTHER, SELFPAY | PROVIDERS: PCP Internal Medicine; Visit Provider Internal Medicine Cardiovascular Disease | DX: R94.31 Abnormal electrocardiogram [ECG] [EKG] (principal) | CPT/HCPCS: 93010 ==

== ENCOUNTER → 2024-08-17 12:40 | Outpatient (BNV) | payer OTHER, SELFPAY | PROVIDERS: PCP Internal Medicine; Visit Provider Radiology Diagnostic Radiology | DX: R06.00 Dyspnea, unspecified (principal) | CPT/HCPCS: 71045 ==

== ENCOUNTER 2024-08-18 15:12 | Outpatient (AMB) | payer OTHER, SELFPAY ==
[2024-08-18 15:16] VITALS: BP 155/70; PULSE 92; BMI 23.1
--- NOTE | 2024-08-18 15:16 | A.OFFVIS_ITS ---
Vital Signs 08/18/24 15:16 Height 4 ft 9 in Weight 106 lb 11.26 oz BMI 23.1 BP 155/70 H Blood Pressure Location Lt brachial Position Sitting Pulse 92 Intake Visit Reasons: Follow up abd pain 5 weeks Intake Note: Patient in office today in 5 weeks follow up of gastroparesis. CC: Patient reports that she has been seen in the ER 6 times since her last visit d/t GI and respiratory problems. Pt continues to have nausea, constipation alternation with diarrhea, poor appetite, and feeling weak. Patient's partner reports concern about a diagnostic test the patient had done in the ER and was told there was something flattened in her abdomen. 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 Accompanied by: Significant Other Allergies amoxicillin [AMOXICILLIN] Allergy (Intermediate, Verified 08/18/24 15:31) RASH HPI HPI Follow up abd pain 5 weeks: Details: Assessment & Plan (1) Gastroparesis: Code(s): K31.84 - Gastroparesis Category: Medical (2) Renal cell carcinoma: Code(s): C64.9 - Malignant neoplasm of unspecified kidney, except renal pelvis Category: Medical Qualifiers: Laterality: right Qualified Code(s): C64.1 - Malignant neoplasm of right kidney, except renal pelvis (3) GERD (gastroesophageal reflux disease): Code(s): K21.9 - Gastro-esophageal reflux disease without esophagitis Category: Medical Qualifiers: Esophagitis presence: without esophagitis Qualified Code(s): K21.9 - Gastro-esophageal reflux disease without esophagitis (4) Chronic idiopathic constipation: Code(s): K59.04 - Chronic idiopathic constipation Category: Medical Plan She is accompanied today by her significant other who is supportive She still has not heard from Interventional Radiology she did see the ultimate hoops trainer who did not seem to think her problems were yet in his round to treat especially since she has not had anything biopsy get. She continues to have nausea and I think this increasing problem with her gastroparesis could be related to pressure that this area of inflammation and mass effect is exerting on her upper abdomen. Will try increasing her to 20 mg of Reglan 3 times a day. I have written up the phone numbers for both Oncology and Interventional Radiology to see if they can get in touch with them. Return office visit in 4 weeks. In the meantime she continues on her lansoprazole, Linzess, magnesium, psyllium husk fiber, and simethicone. She asks me about a ?sq pill? that she says is making her feel odd but to my kn owledge none of the medications I prescribed come in a sq shape. However this could be different depending on the generic roundhouse firer/fireman. I asked him to try to either clarify this or bring the medications with her to the next visit so I can find out what this is Return office visit in 4 weeks Medications: New metoclopramide HCl (Reglan) 20 mg (2 x 10 mg) PO TIDWMEAL 180 tabs 6RF K31.84 - Gastroparesis Discontinued sucralfate Discontinued Reason: Doctor's Order 1 g PO BID PRN 60 tabs 0RF upper abdominal pain metoclopramide HCl Discontinued Reason: Doctor's Order 10 mg PO TID 90 tabs 6RF TODAYS VISIT She is here today with her significant other who is supportive. Lack of appetite continues w/o much effect from 20mg reglan tid. She also has continued nausea. Is slowly seeing all of the specialists, no new information on RCC. US showed ? gallstones but not borne out on CT. Her PCP changed her from my bid lansoparzole to qd pantoprazole (why??), so I will get bid coverage. Her respiratory status status again decompensated, she was just d/c'd 08/13, had abx and steroids. because of her frequent admissions short term rehab for resp stabilization had been discussed - maybe in future. Her continuous poor respiratory function really limits what studies we can do in terms of her gastric presentation. It is also limiting the treatment of her renal cancer and I am uncertain how much this is contributing to her overall problems of nausea and lack of appetite. Next avail. [facility], [facility] Medical History COPD mixed type Gastritis Gastroparesis COPD (chronic obstructive pulmonary disease) Shortness of breath Hypochromic anemia Type 2 diabetes mellitus without complication, with no history of insulin use Heavy cigarette smoker Diabetic gastroparesis COPD (chronic obstructive pulmonary disease) Mixed dyslipidemia Essential hypertension GERD (gastroesophageal reflux disease) Diastolic CHF with preserved left ventricular function, NYHA class 2 Chronic hypercapnic respiratory failure Type 2 diabetes mellitus with other diabetic kidney complication Type 2 diabetes mellitus without complication, with no history of insulin use Smoker unmotivated to quit Postlaminectomy syndrome of cervical region Seasonal allergic rhinitis Degenerative disc disease, cervical Postmenopause Dyslipidemia Surgical History H/O cervical discectomy History of esophagogastroduodenoscopy (EGD) Hx of colonoscopy Family History Mother Diabetes Sister Diabetes Mental health disorder Brother Diabetes Father HTN (hypertension) Social History Household Members: Significant Other Housing: Apartment Housing Other:: mobile home Do you presently have visiting nurse or other home services: Yes (weekly bindery chief services) Alcohol intake: never Comment: Commode/ Hi Flow O2 Patient Tobacco Use Status: Current everyday Tobacco user Tobacco use type: Cigarette Cigarette Packs Per Day: 0.5 Years Smoked: 50 e-Cigarette/Vaping Use: Never Used Second Hand Smoke Exposure: Yes Advance Directives Date on File: 08/02/23 service: No Current occupational status: unemployed and disabled Gender identity: Female Cognitive needs: No Hearing needs: No Vision needs: Yes Review of Systems Const Reports fatigue, Denies fever(s), Reports malaise, Denies night sweats, Reports poor appetite, Reports weakness and Reports weight loss ENT Reports Normal hearing present, Denies dental pain, Denies dysphagia, Denies hearing loss, Denies mouth pain, Denies odynophagia, Denies throat swelling, Denies tongue swelling and Reports other (Dentition adequate) Card Reports no additional complaints and Reports dyspnea on exertion Resp Reports chest congestion, Reports cough, Reports dyspnea on exertion and Reports wheezing GI Details: Reports abdominal pain, Denies melena, Denies bloating, Denies hematochezia, Denies constipation, Denies GI cramping, Denies dysphagia, Denies excessive flatus, Reports early satiety, Reports heartburn, Denies diarrhea, Reports nausea, Denies odynophagia, Denies vomiting and Denies hematemesis Skin/Breast Denies pruritus, Denies lesions, Denies rash and Denies jaundice Neuro Reports Normal hearing present, Denies Abnormal speech present and Reports weakness Endo Reports fatigue Aller/Immun Denies throat swelling, Denies tongue swelling and Reports wheezing Physical Exam Vital Signs: Last Vital Signs Pulse 92 08/18/24 15:16 BP 155/70 H 08/18/24 15:16 BMI result Body Mass Index 23.1 Const General: cooperative, no acute distress, well developed and well groomed Nutritional Appearance: well nourished and overweight Orientation/consciousness: oriented to person, oriented to place and oriented to time Limitations: No language barrier and other limitations (Limited Education and low functioning cognitive abilities) HEENT Head: Yes normocephalic and Yes atraumatic Eyes General: appearance normal, both eyes and all related structures Pupils: Equal, round and reactive pupils present Neck Neck: Yes normal visual inspection and Yes no lymphadenopathy Thyroid: Thyroid normal Resp Effort & Inspection: not able to speak in complete sentences, audible wheezes, Actively coughing Quality: wet and prolonged expiratory phase Auscultation: rhonchi and wheezes Cardio Rate: regular rate Rhythm: regular rhythm Heart sounds: Normal, physiologic split S2 sound present Peripheral pulses: radial pulses present and posterior tibial pulses present GI Inspection: No distended, No Abdominal panniculus present and Yes obesity Palpation (GI): Soft to palpation, nontender, no guarding, not rigid and No hepatosplenomegaly present Percussion: Yes normal to percussion Auscultation: normal bowel sounds Rectal Exam - Female: deferred Skin General skin exam: no rashes or lesions noted, turgor normal, skin not dry, no jaundice, No spider nevi and no striae Rashes: no rashes Nails: normal Neuro General: oriented to person, oriented to place and oriented to time Cranial nerves: Yes Equal, round and reactive pupils present and Yes Normal hearing present Speech: No Abnormal speech present Extrem General: Yes normal to inspection, No clubbing, No cyanosis and No edema Psych Appearance: disheveled Mental Status: other Speech and movement: Slowed speech present (Psych) Affect: Blunted affect present Attitude: cooperative Thought process: not confabulating and Impoverished thought process present Thought content: Normal thought content present Insight: Poor insight present (Psych) Judgement: Poor judgement present (Psych) Assessment & Plan Assessment & Plan (1) GERD (gastroesophageal reflux disease): Code(s): K21.9 - Gastro-esophageal reflux disease without esophagitis Category: Medical Qualifiers: Esophagitis presence: without esophagitis Qualified Code(s): K21.9 - Gastro-esophageal reflux disease without esophagitis (2) Gastritis: Code(s): K29.70 - Gastritis, unspecified, without bleeding Category: Medical Qualifiers: Chronicity: chronic Gastritis bleeding: without bleeding Gastritis type: unspecified gastritis Qualified Code(s): K29.50 - Unspecified chronic gastritis without bleeding (3) Gastroparesis: Code(s): K31.84 - Gastroparesis Category: Medical (4) Weight loss: Code(s): R63.4 - Abnormal weight loss Category: Medical Plan She is here today with her significant other who is supportive. Lack of appetite continues w/o much effect from 20mg reglan tid. She also has continued nausea. Is slowly seeing all of the specialists, no new information on RCC. US showed ? gallstones but not borne out on CT. Her PCP changed her from my bid lansoparzole to qd pantoprazole (why??), so I will get bid coverage. Her respiratory status status again decompensated, she was just d/c'd 08/13, had abx and steroids. because of her frequent admissions short term rehab for resp stabilization had been discussed - maybe in future. Her continuous poor respiratory function really limits what studies we can do in terms of her gastric presentation. It is also limiting the treatment of her renal cancer and I am uncertain how much this is contributing to her overall problems of nausea and lack of appetite. Next avail. Medications: Changed From pantoprazole take in am , 1 hour before food or medicine intake 40 mg PO DAILY 30 tabs 5RF K21.9 - Gastro-esophageal reflux disease without esophagitis, K29.50 - Unspecified chronic gastritis without bleeding To pantoprazole take in am , 1 hour before food or medicine intake 40 mg PO BID 180 tabs 1RF K21.9 - Gastro-esophageal reflux disease without esophagitis, K29.50 - Unspecified chronic gastritis without bleeding Coding Level of Care Code Est Pt Level 3 (64836) Diagnoses Gastroesophageal reflux disease without esophagitis K21.9 Esophagitis presence: without esophagitis Chronic gastritis without bleeding, unspecified gastritis type K29.50 Chronicity: chronic Gastritis bleeding: without bleeding Gastritis type: unspecified gastritis Gastroparesis K31.84 Weight loss R63.4
== END 2024-08-18 16:18 | disposition home or self-care (01) ==
PROVIDERS: PCP Internal Medicine; Visit Provider Nurse Practitioner
DX: K21.9 Gastro-esophageal reflux disease without esophagitis (principal); K29.50 Unspecified chronic gastritis without bleeding; K31.84 Gastroparesis; R63.4 Abnormal weight loss
CPT/HCPCS: 99213

== ENCOUNTER → 2024-08-18 15:12 | Outpatient (BNVA) | payer OTHER, SELFPAY | PROVIDERS: PCP Internal Medicine; Visit Provider Nurse Practitioner | DX: K31.84 Gastroparesis (principal); K29.50 Unspecified chronic gastritis without bleeding; K21.9 Gastro-esophageal reflux disease without esophagitis; R63.4 Abnormal weight loss | CPT/HCPCS: 99212 ==

== ENCOUNTER → 2024-08-21 15:10 | Outpatient (BNVA) | payer OTHER, SELFPAY | PROVIDERS: PCP Internal Medicine; Visit Provider Urology | DX: C64.1 Malignant neoplasm of right kidney, except renal pelvis (principal) ==

== ENCOUNTER 2024-08-27 16:25 | Emergency (ER) | payer OTHER, SELFPAY ==
--- NOTE | ~2024-08-27 | XR_ITS ---
CLINICAL HISTORY: shortness of breath 2 view chest x-ray Comparison: CR - XR CHEST 1V - 08/03/24 17:23 EST CR/SR - XR CHEST 2V - 07/25/24 16:00 EST Findings: New right basilar opacity concerning for pneumonia. No pleural effusion or pneumothorax. Normal size heart. Aortic atherosclerosis. No acute fracture. IMPRESSION: 1. Right basilar opacity concerning for pneumonia, new since prior study. This document has been electronically signed by: Estevan Morales MD on 08/27/2024 18:09:27
[2024-08-27 17:27] VITALS: BP 125/67; PULSE 90; RESP 18; TEMP 36.7; O2SAT 96; BMI 23.9
--- NOTE | 2024-08-27 17:30 | ED.GENADULT ---
HPI - General Adult General Chief complaint: Dyspnea Stated complaint: diff breathing Time Seen by Provider: 08/27/24 21:42 Source: patient and EMS Mode of arrival: EMS Limitations: no limitations History of Present Illness ED Provider: Dr. Loreto Cruz HPI narrative: patient comes to the emergency room complaining of shortness of breath and coughing. Patient states that she has been smoking less than usual. Patient states that she has a bit of weakness but otherwise doing well. Patient uses oxygen 2 L for COPD at home. EMS and patient's nurse have noted patient's oxygen saturation is 94% and above on patient's usual 2 L of oxygen. Related Data Home Medications ?Medication ?Instructions ?Recorded ?Confirmed aspirin 81 mg tablet,delayed 81 mg PO BEDTIME 01/10/21 08/23/24 release (Adult Low Dose Aspirin) psyllium husk 0.52 gram capsule 1.04 g PO BID Constipation 02/28/24 08/23/24 (Fiber Laxative (psyllium husk)) metformin 1,000 mg tablet 1,000 mg PO BID 05/06/24 08/23/24 acetaminophen 650 mg 650 mg PO TID PRN Pain 05/30/24 08/23/24 tablet,extended release ferrous sulfate 324 mg (65 mg 324 mg PO DAILY 05/30/24 08/23/24 iron) tablet,delayed release linaclotide 72 mcg capsule 72 mcg PO DAILY 07/12/24 08/23/24 (Linzess) famotidine 40 mg tablet 40 mg PO BEDTIME 07/26/24 08/23/24 fluticasone furoate 200 1 inh inhalation DAILY 07/26/24 08/23/24 mcg/actuation blister powder for inhalation (Arnuity Ellipta) simethicone 180 mg capsule 180 mg PO QID 07/26/24 08/23/24 (Anti-Gas Ultra Strength) sitagliptin phosphate 100 mg 100 mg PO DAILY 07/26/24 08/23/24 tablet (Januvia) umeclidinium 62.5 mcg-vilanterol 1 ea inhalation DAILY 07/26/24 08/23/24 25 mcg/actuation powdr for inhalation (Anoro Ellipta) varenicline 1 mg tablet 1 mg PO BID 07/26/24 08/23/24 nicotine 14 mg/24 hr daily 1 patch topical DAILY 08/11/24 08/23/24 transdermal patch Previous Rx's ?Medication ?Instructions ?Recorded blood-glucose meter (FreeStyle #1 ea 10/03/21 Lite Meter kit) lancets 28 gauge (FreeStyle #100 ea 01/06/22 Lancets) FreeStyle Lite Strips (blood sugar #100 ea 03/10/22 diagnostic) flash glucose sensor (FreeStyle #6 ea 02/19/23 Cristian 2 Sensor kit) flash glucose scanning reader #1 ea 03/26/23 (FreeStyle Cristian 2 Palisade) gabapentin 800 mg tablet 800 mg PO TID 30 days #90 tabs 01/26/24 magnesium oxide 400 mg (241.3 mg 400 mg PO DAILY #7 tabs 06/01/24 magnesium) tablet ipratropium 0.5 mg-albuterol 3 mg 3 ml inhalation Q6H wheezing 1 06/21/24 (2.5 mg base)/3 mL nebulization month #180 mL soln losartan 50 mg tablet 50 mg PO DAILY #90 tabs 07/11/24 rosuvastatin 5 mg tablet 5 mg PO DAILY #90 tabs 07/11/24 metoclopramide HCl 10 mg tablet 20 mg (2 x 10 mg) PO TIDWMEAL #180 07/12/24 (Reglan) tabs amlodipine 5 mg tablet 5 mg PO DAILY #90 tabs 07/21/24 cholecalciferol (vitamin D3) 50 50 mcg PO DAILY #90 caps 07/21/24 mcg (2,000 unit) capsule benzonatate 100 mg capsule 100 mg PO TID PRN cough #30 caps 08/13/24 guaifenesin 600 mg tablet, 600 mg PO BID #20 tabs 08/13/24 extended release 12 hr (Mucinex) methocarbamol 500 mg tablet 500 mg PO TID PRN Muscle Spasm #30 08/13/24 tabs prednisone 10 mg tablet See Taper PO DIRECTED #30 tabs 08/13/24 azithromycin 250 mg tablet 250 mg PO DAILY 4 days #4 tabs 08/17/24 pantoprazole 40 mg tablet,delayed 40 mg PO BID #180 tabs 08/18/24 release baclofen 10 mg tablet 10 mg PO TID 30 days #90 tabs 08/24/24 azithromycin 250 mg tablet 250 mg PO DAILY 4 days #4 tabs 08/27/24 doxycycline monohydrate 100 mg 100 mg PO BID #10 caps 08/27/24 capsule prednisone 50 mg tablet 50 mg PO DAILY #4 tabs 08/27/24 Allergies Allergy/AdvReac Type Severity Reaction Status Date / Time amoxicillin [AMOXICILLIN] Allergy Intermediate RASH Verified 08/27/24 17:28 Review of Systems Review of Systems: Constitutional : No Weight loss, No Fever, No Chills, No Night Sweats, No Fatigue, No Malaise ENT/Mouth : No Hearing loss, No Ear Pain, No Nasal Congestion, No Sinus Pain, No Hoarseness, No sore throat, No Rhinorrhea, No Swallowing Difficulty Eyes: No Eye Pain, No Swelling, No Redness, No Foreign Body, No Discharge, No Vision Changes Cardiovascular : No Chest Pain, No SOB, No Dyspnea on Exertion, No Orthopnea, No Edema, No Palpitations Respiratory : complaining of more cough than usual, No Wheezing, No Smoke Exposure, No Dyspnea Gastrointestinal : No Nausea, No Vomiting, No Diarrhea, No Constipation, No abdominal Pain, No Hematochezia, No Melena Genitourinary : no irregular bleeding, No Dysuria, No Urinary Frequency, No Hematuria, No Urinary Incontinence, No Urgency, No Flank Pain, No Urinary Flow Changes, No Hesitancy Musculoskeletal : No joint pain, No Myalgias, No Joint Swelling Skin : No Skin Lesions, No rash Neuro : No Weakness, No Numbness, No Paresthesias, No Loss of Consciousness, No Dizziness, No Headache Psych : No Anxiety/Panic, No Depression, No SI/HI/AH/VH, No Social Issues, Heme/Lymph: No Bruising, No Bleeding,No Lymphadenopathy Endocrine : No Polyuria, No Polydipsia, No Temperature Intolerance [facility] Past Medical History Medical History COPD mixed type Gastritis Gastroparesis COPD (chronic obstructive pulmonary disease) Shortness of breath Hypochromic anemia Type 2 diabetes mellitus without complication, with no history of insulin use Heavy cigarette smoker Diabetic gastroparesis COPD (chronic obstructive pulmonary disease) Mixed dyslipidemia Essential hypertension GERD (gastroesophageal reflux disease) Diastolic CHF with preserved left ventricular function, NYHA class 2 Chronic hypercapnic respiratory failure Type 2 diabetes mellitus with other diabetic kidney complication Type 2 diabetes mellitus without complication, with no history of insulin use Smoker unmotivated to quit Postlaminectomy syndrome of cervical region Seasonal allergic rhinitis Degenerative disc disease, cervical Postmenopause Dyslipidemia Surgical History H/O cervical discectomy History of esophagogastroduodenoscopy (EGD) Hx of colonoscopy Family History Family History Mother Diabetes Sister Diabetes Mental health disorder Brother Diabetes Father HTN (hypertension) Social History Social History Household Members: Significant Other Housing: Apartment Housing Other:: mobile home Do you presently have visiting nurse or other home services: Yes (weekly financial services consultant services) Alcohol intake: never Comment: Commode/ Hi Flow O2 Patient Tobacco Use Status: Current everyday Tobacco user Tobacco use type: Cigarette Cigarette Packs Per Day: 0.5 Years Smoked: 50 e-Cigarette/Vaping Use: Never Used Second Hand Smoke Exposure: Yes Advance Directives: Yes Advance Directives on File: Yes Advance Directives Date on File: 08/02/23 Do you have a plan to hurt others: No Plan service: No Current occupational status: unemployed and disabled Gender identity: Female Cognitive needs: No Hearing needs: No Vision needs: Yes Physical Exam ED Vital Signs: Vital Signs - 24 hr 08/27/24 17:27 08/27/24 20:07 08/27/24 21:52 Temperature 98.0 F 98.6 F 98.6 F Pulse Rate 90 90 75 Respiratory Rate 18 18 19 Blood Pressure 125/67 133/67 124/51 L Pulse Oximetry 96 94 94 Oxygen Delivery Method Nasal Cannula Nasal Cannula Nasal Cannula Oxygen Flow Rate 2 BMI result Body Mass Index 23.9 Const Other: Appearance: Alert. Oriented X3. No acute distress. Eyes: Pupils equal, round and reactive to light. ENT: Pharynx normal. Neck: Normal inspection. Neck supple. No lymph nodes noted. No crepitus CVS: Normal heart rate and rhythm. Pulses normal. Normal S1 and S2 Respiratory: No respiratory distress. Breath sounds normal. No Wheezing. No rales Abdomen: Soft and nontender. No rigidity. No distention. Skin: Skin warm and dry. Normal skin color. Normal skin turgor. Extremities: No lower extremity edema. No Lacerations. No Rash Neuro: Oriented X 3. No motor deficit. No sensory deficit. Moving all extremities. No slurred speech. CN 2 through 12 grossly intact Psych: calm, cooperative, normal affect Course Course Course Narrative: This is an RME performed by Lian Freitas CNP: Additional HPI, ROS, PE not included below will be deferred to primary provider. Patient is a 64-year-old female who presents emergency department for evaluation of shortness of breath, difficulty breathing, abdominal pain, nausea, generalized weakness. Has inspiratory and expiratory wheezing bilaterally. Plan: Serum labs, viral serologies, EKG Medical Decision Making Medical Decision Making MDM Narrative: - chest x-ray shows right bibasilar opacities concerning for pneumonia which is new from previous study. Location was given p.o. azithromycin and doxycycline. Patient was ambulated in the emergency room using her 3 L, no oxygen saturation, steady 94% and above. Patient states that she feels strong enough to go home. Patient had no chest pain or shortness of breath. Urinalysis negative for UTI Differential Diagnosis Differential Diagnoses: The differential diagnosis associated with the presentation includes ( chronic lung disease, pneumonia, influenza, RSV, viral illness, UTI) Lab Data [facility] Lab Attestation statement: I reviewed the patient's lab results. 08/27/24 17:50 08/27/24 17:50 Labs: Lab Results 08/27/24 08/27/24 Range/Units 17:50 23:06 WBC 12.8 H (4.8-10.8) X10*3/uL RBC 4.59 (4.20-5.50) X10*6/uL Hgb 12.1 (12.0-16.0) g/dl Hct 38.8 (37.0-47.0) % MCV 84.5 (80.0-98.0) fL MCH 26.4 L (27.0-33.0) pg MCHC 31.2 (31.0-35.0) g/dl RDW 18.1 H (11.0-16.0) % Plt Count 262 (160-400) X10*3/uL MPV 9.6 (9.4-12.3) fL Immature Gran % (Auto) 0.5 H (0.0-0.4) % Neut % (Auto) 77.5 H (45-73) % Lymph % (Auto) 15.4 L (20-40) % [place] % (Auto) 5.7 (2-11) % Eos % (Auto) 0.6 (0-4) % Baso % (Auto) 0.3 (0-2) % Lymph # (Auto) 2.0 (1.2-4.9) X10*3/uL [place] # (Auto) 0.7 (0.1-1.2) X10*3/uL Eos # (Auto) 0.1 (0.0-0.4) X10*3/uL Baso # (Auto) 0.0 (0.0-0.2) X10*3/uL Abs Immat Gran (auto) 0.06 H (0.00-0.03) X10*3/uL Absolute Neuts (auto) 9.9 H (2.0-8.3) x10*3/uL Absolute Nucleated RBC 0.000 (0.0-0.012) X10*3/uL Nucleated RBC % (auto) 0.0 (0.0-0.2) /100WBC PT 11.0 (10.9-12.4) SEC INR 0.9 (0.9-1.1) Sodium 141 (135-145) mmol/L Potassium 3.4 D (3.3-5.1) mmol/L Chloride 104 (96-108) mmol/L Carbon Dioxide 29 (22-29) mmol/L Anion Gap 11 L (12-20) BUN 6 L (9-16) mg/dL Creatinine 0.48 L (0.5-1.4) mg/dL Estim Creat Clear Calc 81.9 Estimated GFR > 60 Random Glucose 160 H (60-115) mg/dL Calcium 9.7 (8.4-10.2) mg/dL Magnesium 1.8 (1.6-2.6) mg/dL Total Bilirubin 0.3 (0.0-1.0) mg/dL AST 11 (5-31) U/L ALT 9 (0-31) U/L Alkaline Phosphatase 84 (39-117) U/L Troponin I High Sens 6.9 (<3.5-17.0) ng/L Total Protein 6.6 (6.5-8.0) g/dL Albumin 3.9 (3.5-5.0) g/dL Lipase 12 (8-78) U/L Urine Color Dark Yellow Urine Appearance Cloudy Urine pH 6.0 (5.0-9.0) Ur Specific [place] >= 1.030 H (1.005-1.025) Urine Protein Trace (Neg-Trace) mg/dL Urine Glucose (UA) >=1000 H (Negative) mg/dL Urine Ketones Trace (Negative) mg/dL Urine Blood Negative (Negative) Urine Nitrite Negative (Negative) Ur Leukocyte Esterase Negative (Negative) Influenza Type A (PCR) NEGATIVE (Negative) Influenza Type B (PCR) NEGATIVE (Negative) RSV RNA Qual (PCR) NEGATIVE (Negative) SARS-CoV-2 RNA (RT-PCR) NEGATIVE (Negative) Independent Interpretation I performed an independent interpretation of an: Plain X-Ray Interpretation: New right basilar opacity concerning for pneumonia. No pleural effusion or pneumothorax. Normal size heart. Aortic atherosclerosis. No acute fracture. IMPRESSION: 1. Right basilar opacity concerning for pneumonia, new since prior study. Discharge Plan Discharge Clinical Impression: Pneumonia Patient Disposition: Home, Self-Care Instructions: Pneumonia (ED) Additional Instructions: Please follow-up with your primary care physician tomorrow. If you have any worsening or new symptoms, please return to the emergency room or call 911 Prescriptions: New azithromycin 250 mg tablet 250 mg PO DAILY 4 Days Qty: 4 0RF Rx Instructions: start on day 2 of therapy doxycycline monohydrate 100 mg capsule 100 mg PO BID Qty: 10 0RF prednisone 50 mg tablet 50 mg PO DAILY Qty: 4 0RF No Action (DME) lancets [FreeStyle Lancets] 28 gauge misc See Rx Instructions .Route Qty: 100 5RF Rx Instructions: As directed twice a day AC (DME) FreeStyle Lite Strips Strip See Rx Instructions .Route Qty: 100 0RF Rx Instructions: check fasting blood sugar twice a day before meals (DME) FreeStyle Cristian 2 Sensor Kit See Rx Instructions .Route Qty: 6 3RF Rx Instructions: Test blood sugar 4 times per day (DME) FreeStyle Cristian 2 Palisade Misc See Rx Instructions .Route Qty: 1 0RF Rx Instructions: test blood sugar 4 times per day gabapentin 800 mg tablet 800 mg PO TID 30 Days Qty: 90 6RF rosuvastatin 5 mg tablet 5 mg PO DAILY Qty: 90 1RF losartan 50 mg tablet 50 mg PO DAILY Qty: 90 1RF amlodipine 5 mg tablet 5 mg PO DAILY Qty: 90 1RF cholecalciferol (vitamin D3) 50 mcg (2,000 unit) capsule 50 mcg PO DAILY Qty: 90 1RF baclofen 10 mg tablet 10 mg PO TID 30 Days Qty: 90 6RF psyllium husk [Fiber Laxative (psyllium husk)] 0.52 gram capsule 1.04 g PO BID metformin 1,000 mg tablet 1,000 mg PO BID azithromycin 250 mg tablet 250 mg PO DAILY 4 Days Qty: 4 0RF Rx Instructions: start on day 2 of therapy acetaminophen 650 mg Tablet Extended Release 650 mg PO TID PRN (Reason: Pain) ferrous sulfate 324 mg (65 mg iron) tablet,delayed release (DR/EC) 324 mg PO DAILY magnesium oxide 400 mg (241.3 mg magnesium) Tablet 400 mg PO DAILY Qty: 7 0RF simethicone [Anti-Gas Ultra Strength] 180 mg capsule 180 mg PO QID famotidine 40 mg tablet 40 mg PO BEDTIME varenicline 1 mg tablet 1 mg PO BID Januvia 100 mg tablet 100 mg PO DAILY Anoro Ellipta 62.5-25 mcg/actuation blister with device 1 ea INHALATION DAILY Arnuity Ellipta 200 mcg/actuation blister with device 1 inh inhalation DAILY nicotine 14 mg/24 hr patch 24 hour 1 patch topical DAILY methocarbamol 500 mg Tablet 500 mg PO TID PRN (Reason: Muscle Spasm) Qty: 30 0RF benzonatate 100 mg Capsule 100 mg PO TID PRN (Reason: cough) Qty: 30 0RF guaifenesin [Mucinex] 600 mg Tablet Extended Release 12hr 600 mg PO BID Qty: 20 0RF prednisone 10 mg tablet See Taper PO DIRECTED Qty: 30 0RF Taper: Prednisone 40 mg daily for 3 Days and 0 Hour 30 mg daily for 3 Days and 0 Hour 20 mg daily for 3 Days and 0 Hour 10 mg daily for 3 Days and 0 Hour Rx Instructions: see taper instructions aspirin [Adult Low Dose Aspirin] 81 mg tablet,delayed release (DR/EC) 81 mg PO BEDTIME (DME) blood-glucose meter [FreeStyle Lite Meter] Kit See Rx Instructions .Route Qty: 1 0RF Rx Instructions: As directed twice a day before meals Linzess 72 mcg capsule 72 mcg PO DAILY metoclopramide HCl [Reglan] 10 mg tablet 20 mg PO TIDWMEAL Qty: 180 6RF ipratropium-albuterol 0.5 mg-3 mg(2.5 mg base)/3 mL solution for nebulization 3 ml inhalation Q6H 30 Days Qty: 180 1RF pantoprazole 40 mg tablet,delayed release (DR/EC) 40 mg PO BID Qty: 180 1RF Rx Instructions: take in am , 1 hour before food or medicine intake Print Language: [place]
--- NOTE | 2024-08-27 17:34 | ECG_ITS ---
Test Reason : SOB Blood Pressure : */* mmHG Vent. Rate : 89 BPM Atrial Rate : 89 BPM P-R Int : 120 ms QRS Dur : 74 ms QT Int : 364 ms P-R-T Axes : 67 85 83 degrees QTcB Int : 442 ms Normal sinus rhythm Nonspecific ST and T wave abnormality Abnormal ECG When compared with ECG of 17-Aug-2024 13:17, Nonspecific T wave abnormality no longer evident in Inferior leads Referred By: Beba Freitas Electronically Signed By: Allen Gant
[2024-08-27 17:55] LABS: MANUAL DIFF FLAG NO
[2024-08-27 18:02] LABS: Basophils Percent Auto 0.3 % (0-2); Eosinophils Absolute Auto 0.1 X10*3/uL (0.0-0.4); Eosinophils Percent Auto 0.6 % (0-4); Hematocrit 38.8 % (37.0-47.0); Hemoglobin 12.1 g/dl (12.0-16.0); Imm Gran Abs Auto 0.06 X10*3/uL (0.00-0.03); Imm Gran Pct Auto 0.5 % (0.0-0.4); Lymphocytes Percent Auto 15.4 % (20-40); Mean Corpuscular HGB Conc 31.2 g/dl (31.0-35.0); Mean Corpuscular Hemoglobin 26.4 pg (27.0-33.0); Mean Corpuscular Volume 84.5 fL (80.0-98.0); Mean Platelet Volume 9.6 fL (9.4-12.3); Monocytes Absolute Auto 0.7 X10*3/uL (0.1-1.2); Monocytes Percent Auto 5.7 % (2-11); Neutrophils Absolute Auto 9.9 x10*3/uL (2.0-8.3); Neutrophils Percent Auto 77.5 % (45-73); Platelet Count 262 X10*3/uL (160-400); Red Blood Count 4.59 X10*6/uL (4.20-5.50); Red Cell Distribution Width 18.1 % (11.0-16.0); White Blood Count 12.8 X10*3/uL (4.8-10.8)
[2024-08-27 18:16] LABS: Alanine Aminotransferase 9 U/L (0-31); Albumin Level 3.9 g/dL (3.5-5.0); Alkaline Phosphatase 84 U/L (39-117); Anion Gap 11 (12-20); Aspartate Amino Transferase 11 U/L (5-31); Bilirubin Total 0.3 mg/dL (0.0-1.0); Blood Urea Nitrogen 6 mg/dL (9-16); Calcium 9.7 mg/dL (8.4-10.2); Carbon Dioxide 29 mmol/L (22-29); Chloride 104 mmol/L (96-108); Creatinine Clr Calc Pharmacy 81.9; Estimated Glomerular Filt Rate > 60; Glucose Random 160 mg/dL (60-115); Lipase 12 U/L (8-78); Magnesium 1.8 mg/dL (1.6-2.6); Potassium 3.4 mmol/L (3.3-5.1); Sodium 141 mmol/L (135-145); Total Protein 6.6 g/dL (6.5-8.0)
[2024-08-27 18:22] LABS: INTERNATIONAL NORM RATIO 0.9 (0.9-1.1)
[2024-08-27 18:24] LABS: Troponin-I High Sensitivity 6.9 ng/L (<3.5-17.0)
[2024-08-27 18:49] LABS: Influenza A PCR NEGATIVE (Negative); Influenza B PCR NEGATIVE (Negative); Resp Syncy Virus RNA Qual PCR NEGATIVE (Negative); SARS COV2 PCR INHOUSE NEGATIVE (Negative)
[2024-08-27 20:07] VITALS: BP 133/67; PULSE 90; RESP 18; TEMP 37; O2SAT 94
[2024-08-27 21:52] VITALS: BP 124/51; PULSE 75; RESP 19; TEMP 37; O2SAT 94
[2024-08-27 23:22] LABS: Appearance Urine Cloudy; Color Urine Dark Yellow; Glucose Urine UA >=1000 mg/dL (Negative); Leukocyte Esterase Urine Negative (Negative); Nitrite Urine Negative (Negative); Specific Gravity - Urine >= 1.030 (1.005-1.025); UMIC TRIGGER UACC YES; Urine Blood Negative (Negative); Urine Ketones Trace mg/dL (Negative); Urine Protein Trace mg/dL (Neg-Trace)
[2024-08-27 23:29] LABS: Bacteria Urine 1+ (None Seen); WBC Urine 0-5 /HPF (0-5)
[2024-08-27] MEDS: predniSONE 10 MG TABLET 50 MG PO (23:40)
[2024-08-27] MEDS: Azithromycin 500 MG TABLET PO (23:40)
[2024-08-27] MEDS: Doxycycline Monohydrate 100 MG CAPSULE PO (23:40)
[2024-08-28 04:19] LABS: B Type Natriuretic Peptide < 10 pg/mL (<100)
== END 2024-08-28 05:43 | disposition home or self-care (01) ==
PROVIDERS: Nurse Practitioner Family; Emergency Provider Emergency Medicine; PCP Internal Medicine
DX: J18.9 Pneumonia, unspecified organism (principal); R06.02 Shortness of breath; R05.9 Cough, unspecified; J44.9 Chronic obstructive pulmonary disease, unspecified; R94.31 Abnormal electrocardiogram [ECG] [EKG]; F17.210 Nicotine dependence, cigarettes, uncomplicated; Z03.818 Encounter for observation for suspected exposure to other biological agents ruled out; Z99.81 Dependence on supplemental oxygen; Z79.899 Other long term (current) drug therapy
CPT/HCPCS: 0241U; 71046; 80053; 81001; 83690; 83735; 83880; 84484; 85025; 85610; 93005; 99284

== ENCOUNTER → 2024-08-27 17:34 | Outpatient (BNV) | payer OTHER, SELFPAY | PROVIDERS: PCP Internal Medicine; Visit Provider Radiology Diagnostic Radiology | DX: J18.9 Pneumonia, unspecified organism (principal) | CPT/HCPCS: 71046 ==

== ENCOUNTER → 2024-08-27 17:34 | Outpatient (BNV) | payer OTHER, SELFPAY | PROVIDERS: Emergency Provider Emergency Medicine; PCP Internal Medicine; Visit Provider Internal Medicine Cardiovascular Disease | DX: R94.31 Abnormal electrocardiogram [ECG] [EKG] (principal) | CPT/HCPCS: 93010 ==

== ENCOUNTER 2024-08-31 15:30 | Emergency (ER) | payer OTHER, SELFPAY ==
[2024-08-31 16:12] VITALS: BP 111/44; PULSE 87; RESP 18; TEMP 36.8; O2SAT 97; BMI 24.7
--- NOTE | 2024-08-31 16:16 | ED.ABDPAIN ---
HPI - Abdominal Pain General Chief Complaint: Abdominal Pain Stated Complaint: stomach issues Time Seen by Provider: 08/31/24 20:58 Source: patient Mode of arrival: ambulatory Limitations: no limitations History of Present Illness ED Provider: Dr. Enmanuel Henderson HPI narrative: 64-year-old female with a history of COPD, gastritis, diabetes, gastroparesis, hypertension, DJD, hyperlipidemia who presents emergency department for evaluation of abdominal pain. Patient states she gets daily abdominal pain for months. She points to her epigastric area when asked to localize the pain. She states the pain is a dull pain but can not characterize how long the pain lasts during the day. The pain is sometimes worse after eating. She had associated nausea with no vomiting. She denied fever or chills. She states that her pain was worse today so she came to the emergency department for evaluation. At the time my evaluation her pain was completely resolved. Patient was recently seen on 08/27/2024 and diagnosed with pneumonia and treated with the azithromycin and doxycycline. She was also started on prednisone. She states she was had no difficulty taking these medications. Patient was been seen in the past for her abdominal pain as well and had a CT scan on 08/08/2024 which did reveal a 2.5 cm right kidney mass. The patient states she has seen provider, has been worked up and is scheduled to have her kidney ?frozen?. Related Data Home Medications ?Medication ?Instructions ?Recorded ?Confirmed aspirin 81 mg tablet,delayed 81 mg PO BEDTIME 01/10/21 08/23/24 release (Adult Low Dose Aspirin) psyllium husk 0.52 gram capsule 1.04 g PO BID Constipation 02/28/24 08/23/24 (Fiber Laxative (psyllium husk)) metformin 1,000 mg tablet 1,000 mg PO BID 05/06/24 08/23/24 acetaminophen 650 mg 650 mg PO TID PRN Pain 05/30/24 08/23/24 tablet,extended release ferrous sulfate 324 mg (65 mg 324 mg PO DAILY 05/30/24 08/23/24 iron) tablet,delayed release linaclotide 72 mcg capsule 72 mcg PO DAILY 07/12/24 08/23/24 (Linzess) famotidine 40 mg tablet 40 mg PO BEDTIME 07/26/24 08/23/24 fluticasone furoate 200 1 inh inhalation DAILY 07/26/24 08/23/24 mcg/actuation blister powder for inhalation (Arnuity Ellipta) simethicone 180 mg capsule 180 mg PO QID 07/26/24 08/23/24 (Anti-Gas Ultra Strength) sitagliptin phosphate 100 mg 100 mg PO DAILY 07/26/24 08/23/24 tablet (Januvia) umeclidinium 62.5 mcg-vilanterol 1 ea inhalation DAILY 07/26/24 08/23/24 25 mcg/actuation powdr for inhalation (Anoro Ellipta) varenicline 1 mg tablet 1 mg PO BID 07/26/24 08/23/24 nicotine 14 mg/24 hr daily 1 patch topical DAILY 08/11/24 08/23/24 transdermal patch Previous Rx's ?Medication ?Instructions ?Recorded blood-glucose meter (FreeStyle #1 ea 10/03/21 Lite Meter kit) lancets 28 gauge (FreeStyle #100 ea 01/06/22 Lancets) FreeStyle Lite Strips (blood sugar #100 ea 03/10/22 diagnostic) flash glucose sensor (FreeStyle #6 ea 02/19/23 Cristian 2 Sensor kit) flash glucose scanning reader #1 ea 03/26/23 (FreeStyle Cristian 2 Hooker) gabapentin 800 mg tablet 800 mg PO TID 30 days #90 tabs 01/26/24 magnesium oxide 400 mg (241.3 mg 400 mg PO DAILY #7 tabs 06/01/24 magnesium) tablet ipratropium 0.5 mg-albuterol 3 mg 3 ml inhalation Q6H wheezing 1 06/21/24 (2.5 mg base)/3 mL nebulization month #180 mL soln losartan 50 mg tablet 50 mg PO DAILY #90 tabs 07/11/24 rosuvastatin 5 mg tablet 5 mg PO DAILY #90 tabs 07/11/24 metoclopramide HCl 10 mg tablet 20 mg (2 x 10 mg) PO TIDWMEAL #180 07/12/24 (Reglan) tabs amlodipine 5 mg tablet 5 mg PO DAILY #90 tabs 07/21/24 cholecalciferol (vitamin D3) 50 50 mcg PO DAILY #90 caps 07/21/24 mcg (2,000 unit) capsule benzonatate 100 mg capsule 100 mg PO TID PRN cough #30 caps 08/13/24 guaifenesin 600 mg tablet, 600 mg PO BID #20 tabs 08/13/24 extended release 12 hr (Mucinex) methocarbamol 500 mg tablet 500 mg PO TID PRN Muscle Spasm #30 08/13/24 tabs prednisone 10 mg tablet See Taper PO DIRECTED #30 tabs 08/13/24 azithromycin 250 mg tablet 250 mg PO DAILY 4 days #4 tabs 08/17/24 pantoprazole 40 mg tablet,delayed 40 mg PO BID #180 tabs 08/18/24 release baclofen 10 mg tablet 10 mg PO TID 30 days #90 tabs 08/24/24 azithromycin 250 mg tablet 250 mg PO DAILY 4 days #4 tabs 08/27/24 doxycycline monohydrate 100 mg 100 mg PO BID #10 caps 08/27/24 capsule prednisone 50 mg tablet 50 mg PO DAILY #4 tabs 08/27/24 aluminum hydrox-magnesium carb 254 10 ml PO QID PRN dyspepsia #355 mL 08/31/24 mg-237.5 mg/5 mL oral suspension (Gaviscon Extra Strength) Allergies Allergy/AdvReac Type Severity Reaction Status Date / Time amoxicillin [AMOXICILLIN] Allergy Intermediate RASH Verified 08/31/24 16:14 Review of Systems Review of Systems Yes all other systems are reviewed and are negative [facility] Past Medical History Medical History COPD mixed type Gastritis Gastroparesis COPD (chronic obstructive pulmonary disease) Shortness of breath Hypochromic anemia Type 2 diabetes mellitus without complication, with no history of insulin use Heavy cigarette smoker Diabetic gastroparesis COPD (chronic obstructive pulmonary disease) Mixed dyslipidemia Essential hypertension GERD (gastroesophageal reflux disease) Diastolic CHF with preserved left ventricular function, NYHA class 2 Chronic hypercapnic respiratory failure Type 2 diabetes mellitus with other diabetic kidney complication Type 2 diabetes mellitus without complication, with no history of insulin use Smoker unmotivated to quit Postlaminectomy syndrome of cervical region Seasonal allergic rhinitis Degenerative disc disease, cervical Postmenopause Dyslipidemia Surgical History H/O cervical discectomy History of esophagogastroduodenoscopy (EGD) Hx of colonoscopy Family History Family History Mother Diabetes Sister Diabetes Mental health disorder Brother Diabetes Father HTN (hypertension) Social History Social History Household Members: Significant Other Housing: Apartment Housing Other:: mobile home Do you presently have visiting nurse or other home services: Yes (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 [employer] services) Alcohol intake: never Comment: Commode/ Hi Flow O2 Patient Tobacco Use Status: Current everyday Tobacco user Tobacco use type: Cigarette Cigarette Packs Per Day: 0.5 Years Smoked: 50 Smoked in Last 30 Days: Yes e-Cigarette/Vaping Use: Never Used Second Hand Smoke Exposure: Yes Use of substances other than those prescribed or required for medical reasons: No Advance Directives: Yes Advance Directives on File: Yes Advance Directives Date on File: 08/02/23 Do you have a plan to hurt others: No Plan Patient : No service: No Current occupational status: unemployed and disabled Gender identity: Female Cognitive needs: No Hearing needs: No Vision needs: Yes Physical Exam ED Vital Signs: Vital Signs - 24 hr 08/31/24 16:12 08/31/24 21:03 Temperature 98.2 F 98.9 F Pulse Rate 87 84 Respiratory Rate 18 18 Blood Pressure 111/44 L 125/55 L Pulse Oximetry 97 96 Oxygen Delivery Method Room Air Nasal Cannula Oxygen Flow Rate 2 BMI result Body Mass Index 24.7 Vital signs were normal Exam: General: Awake, alert in no distress Head: Normocephalic, atraumatic EENT: PERRL, Lids normal, sclera normal, conjunctiva normal, nose normal , ears normal, throat without erythema or exudates Neck: Supple, no adenopathy Lung: breath sounds symmetric, no wheezing, rales or rhonchi Chest: symmetric movement, nontender Heart: regular rate and rhythm, normal S1, S2 no murmurs or rubs Abdomen: soft, non-tender, nondistended, normal bowel sounds Back: no vertebral tenderness, no CVAT Extremities: no deformities, moves all extremities symmetrically Neuro: Awake, alert, oriented, normal speech, cranial nerves intact, moves all extremities symmetrically Psych: Pleasant, cooperative Course Course Course Narrative: This is an RME: Additional HPI, ROS, PE not included below will be deferred to primary provider. RME assessment and note performed by: Gena Mcgarry PA-C This is a [id number] who presents to the ER with complaints of abdominal pain x months. Reporting mid upper abdominal pain, with nausea, no vomiting or diarrhea. Patient well-appearing, under no acute distress. Plan: labs, further ER eval needed Received critical mag of 1.4, informed charge nurse to bring patient back [facility] Medical Decision Making Medical Decision Making [facility] Narrative: 64-year-old female with a history of COPD, gastritis, diabetes, gastroparesis, hypertension, DJD, hyperlipidemia who presents emergency department for evaluation of abdominal pain. Patient states she gets daily abdominal pain for months, pain is epigastric, dull, intermittent, present daily associated with nausea but no other symptoms. Occasionally worse after eating. Vital signs were normal. Physical examination revealed no abdominal tenderness Differential diagnosis: ?Includes but is not limited to gastritis, GERD, pancreatitis, diverticulitis Course: My interpretation patient's laboratory evaluation is as follows: WBC elevated 13,300 with a left shift 90% neutrophils. H&H was normal. Glucose was elevated 374-she does have diabetes. The patient's LFTs were normal. Lipase was not elevated here troponin was detectable but not elevated 3.2. Magnesium was slightly low 1.4. Patient had a CT scan on 08/08/2024 which did not reveal a cause for your pain but she was diagnosed with a right kidney mass and has followed up with the providers and is scheduled for a treatment later this month. The patient's pain is most likely secondary to gastritis and I did discuss this with her. She was she was taking pantoprazole and advised her to continue this medication. The patient was prescribed extra-strength Gaviscon 10 cc before meals and at bedtime to see if this improves her pain. She was given printed and verbal instructions and discharged home. Admission/Observation Consideration of admission/observation: Escalation of care including admission/observation considered (Yes) Lab Data [facility] Lab Attestation statement: I reviewed the patient's lab results. 08/31/24 18:42 08/31/24 18:42 Labs: Lab Results 08/31/24 08/31/24 Range/Units 18:42 21:06 WBC 13.5 H (4.8-10.8) X10*3/uL RBC 4.36 (4.20-5.50) X10*6/uL Hgb 11.7 L (12.0-16.0) g/dl Hct 37.8 (37.0-47.0) % MCV 86.7 (80.0-98.0) fL MCH 26.8 L (27.0-33.0) pg MCHC 31.0 (31.0-35.0) g/dl RDW 17.5 H (11.0-16.0) % Plt Count 299 (160-400) X10*3/uL MPV 9.9 (9.4-12.3) fL Immature Gran % (Auto) 1.2 H (0.0-0.4) % Neut % (Auto) 90.5 H (45-73) % Lymph % (Auto) 6.7 L (20-40) % [place] % (Auto) 1.2 L (2-11) % Eos % (Auto) 0.1 (0-4) % Baso % (Auto) 0.3 (0-2) % Lymph # (Auto) 0.9 L (1.2-4.9) X10*3/uL [place] # (Auto) 0.2 (0.1-1.2) X10*3/uL Eos # (Auto) 0.0 (0.0-0.4) X10*3/uL Baso # (Auto) 0.0 (0.0-0.2) X10*3/uL Abs Immat Gran (auto) 0.16 H (0.00-0.03) X10*3/uL Absolute Neuts (auto) 12.2 H (2.0-8.3) x10*3/uL Absolute Nucleated RBC 0.000 (0.0-0.012) X10*3/uL Nucleated RBC % (auto) 0.0 (0.0-0.2) /100WBC Smear Tech's Comments VERIFIED Sodium 138 (135-145) mmol/L Potassium 4.6 D (3.3-5.1) mmol/L Chloride 101 (96-108) mmol/L Carbon Dioxide 23 (22-29) mmol/L Anion Gap 19 (12-20) BUN 12 (9-16) mg/dL Creatinine 0.67 (0.5-1.4) mg/dL Estim Creat Clear Calc 59.4 Estimated GFR > 60 POC Glucose 381 H* (60-115) mg/dL Random Glucose 374 H* (60-115) mg/dL Calcium 10.5 H D (8.4-10.2) mg/dL Magnesium 1.4 L* (1.6-2.6) mg/dL Total Bilirubin 0.2 (0.0-1.0) mg/dL Direct Bilirubin < 0.2 (0.0-0.5) mg/dL AST 11 (5-31) U/L ALT 6 (0-31) U/L Alkaline Phosphatase 77 (39-117) U/L Troponin I High Sens 3.2 D (<3.5-17.0) ng/L Total Protein 7.0 (6.5-8.0) g/dL Albumin 3.9 (3.5-5.0) g/dL Lipase 16 (8-78) U/L Independent Interpretation I performed an independent interpretation of an: EKG Interpretation: My independent interpretation patient's 12 EKG done at 18:36 hours is as follows: Normal sinus rhythm with a rate of 85, normal KS interval, QRS duration QTC interval, no ST segment elevation, no ST segment depression, no PACs, no PVCs. Compared to EKG dated 08/27/2024 there were no acute changes. External Record Review External record reviewed: Inpatient record and Other (Previous CT scan readings and previous ultrasound readings) Prescription Management I considered prescription management with: Other (Antacid: Extra-strength Gaviscon) Chronic Conditions Patient?s care impacted by: Diabetes, Hypertension and Other (COPD) Discharge Plan Discharge Clinical Impression: Gastritis Patient Disposition: Home, Self-Care Additional Instructions: Your blood work was normal. At this time I believe that your pain is due to inflammation of your stomach (gastritis). Continue taking pantoprazole. Take extra-strength Gaviscon 10 mL (2 tsp) 4 times a day as needed for abdominal pain. Follow-up with your doctor in 2 days. Please return to the emergency department if your symptoms get worse or if you develop any symptoms that are concerning to you. Prescriptions: New Gaviscon Extra Strength 254-237.5 mg/5 mL suspension 10 ml PO QID PRN (Reason: dyspepsia) Qty: 355 0RF No Action (DME) lancets [FreeStyle Lancets] 28 gauge misc See Rx Instructions .Route Qty: 100 5RF Rx Instructions: As directed twice a day AC (DME) FreeStyle Lite Strips Strip See Rx Instructions .Route Qty: 100 0RF Rx Instructions: check fasting blood sugar twice a day before meals (DME) FreeStyle Cristian 2 Sensor Kit See Rx Instructions .Route Qty: 6 3RF Rx Instructions: Test blood sugar 4 times per day (DME) FreeStyle Cristian 2 Hooker Misc See Rx Instructions .Route Qty: 1 0RF Rx Instructions: test blood sugar 4 times per day gabapentin 800 mg tablet 800 mg PO TID 30 Days Qty: 90 6RF rosuvastatin 5 mg tablet 5 mg PO DAILY Qty: 90 1RF losartan 50 mg tablet 50 mg PO DAILY Qty: 90 1RF amlodipine 5 mg tablet 5 mg PO DAILY Qty: 90 1RF cholecalciferol (vitamin D3) 50 mcg (2,000 unit) capsule 50 mcg PO DAILY Qty: 90 1RF baclofen 10 mg tablet 10 mg PO TID 30 Days Qty: 90 6RF psyllium husk [Fiber Laxative (psyllium husk)] 0.52 gram capsule 1.04 g PO BID metformin 1,000 mg tablet 1,000 mg PO BID azithromycin 250 mg tablet 250 mg PO DAILY 4 Days Qty: 4 0RF Rx Instructions: start on day 2 of therapy azithromycin 250 mg tablet 250 mg PO DAILY 4 Days Qty: 4 0RF Rx Instructions: start on day 2 of therapy doxycycline monohydrate 100 mg capsule 100 mg PO BID Qty: 10 0RF prednisone 50 mg tablet 50 mg PO DAILY Qty: 4 0RF acetaminophen 650 mg Tablet Extended Release 650 mg PO TID PRN (Reason: Pain) ferrous sulfate 324 mg (65 mg iron) tablet,delayed release (DR/EC) 324 mg PO DAILY magnesium oxide 400 mg (241.3 mg magnesium) Tablet 400 mg PO DAILY Qty: 7 0RF simethicone [Anti-Gas Ultra Strength] 180 mg capsule 180 mg PO QID famotidine 40 mg tablet 40 mg PO BEDTIME varenicline 1 mg tablet 1 mg PO BID Januvia 100 mg tablet 100 mg PO DAILY Anoro Ellipta 62.5-25 mcg/actuation blister with device 1 ea INHALATION DAILY Arnuity Ellipta 200 mcg/actuation blister with device 1 inh inhalation DAILY nicotine 14 mg/24 hr patch 24 hour 1 patch topical DAILY methocarbamol 500 mg Tablet 500 mg PO TID PRN (Reason: Muscle Spasm) Qty: 30 0RF benzonatate 100 mg Capsule 100 mg PO TID PRN (Reason: cough) Qty: 30 0RF guaifenesin [Mucinex] 600 mg Tablet Extended Release 12hr 600 mg PO BID Qty: 20 0RF prednisone 10 mg tablet See Taper PO DIRECTED Qty: 30 0RF Taper: Prednisone 40 mg daily for 3 Days and 0 Hour 30 mg daily for 3 Days and 0 Hour 20 mg daily for 3 Days and 0 Hour 10 mg daily for 3 Days and 0 Hour Rx Instructions: see taper instructions aspirin [Adult Low Dose Aspirin] 81 mg tablet,delayed release (DR/EC) 81 mg PO BEDTIME (DME) blood-glucose meter [[employer] Lite Meter] Kit See Rx Instructions .Route Qty: 1 0RF Rx Instructions: As directed twice a day before meals Linzess 72 mcg capsule 72 mcg PO DAILY metoclopramide HCl [Reglan] 10 mg tablet 20 mg PO TIDWMEAL Qty: 180 6RF ipratropium-albuterol 0.5 mg-3 mg(2.5 mg base)/3 mL solution for nebulization 3 ml inhalation Q6H 30 Days Qty: 180 1RF pantoprazole 40 mg tablet,delayed release (DR/EC) 40 mg PO BID Qty: 180 1RF Rx Instructions: take in am , 1 hour before food or medicine intake Print Language: Icelandic
--- NOTE | 2024-08-31 18:17 | ECG_ITS ---
Test Reason : ABD PAIN Blood Pressure : */* mmHG Vent. Rate : 85 BPM Atrial Rate : 85 BPM P-R Int : 118 ms QRS Dur : 84 ms QT Int : 376 ms P-R-T Axes : 64 72 73 degrees QTcB Int : 447 ms Normal sinus rhythm Normal ECG When compared with ECG of 27-Aug-2024 17:42, No significant change was found Referred By: Gena Mcgarry Electronically Signed By: YOHAN PATEL MD
[2024-08-31 18:56] LABS: Basophils Percent Auto 0.3 % (0-2); Eosinophils Percent Auto 0.1 % (0-4); Hematocrit 37.8 % (37.0-47.0); Hemoglobin 11.7 g/dl (12.0-16.0); Imm Gran Abs Auto 0.16 X10*3/uL (0.00-0.03); Imm Gran Pct Auto 1.2 % (0.0-0.4); Lymphocytes Absolute Auto 0.9 X10*3/uL (1.2-4.9); Lymphocytes Percent Auto 6.7 % (20-40); MANUAL DIFF FLAG SCAN; Mean Corpuscular Hemoglobin 26.8 pg (27.0-33.0); Mean Corpuscular Volume 86.7 fL (80.0-98.0); Mean Platelet Volume 9.9 fL (9.4-12.3); Monocytes Absolute Auto 0.2 X10*3/uL (0.1-1.2); Monocytes Percent Auto 1.2 % (2-11); Neutrophils Absolute Auto 12.2 x10*3/uL (2.0-8.3); Neutrophils Percent Auto 90.5 % (45-73); Platelet Count 299 X10*3/uL (160-400); Red Blood Count 4.36 X10*6/uL (4.20-5.50); Red Cell Distribution Width 17.5 % (11.0-16.0); SCAN SMEAR FLAG 1; White Blood Count 13.5 X10*3/uL (4.8-10.8)
[2024-08-31 19:16] LABS: Troponin-I High Sensitivity 3.2 ng/L (<3.5-17.0)
[2024-08-31 19:22] LABS: Alanine Aminotransferase 6 U/L (0-31); Albumin Level 3.9 g/dL (3.5-5.0); Alkaline Phosphatase 77 U/L (39-117); Anion Gap 19 (12-20); Aspartate Amino Transferase 11 U/L (5-31); Bilirubin Direct < 0.2 mg/dL (0.0-0.5); Bilirubin Total 0.2 mg/dL (0.0-1.0); Blood Urea Nitrogen 12 mg/dL (9-16); Calcium 10.5 mg/dL (8.4-10.2); Carbon Dioxide 23 mmol/L (22-29); Chloride 101 mmol/L (96-108); Creatinine Clr Calc Pharmacy 59.4; Estimated Glomerular Filt Rate > 60; Glucose Random 374 mg/dL (60-115); Lipase 16 U/L (8-78); Magnesium 1.4 mg/dL (1.6-2.6); Potassium 4.6 mmol/L (3.3-5.1); Sodium 138 mmol/L (135-145)
[2024-08-31 19:37] LABS: SLIDE REVIEW VERIFIED
[2024-08-31 21:03] VITALS: BP 125/55; PULSE 84; RESP 18; TEMP 37.2; O2SAT 96
[2024-08-31 21:11] LABS: Glucose, Whole Blood 381 mg/dL (60-115)
--- NOTE | 2024-08-31 22:11 | MHC.EDTECH ---
pt was assisted to bathroom for urine output. pt ambulated with mobile O2 and a steady gait.
[2024-08-31 22:25] VITALS: BP 116/53; PULSE 91; RESP 22; TEMP 36.5; O2SAT 94
[2024-08-31 22:39] VITALS: BP 121/50; PULSE 88; RESP 23; TEMP 36.8; O2SAT 95
[2024-08-31] MEDS: Magnesium Hydrox/Alum Hydrox 30 ML ORAL.SUSP PO (22:41)
[2024-08-31 22:59] VITALS: BP 121/50; PULSE 88; RESP 23; TEMP 36.8; O2SAT 95
== END 2024-08-31 22:59 | disposition home or self-care (01) ==
PROVIDERS: Physician Assistant Medical; Emergency Provider Emergency Medicine Emergency Medical Services; PCP Internal Medicine
DX: K29.70 Gastritis, unspecified, without bleeding (principal); I10 Essential (primary) hypertension; R10.9 Unspecified abdominal pain; K21.9 Gastro-esophageal reflux disease without esophagitis; C64.9 Malignant neoplasm of unspecified kidney, except renal pelvis; J44.9 Chronic obstructive pulmonary disease, unspecified; D50.9 Iron deficiency anemia, unspecified; F17.210 Nicotine dependence, cigarettes, uncomplicated; Z79.02 Long term (current) use of antithrombotics/antiplatelets; Z79.899 Other long term (current) drug therapy
CPT/HCPCS: 36415; 80048; 80076; 82947; 83690; 83735; 84484; 85025; 93005; 99283; 99285

== ENCOUNTER → 2024-08-31 18:17 | Outpatient (BNV) | payer OTHER, SELFPAY | PROVIDERS: Emergency Provider Emergency Medicine Emergency Medical Services; PCP Internal Medicine; Visit Provider Internal Medicine Cardiovascular Disease | DX: R10.9 Unspecified abdominal pain (principal) | CPT/HCPCS: 93010 ==

== ENCOUNTER 2024-09-07 11:25 | Outpatient (AMB) | payer OTHER, SELFPAY ==
--- NOTE | 2024-09-07 11:28 | A.OFFPC_ITS ---
Vital Signs 09/07/24 11:30 Height 4 ft 9 in Weight 114 lb BMI 24.7 BP 122/64 Blood Pressure Location Rt brachial Position Sitting Pulse 97 Pulse Source Pulse Oximeter Temp 98.3 F Temp Source Oral Pulse Oximetry (%) 94 Oxygen Delivery Method Nasal Cannula Intake Visit Reasons: Hospital follow up Intake Note: Pt is here today for her HDF C Allergies amoxicillin [AMOXICILLIN] Allergy (Intermediate, Verified 09/07/24 12:07) RASH Medication List - Last Reconciled 09/07/24 by Magalie Nicolas MD acetaminophen ER 650 mg PO TID PRN aluminum hydrox-magnesium carb 254-237.5 mg/5 mL (Gaviscon Extra Strength) 10 mL PO QID PRN amlodipine 5 mg PO DAILY aspirin (Adult Low Dose Aspirin) 81 mg PO BEDTIME baclofen 10 mg PO TID 30 days benzonatate 100 mg PO TID PRN blood-glucose meter (FreeStyle Lite Meter kit) As directed twice a day before meals cholecalciferol (vitamin D3) 50 mcg PO DAILY famotidine 40 mg PO BEDTIME ferrous sulfate 324 mg PO DAILY flash glucose scanning reader (aTyr [employer]armaStyle Cristian 2 Darrow) test blood sugar 4 times per day flash glucose sensor (FreeStyle Cristian 2 Sensor kit) Test blood sugar 4 times per day FreeStyle Lite Strips (blood sugar diagnostic) check fasting blood sugar twice a day before meals NS gabapentin 800 mg PO TID 30 days ipratropium-albuterol 0.5 mg-3 mg(2.5 mg base)/3 mL 3 mL inhalation Q6H 1 month lancets (FreeStyle Lancets) As directed twice a day AC linaclotide (Linzess) 72 mcg PO DAILY losartan 50 mg PO DAILY magnesium oxide 400 mg PO DAILY metformin 1,000 mg PO BID methocarbamol 500 mg PO TID PRN metoclopramide HCl (Reglan) 20 mg (2 x 10 mg) PO TIDWMEAL nicotine 1 patch topical DAILY pantoprazole 40 mg PO BID psyllium husk (Fiber Laxative (psyllium husk)) 1.04 grams PO BID rosuvastatin 5 mg PO DAILY simethicone (Anti-Gas Ultra Strength) 180 mg PO QID sitagliptin phosphate (Januvia) 100 mg PO DAILY varenicline 1 mg PO BID Tobacco use date assessed: 09/07/24 Dental Screening Dental Screen Date: 09/07/24 [facility] Hospital follow up HPI Details 64-year-old lady with history of COPD on continuous O2 supplement at 2 L per nasal cannula, gastritis, diabetes mellitus, with gastroparesis, hypertension, degenerative joint disease, hyperlipidemia here today for follow- up after discharg from [facility] on 08/13/2024, where she was treated for acute COPD exacerbation. She was placed on a prednisone taper and discharged home with improvement in breathing. . She was seen at the ER 08/27/2024 , again complaining of shortness of breath and cough, diagnosed and treated for pneumonia with azithromycin , doxycycline, and prednisone, with improvement of symptoms after completion of treatment. She presented to the ER again on 08/31/2024, complaining of abdominal pain, felt likely to be gastritis. She was continued on pantoprazole and was prescribed extra-strength Gaviscon 10 cc before meals and at bedtime which patient states affords only temporary relief. At present patient states that her breathing is back to baseline, denies fever, wheezing , cough or worsening shortness of breath. Still getting intermittent episodes of epigastric pain with certain food intake, but denies nausea or vomiting.. Continues to smoke cigarettes despite being on varenicline, but states that she has cut down to just 5 cigarettes a day. She was found to have a right kidney mass on a CT scan done 08/08/2024 and is scheduled to have cryoablation of the inferior pole of the right kidney to be done by Interventional Radiology on 09/11/2024, under general anesthesia. Stat consult ordered for pulmonary clearance at [facility] with Dr Bert Diaz for scheduled surgery, awaiting recommendations. [facility] Medical History (Updated 09/08/24 @ 00:59 by Magalie Nicolas MD) Heavy cigarette smoker History of pneumonia COPD mixed type Hypochromic anemia Gastritis Diabetic gastroparesis Diastolic CHF with preserved left ventricular function, NYHA class 2 Chronic hypercapnic respiratory failure Mixed dyslipidemia Type 2 diabetes mellitus with other diabetic kidney complication Essential hypertension Smoker unmotivated to quit Postlaminectomy syndrome of cervical region Seasonal allergic rhinitis Degenerative disc disease, cervical Postmenopause Dyslipidemia Gastroparesis GERD (gastroesophageal reflux disease) Surgical History H/O cervical discectomy History of esophagogastroduodenoscopy (EGD) Hx of colonoscopy Family History Mother Diabetes Sister Diabetes Mental health disorder Brother Diabetes Father HTN (hypertension) Social History Household Members: Significant Other Housing: Apartment Housing Other:: mobile home Are you a primary healthcare facility administrator to a significant other at home: No Do you presently have visiting nurse or other home services: Yes ([employer]) Alcohol intake: never Comment: Commode/ Hi Flow O2 Patient Tobacco Use Status: Current everyday Tobacco user Tobacco use type: Cigarette Cigarette Packs Per Day: 0.5 Cigarettes Per Day: 10 Years Smoked: 51 Packs Per Year: 26 Packs per year/per ci.50 e-Cigarette/Vaping Use: Never Used Second Hand Smoke Exposure: Yes Advance Directives Date on File: 08/02/23 service: No Current occupational status: unemployed and disabled Gender identity: Female Cognitive needs: No Hearing needs: No Vision needs: Yes Questionnaire Thrive Questionnaire Date Thrive assessed: 06/21/24 I am a: Patient What is your living situation today?: I have a steady place to live Within the past 12 months, did the food you bought not last and you didn't have the money to get more?: Never true Within the past 12 months, did you worry whether your food would run out before you got money to buy more?: Never true Do you have trouble paying for medicines?: No Do you have trouble getting transportation to medical appointments?: No Do you have trouble paying your heating and electricity bill?: No Do you have trouble taking care of your child, family member or friend?: No Do you have trouble with day-to-day activities such as bathing, preparing meals, shopping, managing finances, etc.?: Yes Are you currently unemployed and looking for a job?: No Are you interested in more education?: No Please select the resources that you would like help with: None Currently or been in a relationship where the following occur: I choose not to answer THRIVE Score: 0 AUDIT C Alcohol Use Questionnaire (AUDIT-C) 1. How often do you have a drink containing alcohol?: Never Total Score: 0 FREDI-7 AMB Questionnaire FREDI-7 Date FREDI - 7 assessed: 09/02/22 Feeling nervous, anxious, or on edge: 0 = Not at all Not being able to stop or control worryin = Not at all Worrying too much about different things: 0 = Not at all Trouble relaxin = Not at all Being so restless that it is hard to sit still: 0 = Not at all Becoming easily annoyed or irritable: 0 = Not at all Feeling afraid as if something awful might happen: 0 = Not at all Total FREDI-7 score (0-4 normal; 5-9 mild; 10-14 moderate; 15-21 severe): 0 Source: Developed by Drs. Wiley Caballero, Sharmila Paez, Iarj Hernandez and colleagues, with an educational radha from [email or web address]. Review of Systems Const Reports fatigue, Denies fever(s), Reports malaise, Reports poor appetite, Reports weakness and Reports weight loss Eyes Reports requires corrective lenses ENT Denies dysphagia, Denies dizziness and Denies mouth pain Card Reports no additional complaints and Reports dyspnea on exertion Resp Reports chest congestion, Reports cough, Reports dyspnea on exertion and Reports wheezing GI Details: Reports as per HPI, Denies melena, Denies bloating, Denies hematochezia, Denies change in bowel habits, Denies dysphagia, Reports early satiety, Reports heartburn, Denies nausea and Denies vomiting Reports no additional complaints Musc Denies abnormal gait and Reports stiffness Skin/Breast Denies pruritus, Denies lesions and Denies rash Neuro Denies Abnormal speech present, Denies abnormal gait, Denies dizziness, Denies lack of coordination and Reports weakness Endo Reports fatigue Patel/Lymph Denies easy bleeding and Denies easy bruising Aller/Immun Reports seasonal rhinorrhea and Reports wheezing Physical exam (Primary Care) Vital Signs: Last Vital Signs Temp 98.3 F 09/07/24 11:30 Pulse 97 09/07/24 11:30 BP 122/64 09/07/24 11:30 Pulse Ox 94 09/07/24 11:30 Oxygen Delivery Method Nasal Cannula 09/07/24 11:30 BMI result Body Mass Index 24.7 Tobacco/Smoking Status: Tobacco use Status Tobacco use date assessed 09/07/24 09/07/24 11:38 Patient Tobacco Use Status Current everyday Tobacco 09/07/24 11:38 Tobacco use type Cigarette 09/07/24 11:38 e-Cigarette/Vaping Use Never Used 09/07/24 11:38 Are you ready to quit: No Tobacco cessation counseling provided: Yes Thrive Assessment: Date of Thrive Assessment Date Thrive assessed 06/21/24 09/07/24 11:38 Currently or been in a relationship where the following occur: I choose not to answer Const Other: Frail looking female, supplemental oxygen, accompanied by boyfriend Orientation/consciousness: patient oriented x3 HENWY General nose exam: Normal external nose present and No nasal discharge present Mouth: oropharynx normal and moist mucous membranes Eyes General: appearance normal, both eyes and all related structures Neck Neck: Yes full ROM, Yes no lymphadenopathy and Yes supple Resp Other: on portable O2 at 2 L/NC Effort & Inspection: normal respiratory effort and able to speak in complete sentences Auscultation: diminished lung sounds Cardio Rate: regular rate Rhythm: regular rhythm Heart sounds: S1 normal heart sound present and S2 normal heart sound present GI Other: Normal bowel sounds, soft, nontender, no mass palpated General: Yes no CVA tenderness Back/Spine/Pelvis Back: no CVA tenderness and No back tenderness Neuro General: patient oriented x3 Cognition (Neuro): normal cognition Speech: No Abnormal speech present Gait exam (Neuro): Normal gait present Extrem General: Yes no joint enlargement, Yes no pedal edema, Yes no calf tenderness and Yes normal gait Results Reviewed Results Reviewed: Laboratory Tests 07/28/24 06:26 Hemoglobin A1c % 6.4 H Name: Maria Elena Kingston Age/Sex: 64/F : 1960 Unit#: [id number] Attend Dr: Enmanuel Henderson MD Re08/31/24 Status: DEP ER Location: .ED Disch: SPEC : [id number] SEUN: 08/31/24 STATUS: COMP REQ : [id number] RECD: 08/31/[address]: Gena Mcgarry COMP: 08/31/24 ENTERED: 08/31/[address]: Magalie Nicolas MD ORDERED: Liver Panel, BMP, MG, Lip Test Result Flag Reference Sodium 138 135-145 mmol/L Potassium 4.6 # 3.3-5.1 mmol/L CL 101 96-108 mmol/L CO2 23 22-29 mmol/L Gap 19 12-20 BUN 12 9-16 mg/dL Creat 0.67 0.5-1.4 mg/dL Estimated CrCl 59.4 Provided height and weight: 144.78 cm, 51.71 kg. eGFR (calculated from the MDRD study equation) and eCrCl (calculated from the Cockcroft-Gault equation) are based on different parameters and may not yield comparable results. If eCrCl result is absurd, please check patient's height/weight. eGFR > 60 Coding Level of Care Code Est Pt Level 4 (66904) Complex EM visit Add On G2211 Diagnoses Preoperative examination Z01.818 COPD mixed type J44.9 Type 2 diabetes mellitus without complication, with no history of insulin use E11.9 Chronic gastritis without bleeding, unspecified gastritis type K29.50 Chronicity: chronic Gastritis bleeding: without bleeding Gastritis type: unspecified gastritis Degenerative disc disease, cervical M50.30 Primary hypertension I10 Hypertension type: primary hypertension Hypomagnesemia E83.42 Gastroparesis K31.84 Assessment & Plan Assessment & Plan (1) Preoperative examination: Code(s): Z01.818 - Encounter for other preprocedural examination Plan: Scheduled for cryoablation of renal mass on 09/11/2024 under general anesthesia, pulmonary clearance has been obtained. -As per Dr Bert Fleming., they are no pulmonary contraindications for the planned surgery. -ARISCAT score 28 which correlates with intermediate risk for postop pulmonary complications -Arozullah respiratory failure index (10) which correlates with low risk for postop respiratory failure. -Referral to pulmonary rehab discussed but patient refused. -advised to do early ambulation, out of bed to chair, incentive spirometry. -if possible, extubate to CPAP or BiPAP. (2) COPD mixed type: Comment: follows w/[facility] Code(s): J44.9 - Chronic obstructive pulmonary disease, unspecified Category: Medical Plan: Seen by software engineering specialist at [facility] 09/07/2024, to continue on supplemental O2 by nasal cannula at 2 L/min. Continue with Trelegy daily, started on azithromycin to prevent recurrent exacerbations, use albuterol as needed and advised to use nebulizer therapy 1-2 times daily to help with airway clearance. Patient has been strongly advised to quit smoking but not ready to quit at present time, still continues to use Chantix, has dropped to just 5 cigarettes daily. -As per Dr Bert Fleming., they are no pulmonary contraindications for the planned surgery. -ARISCAT score 28 which correlates with intermediate risk for postop pulmonary complications -Arozullah respiratory failure index (10) which correlates with low risk for postop respiratory failure. -Referral to pulmonary rehab discussed but patient refused. -advised to do early ambulation, out of bed to chair, incentive spirometry. -if possible, extubate to CPAP or BiPAP. -To follow-up with [facility] with Edilma Bess NP in six-month (3) Type 2 diabetes mellitus without complication, with no history of insulin use: Code(s): E11.9 - Type 2 diabetes mellitus without complications Category: Medical Plan: Currently on metformin a 1000 mg 1 tablet twice a day and Januvia 100 mg once a day, with latest hemoglobin A1c on 07/28/2024 at 6.4% (4) Gastritis: Code(s): K29.70 - Gastritis, unspecified, without bleeding Category: Medical Qualifiers: Chronicity: chronic Gastritis bleeding: without bleeding Gastritis type: unspecified gastritis Qualified Code(s): K29.50 - Unspecified chronic gastritis without bleeding Plan: Continue pantoprazole and Gaviscon extra-strength and simethicone (5) Degenerative disc disease, cervical: Code(s): M50.30 - Other cervical disc degeneration, unspecified cervical region Category: Medical Plan: Takes gabapentin 800 mg 1 tablet 3 times a day with meals (6) Hypertension: Code(s): I10 - Essential (primary) hypertension Category: Medical Qualifiers: Hypertension type: primary hypertension Qualified Code(s): I10 - Essential (primary) hypertension Plan: Blood pressure controlled on losartan 50 mg 1 tablet daily and amlodipine 5 mg once a day (7) Hypomagnesemia: Code(s): E83.42 - Hypomagnesemia Category: Medical Plan: Currently on magnesium oxide 400 mg once a day (8) Gastroparesis: Code(s): K31.84 - Gastroparesis Category: Medical Plan: On metoclopramide 20 mg 1 tablet 3 times a day with meals
[2024-09-07 11:30] VITALS: BP 122/64; PULSE 97; TEMP 36.8; O2SAT 94; BMI 24.7
== END 2024-09-07 12:30 | disposition home or self-care (01) ==
PROVIDERS: PCP Internal Medicine; Visit Provider Internal Medicine
DX: E11.43 Type 2 diabetes mellitus with diabetic autonomic (poly)neuropathy (principal); J44.9 Chronic obstructive pulmonary disease, unspecified; Z01.818 Encounter for other preprocedural examination; K31.84 Gastroparesis; K29.50 Unspecified chronic gastritis without bleeding; M50.30 Other cervical disc degeneration, unspecified cervical region; I10 Essential (primary) hypertension; E83.42 Hypomagnesemia

== ENCOUNTER → 2024-09-07 11:25 | Outpatient (BNVA) | payer OTHER, SELFPAY | PROVIDERS: PCP Internal Medicine; Visit Provider Internal Medicine | DX: Z01.818 Encounter for other preprocedural examination (principal); J44.9 Chronic obstructive pulmonary disease, unspecified; E11.9 Type 2 diabetes mellitus without complications; M50.30 Other cervical disc degeneration, unspecified cervical region; I10 Essential (primary) hypertension; E83.42 Hypomagnesemia; K31.84 Gastroparesis | CPT/HCPCS: 99212 ==

== ENCOUNTER 2024-09-11 11:36 | Day surgery (SDC) | payer OTHER, SELFPAY ==
[2024-09-05 11:06] VITALS: BMI 23.6
--- NOTE | 2024-09-08 08:48 | P.CONAN_ITS ---
Documented by User: Roberta Mullen NP 09/08/24 08:52 HPI - Anesthesia Eval Consult details Narrative: 64yo F for Right Kidney Cryo-Ablation Hold 4 Hrs Pulmo optimized. Follows [facility] pulmo: COPD/Active smoker[place] [facility] [place] with COPD exac. Abx and prednisone. Now back to baseline. Continuous O2 @ 2L. Anesthesia Pre-Procedure Meds Is the patient on any of the following meds?: GLP1/DPP4 PMFSH Active Problems Active Problems: All Active Problems Smoker unmotivated to quit (Acute) Weight loss (Acute) Hypertension (Acute) Hypomagnesemia (Acute) Hypoxia (Acute) Renal cell carcinoma (Acute) Type 2 diabetes mellitus without complication, with no history of insulin use (Acute) Chronic idiopathic constipation (Acute) COPD mixed type (Acute) Gastritis (Acute) Gastroparesis (Acute) Hypochromic anemia (Acute) GERD (gastroesophageal reflux disease) (Acute) Degenerative disc disease, cervical (Acute) Postmenopause (Acute) Past Medical History Medical History Heavy cigarette smoker History of pneumonia COPD mixed type Hypochromic anemia Gastritis Diabetic gastroparesis Diastolic CHF with preserved left ventricular function, NYHA class 2 Chronic hypercapnic respiratory failure Mixed dyslipidemia Type 2 diabetes mellitus with other diabetic kidney complication Essential hypertension Smoker unmotivated to quit Postlaminectomy syndrome of cervical region Seasonal allergic rhinitis Degenerative disc disease, cervical Postmenopause Dyslipidemia Gastroparesis GERD (gastroesophageal reflux disease) Family History Family History Mother Diabetes Sister Diabetes Mental health disorder Brother Diabetes Father HTN (hypertension) Surgical History Surgical History H/O cervical discectomy History of esophagogastroduodenoscopy (EGD) Hx of colonoscopy Social History Social History Household Members: Significant Other Housing: Apartment Housing Other:: mobile home Are you a primary disabilities caregiver to a significant other at home: No Do you presently have visiting nurse or other home services: Yes ([employer]) Alcohol intake: never Comment: Commode/ Hi Flow O2 Patient Tobacco Use Status: Current everyday Tobacco user Tobacco use type: Cigarette Cigarette Packs Per Day: 0.5 Cigarettes Per Day: 10 Years Smoked: 51 e-Cigarette/Vaping Use: Never Used Second Hand Smoke Exposure: Yes Use of substances other than those prescribed or required for medical reasons: No Have you been hit, kicked, punched, or otherwise hurt by someone within the past year? If so, by whom?: No Spiritual Healthcare Practices: none Mandaeism Healthcare Practices: [employer] Cultural Healthcare Practices: none Are you DNR?: No Advance Directives: Yes (HCP) Advance Directives Information Provided: Yes Advance Directives on File: Yes Advance Directives Date on File: 08/02/23 Recently lost weight without trying: No Eating poorly because of decreased appetite: No Nutrition Risks: No Nutritional Risk FDLMP: n/a Poor oral hygiene: No (some missing teeth) service: No Current occupational status: unemployed and disabled Gender identity: Female Cognitive needs: No Hearing needs: No Vision needs: Yes Meds Allergies Allergy/AdvReac Type Severity Reaction Status Date / Time amoxicillin [AMOXICILLIN] Allergy Intermediate RASH Verified 09/07/24 12:07 Home Medications ?Medication ?Instructions ?Recorded ?Confirmed ?Last Taken ?Type aspirin 81 mg tablet,delayed 81 mg PO BEDTIME 01/10/21 09/07/24 08/10/24 History release (Adult Low Dose Aspirin) psyllium husk 0.52 gram capsule 1.04 g PO BID Constipation 02/28/24 09/07/24 08/10/24 History (Fiber Laxative (psyllium husk)) metformin 1,000 mg tablet 1,000 mg PO BID 05/06/24 09/07/24 08/10/24 History acetaminophen 650 mg 650 mg PO TID PRN Pain 05/30/24 09/07/24 08/10/24 History tablet,extended release ferrous sulfate 324 mg (65 mg 324 mg PO DAILY 05/30/24 09/07/24 08/10/24 History iron) tablet,delayed release linaclotide 72 mcg capsule 72 mcg PO DAILY 07/12/24 09/07/24 08/10/24 History (Linzess) famotidine 40 mg tablet 40 mg PO BEDTIME 07/26/24 09/07/24 08/10/24 History simethicone 180 mg capsule 180 mg PO QID 07/26/24 09/07/24 08/10/24 History (Anti-Gas Ultra Strength) sitagliptin phosphate 100 mg 100 mg PO DAILY 07/26/24 09/07/24 08/10/24 History tablet (Januvia) varenicline 1 mg tablet 1 mg PO BID 07/26/24 09/07/24 08/10/24 History nicotine 14 mg/24 hr daily 1 patch topical DAILY 08/11/24 09/07/24 08/10/24 History transdermal patch Exam Height,Weight and Vital Signs: Height 4 ft 9 in Weight 49.442 kg Pertinent Lab Results Pertinent Lab Results: Laboratory Tests 08/31/24 18:42 WBC 13.5 H Hgb 11.7 L Hct 37.8 Plt Count 299 Sodium 138 Potassium 4.6 D Chloride 101 Carbon Dioxide 23 BUN 12 Creatinine 0.67 Narrative Narrative: EKG 08/2024 Vent. Rate : 85 BPM Atrial Rate : 85 BPM P-R Int : 118 ms QRS Dur : 84 ms QT Int : 376 ms P-R-T Axes : 64 72 73 degrees QTcB Int : 447 ms Normal sinus rhythm Normal ECG When compared with ECG of 27-Aug-2024 17:42, No significant change was found ECHO 2022 Conclusions: - The left ventricular systolic function is mildly decreased. The calculated ejection fraction is 48% by biplane method. Findings Left Ventricle Normal left ventricular cavity size. There is mildly increased left ventricular wall thickness. The left ventricular systolic function is mildly decreased. The calculated ejection fraction is 48% by biplane method. There is mild global hypokinesis. Evidence suggests grade I (mild) diastolic dysfunction. Assessment and Plan Assessment Anesthesia Assessment: Chart Reviewed Documented by User: Parul Pleitez MD 09/11/24 14:26 PMFSH Past Medical History Medical History Heavy cigarette smoker History of pneumonia COPD mixed type Hypochromic anemia Gastritis Diabetic gastroparesis Diastolic CHF with preserved left ventricular function, NYHA class 2 Chronic hypercapnic respiratory failure Mixed dyslipidemia Type 2 diabetes mellitus with other diabetic kidney complication Essential hypertension Smoker unmotivated to quit Postlaminectomy syndrome of cervical region Seasonal allergic rhinitis Degenerative disc disease, cervical Postmenopause Dyslipidemia Gastroparesis GERD (gastroesophageal reflux disease) Family History Family History Mother Diabetes Sister Diabetes Mental health disorder Brother Diabetes Father HTN (hypertension) Family history of problems with anesthesia: No Surgical History Surgical History H/O cervical discectomy History of esophagogastroduodenoscopy (EGD) Hx of colonoscopy History of Problems with Anesthesia: No Social History Social History Household Members: Significant Other Housing: Apartment Housing Other:: mobile home Are you a primary disabilities caregiver to a significant other at home: No Do you presently have visiting nurse or other home services: Yes ([employer]) Alcohol intake: never Comment: Commode/ Hi Flow O2 Patient Tobacco Use Status: Current everyday Tobacco user Tobacco use type: Cigarette Cigarette Packs Per Day: 0.5 Cigarettes Per Day: 10 Years Smoked: 51 e-Cigarette/Vaping Use: Never Used Second Hand Smoke Exposure: Yes Use of substances other than those prescribed or required for medical reasons: No Have you been hit, kicked, punched, or otherwise hurt by someone within the past year? If so, by whom?: No Spiritual Healthcare Practices: none Mandaeism Healthcare Practices: [employer] Cultural Healthcare Practices: none Are you DNR?: No Advance Directives: Yes (HCP) Advance Directives Information Provided: Yes Advance Directives on File: Yes Advance Directives Date on File: 08/02/23 Recently lost weight without trying: No Eating poorly because of decreased appetite: No Nutrition Risks: No Nutritional Risk FDLMP: n/a Poor oral hygiene: No (some missing teeth) service: No Current occupational status: unemployed and disabled Gender identity: Female Cognitive needs: No Hearing needs: No Vision needs: Yes Meds Allergies Allergy/AdvReac Type Severity Reaction Status Date / Time amoxicillin [AMOXICILLIN] Allergy Intermediate RASH Verified 09/07/24 12:07 Home Medications ?Medication ?Instructions ?Recorded ?Confirmed ?Last Taken ?Type aspirin 81 mg tablet,delayed 81 mg PO BEDTIME 01/10/21 09/07/24 08/10/24 History release (Adult Low Dose Aspirin) psyllium husk 0.52 gram capsule 1.04 g PO BID Constipation 02/28/24 09/07/24 08/10/24 History (Fiber Laxative (psyllium husk)) metformin 1,000 mg tablet 1,000 mg PO BID 05/06/24 09/07/24 08/10/24 History acetaminophen 650 mg 650 mg PO TID PRN Pain 05/30/24 09/07/24 08/10/24 History tablet,extended release ferrous sulfate 324 mg (65 mg 324 mg PO DAILY 05/30/24 09/07/24 08/10/24 History iron) tablet,delayed release linaclotide 72 mcg capsule 72 mcg PO DAILY 07/12/24 09/07/24 08/10/24 History (Linzess) famotidine 40 mg tablet 40 mg PO BEDTIME 07/26/24 09/07/24 08/10/24 History simethicone 180 mg capsule 180 mg PO QID 07/26/24 09/07/24 08/10/24 History (Anti-Gas Ultra Strength) sitagliptin phosphate 100 mg 100 mg PO DAILY 07/26/24 09/07/24 08/10/24 History tablet (Januvia) varenicline 1 mg tablet 1 mg PO BID 07/26/24 09/07/24 08/10/24 History nicotine 14 mg/24 hr daily 1 patch topical DAILY 08/11/24 09/07/24 08/10/24 History transdermal patch Exam Airway Mallampati Class: II TM Dist: >3cm Neck ROM: Limited Heart: rrr Lungs: cta Assessment and Plan Assessment Anesthesia Assessment: Anesthesia Plan Discussed Final Anesthetic Review Family History of Problems with Anesthesia: No History of Problems with Anesthesia: No NPO: Yes ASA Class: III Final Preanesthetic Review: No Changes in Pt Med Stat, Meds/Allgs Chart Reviewed, Consent Obtained/Reviewed and Anes Risks/Benef Reviewed Patient Risk: Intermediate Procedure Risk: Low Anesthetic Plan Anesthetic Plan: GA Disposition: Standard PACU
[2024-09-11] VITALS (9 sets, daily range): BP systolic 131–159; BP diastolic 53–76; PULSE 78–95; RESP 14–18; TEMP 36.2–36.7; O2SAT 90–97; BMI 24.3
--- NOTE | ~2024-09-11 | CT_ITS ---
PROCEDURES: CT-guided percutaneous cryoablation right renal tumor HISTORY/INDICATION: Right renal tumor COMPLICATIONS: None ESTIMATED BLOOD LOSS: < 5 ml CONTRAST: None SEDATION: SEE SEPARATELY RECORD NOTES FROM ANESTHESIA PROCEDURE NOTE: The procedure, risks, benefits, and alternatives were carefully explained to the patient and written informed consent was obtained. The patient was placed lateral decubitus on the CT table. A timeout was performed. A limited CT of the abdomen was performed to localize the right kidney mass and choose appropriate cryoprobe entry and trajectory. The patient was prepped and draped in usual sterile fashion. The skin and deeper soft tissues were anesthetized with lidocaine. Under CT guidance, 2 cryoprobes were advanced into the right renal mass. Cryoablation was then performed using a 10 minute freeze followed by 8 minute passive thaw followed by 10 minute freeze with intermittent CT images obtained demonstrating the ice ball and adequate zone of ablation. There is trace inflammation/hematoma adjacent to the treatment site which remains unchanged throughout this process. Following the completion of the cryoablation, the cryoprobe's were removed. A sterile dressing was applied. Post ablation images do not demonstrate any evidence of worsening bleeding or other complication The patient was stable after the procedure and was transferred to the post anesthesia care unit. CT/CT Guided RF Ablation Renal Impression: CT-guided percutaneous cryoablation right renal tumor. Electronically signed by: Damaos Rios MD 09/11/2024 04:53 PM [facility] SHORT
[2024-09-11 12:43] LABS: Glucose, Whole Blood 137 mg/dL (60-115)
[2024-09-11] MEDS: Lactated Ringers 1,000 ML 100 ML IVCONT (12:46)
--- NOTE | 2024-09-11 13:10 | MHC.SHP ---
Pre-Procedural Eval Section A - 24 Hr Update-Section A only Date of Service: 09/11/24 Section B - Complete if H&P > 30 days Chief Complaint: CRYO- RT RENAL Details of Present Illness: 64 y/o female with a right lower pole renal mass. Relevant Family History (Specify if Yes): No Relevant Social History: Tobacco Use Present Medications: see Short Stay Collaborative assessment Medical History: Significant History History of Previous Operations: Relevant previous surgery/procedure and date(s) Allergies: Allergies Allergy/AdvReac Type Severity Reaction Status Date / Time amoxicillin [AMOXICILLIN] Allergy Intermediate RASH Verified 09/07/24 12:07 Review of Systems Sugical H&P ROS: Negative: Constitution, Cardiovascular and Respiratory Exam Surgical H&P Exam: Normal: Heart, Normal: Lungs, Normal: Abdomen, Normal: Skin and Normal: Neurological Plan 64 y/o female with right renal mass -CT cryoablation Time Spent With Patient Time: Total time managing care of this patient today ____ minutes.
== END 2024-09-11 19:45 | disposition home or self-care (01) ==
PROVIDERS: Student in an Organized Health Care Education/Training Program; PCP Internal Medicine; Visit Provider Radiology Vascular & Interventional Radiology
DX: C64.1 Malignant neoplasm of right kidney, except renal pelvis (principal); J44.9 Chronic obstructive pulmonary disease, unspecified; Z99.81 Dependence on supplemental oxygen; Z79.51 Long term (current) use of inhaled steroids; Z88.1 Allergy status to other antibiotic agents; F17.210 Nicotine dependence, cigarettes, uncomplicated
CPT/HCPCS: 50592; 77013; 82947; 86850; 86900; 86901; C2618; J0131; J0690; J2003; J2704; J3010

== ENCOUNTER → 2024-09-11 14:49 | Outpatient (BNV) | payer OTHER, SELFPAY | PROVIDERS: PCP Internal Medicine; Visit Provider Student in an Organized Health Care Education/Training Program | DX: N28.89 Other specified disorders of kidney and ureter (principal) | CPT/HCPCS: 50592; 77013 ==

== ENCOUNTER 2024-09-16 16:53 | Emergency (ER) | payer OTHER, SELFPAY ==
--- NOTE | ~2024-09-16 | CT_ITS ---
CLINICAL HISTORY: R flank pain. September 11 CT cryoablation R kidney CT abdomen and pelvis with contrast Comparison: CT/SR - CT ABDOMEN PELVIS WO IV CON - 08/08/24 18:23 EST Findings: No consolidation or effusion. Minimal nonspecific interstitial opacities present at the right lower lobe. The liver is enlarged. The liver appears normal in contour. The gallbladder and solid organs are otherwise within normal limits. No hydronephrosis or hydroureter. The left kidney enhances normally. Focal low-attenuation area identified of the inferior pole of the right kidney with adjacent fat stranding and scattered free fluid, which may represent postprocedural change. A crescentic area of heterogeneous enhancement is identified at the inferior pole of the right kidney, along the superolateral margin of the posttreatment change area, visualized on coronal image number 60 of series 7 and axial image number 32 of series 3. No bowel obstruction, pneumoperitoneum, or pneumatosis. Small calcification identified over the uterine fundus with a mildly lobulated contour in this region, suggesting sequela of uterine fibroid disease. Mild inferior displacement of the pelvic structures, most prominent at the level of the rectum, which may represent mild pelvic organ prolapse. No bladder wall thickening. Normal appendix. No acute fracture visualized. IMPRESSION: 1. Focal area of decreased attenuation present at the inferior pole of the right kidney with adjacent fat stranding and scattered free fluid, suggesting posttreatment change. Some degree of superimposed infectious/inflammatory change or minimal blood products is not excluded. No soft tissue gas identified in this region. There is a small, crescentic area of heterogeneous enhancement along the superolateral aspect of the treated region at the inferior pole of the right kidney which may represent residual tumor. 2. Hepatomegaly. This document has been electronically signed by: Torsten Carreno MD on 09/16/2024 21:59:58
--- NOTE | ~2024-09-16 | XR_ITS ---
CLINICAL HISTORY: L hand pain 4 view left hand Comparison: None Findings: No fractures or dislocations. Mild degenerative changes. No erosions. No radiopaque foreign body. Decreased bone mineralization. IMPRESSION: 1. No acute findings This document has been electronically signed by: Jeremiah Stokes MD on 09/16/2024 18:01:20
[2024-09-16 17:09] VITALS: BP 111/52; PULSE 98; RESP 18; TEMP 36.6; O2SAT 98; BMI 24.7
--- NOTE | 2024-09-16 17:11 | ED.GENADULT ---
HPI - General Adult General Chief complaint: Abdominal Pain Stated complaint: left hand pain,abd pain Time Seen by Provider: 09/16/24 19:45 History of Present Illness ED Provider: Lukas Alvarez MD HPI narrative: [age] female comes in with pain to the right flank and left hand pain. She had cryoablation the right kidney for inferior pole tumor 3 days ago and now has some pain there. No vomiting no syncope no abdominal distention she denies any urinary symptoms. hand is hurting her she denies any injury she points to the mid 5th metacarpal region Related Data Home Medications ?Medication ?Instructions ?Recorded ?Confirmed aspirin 81 mg tablet,delayed 81 mg PO BEDTIME 01/10/21 09/07/24 release (Adult Low Dose Aspirin) psyllium husk 0.52 gram capsule 1.04 g PO BID Constipation 02/28/24 09/07/24 (Fiber Laxative (psyllium husk)) metformin 1,000 mg tablet 1,000 mg PO BID 05/06/24 09/07/24 acetaminophen 650 mg 650 mg PO TID PRN Pain 05/30/24 09/07/24 tablet,extended release ferrous sulfate 324 mg (65 mg 324 mg PO DAILY 05/30/24 09/07/24 iron) tablet,delayed release linaclotide 72 mcg capsule 72 mcg PO DAILY 07/12/24 09/07/24 (Linzess) famotidine 40 mg tablet 40 mg PO BEDTIME 07/26/24 09/07/24 simethicone 180 mg capsule 180 mg PO QID 07/26/24 09/07/24 (Anti-Gas Ultra Strength) sitagliptin phosphate 100 mg 100 mg PO DAILY 07/26/24 09/07/24 tablet (Januvia) varenicline 1 mg tablet 1 mg PO BID 07/26/24 09/07/24 nicotine 14 mg/24 hr daily 1 patch topical DAILY 08/11/24 09/07/24 transdermal patch Previous Rx's ?Medication ?Instructions ?Recorded blood-glucose meter (FreeStyle #1 ea 10/03/21 Lite Meter kit) lancets 28 gauge (FreeStyle #100 ea 01/06/22 Lancets) FreeStyle Lite Strips (blood sugar #100 ea 03/10/22 diagnostic) flash glucose sensor (FreeStyle #6 ea 02/19/23 Cristian 2 Sensor kit) flash glucose scanning reader #1 ea 03/26/23 (Spectafyyle Cristian 2 [place]) gabapentin 800 mg tablet 800 mg PO TID 30 days #90 tabs 01/26/24 magnesium oxide 400 mg (241.3 mg 400 mg PO DAILY #7 tabs 06/01/24 magnesium) tablet ipratropium 0.5 mg-albuterol 3 mg 3 ml inhalation Q6H wheezing 1 06/21/24 (2.5 mg base)/3 mL nebulization month #180 mL soln losartan 50 mg tablet 50 mg PO DAILY #90 tabs 07/11/24 rosuvastatin 5 mg tablet 5 mg PO DAILY #90 tabs 07/11/24 metoclopramide HCl 10 mg tablet 20 mg (2 x 10 mg) PO TIDWMEAL #180 07/12/24 (Reglan) tabs amlodipine 5 mg tablet 5 mg PO DAILY #90 tabs 07/21/24 cholecalciferol (vitamin D3) 50 50 mcg PO DAILY #90 caps 07/21/24 mcg (2,000 unit) capsule benzonatate 100 mg capsule 100 mg PO TID PRN cough #30 caps 08/13/24 methocarbamol 500 mg tablet 500 mg PO TID PRN Muscle Spasm #30 08/13/24 tabs pantoprazole 40 mg tablet,delayed 40 mg PO BID #180 tabs 08/18/24 release baclofen 10 mg tablet 10 mg PO TID 30 days #90 tabs 08/24/24 aluminum hydrox-magnesium carb 254 10 ml PO QID PRN dyspepsia #355 mL 08/31/24 mg-237.5 mg/5 mL oral suspension (Gaviscon Extra Strength) Allergies Allergy/AdvReac Type Severity Reaction Status Date / Time amoxicillin [AMOXICILLIN] Allergy Intermediate RASH Verified 09/16/24 17:12 [facility] Past Medical History Medical History Heavy cigarette smoker History of pneumonia COPD mixed type Hypochromic anemia Gastritis Diabetic gastroparesis Diastolic CHF with preserved left ventricular function, NYHA class 2 Chronic hypercapnic respiratory failure Mixed dyslipidemia Type 2 diabetes mellitus with other diabetic kidney complication Essential hypertension Smoker unmotivated to quit Postlaminectomy syndrome of cervical region Seasonal allergic rhinitis Degenerative disc disease, cervical Postmenopause Dyslipidemia Gastroparesis GERD (gastroesophageal reflux disease) Surgical History H/O cervical discectomy History of esophagogastroduodenoscopy (EGD) Hx of colonoscopy Family History Family History Mother Diabetes Sister Diabetes Mental health disorder Brother Diabetes Father HTN (hypertension) Social History Social History Household Members: Significant Other Housing: Apartment Housing Other:: mobile home Are you a primary rehab care assistant to a significant other at home: No Do you presently have visiting nurse or other home services: Yes ([employer]) Alcohol intake: never Comment: Commode/ Hi Flow O2 Patient Tobacco Use Status: Current everyday Tobacco user Tobacco use type: Cigarette Cigarette Packs Per Day: 0.5 Cigarettes Per Day: 10 Years Smoked: 51 e-Cigarette/Vaping Use: Never Used Second Hand Smoke Exposure: Yes Advance Directives: Yes Advance Directives on File: Yes Advance Directives Date on File: 08/02/23 Do you have a plan to hurt others: No Plan service: No Current occupational status: unemployed and disabled Gender identity: Female Cognitive needs: No Hearing needs: No Vision needs: Yes Physical Exam ED Vital Signs: Vital Signs - 24 hr 09/16/24 21:32 09/16/24 21:43 09/16/24 23:28 Temperature 98.3 F 98.3 F Pulse Rate 87 87 Respiratory Rate 17 17 17 Blood Pressure 135/77 135/77 Pulse Oximetry 95 95 Oxygen Delivery Method Nasal Cannula Nasal Cannula Oxygen Flow Rate 2 2 09/16/24 23:28 Temperature 98.0 F Pulse Rate 87 Respiratory Rate 17 Blood Pressure 136/89 Pulse Oximetry 94 Oxygen Delivery Method Nasal Cannula Oxygen Flow Rate 2 BMI result Body Mass Index 24.7 Const Other: EXAM: Gen: Alert, awake, well appearing, thin frail chronically ill-appearing on 2 L nasal cannula this is chronic O2 requirement underlying COPD Head: Atraumatic Eyes: Anicteric, Normal conjunctiva. ENT: Moist mucosa, no pallor. Neck: Supple. Respiratory: Breathing comfortably, No distress.Clear to auscultation bilaterally, symmetric chest expansion, No wheeze, rales, ronchi. Cardiovascular: Regular rate and rhythm. No murmurs or rub. Well perfused periphery, warm extremities. No edema. Abdominal: Soft, no objective distension. No palpable masses or obvious organomegaly. no guarding, no rebound tenderness or other peritoneal findings. flank right side with a surgical bandage there is no surrounding erythema or expressible discharge. Minimal tenderness in the right upper quadrant otherwise nontender MSK hand left side with no focal tenderness bony deformity : No flank tenderness. Neuro: Alert. Gross movement of all extremities intact. Vital signs: See flowsheet Course Course Course Narrative: This is a Rapid Medical Exam performed in triage by Sharri Land PA-C. Full HPI, ROS and PE to be performed by primary ED provider. 64-year-old female with a past medical history of right renal cryoablation due to renal mass on 09/11/2024, dm, HTN, gastroparesis, GERD, anemia, COPD chronically on 2 L NC presenting to the ED c/o abdominal pain and left hand pain x today. Denies nausea, vomiting, fever, injury to hand PE: Left hand without appreciable deformity/erythema or tenderness. Plan: Labs, x-ray Medications Administered Discontinued Medications Generic Name Dose Route Start Last Admin Trade Name Freq PRN Reason Stop Dose Admin Magnesium Sulfate 2 gm in 50 mls @ 25 mls/hr 09/16/24 19:45 09/16/24 20:22 Magnesium Sulfate/H2o IV 09/16/24 21:44 Infused ONCE ONE Infusion Acetaminophen 1,000 mg in 100 mls @ 400 mls/hr 09/16/24 21:00 09/16/24 21:47 Ofirmev IV 09/16/24 21:14 Infused ONCE ONE Infusion Iohexol 85 ml 09/16/24 21:23 09/16/24 21:24 Iohexol 350 Mg/Ml 100 Ml Infus..Btl IV 09/16/24 21:24 85 ml ONCE ONE Administration Magnesium Oxide 400 mg 09/16/24 19:45 09/16/24 20:02 Magnesium Oxide 400 Mg Tablet PO 09/16/24 19:46 400 mg ONCE ONE Administration Morphine Sulfate 2 mg 09/16/24 21:00 09/16/24 21:32 Morphine Sulfate 2 Mg/Ml Cartridge IVPUSH 09/16/24 21:01 2 mg ONCE ONE Administration Protocol Medical Decision Making Medical Decision Making [facility] Narrative: 64 female who presents with right flank/ right upper quadrant pain approximately 3 days after IR performed CT-guided cryoablation of a renal mass. Her abdomen is mildly tender in the right upper quadrant the surgical wound appears to be healing well there is no hematoma there erythema or discharge. Think it is reasonable given her normal renal function to assess for any postoperative bleeding to the area with CT __ CT without clear signs of post op complication Mg repletion IV and Oral Differential Diagnosis cryo shock, postoperative bleeding, UTI, pyelonephritis, surgical wound infection Admission/Observation Consideration of admission/observation: Escalation of care including admission/observation considered Lab Data [facility] Lab Attestation statement: I reviewed the patient's lab results. 09/16/24 17:27 09/16/24 17:27 Labs: Lab Results 09/16/24 09/16/24 Range/Units 17:27 17:35 WBC 12.8 H (4.8-10.8) X10*3/uL RBC 4.23 (4.20-5.50) X10*6/uL Hgb 11.5 L (12.0-16.0) g/dl Hct 36.1 L (37.0-47.0) % MCV 85.3 (80.0-98.0) fL MCH 27.2 (27.0-33.0) pg MCHC 31.9 (31.0-35.0) g/dl RDW 17.1 H (11.0-16.0) % Plt Count 370 (160-400) X10*3/uL MPV 10.4 (9.4-12.3) fL Immature Gran % (Auto) 0.7 H (0.0-0.4) % Neut % (Auto) 67.7 (45-73) % Lymph % (Auto) 22.3 (20-40) % Wise % (Auto) 7.9 (2-11) % Eos % (Auto) 0.9 (0-4) % Baso % (Auto) 0.5 (0-2) % Lymph # (Auto) 2.9 (1.2-4.9) X10*3/uL Wise # (Auto) 1.0 (0.1-1.2) X10*3/uL Eos # (Auto) 0.1 (0.0-0.4) X10*3/uL Baso # (Auto) 0.1 (0.0-0.2) X10*3/uL Abs Immat Gran (auto) 0.09 H (0.00-0.03) X10*3/uL Absolute Neuts (auto) 8.7 H (2.0-8.3) x10*3/uL Absolute Nucleated RBC 0.000 (0.0-0.012) X10*3/uL Nucleated RBC % (auto) 0.0 (0.0-0.2) /100WBC Sodium 139 (135-145) mmol/L Potassium 3.6 D (3.3-5.1) mmol/L Chloride 101 (96-108) mmol/L Carbon Dioxide 24 (22-29) mmol/L Anion Gap 18 (12-20) BUN 9 (9-16) mg/dL Creatinine 0.51 (0.5-1.4) mg/dL Estim Creat Clear Calc 78.1 Estimated GFR > 60 Random Glucose 102 (60-115) mg/dL Calcium 11.0 H (8.4-10.2) mg/dL Magnesium 1.1 L* (1.6-2.6) mg/dL Total Bilirubin 0.2 (0.0-1.0) mg/dL Direct Bilirubin < 0.2 (0.0-0.5) mg/dL AST 13 (5-31) U/L ALT 8 (0-31) U/L Alkaline Phosphatase 103 (39-117) U/L Total Protein 7.5 (6.5-8.0) g/dL Albumin 4.2 (3.5-5.0) g/dL Lipase 27 (8-78) U/L Urine Color Yellow Urine Appearance Clear Urine pH 5.5 (5.0-9.0) Ur Specific [place] 1.025 (1.005-1.025) Urine Protein Trace (Neg-Trace) mg/dL Urine Glucose (UA) Negative (Negative) mg/dL Urine Ketones Trace (Negative) mg/dL Urine Blood Small (1+) H (Negative) Urine Nitrite Negative (Negative) Ur Leukocyte Esterase Negative (Negative) Urine RBC 0-2 (0-2) /HPF Urine WBC 0-5 (0-5) /HPF Ur Squamous Epith Cells 6-10 (0-2) /HPF Urine Bacteria None Seen (None Seen) Hyaline Casts 3-5 (0-2) /LPF Radiology Impression Discussion of test interpretation with radiology: I have reviewed the radiologist's reading. Radiologist Impression: CT: IMPRESSION: 1. Focal area of decreased attenuation present at the inferior pole of the right kidney with adjacent fat stranding and scattered free fluid, suggesting posttreatment change. Some degree of superimposed infectious/inflammatory change or minimal blood products is not excluded. No soft tissue gas identified in this region. There is a small, crescentic area of heterogeneous enhancement along the superolateral aspect of the treated region at the inferior pole of the right kidney which may represent residual tumor. 2. Hepatomegaly. Social Determinants Patient?s care significantly limited by Social Determinants of Health including: Low income Critical Care Time Critical Care Time Attestation: Critical Care Procedure Note Authorized and Performed by: MD Milan Lou, Lukas Alvarez MD, independently performed critical care. Total critical care time: Approximately 40 minutes Due to a high probability of clinically significant, life threatening deterioration, the patient required my highest level of preparedness to intervene emergently and I personally spent this critical care time directly and personally managing the patient. This critical care time included obtaining a history; examining the patient; pulse oximetry; ordering and review of studies; arranging urgent treatment with development of a management plan; evaluation of patient's response to treatment; frequent reassessment; and, discussions with other providers. This critical care time was performed to assess and manage the high probability of imminent, life-threatening deterioration that could result in multi-organ failure. It was exclusive of separately billable procedures and treating other patients and teaching time. Brief narrative of care: mod to severe electrolyte deficiency requiring IV Mg Discharge Plan Discharge Clinical Impression: Postoperative abdominal pain Patient Disposition: Home, Self-Care Instructions: Abdominal Pain (ED) Additional Instructions: DISCHARGE DIAGNOSES: Postoperative abdominal pain unclear cause no significant abnormalities found on imaging HISTORY OF PRESENTATION: abdominal pain left hand pain EMERGENCY DEPARTMENT COURSE,TESTS, TREATMENTS: While in the ED today you were found to have low magnesium this is acute on chronic we repleted this with intravenous and oral magnesium you need to have this level repeated within 1 week by her primary doctor We did a CT of the abdomen due to pain you were having at the postoperative site where they did an interventional radiology needle guided freezing of your kidney tumor on the right side. We did not see any significant complications of this and we have sent our note for the interventional radiologist who performed the procedure to review. For follow up as needed with them DISCHARGE MEDICATIONS: [We have made no changes to your regular medication regimen] FOLLOW-UP: Call your primary or general physician soon as possible to discuss your symptoms, your ED visit and to discuss follow up plans call your primary doctor for follow up take Tylenol as needed for pain every 4 hours not to exceed 4 g per day INSTRUCTIONS & RETURN PRECAUTIONS: If any symptoms change first call your primary physician, if it is after-hours your primary doctors office should have a provider application security architect you can speak with. If the symptoms are severe or very concerning to you then call 911 or return to the ED. return for severe pain, severe blood in the urine or inability urinate, high fever that is not going away with typical supportive treatments Lukas Alvarez MD Emergency Physician [facility] Prescriptions: No Action (DME) lancets [FreeStyle Lancets] 28 gauge misc See Rx Instructions .Route Qty: 100 5RF Rx Instructions: As directed twice a day AC (DME) FreeStyle Lite Strips Strip See Rx Instructions .Route Qty: 100 0RF Rx Instructions: check fasting blood sugar twice a day before meals (DME) FreeStyle Cristian 2 Sensor Kit See Rx Instructions .Route Qty: 6 3RF Rx Instructions: Test blood sugar 4 times per day (DME) FreeStyle Cristian 2 [place] Misc See Rx Instructions .Route Qty: 1 0RF Rx Instructions: test blood sugar 4 times per day gabapentin 800 mg tablet 800 mg PO TID 30 Days Qty: 90 6RF rosuvastatin 5 mg tablet 5 mg PO DAILY Qty: 90 1RF losartan 50 mg tablet 50 mg PO DAILY Qty: 90 1RF amlodipine 5 mg tablet 5 mg PO DAILY Qty: 90 1RF cholecalciferol (vitamin D3) 50 mcg (2,000 unit) capsule 50 mcg PO DAILY Qty: 90 1RF baclofen 10 mg tablet 10 mg PO TID 30 Days Qty: 90 6RF psyllium husk [Fiber Laxative (psyllium husk)] 0.52 gram capsule 1.04 g PO BID metformin 1,000 mg tablet 1,000 mg PO BID Gaviscon Extra Strength 254-237.5 mg/5 mL suspension 10 ml PO QID PRN (Reason: dyspepsia) Qty: 355 0RF acetaminophen 650 mg Tablet Extended Release 650 mg PO TID PRN (Reason: Pain) ferrous sulfate 324 mg (65 mg iron) tablet,delayed release (DR/EC) 324 mg PO DAILY magnesium oxide 400 mg (241.3 mg magnesium) Tablet 400 mg PO DAILY Qty: 7 0RF simethicone [Anti-Gas Ultra Strength] 180 mg capsule 180 mg PO QID famotidine 40 mg tablet 40 mg PO BEDTIME varenicline 1 mg tablet 1 mg PO BID Januvia 100 mg tablet 100 mg PO DAILY nicotine 14 mg/24 hr patch 24 hour 1 patch topical DAILY methocarbamol 500 mg Tablet 500 mg PO TID PRN (Reason: Muscle Spasm) Qty: 30 0RF benzonatate 100 mg Capsule 100 mg PO TID PRN (Reason: cough) Qty: 30 0RF aspirin [Adult Low Dose Aspirin] 81 mg tablet,delayed release (DR/EC) 81 mg PO BEDTIME (DME) blood-glucose meter [FreeStyle Lite Meter] Kit See Rx Instructions .Route Qty: 1 0RF Rx Instructions: As directed twice a day before meals Linzess 72 mcg capsule 72 mcg PO DAILY metoclopramide HCl [Reglan] 10 mg tablet 20 mg PO TIDWMEAL Qty: 180 6RF ipratropium-albuterol 0.5 mg-3 mg(2.5 mg base)/3 mL solution for nebulization 3 ml inhalation Q6H 30 Days Qty: 180 1RF pantoprazole 40 mg tablet,delayed release (DR/EC) 40 mg PO BID Qty: 180 1RF Rx Instructions: take in am , 1 hour before food or medicine intake Interventions: ED Discharge Assessment Last Done: 09/16/24 23:28 Discharge Date/Time: 09/16/24 23:28 Print Language: Greek
[2024-09-16 17:41] LABS: MANUAL DIFF FLAG NO
[2024-09-16 17:48] LABS: Basophils Absolute Auto 0.1 X10*3/uL (0.0-0.2); Basophils Percent Auto 0.5 % (0-2); Eosinophils Absolute Auto 0.1 X10*3/uL (0.0-0.4); Eosinophils Percent Auto 0.9 % (0-4); Hematocrit 36.1 % (37.0-47.0); Hemoglobin 11.5 g/dl (12.0-16.0); Imm Gran Abs Auto 0.09 X10*3/uL (0.00-0.03); Imm Gran Pct Auto 0.7 % (0.0-0.4); Lymphocytes Absolute Auto 2.9 X10*3/uL (1.2-4.9); Lymphocytes Percent Auto 22.3 % (20-40); Mean Corpuscular HGB Conc 31.9 g/dl (31.0-35.0); Mean Corpuscular Hemoglobin 27.2 pg (27.0-33.0); Mean Corpuscular Volume 85.3 fL (80.0-98.0); Mean Platelet Volume 10.4 fL (9.4-12.3); Monocytes Percent Auto 7.9 % (2-11); Neutrophils Absolute Auto 8.7 x10*3/uL (2.0-8.3); Neutrophils Percent Auto 67.7 % (45-73); Platelet Count 370 X10*3/uL (160-400); Red Blood Count 4.23 X10*6/uL (4.20-5.50); Red Cell Distribution Width 17.1 % (11.0-16.0); White Blood Count 12.8 X10*3/uL (4.8-10.8)
[2024-09-16 17:50] LABS: Appearance Urine Clear; Color Urine Yellow; Glucose Urine UA Negative (Negative); Leukocyte Esterase Urine Negative (Negative); Nitrite Urine Negative (Negative); PH 5.5 (5.0-9.0); Specific Gravity - Urine 1.025 (1.005-1.025); UMIC TRIGGER UACC YES; Urine Blood Small (1+) (Negative); Urine Ketones Trace mg/dL (Negative); Urine Protein Trace mg/dL (Neg-Trace)
[2024-09-16 18:06] LABS: Bacteria Urine None Seen (None Seen); RBC Urine 0-2 /HPF (0-2); WBC Urine 0-5 /HPF (0-5)
[2024-09-16 18:09] LABS: Alanine Aminotransferase 8 U/L (0-31); Albumin Level 4.2 g/dL (3.5-5.0); Alkaline Phosphatase 103 U/L (39-117); Anion Gap 18 (12-20); Aspartate Amino Transferase 13 U/L (5-31); Bilirubin Direct < 0.2 mg/dL (0.0-0.5); Bilirubin Total 0.2 mg/dL (0.0-1.0); Blood Urea Nitrogen 9 mg/dL (9-16); Carbon Dioxide 24 mmol/L (22-29); Chloride 101 mmol/L (96-108); Creatinine Clr Calc Pharmacy 78.1; Estimated Glomerular Filt Rate > 60; Glucose Random 102 mg/dL (60-115); Lipase 27 U/L (8-78); Magnesium 1.1 mg/dL (1.6-2.6); Potassium 3.6 mmol/L (3.3-5.1); Sodium 139 mmol/L (135-145); Total Protein 7.5 g/dL (6.5-8.0)
--- NOTE | 2024-09-16 19:05 | PC.NURSE ---
this rn assumed care of pt, pt resting in stretcher, no acute distress noted, 2L nc baseline sating 95-97%.
[2024-09-16] MEDS: Magnesium Sulfate/H2O 2 GM/50 ML PIGGYBACK IV (20:02)
[2024-09-16] MEDS: Magnesium Oxide 400 MG TABLET PO (20:02)
[2024-09-16] MEDS: iohexoL 350 MG/ML 100 ML INFUS..BTL 85 ML IV (21:24)
[2024-09-16 21:32] VITALS: RESP 17
[2024-09-16] MEDS: Acetaminophen 1,000 MG/100 ML PIGGYBACK 400 MG IV (21:32)
[2024-09-16] MEDS: Morphine Sulfate 2 MG/ML CARTRIDGE IVPUSH (21:32)
--- NOTE | 2024-09-16 21:42 | PC.NURSE ---
pt medicated per mar for 8/10 abdominal pain at this time.
[2024-09-16 21:43] VITALS: BP 135/77; PULSE 87; RESP 17; TEMP 36.8; O2SAT 95
--- NOTE | 2024-09-16 22:58 | PC.NURSE ---
pt significant other contacted at this time, Martin states he is on his way to pick pt up from the ed.
[2024-09-16 23:28] VITALS: BP 135/77; BP 136/89; PULSE 87; RESP 17; TEMP 36.7; TEMP 36.8; O2SAT 94; O2SAT 95
== END 2024-09-16 23:28 | disposition home or self-care (01) ==
PROVIDERS: Physician Assistant; Emergency Provider Emergency Medicine; PCP Internal Medicine
DX: G89.18 Other acute postprocedural pain (principal); R10.11 Right upper quadrant pain; M79.642 Pain in left hand; E11.9 Type 2 diabetes mellitus without complications; I10 Essential (primary) hypertension; E78.5 Hyperlipidemia, unspecified; C64.9 Malignant neoplasm of unspecified kidney, except renal pelvis; J44.9 Chronic obstructive pulmonary disease, unspecified; Z99.81 Dependence on supplemental oxygen; F17.210 Nicotine dependence, cigarettes, uncomplicated
CPT/HCPCS: 36415; 73110; 73130; 74177; 80048; 80076; 81001; 83690; 83735; 85025; 96365; 96375; 99284; 99285; J0131; J2270; J3475; Q9967

== ENCOUNTER → 2024-09-16 17:14 | Outpatient (BNV) | payer OTHER, SELFPAY | PROVIDERS: PCP Internal Medicine; Visit Provider Radiology Diagnostic Radiology | DX: M79.642 Pain in left hand (principal); M85.9 Disorder of bone density and structure, unspecified | CPT/HCPCS: 73110; 73130 ==

== ENCOUNTER 2024-09-21 15:55 | Outpatient (AMB) | payer OTHER, SELFPAY ==
--- NOTE | 2024-09-21 15:58 | MHC.OFFVIS ---
Intake Visit Reasons: 4w followup Intake Note: Patient is present for Follow up Allergies amoxicillin [AMOXICILLIN] Allergy (Intermediate, Verified 10/01/24 16:59) RASH HPI Comments Details: 09/21/24--Telehealth fu, s/p right renal mass cryoablation, the patient was in the ED on 09/16/24 for post procedure pain, she states she is doing better. Plan fu in 3-4 months. 08/21/24--Maria Elena was last seen 05/22/24--she had a CT Abd renal mass protocol on 04/18/24 She was referred for Interventional Radiology--cryoablationSingle approximate 2.5 cm lesion of the inferior pole the right kidney. She has not had procedure done as yet. She was seen in consultation by [facility]. She states the procedure has not been scheduled as yet. 05/22/24--63-year-old female with pertinent history of chronic hypoxia due to COPD on 2 L supplemental oxygen, hypertension, hyperlipidemia, wiw-itydygs-avftacssi diabetes mellitus, gastroesophageal reflux disease, tobacco use disorder who was admitted due to dyspnea and abdominal pain. CTAP - and renal US indeterminate small lesion right kidney [facility] Medical History Heavy cigarette smoker History of pneumonia COPD mixed type Hypochromic anemia Gastritis Diabetic gastroparesis Diastolic CHF with preserved left ventricular function, NYHA class 2 Chronic hypercapnic respiratory failure Mixed dyslipidemia Type 2 diabetes mellitus with other diabetic kidney complication Essential hypertension Smoker unmotivated to quit Postlaminectomy syndrome of cervical region Seasonal allergic rhinitis Degenerative disc disease, cervical Postmenopause Dyslipidemia Gastroparesis GERD (gastroesophageal reflux disease) Surgical History H/O cervical discectomy History of esophagogastroduodenoscopy (EGD) Hx of colonoscopy Family History Mother Diabetes Sister Diabetes Mental health disorder Brother Diabetes Father HTN (hypertension) Social History Household Members: Significant Other Housing: Apartment Housing Other:: mobile home Are you a primary group care worker to a significant other at home: No Do you presently have visiting nurse or other home services: Yes ([employer]) Alcohol intake: never Comment: Commode/ Hi Flow O2 Patient Tobacco Use Status: Current everyday Tobacco user Tobacco use type: Cigarette Cigarette Packs Per Day: 0.5 Cigarettes Per Day: 10 Years Smoked: 51 e-Cigarette/Vaping Use: Never Used Second Hand Smoke Exposure: Yes Advance Directives Date on File: 08/02/23 service: No Current occupational status: unemployed and disabled Gender identity: Female Cognitive needs: No Hearing needs: No Vision needs: Yes Telehealth Telehealth Telehealth Platform: QuVIS Location of provider rendering services: practice address Location of patient: address on file Patient Identification confirmed using: Name, : Yes Telehealth method: voice only Patient verbally consented to treatment: Yes Patient verbally consented to billing insurance company: Yes Patient informed of any privacy concerns related to visit: Yes Minutes spent on Phone/Video with Pt.: 15 Assessment & Plan Assessment & Plan (1) Renal cell carcinoma: Code(s): C64.9 - Malignant neoplasm of unspecified kidney, except renal pelvis Category: Medical Qualifiers: Laterality: right Qualified Code(s): C64.1 - Malignant neoplasm of right kidney, except renal pelvis Plan s/p IR cryoablation renal mass 09/11/24 FU renal US in 4 months Patient Instructions: The patient had an opportunity to ask questions regarding treatment plan. The patient expressed understanding and agreement with the above treatment plan. The patient is aware they should contact our office by phone for worsening of their current condition or the appearance of new symptoms. Compliance is encouraged with any medications and followup testing that is ordered. It is a privilege to be allowed the opportunity to participate in the urologic care of your patient. If you have any questions or concerns regarding treatment for the above conditions please do not hesitate to contact me. The office telephone contact is [phone]. This note is constructed in part using voice recognition software. While every effort has been made to ensure accuracy software engineer mobile errors may have been included. Yours sincerely, Vikki Rangel MD Coding Level of Care Code Tele Est Pt Level 3 (64948) Diagnoses Renal cell carcinoma of right kidney C64.1 Laterality: right
== END 2024-09-21 16:22 | disposition home or self-care (01) ==
LOC: HO.HUSH 15:55
PROVIDERS: PCP Internal Medicine; Visit Provider Urology
DX: C64.1 Malignant neoplasm of right kidney, except renal pelvis (principal)
CPT/HCPCS: 99213

== ENCOUNTER 2024-09-28 11:40 | Outpatient (AMB) | payer OTHER, SELFPAY ==
--- NOTE | 2024-09-28 12:05 | MHC.PC.OV ---
Vital Signs 09/28/24 12:06 Height 4 ft 9 in Weight 114 lb BMI 24.7 BP 136/58 L Blood Pressure Location Lt brachial Position Sitting Respiration 18 Pulse 94 Pulse Source Pulse Oximeter Temp 98.4 F Temp Source Oral Pulse Oximetry (%) 94 Oxygen Delivery Method Room Air Intake Visit Reasons: 3 months follow up Allergies amoxicillin [AMOXICILLIN] Allergy (Intermediate, Verified 10/01/24 16:59) RASH Medication List - Last Reconciled 09/28/24 by Magalie Nicolas MD acetaminophen ER 650 mg PO TID PRN aluminum hydrox-magnesium carb 254-237.5 mg/5 mL (Gaviscon Extra Strength) 10 mL PO QID PRN amlodipine 5 mg PO DAILY aspirin (Adult Low Dose Aspirin) 81 mg PO BEDTIME baclofen 10 mg PO TID 30 days benzonatate 100 mg PO TID PRN blood-glucose meter (FreeStyle Lite Meter kit) As directed twice a day before meals cholecalciferol (vitamin D3) 50 mcg PO DAILY famotidine 40 mg PO BEDTIME ferrous sulfate 324 mg PO DAILY flash glucose scanning reader ([employer] SystemsStyle Cristian 2 [place]) test blood sugar 4 times per day flash glucose sensor (FreeStyle Cristian 2 Sensor kit) Test blood sugar 4 times per day wrruedobbjo-phdoegiim-lfvgiwuo 100-62.5-25 mcg (Trelegy Ellipta) inhalation DAILY FreeStyle Lite Strips (blood sugar diagnostic) check fasting blood sugar twice a day before meals NS gabapentin 800 mg PO TID 30 days ipratropium-albuterol 0.5 mg-3 mg(2.5 mg base)/3 mL 3 mL inhalation Q6H 1 month lancets (FreeStyle Lancets) As directed twice a day AC linaclotide (Linzess) 72 mcg PO DAILY losartan 50 mg PO DAILY magnesium oxide 400 mg PO DAILY metformin 1,000 mg PO BID methocarbamol 500 mg PO TID PRN metoclopramide HCl (Reglan) 20 mg (2 x 10 mg) PO TIDWMEAL pantoprazole 40 mg PO BID psyllium husk (Fiber Laxative (psyllium husk)) 1.04 grams PO BID rosuvastatin 5 mg PO DAILY simethicone (Anti-Gas Ultra Strength) 180 mg PO QID sitagliptin phosphate (Januvia) 100 mg PO DAILY varenicline tartrate 1 mg PO BID 30 days Tobacco use date assessed: 09/28/24 Dental Screening Dental Screen Date: 09/07/24 HPI 3 months follow up HPI Details 64-year-old lady with history of COPD on continuous O2 supplement at 2 L per nasal cannula, gastritis, diabetes mellitus, with gastroparesis, hypertension, degenerative joint disease, hyperlipidemia here today for follow-up. -Recently began Trelegy with noted improvement l. Actively reducing smoking with Chantix; current strategy is to gradually decrease cigarette consumption, now down to half a pack a day. Mild anemia and low magnesium levels were noted earlier this year and warrant re-evaluation. 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 Essential hypertension Smoker unmotivated to quit Postlaminectomy syndrome of cervical region Seasonal allergic rhinitis Degenerative disc disease, cervical Postmenopause Dyslipidemia Gastroparesis GERD (gastroesophageal reflux disease) Surgical History H/O cervical discectomy History of esophagogastroduodenoscopy (EGD) Hx of colonoscopy Family History Mother Diabetes Sister Diabetes Mental health disorder Brother Diabetes Father HTN (hypertension) Social History Household Members: Significant Other Housing: Apartment Housing Other:: mobile home Are you a primary career services manager to a significant other at home: No Do you presently have visiting nurse or other home services: Yes ([employer]) Alcohol intake: never Comment: Commode/ Hi Flow O2 Patient Tobacco Use Status: Current everyday Tobacco user Tobacco use type: Cigarette Cigarette Packs Per Day: 0.5 Cigarettes Per Day: 10 Years Smoked: 51 e-Cigarette/Vaping Use: Never Used Second Hand Smoke Exposure: Yes Advance Directives Date on File: 08/02/23 service: No Current occupational status: unemployed and disabled Gender identity: Female Cognitive needs: No Hearing needs: No Vision needs: Yes Questionnaire Thrive Questionnaire Date Thrive assessed: 09/07/24 I am a: Patient What is your living situation today?: I have a steady place to live Within the past 12 months, did the food you bought not last and you didn't have the money to get more?: Never true Within the past 12 months, did you worry whether your food would run out before you got money to buy more?: Never true Do you have trouble paying for medicines?: No Do you have trouble getting transportation to medical appointments?: No Do you have trouble paying your heating and electricity bill?: No Do you have trouble taking care of your child, family member or friend?: No Do you have trouble with day-to-day activities such as bathing, preparing meals, shopping, managing finances, etc.?: Yes Are you currently unemployed and looking for a job?: No Are you interested in more education?: No Please select the resources that you would like help with: None Currently or been in a relationship where the following occur: I choose not to answer THRIVE Score: 0 FREDI-7 AMB Questionnaire FREDI-7 Date FREDI - 7 assessed: 09/02/22 Source: Developed by Drs. Wiley Caballero, Sharmila Paez, Iraj Hernandez and colleagues, with an educational radha from [employer]. Review of Systems Const Denies fever(s), Denies headache(s), Reports increased appetite and Reports poor appetite ENT Denies dysphagia, Denies dizziness, Denies headache(s) and Denies mouth pain Card Reports no additional complaints and Reports dyspnea on exertion (unchanged) Resp Reports no additional complaints and Reports dyspnea on exertion (unchanged) GI Details: Reports as per HPI, Denies melena, Denies bloating, Denies hematochezia, Denies change in bowel habits, Denies dysphagia, Reports early satiety, Reports heartburn, Denies nausea and Denies vomiting Reports no additional complaints Musc Denies abnormal gait and Reports stiffness Neuro Denies Abnormal speech present, Denies abnormal gait, Denies dizziness, Denies headache(s) and Denies lack of coordination Patel/Lymph Denies easy bleeding and Denies easy bruising Aller/Immun Reports seasonal rhinorrhea Physical exam (Primary Care) Vital Signs: Last Vital Signs Temp 98.4 F 09/28/24 12:06 Pulse 94 09/28/24 12:06 Resp 18 09/28/24 12:06 BP 136/58 L 09/28/24 12:06 Pulse Ox 94 09/28/24 12:06 Oxygen Delivery Method Room Air 09/28/24 12:06 BMI result Body Mass Index 24.7 Tobacco/Smoking Status: Tobacco use Status Tobacco use date assessed 09/28/24 09/28/24 12:12 Patient Tobacco Use Status Current everyday Tobacco 09/28/24 12:12 Tobacco use type Cigarette 09/28/24 12:12 e-Cigarette/Vaping Use Never Used 09/28/24 12:12 Are you ready to quit: No Tobacco cessation counseling provided: Yes Thrive Assessment: Date of Thrive Assessment Date Thrive assessed 09/07/24 09/28/24 12:12 Currently or been in a relationship where the following occur: I choose not to answer Const General: alert and Physically active Orientation/consciousness: patient oriented x3 HENMT General nose exam: Normal external nose present and No nasal discharge present Mouth: oropharynx normal and moist mucous membranes Eyes General: appearance normal, both eyes and all related structures Neck Neck: Yes full ROM, Yes no lymphadenopathy and Yes supple Resp Effort & Inspection: normal respiratory effort and able to speak in complete sentences Auscultation: diminished lung sounds Cardio Rate: regular rate Rhythm: regular rhythm Heart sounds: S1 normal heart sound present and S2 normal heart sound present GI Other: Normal bowel sounds, soft, nontender, no mass palpated General: Yes no CVA tenderness Back/Spine/Pelvis Back: no CVA tenderness and No back tenderness Neuro General: patient oriented x3 Cognition (Neuro): normal cognition Speech: No Abnormal speech present Gait exam (Neuro): Normal gait present Extrem General: Yes no joint enlargement, Yes no pedal edema, Yes no calf tenderness and Yes normal gait Coding Level of Care Code Est Pt Level 4 (42409) Complex EM visit Add On G2211 Diagnoses Hypomagnesemia E83.42 Cigarette smoker motivated to quit F17.210 COPD mixed type J44.9 Assessment & Plan Assessment & Plan (1) Hypomagnesemia: Code(s): E83.42 - Hypomagnesemia Category: Medical Plan: Currently taking magnesium oxide 400 mg daily. Labs ordered to check magnesium level (2) Cigarette smoker motivated to quit: Code(s): F17.210 - Nicotine dependence, cigarettes, uncomplicated Plan: Has cut back down to smoking to 10 cigarettes a day, continued on varenicline 1 mg twice a day with food. Continue gradually decreasing cigarette use. (3) COPD mixed type: Comment: follows w/[facility] Code(s): J44.9 - Chronic obstructive pulmonary disease, unspecified Category: Medical Plan: Followed at [facility]. Currently on Trelegy Ellipta inhaler, Orders: Orders Magnesium 09/28/24 E83.42 - Hypomagnesemia Medications: Refilled varenicline tartrate 1 mg PO BID 60 tabs 1RF 30 days
[2024-09-28 12:06] VITALS: BP 136/58; PULSE 94; RESP 18; TEMP 36.9; O2SAT 94; BMI 24.7
== END 2024-09-28 12:39 | disposition home or self-care (01) ==
PROVIDERS: Visit Provider Internal Medicine
DX: E83.42 Hypomagnesemia (principal); F17.210 Nicotine dependence, cigarettes, uncomplicated; J44.9 Chronic obstructive pulmonary disease, unspecified

== ENCOUNTER → 2024-09-28 11:40 | Outpatient (BNVA) | payer OTHER, SELFPAY | PROVIDERS: Visit Provider Internal Medicine | DX: E83.42 Hypomagnesemia (principal); J44.9 Chronic obstructive pulmonary disease, unspecified; F17.210 Nicotine dependence, cigarettes, uncomplicated; Z71.6 Tobacco abuse counseling | CPT/HCPCS: 99212 ==

== ENCOUNTER 2024-10-10 11:55 | Emergency (ER) | payer OTHER, SELFPAY ==
[2024-10-10] VITALS (8 sets, daily range): BP systolic 119–158; BP diastolic 45–77; PULSE 76–97; RESP 16–23; TEMP 36.6–36.8; O2SAT 89–96; BMI 24.7
--- NOTE | ~2024-10-10 | XR_ITS ---
EXAMINATION: XR CHEST CLINICAL INFORMATION: SOB COMPARISON: 08/27/2024. TECHNIQUE: 2 views of the chest were obtained. FINDINGS: The cardiac, hilar, and mediastinal contours are normal. Aortic mural calcifications. The lungs are clear bilaterally. There is no pneumothorax or pleural effusion. There is no focal osseous or soft tissue abnormality. There is a lower cervical anterior fusion device. There is widening of the left AC joint suggesting prior subacromial decompression. XR/XR chest 2V IMPRESSION: No active pulmonary disease. Electronically signed by: Rui Lomax MD 10/10/2024 04:44 PM EST
--- NOTE | 2024-10-10 12:33 | ECG_ITS ---
Test Reason : dizzeness Blood Pressure : */* mmHG Vent. Rate : 94 BPM Atrial Rate : 94 BPM P-R Int : 124 ms QRS Dur : 80 ms QT Int : 380 ms P-R-T Axes : 74 84 70 degrees QTcB Int : 475 ms Normal sinus rhythm Nonspecific T wave abnormality Abnormal ECG When compared with ECG of 31-Aug-2024 18:36, Nonspecific T wave abnormality now evident in Inferior leads Nonspecific T wave abnormality, worse in Lateral leads Referred By: Laly Munson Electronically Signed By: SHANKAR GARCIA
--- NOTE | 2024-10-10 12:33 | ED.GENADULT ---
HPI - General Adult General Chief complaint: Weakness Stated complaint: nausea, dizzy, lightheaded Time Seen by Provider: 10/10/24 16:07 Source: patient History of Present Illness ED Provider: Nghia HPI narrative: 64yo female with pmhx of COPD on 2 L, GERD, hypertension presenting for shortness of breath - Patient states that she woke up this morning with shortness of breath, weakness and lightheadedness. She also endorses productive cough - Patient denies chest pain, head pain, neck pain, abdominal pain, nausea vomiting Related Data Home Medications ?Medication ?Instructions ?Recorded ?Confirmed aspirin 81 mg tablet,delayed 81 mg PO BEDTIME 01/10/21 09/28/24 release (Adult Low Dose Aspirin) psyllium husk 0.52 gram capsule 1.04 g PO BID Constipation 02/28/24 09/28/24 (Fiber Laxative (psyllium husk)) metformin 1,000 mg tablet 1,000 mg PO BID 05/06/24 09/28/24 acetaminophen 650 mg 650 mg PO TID PRN Pain 05/30/24 09/28/24 tablet,extended release ferrous sulfate 324 mg (65 mg 324 mg PO DAILY 05/30/24 09/28/24 iron) tablet,delayed release linaclotide 72 mcg capsule 72 mcg PO DAILY 07/12/24 09/28/24 (Linzess) famotidine 40 mg tablet 40 mg PO BEDTIME 07/26/24 09/28/24 simethicone 180 mg capsule 180 mg PO QID 07/26/24 09/28/24 (Anti-Gas Ultra Strength) sitagliptin phosphate 100 mg 100 mg PO DAILY 07/26/24 09/28/24 tablet (Januvia) fluticasone fur. 100 mcg-umeclid inhalation DAILY 09/28/24 09/28/24 62.5 mcg-vilant 25 mcg inhalat.powder (Trelegy Ellipta) Previous Rx's ?Medication ?Instructions ?Recorded blood-glucose meter (FreeStyle #1 ea 10/03/21 Lite Meter kit) lancets 28 gauge (FreeStyle #100 ea 01/06/22 Lancets) FreeStyle Lite Strips (blood sugar #100 ea 03/10/22 diagnostic) flash glucose sensor (FreeStyle #6 ea 07/07/23 Cristian 2 Sensor kit) flash glucose scanning reader #1 ea 03/26/23 ([employer] Cristian 2 [place]) magnesium oxide 400 mg (241.3 mg 400 mg PO DAILY #7 tabs 06/01/24 magnesium) tablet ipratropium 0.5 mg-albuterol 3 mg 3 ml inhalation Q6H wheezing 1 06/21/24 (2.5 mg base)/3 mL nebulization month #180 mL soln losartan 50 mg tablet 50 mg PO DAILY #90 tabs 07/11/24 rosuvastatin 5 mg tablet 5 mg PO DAILY #90 tabs 07/11/24 metoclopramide HCl 10 mg tablet 20 mg (2 x 10 mg) PO TIDWMEAL #180 07/12/24 (Reglan) tabs amlodipine 5 mg tablet 5 mg PO DAILY #90 tabs 07/21/24 cholecalciferol (vitamin D3) 50 50 mcg PO DAILY #90 caps 07/21/24 mcg (2,000 unit) capsule benzonatate 100 mg capsule 100 mg PO TID PRN cough #30 caps 08/13/24 methocarbamol 500 mg tablet 500 mg PO TID PRN Muscle Spasm #30 08/13/24 tabs pantoprazole 40 mg tablet,delayed 40 mg PO BID #180 tabs 08/18/24 release baclofen 10 mg tablet 10 mg PO TID 30 days #90 tabs 08/24/24 aluminum hydrox-magnesium carb 254 10 ml PO QID PRN dyspepsia #355 mL 08/31/24 mg-237.5 mg/5 mL oral suspension (Gaviscon Extra Strength) varenicline tartrate 1 mg tablet 1 mg PO BID 30 days #60 tabs 09/28/24 gabapentin 800 mg tablet 800 mg PO TID 30 days #90 tabs 10/05/24 cefuroxime axetil 500 mg tablet 500 mg PO BID 5 days #10 tabs 10/10/24 doxycycline hyclate 100 mg capsule 100 mg PO BID 5 days #10 caps 10/10/24 Allergies Allergy/AdvReac Type Severity Reaction Status Date / Time amoxicillin [AMOXICILLIN] Allergy Intermediate RASH Verified 10/10/24 12:30 Review of Systems Review of Systems: Patient endorses shortness of breath, weakness and lightheadedness Patient denies chest pain, head pain, neck pain, abdominal pain, nausea, vomiting, fevers, chills Yes all other systems are reviewed and are negative [facility] Past Medical History Attestation statement: The following information was validated with the patient. [facility] Narrative: COPD 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 Essential hypertension Smoker unmotivated to quit Postlaminectomy syndrome of cervical region Seasonal allergic rhinitis Degenerative disc disease, cervical Postmenopause Dyslipidemia Gastroparesis GERD (gastroesophageal reflux disease) Surgical History H/O cervical discectomy History of esophagogastroduodenoscopy (EGD) Hx of colonoscopy Family History Family History Mother Diabetes Sister Diabetes Mental health disorder Brother Diabetes Father HTN (hypertension) Social History Social History Household Members: Significant Other Housing: Apartment Housing Other:: mobile home Are you a primary hemodialysis patient care specialist to a significant other at home: No Do you presently have visiting nurse or other home services: Yes ([employer]) Alcohol intake: never Comment: Commode/ Hi Flow O2 Patient Tobacco Use Status: Current everyday Tobacco user Tobacco use type: Cigarette Cigarette Packs Per Day: 0.5 Cigarettes Per Day: 10 Years Smoked: 51 Smoked in Last 30 Days: Yes e-Cigarette/Vaping Use: Never Used Second Hand Smoke Exposure: Yes Use of substances other than those prescribed or required for medical reasons: No Advance Directives: Yes Advance Directives on File: Yes Advance Directives Date on File: 08/02/23 Do you have a plan to hurt others: No Plan Patient : No service: No Current occupational status: unemployed and disabled Gender identity: Female Cognitive needs: No Hearing needs: No Vision needs: Yes Physical Exam ED Vital Signs: Vital Signs - 24 hr 10/10/24 12:27 10/10/24 15:29 10/10/24 16:43 Temperature 97.8 F 97.9 F Pulse Rate 97 91 76 Respiratory Rate 18 18 23 H Blood Pressure 119/61 141/61 H Pulse Oximetry 95 96 Oxygen Delivery Method Nasal Cannula Nasal Cannula Oxygen Flow Rate 10/10/24 16:56 10/10/24 18:27 10/10/24 19:02 Temperature 98.0 F 98.2 F Pulse Rate 91 95 90 Respiratory Rate 22 H 20 16 Blood Pressure 129/58 L 158/77 H 153/45 H Pulse Oximetry 92 89 L 89 L Oxygen Delivery Method Nasal Cannula Nasal Cannula Nasal Cannula Oxygen Flow Rate 2 2 2 10/10/24 19:58 Temperature Pulse Rate Respiratory Rate Blood Pressure Pulse Oximetry 91 L Oxygen Delivery Method Oxygen Flow Rate BMI result Body Mass Index 24.7 Well-appearing female in no acute distress Alert and oriented x4; no focal neurologic deficits appreciated Unlabored breathing with wheezing and left upper field and rhonchorous lower right lobe Normal S1-S2 regular rate and rhythm Abdomen is soft nontender nondistended No lower extremity edema appreciated Course Course Course Narrative: This is a rapid medical exam performed by Srinivas Munson NP: Additional HPI, ROS, PE not included below will be deferred to primary provider. Patient is a 64-year-old female presenting to the emergency department with complaint of weakness, lightheadedness/dizziness since this morning as well as increased shortness of breath and describes her abdomen as ?feeling empty. ? She denies nausea, vomiting, diarrhea, constipation. Denies chest pain. Plan: EKG, labs, UA Medications Administered Discontinued Medications Generic Name Dose Route Start Last Admin Trade Name Freq PRN Reason Stop Dose Admin Albuterol/Ipratropium 6 ml 10/10/24 16:29 10/10/24 16:44 Albuterol/Iprat 2.5/0.5mg 3 Ml Ampul.Neb INHALE 10/10/24 16:30 Not Given ONCE ONE Ceftriaxone Sodium 1 gm 10/10/24 17:50 10/10/24 18:34 Ceftriaxone Sodium 1 Gm Vial IVPUSH 10/10/24 17:51 1 gm ONCE ONE Administration Albuterol Sulfate 2.5 mg/ 0 mg 10/10/24 16:42 10/10/24 16:50 Albuterol/Ipratropium 3 ml INHALE 10/10/24 16:43 5 dose ONCE ONE Administration Doxycycline Monohydrate 100 mg 10/10/24 17:50 10/10/24 18:34 Doxycycline Monohydrate 100 Mg Capsule PO 10/10/24 17:51 100 mg ONCE ONE Administration Methylprednisolone Sodium Succinate 125 mg 10/10/24 16:29 10/10/24 17:03 Methylprednisolone Sod Succ 125 Mg/2 Ml Vial IVPUSH 10/10/24 16:30 125 mg ONCE ONE Administration Medical Decision Making Medical Decision Making MDM Narrative: 64-year-old female presenting for shortness of breath -I am concerned for COPD exacerbation, evaluated, COVID, flu, pneumonia, electrolyte/metabolic disturbance -low suspicion for ACS, PE given reassuring HPI and physical exam -labs and imaging studies ordered -duoneb, steroids and abx ordered -I did not appreciate any signs of ischemia patient's ECG Labs and Imaging interpretation: -labs notable for stable H&H, normal white count, baseline creatinine, electrolytes within normal limits, baseline vbg, normal bnp, normal mag and phosphorus -negative troponins x2 -negative viral swabs -I reviewed patient's x-ray do not appreciate any focal consolidations; the radiology impression reads negative for active pulmonary disease -UA clean On reassessment pt's wheezing has improved. Ambulatory sat on baseline 02 remained >91%. I considered admission however given unremarkable workup I feel that patient can be discharged with cap covering. Prescriptions were sent to her pharmacy. I discharged her with strict return precautions and followup instructions Lab Data 10/10/24 12:55 10/10/24 12:55 Labs: Lab Results 10/10/24 10/10/24 10/10/24 Range/Units 12:55 15:35 16:57 WBC 9.7 (4.8-10.8) X10*3/uL RBC 4.55 (4.20-5.50) X10*6/uL Hgb 12.1 (12.0-16.0) g/dl Hct 39.5 (37.0-47.0) % MCV 86.8 (80.0-98.0) fL MCH 26.6 L (27.0-33.0) pg MCHC 30.6 L (31.0-35.0) g/dl RDW 16.0 (11.0-16.0) % Plt Count 339 (160-400) X10*3/uL MPV 9.6 (9.4-12.3) fL Immature Gran % (Auto) 0.3 (0.0-0.4) % Neut % (Auto) 73.8 H (45-73) % Lymph % (Auto) 18.4 L (20-40) % Bollinger % (Auto) 6.3 (2-11) % Eos % (Auto) 0.4 (0-4) % Baso % (Auto) 0.8 (0-2) % Lymph # (Auto) 1.8 (1.2-4.9) X10*3/uL Bollinger # (Auto) 0.6 (0.1-1.2) X10*3/uL Eos # (Auto) 0.0 (0.0-0.4) X10*3/uL Baso # (Auto) 0.1 (0.0-0.2) X10*3/uL Abs Immat Gran (auto) 0.03 (0.00-0.03) X10*3/uL Absolute Neuts (auto) 7.2 (2.0-8.3) x10*3/uL Absolute Nucleated RBC 0.000 (0.0-0.012) X10*3/uL Nucleated RBC % (auto) 0.0 (0.0-0.2) /100WBC PT 11.2 (10.9-12.4) SEC INR 1.0 (0.9-1.1) VBG pH (7.32-7.43) VBG pCO2 mmHg VBG pO2 mmHg VBG HCO3 (22-26) mmol/L VBG O2 Saturation % VBG Base Excess mmol/L Sodium 143 (135-145) mmol/L Potassium 3.5 (3.3-5.1) mmol/L Chloride 103 (96-108) mmol/L Carbon Dioxide 31 H (22-29) mmol/L Anion Gap 13 (12-20) BUN 6 L (9-16) mg/dL Creatinine 0.49 L (0.5-1.4) mg/dL Estim Creat Clear Calc 81.3 Estimated GFR > 60 POC Glucose 99 (60-115) mg/dL Random Glucose 185 H (60-115) mg/dL Calcium 10.5 H (8.4-10.2) mg/dL Phosphorus 3.4 (2.7-4.5) mg/dL Magnesium 1.9 (1.6-2.6) mg/dL Total Bilirubin 0.2 (0.0-1.0) mg/dL AST 14 (5-31) U/L ALT 8 (0-31) U/L Alkaline Phosphatase 90 (39-117) U/L Troponin I High Sens 3.0 3.1 (<3.5-17.0) ng/L B-Natriuretic Peptide < 10 (<100) pg/mL Total Protein 7.4 (6.5-8.0) g/dL Albumin 4.3 (3.5-5.0) g/dL Urine Color Urine Appearance Urine pH (5.0-9.0) Ur Specific Maple (1.005-1.025) Urine Protein (Neg-Trace) mg/dL Urine Glucose (UA) (Negative) mg/dL Urine Ketones (Negative) mg/dL Urine Blood (Negative) Urine Nitrite (Negative) Ur Leukocyte Esterase (Negative) Urine RBC (0-2) /HPF Urine WBC (0-5) /HPF Ur Squamous Epith Cells (0-2) /HPF Other Crystals Urine Bacteria (None Seen) Hyaline Casts (0-2) /LPF Influenza Type A (PCR) NEGATIVE (Negative) Influenza Type B (PCR) NEGATIVE (Negative) RSV RNA Qual (PCR) NEGATIVE (Negative) SARS-CoV-2 RNA (RT-PCR) NEGATIVE (Negative) 10/10/24 10/10/24 Range/Units 17:04 18:49 WBC (4.8-10.8) X10*3/uL RBC (4.20-5.50) X10*6/uL Hgb (12.0-16.0) g/dl Hct (37.0-47.0) % MCV (80.0-98.0) fL MCH (27.0-33.0) pg MCHC (31.0-35.0) g/dl RDW (11.0-16.0) % Plt Count (160-400) X10*3/uL MPV (9.4-12.3) fL Immature Gran % (Auto) (0.0-0.4) % Neut % (Auto) (45-73) % Lymph % (Auto) (20-40) % Bollinger % (Auto) (2-11) % Eos % (Auto) (0-4) % Baso % (Auto) (0-2) % Lymph # (Auto) (1.2-4.9) X10*3/uL Bollinger # (Auto) (0.1-1.2) X10*3/uL Eos # (Auto) (0.0-0.4) X10*3/uL Baso # (Auto) (0.0-0.2) X10*3/uL Abs Immat Gran (auto) (0.00-0.03) X10*3/uL Absolute Neuts (auto) (2.0-8.3) x10*3/uL Absolute Nucleated RBC (0.0-0.012) X10*3/uL Nucleated RBC % (auto) (0.0-0.2) /100WBC PT (10.9-12.4) SEC INR (0.9-1.1) VBG pH 7.44 H (7.32-7.43) VBG pCO2 52 mmHg VBG pO2 46 mmHg VBG HCO3 35 H (22-26) mmol/L VBG O2 Saturation 74.0 % VBG Base Excess 10.1 mmol/L Sodium (135-145) mmol/L Potassium (3.3-5.1) mmol/L Chloride (96-108) mmol/L Carbon Dioxide (22-29) mmol/L Anion Gap (12-20) BUN (9-16) mg/dL Creatinine (0.5-1.4) mg/dL Estim Creat Clear Calc Estimated GFR POC Glucose (60-115) mg/dL Random Glucose (60-115) mg/dL Calcium (8.4-10.2) mg/dL Phosphorus (2.7-4.5) mg/dL Magnesium (1.6-2.6) mg/dL Total Bilirubin (0.0-1.0) mg/dL AST (5-31) U/L ALT (0-31) U/L Alkaline Phosphatase (39-117) U/L Troponin I High Sens (<3.5-17.0) ng/L B-Natriuretic Peptide (<100) pg/mL Total Protein (6.5-8.0) g/dL Albumin (3.5-5.0) g/dL Urine Color Yellow Urine Appearance Turbid Urine pH 7.5 (5.0-9.0) Ur Specific Maple 1.020 (1.005-1.025) Urine Protein Trace (Neg-Trace) mg/dL Urine Glucose (UA) Negative (Negative) mg/dL Urine Ketones Trace (Negative) mg/dL Urine Blood Negative (Negative) Urine Nitrite Negative (Negative) Ur Leukocyte Esterase Trace H (Negative) Urine RBC 0-2 (0-2) /HPF Urine WBC 0-5 (0-5) /HPF Ur Squamous Epith Cells 6-10 (0-2) /HPF Other Crystals Present Urine Bacteria Trace (None Seen) Hyaline Casts 0-2 (0-2) /LPF Influenza Type A (PCR) (Negative) Influenza Type B (PCR) (Negative) RSV RNA Qual (PCR) (Negative) SARS-CoV-2 RNA (RT-PCR) (Negative) Discharge Plan Discharge Clinical Impression: Acute exacerbation of chronic obstructive pulmonary disease Patient Disposition: Home, Self-Care Additional Instructions: Please pickle cutter your new antibiotics and take as instructed. Please follow up with the primary care provider in the next 24-48 hours for reassessment. If you develop any new or worsening symptoms please return to emergency department Prescriptions: New cefuroxime axetil 500 mg tablet 500 mg PO BID 5 Days Qty: 10 0RF doxycycline hyclate 100 mg capsule 100 mg PO BID 5 Days Qty: 10 0RF No Action (DME) lancets [FreeStyle Lancets] 28 gauge misc See Rx Instructions .Route Qty: 100 5RF Rx Instructions: As directed twice a day AC (DME) FreeStyle Lite Strips Strip See Rx Instructions .Route Qty: 100 0RF Rx Instructions: check fasting blood sugar twice a day before meals (DME) FreeStyle Cristian 2 Sensor Kit See Rx Instructions .Route Qty: 6 3RF Rx Instructions: Test blood sugar 4 times per day (DME) FreeStyle Cristian 2 [place] Misc See Rx Instructions .Route Qty: 1 0RF Rx Instructions: test blood sugar 4 times per day rosuvastatin 5 mg tablet 5 mg PO DAILY Qty: 90 1RF losartan 50 mg tablet 50 mg PO DAILY Qty: 90 1RF amlodipine 5 mg tablet 5 mg PO DAILY Qty: 90 1RF cholecalciferol (vitamin D3) 50 mcg (2,000 unit) capsule 50 mcg PO DAILY Qty: 90 1RF baclofen 10 mg tablet 10 mg PO TID 30 Days Qty: 90 6RF gabapentin 800 mg tablet 800 mg PO TID 30 Days Qty: 90 6RF psyllium husk [Fiber Laxative (psyllium husk)] 0.52 gram capsule 1.04 g PO BID metformin 1,000 mg tablet 1,000 mg PO BID Gaviscon Extra Strength 254-237.5 mg/5 mL suspension 10 ml PO QID PRN (Reason: dyspepsia) Qty: 355 0RF acetaminophen 650 mg Tablet Extended Release 650 mg PO TID PRN (Reason: Pain) ferrous sulfate 324 mg (65 mg iron) tablet,delayed release (DR/EC) 324 mg PO DAILY magnesium oxide 400 mg (241.3 mg magnesium) Tablet 400 mg PO DAILY Qty: 7 0RF simethicone [Anti-Gas Ultra Strength] 180 mg capsule 180 mg PO QID famotidine 40 mg tablet 40 mg PO BEDTIME Januvia 100 mg tablet 100 mg PO DAILY methocarbamol 500 mg Tablet 500 mg PO TID PRN (Reason: Muscle Spasm) Qty: 30 0RF benzonatate 100 mg Capsule 100 mg PO TID PRN (Reason: cough) Qty: 30 0RF aspirin [Adult Low Dose Aspirin] 81 mg tablet,delayed release (DR/EC) 81 mg PO BEDTIME (DME) blood-glucose meter [FreeStyle Lite Meter] Kit See Rx Instructions .Route Qty: 1 0RF Rx Instructions: As directed twice a day before meals Linzess 72 mcg capsule 72 mcg PO DAILY metoclopramide HCl [Reglan] 10 mg tablet 20 mg PO TIDWMEAL Qty: 180 6RF Trelegy Ellipta 100-62.5-25 mcg blister with device inhalation DAILY varenicline tartrate 1 mg tablet 1 mg PO BID 30 Days Qty: 60 1RF ipratropium-albuterol 0.5 mg-3 mg(2.5 mg base)/3 mL solution for nebulization 3 ml inhalation Q6H 30 Days Qty: 180 1RF pantoprazole 40 mg tablet,delayed release (DR/EC) 40 mg PO BID Qty: 180 1RF Rx Instructions: take in am , 1 hour before food or medicine intake Print Language: American
[2024-10-10 13:02] LABS: MANUAL DIFF FLAG NO
[2024-10-10 13:03] LABS: Basophils Absolute Auto 0.1 X10*3/uL (0.0-0.2); Basophils Percent Auto 0.8 % (0-2); Eosinophils Percent Auto 0.4 % (0-4); Hematocrit 39.5 % (37.0-47.0); Hemoglobin 12.1 g/dl (12.0-16.0); Imm Gran Abs Auto 0.03 X10*3/uL (0.00-0.03); Imm Gran Pct Auto 0.3 % (0.0-0.4); Lymphocytes Absolute Auto 1.8 X10*3/uL (1.2-4.9); Lymphocytes Percent Auto 18.4 % (20-40); Mean Corpuscular HGB Conc 30.6 g/dl (31.0-35.0); Mean Corpuscular Hemoglobin 26.6 pg (27.0-33.0); Mean Corpuscular Volume 86.8 fL (80.0-98.0); Mean Platelet Volume 9.6 fL (9.4-12.3); Monocytes Absolute Auto 0.6 X10*3/uL (0.1-1.2); Monocytes Percent Auto 6.3 % (2-11); Neutrophils Absolute Auto 7.2 x10*3/uL (2.0-8.3); Neutrophils Percent Auto 73.8 % (45-73); Platelet Count 339 X10*3/uL (160-400); Red Blood Count 4.55 X10*6/uL (4.20-5.50); White Blood Count 9.7 X10*3/uL (4.8-10.8)
[2024-10-10 13:12] LABS: Prothrombin Time 11.2 SEC (10.9-12.4)
[2024-10-10 13:18] LABS: Alanine Aminotransferase 8 U/L (0-31); Albumin Level 4.3 g/dL (3.5-5.0); Alkaline Phosphatase 90 U/L (39-117); Anion Gap 13 (12-20); Aspartate Amino Transferase 14 U/L (5-31); Bilirubin Total 0.2 mg/dL (0.0-1.0); Blood Urea Nitrogen 6 mg/dL (9-16); Calcium 10.5 mg/dL (8.4-10.2); Carbon Dioxide 31 mmol/L (22-29); Chloride 103 mmol/L (96-108); Creatinine Clr Calc Pharmacy 81.3; Estimated Glomerular Filt Rate > 60; Glucose Random 185 mg/dL (60-115); Potassium 3.5 mmol/L (3.3-5.1); Sodium 143 mmol/L (135-145); Total Protein 7.4 g/dL (6.5-8.0)
[2024-10-10 13:40] LABS: Influenza A PCR NEGATIVE (Negative); Influenza B PCR NEGATIVE (Negative); Resp Syncy Virus RNA Qual PCR NEGATIVE (Negative); SARS COV2 PCR INHOUSE NEGATIVE (Negative)
[2024-10-10 15:38] LABS: Glucose, Whole Blood 99 mg/dL (60-115)
[2024-10-10] MEDS: Albuterol Sulfate 2.5 MG, Albuterol/Iprat 2.5/0.5MG 3 ML 3 ML INHALE (16:50)
[2024-10-10] MEDS: methylPREDNISolone Sod Succ 125 MG/2 ML VIAL IVPUSH (17:03)
[2024-10-10 17:10] LABS: VBG Base Excess 10.1 mmol/L; VBG HCO3 35 mmol/L (22-26); VBG pCO2 52 mmHg; VBG pH 7.44 (7.32-7.43); VBG pO2 46 mmHg
[2024-10-10 17:11] LABS: Venous Blood Gas Refer to POC result
[2024-10-10 17:17] LABS: Magnesium 1.9 mg/dL (1.6-2.6); Phosphorus 3.4 mg/dL (2.7-4.5)
[2024-10-10 17:23] LABS: B Type Natriuretic Peptide < 10 pg/mL (<100); Troponin-I High Sensitivity 3.1 ng/L (<3.5-17.0)
[2024-10-10] MEDS: cefTRIAXone sodium 1 GM VIAL IVPUSH (18:34)
[2024-10-10] MEDS: Doxycycline Monohydrate 100 MG CAPSULE PO (18:34)
[2024-10-10 18:54] LABS: Appearance Urine Turbid; Color Urine Yellow; Glucose Urine UA Negative (Negative); Leukocyte Esterase Urine Trace (Negative); Nitrite Urine Negative (Negative); PH 7.5 (5.0-9.0); UMIC TRIGGER UACC YES; Urine Blood Negative (Negative); Urine Ketones Trace mg/dL (Negative); Urine Protein Trace mg/dL (Neg-Trace)
[2024-10-10 19:06] LABS: Bacteria Urine Trace (None Seen); Hyaline Casts Urine 0-2 /LPF (0-2); Other Crystals Urine Present; RBC Urine 0-2 /HPF (0-2); WBC Urine 0-5 /HPF (0-5)
== END 2024-10-10 20:51 | disposition home or self-care (01) ==
PROVIDERS: Registered Nurse Emergency; Emergency Provider Student in an Organized Health Care Education/Training Program; PCP Internal Medicine
DX: J44.1 Chronic obstructive pulmonary disease with (acute) exacerbation (principal); R11.2 Nausea with vomiting, unspecified; R42 Dizziness and giddiness; R05.9 Cough, unspecified; E11.9 Type 2 diabetes mellitus without complications; R94.31 Abnormal electrocardiogram [ECG] [EKG]; R06.02 Shortness of breath; F17.210 Nicotine dependence, cigarettes, uncomplicated; Z03.818 Encounter for observation for suspected exposure to other biological agents ruled out; Z99.81 Dependence on supplemental oxygen; Z79.84 Long term (current) use of oral hypoglycemic drugs; Z79.899 Other long term (current) drug therapy
CPT/HCPCS: 0241U; 36415; 51701; 71046; 80053; 81001; 82803; 82947; 83735; 83880; 84100; 84484; 85025; 85610; 93005; 94640; 96374; 96375; 99285; J0696; J2919

== ENCOUNTER → 2024-10-10 12:33 | Outpatient (BNV) | payer OTHER, SELFPAY | PROVIDERS: PCP Internal Medicine; Visit Provider Internal Medicine | DX: R94.31 Abnormal electrocardiogram [ECG] [EKG] (principal); R42 Dizziness and giddiness | CPT/HCPCS: 93010 ==

== ENCOUNTER → 2024-10-10 16:10 | Outpatient (BNV) | payer OTHER, SELFPAY | PROVIDERS: Emergency Provider Student in an Organized Health Care Education/Training Program; PCP Internal Medicine; Visit Provider Radiology Diagnostic Radiology | DX: R06.02 Shortness of breath (principal) | CPT/HCPCS: 71046 ==

== ENCOUNTER 2024-10-16 11:02 | Emergency (ER) | payer OTHER, SELFPAY ==
--- NOTE | ~2024-10-16 | CT_ITS ---
EXAMINATION: CT ABDOMEN AND PELVIS WITHOUT AND WITH CONTRAST CLINICAL INFORMATION: Status post cryoablation right kidney lesion. COMPARISON: CT dated September 16, 2024 and April 18, 2024.. TECHNIQUE: Multidetector volumetric imaging was performed of the abdomen and pelvis before and after the IV administration of 85 mL of Omnipaque 350 strength intravenous contrast. Sagittal and coronal reformatted images were obtained on the technologist's workstation. No reported immediate complications. This CT examination was performed using dose optimization techniques as appropriate, variously including the following: *Automated exposure control *Adjustment of mA and/or kV according to patient size (this includes techniques or standardized protocols for targeted exams where dose is matched to indication/reason for exam; i.e. extremities or head) *Use of iterative reconstruction technique. DLP: 691 mGy centimeter. FINDINGS: LUNG BASES: Linear and patchy attenuations in the periphery of the right lower lung lobe with subcentimeter nodules. Stable since prior exam. LIVER, GALLBLADDER, AND BILIARY TREE: Liver measures 16 cm. No focal mass. Decreased attenuation at the falciform ligament region likely focal fatty infiltration. Portal vein, hepatic veins and intrahepatic portion of the IVC are patent. No intrahepatic biliary ductal dilatation. No pericholecystic fluid collection or gallbladder wall thickening. Common bile duct measures 4 mm. PANCREAS: No focal lesion. No peripancreatic fluid collection. No main pancreatic ductal dilatation. SPLEEN: 8 cm. No focal lesion. ADRENAL GLANDS: Soft tissue fullness without nodular component. KIDNEYS AND URETERS: Right kidney: There is a 3.6 x 2.9 x 2.9 cm exophytic predominantly hypodense lesion in the posterior lateral lower pole. There is a crescent-shaped mildly enhancing component lateral to the cystic component. The density range 25-28 Hounsfield units and the enhancing component 117 Hounsfield unit. No hydronephrosis. Left kidney: No renal mass. No hydronephrosis. No nephrolithiasis. 3 mm exophytic cyst in the posterior midportion. Normal enhancement pattern. BLADDER: Fluid-filled. GASTROINTESTINAL TRACT: Abundant stool, large intestine. No intestinal obstruction pattern. Segmental narrowing at the sigmoid colon with redundant appearance. No ascites. No pneumoperitoneum. No pneumatosis intestinalis. The appendix is normal. ABDOMINAL WALL: Small tiny fat-containing periumbilical hernia. LYMPH NODES: No specific prominent mesenteric and retroperitoneal. VASCULAR: Throughout the abdominal aorta wall and iliac arteries with small caliber and segmental intraluminal narrowing. No aneurysm or dissection, abdominal aorta. Calcified plaques in the coronary arteries. Calcified plaques in the mesenteric arteries and the main renal arteries. PELVIC VISCERA: Heterogeneous nodular uterus without gross enlargement. Punctate calcifications in the adnexa and the uterus. OSSEOUS STRUCTURES: Multilevel thoracolumbar spondylosis. No acute fracture. Grade 1 retrolisthesis L2-3. S-shaped curvature of the lumbar spine. CT/CT abdomen pelvis wo/w IV con IMPRESSION: Posttreatment changes of an exophytic lesion in the lower pole right kidney. Continued surveillance since residual neoplasm cannot be entirely excluded. Fleischner guidelines were followed. Electronically signed by: Faustino Norton MD 10/17/2024 10:41 AM ILYA SHORT
--- NOTE | ~2024-10-16 | CT_ITS ---
CLINICAL HISTORY: r o obstruction, diffuse abd pain, bloating CT abdomen and pelvis without contrast Comparison: CT/SR - CT ABDOMEN PELVIS W IV CON - 09/16/24 21:15 EST Findings: Tiny right-sided pulmonary nodules measuring no more than 4 mm. Per Fleischner criteria: Low-risk patients: No routine follow-up required. High-risk patients: Optional CT at 12 months. Hepatomegaly. Decreasing right lower pole perirenal inflammatory changes status posttreatment of the exophytic lower pole lesion. Residual heterogeneous exophytic focus measuring 3.1 cm on sagittal, with perirenal stranding and thickening of the fascia posteriorly. Residual tumor and/or evolving hemorrhage not excluded. No free air. Overall these findings are improved from prior. Continued attention on follow-up is advised. No hydronephrosis. No bowel obstruction, pneumoperitoneum, or pneumatosis. Normal appendix. Scattered colonic diverticulosis without diverticulitis or colitis. Dextroscoliosis. Osteopenia with diffuse multilevel spondylosis. Diffuse atheromatous plaque disease throughout the aorta and branch vessels, without aneurysmal dilatation. IMPRESSION: Evolving posttreatment changes in the right lower pole kidney as described. This document has been electronically signed by: Vitor Arzola MD on 10/17/2024 03:28:26
--- NOTE | 2024-10-16 11:15 | ED.ABDPAIN ---
HPI - Abdominal Pain General Chief Complaint: Abdominal Pain Stated Complaint: stomach pain, nausea Time Seen by Provider: 10/17/24 01:30 Source: patient Mode of arrival: ambulatory Limitations: no limitations History of Present Illness ED Provider: Dr. Loreto Cruz HPI narrative: Patient comes in the emergency room complaining of abdominal pain. Nausea. No vomiting or diarrhea. Related Data Home Medications ?Medication ?Instructions ?Recorded ?Confirmed aspirin 81 mg tablet,delayed 81 mg PO BEDTIME 01/10/21 09/28/24 release (Adult Low Dose Aspirin) psyllium husk 0.52 gram capsule 1.04 g PO BID Constipation 02/28/24 09/28/24 (Fiber Laxative (psyllium husk)) metformin 1,000 mg tablet 1,000 mg PO BID 05/06/24 09/28/24 acetaminophen 650 mg 650 mg PO TID PRN Pain 05/30/24 09/28/24 tablet,extended release ferrous sulfate 324 mg (65 mg 324 mg PO DAILY 05/30/24 09/28/24 iron) tablet,delayed release linaclotide 72 mcg capsule 72 mcg PO DAILY 07/12/24 09/28/24 (Linzess) famotidine 40 mg tablet 40 mg PO BEDTIME 07/26/24 09/28/24 simethicone 180 mg capsule 180 mg PO QID 07/26/24 09/28/24 (Anti-Gas Ultra Strength) sitagliptin phosphate 100 mg 100 mg PO DAILY 07/26/24 09/28/24 tablet (Januvia) fluticasone fur. 100 mcg-umeclid inhalation DAILY 09/28/24 09/28/24 62.5 mcg-vilant 25 mcg inhalat.powder (Trelegy Ellipta) Previous Rx's ?Medication ?Instructions ?Recorded blood-glucose meter (FreeStyle #1 ea 10/03/21 Lite Meter kit) lancets 28 gauge (FreeStyle #100 ea 01/06/22 Lancets) FreeStyle Lite Strips (blood sugar #100 ea 03/10/22 diagnostic) flash glucose sensor (FreeStyle #6 ea 02/19/23 Cristian 2 Sensor kit) flash glucose scanning reader #1 ea 03/26/23 (FreeStyle Cristian 2 [place]) magnesium oxide 400 mg (241.3 mg 400 mg PO DAILY #7 tabs 06/01/24 magnesium) tablet ipratropium 0.5 mg-albuterol 3 mg 3 ml inhalation Q6H wheezing 1 06/21/24 (2.5 mg base)/3 mL nebulization month #180 mL soln losartan 50 mg tablet 50 mg PO DAILY #90 tabs 07/11/24 rosuvastatin 5 mg tablet 5 mg PO DAILY #90 tabs 07/11/24 metoclopramide HCl 10 mg tablet 20 mg (2 x 10 mg) PO TIDWMEAL #180 07/12/24 (Reglan) tabs amlodipine 5 mg tablet 5 mg PO DAILY #90 tabs 07/21/24 cholecalciferol (vitamin D3) 50 50 mcg PO DAILY #90 caps 07/21/24 mcg (2,000 unit) capsule benzonatate 100 mg capsule 100 mg PO TID PRN cough #30 caps 08/13/24 methocarbamol 500 mg tablet 500 mg PO TID PRN Muscle Spasm #30 08/13/24 tabs pantoprazole 40 mg tablet,delayed 40 mg PO BID #180 tabs 08/18/24 release baclofen 10 mg tablet 10 mg PO TID 30 days #90 tabs 08/24/24 aluminum hydrox-magnesium carb 254 10 ml PO QID PRN dyspepsia #355 mL 08/31/24 mg-237.5 mg/5 mL oral suspension (Gaviscon Extra Strength) varenicline tartrate 1 mg tablet 1 mg PO BID 30 days #60 tabs 09/28/24 gabapentin 800 mg tablet 800 mg PO TID 30 days #90 tabs 10/05/24 cefuroxime axetil 500 mg tablet 500 mg PO BID 5 days #10 tabs 10/10/24 doxycycline hyclate 100 mg capsule 100 mg PO BID 5 days #10 caps 10/10/24 Allergies Allergy/AdvReac Type Severity Reaction Status Date / Time amoxicillin [AMOXICILLIN] Allergy Intermediate RASH Verified 10/16/24 11:17 Review of Systems Review of Systems Constitutional : No Weight loss, No Fever, No Chills, No Night Sweats, No Fatigue, No Malaise ENT/Mouth : No Hearing loss, No Ear Pain, No Nasal Congestion, No Sinus Pain, No Hoarseness, No sore throat, No Rhinorrhea, No Swallowing Difficulty Eyes: No Eye Pain, No Swelling, No Redness, No Foreign Body, No Discharge, No Vision Changes Cardiovascular : No Chest Pain, No SOB, No Dyspnea on Exertion, No Orthopnea, No Edema, No Palpitations Respiratory : No Cough, No Sputum, No Wheezing, No Smoke Exposure, No Dyspnea Gastrointestinal : Complaining of Nausea, No Vomiting, No Diarrhea, No Constipation, complaining of epigastric pain Genitourinary : no irregular bleeding, No Dysuria, No Urinary Frequency, No Hematuria, No Urinary Incontinence, No Urgency, No Flank Pain, No Urinary Flow Changes, No Hesitancy Musculoskeletal : No joint pain, No Myalgias, No Joint Swelling Skin : No Skin Lesions, No rash Neuro : No Weakness, No Numbness, No Paresthesias, No Loss of Consciousness, No Dizziness, No Headache Psych : No Anxiety/Panic, No Depression, No SI/HI/AH/VH, No Social Issues, Heme/Lymph: No Bruising, No Bleeding,No Lymphadenopathy Endocrine : No Polyuria, No Polydipsia, No Temperature Intolerance [facility] Past Medical History Medical History Heavy cigarette smoker History of pneumonia COPD mixed type Hypochromic anemia Gastritis Diabetic gastroparesis Diastolic CHF with preserved left ventricular function, NYHA class 2 Chronic hypercapnic respiratory failure Mixed dyslipidemia Type 2 diabetes mellitus with other diabetic kidney complication Essential hypertension Smoker unmotivated to quit Postlaminectomy syndrome of cervical region Seasonal allergic rhinitis Degenerative disc disease, cervical Postmenopause Dyslipidemia Gastroparesis GERD (gastroesophageal reflux disease) Surgical History H/O cervical discectomy History of esophagogastroduodenoscopy (EGD) Hx of colonoscopy Family History Family History Mother Diabetes Sister Diabetes Mental health disorder Brother Diabetes Father HTN (hypertension) Social History Social History Household Members: Significant Other Housing: Apartment Housing Other:: mobile home Are you a primary career guidance counselor to a significant other at home: No 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) Alcohol intake: never Comment: Commode/ Hi Flow O2 Patient Tobacco Use Status: Current everyday Tobacco user Tobacco use type: Cigarette Cigarette Packs Per Day: 0.5 Cigarettes Per Day: 10 Years Smoked: 51 Smoked in Last 30 Days: Yes e-Cigarette/Vaping Use: Never Used Second Hand Smoke Exposure: Yes Use of substances other than those prescribed or required for medical reasons: No Advance Directives: Yes Advance Directives on File: Yes Advance Directives Date on File: 08/02/23 Patient : No service: No Current occupational status: unemployed and disabled Gender identity: Female Cognitive needs: No Hearing needs: No Vision needs: Yes Physical Exam ED Vital Signs: Vital Signs - 24 hr 10/16/24 23:27 10/17/24 00:00 10/17/24 01:56 Temperature 97.7 F 98.3 F 98.3 F Pulse Rate 98 97 93 Respiratory Rate 18 15 18 Blood Pressure 139/54 L 137/66 123/66 Pulse Oximetry 96 93 94 Oxygen Delivery Method Nasal Cannula Nasal Cannula Nasal Cannula Oxygen Flow Rate 2 2 10/17/24 02:47 10/17/24 03:46 10/17/24 06:12 Temperature 98.2 F 98.1 F Pulse Rate 90 91 93 Respiratory Rate 18 16 16 Blood Pressure 152/63 H 145/68 H 140/68 H Pulse Oximetry 95 95 95 Oxygen Delivery Method Room Air Nasal Cannula Nasal Cannula Oxygen Flow Rate 2 2 10/17/24 08:04 10/17/24 11:10 Temperature 98.3 F 97.5 F Pulse Rate 97 95 Respiratory Rate 24 H 15 Blood Pressure 148/62 H 139/67 Pulse Oximetry 93 94 Oxygen Delivery Method Nasal Cannula Nasal Cannula Oxygen Flow Rate 2 2 BMI result Body Mass Index 23.8 Const Other: Appearance: Alert. Oriented X3. No acute distress. Well-appearing Eyes: Pupils equal, round and reactive to light. ENT: Pharynx normal. Neck: Normal inspection. Neck supple. No lymph nodes noted. No crepitus CVS: Normal heart rate and rhythm. Pulses normal. Normal S1 and S2 Respiratory: No respiratory distress. Breath sounds normal. No Wheezing. No rales Abdomen: Soft , mild pain to palpation in the epigastric area, negative Byrd's sign, no rebound or guarding, No rigidity. No distention. Skin: Skin warm and dry. Normal skin color. Normal skin turgor. Extremities: No lower extremity edema. No Lacerations. No Rash Neuro: Oriented X 3. No motor deficit. No sensory deficit. Moving all extremities. No slurred speech. CN 2 through 12 grossly intact Psych: calm, cooperative, normal affect Course Course Course Narrative: 64 yo female with PMH of HTN, renal cell carcinoma, T2DM, chronic abdominal pain n/v, gastroparesis, GERD, COPD on home O2 2LNC, just completed doxy course for COPD 2 days ago last night started with severe upper abdominal pain with n/v. No diarrhea + flatus. She has had this before in the past but last night was much worse. Labs, EKG ordered this is a RAPID medical screening exam the rest of the history and physical exam is to be done by the main provider. Reevaluation(s) Reevaluation #1: Patient was signed out by Dr. Cruz. Dr. Gil saw the an MRI but I was called by the radiologist Dr. Strong that there is no indication for the MRI she should have a CT scan of the abdomen and pelvis with contrast which I ordered. Time: 10:43 Reevaluation #2: Patient was re-examined she is doing much better tolerating p.o. well as 11 10 she has stable vital sign not tachycardia no fever CT scan of the abdomen and pelvis done with IV contrast showed no acute pathology anticipate discharge Time: 11:33 Medical Decision Making Medical Decision Making [facility] Narrative: My interpretation of labs: Chronic leukocytosis 13.4, normal rest of hematology, my normal chemistry, normal troponin, normal lipase, serology negative for influenza RSV and COVID Urinalysis has trace blood, positive squamous epithelial cells. Patient is adamant that she has no UTI symptoms, no dysuria no flank pain CT scan of the abdomen shows residual heterogeneous was measuring 3.1 cm, could be perirenal stranding, residual tumor or evolving hemorrhage I discussed the CT scan with Radiology: Radiology recommendation is MRI in the morning, specifically, dynamic renal MRI protocol We do not have this order available. We were instructed by Radiology to call at 08:00 to ask for the specific order. The above-mentioned was discussed with the patient, patient agreeable with plan Patient remained stable, blood pressure 140/68, heart rate 93, oxygen saturation 95% on room air. Sign-out given to my colleague Dr. Jacobo Differential Diagnosis Differential Diagnoses: The differential diagnosis associated with the presentation includes (As above) Admission/Observation Consideration of admission/observation: Escalation of care including admission/observation considered Lab Data [facility] Lab Attestation statement: I reviewed the patient's lab results. 10/16/24 11:31 10/16/24 11:31 Labs: Lab Results 10/16/24 10/17/24 Range/Units 11:31 04:28 WBC 13.4 H (4.8-10.8) X10*3/uL RBC 4.61 (4.20-5.50) X10*6/uL Hgb 12.5 (12.0-16.0) g/dl Hct 39.4 (37.0-47.0) % MCV 85.5 (80.0-98.0) fL MCH 27.1 (27.0-33.0) pg MCHC 31.7 (31.0-35.0) g/dl RDW 15.4 (11.0-16.0) % Plt Count 360 (160-400) X10*3/uL MPV 9.6 (9.4-12.3) fL Immature Gran % (Auto) 0.4 (0.0-0.4) % Neut % (Auto) 65.3 (45-73) % Lymph % (Auto) 25.7 (20-40) % [place] % (Auto) 7.0 (2-11) % Eos % (Auto) 1.0 (0-4) % Baso % (Auto) 0.6 (0-2) % Lymph # (Auto) 3.4 (1.2-4.9) X10*3/uL [place] # (Auto) 0.9 (0.1-1.2) X10*3/uL Eos # (Auto) 0.1 (0.0-0.4) X10*3/uL Baso # (Auto) 0.1 (0.0-0.2) X10*3/uL Abs Immat Gran (auto) 0.06 H (0.00-0.03) X10*3/uL Absolute Neuts (auto) 8.7 H (2.0-8.3) x10*3/uL Absolute Nucleated RBC 0.000 (0.0-0.012) X10*3/uL Nucleated RBC % (auto) 0.0 (0.0-0.2) /100WBC Sodium 136 (135-145) mmol/L Potassium 3.8 (3.3-5.1) mmol/L Chloride 103 (96-108) mmol/L Carbon Dioxide 23 (22-29) mmol/L Anion Gap 14 (12-20) BUN 18 H (9-16) mg/dL Creatinine 0.52 (0.5-1.4) mg/dL Estim Creat Clear Calc 75.3 Estimated GFR > 60 Random Glucose 104 (60-115) mg/dL Calcium 10.4 H (8.4-10.2) mg/dL Magnesium 1.5 L (1.6-2.6) mg/dL Total Bilirubin 0.3 (0.0-1.0) mg/dL Direct Bilirubin 0.1 (0.0-0.5) mg/dL AST 14 (5-31) U/L ALT 7 (0-31) U/L Alkaline Phosphatase 83 (39-117) U/L Troponin I High Sens 2.9 (<3.5-17.0) ng/L Total Protein 7.2 (6.5-8.0) g/dL Albumin 4.4 (3.5-5.0) g/dL Lipase 23 (8-78) U/L Urine Color Yellow Urine Appearance Cloudy Urine pH 5.5 (5.0-9.0) Ur Specific [place] 1.025 (1.005-1.025) Urine Protein Trace (Neg-Trace) mg/dL Urine Glucose (UA) Negative (Negative) mg/dL Urine Ketones Trace (Negative) mg/dL Urine Blood Trace H (Negative) Urine Nitrite Negative (Negative) Ur Leukocyte Esterase Negative (Negative) Urine RBC 3-5 H (0-2) /HPF Urine WBC 0-5 (0-5) /HPF Ur Squamous Epith Cells 6-10 (0-2) /HPF Calcium Oxalate Crystal Present Other Crystals Present Urine Bacteria None Seen (None Seen) Hyaline Casts 3-5 (0-2) /LPF Influenza Type A (PCR) NEGATIVE (Negative) Influenza Type B (PCR) NEGATIVE (Negative) RSV RNA Qual (PCR) NEGATIVE (Negative) SARS-CoV-2 RNA (RT-PCR) NEGATIVE (Negative) Independent Interpretation I performed an independent interpretation of an: CT Scan Radiology Impression Discussion of test interpretation with radiology: I have reviewed the radiologist's reading. Medications Administered Discontinued Medications Generic Name Dose Route Start Last Admin Trade Name Jordon PRN Reason Stop Dose Admin Iohexol 100 ml 10/17/24 09:59 10/17/24 09:59 Iohexol 350 Mg/Ml 100 Ml Infus..Btl IV 10/17/24 10:00 85 ml ONCE ONE Administration Metoclopramide HCl 10 mg 10/17/24 02:25 10/17/24 02:49 Metoclopramide Hcl 10 Mg/2 Ml Vial IVPUSH 10/17/24 02:26 10 mg ONCE ONE Administration Morphine Sulfate 1 mg 10/17/24 02:25 10/17/24 02:47 Morphine Sulfate 2 Mg/Ml Cartridge IVPUSH 10/17/24 02:26 1 mg ONCE ONE Administration Protocol Ondansetron HCl 4 mg 10/16/24 11:17 10/16/24 11:19 Ondansetron Odt 4 Mg Tab.Rapdis TRANSLINGU 10/16/24 11:18 4 mg ONCE ONE Administration Critical Care Time Critical Care Time Critical Care Time: Yes Total Critical Care Time: 60 Attestation: I have personally provided critical care time. Time includes review of lab data, radiology results, discussion with consultants, and monitoring for potential decompensation. Intervention performed as documented. Discharge Plan Discharge Clinical Impression: Abdominal pain Patient Disposition: Still a Patient Prescriptions: No Action (DME) lancets [FreeStyle Lancets] 28 gauge misc See Rx Instructions .Route Qty: 100 5RF Rx Instructions: As directed twice a day AC (DME) FreeStyle Lite Strips Strip See Rx Instructions .Route Qty: 100 0RF Rx Instructions: check fasting blood sugar twice a day before meals (DME) FreeStyle Cristian 2 Sensor Kit See Rx Instructions .Route Qty: 6 3RF Rx Instructions: Test blood sugar 4 times per day (DME) FreeStyle Cristian 2 [place] Misc See Rx Instructions .Route Qty: 1 0RF Rx Instructions: test blood sugar 4 times per day rosuvastatin 5 mg tablet 5 mg PO DAILY Qty: 90 1RF losartan 50 mg tablet 50 mg PO DAILY Qty: 90 1RF amlodipine 5 mg tablet 5 mg PO DAILY Qty: 90 1RF cholecalciferol (vitamin D3) 50 mcg (2,000 unit) capsule 50 mcg PO DAILY Qty: 90 1RF baclofen 10 mg tablet 10 mg PO TID 30 Days Qty: 90 6RF gabapentin 800 mg tablet 800 mg PO TID 30 Days Qty: 90 6RF psyllium husk [Fiber Laxative (psyllium husk)] 0.52 gram capsule 1.04 g PO BID metformin 1,000 mg tablet 1,000 mg PO BID Gaviscon Extra Strength 254-237.5 mg/5 mL suspension 10 ml PO QID PRN (Reason: dyspepsia) Qty: 355 0RF cefuroxime axetil 500 mg tablet 500 mg PO BID 5 Days Qty: 10 0RF doxycycline hyclate 100 mg capsule 100 mg PO BID 5 Days Qty: 10 0RF acetaminophen 650 mg Tablet Extended Release 650 mg PO TID PRN (Reason: Pain) ferrous sulfate 324 mg (65 mg iron) tablet,delayed release (DR/EC) 324 mg PO DAILY magnesium oxide 400 mg (241.3 mg magnesium) Tablet 400 mg PO DAILY Qty: 7 0RF simethicone [Anti-Gas Ultra Strength] 180 mg capsule 180 mg PO QID famotidine 40 mg tablet 40 mg PO BEDTIME Januvia 100 mg tablet 100 mg PO DAILY methocarbamol 500 mg Tablet 500 mg PO TID PRN (Reason: Muscle Spasm) Qty: 30 0RF benzonatate 100 mg Capsule 100 mg PO TID PRN (Reason: cough) Qty: 30 0RF aspirin [Adult Low Dose Aspirin] 81 mg tablet,delayed release (DR/EC) 81 mg PO BEDTIME (DME) blood-glucose meter [FreeStyle Lite Meter] Kit See Rx Instructions .Route Qty: 1 0RF Rx Instructions: As directed twice a day before meals Linzess 72 mcg capsule 72 mcg PO DAILY metoclopramide HCl [Reglan] 10 mg tablet 20 mg PO TIDWMEAL Qty: 180 6RF Trelegy Ellipta 100-62.5-25 mcg blister with device inhalation DAILY varenicline tartrate 1 mg tablet 1 mg PO BID 30 Days Qty: 60 1RF ipratropium-albuterol 0.5 mg-3 mg(2.5 mg base)/3 mL solution for nebulization 3 ml inhalation Q6H 30 Days Qty: 180 1RF pantoprazole 40 mg tablet,delayed release (DR/EC) 40 mg PO BID Qty: 180 1RF Rx Instructions: take in am , 1 hour before food or medicine intake Print Language: Samoan
[2024-10-16 11:16] VITALS: BP 151/75; PULSE 102; RESP 18; TEMP 36.6; O2SAT 97; BMI 23.8
--- NOTE | 2024-10-16 11:17 | ECG_ITS ---
Test Reason : abd pain Blood Pressure : */* mmHG Vent. Rate : 103 BPM Atrial Rate : 103 BPM P-R Int : 134 ms QRS Dur : 78 ms QT Int : 338 ms P-R-T Axes : 62 81 0 degrees QTcB Int : 442 ms Sinus tachycardia Nonspecific T wave abnormality Abnormal ECG When compared with ECG of 10-Oct-2024 12:47, No significant change was found Referred By: Leigh Haywood Electronically Signed By: YOHAN PATEL MD
[2024-10-16] MEDS: Ondansetron ODT 4 MG TAB.RAPDIS TRANSLINGU (11:19)
[2024-10-16 11:36] LABS: MANUAL DIFF FLAG NO
[2024-10-16 11:37] LABS: Basophils Absolute Auto 0.1 X10*3/uL (0.0-0.2); Basophils Percent Auto 0.6 % (0-2); Eosinophils Absolute Auto 0.1 X10*3/uL (0.0-0.4); Hematocrit 39.4 % (37.0-47.0); Hemoglobin 12.5 g/dl (12.0-16.0); Imm Gran Abs Auto 0.06 X10*3/uL (0.00-0.03); Imm Gran Pct Auto 0.4 % (0.0-0.4); Lymphocytes Absolute Auto 3.4 X10*3/uL (1.2-4.9); Lymphocytes Percent Auto 25.7 % (20-40); Mean Corpuscular HGB Conc 31.7 g/dl (31.0-35.0); Mean Corpuscular Hemoglobin 27.1 pg (27.0-33.0); Mean Corpuscular Volume 85.5 fL (80.0-98.0); Mean Platelet Volume 9.6 fL (9.4-12.3); Monocytes Absolute Auto 0.9 X10*3/uL (0.1-1.2); Neutrophils Absolute Auto 8.7 x10*3/uL (2.0-8.3); Neutrophils Percent Auto 65.3 % (45-73); Platelet Count 360 X10*3/uL (160-400); Red Blood Count 4.61 X10*6/uL (4.20-5.50); Red Cell Distribution Width 15.4 % (11.0-16.0); White Blood Count 13.4 X10*3/uL (4.8-10.8)
[2024-10-16 11:54] LABS: Alanine Aminotransferase 7 U/L (0-31); Albumin Level 4.4 g/dL (3.5-5.0); Alkaline Phosphatase 83 U/L (39-117); Anion Gap 14 (12-20); Aspartate Amino Transferase 14 U/L (5-31); Bilirubin Direct 0.1 mg/dL (0.0-0.5); Bilirubin Total 0.3 mg/dL (0.0-1.0); Blood Urea Nitrogen 18 mg/dL (9-16); Calcium 10.4 mg/dL (8.4-10.2); Carbon Dioxide 23 mmol/L (22-29); Chloride 103 mmol/L (96-108); Creatinine Clr Calc Pharmacy 75.3; Estimated Glomerular Filt Rate > 60; Glucose Random 104 mg/dL (60-115); Lipase 23 U/L (8-78); Magnesium 1.5 mg/dL (1.6-2.6); Potassium 3.8 mmol/L (3.3-5.1); Sodium 136 mmol/L (135-145); Total Protein 7.2 g/dL (6.5-8.0)
[2024-10-16 12:00] LABS: Troponin-I High Sensitivity 2.9 ng/L (<3.5-17.0)
[2024-10-16 12:18] LABS: Influenza A PCR NEGATIVE (Negative); Influenza B PCR NEGATIVE (Negative); Resp Syncy Virus RNA Qual PCR NEGATIVE (Negative); SARS COV2 PCR INHOUSE NEGATIVE (Negative)
[2024-10-16 23:27] VITALS: BP 139/54; PULSE 98; RESP 18; TEMP 36.5; O2SAT 96
[2024-10-17] VITALS (8 sets, daily range): BP systolic 123–152; BP diastolic 62–68; PULSE 90–97; RESP 15–24; TEMP 36.4–36.8; O2SAT 93–95
[2024-10-17] MEDS: Morphine Sulfate 2 MG/ML CARTRIDGE 1 MG IVPUSH (02:47)
[2024-10-17] MEDS: Metoclopramide HCl 10 MG/2 ML VIAL IVPUSH (02:49)
[2024-10-17 04:40] LABS: Appearance Urine Cloudy; Color Urine Yellow; Glucose Urine UA Negative (Negative); Leukocyte Esterase Urine Negative (Negative); Nitrite Urine Negative (Negative); PH 5.5 (5.0-9.0); Specific Gravity - Urine 1.025 (1.005-1.025); UMIC TRIGGER UACC YES; Urine Blood Trace (Negative); Urine Ketones Trace mg/dL (Negative); Urine Protein Trace mg/dL (Neg-Trace)
[2024-10-17 04:55] LABS: Bacteria Urine None Seen (None Seen); Calcium Oxalate Crystals Urine Present; Other Crystals Urine Present; WBC Urine 0-5 /HPF (0-5)
[2024-10-17] MEDS: iohexoL 350 MG/ML 100 ML INFUS..BTL IV (09:59)
== END 2024-10-17 12:31 | disposition home or self-care (01) ==
PROVIDERS: Emergency Medicine; Emergency Provider Emergency Medicine; PCP Internal Medicine
DX: R10.9 Unspecified abdominal pain (principal); I10 Essential (primary) hypertension; E11.9 Type 2 diabetes mellitus without complications; J44.9 Chronic obstructive pulmonary disease, unspecified; Z99.81 Dependence on supplemental oxygen
CPT/HCPCS: 0241U; 74176; 74178; 80048; 80076; 81001; 83690; 83735; 84484; 85025; 93005; 96374; 96375; 99284; 99285; J2270; J2765; Q9967

== ENCOUNTER → 2024-10-16 11:17 | Outpatient (BNV) | payer OTHER, SELFPAY | PROVIDERS: PCP Internal Medicine; Visit Provider Internal Medicine Cardiovascular Disease | DX: R00.0 Tachycardia, unspecified (principal) | CPT/HCPCS: 93010 ==

== ENCOUNTER → 2024-10-17 02:24 | Outpatient (BNV) | payer OTHER, SELFPAY | PROVIDERS: Emergency Provider Emergency Medicine; PCP Internal Medicine; Visit Provider Radiology Diagnostic Radiology | DX: N28.9 Disorder of kidney and ureter, unspecified (principal) | CPT/HCPCS: 74176; 74178 ==

== ENCOUNTER 2024-10-22 12:21 | Emergency (ER) | payer OTHER, SELFPAY ==
[2024-10-22 12:29] VITALS: BP 149/59; PULSE 99; RESP 22; TEMP 36.4; O2SAT 94; BMI 24.7
--- NOTE | 2024-10-22 12:43 | ECG_ITS ---
Test Reason : abdn pain Blood Pressure : */* mmHG Vent. Rate : 96 BPM Atrial Rate : 96 BPM P-R Int : 120 ms QRS Dur : 82 ms QT Int : 358 ms P-R-T Axes : 63 86 62 degrees QTcB Int : 452 ms Normal sinus rhythm Nonspecific T wave abnormality Abnormal ECG When compared with ECG of 16-Oct-2024 11:24, No significant change was found Referred By: Canelo Osborne Electronically Signed By: SHANKAR GARCIA
--- NOTE | 2024-10-22 12:44 | ED.GENADULT ---
HPI - General Adult General Chief complaint: Abdominal Pain Stated complaint: abd pain Time Seen by Provider: 10/22/24 15:39 Source: patient Mode of arrival: ambulatory Limitations: no limitations History of Present Illness ED Provider: Beba Freitas NP HPI narrative: Patient is a 64-year-old female who presents emergency department for evaluation of mid abdominal pain. She reports this is an intermittent over many months. She states that she was recently seen in the emergency department less than a week ago, she states that her pain is in fact unchanged since her most recent visit, but has not gotten any better. 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 She has been able to identify exacerbating or alleviating factors. She is not able to tell me what she has trialed in the past for this pain nor is she able to identify anything that is been helpful for her. She denies associated fevers, chills, nausea, vomiting, chest pain, shortness of breath, hematochezia, melena, constipation, diarrhea, dysuria, urinary frequency/urgency/hesitancy. In fact she is requesting something to eat at this time she is feeling quite hungry. She has been tolerating oral intake at home without exacerbation of the same nor vomiting. Related Data Home Medications ?Medication ?Instructions ?Recorded ?Confirmed aspirin 81 mg tablet,delayed 81 mg PO BEDTIME 01/10/21 09/28/24 release (Adult Low Dose Aspirin) psyllium husk 0.52 gram capsule 1.04 g PO BID Constipation 02/28/24 09/28/24 (Fiber Laxative (psyllium husk)) metformin 1,000 mg tablet 1,000 mg PO BID 05/06/24 09/28/24 acetaminophen 650 mg 650 mg PO TID PRN Pain 05/30/24 09/28/24 tablet,extended release ferrous sulfate 324 mg (65 mg 324 mg PO DAILY 05/30/24 09/28/24 iron) tablet,delayed release linaclotide 72 mcg capsule 72 mcg PO DAILY 07/12/24 09/28/24 (Linzess) famotidine 40 mg tablet 40 mg PO BEDTIME 07/26/24 09/28/24 simethicone 180 mg capsule 180 mg PO QID 07/26/24 09/28/24 (Anti-Gas Ultra Strength) sitagliptin phosphate 100 mg 100 mg PO DAILY 07/26/24 09/28/24 tablet (Januvia) fluticasone fur. 100 mcg-umeclid inhalation DAILY 09/28/24 09/28/24 62.5 mcg-vilant 25 mcg inhalat.powder (Trelegy Ellipta) Previous Rx's ?Medication ?Instructions ?Recorded blood-glucose meter (FreeStyle #1 ea 10/03/21 Lite Meter kit) lancets 28 gauge (FreeStyle #100 ea 01/06/22 Lancets) FreeStyle Lite Strips (blood sugar #100 ea 03/10/22 diagnostic) flash glucose sensor (FreeStyle #6 ea 02/19/23 Cristian 2 Sensor kit) flash glucose scanning reader #1 ea 03/26/23 (FreeStyle Cristian 2 [place]) magnesium oxide 400 mg (241.3 mg 400 mg PO DAILY #7 tabs 06/01/24 magnesium) tablet ipratropium 0.5 mg-albuterol 3 mg 3 ml inhalation Q6H wheezing 1 06/21/24 (2.5 mg base)/3 mL nebulization month #180 mL soln losartan 50 mg tablet 50 mg PO DAILY #90 tabs 07/11/24 rosuvastatin 5 mg tablet 5 mg PO DAILY #90 tabs 07/11/24 metoclopramide HCl 10 mg tablet 20 mg (2 x 10 mg) PO TIDWMEAL #180 07/12/24 (Reglan) tabs amlodipine 5 mg tablet 5 mg PO DAILY #90 tabs 07/21/24 cholecalciferol (vitamin D3) 50 50 mcg PO DAILY #90 caps 07/21/24 mcg (2,000 unit) capsule benzonatate 100 mg capsule 100 mg PO TID PRN cough #30 caps 08/13/24 methocarbamol 500 mg tablet 500 mg PO TID PRN Muscle Spasm #30 08/13/24 tabs pantoprazole 40 mg tablet,delayed 40 mg PO BID #180 tabs 08/18/24 release baclofen 10 mg tablet 10 mg PO TID 30 days #90 tabs 08/24/24 aluminum hydrox-magnesium carb 254 10 ml PO QID PRN dyspepsia #355 mL 08/31/24 mg-237.5 mg/5 mL oral suspension (Gaviscon Extra Strength) varenicline tartrate 1 mg tablet 1 mg PO BID 30 days #60 tabs 09/28/24 gabapentin 800 mg tablet 800 mg PO TID 30 days #90 tabs 10/05/24 cefuroxime axetil 500 mg tablet 500 mg PO BID 5 days #10 tabs 10/10/24 doxycycline hyclate 100 mg capsule 100 mg PO BID 5 days #10 caps 10/10/24 Allergies Allergy/AdvReac Type Severity Reaction Status Date / Time amoxicillin [AMOXICILLIN] Allergy Intermediate RASH Verified 10/22/24 12:33 Review of Systems Review of Systems: Yes all other systems are reviewed and are negative [facility]LY [facility] Past Medical History Attestation statement: The following information was validated with the patient. 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 Essential hypertension Smoker unmotivated to quit Postlaminectomy syndrome of cervical region Seasonal allergic rhinitis Degenerative disc disease, cervical Postmenopause Dyslipidemia Gastroparesis GERD (gastroesophageal reflux disease) Surgical History H/O cervical discectomy History of esophagogastroduodenoscopy (EGD) Hx of colonoscopy Family History Family History Mother Diabetes Sister Diabetes Mental health disorder Brother Diabetes Father HTN (hypertension) Social History Social History Household Members: Significant Other Housing: Apartment Housing Other:: mobile home Are you a primary medicare specialist to a significant other at home: No Do you presently have 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) Alcohol intake: never Comment: Commode/ Hi Flow O2 Patient Tobacco Use Status: Current everyday Tobacco user Tobacco use type: Cigarette Cigarette Packs Per Day: 0.5 Cigarettes Per Day: 10 Years Smoked: 51 Smoked in Last 30 Days: No e-Cigarette/Vaping Use: Never Used Second Hand Smoke Exposure: Yes Use of substances other than those prescribed or required for medical reasons: No Advance Directives: Yes Advance Directives on File: Yes Advance Directives Date on File: 08/02/23 Do you have a plan to hurt others: No Plan Patient : No service: No Current occupational status: unemployed and disabled Gender identity: Female Cognitive needs: No Hearing needs: No Vision needs: Yes Physical Exam ED Vital Signs: Vital Signs - 24 hr 10/22/24 12:29 10/22/24 15:34 10/22/24 16:14 Temperature 97.6 F 97.8 F Pulse Rate 99 87 84 Respiratory Rate 22 H 14 14 Blood Pressure 149/59 H 146/71 H 174/80 H Pulse Oximetry 94 94 94 Oxygen Delivery Method Nasal Cannula Nasal Cannula Nasal Cannula Oxygen Flow Rate 2 2 10/22/24 17:45 Temperature 97.8 F Pulse Rate 84 Respiratory Rate 14 Blood Pressure 174/80 H Pulse Oximetry 94 Oxygen Delivery Method Room Air Oxygen Flow Rate BMI result Body Mass Index 24.7 Appearance: Alert.?Oriented to person, place and time. No acute distress.?Normal affect.?? Neck: Normal inspection.? Neck supple.?? CVS: Heart sounds normal. Normal heart rate and rhythm.? Pulses normal.?? Respiratory: No respiratory distress.? Bibasilar coarse breath sounds. Abdomen: Soft and non-tender. No rebound tenderness at McBurney's point. Negative psoas sign. Negative Rovsing sign. Negative Byrd sign. No CVAT. Normoactive bowel sounds. No pulsatile mass.?? Skin: Skin warm and dry.? Normal skin color.? Extremities: No lower extremity edema.? Neuro: Moves all extremities spontaneously. Sensation intact bilaterally. Ambulates with normal steady gait. Course Course Course Narrative: RME: 64 yold female presents to the ED for abdominal pain without any nausea or diarrhea, voitting for months. labs, EKG ordered Medical Decision Making Medical Decision Making MDM Narrative: Patient is a 64-year-old female with past medical history of right renal cell carcinoma s/p cryoablation, COPD on 2 L nasal cannula, hypertension, anemia, smoker, DM, gastritis, gastroparesis, GERD, constipation emergency department mid abdominal pain intermittent over many months. Unchanged from baseline. In fact she was in this ED 6 days ago, had CT scan of her abdomen and pelvis without identifiable acute pathology to suggest a reason for her pain. He has been tolerating oral intake at home without exacerbation of pain, she was requesting to eat this time. Given no acute change in her pain benign abdominal examination I would defer repeat CT imaging at this time. She is without signs of systemic toxicity afebrile without tachycardia no hypotension. CBC reveals a mild leukocytosis 12,200 appears to be baseline for her, mild normocytic anemia not meeting transfusion criteria, no thrombocytopenia. No BENNETT. LFTs and lipase within normal range. EKG revealing a normal sinus rhythm with ventricular rate of 96, QTC barn D2, no ST elevation, unlikely ACS as etiology for pain. She is without constipation diarrhea hematochezia melena no notable left lower quadrant tenderness to suggest diverticulitis. No right lower quadrant tenderness or rebound tenderness at McBurney's point to suggest acute appendicitis. No distention or rigidity to suggest GI perforation. No associated symptoms to favor UTI/pyelonephritis/renal colic/hydronephrosis. She is tolerating oral intake. At this time I feel that she is stable for discharge home, advised outpatient follow-up with PCP in addition to Gastroenterology, she plans to contact their office tomorrow to determine whether she may establish a sooner appointment than in December of 2024. She was last seen in August of 2024 she was advised to increase her Reglan to 20 mg 3 times daily in addition to continuing with lansoprazole, Linzess, magnesium, psyllium husk fiber, and simethicone. Advised continued use of her prescribed medications. Differential Diagnosis Differential Diagnoses: The differential diagnosis associated with the presentation includes (See narrative above) Admission/Observation Consideration of admission/observation: Escalation of care including admission/observation considered (See narrative above ) Lab Data MDM Lab Attestation statement: I reviewed the patient's lab results. 10/22/24 13:14 10/22/24 13:14 Labs: Lab Results 10/22/24 10/22/24 Range/Units 13:14 16:54 WBC 12.2 H (4.8-10.8) X10*3/uL RBC 4.20 (4.20-5.50) X10*6/uL Hgb 11.5 L (12.0-16.0) g/dl Hct 36.1 L (37.0-47.0) % MCV 86.0 (80.0-98.0) fL MCH 27.4 (27.0-33.0) pg MCHC 31.9 (31.0-35.0) g/dl RDW 15.4 (11.0-16.0) % Plt Count 302 (160-400) X10*3/uL MPV 9.8 (9.4-12.3) fL Immature Gran % (Auto) 0.4 (0.0-0.4) % Neut % (Auto) 73.1 H (45-73) % Lymph % (Auto) 20.4 (20-40) % [place] % (Auto) 4.6 (2-11) % Eos % (Auto) 0.8 (0-4) % Baso % (Auto) 0.7 (0-2) % Lymph # (Auto) 2.5 (1.2-4.9) X10*3/uL [place] # (Auto) 0.6 (0.1-1.2) X10*3/uL Eos # (Auto) 0.1 (0.0-0.4) X10*3/uL Baso # (Auto) 0.1 (0.0-0.2) X10*3/uL Abs Immat Gran (auto) 0.05 H (0.00-0.03) X10*3/uL Absolute Neuts (auto) 8.9 H (2.0-8.3) x10*3/uL Absolute Nucleated RBC 0.000 (0.0-0.012) X10*3/uL Nucleated RBC % (auto) 0.0 (0.0-0.2) /100WBC PT 10.7 L (10.9-12.4) SEC INR 0.9 (0.9-1.1) APTT 30.2 (26.0-36.8) SEC Sodium 144 (135-145) mmol/L Potassium 3.2 L (3.3-5.1) mmol/L Chloride 106 (96-108) mmol/L Carbon Dioxide 26 (22-29) mmol/L Anion Gap 15 (12-20) BUN 12 (9-16) mg/dL Creatinine 0.47 L (0.5-1.4) mg/dL Estim Creat Clear Calc 84.7 Estimated GFR > 60 Random Glucose 131 H (60-115) mg/dL Calcium 9.5 D (8.4-10.2) mg/dL Total Bilirubin 0.1 (0.0-1.0) mg/dL AST 11 (5-31) U/L ALT 14 (0-31) U/L Alkaline Phosphatase 80 (39-117) U/L Troponin I High Sens 3.7 (<3.5-17.0) ng/L Total Protein 6.6 (6.5-8.0) g/dL Albumin 4.0 (3.5-5.0) g/dL Lipase 15 (8-78) U/L Urine Color Yellow Urine Appearance Clear Urine pH 6.0 (5.0-9.0) Ur Specific [place] 1.025 (1.005-1.025) Urine Protein Negative (Neg-Trace) mg/dL Urine Glucose (UA) Negative (Negative) mg/dL Urine Ketones Trace (Negative) mg/dL Urine Blood Negative (Negative) Urine Nitrite Negative (Negative) Ur Leukocyte Esterase Negative (Negative) External Record Review External record reviewed: Outpatient record Chronic Conditions Patient?s care impacted by: Other (See narrative above) Discharge Plan Discharge Clinical Impression: Abdominal pain Patient Disposition: Home, Self-Care Instructions: Abdominal Pain (ED) Additional Instructions: As discussed, your blood work today remains unchanged from her prior visit. It is reassuring that the pain has not changed in any way. You are able to tolerate oral intake any nausea or vomiting. I do recommend that you contact your gastroenterology office and see if they might be able to schedule a sooner appointment for you then may. Be sure that you are taking all of your medications as prescribed. Return to the emergency department with new or worsening symptoms or concerns. Prescriptions: No Action (DME) lancets [FreeStyle Lancets] 28 gauge misc See Rx Instructions .Route Qty: 100 5RF Rx Instructions: As directed twice a day AC (DME) FreeStyle Lite Strips Strip See Rx Instructions .Route Qty: 100 0RF Rx Instructions: check fasting blood sugar twice a day before meals (DME) FreeStyle Cristian 2 Sensor Kit See Rx Instructions .Route Qty: 6 3RF Rx Instructions: Test blood sugar 4 times per day (DME) FreeStyle Cristian 2 [place] Misc See Rx Instructions .Route Qty: 1 0RF Rx Instructions: test blood sugar 4 times per day rosuvastatin 5 mg tablet 5 mg PO DAILY Qty: 90 1RF losartan 50 mg tablet 50 mg PO DAILY Qty: 90 1RF amlodipine 5 mg tablet 5 mg PO DAILY Qty: 90 1RF cholecalciferol (vitamin D3) 50 mcg (2,000 unit) capsule 50 mcg PO DAILY Qty: 90 1RF baclofen 10 mg tablet 10 mg PO TID 30 Days Qty: 90 6RF gabapentin 800 mg tablet 800 mg PO TID 30 Days Qty: 90 6RF psyllium husk [Fiber Laxative (psyllium husk)] 0.52 gram capsule 1.04 g PO BID metformin 1,000 mg tablet 1,000 mg PO BID Gaviscon Extra Strength 254-237.5 mg/5 mL suspension 10 ml PO QID PRN (Reason: dyspepsia) Qty: 355 0RF cefuroxime axetil 500 mg tablet 500 mg PO BID 5 Days Qty: 10 0RF doxycycline hyclate 100 mg capsule 100 mg PO BID 5 Days Qty: 10 0RF acetaminophen 650 mg Tablet Extended Release 650 mg PO TID PRN (Reason: Pain) ferrous sulfate 324 mg (65 mg iron) tablet,delayed release (DR/EC) 324 mg PO DAILY magnesium oxide 400 mg (241.3 mg magnesium) Tablet 400 mg PO DAILY Qty: 7 0RF simethicone [Anti-Gas Ultra Strength] 180 mg capsule 180 mg PO QID famotidine 40 mg tablet 40 mg PO BEDTIME Januvia 100 mg tablet 100 mg PO DAILY methocarbamol 500 mg Tablet 500 mg PO TID PRN (Reason: Muscle Spasm) Qty: 30 0RF benzonatate 100 mg Capsule 100 mg PO TID PRN (Reason: cough) Qty: 30 0RF aspirin [Adult Low Dose Aspirin] 81 mg tablet,delayed release (DR/EC) 81 mg PO BEDTIME (DME) blood-glucose meter [FreeStyle Lite Meter] Kit See Rx Instructions .Route Qty: 1 0RF Rx Instructions: As directed twice a day before meals Linzess 72 mcg capsule 72 mcg PO DAILY metoclopramide HCl [Reglan] 10 mg tablet 20 mg PO TIDWMEAL Qty: 180 6RF Trelegy Ellipta 100-62.5-25 mcg blister with device inhalation DAILY varenicline tartrate 1 mg tablet 1 mg PO BID 30 Days Qty: 60 1RF ipratropium-albuterol 0.5 mg-3 mg(2.5 mg base)/3 mL solution for nebulization 3 ml inhalation Q6H 30 Days Qty: 180 1RF pantoprazole 40 mg tablet,delayed release (DR/EC) 40 mg PO BID Qty: 180 1RF Rx Instructions: take in am , 1 hour before food or medicine intake Referrals: Magalie Nicolas MD [Primary Care Provider] - Interventions: ED Discharge Assessment Last Done: 10/22/24 17:45 Discharge Date/Time: 10/22/24 17:46 Print Language: Pakistani
[2024-10-22 13:21] LABS: MANUAL DIFF FLAG NO
[2024-10-22 13:22] LABS: Basophils Absolute Auto 0.1 X10*3/uL (0.0-0.2); Basophils Percent Auto 0.7 % (0-2); Eosinophils Absolute Auto 0.1 X10*3/uL (0.0-0.4); Eosinophils Percent Auto 0.8 % (0-4); Hematocrit 36.1 % (37.0-47.0); Hemoglobin 11.5 g/dl (12.0-16.0); Imm Gran Abs Auto 0.05 X10*3/uL (0.00-0.03); Imm Gran Pct Auto 0.4 % (0.0-0.4); Lymphocytes Absolute Auto 2.5 X10*3/uL (1.2-4.9); Lymphocytes Percent Auto 20.4 % (20-40); Mean Corpuscular HGB Conc 31.9 g/dl (31.0-35.0); Mean Corpuscular Hemoglobin 27.4 pg (27.0-33.0); Mean Platelet Volume 9.8 fL (9.4-12.3); Monocytes Absolute Auto 0.6 X10*3/uL (0.1-1.2); Monocytes Percent Auto 4.6 % (2-11); Neutrophils Absolute Auto 8.9 x10*3/uL (2.0-8.3); Neutrophils Percent Auto 73.1 % (45-73); Platelet Count 302 X10*3/uL (160-400); Red Cell Distribution Width 15.4 % (11.0-16.0); White Blood Count 12.2 X10*3/uL (4.8-10.8)
[2024-10-22 13:27] LABS: INTERNATIONAL NORM RATIO 0.9 (0.9-1.1); Prothrombin Time 10.7 SEC (10.9-12.4)
[2024-10-22 13:29] LABS: Partial Thromboplastin Time 30.2 SEC (26.0-36.8)
[2024-10-22 13:38] LABS: Alanine Aminotransferase 14 U/L (0-31); Alkaline Phosphatase 80 U/L (39-117); Anion Gap 15 (12-20); Aspartate Amino Transferase 11 U/L (5-31); Bilirubin Total 0.1 mg/dL (0.0-1.0); Blood Urea Nitrogen 12 mg/dL (9-16); Calcium 9.5 mg/dL (8.4-10.2); Carbon Dioxide 26 mmol/L (22-29); Chloride 106 mmol/L (96-108); Creatinine Clr Calc Pharmacy 84.7; Estimated Glomerular Filt Rate > 60; Glucose Random 131 mg/dL (60-115); Lipase 15 U/L (8-78); Potassium 3.2 mmol/L (3.3-5.1); Sodium 144 mmol/L (135-145); Total Protein 6.6 g/dL (6.5-8.0)
[2024-10-22 13:46] LABS: Troponin-I High Sensitivity 3.7 ng/L (<3.5-17.0)
[2024-10-22 15:34] VITALS: BP 146/71; PULSE 87; RESP 14; TEMP 36.6; O2SAT 94
[2024-10-22 16:14] VITALS: BP 174/80; PULSE 84; RESP 14; O2SAT 94
[2024-10-22 17:08] LABS: Appearance Urine Clear; Color Urine Yellow; Glucose Urine UA Negative (Negative); Leukocyte Esterase Urine Negative (Negative); Nitrite Urine Negative (Negative); Specific Gravity - Urine 1.025 (1.005-1.025); Urine Blood Negative (Negative); Urine Ketones Trace mg/dL (Negative); Urine Protein Negative (Neg-Trace)
[2024-10-22 17:45] VITALS: BP 174/80; PULSE 84; RESP 14; TEMP 36.6; O2SAT 94
== END 2024-10-22 17:46 | disposition home or self-care (01) ==
PROVIDERS: Physician Assistant; Emergency Provider Emergency Medicine; PCP Internal Medicine
DX: R10.2 Pelvic and perineal pain (principal); E11.9 Type 2 diabetes mellitus without complications; J44.9 Chronic obstructive pulmonary disease, unspecified; F17.210 Nicotine dependence, cigarettes, uncomplicated; Z79.899 Other long term (current) drug therapy; Z99.81 Dependence on supplemental oxygen; Z79.4 Long term (current) use of insulin
CPT/HCPCS: 36415; 80053; 81003; 83690; 84484; 85025; 85610; 85730; 93005; 99283; 99285

== ENCOUNTER → 2024-10-22 12:43 | Outpatient (BNV) | payer OTHER, SELFPAY | PROVIDERS: Emergency Provider Emergency Medicine; PCP Internal Medicine; Visit Provider Internal Medicine | DX: R94.31 Abnormal electrocardiogram [ECG] [EKG] (principal); R10.9 Unspecified abdominal pain | CPT/HCPCS: 93010 ==

== ENCOUNTER 2024-10-26 11:43 | Emergency (ER) | payer OTHER, SELFPAY ==
--- NOTE | ~2024-10-26 | CT_ITS ---
EXAMINATION: CT ABDOMEN AND PELVIS WITH CONTRAST CLINICAL INFORMATION: Abdominal pain COMPARISON: CT abdomen 10/17/2022. TECHNIQUE: Multidetector volumetric images were obtained from the superior aspect of the liver through the pubic symphysis following administration 85 mL of Omnipaque 350 intravenous contrast. Sagittal and coronal reformatted images were obtained on the technologist's workstation. Oral contrast: No This CT examination was performed using dose optimization techniques as appropriate, variously including the following: *Automated exposure control *Adjustment of mA and/or kV according to patient size (this includes techniques or standardized protocols for targeted exams where dose is matched to indication/reason for exam; i.e. extremities or head) *Use of iterative reconstruction technique DLP: 362. FINDINGS: LUNG BASES: There is platelike atelectasis or scarring right middle lobe and lingula. Subcentimeter nodules right lower lobe are stable compared to previous exam.. Heart size and the great vessels are normal. There is mild coronary artery calcifications. LIVER, GALLBLADDER, AND BILIARY TREE: The liver is normal in size, shape, and attenuation. No focal hepatic lesion or biliary ductal dilatation is present. The gallbladder is unremarkable with no evidence of radiopaque gallstones, gallbladder wall thickening, or obvious pericholecystic inflammatory changes. PANCREAS: Unremarkable. SPLEEN: Unremarkable. ADRENAL GLANDS: Unremarkable. KIDNEYS AND URETERS: The kidneys are normal in size, shape, and attenuation. No hydronephrosis, hydroureter, or calculi seen. No perinephric stranding. Again visualizes a complex cystic and solid mass in lower pole right kidney. The composite measurement is 3.6 x 2.4 cm. There is a moderate perinephric stranding similar previous study. The findings are most suggestive of post cryoablation changes. No perinephric hematoma seen. The left kidney is unremarkable. BLADDER: Unremarkable. GASTROINTESTINAL TRACT: Scattered stool and gas seen in the colon. The small bowel loops are unremarkable. Appendix is not seen. There is no free air or free fluid seen. ABDOMINAL WALL: No significant hernia is appreciated. LYMPH NODES: Normal. VASCULAR: Unremarkable. PELVIC VISCERA: The uterus is midline and appears unremarkable. There is no adnexal mass or free fluid in the cul-de-sac. There is a low-lying cervix and rectum inferior to pelvic diaphragm suspicious of rectocele and cervical serial OSSEOUS STRUCTURES: No aggressive lytic or sclerotic process seen. CT/CT abdomen pelvis w IV con IMPRESSION: Complex mass right kidney lower pole with sequelae of cryoablation. There is perinephric stranding which is stable compared to last CT. No hemorrhage seen. There is no hydronephrosis. Mild constipation. Fleischner guidelines were followed. Electronically signed by: Ankit Miller MD 10/26/2024 04:56 PM EDT RP
[2024-10-26 12:22] VITALS: BP 147/54; PULSE 94; RESP 16; TEMP 36.6; O2SAT 93; BMI 24.2
--- NOTE | 2024-10-26 12:26 | ED_ITS ---
HPI - Abdominal Pain General Chief Complaint: Abdominal Pain Stated Complaint: Abd pain Time Seen by Provider: 10/26/24 14:02 Source: patient Mode of arrival: ambulatory Limitations: no limitations History of Present Illness ED Provider: Canelo Osborne HPI narrative: 64-year-old female history of gastritis, diabetes, hypomagnesemia presents to ED for chronic abdominal pain exacerbation. Patient states abdominal pain for months. Patient has a appointment with Gastroenterology in November. Patient denies any genitourinary symptoms, any new trauma, chest pain, shortness of breath, fever, or chills. Related Data Home Medications ?Medication ?Instructions ?Recorded ?Confirmed aspirin 81 mg tablet,delayed 81 mg PO BEDTIME 01/10/21 09/28/24 release (Adult Low Dose Aspirin) psyllium husk 0.52 gram capsule 1.04 g PO BID Constipation 02/28/24 09/28/24 (Fiber Laxative (psyllium husk)) metformin 1,000 mg tablet 1,000 mg PO BID 05/06/24 09/28/24 acetaminophen 650 mg 650 mg PO TID PRN Pain 05/30/24 09/28/24 tablet,extended release ferrous sulfate 324 mg (65 mg 324 mg PO DAILY 05/30/24 09/28/24 iron) tablet,delayed release linaclotide 72 mcg capsule 72 mcg PO DAILY 07/12/24 09/28/24 (Linzess) famotidine 40 mg tablet 40 mg PO BEDTIME 07/26/24 09/28/24 simethicone 180 mg capsule 180 mg PO QID 07/26/24 09/28/24 (Anti-Gas Ultra Strength) sitagliptin phosphate 100 mg 100 mg PO DAILY 07/26/24 09/28/24 tablet (Januvia) fluticasone fur. 100 mcg-umeclid inhalation DAILY 09/28/24 09/28/24 62.5 mcg-vilant 25 mcg inhalat.powder (Trelegy Ellipta) Previous Rx's ?Medication ?Instructions ?Recorded blood-glucose meter (FreeStyle #1 ea 10/03/21 Lite Meter kit) lancets 28 gauge (FreeStyle #100 ea 01/06/22 Lancets) FreeStyle Lite Strips (blood sugar #100 ea 03/10/22 diagnostic) flash glucose sensor (FreeStyle #6 ea 02/19/23 Cristian 2 Sensor kit) flash glucose scanning reader #1 ea 03/26/23 ([email or web address] Cristian 2 [place]) magnesium oxide 400 mg (241.3 mg 400 mg PO DAILY #7 tabs 06/01/24 magnesium) tablet ipratropium 0.5 mg-albuterol 3 mg 3 ml inhalation Q6H wheezing 1 06/21/24 (2.5 mg base)/3 mL nebulization month #180 mL soln losartan 50 mg tablet 50 mg PO DAILY #90 tabs 07/11/24 rosuvastatin 5 mg tablet 5 mg PO DAILY #90 tabs 07/11/24 metoclopramide HCl 10 mg tablet 20 mg (2 x 10 mg) PO TIDWMEAL #180 07/12/24 (Reglan) tabs amlodipine 5 mg tablet 5 mg PO DAILY #90 tabs 07/21/24 cholecalciferol (vitamin D3) 50 50 mcg PO DAILY #90 caps 07/21/24 mcg (2,000 unit) capsule benzonatate 100 mg capsule 100 mg PO TID PRN cough #30 caps 08/13/24 methocarbamol 500 mg tablet 500 mg PO TID PRN Muscle Spasm #30 08/13/24 tabs pantoprazole 40 mg tablet,delayed 40 mg PO BID #180 tabs 08/18/24 release baclofen 10 mg tablet 10 mg PO TID 30 days #90 tabs 08/24/24 aluminum hydrox-magnesium carb 254 10 ml PO QID PRN dyspepsia #355 mL 08/31/24 mg-237.5 mg/5 mL oral suspension (Gaviscon Extra Strength) varenicline tartrate 1 mg tablet 1 mg PO BID 30 days #60 tabs 09/28/24 gabapentin 800 mg tablet 800 mg PO TID 30 days #90 tabs 10/05/24 cefuroxime axetil 500 mg tablet 500 mg PO BID 5 days #10 tabs 10/10/24 doxycycline hyclate 100 mg capsule 100 mg PO BID 5 days #10 caps 10/10/24 famotidine 40 mg tablet (Pepcid) 40 mg PO DAILY 10 days #10 tabs 10/26/24 Allergies Allergy/AdvReac Type Severity Reaction Status Date / Time amoxicillin [AMOXICILLIN] Allergy Intermediate RASH Verified 10/26/24 12:22 Review of Systems Review of Systems Generalized abdominal pain Yes all other systems are reviewed and are negative PMFSH Past Medical History Medical History Heavy cigarette smoker History of pneumonia COPD mixed type Hypochromic anemia Gastritis Diabetic gastroparesis Diastolic CHF with preserved left ventricular function, NYHA class 2 Chronic hypercapnic respiratory failure Mixed dyslipidemia Type 2 diabetes mellitus with other diabetic kidney complication Essential hypertension Smoker unmotivated to quit Postlaminectomy syndrome of cervical region Seasonal allergic rhinitis Degenerative disc disease, cervical Postmenopause Dyslipidemia Gastroparesis GERD (gastroesophageal reflux disease) Surgical History H/O cervical discectomy History of esophagogastroduodenoscopy (EGD) Hx of colonoscopy Family History Family History Mother Diabetes Sister Diabetes Mental health disorder Brother Diabetes Father HTN (hypertension) Social History Social History Household Members: Significant Other Housing: Apartment Housing Other:: mobile home Are you a primary managed care manager to a significant other at home: No Do you presently have visiting nurse or other home services: Yes ([employer]) Alcohol intake: never Comment: Commode/ Hi Flow O2 Patient Tobacco Use Status: Current everyday Tobacco user Tobacco use type: Cigarette Cigarette Packs Per Day: 0.5 Cigarettes Per Day: 10 Years Smoked: 51 Smoked in Last 30 Days: Yes e-Cigarette/Vaping Use: Never Used Second Hand Smoke Exposure: Yes Use of substances other than those prescribed or required for medical reasons: Yes Advance Directives: Yes Advance Directives on File: Yes Advance Directives Date on File: 08/02/23 service: No Current occupational status: unemployed and disabled Gender identity: Female Cognitive needs: No Hearing needs: No Vision needs: Yes Physical Exam ED Vital Signs: Vital Signs - 24 hr 10/26/24 12:22 10/26/24 16:05 10/26/24 19:36 Temperature 97.8 F 98.4 F 98.2 F Pulse Rate 94 93 90 Respiratory Rate 16 18 20 Blood Pressure 147/54 H 142/58 H 152/56 H Pulse Oximetry 93 96 95 Oxygen Delivery Method Nasal Cannula Nasal Cannula Nasal Cannula Oxygen Flow Rate 2 2 10/26/24 19:39 Temperature 98.2 F Pulse Rate 90 Respiratory Rate 20 Blood Pressure 152/56 H Pulse Oximetry 95 Oxygen Delivery Method Nasal Cannula Oxygen Flow Rate 2 BMI result Body Mass Index 24.2 Const General: cooperative, healthy appearing, comfortable, no acute distress, well developed, alert, awake and Physically active Orientation/consciousness: patient oriented x3 [facility] Head: Yes normal to inspection, Yes No palpable skull fracture present, Yes normocephalic and Yes atraumatic Eyes General: appearance normal, both eyes and all related structures Neck Neck: Yes normal visual inspection, Yes full ROM, Yes no lymphadenopathy, Yes no meningeal signs, Yes trachea midline, Yes supple, No anterior neck swelling and No tender Chest Chest palpation & inspection: normal inspection of the chest and normal palpation of entire chest wall Resp Effort & Inspection: normal respiratory effort and able to speak in complete sentences Auscultation: clear to auscultation bilaterally Cardio Jugular venous distension: no JVD Heart sounds: S1 normal heart sound present and S2 normal heart sound present GI Inspection: Yes normal to inspection Palpation (GI): Soft to palpation, not firm, Tenderness to palpation present (GI) (generalized), no guarding and not rigid General: Yes no CVA tenderness Back/Spine/Pelvis Back: no CVA tenderness and No back tenderness Skin General skin exam: no rashes or lesions noted, elasticity normal and turgor normal Neuro General: patient oriented x3, gait normal, tone normal, moves all extremities, Normal light touch and pain sensation, no meningeal signs, no focal motor deficits, CN's II-XI intact bilaterally and normal sensation to monofilament Extrem General: Yes normal to inspection, Yes full ROM and Yes capillary refill normal Psych Appearance: grossly normal, well kempt and not disheveled Course Course Course Narrative: This is an RME: Additional HPI, ROS, PE not included below will be deferred to primary provider. RME assessment and note performed by: Gena Mcgarry PA-C This is a [id number]-female who presents to the ER with complaints of chronic abdominal pain ongoing for several months. Patient has been here multiple times for the same symptoms. She states that her symptoms are unchanged. She is unsure what her triggers are. She describes a 9/10 abdominal pain. She appears well under no acute distress. She has an appointment with GI specialist on November 14. Plan: Labs, further ER evaluation needed. Medical Decision Making Medical Decision Making [facility] Narrative: 64-year-old female presents to the ED for chronic abdominal pain exacerbation. Patient denies any new trauma or genitourinary symptoms. Patient denies any chest pain or shortness of breath. EKG normal sinus. Two troponins negative. Abdominal CT scan shows no acute finding just a just right complex kidney mass which is on prior imaging. Pending UA. Patient given Pepcid and low-dose morphine. 6:59pm: Patient no longer needed morphine. Symptoms improved with Pepcid. Patient passed p.o. challenge. Patient had sandwich and natalia osman. Not suspecting [place], bowel obstruction, UTI, sepsis, abdominal perforation, mesenteric ischemia, or any other life-threatening etiology. Patient explained worrisome signs and informed to return to the ED immediately. EKG negative STEMI Differential Diagnosis Differential Diagnoses: The differential diagnosis associated with the presentation includes (Small-bowel obstruction gastritis, pancreatitis) Admission/Observation Consideration of admission/observation: Escalation of care including admission/observation considered Lab Data [facility] Lab Attestation statement: I reviewed the patient's lab results. 10/26/24 12:37 10/26/24 12:37 Labs: Lab Results 10/26/24 10/26/24 10/26/24 Range/Units 12:37 14:30 18:16 WBC 10.8 (4.8-10.8) X10*3/uL RBC 4.32 (4.20-5.50) X10*6/uL Hgb 11.9 L (12.0-16.0) g/dl Hct 37.7 (37.0-47.0) % MCV 87.3 (80.0-98.0) fL MCH 27.5 (27.0-33.0) pg MCHC 31.6 (31.0-35.0) g/dl RDW 15.4 (11.0-16.0) % Plt Count 278 (160-400) X10*3/uL MPV 9.2 L (9.4-12.3) fL Immature Gran % (Auto) 0.4 (0.0-0.4) % Neut % (Auto) 71.6 (45-73) % Lymph % (Auto) 20.2 (20-40) % [place] % (Auto) 5.8 (2-11) % Eos % (Auto) 1.4 (0-4) % Baso % (Auto) 0.6 (0-2) % Lymph # (Auto) 2.2 (1.2-4.9) X10*3/uL [place] # (Auto) 0.6 (0.1-1.2) X10*3/uL Eos # (Auto) 0.2 (0.0-0.4) X10*3/uL Baso # (Auto) 0.1 (0.0-0.2) X10*3/uL Abs Immat Gran (auto) 0.04 H (0.00-0.03) X10*3/uL Absolute Neuts (auto) 7.7 (2.0-8.3) x10*3/uL Absolute Nucleated RBC 0.000 (0.0-0.012) X10*3/uL Nucleated RBC % (auto) 0.0 (0.0-0.2) /100WBC Sodium 140 (135-145) mmol/L Potassium 3.6 (3.3-5.1) mmol/L Chloride 106 (96-108) mmol/L Carbon Dioxide 23 (22-29) mmol/L Anion Gap 15 (12-20) BUN 8 L (9-16) mg/dL Creatinine 0.60 (0.5-1.4) mg/dL Estim Creat Clear Calc 65.8 Estimated GFR > 60 Random Glucose 204 H (60-115) mg/dL Calcium 10.1 D (8.4-10.2) mg/dL Magnesium 1.3 L* (1.6-2.6) mg/dL Total Bilirubin 0.2 (0.0-1.0) mg/dL Direct Bilirubin < 0.2 (0.0-0.5) mg/dL AST 11 (5-31) U/L ALT 8 (0-31) U/L Alkaline Phosphatase 78 (39-117) U/L Troponin I High Sens 2.7 3.5 (<3.5-17.0) ng/L Total Protein 7.2 (6.5-8.0) g/dL Albumin 4.2 (3.5-5.0) g/dL Lipase 16 (8-78) U/L Urine Color Yellow Urine Appearance Clear Urine pH 5.5 (5.0-9.0) Ur Specific [place] >= 1.030 H (1.005-1.025) Urine Protein Trace (Neg-Trace) mg/dL Urine Glucose (UA) Negative (Negative) mg/dL Urine Ketones Trace (Negative) mg/dL Urine Blood Negative (Negative) Urine Nitrite Negative (Negative) Ur Leukocyte Esterase Negative (Negative) Independent Interpretation I performed an independent interpretation of an: EKG (Normal sinus rhythm) and CT Scan Radiology Impression Discussion of test interpretation with radiology: I have reviewed the radiologist's reading. Independent Historian Clinical information obtained from an independent historian. History obtained from or confirmed by: Other (Patient) Prescription Management I considered prescription management with: Pain Medication Medications Administered Discontinued Medications Generic Name Dose Route Start Last Admin Trade Name Freq PRN Reason Stop Dose Admin Famotidine 20 mg 10/26/24 17:35 10/26/24 18:30 Famotidine/Pf 20 Mg/2 Ml Vial IVPUSH 10/26/24 17:36 20 mg ONCE ONE Administration Magnesium Sulfate 2 gm in 50 mls @ 25 mls/hr 10/26/24 13:58 10/26/24 18:24 Magnesium Sulfate/H2o IV 10/26/24 15:57 Infused ONCE ONE Infusion Iohexol 100 ml 10/26/24 16:07 10/26/24 16:08 Iohexol 350 Mg/Ml 100 Ml Infus..Btl IV 10/26/24 16:08 85 ml ONCE ONE Administration Discharge Plan Discharge Clinical Impression: Abdominal pain GERD (gastroesophageal reflux disease) Qualifiers: Esophagitis presence: without esophagitis Qualified Code(s): K21.9 - Gastro- esophageal reflux disease without esophagitis Patient Disposition: Home, Self-Care Instructions: Gastroesophageal Reflux Disease (ED), Abdominal Pain (ED) Additional Instructions: Recommend calling a experiential therapist for earlier appointment. Recommend follow-up with your primary care provider. Return to the ED immediately for any abdominal pain, chest pain, shortness of breath, constipation, dysuria, hematuria, blood in stool, or any other concerning symptoms. CT scan shows right kidney mass. FINDINGS: LUNG BASES: There is platelike atelectasis or scarring right middle lobe and lingula. Subcentimeter nodules right lower lobe are stable compared to previous exam.. Heart size and the great vessels are normal. There is mild coronary artery calcifications. LIVER, GALLBLADDER, AND BILIARY TREE: The liver is normal in size, shape, and attenuation. No focal hepatic lesion or biliary ductal dilatation is present. The gallbladder is unremarkable with no evidence of radiopaque gallstones, gallbladder wall thickening, or obvious pericholecystic inflammatory changes. PANCREAS: Unremarkable. SPLEEN: Unremarkable. ADRENAL GLANDS: Unremarkable. KIDNEYS AND URETERS: The kidneys are normal in size, shape, and attenuation. No hydronephrosis, hydroureter, or calculi seen. No perinephric stranding. Again visualizes a complex cystic and solid mass in lower pole right kidney. The composite measurement is 3.6 x 2.4 cm. There is a moderate perinephric stranding similar previous study. The findings are most suggestive of post cryoablation changes. No perinephric hematoma seen. The left kidney is unremarkable. BLADDER: Unremarkable. GASTROINTESTINAL TRACT: Scattered stool and gas seen in the colon. The small bowel loops are unremarkable. Appendix is not seen. There is no free air or free fluid seen. ABDOMINAL WALL: No significant hernia is appreciated. LYMPH NODES: Normal. VASCULAR: Unremarkable. PELVIC VISCERA: The uterus is midline and appears unremarkable. There is no adnexal mass or free fluid in the cul-de-sac. There is a low-lying cervix and rectum inferior to pelvic diaphragm suspicious of rectocele and cervical serial OSSEOUS STRUCTURES: No aggressive lytic or sclerotic process seen. CT/CT abdomen pelvis w IV con IMPRESSION: Complex mass right kidney lower pole with sequelae of cryoablation. There is perinephric stranding which is stable compared to last CT. No hemorrhage seen. There is no hydronephrosis. Mild constipation. Fleischner guidelines were followed. Electronically signed by: Ankit Miller MD 10/26/2024 04:56 PM EDT Dictated By: Ankit Miller MD Signed By: <Electronically signed by Ankit Miller MD in OV> 10/26/24 1656 Prescriptions: New famotidine [Pepcid] 40 mg tablet 40 mg PO DAILY 10 Days Qty: 10 0RF No Action (DME) lancets [FreeStyle Lancets] 28 gauge misc See Rx Instructions .Route Qty: 100 5RF Rx Instructions: As directed twice a day AC (DME) FreeStyle Lite Strips Strip See Rx Instructions .Route Qty: 100 0RF Rx Instructions: check fasting blood sugar twice a day before meals (DME) FreeStyle Cristian 2 Sensor Kit See Rx Instructions .Route Qty: 6 3RF Rx Instructions: Test blood sugar 4 times per day (DME) FreeStyle Cristian 2 [place] Misc See Rx Instructions .Route Qty: 1 0RF Rx Instructions: test blood sugar 4 times per day rosuvastatin 5 mg tablet 5 mg PO DAILY Qty: 90 1RF losartan 50 mg tablet 50 mg PO DAILY Qty: 90 1RF amlodipine 5 mg tablet 5 mg PO DAILY Qty: 90 1RF cholecalciferol (vitamin D3) 50 mcg (2,000 unit) capsule 50 mcg PO DAILY Qty: 90 1RF baclofen 10 mg tablet 10 mg PO TID 30 Days Qty: 90 6RF gabapentin 800 mg tablet 800 mg PO TID 30 Days Qty: 90 6RF psyllium husk [Fiber Laxative (psyllium husk)] 0.52 gram capsule 1.04 g PO BID metformin 1,000 mg tablet 1,000 mg PO BID Gaviscon Extra Strength 254-237.5 mg/5 mL suspension 10 ml PO QID PRN (Reason: dyspepsia) Qty: 355 0RF cefuroxime axetil 500 mg tablet 500 mg PO BID 5 Days Qty: 10 0RF doxycycline hyclate 100 mg capsule 100 mg PO BID 5 Days Qty: 10 0RF acetaminophen 650 mg Tablet Extended Release 650 mg PO TID PRN (Reason: Pain) ferrous sulfate 324 mg (65 mg iron) tablet,delayed release (DR/EC) 324 mg PO DAILY magnesium oxide 400 mg (241.3 mg magnesium) Tablet 400 mg PO DAILY Qty: 7 0RF simethicone [Anti-Gas Ultra Strength] 180 mg capsule 180 mg PO QID famotidine 40 mg tablet 40 mg PO BEDTIME Januvia 100 mg tablet 100 mg PO DAILY methocarbamol 500 mg Tablet 500 mg PO TID PRN (Reason: Muscle Spasm) Qty: 30 0RF benzonatate 100 mg Capsule 100 mg PO TID PRN (Reason: cough) Qty: 30 0RF aspirin [Adult Low Dose Aspirin] 81 mg tablet,delayed release (DR/EC) 81 mg PO BEDTIME (DME) blood-glucose meter [FreeStyle Lite Meter] Kit See Rx Instructions .Route Qty: 1 0RF Rx Instructions: As directed twice a day before meals Linzess 72 mcg capsule 72 mcg PO DAILY metoclopramide HCl [Reglan] 10 mg tablet 20 mg PO TIDWMEAL Qty: 180 6RF Trelegy Ellipta 100-62.5-25 mcg blister with device inhalation DAILY varenicline tartrate 1 mg tablet 1 mg PO BID 30 Days Qty: 60 1RF ipratropium-albuterol 0.5 mg-3 mg(2.5 mg base)/3 mL solution for nebulization 3 ml inhalation Q6H 30 Days Qty: 180 1RF pantoprazole 40 mg tablet,delayed release (DR/EC) 40 mg PO BID Qty: 180 1RF Rx Instructions: take in am , 1 hour before food or medicine intake Referrals: [facility] [Provider Group] (Chronic abdominal pain GERD) Magalie Nicolas MD [Primary Care Provider] - (Chronic abdominal pain) Interventions: ED Discharge Assessment Last Done: 10/26/24 19:39 Print Language: Amharic
--- NOTE | 2024-10-26 12:27 | ECG_ITS ---
Test Reason : ABD PAIN Blood Pressure : */* mmHG Vent. Rate : 94 BPM Atrial Rate : 94 BPM P-R Int : 128 ms QRS Dur : 76 ms QT Int : 348 ms P-R-T Axes : 67 76 33 degrees QTcB Int : 435 ms Normal sinus rhythm Normal ECG When compared with ECG of 22-Oct-2024 12:50, No significant changes seen Referred By: Gena Mcgarry Electronically Signed By: SHANKAR GARCIA
[2024-10-26 12:46] LABS: MANUAL DIFF FLAG NO
[2024-10-26 12:49] LABS: Basophils Absolute Auto 0.1 X10*3/uL (0.0-0.2); Basophils Percent Auto 0.6 % (0-2); Eosinophils Absolute Auto 0.2 X10*3/uL (0.0-0.4); Eosinophils Percent Auto 1.4 % (0-4); Hematocrit 37.7 % (37.0-47.0); Hemoglobin 11.9 g/dl (12.0-16.0); Imm Gran Abs Auto 0.04 X10*3/uL (0.00-0.03); Imm Gran Pct Auto 0.4 % (0.0-0.4); Lymphocytes Absolute Auto 2.2 X10*3/uL (1.2-4.9); Lymphocytes Percent Auto 20.2 % (20-40); Mean Corpuscular HGB Conc 31.6 g/dl (31.0-35.0); Mean Corpuscular Hemoglobin 27.5 pg (27.0-33.0); Mean Corpuscular Volume 87.3 fL (80.0-98.0); Mean Platelet Volume 9.2 fL (9.4-12.3); Monocytes Absolute Auto 0.6 X10*3/uL (0.1-1.2); Monocytes Percent Auto 5.8 % (2-11); Neutrophils Absolute Auto 7.7 x10*3/uL (2.0-8.3); Neutrophils Percent Auto 71.6 % (45-73); Platelet Count 278 X10*3/uL (160-400); Red Blood Count 4.32 X10*6/uL (4.20-5.50); Red Cell Distribution Width 15.4 % (11.0-16.0); White Blood Count 10.8 X10*3/uL (4.8-10.8)
[2024-10-26 13:11] LABS: Troponin-I High Sensitivity 2.7 ng/L (<3.5-17.0)
[2024-10-26 13:15] LABS: Alanine Aminotransferase 8 U/L (0-31); Albumin Level 4.2 g/dL (3.5-5.0); Alkaline Phosphatase 78 U/L (39-117); Anion Gap 15 (12-20); Aspartate Amino Transferase 11 U/L (5-31); Bilirubin Direct < 0.2 mg/dL (0.0-0.5); Bilirubin Total 0.2 mg/dL (0.0-1.0); Blood Urea Nitrogen 8 mg/dL (9-16); Calcium 10.1 mg/dL (8.4-10.2); Carbon Dioxide 23 mmol/L (22-29); Chloride 106 mmol/L (96-108); Creatinine Clr Calc Pharmacy 65.8; Estimated Glomerular Filt Rate > 60; Glucose Random 204 mg/dL (60-115); Lipase 16 U/L (8-78); Magnesium 1.3 mg/dL (1.6-2.6); Potassium 3.6 mmol/L (3.3-5.1); Sodium 140 mmol/L (135-145); Total Protein 7.2 g/dL (6.5-8.0)
--- NOTE | 2024-10-26 14:53 | PC.NURSE ---
pt is a difficult stick- pt awaiting US guided IV- manager cardiac cath applied, ekg performed
[2024-10-26 15:04] LABS: Troponin-I High Sensitivity 3.5 ng/L (<3.5-17.0)
[2024-10-26] MEDS: Magnesium Sulfate/H2O 2 GM/50 ML PIGGYBACK IV (15:08)
[2024-10-26 16:05] VITALS: BP 142/58; PULSE 93; RESP 18; TEMP 36.9; O2SAT 96
[2024-10-26] MEDS: iohexoL 350 MG/ML 100 ML INFUS..BTL IV (16:08)
[2024-10-26 18:23] LABS: Appearance Urine Clear; Color Urine Yellow; Glucose Urine UA Negative (Negative); Leukocyte Esterase Urine Negative (Negative); Nitrite Urine Negative (Negative); PH 5.5 (5.0-9.0); Specific Gravity - Urine >= 1.030 (1.005-1.025); Urine Blood Negative (Negative); Urine Ketones Trace mg/dL (Negative); Urine Protein Trace mg/dL (Neg-Trace)
[2024-10-26] MEDS: Famotidine/PF 20 MG/2 ML VIAL IVPUSH (18:30)
--- NOTE | 2024-10-26 18:33 | PC.NURSE ---
pt medicated per order
[2024-10-26 19:36] VITALS: BP 152/56; PULSE 90; RESP 20; TEMP 36.8; O2SAT 95
[2024-10-26 19:39] VITALS: BP 152/56; PULSE 90; RESP 20; TEMP 36.8; O2SAT 95
== END 2024-10-26 19:43 | disposition home or self-care (01) ==
PROVIDERS: Physician Assistant; Physician Assistant Medical; Emergency Provider Emergency Medicine; PCP Internal Medicine
DX: K21.9 Gastro-esophageal reflux disease without esophagitis (principal); K59.00 Constipation, unspecified; R10.2 Pelvic and perineal pain; E11.9 Type 2 diabetes mellitus without complications; Z79.899 Other long term (current) drug therapy; Z79.84 Long term (current) use of oral hypoglycemic drugs
CPT/HCPCS: 36415; 74177; 80048; 80076; 81003; 83690; 83735; 84484; 85025; 93005; 96365; 96366; 96375; 99284; J3475; Q9967

== ENCOUNTER → 2024-10-26 12:27 | Outpatient (BNV) | payer OTHER, SELFPAY | PROVIDERS: Emergency Provider Emergency Medicine; PCP Internal Medicine; Visit Provider Internal Medicine | DX: R10.9 Unspecified abdominal pain (principal) | CPT/HCPCS: 93010 ==

== ENCOUNTER → 2024-10-26 14:06 | Outpatient (BNV) | payer OTHER, SELFPAY | PROVIDERS: Emergency Provider Emergency Medicine; PCP Internal Medicine; Visit Provider Radiology Diagnostic Radiology | DX: R93.421 Abnormal radiologic findings on diagnostic imaging of right kidney (principal) | CPT/HCPCS: 74177 ==

== ENCOUNTER 2024-10-27 13:55 | Emergency (ER) | payer OTHER, SELFPAY ==
[2024-10-27 14:03] VITALS: BP 146/44; PULSE 92; RESP 18; TEMP 36.6; O2SAT 94; BMI 24.2
--- NOTE | 2024-10-27 14:03 | ED_ITS ---
HPI - General Adult General Chief complaint: Abdominal Pain Stated complaint: abd pain Time Seen by Provider: 10/27/24 17:09 History of Present Illness ED Provider: Taina MORALES narrative: The patient is a 64-year-old woman who comes to the emergency room complaining of midabdominal pain that has been bothering her for several months. She was here yesterday with the same complaint. She had a negative CT scan of her abdomen. Unremarkable labs. 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 She has a Gastroenterology appointment next month in November with a doctor in [place]. She says she is on pantoprazole. She says that her boyfriend drove her to the hospital today because of ongoing discomfort. She has vomiting. when asked about whether she might be constipated she says that she is on Linzess and that she has been moving her bowels. Related Data Home Medications ?Medication ?Instructions ?Recorded ?Confirmed aspirin 81 mg tablet,delayed 81 mg PO BEDTIME 01/10/21 09/28/24 release (Adult Low Dose Aspirin) psyllium husk 0.52 gram capsule 1.04 g PO BID Constipation 02/28/24 09/28/24 (Fiber Laxative (psyllium husk)) metformin 1,000 mg tablet 1,000 mg PO BID 05/06/24 09/28/24 acetaminophen 650 mg 650 mg PO TID PRN Pain 05/30/24 09/28/24 tablet,extended release ferrous sulfate 324 mg (65 mg 324 mg PO DAILY 05/30/24 09/28/24 iron) tablet,delayed release linaclotide 72 mcg capsule 72 mcg PO DAILY 07/12/24 09/28/24 (Linzess) famotidine 40 mg tablet 40 mg PO BEDTIME 07/26/24 09/28/24 simethicone 180 mg capsule 180 mg PO QID 07/26/24 09/28/24 (Anti-Gas Ultra Strength) sitagliptin phosphate 100 mg 100 mg PO DAILY 07/26/24 09/28/24 tablet (Januvia) fluticasone fur. 100 mcg-umeclid inhalation DAILY 09/28/24 09/28/24 62.5 mcg-vilant 25 mcg inhalat.powder (Trelegy Ellipta) Previous Rx's ?Medication ?Instructions ?Recorded blood-glucose meter ([place] #1 ea 02/18/22 Lite Meter kit) lancets 28 gauge (FreeStyle #100 ea 01/06/22 Lancets) FreeStyle Lite Strips (blood sugar #100 ea 03/10/22 diagnostic) flash glucose sensor (FreeStyle #6 ea 02/19/23 Cristian 2 Sensor kit) flash glucose scanning reader #1 ea 03/26/23 (FreeStyle Cristian 2 [place]) magnesium oxide 400 mg (241.3 mg 400 mg PO DAILY #7 tabs 06/01/24 magnesium) tablet ipratropium 0.5 mg-albuterol 3 mg 3 ml inhalation Q6H wheezing 1 06/21/24 (2.5 mg base)/3 mL nebulization month #180 mL soln losartan 50 mg tablet 50 mg PO DAILY #90 tabs 07/11/24 rosuvastatin 5 mg tablet 5 mg PO DAILY #90 tabs 07/11/24 metoclopramide HCl 10 mg tablet 20 mg (2 x 10 mg) PO TIDWMEAL #180 07/12/24 (Reglan) tabs amlodipine 5 mg tablet 5 mg PO DAILY #90 tabs 07/21/24 cholecalciferol (vitamin D3) 50 50 mcg PO DAILY #90 caps 07/21/24 mcg (2,000 unit) capsule benzonatate 100 mg capsule 100 mg PO TID PRN cough #30 caps 08/13/24 methocarbamol 500 mg tablet 500 mg PO TID PRN Muscle Spasm #30 08/13/24 tabs pantoprazole 40 mg tablet,delayed 40 mg PO BID #180 tabs 08/18/24 release baclofen 10 mg tablet 10 mg PO TID 30 days #90 tabs 08/24/24 aluminum hydrox-magnesium carb 254 10 ml PO QID PRN dyspepsia #355 mL 08/31/24 mg-237.5 mg/5 mL oral suspension (Gaviscon Extra Strength) varenicline tartrate 1 mg tablet 1 mg PO BID 30 days #60 tabs 09/28/24 gabapentin 800 mg tablet 800 mg PO TID 30 days #90 tabs 10/05/24 cefuroxime axetil 500 mg tablet 500 mg PO BID 5 days #10 tabs 10/10/24 doxycycline hyclate 100 mg capsule 100 mg PO BID 5 days #10 caps 10/10/24 famotidine 40 mg tablet (Pepcid) 40 mg PO DAILY 10 days #10 tabs 10/26/24 ondansetron 4 mg disintegrating 4 mg PO Q6H PRN nausea and 10/27/24 tablet vomiting #10 tabs sucralfate 1 gram tablet 1 g PO TID PRN abdominal pain #60 10/27/24 tabs Allergies Allergy/AdvReac Type Severity Reaction Status Date / Time amoxicillin [AMOXICILLIN] Allergy Intermediate RASH Verified 10/27/24 14:10 Review of Systems 2 Review of Systems: Yes all other systems are reviewed and are negative FORMERLY [facility], [facility] Past Medical History Medical History Heavy cigarette smoker History of pneumonia COPD mixed type Hypochromic anemia Gastritis Diabetic gastroparesis Diastolic CHF with preserved left ventricular function, NYHA class 2 Chronic hypercapnic respiratory failure Mixed dyslipidemia Type 2 diabetes mellitus with other diabetic kidney complication Essential hypertension Smoker unmotivated to quit Postlaminectomy syndrome of cervical region Seasonal allergic rhinitis Degenerative disc disease, cervical Postmenopause Dyslipidemia Gastroparesis GERD (gastroesophageal reflux disease) Surgical History H/O cervical discectomy History of esophagogastroduodenoscopy (EGD) Hx of colonoscopy Family History Family History Mother Diabetes Sister Diabetes Mental health disorder Brother Diabetes Father HTN (hypertension) Social History Social History Household Members: Significant Other Housing: Apartment Housing Other:: mobile home Are you a primary spiritual care coordinator to a significant other at home: No Do you presently have 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) Alcohol intake: never Comment: Commode/ Hi Flow O2 Patient Tobacco Use Status: Current everyday Tobacco user Tobacco use type: Cigarette Cigarette Packs Per Day: 0.5 Cigarettes Per Day: 10 Years Smoked: 51 e-Cigarette/Vaping Use: Never Used Second Hand Smoke Exposure: Yes Advance Directives Date on File: 08/02/23 service: No Current occupational status: unemployed and disabled Gender identity: Female Cognitive needs: No Hearing needs: No Vision needs: Yes Physical Exam ED Vital Signs: Vital Signs - 24 hr 10/27/24 14:03 10/27/24 17:54 10/27/24 18:36 Temperature 97.9 F 98.7 F 98.7 F Pulse Rate 92 81 81 Respiratory Rate 18 16 16 Blood Pressure 146/44 H 160/70 H 160/70 H Pulse Oximetry 94 95 95 Oxygen Delivery Method Nasal Cannula Nasal Cannula Nasal Cannula BMI result Body Mass Index 24.2 Const Other: The patient is a 64-year-old woman who was asleep when I walked into the room. She woke easily with gentle stimulation. She was wearing nasal oxygen which is apparently baseline for her. She did not seem ill or in distress. HENMT Other: Face is symmetrical. Mucous membranes moist. The posterior pharynx is unremarkable. Eyes General: appearance normal, both eyes and all related structures Neck Neck: Yes normal visual inspection, Yes no lymphadenopathy and Yes no JVD Resp Effort & Inspection: normal respiratory effort Auscultation: clear to auscultation bilaterally Cardio Rate: regular rate Rhythm: regular rhythm Heart sounds: S1 normal heart sound present and S2 normal heart sound present GI Other: The abdomen is soft and does not seem tender. Skin Other: Skin is pale and dry General skin exam: no rashes or lesions noted Neuro Other: the patient is awake and alert. She seems to have normal mental status. Cranial nerves are grossly intact. She moves her extremities normally and appropriately. Extrem Other: No calf swelling or tenderness. Course Course Course Narrative: This is a rapid medical exam performed by Srinivas Munson NP: Additional HPI, ROS, PE not included below will be deferred to primary provider. Patient is a 64-year-old female with history of smoking, HTN, renal cell carcinoma, T2DM, chronic idiopathic constipation, COPD on 2lpm at baseline, gastroparesis, hypochromic anemia, GERD presenting to the ED with complaint of abdominal pain. Seen in this ED for same on 10/16, 10/22, 10/26. Describes as periumbilical. Patient's nurse navigator called, spoke with Dr. Mae who is recommending 7.5mg of mirtazepine QHS, increasing her bowel regimen, and a bland and blended diet (Ensure, etc) until patient can be seen by GI in November. They also recommend that if patient is PO challenged, that it be with a shake such as Ensure. Plan: labs, UA Medical Decision Making Medical Decision Making MDM Narrative: The patient is a 64-year-old female. She is on chronic home oxygen. She is a smoker who still smokes. She seems to have chronic abdominal pains and has been had multiple ER visits recently because of abdominal pains including an ER visit yesterday. She has had several CT scans of the abdomen and pelvis which have not shown any acute problems. Her labs today are unremarkable. She is on a proton pump inhibitor. I will prescribe sucralfate which she may try on an as-needed basis and also ondansetron. I reviewed the images from her CT scan yesterday. I did not see anything on the CT scan it made me think she was significantly constipated. 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 Lab Data 10/27/24 14:16 10/27/24 14:16 Labs: Lab Results 10/27/24 10/27/24 Range/Units 14:16 16:23 WBC 9.6 (4.8-10.8) X10*3/uL RBC 4.48 (4.20-5.50) X10*6/uL Hgb 12.2 (12.0-16.0) g/dl Hct 37.7 (37.0-47.0) % MCV 84.2 (80.0-98.0) fL MCH 27.2 (27.0-33.0) pg MCHC 32.4 (31.0-35.0) g/dl RDW 15.4 (11.0-16.0) % Plt Count 315 (160-400) X10*3/uL MPV 9.4 (9.4-12.3) fL Immature Gran % (Auto) 0.4 (0.0-0.4) % Neut % (Auto) 73.5 H (45-73) % Lymph % (Auto) 18.7 L (20-40) % Ford % (Auto) 6.3 (2-11) % Eos % (Auto) 0.6 (0-4) % Baso % (Auto) 0.5 (0-2) % Lymph # (Auto) 1.8 (1.2-4.9) X10*3/uL [place] # (Auto) 0.6 (0.1-1.2) X10*3/uL Eos # (Auto) 0.1 (0.0-0.4) X10*3/uL Baso # (Auto) 0.1 (0.0-0.2) X10*3/uL Abs Immat Gran (auto) 0.04 H (0.00-0.03) X10*3/uL Absolute Neuts (auto) 7.1 (2.0-8.3) x10*3/uL Absolute Nucleated RBC 0.000 (0.0-0.012) X10*3/uL Nucleated RBC % (auto) 0.0 (0.0-0.2) /100WBC Sodium 144 (135-145) mmol/L Potassium 3.5 (3.3-5.1) mmol/L Chloride 104 (96-108) mmol/L Carbon Dioxide 31 H (22-29) mmol/L Anion Gap 13 (12-20) BUN 6 L (9-16) mg/dL Creatinine 0.46 L (0.5-1.4) mg/dL Estim Creat Clear Calc 85.8 Estimated GFR > 60 Random Glucose 150 H (60-115) mg/dL Calcium 9.1 D (8.4-10.2) mg/dL Magnesium 1.6 (1.6-2.6) mg/dL Total Bilirubin 0.2 (0.0-1.0) mg/dL AST 12 (5-31) U/L ALT 8 (0-31) U/L Alkaline Phosphatase 72 (39-117) U/L C-Reactive Protein < 0.10 (< or = 0.50) mg/dL Total Protein 7.1 (6.5-8.0) g/dL Albumin 4.3 (3.5-5.0) g/dL Lipase 13 (8-78) U/L Urine Color Yellow Urine Appearance Turbid Urine pH 8.0 (5.0-9.0) Ur Specific [place] 1.020 (1.005-1.025) Urine Protein Trace (Neg-Trace) mg/dL Urine Glucose (UA) Negative (Negative) mg/dL Urine Ketones 15 (Negative) mg/dL Urine Blood Negative (Negative) Urine Nitrite Negative (Negative) Ur Leukocyte Esterase Negative (Negative) Discharge Plan Discharge Clinical Impression: Abdominal pain Patient Disposition: Home, Self-Care Additional Instructions: your blood testing today is very reassuring. I suspect that your pains may be related to stomach acid problems. Please make you continue your pantoprazole. I have sent a prescription for a new medication, sucralfate ( Carafate). This is a stomach soothing medication. You may use this up to 3 times a day as needed. Additionally I have sent a prescription for ondansetron ( Zofran) which you may use as needed for nausea. Please follow up with your regular doctor. 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 Return to the emergency room if significantly worse. Prescriptions: New sucralfate 1 gram tablet 1 g PO TID PRN (Reason: abdominal pain) Qty: 60 0RF ondansetron 4 mg tablet,disintegrating 4 mg PO Q6H PRN (Reason: nausea and vomiting) Qty: 10 0RF No Action (DME) lancets [FreeStyle Lancets] 28 gauge misc See Rx Instructions .Route Qty: 100 5RF Rx Instructions: As directed twice a day AC (DME) FreeStyle Lite Strips Strip See Rx Instructions .Route Qty: 100 0RF Rx Instructions: check fasting blood sugar twice a day before meals (DME) FreeStyle Cristian 2 Sensor Kit See Rx Instructions .Route Qty: 6 3RF Rx Instructions: Test blood sugar 4 times per day (DME) FreeStyle Cristian 2 [place] Misc See Rx Instructions .Route Qty: 1 0RF Rx Instructions: test blood sugar 4 times per day rosuvastatin 5 mg tablet 5 mg PO DAILY Qty: 90 1RF losartan 50 mg tablet 50 mg PO DAILY Qty: 90 1RF amlodipine 5 mg tablet 5 mg PO DAILY Qty: 90 1RF cholecalciferol (vitamin D3) 50 mcg (2,000 unit) capsule 50 mcg PO DAILY Qty: 90 1RF baclofen 10 mg tablet 10 mg PO TID 30 Days Qty: 90 6RF gabapentin 800 mg tablet 800 mg PO TID 30 Days Qty: 90 6RF psyllium husk [Fiber Laxative (psyllium husk)] 0.52 gram capsule 1.04 g PO BID metformin 1,000 mg tablet 1,000 mg PO BID Gaviscon Extra Strength 254-237.5 mg/5 mL suspension 10 ml PO QID PRN (Reason: dyspepsia) Qty: 355 0RF cefuroxime axetil 500 mg tablet 500 mg PO BID 5 Days Qty: 10 0RF doxycycline hyclate 100 mg capsule 100 mg PO BID 5 Days Qty: 10 0RF acetaminophen 650 mg Tablet Extended Release 650 mg PO TID PRN (Reason: Pain) ferrous sulfate 324 mg (65 mg iron) tablet,delayed release (DR/EC) 324 mg PO DAILY magnesium oxide 400 mg (241.3 mg magnesium) Tablet 400 mg PO DAILY Qty: 7 0RF simethicone [Anti-Gas Ultra Strength] 180 mg capsule 180 mg PO QID famotidine 40 mg tablet 40 mg PO BEDTIME Januvia 100 mg tablet 100 mg PO DAILY methocarbamol 500 mg Tablet 500 mg PO TID PRN (Reason: Muscle Spasm) Qty: 30 0RF benzonatate 100 mg Capsule 100 mg PO TID PRN (Reason: cough) Qty: 30 0RF famotidine [Pepcid] 40 mg tablet 40 mg PO DAILY 10 Days Qty: 10 0RF aspirin [Adult Low Dose Aspirin] 81 mg tablet,delayed release (DR/EC) 81 mg PO BEDTIME (DME) blood-glucose meter [FreeStyle Lite Meter] Kit See Rx Instructions .Route Qty: 1 0RF Rx Instructions: As directed twice a day before meals Linzess 72 mcg capsule 72 mcg PO DAILY metoclopramide HCl [Reglan] 10 mg tablet 20 mg PO TIDWMEAL Qty: 180 6RF Trelegy Ellipta 100-62.5-25 mcg blister with device inhalation DAILY varenicline tartrate 1 mg tablet 1 mg PO BID 30 Days Qty: 60 1RF ipratropium-albuterol 0.5 mg-3 mg(2.5 mg base)/3 mL solution for nebulization 3 ml inhalation Q6H 30 Days Qty: 180 1RF pantoprazole 40 mg tablet,delayed release (DR/EC) 40 mg PO BID Qty: 180 1RF Rx Instructions: take in am , 1 hour before food or medicine intake Referrals: Magalie Nicolas MD [Primary Care Provider] - Interventions: ED Discharge Assessment Last Done: 10/27/24 18:36 Discharge Date/Time: 10/27/24 18:38 Print Language: [place]
[2024-10-27 14:33] LABS: MANUAL DIFF FLAG NO
[2024-10-27 14:35] LABS: Basophils Absolute Auto 0.1 X10*3/uL (0.0-0.2); Basophils Percent Auto 0.5 % (0-2); Eosinophils Absolute Auto 0.1 X10*3/uL (0.0-0.4); Eosinophils Percent Auto 0.6 % (0-4); Hematocrit 37.7 % (37.0-47.0); Hemoglobin 12.2 g/dl (12.0-16.0); Imm Gran Abs Auto 0.04 X10*3/uL (0.00-0.03); Imm Gran Pct Auto 0.4 % (0.0-0.4); Lymphocytes Absolute Auto 1.8 X10*3/uL (1.2-4.9); Lymphocytes Percent Auto 18.7 % (20-40); Mean Corpuscular HGB Conc 32.4 g/dl (31.0-35.0); Mean Corpuscular Hemoglobin 27.2 pg (27.0-33.0); Mean Corpuscular Volume 84.2 fL (80.0-98.0); Mean Platelet Volume 9.4 fL (9.4-12.3); Monocytes Absolute Auto 0.6 X10*3/uL (0.1-1.2); Monocytes Percent Auto 6.3 % (2-11); Neutrophils Absolute Auto 7.1 x10*3/uL (2.0-8.3); Neutrophils Percent Auto 73.5 % (45-73); Platelet Count 315 X10*3/uL (160-400); Red Blood Count 4.48 X10*6/uL (4.20-5.50); Red Cell Distribution Width 15.4 % (11.0-16.0); White Blood Count 9.6 X10*3/uL (4.8-10.8)
[2024-10-27 14:52] LABS: Alanine Aminotransferase 8 U/L (0-31); Albumin Level 4.3 g/dL (3.5-5.0); Alkaline Phosphatase 72 U/L (39-117); Anion Gap 13 (12-20); Aspartate Amino Transferase 12 U/L (5-31); Bilirubin Total 0.2 mg/dL (0.0-1.0); Blood Urea Nitrogen 6 mg/dL (9-16); Calcium 9.1 mg/dL (8.4-10.2); Carbon Dioxide 31 mmol/L (22-29); Chloride 104 mmol/L (96-108); Creatinine Clr Calc Pharmacy 85.8; Estimated Glomerular Filt Rate > 60; Glucose Random 150 mg/dL (60-115); Lipase 13 U/L (8-78); Magnesium 1.6 mg/dL (1.6-2.6); Potassium 3.5 mmol/L (3.3-5.1); Sodium 144 mmol/L (135-145); Total Protein 7.1 g/dL (6.5-8.0)
[2024-10-27 16:32] LABS: Appearance Urine Turbid; Color Urine Yellow; Glucose Urine UA Negative (Negative); Leukocyte Esterase Urine Negative (Negative); Nitrite Urine Negative (Negative); Urine Blood Negative (Negative); Urine Ketones 15 mg/dL (Negative); Urine Protein Trace mg/dL (Neg-Trace)
[2024-10-27 17:35] LABS: C Reactive Protein < 0.10 mg/dL (< or = 0.50)
[2024-10-27 17:54] VITALS: BP 160/70; PULSE 81; RESP 16; TEMP 37.1; O2SAT 95
[2024-10-27 18:36] VITALS: BP 160/70; PULSE 81; RESP 16; TEMP 37.1; O2SAT 95
== END 2024-10-27 18:38 | disposition home or self-care (01) ==
PROVIDERS: Registered Nurse Emergency; Emergency Provider Emergency Medicine; PCP Internal Medicine
DX: R10.9 Unspecified abdominal pain (principal); R11.10 Vomiting, unspecified; F17.210 Nicotine dependence, cigarettes, uncomplicated; Z79.899 Other long term (current) drug therapy
CPT/HCPCS: 36415; 80053; 81003; 83690; 83735; 85025; 86140; 99283

== ENCOUNTER 2024-11-01 13:28 | Outpatient (AMB) | payer OTHER, SELFPAY ==
--- NOTE | 2024-11-01 13:32 | MHC.OFFVIS ---
Vital Signs 11/01/24 13:45 Height 4 ft 9 in Weight 112 lb 6.972 oz BMI 24.3 BP 136/62 Blood Pressure Location Rt brachial Position Sitting Pulse 94 Pulse Source Pulse Oximeter Pulse Oximetry (%) 90 L Oxygen Delivery Method Room Air Intake Visit Reasons: abd pain Intake Note: ESTABLISHED PATIENT for abd pain, ED fuv. Seen in ED x5 days ago. Chief Complaint; C/O epigastric pain, reflux w/ dysphagia. Pt states that PPI still makes a difference but might not be as effective as it used to be. No additional concerns mentioned. Vice President Quality Assurance Required: No Accompanied by: Spouse Allergies amoxicillin [AMOXICILLIN] Allergy (Intermediate, Verified 11/06/24 14:52) RASH HPI HPI abd pain: Details: LAST VISIT WITH JULIUS CHRISTY [employer]LINE RESERVATION AGENT 08/18/2024 Plan She is here today with her significant other who is supportive. Lack of appetite continues w/o much effect from 20mg reglan tid. She also has continued nausea. Is slowly seeing all of the specialists, no new information on RCC. US showed ? gallstones but not borne out on CT. Her PCP changed her from my bid lansoparzole to qd pantoprazole (why??), so I will get bid coverage. Her respiratory status status again decompensated, she was just d/c'd 08/13, had abx and steroids. because of her frequent admissions short term rehab for resp stabilization had been discussed - maybe in future. Her continuous poor respiratory function really limits what studies we can do in terms of her gastric presentation. It is also limiting the treatment of her renal cancer and I am uncertain how much this is contributing to her overall problems of nausea and lack of appetite. LAST ED VISIT 10/27/2024 Course Course Narrative: This is a rapid medical exam performed by Srinivas Munson NP: Additional HPI, ROS, PE not included below will be deferred to primary provider. Patient is a 64-year-old female with history of smoking, HTN, renal cell carcinoma, T2DM, chronic idiopathic constipation, COPD on 2lpm at baseline, gastroparesis, hypochromic anemia, GERD presenting to the ED with complaint of abdominal pain. Seen in this ED for same on 10/16, 10/22, 10/26. Describes as periumbilical. Patient's nurse navigator called, spoke with Dr. Mae who is recommending 7.5mg of mirtazepine QHS, increasing her bowel regimen, and a bland and blended diet (Ensure, etc) until patient can be seen by GI in November. They also recommend that if patient is PO challenged, that it be with a shake such as Ensure. Plan: labs, UA Medical Decision Making Medical Decision Making MDM Narrative: The patient is a 64-year-old female. She is on chronic home oxygen. She is a smoker who still smokes. She seems to have chronic abdominal pains and has been had multiple ER visits recently because of abdominal pains including an ER visit yesterday. She has had several CT scans of the abdomen and pelvis which have not shown any acute problems. Her labs today are unremarkable. She is on a proton pump inhibitor. I will prescribe sucralfate which she may try on an as-needed basis and also ondansetron. I reviewed the images from her CT scan yesterday. I did not see anything on the CT scan it made me think she was significantly constipated. 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 Laboratory Tests 10/27/24 14:16 WBC 9.6 Hgb 12.2 Hct 37.7 MCV 84.2 AST 12 ALT 8 Alkaline Phosphatase 72 C-Reactive Protein < 0.[address] OF ABDOMEN AND PELVIS 10/26/2024 FINDINGS: LUNG BASES: There is platelike atelectasis or scarring right middle lobe and lingula. Subcentimeter nodules right lower lobe are stable compared to previous exam.. Heart size and the great vessels are normal. There is mild coronary artery calcifications. LIVER, GALLBLADDER, AND BILIARY TREE: The liver is normal in size, shape, and attenuation. No focal hepatic lesion or biliary ductal dilatation is present. The gallbladder is unremarkable with no evidence of radiopaque gallstones, gallbladder wall thickening, or obvious pericholecystic inflammatory changes. PANCREAS: Unremarkable. SPLEEN: Unremarkable. ADRENAL GLANDS: Unremarkable. KIDNEYS AND URETERS: The kidneys are normal in size, shape, and attenuation. No hydronephrosis, hydroureter, or calculi seen. No perinephric stranding. Again visualizes a complex cystic and solid mass in lower pole right kidney. The composite measurement is 3.6 x 2.4 cm. There is a moderate perinephric stranding similar previous study. The findings are most suggestive of post cryoablation changes. No perinephric hematoma seen. The left kidney is unremarkable. BLADDER: Unremarkable. GASTROINTESTINAL TRACT: Scattered stool and gas seen in the colon. The small bowel loops are unremarkable. Appendix is not seen. There is no free air or free fluid seen. ABDOMINAL WALL: No significant hernia is appreciated. LYMPH NODES: Normal. VASCULAR: Unremarkable. PELVIC VISCERA: The uterus is midline and appears unremarkable. There is no adnexal mass or free fluid in the cul-de-sac. There is a low-lying cervix and rectum inferior to pelvic diaphragm suspicious of rectocele and cervical serial OSSEOUS STRUCTURES: No aggressive lytic or sclerotic process seen. CT/CT abdomen pelvis w IV con IMPRESSION: Complex mass right kidney lower pole with sequelae of cryoablation. There is perinephric stranding which is stable compared to last CT. No hemorrhage seen. There is no hydronephrosis. Mild constipation. TODAY'S VISIT: Patient is here today for requested visit. Patient's stopped in the office yesterday and requested to be seen by another provider. Patient had total of 4 ED visit in the past 2-1/2 weeks complaining of abdominal pain. Patient previously seen by November with last visit in August. Provider is out on family leave and this provider agreed to see patient. Patient reports epigastric pain and acid reflux. Currently is taking pantoprazole, however she feels like it is not helping. Patient admits to smoking cigarettes daily. Admits that not always following GERD precautions diet. Reviewed all visits from previous appointments as well as ED visits. Patient admits that she does not empty her bowels well. Sometimes no BM for 2-3 days. Currently not on any bowel management. Patient admits to feeling full quickly, will send her for gastric emptying study. Patient reports dyspepsia without dysphagia or odynophagia. Denies any melena, hematochezia, unintentional weight loss or ribbon like stools. CT scan from October 26 ED visit showed mild constipation. No other acute processes within the GI system found. Patient denies any fever or chills. Denies any nausea or vomiting. Denies any diarrhea or mucus in her stools. [facility] Medical History Heavy cigarette smoker History of pneumonia COPD mixed type Hypochromic anemia Gastritis Diabetic gastroparesis Diastolic CHF with preserved left ventricular function, NYHA class 2 Chronic hypercapnic respiratory failure Mixed dyslipidemia Type 2 diabetes mellitus with other diabetic kidney complication Essential hypertension Smoker unmotivated to quit Postlaminectomy syndrome of cervical region Seasonal allergic rhinitis Degenerative disc disease, cervical Postmenopause Dyslipidemia Gastroparesis GERD (gastroesophageal reflux disease) Surgical History H/O cervical discectomy History of esophagogastroduodenoscopy (EGD) Hx of colonoscopy Family History Mother Diabetes Sister Diabetes Mental health disorder Brother Diabetes Father HTN (hypertension) Social History Household Members: Significant Other Housing: Apartment Housing Other:: mobile home Are you a primary healthcare associate to a significant other at home: No Do you presently have visiting nurse or other home services: Yes (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) Alcohol intake: never Comment: Commode/ Hi Flow O2 Patient Tobacco Use Status: Current everyday Tobacco user Tobacco use type: Cigarette Cigarette Packs Per Day: 0.5 Cigarettes Per Day: 10 Years Smoked: 51 e-Cigarette/Vaping Use: Never Used Second Hand Smoke Exposure: Yes Advance Directives Date on File: 08/02/23 service: No Current occupational status: unemployed and disabled Gender identity: Female Cognitive needs: No Hearing needs: No Vision needs: Yes Review of Systems Const Denies weight gain and Denies weight loss ENT Reports no additional complaints, Denies dysphagia and Denies odynophagia Card Reports no additional complaints Resp Reports no additional complaints GI Reports abdominal pain (Epigastric), Denies belching, Denies melena, Reports bloating, Denies change in bowel habits, Reports constipation, Denies dysphagia, Denies excessive flatus, Reports dyspepsia, Reports heartburn, Denies diarrhea, Denies loose stools, Denies nausea, Denies odynophagia and Denies vomiting Reports no additional complaints Musc Reports no additional complaints Neuro Reports no additional complaints Psych Reports no additional complaints Endo Reports no additional complaints Physical Exam Vital Signs: Last Vital Signs Pulse 94 11/01/24 13:45 BP 136/62 11/01/24 13:45 Pulse Ox 90 L 11/01/24 13:45 Oxygen Delivery Method Room Air 11/01/24 13:45 BMI result Body Mass Index 24.3 Const General: healthy appearing, no acute distress and well developed Nutritional Appearance: well nourished Orientation/consciousness: patient oriented x3 Resp Effort & Inspection: normal respiratory effort, able to speak in complete sentences, no tracheal deviation and symmetric chest movement Auscultation: clear to auscultation bilaterally Cardio Rate: regular rate GI Inspection: Yes normal to inspection and No distended Palpation (GI): Soft to palpation, not firm, nontender and No hepatosplenomegaly present Auscultation: normal bowel sounds General: Yes no CVA tenderness Back/Spine/Pelvis Back: no CVA tenderness Skin General skin exam: elasticity normal, turgor normal and dry skin Neuro General: patient oriented x3 Psych Appearance: grossly normal Mental Status: mental status grossly normal Assessment & Plan Assessment & Plan (1) Hypochromic anemia: Code(s): D50.9 - Iron deficiency anemia, unspecified Category: Medical (2) Chronic idiopathic constipation: Code(s): K59.04 - Chronic idiopathic constipation Category: Medical (3) Abdominal pain: Code(s): R10.9 - Unspecified abdominal pain Qualifiers: Abdominal location: epigastric Qualified Code(s): R10.13 - Epigastric pain (4) Postprandial abdominal bloating: Code(s): R14.0 - Abdominal distension (gaseous) (5) Postprandial epigastric pain: Code(s): R10.13 - Epigastric pain Plan Long discussion with patient about trying to quit smoking or at least decrease the amount that she smokes. Dietary changes. Smaller meals and more often. Low FODMAP diet to decrease the bloating if possible. Will send patient for gastric emptying study. Will try different PPI, lansoprazole and pantoprazole tried in the past without effect, however patient admits not to be following GERD precautions diet. Will check transglutaminase and lipase. Patient is not moving her bowels regularly. Admits to incomplete bowel movements. Will check thyroid study. Will check her vitamins: B12, folate and vitamin-D level as well as check magnesium. History of hypomagnesemia in the past. Will try her on Linzess. Will decrease the amount of sucralfate to twice a day in the afternoon and at bedtime. Patient has appointment with Julius Mejia NP in November and she was urged to keep that appointment. Patient was encouraged to call our office if she will have any additional concerning symptoms. Patient's provider will be back in the office next week. Both patient and her are agreeable to plan of care and verbalizes understanding of instructions. They were given the opportunity to ask questions and all questions answered. Thank you for allowing me to participate in her care Orders: Orders Vitamin B12 and Folate 11/01/24 R19.7 - Diarrhea, unspecified Vitamin D 25-OH (D2 and D3) 11/01/24 E55.9 - Vitamin D deficiency, unspecified Magnesium 11/01/24 N18.9 - Chronic kidney disease, unspecified Lipase 11/01/24 R10.9 - Unspecified abdominal pain TSH reflex Free T4 11/01/24 K59.00 - Constipation, unspecified Transglutaminase IgA 11/01/24 R10.9 - Unspecified abdominal pain NM gastric emptying study 11/01/24 R68.81 - Early satiety Medications: New esomeprazole magnesium (Nexium) 40 mg PO DAILY 30 caps 2RF K21.9 - Gastro-esophageal reflux disease without esophagitis linaclotide (Linzess) 145 mcg PO DAILY 30 caps 2RF Changed From sucralfate 1 g PO TID PRN 60 tabs 0RF abdominal pain To sucralfate 1 g PO BID 60 tabs 2RF abdominal pain Discontinued famotidine Discontinued Reason: Doctor's Order 40 mg PO DAILY 10 days 10 tabs 0RF Coding Level of Care Code Est Pt Level 4 (44482) Complex EM visit Add On G2211 Diagnoses Hypochromic anemia D50.9 Chronic idiopathic constipation K59.04 Epigastric pain R10.13 Abdominal location: epigastric Postprandial abdominal bloating R14.0 Postprandial epigastric pain R10.13 Time Spent (min) 45 Comment 30 minutes spent with patient and additional 15 minutes spent reviewing her records
[2024-11-01 13:45] VITALS: BP 136/62; PULSE 94; O2SAT 90; BMI 24.3
== END 2024-11-01 15:43 | disposition home or self-care (01) ==
LOC: HO.HGI 13:29
PROVIDERS: PCP Internal Medicine; Visit Provider Nurse Practitioner Family
DX: D50.9 Iron deficiency anemia, unspecified (principal); K59.04 Chronic idiopathic constipation; R10.13 Epigastric pain; R14.0 Abdominal distension (gaseous)
CPT/HCPCS: 99214; G2211

== ENCOUNTER → 2024-11-01 13:28 | Outpatient (BNVA) | payer OTHER, SELFPAY | PROVIDERS: PCP Internal Medicine; Visit Provider Nurse Practitioner Family | DX: K59.04 Chronic idiopathic constipation (principal); D50.9 Iron deficiency anemia, unspecified; R10.13 Epigastric pain; R14.0 Abdominal distension (gaseous) | CPT/HCPCS: 99212 ==

== ENCOUNTER 2024-11-06 13:59 | Emergency (ER) | payer OTHER, SELFPAY ==
--- NOTE | ~2024-11-06 | XR_ITS ---
EXAMINATION: XR ABDOMEN KUB CLINICAL INDICATION: pain COMPARISON: Correlation made with CT abdomen and pelvis 10/26/2024. TECHNIQUE: AP view of the abdomen. FINDINGS: There is no evidence of abnormally dilated loop of small bowel or colon. There are vascular calcifications. No additional soft tissue calcifications. No organomegaly or large abdominal mass. No indirect evidence of free air. No suspicious bone lesion. There are mild spinal degenerative changes. Lung bases are clear. XR/XR KUB IMPRESSION: No acute process of the abdomen. Electronically signed by: Rui Lomax MD 11/06/2024 04:14 PM EDT
--- NOTE | 2024-11-06 14:50 | ED_ITS ---
HPI - General Adult General Chief complaint: Abdominal Pain Stated complaint: abd pain Related Data Home Medications ?Medication ?Instructions ?Recorded ?Confirmed aspirin 81 mg tablet,delayed 81 mg PO BEDTIME 01/10/21 09/28/24 release (Adult Low Dose Aspirin) psyllium husk 0.52 gram capsule 1.04 g PO BID Constipation 02/28/24 09/28/24 (Fiber Laxative (psyllium husk)) metformin 1,000 mg tablet 1,000 mg PO BID 05/06/24 09/28/24 acetaminophen 650 mg 650 mg PO TID PRN Pain 05/30/24 09/28/24 tablet,extended release ferrous sulfate 324 mg (65 mg 324 mg PO DAILY 05/30/24 09/28/24 iron) tablet,delayed release simethicone 180 mg capsule 180 mg PO QID 07/26/24 09/28/24 (Anti-Gas Ultra Strength) sitagliptin phosphate 100 mg 100 mg PO DAILY 07/26/24 09/28/24 tablet (Januvia) fluticasone fur. 100 mcg-umeclid inhalation DAILY 09/28/24 09/28/24 62.5 mcg-vilant 25 mcg inhalat.powder (Trelegy Ellipta) azithromycin 250 mg tablet 250 mg PO 3XW 11/01/24 Previous Rx's ?Medication ?Instructions ?Recorded blood-glucose meter (FreeStyle #1 ea 10/03/21 Lite Meter kit) lancets 28 gauge (FreeStyle #100 ea 01/06/22 Lancets) FreeStyle Lite Strips (blood sugar #100 ea 03/10/22 diagnostic) flash glucose sensor (FreeStyle #6 ea 02/19/23 Cristian 2 Sensor kit) flash glucose scanning reader #1 ea 03/26/23 (FreeStyle Cristian 2 [place]) magnesium oxide 400 mg (241.3 mg 400 mg PO DAILY #7 tabs 06/01/24 magnesium) tablet ipratropium 0.5 mg-albuterol 3 mg 3 ml inhalation Q6H wheezing 1 06/21/24 (2.5 mg base)/3 mL nebulization month #180 mL soln losartan 50 mg tablet 50 mg PO DAILY #90 tabs 07/11/24 rosuvastatin 5 mg tablet 5 mg PO DAILY #90 tabs 07/11/24 metoclopramide HCl 10 mg tablet 20 mg (2 x 10 mg) PO TIDWMEAL #180 07/12/24 (Reglan) tabs amlodipine 5 mg tablet 5 mg PO DAILY #90 tabs 07/21/24 cholecalciferol (vitamin D3) 50 50 mcg PO DAILY #90 caps 07/21/24 mcg (2,000 unit) capsule methocarbamol 500 mg tablet 500 mg PO TID PRN Muscle Spasm #30 08/13/24 tabs pantoprazole 40 mg tablet,delayed 40 mg PO BID #180 tabs 08/18/24 release baclofen 10 mg tablet 10 mg PO TID 30 days #90 tabs 08/24/24 aluminum hydrox-magnesium carb 254 10 ml PO QID PRN dyspepsia #355 mL 08/31/24 mg-237.5 mg/5 mL oral suspension (Gaviscon Extra Strength) varenicline tartrate 1 mg tablet 1 mg PO BID 30 days #60 tabs 09/28/24 gabapentin 800 mg tablet 800 mg PO TID 30 days #90 tabs 10/05/24 ondansetron 4 mg disintegrating 4 mg PO Q6H PRN nausea and 10/27/24 tablet vomiting #10 tabs esomeprazole magnesium 40 mg 40 mg PO DAILY #30 caps 11/01/24 capsule,delayed release (Nexium) linaclotide 145 mcg capsule 145 mcg PO DAILY #30 caps 11/01/24 (Linzess) sucralfate 1 gram tablet 1 g PO BID abdominal pain #60 tabs 11/01/24 Allergies Allergy/AdvReac Type Severity Reaction Status Date / Time amoxicillin [AMOXICILLIN] Allergy Intermediate RASH Verified 11/06/24 14:52 [facility] Past Medical History Medical History Heavy cigarette smoker History of pneumonia COPD mixed type Hypochromic anemia Gastritis Diabetic gastroparesis Diastolic CHF with preserved left ventricular function, NYHA class 2 Chronic hypercapnic respiratory failure Mixed dyslipidemia Type 2 diabetes mellitus with other diabetic kidney complication Essential hypertension Smoker unmotivated to quit Postlaminectomy syndrome of cervical region Seasonal allergic rhinitis Degenerative disc disease, cervical Postmenopause Dyslipidemia Gastroparesis GERD (gastroesophageal reflux disease) Surgical History H/O cervical discectomy History of esophagogastroduodenoscopy (EGD) Hx of colonoscopy Family History Family History Mother Diabetes Sister Diabetes Mental health disorder Brother Diabetes Father HTN (hypertension) Social History Social History Household Members: Significant Other Housing: Apartment Housing Other:: mobile home Are you a primary pet care assistant to a significant other at home: No Do you presently have visiting nurse or other home services: 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 (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) Alcohol intake: never Comment: Commode/ Hi Flow O2 Patient Tobacco Use Status: Current everyday Tobacco user Tobacco use type: Cigarette Cigarette Packs Per Day: 0.5 Cigarettes Per Day: 10 Years Smoked: 51 e-Cigarette/Vaping Use: Never Used Second Hand Smoke Exposure: Yes Advance Directives: Yes Advance Directives on File: Yes Advance Directives Date on File: 08/02/23 service: No Current occupational status: unemployed and disabled Gender identity: Female Cognitive needs: No Hearing needs: No Vision needs: Yes Physical Exam ED Vital Signs: BMI result Body Mass Index 24.7 Course Course Course Narrative: This is a rapid medical exam performed by Tammy Edwards PA-C. The patient is a 64-year-old female with a history of COPD on supplemental oxygen, diabetes, chronic constipation, GERD who presents with the abdominal pain since this morning. Pain over central abdomen, on exam the patient's abdomen is soft, nondistended nontender obese. Plan to obtain screening labs and a KUB. The patient was stable and can return to the waiting room pending her full medical assessment. Medical Decision Making Lab Data 11/06/24 15:19 11/06/24 15:19 Labs: Lab Results 11/06/24 Range/Units 15:19 WBC 10.2 (4.8-10.8) X10*3/uL RBC 4.57 (4.20-5.50) X10*6/uL Hgb 12.4 (12.0-16.0) g/dl Hct 39.3 (37.0-47.0) % MCV 86.0 (80.0-98.0) fL MCH 27.1 (27.0-33.0) pg MCHC 31.6 (31.0-35.0) g/dl RDW 14.8 (11.0-16.0) % Plt Count 319 (160-400) X10*3/uL MPV 9.5 (9.4-12.3) fL Immature Gran % (Auto) 0.3 (0.0-0.4) % Neut % (Auto) 60.1 (45-73) % Lymph % (Auto) 28.6 (20-40) % [place] % (Auto) 9.0 (2-11) % Eos % (Auto) 1.2 (0-4) % Baso % (Auto) 0.8 (0-2) % Lymph # (Auto) 2.9 (1.2-4.9) X10*3/uL [place] # (Auto) 0.9 (0.1-1.2) X10*3/uL Eos # (Auto) 0.1 (0.0-0.4) X10*3/uL Baso # (Auto) 0.1 (0.0-0.2) X10*3/uL Abs Immat Gran (auto) 0.03 (0.00-0.03) X10*3/uL Absolute Neuts (auto) 6.1 (2.0-8.3) x10*3/uL Absolute Nucleated RBC 0.000 (0.0-0.012) X10*3/uL Nucleated RBC % (auto) 0.0 (0.0-0.2) /100WBC Sodium 142 (135-145) mmol/L Potassium 3.4 (3.3-5.1) mmol/L Chloride 105 (96-108) mmol/L Carbon Dioxide 28 (22-29) mmol/L Anion Gap 12 (12-20) BUN 5 L (9-16) mg/dL Creatinine 0.44 L (0.5-1.4) mg/dL Estim Creat Clear Calc 90.5 Estimated GFR > 60 Random Glucose 98 (60-115) mg/dL Calcium 9.9 D (8.4-10.2) mg/dL Magnesium 1.4 L* (1.6-2.6) mg/dL Total Bilirubin 0.2 (0.0-1.0) mg/dL AST 14 (5-31) U/L ALT 7 (0-31) U/L Alkaline Phosphatase 72 (39-117) U/L Total Protein 6.9 (6.5-8.0) g/dL Albumin 4.3 (3.5-5.0) g/dL Lipase 15 (8-78) U/L Discharge Plan Discharge Clinical Impression: Abdominal pain Patient Disposition: Left W/O Completing Treatment Prescriptions: No Action (DME) lancets [FreeStyle Lancets] 28 gauge misc See Rx Instructions .Route Qty: 100 5RF Rx Instructions: As directed twice a day AC (DME) FreeStyle Lite Strips Strip See Rx Instructions .Route Qty: 100 0RF Rx Instructions: check fasting blood sugar twice a day before meals (DME) FreeStyle Cristian 2 Sensor Kit See Rx Instructions .Route Qty: 6 3RF Rx Instructions: Test blood sugar 4 times per day (DME) FreeStyle Cristian 2 [place] Misc See Rx Instructions .Route Qty: 1 0RF Rx Instructions: test blood sugar 4 times per day rosuvastatin 5 mg tablet 5 mg PO DAILY Qty: 90 1RF losartan 50 mg tablet 50 mg PO DAILY Qty: 90 1RF amlodipine 5 mg tablet 5 mg PO DAILY Qty: 90 1RF cholecalciferol (vitamin D3) 50 mcg (2,000 unit) capsule 50 mcg PO DAILY Qty: 90 1RF baclofen 10 mg tablet 10 mg PO TID 30 Days Qty: 90 6RF gabapentin 800 mg tablet 800 mg PO TID 30 Days Qty: 90 6RF psyllium husk [Fiber Laxative (psyllium husk)] 0.52 gram capsule 1.04 g PO BID metformin 1,000 mg tablet 1,000 mg PO BID Gaviscon Extra Strength 254-237.5 mg/5 mL suspension 10 ml PO QID PRN (Reason: dyspepsia) Qty: 355 0RF ondansetron 4 mg tablet,disintegrating 4 mg PO Q6H PRN (Reason: nausea and vomiting) Qty: 10 0RF acetaminophen 650 mg Tablet Extended Release 650 mg PO TID PRN (Reason: Pain) ferrous sulfate 324 mg (65 mg iron) tablet,delayed release (DR/EC) 324 mg PO DAILY magnesium oxide 400 mg (241.3 mg magnesium) Tablet 400 mg PO DAILY Qty: 7 0RF simethicone [Anti-Gas Ultra Strength] 180 mg capsule 180 mg PO QID Januvia 100 mg tablet 100 mg PO DAILY methocarbamol 500 mg Tablet 500 mg PO TID PRN (Reason: Muscle Spasm) Qty: 30 0RF aspirin [Adult Low Dose Aspirin] 81 mg tablet,delayed release (DR/EC) 81 mg PO BEDTIME (DME) blood-glucose meter [FreeStyle Lite Meter] Kit See Rx Instructions .Route Qty: 1 0RF Rx Instructions: As directed twice a day before meals metoclopramide HCl [Reglan] 10 mg tablet 20 mg PO TIDWMEAL Qty: 180 6RF Trelegy Ellipta 100-62.5-25 mcg blister with device inhalation DAILY varenicline tartrate 1 mg tablet 1 mg PO BID 30 Days Qty: 60 1RF azithromycin 250 mg tablet 250 mg PO 3XW Linzess 145 mcg capsule 145 mcg PO DAILY Qty: 30 2RF sucralfate 1 gram tablet 1 g PO BID Qty: 60 2RF esomeprazole magnesium [Nexium] 40 mg capsule,delayed release(DR/EC) 40 mg PO DAILY Qty: 30 2RF ipratropium-albuterol 0.5 mg-3 mg(2.5 mg base)/3 mL solution for nebulization 3 ml inhalation Q6H 30 Days Qty: 180 1RF pantoprazole 40 mg tablet,delayed release (DR/EC) 40 mg PO BID Qty: 180 1RF Rx Instructions: take in am , 1 hour before food or medicine intake Discharge Date/Time: 11/06/24 21:50
[2024-11-06 14:51] VITALS: BP 153/64; PULSE 90; RESP 18; TEMP 37.1; O2SAT 97; BMI 24.7
[2024-11-06 15:25] LABS: MANUAL DIFF FLAG NO
[2024-11-06 15:27] LABS: Basophils Absolute Auto 0.1 X10*3/uL (0.0-0.2); Basophils Percent Auto 0.8 % (0-2); Eosinophils Absolute Auto 0.1 X10*3/uL (0.0-0.4); Eosinophils Percent Auto 1.2 % (0-4); Hematocrit 39.3 % (37.0-47.0); Hemoglobin 12.4 g/dl (12.0-16.0); Imm Gran Abs Auto 0.03 X10*3/uL (0.00-0.03); Imm Gran Pct Auto 0.3 % (0.0-0.4); Lymphocytes Absolute Auto 2.9 X10*3/uL (1.2-4.9); Lymphocytes Percent Auto 28.6 % (20-40); Mean Corpuscular HGB Conc 31.6 g/dl (31.0-35.0); Mean Corpuscular Hemoglobin 27.1 pg (27.0-33.0); Mean Platelet Volume 9.5 fL (9.4-12.3); Monocytes Absolute Auto 0.9 X10*3/uL (0.1-1.2); Neutrophils Absolute Auto 6.1 x10*3/uL (2.0-8.3); Neutrophils Percent Auto 60.1 % (45-73); Platelet Count 319 X10*3/uL (160-400); Red Blood Count 4.57 X10*6/uL (4.20-5.50); Red Cell Distribution Width 14.8 % (11.0-16.0); White Blood Count 10.2 X10*3/uL (4.8-10.8)
[2024-11-06 15:48] LABS: Alanine Aminotransferase 7 U/L (0-31); Albumin Level 4.3 g/dL (3.5-5.0); Anion Gap 12 (12-20); Aspartate Amino Transferase 14 U/L (5-31); Bilirubin Total 0.2 mg/dL (0.0-1.0); Blood Urea Nitrogen 5 mg/dL (9-16); Calcium 9.9 mg/dL (8.4-10.2); Carbon Dioxide 28 mmol/L (22-29); Chloride 105 mmol/L (96-108); Creatinine Clr Calc Pharmacy 90.5; Estimated Glomerular Filt Rate > 60; Glucose Random 98 mg/dL (60-115); Lipase 15 U/L (8-78); Magnesium 1.4 mg/dL (1.6-2.6); Potassium 3.4 mmol/L (3.3-5.1); Sodium 142 mmol/L (135-145); Total Protein 6.9 g/dL (6.5-8.0)
[2024-11-06 15:56] LABS: Alkaline Phosphatase 72 U/L (39-117)
== END 2024-11-06 21:50 | disposition left against medical advice (07) ==
PROVIDERS: Physician Assistant Medical; Emergency Provider Emergency Medicine; PCP Internal Medicine
DX: R10.2 Pelvic and perineal pain (principal); J44.9 Chronic obstructive pulmonary disease, unspecified; Z99.81 Dependence on supplemental oxygen; E11.9 Type 2 diabetes mellitus without complications; F17.210 Nicotine dependence, cigarettes, uncomplicated; Z79.899 Other long term (current) drug therapy; Z79.84 Long term (current) use of oral hypoglycemic drugs
CPT/HCPCS: 36415; 74018; 80053; 83690; 83735; 85025; 99281; 99283

== ENCOUNTER → 2024-11-06 14:48 | Outpatient (BNV) | payer OTHER, SELFPAY | PROVIDERS: PCP Internal Medicine; Visit Provider Radiology Diagnostic Radiology | DX: R10.9 Unspecified abdominal pain (principal) | CPT/HCPCS: 74018 ==

== ENCOUNTER 2024-11-14 15:11 | Outpatient (AMB) | payer OTHER, SELFPAY ==
[2024-11-14 15:17] VITALS: BP 145/63; PULSE 98; BMI 24.8
--- NOTE | 2024-11-14 15:17 | MHC.OFFVIS ---
Vital Signs 11/14/24 15:17 Height 4 ft 9 in Weight 114 lb 10.246 oz BMI 24.8 BP 145/63 H Blood Pressure Location Lt brachial Position Sitting Pulse 98 Intake Visit Reasons: ER FUV, 2 week FUV. Intake Note: Maria Elena returns to in office folow up of abdominal pain. CC: The patient has been in the ER a few times since her last OV and she states that she continues feeling the same. She c/o abdominal pain, nausea, constipation and diarrhea but more diarrhea. 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: No Allergies amoxicillin [AMOXICILLIN] Allergy (Intermediate, Verified 11/06/24 14:52) RASH HPI HPI ER FUV, 2 week FUV.: Details: Assessment & Plan (1) GERD (gastroesophageal reflux disease): Code(s): K21.9 - Gastro-esophageal reflux disease without esophagitis Category: Medical Qualifiers: Esophagitis presence: without esophagitis Qualified Code(s): K21.9 - Gastro-esophageal reflux disease without esophagitis (2) Gastritis: Code(s): K29.70 - Gastritis, unspecified, without bleeding Category: Medical Qualifiers: Chronicity: chronic Gastritis bleeding: without bleeding Gastritis type: unspecified gastritis Qualified Code(s): K29.50 - Unspecified chronic gastritis without bleeding (3) Gastroparesis: Code(s): K31.84 - Gastroparesis Category: Medical (4) Weight loss: Code(s): R63.4 - Abnormal weight loss Category: Medical Plan She is here today with her significant other who is supportive. Lack of appetite continues w/o much effect from 20mg reglan tid. She also has continued nausea. Is slowly seeing all of the specialists, no new information on RCC. US showed ? gallstones but not borne out on CT. Her PCP changed her from my bid lansoparzole to qd pantoprazole (why??), so I will get bid coverage. Her respiratory status status again decompensated, she was just d/c'd 08/13, had abx and steroids. because of her frequent admissions short term rehab for resp stabilization had been discussed - maybe in future. Her continuous poor respiratory function really limits what studies we can do in terms of her gastric presentation. It is also limiting the treatment of her renal cancer and I am uncertain how much this is contributing to her overall problems of nausea and lack of appetite. Next avail. Medications: Changed From pantoprazole take in am , 1 hour before food or medicine intake 40 mg PO DAILY 30 tabs 5RF K21.9 - Gastro-esophageal reflux disease without esophagitis, K29.50 - Unspecified chronic gastritis without bleeding To pantoprazole take in am , 1 hour before food or medicine intake 40 mg PO BID 180 tabs 1RF K21.9 - Gastro-esophageal reflux disease without esophagitis, K29.50 - Unspecified chronic gastritis without bleeding Plan Maria Elena Kingston I am making some changes to you medicines to try to control your pain. 1.?? Please keep a written journal of when you pain happens, what you were doing when it started, how long it lasts. 2.?? I am prescribing two new medicines, lansoprazole and famotidine. Take the lansoprazole in the morning and the famotidine at bedtime. 3.?? Stop the omeprazole when you get the lansoprazole. 4.?? For the diarrhea, I am changing the Linzess 145mcg to LInzess 72mcg. 5.?? I want to see you in 4 weeks. Call me if you don?t get any of the new medicines. Medications: New lansoprazole 30 mg PO DAILY 30 caps 6RF K21.9 - Gastro-esophageal reflux disease without esophagitis, R10.13 - Epigastric pain linaclotide (Linzess) 72 mcg PO QAM 30 caps 6RF Discontinued linaclotide (Linzess) Discontinued Reason: Doctor's Order 145 mcg PO QAM [address] abdomen and pelvis 10/26/2024 MPRESSION: Complex mass right kidney lower pole with sequelae of cryoablation. There is perinephric stranding which is stable compared to last CT. No hemorrhage seen. There is no hydronephrosis. Mild constipation. * LABS: Laboratory Tests 11/06/24 15:19 WBC 10.2 Hgb 12.4 Hct 39.3 Plt Count 319 Estimated GFR > 60 Magnesium 1.4 L* Total Bilirubin 0.2 AST 14 ALT 7 Alkaline Phosphatase 72 TODAY'S VISIT SHE IS HERE TODAY AFTER BEING seen in the ER 8 times since the beginning of the year for abdominal pain. At 1 of the visit they put her on sucralfate 4 times a day which likely greatly exacerbated her gastroparesis and constipation. She was then seen by Zayda mireles and a gastric emptying study was ordered despite the fact that she has well-established severe gastroparesis. She has also had 5 cat scans just by our ER if this year! She is having diarrhea most of the time, no CIC. Lnzess had been decreased to 72 micro g but then she saw Zayda who increased it back to 145 micro g. However, she also had diarrhea on the 72 micro g dose so we will completely stop this medication. I am also going to decrease her metoclopramide 10 mg to 1 tablet 4 times a day to see if this is over driving her bowels and potentially causing the pain. Again, the pain is just above the umbilicus in the middle of the abdomen. She does not have it every day she sometimes goes days without but then it will get started again. So far as they can tell it is not related to food eaten. It also does not appear to be related to constipation. I have advised them if they have to go back to the ER to tell them she has had 5 cat scans this year as this is starting become a very high dose of radiation and we do not want to cause her any future health problems. Also, they are not finding anything new. I am going to have her stop the sucralfate as this is likely just blocking her other medications with her complex medication regimen and it certainly has not helped her. This was prescribed by the ER 4 times a day. However seems like she is taking it twice a day. 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 Essential hypertension Smoker unmotivated to quit Postlaminectomy syndrome of cervical region Seasonal allergic rhinitis Degenerative disc disease, cervical Postmenopause Dyslipidemia Gastroparesis GERD (gastroesophageal reflux disease) Surgical History H/O cervical discectomy History of esophagogastroduodenoscopy (EGD) Hx of colonoscopy Family History Mother Diabetes Sister Diabetes Mental health disorder Brother Diabetes Father HTN (hypertension) Social History Household Members: Significant Other Housing: Apartment Housing Other:: mobile home Are you a primary medicare 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 to a significant other at home: No Do you presently have visiting nurse or other home services: Yes ([employer]) Alcohol intake: never Comment: Commode/ Hi Flow O2 Patient Tobacco Use Status: Current everyday Tobacco user Tobacco use type: Cigarette Cigarette Packs Per Day: 0.5 Cigarettes Per Day: 10 Years Smoked: 51 e-Cigarette/Vaping Use: Never Used Second Hand Smoke Exposure: Yes Advance Directives Date on File: 08/02/23 service: No Current occupational status: unemployed and disabled Gender identity: Female Cognitive needs: No Hearing needs: No Vision needs: Yes Review of Systems Const Denies fatigue, Denies fever(s), Denies night sweats, Denies poor appetite and Denies weight loss Eyes Details: glasses Reports requires corrective lenses ENT Reports Normal hearing present, Denies dental pain, Denies dysphagia, Denies hearing loss, Denies mouth pain, Denies odynophagia, Denies throat swelling, Denies tongue swelling and Reports other (Dentition adequate) Card Reports no additional complaints Resp Reports no additional complaints GI Details: Reports abdominal pain, Denies melena, Reports bloating, Denies hematochezia, Denies constipation, Denies GI cramping, Denies dysphagia, Denies excessive flatus, Denies early satiety, Reports heartburn, Denies diarrhea, Reports loose stools, Denies nausea, Denies odynophagia, Denies vomiting and Denies hematemesis Skin/Breast Denies pruritus, Denies lesions, Denies rash and Denies jaundice Neuro Reports Normal hearing present and Denies Abnormal speech present Endo Denies fatigue Aller/Immun Denies throat swelling and Denies tongue swelling Physical Exam Vital Signs: Last Vital Signs Pulse 98 11/14/24 15:17 BP 145/63 H 11/14/24 15:17 BMI result Body Mass Index 24.8 Const General: cooperative, no acute distress, well developed and well groomed Nutritional Appearance: well nourished and obese centrally obese Orientation/consciousness: oriented to person, oriented to place and oriented to time Limitations: No language barrier and other limitations HEENT Head: Yes normocephalic and Yes atraumatic Eyes General: appearance normal, both eyes and all related structures Pupils: Equal, round and reactive pupils present Neck Neck: Yes normal visual inspection and Yes no lymphadenopathy Thyroid: Thyroid normal Resp Effort & Inspection: normal respiratory effort and able to speak in complete sentences Auscultation: clear to auscultation bilaterally Cardio Rate: regular rate Rhythm: regular rhythm Heart sounds: Normal, physiologic split S2 sound present Peripheral pulses: radial pulses present and posterior tibial pulses present GI Other: marked central adiposity with distal muscle wasting. Inspection: Yes distended, No Abdominal panniculus present and Yes obesity Palpation (GI): Soft to palpation, Tenderness to palpation present (GI) (just above umbilicus) periumbilically, no guarding, not rigid and No hepatosplenomegaly present Percussion: Yes normal to percussion Auscultation: normal bowel sounds Rectal Exam - Female: deferred Skin General skin exam: no rashes or lesions noted, turgor normal, skin not dry, no jaundice, No spider nevi and no striae Rashes: no rashes Nails: normal Neuro General: oriented to person, oriented to place and oriented to time Cranial nerves: Yes Equal, round and reactive pupils present and Yes Normal hearing present Speech: No Abnormal speech present Extrem Other: generalized distal muscle wasting General: No clubbing, No cyanosis and No edema Psych Appearance: grossly normal and disheveled Mental Status: other Speech and movement: Slowed speech present (Psych) Affect: normal affect Attitude: cooperative Thought process: not confabulating and Impoverished thought process present Thought content: Normal thought content present Insight: Poor insight present (Psych) Judgement: Poor judgement present (Psych) Assessment & Plan Assessment & Plan (1) Abdominal pain: Code(s): R10.9 - Unspecified abdominal pain Category: Medical Qualifiers: Abdominal location: epigastric Qualified Code(s): R10.13 - Epigastric pain (2) Weight loss: Code(s): R63.4 - Abnormal weight loss Category: Medical (3) COPD mixed type: Comment: follows w/[facility] Pulmonology Code(s): J44.9 - Chronic obstructive pulmonary disease, unspecified Category: Medical (4) Gastroparesis: Code(s): K31.84 - Gastroparesis Category: Medical (5) GERD (gastroesophageal reflux disease): Code(s): K21.9 - Gastro-esophageal reflux disease without esophagitis Category: Medical Qualifiers: Esophagitis presence: without esophagitis Qualified Code(s): K21.9 - Gastro-esophageal reflux disease without esophagitis (6) Renal cell carcinoma: Code(s): C64.9 - Malignant neoplasm of unspecified kidney, except renal pelvis Category: Medical Qualifiers: Laterality: right Qualified Code(s): C64.1 - Malignant neoplasm of right kidney, except renal pelvis (7) Diarrhea: Code(s): R19.7 - Diarrhea, unspecified Category: Medical Plan SHE IS HERE TODAY AFTER BEING seen in the ER 8 times since the beginning of the year for abdominal pain. At 1 of the visit they put her on sucralfate 4 times a day which likely greatly exacerbated her gastroparesis and constipation. She was then seen by Zayda mireles and a gastric emptying study was ordered despite the fact that she has well-established severe gastroparesis. She has also had 5 cat scans just by our ER if this year! She is having diarrhea most of the time, no CIC. Lnzess had been decreased to 72 micro g but then she saw Zayda who increased it back to 145 micro g. However, she also had diarrhea on the 72 micro g dose so we will completely stop this medication. I am also going to decrease her metoclopramide 10 mg to 1 tablet 4 times a day to see if this is over driving her bowels and potentially causing the pain. Again, the pain is just above the umbilicus in the middle of the abdomen. She does not have it every day she sometimes goes days without but then it will get started again. So far as they can tell it is not related to food eaten. It also does not appear to be related to constipation. I have advised them if they have to go back to the ER to tell them she has had 5 cat scans this year as this is starting become a very high dose of radiation and we do not want to cause her any future health problems. Also, they are not finding anything new. I am going to have her stop the sucralfate as this is likely just blocking her other medications with her complex medication regimen and it certainly has not helped her. This was prescribed by the ER 4 times a day. However seems like she is taking it twice a day. Return office visit in 2 weeks; I am cancelling gastric emptying study ordered by Zayda as she just had 1 in 2018 showing severe gastroparesis so this would be pointless. If we do not find the problem I might want to do an empty consult because they would also have to weigh in whether EGD would be appropriate given her respiratory status. Orders: Orders NM gastric emptying study 11/01/24 R68.81 - Early satiety Medications: Refilled metoclopramide HCl (Reglan) 20 mg (2 x 10 mg) PO TIDWMEAL 180 tabs 6RF K31.84 - Gastroparesis Discontinued magnesium oxide Discontinued Reason: Insurance Denied 400 mg PO DAILY 7 tabs 0RF sucralfate Discontinued Reason: Doctor's Order 1 g PO BID 60 tabs 2RF abdominal pain linaclotide (Linzess) Discontinued Reason: Doctor's Order 145 mcg PO DAILY 30 caps 2RF Patient Instructions: Maria Elena Kingston 1.??? Stop the Linzess completely. I want to stop your diarrhea and this may be causing your pain. 2.??? Decrease the metoclopramide to 1 tablet 4 times a day. 3.??? You have had 5 Cat Scans this year, please tell the ER you have had this many if you have to go back as this is NOT HEALTHY IN TERMS OF THE RADIATION. 4.??? Stop the sucralfate. 5.??? I want to see you in 2 weeks. Coding Level of Care Code Est Pt Level 3 (88845) Diagnoses Abdominal pain R10.13 Abdominal location: epigastric Weight loss R63.4 COPD mixed type J44.9 Gastroparesis K31.84 Gastroesophageal reflux disease without esophagitis K21.9 Esophagitis presence: without esophagitis Renal cell carcinoma of right kidney C64.1 Laterality: right Diarrhea R19.7
== END 2024-11-14 16:01 | disposition home or self-care (01) ==
PROVIDERS: PCP Internal Medicine; Visit Provider Nurse Practitioner
DX: R10.13 Epigastric pain (principal); R63.4 Abnormal weight loss; J44.9 Chronic obstructive pulmonary disease, unspecified; K31.84 Gastroparesis; K21.9 Gastro-esophageal reflux disease without esophagitis; C64.1 Malignant neoplasm of right kidney, except renal pelvis; R19.7 Diarrhea, unspecified
CPT/HCPCS: 99213

== ENCOUNTER → 2024-11-14 15:11 | Outpatient (BNVA) | payer OTHER, SELFPAY | PROVIDERS: PCP Internal Medicine; Visit Provider Nurse Practitioner | DX: K21.9 Gastro-esophageal reflux disease without esophagitis (principal); K31.84 Gastroparesis; R10.13 Epigastric pain; R63.4 Abnormal weight loss; R19.7 Diarrhea, unspecified; C64.1 Malignant neoplasm of right kidney, except renal pelvis; J44.9 Chronic obstructive pulmonary disease, unspecified | CPT/HCPCS: 99212 ==

== ENCOUNTER 2024-11-21 09:47 | Emergency (ER) | payer OTHER, SELFPAY ==
[2024-11-21 09:56] VITALS: BP 171/80; PULSE 100; RESP 19; TEMP 36.6; O2SAT 94; BMI 24.7
--- NOTE | 2024-11-21 09:57 | ED.GENADULT ---
HPI - General Adult General Chief complaint: Abdominal Pain Stated complaint: Abd pain, weakness Time Seen by Provider: 11/21/24 11:28 Source: patient Mode of arrival: ambulatory Limitations: no limitations History of Present Illness ED Provider: Emily Beebe PA-C HPI narrative: 64 yo female with history of HTN, COPD on home O2, GERD, gastroparesis, gastritis, constipation, DM2 who presents to the ER for evaluation of generalized weakness, abdominal pain and nausea that started this morning. She has been to the ER several times recently for the same. She was seen by her GI provider 11/14 and she was started on lansoprazole and famotidine. she states she does not think she is taking the famotidine. she is not keeping the written pain journal like they suggested. she reports upset stomach, pain in the center of her abdomen with nausea but no vomiting. last had a BM yesterday and it was formed. no fevers, no urinary symptoms. pains in the abdomen are aching and come and go. MD complaint: abdominal pain and nausea Onset (ago): hour(s) Location: abdomen Radiation: non-radiation Severity: moderate Quality: aching Pain Consistency: intermittent Relieving factors: none Exacerbating factors: none Associated symptoms: syncope Treatments prior to arrival: none Related Data Home Medications ?Medication ?Instructions ?Recorded ?Confirmed aspirin 81 mg tablet,delayed 81 mg PO BEDTIME 01/10/21 09/28/24 release (Adult Low Dose Aspirin) metformin 1,000 mg tablet 1,000 mg PO BID 05/06/24 09/28/24 acetaminophen 650 mg 650 mg PO TID PRN Pain 05/30/24 09/28/24 tablet,extended release ferrous sulfate 324 mg (65 mg 324 mg PO DAILY 05/30/24 09/28/24 iron) tablet,delayed release simethicone 180 mg capsule 180 mg PO QID 07/26/24 09/28/24 (Anti-Gas Ultra Strength) sitagliptin phosphate 100 mg 100 mg PO DAILY 07/26/24 09/28/24 tablet (Januvia) fluticasone fur. 100 mcg-umeclid inhalation DAILY 09/28/24 09/28/24 62.5 mcg-vilant 25 mcg inhalat.powder (Trelegy Ellipta) azithromycin 250 mg tablet 250 mg PO 3XW 03/19/25 Previous Rx's ?Medication ?Instructions ?Recorded blood-glucose meter (FreeStyle #1 ea 10/03/21 Lite Meter kit) lancets 28 gauge (FreeStyle #100 ea 01/06/22 Lancets) FreeStyle Lite Strips (blood sugar #100 ea 03/10/22 diagnostic) flash glucose sensor (FreeStyle #6 ea 02/19/23 Cristian 2 Sensor kit) flash glucose scanning reader #1 ea 03/26/23 (FreeStyle Cristian 2 [place]) ipratropium 0.5 mg-albuterol 3 mg 3 ml inhalation Q6H wheezing 1 06/21/24 (2.5 mg base)/3 mL nebulization month #180 mL soln losartan 50 mg tablet 50 mg PO DAILY #90 tabs 07/11/24 rosuvastatin 5 mg tablet 5 mg PO DAILY #90 tabs 07/11/24 amlodipine 5 mg tablet 5 mg PO DAILY #90 tabs 07/21/24 cholecalciferol (vitamin D3) 50 50 mcg PO DAILY #90 caps 07/21/24 mcg (2,000 unit) capsule methocarbamol 500 mg tablet 500 mg PO TID PRN Muscle Spasm #30 08/13/24 tabs pantoprazole 40 mg tablet,delayed 40 mg PO BID #180 tabs 08/18/24 release baclofen 10 mg tablet 10 mg PO TID 30 days #90 tabs 08/24/24 aluminum hydrox-magnesium carb 254 10 ml PO QID PRN dyspepsia #355 mL 08/31/24 mg-237.5 mg/5 mL oral suspension (Gaviscon Extra Strength) gabapentin 800 mg tablet 800 mg PO TID 30 days #90 tabs 10/05/24 ondansetron 4 mg disintegrating 4 mg PO Q6H PRN nausea and 10/27/24 tablet vomiting #10 tabs esomeprazole magnesium 40 mg 40 mg PO DAILY #30 caps 11/01/24 capsule,delayed release (Nexium) metoclopramide HCl 10 mg tablet 20 mg (2 x 10 mg) PO TIDWMEAL #180 11/16/24 (Reglan) tabs psyllium husk 0.52 gram capsule 1.04 g (2 x 0.52 gram) PO BID #360 11/16/24 (Fiber Laxative (psyllium husk)) caps magnesium oxide 400 mg PO BEDTIME #30 caps 11/21/24 Allergies Allergy/AdvReac Type Severity Reaction Status Date / Time amoxicillin [AMOXICILLIN] Allergy Intermediate RASH Verified 11/21/24 09:57 Review of Systems Review of Systems: Yes all other systems are reviewed and are negative [facility] Past Medical History Medical History (Updated 11/21/24 @ 13:45 by ADRIANNA Louis) Abdominal pain Heavy cigarette smoker History of pneumonia COPD mixed type Hypochromic anemia Gastritis Diabetic gastroparesis Diastolic CHF with preserved left ventricular function, NYHA class 2 Chronic hypercapnic respiratory failure Mixed dyslipidemia Type 2 diabetes mellitus with other diabetic kidney complication Essential hypertension Smoker unmotivated to quit Postlaminectomy syndrome of cervical region Seasonal allergic rhinitis Degenerative disc disease, cervical Postmenopause Dyslipidemia Gastroparesis GERD (gastroesophageal reflux disease) Surgical History H/O cervical discectomy History of esophagogastroduodenoscopy (EGD) Hx of colonoscopy Family History Family History Mother Diabetes Sister Diabetes Mental health disorder Brother Diabetes Father HTN (hypertension) Social History Social History Household Members: Significant Other Housing: Apartment Housing Other:: mobile home Are you a primary healthcare market consultant to a significant other at home: No Do you presently have visiting nurse or other home services: Yes ([employer]) Alcohol intake: never Comment: Commode/ Hi Flow O2 Patient Tobacco Use Status: Current everyday Tobacco user Tobacco use type: Cigarette Cigarette Packs Per Day: 0.5 Cigarettes Per Day: 10 Years Smoked: 51 Smoked in Last 30 Days: Yes e-Cigarette/Vaping Use: Never Used Second Hand Smoke Exposure: Yes Use of substances other than those prescribed or required for medical reasons: No Advance Directives: Yes Advance Directives on File: Yes Advance Directives Date on File: 08/02/23 Do you have a plan to hurt others: No Plan Patient : No service: No Current occupational status: unemployed and disabled Gender identity: Female Cognitive needs: No Hearing needs: No Vision needs: Yes Physical Exam ED Vital Signs: Vital Signs - 24 hr 11/21/24 09:56 11/21/24 11:53 11/21/24 12:00 Temperature 98 F Pulse Rate 100 90 90 Respiratory Rate 19 20 20 Blood Pressure 171/80 H 144/66 H 144/66 H Pulse Oximetry 94 94 94 Oxygen Delivery Method Room Air Nasal Cannula Nasal Cannula Oxygen Flow Rate 2 2 11/21/24 14:00 11/21/24 14:15 11/21/24 14:15 Temperature 98.5 F 98.5 F Pulse Rate 85 85 85 Respiratory Rate 20 20 20 Blood Pressure 134/77 134/77 134/77 Pulse Oximetry 94 94 94 Oxygen Delivery Method Nasal Cannula Nasal Cannula Nasal Cannula Oxygen Flow Rate 2 2 BMI result Body Mass Index 24.7 Appearance: Alert. Oriented X3. No acute distress. appears older than stated age. Head: normocephalic, atraumatic. Eyes: Pupils equal, round and reactive to light. ENT: Pharynx normal. No tonsillar swelling or exudate. Neck: Normal inspection. Neck supple. CVS: Normal heart rate and rhythm. Pulses normal. Respiratory: No respiratory distress. Breath sounds normal. Abdomen: Soft and nontender to light palpation, mild tenderness to deep palpation of the periumbilical area, normal active +BS x4 Skin: Skin warm and dry. Normal skin color. Normal skin turgor. No rashes. Extremities: No lower extremity edema. No joint swelling. Neuro/psych: Oriented X 3. grossly normal, nonfocal. Normal speech and cognition. Course Course Course Narrative: This is a rapid medical exam performed by Srinivas Munson NP: Additional HPI, ROS, PE not included below will be deferred to primary provider. 11/21/24 09:58 Patient is a 64-year-old female with history of hypertension, type 2 diabetes, renal cell carcinoma, COPD, chronic idiopathic constipation, gastroparesis, hypochromic anemia, GERD presenting to the emergency department with complaint of weakness, generalized abdominal pain, nausea a constipation since this morning. States last bowel movement was yesterday. Denies vomiting or diarrhea. Plan: labs, UA, viral panel Medications Administered Discontinued Medications Generic Name Dose Route Start Last Admin Trade Name Freq PRN Reason Stop Dose Admin Magnesium Sulfate 2 gm in 50 mls @ 150 mls/hr 11/21/24 11:29 11/21/24 12:15 Magnesium Sulfate/H2o IV 11/21/24 11:48 Infused ONCE ONE Infusion Lactated Ringer's 1,000 mls @ 999 mls/hr 11/21/24 11:30 11/21/24 13:10 Lr IV 11/21/24 12:30 Infused .Q1H1M MOUSTAPHA Infusion Ondansetron HCl 4 mg 11/21/24 11:29 11/21/24 11:49 Ondansetron Hcl 4 Mg/2 Ml Vial IVPUSH 11/21/24 11:30 4 mg ONCE ONE Administration Medical Decision Making Medical Decision Making MDM Narrative: 64 yo female presenting for evaluation of generalized weakness, nausea and vague abdominal pain. upon review of chart this is the patient's 7th visit to the ER in the last 5 weeks for abdominal pain. She has had 4 CT scans and a KUB. She arrives today appearing comfortable. Abdominal exam is benign. labs reassuring. ua negative patient given zofran. she wants to eat. she is sleeping between care. records reviewed - at this time there is no further workup warranted today in the ER. advised to take the meds prescribed by her GI provider and start the journal. she has follow up appointment with GI coming up stable for d/c Differential Diagnosis Differential Diagnoses: The differential diagnosis associated with the presentation includes chronic abdominal pain, constipation, IBS, irritable bowel syndrome, anxiety, viral syndrome, low suspicion for acute infectious process Lab Data [facility] Lab Attestation statement: I reviewed the patient's lab results. mild leukocytosis, no major metabolic derangement 11/21/24 10:31 11/21/24 10:31 Labs: Lab Results 11/21/24 11/21/24 Range/Units 10:31 12:39 WBC 11.1 H (4.8-10.8) X10*3/uL RBC 4.52 (4.20-5.50) X10*6/uL Hgb 12.3 (12.0-16.0) g/dl Hct 38.7 (37.0-47.0) % MCV 85.6 (80.0-98.0) fL MCH 27.2 (27.0-33.0) pg MCHC 31.8 (31.0-35.0) g/dl RDW 14.7 (11.0-16.0) % Plt Count 312 (160-400) X10*3/uL MPV 9.4 (9.4-12.3) fL Immature Gran % (Auto) 0.5 H (0.0-0.4) % Neut % (Auto) 77.5 H (45-73) % Lymph % (Auto) 16.2 L (20-40) % [place] % (Auto) 4.3 (2-11) % Eos % (Auto) 0.9 (0-4) % Baso % (Auto) 0.6 (0-2) % Lymph # (Auto) 1.8 (1.2-4.9) X10*3/uL [place] # (Auto) 0.5 (0.1-1.2) X10*3/uL Eos # (Auto) 0.1 (0.0-0.4) X10*3/uL Baso # (Auto) 0.1 (0.0-0.2) X10*3/uL Abs Immat Gran (auto) 0.05 H (0.00-0.03) X10*3/uL Absolute Neuts (auto) 8.6 H (2.0-8.3) x10*3/uL Absolute Nucleated RBC 0.000 (0.0-0.012) X10*3/uL Nucleated RBC % (auto) 0.0 (0.0-0.2) /100WBC Sodium 141 (135-145) mmol/L Potassium 4.0 (3.3-5.1) mmol/L Chloride 105 (96-108) mmol/L Carbon Dioxide 29 (22-29) mmol/L Anion Gap 11 L (12-20) BUN 9 (9-16) mg/dL Creatinine 0.49 L (0.5-1.4) mg/dL Estim Creat Clear Calc 81.3 Estimated GFR > 60 Random Glucose 123 H (60-115) mg/dL Calcium 10.6 H D (8.4-10.2) mg/dL Magnesium 1.4 L* (1.6-2.6) mg/dL Total Bilirubin 0.2 (0.0-1.0) mg/dL AST 14 (5-31) U/L ALT 6 (0-31) U/L Alkaline Phosphatase 89 (39-117) U/L Troponin I High Sens < 2.7 (<3.5-17.0) ng/L Total Protein 6.8 (6.5-8.0) g/dL Albumin 4.4 (3.5-5.0) g/dL Lipase 16 (8-78) U/L Urine Color Yellow Urine Appearance Clear Urine pH 7.5 (5.0-9.0) Ur Specific [place] 1.010 (1.005-1.025) Urine Protein Negative (Neg-Trace) mg/dL Urine Glucose (UA) Negative (Negative) mg/dL Urine Ketones Negative (Negative) mg/dL Urine Blood Negative (Negative) Urine Nitrite Negative (Negative) Ur Leukocyte Esterase Negative (Negative) Influenza Type A (PCR) NEGATIVE (Negative) Influenza Type B (PCR) NEGATIVE (Negative) RSV RNA Qual (PCR) NEGATIVE (Negative) SARS-CoV-2 RNA (RT-PCR) NEGATIVE (Negative) External Record Review External record reviewed: Prior outpatient labs and Prior outpatient radiology Tests considered The following testing was considered but not selected: considered CT scan but she has had several recently and exam is benign Prescription Management I considered prescription management with: Pain Medication and Other (antiemetic, magnesium) Chronic Conditions Patient?s care impacted by: Other (chronic abdominal pain) Critical Care Time Critical Care Time Critical Care Time: No Discharge Plan Discharge Clinical Impression: Chronic abdominal pain Patient Disposition: Home, Self-Care Instructions: Chronic Abdominal Pain (ED) Additional Instructions: your magnesium level was low again take the prescribed magnesium supplement nightly your GI doctor wants you to be taking lansoprazole and famotidine they want you to keep a written journal of when your pain happens, what you were doing when it started, how long it lasts call your GI doctor to make a follow up appointment If you develop new or worsening symptoms call 911 or come back to the ER for further evaluation. Prescriptions: New magnesium oxide 400 mg magnesium capsule 400 mg PO BEDTIME Qty: 30 0RF No Action (DME) lancets [FreeStyle Lancets] 28 gauge misc See Rx Instructions .Route Qty: 100 5RF Rx Instructions: As directed twice a day AC (DME) FreeStyle Lite Strips Strip See Rx Instructions .Route Qty: 100 0RF Rx Instructions: check fasting blood sugar twice a day before meals (DME) FreeStyle Cristian 2 Sensor Kit See Rx Instructions .Route Qty: 6 3RF Rx Instructions: Test blood sugar 4 times per day (DME) FreeStyle Crist[place] 2 [place] [facility] [place] Rx Instructions .Route Qty: 1 0RF Rx Instructions: test blood sugar 4 times per day rosuvastatin 5 mg tablet 5 mg PO DAILY Qty: 90 1RF losartan 50 mg tablet 50 mg PO DAILY Qty: 90 1RF amlodipine 5 mg tablet 5 mg PO DAILY Qty: 90 1RF cholecalciferol (vitamin D3) 50 mcg (2,000 unit) capsule 50 mcg PO DAILY Qty: 90 1RF baclofen 10 mg tablet 10 mg PO TID 30 Days Qty: 90 6RF gabapentin 800 mg tablet 800 mg PO TID 30 Days Qty: 90 6RF metoclopramide HCl [Reglan] 10 mg tablet 20 mg PO TIDWMEAL Qty: 180 6RF psyllium husk [Fiber Laxative (psyllium husk)] 0.52 gram capsule 1.04 g PO BID Qty: 360 3RF metformin 1,000 mg tablet 1,000 mg PO BID Gaviscon Extra Strength 254-237.5 mg/5 mL suspension 10 ml PO QID PRN (Reason: dyspepsia) Qty: 355 0RF ondansetron 4 mg tablet,disintegrating 4 mg PO Q6H PRN (Reason: nausea and vomiting) Qty: 10 0RF acetaminophen 650 mg Tablet Extended Release 650 mg PO TID PRN (Reason: Pain) ferrous sulfate 324 mg (65 mg iron) tablet,delayed release (DR/EC) 324 mg PO DAILY simethicone [Anti-Gas Ultra Strength] 180 mg capsule 180 mg PO QID Januvia 100 mg tablet 100 mg PO DAILY methocarbamol 500 mg Tablet 500 mg PO TID PRN (Reason: Muscle Spasm) Qty: 30 0RF aspirin [Adult Low Dose Aspirin] 81 mg tablet,delayed release (DR/EC) 81 mg PO BEDTIME (DME) blood-glucose meter [FreeStyle Lite Meter] Kit See Rx Instructions .Route Qty: 1 0RF Rx Instructions: As directed twice a day before meals Trelegy Ellipta 100-62.5-25 mcg blister with device inhalation DAILY azithromycin 250 mg tablet 250 mg PO 3XW esomeprazole magnesium [Nexium] 40 mg capsule,delayed release(DR/EC) 40 mg PO DAILY Qty: 30 2RF ipratropium-albuterol 0.5 mg-3 mg(2.5 mg base)/3 mL solution for nebulization 3 ml inhalation Q6H 30 Days Qty: 180 1RF pantoprazole 40 mg tablet,delayed release (DR/EC) 40 mg PO BID Qty: 180 1RF Rx Instructions: take in am , 1 hour before food or medicine intake Referrals: [facility] [Provider Group] Magalie Nicolas MD [Primary Care Provider] - Interventions: ED Discharge Assessment Last Done: 11/21/24 14:15 Discharge Date/Time: 11/21/24 14:17 Print Language: [place]
--- NOTE | 2024-11-21 09:59 | ECG_ITS ---
Test Reason : ABD PAIN Blood Pressure : */* mmHG Vent. Rate : 93 BPM Atrial Rate : 93 BPM P-R Int : 120 ms QRS Dur : 80 ms QT Int : 376 ms P-R-T Axes : 61 80 53 degrees QTcB Int : 467 ms Normal sinus rhythm Normal ECG When compared with ECG of 26-Oct-2024 12:38, No significant change was found Referred By: Laly Munson Electronically Signed By: Allen Gant
[2024-11-21 10:36] LABS: MANUAL DIFF FLAG NO
[2024-11-21 10:42] LABS: Basophils Absolute Auto 0.1 X10*3/uL (0.0-0.2); Basophils Percent Auto 0.6 % (0-2); Eosinophils Absolute Auto 0.1 X10*3/uL (0.0-0.4); Eosinophils Percent Auto 0.9 % (0-4); Hematocrit 38.7 % (37.0-47.0); Hemoglobin 12.3 g/dl (12.0-16.0); Imm Gran Abs Auto 0.05 X10*3/uL (0.00-0.03); Imm Gran Pct Auto 0.5 % (0.0-0.4); Lymphocytes Absolute Auto 1.8 X10*3/uL (1.2-4.9); Lymphocytes Percent Auto 16.2 % (20-40); Mean Corpuscular HGB Conc 31.8 g/dl (31.0-35.0); Mean Corpuscular Hemoglobin 27.2 pg (27.0-33.0); Mean Corpuscular Volume 85.6 fL (80.0-98.0); Mean Platelet Volume 9.4 fL (9.4-12.3); Monocytes Absolute Auto 0.5 X10*3/uL (0.1-1.2); Monocytes Percent Auto 4.3 % (2-11); Neutrophils Absolute Auto 8.6 x10*3/uL (2.0-8.3); Neutrophils Percent Auto 77.5 % (45-73); Platelet Count 312 X10*3/uL (160-400); Red Blood Count 4.52 X10*6/uL (4.20-5.50); Red Cell Distribution Width 14.7 % (11.0-16.0); White Blood Count 11.1 X10*3/uL (4.8-10.8)
[2024-11-21 11:09] LABS: Troponin-I High Sensitivity < 2.7 ng/L (<3.5-17.0)
[2024-11-21 11:13] LABS: Alanine Aminotransferase 6 U/L (0-31); Albumin Level 4.4 g/dL (3.5-5.0); Alkaline Phosphatase 89 U/L (39-117); Anion Gap 11 (12-20); Aspartate Amino Transferase 14 U/L (5-31); Bilirubin Total 0.2 mg/dL (0.0-1.0); Blood Urea Nitrogen 9 mg/dL (9-16); Calcium 10.6 mg/dL (8.4-10.2); Carbon Dioxide 29 mmol/L (22-29); Chloride 105 mmol/L (96-108); Creatinine Clr Calc Pharmacy 81.3; Estimated Glomerular Filt Rate > 60; Glucose Random 123 mg/dL (60-115); Lipase 16 U/L (8-78); Magnesium 1.4 mg/dL (1.6-2.6); Sodium 141 mmol/L (135-145); Total Protein 6.8 g/dL (6.5-8.0)
[2024-11-21 11:14] LABS: Influenza A PCR NEGATIVE (Negative); Influenza B PCR NEGATIVE (Negative); Resp Syncy Virus RNA Qual PCR NEGATIVE (Negative); SARS COV2 PCR INHOUSE NEGATIVE (Negative)
[2024-11-21] MEDS: ondansetron HCL 4 MG/2 ML VIAL IVPUSH (11:49)
[2024-11-21] MEDS: Lactated Ringers 1,000 ML 999 ML IV (11:49)
[2024-11-21] MEDS: Magnesium Sulfate/H2O 2 GM/50 ML PIGGYBACK IV (11:51)
[2024-11-21 11:53] VITALS: BP 144/66; PULSE 90; RESP 20; O2SAT 94
[2024-11-21 12:00] VITALS: BP 144/66; PULSE 90; RESP 20; O2SAT 94
--- NOTE | 2024-11-21 12:15 | PC.NURSE ---
Pt. notified to use call burger when needing to get up, pt. also informed that she needs to provide ua sample, supplies at bedside.
[2024-11-21 12:48] LABS: Appearance Urine Clear; Color Urine Yellow; Glucose Urine UA Negative (Negative); Leukocyte Esterase Urine Negative (Negative); Nitrite Urine Negative (Negative); PH 7.5 (5.0-9.0); Urine Blood Negative (Negative); Urine Ketones Negative (Negative); Urine Protein Negative (Neg-Trace)
[2024-11-21 14:00] VITALS: BP 134/77; PULSE 85; RESP 20; O2SAT 94
[2024-11-21 14:15] VITALS: BP 134/77; PULSE 85; RESP 20; TEMP 36.9; O2SAT 94
== END 2024-11-21 14:17 | disposition home or self-care (01) ==
PROVIDERS: Registered Nurse Emergency; Emergency Provider Emergency Medicine; PCP Internal Medicine
DX: G89.29 Other chronic pain (principal); R10.9 Unspecified abdominal pain; E11.9 Type 2 diabetes mellitus without complications; I10 Essential (primary) hypertension; E78.5 Hyperlipidemia, unspecified; F17.210 Nicotine dependence, cigarettes, uncomplicated; Z03.818 Encounter for observation for suspected exposure to other biological agents ruled out; Z79.02 Long term (current) use of antithrombotics/antiplatelets
CPT/HCPCS: 0241U; 80053; 81003; 83690; 83735; 84484; 85025; 93005; 96361; 96374; 96375; 99284; 99285; J2405; J3475; J7120

== ENCOUNTER → 2024-11-21 09:59 | Outpatient (BNV) | payer OTHER, SELFPAY | PROVIDERS: Emergency Provider Emergency Medicine; PCP Internal Medicine; Visit Provider Internal Medicine Cardiovascular Disease | DX: R10.9 Unspecified abdominal pain (principal) | CPT/HCPCS: 93010 ==

== ENCOUNTER 2024-11-21 16:20 | Outpatient (REF) | payer OTHER, SELFPAY ==
--- NOTE | ~2024-11-21 | US_ITS ---
EXAMINATION: US KIDNEY BILATERAL HISTORY: C64.1 - Malignant neoplasm of right kidney, except renal pelvis TECHNIQUE: Real-time grayscale ultrasound imaging of the kidneys was performed and images were reviewed. COMPARISON: Comparison is made with the prior abdominal ultrasound dated 08/03/2024. Correlation is made with a CT of the abdomen with contrast dated 10/26/2024 FINDINGS: Right kidney: The right kidney measures 11.0 x 5.1 x 4.5 cm. Renal parenchymal echotexture and thickness are normal. Again seen is a hypoechoic mass at the lower pole measuring 2.3 x 2.1 x 2.9 cm (previously 2.4 x 2.4 x 2.4 cm). There is no hydronephrosis or renal calculi. Left Kidney: The left kidney measures 10.7 x 5.7 x 4.4 cm. Renal parenchymal echotexture and thickness are normal. There are no masses. There is no hydronephrosis or renal calculi. US/US renal BI IMPRESSION: Right lower pole renal mass measuring slightly larger than on the prior ultrasound. It is uncertain whether this represents inclusion of post ablation changes or actual growth. Electronically signed by: Wiley Dhaliwal MD 11/22/2024 07:12 AM EDT
== END 2024-11-21 16:21 | disposition home or self-care (01) ==
LOC: HO.US 16:20
PROVIDERS: PCP Internal Medicine; Visit Provider Urology
DX: C64.1 Malignant neoplasm of right kidney, except renal pelvis (principal)
CPT/HCPCS: 76775

== ENCOUNTER → 2024-11-21 16:23 | Outpatient (BNV) | payer OTHER, SELFPAY | PROVIDERS: PCP Internal Medicine; Visit Provider Radiology Diagnostic Radiology | DX: C64.1 Malignant neoplasm of right kidney, except renal pelvis (principal) | CPT/HCPCS: 76775 ==

== ENCOUNTER 2024-11-30 15:53 | Outpatient (AMB) | payer OTHER, SELFPAY ==
--- NOTE | 2024-11-30 15:58 | MHC.OFFVIS ---
Vital Signs 11/30/24 15:59 Height 4 ft 9 in Weight 113 lb 12.136 oz BMI 24.6 BP 181/82 H Blood Pressure Location Lt brachial Position Sitting Pulse 89 Intake Visit Reasons: abd pain Intake Note: Maria Elena returns to in office follow up of abdominal pain. CC: The patient c/o abdominal pain and feeling nauseous. Parimutuel Cashier Required: No Allergies amoxicillin [AMOXICILLIN] Allergy (Intermediate, Verified 11/30/24 16:09) RASH HPI HPI abd pain: Details: Assessment & Plan (1) Abdominal pain: Code(s): R10.9 - Unspecified abdominal pain Category: Medical Qualifiers: Abdominal location: epigastric Qualified Code(s): R10.13 - Epigastric pain (2) Weight loss: Code(s): R63.4 - Abnormal weight loss Category: Medical (3) COPD mixed type: Comment: follows w/[facility] Code(s): J44.9 - Chronic obstructive pulmonary disease, unspecified Category: Medical (4) Gastroparesis: Code(s): K31.84 - Gastroparesis Category: Medical (5) GERD (gastroesophageal reflux disease): Code(s): K21.9 - Gastro-esophageal reflux disease without esophagitis Category: Medical Qualifiers: Esophagitis presence: without esophagitis Qualified Code(s): K21.9 - Gastro-esophageal reflux disease without esophagitis (6) Renal cell carcinoma: Code(s): C64.9 - Malignant neoplasm of unspecified kidney, except renal pelvis Category: Medical Qualifiers: Laterality: right Qualified Code(s): C64.1 - Malignant neoplasm of right kidney, except renal pelvis (7) Diarrhea: Code(s): R19.7 - Diarrhea, unspecified Category: Medical Plan SHE IS HERE TODAY AFTER BEING seen in the ER 8 times since the beginning of the year for abdominal pain. At 1 of the visit they put her on sucralfate 4 times a day which likely greatly exacerbated her gastroparesis and constipation. She was then seen by Zayda mireles and a gastric emptying study was ordered despite the fact that she has well-established severe gastroparesis. She has also had 5 cat scans just by our ER if this year! She is having diarrhea most of the time, no CIC. Lnzess had been decreased to 72 micro g but then she saw Zayda who increased it back to 145 micro g. However, she also had diarrhea on the 72 micro g dose so we will completely stop this medication. I am also going to decrease her metoclopramide 10 mg to 1 tablet 4 times a day to see if this is over driving her bowels and potentially causing the pain. Again, the pain is just above the umbilicus in the middle of the abdomen. She does not have it every day she sometimes goes days without but then it will get started again. So far as they can tell it is not related to food eaten. It also does not appear to be related to constipation. I have advised them if they have to go back to the ER to tell them she has had 5 cat scans this year as this is starting become a very high dose of radiation and we do not want to cause her any future health problems. Also, they are not finding anything new. I am going to have her stop the sucralfate as this is likely just blocking her other medications with her complex medication regimen and it certainly has not helped her. This was prescribed by the ER 4 times a day. However seems like she is taking it twice a day. Return office visit in 2 weeks; I am cancelling gastric emptying study ordered by Zayda as she just had 1 in 2018 showing severe gastroparesis so this would be pointless. If we do not find the problem I might want to do an empty consult because they would also have to weigh in whether EGD would be appropriate given her respiratory status. Orders: Orders NM gastric emptying study 11/01/24 R68.81 - Early satiety Medications: Refilled metoclopramide HCl (Reglan) 20 mg (2 x 10 mg) PO TIDWMEAL 180 tabs 6RF K31.84 - Gastroparesis Discontinued magnesium oxide Discontinued Reason: Insurance Denied 400 mg PO DAILY 7 tabs 0RF sucralfate Discontinued Reason: Doctor's Order 1 g PO BID 60 tabs 2RF abdominal pain linaclotide (Linzess) Discontinued Reason: Doctor's Order 145 mcg PO DAILY 30 caps 2RF Patient Instructions: Maria Elena Kingston 1.??? Stop the Linzess completely. I want to stop your diarrhea and this may be causing your pain. 2.??? Decrease the metoclopramide to 1 tablet 4 times a day. 3.??? You have had 5 Cat Scans this year, please tell the ER you have had this many if you have to go back as this is NOT HEALTHY IN TERMS OF THE RADIATION. 4.??? Stop the sucralfate. 5.??? I want to see you in 2 weeks. REVIEW OF ER NOTES 11/29/2024 ischarge Clinical Impression: Chronic abdominal pain Patient Disposition: Home, Self-Care Instructions: Chronic Abdominal Pain (ED) Additional Instructions: your magnesium level was low again take the prescribed magnesium supplement nightly your GI doctor wants you to be taking lansoprazole and famotidine they want you to keep a written journal of when your pain happens, what you were doing when it started, how long it lasts call your GI doctor to make a follow up appointment If you develop new or worsening symptoms call 911 or come back to the ER for further evaluation. Prescriptions: New magnesium oxide 400 mg magnesium capsule 400 mg PO BEDTIME Qty: 30 0RF Laboratory Tests 11/21/24 10:31 WBC 11.1 H Hgb 12.3 Hct 38.7 Plt Count 312 Estimated GFR > 60 Calcium 10.6 H D Magnesium 1.4 L* Total Bilirubin 0.2 AST 14 ALT 6 Alkaline Phosphatase 89 Troponin I High Sens < 2.7 Lipase 16 TODAY'S VISIT (She has also had 5 cat scans just by our ER if this year!) She was seen again in the ER just last night. She is here today with her significant other any tries to help contribute to the history but Maria Elena is such a poor shorthand reporter with poor self insight it is difficult. Today her pain is quite bad and she describes it as being just above the umbilicus, and a moving, and she can not describe the quality. She has pretty severe associated nausea. On physical exam I elicit more pain in the left lower quadrant then I do even over the areas she endorses. However she has had multiple imaging studies that are not giving us any ideas about what is going on. We can not do an upper endoscopy because of her severe respiratory status. At this time we have stopped her Linzess and decreased her metoclopramide based on her having diarrhea but this did not seem to affect her pain at all. It did give her solid bowel movements and she seems to be moving them daily with soft stools. She was prescribed magnesium again in the ER because the magnesium remains low. I really not sure what to make of this I had thought it was from diarrhea in the past and maybe it still isn't she just has not repleted her stores. Obviously, I do not know if there is any renal contribution to this problem as that is really not my area of expertise. At this point I think her abdominal pain, which are partner seems that thing cycles every 3 or 4 days, maybe related to medications. I think it is certainly worth a try to eliminate some and see what her responses. For now we are going to eliminate her oral iron pills since she is not anemic and this can cause upper abdominal distress and will also eliminate her statin to see if that is a contributing factor. Another possible culprit could be her Januvia but I do not want to stop that before I have a plan in place deal with her diabetes. I also do not want to stop too many things at once or we will not know what seems to be the causative factor, if any. Return office visit in 2 weeks I have also asked her to keep a log/diarrhea of her symptoms what she has eaten and what she is doing to see if she can help give me clues in terms of the history of the illness. 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 Essential hypertension Smoker unmotivated to quit Postlaminectomy syndrome of cervical region Seasonal allergic rhinitis Degenerative disc disease, cervical Postmenopause Dyslipidemia Gastroparesis GERD (gastroesophageal reflux disease) Surgical History H/O cervical discectomy History of esophagogastroduodenoscopy (EGD) Hx of colonoscopy Family History Mother Diabetes Sister Diabetes Mental health disorder Brother Diabetes Father HTN (hypertension) Social History Household Members: Significant Other Housing: Apartment Housing Other:: mobile home Are you a primary health care marketing manager to a significant other at home: No Do you presently have visiting nurse or other home services: Yes ([employer]) Alcohol intake: never Comment: Commode/ Hi Flow O2 Patient Tobacco Use Status: Current everyday Tobacco user Tobacco use type: Cigarette Cigarette Packs Per Day: 0.5 Cigarettes Per Day: 10 Years Smoked: 51 e-Cigarette/Vaping Use: Never Used Second Hand Smoke Exposure: Yes Advance Directives Date on File: 08/02/23 service: No Current occupational status: unemployed and disabled Gender identity: Female Cognitive needs: No Hearing needs: No Vision needs: Yes Review of Systems Const Denies fatigue, Denies fever(s), Denies night sweats, Reports poor appetite, Reports weakness and Reports weight loss Eyes Details: Glasses Reports requires corrective lenses ENT Reports Normal hearing present, Denies dental pain, Denies dysphagia, Denies hearing loss, Denies mouth pain, Denies odynophagia, Denies throat swelling, Denies tongue swelling and Reports other (Dentition adequate) Card Reports no additional complaints and Reports dyspnea on exertion Resp Reports dyspnea on exertion and Reports wheezing GI Details: Reports abdominal pain, Denies melena, Denies bloating, Denies hematochezia, Denies constipation, Denies GI cramping, Denies dysphagia, Denies excessive flatus, Denies early satiety, Reports heartburn, Denies diarrhea, Reports nausea, Denies odynophagia, Denies vomiting and Denies hematemesis Skin/Breast Denies pruritus, Denies lesions, Denies rash and Denies jaundice Neuro Reports Normal hearing present, Denies Abnormal speech present and Reports weakness Endo Denies fatigue Aller/Immun Denies throat swelling, Denies tongue swelling and Reports wheezing Physical Exam Const General: cooperative, well developed, acute distress moderate and poor hygiene Nutritional Appearance: obese centrally obese Orientation/consciousness: oriented to person, oriented to place and oriented to time Limitations: behavioral limitations, No language barrier and other limitations (Low cognition) HEENT Head: Yes normocephalic and Yes atraumatic Eyes General: appearance normal, both eyes and all related structures Pupils: Equal, round and reactive pupils present Neck Neck: Yes normal visual inspection and Yes no lymphadenopathy Thyroid: Thyroid normal Chest Chest palpation & inspection: no localized rib tenderness Resp Effort & Inspection: normal respiratory effort and able to speak in complete sentences Auscultation: clear to auscultation bilaterally Cardio Rate: regular rate Rhythm: regular rhythm Heart sounds: Normal, physiologic split S2 sound present Peripheral pulses: radial pulses present and posterior tibial pulses present GI Inspection: Yes distended, Yes Abdominal panniculus present and Yes obesity Palpation (GI): Soft to palpation, Tenderness to palpation present (GI) (Just above the umbilicus midline) in the LLQ and periumbilically, no guarding, not rigid and No hepatosplenomegaly present Percussion: Yes normal to percussion Auscultation: normal bowel sounds Rectal Exam - Female: deferred General: Yes no CVA tenderness Back/Spine/Pelvis Back: no CVA tenderness Thoracic/Lumbar Spine: No paraspinal muscle tenderness, No thoracic spinal tenderness and No lumbar spinal tenderness Sacroiliac joints: not bilaterally Skin General skin exam: no rashes or lesions noted, turgor normal, skin not dry, no jaundice, No spider nevi and no striae Rashes: no rashes Nails: normal Neuro General: oriented to person, oriented to place and oriented to time Cranial nerves: Yes Equal, round and reactive pupils present and Yes Normal hearing present Speech: No Abnormal speech present Extrem General: Yes normal to inspection, No clubbing, No cyanosis and No edema Psych Appearance: disheveled Mental Status: other Speech and movement: Slowed speech present (Psych) Affect: Blunted affect present Attitude: cooperative Thought process: not confabulating and Impoverished thought process present Thought content: Normal thought content present Insight: Poor insight present (Psych) Judgement: Poor judgement present (Psych) Assessment & Plan Assessment & Plan (1) Abdominal pain: Code(s): R10.9 - Unspecified abdominal pain Category: Medical Qualifiers: Abdominal location: epigastric Qualified Code(s): R10.13 - Epigastric pain (2) Diarrhea: Code(s): R19.7 - Diarrhea, unspecified Category: Medical (3) Weight loss: Code(s): R63.4 - Abnormal weight loss Category: Medical (4) Gastroparesis: Code(s): K31.84 - Gastroparesis Category: Medical (5) GERD (gastroesophageal reflux disease): Code(s): K21.9 - Gastro-esophageal reflux disease without esophagitis Category: Medical Qualifiers: Esophagitis presence: without esophagitis Qualified Code(s): K21.9 - Gastro-esophageal reflux disease without esophagitis Plan (She has also had 5 cat scans just by our ER if this year!) She was seen again in the ER just last night. She is here today with her significant other any tries to help contribute to the history but Maria Elena is such a poor shorthand reporter with poor self insight it is difficult. Today her pain is quite bad and she describes it as being just above the umbilicus, and a moving, and she can not describe the quality. She has pretty severe associated nausea. On physical exam I elicit more pain in the left lower quadrant then I do even over the areas she endorses. However she has had multiple imaging studies that are not giving us any ideas about what is going on. We can not do an upper endoscopy because of her severe respiratory status. At this time we have stopped her Linzess and decreased her metoclopramide based on her having diarrhea but this did not seem to affect her pain at all. It did give her solid bowel movements and she seems to be moving them daily with soft stools. She was prescribed magnesium again in the ER because the magnesium remains low. I really not sure what to make of this I had thought it was from diarrhea in the past and maybe it still isn't she just has not repleted her stores. Obviously, I do not know if there is any renal contribution to this problem as that is really not my area of expertise. At this point I think her abdominal pain, which are partner seems that thing cycles every 3 or 4 days, maybe related to medications. I think it is certainly worth a try to eliminate some and see what her responses. For now we are going to eliminate her oral iron pills since she is not anemic and this can cause upper abdominal distress and will also eliminate her statin to see if that is a contributing factor. Another possible culprit could be her Januvia but I do not want to stop that before I have a plan in place deal with her diabetes. I also do not want to stop too many things at once or we will not know what seems to be the causative factor, if any. Return office visit in 2 weeks I have also asked her to keep a log/diarrhea of her symptoms what she has eaten and what she is doing to see if she can help give me clues in terms of the history of the illness. Patient Instructions: Maria Elena Kingston? 11/30/2024 1.?? Please stop the iron pill and the rosuvastatin until you see me again. 2.?? Start taking famotine at bedtime if you are not and continue all of the medications as I told you at the last visit. 3.?? Please keep a log of when you have pain, what you have eaten or done before the pain started. Maria Elena Kingston 1.??? Stop the Linzess completely. I want to stop your diarrhea and this may be causing your pain. 2.??? Decrease the metoclopramide to 1 tablet 4 times a day. 3.??? You have had 5 Cat Scans this year, please tell the ER you have had this many if you have to go back as this is NOT HEALTHY IN TERMS OF THE RADIATION. 4.??? Stop the sucralfate. 5.??? I want to see you in 2 weeks. Coding Level of Care Code Est Pt Level 4 (35754) Diagnoses Abdominal pain R10.13 Abdominal location: epigastric Diarrhea R19.7 Weight loss R63.4 Gastroparesis K31.84 Gastroesophageal reflux disease without esophagitis K21.9 Esophagitis presence: without esophagitis Time Spent (min) 35
[2024-11-30 15:59] VITALS: BP 181/82; PULSE 89; BMI 24.6
== END 2024-11-30 16:52 | disposition home or self-care (01) ==
LOC: HO.HGI 15:54
PROVIDERS: PCP Internal Medicine; Visit Provider Nurse Practitioner
DX: R10.13 Epigastric pain (principal); R19.7 Diarrhea, unspecified; R63.4 Abnormal weight loss; K31.84 Gastroparesis; K21.9 Gastro-esophageal reflux disease without esophagitis
CPT/HCPCS: 99214

== ENCOUNTER → 2024-11-30 15:53 | Outpatient (BNVA) | payer OTHER, SELFPAY | PROVIDERS: PCP Internal Medicine; Visit Provider Nurse Practitioner | DX: K31.84 Gastroparesis (principal); K21.9 Gastro-esophageal reflux disease without esophagitis; R10.13 Epigastric pain; R19.7 Diarrhea, unspecified; R63.4 Abnormal weight loss; J44.9 Chronic obstructive pulmonary disease, unspecified; C64.1 Malignant neoplasm of right kidney, except renal pelvis | CPT/HCPCS: 99212 ==

== ENCOUNTER 2024-12-13 15:48 | Outpatient (AMB) | payer OTHER, SELFPAY ==
--- NOTE | 2024-12-13 15:50 | MHC.OFFVIS ---
Vital Signs 12/13/24 15:57 Height 4 ft 9 in Weight 118 lb BMI 25.5 BP 142/52 H Blood Pressure Location Lt brachial Position Sitting Pulse 103 H Pulse Oximetry (%) 84 L Oxygen Delivery Method Room Air Comment patient did not bring her Oxygen Intake Visit Reasons: Follow up abd pain Intake Note: Patient follow up for abdominal pain. Patient cc: denies any GI issues for today visit. 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 Accompanied by: Self / Same As Patient Allergies amoxicillin [AMOXICILLIN] Allergy (Intermediate, Verified 12/13/24 15:56) RASH HPI HPI Follow up abd pain: Details: Assessment & Plan (1) Abdominal pain: Code(s): R10.9 - Unspecified abdominal pain Category: Medical Qualifiers: Abdominal location: epigastric Qualified Code(s): R10.13 - Epigastric pain (2) Diarrhea: Code(s): R19.7 - Diarrhea, unspecified Category: Medical (3) Weight loss: Code(s): R63.4 - Abnormal weight loss Category: Medical (4) Gastroparesis: Code(s): K31.84 - Gastroparesis Category: Medical (5) GERD (gastroesophageal reflux disease): Code(s): K21.9 - Gastro-esophageal reflux disease without esophagitis Category: Medical Qualifiers: Esophagitis presence: without esophagitis Qualified Code(s): K21.9 - Gastro-esophageal reflux disease without esophagitis Plan (She has also had 5 cat scans just by our ER if this year!) She was seen again in the ER just last night. 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 Today her pain is quite bad and she describes it as being just above the umbilicus, and a moving, and she can not describe the quality. She has pretty severe associated nausea. On physical exam I elicit more pain in the left lower quadrant then I do even over the areas she endorses. However she has had multiple imaging studies that are not giving us any ideas about what is going on. We can not do an upper endoscopy because of her severe respiratory status. At this time we have stopped her Linzess and decreased her metoclopramide based on her having diarrhea but this did not seem to affect her pain at all. It did give her solid bowel movements and she seems to be moving them daily with soft stools. She was prescribed magnesium again in the ER because the magnesium remains low. I really not sure what to make of this I had thought it was from diarrhea in the past and maybe it still isn't she just has not repleted her stores. Obviously, I do not know if there is any renal contribution to this problem as that is really not my area of expertise. At this point I think her abdominal pain, which are partner seems that thing cycles every 3 or 4 days, maybe related to medications. I think it is certainly worth a try to eliminate some and see what her responses. For now we are going to eliminate her oral iron pills since she is not anemic and this can cause upper abdominal distress and will also eliminate her statin to see if that is a contributing factor. Another possible culprit could be her Januvia but I do not want to stop that before I have a plan in place deal with her diabetes. I also do not want to stop too many things at once or we will not know what seems to be the causative factor, if any. Return office visit in 2 weeks I have also asked her to keep a log/diarrhea of her symptoms what she has eaten and what she is doing to see if she can help give me clues in terms of the history of the illness. Patient Instructions: Maria Elena Kingston? 11/30/2024 1.?? Please stop the iron pill and the rosuvastatin until you see me again. 2.?? Start taking famotine at bedtime if you are not and continue all of the medications as I told you at the last visit. 3.?? Please keep a log of when you have pain, what you have eaten or done before the pain started. Maria Elena Kingston 1.??? Stop the Linzess completely. I want to stop your diarrhea and this may be causing your pain. 2.??? Decrease the metoclopramide to 1 tablet 4 times a day. 3.??? You have had 5 Cat Scans this year, please tell the ER you have had this many if you have to go back as this is NOT HEALTHY IN TERMS OF THE RADIATION. 4.??? Stop the sucralfate. 5.??? I want to see you in 2 weeks. TODAY'S VISIT Her pain is improved after withholding the rosuvastatin and the iron pill. So far she is pleased with this and so is her significant other. However I want to give it more time to make sure these with the offending agents before we try reintroducing the cholesterol medication. It is entirely possible the iron pill was the root of the problem and since she is no longer severely anemic there are certainly no short term harm and holding this. Her current GI regimen consists of pantoprazole 40 mg twice a day, metoclopramide 5 mg 4 times a day and simethicone. 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 Essential hypertension Smoker unmotivated to quit Postlaminectomy syndrome of cervical region Seasonal allergic rhinitis Degenerative disc disease, cervical Postmenopause Dyslipidemia Gastroparesis GERD (gastroesophageal reflux disease) Surgical History H/O cervical discectomy History of esophagogastroduodenoscopy (EGD) Hx of colonoscopy Family History Mother Diabetes Sister Diabetes Mental health disorder Brother Diabetes Father HTN (hypertension) Social History Household Members: Significant Other Housing: Apartment Housing Other:: mobile home Are you a primary rn home care to a significant other at home: No 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) Alcohol intake: never Comment: Commode/ Hi Flow O2 Patient Tobacco Use Status: Current everyday Tobacco user Tobacco use type: Cigarette Cigarette Packs Per Day: 0.5 Cigarettes Per Day: 10 Years Smoked: 51 e-Cigarette/Vaping Use: Never Used Second Hand Smoke Exposure: Yes Advance Directives Date on File: 12/18/23 service: No Current occupational status: unemployed and disabled Gender identity: Female Cognitive needs: No Hearing needs: No Vision needs: Yes Review of Systems Const Denies fatigue, Denies fever(s), Denies night sweats, Denies poor appetite and Denies weight loss Eyes Details: glasses Reports requires corrective lenses ENT Reports Normal hearing present, Denies dental pain, Denies dysphagia, Denies hearing loss, Denies mouth pain, Denies odynophagia, Denies throat swelling, Denies tongue swelling and Reports other (Dentition adequate) Card Reports no additional complaints and Reports dyspnea on exertion Resp Reports dyspnea on exertion GI Details: Denies abdominal pain, Denies melena, Denies bloating, Denies hematochezia, Denies constipation, Denies GI cramping, Denies dysphagia, Denies excessive flatus, Reports early satiety, Reports heartburn, Denies diarrhea, Denies nausea, Denies odynophagia, Denies vomiting and Denies hematemesis Skin/Breast Denies pruritus, Denies lesions, Denies rash and Denies jaundice Neuro Reports Normal hearing present and Denies Abnormal speech present Endo Denies fatigue Aller/Immun Denies throat swelling and Denies tongue swelling Physical Exam Vital Signs: Last Vital Signs Pulse 103 H 12/13/24 15:57 BP 142/52 H 12/13/24 15:57 Pulse Ox 84 L 12/13/24 15:57 Oxygen Delivery Method Room Air 12/13/24 15:57 BMI result Body Mass Index 25.5 Const General: cooperative, no acute distress, well developed and well groomed Nutritional Appearance: well nourished and obese centrally obese Orientation/consciousness: oriented to person, oriented to place and oriented to time Limitations: No language barrier and other limitations (Limited cognition and Education) HEENT Head: Yes normocephalic and Yes atraumatic Eyes General: appearance normal, both eyes and all related structures Pupils: Equal, round and reactive pupils present Neck Neck: Yes normal visual inspection and Yes no lymphadenopathy Thyroid: Thyroid normal Resp Effort & Inspection: normal respiratory effort and able to speak in complete sentences Auscultation: clear to auscultation bilaterally Cardio Rate: regular rate Rhythm: regular rhythm Heart sounds: Normal, physiologic split S2 sound present Peripheral pulses: radial pulses present and posterior tibial pulses present GI Inspection: No distended, No Abdominal panniculus present and Yes obesity Palpation (GI): Soft to palpation, nontender, no guarding, not rigid and No hepatosplenomegaly present Percussion: Yes normal to percussion Auscultation: normal bowel sounds Rectal Exam - Female: deferred Skin General skin exam: no rashes or lesions noted, turgor normal, skin not dry, no jaundice, No spider nevi and no striae Rashes: no rashes Nails: normal Neuro General: oriented to person, oriented to place and oriented to time Cranial nerves: Yes Equal, round and reactive pupils present and Yes Normal hearing present Speech: No Abnormal speech present Extrem General: Yes normal to inspection, No clubbing, No cyanosis and No edema Psych Appearance: grossly normal and well kempt Mental Status: other Speech and movement: Normal speech and movement present Affect: normal affect Attitude: cooperative Thought process: not confabulating and Impoverished thought process present Thought content: Normal thought content present Insight: Poor insight present (Psych) Judgement: Poor judgement present (Psych) Assessment & Plan Assessment & Plan (1) Abdominal pain: Code(s): R10.9 - Unspecified abdominal pain Category: Medical Qualifiers: Abdominal location: epigastric Qualified Code(s): R10.13 - Epigastric pain (2) Diarrhea: Code(s): R19.7 - Diarrhea, unspecified Category: Medical (3) Gastroparesis: Code(s): K31.84 - Gastroparesis Category: Medical (4) GERD (gastroesophageal reflux disease): Code(s): K21.9 - Gastro-esophageal reflux disease without esophagitis Category: Medical Qualifiers: Esophagitis presence: without esophagitis Qualified Code(s): K21.9 - Gastro-esophageal reflux disease without esophagitis Plan Her pain is improved after withholding the rosuvastatin and the iron pill. So far she is pleased with this and so is her significant other. However I want to give it more time to make sure these with the offending agents before we try reintroducing the cholesterol medication. It is entirely possible the iron pill was the root of the problem and since she is no longer severely anemic there are certainly no short term harm and holding this. Her current GI regimen consists of pantoprazole 40 mg twice a day, metoclopramide 5 mg 4 times a day and simethicone. Return office visit in 6 weeks Medications: Refilled pantoprazole take in am , 1 hour before food or medicine intake 40 mg PO BID 180 tabs 1RF K21.9 - Gastro-esophageal reflux disease without esophagitis, K29.50 - Unspecified chronic gastritis without bleeding Discontinued esomeprazole magnesium (Nexium) Discontinued Reason: Doctor's Order 40 mg PO DAILY 30 caps 2RF K21.9 - Gastro-esophageal reflux disease without esophagitis On Hold rosuvastatin Hold Comment: Doctor's Order 5 mg PO DAILY 90 tabs 1RF ferrous sulfate Hold Comment: Doctor's Order 324 mg PO DAILY 90 tabs 0RF Coding Level of Care Code Est Pt Level 3 (09252) Diagnoses Abdominal pain R10.13 Abdominal location: epigastric Diarrhea R19.7 Gastroparesis K31.84 Gastroesophageal reflux disease without esophagitis K21.9 Esophagitis presence: without esophagitis
[2024-12-13 15:57] VITALS: BP 142/52; PULSE 103; O2SAT 84; BMI 25.5
== END 2024-12-13 16:15 | disposition home or self-care (01) ==
LOC: HO.HGI 15:49
PROVIDERS: PCP Internal Medicine; Visit Provider Nurse Practitioner
DX: R10.13 Epigastric pain (principal); R19.7 Diarrhea, unspecified; K31.84 Gastroparesis; K21.9 Gastro-esophageal reflux disease without esophagitis
CPT/HCPCS: 99213

== ENCOUNTER → 2024-12-13 15:48 | Outpatient (BNVA) | payer OTHER, SELFPAY | PROVIDERS: PCP Internal Medicine; Visit Provider Nurse Practitioner | DX: R10.13 Epigastric pain (principal); R19.7 Diarrhea, unspecified; R63.4 Abnormal weight loss; K31.84 Gastroparesis; K21.9 Gastro-esophageal reflux disease without esophagitis | CPT/HCPCS: 99212 ==

== ENCOUNTER 2024-12-25 13:26 | Outpatient (AMB) | payer OTHER, SELFPAY ==
--- NOTE | 2024-12-25 13:37 | A.OFFPC_ITS ---
Vital Signs 12/25/24 13:39 Height 4 ft 9 in Weight 120 lb BMI 26.0 BP 140/62 H Blood Pressure Location Lt brachial Position Sitting Respiration 17 Pulse 98 Pulse Source Pulse Oximeter Temp 98.7 F Temp Source Oral Pulse Oximetry (%) 96 Oxygen Delivery Method Nasal Cannula Intake Visit Reasons: 3m follow up Allergies amoxicillin [AMOXICILLIN] Allergy (Intermediate, Verified 12/25/24 13:42) RASH Medication List - Last Reconciled 12/25/24 by Magalie Nicolas MD amlodipine 5 mg PO DAILY aspirin (Adult Low Dose Aspirin) 81 mg PO BEDTIME baclofen 10 mg PO TID 30 days blood-glucose meter (FreeStyle Lite Meter kit) As directed twice a day before meals cholecalciferol (vitamin D3) 50 mcg PO DAILY esomeprazole magnesium 40 mg PO DAILY flash glucose scanning reader (DOZStyle Cristian 2 [place]) test blood sugar 4 times per day flash glucose sensor (FreeStyle Cristian 2 Sensor kit) Test blood sugar 4 times per day qphryvywvur-vpnbtsijf-fienrrwn 100-62.5-25 mcg (Trelegy Ellipta) inhalation DAILY FreeStyle Lite Strips (blood sugar diagnostic) check fasting blood sugar twice a day before meals NS gabapentin 800 mg PO TID 30 days ipratropium-albuterol 0.5 mg-3 mg(2.5 mg base)/3 mL 3 mL inhalation Q6H 1 month lancets (FreeStyle Lancets) As directed twice a day AC losartan 50 mg PO DAILY magnesium oxide 400 mg PO BEDTIME metformin 1,000 mg PO BID metoclopramide HCl (Reglan) 20 mg (2 x 10 mg) PO TIDWMEAL psyllium husk (Fiber Laxative (psyllium husk)) 1.04 grams (2 x 0.52 gram) PO BID rosuvastatin 5 mg PO DAILY simethicone (Anti-Gas Ultra Strength) 180 mg PO QID sitagliptin phosphate (Januvia) 100 mg PO DAILY Tobacco use date assessed: 12/25/24 Dental Screening Dental Screen Date: 12/25/24 Did you have a dental visit in the last 12 months?: Yes Did you have a dental problem in the last 6 months where you did not have access to dental care?: No Was dental information given to patient?: Patient has dentist [facility] Medical History (Updated 12/25/24 @ 14:12 by Magalie Nicolas MD) Mixed dyslipidemia Heavy cigarette smoker History of pneumonia COPD mixed type Gastritis Diabetic gastroparesis Diastolic CHF with preserved left ventricular function, NYHA class 2 Chronic hypercapnic respiratory failure Type 2 diabetes mellitus with other diabetic kidney complication Essential hypertension Smoker unmotivated to quit Postlaminectomy syndrome of cervical region Seasonal allergic rhinitis GERD (gastroesophageal reflux disease) Surgical History H/O cervical discectomy History of esophagogastroduodenoscopy (EGD) Hx of colonoscopy Family History Mother Diabetes Sister Diabetes Mental health disorder Brother Diabetes Father HTN (hypertension) Social History Household Members: Significant Other Housing: Apartment Housing Other:: mobile home Are you a primary long term care pharmacist to a significant other at home: No 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 1. Little interest or pleasure in doing things: more than half the days 2. Feeling down, depressed, or hopeless: not at all 6. Feeling bad about yourself - or that you are a failure or have let yourself or your family down: not at all 7. Trouble concentrating on things, such as reading the newspaper or watching television: not at all 8. Moving or speaking so slowly that other people could have noticed. Or the opposite - being so fidgety or restless that you have been moving around a lot more than usual: not at all 9. Thoughts that you would be better off or of hurting yourself in some way: not at all Source: Developed by Drs. Wiley Caballero, Sharmila Paez, Iraj Hernandez and colleagues, with an educational radha from [employer]. Thrive Questionnaire Date Thrive assessed: 09/07/24 I am a: Patient What is your living situation today?: I have a steady place to live Within the past 12 months, did the food you bought not last and you didn't have the money to get more?: Never true Within the past 12 months, did you worry whether your food would run out before you got money to buy more?: Never true Do you have trouble paying for medicines?: No Do you have trouble getting transportation to medical appointments?: No Do you have trouble paying your heating and electricity bill?: No Do you have trouble taking care of your child, family member or friend?: No Do you have trouble with day-to-day activities such as bathing, preparing meals, shopping, managing finances, etc.?: Yes Are you currently unemployed and looking for a job?: No Are you interested in more education?: No Please select the resources that you would like help with: None Currently or been in a relationship where the following occur: I choose not to answer THRIVE Score: 0 FREDI-7 AMB Questionnaire FREDI-7 Date FREDI - 7 assessed: 09/02/22 Source: Developed by Drs. Wiley Caballero, Sharmila Paez, Iraj Hernandez and colleagues, with an educational radha from [employer]. Physical exam (Primary Care) Vital Signs: Last Vital Signs Temp 98.7 F 12/25/24 13:39 Pulse 98 12/25/24 13:39 Resp 17 12/25/24 13:39 BP 140/62 H 12/25/24 13:39 Pulse Ox 96 12/25/24 13:39 Oxygen Delivery Method Nasal Cannula 12/25/24 13:39 BMI result Body Mass Index 26.0 Tobacco/Smoking Status: Tobacco use Status Tobacco use date assessed 12/25/24 12/25/24 13:47 Patient Tobacco Use Status Current everyday Tobacco 12/25/24 13:38 Tobacco use type Cigarette 12/25/24 13:38 e-Cigarette/Vaping Use Never Used 12/25/24 13:38 Thrive Assessment: Date of Thrive Assessment Date Thrive assessed 09/07/24 12/25/24 13:38 Currently or been in a relationship where the following occur: I choose not to answer Results AMB Hemoglobin A1c AMB Hemoglobin A1c 5.9 % Last Edit by Adalgisa Cardenas CMA on 12/25/24 13:58 Results Reviewed Results Reviewed: Laboratory Last Values Hgb A1c (Clinic) 5.9 % (4.0-6.0) 12/25/24 13:51 Coding Level of Care Code Est Pt Level 4 (63512) Complex EM visit Add On G2211 Diagnoses Type 2 diabetes mellitus without complication, with no history of insulin use E11.9 Smoker unmotivated to quit F17.200 Primary hypertension I10 Hypertension type: primary hypertension Dyslipidemia E78.5 Assessment & Plan Assessment & Plan (1) Type 2 diabetes mellitus without complication, with no history of insulin use: Code(s): E11.9 - Type 2 diabetes mellitus without complications Category: Medical (2) Smoker unmotivated to quit: Code(s): F17.200 - Nicotine dependence, unspecified, uncomplicated Category: Social Hx (3) Hypertension: Code(s): I10 - Essential (primary) hypertension Category: Medical Qualifiers: Hypertension type: primary hypertension Qualified Code(s): I10 - Essential (primary) hypertension (4) Dyslipidemia: Code(s): E78.5 - Hyperlipidemia, unspecified Category: Medical (5) Dyslipidemia: Code(s): E78.5 - Hyperlipidemia, unspecified Orders: Orders AMB Hemoglobin A1c Today E11.9 - Type 2 diabetes mellitus without complications
[2024-12-25 13:39] VITALS: BP 140/62; PULSE 98; RESP 17; TEMP 37.1; O2SAT 96; BMI 26.0
== END 2024-12-25 14:06 | disposition home or self-care (01) ==
LOC: HO.HMCC 13:27
PROVIDERS: Visit Provider Internal Medicine
DX: E11.9 Type 2 diabetes mellitus without complications (principal)

== ENCOUNTER → 2024-12-25 13:26 | Outpatient (BNVA) | payer OTHER, SELFPAY | PROVIDERS: Visit Provider Internal Medicine | DX: J44.9 Chronic obstructive pulmonary disease, unspecified (principal); E11.9 Type 2 diabetes mellitus without complications; I10 Essential (primary) hypertension; E78.5 Hyperlipidemia, unspecified; F17.210 Nicotine dependence, cigarettes, uncomplicated; Z99.81 Dependence on supplemental oxygen | CPT/HCPCS: 83036; 99212 ==

== ENCOUNTER 2024-12-26 08:59 | Outpatient (REF) | payer OTHER, SELFPAY ==
[2024-12-26 10:53] LABS: Cholesterol 293 mg/dL (<200); HDL Cholesterol 55 mg/dL (>40); LDL Cholesterol Calculated 194 mg/dL (<100); Triglycerides 224 mg/dL (<150)
== END 2024-12-26 09:00 | disposition home or self-care (01) ==
LOC: HO.HMGCLDS 08:59
PROVIDERS: PCP Internal Medicine; Visit Provider Internal Medicine
DX: E11.9 Type 2 diabetes mellitus without complications (principal); I10 Essential (primary) hypertension; E78.5 Hyperlipidemia, unspecified
CPT/HCPCS: 36415; 80061

== ENCOUNTER 2025-01-25 15:24 | Outpatient (AMB) | payer OTHER, SELFPAY ==
--- NOTE | 2025-01-25 15:36 | A.OFFVIS_ITS ---
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 Discussed smoking cessation. Status post renal mass ablation on 09/11/2024. Discussed renal ultrasound results. Will check a CAT scan in 3 months which will be more accurate. Urinalysis negative for blood. Results: US 11/21/24--Right lower pole renal mass measuring slightly larger than on the prior ultrasound. It is uncertain whether this represents inclusion of post ablation changes or actual growth. 09/21/24--Telehealth fu, s/p right renal mass cryoablation, the patient was in the ED on 09/16/24 for post procedure pain, she states she is doing better. Plan fu in 3-4 months. 08/21/24--Maria Elena was last seen 05/22/24--she had a CT Abd renal mass protocol on 04/18/24 She was referred for Interventional Radiology--cryoablation Single approximate 2.5 cm lesion of the inferior pole the right kidney. She has not had procedure done as yet. She was seen in consultation by [facility] [place]. She states the procedure has not been scheduled as yet. 05/22/24--63-year-old female with pertinent history of chronic hypoxia due to COPD on 2 L supplemental oxygen, hypertension, hyperlipidemia, non-insulin- dependent diabetes mellitus, gastroesophageal reflux disease, tobacco use disorder who was admitted due to dyspnea and abdominal pain. 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 Essential hypertension Smoker unmotivated to quit Postlaminectomy syndrome of cervical region Seasonal allergic rhinitis GERD (gastroesophageal reflux disease) Surgical History H/O cervical discectomy History of esophagogastroduodenoscopy (EGD) Hx of colonoscopy Family History Mother Diabetes Sister Diabetes Mental health disorder Brother Diabetes Father HTN (hypertension) Social History Household Members: Significant Other Housing: Apartment Housing Other:: mobile home Are you a primary care asst to a significant other at home: No Do you presently have visiting nurse or other home services: Yes ([employer]) Alcohol intake: never Comment: Commode/ Hi Flow O2 Patient Tobacco Use Status: Current everyday Tobacco user Tobacco use type: Cigarette Cigarette Packs Per Day: 0.5 Cigarettes Per Day: 10 Years Smoked: 51 e-Cigarette/Vaping Use: Never Used Second Hand Smoke Exposure: Yes Advance Directives Date on File: 08/02/23 service: No Current occupational status: unemployed and disabled Gender identity: Female Cognitive needs: No Hearing needs: No Vision needs: Yes Review of Systems Const All systems reviewed & are unremarkable except as noted in HPI and below Reports no additional complaints Eyes Reports no additional complaints ENT Reports no additional complaints Card Reports no additional complaints Resp Reports no additional complaints GI Reports no additional complaints Reports as per HPI Musc Reports no additional complaints Skin/Breast Reports system reviewed and no additional complaints, except as documented Neuro Reports no additional complaints Psych Reports no additional complaints Endo Reports no additional complaints Patel/Lymph Reports no additional complaints Aller/Immun Reports no additional complaints Results Reviewed Results Reviewed: Date of Service: 11/21/24 EXAMINATION: US KIDNEY BILATERAL HISTORY: C64.1 - Malignant neoplasm of right kidney, except renal pelvis TECHNIQUE: Real-time grayscale ultrasound imaging of the kidneys was performed and images were reviewed. COMPARISON: Comparison is made with the prior abdominal ultrasound dated 08/03/2024. Correlation is made with a CT of the abdomen with contrast dated 10/26/2024 FINDINGS: Right kidney: The right kidney measures 11.0 x 5.1 x 4.5 cm. Renal parenchymal echotexture and thickness are normal. Again seen is a hypoechoic mass at the lower pole measuring 2.3 x 2.1 x 2.9 cm (previously 2.4 x 2.4 x 2.4 cm). There is no hydronephrosis or renal calculi. Left Kidney: The left kidney measures 10.7 x 5.7 x 4.4 cm. Renal parenchymal echotexture and thickness are normal. There are no masses. There is no hydronephrosis or renal calculi. IMPRESSION: Right lower pole renal mass measuring slightly larger than on the prior ultrasound. It is uncertain whether this represents inclusion of post ablation changes or actual growth. Date of Service: 08/08/24 CT ABDOMEN AND PELVIS WITHOUT CONTRAST CLINICAL INFORMATION: Possible right renal mass. Upper abdominal pain. COMPARISON: Renal ultrasound 08/03/2024. Unenhanced and IV contrast and CT of abdomen and pelvis 04/18/2024. CT abdomen and pelvis 04/16/2024. MRI abdomen 04/05/2019. TECHNIQUE: Multidetector volumetric imaging was performed from the superior aspect of the liver through the pubic symphysis. Sagittal and coronal reformatted images were obtained on the technologist's workstation. This CT examination was performed using dose optimization techniques as appropriate, variously including the following: *Automated exposure control *Adjustment of mA and/or kV according to patient size (this includes techniques or standardized protocols for targeted exams where dose is matched to indication/reason for exam; i.e. extremities or head) *Use of iterative reconstruction technique DLP: 367 mGy-cm FINDINGS: LUNG BASES: Chronic appearing scattered minimal bibasilar subpleural reticular opacities which may represent parenchymal scarring are noted. Partial visualization is made of at least mild-moderate scattered coronary artery calcific atherosclerosis. The heart is not fully included within the image [id number]. LIVER, GALLBLADDER, AND BILIARY TREE: The liver is normal in size, shape, and attenuation. No focal hepatic lesion or biliary ductal dilatation is present. The gallbladder is unremarkable with no evidence of radiopaque gallstones, gallbladder wall thickening, or obvious pericholecystic inflammatory changes. PANCREAS: Unremarkable. SPLEEN: Unremarkable. ADRENAL GLANDS: Unremarkable. KIDNEYS AND URETERS: A 2.5 cm x 2.0 cm rounded partially exophytic lesion is associated with the lateral aspect of the inferior pole the right kidney demonstrating intermediate attenuation (32 Hounsfield units). No urolithiasis. No hydronephrosis or perinephric inflammatory changes. Normal appearance of the left kidney. BLADDER: Moderate physiologic distention. GASTROINTESTINAL TRACT: Normal appearance of the appendix. No free intraperitoneal fluid or gas collections. No intestinal dilatation or mural thickening. Normal appearance of the sigmoid mesentery and small bowel mesentery. Normal appearance of the stomach and duodenum. ABDOMINAL WALL: No significant hernia is appreciated. LYMPH NODES: Normal. VASCULAR: Marked diffuse calcific atherosclerosis. system: A 5 mm dystrophic calcification is noted along the anterior margin of the uterine fundus and may represent a degenerated uterine fibroid. No adnexal lesions are noted. Bilateral fallopian tube ligation clips. OSSEOUS STRUCTURES: No suspicious skeletal lesions noted. IMPRESSION: *Single approximate 2.5 cm lesion of the inferior pole the right kidney. Of note, this lesion was evaluated to better advantage on the comparison unenhanced and IV contrast enhanced CT of the abdomen and pelvis 04/18/2024 which concluded that this mass was suspicious for renal cell carcinoma. On the current exam, this mass demonstrates intermediate attenuation which solely on the basis of this exam could be consistent with either a proteinaceous cyst or solid tumor. However, the prior unenhanced and IV contrast CT offers more specificity and concluded that this lesion is consistent with renal cell carcinoma. This lesion is unchanged appreciably in size compared with 04/18/2024. No abdominal lymphadenopathy. No evidence of metastatic disease on this unenhanced CT of the abdomen and pelvis. *Partial visualization of mild to moderate scattered coronary artery calcific atherosclerosis. Date of Service: 04/18/24 CT ABDOMEN AND PELVIS WITHOUT AND WITH CONTRAST CLINICAL INFORMATION: Right renal mass. COMPARISON: None available. TECHNIQUE: Contiguous axial thin section helical images of the abdomen were performed before and after the administration of oral contrast and 85 mL of Omnipaque 350 intravenous contrast. The data set was reformatted in the coronal and sagittal planes and reviewed on an independent workstation. This CT examination was performed using dose optimization techniques as appropriate, variously including the following: *Automated exposure control *Adjustment of mA and/or kV according to patient size (this includes techniques or standardized protocols for targeted exams where dose is matched to indication/reason for exam; i.e. extremities or head) *Use of iterative reconstruction technique DLP: 574 mGy-cm FINDINGS: LUNG BASES: Scarring present at the lung bases with some traction bronchiectasis on the right. There are a number of small pulmonary nodules seen at the right lung base the largest measuring 5 mm (6:22). LIVER, GALLBLADDER, AND BILIARY TREE: The liver, gallbladder and bile ducts are unremarkable. PANCREAS: Normal. SPLEEN: Normal. ADRENAL GLANDS: Normal. KIDNEYS: Right: There is a large 3.4 x 2.4 x 2.4 cm right lower pole enhancing renal mass consistent with a renal cell carcinoma. The mass extends to just before the level of the renal sinus. There are 2 additional tiny masses seen in the mid to upper left kidney laterally which measure 0.6 cm and 0.5 cm which may represent either tiny angiomyolipomas or cysts. In either case, these are not worrisome findings. No nephrocalcinosis. No hydronephrosis. The right ureter appears normal. Left: The left kidney and ureter appear normal. BOWEL LOOPS: Dense barium is present throughout the colon. No evidence of bowel obstruction. LYMPH NODES: No retroperitoneal lymphadenopathy. VASCULAR: Calcific atherosclerotic changes are present in the aorta and iliofemoral vessels with significant area of stenosis in the infrarenal aorta as well as in the iliac vessels. I suspect that this patient is a smoker and this represents Leriche syndrome. There is no evidence of an abdominal aortic aneurysm. BONES: Mild degenerative changes are present in the spine. No bony destructive lesions are seen to suggest metastatic disease. IMPRESSION: 1. A 3.4 cm right lower pole enhancing renal mass consistent with renal cell carcinoma. 2. No evidence of metastatic disease in the abdomen or pelvis. 3. Other incidental findings as described above including severe aortoiliac atherosclerotic changes with stenosis of the infrarenal aorta and iliac vessels. This patient is likely a smoker and this represents Leriche syndrome. 4. Incidentally noted pulmonary nodules, the largest measuring [address] at 3-6 months (per oncology protocol) to confirm persistence. Assessment & Plan Assessment & Plan (1) Renal cell carcinoma: Code(s): C64.9 - Malignant neoplasm of unspecified kidney, except renal pelvis Category: Medical Qualifiers: Laterality: right Qualified Code(s): C64.1 - Malignant neoplasm of right kidney, except renal pelvis (2) Nicotine dependence: Code(s): F17.200 - Nicotine dependence, unspecified, uncomplicated Category: Medical Plan CT abdomen with and without IV contrast follow-up right kidney renal cell carcinoma status post ablation on 09/11/2024. Orders: Orders CT abdomen wo/w IV con 3 Months C64.1 - Malignant neoplasm of right kidney, except renal pelvis Patient Instructions: The patient had an opportunity to ask questions regarding treatment plan. The patient expressed understanding and agreement with the above treatment plan. The patient is aware they should contact our office by phone for worsening of their current condition or the appearance of new symptoms. Compliance is encouraged with any medications and followup testing that is ordered. It is a privilege to be allowed the opportunity to participate in the urologic care of your patient. If you have any questions or concerns regarding treatment for the above conditions please do not hesitate to contact me. The office telephone contact is [phone]. This note is constructed in part using voice recognition software. While every effort has been made to ensure accuracy education counselor errors may have been incl uded. Yours sincerely, Vikki Rangel MD Coding Level of Care Code Est Pt Level 3 (68621) Complex EM visit Add On G2211 Diagnoses Renal cell carcinoma of right kidney C64.1 Laterality: right Nicotine dependence F17.200
== END 2025-01-25 16:06 | disposition home or self-care (01) ==
LOC: HO.HUSH 15:25
PROVIDERS: PCP Internal Medicine; Visit Provider Urology
DX: C64.1 Malignant neoplasm of right kidney, except renal pelvis (principal); F17.200 Nicotine dependence, unspecified, uncomplicated
CPT/HCPCS: 99213; G2211

== ENCOUNTER → 2025-01-25 15:24 | Outpatient (BNVA) | payer OTHER, SELFPAY | PROVIDERS: PCP Internal Medicine; Visit Provider Urology | DX: C64.1 Malignant neoplasm of right kidney, except renal pelvis (principal); F17.200 Nicotine dependence, unspecified, uncomplicated | CPT/HCPCS: 99212 ==

== ENCOUNTER 2025-02-01 15:47 | Outpatient (AMB) | payer OTHER, SELFPAY ==
--- NOTE | 2025-02-01 15:51 | A.OFFVIS_ITS ---
Vital Signs 02/01/25 15:58 Height 4 ft 9 in Weight 118 lb BMI 25.5 BP 140/80 H Blood Pressure Location Lt brachial Position Sitting Pulse 100 Pulse Source Pulse Oximeter Oxygen Delivery Method Room Air Intake Visit Reasons: 6 WKS F/U Abd. pain, N/V Intake Note: Est pt for mgmt of chronic abd pain, N+V. CC; C.O. difficulty with evacuation per pt. Pt denies any constipation or abd pain. No additional sx or concerns at this time. Unable to obtain reliable O2 reading. Pt not exhibiting any obvious signs of distress and denies any difficulty breathing at this time. O2 was reading 80% avg. Pt has very long and dark finger nails and this was likely causing a false low reading. Manager Internal Required: No Accompanied by: Family/Other Allergies amoxicillin (AMOXICILLIN) Allergy (Intermediate, Verified 02/01/25 15:51) RASH HPI HPI 6 WKS F/U Abd. pain, N/V: Details: Assessment & Plan (1) Abdominal pain: Code(s): R10.9 - Unspecified abdominal pain Category: Medical Qualifiers: Abdominal location: epigastric Qualified Code(s): R10.13 - Epigastric pain (2) Diarrhea: Code(s): R19.7 - Diarrhea, unspecified Category: Medical (3) Gastroparesis: Code(s): K31.84 - Gastroparesis Category: Medical (4) GERD (gastroesophageal reflux disease): Code(s): K21.9 - Gastro-esophageal reflux disease without esophagitis Category: Medical Qualifiers: Esophagitis presence: without esophagitis Qualified Code(s): K21.9 - Gastro-esophageal reflux disease without esophagitis Plan Her pain is improved after withholding the rosuvastatin and the iron pill. So far she is pleased with this and so is her significant other. However I want to give it more time to make sure these with the offending agents before we try reintroducing the cholesterol medication. It is entirely possible the iron pill was the root of the problem and since she is no longer severely anemic there are certainly no short term harm and holding this. Her current GI regimen consists of pantoprazole 40 mg twice a day, metoclopramide 5 mg 4 times a day and simethicone. Return office visit in 6 weeks Medications: Refilled pantoprazole take in am , 1 hour before food or medicine intake 40 mg PO BID 180 tabs 1RF K21.9 - Gastro-esophageal reflux disease without esophagitis, K29.50 - Unspecified chronic gastritis without bleeding Discontinued esomeprazole magnesium (Nexium) Discontinued Reason: Doctor's Order 40 mg PO DAILY 30 caps 2RF K21.9 - Gastro-esophageal reflux disease without esophagitis On Hold rosuvastatin Hold Comment: Doctor's Order 5 mg PO DAILY 90 tabs 1RF ferrous sulfate Hold Comment: Doctor's Order 324 mg PO DAILY 90 tabs 0RF Laboratory Tests 11/21/24 10:31 WBC 11.1 H Hgb 12.3 Hct 38.7 Plt Count 312 Estimated GFR > 60 Total Bilirubin 0.2 AST 14 ALT 6 Alkaline Phosphatase 89 TODAY'S VISIT Her current GI regimen consists of pantoprazole 40 mg twice a day, metoclopramide 5 mg 4 times a day and simethicone. She is having some uneveness of her bowels, moving them qod. BUT she does not feel bloated or ill when she does not move them, so I don't think she needs to worry about it unless this becomes more severe. Her abd pain has not returned. Now it is time to restart her statin, as I strongly feel that it was the iron pill that caused her sx. If her sx return she should stop it, but I find this unlikely. We had put off her repeat colonoscopy that was due in 2022 r/t her abd pain, respiratory failure and infections and the renal cancer, but now she feels well enough and is agreeable to scheduling this. Her COPD is controlled and she denies any cardiac problems. There are no prior problems with anesthesia or sedation. No ID problems. NO known FHX crc or polyps. ROV 8 weeks. [facility] Medical History Mixed dyslipidemia Heavy cigarette smoker History of pneumonia COPD mixed type Gastritis Diabetic gastroparesis Diastolic CHF with preserved left ventricular function, NYHA class 2 Chronic hypercapnic respiratory failure Type 2 diabetes mellitus with other diabetic kidney complication Essential hypertension Smoker unmotivated to quit Postlaminectomy syndrome of cervical region Seasonal allergic rhinitis GERD (gastroesophageal reflux disease) Surgical History H/O cervical discectomy History of esophagogastroduodenoscopy (EGD) Hx of colonoscopy Family History Mother Diabetes Sister Diabetes Mental health disorder Brother Diabetes Father HTN (hypertension) Social History Household Members: Significant Other Housing: Apartment Housing Other:: mobile home Are you a primary vehicle care specialist to a significant other at home: No Do you presently have visiting nurse or other home services: Yes ([employer]) Alcohol intake: never Comment: Commode/ Hi Flow O2 Patient Tobacco Use Status: Current everyday Tobacco user Tobacco use type: Cigarette Cigarette Packs Per Day: 0.5 Cigarettes Per Day: 10 Years Smoked: 51 e-Cigarette/Vaping Use: Never Used Second Hand Smoke Exposure: Yes Advance Directives Date on File: 08/02/23 service: No Current occupational status: unemployed and disabled Gender identity: Female Cognitive needs: No Hearing needs: No Vision needs: Yes Review of Systems Const Denies fatigue, Denies fever(s), Denies night sweats, Denies poor appetite and Denies weight loss Eyes Details: glasses Reports requires corrective lenses ENT Reports Normal hearing present, Denies dental pain, Denies dysphagia, Denies hea ring loss, Denies mouth pain, Denies odynophagia, Denies throat swelling, Denies tongue swelling and Reports other (Dentition adequate) GI Details: Denies abdominal pain, Denies melena, Denies bloating, Denies hematochezia, Denies constipation, Denies GI cramping, Denies dysphagia, Denies excessive flatus, Denies early satiety, Denies heartburn, Denies diarrhea, Denies nausea, Denies odynophagia, Denies vomiting and Denies hematemesis Skin/Breast Denies pruritus, Denies lesions, Denies rash and Denies jaundice Neuro Reports Normal hearing present and Denies Abnormal speech present Endo Denies fatigue Aller/Immun Denies throat swelling and Denies tongue swelling Physical Exam Vital Signs: Last Vital Signs Pulse 100 02/01/25 15:58 BP 140/80 H 02/01/25 15:58 Oxygen Delivery Method Room Air 02/01/25 15:58 BMI result Body Mass Index 25.5 Const General: cooperative, no acute distress, well developed and well groomed Nutritional Appearance: well nourished and obese Orientation/consciousness: oriented to person, oriented to place and oriented to time Limitations: language barrier and other limitations HEENT Head: Yes normocephalic and Yes atraumatic Eyes General: appearance normal, both eyes and all related structures Pupils: Equal, round and reactive pupils present Neck Neck: Yes normal visual inspection and Yes no lymphadenopathy Thyroid: Thyroid normal Resp Effort & Inspection: normal respiratory effort and able to speak in complete sentences Auscultation: clear to auscultation bilaterally Cardio Rate: regular rate Rhythm: regular rhythm Heart sounds: Normal, physiologic split S2 sound present Peripheral pulses: radial pulses present and posterior tibial pulses present GI Inspection: No distended, Yes Abdominal panniculus present and Yes obesity Palpation (GI): Soft to palpation, nontender, no guarding, not rigid and No hepatosplenomegaly present Percussion: Yes normal to percussion Auscultation: normal bowel sounds Rectal Exam - Female: deferred Skin General skin exam: no rashes or lesions noted, turgor normal, skin not dry, no jaundice, No spider nevi and no striae Rashes: no rashes Nails: normal Neuro General: oriented to person, oriented to place and oriented to time Cranial nerves: Yes Equal, round and reactive pupils present and Yes Normal hearing present Speech: No Abnormal speech present Extrem General: Yes normal to inspection, No clubbing, No cyanosis and No edema Psych Appearance: grossly normal and well kempt Mental Status: mental status grossly normal Speech and movement: Normal speech and movement present Affect: normal affect Attitude: cooperative Thought process: Normal thought process present and not confabulating Thought content: Normal thought content present Insight: Limited insight present (Psych) Judgement: Limited judgement present (Psych) Results Reviewed Results Reviewed: Laboratory Tests 11/21/24 10:31 WBC 11.1 H Hgb 12.3 Hct 38.7 Plt Count 312 Estimated GFR > 60 Total Bilirubin 0.2 AST 14 ALT 6 Alkaline Phosphatase 89 Assessment & Plan Assessment & Plan (1) Gastroparesis: Code(s): K31.84 - Gastroparesis Category: Medical (2) GERD (gastroesophageal reflux disease): Code(s): K21.9 - Gastro-esophageal reflux disease without esophagitis Category: Medical Qualifiers: Esophagitis presence: without esophagitis Qualified Code(s): K21.9 - Gastro-esophageal reflux disease without esophagitis Plan Her current GI regimen consists of pantoprazole 40 mg twice a day, metoclopramide 5 mg 4 times a day and simethicone. She is having some uneveness of her bowels, moving them qod. BUT she does not feel bloated or ill when she does not move them, so I don't think she needs to worry about it unless this becomes more severe. Her abd pain has not returned. Now it is time to restart her statin, as I strongly feel that it was the iron pill that caused her sx. If her sx return she should stop it, but I find this unlikely. We had put off her repeat colonoscopy that was due in 2022 r/t her abd pain, respiratory failure and infections and the renal cancer, but now she feels well enough and is agreeable to scheduling this. Her COPD is controlled and she denies any cardiac problems. There are no prior problems with anesthesia or sedation. No ID problems. NO known FHX crc or polyps. ROV 8 weeks. Orders: Orders Colonoscopy - GI Use Only Today Medications: New peg 3350-electrolytes 236-22.74-6.74 -5.86 gram (Golytely) until fecal effluent is clear; do not exceed a total volume of 2,000 mL 240 mL PO Q10M 4,000 mL 0RF 1 day Z12.11 - Encounter for screening for malignant neoplasm of colon bisacodyl (Dulcolax (bisacodyl)) 10 mg (2 x 5 mg) PO BEDTIME 4 tabs 0RF 2 days esomeprazole magnesium 40 mg PO DAILY 30 caps 6RF Refilled psyllium husk (Fiber Laxative (psyllium husk)) 1.04 grams (2 x 0.52 gram) PO BID 360 caps 3RF simethicone (Anti-Gas Ultra Strength) 180 mg PO QID 120 caps 6RF Coding Level of Care Code Est Pt Level 3 (30417) Diagnoses Gastroparesis K31.84 Gastroesophageal reflux disease without esophagitis K21.9 Esophagitis presence: without esophagitis
[2025-02-01 15:58] VITALS: BP 140/80; PULSE 100; BMI 25.5
== END 2025-02-01 16:15 | disposition home or self-care (01) ==
PROVIDERS: PCP Internal Medicine; Visit Provider Nurse Practitioner
DX: K31.84 Gastroparesis (principal); K21.9 Gastro-esophageal reflux disease without esophagitis
CPT/HCPCS: 99213

== ENCOUNTER → 2025-02-01 15:47 | Outpatient (BNVA) | payer OTHER, SELFPAY | PROVIDERS: PCP Internal Medicine; Visit Provider Nurse Practitioner | DX: K31.84 Gastroparesis (principal); K21.9 Gastro-esophageal reflux disease without esophagitis | CPT/HCPCS: 99212 ==

== ENCOUNTER 2025-02-04 14:58 | Inpatient (IN) | payer OTHER, SELFPAY ==
[2025-02-04] VITALS (8 sets, daily range): BP systolic 112–142; BP diastolic 44–55; PULSE 100–106; RESP 14–30; TEMP 36.3–36.6; O2SAT 88–93; BMI 24.7
--- NOTE | ~2025-02-04 | XR_ITS ---
CLINICAL HISTORY: chest pain 1 view chest x-ray. Comparison: 08/10/2024. 10/10/2024 Findings: No pneumothorax Mild right lung base atelectasis and consolidation. Heart size normal. Mediastinal contour is normal. No acute fracture. Impression: Central bronchial large airway inflammatory thickening. No solid masses or nodules detected by plain film x-ray. Normal heart size with mild pulmonary vascular congestion and increase in interstitial opacity in both lungs Bandlike consolidation involving right lung base not present on the previous exam, due to atelectasis or early consolidation This document has been electronically signed by: Kan Mcgowan MD on 02/04/2025 16:20:12
--- NOTE | ~2025-02-04 | CT_ITS ---
CLINICAL HISTORY: sob CTA angiography chest using bolus contrast injection. 3-D postprocessing Comparison: None Findings: Normal thoracic aorta and branch vessels Heart size is normal . RV/LV ratio normal There is posterior right costophrenic sulcus basilar consolidation and pleural thickening. Below the diaphragm , there is liver enlargement No acute fractures Impression: Normal CTA angiography of the aorta. Negative for pulmonary embolus. Posterior right costophrenic sulcus consolidation/pneumonia. Few smaller peripheral ground-glass opacities are also present involving right upper lobe, and medial left lower lobe. This document has been electronically signed by: Kan Mcgowan MD on 02/04/2025 17:59:05
--- NOTE | 2025-02-04 14:59 | ECG_ITS ---
Test Reason : CP Blood Pressure : */* mmHG Vent. Rate : 104 BPM Atrial Rate : 104 BPM P-R Int : 116 ms QRS Dur : 84 ms QT Int : 338 ms P-R-T Axes : 71 92 42 degrees QTcB Int : 444 ms Sinus tachycardia Rightward axis Borderline ECG When compared with ECG of 21-Nov-2024 10:21, No significant change was found Referred By: Generic ED Physician Electronically Signed By: SHANKAR GARCIA
--- NOTE | 2025-02-04 15:09 | ED.GENADULT ---
HPI - General Adult General Chief complaint: Chest Pain Stated complaint: back and chest pain Time Seen by Provider: 02/04/25 15:29 History of Present Illness HPI narrative: 64 years old woman with past medical history significant for COPD -home O2 2L/min, multiple hospitalizations due to COPD exacerbation, type 2 mellitus on metformin on metformin, essential hypertension, right renal mass (referral has been made to IR by urologist for embolization of the tumor) and ongoing tobacco smoking presents to emergency department complaining of shortness on breath. presents today with having increasing shortness of breath Related Data Home Medications ?Medication ?Instructions ?Recorded ?Confirmed aspirin 81 mg tablet,delayed 81 mg PO BEDTIME 01/10/21 12/25/24 release (Adult Low Dose Aspirin) sitagliptin phosphate 100 mg 100 mg PO DAILY 07/26/24 12/25/24 tablet (Januvia) fluticasone fur. 100 mcg-umeclid inhalation DAILY 09/28/24 12/25/24 62.5 mcg-vilant 25 mcg inhalat.powder (Trelegy Ellipta) azithromycin 500 mg tablet mg PO 02/01/25 Previous Rx's ?Medication ?Instructions ?Recorded blood-glucose meter (FreeStyle #1 ea 10/03/21 Lite Meter kit) lancets 28 gauge (FreeStyle #100 ea 01/06/22 Lancets) FreeStyle Lite Strips (blood sugar #100 ea 03/10/22 diagnostic) flash glucose sensor (FreeStyle #6 ea 02/19/23 Cristian 2 Sensor kit) flash glucose scanning reader #1 ea 03/26/23 (FreeStyle Cristian 2 [place]) ipratropium 0.5 mg-albuterol 3 mg 3 ml inhalation Q6H wheezing 1 06/21/24 (2.5 mg base)/3 mL nebulization month #180 mL soln rosuvastatin 5 mg tablet 5 mg PO DAILY #90 tabs 07/11/24 Held on 12/13/24. Instructions: Doctor's Order amlodipine 5 mg tablet 5 mg PO DAILY #90 tabs 07/21/24 cholecalciferol (vitamin D3) 50 50 mcg PO DAILY #90 caps 07/21/24 mcg (2,000 unit) capsule baclofen 10 mg tablet 10 mg PO TID 30 days #90 tabs 08/24/24 gabapentin 800 mg tablet 800 mg PO TID 30 days #90 tabs 10/05/24 metformin 1,000 mg tablet 1,000 mg PO BID #180 tabs 11/28/24 losartan 50 mg tablet 50 mg PO DAILY #90 tabs 01/11/25 metoclopramide HCl 10 mg tablet 10 mg PO QIDACHS #180 tabs 01/18/25 (Reglan) magnesium oxide 400 mg PO BEDTIME #30 caps 01/26/25 bisacodyl 5 mg tablet,delayed 10 mg (2 x 5 mg) PO BEDTIME 2 days 02/01/25 release (Dulcolax (bisacodyl)) #4 tabs esomeprazole magnesium 40 mg 40 mg PO DAILY #30 caps 02/01/25 capsule,delayed release peg 3350-electrolytes 236 240 ml PO Q10M 1 day #4,000 mL 02/01/25 gram-22.74 gram-6.74 gram-5.86 gram solution (Golytely) psyllium husk 0.52 gram capsule 1.04 g (2 x 0.52 gram) PO BID #360 02/01/25 (Fiber Laxative (psyllium husk)) caps simethicone 180 mg capsule 180 mg PO QID #120 caps 02/01/25 (Anti-Gas Ultra Strength) Allergies Allergy/AdvReac Type Severity Reaction Status Date / Time amoxicillin (AMOXICILLIN) Allergy Intermediate RASH Verified 02/04/25 15:15 [facility] Past Medical History Medical History Mixed dyslipidemia Heavy cigarette smoker History of pneumonia COPD mixed type Gastritis Diabetic gastroparesis Diastolic CHF with preserved left ventricular function, NYHA class 2 Chronic hypercapnic respiratory failure Type 2 diabetes mellitus with other diabetic kidney complication Essential hypertension Smoker unmotivated to quit Postlaminectomy syndrome of cervical region Seasonal allergic rhinitis GERD (gastroesophageal reflux disease) Surgical History H/O cervical discectomy History of esophagogastroduodenoscopy (EGD) Hx of colonoscopy Family History Family History Mother Diabetes Sister Diabetes Mental health disorder Brother Diabetes Father HTN (hypertension) Social History Social History Household Members: Significant Other Housing: Apartment Housing Other:: mobile home Are you a primary medical care manager to a significant other at home: No Do you presently have visiting nurse or other home services: Yes ([facility]) Alcohol intake: never Comment: Commode/ Hi Flow O2 Patient Tobacco Use Status: Current everyday Tobacco user Tobacco use type: Cigarette Cigarette Packs Per Day: 0.5 Cigarettes Per Day: 10 Years Smoked: 51 Smoked in Last 30 Days: Yes e-Cigarette/Vaping Use: Never Used Second Hand Smoke Exposure: Yes Advance Directives: Yes Advance Directives on File: Yes Advance Directives Date on File: 08/02/23 Do you have a plan to hurt others: No Plan Nutrition Risks: No Nutritional Risk service: No Current occupational status: unemployed and disabled Gender identity: Female Cognitive needs: No Hearing needs: No Vision needs: Yes Physical Exam ED Vital Signs: Vital Signs - 24 hr 02/04/25 15:11 02/04/25 16:18 02/04/25 17:18 Temperature 97.7 F Pulse Rate 104 H 100 103 H Respiratory Rate 18 14 30 H Blood Pressure 130/55 L 142/49 H Pulse Oximetry 88 L 90 L Oxygen Delivery Method Nasal Cannula Room Air Oxygen Flow Rate 02/04/25 18:30 02/04/25 19:02 Temperature 97.4 F Pulse Rate 102 H 102 H Respiratory Rate 29 H 22 H Blood Pressure 112/44 L Pulse Oximetry 88 L Oxygen Delivery Method Nasal Cannula Oxygen Flow Rate 4 BMI result Body Mass Index 24.7 Course Course Course Narrative: RME: 64 yold female presents to the Coughing, back pain, and chest pain and still smokes. labs, EKG ordered. Medications Administered Generic Name Dose Route Start Last Admin Trade Name Freq PRN Reason Stop Dose Admin Albuterol/Ipratropium 3 ml 02/04/25 19:30 02/04/25 21:22 Albuterol/Iprat 2.5/0.5mg 3 Ml Ampul.Neb INHALE Not Given Q6H MOUSTAPHA Enoxaparin Sodium 40 mg 02/04/25 20:00 02/04/25 21:14 Enoxaparin Sodium 40 Mg/0.4 Ml Syringe SUBCUT 40 mg Q24H MOUSTAPHA Administration Gabapentin 300 mg 02/04/25 21:00 02/04/25 21:15 Gabapentin 300 Mg Capsule PO 300 mg TID [facility] Administration Insulin Human Lispro 0 unit 02/04/25 21:00 02/04/25 21:12 Insulin Lispro 100 Unit/Ml 3 Ml Vial SUBCUT 4 unit QIDACHS [facility] Administration Protocol Discontinued Medications Generic Name Dose Route Start Last Admin Trade Name Jordon PRN Reason Stop Dose Admin Albuterol/Ipratropium 3 ml 02/04/25 19:01 02/04/25 19:10 Albuterol/Iprat 2.5/0.5mg 3 Ml Ampul.Neb INHALE 02/04/25 19:02 3 ml ONCE ONE Administration Ceftriaxone Sodium 1 gm 02/04/25 18:15 02/04/25 18:29 Ceftriaxone Sodium 1 Gm Vial IVPUSH 02/04/25 18:16 1 gm ONCE ONE Administration Albuterol Sulfate 2.5 mg/ 0 mg 02/04/25 16:13 02/04/25 16:18 Albuterol/Ipratropium 3 ml INHALE 02/04/25 16:14 1 dose ONCE ONE Administration Sodium Chloride 1,551.3 mls @ 1,551.3 mls/hr 02/04/25 18:14 02/04/25 22:43 Ns 30 ml/kg infuse over 1 hr (1551.3 ml) 02/04/25 19:13 Infused IV Infusion .Q1H STA Azithromycin 500 mg/ Sodium 250 mls @ 125 mls/hr 02/04/25 18:15 02/04/25 23:12 Chloride IV 02/04/25 20:14 Infused ONCE ONE Infusion Iohexol 100 ml 02/04/25 17:11 02/04/25 17:11 Iohexol 350 Mg/Ml 100 Ml Infus..Btl IV 02/04/25 17:12 65 ml ONCE ONE Administration Methylprednisolone Sodium Succinate 60 mg 02/04/25 16:30 02/04/25 16:47 Methylprednisolone Sod Succ 125 Mg/2 Ml Vial IVPUSH 02/04/25 16:31 60 mg ONCE ONE Administration Medical Decision Making Medical Decision Making MDM Narrative: patient has a history of COPD. Presents today with having shortness of breath generalized malaise history of smoking history of renal cell carcinoma patient had a CT angio of the chest done. There was no evidence for PE there is evidence for pneumonia. Had an elevated lactate was given IV fluids. Antibiotic was started. Patient received additional neb treatment. The repeat lactate was more elevated than the initial 1 most likely secondary to additional neb treatment. Patient was also given steroids. repeat focal exam for sepsis was done at approximately 19:00. Patient is awake alert appears improved. Currently awaiting admission. Differential Diagnosis Differential Diagnoses: The differential diagnosis associated with the presentation includes Pneumonia, COPD Admission/Observation Consideration of admission/observation: Escalation of care including admission/observation considered Consult Healthcare Provider Management of the patient was discussed with: Hospitalist Lab Data [facility] Lab Attestation statement: I reviewed the patient's lab results. 02/04/25 15:11 02/04/25 15:11 Labs: Lab Results 02/04/25 02/04/25 02/04/25 Range/Units 15:11 16:35 18:53 WBC 15.3 H (4.8-10.8) X10*3/uL RBC 4.43 (4.20-5.50) X10*6/uL Hgb 10.6 L (12.0-16.0) g/dl Hct 35.9 L (37.0-47.0) % MCV 81.0 (80.0-98.0) fL MCH 23.9 L (27.0-33.0) pg MCHC 29.5 L (31.0-35.0) g/dl RDW 16.1 H (11.0-16.0) % Plt Count 291 (160-400) X10*3/uL MPV 9.5 (9.4-12.3) fL Immature Gran % (Auto) 0.6 H (0.0-0.4) % Neut % (Auto) 81.1 H (45-73) % Lymph % (Auto) 9.5 L (20-40) % [place] % (Auto) 7.5 (2-11) % Eos % (Auto) 0.8 (0-4) % Baso % (Auto) 0.5 (0-2) % Lymph # (Auto) 1.5 (1.2-4.9) X10*3/uL [place] # (Auto) 1.2 (0.1-1.2) X10*3/uL Eos # (Auto) 0.1 (0.0-0.4) X10*3/uL Baso # (Auto) 0.1 (0.0-0.2) X10*3/uL Abs Immat Gran (auto) 0.09 H (0.00-0.03) X10*3/uL Absolute Neuts (auto) 12.4 H (2.0-8.3) x10*3/uL Absolute Nucleated RBC 0.000 (0.0-0.012) X10*3/uL Nucleated RBC % (auto) 0.0 (0.0-0.2) /100WBC Sodium 143 (135-145) mmol/L Potassium 3.7 (3.3-5.1) mmol/L Chloride 99 (96-108) mmol/L Carbon Dioxide 32 H (22-29) mmol/L Anion Gap 16 (12-20) BUN 7 L (9-16) mg/dL Creatinine 0.39 L (0.5-1.4) mg/dL Estim Creat Clear Calc 102.2 Estimated GFR > 60 Random Glucose 176 H (60-115) mg/dL Lactic Acid 2.3 H* (0.5-2.0) mmol/L Lactic Acid F/U @ 2Hr 3.1 H* (0.5-2.0) mmol/L Calcium 10.7 H (8.4-10.2) mg/dL Total Bilirubin 0.5 (0.0-1.0) mg/dL AST 12 (5-31) U/L ALT 8 (0-31) U/L Alkaline Phosphatase 88 (39-117) U/L Troponin I High Sens 4.4 D (<3.5-17.0) ng/L B-Natriuretic Peptide < 10 (<100) pg/mL Total Protein 7.0 (6.5-8.0) g/dL Albumin 4.3 (3.5-5.0) g/dL Influenza Type A (PCR) NEGATIVE (Negative) Influenza Type B (PCR) NEGATIVE (Negative) RSV RNA Qual (PCR) NEGATIVE (Negative) SARS-CoV-2 RNA (RT-PCR) NEGATIVE (Negative) Independent Interpretation I performed an independent interpretation of an: CT Scan Radiology Impression Discussion of test interpretation with radiology: I have reviewed the radiologist's reading. External Record Review External record reviewed: Inpatient record Chronic Conditions Patient?s care impacted by: Diabetes and Hypertension COPD Social Determinants Patient?s care significantly limited by Social Determinants of Health including: Alcoholism and drug addiction in family and Problems related to primary support group Critical Care Time Critical Care Time Critical Care Time: Yes Total Critical Care Time: 40 Attestation: I have personally provided 40 minutes of critical care time exclusive of time spent on separately billable procedures. Time includes review of lab data, radiology results, discussion with consultants, and monitoring for potential decompensation. Interventions were performed as documented above Discharge Plan Discharge Clinical Impression: Pneumonia, COPD (chronic obstructive pulmonary disease) Patient Disposition: Admitted As Inpatient
[2025-02-04 15:15] LABS: MANUAL DIFF FLAG NO
[2025-02-04 15:18] LABS: Basophils Absolute Auto 0.1 X10*3/uL (0.0-0.2); Basophils Percent Auto 0.5 % (0-2); Eosinophils Absolute Auto 0.1 X10*3/uL (0.0-0.4); Eosinophils Percent Auto 0.8 % (0-4); Hematocrit 35.9 % (37.0-47.0); Hemoglobin 10.6 g/dl (12.0-16.0); Imm Gran Abs Auto 0.09 X10*3/uL (0.00-0.03); Imm Gran Pct Auto 0.6 % (0.0-0.4); Lymphocytes Absolute Auto 1.5 X10*3/uL (1.2-4.9); Lymphocytes Percent Auto 9.5 % (20-40); Mean Corpuscular HGB Conc 29.5 g/dl (31.0-35.0); Mean Corpuscular Hemoglobin 23.9 pg (27.0-33.0); Mean Platelet Volume 9.5 fL (9.4-12.3); Monocytes Absolute Auto 1.2 X10*3/uL (0.1-1.2); Monocytes Percent Auto 7.5 % (2-11); Neutrophils Absolute Auto 12.4 x10*3/uL (2.0-8.3); Neutrophils Percent Auto 81.1 % (45-73); Platelet Count 291 X10*3/uL (160-400); Red Blood Count 4.43 X10*6/uL (4.20-5.50); Red Cell Distribution Width 16.1 % (11.0-16.0); White Blood Count 15.3 X10*3/uL (4.8-10.8)
[2025-02-04 15:32] LABS: Alanine Aminotransferase 8 U/L (0-31); Albumin Level 4.3 g/dL (3.5-5.0); Alkaline Phosphatase 88 U/L (39-117); Anion Gap 16 (12-20); Aspartate Amino Transferase 12 U/L (5-31); Bilirubin Total 0.5 mg/dL (0.0-1.0); Blood Urea Nitrogen 7 mg/dL (9-16); Calcium 10.7 mg/dL (8.4-10.2); Carbon Dioxide 32 mmol/L (22-29); Chloride 99 mmol/L (96-108); Creatinine Clr Calc Pharmacy 102.2; Estimated Glomerular Filt Rate > 60; Glucose Random 176 mg/dL (60-115); Potassium 3.7 mmol/L (3.3-5.1); Sodium 143 mmol/L (135-145)
[2025-02-04 15:38] LABS: B Type Natriuretic Peptide < 10 pg/mL (<100)
[2025-02-04 15:39] LABS: Troponin-I High Sensitivity 4.4 ng/L (<3.5-17.0)
[2025-02-04] MEDS: Albuterol Sulfate 2.5 MG, Albuterol/Iprat 2.5/0.5MG 3 ML 3 ML INHALE (16:18)
[2025-02-04] MEDS: methylPREDNISolone Sod Succ 125 MG/2 ML VIAL 60 MG IVPUSH (16:47)
[2025-02-04 17:01] LABS: Lactic Acid 2.3 mmol/L (0.5-2.0)
[2025-02-04] MEDS: iohexoL 350 MG/ML 100 ML INFUS..BTL IV (17:11)
--- NOTE | 2025-02-04 17:17 | PC.NURSE ---
patient alerted this RN she felt sb after CT scan. patient satting 84% on 2lNC. patient repositioned onto back and boosted in bed to semi / high fowlers. o2 increased 4lNC, sat now 90%.
[2025-02-04 17:19] LABS: Influenza A PCR NEGATIVE (Negative); Influenza B PCR NEGATIVE (Negative); Resp Syncy Virus RNA Qual PCR NEGATIVE (Negative); SARS COV2 PCR INHOUSE NEGATIVE (Negative)
[2025-02-04] MEDS: cefTRIAXone sodium 1 GM VIAL IVPUSH (18:29)
[2025-02-04] MEDS: 0.9 % Sodium Chloride 1,551.3 ML 1551.3 ML IV (18:29)
[2025-02-04 18:41] LABS: Reflex Lactate? Lactic Acid Added
[2025-02-04] MEDS: Azithromycin 500 MG in 0.9 % Sodium Chloride 250 ML 125 MG IV (18:49)
[2025-02-04] MEDS: Albuterol/Iprat 2.5/0.5MG 3 ML AMPUL.NEB INHALE (19:10)
[2025-02-04 19:15] LABS: ~Lactic Acid-LAB USE ONLY 3.1 mmol/L (0.5-2.0)
--- NOTE | 2025-02-04 19:24 | PM.IMHP ---
History of Present Illness Date of Service: 02/04/25 Chief Complaint: sob 64-year-old female with a past medical history of HTN, HLD, DM, COPD on home O2, GERD, gastroparesis, renal cell carcinoma, tobacco dependence presented to the hospital with a chief complaint of cough and shortness of breath. Patient reported over the past few days he has been having cough and shortness of breath. Shortness of breaths has been gradually worsening. Denies any chest pain or palpitations. Denies any sick contacts. Denies any recent travel. Review of all other systems is negative except mentioned above ER course: Per ER team, patient noted to be short of breath, diminished lung sounds; CT chest showed no evidence of PE but noted to have findings concerning for pneumonia. Given antibiotics, nebulizations and steroids. Lactic acid slightly elevated. [facility] Medical History Mixed dyslipidemia Heavy cigarette smoker History of pneumonia COPD mixed type Gastritis Diabetic gastroparesis Diastolic CHF with preserved left ventricular function, NYHA class 2 Chronic hypercapnic respiratory failure Type 2 diabetes mellitus with other diabetic kidney complication Essential hypertension Smoker unmotivated to quit Postlaminectomy syndrome of cervical region Seasonal allergic rhinitis GERD (gastroesophageal reflux disease) Family History Mother Diabetes Sister Diabetes Mental health disorder Brother Diabetes Father HTN (hypertension) Surgical History H/O cervical discectomy History of esophagogastroduodenoscopy (EGD) Hx of colonoscopy Social History Household Members: Significant Other Housing: Apartment Housing Other:: mobile home Are you a primary care management associate to a significant other at home: No Do you presently have visiting nurse or other home services: Yes ([facility]) Alcohol intake: never Comment: Commode/ Hi Flow O2 Patient Tobacco Use Status: Current everyday Tobacco user Tobacco use type: Cigarette Cigarette Packs Per Day: 0.5 Cigarettes Per Day: 10 Years Smoked: 51 Smoked in Last 30 Days: Yes e-Cigarette/Vaping Use: Never Used Second Hand Smoke Exposure: Yes Advance Directives: Yes Advance Directives on File: Yes Advance Directives Date on File: 08/02/23 Do you have a plan to hurt others: No Plan service: No Current occupational status: unemployed and disabled Gender identity: Female Cognitive needs: No Hearing needs: No Vision needs: Yes Meds Allergies Allergy/AdvReac Type Severity Reaction Status Date / Time amoxicillin (AMOXICILLIN) Allergy Intermediate RASH Verified 02/04/25 15:15 Active Medications: Current Medications Acetaminophen (Acetaminophen 325 Mg Tablet) 650 mg PO Q6H PRN PRN Reason: Pain, Mild 1-3,fever,headache Albuterol/Ipratropium (Albuterol/Iprat 2.5/0.5mg 3 Ml Ampul.Neb) 3 ml INHALE Q4H PRN PRN Reason: Shortness of Breath/Wheezing Albuterol/Ipratropium (Albuterol/Iprat 2.5/0.5mg 3 Ml Ampul.Neb) 3 ml INHALE Q6H MOUSTAPHA Azithromycin (Azithromycin 500 Mg Tablet) 500 mg PO Q24H MOUSTAPHA Benzonatate (Benzonatate 100 Mg Capsule) 100 mg PO TID PRN PRN Reason: Cough Calcium Carbonate (Calcium Carbonate 750 Mg Tab.Chew) 750 mg PO Q4H PRN PRN Reason: Heartburn Ceftriaxone Sodium (Ceftriaxone Sodium 1 Gm Vial) 1 gm IVPUSH Q24H MOUSTAPHA Dextrose (Dextrose 50 % 25 Gm/50 Ml Syringe) 25 gm IVPUSH Q15M PRN; Protocol PRN Reason: per Hypoglycemia Standing Ord. Enoxaparin Sodium (Enoxaparin Sodium 40 Mg/0.4 Ml Syringe) 40 mg SUBCUT Q24H MOUSTAPHA Gabapentin (Gabapentin 300 Mg Capsule) 300 mg PO TID MOUSTAPHA Glucose (Glucose Gel 15 Gm Gel..Gram.) 15 gm PO Q15M PRN; Protocol PRN Reason: per Hypoglycemia Standing Ord. Azithromycin 500 mg/ Sodium (Chloride) 250 mls @ 125 mls/hr IV ONCE ONE Stop: 02/04/25 20:14 Last Admin: 02/04/25 18:49 Dose: 125 mls/hr Insulin Human Lispro (Insulin Lispro 100 Unit/Ml 3 Ml Vial) 0 unit SUBCUT QIDACHS MOUSTAPHA; Protocol Magnesium Hydroxide (Milk Of Magnesia 30 Ml Oral.Susp) 30 ml PO DAILY PRN PRN Reason: Constipation Melatonin (Melatonin 3 Mg Tablet) 6 mg PO BEDTIME PRN PRN Reason: Insomnia Methylprednisolone Sodium Succinate (Methylprednisolone Sod Succ 40 Mg Vial) 40 mg IVPUSH Q8H [facility] Sodium Chloride (0.9 % Sodium Chloride Flush 3 Ml Syringe) 3 ml IVFLUSH QSHIFT [facility] Home Medications ?Medication ?Instructions ?Recorded ?Confirmed ?Last Taken ?Type aspirin 81 mg tablet,delayed 81 mg PO BEDTIME 01/10/21 12/25/24 08/10/24 History release (Adult Low Dose Aspirin) sitagliptin phosphate 100 mg 100 mg PO DAILY 07/26/24 12/25/24 08/10/24 History tablet (Januvia) fluticasone fur. 100 mcg-umeclid inhalation DAILY 09/28/24 12/25/24 Unknown History 62.5 mcg-vilant 25 mcg inhalat.powder (Trelegy Ellipta) azithromycin 500 mg tablet mg PO 02/01/25 Unknown History Physical Exam Vital Signs and Narrative: Vital Signs: Last Vital Signs Temp 97.4 F 02/04/25 18:30 Pulse 102 H 02/04/25 19:02 Resp 22 H 02/04/25 19:02 BP 112/44 L 02/04/25 18:30 Pulse Ox 88 L 02/04/25 18:30 O2 Del Method Nasal Cannula 02/04/25 18:30 O2 Flow Rate 4 02/04/25 18:30 Oxygen Flow Rate 2 02/04/25 15:11 BMI result Body Mass Index 24.7 Gen: Appears be in no acute distress HEENT: NCAT, Moist mucosa. Pulmonary: Coarse breath sounds CVS: Normal S1-S2 Abdomen: BS+, Soft, Nontender Extremities: Warm well perfused Neuro: Alert and awake. Results Labs 02/04/25 15:11 02/04/25 15:11 Labs: Laboratory Results - last 24 hr 02/04/25 02/04/25 02/04/25 15:11 16:35 18:53 MCV 81.0 MCH 23.9 L MCHC 29.5 L RDW 16.1 H Plt Count 291 MPV 9.5 Immature Gran % (Auto) 0.6 H Neut % (Auto) 81.1 H Lymph % (Auto) 9.5 L [place] % (Auto) 7.5 Eos % (Auto) 0.8 Baso % (Auto) 0.5 Lymph # (Auto) 1.5 [place] # (Auto) 1.2 Eos # (Auto) 0.1 Baso # (Auto) 0.1 Abs Immat Gran (auto) 0.09 H Absolute Neuts (auto) 12.4 H Absolute Nucleated RBC 0.000 Nucleated RBC % (auto) 0.0 Anion Gap 16 Estim Creat Clear Calc 102.2 Estimated GFR > 60 Random Glucose 176 H Lactic Acid 2.3 H* Lactic Acid F/U @ 2Hr 3.1 H* Calcium 10.7 H Total Bilirubin 0.5 AST 12 ALT 8 Alkaline Phosphatase 88 Troponin I High Sens 4.4 D B-Natriuretic Peptide < 10 Total Protein 7.0 Albumin 4.3 Influenza Type A (PCR) NEGATIVE Influenza Type B (PCR) NEGATIVE RSV RNA Qual (PCR) NEGATIVE SARS-CoV-2 RNA (RT-PCR) NEGATIVE Assessment and Plan (1) COPD mixed type: Status: Acute Plan 64-year-old female with a past medical history of HTN, HLD, DM, COPD on home O2, GERD, gastroparesis, renal cell carcinoma, tobacco dependence presented to the hospital with a chief complaint of cough and shortness of breath. Admitted for following COPD exacerbation: pneumonia: Continue nebulizations standing and p.r.n. Continue Solu-Medrol Supplemental oxygen p.r.n. at goal oxygen saturation up to 93% Trending pulse oximetric and ready for discharge Continue ceftriaxone and azithromycin Follow-up cultures Diabetes: Insulin sliding scale History and/HLD: Continue home medications pending med reconciliation. DVT prophylaxis: Lovenox Code status: Full code Quality Stroke Does the patient have a stroke diagnosis?: No VTE Prior VTE?: No VTE Risk Level:: Medical - moderate - high VTE Device Contraindication: Treatment Not Indicated VTE Drug Contraindication: N/A - Med Ordered
[2025-02-04 20:56] LABS: Reflex Lactate? 2 Y
[2025-02-04] MEDS: Insulin Lispro 100 UNIT/ML 3 ML VIAL SUBCUT (21:12)
[2025-02-04] MEDS: Enoxaparin Sodium 40 MG/0.4 ML SYRINGE SUBCUT (21:14)
[2025-02-04] MEDS: Gabapentin 300 MG CAPSULE PO (21:15)
[2025-02-04 22:39] LABS: ~Lactic Acid-LAB USE ONLY 4.7 mmol/L (0.5-2.0)
[2025-02-05] VITALS (9 sets, daily range): BP systolic 113–163; BP diastolic 46–88; PULSE 84–95; RESP 12–22; TEMP 36.3–36.9; O2SAT 90–98
[2025-02-05 00:59] LABS: Glucose, Whole Blood 202 mg/dL (60-115)
[2025-02-05] MEDS: methylPREDNISolone Sod Succ 40 MG VIAL IVPUSH ×3 (04:11→20:45)
[2025-02-05 04:35] LABS: Basophils Percent Auto 0.2 % (0-2); Hematocrit 31.7 % (37.0-47.0); Hemoglobin 9.4 g/dl (12.0-16.0); Imm Gran Abs Auto 0.09 X10*3/uL (0.00-0.03); Imm Gran Pct Auto 0.7 % (0.0-0.4); Lymphocytes Absolute Auto 0.6 X10*3/uL (1.2-4.9); Lymphocytes Percent Auto 4.6 % (20-40); MANUAL DIFF FLAG SCAN; Mean Corpuscular HGB Conc 29.7 g/dl (31.0-35.0); Mean Corpuscular Hemoglobin 24.5 pg (27.0-33.0); Mean Corpuscular Volume 82.8 fL (80.0-98.0); Monocytes Absolute Auto 0.4 X10*3/uL (0.1-1.2); Monocytes Percent Auto 3.6 % (2-11); Neutrophils Absolute Auto 11.2 x10*3/uL (2.0-8.3); Neutrophils Percent Auto 90.9 % (45-73); Platelet Count 287 X10*3/uL (160-400); Red Blood Count 3.83 X10*6/uL (4.20-5.50); Red Cell Distribution Width 16.2 % (11.0-16.0); SCAN SMEAR FLAG 1; White Blood Count 12.3 X10*3/uL (4.8-10.8)
[2025-02-05 04:58] LABS: Alanine Aminotransferase 18 U/L (0-31); Albumin Level 3.9 g/dL (3.5-5.0); Alkaline Phosphatase 86 U/L (39-117); Anion Gap 12 (12-20); Aspartate Amino Transferase 22 U/L (5-31); Bilirubin Total 0.2 mg/dL (0.0-1.0); Blood Urea Nitrogen 7 mg/dL (9-16); Calcium 9.8 mg/dL (8.4-10.2); Carbon Dioxide 33 mmol/L (22-29); Chloride 104 mmol/L (96-108); Creatinine Clr Calc Pharmacy 99.6; Estimated Glomerular Filt Rate > 60; Glucose Random 181 mg/dL (60-115); Potassium 4.1 mmol/L (3.3-5.1); Sodium 145 mmol/L (135-145); Total Protein 6.3 g/dL (6.5-8.0)
[2025-02-05 05:07] LABS: SLIDE REVIEW VERIFIED
[2025-02-05 07:13] LABS: Glucose, Whole Blood 177 mg/dL (60-115)
--- NOTE | 2025-02-05 08:40 | PC.NURSE ---
patient verbalizing she needs to have a BM. 1:1 assist OOB and to the commode. pt noted to have small/formed BM. pt assisted back into bed/repositioned to comfort. no sob/wob noted w/ exertion or at rest. resting comfortably in no apparent distress. plan of care ongoing. call burger placed within reach.
[2025-02-05] MEDS: Insulin Lispro 100 UNIT/ML 3 ML VIAL SUBCUT ×4 (08:58→21:01)
[2025-02-05] MEDS: Gabapentin 300 MG CAPSULE PO ×3 (08:59→20:45)
[2025-02-05] MEDS: 0.9 % Sodium Chloride Flush 3 ML SYRINGE IVFLUSH ×2 (09:00→15:37)
--- NOTE | 2025-02-05 11:29 | PHA.MEDREC ---
Addendum entered by [facility] 02/05/25 11:44: MED REC CHECKED BY [facility] Original Note: Pharmacy Consult ? Medication Reconciliation Pharmacy has completed the medication reconciliation. Spoke to patient to confirm med list. Patient states she is no longer taking Ferrous Sulfate 324 mg, and Pantoprazole 40 mg ( Taking esomeprazole 40 mg). Patient confirmed Azithromycin 500 mg Wednesday, and Wednesday. patient last had her medications Wednesday02/04/25
[2025-02-05 13:17] LABS: Glucose, Whole Blood 155 mg/dL (60-115)
--- NOTE | 2025-02-05 16:57 | MHC.EDTECH ---
Patient used commode
[2025-02-05] MEDS: cefTRIAXone sodium 1 GM VIAL IVPUSH (17:44)
[2025-02-05 18:14] LABS: Glucose, Whole Blood 174 mg/dL (60-115)
--- NOTE | 2025-02-05 18:17 | MHC.EDTECH ---
Patient given dinner tray
[2025-02-05] MEDS: Azithromycin 500 MG TABLET PO (18:18)
--- NOTE | 2025-02-05 19:24 | P.PNIM_ITS ---
Subjective Subjective Date of Service: 02/05/25 Interval History: Continues to experience SOB and difficulty breathing Productive cough Feels mildly improved since presentation to the ED No nausea, vomiting, abdominal pain Some chest tightness with breathing, though no chest pain Review of Systems Review of Systems: Yes all other systems are reviewed and are negative Physical Exam 2 Vital Signs: Vital Signs: Last Vital Signs Temp 98.4 F 02/05/25 17:48 Pulse 86 02/05/25 17:48 Resp 18 02/05/25 17:48 BP 132/46 L 02/05/25 17:48 Pulse Ox 94 02/05/25 17:48 O2 Del Method Nasal Cannula 02/05/25 17:48 O2 Flow Rate 4 02/05/25 17:48 Oxygen Flow Rate 2 02/04/25 15:11 BMI result Body Mass Index 24.7 General: AOx3, looks uncomfortable. In no acute distress Resp: Significant expiratory wheezing and rhonchi bilaterally CVS: S1, S2, RRR GI: +BS, NT, no distention Skin: Warm, dry Neuro: Cranial nerves II-XII grossly intact bilaterally. Motor grossly intact bilaterally Extremities: No edema Psych: Appropriate affect Objective Data Active Medications Acetaminophen (Acetaminophen 325 Mg Tablet) 650 mg PO Q6H PRN PRN Reason: Pain, Mild 1-3,fever,headache Albuterol/Ipratropium (Albuterol/Iprat 2.5/0.5mg 3 Ml Ampul.Neb) 3 ml INHALE Q4H PRN PRN Reason: Shortness of Breath/Wheezing Albuterol/Ipratropium (Albuterol/Iprat 2.5/0.5mg 3 Ml Ampul.Neb) 3 ml INHALE Q6H [facility] Last Admin: 02/05/25 11:29 Dose: Not Given Documented By: DEYA Non-Admin Reason: Patient Refused Azithromycin (Azithromycin 500 Mg Tablet) 500 mg PO Q24H [facility] Last Admin: 02/05/25 18:18 Dose: 500 mg Documented By: FRANCES Benzonatate (Benzonatate 100 Mg Capsule) 100 mg PO TID PRN PRN Reason: Cough Calcium Carbonate (Calcium Carbonate 750 Mg Tab.Chew) 750 mg PO Q4H PRN PRN Reason: Heartburn Ceftriaxone Sodium (Ceftriaxone Sodium 1 Gm Vial) 1 gm IVPUSH Q24H [facility] Last Admin: 02/05/25 17:44 Dose: 1 gm Documented By: FRANCES Dextrose (Dextrose 50 % 25 Gm/50 Ml Syringe) 25 gm IVPUSH Q15M PRN; Protocol PRN Reason: per Hypoglycemia Standing Ord. Enoxaparin Sodium (Enoxaparin Sodium 40 Mg/0.4 Ml Syringe) 40 mg SUBCUT Q24H [facility] Last Admin: 02/04/25 21:14 Dose: 40 mg Documented By: KATIE Gabapentin (Gabapentin 300 Mg Capsule) 300 mg PO TID [facility] Last Admin: 02/05/25 15:35 Dose: 300 mg Documented By: FRANCES Glucose (Glucose Gel 15 Gm Gel..Gram.) 15 gm PO Q15M PRN; Protocol PRN Reason: per Hypoglycemia Standing Ord. Insulin Human Lispro (Insulin Lispro 100 Unit/Ml 3 Ml Vial) 0 unit SUBCUT QIDACHS [facility]; Protocol Last Admin: 02/05/25 18:18 Dose: 2 unit Documented By: FRANCES Comments: trays late Magnesium Hydroxide (Milk Of Magnesia 30 Ml Oral.Susp) 30 ml PO DAILY PRN PRN Reason: Constipation Melatonin (Melatonin 3 Mg Tablet) 6 mg PO BEDTIME PRN PRN Reason: Insomnia Methylprednisolone Sodium Succinate (Methylprednisolone Sod Succ 40 Mg Vial) 40 mg IVPUSH Q8H [facility] Last Admin: 02/05/25 13:33 Dose: 40 mg Documented By: FRANCES Sodium Chloride (0.9 % Sodium Chloride Flush 3 Ml Syringe) 3 ml IVFLUSH QSHIFT [facility] Last Admin: 02/05/25 15:37 Dose: 3 ml Documented By: FRANCES Labs 02/05/25 04:10 02/05/25 04:10 Labs: Laboratory Results - last 24 hr 02/04/25 02/04/25 02/05/25 21:07 21:58 04:10 MCV 82.8 MCH 24.5 L MCHC 29.7 L RDW 16.2 H Plt Count 287 MPV 10.0 Immature Gran % (Auto) 0.7 H Neut % (Auto) 90.9 H Lymph % (Auto) 4.6 L [place] % (Auto) 3.6 Eos % (Auto) 0.0 Baso % (Auto) 0.2 Lymph # (Auto) 0.6 L [place] # (Auto) 0.4 Eos # (Auto) 0.0 Baso # (Auto) 0.0 Abs Immat Gran (auto) 0.09 H Absolute Neuts (auto) 11.2 H Absolute Nucleated RBC 0.000 Nucleated RBC % (auto) 0.0 Smear Tech's Comments VERIFIED Anion Gap 12 Estim Creat Clear Calc 99.6 Estimated GFR > 60 POC Glucose 202 H Random Glucose 181 H Lactic Acid F/U @ 4Hr 4.7 H* Calcium 9.8 D Total Bilirubin 0.2 AST 22 ALT 18 Alkaline Phosphatase 86 Total Protein 6.3 L Albumin 3.9 02/05/25 02/05/25 02/05/25 07:07 13:09 18:06 MCV MCH MCHC RDW Plt Count MPV Immature Gran % (Auto) Neut % (Auto) Lymph % (Auto) [place] % (Auto) Eos % (Auto) Baso % (Auto) Lymph # (Auto) [place] # (Auto) Eos # (Auto) Baso # (Auto) Abs Immat Gran (auto) Absolute Neuts (auto) Absolute Nucleated RBC Nucleated RBC % (auto) Smear Tech's Comments Anion Gap Estim Creat Clear Calc Estimated GFR POC Glucose 177 H 155 H 174 H Random Glucose Lactic Acid F/U @ 4Hr Calcium Total Bilirubin AST ALT Alkaline Phosphatase Total Protein Albumin Microbiology Microbiology Results: Microbiology 02/04/25 16:35 Blood Culture - Preliminary Blood - Venous No growth after 24 hours. 02/04/25 16:35 Blood Culture - Preliminary Blood - Venous No growth after 24 hours. Assessment and Plan (1) Pneumonia: Status: Acute (2) COPD (chronic obstructive pulmonary disease): Status: Acute Plan 64-year-old female with a past medical history of HTN, HLD, DM, COPD on home O2, GERD, gastroparesis, renal cell carcinoma, tobacco dependence presented to the hospital with a chief complaint of cough and shortness of breath. Pt was admitted to the hospital for acute hypoxic respiratory failure in the setting of acute COPD exacerbation with underlying pneumonia with sepsis. Acute hypoxic respiratory failure in the setting of acute COPD exacerbation with underlying pneumonia with sepsis Continue nebulizations standing and p.r.n., IV Solu-Medrol, antitussives Supplemental oxygen p.r.n. at goal oxygen saturation up to 93% Continue ceftriaxone and azithromycin, day 2 Follow-up cultures Acute lactic acidosis Secondary to hypoxia, not sepsis Diabetes: Insulin sliding scale, diabetic diet History and/HLD: Continue aspirin, statin HTN BP has been soft, hold losartan and amlodipine Resume as indicated Nicotine dependence Continues to smoke a pack a day Nicotine cessation counseled DVT prophylaxis: Lovenox Code status: Full code Pt requires continued hospitalization for treatment with IV steroids, IV antibiotics, supplemental oxygen, and bronchodilator therapy. Quality Stroke Does the patient have a stroke diagnosis?: No VTE Prior VTE?: No VTE Risk Level:: Medical - moderate - high VTE Device Contraindication: Treatment Not Indicated VTE Drug Contraindication: N/A - Med Ordered
[2025-02-05] MEDS: Albuterol/Iprat 2.5/0.5MG 3 ML AMPUL.NEB INHALE (19:47)
--- NOTE | 2025-02-05 20:42 | PC.NURSE ---
min assist to commode
[2025-02-05] MEDS: Baclofen 10 MG TABLET PO (20:43)
[2025-02-05] MEDS: bisacodyL 5 MG TABLET.DR 10 MG PO (20:43)
[2025-02-05] MEDS: Gabapentin 400 MG CAPSULE 800 MG PO (20:44)
[2025-02-05] MEDS: Metoclopramide HCl 10 MG TABLET PO (20:44)
[2025-02-05] MEDS: Famotidine 20 MG TABLET 40 MG PO (20:44)
[2025-02-05] MEDS: Magnesium Oxide 400 MG TABLET PO (20:44)
[2025-02-05] MEDS: Enoxaparin Sodium 40 MG/0.4 ML SYRINGE SUBCUT (20:45)
[2025-02-05] MEDS: Aspirin Enteric Coated 81 MG TABLET.DR PO (20:45)
[2025-02-05 21:00] LABS: Glucose, Whole Blood 182 mg/dL (60-115)
[2025-02-05] MEDS: Nicotine 21 MG PATCH.TD24 TRANSDERMA (21:26)
[2025-02-06] VITALS (7 sets, daily range): BP systolic 115–170; BP diastolic 51–69; PULSE 68–88; RESP 16–20; TEMP 36.4–37.2; O2SAT 91–98; BMI 26.1
[2025-02-06] MEDS: Omeprazole 20 MG CAPSULE.DR PO (05:25)
[2025-02-06] MEDS: methylPREDNISolone Sod Succ 40 MG VIAL IVPUSH ×3 (05:25→20:59)
[2025-02-06 07:22] LABS: Glucose, Whole Blood 144 mg/dL (60-115)
[2025-02-06] MEDS: Gabapentin 300 MG CAPSULE PO ×3 (07:54→20:31)
[2025-02-06] MEDS: Baclofen 10 MG TABLET PO ×3 (07:54→20:30)
[2025-02-06] MEDS: Cholecalciferol (Vitamin D3) 25 MCG TABLET 50 MCG PO (07:54)
[2025-02-06] MEDS: SITagliptin Phosphate 100 MG TABLET PO (07:54)
[2025-02-06] MEDS: Metoclopramide HCl 10 MG TABLET PO ×4 (07:54→20:31)
[2025-02-06] MEDS: Gabapentin 400 MG CAPSULE 800 MG PO ×3 (07:54→20:31)
[2025-02-06] MEDS: Simethicone 80 MG TAB.CHEW 160 MG PO ×4 (07:55→20:31)
[2025-02-06] MEDS: 0.9 % Sodium Chloride Flush 3 ML SYRINGE IVFLUSH ×3 (07:55→21:07)
--- NOTE | 2025-02-06 08:05 | HO.PM.IMPN ---
Subjective Subjective Date of Service: 02/06/25 Interval History: copd Review of Systems sob seems somewhat improving taper oxygen no fever Review of Systems: Yes all other systems are reviewed and are negative Physical Exam Vital Signs: Vital Signs: Last Vital Signs Temp 97.7 F 02/06/25 07:15 Pulse 76 02/06/25 07:15 Resp 18 02/06/25 07:15 BP 125/58 L 02/06/25 07:15 Pulse Ox 96 02/06/25 07:15 O2 Del Method Nasal Cannula 02/06/25 07:15 O2 Flow Rate 2 02/06/25 07:15 Oxygen Flow Rate 2 02/04/25 15:11 BMI result Body Mass Index 26.1 General: AOx3, looks uncomfortable. In no acute distress Resp: Significant expiratory wheezing and rhonchi bilaterally CVS: S1, S2, RRR GI: +BS, NT, no distention Skin: Warm, dry Neuro: moves all ext Extremities: No edema Psych: Appropriate affect Objective Data Active Medications Acetaminophen (Acetaminophen 325 Mg Tablet) 650 mg PO Q6H PRN PRN Reason: Pain, Mild 1-3,fever,headache Albuterol/Ipratropium (Albuterol/Iprat 2.5/0.5mg 3 Ml Ampul.Neb) 3 ml INHALE Q4H PRN PRN Reason: Shortness of Breath/Wheezing Albuterol/Ipratropium (Albuterol/Iprat 2.5/0.5mg 3 Ml Ampul.Neb) 3 ml INHALE RQ4H WHILE AWAKE [facility] Last Admin: 02/06/25 07:33 Dose: Not Given Documented By: MIGUELITO Non-Admin Reason: Patient Refused Aspirin (Aspirin Enteric Coated 81 Mg Tablet.) 81 mg PO BEDTIME [facility] Last Admin: 02/05/25 20:45 Dose: 81 mg Documented By: COSMO Atorvastatin Calcium (Atorvastatin Calcium 20 Mg Tablet) 20 mg PO DAILY [facility] Last Admin: 02/06/25 07:55 Dose: Not Given Documented By: MANUEL Non-Admin Reason: Patient Refused Azithromycin (Azithromycin 500 Mg Tablet) 500 mg PO Q24H [facility] Last Admin: 02/05/25 18:18 Dose: 500 mg Documented By: FRANCES Baclofen (Baclofen 10 Mg Tablet) 10 mg PO TID [facility] Last Admin: 02/06/25 07:54 Dose: 10 mg Documented By: MANUEL Benzonatate (Benzonatate 100 Mg Capsule) 100 mg PO TID PRN PRN Reason: Cough Bisacodyl (Bisacodyl 5 Mg Tablet.Dr) 10 mg PO BEDTIME [facility] Last Admin: 02/05/25 20:43 Dose: 10 mg Documented By: COSMO Calcium Carbonate (Calcium Carbonate 750 Mg Tab.Chew) 750 mg PO Q4H PRN PRN Reason: Heartburn Ceftriaxone Sodium (Ceftriaxone Sodium 1 Gm Vial) 1 gm IVPUSH Q24H [facility] Last Admin: 02/05/25 17:44 Dose: 1 gm Documented By: FRANCES Dextrose (Dextrose 50 % 25 Gm/50 Ml Syringe) 25 gm IVPUSH Q15M PRN; Protocol PRN Reason: per Hypoglycemia Standing Ord. Enoxaparin Sodium (Enoxaparin Sodium 40 Mg/0.4 Ml Syringe) 40 mg SUBCUT Q24H [facility] Last Admin: 02/05/25 20:45 Dose: 40 mg Documented By: COSMO Famotidine (Famotidine 20 Mg Tablet) 40 mg PO BEDTIME [facility] Last Admin: 02/05/25 20:44 Dose: 40 mg Documented By: COSMO Fluticasone/Umeclidinium/Vilanterol (Fluticasone/Umeclidinium/Vilanterol 100/62.5/25 Blst.W.Dev) 1 puff INHALE RDAILY [facility] Last Admin: 02/06/25 07:33 Dose: Not Given Documented By: MIGUELITO Non-Admin Reason: Patient Refused Gabapentin (Gabapentin 300 Mg Capsule) 300 mg PO TID [facility] Last Admin: 02/06/25 07:54 Dose: 300 mg Documented By: MANUEL Gabapentin (Gabapentin 400 Mg Capsule) 800 mg PO TID [facility] Last Admin: 02/06/25 07:54 Dose: 800 mg Documented By: MANUEL Glucose (Glucose Gel 15 Gm Gel..Gram.) 15 gm PO Q15M PRN; Protocol PRN Reason: per Hypoglycemia Standing Ord. Insulin Human Lispro (Insulin Lispro 100 Unit/Ml 3 Ml Vial) 0 unit SUBCUT QIDACHS [facility]; Protocol Last Admin: 02/06/25 07:26 Dose: Not Given Documented By: MANUEL Non-Admin Reason: No Insulin Coverage Magnesium Hydroxide (Milk Of Magnesia 30 Ml Oral.Susp) 30 ml PO DAILY PRN PRN Reason: Constipation Magnesium Oxide (Magnesium Oxide 400 Mg Tablet) 400 mg PO BEDTIME [facility] Last Admin: 02/05/25 20:44 Dose: 400 mg Documented By: COSMO Melatonin (Melatonin 3 Mg Tablet) 6 mg PO BEDTIME PRN PRN Reason: Insomnia Methylprednisolone Sodium Succinate (Methylprednisolone Sod Succ 40 Mg Vial) 40 mg IVPUSH Q8H [facility] Last Admin: 02/06/25 05:25 Dose: 40 mg Documented By: MARY Metoclopramide HCl (Metoclopramide Hcl 10 Mg Tablet) 10 mg PO QIDACHS [facility] Last Admin: 02/06/25 07:54 Dose: 10 mg Documented By: MANUEL Nicotine (Nicotine 21 Mg Patch.Td24) 21 mg TRANSDERMA DAILY [facility] Last Admin: 02/05/25 21:26 Dose: 21 mg Documented By: COSMO Omeprazole (Omeprazole 20 Mg Capsule.Dr) 20 mg PO DAILY@0630 [facility] Last Admin: 02/06/25 05:25 Dose: 20 mg Documented By: MARY Simethicone (Simethicone 80 Mg Tab.Chew) 160 mg PO QID [facility] Last Admin: 02/06/25 07:55 Dose: 160 mg Documented By: MANUEL Sitagliptin Phosphate (Sitagliptin Phosphate 100 Mg Tablet) 100 mg PO DAILY [facility] Last Admin: 02/06/25 07:54 Dose: 100 mg Documented By: MANUEL Sodium Chloride (0.9 % Sodium Chloride Flush 3 Ml Syringe) 3 ml IVFLUSH QSHIFT [facility] Last Admin: 02/06/25 07:55 Dose: 3 ml Documented By: MANUEL Vitamin D (Cholecalciferol (Vitamin D3) 25 Mcg Tablet) 50 mcg PO DAILY [facility] Last Admin: 02/06/25 07:54 Dose: 50 mcg Documented By: MANUEL Labs 02/05/25 04:10 02/05/25 04:10 Labs: Laboratory Results - last 24 hr 02/05/25 02/05/25 02/05/25 13:09 18:06 20:56 POC Glucose 155 H 174 H 182 H 02/06/25 07:18 POC Glucose 144 H Microbiology Microbiology Results: Microbiology 02/04/25 16:35 Blood Culture - Preliminary Blood - Venous No growth after 24 hours. 02/04/25 16:35 Blood Culture - Preliminary Blood - Venous No growth after 24 hours. Assessment and Plan (1) COPD (chronic obstructive pulmonary disease): Status: Acute Assessment and Plan: 64-year-old female with a past medical history of HTN, HLD, DM, COPD on home O2, GERD, gastroparesis, renal cell carcinoma, tobacco dependence presented to the hospital with a chief complaint of cough and shortness of breath. Pt was admitted to the hospital for acute hypoxic respiratory failure in the setting of acute COPD exacerbation with underlying pneumonia with sepsis. Acute hypoxic respiratory failure in the setting of acute COPD exacerbation with underlying pneumonia with sepsis Continue nebulizations standing and p.r.n., IV Solu-Medrol, antitussives Supplemental oxygen p.r.n. at goal oxygen saturation up to 93% Continue ceftriaxone and azithromycin, day 2 Follow-up cultures Acute lactic acidosis Secondary to hypoxia, not sepsis Diabetes: Insulin sliding scale, diabetic diet History and/HLD: Continue aspirin, statin HTN BP has been soft, hold losartan and amlodipine Resume as indicated Nicotine dependence Continues to smoke a pack a day Nicotine cessation counseled DVT prophylaxis: Lovenox Code status: Full code Pt requires continued hospitalization for treatment with IV steroids, IV antibiotics, supplemental oxygen, and bronchodilator therapy. Quality Stroke Does the patient have a stroke diagnosis?: No VTE Prior VTE?: No VTE Risk Level:: Medical - moderate - high VTE Device Contraindication: Treatment Not Indicated VTE Drug Contraindication: N/A - Med Ordered
--- NOTE | 2025-02-06 09:26 | MHC.CM.PN ---
CM met with Patient at bedside. Patient lives in a mobile home with her Boyfriend/HCP/Wiley and she receives her home O2 from [facility]. Home/resume said services is the goal and CM has initiated and will follow for dc planning. PCP is Dr. Magalie Nicolas and [facility] will transport to home.
[2025-02-06 11:44] LABS: Glucose, Whole Blood 298 mg/dL (60-115)
[2025-02-06] MEDS: Insulin Lispro 100 UNIT/ML 3 ML VIAL SUBCUT ×3 (11:58→21:05)
[2025-02-06 15:40] LABS: Glucose, Whole Blood 169 mg/dL (60-115)
[2025-02-06] MEDS: cefTRIAXone sodium 1 GM VIAL IVPUSH (18:46)
[2025-02-06] MEDS: Azithromycin 500 MG TABLET PO (18:46)
[2025-02-06] MEDS: Albuterol/Iprat 2.5/0.5MG 3 ML AMPUL.NEB INHALE (19:47)
[2025-02-06] MEDS: Aspirin Enteric Coated 81 MG TABLET.DR PO (20:30)
[2025-02-06] MEDS: Magnesium Oxide 400 MG TABLET PO (20:30)
[2025-02-06] MEDS: Atorvastatin Calcium 20 MG TABLET PO (20:31)
[2025-02-06] MEDS: bisacodyL 5 MG TABLET.DR 10 MG PO (20:31)
[2025-02-06] MEDS: Enoxaparin Sodium 40 MG/0.4 ML SYRINGE SUBCUT (20:31)
[2025-02-06] MEDS: Famotidine 20 MG TABLET 40 MG PO (20:31)
[2025-02-06 20:42] LABS: Glucose, Whole Blood 262 mg/dL (60-115)
[2025-02-07 03:18] VITALS: BP 165/79; PULSE 81; RESP 18; TEMP 36.6; O2SAT 97
--- NOTE | 2025-02-07 03:47 | PC.NURSE ---
pt hypertensive overnight, 160s-170s systolic, losartan and amlodipine are on hold; provider made aware, no new orders at this time
[2025-02-07] MEDS: Omeprazole 20 MG CAPSULE.DR PO (05:53)
[2025-02-07] MEDS: methylPREDNISolone Sod Succ 40 MG VIAL IVPUSH (05:53)
[2025-02-07] MEDS: Albuterol/Iprat 2.5/0.5MG 3 ML AMPUL.NEB INHALE ×2 (07:06→11:11)
[2025-02-07 07:07] VITALS: PULSE 81; RESP 18; O2SAT 94
[2025-02-07] MEDS: Fluticasone/Umeclidinium/Vilanterol 100/62.5/25 BLST.W.DEV 1 PUFF INHALE (07:07)
[2025-02-07 07:16] VITALS: BP 166/74; PULSE 68; RESP 18; TEMP 37.2; O2SAT 94
[2025-02-07 07:24] LABS: Glucose, Whole Blood 149 mg/dL (60-115)
[2025-02-07] MEDS: Metoclopramide HCl 10 MG TABLET PO ×2 (08:43→13:20)
[2025-02-07] MEDS: Baclofen 10 MG TABLET PO (08:43)
[2025-02-07] MEDS: Cholecalciferol (Vitamin D3) 25 MCG TABLET 50 MCG PO (08:43)
[2025-02-07] MEDS: Nicotine 21 MG PATCH.TD24 TRANSDERMA (08:43)
[2025-02-07] MEDS: SITagliptin Phosphate 100 MG TABLET PO (08:43)
[2025-02-07] MEDS: Gabapentin 300 MG CAPSULE PO (08:43)
[2025-02-07] MEDS: Gabapentin 400 MG CAPSULE 800 MG PO (08:43)
[2025-02-07] MEDS: Simethicone 80 MG TAB.CHEW 160 MG PO ×2 (08:43→13:20)
[2025-02-07] MEDS: 0.9 % Sodium Chloride Flush 3 ML SYRINGE IVFLUSH (08:46)
[2025-02-07 11:12] VITALS: PULSE 68; RESP 18; O2SAT 94
[2025-02-07 11:15] VITALS: BP 160/74; PULSE 72; RESP 20; TEMP 37.2; O2SAT 94
--- NOTE | 2025-02-07 11:36 | MHC.CM.PN ---
Patient has been medically cleared for dc to home today, self care.
--- NOTE | 2025-02-07 11:46 | P.DS_ITS ---
DS: Providers Provider Date of Service: 02/07/25 Date of admission: 02/04/25 19:19 Date of discharge: 02/07/25 Primary care physician: Magalie Nicolas MD Attending physician on discharge: Grisel Erickson Discharging clinician: Grisel Erickson DS: Diagnosis Discharge Diagnosis (1) COPD (chronic obstructive pulmonary disease): Status: Acute DS: Summary Hospital Course Hospital Course: hpi: 64-year-old female with a past medical history of HTN, HLD, DM, COPD on home O2, GERD, gastroparesis, renal cell carcinoma, tobacco dependence presented to the hospital with a chief complaint of cough and shortness of breath. Patient reported over the past few days he has been having cough and shortness of breath. Shortness of breaths has been gradually worsening. Denies any chest pain or palpitations. Denies any sick contacts. Denies any recent travel. Review of all other systems is negative except mentioned above ER course: Per ER team, patient noted to be short of breath, diminished lung sounds; CT chest showed no evidence of PE but noted to have findings concerning for pneumonia. Given antibiotics, nebulizations and steroids. Lactic acid slightly elevated. hospital course: Patient came to the hospital because of cough and shortness of breaths: Admitted to the hospital because of acute hypoxemic respiratory failure secondary to COPD exacerbation/pneumonia/sepsis: Patient was started on IV antibiotics, IV steroids and nebs , CTA chest showed right-sided pneumonia, blood cultures sent. With the above supportive care patient seems to be improved significantly, curr ently asymptomatic-no shortness of breath or sats are 94% on 2 L oxygen. Patient seems to be at her baseline currently. Blood culture negative at 48 hours. Patient will be going home to Complete prednisone taper, Ceftin 500 mg p.o. b.i.d. for 7 days, azithromycin 500 mg daily for 4 more days. Please repeat chest imaging in 3-4 weeks to see resolution of pneumonia.Hold maintenance azithromycin until completes azithromycin as prescribed above. htn: Hold losartan, continue amlodipine, monitor blood pressure closely twice daily-if blood pressure persistently above 140/90-then consider adding back losartan. Strongly advised to abstain from smoking, nicotine patch added as above. Plan: prednisone taper, Ceftin 500 mg p.o. b.i.d. for 7 days, azithromycin 500 mg daily for 4 more days. Repeat chest imaging in 3-4 weeks to see resolution pneumonia. Hold losartan, continue amlodipine, monitor blood pressure closely twice daily- if blood pressure persistently above 140/90-then consider adding back losartan. Strongly advised to abstain from smoking, nicotine patch added. Follow-up with PCP outpatient. Above management discussed with the patient detail length she understand and in agreement with the above plan, time spent 40 minute, all question answered. Staff was present during conversation. Time Attestation Total time managing care of this patient today: 40 mintues. Discharge Coordination Time (in mins): 40 minute Quality: Safe Use of Opioids Does Pt have an Active Cancer Diagnosis on the Problem List?: No Quality: Stroke Does the patient have a stroke diagnosis?: No Physical Exam Vital Signs: Vital Signs: Last Vital Signs Temp 98.9 F 02/07/25 11:15 Pulse 72 02/07/25 11:15 Resp 20 02/07/25 11:15 BP 160/74 H 02/07/25 11:15 Pulse Ox 94 02/07/25 11:15 O2 Del Method Nasal Cannula 02/07/25 11:15 O2 Flow Rate 2 02/07/25 11:15 Oxygen Flow Rate 2 02/04/25 15:11 BMI result Body Mass Index 26.1 General: AOx3,In no acute distress Resp: Significant expiratory wheezing and rhonchi bilaterally CVS: S1, S2, RRR GI: +BS, NT, no distention Skin: Warm, dry Neuro: moves all ext Extremities: No edema Psych: Appropriate affect DS: Data Data Completed and Pending Labs on day of discharge: Laboratory Results - last 24 hr 02/06/25 02/06/25 02/07/25 15:36 20:34 07:21 POC Glucose 169 H 262 H 149 H Preliminary micro results at discharge 02/04/25 16:35 Blood Culture - Preliminary Blood - Venous No growth after 48 hours. 02/04/25 16:35 Blood Culture - Preliminary Blood - Venous No growth after 48 hours. Discharge Plan Discharge Anticipated Discharge Date/Time: 02/07/25 11:26 Patient Disposition: Home, Self-Care Discharge Diagnosis: copd excerebation,pneumonia ,sepsis Referrals: Magalie Nicolas MD [Primary Care Provider, Internal Medicine] - 1 Week Discharge Medications: New cefuroxime axetil 500 mg Tablet 500 mg PO Q12H Qty: 14 0RF nicotine 21 mg/24 hr Patch 24 Hour 21 mg transdermal DAILY Qty: 7 0RF prednisone 10 mg tablet See Taper PO DIRECTED Qty: 30 0RF Taper: Prednisone 40 mg daily for 3 Days and 0 Hour 30 mg daily for 3 Days and 0 Hour 20 mg daily for 3 Days and 0 Hour 10 mg daily for 3 Days and 0 Hour Rx Instructions: see taper instructions azithromycin 500 mg tablet 500 mg PO DAILY 4 Days Qty: 4 0RF Rx Instructions: start on day 2 of therapy Continued (DME) lancets [FreeStyle Lancets] 28 gauge misc See Rx Instructions .Route Qty: 100 5RF Rx Instructions: As directed twice a day AC (DME) FreeStyle Lite Strips Strip See Rx Instructions .Route Qty: 100 0RF Rx Instructions: check fasting blood sugar twice a day before meals (DME) FreeStyle Cristian 2 Sensor Kit See Rx Instructions .Route Qty: 6 3RF Rx Instructions: Test blood sugar 4 times per day (DME) FreeStyle Cristian 2 [place] Misc See Rx Instructions .Route Qty: 1 0RF Rx Instructions: test blood sugar 4 times per day rosuvastatin 5 mg tablet 5 mg PO DAILY Qty: 90 1RF amlodipine 5 mg tablet 5 mg PO DAILY Qty: 90 1RF cholecalciferol (vitamin D3) 50 mcg (2,000 unit) capsule 50 mcg PO DAILY Qty: 90 1RF baclofen 10 mg tablet 10 mg PO TID 30 Days Qty: 90 6RF gabapentin 800 mg tablet 800 mg PO TID 30 Days Qty: 90 6RF metformin 1,000 mg tablet 1,000 mg PO BID Qty: 180 3RF metoclopramide HCl [Reglan] 10 mg tablet 10 mg PO QIDACHS Qty: 180 6RF magnesium oxide 400 mg magnesium capsule 400 mg PO BEDTIME Qty: 30 0RF Januvia 100 mg tablet 100 mg PO DAILY famotidine 40 mg tablet 40 mg PO BEDTIME Trelegy Ellipta 100-62.5-25 mcg blister with device 1 ea INHALATION DAILY ipratropium-albuterol 0.5 mg-3 mg(2.5 mg base)/3 mL solution for nebulization 3 ml inhalation Q6H PRN (Reason: wheezing) aspirin [Adult Low Dose Aspirin] 81 mg tablet,delayed release (DR/EC) 81 mg PO BEDTIME (DME) blood-glucose meter [FreeStyle Lite Meter] Kit See Rx Instructions .Route Qty: 1 0RF Rx Instructions: As directed twice a day before meals simethicone [Anti-Gas Ultra Strength] 180 mg capsule 180 mg PO QID Qty: 120 6RF psyllium husk [Fiber Laxative (psyllium husk)] 0.52 gram capsule 1.04 g PO BID Qty: 360 3RF esomeprazole magnesium 40 mg capsule,delayed release(DR/EC) 40 mg PO DAILY Qty: 30 6RF bisacodyl [Dulcolax (bisacodyl)] 5 mg tablet,delayed release (DR/EC) 10 mg PO BEDTIME 2 Days Qty: 4 0RF Held losartan 50 mg tablet 50 mg PO DAILY Qty: 90 1RF Hold Instructions: Resume on 02/12/25. azithromycin 500 mg tablet 500 mg PO TUTHSA Hold Instructions: Resume on 02/11/25. Discharge Orders: Discharge Order (Routine); Ordered 02/07/25 Ordered By: Grisel Erickson Diet: Advance to usual diet Activity on Discharge: As tolerated Stand Alone Forms: Patient Portal Discharge page Print Language: Kinyarwanda Care Plan Goals: As below. Health Concerns: As below Plan of Treatment: Complete prednisone taper, Ceftin 500 mg p.o. b.i.d. for 7 days, azithromycin 500 mg daily for 4 more days. Please repeat chest imaging in 3-4 weeks to see resolution of pneumonia.Hold maintenance azithromycin until completes azithromycin as prescribed above. htn: Hold losartan, continue amlodipine, monitor blood pressure closely twice daily-if blood pressure persistently above 140/90-then consider adding back losartan. Strongly advised to abstain from smoking, nicotine patch added as above. Follow-up with PCP outpatient. Assessment: As above. Patient Instructions: Cefuroxime (By mouth), Prednisone (By mouth), Pneumonia (DC)
[2025-02-07 12:42] LABS: Glucose, Whole Blood 318 mg/dL (60-115)
[2025-02-07] MEDS: Insulin Lispro 100 UNIT/ML 3 ML VIAL SUBCUT (13:20)
[2025-02-07] MEDS: cefuroxime axetiL 500 MG TABLET PO (13:20)
[2025-02-07] MEDS: Azithromycin 500 MG TABLET PO (13:20)
[2025-02-07 13:22] VITALS: BP 166/73
[2025-02-07] MEDS: amLODIPine Besylate 5 MG TABLET PO (13:22)
== END 2025-02-07 14:54 | disposition home or self-care (01) | DRG 720 ==
LOC: HO.ED 20:06 → HO.EDOVER 20:15 → HO.IMC 02-05 19:16
PROVIDERS: Physician Assistant; Student in an Organized Health Care Education/Training Program; Admitting Provider Hospitalist; Emergency Provider Emergency Medicine Emergency Medical Services; PCP Internal Medicine; Visit Provider Internal Medicine
DX: A41.9 Sepsis, unspecified organism (principal); J96.01 Acute respiratory failure with hypoxia; E87.21 Acute metabolic acidosis; J18.9 Pneumonia, unspecified organism; J44.0 Chronic obstructive pulmonary disease with (acute) lower respiratory infection; J44.1 Chronic obstructive pulmonary disease with (acute) exacerbation; I10 Essential (primary) hypertension; F17.210 Nicotine dependence, cigarettes, uncomplicated; Z71.6 Tobacco abuse counseling; Z20.822 Contact with and (suspected) exposure to COVID-19; Z99.81 Dependence on supplemental oxygen; Z79.82 Long term (current) use of aspirin; Z79.84 Long term (current) use of oral hypoglycemic drugs; Z79.899 Other long term (current) drug therapy
CPT/HCPCS: 0241U; 36415; 71045; 71275; 80053; 82947; 83605; 83880; 84484; 85025; 87040; 93005; 94640; 99285; J0456; J0696; J1650; J2919; Q9967

== ENCOUNTER → 2025-02-04 14:59 | Outpatient (BNV) | payer OTHER, SELFPAY | PROVIDERS: Emergency Provider Emergency Medicine Emergency Medical Services; PCP Internal Medicine; Visit Provider Radiology Diagnostic Radiology | DX: R91.8 Other nonspecific abnormal finding of lung field (principal); J98.09 Other diseases of bronchus, not elsewhere classified | CPT/HCPCS: 71045; 71275 ==

== ENCOUNTER → 2025-02-04 14:59 | Outpatient (BNV) | payer OTHER, SELFPAY | PROVIDERS: Admitting Provider Hospitalist; Emergency Provider Emergency Medicine Emergency Medical Services; PCP Internal Medicine; Visit Provider Internal Medicine | DX: R00.0 Tachycardia, unspecified (principal) | CPT/HCPCS: 93010 ==

== ENCOUNTER → 2025-02-04 19:19 | Outpatient (BNV) | payer OTHER, SELFPAY | PROVIDERS: Admitting Provider Hospitalist; Emergency Provider Emergency Medicine Emergency Medical Services; PCP Internal Medicine; Visit Provider Hospitalist | DX: J44.9 Chronic obstructive pulmonary disease, unspecified (principal) | CPT/HCPCS: 99223; 99231; 99232; 99239 ==

== ENCOUNTER 2025-04-01 13:00 | Inpatient (IN) | payer OTHER, SELFPAY ==
[2025-04-01] VITALS (12 sets, daily range): BP systolic 123–150; BP diastolic 40–65; PULSE 90–109; RESP 22–30; TEMP 36.8; O2SAT 84–95; BMI 27.3
--- NOTE | ~2025-04-01 | CT_ITS ---
CLINICAL HISTORY: diffuse abd pain, no BM CT ABDOMEN AND PELVIS WITH CONTRAST Comparison: CT/GA/SR - CT ABDOMEN PELVIS WITH IV CONTRAST - 10/26/24 15:[address]/SR - CT GUIDED RF ABLATION RENAL - 09/11/24 15:24 EST Findings: There is motion artifact. Please see the separate report for the CT chest. An irregular complex exophytic lesion in the right kidney is again identified currently measuring 2.6 x 3.0 cm on axial image 284, series 7 compared with 2.9 x 3.4 cm on prior study. No hydronephrosis or significant perinephric edema. No urolithiasis. No acute abnormalities in the remaining solid organs. No large calcified gallstone. No AAA. No bowel obstruction, pneumoperitoneum, or pneumatosis. Large amount of fluid and food debris in the stomach could be from a recent meal or gastroparesis. No ascites or organized fluid collection. No significant mesenteric or paracolic edema. Moderate amount of stool throughout the colon. The appendix is identified. No acute appendicitis. Small uterine calcifications are likely related to a fibroid. Urinary bladder unremarkable. The bones are intact. IMPRESSION: 1. Motion affected study. 2. No obstructive or acute inflammatory changes in the gastrointestinal and genitourinary tracts. 3. Moderate colonic stool burden. Nonspecific prominent gastric distention. 4. Known right renal tumor with postablative changes is stable to slightly smaller in size compared to prior study. This document has been electronically signed by: Tatiana Ryder DO on 04/01/2025 17:49:18
--- NOTE | ~2025-04-01 | XR_ITS ---
CLINICAL HISTORY: shortness of breath 1 view chest x-ray Comparison: CR - XR CHEST 1V - 02/04/25 15:19 EDT Findings: No consolidation, pleural effusion or pneumothorax. Minimal atelectasis and/or scarring in the right lower lobe. Normal size heart. Prominent aortic calcifications. No acute fracture. Postsurgical changes in the cervical spine with hardware present. Heterogeneous calcifications in the bilateral carotid arteries. IMPRESSION: Mild atelectasis and/or scarring in the right lower lobe, otherwise no acute cardiopulmonary process. This document has been electronically signed by: Tatiana Ryder DO on 04/01/2025 15:09:55
--- NOTE | ~2025-04-01 | CT_ITS ---
CLINICAL HISTORY: acute memory and recall issues CT head without contrast Comparison: None provided Findings: No intracranial mass, midline shift, hydrocephalus, or acute hemorrhage. Mild chronic ischemic white matter disease without volume loss. No acute process in sinuses or mastoids. No acute bony abnormality. Impression: No acute intracranial process This document has been electronically signed by: Oswald Mcghee MD on 04/01/2025 23:18:03
--- NOTE | ~2025-04-01 | CT_ITS ---
CLINICAL HISTORY: sob, hypoxia CT CHEST WITH CONTRAST Comparison: CT/SR - CT ANGIO CHEST PE PROTOCOL - 02/04/25 17:00 EDT Findings: Heart size is normal with trace pericardial effusion. Prominent coronary artery and aortic calcifications. No thoracic aortic aneurysm or dissection. Visualized thyroid gland appears unremarkable. Stable multiple nonenlarged nonspecific mediastinal lymph nodes. No lymphadenopathy. Interval near-complete resolution of irregular airspace opacity in the right lower lobe. Right lower lobe and lingular atelectasis and/or scarring. Stable 4 mm noncalcified nodule in the right middle lobe. Stable multiple 7 mm or less in size noncalcified right lower lobe nodules. No pleural effusion or pneumothorax. Please see the separate report for the CT abdomen and pelvis. The bones are intact. IMPRESSION: 1. Near-complete resolution of prior right lower lobe pneumonia. No new or progressive acute airspace disease. 2. Stable multiple nonspecific right middle and lower lobe pulmonary nodules. ACR Fleischner Society recommendations (MacMahon, et al. Radiology 2017; 284(1): 228-43) suggest the following: For patients with low risk of lung cancer, initial chest CT at 3-6 months. If stable, no further follow-up or an optional chest CT at 18-24 months if there is high index of suspicion. For patients with high risk of lung cancer, initial chest CT at 3-6 months. If stable, another chest CT at 18-24 months. This document has been electronically signed by: Tatiana Ryder DO on 04/01/2025 17:20:40
--- NOTE | 2025-04-01 13:10 | ECG_ITS ---
Test Reason : sob Blood Pressure : */* mmHG Vent. Rate : 97 BPM Atrial Rate : 97 BPM P-R Int : 124 ms QRS Dur : 86 ms QT Int : 366 ms P-R-T Axes : 73 88 83 degrees QTcB Int : 464 ms Normal sinus rhythm Normal ECG When compared with ECG of 04-Feb-2025 15:02, No significant change was found Referred By: Ulises Azevedo Electronically Signed By: YOHAN PATEL MD
--- NOTE | 2025-04-01 13:10 | ED_ITS ---
HPI - General Adult General Chief complaint: Dyspnea Stated complaint: Diff Breathing O2 Level Low Time Seen by Provider: 04/01/25 13:20 Source: patient and RN notes reviewed Mode of arrival: ambulatory Limitations: no limitations History of Present Illness ED Provider: Yfn Hodge PA-C HPI narrative: 64 yo female with history of HTN, COPD on 2 L home O2, GERD, gastroparesis, gastritis, constipation, DM2 presents to the ED today due to 3 days of increasing SOB with cough and foamy brown/yellow sputum. Patient reports on her oximeter today she was getting readings in the high 70s. States SOB and cough is worse after smoking a cigarette, patient smokes 1 pack per day. Patient additionally complaining of crampy abdominal pain and constipation can not remember when her last bowel movement was, however states her bowel movements have been very small, is passing flatus. Denies recent illness, sick contacts, chest pain, hemoptysis, nausea, vomiting, dark/tarry stool, urinary symptoms. MD complaint: SOB W/ cough and increased sputum production Related Data Home Medications ?Medication ?Instructions ?Recorded ?Confirmed aspirin 81 mg tablet,delayed 81 mg PO BEDTIME 01/10/21 02/05/25 release (Adult Low Dose Aspirin) azithromycin 500 mg tablet 500 mg PO TUTHSA 02/05/25 0 02/05/25 Held on 02/07/25. Instructions: Resume on 02/11/25. fluticasone fur. 100 mcg-umeclid 1 ea inhalation DAILY 02/05/25 02/05/25 62.5 mcg-vilant 25 mcg inhalat.powder (Trelegy Ellipta) ipratropium 0.5 mg-albuterol 3 mg 3 ml inhalation Q6H PRN wheezing 02/05/25 02/05/25 (2.5 mg base)/3 mL nebulization soln Previous Rx's ?Medication ?Instructions ?Recorded blood-glucose meter (FreeStyle #1 ea 10/03/21 Lite Meter kit) lancets 28 gauge (FreeStyle #100 ea 01/06/22 Lancets) FreeStyle Lite Strips (blood sugar #100 ea 03/10/22 diagnostic) flash glucose scanning reader #1 ea 03/26/23 (FreeStyle Cristian 2 [place]) rosuvastatin 5 mg tablet 5 mg PO DAILY #90 tabs 07/11 baclofen 10 mg tablet 10 mg PO TID 30 days #90 tab s 08/24/24 gabapentin 800 mg tablet 800 mg PO TID 30 days #90 ta bs 10/05/24 metformin 1,000 mg tablet 1,000 mg PO BID #180 tabs losartan 50 mg tablet 50 mg PO DAILY #90 tabs 12/15 05/10 Held on 02/07/25. Instructions: Resume on 02/12/25. metoclopramide HCl 10 mg tablet 10 mg PO QIDACHS #180 tabs 01/18/25 (Reglan) bisacodyl 5 mg tablet,delayed 10 mg (2 x 5 mg) PO BEDT BIBIANA 2 days 02/01/25 release (Dulcolax (bisacodyl)) #4 tabs esomeprazole magnesium 40 mg 40 mg PO DAILY #30 caps 0 02/01/25 capsule,delayed release psyllium husk 0.52 gram capsule 1.04 g (2 x 0.52 gram) PO BID #360 02/01/25 (Fiber Laxative (psyllium husk)) caps simethicone 180 mg capsule 180 mg PO QID #120 caps (Anti-Gas Ultra Strength) azithromycin 500 mg tablet 500 mg PO DAILY 4 days #4 t abs 02/07/25 cefuroxime axetil 500 mg tablet 500 mg PO Q12H #14 tab s 02/07/25 nicotine 21 mg/24 hr daily 21 mg transdermal DAILY #7 ea 02/07/25 transdermal patch prednisone 10 mg tablet See Taper PO DIRECTED #30 tabs 02/07/25 cholecalciferol (vitamin D3) 50 50 mcg PO DAILY #90 ca ps 02/20/25 mcg (2,000 unit) capsule famotidine 40 mg tablet 40 mg PO BEDTIME #90 tabs amlodipine 5 mg tablet 5 mg PO DAILY #90 tabs 02/26 sitagliptin phosphate 100 mg 100 mg PO DAILY #90 tabs 02/26/25 tablet (Januvia) magnesium oxide 400 mg PO BEDTIME #30 caps 0 03/03/25 flash glucose sensor (FreeStyle #6 ea 03/28/25 Cristian 2 Sensor kit) Allergies Allergy/AdvReac Type Severity Reaction Status Date / Time amoxicillin (AMOXICILLIN) Allergy Intermediate RASH Verified 04/01/25 13:10 Review of Systems 2 Review of Systems: CONST: Negative for fever, body aches and chills. HENT: Negative for neck pain/stiffness, headache, congestion, sore throat, swelling. EYES: Negative for discharge/pain or vision changes. RESP: Negative for hemoptysis. POS SOB, cough, increaed sputum production CV: Negative chest pain, difficulty breathing, palpitations. ABD: Negative pain, nausea, vomiting. POS crampy abd pain : Negative increase frequency, dysuria, blood in urine or stool. POS constipation MUSC: Negative for muscle aches, edema. SKIN: Negative rash, lesions/sores. NEURO: Negative headache, dizziness, weakness. FOR[facility], LATER [facility] Past Medical History Attestation statement: The following information was validated with the patient. Source: old records reviewed and nursing notes reviewed Medical History Mixed dyslipidemia Heavy cigarette smoker History of pneumonia COPD mixed type Gastritis Diabetic gastroparesis Diastolic CHF with preserved left ventricular function, NYHA class 2 Chronic hypercapnic respiratory failure Type 2 diabetes mellitus with other diabetic kidney complication Essential hypertension Smoker unmotivated to quit Postlaminectomy syndrome of cervical region Seasonal allergic rhinitis GERD (gastroesophageal reflux disease) Surgical History H/O cervical discectomy History of esophagogastroduodenoscopy (EGD) Hx of colonoscopy Family History Family History Mother Diabetes Sister Diabetes Mental health disorder Brother Diabetes Father HTN (hypertension) Social History Social History Household Members: Significant Other Housing: Other Housing Other:: mobile home Are you a primary respiratory care faculty to a significant other at home: No 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) Alcohol intake: never Comment: Commode/ Hi Flow O2 Patient Tobacco Use Status: Current everyday Tobacco user Tobacco use type: Cigarette Cigarette Packs Per Day: 1 Cigarettes Per Day: 20.0 Years Smoked: 51 e-Cigarette/Vaping Use: Never Used Second Hand Smoke Exposure: Yes Advance Directives: Yes Advance Directives on File: Yes Advance Directives Date on File: 08/02/23 Do you have a plan to hurt others: No Plan service: No Current occupational status: unemployed and disabled Gender identity: Female Cognitive needs: No Hearing needs: No Vision needs: Yes Physical Exam ED Vital Signs: Vital Signs - 24 hr 04/01/25 13:10 04/01/25 13:12 04/01/25 13:13 Temperature 98.2 F Pulse Rate 99 Respiratory Rate 22 H Blood Pressure 150/65 H Pulse Oximetry 84 L 87 L 93 Oxygen Delivery Method Nasal Cannula Nasal Cannula Oxymask Oxygen Flow Rate 6 6 04/01/25 13:44 04/01/25 14:23 04/01/25 15:09 Temperature Pulse Rate 109 H 99 97 Respiratory Rate 22 H 24 H 25 H Blood Pressure 134/40 L 123/48 L Pulse Oximetry 95 87 L Oxygen Delivery Method Oxymask Oxymask Oxygen Flow Rate 3 4 04/01/25 15:25 04/01/25 17:25 Temperature Pulse Rate 92 102 H Respiratory Rate 24 H 30 H Blood Pressure 129/53 L Pulse Oximetry 88 L Oxygen Delivery Method High Flow Nasal Cannula Oxygen Flow Rate BMI result Body Mass Index 27.3 GENERAL APPEARANCE: ?AxOx4, chronically ill-appearing HEENT: ?NC, AT. MMM. EOMI, clear conjunctiva, oropharynx clear. NECK: ?Supple without lymphadenopathy.? No stiffness or restricted ROM. HEART:? Normal rate and regular rhythm, normal S1/S2, no m/r/g LUNGS: Diminished breath sounds of bilateral lung bases, with coarse lung sounds in the apices ABDOMEN: ?Soft, diffusely tender throughout abdomen, hypoactive bowel sounds BACK: No CVAT, no obvious deformity. EXTREMITIES: ?Without cyanosis, clubbing or edema. NEUROLOGICAL: ?Grossly nonfocal. Alert and oriented, moving all 4 extremities. Skin: ?Warm and dry without any rash. Course Course Course Narrative: Medical screening exam performed. Please refer to detailed history, exam, evaluation, and management by primary provider. Arrives, complaining of shortness a breath in the past several days, worsened today while smoking a cigarette. Has had associated cough with sputum production. No fever. Medications Administered Discontinued Medications Generic Name Dose Route Start Last Admin Trade Name Freq PRN Reason Stop Dose Admin Ceftriaxone Sodium 500 mg 04/01/25 15:07 04/01/25 16:32 Ceftriaxone Sodium 500 Mg Vial IVPUSH 04/01/25 15:08 500 mg ONCE ONE Administration Albuterol Sulfate 5 mg/ 0 mg 04/01/25 13:37 04/01/25 13:40 Albuterol/Ipratropium 3 ml INHALE 04/01/25 13:38 1 each ONCE ONE Administration Albuterol Sulfate 5 mg/ 0 mg 04/01/25 15:21 04/01/25 15:24 Albuterol/Ipratropium 3 ml INHALE 04/01/25 15:22 1 each ONCE ONE Administration Magnesium Sulfate 2 gm in 50 mls @ 150 mls/hr 04/01/25 14:49 04/01/25 17:13 Magnesium Sulfate/H2o IV 04/01/25 15:08 Infused ONCE ONE Infusion Azithromycin 500 mg/ Sodium 250 mls @ 125 mls/hr 04/01/25 15:07 04/01/25 16:36 Chloride IV 04/01/25 17:06 125 mls/hr ONCE ONE Administration Iohexol 100 ml 04/01/25 16:05 04/01/25 16:06 Iohexol 350 Mg/Ml 100 Ml Infus..Btl IV 04/01/25 16:06 85 ml ONCE ONE Administration Methylprednisolone Sodium Succinate 125 mg 04/01/25 14:49 04/01/25 15:07 Methylprednisolone Sod Succ 125 Mg/2 Ml Vial IVPUSH 04/01/25 14:50 125 mg ONCE ONE Administration Midazolam HCl 1 mg 04/01/25 17:07 04/01/25 17:22 Midazolam Hcl 2 Mg/2 Ml Vial IVPUSH 04/01/25 17:08 1 mg ONCE ONE Administration Nicotine 21 mg 04/01/25 13:11 04/01/25 14:42 Nicotine 21 Mg Patch.Td24 TRANSDERMA 04/01/25 13:12 21 mg ONCE ONE Administration Medical Decision Making Medical Decision Making MDM Narrative: 64 yo female with history of HTN, COPD on 2 L home O2, GERD, gastroparesis, gastritis, constipation, DM2 presents to the ED today due to 3 days of increasing SOB with cough and foamy brown/yellow sputum. Patient reports on her oximeter today she was getting readings in the high 70s. States SOB and cough is worse after smoking a cigarette, patient smokes 1 pack per day. Patient additionally complaining of crampy abdominal pain and constipation can not remember when her last bowel movement was, however states her bowel movements have been very small, is passing flatus. Denies recent illness, sick contacts On physical exam patient belly breathing, with course lung sounds of bilateral apices, diminished lung sounds of bilateral bases, without evidence of fluid overload. Abdomen diffusely tender, hypoactive bowel sounds. EKG with normal sinus rhythm, no ST-elevation/depression, T-wave abnormality initial troponin 3.8, 2nd troponin 3.9, patient without chest pain-less likely ACS Course 15:08- At 3:08 p.m. on 04/01/2025 I suspected infection and empirically treated for COPD exacerbation/potential pneumonia with 500 mg ceftriaxone, 500 mg azithromycin. Leukocytosis of 13, LA WNL. Does not meet criteria for fluid bolus. Patient given 5 mg Ventolin treatment without effect, patient O2 saturation between 84-87 on 4L with oxygen mask. I medicated patient with 2 g magnesium, 125 mg Solu-Medrol. Respiratory therapy to gave additional treatment of 5 mg Ventolin with improvement patient now satting 95% on 4 L oxygen mask Patient with tachycardia of 99 after 2 Ventolin treatments. Will medicate with 1 g midazolam as patient is extremely tremulous, with tachycardia. Labs reveal leukocytosis of 13, HGB of 10.9--> however on 02/05/2025 HGB was 9.4, showing improvement, HCT 37.5, with thrombocytopenia of 411, neutrophilia of 76.5 most likely elevated due to smoking or leukocytosis. No electrolyte abnormalities. UA negative for blood or infection. Viral serology negative. CXR reveals mild atelectasis of the right lower lobe, however will obtain CT chest for further evaluation of possible pneumonia. Will obtain CT abdomen and pelvis for further evaluation of diffuse abdominal pain, constipation. 18:22- CT chest reveals resolving right lower lobe pneumonia, CT abdomen reveals small pericardial effusion, and a known right renal tumor, mild stool burden. Patient was satting 86% on 6 L oxygen mask, respiratory therapy was called patient was placed on 50 L 45% high-flow oxygen and is satting between 88 and 90. I spoke with hospitalist Dr. Montoya who agreed to admit to medicine. Differential Diagnosis Differential Diagnoses: The differential diagnosis associated with the presentation includes ACS COPD exacerbation Pneumonia Electrolyte abnormality SBO Constipation Admission/Observation Consideration of admission/observation: Escalation of care including admission/observation considered Consult Healthcare Provider Management of the patient was discussed with: Hospitalist (Dr. Montoya) Lab Data MDM Lab Attestation statement: I reviewed the patient's lab results. 04/01/25 13:53 04/01/25 13:52 Labs: Lab Results 04/01/25 04/01/25 04/01/25 Range/Units 13:52 13:53 13:59 WBC 13.0 H (4.8-10.8) X10*3/uL RBC 4.69 D (4.20-5.50) X10*6/uL Hgb 10.9 L (12.0-16.0) g/dl Hct 37.5 (37.0-47.0) % MCV 80.0 (80.0-98.0) fL MCH 23.2 L (27.0-33.0) pg MCHC 29.1 L (31.0-35.0) g/dl RDW 18.1 H (11.0-16.0) % Plt Count 411 H D (160-400) X10*3/uL MPV 9.1 L (9.4-12.3) fL Immature Gran % (Auto) 0.5 H (0.0-0.4) % Neut % (Auto) 76.5 H (45-73) % Lymph % (Auto) 14.0 L (20-40) % [place] % (Auto) 6.2 (2-11) % Eos % (Auto) 2.0 (0-4) % Baso % (Auto) 0.8 (0-2) % Lymph # (Auto) 1.8 (1.2-4.9) X10*3/uL [place] # (Auto) 0.8 (0.1-1.2) X10*3/uL Eos # (Auto) 0.3 (0.0-0.4) X10*3/uL Baso # (Auto) 0.1 (0.0-0.2) X10*3/uL Abs Immat Gran (auto) 0.06 H (0.00-0.03) X10*3/uL Absolute Neuts (auto) 10.0 H (2.0-8.3) x10*3/uL Absolute Nucleated RBC 0.000 (0.0-0.012) X10*3/uL Nucleated RBC % (auto) 0.0 (0.0-0.2) /100WBC D-Dimer High Sensitivty NG/ML VBG pH 7.36 (7.32-7.43) VBG pCO2 72 mmHg VBG pO2 105 mmHg VBG HCO3 41 H (22-26) mmol/L VBG O2 Saturation 97.0 % VBG Base Excess 12.5 mmol/L Sodium 142 (135-145) mmol/L Potassium 3.7 (3.3-5.1) mmol/L Chloride 99 (96-108) mmol/L Carbon Dioxide 32 H (22-29) mmol/L Anion Gap 15 (12-20) BUN 7 L (9-16) mg/dL Creatinine 0.46 L (0.5-1.4) mg/dL Estim Creat Clear Calc 86.6 Estimated GFR > 60 Random Glucose 233 H (60-115) mg/dL Lactic Acid 1.3 (0.5-2.0) mmol/L Calcium 10.0 (8.4-10.2) mg/dL Troponin I High Sens 3.6 (<3.5-17.0) ng/L B-Natriuretic Peptide < 10 (<100) pg/mL Urine Color Urine Appearance Urine pH (5.0-9.0) Ur Specific [place] (1.005-1.025) Urine Protein (Neg-Trace) mg/dL Urine Glucose (UA) (Negative) mg/dL Urine Ketones (Negative) mg/dL Urine Blood (Negative) Urine Nitrite (Negative) Ur Leukocyte Esterase (Negative) Urine RBC (0-2) /HPF Urine WBC (0-5) /HPF Ur Squamous Epith Cells (0-2) /HPF Urine Bacteria (None Seen) Hyaline Casts (0-2) /LPF Influenza Type A (PCR) NEGATIVE (Negative) Influenza Type B (PCR) NEGATIVE (Negative) RSV RNA Qual (PCR) NEGATIVE (Negative) SARS-CoV-2 RNA (RT-PCR) NEGATIVE (Negative) 04/01/25 04/01/25 04/01/25 Range/Units 14:25 15:10 16:59 WBC (4.8-10.8) X10*3/uL RBC (4.20-5.50) X10*6/uL Hgb (12.0-16.0) g/dl Hct (37.0-47.0) % MCV (80.0-98.0) fL MCH (27.0-33.0) pg MCHC (31.0-35.0) g/dl RDW (11.0-16.0) % Plt Count (160-400) X10*3/uL MPV (9.4-12.3) fL Immature Gran % (Auto) (0.0-0.4) % Neut % (Auto) (45-73) % Lymph % (Auto) (20-40) % [place] % (Auto) (2-11) % Eos % (Auto) (0-4) % Baso % (Auto) (0-2) % Lymph # (Auto) (1.2-4.9) X10*3/uL [place] # (Auto) (0.1-1.2) X10*3/uL Eos # (Auto) (0.0-0.4) X10*3/uL Baso # (Auto) (0.0-0.2) X10*3/uL Abs Immat Gran (auto) (0.00-0.03) X10*3/uL Absolute Neuts (auto) (2.0-8.3) x10*3/uL Absolute Nucleated RBC (0.0-0.012) X10*3/uL Nucleated RBC % (auto) (0.0-0.2) /100WBC D-Dimer High Sensitivty < 150 NG/ML VBG pH (7.32-7.43) VBG pCO2 mmHg VBG pO2 mmHg VBG HCO3 (22-26) mmol/L VBG O2 Saturation % VBG Base Excess mmol/L Sodium (135-145) mmol/L Potassium (3.3-5.1) mmol/L Chloride (96-108) mmol/L Carbon Dioxide (22-29) mmol/L Anion Gap (12-20) BUN (9-16) mg/dL Creatinine (0.5-1.4) mg/dL Estim Creat Clear Calc Estimated GFR Random Glucose (60-115) mg/dL Lactic Acid (0.5-2.0) mmol/L Calcium (8.4-10.2) mg/dL Troponin I High Sens 3.9 (<3.5-17.0) ng/L B-Natriuretic Peptide (<100) pg/mL Urine Color Yellow Urine Appearance Turbid Urine pH 8.0 (5.0-9.0) Ur Specific [place] 1.015 (1.005-1.025) Urine Protein Negative (Neg-Trace) mg/dL Urine Glucose (UA) Negative (Negative) mg/dL Urine Ketones Negative (Negative) mg/dL Urine Blood Negative (Negative) Urine Nitrite Negative (Negative) Ur Leukocyte Esterase Trace H (Negative) Urine RBC 0-2 (0-2) /HPF Urine WBC 0-5 (0-5) /HPF Ur Squamous Epith Cells 3-5 (0-2) /HPF Urine Bacteria None Seen (None Seen) Hyaline Casts 0-2 (0-2) /LPF Influenza Type A (PCR) (Negative) Influenza Type B (PCR) (Negative) RSV RNA Qual (PCR) (Negative) SARS-CoV-2 RNA (RT-PCR) (Negative) Independent Interpretation I performed an independent interpretation of an: EKG Interpretation: I personally interpreted the EKG which showed normal sinus rhythm without ST- elevation/depression, T-wave abnormality Vent. Rate : 97 BPM Atrial Rate : 97 BPM P-R Int : 124 ms QRS Dur : 86 ms QT Int : 366 ms P-R-T Axes : 73 88 83 degrees QTcB Int : 464 ms Normal sinus rhythm Normal ECG When compared with ECG of 04-Feb-2025 15:02, No significant change was found Radiology Impression Discussion of test interpretation with radiology: I have reviewed the radiologist's reading. Radiologist Impression: CT chest Findings: Heart size is normal with trace pericardial effusion. Prominent coronary artery and aortic calcifications. No thoracic aortic aneurysm or dissection. Visualized thyroid gland appears unremarkable. Stable multiple nonenlarged nonspecific mediastinal lymph nodes. No lymphadenopathy. Interval near-complete resolution of irregular airspace opacity in the right lower lobe. Right lower lobe and lingular atelectasis and/or scarring. Stable 4 mm noncalcified nodule in the right middle lobe. Stable multiple 7 mm or less in size noncalcified right lower lobe nodules. No pleural effusion or pneumothorax. Please see the separate report for the CT abdomen and pelvis. The bones are intact. IMPRESSION: 1. Near-complete resolution of prior right lower lobe pneumonia. No new or progressive acute airspace disease. 2. Stable multiple nonspecific right middle and lower lobe pulmonary nodules. ACR Fleischner Society recommendations (Jasminehopaul, et al. Radiology 2017; 284(1): 228-43) suggest the following: For patients with low risk of lung cancer, initial chest CT at 3-6 months. If stable, no further follow-up or an optional chest CT at 18-24 months if there is high index of suspicion. For patients with high risk of lung cancer, initial chest CT at 3-6 months. If stable, another chest CT at 18-24 months. This document has been electronically signed by: Tatiana Ryder DO on 04/01/2025 17:20:40 Dictated By: Tatiana Ryder MD Signed By: <Electronically signed by Tatiana Ryder MD in [place]> 04/01/[address] abdomen and pelvis Findings: There is motion artifact. Please see the separate report for the CT chest. An irregular complex exophytic lesion in the right kidney is again identified currently measuring 2.6 x 3.0 cm on axial image 284, series 7 compared with 2.9 x 3.4 cm on prior study. No hydronephrosis or significant perinephric edema. No urolithiasis. No acute abnormalities in the remaining solid organs. No large calcified gallstone. No AAA. No bowel obstruction, pneumoperitoneum, or pneumatosis. Large amount of fluid and food debris in the stomach could be from a recent meal or gastroparesis. No ascites or organized fluid collection. No significant mesenteric or paracolic edema. Moderate amount of stool throughout the colon. The appendix is identified. No acute appendicitis. Small uterine calcifications are likely related to a fibroid. Urinary bladder unremarkable. The bones are intact. IMPRESSION: 1. Motion affected study. 2. No obstructive or acute inflammatory changes in the gastrointestinal and genitourinary tracts. 3. Moderate colonic stool burden. Nonspecific prominent gastric distention. 4. Known right renal tumor with postablative changes is stable to slightly smaller in size compared to prior study. This document has been electronically signed by: Tatiana Ryder DO on 04/01/2025 17:49:18 Dictated By: Tatiana Ryder MD Signed By: <Electronically signed by Tatiana Ryder MD in [place]> 04/01/25 0093 External Record Review External record reviewed: Inpatient record, Office record and Outpatient record Chronic Conditions Patient?s care impacted by: Diabetes, Hypertension and Other (COPD, GERD, gastroparesis, gastritis, constipation) Critical Care Time Critical Care Time Total Critical Care Time: 48 Attestation: I personally provided 48 minutes of critical care time in the management of this patient with an acute COPD exacerbation complicated by hypoxia requiring 50 L/min high-flow nasal cannula oxygen. Patient was at high risk of sudden life- threatening deterioration including impending respiratory failure, hypoxemia, and cardiopulmonary collapse. My critical care services included immediate evaluation stabilization of airway breathing and circulation, titration and monitoring of high-flow oxygen therapy with respiratory therapist, interpretation of blood gases, laboratory studies, chest imaging, consideration of noninvasive versus invasive ventilation, hemodynamic monitoring, frequent reassessments of respiratory status and coordination with respiratory and nursing staff to stabilize patient. Discharge Plan Discharge Print Language: Wolof
[2025-04-01] MEDS: Albuterol Sulfate 5 MG, Albuterol/Iprat 2.5/0.5MG 3 ML 3 ML INHALE ×2 (13:40→15:24)
[2025-04-01 13:59] LABS: MANUAL DIFF FLAG NO
[2025-04-01 14:01] LABS: Hematocrit 37.5 % (37.0-47.0); Hemoglobin 10.9 g/dl (12.0-16.0); Imm Gran Abs Auto 0.06 X10*3/uL (0.00-0.03); Imm Gran Pct Auto 0.5 % (0.0-0.4); Lymphocytes Absolute Auto 1.8 X10*3/uL (1.2-4.9); Mean Corpuscular HGB Conc 29.1 g/dl (31.0-35.0); Mean Corpuscular Hemoglobin 23.2 pg (27.0-33.0); Mean Corpuscular Volume 80.0 fL (80.0-98.0); NRBC Abs Auto 0.000 X10*3/uL (0.0-0.012); NRBC Pct Auto 0.0 /100WBC (0.0-0.2); Platelet Count 411 X10*3/uL (160-400); Red Blood Count 4.69 X10*6/uL (4.20-5.50); White Blood Count 13.0 X10*3/uL (4.8-10.8)
[2025-04-01 14:03] LABS: Venous Blood Gas Refer to POC result
[2025-04-01 14:04] LABS: VBG HCO3 41 mmol/L (22-26); VBG O2 % Saturation 97.0 %
[2025-04-01 14:17] LABS: Anion Gap 15 (12-20); Blood Urea Nitrogen 7 mg/dL (9-16); Calcium 10.0 mg/dL (8.4-10.2); Carbon Dioxide 32 mmol/L (22-29); Chloride 99 mmol/L (96-108); Creatinine Clr Calc Pharmacy 86.6; Estimated Glomerular Filt Rate > 60; Potassium 3.7 mmol/L (3.3-5.1); Sodium 142 mmol/L (135-145)
[2025-04-01 14:22] LABS: B Type Natriuretic Peptide < 10 pg/mL (<100)
[2025-04-01 14:25] LABS: Troponin-I High Sensitivity 3.6 ng/L (<3.5-17.0)
[2025-04-01 14:34] LABS: Appearance Urine Turbid; Glucose Urine UA Negative (Negative); PH 8.0 (5.0-9.0); Specific Gravity - Urine 1.015 (1.005-1.025); UMIC TRIGGER UACC YES
[2025-04-01] MEDS: Nicotine 21 MG PATCH.TD24 TRANSDERMA (14:42)
[2025-04-01 14:53] LABS: Resp Syncy Virus RNA Qual PCR NEGATIVE (Negative); SARS COV2 PCR INHOUSE NEGATIVE (Negative)
[2025-04-01] MEDS: Magnesium Sulfate/H2O 2 GM/50 ML PIGGYBACK IV ×2 (15:07→21:25)
--- NOTE | 2025-04-01 15:08 | PC.NURSE ---
Pt has moderately increased WOB, coarse wheezes audible. dry mm. NSR On monitor. abd breathing but no persed lips, no tripoding. states she's normally in mid 80's at home on 2L.
[2025-04-01 15:33] LABS: D Dimer High Sensitivity < 150 NG/ML
[2025-04-01] MEDS: iohexoL 350 MG/ML 100 ML INFUS..BTL IV (16:06)
[2025-04-01 17:23] LABS: Troponin-I High Sensitivity 3.9 ng/L (<3.5-17.0)
--- NOTE | 2025-04-01 17:27 | PC.NURSE ---
present to adminversed while resp applied high flow O2. Pt is tachipnic but shallow resp.
--- NOTE | 2025-04-01 18:23 | P.HPHOSP_ITS ---
History of Present Illness Date of Service: 04/01/25 Attending physician on admission: King Fiore Chief Complaint: SOB Pt is a 64 yo female with PMH COPD/ emphysema, tobacco dependence 25 cigs per day, Home O2 dependent, pulmonary nodules, kidney ablation, cervical radiculopathy, TIA, GERD, NIDDM, depression/anxiety presents to ED with worsening SOB and productive cough over the last three days. Pt completing ABX for pneumonia which currently shows near resolve on CT of the chest. Pt has been smoking more, now up to 25 cigarettes a day as she is dealing with increased depression and anxiety over her relationship with her estranged son. Pt has been stating at home that she does not want to live anymore and said the same today. Pt's SO present for interview and was able to confirm this. In addition, SO offers that pt has been more forgetful and will forget to place her oxygen back on after smoking a cigarette. In addition, pt is getting up hourly during the night to smoke as well. Pt also noted to have slow recall and poor short term memory today on exam. SO state pt has been like this more so over the last few days and pt has family hx of dementia. Pt does follow with neurologist for her hx of TIA. Pt and SO deny any recent falls or injury. Pt does not use NMV at home. Patient also reported to ED provider that she had not had a recent bowel movement and is complaining of diffuse abdominal pain. Patient was no longer having this complaint on admission interview. CT of the abdomen and pelvis with contrast noted moderate colonic stool burden with a nonspecific prominent gastric distention. There was no evidence of obstructive or acute inflammatory changes in the GI or tract. UA negative. 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 Patient required high-flow oxygen 50 L 45% and satting 93%. Respiratory therapy closely following. Work-up in the ED involved DDIMER which was negative, CT chest which noted near-complete resolution of prior right lower lobe pneumonia and no new progressive acute airspace disease with stable multiple nonspecific right middle and lower lobe pulmonary nodules. VBG 7.36, 72, 105, 41. Patient does follow with a faculty dean in [place] and was last seen approximately 6 months prior. Patient was resumed on ceftriaxone and azithromycin IV. Patient received Solu-Medrol and 2 g of magnesium. Patient's, tachypnea and tachycardia were improving. Patient is seen, somewhat tremulous after the albuterol. Patient being admitted for acute hypoxic respiratory failure, COPD exacerbation, resolving right lower lobe pneumonia, depression with recent suicidal thoughts with no plan, recent worsening recall with memory loss and constipation. Review of Systems 2 Review of Systems: Patient currently denies any chest pain, abdominal pain, reports poor appetite over the last week. Patient has not had a bowel movement in at least 3 days. Patient has been straining in the past. Patient currently does have a productive cough that is sometimes yellow to kary colored patient is smoking about 25 cigarettes per day. Patient denies any alcohol use and only uses marijuana on occasion. Patient denies any illicit drug use Yes all other systems are reviewed and are negative [facility] Medical History Mixed dyslipidemia Heavy cigarette smoker History of pneumonia COPD mixed type Gastritis Diabetic gastroparesis Diastolic CHF with preserved left ventricular function, NYHA class 2 Chronic hypercapnic respiratory failure Type 2 diabetes mellitus with other diabetic kidney complication Essential hypertension Smoker unmotivated to quit Postlaminectomy syndrome of cervical region Seasonal allergic rhinitis GERD (gastroesophageal reflux disease) Cognitive capacity: Alert and orientated x3 Functional capacity: independent ambulation Patient : No Family History Mother Diabetes Sister Diabetes Mental health disorder Brother Diabetes Father HTN (hypertension) Surgical History H/O cervical discectomy History of esophagogastroduodenoscopy (EGD) Hx of colonoscopy Social History (Updated 04/01/25 @ 20:01 by MOUSTAPHA Drew) Household Members: Significant Other Housing: Other Housing Other:: mobile home Are you a primary healthcare network consultant to a significant other at home: No Do you presently have visiting nurse or other home services: Yes (physical trainer) Alcohol intake: never Comment: Commode/ Hi Flow O2 Patient Tobacco Use Status: Current everyday Tobacco user Tobacco use type: Cigarette Cigarette Packs Per Day: 1 Cigarettes Per Day: 25 Years Smoked: 51 e-Cigarette/Vaping Use: Never Used Second Hand Smoke Exposure: Yes Advance Directives: Yes Advance Directives on File: Yes Advance Directives Date on File: 08/02/23 Do you have a plan to hurt others: No Plan Patient : No service: No Current occupational status: unemployed and disabled Gender identity: Female Cognitive needs: No Hearing needs: No Vision needs: Yes Ebola Risk: Travel/Contact With Anyone From Affected Area/s: No Has Patient Experienced Ebola Symptoms: No Meds Allergies Allergy/AdvReac Type Severity Reaction Status Date / Time amoxicillin (AMOXICILLIN) Allergy Intermediate RASH Verified 04/01/25 13:10 Home Medications ?Medication ?Instructions ?Recorded ?Confirmed ?Last Taken ?Type aspirin 81 mg tablet,delayed 81 mg PO BEDTIME 01/10/21 02/05/25 02/04/25 History release (Adult Low Dose Aspirin) azithromycin 500 mg tablet 500 mg PO TUTHSA 02/05/25 0 02/05/25 02/03/25 History Held on 02/07/25. Instructions: Resume on 02/11/25. fluticasone fur. 100 mcg-umeclid 1 ea inhalation DAILY 02/05/25 02/05/25 02/04/25 History 62.5 mcg-vilant 25 mcg inhalat.powder (Trelegy Ellipta) ipratropium 0.5 mg-albuterol 3 mg 3 ml inhalation Q6H PRN wheezing 02/05/25 02/05/25 Unknown History (2.5 mg base)/3 mL nebulization soln Physical Exam 2 Vital Signs and Narrative: Vital Signs: Last Vital Signs Temp 98.2 F 04/01/25 13:10 Pulse 102 H 04/01/25 17:25 Resp 26 H 04/01/25 18:07 BP 129/53 L 04/01/25 17:25 Pulse Ox 88 L 04/01/25 17:25 O2 Del Method High Flow Nasal C annula 04/01/25 17:25 O2 Flow Rate 4 04/01/25 15:09 Oxygen Flow Rate 2 04/01/25 13:10 BMI result Body Mass Index 27.3 Alert and orientated X3, unable to provide hx due to slow recall, poor memory, SO present and was helpful Neuro: memory poor, mild essential tremor upper ext after albuterol, can follow commands EYES: PERRLA, EOM intact, sclera nonicteric, conjunctiva pink ENT: hearing intact, no issues with swallowing, uvula midline, lips moist, nares patent no epistaxis Cardiac: S1 S2 RRR, no murmur, no JVD, no edema in Lower ext Pulmonary: lungs diminished bilateral, mild expiratory wheeze Abdominal: BS active in all 4 quadrants, no guarding, tenderness, rebounding MSK: strength 4/5 upper and lower extremities : no CVA tenderness no bladder distension Extremities: no edema in lower extremities, PT and DP pulses palpable +2 Psych: mood flat, judgement and insight fair Skin: intact Results Labs 04/01/25 13:53 04/01/25 13:52 Labs: Laboratory Results - last 24 hr 04/01/25 04/01/25 04/01/25 13:52 13:53 13:59 MCV 80.0 MCH 23.2 L MCHC 29.1 L RDW 18.1 H Plt Count 411 H D MPV 9.1 L Immature Gran % (Auto) 0.5 H Neut % (Auto) 76.5 H Lymph % (Auto) 14.0 L [place] % (Auto) 6.2 Eos % (Auto) 2.0 Baso % (Auto) 0.8 Lymph # (Auto) 1.8 [place] # (Auto) 0.8 Eos # (Auto) 0.3 Baso # (Auto) 0.1 Abs Immat Gran (auto) 0.06 H Absolute Neuts (auto) 10.0 H Absolute Nucleated RBC 0.000 Nucleated RBC % (auto) 0.0 D-Dimer High Sensitivty VBG pH 7.36 VBG pCO2 72 VBG pO2 105 VBG HCO3 41 H VBG O2 Saturation 97.0 VBG Base Excess 12.5 Anion Gap 15 Estim Creat Clear Calc 86.6 Estimated GFR > 60 Random Glucose 233 H Lactic Acid 1.3 Calcium 10.0 B-Natriuretic Peptide < 10 Urine Color Urine Appearance Urine pH Ur Specific Farley Urine Protein Urine Glucose (UA) Urine Ketones Urine Blood Urine Nitrite Ur Leukocyte Esterase Urine RBC Urine WBC Ur Squamous Epith Cells Urine Bacteria Hyaline Casts Influenza Type A (PCR) NEGATIVE Influenza Type B (PCR) NEGATIVE RSV RNA Qual (PCR) NEGATIVE SARS-CoV-2 RNA (RT-PCR) NEGATIVE 04/01/25 04/01/25 14:25 15:10 MCV MCH MCHC RDW Plt Count MPV Immature Gran % (Auto) Neut % (Auto) Lymph % (Auto) [place] % (Auto) Eos % (Auto) Baso % (Auto) Lymph # (Auto) [place] # (Auto) Eos # (Auto) Baso # (Auto) Abs Immat Gran (auto) Absolute Neuts (auto) Absolute Nucleated RBC Nucleated RBC % (auto) D-Dimer High Sensitivty < 150 VBG pH VBG pCO2 VBG pO2 VBG HCO3 VBG O2 Saturation VBG Base Excess Anion Gap Estim Creat Clear Calc Estimated GFR Random Glucose Lactic Acid Calcium B-Natriuretic Peptide Urine Color Yellow Urine Appearance Turbid Urine pH 8.0 Ur Specific Farley 1.015 Urine Protein Negative Urine Glucose (UA) Negative Urine Ketones Negative Urine Blood Negative Urine Nitrite Negative Ur Leukocyte Esterase Trace H Urine RBC 0-2 Urine WBC 0-5 Ur Squamous Epith Cells 3-5 Urine Bacteria None Seen Hyaline Casts 0-2 Influenza Type A (PCR) Influenza Type B (PCR) RSV RNA Qual (PCR) SARS-CoV-2 RNA (RT-PCR) ECG Attestation: I personally reviewed and interpreted this ECG as follows: (Normal sinus rhythm Normal ECG) Prior ECG tracings: available for review Imaging Radiologist's Impressions: ABD PELVIS CT IMPRESSION: 1. Motion affected study. 2. No obstructive or acute inflammatory changes in the gastrointestinal and genitourinary tracts. 3. Moderate colonic stool burden. Nonspecific prominent gastric distention. 4. Known right renal tumor with postablative changes is stable to slightly smaller in size compared to prior study. CHest CT IMPRESSION: 1. Near-complete resolution of prior right lower lobe pneumonia. No new or progressive acute airspace disease. 2. Stable multiple nonspecific right middle and lower lobe pulmonary nodules. CXR IMPRESSION: Mild atelectasis and/or scarring in the right lower lobe, otherwise no acute cardiopulmonary process. Assessment and Plan (1) Pneumonia: Qualifiers: Laterality: right Lung location: lower lobe of lung Pneumonia type: d ue to unspecified organism Qualified Code(s): J18.9 - Pneumonia, unspecified organism Status: Acute Plan Pt is a 64 yo female with PMH COPD/ emphysema, tobacco dependence 25 cigs per day, Home O2 dependent, pulmonary nodules, kidney ablation, cervical radiculopathy, TIA, GERD, NIDDM, depression/anxiety presents to ED with worsening SOB and productive cough over the last three days. Pt completing ABX for penumonia which currently shows near resolve on CT of the chest. Pt has been smoking more, now up to 25 cigarettes a day as she is dealing with increased depression and anxiety over her relationship with her estranged son. Pt has been stating at home that she does not want to live anymore and said the same today. Pt's SO present for interview and was able to confirm this. In addition, SO offers that pt has been more forgetful and will forget to place her oxygen back on after smoking a cigarette. In addition, pt is getting up hourly during the night to smoke as well. Pt also noted to have slow recall and poor short term memory today on exam. SO state pt has been like this more so over the last few days and pt has family hx of dementia. Pt does follow with neurologist for her hx of TIA. Pt and SO deny any recent falls or injury. Pt does not use NMV at home. Patient being admitted for acute hypoxic respiratory failure, COPD exacerbation, resolving right lower lobe pneumonia, depression with recent suicidal thoughts, recent worsening recall with memory loss and constipation. Acute hypoxic respiratory failure Admitted on Hi Flow 50L 45%, wean as tolerated Continue methylprednisolone 80 BID DUONEBS Budesonide PNA Continue ceftriaxone and azithrmycin CT reassuring that RLL PNA nearly resolved Incentive spirometer COPD exacerbation, Emphysema Duonebs Wean O2 as tolerated Budesonide MG 2GMS IV X1 Pulmonary consult placed Tobacco dependence Pt counsled on benefits of smoking cessation Pt has failed chantrix and other treatments in the past Nicotine patch initiated SI, Depression Pt has been expressing not wanting to live recently with no plan 1:1 placed Psychiatric consult ordered Check Vitamin D Level Constipation Dulcolax Mirilax scheduled Senna HS CT neg for ileus or bowel obstruction ? Early dementia, poor recall and memory hx of dementia in family OT consulted for MOCA, if positive, pt can follow with neuro as an outpatinet HEAD CT pending Neuro exam otherwise reassuring DVT prophylaxis: lovenox Full Code MED REC pending Quality Stroke Does the patient have a stroke diagnosis?: No Reason for No Anti-thrombotic by Day Two: N/A - Med Ordered VTE Prior VTE?: No VTE Risk Level:: Medical - moderate - high VTE Device Contraindication: N/A - Device Ordered VTE Drug Contraindication: N/A - Med Ordered
[2025-04-01 18:55] LABS: Iron 31 mcg/dL (30-160); Magnesium 1.6 mg/dL (1.6-2.6); Percent Iron Saturation 7 % (15-50); Total Iron Binding Capacity 440 mcg/dL (228-428); Unsaturated Iron Binding 409 ug/dL
[2025-04-01 19:09] LABS: Free T4 (Free Thyroxine) 1.07 ng/dL (0.71-1.85); Thyroid Stimulating Hormone 1.02 uIU/mL (0.32-4.0)
--- NOTE | 2025-04-01 19:38 | PC.NURSE ---
Back documentation PT sating at 85% on 6L of Oxy Mask, provider notified, RT to bedside, PT placed on Hiflow.
[2025-04-02] VITALS (7 sets, daily range): BP systolic 136–149; BP diastolic 53–69; PULSE 79–91; RESP 18–24; TEMP 36.1–37.1; O2SAT 90–95
--- NOTE | 2025-04-02 01:30 | PC.NURSE ---
While doing a worklist/chart review this RN was able to identify the Hospitalist RESEARCH DIRECTOR's communication order for 1:1 obs d/t pt's SI without plan. stem setter made aware and patient observer assigned and provided with sitter sheet documentation. This RN has been in many times to assist with high flow NC adjustments and placement as the pt is intermittently noted to desat to 86% on her 50LPM. Pt well appearing at this time, positive improvement in O2 saturation s/p cannula adjustments
--- NOTE | 2025-04-02 02:10 | PC.NURSE ---
Pt requesting gabapentin now and at 0600 for 10/10 left arm pain that she states she normally takes the gabapentin TID for. The pt is awake and alert, respirations are even and unlabored. Pt denies the presence of SI/HI at this time.
[2025-04-02 04:38] LABS: MANUAL DIFF FLAG NO
[2025-04-02 04:39] LABS: Hematocrit 35.2 % (37.0-47.0); Hemoglobin 10.3 g/dl (12.0-16.0); Imm Gran Abs Auto 0.09 X10*3/uL (0.00-0.03); Imm Gran Pct Auto 0.6 % (0.0-0.4); Lymphocytes Absolute Auto 1.0 X10*3/uL (1.2-4.9); Mean Corpuscular HGB Conc 29.3 g/dl (31.0-35.0); Mean Corpuscular Hemoglobin 23.1 pg (27.0-33.0); Mean Corpuscular Volume 78.9 fL (80.0-98.0); NRBC Abs Auto 0.000 X10*3/uL (0.0-0.012); NRBC Pct Auto 0.0 /100WBC (0.0-0.2); Platelet Count 401 X10*3/uL (160-400); Red Blood Count 4.46 X10*6/uL (4.20-5.50); White Blood Count 13.9 X10*3/uL (4.8-10.8)
[2025-04-02 05:01] LABS: Anion Gap 14 (12-20); Blood Urea Nitrogen 6 mg/dL (9-16); Calcium 9.6 mg/dL (8.4-10.2); Carbon Dioxide 32 mmol/L (22-29); Chloride 100 mmol/L (96-108); Creatinine Clr Calc Pharmacy 104.9; Estimated Glomerular Filt Rate > 60; Potassium 4.2 mmol/L (3.3-5.1); Sodium 142 mmol/L (135-145)
--- NOTE | 2025-04-02 08:30 | PM.CNPUL ---
History of Present Illness History of Present Illness Consult date: 04/02/25 Chief complaint: pna, constipation Narrative: This is an inpt pulmonary consultation. The patient is a 64 yo female with PMH COPD/ emphysema, tobacco dependence 25 cigs per day, Home O2 dependent, pulmonary nodules, presents to ED with worsening SOB and productive cough over the last three days. Pt completing ABX for pneumonia which currently shows near resolve on CT of the chest. Patient required high-flow oxygen 50 L 45% and satting 93%. Respiratory therapy closely following. Work-up in the ED involved DDIMER which was negative, CT chest which noted near-complete resolution of prior right lower lobe pneumonia and no new progressive acute airspace disease with stable multiple nonspecific right middle and lower lobe pulmonary nodules. VBG 7.36, 72, 105, 41. 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 Patient was resumed on ceftriaxone and azithromycin IV. Patient received Solu-Medrol and 2 g of magnesium. Patient's, tachypnea and tachycardia were improving. Patient is seen, somewhat tremulous after the albuterol. Patient being admitted for acute hypoxic respiratory failure, COPD exacerbation, resolving right lower lobe pneumonia, depression with recent suicidal thoughts with no plan, recent worsening recall with memory loss and constipation. Review of Systems Constitutional: Constitutional: Denies fever(s) Eyes: Eyes: Reports no additional eye complaints ENT: Reports nasal congestion Cardiovascular: Cardiovascular: Denies chest pain and Reports dyspnea Respiratory: Respiratory: Reports chest congestion, Reports cough, Reports dyspnea and Reports wheezing Gastrointestinal: Gastrointestinal: Reports no additional gastrointestinal complaints Musculoskeletal: Musculoskeletal: Reports no additional musculoskeletal complaints Integumentary/Breasts: Skin/Breast: Denies rash Neurologic: Reports memory loss Psychiatric: Psychiatric: Reports depression and Reports memory loss Hematologic/Lymphatic: Hematologic/Lymphatic: Reports no additional hematologic/lymphatic complaints Allergic/Immunologic: Allergic/Immunologic: Reports wheezing PMFSH Past Medical History Medical History (Updated 04/02/25 @ 08:37 by Cristóbal Paulson MD) Chronic hypercapnic respiratory failure Mixed dyslipidemia Heavy cigarette smoker History of pneumonia COPD mixed type Gastritis Diabetic gastroparesis Diastolic CHF with preserved left ventricular function, NYHA class 2 Type 2 diabetes mellitus with other diabetic kidney complication Essential hypertension Smoker unmotivated to quit Postlaminectomy syndrome of cervical region Seasonal allergic rhinitis GERD (gastroesophageal reflux disease) Family History Family History Mother Diabetes Sister Diabetes Mental health disorder Brother Diabetes Father HTN (hypertension) Surgical History Surgical History H/O cervical discectomy History of esophagogastroduodenoscopy (EGD) Hx of colonoscopy Social History Social History (Updated 04/01/25 @ 20:01 by MOUSTAPHA Drew) Household Members: Significant Other Housing: Other Housing Other:: mobile home Are you a primary health care coach to a significant other at home: No Do you presently have 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) Alcohol intake: never Comment: Commode/ Hi Flow O2 Patient Tobacco Use Status: Current everyday Tobacco user Tobacco use type: Cigarette Cigarette Packs Per Day: 1 Cigarettes Per Day: 25 Years Smoked: 51 Smoked in Last 30 Days: Yes e-Cigarette/Vaping Use: Never Used Second Hand Smoke Exposure: Yes Use of substances other than those prescribed or required for medical reasons: No Advance Directives: Yes Advance Directives on File: Yes Advance Directives Date on File: 08/02/23 Do you have a plan to hurt others: No Plan Patient : No service: No Current occupational status: unemployed and disabled Gender identity: Female Cognitive needs: No Hearing needs: No Vision needs: Yes Travel History Ebola Risk: Travel/Contact With Anyone From Affected Area/s: No Has Patient Experienced Ebola Symptoms: No Meds Allergies Allergy/AdvReac Type Severity Reaction Status Date / Time amoxicillin (AMOXICILLIN) Allergy Intermediate RASH Verified 04/01/25 13:10 Active Medications: Current Medications Acetaminophen (Acetaminophen 325 Mg Tablet) 650 mg PO Q6H PRN PRN Reason: Pain, Mild 1-3,fever,headache Albuterol/Ipratropium (Albuterol/Iprat 2.5/0.5mg 3 Ml Ampul.Neb) 3 ml INHALE Q4H PRN PRN Reason: Shortness of Breath/Wheezing Bisacodyl (Bisacodyl 10 Mg Supp.Rect) 10 mg OR BEDTIME PRN PRN Reason: Constipation Budesonide (Budesonide 0.5 Mg/2 Ml Ampul.Neb) 0.5 mg INHALE RBID MOUSTAPHA Last Admin: 04/02/25 07:35 Dose: Not Given Calcium Carbonate (Calcium Carbonate 750 Mg Tab.Chew) 750 mg PO Q4H PRN PRN Reason: Heartburn Ceftriaxone Sodium (Ceftriaxone Sodium 1 Gm Vial) 1 gm IVPUSH Q24H [facility] Enoxaparin Sodium (Enoxaparin Sodium 40 Mg/0.4 Ml Syringe) 40 mg SUBCUT Q24H [facility] Last Admin: 04/01/25 21:28 Dose: 40 mg Azithromycin 500 mg/ Sodium (Chloride) 250 mls @ 125 mls/hr IV Q24H [facility] Magnesium Hydroxide (Milk Of Magnesia 30 Ml Oral.Susp) 30 ml PO DAILY PRN PRN Reason: Constipation Melatonin (Melatonin 3 Mg Tablet) 6 mg PO BEDTIME PRN PRN Reason: Insomnia Methylprednisolone Sodium Succinate (Methylprednisolone Sod Succ 125 Mg/2 Ml Vial) 80 mg IVPUSH Q12H [facility] Last Admin: 04/02/25 02:42 Dose: 80 mg Nicotine (Nicotine 21 Mg Patch.Td24) 21 mg TRANSDERMA DAILY [facility] Ondansetron HCl (Ondansetron Hcl 4 Mg/2 Ml Vial) 4 mg IVPUSH Q8H PRN PRN Reason: Nausea and Vomiting Polyethylene Glycol (Polyethylene Glycol 3350 17 Gm Powd.Pack) 17 gm PO DAILY [facility] Senna (Sennosides 8.6 Mg Tablet) 17.2 mg PO BEDTIME [facility] Last Admin: 04/01/25 21:25 Dose: 17.2 mg Sodium Chloride (0.9 % Sodium Chloride Flush 3 Ml Syringe) 3 ml IVFLUSH QSHIFT [facility] Last Admin: 04/02/25 07:53 Dose: Not Given Home Medications ?Medication ?Instructions ?Recorded ?Confirmed ?Last Taken ?Type aspirin 81 mg tablet,delayed 81 mg PO BEDTIME 01/10/21 04/02/25 03/31/25 History release (Adult Low Dose Aspirin) azithromycin 500 mg tablet 500 mg PO TUTHSA 02/05/25 04/02/25 03/31/25 History Held on 02/07/25. Instructions: Resume on 02/11/25. fluticasone fur. 100 mcg-umeclid 1 ea inhalation DAILY 02/05/25 04/02/25 03/31/25 History 62.5 mcg-vilant 25 mcg inhalat.powder (Trelegy Ellipta) ipratropium 0.5 mg-albuterol 3 mg 3 ml inhalation Q6H PRN wheezing 02/05/25 04/02/25 Unknown History (2.5 mg base)/3 mL nebulization soln bisacodyl 5 mg tablet,delayed 10 mg PO BEDTIME PRN Constipation 04/02/25 04/02/25 Unknown History release (Dulcolax (bisacodyl)) ferrous sulfate 324 mg (65 mg 324 mg PO DAILY 04/02/25 04/02/25 03/31/25 History iron) tablet,delayed release psyllium husk 0.52 gram capsule 1.04 g PO BID 04/02/25 04/02/25 03/31/25 History (Fiber Laxative (psyllium husk)) sitagliptin phosphate 100 mg 100 mg PO DAILY 04/02/25 04/02/25 03/31/25 History tablet (Januvia) Physical Exam Vital Signs: Vital Signs: Last Vital Signs Temp 98.8 F 04/02/25 07:58 Pulse 91 04/02/25 07:58 Resp 24 H 04/02/25 07:58 BP 136/53 L 04/02/25 07:58 Pulse Ox 94 04/02/25 07:58 O2 Del Method Nasal Cannula 04/02/25 07:58 O2 Flow Rate 4 04/02/25 07:58 Oxygen Flow Rate 2 04/01/25 13:10 BMI result Body Mass Index 27.3 Const: General: comfortable HEENT: Head: Yes normocephalic Neck: Neck: Yes supple Chest: Chest palpation & inspection: normal inspection of the chest Resp: Effort & Inspection: normal respiratory effort and symmetric chest movement Auscultation: rhonchi and wheezes Cardio: Heart sounds: S1 normal heart sound present and S2 normal heart sound present GI: Palpation (GI): Soft to palpation Skin: General skin exam: no rashes or lesions noted Extrem: General: No cyanosis and No edema Results Laboratory Findings 04/02/25 04:10 04/02/25 04:10 Abnormal lab findings: Abnormal Labs 04/01/25 04/01/25 04/01/25 13:52 13:53 13:59 WBC 13.0 H Hgb 10.9 L Hct MCV MCH 23.2 L MCHC 29.1 L RDW 18.1 H Plt Count 411 H D MPV 9.1 L Immature Gran % (Auto) 0.5 H Neut % (Auto) 76.5 H Lymph % (Auto) 14.0 L Lymph # (Auto) Abs Immat Gran (auto) 0.06 H Absolute Neuts (auto) 10.0 H VBG HCO3 41 H Carbon Dioxide 32 H BUN 7 L Creatinine 0.46 L Random Glucose 233 H TIBC 440 H % Saturation 7 L Ur Leukocyte Esterase 04/01/25 04/02/25 14:25 04:10 WBC 13.9 H Hgb 10.3 L Hct 35.2 L MCV 78.9 L MCH 23.1 L MCHC 29.3 L RDW 17.8 H Plt Count 401 H MPV Immature Gran % (Auto) 0.6 H Neut % (Auto) 87.7 H Lymph % (Auto) 7.2 L Lymph # (Auto) 1.0 L Abs Immat Gran (auto) 0.09 H Absolute Neuts (auto) 12.2 H VBG HCO3 Carbon Dioxide 32 H BUN 6 L Creatinine 0.38 L Random Glucose 134 H TIBC % Saturation Ur Leukocyte Esterase Trace H Assessment and Plan (1) COPD (chronic obstructive pulmonary disease): Qualifiers: COPD type: COPD with acute exacerbation Qualified Code(s): J44.1 - Chronic obstructive pulmonary disease with (acute) exacerbation Status: Acute (2) Hypoxia: Status: Acute (3) Heavy cigarette smoker: Status: Inactive (4) Chronic hypercapnic respiratory failure: Status: Acute (5) Acute on chronic hypoxic respiratory failure: Status: Inactive Plan continue respiratory therapy change to PO prednisone with taper complete 8 days of abx therapy smoking cessation titrate O2 to keep pox>90% - <97% Needs to f/u with outpt pulmonary, [place] Procedures Date of Service Date of Service: 04/02/25
--- NOTE | 2025-04-02 08:39 | PHA.MEDREC ---
Addendum entered by Isabella Foster RPh 04/02/25 08:50: Reviewed by [facility] Original Note: Pharmacy Consult ? Medication Reconciliation Pharmacy has completed the medication reconciliation. Patient was able to say yes or no to her medications. Patient states she is no longer taking Pantoprazole 40 mg. Patient states she is till taking Rosuvastatin 5 mg , however last fill date was 10/09/24 for 90 days. Patient states she is using Nicotine patch 21 mg, patient reports she has one on her right arm. Azithromycin 500 mg every Wednesday, and Wednesday. Patient last had her medications 2 days ago.
--- NOTE | 2025-04-02 08:51 | MHC.CM.PN ---
Patient lives in a mobile home with her Significant Other/HCP/Wiley, who will transport to home at time of dc. Home/resume home O2 from [employer] is the goal and CM has initiated and will follow for dc planning. PCP is Dr. Magalie Nicolas.
[2025-04-02] MEDS: Nicotine 21 MG PATCH.TD24 TRANSDERMA (09:19)
--- NOTE | 2025-04-02 09:22 | PC.NURSE ---
Addendum entered by Doris Coats RN 04/02/25 09:24: patient sat up and ate breakfast this morning, placed on 4l NC and off oxymask so patient could eat Original Note: assumed care of patient at 0700, patient awakes to verbal stimuli. patient currently has sitter for SI. patient denies SI/HI at this time, states she never endorsed SI/HI. patient cleaned up, debbie care completed, purewick repositioned. patient linens are clean and dry. VSS. patient noted to have nicotine patch falling off on mid back during patient clean up, patch removed and new one placed on the left shoulder per OCT. patient refused miralax at this time.
--- NOTE | 2025-04-02 12:53 | HO.PM.IMPN ---
Subjective Subjective Date of Service: 04/02/25 Review of Systems Follow up SOB and hypoxia Reports feeling dizzy Physical Exam Exam: Exam: Appearing in no acute distress lung sounds rhonchi heart regular rate rhythm, clear S1, S2 positive bowel sounds, abdomen is soft, nontender neuro patient is alert x3, no focal deficits Vital Signs: Vital Signs: Last Vital Signs Temp 98.8 F 04/02/25 07:58 Pulse 91 04/02/25 07:58 Resp 24 H 04/02/25 07:58 BP 136/53 L 04/02/25 07:58 Pulse Ox 94 04/02/25 07:58 O2 Del Method Nasal Cannula 04/02/25 07:58 O2 Flow Rate 4 04/02/25 07:58 Oxygen Flow Rate 2 04/01/25 13:10 BMI result Body Mass Index 27.3 Objective Data Active Medications Acetaminophen (Acetaminophen 325 Mg Tablet) 650 mg PO Q6H PRN PRN Reason: Pain, Mild 1-3,fever,headache Albuterol/Ipratropium (Albuterol/Iprat 2.5/0.5mg 3 Ml Ampul.Neb) 3 ml INHALE Q4H PRN PRN Reason: Shortness of Breath/Wheezing Bisacodyl (Bisacodyl 10 Mg Supp.Rect) 10 mg [place] BEDTIME PRN PRN Reason: Constipation Budesonide (Budesonide 0.5 Mg/2 Ml Ampul.Neb) 0.5 mg INHALE RBID [facility] Last Admin: 04/02/25 07:35 Dose: Not Given Documented By: DEYA Non-Admin Reason: Patient Asleep Calcium Carbonate (Calcium Carbonate 750 Mg Tab.Chew) 750 mg PO Q4H PRN PRN Reason: Heartburn Ceftriaxone Sodium (Ceftriaxone Sodium 1 Gm Vial) 1 gm IVPUSH Q24H [facility] Enoxaparin Sodium (Enoxaparin Sodium 40 Mg/0.4 Ml Syringe) 40 mg SUBCUT Q24H [facility] Last Admin: 04/01/25 21:28 Dose: 40 mg Documented By: BELLE Azithromycin 500 mg/ Sodium (Chloride) 250 mls @ 125 mls/hr IV Q24H [facility] Magnesium Hydroxide (Milk Of Magnesia 30 Ml Oral.Susp) 30 ml PO DAILY PRN PRN Reason: Constipation Melatonin (Melatonin 3 Mg Tablet) 6 mg PO BEDTIME PRN PRN Reason: Insomnia Methylprednisolone Sodium Succinate (Methylprednisolone Sod Succ 125 Mg/2 Ml Vial) 80 mg IVPUSH Q12H [facility] Last Admin: 04/02/25 12:46 Dose: 80 mg Documented By: CHRISTINA Nicotine (Nicotine 21 Mg Patch.Td24) 21 mg TRANSDERMA DAILY [facility] Last Admin: 04/02/25 09:19 Dose: 21 mg Documented By: JUDE Ondansetron HCl (Ondansetron Hcl 4 Mg/2 Ml Vial) 4 mg IVPUSH Q8H PRN PRN Reason: Nausea and Vomiting Polyethylene Glycol (Polyethylene Glycol 3350 17 Gm Powd.Pack) 17 gm PO DAILY [facility] Last Admin: 04/02/25 09:20 Dose: Not Given Documented By: JUDE Non-Admin Reason: Patient Refused Senna (Sennosides 8.6 Mg Tablet) 17.2 mg PO BEDTIME [facility] Last Admin: 04/01/25 21:25 Dose: 17.2 mg Documented By: BELLE Sodium Chloride (0.9 % Sodium Chloride Flush 3 Ml Syringe) 3 ml IVFLUSH QSHIFT [facility] Last Admin: 04/02/25 07:53 Dose: Not Given Documented By: JUDE Non-Admin Reason: See Note Labs 04/02/25 04:10 04/02/25 04:10 Labs: Laboratory Results - last 24 hr 04/01/25 04/01/25 04/01/25 13:52 13:53 13:59 MCV 80.0 MCH 23.2 L MCHC 29.1 L RDW 18.1 H Plt Count 411 H D MPV 9.1 L Immature Gran % (Auto) 0.5 H Neut % (Auto) 76.5 H Lymph % (Auto) 14.0 L Alfalfa % (Auto) 6.2 Eos % (Auto) 2.0 Baso % (Auto) 0.8 Lymph # (Auto) 1.8 Alfalfa # (Auto) 0.8 Eos # (Auto) 0.3 Baso # (Auto) 0.1 Abs Immat Gran (auto) 0.06 H Absolute Neuts (auto) 10.0 H Absolute Nucleated RBC 0.000 Nucleated RBC % (auto) 0.0 D-Dimer High Sensitivty VBG pH 7.36 VBG pCO2 72 VBG pO2 105 VBG HCO3 41 H VBG O2 Saturation 97.0 VBG Base Excess 12.5 Anion Gap 15 Estim Creat Clear Calc 86.6 Estimated GFR > 60 Random Glucose 233 H Lactic Acid 1.3 Calcium 10.0 Magnesium 1.6 Iron 31 TIBC 440 H % Saturation 7 L Unsat Iron Binding 409 B-Natriuretic Peptide < 10 TSH 1.02 Free T4 1.07 Urine Color Urine Appearance Urine pH Ur Specific [place] Urine Protein Urine Glucose (UA) Urine Ketones Urine Blood Urine Nitrite Ur Leukocyte Esterase Urine RBC Urine WBC Ur Squamous Epith Cells Urine Bacteria Hyaline Casts Influenza Type A (PCR) NEGATIVE Influenza Type B (PCR) NEGATIVE RSV RNA Qual (PCR) NEGATIVE SARS-CoV-2 RNA (RT-PCR) NEGATIVE 04/01/25 04/01/25 04/02/25 14:25 15:10 04:10 MCV 78.9 L MCH 23.1 L MCHC 29.3 L RDW 17.8 H Plt Count 401 H MPV 9.5 Immature Gran % (Auto) 0.6 H Neut % (Auto) 87.7 H Lymph % (Auto) 7.2 L Alfalfa % (Auto) 4.3 Eos % (Auto) 0.0 Baso % (Auto) 0.2 Lymph # (Auto) 1.0 L Alfalfa # (Auto) 0.6 Eos # (Auto) 0.0 Baso # (Auto) 0.0 Abs Immat Gran (auto) 0.09 H Absolute Neuts (auto) 12.2 H Absolute Nucleated RBC 0.000 Nucleated RBC % (auto) 0.0 D-Dimer High Sensitivty < 150 VBG pH VBG pCO2 VBG pO2 VBG HCO3 VBG O2 Saturation VBG Base Excess Anion Gap 14 Estim Creat Clear Calc 104.9 Estimated GFR > 60 Random Glucose 134 H Lactic Acid Calcium 9.6 Magnesium Iron TIBC % Saturation Unsat Iron Binding B-Natriuretic Peptide TSH Free T4 Urine Color Yellow Urine Appearance Turbid Urine pH 8.0 Ur Specific [place] 1.015 Urine Protein Negative Urine Glucose (UA) Negative Urine Ketones Negative Urine Blood Negative Urine Nitrite Negative Ur Leukocyte Esterase Trace H Urine RBC 0-2 Urine WBC 0-5 Ur Squamous Epith Cells 3-5 Urine Bacteria None Seen Hyaline Casts 0-2 Influenza Type A (PCR) Influenza Type B (PCR) RSV RNA Qual (PCR) SARS-CoV-2 RNA (RT-PCR) Assessment and Plan (1) Hypoxia: Status: Acute Plan 64 yo female with PMH COPD/ emphysema, tobacco dependence 25 cigs per day, Home O2 dependent, pulmonary nodules, kidney ablation, cervical radiculopathy, TIA, GERD, NIDDM, depression/anxiety presented to ED with worsening SOB and productive cough over the last three days. Acute hypoxic respiratory failure secondary to pneumonia Chest CT showing near-complete resolution of prior right lower lobe pneumonia Admitted on Hi Flow 50L 45%, wean as tolerated Continue methylprednisolone DuoNebs Continue Rocephin and azithromycin COPD exacerbation, Emphysema Duonebs Wean O2 as tolerated Budesonide MG 2GMS IV X1 Pulmonary consult placed Tobacco dependence Pt counsled on benefits of smoking cessation Pt has failed chantix and other treatments in the past Nicotine patch initiated SI, Depression Pt has been expressing not wanting to live recently with no plan 1:1 placed Psychiatric consult ordered Check Vitamin D Level Constipation Dulcolax Miralax scheduled Senna HS CT neg for ileus or bowel obstruction ? Early dementia, poor recall and memory hx of dementia in family OT consulted for MOCA, if positive, pt can follow with neuro as an outpatinet HEAD CT pending Neuro exam otherwise reassuring DVT prophylaxis: lovenox Full Code Quality Stroke Does the patient have a stroke diagnosis?: No Reason for No Anti-thrombotic by Day Two: N/A - Med Ordered VTE Prior VTE?: No VTE Risk Level:: Medical - moderate - high VTE Device Contraindication: N/A - Device Ordered VTE Drug Contraindication: N/A - Med Ordered
[2025-04-02] MEDS: 0.9 % Sodium Chloride Flush 3 ML SYRINGE IVFLUSH ×2 (16:22→22:38)
[2025-04-02 20:24] LABS: Glucose, Whole Blood 256 mg/dL (60-115)
[2025-04-02] MEDS: Aspirin Enteric Coated 81 MG TABLET.DR PO (22:31)
[2025-04-03 03:14] VITALS: BP 122/55; PULSE 90; RESP 18; TEMP 36.2; O2SAT 90
[2025-04-03 07:07] VITALS: BP 139/63; PULSE 82; RESP 20; TEMP 36.3; O2SAT 99
[2025-04-03] MEDS: 0.9 % Sodium Chloride Flush 3 ML SYRINGE IVFLUSH (10:23)
[2025-04-03] MEDS: Nicotine 21 MG PATCH.TD24 TRANSDERMA (10:24)
--- NOTE | 2025-04-03 10:37 | MHC.CM.PN ---
PT MEDICALLY CLEARED FOR DC HOME W/RESUMP OF HOME O2 W/[facility] AND PENDING CLEARANCE BY [facility], PT'S FOR TRANSPORT.
--- NOTE | 2025-04-03 10:51 | P.DS_ITS ---
DS: Providers Provider Date of Service: 04/03/25 Date of admission: 04/01/25 18:19 Date of discharge: 04/03/25 Primary care physician: Magalie Nicolas MD Consults: 04/01/25 18:29 Consult to Pulmonology Routine Consulting Provider: [facility] [place] Pulmonology Services Reason for consultation: acute hypoxic respiratory failure, PNA, COPD 04/01/25 19:47 Consult to Psychiatry Routine Consulting Provider: [facility] [place] Psych Covering Reason for consultation: suicidal thoughts, depression/ anxiety over relationship with estranged son Has provider been notified: No DS: Diagnosis Discharge Diagnosis (1) Hypoxia: Status: Acute DS: Summary Hospital Course Hospital Course: History and physical as per admitting provider. Pt is a 64 yo female with PMH COPD/ emphysema, tobacco dependence 25 cigs per day, Home O2 dependent, pulmonary nodules, kidney ablation, cervical radiculopathy, TIA, GERD, NIDDM, depression/anxiety presents to ED with worsening SOB and productive cough over the last three days. Pt completing ABX for pneumonia which currently shows near resolve on CT of the chest. Pt has been smoking more, now up to 25 cigarettes a day as she is dealing with increased depression and anxiety over her relationship with her estranged son. Pt has been stating at home that she does not want to live anymore and said the same today. Pt's SO present for interview and was able to confirm this. In addition, SO offers that pt has been more forgetful and will forget to place her oxygen back on after smoking a cigarette. In addition, pt is getting up hourly during the night to smoke as well. Pt also noted to have slow recall and poor short term memory today on exam. SO state pt has been like this more so over the last few days and pt has family hx of dementia. Pt does follow with neurologist for her hx of TIA. Pt and SO deny any recent falls or injury. Pt does not use NMV at home. Patient also reported to ED provider that she had not had a recent bowel movement and is complaining of diffuse abdominal pain. Patient was no longer having this complaint on admission interview. CT of the abdomen and pelvis with contrast noted moderate colonic stool burden with a nonspecific prominent gastric distention. There was no evidence of obstructive or acute inflammatory changes in the GI or tract. UA negative. 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 Patient required high-flow oxygen 50 L 45% and satting 93%. Respiratory therapy closely following. Work-up in the ED involved DDIMER which was negative, CT chest which noted near-complete resolution of prior right lower lobe pneumonia and no new progressive acute airspace disease with stable multiple nonspecific right middle and lower lobe pulmonary nodules. VBG 7.36, 72, 105, 41. Patient does follow with a second helper in [place] and was last seen approximately 6 months prior. Patient was resumed on ceftriaxone and azithromycin IV. Patient received Solu-Medrol and 2 g of magnesium. Patient's, tachypnea and tachycardia were improving. Patient is seen, somewhat tremulous after the albuterol. Patient being admitted for acute hypoxic respiratory failure, COPD exacerbation, resolving right lower lobe pneumonia, depression with recent suicidal thoughts with no plan, recent worsening recall with memory loss and constipation. 64-year-old woman treated for acute on chronic hypoxic respiratory failure secondary to pneumonia and COPD. Patient treated initially on high-flow weaned down to regular oxygen, she is on 2-4 L at home. She was treated with IV steroids, scheduled DuoNebs and Rocephin and azithromycin. She did receive doses of magnesium as well. At this point patient is stable she will complete a short tear steroid burst and we will continue her azithromycin that she takes at home and ceftin for a few days. Patient should continue her regular oxygen dose at home. Tobacco dependence. Counseled on importance of smoking cessation or at least cutting down as she reported that she smokes about 25 cigarettes a day. History of depression, SI. Had sitter during hospitalization. Reports to me at this point that she does not have any suicidal ideation. Care team evaluation Constipation. Treated with laxatives. CT negative for ileus or bowel obstruction sign Early dementia. Does have some poor recall and memory issues, history of dementia in her family. Head CT normal. Neuro exam otherwise reassuring. Status post [place] 04/14 noting cognitive impairments. Live with her who is her healthcare proxy. Time Attestation Discharge Coordination Time (in mins): 40 Quality: Safe Use of Opioids Does Pt have an Active Cancer Diagnosis on the Problem List?: No Quality: Stroke Does the patient have a stroke diagnosis?: No Physical Exam Exam: Exam: Appearing in no acute distress head is normocephalic atraumatic eyes pupils are PERRLA sclera is anicteric mouth throat mucous membranes are intact and moist neck is supple no lymphadenopathy, no JVD noted lung sounds are clear to auscultation heart regular rate rhythm, clear S1, S2 positive bowel sounds, abdomen is soft, nontender neuro patient is alert x3, no focal deficits Vital Signs: Vital Signs: Last Vital Signs Temp 97.4 F 04/03/25 07:07 Pulse 82 04/03/25 07:07 Resp 20 04/03/25 07:07 BP 139/63 04/03/25 07:07 Pulse Ox 99 04/03/25 07:07 O2 Del Method Nasal Cannula 04/03/25 07:07 O2 Flow Rate 4 04/03/25 07:07 Oxygen Flow Rate 2 04/01/25 13:10 BMI result Body Mass Index 27.3 DS: Data Data Completed and Pending Labs on day of discharge: Laboratory Results - last 24 hr 04/02/25 20:21 POC Glucose 256 H Preliminary micro results at discharge 04/01/25 13:53 Blood Culture - Preliminary Blood - Venous No growth after 24 hours. 04/01/25 13:52 Blood Culture - Preliminary Blood - Venous No growth after 24 hours. Discharge Plan Discharge Anticipated Discharge Date/Time: 04/03/25 10:45 Patient Disposition: Home, Self-Care Discharge Diagnosis: Pneumonia Referrals: Magalie Nicolas MD [Primary Care Provider, Internal Medicine] - 1 Week Discharge Medications: New prednisone 10 mg tablet 40 mg PO DIRECTED Qty: 16 0RF Rx Instructions: take 40 mg daily for 4 days cefuroxime axetil 500 mg tablet 500 mg PO BID Qty: 8 0RF Continued (DME) lancets [FreeStyle Lancets] 28 gauge misc See Rx Instructions .Route Qty: 100 5RF Rx Instructions: As directed twice a day AC (DME) FreeStyle Lite Strips Strip See Rx Instructions .Route Qty: 100 0RF Rx Instructions: check fasting blood sugar twice a day before meals (DME) FreeStyle Cristian 2 [place] Misc See Rx Instructions .Route Qty: 1 0RF Rx Instructions: test blood sugar 4 times per day rosuvastatin 5 mg tablet 5 mg PO DAILY Qty: 90 1RF baclofen 10 mg tablet 10 mg PO TID 30 Days Qty: 90 6RF gabapentin 800 mg tablet 800 mg PO TID 30 Days Qty: 90 6RF metformin 1,000 mg tablet 1,000 mg PO BID Qty: 180 3RF losartan 50 mg tablet 50 mg PO DAILY Qty: 90 1RF metoclopramide HCl [Reglan] 10 mg tablet 10 mg PO QIDACHS Qty: 180 6RF famotidine 40 mg tablet 40 mg PO BEDTIME Qty: 90 2RF cholecalciferol (vitamin D3) 50 mcg (2,000 unit) capsule 50 mcg PO DAILY Qty: 90 1RF amlodipine 5 mg tablet 5 mg PO DAILY Qty: 90 1RF magnesium oxide 400 mg magnesium capsule 400 mg PO BEDTIME Qty: 30 0RF (DME) FreeStyle Cristian 2 Sensor Kit See Rx Instructions .Route Qty: 6 3RF Rx Instructions: Test blood sugar 4 times per day psyllium husk [Fiber Laxative (psyllium husk)] 0.52 gram capsule 1.04 g PO BID Januvia 100 mg tablet 100 mg PO DAILY ferrous sulfate 324 mg (65 mg iron) tablet,delayed release (DR/EC) 324 mg PO DAILY bisacodyl [Dulcolax (bisacodyl)] 5 mg tablet,delayed release (DR/EC) 10 mg PO BEDTIME PRN (Reason: Constipation) azithromycin 500 mg tablet 500 mg PO TUTHSA Trelegy Ellipta 100-62.5-25 mcg blister with device 1 ea INHALATION DAILY ipratropium-albuterol 0.5 mg-3 mg(2.5 mg base)/3 mL solution for nebulization 3 ml inhalation Q6H PRN (Reason: wheezing) nicotine 21 mg/24 hr Patch 24 Hour 21 mg transdermal DAILY Qty: 7 0RF aspirin [Adult Low Dose Aspirin] 81 mg tablet,delayed release (DR/EC) 81 mg PO BEDTIME (DME) blood-glucose meter [FreeStyle Lite Meter] Kit See Rx Instructions .Route Qty: 1 0RF Rx Instructions: As directed twice a day before meals simethicone [Anti-Gas Ultra Strength] 180 mg capsule 180 mg PO QID Qty: 120 6RF esomeprazole magnesium 40 mg capsule,delayed release(DR/EC) 40 mg PO DAILY Qty: 30 6RF Discharge Orders: Discharge Order (Routine); Ordered 04/03/25 Ordered By: Jessica Khurram Diet: Advance to usual diet Activity on Discharge: As tolerated Stand Alone Forms: Patient Portal Discharge page Print Language: Persian Care Plan Goals: Complete steroids and ceftin Continue baseline oxygen Health Concerns: Acute on chronic hypoxic respiratory failure secondary to pneumonia Plan of Treatment: Follow-up with primary care provider as needed Take all medications as prescribed Assessment: See discharge summary
[2025-04-03 11:13] VITALS: BP 141/70; PULSE 90; RESP 17; TEMP 36.6; O2SAT 97
--- NOTE | 2025-04-03 13:59 | MHC.CARE ---
Pt does not meet the criteria for a higher level of care and will D/C home. Hospitalist in agreement with disposition.
== END 2025-04-03 15:05 | disposition home or self-care (01) | DRG 139 ==
LOC: HO.ED 18:38 → HO.EDOVER 18:47 → HO.IMC 04-02 19:05
PROVIDERS: Physician Assistant; Admitting Provider Nurse Practitioner Family; Emergency Provider Emergency Medicine; PCP Internal Medicine; Visit Provider Nurse Practitioner Acute Care
DX: J18.9 Pneumonia, unspecified organism (principal); J96.21 Acute and chronic respiratory failure with hypoxia; R45.851 Suicidal ideations; F03.90 Unspecified dementia, unspecified severity, without behavioral disturbance, psychotic disturbance, mood disturbance, and anxiety; F32.A Depression, unspecified; Z99.81 Dependence on supplemental oxygen; J43.9 Emphysema, unspecified; K59.00 Constipation, unspecified; F17.210 Nicotine dependence, cigarettes, uncomplicated; Z20.822 Contact with and (suspected) exposure to COVID-19; Z71.6 Tobacco abuse counseling; Z79.82 Long term (current) use of aspirin; Z79.84 Long term (current) use of oral hypoglycemic drugs; Z79.899 Other long term (current) drug therapy
CPT/HCPCS: 36415; 70450; 71046; 71260; 74177; 80048; 81001; 82803; 82947; 83540; 83605; 83735; 83880; 84439; 84443; 84484; 85025; 85379; 87040; 87637; 93005; 94640; 97166; 99285; J0456; J0696; J1650; J2250; J2919; J3475; Q9967; S9485

== ENCOUNTER → 2025-04-01 13:10 | Outpatient (BNV) | payer OTHER, SELFPAY | PROVIDERS: Emergency Provider Emergency Medicine; PCP Internal Medicine; Visit Provider Radiology Diagnostic Radiology | DX: K59.00 Constipation, unspecified (principal); R91.1 Solitary pulmonary nodule; J98.11 Atelectasis | CPT/HCPCS: 71046; 71260; 74177 ==

== ENCOUNTER → 2025-04-01 13:10 | Outpatient (BNV) | payer OTHER, SELFPAY | PROVIDERS: Admitting Provider Nurse Practitioner Family; Emergency Provider Emergency Medicine; PCP Internal Medicine; Visit Provider Internal Medicine Cardiovascular Disease | DX: R06.02 Shortness of breath (principal) | CPT/HCPCS: 93010 ==

== ENCOUNTER → 2025-04-01 18:19 | Outpatient (BNV) | payer OTHER, SELFPAY | PROVIDERS: Admitting Provider Nurse Practitioner Family; Emergency Provider Emergency Medicine; PCP Internal Medicine; Visit Provider Nurse Practitioner Family | DX: R09.02 Hypoxemia (principal) | CPT/HCPCS: 99223; 99232; 99239 ==

== ENCOUNTER → 2025-04-01 18:19 | Outpatient (BNV) | payer OTHER, SELFPAY | PROVIDERS: Admitting Provider Nurse Practitioner Family; Emergency Provider Emergency Medicine; PCP Internal Medicine; Visit Provider Hospitalist | DX: J44.1 Chronic obstructive pulmonary disease with (acute) exacerbation (principal); J96.01 Acute respiratory failure with hypoxia; F17.210 Nicotine dependence, cigarettes, uncomplicated; J96.12 Chronic respiratory failure with hypercapnia; J96.21 Acute and chronic respiratory failure with hypoxia | CPT/HCPCS: 99223 ==

== ENCOUNTER 2025-04-03 15:02 | Outpatient (AMB) | payer OTHER, SELFPAY ==
--- NOTE | 2025-04-03 15:04 | MHC.OFFVIS ---
Vital Signs 04/03/25 15:06 Height 4 ft 9 in BMI Reason not done Patient refused/unable BP 136/60 Blood Pressure Location Lt brachial Position Sitting Pulse 86 Intake Visit Reasons: Eval after restarting Statin Intake Note: Maria Elena presents in the office as as follow up for restarting statins. CC: States she is having constipation and very hard BLACK stools. She states that she had a BM in the hospital room today. They let her out because of the appt today. 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 Allergies amoxicillin (AMOXICILLIN) Allergy (Intermediate, Verified 04/03/25 15:06) RASH HPI HPI Eval after restarting Statin: Details: Assessment & Plan (1) Gastroparesis: Code(s): K31.84 - Gastroparesis Category: Medical (2) GERD (gastroesophageal reflux disease): Code(s): K21.9 - Gastro-esophageal reflux disease without esophagitis Category: Medical Qualifiers: Esophagitis presence: without esophagitis Qualified Code(s): K21.9 - Gastro-esophageal reflux disease without esophagitis Plan Her current GI regimen consists of pantoprazole 40 mg twice a day, metoclopramide 5 mg 4 times a day and simethicone. She is having some uneveness of her bowels, moving them qod. BUT she does not feel bloated or ill when she does not move them, so I don't think she needs to worry about it unless this becomes more severe. Her abd pain has not returned. Now it is time to restart her statin, as I strongly feel that it was the iron pill that caused her sx. If her sx return she should stop it, but I find this unlikely. We had put off her repeat colonoscopy that was due in 2022 r/t her abd pain, respiratory failure and infections and the renal cancer, but now she feels well enough and is agreeable to scheduling this. Her COPD is controlled and she denies any cardiac problems. There are no prior problems with anesthesia or sedation. No ID problems. NO known FHX crc or polyps. ROV 8 weeks. Orders: Orders Colonoscopy - GI Use Only Today Medications: New peg 3350-electrolytes 236-22.74-6.74 -5.86 gram (Golytely) until fecal effluent is clear; do not exceed a total volume of 2,000 mL 240 mL PO Q10M 4,000 mL 0RF 1 day Z12.11 - Encounter for screening for malignant neoplasm of colon bisacodyl (Dulcolax (bisacodyl)) 10 mg (2 x 5 mg) PO BEDTIME 4 tabs 0RF 2 days esomeprazole magnesium 40 mg PO DAILY 30 caps 6RF Refilled psyllium husk (Fiber Laxative (psyllium husk)) 1.04 grams (2 x 0.52 gram) PO BID 360 caps 3RF simethicone (Anti-Gas Ultra Strength) 180 mg PO QID 120 c REVIEW OF TODAY'S ER WORKUP SO FAR TODAY'S VISIT [facility] Medical History Chronic hypercapnic respiratory failure Mixed dyslipidemia Heavy cigarette smoker History of pneumonia COPD mixed type Gastritis Diabetic gastroparesis Diastolic CHF with preserved left ventricular function, NYHA class 2 Type 2 diabetes mellitus with other diabetic kidney complication Essential hypertension Smoker unmotivated to quit Postlaminectomy syndrome of cervical region Seasonal allergic rhinitis GERD (gastroesophageal reflux disease) Surgical History H/O cervical discectomy History of esophagogastroduodenoscopy (EGD) Hx of colonoscopy Family History Mother Diabetes Sister Diabetes Mental health disorder Brother Diabetes Father HTN (hypertension) Social History Household Members: Significant Other Housing: Other Housing Other:: Mobile home Are you a primary occasional caregiver to a significant other at home: No Do you presently have visiting nurse or other home services: Yes (PCT) 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 Tobacco Use Status: Current everyday Tobacco user Tobacco use type: Cigarette Cigarette Packs Per Day: 1 Cigarettes Per Day: 20.0 Years Smoked: 51 e-Cigarette/Vaping Use: Never Used Second Hand Smoke Exposure: Yes Advance Directives Date on File: 08/02/23 service: No Current occupational status: unemployed and disabled Gender identity: Female Cognitive needs: No Hearing needs: No Vision needs: Yes Review of Systems Const Denies fatigue, Denies fever(s), Denies night sweats, Denies poor appetite and Denies weight loss ENT Reports Normal hearing present, Denies dysphagia, Denies odynophagia, Denies throat swelling and Denies tongue swelling Card Reports dyspnea Resp Reports cough and Reports dyspnea GI Details: Denies abdominal pain, Denies melena, Denies bloating, Denies hematochezia, Reports constipation, Denies GI cramping, Denies dysphagia, Denies excessive flatus, Reports early satiety, Reports heartburn, Denies diarrhea, Denies nausea, Denies odynophagia, Denies vomiting and Denies hematemesis Skin/Breast Denies pruritus, Denies lesions, Denies rash and Denies jaundice Neuro Reports Normal hearing present, Denies Abnormal speech present and Reports memory loss Psych Reports memory loss Endo Denies fatigue Aller/Immun Denies throat swelling and Denies tongue swelling Physical Exam Vital Signs: Last Vital Signs Pulse 86 04/03/25 15:06 BP 136/60 04/03/25 15:06 Const Other: On oxygen N/C General: cooperative, no acute distress, well developed and well groomed Nutritional Appearance: well nourished and obese centrally obese Orientation/consciousness: oriented to person, oriented to place and oriented to time Limitations: No language barrier, wheelchair and other limitations HEENT Head: Yes normocephalic and Yes atraumatic Eyes General: appearance normal, both eyes and all related structures Pupils: Equal, round and reactive pupils present Neck Neck: Yes normal visual inspection and Yes no lymphadenopathy Thyroid: Thyroid normal Resp Effort & Inspection: normal respiratory effort and able to speak in complete sentences Auscultation: wheezes and diminished lung sounds Cardio Rate: regular rate Rhythm: regular rhythm Heart sounds: Normal, physiologic split S2 sound present Peripheral pulses: radial pulses present and posterior tibial pulses present GI Inspection: No distended, No Abdominal panniculus present and Yes obesity Palpation (GI): Soft to palpation, nontender, no guarding, not rigid and No hepatosplenomegaly present Percussion: Yes normal to percussion Auscultation: normal bowel sounds Rectal Exam - Female: deferred Skin General skin exam: no rashes or lesions noted, turgor normal, skin not dry, no jaundice, No spider nevi and no striae Rashes: no rashes Nails: normal Neuro General: oriented to person, oriented to place and oriented to time Cranial nerves: Yes Equal, round and reactive pupils present and Yes Normal hearing present Speech: No Abnormal speech present Extrem General: Yes normal to inspection, No clubbing, No cyanosis and No edema Psych Appearance: grossly normal and well kempt Mental Status: other Speech and movement: Slowed speech present (Psych) Affect: normal affect Attitude: cooperative Thought process: not confabulating and Impoverished thought process present Thought content: Normal thought content present Insight: Limited insight present (Psych) Judgement: Limited judgement present (Psych) Results Reviewed Results Reviewed: REVIEW OF INPATIENT HOSPITALIST DISCHARGE NOTES Hospital Course: History and physical as per admitting provider. Pt is a 64 yo female with PMH COPD/ emphysema, tobacco dependence 25 cigs per day, Home O2 dependent, pulmonary nodules, kidney ablation, cervical radiculopathy, TIA, GERD, NIDDM, depression/anxiety presents to ED with worsening SOB and productive cough over the last three days. Pt completing ABX for pneumonia which currently shows near resolve on CT of the chest. Pt has been smoking more, now up to 25 cigarettes a day as she is dealing with increased depression and anxiety over her relationship with her estranged son. Pt has been stating at home that she does not want to live anymore and said the same today. Pt's SO present for interview and was able to confirm this. In addition, SO offers that pt has been more forgetful and will forget to place her oxygen back on after smoking a cigarette. In addition, pt is getting up hourly during the night to smoke as well. Pt also noted to have slow recall and poor short term memory today on exam. SO state pt has been like this more so over the last few days and pt has family hx of dementia. Pt does follow with neurologist for her hx of TIA. Pt and SO deny any recent falls or injury. Pt does not use NMV at home. Patient also reported to ED provider that she had not had a recent bowel movement and is complaining of diffuse abdominal pain. Patient was no longer having this complaint on admission interview. CT of the abdomen and pelvis with contrast noted moderate colonic stool burden with a nonspecific prominent gastric distention. There was no evidence of obstructive or acute inflammatory changes in the GI or tract. UA negative. 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 Patient required high-flow oxygen 50 L 45% and satting 93%. Respiratory therapy closely following. Work-up in the ED involved DDIMER which was negative, CT chest which noted near-complete resolution of prior right lower lobe pneumonia and no new progressive acute airspace disease with stable multiple nonspecific right middle and lower lobe pulmonary nodules. VBG 7.36, 72, 105, 41. 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 Patient was resumed on ceftriaxone and azithromycin IV. Patient received Solu-Medrol and 2 g of magnesium. Patient's, tachypnea and tachycardia were improving. Patient is seen, somewhat tremulous after the albuterol. Patient being admitted for acute hypoxic respiratory failure, COPD exacerbation, resolving right lower lobe pneumonia, depression with recent suicidal thoughts with no plan, recent worsening recall with memory loss and constipation. 64-year-old woman treated for acute on chronic hypoxic respiratory failure secondary to pneumonia and COPD. Patient treated initially on high-flow weaned down to regular oxygen, she is on 2-4 L at home. She was treated with IV steroids, scheduled DuoNebs and Rocephin and azithromycin. She did receive doses of magnesium as well. At this point patient is stable she will complete a short tear steroid burst and we will continue her azithromycin that she takes at home and ceftin for a few days. Patient should continue her regular oxygen dose at home. Tobacco dependence. Counseled on importance of smoking cessation or at least cutting down as she reported that she smokes about 25 cigarettes a day. History of depression, SI. Had sitter during hospitalization. Reports to me at this point that she does not have any suicidal ideation. Care team evaluation Constipation. Treated with laxatives. CT negative for ileus or bowel obstruction sign Early dementia. Does have some poor recall and memory issues, history of dementia in her family. Head CT normal. Neuro exam otherwise reassuring. Status post [place] 04/14 noting cognitive impairments. Live with her who is her healthcare proxy. Chest CT 04/01/2025 Findings: Heart size is normal with trace pericardial effusion. Prominent coronary artery and aortic calcifications. No thoracic aortic aneurysm or dissection. Visualized thyroid gland appears unremarkable. Stable multiple nonenlarged nonspecific mediastinal lymph nodes. No lymphadenopathy. Interval near-complete resolution of irregular airspace opacity in the right lower lobe. Right lower lobe and lingular atelectasis and/or scarring. Stable 4 mm noncalcified nodule in the right middle lobe. Stable multiple 7 mm or less in size noncalcified right lower lobe nodules. No pleural effusion or pneumothorax. Please see the separate report for the CT abdomen and pelvis. The bones are intact. IMPRESSION: 1. Near-complete resolution of prior right lower lobe pneumonia. No new or progressive acute airspace disease. 2. Stable multiple nonspecific right middle and lower lobe pulmonary nodules. CT ABDOMEN AND PELVIS 04/01/2025 Findings: There is motion artifact. Please see the separate report for the CT chest. An irregular complex exophytic lesion in the right kidney is again identified currently measuring 2.6 x 3.0 cm on axial image 284, series 7 compared with 2.9 x 3.4 cm on prior study. No hydronephrosis or significant perinephric edema. No urolithiasis. No acute abnormalities in the remaining solid organs. No large calcified gallstone. No AAA. No bowel obstruction, pneumoperitoneum, or pneumatosis. Large amount of fluid and food debris in the stomach could be from a recent meal or gastroparesis. No ascites or organized fluid collection. No significant mesenteric or paracolic edema. Moderate amount of stool throughout the colon. The appendix is identified. No acute appendicitis. Small uterine calcifications are likely related to a fibroid. Urinary bladder unremarkable. The bones are intact. IMPRESSION: 1. Motion affected study. 2. No obstructive or acute inflammatory changes in the gastrointestinal and genitourinary tracts. 3. Moderate colonic stool burden. Nonspecific prominent gastric distention. 4. Known right renal tumor with postablative changes is stable to slightly smaller in size compared to prior study. Assessment & Plan Assessment & Plan (1) Chronic idiopathic constipation: Code(s): K59.04 - Chronic idiopathic constipation Category: Medical (2) Pericardial effusion: Comment: on chest CT 03/2025 Code(s): I31.39 - Other pericardial effusion (noninflammatory) Category: Medical Plan She is here today with her significant other who is supportive. History of Present Illness - The patient is a 64 year old female presenting with respiratory difficulties and bowel movement issues. She was just discharged as an inpatient for increasing shortness of breath and was released with 2 antibiotics for presumed pneumonia. She had a small pericardial effusion that did not appear to be addressed. - She has been experiencing constipation characterized by dark and hard stools. - Medications include metoclopramide and recently resumed Crestor without adverse effects. - Previous Linzess use was stopped due to prior diarrhea at the 145 micro g dose but we will restart it at the 72 micro g dose. - Concurrent pneumonia diagnosis, which is improving, still remains a consideration, she has severe chronic COPD in his oxygen dependent. -CALL WAS PLACED TO THE HOSPITALIST SERVICE TO SEE WHAT THEIR THOUGHTS WERE ON THE PERICARDIAL EFFUSION. I am awaiting a call back. Patient was informed and verbally consented to the use of an ambient scribe for clinic note documentation during this visit. Patient Instructions - Restart Linzess at 72 micro g instead of 145 micro g cautiously to help with constipation without causing diarrhea. - referring her to cardiology for possible debbie cardial effusion as this was not addressed during her admission. This may be a function of her COPD but at times this can be an early warning sign of impending [place] and in this diabetic patient was recent renal cancer mission be overlooked. - Continue taking Crestor and monitor any new gastrointestinal side effects. - Follow the prescribed antibiotics course for pneumonia. Orders: Referrals Cardiology Referral I31.39 - Other pericardial effusion (noninflammatory) Medications: New linaclotide (Linzess) 72 mcg PO QAM 30 caps 6RF K59.04 - Chronic idiopathic constipation Patient Instructions: Maria Elena [facility] GI MEDICATIONS 1.?? Metoclopramide 10mg qid 2.?? Esomeprazole 40mg daily 3.?? Famotidine 40mg at bedtime 4.?? Fiber 5.?? Simethicone up to 4 times a day 6.?? Restarting Linzess 72mcg in the morning with a glass of water 7.?? ROV 2 weeks. Coding Level of Care Code Est Pt Level 4 (58099) Diagnoses Chronic idiopathic constipation K59.04 Pericardial effusion I31.39 Time Spent (min) 40
[2025-04-03 15:06] VITALS: BP 136/60; PULSE 86
== END 2025-04-03 15:47 | disposition home or self-care (01) ==
LOC: HO.HGI 15:03
PROVIDERS: PCP Internal Medicine; Visit Provider Nurse Practitioner
DX: K59.04 Chronic idiopathic constipation (principal); I31.39 Other pericardial effusion (noninflammatory)
CPT/HCPCS: 99214

== ENCOUNTER → 2025-04-03 15:02 | Outpatient (BNVA) | payer OTHER, SELFPAY | PROVIDERS: PCP Internal Medicine; Visit Provider Nurse Practitioner | DX: K31.84 Gastroparesis (principal); K21.9 Gastro-esophageal reflux disease without esophagitis; K59.04 Chronic idiopathic constipation; I31.39 Other pericardial effusion (noninflammatory) | CPT/HCPCS: 99212 ==

== ENCOUNTER 2025-04-17 14:42 | Outpatient (AMB) | payer OTHER, SELFPAY ==
[2025-04-17 14:44] VITALS: BP 140/53; PULSE 113; O2SAT 87; BMI 23.3
--- NOTE | 2025-04-17 14:44 | A.OFFVIS_ITS ---
Vital Signs 04/17/25 14:44 Height 4 ft 9 in Weight 107 lb 9.369 oz BMI 23.3 BP 140/53 H Blood Pressure Location Lt brachial Position Sitting Pulse 113 H Pulse Oximetry (%) 87 L Intake Visit Reasons: 2 week f/u Intake Note: Maria Elena presents in the office as as follow up of constipation. CC: Patient c/o stomach pain and a littl bit of nausea. Per her partner she has no been eating as good as before. 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 History of Present Illness - The patient is a 64 year old female presenting with respiratory difficulties and bowel movement issues. She was just discharged as an inpatient for increasing shortness of breath and was released with 2 antibiotics for presumed pneumonia. She had a small pericardial effusion that did not appear to be addressed. - She has been experiencing constipation characterized by dark and hard stools. - Medications include metoclopramide and recently resumed Crestor without adverse effects. - Previous Linzess use was stopped due to prior diarrhea at the 145 micro g dose but we will restart it at the 72 micro g dose. - Concurrent pneumonia diagnosis, which is improving, still remains a consideration, she has severe chronic COPD in his oxygen dependent. -CALL WAS PLACED TO THE HOSPITALIST SERVICE TO SEE WHAT THEIR THOUGHTS WERE ON THE PERICARDIAL EFFUSION. I am awaiting a call back. Patient was informed and verbally consented to the use of an ambient scribe for clinic note documentation during this visit. Patient Instructions - Restart Linzess at 72 micro g instead of 145 micro g cautiously to help with constipation without causing diarrhea. - referring her to cardiology for possible debbie cardial effusion as this was not addressed during her admission. This may be a function of her COPD but at times this can be an early warning sign of impending SC and in this diabetic patient was recent renal cancer mission be overlooked. - Continue taking Crestor and monitor any new gastrointestinal side effects. - Follow the prescribed antibiotics course for pneumonia. Orders: Referrals Cardiology Referral I31.39 - Other pericardial effusion (noninflammatory) Medications: New linaclotide (Linzess) 72 mcg PO QAM 30 caps 6RF K59.04 - Chronic idiopathic constipation Patient Instructions: Maria Elena Kingston GI MEDICATIONS 1.?? Metoclopramide 10mg qid 2.?? Esomeprazole 40mg daily 3.?? Famotidine 40mg at bedtime 4.?? Fiber 5.?? Simethicone up to 4 times a day 6.?? Restarting Linzess 72mcg in the morning with a glass of water 7.?? ROV 2 weeks. TODAY'S VISIT SHE IS HERE TODAY WITH HER SIGNIFICANT OTHER WHO IS HELPFUL. [facility]LY [facility] Medical History COPD (chronic obstructive pulmonary disease) Chronic hypercapnic respiratory failure Mixed dyslipidemia Heavy cigarette smoker History of pneumonia COPD mixed type Gastritis Diabetic gastroparesis Diastolic CHF with preserved left ventricular function, NYHA class 2 Type 2 diabetes mellitus with other diabetic kidney complication Essential hypertension Smoker unmotivated to quit Postlaminectomy syndrome of cervical region Seasonal allergic rhinitis GERD (gastroesophageal reflux disease) Surgical History H/O cervical discectomy History of esophagogastroduodenoscopy (EGD) Hx of colonoscopy Family History Mother Diabetes Sister Diabetes Mental health disorder Brother Diabetes Father HTN (hypertension) Social History Household Members: Significant Other Housing: Other Housing Other:: Mobile home Are you a primary healthcare associate to a significant other at home: No Do you presently have visiting nurse or other home services: Yes (PCT) 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 Tobacco Use Status: Current everyday Tobacco user Tobacco use type: Cigarette Cigarette Packs Per Day: 1 Cigarettes Per Day: 20.0 Years Smoked: 51 e-Cigarette/Vaping Use: Never Used Second Hand Smoke Exposure: Yes Advance Directives Date on File: 08/02/23 service: No Current occupational status: unemployed and disabled Gender identity: Female Cognitive needs: No Hearing needs: No Vision needs: Yes Review of Systems Const Reports fatigue, Denies fever(s), Denies night sweats, Reports poor appetite and Denies weight loss Eyes Details: glasses Reports requires corrective lenses ENT Reports Normal hearing present, Denies dental pain, Denies dysphagia, Denies hearing loss, Denies mouth pain, Denies odynophagia, Denies throat swelling, Denies tongue swelling and Reports other (Dentition adequate) Card Reports dyspnea on exertion Resp Reports dyspnea on exertion GI Details: Denies abdominal pain, Denies melena, Denies bloating, Denies hematochezia, Reports constipation, Denies GI cramping, Denies dysphagia, Denies excessive flatus, Reports early satiety, Reports heartburn, Denies diarrhea, Denies nausea, Denies odynophagia, Denies vomiting and Denies hematemesis Skin/Breast Denies pruritus, Denies lesions, Denies rash and Denies jaundice Neuro Reports Normal hearing present and Denies Abnormal speech present Psych Reports abnormal sleep pattern Endo Reports fatigue Aller/Immun Denies throat swelling and Denies tongue swelling Physical Exam Vital Signs: Last Vital Signs Pulse 113 H 04/17/25 14:44 BP 140/53 H 04/17/25 14:44 Pulse Ox 87 L 04/17/25 14:44 BMI result Body Mass Index 23.3 Const General: cooperative, no acute distress, well developed and well groomed Nutritional Appearance: well nourished and obese centrally obese Orientation/consciousness: oriented to person, oriented to place and oriented to time Limitations: No language barrier, physical limitations and other limitations HEENT Head: Yes normocephalic and Yes atraumatic Eyes General: appearance normal, both eyes and all related structures Pupils: Equal, round and reactive pupils present Neck Neck: Yes normal visual inspection and Yes no lymphadenopathy Thyroid: Thyroid normal Resp Effort & Inspection: normal respiratory effort and able to speak in complete sentences Auscultation: clear to auscultation bilaterally Cardio Rate: regular rate Rhythm: regular rhythm Heart sounds: Normal, physiologic split S2 sound present Peripheral pulses: radial pulses present and posterior tibial pulses present GI Inspection: No distended, No Abdominal panniculus present and Yes obesity Palpation (GI): Soft to palpation, nontender, no guarding, not rigid and No hepatosplenomegaly present Percussion: Yes normal to percussion Auscultation: normal bowel sounds Rectal Exam - Female: deferred Skin General skin exam: no rashes or lesions noted, turgor normal, skin not dry, no jaundice, No spider nevi and no striae Rashes: no rashes Nails: normal Neuro General: oriented to person, oriented to place and oriented to time Cranial nerves: Yes Equal, round and reactive pupils present and Yes Normal hearing present Speech: No Abnormal speech present Extrem General: Yes normal to inspection, No clubbing, No cyanosis and No edema Psych Appearance: grossly normal and disheveled Mental Status: other Speech and movement: Slowed speech present (Psych) Affect: normal affect Attitude: cooperative Thought process: not confabulating and Impoverished thought process present Thought content: Normal thought content present Insight: Limited insight present (Psych) Judgement: Limited judgement present (Psych) Assessment & Plan Assessment & Plan (1) Gastroparesis: Code(s): K31.84 - Gastroparesis Category: Medical (2) GERD (gastroesophageal reflux disease): Code(s): K21.9 - Gastro-esophageal reflux disease without esophagitis Category: Medical Qualifiers: Esophagitis presence: without esophagitis Qualified Code(s): K21.9 - Gastro-esophageal reflux disease without esophagitis (3) Chronic idiopathic constipation: Code(s): K59.04 - Chronic idiopathic constipation Category: Medical (4) Fatigue: Code(s): R53.83 - Other fatigue Category: Medical Plan SHE IS HERE TODAY WITH HER SIGNIFICANT OTHER WHO IS HELPFUL. Her current GI regimen consists of metoclopramide 10 mg 4 times a day, as omeprazole 40 mg in the morning and famotidine at night, fiber therapy and simethicone. At the last visit we added Linzess 72 micro g. - The patient is a 64-year-old female presenting with complaints of decreased appetite and for follow-up for diabetic gastroparesis, constipation, GERD and bloating. - Her reduced appetite is influenced by changes in her respiratory condition along with her gastroparesis. She is already at the maximum dose of Reglan 10 mg 4 times a day, so instead I recommend that she make healthful snacks and eat smaller more frequent meals. This also would help with the work of breathing that is frequently challenging when a COPD patient tries to eat a large meal. - No confirmed diagnosis of right-sided heart failure or pericardial effusion exists despite its presence in past records, and she has not undergone comprehensive cardiac evaluation. I have recommended that they call our cardiology service as it appears that they had an appointment in March that was missed. - The recurrence of upper abdominal discomfort is associated with dietary choices, particularly after eating fatty foods like ribs. - She restarted Linzess 72 micro g, which has improved bowel regularity and she does not feel we need to make any dose adjustment. - Her medical history includes renal cancer with successful ablation and recent necessity for supplemental oxygen due to worsening of COPD. - The patient struggles with hypoxia and hypercapnia, which compounds her fatigue and influences her appetite. Her significant other says that she is not eating as well as she used to. This is likely multifactorial and I do not think this anything for we can do from a GI standpoint. I do encourage her to follow-up with cardiology as this could be contributing to her feeling of early satiety if she does not fact have right- sided heart failure. I do not see any echocardiogram on file for her so I am uncertain how this diagnosis got to her history. I think it really needs to be clarified. She would not be eligible for any GI procedures given her severe respiratory status as the risk would be too high for sedation. Return office visit in 6 months Orders: Orders TSH reflex Free T4 Today K59.04 - Chronic idiopathic constipation, R53.83 - Other fatigue Medications: Refilled famotidine 40 mg PO BEDTIME 90 tabs 2RF metoclopramide HCl (Reglan) 10 mg PO QIDACHS 180 tabs 6RF K31.84 - Gastroparesis esomeprazole magnesium 40 mg PO DAILY 30 caps 6RF Coding Level of Care Code Est Pt Level 3 (87984) Diagnoses Gastroparesis K31.84 Gastroesophageal reflux disease without esophagitis K21.9 Esophagitis presence: without esophagitis Chronic idiopathic constipation K59.04 Fatigue R53.83
== END 2025-04-17 15:39 | disposition home or self-care (01) ==
LOC: HO.HGI 14:43
PROVIDERS: PCP Internal Medicine; Visit Provider Nurse Practitioner
DX: K31.84 Gastroparesis (principal); K21.9 Gastro-esophageal reflux disease without esophagitis; K59.04 Chronic idiopathic constipation; R53.83 Other fatigue
CPT/HCPCS: 99213

== ENCOUNTER → 2025-04-17 14:42 | Outpatient (BNVA) | payer OTHER, SELFPAY | PROVIDERS: PCP Internal Medicine; Visit Provider Nurse Practitioner | DX: K21.9 Gastro-esophageal reflux disease without esophagitis (principal); K59.04 Chronic idiopathic constipation; K31.84 Gastroparesis; R53.83 Other fatigue | CPT/HCPCS: 99212 ==

== ENCOUNTER 2025-04-18 15:52 | Emergency (ER) | payer OTHER, SELFPAY ==
--- NOTE | ~2025-04-18 | XR_ITS ---
EXAMINATION: XR CHEST CLINICAL INFORMATION: short of breath COMPARISON: 04/01/2025. TECHNIQUE: 2 views of the chest were obtained. FINDINGS: The cardiac, hilar, and mediastinal contours are normal. Lungs demonstrate a subtle patchy opacity in the right lower lung distribution. Left lung appears clear. There is no pneumothorax or pleural effusion. There is no focal osseous or soft tissue abnormality. There is a cervical fusion device in place. XR/XR chest 2V IMPRESSION: There is subtle patchy opacity in the right lower lung distribution, which could represent pneumonia in the appropriate clinical setting. Electronically signed by: Rui Lomax MD 04/18/2025 04:42 PM EDT
[2025-04-18 15:58] VITALS: BP 140/66; PULSE 106; RESP 24; TEMP 36.9; O2SAT 91; BMI 24.7
--- NOTE | 2025-04-18 16:00 | ECG_ITS ---
Test Reason : sob Blood Pressure : */* mmHG Vent. Rate : 104 BPM Atrial Rate : 104 BPM P-R Int : 120 ms QRS Dur : 82 ms QT Int : 364 ms P-R-T Axes : 61 85 45 degrees QTcB Int : 478 ms Sinus tachycardia Otherwise normal ECG When compared with ECG of 01-Apr-2025 13:17, No significant change was found Referred By: Allison Keys Electronically Signed By: Allen Gant
--- NOTE | 2025-04-18 16:24 | ED_ITS ---
HPI - URI/Sore Throat General Chief Complaint: Upper Respiratory Symptoms Stated Complaint: difficulty w breathing Time Seen by Provider: 04/18/25 16:54 Related Data Home Medications ?Medication ?Instructions ?Recorded ?Confirmed aspirin 81 mg tablet,delayed 81 mg PO BEDTIME 01/10/21 04/02/25 release (Adult Low Dose Aspirin) azithromycin 500 mg tablet 500 mg PO TUTHSA 02/05/25 0 04/02/25 fluticasone fur. 100 mcg-umeclid 1 ea inhalation DAILY 02/05/25 04/02/25 62.5 mcg-vilant 25 mcg inhalat.powder (Trelegy Ellipta) ipratropium 0.5 mg-albuterol 3 mg 3 ml inhalation Q6H PRN wheezing 02/05/25 04/02/25 (2.5 mg base)/3 mL nebulization soln bisacodyl 5 mg tablet,delayed 10 mg PO BEDTIME PRN Con stipation 04/02/25 04/02/25 release (Dulcolax (bisacodyl)) psyllium husk 0.52 gram capsule 1.04 g PO BID 04/02/25 04/02/25 (Fiber Laxative (psyllium husk)) sitagliptin phosphate 100 mg 100 mg PO DAILY 04/02/25 04/02/25 tablet (Januvia) Previous Rx's ?Medication ?Instructions ?Recorded blood-glucose meter (FreeStyle #1 ea 10/03/21 Lite Meter kit) lancets 28 gauge (FreeStyle #100 ea 01/06/22 Lancets) FreeStyle Lite Strips (blood sugar #100 ea 03/10/22 diagnostic) flash glucose scanning reader #1 ea 03/26/23 (FreeStyle Cristian 2 Blair) rosuvastatin 5 mg tablet 5 mg PO DAILY #90 tabs 07/11 baclofen 10 mg tablet 10 mg PO TID 30 days #90 tab s 08/24/24 gabapentin 800 mg tablet 800 mg PO TID 30 days #90 ta bs 10/05/24 metformin 1,000 mg tablet 1,000 mg PO BID #180 tabs losartan 50 mg tablet 50 mg PO DAILY #90 tabs 12/15 05/10 simethicone 180 mg capsule 180 mg PO QID #120 caps (Anti-Gas Ultra Strength) nicotine 21 mg/24 hr daily 21 mg transdermal DAILY #7 ea 02/07/25 transdermal patch cholecalciferol (vitamin D3) 50 50 mcg PO DAILY #90 ca ps 02/20/25 mcg (2,000 unit) capsule amlodipine 5 mg tablet 5 mg PO DAILY #90 tabs 02/26 flash glucose sensor (FreeStyle #6 ea 03/28/25 Cristian 2 Sensor kit) linaclotide 72 mcg capsule 72 mcg PO QAM #30 caps 03/16 05/10 (Linzess) esomeprazole magnesium 40 mg 40 mg PO DAILY #30 caps 0 04/17/25 capsule,delayed release famotidine 40 mg tablet 40 mg PO BEDTIME #90 tabs magnesium oxide 400 mg PO BEDTIME #30 caps 0 04/17/25 metoclopramide HCl 10 mg tablet 10 mg PO QIDACHS #180 tabs 04/17/25 (Reglan) doxycycline hyclate 100 mg capsule 100 mg PO BID cough 7 days #14 caps 04/18/25 prednisone 20 mg tablet See Rx Instructions .Route 0 04/18/25 .COMPLEX #10 tabs Allergies Allergy/AdvReac Type Severity Reaction Status Date / Time amoxicillin (AMOXICILLIN) Allergy Intermediate RASH Verified 04/18/25 16:02 [facility]LY [facility] Past Medical History Medical History COPD (chronic obstructive pulmonary disease) Chronic hypercapnic respiratory failure Mixed dyslipidemia Heavy cigarette smoker History of pneumonia COPD mixed type Gastritis Diabetic gastroparesis Diastolic CHF with preserved left ventricular function, NYHA class 2 Type 2 diabetes mellitus with other diabetic kidney complication Essential hypertension Smoker unmotivated to quit Postlaminectomy syndrome of cervical region Seasonal allergic rhinitis GERD (gastroesophageal reflux disease) Surgical History H/O cervical discectomy History of esophagogastroduodenoscopy (EGD) Hx of colonoscopy Family History Family History Mother Diabetes Sister Diabetes Mental health disorder Brother Diabetes Father HTN (hypertension) Social History Social History Household Members: Significant Other Housing: Other Housing Other:: Mobile home Are you a primary patient care representative to a significant other at home: No Do you presently have visiting nurse or other home services: Yes (PCT) Alcohol intake: current Alcohol intake frequency: does not drink 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 Tobacco Use Status: Current everyday Tobacco user Tobacco use type: Cigarette Cigarette Packs Per Day: 1 Cigarettes Per Day: 20.0 Years Smoked: 51 Smoked in Last 30 Days: No e-Cigarette/Vaping Use: Never Used Second Hand Smoke Exposure: Yes Use of substances other than those prescribed or required for medical reasons: No Advance Directives: Yes Advance Directives on File: Yes Advance Directives Date on File: 08/02/23 Patient : No service: No Current occupational status: unemployed and disabled Gender identity: Female Cognitive needs: No Hearing needs: No Vision needs: Yes Physical Exam 2 Vital Signs: Vital Signs: Last Vital Signs Temp 97.6 F 04/18/25 18:27 Pulse 99 04/18/25 19:41 Resp 26 H 04/18/25 19:41 BP 149/59 H 04/18/25 18:27 Pulse Ox 97 04/18/25 18:27 O2 Del Method Nasal Cannula 04/18/25 18:27 O2 Flow Rate 2 04/18/25 18:27 Oxygen Flow Rate 2 04/18/25 16:45 BMI result Body Mass Index 24.7 Course Course Course Narrative: This is a Rapid Medical Examination (RME) performed by Bandar Keys PA-C in triage. Full HPI, ROS, assessment and treatment plan per primary provider in the Main ED. Hx: 64 yo F hx of HTN, COPD on 2 L home O2, GERD, gastroparesis, gastritis, constipation, DM2 here from pain clinic as they noted patient to be hypoxic to 79% on RA. patient wears 2L NC at baseline, was not wearing her O2 while at the clinic. assoc cough w/ upper back pain. Plan: labs, ekg, cxr Medications Administered Discontinued Medications Generic Name Dose Route Start Last Admin Trade Name Freq PRN Reason Stop Dose Admin Albuterol/Ipratropium 3 ml 04/18/25 19:07 04/18/25 19:41 Albuterol/Iprat 2.5/0.5mg 3 Ml Ampul.Neb INHALE 04/18/25 19:08 3 ml ONCE ONE Administration Doxycycline Monohydrate 100 mg 04/18/25 19:00 04/18/25 19:40 Doxycycline Monohydrate 100 Mg Capsule PO 04/18/25 19:01 100 mg ONCE ONE Administration Prednisone 40 mg 04/18/25 19:00 04/18/25 19:40 Prednisone 20 Mg Tablet PO 04/18/25 19:01 40 mg ONCE ONE Administration Medical Decision Making Lab Data 04/18/25 16:51 04/18/25 16:51 Labs: Lab Results 04/18/25 04/18/25 04/18/25 Range/Units 16:51 16:52 18:56 WBC 13.8 H (4.8-10.8) X10*3/uL RBC 5.01 (4.20-5.50) X10*6/uL Hgb 11.4 L (12.0-16.0) g/dl Hct 39.1 (37.0-47.0) % MCV 78.0 L (80.0-98.0) fL MCH 22.8 L (27.0-33.0) pg MCHC 29.2 L (31.0-35.0) g/dl RDW 18.6 H (11.0-16.0) % Plt Count 314 (160-400) X10*3/uL MPV 9.5 (9.4-12.3) fL Immature Gran % (Auto) 0.5 H (0.0-0.4) % Neut % (Auto) 77.0 H (45-73) % Lymph % (Auto) 14.5 L (20-40) % Knox % (Auto) 6.7 (2-11) % Eos % (Auto) 0.9 (0-4) % Baso % (Auto) 0.4 (0-2) % Lymph # (Auto) 2.0 (1.2-4.9) X10*3/uL Knox # (Auto) 0.9 (0.1-1.2) X10*3/uL Eos # (Auto) 0.1 (0.0-0.4) X10*3/uL Baso # (Auto) 0.1 (0.0-0.2) X10*3/uL Abs Immat Gran (auto) 0.07 H (0.00-0.03) X10*3/uL Absolute Neuts (auto) 10.6 H (2.0-8.3) x10*3/uL Absolute Nucleated RBC 0.000 (0.0-0.012) X10*3/uL Nucleated RBC % (auto) 0.0 (0.0-0.2) /100WBC Sodium 143 (135-145) mmol/L Potassium 3.9 (3.3-5.1) mmol/L Chloride 100 (96-108) mmol/L Carbon Dioxide 33 H (22-29) mmol/L Anion Gap 14 (12-20) BUN 7 L (9-16) mg/dL Creatinine 0.42 L (0.5-1.4) mg/dL Estim Creat Clear Calc 94.9 Estimated GFR > 60 Random Glucose 173 H (60-115) mg/dL Calcium 9.7 (8.4-10.2) mg/dL Magnesium 1.7 (1.6-2.6) mg/dL Total Bilirubin 0.2 (0.0-1.0) mg/dL AST 14 (5-31) U/L ALT 8 (0-31) U/L Alkaline Phosphatase 94 (39-117) U/L Troponin I High Sens 4.5 (<3.5-17.0) ng/L B-Natriuretic Peptide < 10 (<100) pg/mL Total Protein 7.2 (6.5-8.0) g/dL Albumin 4.6 (3.5-5.0) g/dL COVID-19 (JN) Negative (Negative) COVID-19 Clin Com See Note Discharge Plan Discharge Clinical Impression: Pneumonia Patient Disposition: Home, Self-Care Instructions: COPD (Chronic Obstructive Pulmonary Disease) (DC), Community Acquired Pneumonia (ED) Prescriptions: New doxycycline hyclate 100 mg capsule 100 mg PO BID 7 Days Qty: 14 0RF prednisone 20 mg tablet See Rx Instructions .ROUTE .COMPLEX Qty: 10 0RF Rx Instructions: Two tab daily for the next 4 days. Followed by 1 tab daily for 2 days. No Action (DME) lancets [FreeStyle Lancets] 28 gauge misc See Rx Instructions .Route Qty: 100 5RF Rx Instructions: As directed twice a day AC (DME) FreeStyle Lite Strips Strip See Rx Instructions .Route Qty: 100 0RF Rx Instructions: check fasting blood sugar twice a day before meals (DME) FreeStyle Cristian 2 Blair Misc See Rx Instructions .Route Qty: 1 0RF Rx Instructions: test blood sugar 4 times per day rosuvastatin 5 mg tablet 5 mg PO DAILY Qty: 90 1RF baclofen 10 mg tablet 10 mg PO TID 30 Days Qty: 90 6RF gabapentin 800 mg tablet 800 mg PO TID 30 Days Qty: 90 6RF metformin 1,000 mg tablet 1,000 mg PO BID Qty: 180 3RF losartan 50 mg tablet 50 mg PO DAILY Qty: 90 1RF cholecalciferol (vitamin D3) 50 mcg (2,000 unit) capsule 50 mcg PO DAILY Qty: 90 1RF amlodipine 5 mg tablet 5 mg PO DAILY Qty: 90 1RF (DME) FreeStyle Cristian 2 Sensor Kit See Rx Instructions .Route Qty: 6 3RF Rx Instructions: Test blood sugar 4 times per day magnesium oxide 400 mg magnesium capsule 400 mg PO BEDTIME Qty: 30 0RF psyllium husk [Fiber Laxative (psyllium husk)] 0.52 gram capsule 1.04 g PO BID Januvia 100 mg tablet 100 mg PO DAILY bisacodyl [Dulcolax (bisacodyl)] 5 mg tablet,delayed release (DR/EC) 10 mg PO BEDTIME PRN (Reason: Constipation) azithromycin 500 mg tablet 500 [facility] Trelegy Ellipta 100-62.5-25 mcg blister with device 1 ea INHALATION DAILY ipratropium-albuterol 0.5 mg-3 mg(2.5 mg base)/3 mL solution for nebulization 3 ml inhalation Q6H PRN (Reason: wheezing) nicotine 21 mg/24 hr Patch 24 Hour 21 mg transdermal DAILY Qty: 7 0RF aspirin [Adult Low Dose Aspirin] 81 mg tablet,delayed release (DR/EC) 81 mg PO BEDTIME (DME) blood-glucose meter [FreeStyle Lite Meter] Kit See Rx Instructions .Route Qty: 1 0RF Rx Instructions: As directed twice a day before meals famotidine 40 mg tablet 40 mg PO BEDTIME Qty: 90 2RF metoclopramide HCl [Reglan] 10 mg tablet 10 mg PO QIDACHS Qty: 180 6RF esomeprazole magnesium 40 mg capsule,delayed release(DR/EC) 40 mg PO DAILY Qty: 30 6RF simethicone [Anti-Gas Ultra Strength] 180 mg capsule 180 mg PO QID Qty: 120 6RF Linzess 72 mcg capsule 72 mcg PO QAM Qty: 30 6RF Referrals: Magalie Nicolas MD [Primary Care Provider, Internal Medicine] Print Language: Danish
[2025-04-18 16:45] VITALS: PULSE 103; RESP 22; O2SAT 96
--- NOTE | 2025-04-18 17:02 | PC.NURSE ---
64 F presents to ED with some weakness and SOB x 2 days, was at the pain clinic prior to coming here. Pt has chronic lower back and left arm pain, c/o 4/10 lower back pain. RR even and a little elevated, pt sts some SOB. 2L NC at baseline and pt is an active smoker who smokes 1 pack/day, with COPD. A+Ox4 and normally ambulates but was very weak today.
[2025-04-18 17:13] LABS: MANUAL DIFF FLAG NO
[2025-04-18 17:16] LABS: Hematocrit 39.1 % (37.0-47.0); Hemoglobin 11.4 g/dl (12.0-16.0); Imm Gran Abs Auto 0.07 X10*3/uL (0.00-0.03); Imm Gran Pct Auto 0.5 % (0.0-0.4); Lymphocytes Absolute Auto 2.0 X10*3/uL (1.2-4.9); Mean Corpuscular HGB Conc 29.2 g/dl (31.0-35.0); Mean Corpuscular Hemoglobin 22.8 pg (27.0-33.0); Mean Corpuscular Volume 78.0 fL (80.0-98.0); NRBC Abs Auto 0.000 X10*3/uL (0.0-0.012); NRBC Pct Auto 0.0 /100WBC (0.0-0.2); Platelet Count 314 X10*3/uL (160-400); Red Blood Count 5.01 X10*6/uL (4.20-5.50); White Blood Count 13.8 X10*3/uL (4.8-10.8)
[2025-04-18 17:29] LABS: Alanine Aminotransferase 8 U/L (0-31); Albumin Level 4.6 g/dL (3.5-5.0); Alkaline Phosphatase 94 U/L (39-117); Anion Gap 14 (12-20); Aspartate Amino Transferase 14 U/L (5-31); Blood Urea Nitrogen 7 mg/dL (9-16); Calcium 9.7 mg/dL (8.4-10.2); Carbon Dioxide 33 mmol/L (22-29); Chloride 100 mmol/L (96-108); Creatinine Clr Calc Pharmacy 94.9; Estimated Glomerular Filt Rate > 60; Magnesium 1.7 mg/dL (1.6-2.6); Potassium 3.9 mmol/L (3.3-5.1); Sodium 143 mmol/L (135-145); Total Protein 7.2 g/dL (6.5-8.0)
[2025-04-18 17:36] LABS: B Type Natriuretic Peptide < 10 pg/mL (<100)
[2025-04-18 17:36] LABS: Troponin-I High Sensitivity 4.5 ng/L (<3.5-17.0)
[2025-04-18 18:27] VITALS: BP 149/59; PULSE 99; RESP 26; TEMP 36.4; O2SAT 97
--- NOTE | 2025-04-18 18:52 | PC.NURSE ---
ambulation trial, pt tolerated well on the 2L NC baseline, SPo2 did drop down to 89. Provider aware.
--- NOTE | 2025-04-18 19:05 | ED.URI ---
HPI - URI/Sore Throat General Chief Complaint: Upper Respiratory Symptoms Stated Complaint: difficulty w breathing Time Seen by Provider: 04/18/25 16:54 History of Present Illness HPI Narrative: Patient is a 64-year-old female with a history of COPD baseline on 2 L of oxygen baseline history of smoking. Patient was at the pain clinic. She was on no oxygen was noted to have a decreased oxygenation of 79%. Placed on 2 L in the ED patient's O2 sat came up into the 90s 92-93%. She has a history of shortness of breath she feels about the same as baseline. There is some mild coughing which is also baseline. Patient from home. No diaphoresis no focal weakness. No leg swelling. Symptom resolved. She has oxygen at home. Normally being followed by Pulmonary. Was seen in the hospital in the past as discharge recently on antibiotics Related Data Home Medications ?Medication ?Instructions ?Recorded ?Confirmed aspirin 81 mg tablet,delayed 81 mg PO BEDTIME 01/10/21 04/02/25 release (Adult Low Dose Aspirin) azithromycin 500 mg tablet 500 mg PO TUTHSA 02/05/25 04/02/25 fluticasone fur. 100 mcg-umeclid 1 ea inhalation DAILY 02/05/25 04/02/25 62.5 mcg-vilant 25 mcg inhalat.powder (Trelegy Ellipta) ipratropium 0.5 mg-albuterol 3 mg 3 ml inhalation Q6H PRN wheezing 02/05/25 04/02/25 (2.5 mg base)/3 mL nebulization soln bisacodyl 5 mg tablet,delayed 10 mg PO BEDTIME PRN Constipation 04/02/25 04/02/25 release (Dulcolax (bisacodyl)) psyllium husk 0.52 gram capsule 1.04 g PO BID 04/02/25 04/02/25 (Fiber Laxative (psyllium husk)) sitagliptin phosphate 100 mg 100 mg PO DAILY 04/02/25 04/02/25 tablet (Januvia) Previous Rx's ?Medication ?Instructions ?Recorded blood-glucose meter (FreeStyle #1 ea 10/03/21 Lite Meter kit) lancets 28 gauge (FreeStyle #100 ea 01/06/22 Lancets) FreeStyle Lite Strips (blood sugar #100 ea 03/10/22 diagnostic) flash glucose scanning reader #1 ea 03/26/23 (FreeStyle Cristian 2 [place]) rosuvastatin 5 mg tablet 5 mg PO DAILY #90 tabs 07/11/24 baclofen 10 mg tablet 10 mg PO TID 30 days #90 tabs 08/24/24 gabapentin 800 mg tablet 800 mg PO TID 30 days #90 tabs 10/05/24 metformin 1,000 mg tablet 1,000 mg PO BID #180 tabs 11/28/24 losartan 50 mg tablet 50 mg PO DAILY #90 tabs 01/11/25 simethicone 180 mg capsule 180 mg PO QID #120 caps 02/01/25 (Anti-Gas Ultra Strength) nicotine 21 mg/24 hr daily 21 mg transdermal DAILY #7 ea 02/07/25 transdermal patch cholecalciferol (vitamin D3) 50 50 mcg PO DAILY #90 caps 02/20/25 mcg (2,000 unit) capsule amlodipine 5 mg tablet 5 mg PO DAILY #90 tabs 02/26/25 flash glucose sensor (FreeStyle #6 ea 03/28/25 Cristian 2 Sensor kit) linaclotide 72 mcg capsule 72 mcg PO QAM #30 caps 04/03/25 (Linzess) esomeprazole magnesium 40 mg 40 mg PO DAILY #30 caps 04/17/25 capsule,delayed release famotidine 40 mg tablet 40 mg PO BEDTIME #90 tabs 04/17/25 magnesium oxide 400 mg PO BEDTIME #30 caps 04/17/25 metoclopramide HCl 10 mg tablet 10 mg PO QIDACHS #180 tabs 04/17/25 (Reglan) doxycycline hyclate 100 mg capsule 100 mg PO BID cough 7 days #14 caps 04/18/25 prednisone 20 mg tablet See Rx Instructions .Route 04/18/25 .COMPLEX #10 tabs Allergies Allergy/AdvReac Type Severity Reaction Status Date / Time amoxicillin (AMOXICILLIN) Allergy Intermediate RASH Verified 04/18/25 16:02 Review of Systems Review of Systems: Positive coughing congestion upper respiratory symptoms Positive generalized malaise Yes all other systems are reviewed and are negative [facility] Past Medical History Attestation statement: The following information was validated with the patient. Medical History COPD (chronic obstructive pulmonary disease) Chronic hypercapnic respiratory failure Mixed dyslipidemia Heavy cigarette smoker History of pneumonia COPD mixed type Gastritis Diabetic gastroparesis Diastolic CHF with preserved left ventricular function, NYHA class 2 Type 2 diabetes mellitus with other diabetic kidney complication Essential hypertension Smoker unmotivated to quit Postlaminectomy syndrome of cervical region Seasonal allergic rhinitis GERD (gastroesophageal reflux disease) Surgical History H/O cervical discectomy History of esophagogastroduodenoscopy (EGD) Hx of colonoscopy Family History Family History Mother Diabetes Sister Diabetes Mental health disorder Brother Diabetes Father HTN (hypertension) Social History Social History Household Members: Significant Other Housing: Other Housing Other:: Mobile home Are you a primary care team coordinator scheduler to a significant other at home: No Do you presently have visiting nurse or other home services: Yes (PCT) Alcohol intake: current Alcohol intake frequency: does not drink 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 Patient Tobacco Use Status: Current everyday Tobacco user Tobacco use type: Cigarette Cigarette Packs Per Day: 1 Cigarettes Per Day: 20.0 Years Smoked: 51 Smoked in Last 30 Days: No e-Cigarette/Vaping Use: Never Used Second Hand Smoke Exposure: Yes Use of substances other than those prescribed or required for medical reasons: No Advance Directives: Yes Advance Directives on File: Yes Advance Directives Date on File: 08/02/23 Patient : No service: No Current occupational status: unemployed and disabled Gender identity: Female Cognitive needs: No Hearing needs: No Vision needs: Yes Physical Exam Exam: Exam: Appearance: Alert. Oriented X3. No acute distress. Eyes: Pupils equal, round and reactive to light. ENT: Pharynx normal. Neck: Normal inspection. Neck supple. No lymph nodes noted. No crepitus CVS: Normal heart rate and rhythm. Pulses normal. Normal S1 and S2 Respiratory: No respiratory distress. Diminished breath sounds bilaterally minimal wheezing noted Abdomen: Soft and nontender. No rigidity. No distention. good BS x4 Skin: Skin warm and dry. Normal skin color. Normal skin turgor. Extremities: No lower extremity edema. Neurovascular intact to all extremities. No Lacerations. No Rash Neuro: Oriented X 3. No motor deficit. No sensory deficit. Moving all extermities. No slurred speech Vital Signs: Vital Signs: Last Vital Signs Temp 97.6 F 04/18/25 18:27 Pulse 99 04/18/25 19:41 Resp 26 H 04/18/25 19:41 BP 149/59 H 04/18/25 18:27 Pulse Ox 97 04/18/25 18:27 O2 Del Method Nasal Cannula 04/18/25 18:27 O2 Flow Rate 2 04/18/25 18:27 Oxygen Flow Rate 2 04/18/25 16:45 BMI result Body Mass Index 24.7 Medications Administered Discontinued Medications Generic Name Dose Route Start Last Admin Trade Name Freq PRN Reason Stop Dose Admin Albuterol/Ipratropium 3 ml 04/18/25 19:07 04/18/25 19:41 Albuterol/Iprat 2.5/0.5mg 3 Ml Ampul.Neb INHALE 04/18/25 19:08 3 ml ONCE ONE Administration Doxycycline Monohydrate 100 mg 04/18/25 19:00 04/18/25 19:40 Doxycycline Monohydrate 100 Mg Capsule PO 04/18/25 19:01 100 mg ONCE ONE Administration Prednisone 40 mg 04/18/25 19:00 04/18/25 19:40 Prednisone 20 Mg Tablet PO 04/18/25 19:01 40 mg ONCE ONE Administration Medical Decision Making Medical Decision Making [facility] Narrative: Patient's O2 sat in the emergency department was approximately 92-93 on 2 L of oxygen which is baseline for patient. Chest x-ray by radiology's interpretation showed a question infiltrate. Patient does have chronic cough. 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 Can not completely exclude the possibility of pneumonia but given patient's white count is approximately the same as baseline. Was on steroids previously. Will give a course of doxycycline after consultation with Pulmonary. Patient's case was discussed with Dr. Cuellar from Pulmonary. Agree with plan of starting a course of steroids. Will have patient closely follow-up on an outpatient basis. White count is 13.8 this is chronic. In the setting of patient being on steroid this is most likely baseline. Patient electrolytes are unremarkable BNP is normal there is no evidence for congestive heart failure troponin is negative. Has decreased O2 sat but that was without oxygen. Steroid was given in the ED. was given a neb treatment. Will start patient on a course of doxycycline. Will discharge home. Patient's history not consistent with PE Differential Diagnosis Differential Diagnoses: The differential diagnosis associated with the presentation includes Pneumonia, COPD, congestive heart failure Admission/Observation Consideration of admission/observation: Escalation of care including admission/observation considered Consult Healthcare Provider Management of the patient was discussed with: Running Rigger (Pulmonary) Lab Data MDM Lab Attestation statement: I reviewed the patient's lab results. 04/18/25 16:51 04/18/25 16:51 Labs: Lab Results 04/18/25 04/18/25 04/18/25 Range/Units 16:51 16:52 18:56 WBC 13.8 H (4.8-10.8) X10*3/uL RBC 5.01 (4.20-5.50) X10*6/uL Hgb 11.4 L (12.0-16.0) g/dl Hct 39.1 (37.0-47.0) % MCV 78.0 L (80.0-98.0) fL MCH 22.8 L (27.0-33.0) pg MCHC 29.2 L (31.0-35.0) g/dl RDW 18.6 H (11.0-16.0) % Plt Count 314 (160-400) X10*3/uL MPV 9.5 (9.4-12.3) fL Immature Gran % (Auto) 0.5 H (0.0-0.4) % Neut % (Auto) 77.0 H (45-73) % Lymph % (Auto) 14.5 L (20-40) % [place] % (Auto) 6.7 (2-11) % Eos % (Auto) 0.9 (0-4) % Baso % (Auto) 0.4 (0-2) % Lymph # (Auto) 2.0 (1.2-4.9) X10*3/uL [place] # (Auto) 0.9 (0.1-1.2) X10*3/uL Eos # (Auto) 0.1 (0.0-0.4) X10*3/uL Baso # (Auto) 0.1 (0.0-0.2) X10*3/uL Abs Immat Gran (auto) 0.07 H (0.00-0.03) X10*3/uL Absolute Neuts (auto) 10.6 H (2.0-8.3) x10*3/uL Absolute Nucleated RBC 0.000 (0.0-0.012) X10*3/uL Nucleated RBC % (auto) 0.0 (0.0-0.2) /100WBC Sodium 143 (135-145) mmol/L Potassium 3.9 (3.3-5.1) mmol/L Chloride 100 (96-108) mmol/L Carbon Dioxide 33 H (22-29) mmol/L Anion Gap 14 (12-20) BUN 7 L (9-16) mg/dL Creatinine 0.42 L (0.5-1.4) mg/dL Estim Creat Clear Calc 94.9 Estimated GFR > 60 Random Glucose 173 H (60-115) mg/dL Calcium 9.7 (8.4-10.2) mg/dL Magnesium 1.7 (1.6-2.6) mg/dL Total Bilirubin 0.2 (0.0-1.0) mg/dL AST 14 (5-31) U/L ALT 8 (0-31) U/L Alkaline Phosphatase 94 (39-117) U/L Troponin I High Sens 4.5 (<3.5-17.0) ng/L B-Natriuretic Peptide < 10 (<100) pg/mL Total Protein 7.2 (6.5-8.0) g/dL Albumin 4.6 (3.5-5.0) g/dL COVID-19 (JN) Negative (Negative) COVID-19 Clin Com See Note Independent Interpretation I performed an independent interpretation of an: EKG (Sinus heart rate is 100 NC QRS QTC normal no acute ST segment elevation) and Plain X-Ray (No focal infiltrate on the x-ray) Radiology Impression Discussion of test interpretation with radiology: I have reviewed the radiologist's reading. External Record Review External record reviewed: Inpatient record and Office record Chronic Conditions COPD Social Determinants Patient?s care significantly limited by Social Determinants of Health including: Low income, Alcoholism and drug addiction in family and Other Social Determinant of Health Long history of smoking Discharge Plan Discharge Clinical Impression: Pneumonia Patient Disposition: Home, Self-Care Instructions: COPD (Chronic Obstructive Pulmonary Disease) (DC), Community Acquired Pneumonia (ED) Prescriptions: New doxycycline hyclate 100 mg capsule 100 mg PO BID 7 Days Qty: 14 0RF prednisone 20 mg tablet See Rx Instructions .ROUTE .COMPLEX Qty: 10 0RF Rx Instructions: Two tab daily for the next 4 days. Followed by 1 tab daily for 2 days. No Action (DME) lancets [FreeStyle Lancets] 28 gauge misc See Rx Instructions .Route Qty: 100 5RF Rx Instructions: As directed twice a day AC (DME) FreeStyle Lite Strips Strip See Rx Instructions .Route Qty: 100 0RF Rx Instructions: check fasting blood sugar twice a day before meals (DME) FreeStyle Cristian 2 [place] Misc See Rx Instructions .Route Qty: 1 0RF Rx Instructions: test blood sugar 4 times per day rosuvastatin 5 mg tablet 5 mg PO DAILY Qty: 90 1RF baclofen 10 mg tablet 10 mg PO TID 30 Days Qty: 90 6RF gabapentin 800 mg tablet 800 mg PO TID 30 Days Qty: 90 6RF metformin 1,000 mg tablet 1,000 mg PO BID Qty: 180 3RF losartan 50 mg tablet 50 mg PO DAILY Qty: 90 1RF cholecalciferol (vitamin D3) 50 mcg (2,000 unit) capsule 50 mcg PO DAILY Qty: 90 1RF amlodipine 5 mg tablet 5 mg PO DAILY Qty: 90 1RF (DME) FreeStyle Cristian 2 Sensor Kit See Rx Instructions .Route Qty: 6 3RF Rx Instructions: Test blood sugar 4 times per day magnesium oxide 400 mg magnesium capsule 400 mg PO BEDTIME Qty: 30 0RF psyllium husk [Fiber Laxative (psyllium husk)] 0.52 gram capsule 1.04 g PO BID Januvia 100 mg tablet 100 mg PO DAILY bisacodyl [Dulcolax (bisacodyl)] 5 mg tablet,delayed release (DR/EC) 10 mg PO BEDTIME PRN (Reason: Constipation) azithromycin 500 mg tablet 500 mg PO CHANTELLEHSChaya Trelegy Ellipta 100-62.5-25 mcg blister with device 1 ea INHALATION DAILY ipratropium-albuterol 0.5 mg-3 mg(2.5 mg base)/3 mL solution for nebulization 3 ml inhalation Q6H PRN (Reason: wheezing) nicotine 21 mg/24 hr Patch 24 Hour 21 mg transdermal DAILY Qty: 7 0RF aspirin [Adult Low Dose Aspirin] 81 mg tablet,delayed release (DR/EC) 81 mg PO BEDTIME (DME) blood-glucose meter [FreeStyle Lite Meter] Kit See Rx Instructions .Route Qty: 1 0RF Rx Instructions: As directed twice a day before meals famotidine 40 mg tablet 40 mg PO BEDTIME Qty: 90 2RF metoclopramide HCl [Reglan] 10 mg tablet 10 mg PO QIDACHS Qty: 180 6RF esomeprazole magnesium 40 mg capsule,delayed release(DR/EC) 40 mg PO DAILY Qty: 30 6RF simethicone [Anti-Gas Ultra Strength] 180 mg capsule 180 mg PO QID Qty: 120 6RF Linzess 72 mcg capsule 72 mcg PO QAM Qty: 30 6RF Referrals: Magalie Nicolas MD [Primary Care Provider, Internal Medicine] Print Language: Macedonian
[2025-04-18 19:16] LABS: COVID-19 Test Negative (Negative); IDNOW Serial# 58CA691E
[2025-04-18 19:41] VITALS: PULSE 99; RESP 26; O2SAT 92
[2025-04-18] MEDS: Albuterol/Iprat 2.5/0.5MG 3 ML AMPUL.NEB INHALE (19:41)
[2025-04-18 20:00] VITALS: BP 119/53; PULSE 104; RESP 20; O2SAT 85
--- NOTE | 2025-04-18 20:07 | PC.NURSE ---
pt requested phone to call boyfriend at this time for a ride home, no portable phone available, this RN called pt boyfriendWiley at this time to inform him that the pt is being D/C
[2025-04-18 20:41] VITALS: BP 119/53; PULSE 104; RESP 20; TEMP 36.1; O2SAT 85
== END 2025-04-18 20:43 | disposition home or self-care (01) ==
PROVIDERS: Physician Assistant Medical; Emergency Provider Emergency Medicine Emergency Medical Services; PCP Internal Medicine
DX: J18.9 Pneumonia, unspecified organism (principal); R06.02 Shortness of breath; J44.9 Chronic obstructive pulmonary disease, unspecified; E11.9 Type 2 diabetes mellitus without complications; R00.0 Tachycardia, unspecified; Z99.81 Dependence on supplemental oxygen; Z79.899 Other long term (current) drug therapy; Z87.891 Personal history of nicotine dependence; Z11.52 Encounter for screening for COVID-19; Z03.818 Encounter for observation for suspected exposure to other biological agents ruled out
CPT/HCPCS: 36415; 71046; 80053; 83735; 83880; 84484; 85025; 87635; 93005; 99284; 99285

== ENCOUNTER → 2025-04-18 16:00 | Outpatient (BNV) | payer OTHER, SELFPAY | PROVIDERS: Emergency Provider Emergency Medicine Emergency Medical Services; PCP Internal Medicine; Visit Provider Radiology Diagnostic Radiology | DX: R91.8 Other nonspecific abnormal finding of lung field (principal) | CPT/HCPCS: 71046 ==

== ENCOUNTER → 2025-04-18 16:00 | Outpatient (BNV) | payer OTHER, SELFPAY | PROVIDERS: Emergency Provider Emergency Medicine Emergency Medical Services; PCP Internal Medicine; Visit Provider Internal Medicine Cardiovascular Disease | DX: R00.0 Tachycardia, unspecified (principal) | CPT/HCPCS: 93010 ==

== ENCOUNTER 2025-04-27 17:11 | Emergency (ER) | payer OTHER, SELFPAY ==
[2025-04-27 17:18] VITALS: BP 125/60; PULSE 97; RESP 18; TEMP 36.8; O2SAT 94; BMI 22.9
--- NOTE | 2025-04-27 17:18 | ED.GENADULT ---
HPI - General Adult General Chief complaint: Skin/Abscess/Foreign Body Stated complaint: Rash Time Seen by Provider: 04/27/25 18:39 Source: patient and old records reviewed Mode of arrival: wheelchair Limitations: no limitations History of Present Illness ED Provider: OSMEL MORALES narrative: 64 yo female with PMH of chronic abd pain, gastroparesis, COPD on 2L NC, HTN, HLD, GERD, DM2 who presents with 4 days of painful burning itchy rash to inner buttocks. She does have some issues with fecal incontinence due to Linzess. She didn't feel well today but no n/v no fevers. She is eating a sandwhich on arrival. She has no one at home to help her with the rectal area. She has no discharge. She did not apply any cream. She spends a lot of time laying down and sitting. complaint: rectal rash Onset (ago): day(s) (4) Location: genitals Radiation: non-radiation Severity: moderate Quality: other (pruritic, burning) Pain Consistency: constant Relieving factors: none Exacerbating factors: movement Associated symptoms: rash Treatments prior to arrival: none Related Data Home Medications ?Medication ?Instructions ?Recorded ?Confirmed aspirin 81 mg tablet,delayed 81 mg PO BEDTIME 01/10/21 04/02/25 release (Adult Low Dose Aspirin) azithromycin 500 mg tablet 500 mg PO TUTHSA 02/05/25 04/02/25 fluticasone fur. 100 mcg-umeclid 1 ea inhalation DAILY 02/05/25 04/02/25 62.5 mcg-vilant 25 mcg inhalat.powder (Trelegy Ellipta) ipratropium 0.5 mg-albuterol 3 mg 3 ml inhalation Q6H PRN wheezing 02/05/25 04/02/25 (2.5 mg base)/3 mL nebulization soln bisacodyl 5 mg tablet,delayed 10 mg PO BEDTIME PRN Constipation 04/02/25 04/02/25 release (Dulcolax (bisacodyl)) psyllium husk 0.52 gram capsule 1.04 g PO BID 04/02/25 04/02/25 (Fiber Laxative (psyllium husk)) sitagliptin phosphate 100 mg 100 mg PO DAILY 04/02/25 04/02/25 tablet (Januvia) Previous Rx's ?Medication ?Instructions ?Recorded blood-glucose meter (FreeStyle #1 ea 10/03/21 Lite Meter kit) lancets 28 gauge (FreeStyle #100 ea 01/06/22 Lancets) FreeStyle Lite Strips (blood sugar #100 ea 03/10/22 diagnostic) flash glucose scanning reader #1 ea 03/26/23 (FreeStyle Cristian 2 [place]) rosuvastatin 5 mg tablet 5 mg PO DAILY #90 tabs 07/11/24 baclofen 10 mg tablet 10 mg PO TID 30 days #90 tabs 08/24/24 gabapentin 800 mg tablet 800 mg PO TID 30 days #90 tabs 10/05/24 metformin 1,000 mg tablet 1,000 mg PO BID #180 tabs 11/28/24 losartan 50 mg tablet 50 mg PO DAILY #90 tabs 01/11/25 simethicone 180 mg capsule 180 mg PO QID #120 caps 02/01/25 (Anti-Gas Ultra Strength) nicotine 21 mg/24 hr daily 21 mg transdermal DAILY #7 ea 02/07/25 transdermal patch cholecalciferol (vitamin D3) 50 50 mcg PO DAILY #90 caps 02/20/25 mcg (2,000 unit) capsule amlodipine 5 mg tablet 5 mg PO DAILY #90 tabs 02/26/25 flash glucose sensor (FreeStyle #6 ea 03/28/25 Cristian 2 Sensor kit) linaclotide 72 mcg capsule 72 mcg PO QAM #30 caps 04/03/25 (Linzess) esomeprazole magnesium 40 mg 40 mg PO DAILY #30 caps 04/17/25 capsule,delayed release famotidine 40 mg tablet 40 mg PO BEDTIME #90 tabs 04/17/25 magnesium oxide 400 mg PO BEDTIME #30 caps 04/17/25 metoclopramide HCl 10 mg tablet 10 mg PO QIDACHS #180 tabs 04/17/25 (Reglan) doxycycline hyclate 100 mg capsule 100 mg PO BID cough 7 days #14 caps 04/18/25 prednisone 20 mg tablet See Rx Instructions .Route 04/18/25 .COMPLEX #10 tabs dimethicone 5 % topical cream 1 appl topical QID PRN skin 04/27/25 (Soothe and Cool Inzo Barrier) irritation #118.29 mL metronidazole 250 mg tablet 250 mg PO TID 5 days #15 tabs 04/27/25 Allergies Allergy/AdvReac Type Severity Reaction Status Date / Time amoxicillin (AMOXICILLIN) Allergy Intermediate RASH Verified 04/27/25 17:20 Review of Systems Review of Systems: Constitutional : No Fever, No Chills ENT/Mouth : No sore throat, No Rhinorrhea Eyes: No Eye Pain, No Swelling, No Redness Cardiovascular : No Chest Pain, No SOB Respiratory : No Cough, No Sputum Gastrointestinal : No Nausea, No Vomiting, No Diarrhea, No abdominal Pain Genitourinary : No Dysuria, No Hematuria Musculoskeletal : No joint pain, No Myalgias, No Joint Swelling Skin : No Skin Lesions, positive skin rash All other systems reviewed and are negative [facility] Past Medical History Attestation statement: The following information was validated with the patient. Source: old records reviewed Medical History COPD (chronic obstructive pulmonary disease) Chronic hypercapnic respiratory failure Mixed dyslipidemia Heavy cigarette smoker History of pneumonia COPD mixed type Gastritis Diabetic gastroparesis Diastolic CHF with preserved left ventricular function, NYHA class 2 Type 2 diabetes mellitus with other diabetic kidney complication Essential hypertension Smoker unmotivated to quit Postlaminectomy syndrome of cervical region Seasonal allergic rhinitis GERD (gastroesophageal reflux disease) Surgical History H/O cervical discectomy History of esophagogastroduodenoscopy (EGD) Hx of colonoscopy Family History Family History Mother Diabetes Sister Diabetes Mental health disorder Brother Diabetes Father HTN (hypertension) Social History Social History Household Members: Significant Other Housing: Other Housing Other:: Mobile home Are you a primary health care facilities inspector to a significant other at home: No Do you presently have visiting nurse or other home services: Yes (PCT) Alcohol intake: current Alcohol intake frequency: does not drink 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 Patient Tobacco Use Status: Current everyday Tobacco user Tobacco use type: Cigarette Cigarette Packs Per Day: 1 Cigarettes Per Day: 20.0 Years Smoked: 51 Smoked in Last 30 Days: Yes e-Cigarette/Vaping Use: Never Used Second Hand Smoke Exposure: Yes Use of substances other than those prescribed or required for medical reasons: No Advance Directives: Yes Advance Directives on File: Yes Advance Directives Date on File: 08/02/23 Patient : No service: No Current occupational status: unemployed and disabled Gender identity: Female Cognitive needs: No Hearing needs: No Vision needs: Yes Physical Exam ED Vital Signs: Vital Signs - 24 hr 04/27/25 17:18 04/27/25 18:24 Temperature 98.2 F 98.2 F Pulse Rate 97 94 Respiratory Rate 18 16 Blood Pressure 125/60 112/56 L Pulse Oximetry 94 93 Oxygen Delivery Method Room Air Nasal Cannula Oxygen Flow Rate 2 BMI result Body Mass Index 22.9 Appearance: Alert. Oriented X3. No acute distress. Frail and older than stated age Eyes: Pupils equal, round and reactive to light. ENT: Pharynx normal. Neck: Normal inspection. Neck supple. CVS: Normal heart rate and rhythm. Pulses normal. Respiratory: No respiratory distress. Breath sounds normal. Abdomen: Soft and nontender. Rectal: on the rectal area there is excoriated mucosa no abscess, no crepitus, it is red with some superficial pressure sores. Skin: Skin warm and dry. Normal skin color. Extremities: No lower extremity edema. Neuro: Oriented X 3. No motor deficit. No sensory deficit. Course Course Course Narrative: Rapid medical examination performed in triage by Silvina Dave PA-C. Patient is a 64 year old assigned female at presenting to the emergency department with a buttock rash. Patient states over the last few days she has noticed a worsening buttock rash that is painful and intermittently itchy. Detailed physical exam and review of systems are deferred to the mexican food machine tender. Patient placed back in the waiting room pending room availability. Medical Decision Making Medical Decision Making MDM Narrative: 64 yo female with PMH of chronic abd pain, gastroparesis, COPD on 2L NC, HTN, HLD, GERD, DM2 here with rectal rash likely in setting of fecal incontinence there is some mucosa inflammation will start on flagyl but I am going to order barrier cream. She needs VNA services at home as well to monitor the area for worsening wounds. Differential Diagnosis Differential Diagnoses: The differential diagnosis associated with the presentation includes pressure ulcer, proctitis, poor social support Admission/Observation Consideration of admission/observation: Escalation of care including admission/observation considered no systemic symptoms can be DC home after cleaning and barrier cream, she ate a sandwhich as well External Record Review External record reviewed: Outpatient record Prescription Management I considered prescription management with: Antibiotic and Other Discharge Plan Discharge Clinical Impression: Pressure ulcer, Acute proctitis Patient Disposition: Home, Self-Care Instructions: Proctitis (ED), Wound Healing and Your Diet (ED) Additional Instructions: return for fevers drainage increased rash or any other concerns finish all medications apply the barrier twice a day someone will call you at home about visiting nurses keep area dry Prescriptions: New Soothe and Cool Inzo Barrier 5 % cream 1 appl topical QID PRN (Reason: skin irritation) Qty: 118.29 0RF metronidazole 250 mg tablet 250 mg PO TID 5 Days Qty: 15 0RF No Action (DME) lancets [FreeStyle Lancets] 28 gauge misc See Rx Instructions .Route Qty: 100 5RF Rx Instructions: As directed twice a day AC (DME) FreeStyle Lite Strips Strip See Rx Instructions .Route Qty: 100 0RF Rx Instructions: check fasting blood sugar twice a day before meals (DME) FreeStyle Cristian 2 [place] Misc See Rx Instructions .Route Qty: 1 0RF Rx Instructions: test blood sugar 4 times per day rosuvastatin 5 mg tablet 5 mg PO DAILY Qty: 90 1RF baclofen 10 mg tablet 10 mg PO TID 30 Days Qty: 90 6RF gabapentin 800 mg tablet 800 mg PO TID 30 Days Qty: 90 6RF metformin 1,000 mg tablet 1,000 mg PO BID Qty: 180 3RF losartan 50 mg tablet 50 mg PO DAILY Qty: 90 1RF cholecalciferol (vitamin D3) 50 mcg (2,000 unit) capsule 50 mcg PO DAILY Qty: 90 1RF amlodipine 5 mg tablet 5 mg PO DAILY Qty: 90 1RF (DME) FreeStyle Cristian 2 Sensor Kit See Rx Instructions .Route Qty: 6 3RF Rx Instructions: Test blood sugar 4 times per day magnesium oxide 400 mg magnesium capsule 400 mg PO BEDTIME Qty: 30 0RF psyllium husk [Fiber Laxative (psyllium husk)] 0.52 gram capsule 1.04 g PO BID Januvia 100 mg tablet 100 mg PO DAILY bisacodyl [Dulcolax (bisacodyl)] 5 mg tablet,delayed release (DR/EC) 10 mg PO BEDTIME PRN (Reason: Constipation) azithromycin 500 mg tablet 500 mg PO TUTHSA Trelegy Ellipta 100-62.5-25 mcg blister with device 1 ea INHALATION DAILY ipratropium-albuterol 0.5 mg-3 mg(2.5 mg base)/3 mL solution for nebulization 3 ml inhalation Q6H PRN (Reason: wheezing) nicotine 21 mg/24 hr Patch 24 Hour 21 mg transdermal DAILY Qty: 7 0RF doxycycline hyclate 100 mg capsule 100 mg PO BID 7 Days Qty: 14 0RF prednisone 20 mg tablet See Rx Instructions .ROUTE .COMPLEX Qty: 10 0RF Rx Instructions: Two tab daily for the next 4 days. Followed by 1 tab daily for 2 days. aspirin [Adult Low Dose Aspirin] 81 mg tablet,delayed release (DR/EC) 81 mg PO BEDTIME (DME) blood-glucose meter [FreeStyle Lite Meter] Kit See Rx Instructions .Route Qty: 1 0RF Rx Instructions: As directed twice a day before meals famotidine 40 mg tablet 40 mg PO BEDTIME Qty: 90 2RF metoclopramide HCl [Reglan] 10 mg tablet 10 mg PO QIDACHS Qty: 180 6RF esomeprazole magnesium 40 mg capsule,delayed release(DR/EC) 40 mg PO DAILY Qty: 30 6RF simethicone [Anti-Gas Ultra Strength] 180 mg capsule 180 mg PO QID Qty: 120 6RF Linzess 72 mcg capsule 72 mcg PO QAM Qty: 30 6RF Print Language: Bulgarian
[2025-04-27 18:24] VITALS: BP 112/56; PULSE 94; RESP 16; TEMP 36.8; O2SAT 93
--- NOTE | 2025-04-27 18:44 | PC.NURSE ---
Pt comes to ER with a rash on her buttocks. Skin was cleaned after brief was removed. Pt reports it has been hurting for a few days, gets worse with sitting or moving. Skin of gluteal cleft is reddened, impaired. HX diabetes and daily tobacco use.
[2025-04-27 20:30] VITALS: BP 150/62; PULSE 99; RESP 16; TEMP 36.4; O2SAT 100
[2025-04-27 20:53] VITALS: BP 150/62; PULSE 99; RESP 16; TEMP 36.4; O2SAT 100
--- NOTE | 2025-04-28 09:40 | MHC.CM.ED ---
Pt left prior to being seen by ED CM
== END 2025-04-27 20:53 | disposition home or self-care (01) ==
PROVIDERS: Emergency Provider Emergency Medicine; PCP Internal Medicine
DX: L89.300 Pressure ulcer of unspecified buttock, unstageable (principal); K62.89 Other specified diseases of anus and rectum; J44.9 Chronic obstructive pulmonary disease, unspecified; I10 Essential (primary) hypertension; E11.9 Type 2 diabetes mellitus without complications; Z79.84 Long term (current) use of oral hypoglycemic drugs; Z99.81 Dependence on supplemental oxygen; Z79.899 Other long term (current) drug therapy; F17.210 Nicotine dependence, cigarettes, uncomplicated
CPT/HCPCS: 99283; 99284

== ENCOUNTER 2025-05-01 09:56 | Outpatient (REF) | payer OTHER, SELFPAY ==
[2025-05-01 14:04] LABS: Hemoglobin A1C 133.1931 umol/L; Total Hemoglobin (HGBA1C) 2952.7515 umol/L
[2025-05-01 14:32] LABS: Microalbum/Creatinine Ratio Ur 21.7 ug/mg cr (<30)
[2025-05-01 14:34] LABS: Alanine Aminotransferase < 6 U/L (0-31); Aspartate Amino Transferase 17 U/L (5-31); Cholesterol 152 mg/dL (<200); HDL Cholesterol 46 mg/dL (>40); Triglycerides 179 mg/dL (<150)
== END 2025-05-01 09:57 | disposition home or self-care (01) ==
LOC: HO.HMGCLDS 09:56
PROVIDERS: Nurse Practitioner; PCP Internal Medicine; Visit Provider Internal Medicine
DX: K59.04 Chronic idiopathic constipation (principal); R53.83 Other fatigue; E78.2 Mixed hyperlipidemia; E11.9 Type 2 diabetes mellitus without complications; I10 Essential (primary) hypertension
CPT/HCPCS: 36415; 80061; 82043; 82570; 83036; 84443; 84450; 84460

== ENCOUNTER 2025-05-03 15:20 | Outpatient (AMB) | payer OTHER, SELFPAY ==
--- NOTE | 2025-05-03 15:38 | MHC.PC.OV ---
Vital Signs 05/03/25 15:56 Height 4 ft 9 in Weight 108 lb BMI 23.4 BP 108/50 L Blood Pressure Location Rt brachial Position Sitting Respiration 17 Pulse 101 H Pulse Source Pulse Oximeter Temp 98.2 F Temp Source Oral Pulse Oximetry (%) 93 Oxygen Delivery Method Nasal Cannula Intake Visit Reasons: 4m follow up after fasting labs done/repeat A1C Intake Note: Pt is here today for her 4mo. f/u Allergies amoxicillin (AMOXICILLIN) Allergy (Intermediate, Verified 05/03/25 15:47) RASH Tobacco use date assessed: 05/03/25 Dental Screening Dental Screen Date: 05/03/25 Did you have a dental visit in the last 12 months?: Yes Did you have a dental problem in the last 6 months where you did not have access to dental care?: No Was dental information given to patient?: Patient has dentist [facility], [facility] Medical History (Updated 05/03/25 @ 16:45 by Magalie Nicolas MD) COPD (chronic obstructive pulmonary disease) Chronic hypercapnic respiratory failure Mixed dyslipidemia Heavy cigarette smoker History of pneumonia COPD mixed type Gastritis Diabetic gastroparesis Diastolic CHF with preserved left ventricular function, NYHA class 2 Type 2 diabetes mellitus with other diabetic kidney complication Essential hypertension Smoker unmotivated to quit Postlaminectomy syndrome of cervical region Seasonal allergic rhinitis GERD (gastroesophageal reflux disease) Surgical History H/O cervical discectomy History of esophagogastroduodenoscopy (EGD) Hx of colonoscopy Family History Mother Diabetes Sister Diabetes Mental health disorder Brother Diabetes Father HTN (hypertension) Social History Household Members: Significant Other Housing: Other Housing Other:: Mobile home Are you a primary healthcare translator to a significant other at home: No Do you presently have visiting nurse or other home services: Yes (PCT) Alcohol intake: current Alcohol intake frequency: does not drink 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 1. Little interest or pleasure in doing things: several days 2. Feeling down, depressed, or hopeless: not at all 6. Feeling bad about yourself - or that you are a failure or have let yourself or your family down: not at all 7. Trouble concentrating on things, such as reading the newspaper or watching television: not at all 8. Moving or speaking so slowly that other people could have noticed. Or the opposite - being so fidgety or restless that you have been moving around a lot more than usual: not at all 9. Thoughts that you would be better off or of hurting yourself in some way: not at all Depression Screening Interpretation: Negative Depression Screening Done: Yes Source: Developed by Drs. Wiley Caballero, Sharmila Paez, Iraj Hernandez and colleagues, with an educational radha from [employer]. Thrive Questionnaire Date Thrive assessed: 09/07/24 I am a: Patient What is your living situation today?: I have a steady place to live Within the past 12 months, did the food you bought not last and you didn't have the money to get more?: Never true Within the past 12 months, did you worry whether your food would run out before you got money to buy more?: Never true Do you have trouble paying for medicines?: No Do you have trouble getting transportation to medical appointments?: No Do you have trouble paying your heating and electricity bill?: No Do you have trouble taking care of your child, family member or friend?: No Do you have trouble with day-to-day activities such as bathing, preparing meals, shopping, managing finances, etc.?: Yes Are you currently unemployed and looking for a job?: No Are you interested in more education?: No Please select the resources that you would like help with: None Currently or been in a relationship where the following occur: I choose not to answer THRIVE Score: 0 AUDIT C Alcohol Use Questionnaire (AUDIT-C) 1. How often do you have a drink containing alcohol?: Never Total Score: 0 FREDI-7 AMB Questionnaire FREDI-7 Date FREDI - 7 assessed: 05/03/25 Feeling nervous, anxious, or on edge: 0 = Not at all Not being able to stop or control worryin = Not at all Worrying too much about different things: 0 = Not at all Trouble relaxin = Not at all Being so restless that it is hard to sit still: 0 = Not at all Becoming easily annoyed or irritable: 0 = Not at all Feeling afraid as if something awful might happen: 0 = Not at all Total FREDI-7 score (0-4 normal; 5-9 mild; 10-14 moderate; 15-21 severe): 0 Source: Developed by Drs. Wiley Caballero, Sharmila Paez, Iraj Hernandez and colleagues, with an educational radha from [employer]. FREDI-7 Assessment Billing FREDI-7 Assessment Tool: FREDI-7 Assessment 59784 Physical exam (Primary Care) Vital Signs: Last Vital Signs Temp 98.2 F 05/03/25 15:56 Pulse 101 H 05/03/25 15:56 Resp 17 05/03/25 15:56 BP 108/50 L 05/03/25 15:56 Pulse Ox 93 05/03/25 15:56 Oxygen Delivery Method Nasal Cannula 05/03/25 15:56 BMI result Body Mass Index 23.4 Tobacco/Smoking Status: Tobacco use Status Tobacco use date assessed 05/03/25 05/03/25 15:51 Patient Tobacco Use Status Current everyday Tobacco 05/03/25 15:40 Tobacco use type Cigarette 05/03/25 15:40 e-Cigarette/Vaping Use Never Used 05/03/25 15:40 Depression Screening Interpretation: Negative Thrive Assessment: Date of Thrive Assessment Date Thrive assessed 09/07/24 05/03/25 15:40 Currently or been in a relationship where the following occur: I choose not to answer Office Procedures Flu Questionnaire Does the patient have a severe egg allergy?: No Does the patient have severe life threatening allergies?: No Does the patient have a fever or illness today?: No Has the patient ever had Guillain-[place] Syndrome?: No Has the patient ever had any past reaction to a flu shot?: No Immunizations Fluarix [id number] (PF) 45 mcg (15 mcg x 3)/0.5 mL IM syringe Performing Provider: Magalie Nicolas MD [place] [facility] Administered by: Adalgisa Cardenas CMA on 05/03/25 16:48 Dose Route Admin Location Dispensed Lot Number Expiration Date NDC Wire Bound Box Machine Operator 0.5 mL IM Right Deltoid 0.5 mL [id number] 02/12/26 [id number] GLA[employer]OSMITHK[employer] VIS Given Date VIS Provided VIS Publication Date 05/03/25 Single Vaccine 24 Eligibility Eligibility Date Funding Source Not [facility] Eligible 05/03/25 Private Results Reviewed Results Reviewed: Name: Maria Elena Kingston Age/Sex: 64/F : 1960 Unit#: [id number] Attend Dr: Magalie Nicolas MD Re05/01/25 Status: DEP REF Location: [facility] Disch: SPEC : [id number] SEUN: 05/01/25-1010 STATUS: COMP REQ : [id number] RECD: 05/01/25-[address]: Jackie,November ANP-C COMP: 05/01/25-1435 ENTERED: 05/01/25-[address]: Magalie Nicolas MD ORDERED: AST, ALT, Lipid Panel, TSH Rflx Test Result Flag Reference AST (GOT) 17 5-31 U/L ALT (GPT) < 6 0-31 U/L Triglyceride 179 H <150 mg/dL Desirable Triglyceride: less than 150 mg/dL Borderline High Triglyceride 150-199 mg/dL High Triglyceride: 200-499 mg/dL Very High Triglyceride: greater than or equal to 5OO mg/dL Cholesterol 152 <200 mg/dL Desirable Cholesterol: less than 200 mg/dL Borderline High Cholesterol: 200-239 mg/dL High Cholesterol: greater than 239 mg/dL LDL Calculated 71 <100 mg/dL Desirable LDL: less than 100 mg/dL Near Optimal/Above Optimal LDL: 110-129 mg/dL Borderline High LDL: 130-159 mg/dL High LDL: 160-189 mg/dL Very High LDL: greater than or equal to 190 mg/dL HDL 46 >40 mg/dL Desirable HDL: greater than 40 mg/dL Note: This HDL assay may give artificially low results in patients with liver disease. TSH 0.55 0.32-4.0 uIU/mL Laboratory Tests 05/01/25 10:10 Estimat Average Glucose 134 Hemoglobin A1c % 6.3 H AST 17 ALT < 6 Coding Level of Care Code Est Pt Level 4 (00746) Complex EM visit Add On G2211 Diagnoses Type 2 diabetes mellitus without complication, with no history of insulin use E11.9 Acute proctitis K62.89 Primary hypertension I10 Hypertension type: primary hypertension Mixed dyslipidemia E78.2 COPD mixed type J44.9 Smoker unmotivated to quit F17.200 Impacted cerumen, left ear H61.22 Additional Codes FREDI-7 Assessment Billing - FREDI-7 Assessment Tool: FREDI-7 Assessment 79449 ([id number]) Assessment & Plan Assessment & Plan (1) Type 2 diabetes mellitus without complication, with no history of insulin use: Code(s): E11.9 - Type 2 diabetes mellitus without complications Category: Medical Plan: Continue with metformin and Januvia, flu vaccine given today. (2) Acute proctitis: Code(s): K62.89 - Other specified diseases of anus and rectum [facility] (3) Hypertension: Code(s): I10 - Essential (primary) hypertension Category: Medical Qualifiers: Hypertension type: primary hypertension Qualified Code(s): I10 - Essential (primary) hypertension (4) Mixed dyslipidemia: Code(s): E78.2 - Mixed hyperlipidemia Category: Medical (5) COPD mixed type: Comment: follows w/[facility] Pulmonology Code(s): J44.9 - Chronic obstructive pulmonary disease, unspecified Category: Medical Plan: Currently on 2 L O2 by nasal cannula, (6) Smoker unmotivated to quit: Code(s): F17.200 - Nicotine dependence, unspecified, uncomplicated Category: Social Hx Plan: Patient strongly advised to stop smoking, as smoking damages blood vessels, degenerative of joints and spine, damage to lungs and heart., predisposes to developing certain cancers like lung, breast, bladder, colon. Recommended to try decreasing cigarette use by 1-2 cigarettes a day. Advised to monitor what triggers are for smoking so that this can be discussed on the next office visit. We can discuss different options to quit smoking when ready (7) Impacted cerumen, left ear: Code(s): H61.22 - Impacted cerumen, left ear Plan: Advised to try using [id number] Debrox drops to soften and flush cerumen from left ear Orders: Orders Influenza [id number] Immunization Today Z23 - Encounter for immunization Referrals [facility] Referral K62.89 - Other specified diseases of anus and rectum
[2025-05-03 15:56] VITALS: BP 108/50; PULSE 101; RESP 17; TEMP 36.8; O2SAT 93; BMI 23.4
== END 2025-05-03 17:06 | disposition home or self-care (01) ==
LOC: HO.HMCC 15:21
PROVIDERS: Visit Provider Internal Medicine
DX: Z23 Encounter for immunization (principal)

== ENCOUNTER → 2025-05-03 15:20 | Outpatient (BNVA) | payer OTHER, SELFPAY | PROVIDERS: Visit Provider Internal Medicine | DX: E11.9 Type 2 diabetes mellitus without complications (principal); J44.9 Chronic obstructive pulmonary disease, unspecified; K62.89 Other specified diseases of anus and rectum; I10 Essential (primary) hypertension; E78.2 Mixed hyperlipidemia; H61.22 Impacted cerumen, left ear; F17.210 Nicotine dependence, cigarettes, uncomplicated; Z23 Encounter for immunization; Z99.81 Dependence on supplemental oxygen | CPT/HCPCS: 90471; 90656; 96127; 99212 ==

== ENCOUNTER 2025-05-05 19:56 | Emergency (ER) | payer OTHER, SELFPAY ==
--- NOTE | ~2025-05-05 | XR_ITS ---
CLINICAL HISTORY: pain 4 views cervical spine Comparison: None provided Findings: Normal alignment. There is mild anterior superior endplate fracture at C3. Indeterminate whether this is acute or chronic. Osteopenia. C5-C6 anterior discectomy and fusion. No significant degenerative change. Prevertebral soft tissues within normal limits. IMPRESSION: Age-indeterminate T3 superior endplate fracture. This document has been electronically signed by: Bert Cornelius MD on 05/05/2025 22:27:22
[2025-05-05 20:06] VITALS: BP 123/58; PULSE 100; RESP 20; TEMP 36.4; O2SAT 92; BMI 23.3
--- NOTE | 2025-05-05 20:27 | ED.EXTPRO ---
HPI - Extremity Problem General Chief complaint: Extremity Injury, Upper Stated complaint: prickly sensation along the left arm Time Seen by Provider: 05/05/25 20:57 Source: patient Limitations: no limitations History of Present Illness ED Provider: Tammy Edwards PA-C HPI Narrative: 64-year-old female with known degenerative disc disease of the cervical region, status post C5-C6 fusion that has remote, tobacco abuse, COPD on supplemental oxygen at baseline, diabetes, hypertension, hyperlipidemia, chronic constipation, who presents with paresthesia of left upper extremity since 2010 . . Patient admits to having chronic left arm pain at her baseline. Patient primarily complains of left 2nd digit pain. When asked if she injured it, she sts she does not know. Denies new trauma to the neck. Denies weakness of upper extremity, chest pain, shortness of breath. Related Data Home Medications ?Medication ?Instructions ?Recorded ?Confirmed aspirin 81 mg tablet,delayed 81 mg PO BEDTIME 01/10/21 04/02/25 release (Adult Low Dose Aspirin) fluticasone fur. 100 mcg-umeclid 1 ea inhalation DAILY 02/05/25 04/02/25 62.5 mcg-vilant 25 mcg inhalat.powder (Trelegy Ellipta) ipratropium 0.5 mg-albuterol 3 mg 3 ml inhalation Q6H PRN wheezing 02/05/25 04/02/25 (2.5 mg base)/3 mL nebulization soln psyllium husk 0.52 gram capsule 1.04 g PO BID 04/02/25 04/02/25 (Fiber Laxative (psyllium husk)) sitagliptin phosphate 100 mg 100 mg PO DAILY 04/02/25 04/02/25 tablet (Januvia) Previous Rx's ?Medication ?Instructions ?Recorded blood-glucose meter (FreeStyle #1 ea 10/03/21 Lite Meter kit) lancets 28 gauge (FreeStyle #100 ea 01/06/22 Lancets) FreeStyle Lite Strips (blood sugar #100 ea 03/10/22 diagnostic) flash glucose scanning reader #1 ea 03/26/23 (FreeStyle Cristian 2 Roslyn) rosuvastatin 5 mg tablet 5 mg PO DAILY #90 tabs 07/11/24 baclofen 10 mg tablet 10 mg PO TID 30 days #90 tabs 08/24/24 gabapentin 800 mg tablet 800 mg PO TID 30 days #90 tabs 10/05/24 metformin 1,000 mg tablet 1,000 mg PO BID #180 tabs 11/28/24 losartan 50 mg tablet 50 mg PO DAILY #90 tabs 01/11/25 simethicone 180 mg capsule 180 mg PO QID #120 caps 02/01/25 (Anti-Gas Ultra Strength) nicotine 21 mg/24 hr daily 21 mg transdermal DAILY #7 ea 02/07/25 transdermal patch cholecalciferol (vitamin D3) 50 50 mcg PO DAILY #90 caps 02/20/25 mcg (2,000 unit) capsule amlodipine 5 mg tablet 5 mg PO DAILY #90 tabs 02/26/25 flash glucose sensor (FreeStyle #6 ea 03/28/25 Cristian 2 Sensor kit) linaclotide 72 mcg capsule 72 mcg PO QAM #30 caps 04/03/25 (Linzess) esomeprazole magnesium 40 mg 40 mg PO DAILY #30 caps 04/17/25 capsule,delayed release famotidine 40 mg tablet 40 mg PO BEDTIME #90 tabs 04/17/25 magnesium oxide 400 mg PO BEDTIME #30 caps 04/17/25 metoclopramide HCl 10 mg tablet 10 mg PO QIDACHS #180 tabs 04/17/25 (Reglan) doxycycline hyclate 100 mg capsule 100 mg PO BID cough 7 days #14 caps 04/18/25 dimethicone 5 % topical cream 1 appl topical QID PRN skin 04/27/25 (Soothe and Cool Inzo Barrier) irritation #118.29 mL metronidazole 250 mg tablet 250 mg PO TID 5 days #15 tabs 04/27/25 Allergies Allergy/AdvReac Type Severity Reaction Status Date / Time amoxicillin (AMOXICILLIN) Allergy Intermediate RASH Verified 05/05/25 20:12 Review of Systems Review of Systems: Yes all other systems are reviewed and are negative Constitutional: Constitutional: Denies fatigue and Denies fever(s) ENT: Denies neck pain Cardiovascular: Cardiovascular: Denies chest pain and Denies dyspnea Respiratory: Respiratory: Denies dyspnea Gastrointestinal: Gastrointestinal: Denies abdominal pain and Denies nausea Musculoskeletal: Musculoskeletal: Denies back pain, Reports arthralgias, Reports joint swelling, Denies muscle weakness, Denies neck pain, Denies numbness and Reports tingling Integumentary/Breasts: Skin/Breast: Denies erythema Neurologic: Denies numbness and Reports tingling Endocrine: Endocrine: Denies fatigue REPLACED BY [facility] Past Medical History Attestation statement: The following information was validated with the patient. Medical History (Updated 05/06/25 @ 00:12 by ADRIANNA Morales) COPD (chronic obstructive pulmonary disease) Chronic hypercapnic respiratory failure Mixed dyslipidemia Heavy cigarette smoker History of pneumonia COPD mixed type Gastritis Diabetic gastroparesis Diastolic CHF with preserved left ventricular function, NYHA class 2 Type 2 diabetes mellitus with other diabetic kidney complication Essential hypertension Smoker unmotivated to quit Postlaminectomy syndrome of cervical region Seasonal allergic rhinitis GERD (gastroesophageal reflux disease) Surgical History H/O cervical discectomy History of esophagogastroduodenoscopy (EGD) Hx of colonoscopy Family History Family History Mother Diabetes Sister Diabetes Mental health disorder Brother Diabetes Father HTN (hypertension) Social History Social History Household Members: Significant Other Housing: Other Housing Other:: Mobile home Are you a primary home care companion to a significant other at home: No Do you presently have visiting nurse or other home services: Yes (PCT) Alcohol intake: current Alcohol intake frequency: does not drink 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 Patient Tobacco Use Status: Current everyday Tobacco user Tobacco use type: Cigarette Cigarette Packs Per Day: 1 Cigarettes Per Day: 20.0 Years Smoked: 51 e-Cigarette/Vaping Use: Never Used Second Hand Smoke Exposure: Yes Advance Directives: Yes Advance Directives on File: Yes Advance Directives Date on File: 08/02/23 Do you have a plan to hurt others: No Plan service: No Current occupational status: unemployed and disabled Gender identity: Female Cognitive needs: No Hearing needs: No Vision needs: Yes Physical Exam Vital Signs: Vital Signs: Last Vital Signs Temp 97.6 F 05/05/25 20:06 Pulse 100 05/05/25 20:06 Resp 20 05/05/25 20:06 BP 123/58 L 05/05/25 20:06 Pulse Ox 92 05/05/25 20:06 O2 Del Method Nasal Cannula 05/05/25 20:06 Oxygen Flow Rate 2 05/05/25 20:06 BMI result Body Mass Index 23.3 Const: Other: Appears older than stated age Orientation/consciousness: patient oriented x3 Resp: Effort & Inspection: normal respiratory effort Cardio: Other: Normal peripheral perfusion Skin: Other: Warm dry no rash Neuro: General: patient oriented x3, gait normal, no focal motor deficits and CN's II-XI intact bilaterally Extrem: Other: Strength 5/5 bilateral upper extremities. The left index finger is subtly swollen and ecchymotic, she has full range of motion at the MCP PIP and DIP, she is warm and well perfused Psych: Other: Cooperative Course Course Course Narrative: This is an RME: Additional HPI, ROS, PE not included below will be deferred to primary provider. RME assessment and note performed by: Gena Valdez PA-C This is a 64-year-old female, PMH COPD/ emphysema, tobacco dependence 25 cigs per day, Home O2 dependent, pulmonary nodules, kidney ablation, cervical radiculopathy, TIA, GERD, NIDDM, depression/anxiety presents to ED with concerns of left index finger that radiates to her left elbow. Reporting chronic left arm pain. No chest pain. No overlying skin changes. Plan: basic labs, EKG Medical Decision Making Medical Decision Making MDM Narrative: 64-year-old female with known degenerative disc disease of the cervical region, status post C5-C6 fusion that has remote, tobacco abuse, COPD on supplemental oxygen at baseline, diabetes, hypertension, hyperlipidemia, chronic constipation, who presents with paresthesia of left upper extremity since 2010 . . Patient admits to having chronic left arm pain at her baseline. Patient primarily complains of left 2nd digit pain. When asked if she injured it, she sts she does not know. Denies new trauma to the neck. Denies weakness of upper extremity, chest pain, shortness of breath. Problem: Known degenerative disc disease of cervical region, diabetes, COPD, chronic pain History: Per patient I have considered the following differential diagnoses: Cervical radiculopathy, fracture, dislocation, contusion, diabetic neuropathy Plan: In reality, the patient is here for left index finger pain. The paresthesias of the left upper extremity are chronic. A cardiac workup was initiated from triage; labs including cardiac enzymes EKG. I did add on an x-ray of the neck to be sure there was no new changes with her chronic degenerative cervical disease. We will treat for contusion. I have independently reviewed the following tests: Labs: Chronic Slight leukocytosis, not anemic, no electrolyte abnormality, troponin 4.8, delta troponin 4.3 EKG: Normal sinus rhythm, rate of 100, no ischemic changes no ectopy no change with prior study, QTC 451 X-ray neck:Findings: Normal alignment. There is mild anterior superior endplate fracture at C3. Indeterminate whether this is acute or chronic. Osteopenia. C5-C6 anterior discectomy and fusion. No significant degenerative change. Prevertebral soft tissues within normal limits. IMPRESSION: Age-indeterminate T3 superior endplate fracture. Differential Diagnosis Differential Diagnoses: The differential diagnosis associated with the presentation includes See medical decision-making Admission/Observation Consideration of admission/observation: Escalation of care including admission/observation considered Not applicable Lab Data MDM Lab Attestation statement: I reviewed the patient's lab results. 05/05/25 20:42 05/05/25 20:42 Labs: Lab Results 05/05/25 05/05/25 Range/Units 20:42 23:18 WBC 14.6 H (4.8-10.8) X10*3/uL RBC 4.87 (4.20-5.50) X10*6/uL Hgb 11.0 L (12.0-16.0) g/dl Hct 38.3 (37.0-47.0) % MCV 78.6 L (80.0-98.0) fL MCH 22.6 L (27.0-33.0) pg MCHC 28.7 L (31.0-35.0) g/dl RDW 18.3 H (11.0-16.0) % Plt Count 343 (160-400) X10*3/uL MPV 9.3 L (9.4-12.3) fL Immature Gran % (Auto) 0.3 (0.0-0.4) % Neut % (Auto) 76.6 H (45-73) % Lymph % (Auto) 12.7 L (20-40) % Mckean % (Auto) 8.0 (2-11) % Eos % (Auto) 1.6 (0-4) % Baso % (Auto) 0.8 (0-2) % Lymph # (Auto) 1.9 (1.2-4.9) X10*3/uL Mckean # (Auto) 1.2 (0.1-1.2) X10*3/uL Eos # (Auto) 0.2 (0.0-0.4) X10*3/uL Baso # (Auto) 0.1 (0.0-0.2) X10*3/uL Abs Immat Gran (auto) 0.04 H (0.00-0.03) X10*3/uL Absolute Neuts (auto) 11.2 H (2.0-8.3) x10*3/uL Absolute Nucleated RBC 0.000 (0.0-0.012) X10*3/uL Nucleated RBC % (auto) 0.0 (0.0-0.2) /100WBC Sodium 144 (135-145) mmol/L Potassium 3.4 (3.3-5.1) mmol/L Chloride 100 (96-108) mmol/L Carbon Dioxide 30 H (22-29) mmol/L Anion Gap 17 (12-20) BUN 6 L (9-16) mg/dL Creatinine 0.45 L (0.5-1.4) mg/dL Estim Creat Clear Calc 86.3 Estimated GFR > 60 Random Glucose 125 H (60-115) mg/dL Calcium 10.1 (8.4-10.2) mg/dL Total Bilirubin 0.2 (0.0-1.0) mg/dL AST 16 (5-31) U/L ALT 6 (0-31) U/L Alkaline Phosphatase 84 (39-117) U/L Troponin I High Sens 4.8 4.3 (<3.5-17.0) ng/L Total Protein 7.0 (6.5-8.0) g/dL Albumin 4.4 (3.5-5.0) g/dL Independent Interpretation I performed an independent interpretation of an: EKG Radiology Impression Discussion of test interpretation with radiology: I have reviewed the radiologist's reading. Discharge Plan Discharge Clinical Impression: Contusion of left index finger Patient Disposition: Home, Self-Care Instructions: Contusion in Adults (ED), P.R.I.C.E. Treatment (ED) Additional Instructions: All of your screening labs were normal. There were no concerning changes on the EKG. There were no additional findings on the x-ray of your neck. Your finger appears bruised, see home care instructions for contusion. Follow up with primary care as needed. Prescriptions: No Action (DME) lancets [FreeStyle Lancets] 28 gauge misc See Rx Instructions .Route Qty: 100 5RF Rx Instructions: As directed twice a day AC (DME) FreeStyle Lite Strips Strip See Rx Instructions .Route Qty: 100 0RF Rx Instructions: check fasting blood sugar twice a day before meals (DME) FreeStyle Cristian 2 Roslyn Misc See Rx Instructions .Route Qty: 1 0RF Rx Instructions: test blood sugar 4 times per day rosuvastatin 5 mg tablet 5 mg PO DAILY Qty: 90 1RF baclofen 10 mg tablet 10 mg PO TID 30 Days Qty: 90 6RF gabapentin 800 mg tablet 800 mg PO TID 30 Days Qty: 90 6RF metformin 1,000 mg tablet 1,000 mg PO BID Qty: 180 3RF losartan 50 mg tablet 50 mg PO DAILY Qty: 90 1RF cholecalciferol (vitamin D3) 50 mcg (2,000 unit) capsule 50 mcg PO DAILY Qty: 90 1RF amlodipine 5 mg tablet 5 mg PO DAILY Qty: 90 1RF (DME) FreeStyle Cristian 2 Sensor Kit See Rx Instructions .Route Qty: 6 3RF Rx Instructions: Test blood sugar 4 times per day magnesium oxide 400 mg magnesium capsule 400 mg PO BEDTIME Qty: 30 0RF psyllium husk [Fiber Laxative (psyllium husk)] 0.52 gram capsule 1.04 g PO BID Januvia 100 mg tablet 100 mg PO DAILY Trelegy Ellipta 100-62.5-25 mcg blister with device 1 ea INHALATION DAILY ipratropium-albuterol 0.5 mg-3 mg(2.5 mg base)/3 mL solution for nebulization 3 ml inhalation Q6H PRN (Reason: wheezing) nicotine 21 mg/24 hr Patch 24 Hour 21 mg transdermal DAILY Qty: 7 0RF doxycycline hyclate 100 mg capsule 100 mg PO BID 7 Days Qty: 14 0RF Soothe and Cool Inzo Barrier 5 % cream 1 appl topical QID PRN (Reason: skin irritation) Qty: 118.29 0RF metronidazole 250 mg tablet 250 mg PO TID 5 Days Qty: 15 0RF aspirin [Adult Low Dose Aspirin] 81 mg tablet,delayed release (DR/EC) 81 mg PO BEDTIME (DME) blood-glucose meter [FreeStyle Lite Meter] Kit See Rx Instructions .Route Qty: 1 0RF Rx Instructions: As directed twice a day before meals famotidine 40 mg tablet 40 mg PO BEDTIME Qty: 90 2RF metoclopramide HCl [Reglan] 10 mg tablet 10 mg PO QIDACHS Qty: 180 6RF esomeprazole magnesium 40 mg capsule,delayed release(DR/EC) 40 mg PO DAILY Qty: 30 6RF simethicone [Anti-Gas Ultra Strength] 180 mg capsule 180 mg PO QID Qty: 120 6RF Linzess 72 mcg capsule 72 mcg PO QAM Qty: 30 6RF Print Language: Divehi
--- NOTE | 2025-05-05 20:28 | ECG_ITS ---
Test Reason : LEFT ARM PAIN Blood Pressure : */* mmHG Vent. Rate : 100 BPM Atrial Rate : 100 BPM P-R Int : 122 ms QRS Dur : 82 ms QT Int : 350 ms P-R-T Axes : 71 92 67 degrees QTcB Int : 451 ms Normal sinus rhythm Rightward axis Borderline ECG When compared with ECG of 18-Apr-2025 16:37, No significant change was found Referred By: Gena Valdez Electronically Signed By: SHANKAR GARCIA
[2025-05-05 20:48] LABS: MANUAL DIFF FLAG NO
[2025-05-05 20:56] LABS: Hematocrit 38.3 % (37.0-47.0); Hemoglobin 11.0 g/dl (12.0-16.0); Imm Gran Abs Auto 0.04 X10*3/uL (0.00-0.03); Imm Gran Pct Auto 0.3 % (0.0-0.4); Lymphocytes Absolute Auto 1.9 X10*3/uL (1.2-4.9); Mean Corpuscular HGB Conc 28.7 g/dl (31.0-35.0); Mean Corpuscular Hemoglobin 22.6 pg (27.0-33.0); Mean Corpuscular Volume 78.6 fL (80.0-98.0); NRBC Abs Auto 0.000 X10*3/uL (0.0-0.012); NRBC Pct Auto 0.0 /100WBC (0.0-0.2); Platelet Count 343 X10*3/uL (160-400); Red Blood Count 4.87 X10*6/uL (4.20-5.50); White Blood Count 14.6 X10*3/uL (4.8-10.8)
[2025-05-05 21:05] LABS: Alanine Aminotransferase 6 U/L (0-31); Albumin Level 4.4 g/dL (3.5-5.0); Alkaline Phosphatase 84 U/L (39-117); Anion Gap 17 (12-20); Aspartate Amino Transferase 16 U/L (5-31); Blood Urea Nitrogen 6 mg/dL (9-16); Calcium 10.1 mg/dL (8.4-10.2); Carbon Dioxide 30 mmol/L (22-29); Chloride 100 mmol/L (96-108); Creatinine Clr Calc Pharmacy 86.3; Estimated Glomerular Filt Rate > 60; Potassium 3.4 mmol/L (3.3-5.1); Sodium 144 mmol/L (135-145); Total Protein 7.0 g/dL (6.5-8.0)
[2025-05-05 21:12] LABS: Troponin-I High Sensitivity 4.8 ng/L (<3.5-17.0)
[2025-05-05 23:42] LABS: Troponin-I High Sensitivity 4.3 ng/L (<3.5-17.0)
[2025-05-06 00:19] VITALS: BP 140/52; PULSE 99; RESP 18; TEMP 36.7; O2SAT 94
[2025-05-06 00:56] VITALS: BP 140/52; PULSE 99; RESP 18; TEMP 36.7; O2SAT 94
== END 2025-05-06 00:57 | disposition home or self-care (01) ==
PROVIDERS: Physician Assistant Medical; Emergency Provider Emergency Medicine Emergency Medical Services; PCP Internal Medicine
DX: S60.022A Contusion of left index finger without damage to nail, initial encounter (principal); X58.XXXA Exposure to other specified factors, initial encounter; Y93.9 Activity, unspecified; Y92.9 Unspecified place or not applicable; Y99.9 Unspecified external cause status; M79.602 Pain in left arm
CPT/HCPCS: 36415; 72040; 80053; 84484; 85025; 93005; 99284

== ENCOUNTER → 2025-05-05 20:28 | Outpatient (BNV) | payer OTHER, SELFPAY | PROVIDERS: Emergency Provider Emergency Medicine Emergency Medical Services; PCP Internal Medicine; Visit Provider Internal Medicine | DX: M79.602 Pain in left arm (principal) | CPT/HCPCS: 93010 ==

== ENCOUNTER → 2025-05-05 20:57 | Outpatient (BNV) | payer OTHER, SELFPAY | PROVIDERS: PCP Internal Medicine; Visit Provider Radiology Diagnostic Radiology | DX: M54.2 Cervicalgia (principal) | CPT/HCPCS: 72040 ==

== ENCOUNTER 2025-05-09 13:22 | Emergency (ER) | payer OTHER, SELFPAY ==
[2025-05-09] VITALS (7 sets, daily range): BP systolic 132–158; BP diastolic 50–84; PULSE 95–104; RESP 17–30; TEMP 36.2–36.9; O2SAT 90–96; BMI 23.0
--- NOTE | ~2025-05-09 | XR_ITS ---
EXAMINATION: XR CHEST CLINICAL INFORMATION: shortness of breath COMPARISON: 04/18/2025 TECHNIQUE: Frontal view of the chest was obtained. FINDINGS: Pulmonary vessels appear slightly more prominent in the left upper lung than on the prior. Vague opacity in the right base has decreased and nearly resolved with thin linear scarring minimally tenting the right hemidiaphragm. Heart size is normal. Small focal calcification projects over the region of the right greater tuberosity of the humerus. XR/XR chest 1V IMPRESSION: Pulmonary vascularity in the left upper lung appears mildly more prominent than on the prior examination. This can be seen with pulmonary vascular congestion, but typically vessels are more prominent on the right than the left. Correlate clinically. Decreased vague right basilar density. Suspected calcific tendinitis involving the right rotator cuff, infraspinatus favored over supraspinatus tendon. Correlate for right shoulder symptoms. Electronically signed by: Abner Hansen MD 05/09/2025 03:31 PM EDT
--- NOTE | ~2025-05-09 | CT_ITS ---
CLINICAL HISTORY: altered mental status --- Additional Notes or Special Instructions: BREATHING TREATMENT @1700 CT head without contrast Comparison: CT/SR - CT HEAD/BRAIN WO IV CON - 04/01/25 22:30 EDT Findings: Scattered subcortical and periventricular hypoattenuation, likely in keeping with chronic small vessel ischemic disease. Parenchymal volume loss with compensatory prominence of the ventricles and CSF spaces. No acute territorial infarction, intracranial hemorrhage, midline shift or hydrocephalus. Redemonstrated lacunar infarcts right basal ganglia, with encephalomalacia/gliosis in the right parietal lobe. The visualized paranasal sinuses and mastoid air cells are normal. The orbits are within normal limits. No skull fracture. IMPRESSION: 1. No acute intracranial hemorrhage or territorial infarction. 2. Additional findings as described. This document has been electronically signed by: Vitor Arzola MD on 05/09/2025 18:52:49
--- NOTE | 2025-05-09 13:25 | ED_ITS ---
HPI - General Adult General Chief complaint: Dizziness Stated complaint: weakness, dizziness, mult compl Time Seen by Provider: 05/09/25 14:51 History of Present Illness ED Provider: Taina MORALES narrative: The patient is a 64-year-old woman who was a smoker who still smokes. She comes to the emergency room frequently. Today she came to the emergency room because she was feeling confused and dizzy. The patient is a very poor historian. When I ask her questions she had first seems to start answering but then just stares looking past me and stops answering any questions. I called the patient's boyfriend, Wiley Quiñonez, who says that yesterday the patient seemed ?a little out of it and today the patient seemed somewhat worse. He says that she seemed lightheaded and dizzy and ?was not all there. He says that it was her idea to come to the hospital. She asked him to drive her to the hospital. The boyfriend says that there were no other specific complaints. No fever. No increased cough. When I spoke to the patient she also seemed did denies specific complaints such as headache or chest pain or pleuritic pain or abdominal pain. There was no report of any vomiting or diarrhea. Boyfriend says that she is still smoking a lot. Other history was not really available because the patient was not a good historian. Related Data Home Medications ?Medication ?Instructions ?Recorded ?Confirmed aspirin 81 mg tablet,delayed 81 mg PO BEDTIME 01/10/21 05/07/25 release (Adult Low Dose Aspirin) fluticasone fur. 100 mcg-umeclid 1 ea inhalation DAILY 02/05/25 05/07/25 62.5 mcg-vilant 25 mcg inhalat.powder (Trelegy Ellipta) ipratropium 0.5 mg-albuterol 3 mg 3 ml inhalation Q6H PRN wheezing 02/05/25 05/07/25 (2.5 mg base)/3 mL nebulization soln psyllium husk 0.52 gram capsule 1.04 g PO BID 04/02/25 05/07/25 (Fiber Laxative (psyllium husk)) sitagliptin phosphate 100 mg 100 mg PO DAILY 04/02/25 05/07/25 tablet (Januvia) Previous Rx's ?Medication ?Instructions ?Recorded blood-glucose meter (FreeStyle #1 ea 10/03/21 Lite Meter kit) lancets 28 gauge (FreeStyle #100 ea 01/06/22 Lancets) FreeStyle Lite Strips (blood sugar #100 ea 03/10/22 diagnostic) flash glucose scanning reader #1 ea 03/26/23 (FreeStyle Cristian 2 [place]) rosuvastatin 5 mg tablet 5 mg PO DAILY #90 tabs 07/11 baclofen 10 mg tablet 10 mg PO TID 30 days #90 tab s 08/24/24 gabapentin 800 mg tablet 800 mg PO TID 30 days #90 ta bs 10/05/24 metformin 1,000 mg tablet 1,000 mg PO BID #180 tabs losartan 50 mg tablet 50 mg PO DAILY #90 tabs 12/15 05/10 simethicone 180 mg capsule 180 mg PO QID #120 caps (Anti-Gas Ultra Strength) nicotine 21 mg/24 hr daily 21 mg transdermal DAILY #7 ea 02/07/25 transdermal patch cholecalciferol (vitamin D3) 50 50 mcg PO DAILY #90 ca ps 02/20/25 mcg (2,000 unit) capsule amlodipine 5 mg tablet 5 mg PO DAILY #90 tabs 02/26 flash glucose sensor (FreeStyle #6 ea 03/28/25 Cristian 2 Sensor kit) linaclotide 72 mcg capsule 72 mcg PO QAM #30 caps 03/16 05/10 (Linzess) esomeprazole magnesium 40 mg 40 mg PO DAILY #30 caps 0 04/17/25 capsule,delayed release famotidine 40 mg tablet 40 mg PO BEDTIME #90 tabs magnesium oxide 400 mg PO BEDTIME #30 caps 0 04/17/25 metoclopramide HCl 10 mg tablet 10 mg PO QIDACHS #180 tabs 04/17/25 (Reglan) doxycycline hyclate 100 mg capsule 100 mg PO BID cough 7 days #14 caps 04/18/25 dimethicone 5 % topical cream 1 appl topical QID PRN s kin 04/27/25 (Soothe and Cool Inzo Barrier) irritation #118.29 mL metronidazole 250 mg tablet 250 mg PO TID 5 days #15 t abs 04/27/25 prednisone 20 mg tablet 40 mg (2 x 20 mg) PO DAILY 5 days 05/09/25 #10 tabs Allergies Allergy/AdvReac Type Severity Reaction Status Date / Time amoxicillin (AMOXICILLIN) Allergy Intermediate RASH Verified 05/09/25 13:26 Review of Systems 2 Review of Systems: Yes all other systems are reviewed and are negative [facility] Past Medical History Medical History (Updated 05/09/25 @ 21:12 by Wesley Her MD) COPD (chronic obstructive pulmonary disease) Chronic hypercapnic respiratory failure Mixed dyslipidemia Heavy cigarette smoker History of pneumonia COPD mixed type Gastritis Diabetic gastroparesis Diastolic CHF with preserved left ventricular function, NYHA class 2 Type 2 diabetes mellitus with other diabetic kidney complication Essential hypertension Smoker unmotivated to quit Postlaminectomy syndrome of cervical region Seasonal allergic rhinitis GERD (gastroesophageal reflux disease) Surgical History H/O cervical discectomy History of esophagogastroduodenoscopy (EGD) Hx of colonoscopy Family History Family History Mother Diabetes Sister Diabetes Mental health disorder Brother Diabetes Father HTN (hypertension) Social History Social History Household Members: Significant Other Housing: Other Housing Other:: Mobile home Are you a primary resident care assistant to a significant other at home: No Do you presently have visiting nurse or other home services: Yes (PCT) Alcohol intake: current Alcohol intake frequency: does not drink 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 Patient Tobacco Use Status: Current everyday Tobacco user Tobacco use type: Cigarette Cigarette Packs Per Day: 1 Cigarettes Per Day: 20.0 Years Smoked: 51 e-Cigarette/Vaping Use: Never Used Second Hand Smoke Exposure: Yes Advance Directives Date on File: 08/02/23 service: No Current occupational status: unemployed and disabled Gender identity: Female Cognitive needs: No Hearing needs: No Vision needs: Yes Physical Exam ED Vital Signs: Vital Signs - 24 hr 05/09/25 13:24 05/09/25 13:39 05/09/25 15:48 Temperature 97.8 F 97.8 F 98.4 F Pulse Rate 100 96 98 Respiratory Rate 20 30 H 17 Blood Pressure 158/73 H 151/56 H 145/53 H Pulse Oximetry 90 L 96 96 Oxygen Delivery Method Nasal Cannula Nasal Cannula Nasal Cannula Oxygen Flow Rate 2 2 05/09/25 16:42 05/09/25 17:34 05/09/25 20:50 Temperature 98 F Pulse Rate 98 104 H 100 Respiratory Rate 22 H 30 H 20 Blood Pressure 132/50 L Pulse Oximetry 94 Oxygen Delivery Method Nasal Cannula Oxygen Flow Rate 2 05/09/25 21:43 Temperature 97.2 F Pulse Rate 95 Respiratory Rate 20 Blood Pressure 154/84 H Pulse Oximetry 92 Oxygen Delivery Method Nasal Cannula Oxygen Flow Rate 3 BMI result Body Mass Index 23.0 Const Other: The patient is a thin, chronically ill-appearing 64-year-old woman who looked mildly tachypneic. She was awake and would answer questions briefly but then would seemed to lose her train of thought fairly quickly. She was not disoriented however. She could tell me the correct day of the week, day of the month, month, and year. She knew that she was at [facility]'s Emergency room. HENMT Other: The face is symmetrical. ?Mucous membranes moist. Eyes Other: Pupils are round equal, conjunctivae are clear, extraocular movements intact Neck Neck: Yes normal visual inspection, Yes full ROM, Yes no lymphadenopathy and Yes no JVD Resp Other: Some coarse air entry bilaterally without calvin crackles. Mild tachypnea. No accessory muscle use. Cardio Rate: regular rate Rhythm: regular rhythm Heart sounds: S1 normal heart sound present and S2 normal heart sound present GI Other: Abdomen is soft and nontender Skin Other: The skin is dry and unremarkable Neuro Other: The patient was awake and she was appropriately oriented but she seemed to have a very short attention span and would seem only be able to answer very straight forward questions with brief answers. However her cranial nerves seemed intact. Her neck was supple. She moved her extremities symmetrically. She did not seem to have a lateralizing finding. Extrem Other: There is no calf swelling or tenderness. No asymmetry. No peripheral edema. Course Course Course Narrative: This is a rapid medical exam performed by Srinivas Munson NP: Additional HPI, ROS, PE not included below will be deferred to primary provider. Patient is a 64y/o F pmhx COPD on O2 @ baseline, smoking, T2DM, diabetic gastroparesis, CHF, HTN, GERD presenting with complaint of feeling dizzy and lightheaded which began this afternoon. Family stating patient seems altered as compared to baseline, patient describing herself as incoherent but answers questions appropriately in triage. Plan: EKG, labs, viral swabs Medications Administered Discontinued Medications Generic Name Dose Route Start Last Admin Trade Name Jordon PRN Reason Stop Dose Admin Albuterol/Ipratropium 3 ml 05/09/25 20:07 05/09/25 20:50 Albuterol/Iprat 2.5/0.5mg 3 Ml Ampul.Neb INHALE 05/09/25 20:08 3 ml ONCE ONE Administration Albuterol Sulfate 5 mg/ 0 mg 05/09/25 16:36 05/09/25 16:42 Albuterol/Ipratropium 3 ml INHALE 05/09/25 16:37 1 each ONCE ONE Administration Gabapentin 800 mg 05/09/25 16:32 05/09/25 16:38 Gabapentin 600 Mg Tablet PO 05/09/25 16:33 800 mg ONCE ONE Administration Methylprednisolone Sodium Succinate 80 mg 05/09/25 16:27 05/09/25 16:39 Methylprednisolone Sod Succ 125 Mg/2 Ml Vial IVPUSH 05/09/25 16:28 80 mg ONCE ONE Administration Medical Decision Making Medical Decision Making [facility] Narrative: The patient is a chronically ill 64-year-old with a COPD. She is a long-time smoker who still smokes. 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 Bert Handy. The patient presented with a very vague complaint of dizziness and lightheadedness. I thought that she was somewhat tachypneic. She did not seem to be in calvin respiratory distress however. Your testing in the emergency room was largely negative aside from a venous blood gas with a pCO2 of 64. However this seems well compensated. Her pH was 7.41. The patient was given IV steroids and bronchodilator updraft treatments. Because of her slightly abnormal mental status a head CT was done that was negative. Chest x-ray shows no acute finding. She has no significant elevation of her white count or her CRP. I think she is not septic. Other labs include a normal ammonia, normal ETOH. The patient seemed to have a significant improvement in her mental status after treatment with a bronchodilator treatment and a dose of IV methylprednisolone. She was much more alert and she asked for food. She was able to sit up and eat food appropriately. At that point she said that she wanted to go home. Her oxygen saturation at that point was 88% on 2 L nasal cannula (she is on 2 L nasal cannula at home). I repeated her venous blood gas. Her venous blood gas with a an improved mental status showed a pCO2 of 52. At that point I suggested the patient that she be hospitalized. I think she is a very tenuous patient with the thin line between hypoxia and hypercarbia. The patient initially agreed to allow herself to be hospitalized. At that point I also ordered an IV dose of azithromycin. I contacted the hospitalist. However before the patient was formally admitted to the hospitalist service she announced that she had changed her mind and did not wish to be hospitalized. I explained my concerns that her medical status was very tenuous. Nevertheless she insisted that she be allowed to be discharged. She understands that her health is tenuous and she understands that she could deteriorate significantly at home even with putting her life in danger. She seems to have a sufficiently normal mental status that I feel she has capacity to make her decisions. I therefore contacted her boyfriend who came to the emergency room to pick her up. She will be prescribed a course of prednisone for the next several days, 40 mg daily x5 days. She is also advised to use the azithromycin she already has a at home and is currently taking 3 times a week she take this daily for at least 5 days. She should use her albuterol nebulizer machine every 4 hours for the next several days. She should follow up with her PCP and her computer aided design drafter. She should return if worse. Lab Data 05/09/25 13:50 05/09/25 13:50 Labs: Lab Results 05/09/25 05/09/25 05/09/25 Range/Units 13:50 15:26 15:31 WBC 11.5 H (4.8-10.8) X10*3/uL RBC 4.51 (4.20-5.50) X10*6/uL Hgb 10.1 L (12.0-16.0) g/dl Hct 35.2 L (37.0-47.0) % MCV 78.0 L (80.0-98.0) fL MCH 22.4 L (27.0-33.0) pg MCHC 28.7 L (31.0-35.0) g/dl RDW 18.1 H (11.0-16.0) % Plt Count 342 (160-400) X10*3/uL MPV 9.2 L (9.4-12.3) fL Immature Gran % (Auto) 0.4 (0.0-0.4) % Neut % (Auto) 73.6 H (45-73) % Lymph % (Auto) 15.8 L (20-40) % Bullock % (Auto) 7.2 (2-11) % Eos % (Auto) 2.2 (0-4) % Baso % (Auto) 0.8 (0-2) % Lymph # (Auto) 1.8 (1.2-4.9) X10*3/uL Bullock # (Auto) 0.8 (0.1-1.2) X10*3/uL Eos # (Auto) 0.3 (0.0-0.4) X10*3/uL Baso # (Auto) 0.1 (0.0-0.2) X10*3/uL Abs Immat Gran (auto) 0.05 H (0.00-0.03) X10*3/uL Absolute Neuts (auto) 8.5 H (2.0-8.3) x10*3/uL Absolute Nucleated RBC 0.000 (0.0-0.012) X10*3/uL Nucleated RBC % (auto) 0.0 (0.0-0.2) /100WBC PT 11.6 (10.9-12.4) SEC INR 1.0 (0.9-1.1) D-Dimer High Sensitivty < 150 NG/ML VBG pH 7.41 (7.32-7.43) VBG pCO2 64 mmHg VBG pO2 97 mmHg VBG HCO3 41 H (22-26) mmol/L VBG O2 Saturation 99.0 % VBG Base Excess 14.5 mmol/L Sodium 145 (135-145) mmol/L Potassium 3.7 (3.3-5.1) mmol/L Chloride 99 (96-108) mmol/L Carbon Dioxide 37 H (22-29) mmol/L Anion Gap 13 (12-20) BUN 4 L (9-16) mg/dL Creatinine 0.37 L (0.5-1.4) mg/dL Estim Creat Clear Calc 106.1 Estimated GFR > 60 Random Glucose 135 H (60-115) mg/dL Lactic Acid (0.5-2.0) mmol/L Calcium 9.9 (8.4-10.2) mg/dL Magnesium 1.6 (1.6-2.6) mg/dL Total Bilirubin 0.2 (0.0-1.0) mg/dL AST 19 (5-31) U/L ALT 6 (0-31) U/L Alkaline Phosphatase 91 (39-117) U/L Ammonia 34 (13-55) umol/L Troponin I High Sens 4.0 (<3.5-17.0) ng/L C-Reactive Protein 1.23 H (< or = 0.50) mg/dL NT-Pro-B Natriuret Pep 53.1 (<300) pg/mL Total Protein 6.9 (6.5-8.0) g/dL Albumin 4.2 (3.5-5.0) g/dL Vitamin B12 (200-900) pg/mL Folate (> or = 4.0) ng/mL Urine Color Urine Appearance Urine pH (5.0-9.0) Ur Specific [place] (1.005-1.025) Urine Protein (Neg-Trace) mg/dL Urine Glucose (UA) (Negative) mg/dL Urine Ketones (Negative) mg/dL Urine Blood (Negative) Urine Nitrite (Negative) Ur Leukocyte Esterase (Negative) Salicylates < 5.0 L (15-30) mg/dL Urine Opiates Screen (Not Detect) Ur Buprenorphine Scrn (Not Detect) ng/mL Ur Oxycodone Screen (Not Detect) ng/mL Urine Methadone Screen (Not Detect) ng/mL Urine Fentanyl Screen (Not Detect) Acetaminophen < 3 (<30) mcg/mL Ur Barbiturates Screen (Not Detect) Ur Phencyclidine Scrn (Not Detect) Ur Amphetamines Screen (Not Detect) U Benzodiazepines Scrn (Not Detect) Urine Cocaine Screen (Not Detect) U Marijuana (THC) Screen (Not Detect) Ethyl Alcohol < 10 mg/dL COVID-19 (JN) Negative (Negative) COVID-19 Clin Com See Note Influenza Type A (VERN) Negative (Negative) Influenza Type B (VERN) Negative (Negative) Influenza A & B Note See Note 05/09/25 05/09/25 05/09/25 Range/Units 17:22 19:26 21:13 WBC (4.8-10.8) X10*3/uL RBC (4.20-5.50) X10*6/uL Hgb (12.0-16.0) g/dl Hct (37.0-47.0) % MCV (80.0-98.0) fL MCH (27.0-33.0) pg MCHC (31.0-35.0) g/dl RDW (11.0-16.0) % Plt Count (160-400) X10*3/uL MPV (9.4-12.3) fL Immature Gran % (Auto) (0.0-0.4) % Neut % (Auto) (45-73) % Lymph % (Auto) (20-40) % Bullock % (Auto) (2-11) % Eos % (Auto) (0-4) % Baso % (Auto) (0-2) % Lymph # (Auto) (1.2-4.9) X10*3/uL [place] # (Auto) (0.1-1.2) X10*3/uL Eos # (Auto) (0.0-0.4) X10*3/uL Baso # (Auto) (0.0-0.2) X10*3/uL Abs Immat Gran (auto) (0.00-0.03) X10*3/uL Absolute Neuts (auto) (2.0-8.3) x10*3/uL Absolute Nucleated RBC (0.0-0.012) X10*3/uL Nucleated RBC % (auto) (0.0-0.2) /100WBC PT (10.9-12.4) SEC INR (0.9-1.1) D-Dimer High Sensitivty NG/ML VBG pH 7.48 H (7.32-7.43) VBG pCO2 52 mmHg VBG pO2 64 mmHg VBG HCO3 38 H (22-26) mmol/L VBG O2 Saturation 89.0 % VBG Base Excess 13.5 mmol/L Sodium (135-145) mmol/L Potassium (3.3-5.1) mmol/L Chloride (96-108) mmol/L Carbon Dioxide (22-29) mmol/L Anion Gap (12-20) BUN (9-16) mg/dL Creatinine (0.5-1.4) mg/dL Estim Creat Clear Calc Estimated GFR Random Glucose (60-115) mg/dL Lactic Acid 1.3 (0.5-2.0) mmol/L Calcium (8.4-10.2) mg/dL Magnesium (1.6-2.6) mg/dL Total Bilirubin (0.0-1.0) mg/dL AST (5-31) U/L ALT (0-31) U/L Alkaline Phosphatase (39-117) U/L Ammonia (13-55) umol/L Troponin I High Sens (<3.5-17.0) ng/L C-Reactive Protein (< or = 0.50) mg/dL NT-Pro-B Natriuret Pep (<300) pg/mL Total Protein (6.5-8.0) g/dL Albumin (3.5-5.0) g/dL Vitamin B12 247 (200-900) pg/mL Folate 12.5 (> or = 4.0) ng/mL Urine Color Yellow Urine Appearance Cloudy Urine pH 8.0 (5.0-9.0) Ur Specific [place] 1.010 (1.005-1.025) Urine Protein Negative (Neg-Trace) mg/dL Urine Glucose (UA) Negative (Negative) mg/dL Urine Ketones Negative (Negative) mg/dL Urine Blood Negative (Negative) Urine Nitrite Negative (Negative) Ur Leukocyte Esterase Negative (Negative) Salicylates (15-30) mg/dL Urine Opiates Screen Not Detected (Not Detect) Ur Buprenorphine Scrn Not Detected (Not Detect) ng/mL Ur Oxycodone Screen Not Detected (Not Detect) ng/mL Urine Methadone Screen Not Detected (Not Detect) ng/mL Urine Fentanyl Screen Not Detected (Not Detect) Acetaminophen (<30) mcg/mL Ur Barbiturates Screen Not Detected (Not Detect) Ur Phencyclidine Scrn Not Detected (Not Detect) Ur Amphetamines Screen Not Detected (Not Detect) U Benzodiazepines Scrn Not Detected (Not Detect) Urine Cocaine Screen Not Detected (Not Detect) U Marijuana (THC) Screen Not Detected (Not Detect) Ethyl Alcohol mg/dL COVID-19 (JN) (Negative) COVID-19 Clin Com Influenza Type A (VERN) (Negative) Influenza Type B (VERN) (Negative) Influenza A & B Note Discharge Plan Discharge Clinical Impression: Acute exacerbation of chronic obstructive pulmonary disease Patient Disposition: Home, Self-Care Additional Instructions: Please take the prednisone prescribed once a day. Please use your albuterol nebulizer machine every 4 hours for the next several days. Please also increase your azithromycin use for the next 5 days. Take this medication daily for at least 5 days. I believe you have this medication in supply at home. Please contact your pulmonology doctor, Dr. Bert Handy at [facility], in the morning to make a follow up appointment. Also contact your primary care doctor for a follow up appointment and follow up with both of your doctors. If you feel significantly worse at any time please return to the emergency department. Prescriptions: New prednisone 20 mg tablet 40 mg PO DAILY 5 Days Qty: 10 0RF No Action (DME) lancets [FreeStyle Lancets] 28 gauge misc See Rx Instructions .Route Qty: 100 5RF Rx Instructions: As directed twice a day AC (DME) FreeStyle Lite Strips Strip See Rx Instructions .Route Qty: 100 0RF Rx Instructions: check fasting blood sugar twice a day before meals (DME) FreeStyle Cristian 2 [place] Misc See Rx Instructions .Route Qty: 1 0RF Rx Instructions: test blood sugar 4 times per day rosuvastatin 5 mg tablet 5 mg PO DAILY Qty: 90 1RF baclofen 10 mg tablet 10 mg PO TID 30 Days Qty: 90 6RF gabapentin 800 mg tablet 800 mg PO TID 30 Days Qty: 90 6RF metformin 1,000 mg tablet 1,000 mg PO BID Qty: 180 3RF losartan 50 mg tablet 50 mg PO DAILY Qty: 90 1RF cholecalciferol (vitamin D3) 50 mcg (2,000 unit) capsule 50 mcg PO DAILY Qty: 90 1RF amlodipine 5 mg tablet 5 mg PO DAILY Qty: 90 1RF (DME) FreeStyle Cristian 2 Sensor Kit See Rx Instructions .Route Qty: 6 3RF Rx Instructions: Test blood sugar 4 times per day magnesium oxide 400 mg magnesium capsule 400 mg PO BEDTIME Qty: 30 0RF psyllium husk [Fiber Laxative (psyllium husk)] 0.52 gram capsule 1.04 g PO BID Januvia 100 mg tablet 100 mg PO DAILY Trelegy Ellipta 100-62.5-25 mcg blister with device 1 ea INHALATION DAILY ipratropium-albuterol 0.5 mg-3 mg(2.5 mg base)/3 mL solution for nebulization 3 ml inhalation Q6H PRN (Reason: wheezing) nicotine 21 mg/24 hr Patch 24 Hour 21 mg transdermal DAILY Qty: 7 0RF doxycycline hyclate 100 mg capsule 100 mg PO BID 7 Days Qty: 14 0RF Soothe and Cool Inzo Barrier 5 % cream 1 appl topical QID PRN (Reason: skin irritation) Qty: 118.29 0RF metronidazole 250 mg tablet 250 mg PO TID 5 Days Qty: 15 0RF aspirin [Adult Low Dose Aspirin] 81 mg tablet,delayed release (DR/EC) 81 mg PO BEDTIME (DME) blood-glucose meter [FreeStyle Lite Meter] Kit See Rx Instructions .Route Qty: 1 0RF Rx Instructions: As directed twice a day before meals famotidine 40 mg tablet 40 mg PO BEDTIME Qty: 90 2RF metoclopramide HCl [Reglan] 10 mg tablet 10 mg PO QIDACHS Qty: 180 6RF esomeprazole magnesium 40 mg capsule,delayed release(DR/EC) 40 mg PO DAILY Qty: 30 6RF simethicone [Anti-Gas Ultra Strength] 180 mg capsule 180 mg PO QID Qty: 120 6RF Linzess 72 mcg capsule 72 mcg PO QAM Qty: 30 6RF Referrals: Magalie Nicolas MD [Primary Care Provider, Internal Medicine] Interventions: ED Discharge Assessment Last Done: 05/09/25 21:43 Discharge Date/Time: 05/09/25 21:48 Print Language: Burkinan
--- NOTE | 2025-05-09 13:28 | ECG_ITS ---
Test Reason : SOB Blood Pressure : */* mmHG Vent. Rate : 96 BPM Atrial Rate : 96 BPM P-R Int : 126 ms QRS Dur : 82 ms QT Int : 370 ms P-R-T Axes : 72 87 67 degrees QTcB Int : 467 ms Normal sinus rhythm Normal ECG When compared with ECG of 05-May-2025 20:36, No significant change was found Referred By: Laly Munson Electronically Signed By: Allen Gant
[2025-05-09 13:54] LABS: MANUAL DIFF FLAG NO
--- NOTE | 2025-05-09 13:55 | PC.NURSE ---
Pt alert and oriented x 4 but her responses are delayed. Reports that she feels weak. Does not use cane or walker at home. This has come and gone, but she is not sure for how long. Moving all extremities. Swallowing water without difficulty. Reports that she took some but not all of her usual medications today. Reports left elbow pain 9/10, which is chronic. Takes gabapentin for pain. Respirations in 20's and 30's. Tachy in low 100's. Uses 2L O2 at baseline, satting 97% at rest, but she did desat with activity. Active smoker. Resting comfortably now.
[2025-05-09 14:00] LABS: Hematocrit 35.2 % (37.0-47.0); Hemoglobin 10.1 g/dl (12.0-16.0); Imm Gran Abs Auto 0.05 X10*3/uL (0.00-0.03); Imm Gran Pct Auto 0.4 % (0.0-0.4); Lymphocytes Absolute Auto 1.8 X10*3/uL (1.2-4.9); Mean Corpuscular HGB Conc 28.7 g/dl (31.0-35.0); Mean Corpuscular Hemoglobin 22.4 pg (27.0-33.0); Mean Corpuscular Volume 78.0 fL (80.0-98.0); NRBC Abs Auto 0.000 X10*3/uL (0.0-0.012); NRBC Pct Auto 0.0 /100WBC (0.0-0.2); Platelet Count 342 X10*3/uL (160-400); Red Blood Count 4.51 X10*6/uL (4.20-5.50); White Blood Count 11.5 X10*3/uL (4.8-10.8)
[2025-05-09 14:02] LABS: INTERNATIONAL NORM RATIO 1.0 (0.9-1.1); Prothrombin Time 11.6 SEC (10.9-12.4)
[2025-05-09 14:12] LABS: Alanine Aminotransferase 6 U/L (0-31); Albumin Level 4.2 g/dL (3.5-5.0); Alkaline Phosphatase 91 U/L (39-117); Anion Gap 13 (12-20); Aspartate Amino Transferase 19 U/L (5-31); Blood Urea Nitrogen 4 mg/dL (9-16); Calcium 9.9 mg/dL (8.4-10.2); Carbon Dioxide 37 mmol/L (22-29); Chloride 99 mmol/L (96-108); Creatinine Clr Calc Pharmacy 106.1; Estimated Glomerular Filt Rate > 60; Magnesium 1.6 mg/dL (1.6-2.6); Potassium 3.7 mmol/L (3.3-5.1); Sodium 145 mmol/L (135-145); Total Protein 6.9 g/dL (6.5-8.0)
[2025-05-09 14:16] LABS: Troponin-I High Sensitivity 4.0 ng/L (<3.5-17.0)
[2025-05-09 14:30] LABS: COVID-19 Test Negative (Negative); IDNOW Serial# 55D5AD1C; IDNOW Serial# 58CA691E; Influenza B2 Negative (Negative)
[2025-05-09 15:39] LABS: Ammonia 34 umol/L (13-55)
[2025-05-09 15:53] LABS: Acetaminophen LAB < 3 mcg/mL (<30); Salicylate < 5.0 mg/dL (15-30)
[2025-05-09 16:08] LABS: VBG HCO3 41 mmol/L (22-26); VBG O2 % Saturation 99.0 %
[2025-05-09 16:08] LABS: Venous Blood Gas Refer to POC result
[2025-05-09 16:14] LABS: D Dimer High Sensitivity < 150 NG/ML
[2025-05-09] MEDS: Albuterol Sulfate 5 MG, Albuterol/Iprat 2.5/0.5MG 3 ML 3 ML INHALE (16:42)
[2025-05-09 16:57] LABS: NT Pro B Type Natriuretic Pept 53.1 pg/mL (<300)
[2025-05-09 17:31] LABS: Appearance Urine Cloudy; Glucose Urine UA Negative (Negative); PH 8.0 (5.0-9.0); Specific Gravity - Urine 1.010 (1.005-1.025)
--- NOTE | 2025-05-09 17:37 | PC.NURSE ---
Pt is very tremulous, having more difficulty finding words. Reports gabapentin only somewhat helpful for pain.
[2025-05-09 17:46] LABS: Cannabinoid Screen Urine Not Detected (Not Detect)
[2025-05-09 19:29] LABS: Venous Blood Gas Refer to POC result
[2025-05-09 19:30] LABS: VBG HCO3 38 mmol/L (22-26); VBG O2 % Saturation 89.0 %
--- NOTE | 2025-05-09 20:36 | PC.NURSE ---
Assumed care of pt presents with dizziness/confusion, hx of COPD 2L NC at baseline, pt aaox4, breathing appears to normal for the pt, pending dispo
[2025-05-09] MEDS: Albuterol/Iprat 2.5/0.5MG 3 ML AMPUL.NEB INHALE (20:50)
[2025-05-09 22:11] LABS: Folate 12.5 ng/mL (> or = 4.0); Vitamin B12 247 pg/mL (200-900)
[2025-05-10 03:54] LABS: Syphilis Screen Nonreactive (Nonreactive)
== END 2025-05-09 21:48 | disposition home or self-care (01) ==
PROVIDERS: Physician Assistant; Registered Nurse Emergency; Emergency Provider Emergency Medicine; PCP Internal Medicine
DX: J44.9 Chronic obstructive pulmonary disease, unspecified (principal); R42 Dizziness and giddiness; R06.02 Shortness of breath; Z51.81 Encounter for therapeutic drug level monitoring; Z87.891 Personal history of nicotine dependence; Z79.899 Other long term (current) drug therapy; Z11.52 Encounter for screening for COVID-19
CPT/HCPCS: 36415; 70450; 71045; 80053; 80143; 80179; 80307; 81003; 82140; 82607; 82746; 82803; 83605; 83735; 83880; 84484; 85025; 85379; 85610; 86140; 86780; 87040; 87502; 87635; 93005; 94640; 99285; J2919

== ENCOUNTER → 2025-05-09 13:28 | Outpatient (BNV) | payer OTHER, SELFPAY | PROVIDERS: Emergency Provider Emergency Medicine; PCP Internal Medicine; Visit Provider Internal Medicine Cardiovascular Disease | DX: R06.02 Shortness of breath (principal) | CPT/HCPCS: 93010 ==

== ENCOUNTER → 2025-05-09 15:07 | Outpatient (BNV) | payer OTHER, SELFPAY | PROVIDERS: Emergency Provider Emergency Medicine; PCP Internal Medicine; Visit Provider Radiology Diagnostic Radiology | DX: R41.82 Altered mental status, unspecified (principal); R91.8 Other nonspecific abnormal finding of lung field; I28.9 Disease of pulmonary vessels, unspecified | CPT/HCPCS: 70450; 71045 ==

== ENCOUNTER 2025-05-16 09:34 | Inpatient (IN) | payer OTHER, SELFPAY ==
[2025-05-16] VITALS (7 sets, daily range): BP systolic 121–141; BP diastolic 57–80; PULSE 97–109; RESP 14–24; TEMP 36.4–36.8; O2SAT 86–96; BMI 22.5; BMI 23.1
--- NOTE | ~2025-05-16 | XR_ITS ---
EXAMINATION: XR CHEST CLINICAL INFORMATION: short of breath COMPARISON: May 09, 2025 TECHNIQUE: PA and lateral views FINDINGS: Pulmonary reticular pattern. No consolidation pleural effusion or pneumothorax. No hyperinflation. Cardiomediastinal silhouette size is normal. Calcified plaque thoracic aorta. Multilevel spondylosis. Osteopenia versus osteoporosis. Metallic hardware in the lower cervical spine no fully included in the [id number]. XR/XR chest 2V IMPRESSION: Chronic interstitial lung disease. Superimposed acute small airway inflammatory processes should be considered in the correct clinical settings. Electronically signed by: Faustino Norton MD 05/16/2025 11:26 AM EDT
--- NOTE | 2025-05-16 09:51 | ED.GENADULT ---
HPI - General Adult General Chief complaint: Dyspnea Stated complaint: SOB, 93% ON 2LPM PER EMS Time Seen by Provider: 05/16/25 09:35 Source: patient and EMS Mode of arrival: EMS Limitations: no limitations History of Present Illness ED Provider: ALLISON KEYS PA-C HPI narrative: 64 year old female with pmhx significant for degenerative disc disease of the cervical region, tobacco dependence, COPD on 2L supplemental oxygen at baseline, diabetes, hypertension, hyperlipidemia, chronic constipation presents to the ED via ambulance for evaluation of shortness of breath. Her dyspnea worsened from baseline this morning. Patient reports compliance with her oxygen. He has not had to increase her O2. Still smoking tobacco. She completed prior course of steroid/abx as prescribed on 05/10. Admits to continued chronic cough with more purulent sputum. Endorses weakness and fatigue, feels dehydrated. States she is not eating or drinking much. Endorses slight nausea without vomiting. Denies chest pain, palpitations, diarrhea, fevers/chills. Related Data Home Medications ?Medication ?Instructions ?Recorded ?Confirmed aspirin 81 mg tablet,delayed 81 mg PO BEDTIME 01/10/21 05/16/25 release (Adult Low Dose Aspirin) fluticasone fur. 100 mcg-umeclid 1 ea inhalation DAILY 02/05/25 05/16/25 62.5 mcg-vilant 25 mcg inhalat.powder (Trelegy Ellipta) psyllium husk 0.52 gram capsule 1.04 g PO BID 04/02/25 05/16/25 (Fiber Laxative (psyllium husk)) sitagliptin phosphate 100 mg 100 mg PO DAILY 04/02/25 05/16/25 tablet (Januvia) azithromycin 250 mg tablet 250 mg PO TUTHSA 05/16/25 05/16/25 Previous Rx's ?Medication ?Instructions ?Recorded blood-glucose meter (FreeStyle #1 ea 10/03/21 Lite Meter kit) lancets 28 gauge (FreeStyle #100 ea 01/06/22 Lancets) FreeStyle Lite Strips (blood sugar #100 ea 03/10/22 diagnostic) flash glucose scanning reader #1 ea 03/26/23 (FreeStyle Cristian 2 [place]) rosuvastatin 5 mg tablet 5 mg PO DAILY #90 tabs 07/11/24 baclofen 10 mg tablet 10 mg PO TID 30 days #90 tabs 08/24/24 gabapentin 800 mg tablet 800 mg PO TID 30 days #90 tabs 10/05/24 metformin 1,000 mg tablet 1,000 mg PO BID #180 tabs 11/28/24 losartan 50 mg tablet 50 mg PO DAILY #90 tabs 01/11/25 simethicone 180 mg capsule 180 mg PO QID #120 caps 02/01/25 (Anti-Gas Ultra Strength) cholecalciferol (vitamin D3) 50 50 mcg PO DAILY #90 caps 02/20/25 mcg (2,000 unit) capsule amlodipine 5 mg tablet 5 mg PO DAILY #90 tabs 02/26/25 flash glucose sensor (FreeStyle #6 ea 03/28/25 Cristian 2 Sensor kit) linaclotide 72 mcg capsule 72 mcg PO QAM #30 caps 04/03/25 (Linzess) esomeprazole magnesium 40 mg 40 mg PO DAILY #30 caps 04/17/25 capsule,delayed release famotidine 40 mg tablet 40 mg PO BEDTIME #90 tabs 04/17/25 magnesium oxide 400 mg PO BEDTIME #30 caps 04/17/25 metoclopramide HCl 10 mg tablet 10 mg PO QIDACHS #180 tabs 04/17/25 (Reglan) dimethicone 5 % topical cream 1 appl topical QID PRN skin 04/27/25 (Soothe and Cool Inzo Barrier) irritation #118.29 mL prednisone 20 mg tablet 40 mg (2 x 20 mg) PO DAILY 5 days 05/09/25 #10 tabs Allergies Allergy/AdvReac Type Severity Reaction Status Date / Time amoxicillin (AMOXICILLIN) Allergy Intermediate RASH Verified 05/16/25 09:42 Review of Systems Review of Systems: Yes all other systems are reviewed and are negative [facility] Past Medical History Attestation statement: The following information was validated with the patient. Source: old records reviewed and nursing notes reviewed Medical History COPD (chronic obstructive pulmonary disease) Chronic hypercapnic respiratory failure Mixed dyslipidemia Heavy cigarette smoker History of pneumonia COPD mixed type Gastritis Diabetic gastroparesis Diastolic CHF with preserved left ventricular function, NYHA class 2 Type 2 diabetes mellitus with other diabetic kidney complication Essential hypertension Smoker unmotivated to quit Postlaminectomy syndrome of cervical region Seasonal allergic rhinitis GERD (gastroesophageal reflux disease) Surgical History H/O cervical discectomy History of esophagogastroduodenoscopy (EGD) Hx of colonoscopy Family History Family History Mother Diabetes Sister Diabetes Mental health disorder Brother Diabetes Father HTN (hypertension) Social History Social History Household Members: Significant Other Housing: Other Housing Other:: Mobile home Are you a primary child care director to a significant other at home: No Do you presently have visiting nurse or other home services: Yes (PCT) Alcohol intake: current Alcohol intake frequency: does not drink 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 Patient Tobacco Use Status: Current everyday Tobacco user Tobacco use type: Cigarette Cigarette Packs Per Day: 1 Cigarettes Per Day: 20.0 Years Smoked: 51 Smoked in Last 30 Days: Yes e-Cigarette/Vaping Use: Never Used Second Hand Smoke Exposure: Yes Use of substances other than those prescribed or required for medical reasons: No Advance Directives: Yes Advance Directives on File: Yes Advance Directives Date on File: 08/02/23 Do you have a plan to hurt others: No Plan Patient : No service: No Current occupational status: unemployed and disabled Gender identity: Female Cognitive needs: No Hearing needs: No Vision needs: Yes Physical Exam ED Vital Signs: Vital Signs - 24 hr 05/16/25 09:40 05/16/25 09:48 05/16/25 11:18 Temperature 98.3 F 98.3 F Pulse Rate 98 98 97 Respiratory Rate 18 18 24 H Blood Pressure 134/57 L 134/57 L Pulse Oximetry 92 92 Oxygen Delivery Method Nasal Cannula Nasal Cannula BMI result Body Mass Index 22.5 satting 92% on 2l nc General: chronically ill appearing, thin Skin: Warm, dry, intact. No rashes or lesions. Head: Normocephalic, atraumatic. EENT: Hearing is intact b/l. Conjunctiva clear. Sclera is anicteric. PERRLA. EOM intact. dry mucous membranes Cardiac: Chest wall symmetric. RRR Lungs: increased effort of breathing, no tripoding, congested cough, lungs with expiratory rhonchi throughout Back: No midline spinous or paraspinal tenderness. No step off deformity. Ext: no pitting edema, no calf tenderness b/l Neuro: AOx3. Normal speech Course Course Course Narrative: CBC without leukocytosis. H and H stable. Venous blood gas showing bicarb of 35, otherwise WNL. Chemistry without acute electrolyte abnormality requiring intervention. Chronically elevated carbon dioxide secondary to COPD. No BENNETT. Lactic WNL at 0.7. Troponin WNL at 3.9. NT pro BNP WNL at 44.9. Liver function at baseline. Negative COVID, flu. Chest x-ray showing chronic interstitial lung disease with question of superimposed acute small airway inflammatory process. > patient was treated with albuterol, IV Solu-Medrol, magnesium without much improvement in shortness of breath. She is satting 92% on her normal 2 L nasal cannula. She is afebrile. Clinically, she is having exacerbation of her COPD. I have ordered IV ceftriaxone. Blood cultures sent. Spoke with patient regarding disposition. She has been treated with prednisone and p.o. antibiotics multiple times over the last month. Given continued symptoms, I feel she warrants inpatient treatment. Patient agreeable. Spoke with hospitalist rico ledesma who has accepted patient admission to medicine. Medications Administered Generic Name Dose Route Start Last Admin Trade Name Freq PRN Reason Stop Dose Admin Enoxaparin Sodium 40 mg 05/16/25 13:45 05/16/25 14:02 Enoxaparin Sodium 40 Mg/0.4 Ml Syringe SUBCUT 40 mg Q24H MOUSTAPHA Administration Azithromycin 500 mg/ Sodium 250 mls @ 125 mls/hr 05/16/25 13:45 05/16/25 14:03 Chloride IV 125 mls/hr Q24H MOUSTAPHA Administration Discontinued Medications Generic Name Dose Route Start Last Admin Trade Name Freq PRN Reason Stop Dose Admin Ceftriaxone Sodium 1 gm 05/16/25 12:05 05/16/25 12:23 Ceftriaxone Sodium 1 Gm Vial IVPUSH 05/16/25 12:06 1 gm ONCE ONE Administration Albuterol Sulfate 5 mg/ 0 mg 05/16/25 11:12 05/16/25 11:16 Albuterol/Ipratropium 3 ml INHALE 05/16/25 11:13 1 each ONCE ONE Administration Gabapentin 800 mg 05/16/25 12:06 05/16/25 12:23 Gabapentin 600 Mg Tablet PO 05/16/25 12:07 800 mg ONCE ONE Administration Magnesium Sulfate 2 gm in 50 mls @ 150 mls/hr 05/16/25 12:05 05/16/25 12:50 Magnesium Sulfate/H2o IV 05/16/25 12:24 Infused ONCE ONE Infusion Methylprednisolone Sodium Succinate 60 mg 05/16/25 10:34 05/16/25 11:37 Methylprednisolone Sod Succ 125 Mg/2 Ml Vial IVPUSH 05/16/25 10:35 60 mg ONCE ONE Administration Medical Decision Making Medical Decision Making MDM Narrative: 64 year old female with pmhx significant for degenerative disc disease of the cervical region, tobacco dependence, COPD on 2L supplemental oxygen at baseline, diabetes, hypertension, hyperlipidemia, chronic constipation presents to the ED via ambulance for evaluation of shortness of breath. Differential diagnosis includes COPD exacerbation, pneumonia, bronchitis, viral syndrome, anemia, electrolyte abnormality, dehydration. Unlikely PE. Plan for labs, ekg, vbg, cxr, viral swabs, ed bronch, IV steroids Differential Diagnosis Differential Diagnoses: The differential diagnosis associated with the presentation includes as above. Admission/Observation Consideration of admission/observation: Escalation of care including admission/observation considered Patient to be admitted to medicine for copd exacerbation Consult Healthcare Provider Management of the patient was discussed with: Hospitalist (callie gómez) Lab Data [place] Lab Attestation statement: I reviewed the patient's lab results. as above. 05/16/25 10:33 05/16/25 10:33 Labs: Lab Results 05/16/25 05/16/25 05/16/25 Range/Units 10:33 12:38 12:50 WBC 10.7 (4.8-10.8) X10*3/uL RBC 5.22 (4.20-5.50) X10*6/uL Hgb 11.5 L (12.0-16.0) g/dl Hct 39.1 (37.0-47.0) % MCV 74.9 L (80.0-98.0) fL MCH 22.0 L (27.0-33.0) pg MCHC 29.4 L (31.0-35.0) g/dl RDW 18.2 H (11.0-16.0) % Plt Count 392 (160-400) X10*3/uL MPV 9.7 (9.4-12.3) fL Immature Gran % (Auto) 0.4 (0.0-0.4) % Neut % (Auto) 79.3 H (45-73) % Lymph % (Auto) 11.9 L (20-40) % [place]duffie % (Auto) 6.5 (2-11) % Eos % (Auto) 1.2 (0-4) % Baso % (Auto) 0.7 (0-2) % Lymph # (Auto) 1.3 (1.2-4.9) X10*3/uL [place]ffie # (Auto) 0.7 (0.1-1.2) X10*3/uL Eos # (Auto) 0.1 (0.0-0.4) X10*3/uL Baso # (Auto) 0.1 (0.0-0.2) X10*3/uL Abs Immat Gran (auto) 0.04 H (0.00-0.03) X10*3/uL Absolute Neuts (auto) 8.5 H (2.0-8.3) x10*3/uL Absolute Nucleated RBC 0.000 (0.0-0.012) X10*3/uL Nucleated RBC % (auto) 0.0 (0.0-0.2) /100WBC Smear Tech's Comments VERIFIED VBG pH 7.43 (7.32-7.43) VBG pCO2 53 mmHg VBG pO2 49 mmHg VBG HCO3 35 H (22-26) mmol/L VBG O2 Saturation 74.0 % VBG Base Excess 9.7 mmol/L Sodium 143 (135-145) mmol/L Potassium 3.7 (3.3-5.1) mmol/L Chloride 100 (96-108) mmol/L Carbon Dioxide 31 H (22-29) mmol/L Anion Gap 16 (12-20) BUN 8 L (9-16) mg/dL Creatinine 0.37 L (0.5-1.4) mg/dL Estim Creat Clear Calc 103.1 Estimated GFR > 60 Random Glucose 118 H (60-115) mg/dL Lactic Acid 0.7 (0.5-2.0) mmol/L Calcium 10.1 (8.4-10.2) mg/dL Magnesium 1.9 (1.6-2.6) mg/dL Total Bilirubin 0.4 (0.0-1.0) mg/dL AST 17 (5-31) U/L ALT 9 (0-31) U/L Alkaline Phosphatase 93 (39-117) U/L Troponin I High Sens 3.9 (<3.5-17.0) ng/L NT-Pro-B Natriuret Pep 44.9 (<300) pg/mL Total Protein 7.0 (6.5-8.0) g/dL Albumin 4.4 (3.5-5.0) g/dL COVID-19 (JN) Negative (Negative) COVID-19 Clin Com See Note Influenza Type A (VERN) Negative (Negative) Influenza Type B (VERN) Negative (Negative) Influenza A & B Note See Note Independent Interpretation I performed an independent interpretation of an: EKG and Plain X-Ray Interpretation: ekg showing normal sinus rhythm, rate of 94 beats per minute, QT 386, QTC 482 Chest x-ray without focal infiltrate or consolidation Radiology Impression Discussion of test interpretation with radiology: I have reviewed the radiologist's reading. Radiologist Impression: Procedure(s): XR chest 2V Accession Number(s): [id number] cc: Magalie Nicolas MD; Allison Keys~ Reason for Exam: short of breath EXAMINATION: XR CHEST CLINICAL INFORMATION: short of breath COMPARISON: May 09, 2025 TECHNIQUE: PA and lateral views FINDINGS: Pulmonary reticular pattern. No consolidation pleural effusion or pneumothorax. No hyperinflation. Cardiomediastinal silhouette size is normal. Calcified plaque thoracic aorta. Multilevel spondylosis. Osteopenia versus osteoporosis. Metallic hardware in the lower cervical spine no fully included in the [id number]. XR/XR chest 2V IMPRESSION: Chronic interstitial lung disease. Superimposed acute small airway inflammatory processes should be considered in the correct clinical settings. Electronically signed by: Faustino Norton MD 05/16/2025 11:26 AM EDT Independent Historian Clinical information obtained from an independent historian. History obtained from or confirmed by: EMS External Record Review External record reviewed: Inpatient record, Office record, Outpatient record, Prior outpatient labs, Prior outpatient radiology, Primary care record and Outside ED record Prescription Management I considered prescription management with: Antibiotic Chronic Conditions Patient?s care impacted by: Diabetes and Other (COPD) Social Determinants Patient?s care significantly limited by Social Determinants of Health including: Other Social Determinant of Health Critical Care Time Critical Care Time Critical Care Time: Yes Total Critical Care Time: 37 Attestation: Critical care time in the amount of 37 minutes has been provided to the patient in terms of direct patient care, frequent reevaluation, consultation with hospitalist, review and interpretation of medical data and results, and management of potentially life-threatening conditions. This is all outside of any medical procedures. Discharge Plan Discharge Clinical Impression: COPD with acute exacerbation Patient Disposition: Admitted As Inpatient
--- NOTE | 2025-05-16 10:03 | ECG_ITS ---
Test Reason : SOB Blood Pressure : */* mmHG Vent. Rate : 94 BPM Atrial Rate : 94 BPM P-R Int : 118 ms QRS Dur : 82 ms QT Int : 386 ms P-R-T Axes : 69 83 61 degrees QTcB Int : 482 ms Artifact in tracing Normal sinus rhythm Normal ECG When compared with ECG of 09-May-2025 13:41, No significant change was found Referred By: Allison Keys Electronically Signed By: SHANKAR GARCIA
[2025-05-16 10:42] LABS: Hematocrit 39.1 % (37.0-47.0); Hemoglobin 11.5 g/dl (12.0-16.0); Imm Gran Abs Auto 0.04 X10*3/uL (0.00-0.03); Imm Gran Pct Auto 0.4 % (0.0-0.4); Lymphocytes Absolute Auto 1.3 X10*3/uL (1.2-4.9); MANUAL DIFF FLAG SCAN; Mean Corpuscular HGB Conc 29.4 g/dl (31.0-35.0); Mean Corpuscular Hemoglobin 22.0 pg (27.0-33.0); Mean Corpuscular Volume 74.9 fL (80.0-98.0); NRBC Abs Auto 0.000 X10*3/uL (0.0-0.012); NRBC Pct Auto 0.0 /100WBC (0.0-0.2); PLT CLUMP 1; Red Blood Count 5.22 X10*6/uL (4.20-5.50); SCAN SMEAR FLAG 1
[2025-05-16 10:56] LABS: Alanine Aminotransferase 9 U/L (0-31); Albumin Level 4.4 g/dL (3.5-5.0); Alkaline Phosphatase 93 U/L (39-117); Anion Gap 16 (12-20); Aspartate Amino Transferase 17 U/L (5-31); Blood Urea Nitrogen 8 mg/dL (9-16); Calcium 10.1 mg/dL (8.4-10.2); Carbon Dioxide 31 mmol/L (22-29); Chloride 100 mmol/L (96-108); Creatinine Clr Calc Pharmacy 103.1; Estimated Glomerular Filt Rate > 60; Magnesium 1.9 mg/dL (1.6-2.6); Potassium 3.7 mmol/L (3.3-5.1); Sodium 143 mmol/L (135-145); Total Protein 7.0 g/dL (6.5-8.0)
[2025-05-16 11:02] LABS: NT Pro B Type Natriuretic Pept 44.9 pg/mL (<300)
[2025-05-16 11:03] LABS: Platelet Count 392 X10*3/uL (160-400); Troponin-I High Sensitivity 3.9 ng/L (<3.5-17.0); White Blood Count 10.7 X10*3/uL (4.8-10.8)
[2025-05-16 11:05] LABS: IDNOW Serial# 55D5AD1C
[2025-05-16 11:06] LABS: Influenza B2 Negative (Negative)
[2025-05-16 11:15] LABS: COVID-19 Test Negative (Negative); IDNOW Serial# 6674DD1D
[2025-05-16] MEDS: Albuterol Sulfate 5 MG, Albuterol/Iprat 2.5/0.5MG 3 ML 3 ML INHALE (11:16)
[2025-05-16] MEDS: Magnesium Sulfate/H2O 2 GM/50 ML PIGGYBACK IV (12:23)
[2025-05-16 12:57] LABS: Venous Blood Gas Refer to POC result
[2025-05-16 13:10] LABS: VBG HCO3 35 mmol/L (22-26); VBG O2 % Saturation 74.0 %
--- NOTE | 2025-05-16 14:07 | PC.NURSE ---
Dietary called for meal tray for pt. Pt requesting nicotine patch, hospitalist contacted.
--- NOTE | 2025-05-16 14:21 | PHA.MEDREC ---
Pharmacy Consult ? Medication Reconciliation Pharmacy has completed the medication reconciliation. Spoke with pt and she verbally confirmed her dose's and how she is taking her medications with me. Pt confirmed her Azithromycin on Tuesdays and Saturdays and confirmed she took it Wednesday, she states she still has 3 days Prednisone regimen and she confirmed she still is taking Rosuvastatin 5mg once daily and confirmed she gets it filled at [facility]; I called pt pharmacy and they confirmed that has not been filled since 10/09 for 90 days.
--- NOTE | 2025-05-16 14:25 | PHA.MEDREC ---
Addendum entered by Galina Adams [facility] 05/16/25 15:00: reviewed by [facility] Addendum entered by Caren Pineda 05/16/25 14:53: Pt filling Rosuvastatin at [facility] on [address]. Original Note: Pharmacy Consult ? Medication Reconciliation Pharmacy has completed the medication reconciliation. Spoke with pt and she verbally confirmed her dose's and how she is taking her medications with me. Pt confirmed her Azithromycin on Tuesdays and Saturdays and confirmed she took it Wednesday, she states she still has 3 days Prednisone regimen and she confirmed she still is taking Rosuvastatin 5mg once daily and confirmed she gets it filled at [facility]; I called pt pharmacy and they confirmed that has not been filled since 10/09 for 90 days. Pt has not been able to take any of her medications in about 2-3 days.
--- NOTE | 2025-05-16 14:36 | PM.IMHP ---
History of Present Illness Date of Service: 05/16/25 Chief Complaint: Shortness of breath 64-year-old woman presented to the ER with complaints of a few days of increased shortness of breath. Patient uses 2 L of oxygen at baseline, she continues to smoke about 20 cigarettes a day. She reported that she had felt unwell a few days ago and started to feel a little bit more short of breath. She has been using her inhalers with no relief. She denied chest pain, nausea, vomiting, diarrhea, fever, chills, sick contacts, recent travel. Chest x-ray showed chronic interstitial lung disease with superimposed acute small airway inflammatory process. Patient placed on baseline 2 L. She was given Solu-Medrol, albuterol, Rocephin, magnesium, gabapentin, azithromycin. She will be admitted for further management of acute on chronic respiratory failure secondary to COPD exacerbation Review of Systems Review of Systems: Denies any recent fever chills or decrease in appetite respiratory see HPI cardiovascular denied chest pain gastrointestinal denies any dysphagia abdominal pain nausea vomiting or diarrhea genitourinary denies any dysuria frequency or hematuria musculoskeletal denies any joint pain or swelling neuropsych denies any weakness or seizures all other systems reviewed are negative [facility] Medical History (Updated 05/16/25 @ 14:48 by Jessica Paulson NP) COPD (chronic obstructive pulmonary disease) Chronic hypercapnic respiratory failure Mixed dyslipidemia Heavy cigarette smoker History of pneumonia Gastritis Diabetic gastroparesis Diastolic CHF with preserved left ventricular function, NYHA class 2 Type 2 diabetes mellitus with other diabetic kidney complication Essential hypertension Postlaminectomy syndrome of cervical region Seasonal allergic rhinitis GERD (gastroesophageal reflux disease) Family History Mother Diabetes Sister Diabetes Mental health disorder Brother Diabetes Father HTN (hypertension) Surgical History H/O cervical discectomy History of esophagogastroduodenoscopy (EGD) Hx of colonoscopy Social History Household Members: Significant Other Housing: Other Housing Other:: Mobile home Are you a primary rn palliative care to a significant other at home: No Do you presently have visiting nurse or other home services: Yes (PCT) Alcohol intake: current Alcohol intake frequency: does not drink 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 Patient Tobacco Use Status: Current everyday Tobacco user Tobacco use type: Cigarette Cigarette Packs Per Day: 1 Cigarettes Per Day: 20.0 Years Smoked: 51 Smoked in Last 30 Days: Yes e-Cigarette/Vaping Use: Never Used Second Hand Smoke Exposure: Yes Use of substances other than those prescribed or required for medical reasons: No Advance Directives: Yes Advance Directives on File: Yes Advance Directives Date on File: 08/02/23 Do you have a plan to hurt others: No Plan Patient : No service: No Current occupational status: unemployed and disabled Gender identity: Female Cognitive needs: No Hearing needs: No Vision needs: Yes Meds Allergies Allergy/AdvReac Type Severity Reaction Status Date / Time amoxicillin (AMOXICILLIN) Allergy Intermediate RASH Verified 05/16/25 09:42 Active Medications: Current Medications Acetaminophen (Acetaminophen 325 Mg Tablet) 650 mg PO Q6H PRN PRN Reason: Pain, Mild 1-3,fever,headache Albuterol/Ipratropium (Albuterol/Iprat 2.5/0.5mg 3 Ml Ampul.Neb) 3 ml INHALE Q4H [facility] Calcium Carbonate (Calcium Carbonate 750 Mg Tab.Chew) 750 mg PO Q4H PRN PRN Reason: Heartburn Enoxaparin Sodium (Enoxaparin Sodium 40 Mg/0.4 Ml Syringe) 40 mg SUBCUT Q24H [facility] Last Admin: 05/16/25 14:02 Dose: 40 mg Azithromycin 500 mg/ Sodium (Chloride) 250 mls @ 125 mls/hr IV Q24H [facility] Last Admin: 05/16/25 14:03 Dose: 125 mls/hr Magnesium Hydroxide (Milk Of Magnesia 30 Ml Oral.Susp) 30 ml PO DAILY PRN PRN Reason: Constipation Melatonin (Melatonin 3 Mg Tablet) 6 mg PO BEDTIME PRN PRN Reason: Insomnia Methylprednisolone Sodium Succinate (Methylprednisolone Sod Succ 40 Mg/Ml Vial) 40 mg IVPUSH Q12H [facility] Ondansetron HCl (Ondansetron Hcl 4 Mg/2 Ml Vial) 4 mg IVPUSH Q8H PRN PRN Reason: Nausea and Vomiting Sodium Chloride (0.9 % Sodium Chloride Flush 3 Ml Syringe) 3 ml IVFLUSH QSHIFT [facility] Home Medications ?Medication ?Instructions ?Recorded ?Confirmed ?Last Taken ?Type aspirin 81 mg tablet,delayed 81 mg PO BEDTIME 01/10/21 05/16/25 2 Days Ago History release (Adult Low Dose Aspirin) ~05/14/25 fluticasone fur. 100 mcg-umeclid 1 ea inhalation DAILY 02/05/25 05/16/25 2 Days Ago History 62.5 mcg-vilant 25 mcg ~05/14/25 inhalat.powder (Trelegy Ellipta) psyllium husk 0.52 gram capsule 1.04 g PO BID 04/02/25 05/16/25 2 Days Ago History (Fiber Laxative (psyllium husk)) ~05/14/25 sitagliptin phosphate 100 mg 100 mg PO DAILY 04/02/25 05/16/25 2 Days Ago History tablet (Januvia) ~05/14/25 azithromycin 250 mg tablet 250 mg PO TUTHSA 05/16/25 05/16/25 05/13/25 History Physical Exam Vital Signs and Narrative: Vital Signs: Last Vital Signs Temp 98.3 F 05/16/25 09:48 Pulse 97 05/16/25 11:18 Resp 24 H 05/16/25 11:18 BP 134/57 L 05/16/25 09:48 Pulse Ox 92 05/16/25 09:48 O2 Del Method Nasal Cannula 05/16/25 09:48 Oxygen Flow Rate 2 05/16/25 09:40 BMI result Body Mass Index 22.5 Appearing in no acute distress, appearing unkempt head is normocephalic atraumatic eyes pupils are PERRLA sclera is anicteric mouth throat mucous membranes are intact and moist neck is supple no lymphadenopathy, no JVD noted lung sounds expiratory wheeze/diminished heart regular rate rhythm, clear S1, S2 positive bowel sounds, abdomen is soft, nontender neuro patient is alert x3, no focal deficits Results Labs 05/16/25 10:33 05/16/25 10:33 Labs: Laboratory Results - last 24 hr 05/16/25 05/16/25 05/16/25 10:33 12:38 12:50 MCV 74.9 L MCH 22.0 L MCHC 29.4 L RDW 18.2 H Plt Count 392 MPV 9.7 Immature Gran % (Auto) 0.4 Neut % (Auto) 79.3 H Lymph % (Auto) 11.9 L [place]cl[place]an % (Auto) 6.5 Eos % (Auto) 1.2 Baso % (Auto) 0.7 Lymph # (Auto) 1.3 [place]clennan # (Auto) 0.7 Eos # (Auto) 0.1 Baso # (Auto) 0.1 Abs Immat Gran (auto) 0.04 H Absolute Neuts (auto) 8.5 H Absolute Nucleated RBC 0.000 Nucleated RBC % (auto) 0.0 Smear Tech's Comments VERIFIED VBG pH 7.43 VBG pCO2 53 VBG pO2 49 VBG HCO3 35 H VBG O2 Saturation 74.0 VBG Base Excess 9.7 Anion Gap 16 Estim Creat Clear Calc 103.1 Estimated GFR > 60 Random Glucose 118 H Lactic Acid 0.7 Calcium 10.1 Magnesium 1.9 Total Bilirubin 0.4 AST 17 ALT 9 Alkaline Phosphatase 93 Troponin I High Sens 3.9 NT-Pro-B Natriuret Pep 44.9 Total Protein 7.0 Albumin 4.4 COVID-19 (JN) Negative COVID-19 Clin Com See Note Influenza Type A (VERN) Negative Influenza Type B (VERN) Negative Influenza A & B Note See Note Imaging Radiologist's Impressions: Impressions Chest X-Ray 05/16/25 10:47 IMPRESSION: Chronic interstitial lung disease. Superimposed acute small airway inflammatory processes should be considered in the correct clinical settings. Electronically signed by: Faustino Norton MD 05/16/2025 11:26 AM EDT Assessment and Plan (1) COPD with acute exacerbation: Status: Acute Plan 64-year-old woman admitted with acute on chronic respiratory failure secondary to COPD exacerbation Acute on chronic hypoxic respiratory failure secondary to COPD exacerbation On baseline oxygen 2 L at home, continue IV Solu-Medrol Scheduled DuoNebs Azithromycin Incentive spirometry Diabetes mellitus type 2 Continue metformin Will add sliding scale as patient will be on steroids Hypertension Continue amlodipine and losartan GERD Continue PPI Hyperlipidemia Continue aspirin and statin Smoker Discussed importance of smoking cessation Nicotine replacement therapy offered DVT prophylaxis with Lovenox Full code Quality Stroke Does the patient have a stroke diagnosis?: No VTE Prior VTE?: No VTE Risk Level:: Medical - moderate - high VTE Device Contraindication: Treatment Not Indicated VTE Drug Contraindication: N/A - Med Ordered
[2025-05-16] MEDS: Albuterol/Iprat 2.5/0.5MG 3 ML AMPUL.NEB INHALE (14:59)
--- NOTE | 2025-05-16 14:59 | MHC.EDTECH ---
This pct has this patient but this patient is way to weak to ambulate. RN Aware.
[2025-05-16 17:23] LABS: Glucose, Whole Blood 308 mg/dL (60-115)
[2025-05-16] MEDS: Nicotine 21 MG PATCH.TD24 TRANSDERMA (18:31)
[2025-05-16 19:36] LABS: Glucose, Whole Blood 310 mg/dL (60-115)
[2025-05-16] MEDS: Aspirin Enteric Coated 81 MG TABLET.DR PO (20:24)
[2025-05-16] MEDS: 0.9 % Sodium Chloride Flush 3 ML SYRINGE IVFLUSH (23:03)
[2025-05-17 00:58] LABS: Glucose, Whole Blood 336 mg/dL (60-115)
[2025-05-17 03:00] VITALS: BP 121/57; PULSE 95; RESP 17; TEMP 36.3; O2SAT 91
[2025-05-17 05:55] LABS: Hematocrit 38.0 % (37.0-47.0); Hemoglobin 10.5 g/dl (12.0-16.0); Mean Corpuscular HGB Conc 27.6 g/dl (31.0-35.0); Mean Corpuscular Hemoglobin 21.7 pg (27.0-33.0); Mean Corpuscular Volume 78.5 fL (80.0-98.0); NRBC Abs Auto 0.000 X10*3/uL (0.0-0.012); NRBC Pct Auto 0.0 /100WBC (0.0-0.2); Platelet Count 418 X10*3/uL (160-400); Red Blood Count 4.84 X10*6/uL (4.20-5.50); White Blood Count 12.2 X10*3/uL (4.8-10.8)
[2025-05-17 06:26] LABS: Anion Gap 14 (12-20); Blood Urea Nitrogen 12 mg/dL (9-16); Calcium 9.7 mg/dL (8.4-10.2); Carbon Dioxide 32 mmol/L (22-29); Chloride 99 mmol/L (96-108); Creatinine Clr Calc Pharmacy 82.2; Estimated Glomerular Filt Rate > 60; Potassium 5.1 mmol/L (3.3-5.1); Sodium 140 mmol/L (135-145)
[2025-05-17 07:35] LABS: Glucose, Whole Blood 190 mg/dL (60-115)
[2025-05-17 07:42] VITALS: BP 129/60; PULSE 93; RESP 18; TEMP 36.3; O2SAT 94
[2025-05-17] MEDS: Nicotine 21 MG PATCH.TD24 TRANSDERMA (08:07)
[2025-05-17] MEDS: 0.9 % Sodium Chloride Flush 3 ML SYRINGE IVFLUSH (08:16)
[2025-05-17] MEDS: Albuterol/Iprat 2.5/0.5MG 3 ML AMPUL.NEB INHALE ×2 (08:19→11:16)
[2025-05-17 08:22] VITALS: PULSE 84; RESP 20; O2SAT 91
--- NOTE | 2025-05-17 09:49 | PC.RT ---
I have discussed the dangers of smoking in her home while she is wearing oxygen. she smokes 1 ppd , she tells me she takes off her oxygen when she does this. We have discussed the serious hazards that this can cause while she wears her oxygen while smoking, including: explosion, fire, and also can occur. She is aware of her current state and does NOT want to stop smoking.
[2025-05-17 10:21] VITALS: O2SAT 93
[2025-05-17 11:16] VITALS: PULSE 88; RESP 20; O2SAT 91
[2025-05-17 11:24] LABS: Glucose, Whole Blood 115 mg/dL (60-115)
--- NOTE | 2025-05-17 11:49 | PM.DS ---
DS: Providers Provider Date of Service: 05/17/25 Date of admission: 05/16/25 13:36 Date of discharge: 05/17/25 Primary care physician: Magalie Nicolas MD Attending physician on discharge: Grisel Erickson Discharging clinician: Grisel Erickson DS: Diagnosis Discharge Diagnosis (1) COPD with acute exacerbation: Status: Acute DS: Summary Hospital Course Hospital Course: HPI:64-year-old woman presented to the ER with complaints of a few days of increased shortness of breath. Patient uses 2 L of oxygen at baseline, she continues to smoke about 20 cigarettes a day. She reported that she had felt unwell a few days ago and started to feel a little bit more short of breath. She has been using her inhalers with no relief. She denied chest pain, nausea, vomiting, diarrhea, fever, chills, sick contacts, recent travel. Chest x-ray showed chronic interstitial lung disease with superimposed acute small airway inflammatory process. Patient placed on baseline 2 L. She was given Solu-Medrol, albuterol, Rocephin, magnesium, gabapentin, azithromycin. She will be admitted for further management of acute on chronic respiratory failure secondary to COPD exacerbation Hospital course: 64-year-old woman admitted with acute on chronic respiratory failure secondary to COPD exacerbation, chest x-ray reviewed possible component of mild acute bronchitis: Patient was started on IV nebs, steroids, antibiotics-significantly improved, oxygen demand came back to the baseline. Currently asymptomatic. Blood culture pending but less likely bacteremia since patient improved significantly quickly and chest x-ray negative for pneumonia, no new symptoms. Patient will be going home with p.o. steroids, antibiotics. Seen by PT recommended home with services. Plan: Prednisone 40 mg daily for 4 days. Azithromycin as prescribed. Hold her home maintenance azithromycin until she is on azithromycin prescribed here. Strongly advised to abstain from smoking, nicotine patches added. Above management discussed with the patient in detail length she understand and in agreement with the above plan, time spent 45 minute. All questions answered. Time Attestation Total time managing care of this patient today: 45 mintues. Discharge Coordination Time (in mins): 45 minute Quality: Safe Use of Opioids Does Pt have an Active Cancer Diagnosis on the Problem List?: No Quality: Stroke Does the patient have a stroke diagnosis?: No Physical Exam Exam: Exam: Appearance: Alert.? Oriented X3.? cvs: rrr, [id number] . res: clear to auscultation ,no rhonchii or wheezing abd: no rebound or guarding ,nt, bs present. ext pulses present , no cyanosis . neuro: axo3 , nonfocal. Vital Signs: Vital Signs: Last Vital Signs Temp 97.3 F 05/17/25 07:42 Pulse 88 05/17/25 11:16 Resp 20 05/17/25 11:16 BP 129/60 05/17/25 07:42 Pulse Ox 93 05/17/25 10:21 O2 Del Method Nasal Cannula 05/17/25 07:42 O2 Flow Rate 3 05/17/25 07:42 Oxygen Flow Rate 2 05/16/25 09:40 BMI result Body Mass Index 23.1 DS: Data Data Completed and Pending Labs on day of discharge: Laboratory Results - last 24 hr 05/16/25 05/16/25 05/16/25 12:38 12:50 16:47 WBC RBC Hgb Hct MCV MCH MCHC RDW Plt Count MPV Absolute Nucleated RBC Nucleated RBC % (auto) VBG pH 7.43 VBG pCO2 53 VBG pO2 49 VBG HCO3 35 H VBG O2 Saturation 74.0 VBG Base Excess 9.7 Sodium Potassium Chloride Carbon Dioxide Anion Gap BUN Creatinine Estim Creat Clear Calc Estimated GFR POC Glucose 336 H Random Glucose Lactic Acid 0.7 Calcium 05/16/25 05/16/25 05/17/25 17:19 19:32 05:32 WBC 12.2 H RBC 4.84 Hgb 10.5 L Hct 38.0 MCV 78.5 L MCH 21.7 L MCHC 27.6 L RDW 18.0 H Plt Count 418 H MPV 9.6 Absolute Nucleated RBC 0.000 Nucleated RBC % (auto) 0.0 VBG pH VBG pCO2 VBG pO2 VBG HCO3 VBG O2 Saturation VBG Base Excess Sodium 140 Potassium 5.1 D Chloride 99 Carbon Dioxide 32 H Anion Gap 14 BUN 12 Creatinine 0.47 L Estim Creat Clear Calc 82.2 Estimated GFR > 60 POC Glucose 308 H 310 H Random Glucose 266 H Lactic Acid Calcium 9.7 05/17/25 05/17/25 07:30 11:20 WBC RBC Hgb Hct MCV MCH MCHC RDW Plt Count MPV Absolute Nucleated RBC Nucleated RBC % (auto) VBG pH VBG pCO2 VBG pO2 VBG HCO3 VBG O2 Saturation VBG Base Excess Sodium Potassium Chloride Carbon Dioxide Anion Gap BUN Creatinine Estim Creat Clear Calc Estimated GFR POC Glucose 190 H 115 Random Glucose Lactic Acid Calcium Imaging Chest x-ray: Radiologist's impression: ITS Impressions Chest X-Ray 05/16/25 10:47 IMPRESSION: Chronic interstitial lung disease. Superimposed acute small airway inflammatory processes should be considered in the correct clinical settings. Discharge Plan Discharge Anticipated Discharge Date/Time: 05/17/25 11:36 Patient Disposition: Home, Self-Care Discharge Diagnosis: COPD exacerbation Referrals: [facility] [Outside] - 1 Week Magalie Nicolas MD [Primary Care Provider, Internal Medicine] - 1 Week Discharge Medications: New azithromycin 500 mg tablet 500 mg PO DAILY 4 Days Qty: 4 0RF nicotine 21 mg/24 hr Patch 24 Hour 21 mg transdermal DAILY Qty: 7 0RF prednisone 20 mg tablet 40 mg PO DAILY Qty: 8 0RF Continued (DME) lancets [FreeStyle Lancets] 28 gauge misc See Rx Instructions .Route Qty: 100 5RF Rx Instructions: As directed twice a day AC (DME) FreeStyle Lite Strips Strip See Rx Instructions .Route Qty: 100 0RF Rx Instructions: check fasting blood sugar twice a day before meals (DME) FreeStyle Cristian 2 [place] Misc See Rx Instructions .Route Qty: 1 0RF Rx Instructions: test blood sugar 4 times per day rosuvastatin 5 mg tablet 5 mg PO DAILY Qty: 90 1RF baclofen 10 mg tablet 10 mg PO TID 30 Days Qty: 90 6RF gabapentin 800 mg tablet 800 mg PO TID 30 Days Qty: 90 6RF metformin 1,000 mg tablet 1,000 mg PO BID Qty: 180 3RF losartan 50 mg tablet 50 mg PO DAILY Qty: 90 1RF cholecalciferol (vitamin D3) 50 mcg (2,000 unit) capsule 50 mcg PO DAILY Qty: 90 1RF amlodipine 5 mg tablet 5 mg PO DAILY Qty: 90 1RF (DME) FreeStyle Cristian 2 Sensor Kit See Rx Instructions .Route Qty: 6 3RF Rx Instructions: Test blood sugar 4 times per day magnesium oxide 400 mg magnesium capsule 400 mg PO BEDTIME Qty: 30 0RF psyllium husk [Fiber Laxative (psyllium husk)] 0.52 gram capsule 1.04 g PO BID Januvia 100 mg tablet 100 mg PO DAILY Trelegy Ellipta 100-62.5-25 mcg blister with device 1 ea INHALATION DAILY Soothe and Cool Inzo Barrier 5 % cream 1 appl topical QID PRN (Reason: skin irritation) Qty: 118.29 0RF prednisone 20 mg tablet 40 mg PO DAILY 5 Days Qty: 10 0RF aspirin [Adult Low Dose Aspirin] 81 mg tablet,delayed release (DR/EC) 81 mg PO BEDTIME (DME) blood-glucose meter [FreeStyle Lite Meter] Kit See Rx Instructions .Route Qty: 1 0RF Rx Instructions: As directed twice a day before meals famotidine 40 mg tablet 40 mg PO BEDTIME Qty: 90 2RF metoclopramide HCl [Reglan] 10 mg tablet 10 mg PO QIDACHS Qty: 180 6RF esomeprazole magnesium 40 mg capsule,delayed release(DR/EC) 40 mg PO DAILY Qty: 30 6RF simethicone [Anti-Gas Ultra Strength] 180 mg capsule 180 mg PO QID Qty: 120 6RF Linzess 72 mcg capsule 72 mcg PO QAM Qty: 30 6RF Held azithromycin 250 mg tablet 250 mg PO TUTHSA Hold Instructions: Resume on 05/21/25. Discharge Orders: Discharge Order (Routine); Ordered 05/17/25 Ordered By: Grisel Erickson Diet: Advance to usual diet Activity on Discharge: As tolerated Stand Alone Forms: Patient Portal Discharge page Print Language: [place]anian Care Plan Goals: Patient was admitted for acute on chronic hypoxemic respiratory failure secondary to COPD exacerbation: Chest x-ray shows mild question of acute bronchitis: Given nebs, steroids, antibiotics seems to be improved significantly going home with p.o. steroids and antibiotics. Blood culture negative at 24 hours. Patient was strongly advised to abstain from smoking, nicotine patch and also added. Azithromycin as prescribed. Hold her home maintenance azithromycin until she is on azithromycin prescribed here Health Concerns: As above. Plan of Treatment: As above. Assessment: As above.
--- NOTE | 2025-05-17 11:53 | P.F2F_ITS ---
Service Date Service Date: 05/17/25 Encounter Date of encounter: 05/17/25 Encounter: copd excerebation Reasons for Services Signs and symptoms assessed: Any new shortness of breath or cough or fever or new symptoms. Reason for mcfp: CV/CP assess and/or care, medication management, medication treatment and teach disease management Reason for physical therapy: home safety and mobility, therapeutic exercises, restore joint function, gait/transfer training, assess need for DME, ADL training, energy conservation and other MD Overseeing Care: Magalie Nicolas Homebound: Leaving the home is medically contraindicated at this time without the asist of a device and/or another person due th the listed conditions above and below. Reason homebound: weakness related to hospital stay Homebound supporting statement: patient is generalised weak post hospitlisation and need help with going to appointments and labs draws as well as PT. Certification: Based on the above findings, I certify that this patient is confined to the home and needs intermittent mcfp care, physical therapy and/or speech ther apy, or continues to need occupational therapy. The patient is under my care, and I have initiated the establishment of the plan of care. The patient will be followed by a physician who will periodically review the plan of care. Time Spent With Patient Time: Total time managing care of this patient today ____ minutes.
--- NOTE | 2025-05-17 13:02 | MHC.CM.PN ---
PT REPORTS SHE LIVES WITH HER S/O, WHO IS CURRENTLY AT [facility] SHE IS INDEPENDENT WITH CARE AND USES HOME O2 (2L @ BL) FROM [facility] HCP ON FILE AND VERIFIED PCP: ASIF PHAN DCP: PT CLEARED TO DC HOME TODAY WITH [facility] SHE REPORTS [facility] WOULD BE PREFERRED BLS TRANSPORT ARRANGED FOR 1430 HOURS WITH [facility]
== END 2025-05-17 14:45 | disposition home or self-care (01) | DRG 140 ==
LOC: HO.ED 10:37 → HO.EDOVER 13:46 → HO.S3 15:36
PROVIDERS: Physician Assistant Medical; Admitting Provider Nurse Practitioner Acute Care; Emergency Provider Emergency Medicine; PCP Internal Medicine; Visit Provider Internal Medicine
DX: J44.1 Chronic obstructive pulmonary disease with (acute) exacerbation (principal); J96.21 Acute and chronic respiratory failure with hypoxia; I11.0 Hypertensive heart disease with heart failure; J44.0 Chronic obstructive pulmonary disease with (acute) lower respiratory infection; J20.9 Acute bronchitis, unspecified; E78.5 Hyperlipidemia, unspecified; Z99.81 Dependence on supplemental oxygen; K21.9 Gastro-esophageal reflux disease without esophagitis; E11.9 Type 2 diabetes mellitus without complications; K59.09 Other constipation; F17.210 Nicotine dependence, cigarettes, uncomplicated; Z20.822 Contact with and (suspected) exposure to COVID-19; Z71.6 Tobacco abuse counseling; Z79.82 Long term (current) use of aspirin; Z79.84 Long term (current) use of oral hypoglycemic drugs; Z79.899 Other long term (current) drug therapy
CPT/HCPCS: 36415; 71046; 80048; 80053; 82803; 82947; 83605; 83735; 83880; 84484; 85025; 85027; 87040; 87502; 87635; 93005; 94640; 97161; 99285; J0456; J0696; J1650; J2919; J3475

== ENCOUNTER → 2025-05-16 10:03 | Outpatient (BNV) | payer OTHER, SELFPAY | PROVIDERS: Admitting Provider Nurse Practitioner Acute Care; Emergency Provider Emergency Medicine; PCP Internal Medicine; Visit Provider Internal Medicine | DX: R06.02 Shortness of breath (principal) | CPT/HCPCS: 93010 ==

== ENCOUNTER → 2025-05-16 10:03 | Outpatient (BNV) | payer OTHER, SELFPAY | PROVIDERS: Emergency Provider Emergency Medicine; PCP Internal Medicine; Visit Provider Radiology Diagnostic Radiology | DX: J84.9 Interstitial pulmonary disease, unspecified (principal) | CPT/HCPCS: 71046 ==

== ENCOUNTER → 2025-05-16 13:36 | Outpatient (BNV) | payer OTHER, SELFPAY | PROVIDERS: Admitting Provider Nurse Practitioner Acute Care; Emergency Provider Emergency Medicine; PCP Internal Medicine; Visit Provider Nurse Practitioner Acute Care | DX: J44.1 Chronic obstructive pulmonary disease with (acute) exacerbation (principal) | CPT/HCPCS: 99223; 99239; G0180 ==

== ENCOUNTER 2025-05-29 11:13 | Emergency (ER) | payer OTHER, SELFPAY ==
--- NOTE | ~2025-05-29 | CT_ITS ---
CLINICAL HISTORY: Abdominal pain CT abdomen and pelvis with contrast Comparison: CT/SR - CT ABDOMEN PELVIS W IV CON - 04/01/25 16:02 EDT Findings: Right lower lobe scarring and few calcified granulomas. Liver, gallbladder, spleen, pancreas, and adrenal glands are within normal limits. No hydronephrosis. Symmetric contrast enhancement of the kidneys. Postablation changes of the right lower pole renal mass, similar to prior. No urolithiasis. No bowel obstruction, pneumoperitoneum, or pneumatosis. Normal appendix. Aortic atherosclerosis. No aneurysm. Portal venous system patent. No enlarged abdominopelvic lymph nodes. Calcified fibroid in the uterus. Urinary bladder is underdistended. The bones are intact. IMPRESSION: 1. No acute intraabdominal or pelvic findings. 2. Postablation changes of the right lower pole renal mass, stable. This document has been electronically signed by: Estevan Morales MD on 05/29/2025 21:24:32
--- NOTE | ~2025-05-29 | CT_ITS ---
CLINICAL HISTORY: Pneumonia? Coughing abdominal pain CT chest with contrast Comparison: CT/SR - CT CHEST W IV CON - 04/01/25 16:02 EDT Findings: The heart size is normal. No pericardial effusion. Aortic and coronary atherosclerosis. No aneurysm. The visualized thyroid and mediastinum are unremarkable. Right lower lobe scarring. Some of the small right middle and lower lobe nodules have resolved, others are stable measure up to 4 mm in the right lower lobe. No consolidation, pleural effusion or pneumothorax. No acute findings in the visualized upper abdomen. The bones are intact. IMPRESSION: 1. No acute intrathoracic findings. 2. Right lower lobe scarring. Some of the small right middle and lower lobe nodules have resolved, others are stable measure up to 4 mm in the right lower lobe. This document has been electronically signed by: Estevan Morales MD on 05/29/2025 21:28:12
--- NOTE | ~2025-05-29 | XR_ITS ---
EXAMINATION: XR CHEST CLINICAL INFORMATION: cough COMPARISON: 05/16/2025 TECHNIQUE: 2 views of the chest were obtained. FINDINGS: Coarse markings in the lung bases have improved since the prior examination. Lungs are well aerated. There is no sign of pleural effusion. The heart size normal. There is atherosclerotic calcification in the aortic arch. Screw-plate are seen in the lower cervical spine. XR/XR chest 2V IMPRESSION: Improved coarse markings in the lung bases. Electronically signed by: Abner Hansen MD 05/29/2025 11:37 AM EDT
[2025-05-29 11:15] VITALS: PULSE 90; RESP 20; TEMP 36.7; O2SAT 92; BMI 22.2
--- NOTE | 2025-05-29 11:15 | ED_ITS ---
HPI - General Adult General Chief complaint: General Medical Stated complaint: body aches Time Seen by Provider: 05/29/25 19:27 Source: patient Mode of arrival: ambulatory Limitations: no limitations History of Present Illness ED Provider: Canelo Osborne HPI narrative: 65 yold female with pmu of COPDand diabestes presents to the ED coughing, congestion, bodycehs, abdominal pain, and chills. Patient states no fever, diarrhea, weakness. Related Data Home Medications ?Medication ?Instructions ?Recorded ?Confirmed aspirin 81 mg tablet,delayed 81 mg PO BEDTIME 01/10/21 05/16/25 release (Adult Low Dose Aspirin) fluticasone fur. 100 mcg-umeclid 1 ea inhalation DAILY 02/05/25 05/16/25 62.5 mcg-vilant 25 mcg inhalat.powder (Trelegy Ellipta) psyllium husk 0.52 gram capsule 1.04 g PO BID 04/02/25 05/16/25 (Fiber Laxative (psyllium husk)) sitagliptin phosphate 100 mg 100 mg PO DAILY 04/02/25 05/16/25 tablet (Januvia) azithromycin 250 mg tablet 250 mg PO TUTHSA 05/16/25 1 Held on 05/17/25. Instructions: Resume on 05/21/25. Previous Rx's ?Medication ?Instructions ?Recorded blood-glucose meter (FreeStyle #1 ea 10/03/21 Lite Meter kit) lancets 28 gauge (FreeStyle #100 ea 01/06/22 Lancets) FreeStyle Lite Strips (blood sugar #100 ea 03/10/22 diagnostic) flash glucose scanning reader #1 ea 03/26/23 (FreeStyle Cristian 2 [place]) rosuvastatin 5 mg tablet 5 mg PO DAILY #90 tabs 07/11 baclofen 10 mg tablet 10 mg PO TID 30 days #90 tab s 08/24/24 gabapentin 800 mg tablet 800 mg PO TID 30 days #90 ta bs 10/05/24 metformin 1,000 mg tablet 1,000 mg PO BID #180 tabs losartan 50 mg tablet 50 mg PO DAILY #90 tabs 12/15 05/10 simethicone 180 mg capsule 180 mg PO QID #120 caps (Anti-Gas Ultra Strength) cholecalciferol (vitamin D3) 50 50 mcg PO DAILY #90 ca ps 02/20/25 mcg (2,000 unit) capsule amlodipine 5 mg tablet 5 mg PO DAILY #90 tabs 02/26 flash glucose sensor (FreeStyle #6 ea 03/28/25 Cristian 2 Sensor kit) linaclotide 72 mcg capsule 72 mcg PO QAM #30 caps 03/16 05/10 (Linzess) esomeprazole magnesium 40 mg 40 mg PO DAILY #30 caps 0 04/17/25 capsule,delayed release famotidine 40 mg tablet 40 mg PO BEDTIME #90 tabs magnesium oxide 400 mg PO BEDTIME #30 caps 0 04/17/25 metoclopramide HCl 10 mg tablet 10 mg PO QIDACHS #180 tabs 04/17/25 (Reglan) dimethicone 5 % topical cream 1 appl topical QID PRN s kin 04/27/25 (Soothe and Cool Inzo Barrier) irritation #118.29 mL azithromycin 500 mg tablet 500 mg PO DAILY 4 days #4 t abs 05/17/25 nicotine 21 mg/24 hr daily 21 mg transdermal DAILY #7 ea 05/17/25 transdermal patch prednisone 20 mg tablet 40 mg (2 x 20 mg) PO DAILY # 8 tabs 05/17/25 prednisone 20 mg tablet 40 mg (2 x 20 mg) PO DAILY 5 days 05/17/25 #10 tabs albuterol sulfate 90 mcg/actuation 2 puff inhalation Q 6H PRN 05/30/25 aerosol inhaler (Ventolin HFA) shortness of breath or wheezing #6.7 grams azithromycin 250 mg tablet See Rx Instructions PO .COM PLEX #6 05/30/25 tabs prednisone 20 mg tablet 40 mg (2 x 20 mg) PO DAILY 5 days 05/30/25 #10 tabs Allergies Allergy/AdvReac Type Severity Reaction Status Date / Time amoxicillin (AMOXICILLIN) Allergy Intermediate RASH Verified 05/29/25 11:17 Review of Systems 2 Review of Systems: coughing, congestion, bodyaches Yes all other systems are reviewed and are negative [facility] Past Medical History Medical History (Updated 05/30/25 @ 00:08 by ADRIANNA Estrada) COPD (chronic obstructive pulmonary disease) Chronic hypercapnic respiratory failure Mixed dyslipidemia Heavy cigarette smoker History of pneumonia Gastritis Diabetic gastroparesis Diastolic CHF with preserved left ventricular function, NYHA class 2 Type 2 diabetes mellitus with other diabetic kidney complication Essential hypertension Postlaminectomy syndrome of cervical region Seasonal allergic rhinitis GERD (gastroesophageal reflux disease) Surgical History H/O cervical discectomy History of esophagogastroduodenoscopy (EGD) Hx of colonoscopy Family History Family History Mother Diabetes Sister Diabetes Mental health disorder Brother Diabetes Father HTN (hypertension) Social History Social History Household Members: Significant Other Housing: Other Housing Other:: trailer Are you a primary managed care director to a significant other at home: No Do you presently have visiting nurse or other home services: Yes ([facility] and [employer] but pt states they have not been coming.) Alcohol intake: current Alcohol intake frequency: does not drink 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 Patient Tobacco Use Status: Current everyday Tobacco user Tobacco use type: Cigarette Cigarette Packs Per Day: 1 Cigarettes Per Day: 20.0 Years Smoked: 51 e-Cigarette/Vaping Use: Never Used Second Hand Smoke Exposure: Yes Advance Directives: Yes Advance Directives on File: Yes Advance Directives Date on File: 08/02/23 Do you have a plan to hurt others: No Plan service: No Current occupational status: unemployed and disabled Gender identity: Female Cognitive needs: No Hearing needs: No Vision needs: Yes Physical Exam ED Vital Signs: Vital Signs - 24 hr 05/29/25 19:04 05/30/25 00:33 05/30/25 00:33 Temperature 97.6 F 97.6 F Pulse Rate 84 96 96 Respiratory Rate 18 24 H 24 H Blood Pressure 139/63 157/55 H 157/55 H Pulse Oximetry 93 92 92 Oxygen Delivery Method Nasal Cannula Aerosol Mask Nasal Cannula Oxygen Flow Rate 2 3 3 BMI result Body Mass Index 22.2 Const General: cooperative, healthy appearing, comfortable, no acute distress, well developed, alert and awake Orientation/consciousness: patient oriented x3 HENMT Head: Yes normal to inspection, Yes No palpable skull fracture present, Yes normocephalic and Yes atraumatic Throat: Yes posterior oropharynx normal, Yes tonsils normal and Yes uvula midline Eyes General: appearance normal, both eyes and all related structures Neck Neck: Yes normal visual inspection, Yes full ROM, Yes no lymphadenopathy, Yes no meningeal signs, Yes trachea midline, Yes supple, No anterior neck swelling and No tender Chest Chest palpation & inspection: normal inspection of the chest and normal palpation of entire chest wall Resp Effort & Inspection: normal respiratory effort and able to speak in complete sentences Auscultation: wheezes expiratory wheezes (mild wheezing) Cardio Jugular venous distension: no JVD Heart sounds: S1 normal heart sound present and S2 normal heart sound present GI Inspection: Yes normal to inspection Palpation (GI): Soft to palpation, not firm, nontender, no guarding and not rigid General: Yes no CVA tenderness Back/Spine/Pelvis Back: no CVA tenderness and No back tenderness Skin General skin exam: no rashes or lesions noted, elasticity normal and turgor normal Neuro General: patient oriented x3, gait normal, tone normal, moves all extremities, Normal light touch and pain sensation, no meningeal signs, no focal motor deficits, CN's II-XI intact bilaterally and normal sensation to monofilament Extrem General: Yes normal to inspection, Yes full ROM and Yes capillary refill normal Psych Appearance: grossly normal, well kempt and not disheveled Course Course Course Narrative: This is a rapid medical exam performed by Srinivas Munson NP: Additional HPI, ROS, PE not included below will be deferred to primary provider. Patient is a 65y/o F pmhx active smoker, COPD on baseline O2, HTN, T2DM, GERD presenting with complaint of body aches, cough, and congestion for a few days. Plan: viral swabs, CXR, labs Medications Administered Discontinued Medications Generic Name Dose Route Start Last Admin Trade Name Freq PRN Reason Stop Dose Admin Gabapentin 800 mg 05/30/25 00:05 05/30/25 00:27 Gabapentin 600 Mg Tablet PO 05/30/25 00:06 800 mg ONCE ONE Administration Iohexol 100 ml 05/29/25 20:35 05/29/25 20:35 Iohexol 350 Mg/Ml 100 Ml Infus..Btl IV 05/29/25 20:36 85 ml ONCE ONE Administration Potassium Chloride 40 meq 05/29/25 21:55 05/29/25 22:14 Potassium Chloride Packet 20 Meq Packet PO 05/29/25 21:56 40 meq ONCE ONE Administration Prednisone 40 mg 05/29/25 21:55 05/29/25 22:14 Prednisone 20 Mg Tablet PO 05/29/25 21:56 40 mg ONCE ONE Administration Medical Decision Making Medical Decision Making [facility] Narrative: [age] year female history of COPD asthma presents to ED for coughing congestion and body aches. Patient is on 2 L at baseline. Patient states baseline O2 sat is 90-93 on 2 L of oxygen. Patient is oxygen dependent. Due to patient stating abdominal pain patient was sent for abdominal CT and chest CT to make sure no pneumonia or any abdominal etiology. Chest CT abdominal CT did not show any acute events. Patient is we will give him prednisone and potassium chloride. Patient is not in DKA. Patient has already received treatment at home of albuterol neb which improved her system. Patient requesting gabapentin for neuropathy. Not suspecting KS, CHF, PE, hypoxia, hypercapnia failure, or any other life threatening etiology. Differential Diagnosis Differential Diagnoses: The differential diagnosis associated with the presentation includes (COPD asthma pneumonia) Admission/Observation Consideration of admission/observation: Escalation of care including admission/observation considered Lab Data [facility] Lab Attestation statement: I reviewed the patient's lab results. 05/29/25 11:42 05/29/25 11:42 Labs: Lab Results 05/29/25 05/29/25 05/29/25 Range/Units 11:42 19:26 20:25 WBC 13.5 H (4.8-10.8) X10*3/uL RBC 5.16 (4.20-5.50) X10*6/uL Hgb 11.3 L (12.0-16.0) g/dl Hct 40.4 (37.0-47.0) % MCV 78.3 L (80.0-98.0) fL MCH 21.9 L (27.0-33.0) pg MCHC 28.0 L (31.0-35.0) g/dl RDW 18.6 H (11.0-16.0) % Plt Count 334 (160-400) X10*3/uL MPV 9.6 (9.4-12.3) fL Immature Gran % (Auto) 0.4 (0.0-0.4) % Neut % (Auto) 74.5 H (45-73) % Lymph % (Auto) 18.2 L (20-40) % [place] % (Auto) 5.8 (2-11) % Eos % (Auto) 0.7 (0-4) % Baso % (Auto) 0.4 (0-2) % Lymph # (Auto) 2.5 (1.2-4.9) X10*3/uL [place] # (Auto) 0.8 (0.1-1.2) X10*3/uL Eos # (Auto) 0.1 (0.0-0.4) X10*3/uL Baso # (Auto) 0.1 (0.0-0.2) X10*3/uL Abs Immat Gran (auto) 0.05 H (0.00-0.03) X10*3/uL Absolute Neuts (auto) 10.0 H (2.0-8.3) x10*3/uL Absolute Nucleated RBC 0.000 (0.0-0.012) X10*3/uL Nucleated RBC % (auto) 0.0 (0.0-0.2) /100WBC PT (10.9-12.4) SEC INR (0.9-1.1) APTT (26.7-34.1) SEC Sodium 144 (135-145) mmol/L Potassium 3.1 L D (3.3-5.1) mmol/L Chloride 102 (96-108) mmol/L Carbon Dioxide 33 H (22-29) mmol/L Anion Gap 12 (12-20) BUN 8 L (9-16) mg/dL Creatinine 0.42 L (0.5-1.4) mg/dL Estim Creat Clear Calc 89.3 Estimated GFR > 60 Random Glucose 145 H (60-115) mg/dL Calcium 10.3 H D (8.4-10.2) mg/dL Magnesium 1.6 (1.6-2.6) mg/dL Total Bilirubin 0.3 (0.0-1.0) mg/dL AST 12 (5-31) U/L ALT 15 (0-31) U/L Alkaline Phosphatase 70 (39-117) U/L Troponin I High Sens 4.7 (<3.5-17.0) ng/L NT-Pro-B Natriuret Pep 51.5 (<300) pg/mL Total Protein 6.6 (6.5-8.0) g/dL Albumin 4.4 (3.5-5.0) g/dL Urine Color Yellow Urine Appearance Cloudy Urine pH 6.5 (5.0-9.0) Ur Specific [place] >= 1.030 H (1.005-1.025) Urine Protein Negative (Neg-Trace) mg/dL Urine Glucose (UA) 500 H (Negative) mg/dL Urine Ketones Negative (Negative) mg/dL Urine Blood Negative (Negative) Urine Nitrite Negative (Negative) Ur Leukocyte Esterase Negative (Negative) COVID-19 (JN) Negative (Negative) COVID-19 Clin Com See Note Influenza Type A (VERN) Negative (Negative) Influenza Type B (VERN) Negative (Negative) Influenza A & B Note See Note 05/29/25 05/29/25 Range/Units 21:08 22:52 WBC (4.8-10.8) X10*3/uL RBC (4.20-5.50) X10*6/uL Hgb (12.0-16.0) g/dl Hct (37.0-47.0) % MCV (80.0-98.0) fL MCH (27.0-33.0) pg MCHC (31.0-35.0) g/dl RDW (11.0-16.0) % Plt Count (160-400) X10*3/uL MPV (9.4-12.3) fL Immature Gran % (Auto) (0.0-0.4) % Neut % (Auto) (45-73) % Lymph % (Auto) (20-40) % [place] % (Auto) (2-11) % Eos % (Auto) (0-4) % Baso % (Auto) (0-2) % Lymph # (Auto) (1.2-4.9) X10*3/uL [place] # (Auto) (0.1-1.2) X10*3/uL Eos # (Auto) (0.0-0.4) X10*3/uL Baso # (Auto) (0.0-0.2) X10*3/uL Abs Immat Gran (auto) (0.00-0.03) X10*3/uL Absolute Neuts (auto) (2.0-8.3) x10*3/uL Absolute Nucleated RBC (0.0-0.012) X10*3/uL Nucleated RBC % (auto) (0.0-0.2) /100WBC PT 10.8 L (10.9-12.4) SEC INR 0.9 (0.9-1.1) APTT 26.4 L (26.7-34.1) SEC Sodium (135-145) mmol/L Potassium (3.3-5.1) mmol/L Chloride (96-108) mmol/L Carbon Dioxide (22-29) mmol/L Anion Gap (12-20) BUN (9-16) mg/dL Creatinine (0.5-1.4) mg/dL Estim Creat Clear Calc Estimated GFR Random Glucose (60-115) mg/dL Calcium (8.4-10.2) mg/dL Magnesium (1.6-2.6) mg/dL Total Bilirubin (0.0-1.0) mg/dL AST (5-31) U/L ALT (0-31) U/L Alkaline Phosphatase (39-117) U/L Troponin I High Sens 6.1 (<3.5-17.0) ng/L NT-Pro-B Natriuret Pep (<300) pg/mL Total Protein (6.5-8.0) g/dL Albumin (3.5-5.0) g/dL Urine Color Urine Appearance Urine pH (5.0-9.0) Ur Specific [place] (1.005-1.025) Urine Protein (Neg-Trace) mg/dL Urine Glucose (UA) (Negative) mg/dL Urine Ketones (Negative) mg/dL Urine Blood (Negative) Urine Nitrite (Negative) Ur Leukocyte Esterase (Negative) COVID-19 (JN) (Negative) COVID-19 Clin Com Influenza Type A (EVRN) (Negative) Influenza Type B (VERN) (Negative) Influenza A & B Note Independent Interpretation I performed an independent interpretation of an: EKG (non diagnostic) and CT Scan Radiology Impression Discussion of test interpretation with radiology: I have reviewed the radiologist's reading. Independent Historian Clinical information obtained from an independent historian. History obtained from or confirmed by: Other (patient) Prescription Management I considered prescription management with: Antibiotic and Other Discharge Plan Discharge Clinical Impression: Bronchitis, URI (upper respiratory infection) Patient Disposition: Home, Self-Care Instructions: Upper Respiratory Infection (ED), Acute Bronchitis (ED), COPD (Chronic Obstructive Pulmonary Disease) (ED) Additional Instructions: Recommend follow-up with primary care provider and state historical society director. Return to the ED immediately for any chest pain, shortness of breath, coughing up blood, weakness, dizziness, calf pain, or any other concerning symptoms. Continue taking albuterol inhaler as needed. Prescriptions: New prednisone 20 mg tablet 40 mg PO DAILY 5 Days Qty: 10 0RF azithromycin 250 mg tablet See Rx Instructions .ROUTE .COMPLEX Qty: 6 0RF Rx Instructions: For 250 mg dose pack: take 500 mg today (day 1), then 250 mg for 4 days (days 2-5) albuterol sulfate [Ventolin HFA] 90 mcg/actuation HFA aerosol inhaler 2 puff inhalation Q6H PRN (Reason: shortness of breath or wheezing) Qty: 6.7 0RF No Action (DME) lancets [FreeStyle Lancets] 28 gauge misc See Rx Instructions .Route Qty: 100 5RF Rx Instructions: As directed twice a day AC (DME) FreeStyle Lite Strips Strip See Rx Instructions .Route Qty: 100 0RF Rx Instructions: check fasting blood sugar twice a day before meals (DME) FreeStyle Cristian 2 [place] Misc See Rx Instructions .Route Qty: 1 0RF Rx Instructions: test blood sugar 4 times per day rosuvastatin 5 mg tablet 5 mg PO DAILY Qty: 90 1RF baclofen 10 mg tablet 10 mg PO TID 30 Days Qty: 90 6RF gabapentin 800 mg tablet 800 mg PO TID 30 Days Qty: 90 6RF metformin 1,000 mg tablet 1,000 mg PO BID Qty: 180 3RF losartan 50 mg tablet 50 mg PO DAILY Qty: 90 1RF cholecalciferol (vitamin D3) 50 mcg (2,000 unit) capsule 50 mcg PO DAILY Qty: 90 1RF amlodipine 5 mg tablet 5 mg PO DAILY Qty: 90 1RF (DME) FreeStyle Cristian 2 Sensor Kit See Rx Instructions .Route Qty: 6 3RF Rx Instructions: Test blood sugar 4 times per day magnesium oxide 400 mg magnesium capsule 400 mg PO BEDTIME Qty: 30 0RF psyllium husk [Fiber Laxative (psyllium husk)] 0.52 gram capsule 1.04 g PO BID Januvia 100 mg tablet 100 mg PO DAILY Trelegy Ellipta 100-62.5-25 mcg blister with device 1 ea INHALATION DAILY Soothe and Cool Inzo Barrier 5 % cream 1 appl topical QID PRN (Reason: skin irritation) Qty: 118.29 0RF azithromycin 250 mg tablet 250 mg PO TUTHSA azithromycin 500 mg tablet 500 mg PO DAILY 4 Days Qty: 4 0RF prednisone 20 mg tablet 40 mg PO DAILY 5 Days Qty: 10 0RF nicotine 21 mg/24 hr Patch 24 Hour 21 mg transdermal DAILY Qty: 7 0RF prednisone 20 mg tablet 40 mg PO DAILY Qty: 8 0RF aspirin [Adult Low Dose Aspirin] 81 mg tablet,delayed release (DR/EC) 81 mg PO BEDTIME (DME) blood-glucose meter [FreeStyle Lite Meter] Kit See Rx Instructions .Route Qty: 1 0RF Rx Instructions: As directed twice a day before meals famotidine 40 mg tablet 40 mg PO BEDTIME Qty: 90 2RF metoclopramide HCl [Reglan] 10 mg tablet 10 mg PO QIDACHS Qty: 180 6RF esomeprazole magnesium 40 mg capsule,delayed release(DR/EC) 40 mg PO DAILY Qty: 30 6RF simethicone [Anti-Gas Ultra Strength] 180 mg capsule 180 mg PO QID Qty: 120 6RF Linzess 72 mcg capsule 72 mcg PO QAM Qty: 30 6RF [place] [facility] [place] [facility] [place]Provider Group, Pul[place]ology] - 2 days Referral Note: Bronchitis URI COPD Clinical Impression: URI (upper respiratory infection); Bronchitis Magalie Nicolas MD [Primary Care Provider, Internal Medicine] - 2 days Referral Note: URI, bronchitis, COPD Clinical Impression: URI (upper respiratory infection); Bronchitis Interventions: ED Discharge Assessment Last Done: 05/30/25 00:33 Discharge Date/Time: 05/30/25 00:37 Print Language: Martiniquais
[2025-05-29 11:57] LABS: MANUAL DIFF FLAG NO
[2025-05-29 12:14] LABS: COVID-19 Test Negative (Negative); Hematocrit 40.4 % (37.0-47.0); Hemoglobin 11.3 g/dl (12.0-16.0); IDNOW Serial# 08D9AD1C; IDNOW Serial# 6674DD1D; Imm Gran Abs Auto 0.05 X10*3/uL (0.00-0.03); Imm Gran Pct Auto 0.4 % (0.0-0.4); Influenza B2 Negative (Negative); Lymphocytes Absolute Auto 2.5 X10*3/uL (1.2-4.9); Mean Corpuscular HGB Conc 28.0 g/dl (31.0-35.0); Mean Corpuscular Hemoglobin 21.9 pg (27.0-33.0); Mean Corpuscular Volume 78.3 fL (80.0-98.0); NRBC Abs Auto 0.000 X10*3/uL (0.0-0.012); NRBC Pct Auto 0.0 /100WBC (0.0-0.2); Platelet Count 334 X10*3/uL (160-400); Red Blood Count 5.16 X10*6/uL (4.20-5.50); White Blood Count 13.5 X10*3/uL (4.8-10.8)
[2025-05-29 12:29] LABS: Alanine Aminotransferase 15 U/L (0-31); Albumin Level 4.4 g/dL (3.5-5.0); Alkaline Phosphatase 70 U/L (39-117); Anion Gap 12 (12-20); Aspartate Amino Transferase 12 U/L (5-31); Blood Urea Nitrogen 8 mg/dL (9-16); Calcium 10.3 mg/dL (8.4-10.2); Carbon Dioxide 33 mmol/L (22-29); Chloride 102 mmol/L (96-108); Creatinine Clr Calc Pharmacy 89.3; Estimated Glomerular Filt Rate > 60; Magnesium 1.6 mg/dL (1.6-2.6); Potassium 3.1 mmol/L (3.3-5.1); Sodium 144 mmol/L (135-145); Total Protein 6.6 g/dL (6.5-8.0)
[2025-05-29 19:04] VITALS: BP 139/63; PULSE 84; RESP 18; O2SAT 93
[2025-05-29 19:39] LABS: Appearance Urine Cloudy; Glucose Urine UA 500 mg/dL (Negative); PH 6.5 (5.0-9.0); Specific Gravity - Urine >= 1.030 (1.005-1.025)
--- NOTE | 2025-05-29 20:13 | ECG_ITS ---
Test Reason : PAIN Blood Pressure : */* mmHG Vent. Rate : 85 BPM Atrial Rate : 85 BPM P-R Int : 122 ms QRS Dur : 92 ms QT Int : 396 ms P-R-T Axes : 67 84 26 degrees QTcB Int : 471 ms Normal sinus rhythm Incomplete right bundle branch block Nonspecific ST abnormality Abnormal ECG When compared with ECG of 16-May-2025 10:15, No significant change was found Referred By: Canelo Osborne Electronically Signed By: Allen Gant
[2025-05-29] MEDS: iohexoL 350 MG/ML 100 ML INFUS..BTL IV (20:35)
[2025-05-29 21:02] LABS: Troponin-I High Sensitivity 4.7 ng/L (<3.5-17.0)
[2025-05-29 21:03] LABS: NT Pro B Type Natriuretic Pept 51.5 pg/mL (<300)
[2025-05-29 21:22] LABS: INTERNATIONAL NORM RATIO 0.9 (0.9-1.1); Prothrombin Time 10.8 SEC (10.9-12.4)
[2025-05-29 21:25] LABS: Partial Thromboplastin Time 26.4 SEC (26.7-34.1)
[2025-05-29] MEDS: Potassium Chloride Packet 20 MEQ PACKET 40 MEQ PO (22:14)
[2025-05-29 23:17] LABS: Troponin-I High Sensitivity 6.1 ng/L (<3.5-17.0)
[2025-05-30 00:33] VITALS: BP 157/55; PULSE 96; RESP 24; TEMP 36.4; O2SAT 92
== END 2025-05-30 00:37 | disposition home or self-care (01) ==
PROVIDERS: Physician Assistant; Registered Nurse Emergency; Emergency Provider Emergency Medicine Emergency Medical Services; PCP Internal Medicine
DX: J40 Bronchitis, not specified as acute or chronic (principal); J06.9 Acute upper respiratory infection, unspecified; I45.10 Unspecified right bundle-branch block; R05.9 Cough, unspecified; R10.9 Unspecified abdominal pain; R07.9 Chest pain, unspecified; R68.83 Chills (without fever); E11.9 Type 2 diabetes mellitus without complications; J44.9 Chronic obstructive pulmonary disease, unspecified; E78.5 Hyperlipidemia, unspecified; I10 Essential (primary) hypertension; K21.9 Gastro-esophageal reflux disease without esophagitis; Z03.818 Encounter for observation for suspected exposure to other biological agents ruled out; F17.200 Nicotine dependence, unspecified, uncomplicated; Z71.6 Tobacco abuse counseling
CPT/HCPCS: 36415; 71046; 71260; 74177; 80053; 81003; 83735; 83880; 84484; 85025; 85610; 85730; 87502; 87635; 93005; 99284; 99285; Q9967

== ENCOUNTER → 2025-05-29 11:17 | Outpatient (BNV) | payer OTHER, SELFPAY | PROVIDERS: PCP Internal Medicine; Visit Provider Radiology Diagnostic Radiology | DX: R10.9 Unspecified abdominal pain (principal); R91.8 Other nonspecific abnormal finding of lung field; R05.9 Cough, unspecified | CPT/HCPCS: 71046; 71260; 74177 ==

== ENCOUNTER → 2025-05-29 20:13 | Outpatient (BNV) | payer OTHER, SELFPAY | PROVIDERS: Emergency Provider Emergency Medicine Emergency Medical Services; PCP Internal Medicine; Visit Provider Internal Medicine Cardiovascular Disease | DX: I45.10 Unspecified right bundle-branch block (principal) | CPT/HCPCS: 93010 ==

== ENCOUNTER 2025-06-07 16:06 | Outpatient (AMB) | payer OTHER, SELFPAY ==
--- NOTE | 2025-06-07 16:07 | MHC.OFFVIS ---
Intake Visit Reasons: 4m/CT Intake Note: Patient is present via telehealth for 4m/CT 04/01 Abdomen/Pelvis CT Urology Med:None Antibiotic Allergy: Amoxicillin Blood Thinner:Aspirin Breast Splitter Required: No Inspector Paper Products: Inspector Paper Products Present Accompanied by: spouse Allergies amoxicillin (AMOXICILLIN) Allergy (Intermediate, Verified 06/07/25 16:08) RASH Medication List - Last Reconciled 06/07/25 by Vikki Rangel MD albuterol sulfate 90 mcg/actuation (Ventolin HFA) 2 puffs inhalation Q6H PRN amlodipine 5 mg PO DAILY aspirin (Adult Low Dose Aspirin) 81 mg PO BEDTIME azithromycin 250 mg PO TUTHSA Held on 05/17/25. Instructions: Resume on 05/21/25. azithromycin 500 mg PO DAILY 4 days azithromycin For 250 mg dose pack: take 500 mg today (day 1), then 250 mg for 4 days (days 2-5) baclofen 10 mg PO TID 30 days blood-glucose meter (FreeStyle Lite Meter kit) As directed twice a day before meals cholecalciferol (vitamin D3) 50 mcg PO DAILY dimethicone 5% (Soothe and Cool Inzo Barrier) 1 appl topical QID PRN esomeprazole magnesium 40 mg PO DAILY famotidine 40 mg PO BEDTIME flash glucose scanning reader (FreeStyle Cristian 2 Hazel) test blood sugar 4 times per day flash glucose sensor (FreeStyle Cristian 2 Sensor kit) Test blood sugar 4 times per day uifysfekila-itujgmevo-iedrqhgu 100-62.5-25 mcg (Trelegy Ellipta) 1 ea inhalation DAILY FreeStyle Lite Strips (blood sugar diagnostic) check fasting blood sugar twice a day before meals NS gabapentin 800 mg PO TID 30 days lancets (FreeStyle Lancets) As directed twice a day AC linaclotide (Linzess) 72 mcg PO QAM losartan 50 mg PO DAILY magnesium oxide 400 mg PO BEDTIME metformin 1,000 mg PO BID metoclopramide HCl (Reglan) 10 mg PO QIDACHS nicotine 21 mg transdermal DAILY prednisone 40 mg (2 x 20 mg) PO DAILY 5 days prednisone 40 mg (2 x 20 mg) PO DAILY prednisone 40 mg (2 x 20 mg) PO DAILY 5 days psyllium husk (Fiber Laxative (psyllium husk)) 1.04 grams PO BID rosuvastatin 5 mg PO DAILY simethicone (Anti-Gas Ultra Strength) 180 mg PO QID sitagliptin phosphate (Januvia) 100 mg PO DAILY HPI Comments Details: 06/07/25--Maria Elena is a 65-year-old female status post right renal mass cryo ablation. History of Present Illness The patient is a 65-year-old female presenting with a follow-up after right renal mass cryoablation. She underwent cryoablation for a right renal mass, and a recent CT scan of the abdomen and pelvis with IV contrast on May 29, 2025, showed no new renal findings. The post-ablation changes of the right lower pole renal mass are stable, indicating no progression of the condition. The patient will have a follow-up ultrasound in nine months to monitor the stability of the renal mass. Results - CT scan of abdomen and pelvis with IV contrast on 05/29/25: No new renal findings; stable post-ablation changes of right lower pole renal mass. Plan 1. Status Post Right Renal Mass Cryoablation - Continue monitoring with follow-up ultrasound in nine months to assess stability of the renal mass. 01/25/25--64-year-old female with pertinent history of chronic hypoxia due to COPD, hypertension, hyperlipidemia, jtj-nfxescl-stecmwfko diabetes mellitus, gastroesophageal reflux disease, tobacco use disorder. Discussed smoking cessation. Status post renal mass ablation on 09/11/2024. Discussed renal ultrasound results. Will check a CAT scan in 3 months which will be more accurate. Urinalysis negative for blood. Results: US 11/21/24--Right lower pole renal mass measuring slightly larger than on the prior ultrasound. It is uncertain whether this represents inclusion of post ablation changes or actual growth. 09/21/24--Telehealth fu, s/p right renal mass cryoablation, the patient was in the ED on 09/16/24 for post procedure pain, she states she is doing better. Plan fu in 3-4 months. 08/21/24--Maria Elena was last seen 05/22/24--she had a CT Abd renal mass protocol on 04/18/24 She was referred for Interventional Radiology--cryoablation Single approximate 2.5 cm lesion of the inferior pole the right kidney. She has not had procedure done as yet. She was seen in consultation by [facility]. She states the procedure has not been scheduled as yet. 05/22/24--63-year-old female with pertinent history of chronic hypoxia due to COPD on 2 L supplemental oxygen, hypertension, hyperlipidemia, [id number]-aqptgvqas diabetes mellitus, gastroesophageal reflux disease, tobacco use disorder who was admitted due to dyspnea and abdominal pain. CTAP - and renal US indeterminate small lesion right kidney PFSH Medical History COPD (chronic obstructive pulmonary disease) Chronic hypercapnic respiratory failure Mixed dyslipidemia Heavy cigarette smoker History of pneumonia Gastritis Diabetic gastroparesis Diastolic CHF with preserved left ventricular function, NYHA class 2 Type 2 diabetes mellitus with other diabetic kidney complication Essential hypertension Postlaminectomy syndrome of cervical region Seasonal allergic rhinitis GERD (gastroesophageal reflux disease) Surgical History H/O cervical discectomy History of esophagogastroduodenoscopy (EGD) Hx of colonoscopy Family History Mother Diabetes Sister Diabetes Mental health disorder Brother Diabetes Father HTN (hypertension) Social History Household Members: Significant Other Housing: Other Housing Other:: trailer Are you a primary healthcare liaison to a significant other at home: No Do you presently have visiting nurse or other home services: Yes ([facility] and [employer] CL[employer] but pt states they have not been coming.) Alcohol intake: current Alcohol intake frequency: does not drink 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 Patient Tobacco Use Status: Current everyday Tobacco user Tobacco use type: Cigarette Cigarette Packs Per Day: 1 Cigarettes Per Day: 20.0 Years Smoked: 51 e-Cigarette/Vaping Use: Never Used Second Hand Smoke Exposure: Yes Advance Directives Date on File: 08/02/23 service: No Current occupational status: unemployed and disabled Gender identity: Female Cognitive needs: No Hearing needs: No Vision needs: Yes Review of Systems Const All systems reviewed & are unremarkable except as noted in HPI and below Reports no additional complaints Eyes Reports no additional complaints ENT Reports no additional complaints Card Reports no additional complaints Resp Reports no additional complaints GI Reports no additional complaints Reports as per HPI Musc Reports no additional complaints Skin/Breast Reports system reviewed and no additional complaints, except as documented Neuro Reports no additional complaints Psych Reports no additional complaints Endo Reports no additional complaints Patel/Lymph Reports no additional complaints Aller/Immun Reports no additional complaints Telehealth Telehealth Telehealth Platform: Telephone Location of provider rendering services: practice address Location of patient: address on file Patient Identification confirmed using: Name, : Yes Telehealth method: voice only Patient verbally consented to treatment: Yes Patient verbally consented to billing insurance company: Yes Patient informed of any privacy concerns related to visit: Yes Minutes spent on Phone/Video with Pt.: 13 Results Reviewed Results Reviewed: Date of Service: 05/29/25 CLINICAL HISTORY: Abdominal pain CT abdomen and pelvis with contrast Comparison: CT/SR - CT ABDOMEN PELVIS W IV CON - 04/01/25 16:02 EDT Findings: Right lower lobe scarring and few calcified granulomas. Liver, gallbladder, spleen, pancreas, and adrenal glands are within normal limits. No hydronephrosis. Symmetric contrast enhancement of the kidneys. Postablation changes of the right lower pole renal mass, similar to prior. No urolithiasis. No bowel obstruction, pneumoperitoneum, or pneumatosis. Normal appendix. Aortic atherosclerosis. No aneurysm. Portal venous system patent. No enlarged abdominopelvic lymph nodes. Calcified fibroid in the uterus. Urinary bladder is underdistended. The bones are intact. IMPRESSION: 1. No acute intraabdominal or pelvic findings. 2. Postablation changes of the right lower pole renal mass, stable. Date of Service: 11/21/24 EXAMINATION: US KIDNEY BILATERAL HISTORY: C64.1 - Malignant neoplasm of right kidney, except renal pelvis TECHNIQUE: Real-time grayscale ultrasound imaging of the kidneys was performed and images were reviewed. COMPARISON: Comparison is made with the prior abdominal ultrasound dated 08/03/2024. Correlation is made with a CT of the abdomen with contrast dated 10/26/2024 FINDINGS: Right kidney: The right kidney measures 11.0 x 5.1 x 4.5 cm. Renal parenchymal echotexture and thickness are normal. Again seen is a hypoechoic mass at the lower pole measuring 2.3 x 2.1 x 2.9 cm (previously 2.4 x 2.4 x 2.4 cm). There is no hydronephrosis or renal calculi. Left Kidney: The left kidney measures 10.7 x 5.7 x 4.4 cm. Renal parenchymal echotexture and thickness are normal. There are no masses. There is no hydronephrosis or renal calculi. IMPRESSION: Right lower pole renal mass measuring slightly larger than on the prior ultrasound. It is uncertain whether this represents inclusion of post ablation changes or actual growth. Date of Service: 08/08/24 CT ABDOMEN AND PELVIS WITHOUT CONTRAST CLINICAL INFORMATION: Possible right renal mass. Upper abdominal pain. COMPARISON: Renal ultrasound 08/03/2024. Unenhanced and IV contrast and CT of abdomen and pelvis 04/18/2024. CT abdomen and pelvis 04/16/2024. MRI abdomen 04/05/2019. TECHNIQUE: Multidetector volumetric imaging was performed from the superior aspect of the liver through the pubic symphysis. Sagittal and coronal reformatted images were obtained on the technologist's workstation. This CT examination was performed using dose optimization techniques as appropriate, variously including the following: *Automated exposure control *Adjustment of mA and/or kV according to patient size (this includes techniques or standardized protocols for targeted exams where dose is matched to indication/reason for exam; i.e. extremities or head) *Use of iterative reconstruction technique DLP: 367 mGy-cm FINDINGS: LUNG BASES: Chronic appearing scattered minimal bibasilar subpleural reticular opacities which may represent parenchymal scarring are noted. Partial visualization is made of at least mild-moderate scattered coronary artery calcific atherosclerosis. The heart is not fully included within the image [id number]. LIVER, GALLBLADDER, AND BILIARY TREE: The liver is normal in size, shape, and attenuation. No focal hepatic lesion or biliary ductal dilatation is present. The gallbladder is unremarkable with no evidence of radiopaque gallstones, gallbladder wall thickening, or obvious pericholecystic inflammatory changes. PANCREAS: Unremarkable. SPLEEN: Unremarkable. ADRENAL GLANDS: Unremarkable. KIDNEYS AND URETERS: A 2.5 cm x 2.0 cm rounded partially exophytic lesion is associated with the lateral aspect of the inferior pole the right kidney demonstrating intermediate attenuation (32 Hounsfield units). No urolithiasis. No hydronephrosis or perinephric inflammatory changes. Normal appearance of the left kidney. BLADDER: Moderate physiologic distention. GASTROINTESTINAL TRACT: Normal appearance of the appendix. No free intraperitoneal fluid or gas collections. No intestinal dilatation or mural thickening. Normal appearance of the sigmoid mesentery and small bowel mesentery. Normal appearance of the stomach and duodenum. ABDOMINAL WALL: No significant hernia is appreciated. LYMPH NODES: Normal. VASCULAR: Marked diffuse calcific atherosclerosis. system: A 5 mm dystrophic calcification is noted along the anterior margin of the uterine fundus and may represent a degenerated uterine fibroid. No adnexal lesions are noted. Bilateral fallopian tube ligation clips. OSSEOUS STRUCTURES: No suspicious skeletal lesions noted. IMPRESSION: *Single approximate 2.5 cm lesion of the inferior pole the right kidney. Of note, this lesion was evaluated to better advantage on the comparison unenhanced and IV contrast enhanced CT of the abdomen and pelvis 04/18/2024 which concluded that this mass was suspicious for renal cell carcinoma. On the current exam, this mass demonstrates intermediate attenuation which solely on the basis of this exam could be consistent with either a proteinaceous cyst or solid tumor. However, the prior unenhanced and IV contrast CT offers more specificity and concluded that this lesion is consistent with renal cell carcinoma. This lesion is unchanged appreciably in size compared with 04/18/2024. No abdominal lymphadenopathy. No evidence of metastatic disease on this unenhanced CT of the abdomen and pelvis. *Partial visualization of mild to moderate scattered coronary artery calcific atherosclerosis. Date of Service: 04/18/24 CT ABDOMEN AND PELVIS WITHOUT AND WITH CONTRAST CLINICAL INFORMATION: Right renal mass. COMPARISON: None available. TECHNIQUE: Contiguous axial thin section helical images of the abdomen were performed before and after the administration of oral contrast and 85 mL of Omnipaque 350 intravenous contrast. The data set was reformatted in the coronal and sagittal planes and reviewed on an independent workstation. This CT examination was performed using dose optimization techniques as appropriate, variously including the following: *Automated exposure control *Adjustment of mA and/or kV according to patient size (this includes techniques or standardized protocols for targeted exams where dose is matched to indication/reason for exam; i.e. extremities or head) *Use of iterative reconstruction technique DLP: 574 mGy-cm FINDINGS: LUNG BASES: Scarring present at the lung bases with some traction bronchiectasis on the right. There are a number of small pulmonary nodules seen at the right lung base the largest measuring 5 mm (6:22). LIVER, GALLBLADDER, AND BILIARY TREE: The liver, gallbladder and bile ducts are unremarkable. PANCREAS: Normal. SPLEEN: Normal. ADRENAL GLANDS: Normal. KIDNEYS: Right: There is a large 3.4 x 2.4 x 2.4 cm right lower pole enhancing renal mass consistent with a renal cell carcinoma. The mass extends to just before the level of the renal sinus. There are 2 additional tiny masses seen in the mid to upper left kidney laterally which measure 0.6 cm and 0.5 cm which may represent either tiny angiomyolipomas or cysts. In either case, these are not worrisome findings. No nephrocalcinosis. No hydronephrosis. The right ureter appears normal. Left: The left kidney and ureter appear normal. BOWEL LOOPS: Dense barium is present throughout the colon. No evidence of bowel obstruction. LYMPH NODES: No retroperitoneal lymphadenopathy. VASCULAR: Calcific atherosclerotic changes are present in the aorta and iliofemoral vessels with significant area of stenosis in the infrarenal aorta as well as in the iliac vessels. I suspect that this patient is a smoker and this represents Leriche syndrome. There is no evidence of an abdominal aortic aneurysm. BONES: Mild degenerative changes are present in the spine. No bony destructive lesions are seen to suggest metastatic disease. IMPRESSION: 1. A 3.4 cm right lower pole enhancing renal mass consistent with renal cell carcinoma. 2. No evidence of metastatic disease in the abdomen or pelvis. 3. Other incidental findings as described above including severe aortoiliac atherosclerotic changes with stenosis of the infrarenal aorta and iliac vessels. This patient is likely a smoker and this represents Leriche syndrome. 4. Incidentally noted pulmonary nodules, the largest measuring [address] at 3-6 months (per oncology protocol) to confirm persistence. Assessment & Plan Assessment & Plan (1) Renal cell carcinoma: Code(s): C64.9 - Malignant neoplasm of unspecified kidney, except renal pelvis Category: Medical Qualifiers: Laterality: right Qualified Code(s): C64.1 - Malignant neoplasm of right kidney, except renal pelvis (2) Nicotine dependence: Code(s): F17.200 - Nicotine dependence, unspecified, uncomplicated Category: Medical Plan Plan 1. Status Post Right Renal Mass Cryoablation - Continue monitoring with follow-up ultrasound in nine months to assess stability of the renal mass. Patient Instructions: The patient had an opportunity to ask questions regarding treatment plan. The patient expressed understanding and agreement with the above treatment plan. The patient is aware they should contact our office by phone for worsening of their current condition or the appearance of new symptoms. Compliance is encouraged with any medications and followup testing that is ordered. It is a privilege to be allowed the opportunity to participate in the urologic care of your patient. If you have any questions or concerns regarding treatment for the above conditions please do not hesitate to contact me. The office telephone contact is [phone]. This note is constructed in part using voice recognition software. While every effort has been made to ensure accuracy sleeping car porter errors may have been included. Yours sincerely, Vikki Rangel MD Coding Level of Care Code Tele Est Pt Level 3 (10385) Diagnoses Renal cell carcinoma of right kidney C64.1 Laterality: right Nicotine dependence F17.200
== END 2025-06-07 16:46 | disposition home or self-care (01) ==
LOC: HO.HUSH 16:06
PROVIDERS: PCP Internal Medicine; Visit Provider Urology
DX: C64.1 Malignant neoplasm of right kidney, except renal pelvis (principal); F17.200 Nicotine dependence, unspecified, uncomplicated
CPT/HCPCS: 99213

== ENCOUNTER 2025-06-21 14:18 | Outpatient (AMB) | payer OTHER, SELFPAY ==
[2025-06-21 14:34] VITALS: BP 171/73; PULSE 102; RESP 16; O2SAT 95; BMI 22.9
--- NOTE | 2025-06-21 14:34 | MHC.OFFVIS ---
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 One year ago we were planning to perform Nevro SCS helps her pain in the neck. Unfortunately the patient was lost for follow-up and we were not able to send her for psychological evaluation. This time patient presents in my office with 2 L of oxygen without which she can not breathe normally. She is requesting a trial of Nevro SCS. She needs to go for psychological evaluation 1st. After psychological evaluation is done and the procedure is about to be scheduled we would need to send her for PAT to evaluate whether or not it will be safe to perform general anesthesia. I explained to the patient that I can not do trial while she is awake with minimal oral sedation. However implantation of the spinal cord stimulator will require at least sedation if not general anesthesia. She expressed understanding and I recommended her to schedule herself as soon as possible with psychological evaluation and after that give us a call and schedule appointment with us. I also recommended her to go to her vermin exterminator in [facility] obtain clearance for anesthesia. If she will not be cleared by pulmonology than the all above discussion is a moot point and the procedure can not be performed. Prior: Complains on cervicalgia. She was under medical management with me unsuccessful epidural steroid injection cervical C6-C7-see below. She was placed on gabapentin and amitriptyline. Gabapentin gives her no side effects however after we send her for the labs elevated alk-phos was discovered. Presumption was made that it is because of the amitriptyline. I will stop this medication. I prescribed her baclofen 10 mg t.i.d. I also offered her spinal cord stimulator last time. She reports that baclofen causes hallucinations to her. However when I started to ask her what kind of hallucination she feels she was not able to answer. Unfortunately I am very perplexed about the sensor. I explained to her auditory, visual, and tactile hallucinations. Unfortunately patient does not have anything like that. We will continue baclofen at the current dose. Same time I would like to consider this patient to be a candidate for [facility] SCS. Last time I gave her brochure unfortunately patient did not read the brochure. I gave her today another brochure. If she is interested she can give me a telephone call to schedule appointment and we will discuss SCS Nevro. She continues to endorse pain in the neck with radiation on to the left arm. She has a history of ceased 5 C6 ACDF by [place] 2012. HER PAIN HAD STARTED ABOUT 2 YEARS PRIOR TO SURGERY.? She reported yard work was the cause of her pain.? She had conservative treatment including physical therapy, she received some injections without benefits, she subsequently had surgery at [facility].? She was treated by chiropractor without significant benefits.? She was taking NSAIDs without benefits.?With me she received interlaminar C6-C7 epidural steroid injection in her neck.? Technically it was very?difficult?procedure.? The patient has very short neck and hardware in her tear portion of the neck was obstructing the view of the needle advancing to were the epidural space.? No pain relieve after the injection.? She was offered [employer] (V3D)RO spinal cord stimulator.? [facility] that gabapentin to 4 pills 800 mg a day and amitriptyline to 50 mg a day provide significant pain relief for her without any noticeable side effects. [facility] Medical History COPD (chronic obstructive pulmonary disease) Chronic hypercapnic respiratory failure Mixed dyslipidemia Heavy cigarette smoker History of pneumonia Gastritis Diabetic gastroparesis Diastolic CHF with preserved left ventricular function, NYHA class 2 Type 2 diabetes mellitus with other diabetic kidney complication Essential hypertension Postlaminectomy syndrome of cervical region Seasonal allergic rhinitis GERD (gastroesophageal reflux disease) Surgical History H/O cervical discectomy History of esophagogastroduodenoscopy (EGD) Hx of colonoscopy Family History Mother Diabetes Sister Diabetes Mental health disorder Brother Diabetes Father HTN (hypertension) Social History Household Members: Significant Other Housing: Other Housing Other:: trailer Are you a primary field care advocate to a significant other at home: No Do you presently have visiting nurse or other home services: Yes ([facility] and [facility] but pt states they have not been coming.) Alcohol intake: current Alcohol intake frequency: does not drink 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 Patient Tobacco Use Status: Current everyday Tobacco user Tobacco use type: Cigarette Cigarette Packs Per Day: 1 Cigarettes Per Day: 20.0 Years Smoked: 51 e-Cigarette/Vaping Use: Never Used Second Hand Smoke Exposure: Yes Advance Directives Date on File: 08/02/23 service: No Current occupational status: unemployed and disabled Gender identity: Female Cognitive needs: No Hearing needs: No Vision needs: Yes Review of Systems Const All systems reviewed & are unremarkable except as noted in HPI and below ENT Reports Normal hearing present Neuro Reports Normal hearing present, Denies Abnormal speech present and Denies Sensory deficit (Neuro) Physical Exam Vital Signs: Last Vital Signs Pulse 102 H 06/21/25 14:34 Resp 16 06/21/25 14:34 BP 171/73 H 06/21/25 14:34 Pulse Ox 95 06/21/25 14:34 Oxygen Delivery Method Room Air 06/21/25 14:34 BMI result Body Mass Index 22.9 Const General: no acute distress Nutritional Appearance: obese morbidly obese Orientation/consciousness: patient oriented x3 Eyes General: appearance normal, both eyes and all related structures Pupils: Equal, round and reactive pupils present EOM: EOMs intact bilaterally Neck Neck: Yes full ROM Chest Chest palpation & inspection: normal inspection of the chest Resp Other: On oxygen 2 L a minute 2/47 or most of the time. Presents today with oxygen separator and nasal cannula in her nostrils. Effort & Inspection: normal respiratory effort, able to speak in complete sentences, abnormal respiratory pattern, audible wheezes, Actively coughing, labored and nasal flaring Cardio Jugular venous distension: no JVD GI Inspection: Yes normal to inspection Back/Spine/Pelvis Other: Cervical Spine/Neck: ? C SPINE EXAM:?Myofascial trigger points are present, well-healed surgical scar ACDF.? RANGE OF MOTION OF NECK:?normal in all directions, full cervical ROM, mild pain with side bending b/l.? REFLEXES:?Brachioradialis and biceps brachii seem to be symmetrical, however left triceps reflex seem to be diminished on the left..? SENSATIONS:? diminished sensation to light touch in left hand.? 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 VERTEBRAL SPINE TENDERNESS:?absent.? PARASPINAL MUSCLE SPASM:?absent bilaterally.? TRAPEZIUS TENDERNESS:?present bilaterally Neuro General: patient oriented x3 and gait normal Cranial nerves: Yes CN's II-XII intact bilaterally, Yes Equal, round and reactive pupils present, Yes Normal hearing present and Yes Ability to bilaterally elevate shoulders present Speech: No Abnormal speech present Gait exam (Neuro): Normal gait present Motor exam (neuro): 5/5 motor strength present throughout Sensory Exam: No Sensory deficit (Neuro) Extrem General: No pedal edema Assessment & Plan Assessment & Plan (1) Type 2 diabetes mellitus without complication, with no history of insulin use: Code(s): E11.9 - Type 2 diabetes mellitus without complications Category: Medical (2) COPD (chronic obstructive pulmonary disease): Comment: Sees [facility] Pulmonary Code(s): J44.9 - Chronic obstructive pulmonary disease, unspecified Category: Medical Qualifiers: COPD type: COPD with acute exacerbation Qualified Code(s): J44.1 - Chronic obstructive pulmonary disease with (acute) exacerbation (3) Cervicalgia: Code(s): M54.2 - Cervicalgia Category: Medical (4) Postlaminectomy syndrome, cervical: Code(s): M96.1 - Postlaminectomy syndrome, not elsewhere classified Category: Medical Plan The patient came back to my office to discuss spinal cord stimulator Nevro. See discussion as above. It remains to be seen whether she will be a good candidate for the anesthesia due to worsening of her pulmonary condition. She will give us a call to schedule appointment after her psychological evaluation is done. At that time we will send her to [facility], meanwhile she will try to obtain clearance for the procedure from her vermin exterminator in [facility]. Patient Instructions: I here by testify that I spent 30 minutes in conversation with this patient as well as planning her care and organizing this note. Coding Level of Care Code Est Pt Level 4 (58657) Diagnoses Type 2 diabetes mellitus without complication, with no history of insulin use E11.9 Chronic obstructive pulmonary disease with acute exacerbation J44.1 COPD type: COPD with acute exacerbation Cervicalgia M54.2 Postlaminectomy syndrome, cervical M96.1
== END 2025-06-21 15:16 | disposition home or self-care (01) ==
PROVIDERS: PCP Internal Medicine; Visit Provider Anesthesiology
DX: E11.9 Type 2 diabetes mellitus without complications (principal); J44.1 Chronic obstructive pulmonary disease with (acute) exacerbation; M54.2 Cervicalgia; M96.1 Postlaminectomy syndrome, not elsewhere classified
CPT/HCPCS: 99214

== ENCOUNTER → 2025-06-21 14:18 | Outpatient (BNVA) | payer OTHER, SELFPAY | PROVIDERS: PCP Internal Medicine; Visit Provider Anesthesiology | DX: M54.2 Cervicalgia (principal); M96.1 Postlaminectomy syndrome, not elsewhere classified; E11.9 Type 2 diabetes mellitus without complications; J44.1 Chronic obstructive pulmonary disease with (acute) exacerbation | CPT/HCPCS: 99212 ==

== ENCOUNTER 2025-06-24 12:49 | Inpatient (IN) | payer OTHER, SELFPAY ==
--- NOTE | ~2025-06-24 | XR_ITS ---
CLINICAL HISTORY: COughing. pneuomnia? 1 view chest x-ray. Comparison: 02/04/2025 Findings: No consolidation or effusion. Cardiac and mediastinal contours appear stable. Bones unremarkable. Impression: 1. No acute pulmonary disease. This document has been electronically signed by: Lj Cortez MD on 06/24/2025 15:11:16
--- NOTE | ~2025-06-24 | CT_ITS ---
CLINICAL HISTORY: hypoxia, tachycardia CT angiography chest with contrast. 3D Postprocessing. Comparison: CT/REG/SR - CT CHEST W IV CON - 05/29/25 20:[address]/SR - CT ABDOMEN PELVIS W IV CON - 05/29/25 20:32 EDT Findings: No central pulmonary arterial embolus. Suboptimal contrast bolus for assessment of more distal vasculature. Normal cardiac morphology. Severe coronary artery calcification. RV/LV ratio is normal. Aortic calcified and noncalcified atherosclerosis. Approximately 50% narrowing of the infrarenal abdominal aorta (series 7, image 164), similar compared to prior. Small hiatal hernia. Normal thyroid. Similar right lower lobe scarring with several pulmonary nodules measuring up to 5 mm, stable compared to prior. Stable right middle lobe solid pulmonary nodule ( 4 mm ). No acute abnormality in the upper abdomen.Mild bilateral adrenal gland thickening without discrete lesion. No acute fracture or dislocation. Partially visualized cervical anterior cervical discectomy and fusion hardware. IMPRESSION: 1. No central pulmonary arterial embolus. Suboptimal exam for evaluation of distal vasculature. 2. Similar right lower lobe parenchymal scarring with multiple similar pulmonary nodules. Recommend repeat CT chest in 12 months to ensure continued stability. 3. Severe coronary artery calcification. This document has been electronically signed by: Juan Gipson MD on 06/25/2025 01:37:01
[2025-06-24 12:57] VITALS: BP 147/65; PULSE 105; RESP 18; TEMP 36.6; O2SAT 94; BMI 23.2
--- NOTE | 2025-06-24 13:01 | ECG_ITS ---
Test Reason : SOB Blood Pressure : */* mmHG Vent. Rate : 112 BPM Atrial Rate : 112 BPM P-R Int : 116 ms QRS Dur : 78 ms QT Int : 340 ms P-R-T Axes : 78 92 55 degrees QTcB Int : 464 ms Sinus tachycardia Possible Left atrial enlargement Rightward axis Borderline ECG When compared with ECG of 29-May-2025 20:50, No significant change was found Referred By: Canelo Osborne Electronically Signed By: YOHAN PATEL MD
--- NOTE | 2025-06-24 13:02 | ED.GENADULT ---
HPI - General Adult General Chief complaint: Upper Respiratory Symptoms Stated complaint: ?pneumonia, rash on bttox Time Seen by Provider: 06/24/25 14:52 Source: patient, RN notes reviewed and old records reviewed Mode of arrival: ambulatory Limitations: no limitations History of Present Illness ED Provider: MILO Coulter HPI narrative: 65-year-old female with medical history of HTN, COPD on 2 L home O2, GERD, gastroparesis, gastritis, constipation, T2DM, presents to the ED due to right-sided back pain, and cough for 2 days. Patient is somewhat of a poor historian, when asking her questions she frequently begins to answer, but then stops talking and does not remember what she was going to say or remember that I have asked her any questions. Patient reports she thought she had pneumonia due to increased cough, but she states that she is not having increased sputum production. Patient states the back pain is only there when she coughs. When asking about her cough, the patient states she coughs all the time, when I ask her why she was concerned she had pneumonia, she tells me because she has back pain. Patient states the back pain stays on the right side, and does not radiate. Patient denies any worsening shortness of breath from her baseline. At the last moment of talking with the patient, she states what she is really concerned about is a rash of her buttocks as it is irritating her and very painful. Denies fall/trauma/injury, chest pain, abdominal pain, nausea, vomiting MD complaint: Right-sided thoracic back pain, rash on buttocks Related Data Home Medications ?Medication ?Instructions ?Recorded ?Confirmed aspirin 81 mg tablet,delayed 81 mg PO BEDTIME 01/10/21 06/25/25 release (Adult Low Dose Aspirin) fluticasone fur. 100 mcg-umeclid 1 ea inhalation DAILY 02/05/25 06/25/25 62.5 mcg-vilant 25 mcg inhalat.powder (Trelegy Ellipta) psyllium husk 0.52 gram capsule 1.04 g PO BID 04/02/25 06/25/25 (Fiber Laxative (psyllium husk)) sitagliptin phosphate 100 mg 100 mg PO DAILY 04/02/25 06/25/25 tablet (Januvia) azithromycin 250 mg tablet 500 mg PO TUTHSA 05/16/25 06/25/25 Held on 05/17/25. Instructions: Resume on 05/21/25. simethicone 180 mg capsule 180 mg PO QID PRN gas 06/25/25 06/25/25 (Anti-Gas Ultra Strength) Previous Rx's ?Medication ?Instructions ?Recorded linaclotide 72 mcg capsule 72 mcg PO QAM #30 caps 04/03/25 (Linzess) esomeprazole magnesium 40 mg 40 mg PO DAILY #30 caps 04/17/25 capsule,delayed release famotidine 40 mg tablet 40 mg PO BEDTIME #90 tabs 04/17/25 metoclopramide HCl 10 mg tablet 10 mg PO QIDACHS #180 tabs 04/17/25 (Reglan) dimethicone 5 % topical cream 1 appl topical QID PRN skin 04/27/25 (Soothe and Cool Inzo Barrier) irritation #118.29 mL nicotine 21 mg/24 hr daily 21 mg transdermal DAILY #7 ea 05/17/25 transdermal patch albuterol sulfate 90 mcg/actuation 2 puff inhalation Q6H PRN 05/30/25 aerosol inhaler (Ventolin HFA) shortness of breath or wheezing #6.7 grams baclofen 10 mg tablet 10 mg PO TID 30 days #90 tabs 06/01/25 gabapentin 800 mg tablet 800 mg PO TID 30 days #90 tabs 06/08/25 FreeStyle Lite Strips (blood sugar #100 ea 06/20/25 diagnostic) amlodipine 5 mg tablet 5 mg PO DAILY #90 tabs 06/20/25 blood-glucose meter (FreeStyle #1 ea 06/20/25 Lite Meter kit) cholecalciferol (vitamin D3) 50 50 mcg PO DAILY #90 caps 06/20/25 mcg (2,000 unit) capsule flash glucose scanning reader #1 ea 06/20/25 (FreeStyle Cristian 2 Merkel) flash glucose sensor (FreeStyle #6 ea 06/20/25 Cristian 2 Sensor kit) lancets 28 gauge (FreeStyle #100 ea 06/20/25 Lancets) magnesium oxide 400 mg PO BEDTIME #30 caps 06/20/25 metformin 1,000 mg tablet 1,000 mg PO BID #180 tabs 06/20/25 rosuvastatin 5 mg tablet 5 mg PO DAILY #90 tabs 06/20/25 losartan 50 mg tablet 50 mg PO DAILY #90 tabs 06/21/25 Allergies Allergy/AdvReac Type Severity Reaction Status Date / Time amoxicillin (AMOXICILLIN) Allergy Intermediate RASH Verified 06/24/25 13:01 Review of Systems Review of Systems: Yes all other systems are reviewed and are negative [facility] Past Medical History Attestation statement: The following information was validated with the patient. Source: old records reviewed and nursing notes reviewed Medical History COPD (chronic obstructive pulmonary disease) Chronic hypercapnic respiratory failure Mixed dyslipidemia Heavy cigarette smoker History of pneumonia Gastritis Diabetic gastroparesis Diastolic CHF with preserved left ventricular function, NYHA class 2 Type 2 diabetes mellitus with other diabetic kidney complication Essential hypertension Postlaminectomy syndrome of cervical region Seasonal allergic rhinitis GERD (gastroesophageal reflux disease) Surgical History H/O cervical discectomy History of esophagogastroduodenoscopy (EGD) Hx of colonoscopy Family History Family History Mother Diabetes Sister Diabetes Mental health disorder Brother Diabetes Father HTN (hypertension) Social History Social History Household Members: Spouse Housing: Unknown / Unable to assess Housing Other:: pt unable to recall Are you a primary vision care associate to a significant other at home: No Do you presently have visiting nurse or other home services: Yes ([facility] and [employer] but pt states they have not been coming.) Alcohol intake: current Alcohol intake frequency: does not drink 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 Patient Tobacco Use Status: Current everyday Tobacco user Tobacco use type: Cigarette Cigarette Packs Per Day: 1 Cigarettes Per Day: 20.0 Years Smoked: 51 Smoked in Last 30 Days: Yes e-Cigarette/Vaping Use: Never Used Second Hand Smoke Exposure: Yes Use of substances other than those prescribed or required for medical reasons: No Advance Directives: Yes Advance Directives on File: Yes Advance Directives Date on File: 08/02/23 Do you have a plan to hurt others: No Plan Nutrition Risks: No Nutritional Risk Patient : No service: No Current occupational status: unemployed and disabled Gender identity: Female Cognitive needs: No Hearing needs: No Vision needs: Yes Physical Exam ED Vital Signs: Vital Signs - 24 hr 06/24/25 12:57 06/24/25 14:17 06/24/25 14:17 Temperature 98 F 98 F Pulse Rate 105 H 105 H Respiratory Rate 18 18 Blood Pressure 147/65 H 147/65 H Pulse Oximetry 94 96 96 Oxygen Delivery Method Nasal Cannula Nasal Cannula Nasal Cannula Oxygen Flow Rate 2 06/24/25 17:00 Temperature Pulse Rate 64 Respiratory Rate 22 H Blood Pressure Pulse Oximetry Oxygen Delivery Method Oxygen Flow Rate BMI result Body Mass Index 23.2 GENERAL APPEARANCE: ?AxOx4, nontoxic appearing, no acute distress. HEENT: ?NC, AT. MMM. EOMI, clear conjunctiva, oropharynx clear. NECK: ?Supple without lymphadenopathy.? No stiffness or restricted ROM. HEART:? Normal rate and regular rhythm, normal S1/S2, no m/r/g LUNGS:? Diminished breath sounds throughout all lung mayo, no wheezing, rhonchi or rales auscultated, there is no increased work of breathing, no accessory muscle use noted. ABDOMEN: ?Soft, nontender, nondistended BACK: No CVAT, no obvious deformity. TTP of R sided thoracic paraspinal muscles, no midline spinal tenderness, no bony step-offs palpated or observed, no overlying skin changes or rashes. Patient is able to move about the stretcher without significant pain. RECTAL: Rectal area with erythema, excoriations, no open areas, no drainage, areas consistent with a diaper dermatitis as patient has history of fecal incontinence, no satellite lesions or evidence of candidiasis. EXTREMITIES: ?Without cyanosis, clubbing or edema. NEUROLOGICAL: ?Grossly nonfocal. Alert and oriented, moving all 4 extremities. Skin: ?Warm and dry without any rash. Course Course Course Narrative: RME: 65-year-old female history of COPD dependent and still smoking presents to ED for coughing, left upper back pain, shortness of breath. Patient states she has pneumonia. X-ray imaging labs ordered Reevaluation(s) Reevaluation #1: While patient was attempting to ambulate, heart rate elevated into the 140s, O2 saturation on 2 L nasal cannula dropped to 59%, patient felt very weak and shaky. I am giving patient 1 L IV fluids, and 500 mg IV azithromycin for bacterial coverage. Patient does not meet sepsis guidelines at this time. I have reached out to hospitalist Dr. Forman for admission for hypoxia and COPD exacerbation who will admit to medicine for further evaluation and management. Time: 19:03 Medications Administered Generic Name Dose Route Start Last Admin Trade Name Jordon PRN Reason Stop Dose Admin Albuterol/Ipratropium 3 ml 06/25/25 08:00 06/25/25 08:02 Albuterol/Iprat 2.5/0.5mg 3 Ml Ampul.Neb INHALE 3 ml RQ6H WHILE AWAKE MOUSTAPHA Administration Enoxaparin Sodium 40 mg 06/24/25 21:00 06/24/25 22:51 Enoxaparin Sodium 40 Mg/0.4 Ml Syringe SUBCUT 40 mg Q24H MOUSTAPHA Administration Lactated Ringer's 1,000 mls @ 80 mls/hr 06/24/25 23:45 06/25/25 00:22 Lr IVCONT 80 mls/hr .[id number] MOUSTAPHA Administration Insulin Human Lispro 0 unit 06/24/25 21:00 06/25/25 06:38 Insulin Lispro 100 Unit/Ml 3 Ml Vial SUBCUT 2 unit QIDACHS MOUSTAPHA Administration Protocol Methylprednisolone Sodium Succinate 40 mg 06/25/25 00:00 06/25/25 05:45 Methylprednisolone Sod Succ 40 Mg/Ml Vial IVPUSH 40 mg Q6H MOUSTAPHA Administration Sodium Chloride 3 ml 06/25/25 00:00 06/25/25 07:25 0.9 % Sodium Chloride Flush 3 Ml Syringe IVFLUSH Not Given QSHIFT MOUSTAPHA Discontinued Medications Generic Name Dose Route Start Last Admin Trade Name Jordon PRN Reason Stop Dose Admin Acetaminophen 975 mg 06/24/25 16:40 06/24/25 16:55 Acetaminophen 325 Mg Tablet PO 06/24/25 16:41 975 mg ONCE ONE Administration Albuterol Sulfate 2.5 mg/ 0 mg 06/24/25 16:59 06/24/25 17:05 Albuterol/Ipratropium 3 ml INHALE 06/24/25 17:00 5 dose ONCE ONE Administration Hydromorphone HCl 0.5 mg 06/24/25 22:45 06/24/25 22:59 Hydromorphone Hcl 1 Mg/Ml Syringe IVPUSH 06/24/25 22:46 0.5 mg ONCE ONE Administration Protocol Lactated Ringer's 1,000 mls @ 999 mls/hr 06/24/25 19:00 06/24/25 23:11 Lr IV 06/24/25 20:00 Infused .Q1H1M ONE Infusion Azithromycin 500 mg/ Sodium 250 mls @ 125 mls/hr 06/24/25 19:02 06/24/25 23:10 Chloride IV 06/24/25 21:01 Infused ONCE ONE Infusion Lactated Ringer's 1,461 mls @ 1,461 mls/hr 06/24/25 20:44 06/25/25 00:16 Lr 30 ml/kg infuse over 1 hr (1461 ml) 06/24/25 21:43 Infused IV Infusion .Q1H ONE Iohexol 65 ml 06/25/25 00:43 06/25/25 00:47 Iohexol 350 Mg/Ml 100 Ml Infus..Btl IV 06/25/25 00:44 65 ml ONCE ONE Administration Methylprednisolone Sodium Succinate 60 mg 06/24/25 17:16 06/24/25 18:00 Methylprednisolone Sod Succ 125 Mg/2 Ml Vial IVPUSH 06/24/25 17:17 60 mg ONCE ONE Administration Nicotine 7 mg 06/24/25 20:58 06/24/25 21:44 Nicotine 7 Mg Patch.Td24 TRANSDERMA 06/24/25 20:59 7 mg ONCE ONE Administration Ondansetron HCl 4 mg 06/24/25 22:28 06/24/25 22:59 Ondansetron Hcl 4 Mg/2 Ml Vial IVPUSH 06/24/25 22:29 4 mg ONCE ONE Administration Medical Decision Making Medical Decision Making MDM Narrative: 65-year-old female with medical history of HTN, COPD on 2 L home O2, GERD, gastroparesis, gastritis, constipation, T2DM, presents to the ED due to right-sided back pain, and cough for 2 days, without increased sputum production or worsening shortness of breath from her baseline. Right-sided back pain is intermittent, but she has a hard time describing it is quality, with pain exacerbated when she is coughing. She has not taken any OTC medications for analgesia, denies fall, trauma or injury to the back. VS on initial observation-BP 147/65, pulse rate of 64, respiratory rate of 22, afebrile with oral temp of 98?, O2 saturation 96% on 2 L nasal cannula. On physical exam Diminished breath sounds throughout all lung mayo, no wheezing, rhonchi or rales auscultated, there is no increased work of breathing, no accessory muscle use noted. TTP of R sided thoracic paraspinal muscles, no midline spinal tenderness, no bony step-offs palpated or observed, no overlying skin changes or rashes. Patient is able to move about the stretcher without significant pain. Rectal area with erythema, excoriations, no open areas, no drainage, areas consistent with a diaper dermatitis as patient has history of fecal incontinence, no satellite lesions or evidence of candidiasis. Labs reveal leukocytosis of 12.9, microcytic anemia with a hemoglobin of 10.3, and hematocrit of 36.9, elevated carbon dioxide of 30, BNP is WNL. VBG with elevated HCO3 of 36, however this is patients baseline as she is a CO2 retainer from COPD. Viral serology negative. EKG reveals sinus tachycardia, without significant ST-elevation/depression, lengthened QT, initial troponin WNL at 3.4, 2nd troponin 4.8, no delta, patient without chest pain. CXR negative for acute cardiopulmonary processes Patient medicated with 975 mg p.o. Tylenol, 60 mg IV methylprednisolone, with albuterol and DuoNeb treatment. When attempting to ambulate the patient, O2 saturation drops down to 59%, and heart rate jumps up to the 140s, patient is very shaky, and weak. At 8:57 p.m. on 06/24/2025 I suspected infection, due to leukocytosis of 12.9, tachycardia and lactic acid of 4.1. 30 mg/kg fluid bolus ordered, patient has been medicated with 500 mg IV azithromycin for bacterial coverage. I reached out to hospitalist Dr. Little who recommended CTA chest PE protocol and will admit to medicine for further management. Differential Diagnosis Differential Diagnoses: The differential diagnosis associated with the presentation includes COPD exacerbation Pneumonia Bronchitis COVID Flu Viral illness Admission/Observation Consideration of admission/observation: Escalation of care including admission/observation considered Lab Data MDM Lab Attestation statement: I reviewed the patient's lab results. 06/25/25 03:37 06/25/25 03:37 Labs: Lab Results 06/24/25 06/24/25 06/24/25 Range/Units 13:44 17:38 17:43 WBC 12.9 H (4.8-10.8) X10*3/uL RBC 4.73 (4.20-5.50) X10*6/uL Hgb 10.3 L (12.0-16.0) g/dl Hct 36.9 L (37.0-47.0) % MCV 78.0 L (80.0-98.0) fL MCH 21.8 L (27.0-33.0) pg MCHC 27.9 L (31.0-35.0) g/dl RDW 18.9 H (11.0-16.0) % Plt Count 417 H (160-400) X10*3/uL MPV 9.5 (9.4-12.3) fL Immature Gran % (Auto) 0.4 (0.0-0.4) % Neut % (Auto) 66.7 (45-73) % Lymph % (Auto) 20.7 (20-40) % [place] % (Auto) 7.0 (2-11) % Eos % (Auto) 4.3 H (0-4) % Baso % (Auto) 0.9 (0-2) % Lymph # (Auto) 2.7 (1.2-4.9) X10*3/uL [place] # (Auto) 0.9 (0.1-1.2) X10*3/uL Eos # (Auto) 0.6 H (0.0-0.4) X10*3/uL Baso # (Auto) 0.1 (0.0-0.2) X10*3/uL Abs Immat Gran (auto) 0.05 H (0.00-0.03) X10*3/uL Absolute Neuts (auto) 8.6 H (2.0-8.3) x10*3/uL Absolute Nucleated RBC 0.000 (0.0-0.012) X10*3/uL Nucleated RBC % (auto) 0.0 (0.0-0.2) /100WBC VBG pH 7.37 (7.32-7.43) VBG pCO2 60 mmHg VBG pO2 58 mmHg VBG HCO3 36 H (22-26) mmol/L VBG O2 Saturation 78.0 % VBG Base Excess 8.6 mmol/L Sodium 142 (135-145) mmol/L Potassium 4.0 D (3.3-5.1) mmol/L Chloride 101 (96-108) mmol/L Carbon Dioxide 30 H (22-29) mmol/L Anion Gap 15 (12-20) BUN 7 L (9-16) mg/dL Creatinine 0.45 L (0.5-1.4) mg/dL Estim Creat Clear Calc 85.0 Estimated GFR > 60 Random Glucose 153 H (60-115) mg/dL Lactic Acid (0.5-2.0) mmol/L Calcium 10.4 H (8.4-10.2) mg/dL Total Bilirubin 0.2 (0.0-1.0) mg/dL AST 14 (5-31) U/L ALT 12 (0-31) U/L Alkaline Phosphatase 89 (39-117) U/L Troponin I High Sens 3.4 4.8 (<3.5-17.0) ng/L NT-Pro-B Natriuret Pep 28.5 (<300) pg/mL Total Protein 7.2 (6.5-8.0) g/dL Albumin 4.6 (3.5-5.0) g/dL Influenza Type A (PCR) NEGATIVE (Negative) Influenza Type B (PCR) NEGATIVE (Negative) RSV RNA Qual (PCR) NEGATIVE (Negative) SARS-CoV-2 RNA (RT-PCR) NEGATIVE (Negative) 06/24/25 Range/Units 19:38 WBC (4.8-10.8) X10*3/uL RBC (4.20-5.50) X10*6/uL Hgb (12.0-16.0) g/dl Hct (37.0-47.0) % MCV (80.0-98.0) fL MCH (27.0-33.0) pg MCHC (31.0-35.0) g/dl RDW (11.0-16.0) % Plt Count (160-400) X10*3/uL MPV (9.4-12.3) fL Immature Gran % (Auto) (0.0-0.4) % Neut % (Auto) (45-73) % Lymph % (Auto) (20-40) % [place] % (Auto) (2-11) % Eos % (Auto) (0-4) % Baso % (Auto) (0-2) % Lymph # (Auto) (1.2-4.9) X10*3/uL [place] # (Auto) (0.1-1.2) X10*3/uL Eos # (Auto) (0.0-0.4) X10*3/uL Baso # (Auto) (0.0-0.2) X10*3/uL Abs Immat Gran (auto) (0.00-0.03) X10*3/uL Absolute Neuts (auto) (2.0-8.3) x10*3/uL Absolute Nucleated RBC (0.0-0.012) X10*3/uL Nucleated RBC % (auto) (0.0-0.2) /100WBC VBG pH (7.32-7.43) VBG pCO2 mmHg VBG pO2 mmHg VBG HCO3 (22-26) mmol/L VBG O2 Saturation % VBG Base Excess mmol/L Sodium (135-145) mmol/L Potassium (3.3-5.1) mmol/L Chloride (96-108) mmol/L Carbon Dioxide (22-29) mmol/L Anion Gap (12-20) BUN (9-16) mg/dL Creatinine (0.5-1.4) mg/dL Estim Creat Clear Calc Estimated GFR Random Glucose (60-115) mg/dL Lactic Acid 4.1 H* (0.5-2.0) mmol/L Calcium (8.4-10.2) mg/dL Total Bilirubin (0.0-1.0) mg/dL AST (5-31) U/L ALT (0-31) U/L Alkaline Phosphatase (39-117) U/L Troponin I High Sens (<3.5-17.0) ng/L NT-Pro-B Natriuret Pep (<300) pg/mL Total Protein (6.5-8.0) g/dL Albumin (3.5-5.0) g/dL Influenza Type A (PCR) (Negative) Influenza Type B (PCR) (Negative) RSV RNA Qual (PCR) (Negative) SARS-CoV-2 RNA (RT-PCR) (Negative) Independent Interpretation I performed an independent interpretation of an: EKG and Plain X-Ray Interpretation: I personally interpreted the EKG which reveals sinus tachycardia without significant ST-elevation/depression, lengthened QT Vent. Rate : 112 BPM Atrial Rate : 112 BPM P-R Int : 116 ms QRS Dur : 78 ms QT Int : 340 ms P-R-T Axes : 78 92 55 degrees QTcB Int : 464 ms Sinus tachycardia Possible Left atrial enlargement Rightward axis Borderline ECG When compared with ECG of 29-May-2025 20:50, No significant change was found I personally interpreted the CXR which was negative for acute cardiopulmonary processes, I agree with the radiologist's interpretation Radiology Impression Discussion of test interpretation with radiology: I have reviewed the radiologist's reading. Radiologist Impression: CXR Findings: No consolidation or effusion. Cardiac and mediastinal contours appear stable. Bones unremarkable. Impression: 1. No acute pulmonary disease. This document has been electronically signed by: Lj Cortez MD on 06/24/2025 15:11:16 Dictated By: Lj Cortez MD Signed By: <Electronically signed by Lj Cortez MD in OV> 06/24/25 1512 External Record Review External record reviewed: Inpatient record, Office record, Outpatient record and Prior outpatient labs Chronic Conditions Patient?s care impacted by: Diabetes and Hypertension Discharge Plan Discharge Clinical Impression: COPD with acute exacerbation, Hypoxia Patient Disposition: Admitted As Inpatient
[2025-06-24 13:48] LABS: MANUAL DIFF FLAG NO
[2025-06-24 13:51] LABS: Hematocrit 36.9 % (37.0-47.0); Hemoglobin 10.3 g/dl (12.0-16.0); Imm Gran Abs Auto 0.05 X10*3/uL (0.00-0.03); Imm Gran Pct Auto 0.4 % (0.0-0.4); Lymphocytes Absolute Auto 2.7 X10*3/uL (1.2-4.9); Mean Corpuscular HGB Conc 27.9 g/dl (31.0-35.0); Mean Corpuscular Hemoglobin 21.8 pg (27.0-33.0); Mean Corpuscular Volume 78.0 fL (80.0-98.0); NRBC Abs Auto 0.000 X10*3/uL (0.0-0.012); NRBC Pct Auto 0.0 /100WBC (0.0-0.2); Platelet Count 417 X10*3/uL (160-400); Red Blood Count 4.73 X10*6/uL (4.20-5.50); White Blood Count 12.9 X10*3/uL (4.8-10.8)
[2025-06-24 14:10] LABS: Alanine Aminotransferase 12 U/L (0-31); Albumin Level 4.6 g/dL (3.5-5.0); Alkaline Phosphatase 89 U/L (39-117); Anion Gap 15 (12-20); Aspartate Amino Transferase 14 U/L (5-31); Blood Urea Nitrogen 7 mg/dL (9-16); Calcium 10.4 mg/dL (8.4-10.2); Carbon Dioxide 30 mmol/L (22-29); Chloride 101 mmol/L (96-108); Creatinine Clr Calc Pharmacy 85.0; Estimated Glomerular Filt Rate > 60; Potassium 4.0 mmol/L (3.3-5.1); Sodium 142 mmol/L (135-145); Total Protein 7.2 g/dL (6.5-8.0)
[2025-06-24 14:17] VITALS: BP 147/65; PULSE 105; RESP 18; TEMP 36.6; O2SAT 96
[2025-06-24 14:17] LABS: NT Pro B Type Natriuretic Pept 28.5 pg/mL (<300); Troponin-I High Sensitivity 3.4 ng/L (<3.5-17.0)
[2025-06-24 14:28] LABS: Resp Syncy Virus RNA Qual PCR NEGATIVE (Negative); SARS COV2 PCR INHOUSE NEGATIVE (Negative)
[2025-06-24 17:00] VITALS: PULSE 64; RESP 22; O2SAT 92
[2025-06-24] MEDS: Albuterol Sulfate 2.5 MG, Albuterol/Iprat 2.5/0.5MG 3 ML 3 ML INHALE (17:05)
[2025-06-24 17:47] LABS: VBG HCO3 36 mmol/L (22-26); VBG O2 % Saturation 78.0 %
[2025-06-24 17:47] LABS: Venous Blood Gas Refer to POC result
[2025-06-24 18:04] LABS: Troponin-I High Sensitivity 4.8 ng/L (<3.5-17.0)
[2025-06-24] MEDS: Lactated Ringers 1,000 ML 999 ML IV (19:41)
--- NOTE | 2025-06-24 19:51 | PC.NURSE ---
Hospitalist PA to bedside to admit patient, patient refusing admission, states she wants to go home because she will not make it through the night without a cigarette. Nicotine patch or gum offered to patient, pt refused, states she still wants to go home. Naveen RODAS to bedside to encourage patient to stay as well as the risks of leaving AMA. This RN also encouraged patient to stay and reviewed with risks of leaving AMA, patient awake and alert and oriented, patient states that she understands these risks and still wants to go home after IV antibiotics are administered. Patient states that she lives with her boyfriend and he will pick her up. lactic and blood cultures obtained, fluids and antibiotics administered per order.
--- NOTE | 2025-06-24 20:56 | PM.IMHP ---
History of Present Illness Date of Service: 06/24/25 Chief Complaint: cough 65-year-old female with a past medical history of hypertension, hyperlipidemia, diabetes, renal cell carcinoma, gastroparesis, GERD, cervicalgia, post laminectomy syndrome, COPD on 2 L of home oxygen; presented to the hospital today with a chief complaint of cough and shortness of breath. Patient having cough without any sputum production. Cough is unrelenting. Has been having posttussive chest wall discomfort. Denies any chest pain per se. Denies any lightheadedness or dizziness. Patient denies any. Denies any urinary symptoms. Review of all other systems is negative except mentioned above ER course: Per ER team, patient on presentation noted to be short of breath; has diminished breath sounds; on ambulation patient was desaturated to high 80s; not in respiratory distress. Given nebulizations and steroids. [facility] Medical History COPD (chronic obstructive pulmonary disease) Chronic hypercapnic respiratory failure Mixed dyslipidemia Heavy cigarette smoker History of pneumonia Gastritis Diabetic gastroparesis Diastolic CHF with preserved left ventricular function, NYHA class 2 Type 2 diabetes mellitus with other diabetic kidney complication Essential hypertension Postlaminectomy syndrome of cervical region Seasonal allergic rhinitis GERD (gastroesophageal reflux disease) Family History Mother Diabetes Sister Diabetes Mental health disorder Brother Diabetes Father HTN (hypertension) Surgical History H/O cervical discectomy History of esophagogastroduodenoscopy (EGD) Hx of colonoscopy Social History Household Members: Significant Other Housing: Other Housing Other:: trailer Are you a primary vp care management to a significant other at home: No Do you presently have visiting nurse or other home services: Yes ([facility] and [employer] but pt states they have not been coming.) Alcohol intake: current Alcohol intake frequency: does not drink 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 Patient Tobacco Use Status: Current everyday Tobacco user Tobacco use type: Cigarette Cigarette Packs Per Day: 1 Cigarettes Per Day: 20.0 Years Smoked: 51 Smoked in Last 30 Days: Yes e-Cigarette/Vaping Use: Never Used Second Hand Smoke Exposure: Yes Use of substances other than those prescribed or required for medical reasons: No Advance Directives: Yes Advance Directives on File: Yes Advance Directives Date on File: 08/02/23 Do you have a plan to hurt others: No Plan Patient : No service: No Current occupational status: unemployed and disabled Gender identity: Female Cognitive needs: No Hearing needs: No Vision needs: Yes Meds Allergies Allergy/AdvReac Type Severity Reaction Status Date / Time amoxicillin (AMOXICILLIN) Allergy Intermediate RASH Verified 06/24/25 13:01 Active Medications: Current Medications Acetaminophen (Acetaminophen 325 Mg Tablet) 650 mg PO Q6H PRN PRN Reason: Pain, Mild 1-3,fever,headache Azithromycin 500 mg/ Sodium (Chloride) 250 mls @ 125 mls/hr IV ONCE ONE Stop: 06/24/25 21:01 Last Admin: 06/24/25 19:40 Dose: 125 mls/hr Lactated Ringer's (Lr) 1,461 mls @ 1,461 mls/hr 30 ml/kg infuse over 1 hr (1461 ml) IV .Q1H ONE Stop: 06/24/25 21:43 Melatonin (Melatonin 3 Mg Tablet) 6 mg PO BEDTIME PRN PRN Reason: Insomnia Sodium Chloride (0.9 % Sodium Chloride Flush 3 Ml Syringe) 3 ml IVFLUSH QSHIFT [facility] Home Medications ?Medication ?Instructions ?Recorded ?Confirmed ?Last Taken ?Type aspirin 81 mg tablet,delayed 81 mg PO BEDTIME 01/10/21 06/07/25 2 Days Ago History release (Adult Low Dose Aspirin) ~05/14/25 fluticasone fur. 100 mcg-umeclid 1 ea inhalation DAILY 02/05/25 06/07/25 2 Days Ago History 62.5 mcg-vilant 25 mcg ~05/14/25 inhalat.powder (Trelegy Ellipta) psyllium husk 0.52 gram capsule 1.04 g PO BID 04/02/25 06/07/25 2 Days Ago History (Fiber Laxative (psyllium husk)) ~05/14/25 sitagliptin phosphate 100 mg 100 mg PO DAILY 04/02/25 06/07/25 2 Days Ago History tablet (Januvia) ~05/14/25 azithromycin 250 mg tablet 250 mg PO TUTHSA 05/16/25 06/07/25 05/13/25 History Held on 05/17/25. Instructions: Resume on 05/21/25. Physical Exam Vital Signs and Narrative: Vital Signs: Last Vital Signs Temp 98 F 06/24/25 14:17 Pulse 64 06/24/25 17:00 Resp 22 H 06/24/25 17:00 BP 147/65 H 06/24/25 14:17 Pulse Ox 96 06/24/25 14:17 O2 Del Method Nasal Cannula 06/24/25 14:17 O2 Flow Rate 2 06/24/25 14:17 Oxygen Flow Rate 2 06/24/25 14:17 BMI result Body Mass Index 23.2 Gen: Appears be in no acute distress HEENT: NCAT, Moist mucosa. Pulmonary: Coarse breath sounds CVS: Normal S1-S2 Abdomen: BS+, Soft, Nontender Extremities: Warm well perfused Neuro: Alert and awake. Results Labs 06/24/25 13:44 06/24/25 13:44 Labs: Laboratory Results - last 24 hr 06/24/25 06/24/25 06/24/25 13:44 17:38 17:43 MCV 78.0 L MCH 21.8 L MCHC 27.9 L RDW 18.9 H Plt Count 417 H MPV 9.5 Immature Gran % (Auto) 0.4 Neut % (Auto) 66.7 Lymph % (Auto) 20.7 [place] % (Auto) 7.0 Eos % (Auto) 4.3 H Baso % (Auto) 0.9 Lymph # (Auto) 2.7 [place] # (Auto) 0.9 Eos # (Auto) 0.6 H Baso # (Auto) 0.1 Abs Immat Gran (auto) 0.05 H Absolute Neuts (auto) 8.6 H Absolute Nucleated RBC 0.000 Nucleated RBC % (auto) 0.0 VBG pH 7.37 VBG pCO2 60 VBG pO2 58 VBG HCO3 36 H VBG O2 Saturation 78.0 VBG Base Excess 8.6 Anion Gap 15 Estim Creat Clear Calc 85.0 Estimated GFR > 60 Random Glucose 153 H Lactic Acid Calcium 10.4 H Total Bilirubin 0.2 AST 14 ALT 12 Alkaline Phosphatase 89 Troponin I High Sens 3.4 4.8 NT-Pro-B Natriuret Pep 28.5 Total Protein 7.2 Albumin 4.6 Influenza Type A (PCR) NEGATIVE Influenza Type B (PCR) NEGATIVE RSV RNA Qual (PCR) NEGATIVE SARS-CoV-2 RNA (RT-PCR) NEGATIVE 06/24/25 19:38 MCV MCH MCHC RDW Plt Count MPV Immature Gran % (Auto) Neut % (Auto) Lymph % (Auto) [place] % (Auto) Eos % (Auto) Baso % (Auto) Lymph # (Auto) [place] # (Auto) Eos # (Auto) Baso # (Auto) Abs Immat Gran (auto) Absolute Neuts (auto) Absolute Nucleated RBC Nucleated RBC % (auto) VBG pH VBG pCO2 VBG pO2 VBG HCO3 VBG O2 Saturation VBG Base Excess Anion Gap Estim Creat Clear Calc Estimated GFR Random Glucose Lactic Acid 4.1 H* Calcium Total Bilirubin AST ALT Alkaline Phosphatase Troponin I High Sens NT-Pro-B Natriuret Pep Total Protein Albumin Influenza Type A (PCR) Influenza Type B (PCR) RSV RNA Qual (PCR) SARS-CoV-2 RNA (RT-PCR) Assessment and Plan (1) COPD with acute exacerbation: Status: Acute Plan 65-year-old female with a past medical history of hypertension, hyperlipidemia, diabetes, renal cell carcinoma, gastroparesis, GERD, cervicalgia, post laminectomy syndrome, COPD on 2 L of home oxygen; presented to the hospital today with a chief complaint of cough and shortness of breath. Noted to be in acute COPD exacerbation Acute COPD exacerbation: Acute on chronic respiratory failure: Patient currently not in respiratory distress. On supplemental oxygen. Goal oxygen saturation 88-93%. Reported chest wall discomfort secondary to coughing. Denies any pain at the time of my interview. EKG nonischemic. Troponin negative. Continue nebulizations standing and pain Continue Solu-Medrol Azithromycin Follow-up CT chest with PE protocol Trending pulse oximetry 1 ready for discharge Lactic acidosis: Likely in the setting of nebulizations. We will monitor. Mild hypercalcemia: Likely in setting of dehydration. Increased oral hydration. Diabetes: Insulin sliding scale DVT prophylaxis: Lovenox Code status: Full code Quality Stroke Does the patient have a stroke diagnosis?: No VTE Prior VTE?: No VTE Risk Level:: Medical - moderate - high VTE Device Contraindication: Treatment Not Indicated VTE Drug Contraindication: N/A - Med Ordered
--- NOTE | 2025-06-24 21:33 | PC.NURSE ---
patient now willing to be admitted. 22g IV to left AC flushes w/o issue but is occluding when patient bending elbow causing IV fluids and IV antibiotics to stop infusing. 20g IV to left wrist placed at this time. Patient aware of plan for care.
[2025-06-24 21:44] LABS: Reflex Lactate? Lactic Acid Added
[2025-06-24] MEDS: Nicotine 7 MG PATCH.TD24 TRANSDERMA (21:44)
[2025-06-24 22:02] VITALS: BP 157/58; PULSE 102; RESP 26; TEMP 36.6; O2SAT 95
[2025-06-24 22:07] VITALS: PULSE 105
--- NOTE | 2025-06-24 22:52 | PC.NURSE ---
assumed care of pt, pt in bed receiving medication from previous RN. Fluids and antibiotic continue to run due to a small IV and slow flow of medications. Pt denies needing anything at this time.
[2025-06-24 23:05] LABS: ~Lactic Acid-LAB USE ONLY 6.2 mmol/L (0.5-2.0)
--- NOTE | 2025-06-24 23:05 | PC.NURSE ---
pt medicated per MAR.
[2025-06-24 23:11] VITALS: BP 149/50; O2SAT 93
[2025-06-25] VITALS (14 sets, daily range): BP systolic 116–177; BP diastolic 46–82; PULSE 90–108; RESP 18–28; TEMP 36.4–37.1; O2SAT 91–98; BMI 23.8
[2025-06-25] MEDS: Lactated Ringers 1,000 ML 80 ML IVCONT (00:22)
[2025-06-25 00:44] LABS: Reflex Lactate? 2 Y
[2025-06-25] MEDS: iohexoL 350 MG/ML 100 ML INFUS..BTL 65 ML IV (00:47)
[2025-06-25] MEDS: 0.9 % Sodium Chloride Flush 3 ML SYRINGE IVFLUSH ×2 (00:56→17:08)
[2025-06-25 01:49] LABS: ~Lactic Acid-LAB USE ONLY 2.8 mmol/L (0.5-2.0)
--- NOTE | 2025-06-25 03:37 | PC.NURSE ---
respirations even and unlabored, pt sleeping.
[2025-06-25 03:57] LABS: Hematocrit 32.5 % (37.0-47.0); Hemoglobin 8.9 g/dl (12.0-16.0); Imm Gran Abs Auto 0.21 X10*3/uL (0.00-0.03); Imm Gran Pct Auto 1.9 % (0.0-0.4); Lymphocytes Absolute Auto 0.7 X10*3/uL (1.2-4.9); MANUAL DIFF FLAG SCAN; Mean Corpuscular HGB Conc 27.4 g/dl (31.0-35.0); Mean Corpuscular Hemoglobin 21.4 pg (27.0-33.0); Mean Corpuscular Volume 78.1 fL (80.0-98.0); NRBC Abs Auto 0.000 X10*3/uL (0.0-0.012); NRBC Pct Auto 0.0 /100WBC (0.0-0.2); Platelet Count 365 X10*3/uL (160-400); Red Blood Count 4.16 X10*6/uL (4.20-5.50); SCAN SMEAR FLAG 1; White Blood Count 11.1 X10*3/uL (4.8-10.8)
[2025-06-25 04:13] LABS: Alanine Aminotransferase 8 U/L (0-31); Albumin Level 4.2 g/dL (3.5-5.0); Alkaline Phosphatase 81 U/L (39-117); Anion Gap 13 (12-20); Aspartate Amino Transferase 17 U/L (5-31); Blood Urea Nitrogen 9 mg/dL (9-16); Calcium 9.2 mg/dL (8.4-10.2); Carbon Dioxide 31 mmol/L (22-29); Chloride 101 mmol/L (96-108); Creatinine Clr Calc Pharmacy 88.9; Estimated Glomerular Filt Rate > 60; Potassium 4.8 mmol/L (3.3-5.1); Sodium 140 mmol/L (135-145); Total Protein 6.5 g/dL (6.5-8.0)
[2025-06-25 05:21] LABS: Appearance Urine Turbid; Glucose Urine UA 100 mg/dL (Negative); PH 7.5 (5.0-9.0); Specific Gravity - Urine >= 1.030 (1.005-1.025)
[2025-06-25 06:28] LABS: Glucose, Whole Blood 190 mg/dL (60-115)
--- NOTE | 2025-06-25 06:39 | PC.NURSE ---
pt POC 190, 2 units given of insulin per protocol.
--- NOTE | 2025-06-25 07:51 | PHA.MEDREC ---
Pharmacy Consult ? Medication Reconciliation Pharmacy has completed the medication reconciliation. Patient poor historian. Utilized claim history and previous discharge list with documents from pcp appointment
[2025-06-25] MEDS: Albuterol/Iprat 2.5/0.5MG 3 ML AMPUL.NEB INHALE ×3 (08:02→20:42)
[2025-06-25] MEDS: Nicotine 21 MG PATCH.TD24 TRANSDERMA (11:06)
--- NOTE | 2025-06-25 11:43 | HO.PM.IMPN ---
Subjective Subjective Date of Service: 06/25/25 Interval History: f/u on acute and chronicc hypoxic respiratory failure due to copd exacerbation still sob with increaed wOb Physical Exam Exam: Exam: General: AO X 3, no acute distress Resp: dimished breath sounds, IWOB CVS: S1,S2,RRR GI: +BS, NT, no distention Skin: No rash Neuro: motor grossly intact Psych: appropriate affect Vital Signs: Vital Signs: Last Vital Signs Temp 98.5 F 06/25/25 08:31 Pulse 100 06/25/25 08:31 Resp 22 H 06/25/25 08:31 BP 167/71 H 06/25/25 11:05 Pulse Ox 91 L 06/25/25 08:31 O2 Del Method Nasal Cannula 06/25/25 08:31 O2 Flow Rate 3 06/25/25 08:31 Oxygen Flow Rate 2 06/24/25 14:17 BMI result Body Mass Index 23.2 Objective Data Active Medications Acetaminophen (Acetaminophen 325 Mg Tablet) 650 mg PO Q6H PRN PRN Reason: Pain, Mild 1-3,fever,headache Albuterol/Ipratropium (Albuterol/Iprat 2.5/0.5mg 3 Ml Ampul.Neb) 3 ml INHALE Q4H PRN PRN Reason: Shortness of Breath/Wheezing Albuterol/Ipratropium (Albuterol/Iprat 2.5/0.5mg 3 Ml Ampul.Neb) 3 ml INHALE RQ6H WHILE AWAKE [facility] Last Admin: 06/25/25 08:02 Dose: 3 ml Documented By: MEÑO Albuterol/Ipratropium (Albuterol/Iprat 2.5/0.5mg 3 Ml Ampul.Neb) 3 ml INHALE RQ4H WHILE AWAKE PRN PRN Reason: Shortness of Breath Amlodipine Besylate (Amlodipine Besylate 5 Mg Tablet) 5 mg PO DAILY [facility]; Protocol Last Admin: 06/25/25 11:05 Dose: 5 mg Documented By: MANDY Aspirin (Aspirin Enteric Coated 81 Mg Tablet.) 81 mg PO BEDTIME [facility] Atorvastatin Calcium (Atorvastatin Calcium 20 Mg Tablet) 20 mg PO DAILY [facility] Last Admin: 06/25/25 11:05 Dose: 20 mg Documented By: MANDY Azithromycin (Azithromycin 500 Mg Tablet) 500 mg PO Q24H [facility] Baclofen (Baclofen 10 Mg Tablet) 10 mg PO TID [facility] Last Admin: 06/25/25 10:42 Dose: Not Given Documented By: MANDY Non-Admin Reason: Duplicate Order Baclofen (Baclofen 10 Mg Tablet) 10 mg PO TID [facility] Last Admin: 06/25/25 11:06 Dose: 10 mg Documented By: MANDY Benzonatate (Benzonatate 100 Mg Capsule) 100 mg PO TID PRN PRN Reason: Cough Calcium Carbonate (Calcium Carbonate 750 Mg Tab.Chew) 750 mg PO Q4H PRN PRN Reason: Heartburn Dextrose (Dextrose 50 % 25 Gm/50 Ml Syringe) 25 gm IVPUSH Q15M PRN; Protocol PRN Reason: per Hypoglycemia Standing Ord. Enoxaparin Sodium (Enoxaparin Sodium 40 Mg/0.4 Ml Syringe) 40 mg SUBCUT Q24H [facility] Last Admin: 06/24/25 22:51 Dose: 40 mg Documented By: URIEL Famotidine (Famotidine 20 Mg Tablet) 40 mg PO BEDTIME [facility] Fluticasone/Umeclidinium/Vilanterol (Fluticasone/Umeclidinium/Vilanterol 100/62.5/25 Blst.W.Dev) 1 puff INHALE RDAILY [facility] Last Admin: 06/25/25 10:41 Dose: Not Given Documented By: MEÑO Non-Admin Reason: Med Not Available Gabapentin (Gabapentin 400 Mg Capsule) 800 mg PO TID [facility] Last Admin: 06/25/25 11:05 Dose: 800 mg Documented By: MANDY Glucose (Glucose Gel 15 Gm Gel..Gram.) 15 gm PO Q15M PRN; Protocol PRN Reason: per Hypoglycemia Standing Ord. Insulin Human Lispro (Insulin Lispro 100 Unit/Ml 3 Ml Vial) 0 unit SUBCUT QIDACHS [facility]; Protocol Last Admin: 06/25/25 06:38 Dose: 2 unit Documented By: HERMILO Comments: poc 190 Losartan Potassium (Losartan Potassium 50 Mg Tablet) 50 mg PO DAILY [facility]; Protocol Last Admin: 06/25/25 11:05 Dose: 50 mg Documented By: MANDY Magnesium Hydroxide (Milk Of Magnesia 30 Ml Oral.Susp) 30 ml PO DAILY PRN PRN Reason: Constipation Magnesium Oxide (Magnesium Oxide 400 Mg Tablet) 400 mg PO BEDTIME [facility] Melatonin (Melatonin 3 Mg Tablet) 6 mg PO BEDTIME PRN PRN Reason: Insomnia Methylprednisolone Sodium Succinate (Methylprednisolone Sod Succ 40 Mg/Ml Vial) 40 mg IVPUSH Q6H [facility] Last Admin: 06/25/25 05:45 Dose: 40 mg Documented By: HERMILO Metoclopramide HCl (Metoclopramide Hcl 10 Mg Tablet) 10 mg PO QIDACHS [facility] Last Admin: 06/25/25 11:05 Dose: 10 mg Documented By: MANDY Nicotine (Nicotine 21 Mg Patch.Td24) 21 mg TRANSDERMA DAILY [facility] Last Admin: 06/25/25 11:06 Dose: 21 mg Documented By: MANDY Non-Formulary Medication (Linaclotide [Linzess]) 72 mcg PO QAM [facility] Non-Formulary Medication (Simethicone [Anti-Gas Ultra Strength]) 180 mg PO QID PRN PRN Reason: gas Omeprazole (Omeprazole 20 Mg Capsule.Dr) 20 mg PO DAILY@0630 [facility] Last Admin: 06/25/25 11:05 Dose: 20 mg Documented By: MANDY Psyllium Hydrophilic Mucilloid (Psyllium Seed 3.7 Gm Packet) 3.7 gm PO BID [facility] Sitagliptin Phosphate (Sitagliptin Phosphate 100 Mg Tablet) 100 mg PO DAILY [facility] Last Admin: 06/25/25 11:05 Dose: 100 mg Documented By: MANDY Sodium Chloride (0.9 % Sodium Chloride Flush 3 Ml Syringe) 3 ml IVFLUSH QSHIFT [facility] Last Admin: 06/25/25 07:25 Dose: Not Given Documented By: MANDY Non-Admin Reason: IV Running Vitamin D (Cholecalciferol (Vitamin D3) 25 Mcg Tablet) 50 mcg PO DAILY [facility] Last Admin: 06/25/25 11:04 Dose: 50 mcg Documented By: MANDY Labs 06/25/25 03:37 06/25/25 03:37 Labs: Laboratory Results - last 24 hr 06/24/25 06/24/25 06/24/25 13:44 17:38 17:43 MCV 78.0 L MCH 21.8 L MCHC 27.9 L RDW 18.9 H Plt Count 417 H MPV 9.5 Immature Gran % (Auto) 0.4 Neut % (Auto) 66.7 Lymph % (Auto) 20.7 [place] % (Auto) 7.0 Eos % (Auto) 4.3 H Baso % (Auto) 0.9 Lymph # (Auto) 2.7 [place] # (Auto) 0.9 Eos # (Auto) 0.6 H Baso # (Auto) 0.1 Abs Immat Gran (auto) 0.05 H Absolute Neuts (auto) 8.6 H Absolute Nucleated RBC 0.000 Nucleated RBC % (auto) 0.0 Smear Tech's Comments VBG pH 7.37 VBG pCO2 60 VBG pO2 58 VBG HCO3 36 H VBG O2 Saturation 78.0 VBG Base Excess 8.6 Anion Gap 15 Estim Creat Clear Calc 85.0 Estimated GFR > 60 POC Glucose Random Glucose 153 H Lactic Acid Lactic Acid F/U @ 2Hr Lactic Acid F/U @ 4Hr Calcium 10.4 H Total Bilirubin 0.2 AST 14 ALT 12 Alkaline Phosphatase 89 Troponin I High Sens 3.4 4.8 NT-Pro-B Natriuret Pep 28.5 Total Protein 7.2 Albumin 4.6 Urine Color Urine Appearance Urine pH Ur Specific [place] Urine Protein Urine Glucose (UA) Urine Ketones Urine Blood Urine Nitrite Ur Leukocyte Esterase Influenza Type A (PCR) NEGATIVE Influenza Type B (PCR) NEGATIVE RSV RNA Qual (PCR) NEGATIVE SARS-CoV-2 RNA (RT-PCR) NEGATIVE 06/24/25 06/24/25 06/24/25 19:38 22:40 22:46 MCV MCH MCHC RDW Plt Count MPV Immature Gran % (Auto) Neut % (Auto) Lymph % (Auto) [place] % (Auto) Eos % (Auto) Baso % (Auto) Lymph # (Auto) [place] # (Auto) Eos # (Auto) Baso # (Auto) Abs Immat Gran (auto) Absolute Neuts (auto) Absolute Nucleated RBC Nucleated RBC % (auto) Smear Tech's Comments VBG pH VBG pCO2 VBG pO2 VBG HCO3 VBG O2 Saturation VBG Base Excess Anion Gap Estim Creat Clear Calc Estimated GFR POC Glucose 250 H Random Glucose Lactic Acid 4.1 H* Lactic Acid F/U @ 2Hr 6.2 H* Lactic Acid F/U @ 4Hr Calcium Total Bilirubin AST ALT Alkaline Phosphatase Troponin I High Sens NT-Pro-B Natriuret Pep Total Protein Albumin Urine Color Urine Appearance Urine pH Ur Specific [place] Urine Protein Urine Glucose (UA) Urine Ketones Urine Blood Urine Nitrite Ur Leukocyte Esterase Influenza Type A (PCR) Influenza Type B (PCR) RSV RNA Qual (PCR) SARS-CoV-2 RNA (RT-PCR) 06/25/25 06/25/25 06/25/25 00:58 03:37 05:14 MCV 78.1 L MCH 21.4 L MCHC 27.4 L RDW 18.5 H Plt Count 365 MPV 9.7 Immature Gran % (Auto) 1.9 H Neut % (Auto) 91.0 H Lymph % (Auto) 6.0 L [place] % (Auto) 0.6 L Eos % (Auto) 0.0 Baso % (Auto) 0.5 Lymph # (Auto) 0.7 L [place] # (Auto) 0.1 Eos # (Auto) 0.0 Baso # (Auto) 0.1 Abs Immat Gran (auto) 0.21 H Absolute Neuts (auto) 10.1 H Absolute Nucleated RBC 0.000 Nucleated RBC % (auto) 0.0 Smear Tech's Comments VERIFIED VBG pH VBG pCO2 VBG pO2 VBG HCO3 VBG O2 Saturation VBG Base Excess Anion Gap 13 Estim Creat Clear Calc 88.9 Estimated GFR > 60 POC Glucose Random Glucose 186 H Lactic Acid Lactic Acid F/U @ 2Hr Lactic Acid F/U @ 4Hr 2.8 H* Calcium 9.2 D Total Bilirubin 0.1 AST 17 ALT 8 Alkaline Phosphatase 81 Troponin I High Sens NT-Pro-B Natriuret Pep Total Protein 6.5 Albumin 4.2 Urine Color Yellow Urine Appearance Turbid Urine pH 7.5 Ur Specific [place] >= 1.030 H Urine Protein Negative Urine Glucose (UA) 100 H Urine Ketones Negative Urine Blood Negative Urine Nitrite Negative Ur Leukocyte Esterase Negative Influenza Type A (PCR) Influenza Type B (PCR) RSV RNA Qual (PCR) SARS-CoV-2 RNA (RT-PCR) 06/25/25 06/25/25 06:25 08:22 MCV MCH MCHC RDW Plt Count MPV Immature Gran % (Auto) Neut % (Auto) Lymph % (Auto) [place] % (Auto) Eos % (Auto) Baso % (Auto) Lymph # (Auto) [place] # (Auto) Eos # (Auto) Baso # (Auto) Abs Immat Gran (auto) Absolute Neuts (auto) Absolute Nucleated RBC Nucleated RBC % (auto) Smear Tech's Comments VBG pH VBG pCO2 VBG pO2 VBG HCO3 VBG O2 Saturation VBG Base Excess Anion Gap Estim Creat Clear Calc Estimated GFR POC Glucose 190 H Random Glucose Lactic Acid 1.4 Lactic Acid F/U @ 2Hr Lactic Acid F/U @ 4Hr Calcium Total Bilirubin AST ALT Alkaline Phosphatase Troponin I High Sens NT-Pro-B Natriuret Pep Total Protein Albumin Urine Color Urine Appearance Urine pH Ur Specific [place] Urine Protein Urine Glucose (UA) Urine Ketones Urine Blood Urine Nitrite Ur Leukocyte Esterase Influenza Type A (PCR) Influenza Type B (PCR) RSV RNA Qual (PCR) SARS-CoV-2 RNA (RT-PCR) Assessment and Plan (1) COPD with acute exacerbation: Status: Acute (2) Hypoxia: Status: Acute Plan 65-year-old female with a past medical history of hypertension, hyperlipidemia, diabetes, renal cell carcinoma, gastroparesis, GERD, cervicalgia, post laminectomy syndrome, COPD on 2 L of home oxygen; presented to the hospital today with a chief complaint of cough and shortness of breath. Noted to be in acute COPD exacerbation Acute COPD exacerbation: Acute on chronic respiratory failure: has IWOB Goal oxygen saturation 88-93%. Continue nebulizations standing and pain Continue Solu-Medrol Azithromycin empirically CT no PE Acute Lactic acidosis: Likely in the setting of nebulizations. We will monitor. Mild hypercalcemia: Likely in setting of dehydration. Increased oral hydration. Diabetes: Insulin sliding scale hold metformin due to contrast HTN resume home meds HLD statin P neuropathy Gabapentin DVT prophylaxis: Lovenox Code status: Full code Quality Stroke Does the patient have a stroke diagnosis?: No VTE Prior VTE?: No VTE Risk Level:: Medical - moderate - high VTE Device Contraindication: Treatment Not Indicated VTE Drug Contraindication: N/A - Med Ordered
--- NOTE | 2025-06-25 12:35 | MHC.CM.PN ---
CM met with Patient at bedside, in the ED. Patient lives in a tailor with her Significant Other, who will transport at dc. Home/resume [facility] & [employer] for home O2 is the goal and CM has initiated and will follow for dc planning. PCP is Dr.Annabel Nicolas.
[2025-06-25 12:47] LABS: Glucose, Whole Blood 172 mg/dL (60-115)
--- NOTE | 2025-06-25 14:29 | PC.NURSE ---
Assumed care of pt, insulin coverage for lunch tray administered. Speaking in clear full sentences, tachypneic. RT currently at bedside, administering neb. Plan of care ongoing, pt aware of plan for admission.
--- NOTE | 2025-06-25 17:10 | HO.NURTONUR ---
admission for COPD exacerbation, cough, back pain. a&ox4. 2L supp o2 at baseline, currently requiring 3.5L. arrives from home, ambulates independently. tachypneic with mild exertion. 1 ppd smoker. #22 in LAC. pleasant, aware of plan for admission.
[2025-06-25 18:14] LABS: Glucose, Whole Blood 355 mg/dL (60-115)
[2025-06-25 19:46] LABS: Glucose, Whole Blood 202 mg/dL (60-115)
[2025-06-25 20:52] LABS: Glucose, Whole Blood 176 mg/dL (60-115)
[2025-06-25] MEDS: Psyllium seed 3.7 GM PACKET PO (21:19)
[2025-06-25] MEDS: Aspirin Enteric Coated 81 MG TABLET.DR PO (21:21)
--- NOTE | 2025-06-25 22:17 | PC.NURSE ---
standby assist to bathroom, 4L NC maintaining SpO2 88%, mild increase in WOB. titrated back to 3L at rest. call burger in reach, bed alarm on, plan of care ongoing
[2025-06-26] VITALS (10 sets, daily range): BP systolic 125–147; BP diastolic 58–99; PULSE 74–96; RESP 16–20; TEMP 36.2–37; O2SAT 92–99
[2025-06-26] MEDS: 0.9 % Sodium Chloride Flush 3 ML SYRINGE IVFLUSH ×2 (00:03→20:15)
[2025-06-26] MEDS: Albuterol/Iprat 2.5/0.5MG 3 ML AMPUL.NEB INHALE ×3 (07:28→19:54)
[2025-06-26 07:32] LABS: Glucose, Whole Blood 170 mg/dL (60-115)
[2025-06-26] MEDS: Psyllium seed 3.7 GM PACKET PO (08:05)
[2025-06-26] MEDS: Nicotine 21 MG PATCH.TD24 TRANSDERMA (08:06)
[2025-06-26] MEDS: Fluticasone/Umeclidinium/Vilanterol 100/62.5/25 BLST.W.DEV 1 PUFF INHALE (08:17)
[2025-06-26 10:11] LABS: Anion Gap 14 (12-20); Blood Urea Nitrogen 13 mg/dL (9-16); Calcium 9.5 mg/dL (8.4-10.2); Carbon Dioxide 31 mmol/L (22-29); Chloride 99 mmol/L (96-108); Creatinine Clr Calc Pharmacy 82.3; Estimated Glomerular Filt Rate > 60; Magnesium 1.7 mg/dL (1.6-2.6); Potassium 4.8 mmol/L (3.3-5.1); Sodium 139 mmol/L (135-145)
[2025-06-26 10:41] LABS: Glucose, Whole Blood 349 mg/dL (60-115)
--- NOTE | 2025-06-26 11:11 | P.PNIM_ITS ---
Subjective Subjective Date of Service: 06/26/25 Interval History: Patient is feeling better and like to go home however had an episode of multi run of wide complex tachycardia potassium level is 4.8 and magnesium is 1.7 which has been replaced with 2 g right now. She is not having any shortness of breath Physical Exam 2 Exam: Exam: General: AO X 3, no acute distress Resp: dimished breath sounds, IWOB CVS: S1,S2,RRR GI: +BS, NT, no distention Skin: No rash Neuro: motor grossly intact Psych: appropriate affect Vital Signs: Vital Signs: Last Vital Signs Temp 98.1 F 06/26/25 11:00 Pulse 90 06/26/25 11:00 Resp 18 06/26/25 11:00 BP 133/62 06/26/25 11:00 Pulse Ox 92 06/26/25 11:00 O2 Del Method Nasal Cannula 06/26/25 11:00 O2 Flow Rate 3 06/26/25 11:00 Oxygen Flow Rate 2 06/24/25 14:17 BMI result Body Mass Index 23.8 Const: Other: awake alert lungs clear exam otherwise unremarkable Objective Data Active Medications Acetaminophen (Acetaminophen 325 Mg Tablet) 650 mg PO Q6H PRN PRN Reason: Pain, Mild 1-3,fever,headache Albuterol/Ipratropium (Albuterol/Iprat 2.5/0.5mg 3 Ml Ampul.Neb) 3 ml INHALE Q4H PRN PRN Reason: Shortness of Breath/Wheezing Albuterol/Ipratropium (Albuterol/Iprat 2.5/0.5mg 3 Ml Ampul.Neb) 3 ml INHALE RQ6H WHILE AWAKE [facility] Last Admin: 06/26/25 07:28 Dose: 3 ml Documented By: MARIPOSA Albuterol/Ipratropium (Albuterol/Iprat 2.5/0.5mg 3 Ml Ampul.Neb) 3 ml INHALE RQ4H WHILE AWAKE PRN PRN Reason: Shortness of Breath Amlodipine Besylate (Amlodipine Besylate 5 Mg Tablet) 5 mg PO DAILY [facility]; Protocol Last Admin: 06/26/25 08:05 Dose: 5 mg Documented By: MAX Aspirin (Aspirin Enteric Coated 81 Mg Tablet.) 81 mg PO BEDTIME [facility] Last Admin: 06/25/25 21:21 Dose: 81 mg Documented By: COSMO Atorvastatin Calcium (Atorvastatin Calcium 20 Mg Tablet) 20 mg PO DAILY [facility] Last Admin: 06/26/25 08:06 Dose: 20 mg Documented By: MAX Azithromycin (Azithromycin 500 Mg Tablet) 500 mg PO Q24H [facility] Last Admin: 06/26/25 08:06 Dose: 500 mg Documented By: MAX Baclofen (Baclofen 10 Mg Tablet) 10 mg PO TID [facility] Last Admin: 06/26/25 08:05 Dose: 10 mg Documented By: MAX Benzonatate (Benzonatate 100 Mg Capsule) 100 mg PO TID PRN PRN Reason: Cough Calcium Carbonate (Calcium Carbonate 750 Mg Tab.Chew) 750 mg PO Q4H PRN PRN Reason: Heartburn Dextrose (Dextrose 50 % 25 Gm/50 Ml Syringe) 25 gm IVPUSH Q15M PRN; Protocol PRN Reason: per Hypoglycemia Standing Ord. Enoxaparin Sodium (Enoxaparin Sodium 40 Mg/0.4 Ml Syringe) 40 mg SUBCUT Q24H [facility] Last Admin: 06/25/25 21:19 Dose: 40 mg Documented By: COSMO Famotidine (Famotidine 20 Mg Tablet) 40 mg PO BEDTIME [facility] Last Admin: 06/25/25 21:20 Dose: 40 mg Documented By: COSMO Fluticasone/Umeclidinium/Vilanterol (Fluticasone/Umeclidinium/Vilanterol 100/62.5/25 Blst.W.Dev) 1 puff INHALE RDAILY [facility] Last Admin: 06/26/25 08:17 Dose: 1 puff Documented By: MARIPOSA Gabapentin (Gabapentin 400 Mg Capsule) 800 mg PO TID [facility] Last Admin: 06/26/25 08:06 Dose: 800 mg Documented By: MAX Glucose (Glucose Gel 15 Gm Gel..Gram.) 15 gm PO Q15M PRN; Protocol PRN Reason: per Hypoglycemia Standing Ord. Insulin Human Lispro (Insulin Lispro 100 Unit/Ml 3 Ml Vial) 0 unit SUBCUT QIDACHS [facility]; Protocol Last Admin: 06/26/25 08:07 Dose: 2 unit Documented By: MAX Losartan Potassium (Losartan Potassium 50 Mg Tablet) 50 mg PO DAILY [facility]; Protocol Last Admin: 06/26/25 08:05 Dose: 50 mg Documented By: MAX Magnesium Hydroxide (Milk Of Magnesia 30 Ml Oral.Susp) 30 ml PO DAILY PRN PRN Reason: Constipation Magnesium Oxide (Magnesium Oxide 400 Mg Tablet) 400 mg PO BEDTIME [facility] Last Admin: 06/25/25 21:20 Dose: 400 mg Documented By: COSMO Melatonin (Melatonin 3 Mg Tablet) 6 mg PO BEDTIME PRN PRN Reason: Insomnia Last Admin: 06/25/25 21:20 Dose: 6 mg Documented By: COSMO Methylprednisolone Sodium Succinate (Methylprednisolone Sod Succ 40 Mg/Ml Vial) 40 mg IVPUSH BID [facility] Metoclopramide HCl (Metoclopramide Hcl 10 Mg Tablet) 10 mg PO QIDACHS [facility] Last Admin: 06/26/25 08:05 Dose: 10 mg Documented By: MAX Nicotine (Nicotine 21 Mg Patch.Td24) 21 mg TRANSDERMA DAILY [facility] Last Admin: 06/26/25 08:06 Dose: 21 mg Documented By: MAX Non-Formulary Medication (Linaclotide [Linzess]) 72 mcg PO QAM [facility] Omeprazole (Omeprazole 20 Mg Capsule.Dr) 20 mg PO DAILY@0630 [facility] Last Admin: 06/26/25 06:18 Dose: 20 mg Documented By: RADHIKA Psyllium Hydrophilic Mucilloid (Psyllium Seed 3.7 Gm Packet) 3.7 gm PO BID [facility] Last Admin: 06/26/25 08:05 Dose: 3.7 gm Documented By: MAX Sitagliptin Phosphate (Sitagliptin Phosphate 100 Mg Tablet) 100 mg PO DAILY [facility] Last Admin: 06/26/25 08:06 Dose: 100 mg Documented By: MAX Sodium Chloride (0.9 % Sodium Chloride Flush 3 Ml Syringe) 3 ml IVFLUSH QSHIFT [facility] Last Admin: 06/26/25 07:22 Dose: Not Given Documented By: MAX Non-Admin Reason: Previously Administered Vitamin D (Cholecalciferol (Vitamin D3) 25 Mcg Tablet) 50 mcg PO DAILY [facility] Last Admin: 06/26/25 08:06 Dose: 50 mcg Documented By: MAX Labs 06/25/25 03:37 06/26/25 09:39 Labs: Laboratory Results - last 24 hr 06/25/25 06/25/25 06/25/25 12:35 18:08 19:43 Hold Purple Top Anion Gap Estim Creat Clear Calc Estimated GFR POC Glucose 172 H 355 H* 202 H Random Glucose Calcium Magnesium 06/25/25 06/26/25 06/26/25 20:48 07:26 09:38 Hold Purple Top SEE NOTE Anion Gap Estim Creat Clear Calc Estimated GFR POC Glucose 176 H 170 H Random Glucose Calcium Magnesium 06/26/25 06/26/25 09:39 10:37 Hold Purple Top Anion Gap 14 Estim Creat Clear Calc 82.3 Estimated GFR > 60 POC Glucose 349 H Random Glucose 408 H* Calcium 9.5 Magnesium 1.7 Microbiology Microbiology Results: Microbiology 06/24/25 19:38 Blood Culture - Preliminary Blood - Venous No growth after 24 hours. 06/24/25 19:38 Blood Culture - Preliminary Blood - Venous No growth after 24 hours. Assessment and Plan (1) COPD with acute exacerbation: Status: Acute (2) Hypoxia: Status: Acute Plan 65-year-old female with a past medical history of hypertension, hyperlipidemia, diabetes, renal cell carcinoma, gastroparesis, GERD, cervicalgia, post laminectomy syndrome, COPD on 2 L of home oxygen; presented to the hospital today with a chief complaint of cough and shortness of breath. Noted to be in acute COPD exacerbation Acute COPD exacerbation: Acute on chronic respiratory failure: improved Goal oxygen saturation 88-93%. Continue nebulizations standing and pain Continue Solu-Medrol to [address] no PE Tachycardia, wide complex tachy, K 4.8, mag 1.7 give 2 gram, awaiting cardio inpt Acute Lactic acidosis: Likely in the setting of nebulizations. We will monitor. Mild hypercalcemia: Likely in setting of dehydration. Increased oral hydration. Diabetes: Insulin sliding scale hold metformin due to contrast HTN resume home meds HLD statin P neuropathy Gabapentin DVT prophylaxis: Lovenox Code status: Full code Quality Stroke Does the patient have a stroke diagnosis?: No VTE Prior VTE?: No VTE Risk Level:: Medical - moderate - high VTE Device Contraindication: Treatment Not Indicated VTE Drug Contraindication: N/A - Med Ordered
[2025-06-26] MEDS: Magnesium Sulfate/H2O 2 GM/50 ML PIGGYBACK IV (11:36)
[2025-06-26 11:48] LABS: Glucose, Whole Blood 241 mg/dL (60-115)
--- NOTE | 2025-06-26 14:09 | PC.NURSE ---
pt pulled her IV out stating she wants to leave. 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 pt refusing new IV
--- NOTE | 2025-06-26 15:14 | CA_ITS ---
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 Normal LV ejection fraction 55-60% with impaired relaxation filling pattern 2. Calcific aortic and mitral valve changes noted with normal cardiac valvular Dopplers 3. Normal RV systolic pressure 4. No gross pericardial effusion Findings Left Ventricle Normal left ventricular size, thickness, and systolic function. The visually estimated ejection fraction is between 55-60%. Spectral Doppler is indicative of an impaired relaxation filling pattern. E/E prime ratio is between 8 and 15 consistent with indeterminate filling pressures. Wall Motion Rest Echo Findings The inferoseptal wall and basal inferior segment are hypokinetic. All other scored wall segments showed normal motion. Right Ventricle Normal right ventricular cavity size and systolic function. Atria The left atrium is mildly dilated. There is lipomatous hypertrophy of the interatrial septum. There is no evidence of interatrial shunt. The right atrium is mildly dilated. Aortic Valve There is mild calcification of the aortic valve. There is no aortic valve stenosis. There is no aortic valve regurgitation. Mitral Valve There is mild anterior and moderate posterior mitral leaflet thickening. There is trace mitral valve regurgitation. There is no mitral valve stenosis. Pulmonic Valve The pulmonic valve is likely normal. Tricuspid Valve Normal tricuspid valve structure. There is trace tricuspid valve regurgitation. The right ventricular systolic pressure is normal. The right ventricular systolic pressure is 13 mmHg. Indeterminate right atrial pressure. There is no evidence of pulmonary hypertension. Great Vessels All visible segments of the aorta are normal in size. The pulmonary artery was not well visualized. There is no dilatation of the ascending aorta measuring 3.20 cm. Venous The inferior vena cava is normal in size and collapses greater than 50% with inspiration. Pericardium/Pleural There is no evidence of pericardial effusion. Prior Study Comparison Changes noted compared to prior study dated: 05/18/2023. LV function in his marginally improved Measurements 2D Linear Measurements Ao Root: 3.00 2.1-3.5 cm LVOT Diam: 2.00 3.0+(-)1.3 cm 2D Systolic Function EF 4C: 63.40 >55% EF 2C: 52.40 >55% EF BiP: 57.10 >55% Mitral Valve MV VTI: 0.27 MV Pk Juancarlos: 1.10 MV Mn Juancarlos: 0.66 MV Pk Grad: 5.00 MV Mn Grad: 2.00 MV Pk E: 0.96 MV PK A: 1.05 MV Decel Time: 177.00 E/A: 0.90 E'Lateral: 6.96 E'Medial: 5.55 E/E' Med: 17.20 E/E' Lat: 13.70 PHT: 52.00 MVA PHT: 4.23 MVA Continuity: 2.18 Decel [place]: 5.38 Aortic Valve AoV Pk Juancarlos: 1.31 AoV Mn Juancarlos: 0.85 AoV VTI: 0.31 AoV Pk Grad: 7.00 Aov Mn Grad: 3.00 YUDELKA Cont.VTI: 1.91 LVOT LVOT Pk Juancarlos: 0.86 LVOT Mn Juancarlos: 0.53 LVOT VTI: 0.19 LVOT Pk Grad: 3.00 LVOT Mn Grad: 1.00 LVOT Diam: 2.00 LVOT Area: 3.14 Diastolic Function MV Pk E: 0.96 MV Pk A: 1.05 E/A: 0.90 E'Medial: 5.55 E/E' Med: 17.20 E' Laterial: 6.96 E/E' Lat: 13.70 Right Ventricle TAPSE (mm): 21.00 TVS' Juancarlos: 12.00 Tricuspid Valve TR Pk Juancarlos: 1.56 TR Pk Grad: 10.00 RA Press: 3.00 RVSP: 13.00 Great Vessels Aorta Ao Root-2D: 3.00 2.0-3.7 cm Ao Asc: 3.20 2.1-3.4 cm Pulmonary Valve PV Pk Juancarlos: 0.87 Peak PV Grad: 3.00 Updated in Other Vendor System with Status of Final Tulio Mancilla MD electronically signed on 06/26/2025 5:16:15 PM with status of Final
[2025-06-26 16:18] LABS: Glucose, Whole Blood 197 mg/dL (60-115)
[2025-06-26 20:13] LABS: Glucose, Whole Blood 317 mg/dL (60-115)
[2025-06-26] MEDS: Aspirin Enteric Coated 81 MG TABLET.DR PO (20:15)
[2025-06-27 02:58] VITALS: BP 138/64; PULSE 72; RESP 20; TEMP 36.3; O2SAT 95
[2025-06-27 07:12] LABS: Glucose, Whole Blood 198 mg/dL (60-115)
[2025-06-27 07:14] VITALS: BP 150/65; PULSE 74; RESP 16; TEMP 36.6; O2SAT 97
[2025-06-27] MEDS: Fluticasone/Umeclidinium/Vilanterol 100/62.5/25 BLST.W.DEV 1 PUFF INHALE (07:57)
[2025-06-27] MEDS: Albuterol/Iprat 2.5/0.5MG 3 ML AMPUL.NEB INHALE (07:57)
[2025-06-27] MEDS: Nicotine 21 MG PATCH.TD24 TRANSDERMA (08:21)
[2025-06-27] MEDS: Psyllium seed 3.7 GM PACKET PO (08:21)
[2025-06-27] MEDS: 0.9 % Sodium Chloride Flush 3 ML SYRINGE IVFLUSH (08:22)
[2025-06-27 08:32] VITALS: PULSE 77; RESP 16
--- NOTE | 2025-06-27 10:34 | MHC.CM.PN ---
Per ROUNDS discussion, Patient may be ready for dc pending Cardiology Consult. CM will follow.
--- NOTE | 2025-06-27 10:42 | P.CONCA_ITS ---
History of Present Illness History of Present Illness Date of Service: 06/27/25 Requesting physician: [facility] Consult reason: other (Nonsustained ventricular tachycardia) Chief complaint: COPD Narrative: I was consulted to see Nestor in cardiology consultation today as she developed yesterday wide complex tachycardia most consistent with nonsustained ventricular tachycardia. Patient has no symptoms related to it. She has no prior cardiac history. She had a recent CAT scan and done for workup for COPD exacerbation which shows extensive coronary calcification. Patient has no prior history of myocardial infarction. She had an echocardiogram yesterday which shows normal LV ejection fraction but wall motion abnormality in the inferior wall consistent with underlying coronary artery disease. She does not recall ever having any chest pain syndrome. She says she is pretty limited at home and is oxygen dependent at home because of his COPD and has no exertional chest pain although she does have exertional shortness of breath. She has diabetes requiring insulin, gastroparesis, acid reflux disease, hypertension as other risk factors. She came in with COPD exacerbation has been treated and currently he is feeling well and insistent on wanting to go home. She denies any prior history of syncope. Review of Systems 2 Constitutional: Constitutional: Reports no additional constitutional complaints ENT: Reports system reviewed and no additional complaints, except as documented Cardiovascular: Cardiovascular: Reports chest pain with activity, Denies rapid heart rate, Denies lightheadedness, Denies Loss of Consciousness, Denies palpitations and Reports dyspnea on exertion Respiratory: Respiratory: Reports no additional respiratory complaints and Reports dyspnea on exertion Gastrointestinal: Gastrointestinal: Reports no additional gastrointestinal complaints Psychiatric: Psychiatric: Reports no additional psychiatric complaints Endocrine: Endocrine: Reports no additional endocrine complaints and Denies palpitations [facility] Past Medical History Medical History COPD (chronic obstructive pulmonary disease) Chronic hypercapnic respiratory failure Mixed dyslipidemia Heavy cigarette smoker History of pneumonia Gastritis Diabetic gastroparesis Diastolic CHF with preserved left ventricular function, NYHA class 2 Type 2 diabetes mellitus with other diabetic kidney complication Essential hypertension Postlaminectomy syndrome of cervical region Seasonal allergic rhinitis GERD (gastroesophageal reflux disease) Family History Family History Mother Diabetes Sister Diabetes Mental health disorder Brother Diabetes Father HTN (hypertension) Surgical History Surgical History H/O cervical discectomy History of esophagogastroduodenoscopy (EGD) Hx of colonoscopy Social History Social History Household Members: Spouse Housing: Unknown / Unable to assess Housing Other:: pt unable to recall Are you a primary district manager primary care sales to a significant other at home: No Do you presently have visiting nurse or other home services: Yes ([facility] and [facility] but pt states they have not been coming.) Alcohol intake: current Alcohol intake frequency: does not drink 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 Patient Tobacco Use Status: Current everyday Tobacco user Tobacco use type: Cigarette Cigarette Packs Per Day: 1 Cigarettes Per Day: 20.0 Years Smoked: 51 e-Cigarette/Vaping Use: Never Used Second Hand Smoke Exposure: Yes Advance Directives Date on File: 08/02/23 service: No Current occupational status: unemployed and disabled Gender identity: Female Cognitive needs: No Hearing needs: No Vision needs: Yes Meds Allergies Allergy/AdvReac Type Severity Reaction Status Date / Time amoxicillin (AMOXICILLIN) Allergy Intermediate RASH Verified 06/24/25 13:01 Active Medications: Current Medications Acetaminophen (Acetaminophen 325 Mg Tablet) 650 mg PO Q6H PRN PRN Reason: Pain, Mild 1-3,fever,headache Albuterol/Ipratropium (Albuterol/Iprat 2.5/0.5mg 3 Ml Ampul.Neb) 3 ml INHALE Q4H PRN PRN Reason: Shortness of Breath/Wheezing Albuterol/Ipratropium (Albuterol/Iprat 2.5/0.5mg 3 Ml Ampul.Neb) 3 ml INHALE RQ6H WHILE AWAKE [facility] Last Admin: 06/27/25 07:57 Dose: 3 ml Albuterol/Ipratropium (Albuterol/Iprat 2.5/0.5mg 3 Ml Ampul.Neb) 3 ml INHALE RQ4H WHILE AWAKE PRN PRN Reason: Shortness of Breath Amlodipine Besylate (Amlodipine Besylate 5 Mg Tablet) 5 mg PO DAILY [facility]; Protocol Last Admin: 06/27/25 08:20 Dose: 5 mg Aspirin (Aspirin Enteric Coated 81 Mg Tablet.Dr) 81 mg PO BEDTIME [facility] Last Admin: 06/26/25 20:15 Dose: 81 mg Atorvastatin Calcium (Atorvastatin Calcium 20 Mg Tablet) 20 mg PO DAILY [facility] Last Admin: 06/27/25 08:21 Dose: 20 mg Azithromycin (Azithromycin 500 Mg Tablet) 500 mg PO Q24H [facility] Last Admin: 06/27/25 08:20 Dose: 500 mg Baclofen (Baclofen 10 Mg Tablet) 10 mg PO TID [facility] Last Admin: 06/27/25 08:20 Dose: 10 mg Benzonatate (Benzonatate 100 Mg Capsule) 100 mg PO TID PRN PRN Reason: Cough Calcium Carbonate (Calcium Carbonate 750 Mg Tab.Chew) 750 mg PO Q4H PRN PRN Reason: Heartburn Dextrose (Dextrose 50 % 25 Gm/50 Ml Syringe) 25 gm IVPUSH Q15M PRN; Protocol PRN Reason: per Hypoglycemia Standing Ord. Enoxaparin Sodium (Enoxaparin Sodium 40 Mg/0.4 Ml Syringe) 40 mg SUBCUT Q24H [facility] Last Admin: 06/26/25 20:14 Dose: 40 mg Famotidine (Famotidine 20 Mg Tablet) 40 mg PO BEDTIME [facility] Last Admin: 06/26/25 20:15 Dose: 40 mg Fluticasone/Umeclidinium/Vilanterol (Fluticasone/Umeclidinium/Vilanterol 100/62.5/25 Blst.W.Dev) 1 puff INHALE RDAILY [facility] Last Admin: 06/27/25 07:57 Dose: 1 puff Gabapentin (Gabapentin 400 Mg Capsule) 800 mg PO TID [facility] Last Admin: 06/27/25 08:20 Dose: 800 mg Glucose (Glucose Gel 15 Gm Gel..Gram.) 15 gm PO Q15M PRN; Protocol PRN Reason: per Hypoglycemia Standing Ord. Insulin Human Lispro (Insulin Lispro 100 Unit/Ml 3 Ml Vial) 0 unit SUBCUT QIDACHS [facility]; Protocol Last Admin: 06/27/25 08:22 Dose: 2 unit Losartan Potassium (Losartan Potassium 50 Mg Tablet) 50 mg PO DAILY [facility]; Protocol Last Admin: 06/27/25 08:21 Dose: 50 mg Magnesium Hydroxide (Milk Of Magnesia 30 Ml Oral.Susp) 30 ml PO DAILY PRN PRN Reason: Constipation Magnesium Oxide (Magnesium Oxide 400 Mg Tablet) 400 mg PO BEDTIME [facility] Last Admin: 06/26/25 20:15 Dose: 400 mg Melatonin (Melatonin 3 Mg Tablet) 6 mg PO BEDTIME PRN PRN Reason: Insomnia Last Admin: 06/26/25 20:14 Dose: 6 mg Methylprednisolone Sodium Succinate (Methylprednisolone Sod Succ 40 Mg/Ml Vial) 40 mg IVPUSH BID [facility] Last Admin: 06/27/25 08:22 Dose: 40 mg Metoclopramide HCl (Metoclopramide Hcl 10 Mg Tablet) 10 mg PO QIDACHS [facility] Last Admin: 06/27/25 08:21 Dose: 10 mg Metoprolol Tartrate (Metoprolol Tartrate 25 Mg Tablet) 25 mg PO BID [facility]; Protocol Last Admin: 06/27/25 08:21 Dose: 25 mg Nicotine (Nicotine 21 Mg Patch.Td24) 21 mg TRANSDERMA DAILY [facility] Last Admin: 06/27/25 08:21 Dose: 21 mg Nicotine Polacrilex (Nicotine Polacrilex 2 Mg Gum) 2 mg BUCCAL Q1H PRN PRN Reason: Nicotine Cravings Last Admin: 06/26/25 20:14 Dose: 2 mg Non-Formulary Medication (Linaclotide [Linzess]) 72 mcg PO QAM [facility] Omeprazole (Omeprazole 20 Mg Capsule.Dr) 20 mg PO DAILY@0630 [facility] Last Admin: 06/27/25 06:14 Dose: 20 mg Psyllium Hydrophilic Mucilloid (Psyllium Seed 3.7 Gm Packet) 3.7 gm PO BID [facility] Last Admin: 06/27/25 08:21 Dose: 3.7 gm Sitagliptin Phosphate (Sitagliptin Phosphate 100 Mg Tablet) 100 mg PO DAILY [facility] Last Admin: 06/27/25 08:20 Dose: 100 mg Sodium Chloride (0.9 % Sodium Chloride Flush 3 Ml Syringe) 3 ml IVFLUSH QSHIFT [facility] Last Admin: 06/27/25 08:22 Dose: 3 ml Vitamin D (Cholecalciferol (Vitamin D3) 25 Mcg Tablet) 50 mcg PO DAILY [facility] Last Admin: 06/27/25 08:21 Dose: 50 mcg Home Medications ?Medication ?Instructions ?Recorded ?Confirmed ?Last Taken ?Type aspirin 81 mg tablet,delayed 81 mg PO BEDTIME 01/10/21 06/25/25 2 Days Ago History release (Adult Low Dose Aspirin) ~ fluticasone fur. 100 mcg-umeclid 1 ea inhalation DAILY 02/05/25 06/25/25 2 Days Ago History 62.5 mcg-vilant 25 mcg ~05/14/25 inhalat.powder (Trelegy Ellipta) psyllium husk 0.52 gram capsule 1.04 g PO BID 04/02/25 06/25/25 2 Days Ago History (Fiber Laxative (psyllium husk)) ~ sitagliptin phosphate 100 mg 100 mg PO DAILY 04/02/25 06/25/25 2 Days Ago History tablet (Januvia) ~05/14/25 azithromycin 250 mg tablet 500 mg PO TUTHSA 05/16/25 1 08/25/24 05/13/25 History Held on 05/17/25. Instructions: Resume on 05/21/25. simethicone 180 mg capsule 180 mg PO QID PRN gas 06/2506/25/25 Unknown History (Anti-Gas Ultra Strength) Physical Exam 2 Vital Signs: Vital Signs: Last Vital Signs Temp 97.8 F 06/27/25 07:14 Pulse 77 06/27/25 08:32 Resp 16 06/27/25 08:32 BP 150/65 H 06/27/25 07:14 Pulse Ox 97 06/27/25 07:14 O2 Del Method Nasal Cannula 06/27/25 07:14 O2 Flow Rate 2 06/27/25 07:14 Oxygen Flow Rate 2 06/24/25 14:17 BMI result Body Mass Index 23.8 Const: General: cooperative, comfortable, no acute distress, alert and awake Nutritional Appearance: average body habitus Orientation/consciousness: p atient oriented x3 HEENT: Head: Yes normocephalic and Yes atraumatic Neck: Neck: Yes trachea midline, Yes supple and Yes no JVD Resp: Effort & Inspection: normal respiratory effort Auscultation: wheezes and diminished lung sounds Cardio: Jugular venous distension: no JVD Rate: regular rate Rhythm: r egular rhythm Heart sounds: S1 normal heart sound present, S2 normal heart sound present, no click, no gallops, no murmurs and no rubs GI: Auscultation: normal bowel sounds Skin: General skin exam: no rashes or lesions noted Neuro: General: patient oriented x3 and no focal motor deficits Extrem: General: Yes no clubbing, cyanosis or edema Psych: Appearance: grossly normal Affect: Anxious affect present Objective Labs and Meds 06/25/25 03:37 06/26/25 09:39 Lab results: Laboratory Results - last 24 hr 06/26/25 06/26/25 06/26/25 11:45 16:12 20:09 POC Glucose 241 H 197 H 317 H 06/27/25 07:02 POC Glucose 198 H Assessment and Plan (1) NSVT (nonsustained ventricular tachycardia): Status: Acute Asymptomatic nonsustained ventricular tachycardia in this middle-aged woman with evidence of significant coronary calcification on CT scan of the chest done for pulmonary reasons suggestive of underlying coronary artery disease with echocardiogram showing normal EF but wall motion abnormality suggestive of underlying coronary artery disease. We discussed the findings with the patient. She was surprised although understands but was more focused on wanting to go home. At this point time she would need further workup for myocardial ischemia. I would suggest her to undergo outpatient vasodilating myocardial perfusion imaging in 2 weeks after her lung condition has improved. I will meanwhile start her on aspirin as well as high-intensity statin therapy. Also give him metoprolol to suppress cardiac arrhythmias. Will set up for outpatient Holter monitor. Continue risk factor modification with complete smoking cessation was advised. She says she probably would not be able to do that. Continue aggressive diabetes management. Will sign of the case, patient can be discharged today for outpatient workup. Procedures Date of Service Date of Service: 06/27/25
--- NOTE | 2025-06-27 10:49 | P.DS_ITS ---
DS: Providers Provider Date of Service: 06/27/25 Date of admission: 06/24/25 20:54 Date of discharge: 06/27/25 Primary care physician: Magalie Nicolas MD Consults: 06/26/25 09:24 Consult to Cardiology Routine Consulting Provider: [facility] [place] [facility] Reason for consultation: wide complex DS: Diagnosis Discharge Diagnosis (1) NSVT (nonsustained ventricular tachycardia): Status: Acute DS: Summary Hospital Course Hospital Course: Admission HPI Chief Complaint: cough 65-year-old female with a past medical history of hypertension, hyperlipidemia, diabetes, renal cell carcinoma, gastroparesis, GERD, cervicalgia, post laminectomy syndrome, COPD on 2 L of home oxygen; presented to the hospital today with a chief complaint of cough and shortness of breath. Patient having cough without any sputum production. Cough is unrelenting. Has been having posttussive chest wall discomfort. Denies any chest pain per se. Denies any lightheadedness or dizziness. Patient denies any. Denies any urinary symptoms. Review of all other systems is negative except mentioned above ER course: Per ER team, patient on presentation noted to be short of breath; has diminished breath sounds; on ambulation patient was desaturated to high 80s; not in respiratory distress. Given nebulizations and steroids. Hospial coruse Patient presented shortness of breath and found to be hypoxic, xray was negative, CT chest was negative show no PE 2. Similar right lower lobe parenchymal scarring with multiple similar pulmonary nodules. Recommend repeat CT chest in 12 months to ensure continued stability. She has made a quicker than expected recovery and will be discharged with prednisone for a total of 5 days 3. Severe coronary artery calcification. Patient was treated with IV steroid, bronchodilators by Neb and made a rapid than expected recovery. Over the course of hospitalization, she was noted to have an episode of 23 beat of ventricular tachycardia... Echo showed ane EF of 55 to 60%, he inferoseptal wall and basal inferior segment are hypokinetic. She was initiated on Metoprolol and had not had any further episode within 24 hours, she was seen by cardiology and require further testing on outpatient basis. Further more she will be treated with ASA, and high intensity statin starting with Lipitor 40 mg daily Time Attestation Discharge Coordination Time (in mins): 45 Quality: Safe Use of Opioids Does Pt have an Active Cancer Diagnosis on the Problem List?: No Quality: Stroke Does the patient have a stroke diagnosis?: No Physical Exam Vital Signs: Vital Signs: Last Vital Signs Temp 97.8 F 06/27/25 07:14 Pulse 77 06/27/25 08:32 Resp 16 06/27/25 08:32 BP 150/65 H 06/27/25 07:14 Pulse Ox 97 06/27/25 07:14 O2 Del Method Nasal Cannula 06/27/25 07:14 O2 Flow Rate 2 06/27/25 07:14 Oxygen Flow Rate 2 06/24/25 14:17 BMI result Body Mass Index 23.8 DS: Data Data Completed and Pending Labs on day of discharge: Laboratory Results - last 24 hr 06/26/25 06/26/25 06/26/25 11:45 16:12 20:09 POC Glucose 241 H 197 H 317 H 06/27/25 07:02 POC Glucose 198 H Preliminary micro results at discharge 06/24/25 19:38 Blood Culture - Preliminary Blood - Venous No growth after 48 hours. 06/24/25 19:38 Blood Culture - Preliminary Blood - Venous No growth after 48 hours. Discharge Plan Discharge Anticipated Discharge Date/Time: 06/27/25 09:33 Patient Disposition: Home, Self-Care Discharge Diagnosis: Acute hypoxic respiratory failure due to copd exacerbation Referrals: Magalie Nicolas MD [Primary Care Provider, Internal Medicine] - 1 Week Tulio Mancilla MD [Physician, Cardiology] - 2 Weeks Discharge Medications: New rosuvastatin 20 mg tablet 20 mg PO DAILY Qty: 90 0RF metoprolol tartrate 25 mg Tablet 25 mg PO BID Qty: 180 0RF Protocol: Hold for SBP/HR < HOLD for SBP < : 90 HOLD for HR < : 60 prednisone 20 mg tablet 40 mg PO DAILY Qty: 4 0RF Continued baclofen 10 mg tablet 10 mg PO TID 30 Days Qty: 90 6RF gabapentin 800 mg tablet 800 mg PO TID 30 Days Qty: 90 6RF amlodipine 5 mg tablet 5 mg PO DAILY Qty: 90 1RF cholecalciferol (vitamin D3) 50 mcg (2,000 unit) capsule 50 mcg PO DAILY Qty: 90 1RF (DME) lancets [FreeStyle Lancets] 28 gauge misc See Rx Instructions .Route Qty: 100 5RF Rx Instructions: As directed twice a day AC (DME) FreeStyle Lite Strips Strip See Rx Instructions .Route Qty: 100 0RF Rx Instructions: check fasting blood sugar twice a day before meals metformin 1,000 mg tablet 1,000 mg PO BID Qty: 180 3RF magnesium oxide 400 mg magnesium capsule 400 mg PO BEDTIME Qty: 30 0RF (DME) FreeStyle Cristian 2 [place] Misc See Rx Instructions .Route Qty: 1 0RF Rx Instructions: test blood sugar 4 times per day (DME) FreeStyle Cristian 2 Sensor Kit See Rx Instructions .Route Qty: 6 3RF Rx Instructions: Test blood sugar 4 times per day (DME) blood-glucose meter [FreeStyle Lite Meter] Kit See Rx Instructions .Route Qty: 1 0RF Rx Instructions: As directed twice a day before meals losartan 50 mg tablet 50 mg PO DAILY Qty: 90 1RF psyllium husk [Fiber Laxative (psyllium husk)] 0.52 gram capsule 1.04 g PO BID Januvia 100 mg tablet 100 mg PO DAILY Trelegy Ellipta 100-62.5-25 mcg blister with device 1 ea INHALATION DAILY Soothe and Cool Inzo Barrier 5 % cream 1 appl topical QID PRN (Reason: skin irritation) Qty: 118.29 0RF azithromycin 250 mg tablet 500 mg PO TUTHSA nicotine 21 mg/24 hr Patch 24 Hour 21 mg transdermal DAILY Qty: 7 0RF albuterol sulfate [Ventolin HFA] 90 mcg/actuation HFA aerosol inhaler 2 puff inhalation Q6H PRN (Reason: shortness of breath or wheezing) Qty: 6.7 0RF simethicone [Anti-Gas Ultra Strength] 180 mg capsule 180 mg PO QID PRN (Reason: gas) aspirin [Adult Low Dose Aspirin] 81 mg tablet,delayed release (DR/EC) 81 mg PO BEDTIME famotidine 40 mg tablet 40 mg PO BEDTIME Qty: 90 2RF metoclopramide HCl [Reglan] 10 mg tablet 10 mg PO QIDACHS Qty: 180 6RF esomeprazole magnesium 40 mg capsule,delayed release(DR/EC) 40 mg PO DAILY Qty: 30 6RF Linzess 72 mcg capsule 72 mcg PO QAM Qty: 30 6RF Discontinued rosuvastatin 5 mg tablet 5 mg PO DAILY Qty: 90 1RF Discharge Orders: Discharge Order (Routine); Ordered 06/27/25 Ordered By: Mumtaz Forman Diet: Diabetic diet Activity on Discharge: As tolerated Stand Alone Forms: Patient Portal Discharge page Print Language: Urdu Care Plan Goals: recovery from copd exacerbartion and ventriculary tachycardia Health Concerns: copd exacerbartion and ventriculary tachycard Plan of Treatment: Take Prednisone and use inhalers as directed follow up with your Doctor in a week avod smoking Take Metoprolol, aspirin as before, Rosuvastatin dose increased to 20 mg for hear protection, follow up with Dr. Mancilla heart Doctor Assessment: see above
--- NOTE | 2025-06-27 11:14 | MHC.CM.PN ---
Patient has been medically cleared for dc to home today, self care.
[2025-06-27 11:35] LABS: Glucose, Whole Blood 210 mg/dL (60-115)
[2025-06-27 11:39] VITALS: BP 132/59; PULSE 71; RESP 16; TEMP 36.2; O2SAT 97
--- NOTE | 2025-06-27 17:23 | P.CDIM_ITS ---
PROVIDER RESPONSE TEXT: To clarify, the appropriate diagnosis supported by the clinical indicators: Diabetes mellitus Type 2 with hyperglycemia QUERY TEXT: PHYSICIAN'S DOCUMENTATION REQUEST Date of Query: 06/26/2025 12:23 PM EST Patient Name: Maria Elena Kingston Admit Date: 06/25/2025 Dear Mumtaz Forman MD, A review of the medical record indicates additional documentation may be needed. Please review below and update the documentation accordingly. Clinical Indicators: LABS: POC glucose 355 H 349 H DM Type 2 Insulin Based on the above is there a diagnosis that correlates with these findings? Diabetes mellitus Type 2 with hyperglycemia Labs indicate a diagnosis of (please specify) Other (explain) Clinically unable to determine (explain) Thank you, Briana Cordero, CCS, CDIS Use of terms such as suspected, likely, concern for, or probable (associated with a specific diagnosis that is being evaluated, monitored, or treated as if it exists) are acceptable and can be coded in the inpatient setting, when documented at the time of discharge. Please use your independent medical judgment in providing your response. THIS QUERY IS PART OF THE PERMANENT MEDICAL RECORD
== END 2025-06-27 13:21 | disposition home or self-care (01) | DRG 140 ==
LOC: HO.ED 21:01 → HO.EDOVER 21:01 → HO.IMC 06-25 16:20
PROVIDERS: Physician Assistant; Admitting Provider Hospitalist; Emergency Provider Emergency Medicine Emergency Medical Services; PCP Internal Medicine; Visit Provider Internal Medicine
DX: J44.1 Chronic obstructive pulmonary disease with (acute) exacerbation (principal); J96.21 Acute and chronic respiratory failure with hypoxia; E87.21 Acute metabolic acidosis; I50.32 Chronic diastolic (congestive) heart failure; I47.10 Supraventricular tachycardia, unspecified; E83.52 Hypercalcemia; E86.0 Dehydration; I25.10 Atherosclerotic heart disease of native coronary artery without angina pectoris; E11.65 Type 2 diabetes mellitus with hyperglycemia; I11.0 Hypertensive heart disease with heart failure; E78.5 Hyperlipidemia, unspecified; E11.42 Type 2 diabetes mellitus with diabetic polyneuropathy; Z20.822 Contact with and (suspected) exposure to COVID-19; Z99.81 Dependence on supplemental oxygen; Z79.82 Long term (current) use of aspirin; Z79.84 Long term (current) use of oral hypoglycemic drugs; Z79.899 Other long term (current) drug therapy
CPT/HCPCS: 36415; 71045; 71275; 80048; 80053; 81003; 82803; 82947; 83605; 83735; 83880; 84484; 85025; 87040; 87637; 93005; 93306; 94640; 99285; J0456; J1171; J1650; J2405; J2919; J3475; J7120; Q9957; Q9967

== ENCOUNTER → 2025-06-24 12:59 | Outpatient (BNV) | payer OTHER, SELFPAY | PROVIDERS: Emergency Provider Emergency Medicine Emergency Medical Services; PCP Internal Medicine; Visit Provider Radiology Diagnostic Radiology | DX: R05.9 Cough, unspecified (principal) | CPT/HCPCS: 71045 ==

== ENCOUNTER → 2025-06-24 13:01 | Outpatient (BNV) | payer OTHER, SELFPAY | PROVIDERS: Admitting Provider Hospitalist; Emergency Provider Emergency Medicine Emergency Medical Services; PCP Internal Medicine; Visit Provider Internal Medicine Cardiovascular Disease | DX: R00.0 Tachycardia, unspecified (principal) | CPT/HCPCS: 93010 ==

== ENCOUNTER 2025-06-24 20:54 | Outpatient (BNV) | payer OTHER, SELFPAY | END 2025-06-26 15:14 | PROVIDERS: Admitting Provider Hospitalist; Emergency Provider Emergency Medicine Emergency Medical Services; PCP Internal Medicine; Visit Provider Internal Medicine Cardiovascular Disease | DX: I34.81 Nonrheumatic mitral (valve) annulus calcification (principal); I35.8 Other nonrheumatic aortic valve disorders | CPT/HCPCS: 93306 ==

== ENCOUNTER 2025-06-24 20:54 | Outpatient (BNV) | payer OTHER, SELFPAY | END 2025-06-25 00:02 | PROVIDERS: Admitting Provider Hospitalist; Emergency Provider Emergency Medicine Emergency Medical Services; PCP Internal Medicine; Visit Provider Student in an Organized Health Care Education/Training Program | DX: I25.84 Coronary atherosclerosis due to calcified coronary lesion (principal); R91.8 Other nonspecific abnormal finding of lung field | CPT/HCPCS: 71275 ==

== ENCOUNTER → 2025-06-24 20:54 | Outpatient (BNV) | payer OTHER, SELFPAY | PROVIDERS: Admitting Provider Hospitalist; Emergency Provider Emergency Medicine Emergency Medical Services; PCP Internal Medicine; Visit Provider Internal Medicine Cardiovascular Disease | DX: I47.29 Other ventricular tachycardia (principal) | CPT/HCPCS: 99222 ==

== ENCOUNTER → 2025-06-24 20:54 | Outpatient (BNV) | payer OTHER, SELFPAY | PROVIDERS: Admitting Provider Hospitalist; Emergency Provider Emergency Medicine Emergency Medical Services; PCP Internal Medicine; Visit Provider Internal Medicine | DX: J44.1 Chronic obstructive pulmonary disease with (acute) exacerbation (principal); R09.02 Hypoxemia | CPT/HCPCS: 99232 ==

== ENCOUNTER 2025-07-20 12:02 | Outpatient (AMB) | payer OTHER, SELFPAY ==
[2025-07-20 12:06] VITALS: BP 131/54; PULSE 87; BMI 23.4
--- NOTE | 2025-07-20 12:06 | A.OFFVIS_ITS ---
Vital Signs 07/20/25 12:06 Height 4 ft 9 in Weight 108 lb 0.424 oz BMI 23.4 BP 131/54 L Blood Pressure Location Lt brachial Position Sitting Pulse 87 Intake Visit Reasons: 3 Months follow up gastoparesis, GERD, CIC Intake Note: Maria Elena returns in follow up of GERD and CIC. CC: Patient reports occasional nausea and loose stools. Denies other GI symptoms today. 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 Allergies amoxicillin (AMOXICILLIN) Allergy (Intermediate, Verified 07/20/25 12:10) RASH HPI HPI 3 Months follow up gastoparesis, GERD, CIC: Details: Assessment & Plan (1) Gastroparesis: Code(s): K31.84 - Gastroparesis Category: Medical (2) GERD (gastroesophageal reflux disease): Code(s): K21.9 - Gastro-esophageal reflux disease without esophagitis Category: Medical Qualifiers: Esophagitis presence: without esophagitis Qualified Code(s): K21.9 - Gastro-esophageal reflux disease without esophagitis (3) Chronic idiopathic constipation: Code(s): K59.04 - Chronic idiopathic constipation Category: Medical (4) Fatigue: Code(s): R53.83 - Other fatigue Category: Medical Plan SHE IS HERE TODAY WITH HER SIGNIFICANT OTHER WHO IS HELPFUL. Her current GI regimen consists of metoclopramide 10 mg 4 times a day, as omeprazole 40 mg in the morning and famotidine at night, fiber therapy and simethicone. At the last visit we added Linzess 72 micro g. - The patient is a 64-year-old female presenting with complaints of decreased appetite and for follow-up for diabetic gastroparesis, constipation, GERD and bloating. - Her reduced appetite is influenced by changes in her respiratory condition along with her gastroparesis. She is already at the maximum dose of Reglan 10 mg 4 times a day, so instead I recommend that she make healthful snacks and eat smaller more frequent meals. This also would help with the work of breathing that is frequently challenging when a COPD patient tries to eat a large meal. - No confirmed diagnosis of right-sided heart failure or pericardial effusion exists despite its presence in past records, and she has not undergone comprehensive cardiac evaluation. I have recommended that they call our cardiology service as it appears that they had an appointment in March that was missed. - The recurrence of upper abdominal discomfort is associated with dietary choices, particularly after eating fatty foods like ribs. - She restarted Linzess 72 micro g, which has improved bowel regularity and she does not feel we need to make any dose adjustment. - Her medical history includes renal cancer with successful ablation and recent necessity for supplemental oxygen due to worsening of COPD. - The patient struggles with hypoxia and hypercapnia, which compounds her fatigue and influences her appetite. Her significant other says that she is not eating as well as she used to. This is likely multifactorial and I do not think this anything for we can do from a GI standpoint. I do encourage her to follow-up with cardiology as this could be contributing to her feeling of early satiety if she does not fact have right- sided heart failure. I do not see any echocardiogram on file for her so I am uncertain how this diagnosis got to her history. I think it really needs to be clarified. She would not be eligible for any GI procedures given her severe respiratory status as the risk would be too high for sedation. Return office visit in 6 months Orders: Orders TSH reflex Free T4 Today K59.04 - Chronic idiopathic constipation, R53.83 - Other fatigue Medications: Refilled famotidine 40 mg PO BEDTIME 90 tabs 2RF metoclopramide HCl (Reglan) 10 mg PO QIDACHS 180 tabs 6RF K31.84 - Gastroparesis esomeprazole magnesium 40 mg PO DAILY 30 caps 6RF LABS Laboratory Tests 05/01/25 10:10 TSH 0.55 TODAYS VISIT [facility] Medical History COPD (chronic obstructive pulmonary disease) Chronic hypercapnic respiratory failure Mixed dyslipidemia Heavy cigarette smoker History of pneumonia Gastritis Diabetic gastroparesis Diastolic CHF with preserved left ventricular function, NYHA class 2 Type 2 diabetes mellitus with other diabetic kidney complication Essential hypertension Postlaminectomy syndrome of cervical region Seasonal allergic rhinitis GERD (gastroesophageal reflux disease) Surgical History H/O cervical discectomy History of esophagogastroduodenoscopy (EGD) Hx of colonoscopy Family History Mother Diabetes Sister Diabetes Mental health disorder Brother Diabetes Father HTN (hypertension) Social History Household Members: Spouse Housing: Unknown / Unable to assess Housing Other:: pt unable to recall Are you a primary healthcare administrator to a significant other at home: No Do you presently have visiting nurse or other home services: Yes ([facility] and [employer] but pt states they have not been coming.) Alcohol intake: current Alcohol intake frequency: does not drink 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 Patient Tobacco Use Status: Current everyday Tobacco user Tobacco use type: Cigarette Cigarette Packs Per Day: 1 Cigarettes Per Day: 20.0 Years Smoked: 51 e-Cigarette/Vaping Use: Never Used Second Hand Smoke Exposure: Yes Advance Directives Date on File: 08/02/23 service: No Current occupational status: unemployed and disabled Gender identity: Female Cognitive needs: No Hearing needs: No Vision needs: Yes Review of Systems Const Denies fatigue, Denies fever(s), Denies night sweats, Denies poor appetite and Reports weight loss Eyes Details: Glasses Reports requires corrective lenses ENT Reports Normal hearing present, Denies dental pain, Denies dysphagia, Denies hearing loss, Denies mouth pain, Denies odynophagia, Denies throat swelling, Denies tongue swelling and Reports other (Dentition adequate) Card Reports no additional complaints and Reports dyspnea on exertion Resp Reports cough and Reports dyspnea on exertion GI Details: Denies abdominal pain, Denies melena, Reports bloating, Denies hematochezia, Reports constipation, Denies GI cramping, Denies dysphagia, Denies excessive flatus, Reports early satiety, Reports heartburn, Denies diarrhea, Denies nausea, Denies odynophagia, Denies vomiting and Denies hematemesis Skin/Breast Denies pruritus, Denies lesions, Denies rash and Denies jaundice Neuro Reports Normal hearing present and Denies Abnormal speech present Endo Denies fatigue Aller/Immun Denies throat swelling and Denies tongue swelling Physical Exam Const General: cooperative, no acute distress, well developed and well groomed Nutritional Appearance: average body habitus and well nourished Orientation/consciousness: oriented to person, oriented to place and oriented to time Limitations: No language barrier HEENT Head: Yes normocephalic and Yes atraumatic Eyes General: appearance normal, both eyes and all related structures Pupils: Equal, round and reactive pupils present Neck Neck: Yes normal visual inspection and Yes no lymphadenopathy Thyroid: Thyroid normal Resp Effort & Inspection: normal respiratory effort and able to speak in complete sentences Auscultation: clear to auscultation bilaterally Cardio Rate: regular rate Rhythm: regular rhythm Heart sounds: Normal, physiologic split S2 sound present Peripheral pulses: radial pulses present and posterior tibial pulses present GI Inspection: Yes distended and No Abdominal panniculus present Palpation (GI): Soft to palpation, nontender, no guarding, not rigid and No hepatosplenomegaly present Percussion: Yes normal to percussion Auscultation: normal bowel sounds Rectal Exam - Female: deferred Skin General skin exam: no rashes or lesions noted, turgor normal, skin not dry, no jaundice, No spider nevi and no striae Rashes: no rashes Nails: normal Neuro General: oriented to person, oriented to place and oriented to time Cranial nerves: Yes Equal, round and reactive pupils present and Yes Normal hearing present Speech: No Abnormal speech present Extrem General: Yes normal to inspection, No clubbing, No cyanosis and No edema Psych Appearance: grossly normal and well kempt Mental Status: other Speech and movement: Slowed speech present (Psych) Affect: normal affect Attitude: cooperative Thought process: not confabulating and Impoverished thought process present Thought content: Normal thought content present Insight: Poor insight present (Psych) Judgement: Poor judgement present (Psych) Assessment & Plan Assessment & Plan (1) Gastroparesis: Code(s): K31.84 - Gastroparesis Category: Medical (2) GERD (gastroesophageal reflux disease): Code(s): K21.9 - Gastro-esophageal reflux disease without esophagitis Category: Medical Qualifiers: Esophagitis presence: without esophagitis Qualified Code(s): K21.9 - Gastro-esophageal reflux disease without esophagitis (3) Chronic idiopathic constipation: Code(s): K59.04 - Chronic idiopathic constipation Category: Medical Plan Her current GI regimen consists of metoclopramide 10 mg 4 times a day, as omeprazole 40 mg in the morning and famotidine at night, fiber therapy, simethicone and Linzess 72 micro g.. She is here today with her significant other who is supportive. Subjective Patient presents to discuss her ongoing gastroparesis, GERD, and constipation and obtain and medication refills. She asks about ?colitis.? I explained colitis as a nonspecific term for colon inflammation with multiple potential causes and clarified she does not have ulcerative colitis. She typically deals more with constipation rather than diarrhea. Currently reports stomach is ?pretty good,? eating okay, and bowel movements okay, though overall appetite is reduced compared to prior years and she struggles to finish smaller portions. Recent hospitalizations for respiratory issues over the fall/winter; patient affirms having received a flu shot during hospitalization. New medications since hospitalization include metoprolol and a short course of clindamycin; medications are dispensed in blister packs. Relevant Past Medical, Social, and Family History Chronic respiratory disease/COPD. Diabetic gastroparesis. History of constipation. Objective - BMI trend reviewed: approximately 31 in 2021, currently 23, indicating significant weight loss over time. This is likely multifactorial including her near end-stage respiratory disease and her diabetic gastroparesis as contributing factors. Assessment & Plan Gastrointestinal symptoms/colitis concern: Education provided regarding colitis as a nonspecific inflammatory condition; reassured patient she does not have ulcerative colitis. She asks about only because she continues to see advertisements on TV about ulcerative colitis/Crohn medications. Symptom prof ile more consistent with constipation. Appetite likely influenced by chronic respiratory disease and diabetic gastroparesis. Currently tolerating diet with regular bowel movements. - Continue Linzess 72 micro g, Reglan 10 mg 4 times a day, omeprazole in the morning and famotidine at night, and a fiber supplement for constipation and gastroparesis as previously prescribed - Education and reassurance provided regarding colitis Chronic respiratory disease (COPD) with recent hospitalizations: Stable today by history; no acute complaints raised. Respiratory disease may be contributing to reduced appetite. - Renew all chronic medications - Follow-up in 6 months Medication management: Post-hospital additions include metoprolol 25 mg twice daily; clindamycin noted as temporary. Patient using blister packs. Pharmacy coordination clarified. - Maintain metoprolol 25 mg twice daily as currently prescribed - Clindamycin to be used as a temporary course only - Send maintenance refills to [facility]; use [facility] for any urgent/short-term fills - Ensure adequate refills on all chronic medications Return office visit in 6 months Medications: New simethicone (Anti-Gas Ultra Strength) 180 mg PO QID PRN 120 caps 6RF gas Refilled linaclotide (Linzess) 72 mcg PO QAM 30 caps 6RF K59.04 - Chronic idiopathic constipation metoclopramide HCl (Reglan) 10 mg PO QIDACHS 180 tabs 6RF K31.84 - Gastroparesis psyllium husk (Fiber Laxative (psyllium husk)) 1.04 grams (2 x 0.52 gram) PO BID 120 caps 6RF 30 days famotidine 40 mg PO BEDTIME 90 tabs 2RF Coding Level of Care Code Est Pt Level 3 (72918) Diagnoses Gastroparesis K31.84 Gastroesophageal reflux disease without esophagitis K21.9 Esophagitis presence: without esophagitis Chronic idiopathic constipation K59.04
== END 2025-07-20 12:32 | disposition home or self-care (01) ==
LOC: HO.HGI 12:03
PROVIDERS: PCP Internal Medicine; Visit Provider Nurse Practitioner
DX: K31.84 Gastroparesis (principal); K21.9 Gastro-esophageal reflux disease without esophagitis; K59.04 Chronic idiopathic constipation
CPT/HCPCS: 99213

== ENCOUNTER → 2025-07-20 12:02 | Outpatient (BNVA) | payer OTHER, SELFPAY | PROVIDERS: PCP Internal Medicine; Visit Provider Nurse Practitioner | DX: K31.84 Gastroparesis (principal); K21.9 Gastro-esophageal reflux disease without esophagitis; K59.04 Chronic idiopathic constipation; R53.83 Other fatigue | CPT/HCPCS: 99212 ==

== ENCOUNTER 2025-07-31 09:13 | Outpatient (REF) | payer OTHER, SELFPAY ==
[2025-07-31 10:30] LABS: MANUAL DIFF FLAG NO
[2025-07-31 10:42] LABS: Hematocrit 37.2 % (37.0-47.0); Hemoglobin 10.3 g/dl (12.0-16.0); Imm Gran Abs Auto 0.02 X10*3/uL (0.00-0.03); Imm Gran Pct Auto 0.2 % (0.0-0.4); Lymphocytes Absolute Auto 2.5 X10*3/uL (1.2-4.9); Mean Corpuscular HGB Conc 27.7 g/dl (31.0-35.0); Mean Corpuscular Hemoglobin 21.5 pg (27.0-33.0); Mean Corpuscular Volume 77.8 fL (80.0-98.0); NRBC Abs Auto 0.000 X10*3/uL (0.0-0.012); NRBC Pct Auto 0.0 /100WBC (0.0-0.2); Platelet Count 367 X10*3/uL (160-400); Red Blood Count 4.78 X10*6/uL (4.20-5.50); White Blood Count 10.0 X10*3/uL (4.8-10.8)
[2025-07-31 11:19] LABS: Alanine Aminotransferase 9 U/L (0-31); Anion Gap 13 (12-20); Aspartate Amino Transferase 16 U/L (5-31); Blood Urea Nitrogen 7 mg/dL (9-16); Calcium 10.3 mg/dL (8.4-10.2); Carbon Dioxide 35 mmol/L (22-29); Chloride 99 mmol/L (96-108); Cholesterol 127 mg/dL (<200); Estimated Glomerular Filt Rate > 60; HDL Cholesterol 44 mg/dL (>40); Iron 19 mcg/dL (30-160); Percent Iron Saturation 4 % (15-50); Potassium 4.2 mmol/L (3.3-5.1); Sodium 143 mmol/L (135-145); Total Iron Binding Capacity 433 mcg/dL (228-428); Triglycerides 193 mg/dL (<150); Unsaturated Iron Binding 414 ug/dL
[2025-07-31 11:39] LABS: Microalbum/Creatinine Ratio Ur 14.9 ug/mg cr (<30)
== END 2025-07-31 09:14 | disposition home or self-care (01) ==
LOC: HO.HMGCLDS 09:13
PROVIDERS: PCP Internal Medicine; Visit Provider Internal Medicine
DX: I10 Essential (primary) hypertension (principal); E78.2 Mixed hyperlipidemia; E11.9 Type 2 diabetes mellitus without complications; K21.9 Gastro-esophageal reflux disease without esophagitis; D64.9 Anemia, unspecified; Z78.0 Asymptomatic menopausal state
CPT/HCPCS: 36415; 80048; 80061; 82043; 82306; 82570; 83036; 83540; 84450; 84460; 85025

== ENCOUNTER 2025-08-02 14:56 | Outpatient (AMB) | payer OTHER, SELFPAY ==
[2025-08-02 15:08] VITALS: BP 100/68; PULSE 84; RESP 17; TEMP 36.8; O2SAT 98; BMI 23.2
--- NOTE | 2025-08-02 15:08 | MHC.PC.OV ---
Vital Signs 08/02/25 15:08 Height 4 ft 9 in Weight 107 lb BMI 23.2 BP 100/68 Blood Pressure Location Rt brachial Position Sitting Respiration 17 Pulse 84 Pulse Source Pulse Oximeter Temp 98.3 F Temp Source Oral Pulse Oximetry (%) 98 Oxygen Delivery Method Nasal Cannula Intake Visit Reasons: 3m follow up Intake Note: Pt is here today for her 3mo. f/u Sap Pp Consultant Required: No Allergies amoxicillin (AMOXICILLIN) Allergy (Intermediate, Verified 08/12/25 20:35) RASH Medication List - Last Reconciled 08/02/25 by Magalie Nicolas MD albuterol sulfate 90 mcg/actuation (Ventolin HFA) 2 puffs inhalation Q6H PRN amlodipine 5 mg PO DAILY aspirin (Adult Low Dose Aspirin) 81 mg PO BEDTIME baclofen 10 mg PO TID 30 days blood-glucose meter (FreeStyle Lite Meter kit) As directed twice a day before meals cholecalciferol (vitamin D3) 50 mcg PO DAILY dimethicone 5% (Soothe and Cool Inzo Barrier) 1 appl topical QID PRN esomeprazole magnesium 40 mg PO DAILY famotidine 40 mg PO BEDTIME flash glucose scanning reader (FreeStyle Cristian 2 [place]) test blood sugar 4 times per day flash glucose sensor (FreeStyle Cristian 2 Sensor kit) Test blood sugar 4 times per day srkotnvfwfb-gteyavrbk-aoksqdsj 100-62.5-25 mcg (Trelegy Ellipta) 1 ea inhalation DAILY FreeStyle Lite Strips (blood sugar diagnostic) check fasting blood sugar twice a day before meals NS gabapentin 800 mg PO TID 30 days lancets (FreeStyle Lancets) As directed twice a day AC linaclotide (Linzess) 72 mcg PO QAM losartan 50 mg PO DAILY magnesium oxide 400 mg PO BEDTIME metformin 1,000 mg PO BID metoclopramide HCl (Reglan) 10 mg PO QIDACHS metoprolol tartrate 25 mg See Protocol PO BID psyllium husk (Fiber Laxative (psyllium husk)) 1.04 grams (2 x 0.52 gram) PO BID 30 days rosuvastatin 20 mg PO DAILY simethicone (Anti-Gas Ultra Strength) 180 mg PO QID PRN sitagliptin phosphate (Januvia) 100 mg PO DAILY Tobacco use date assessed: 08/02/25 Dental Screening Dental Screen Date: 05/03/25 HPI 3m follow up HPI Details The patient is a 65-year-old female presenting for a follow-up visit for her follow up. Her diabetes, hypertension, and cholesterol are noted to be well controlled on her current medications, which include amlodipine and Januvia. Latest hemoglobin A1c is at 6.3%, and lipids are within normal limits, currently on rosuvastatin 20 mg daily She continues to smoke. She is followed by a careers adviser, Dr. Li, who she last saw on July 11 and is scheduled to see again in 3-4 months. Her inhaler regimen is unchanged, and she takes azithromycin three times a week for infection prophylaxis. She reports non-adherence with using her Acapella device and performing breathing exercises. The patient is enrolled in a lung cancer screening program. Her last low-dose CT scan was in March of the previous year, which showed some lung nodules, and she is now overdue for her annual follow-up scan. The patient has a history of anemia and reports she is not currently taking her prescribed pills for it. Her immunizations are up to date, including a flu shot on May 03, as well as prior pneumonia and shingles vaccines. She has a scheduled ophthalmology appointment with Dr. eVlasquez in August 2025. [facility] Medical History (Updated 08/12/25 @ 20:41 by Magalie Nicolas MD) Anemia COPD (chronic obstructive pulmonary disease) Chronic hypercapnic respiratory failure Mixed dyslipidemia Heavy cigarette smoker History of pneumonia Gastritis Diabetic gastroparesis Diastolic CHF with preserved left ventricular function, NYHA class 2 Type 2 diabetes mellitus with other diabetic kidney complication Essential hypertension Postlaminectomy syndrome of cervical region Seasonal allergic rhinitis GERD (gastroesophageal reflux disease) Surgical History H/O cervical discectomy History of esophagogastroduodenoscopy (EGD) Hx of colonoscopy Family History Mother Diabetes Sister Diabetes Mental health disorder Brother Diabetes Father HTN (hypertension) Social History Household Members: Spouse Housing: Unknown / Unable to assess Housing Other:: pt unable to recall Are you a primary acute care nursing assistant to a significant other at home: No Do you presently have visiting nurse or other home services: Yes ([facility] and [employer] but pt states they have not been coming.) Alcohol intake: current Alcohol intake frequency: does not drink 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 Patient Tobacco Use Status: Current everyday Tobacco user Tobacco use type: Cigarette Cigarette Packs Per Day: 1 Cigarettes Per Day: 20.0 Years Smoked: 51 Smoked in Last 30 Days: Yes e-Cigarette/Vaping Use: Never Used Second Hand Smoke Exposure: Yes Use of substances other than those prescribed or required for medical reasons: No Advance Directives: Yes Advance Directives on File: Yes Advance Directives Date on File: 08/02/23 Do you have a plan to hurt others: No Plan service: No Current occupational status: unemployed and disabled Gender identity: Female Cognitive needs: No Hearing needs: No Vision needs: Yes Questionnaire PHQ-9 Over the last 2 weeks, how often have you been bothered by any of the following problems? Depression Screening Interpretation: Negative Depression Screening Done: Yes Source: Developed by Drs. Wiley Caballero, Sharmila Paez, Iraj Hernandez and colleagues, with an educational radha from [employer]. Thrive Questionnaire Date Thrive assessed: 09/07/24 I am a: Patient What is your living situation today?: I have a steady place to live Within the past 12 months, did the food you bought not last and you didn't have the money to get more?: Never true Within the past 12 months, did you worry whether your food would run out before you got money to buy more?: Never true Do you have trouble paying for medicines?: No Do you have trouble getting transportation to medical appointments?: No Do you have trouble paying your heating and electricity bill?: No Do you have trouble taking care of your child, family member or friend?: No Do you have trouble with day-to-day activities such as bathing, preparing meals, shopping, managing finances, etc.?: Yes Are you currently unemployed and looking for a job?: No Are you interested in more education?: No Currently or been in a relationship where the following occur: I choose not to answer THRIVE Score: 0 FREDI-7 AMB Questionnaire FREDI-7 Date FREDI - 7 assessed: 05/03/25 Source: Developed by Drs. Wiley Caballero, Sharmila Paez, Iraj Hernandez and colleagues, with an educational radha from [employer]. Review of Systems Const Denies fatigue, Denies fever(s), Denies night sweats, Denies poor appetite and Reports weight loss Eyes Details: Glasses Reports requires corrective lenses ENT Reports Normal hearing present, Denies dental pain, Denies dysphagia, Denies hearing loss, Denies mouth pain, Denies odynophagia, Denies throat swelling, Denies tongue swelling and Reports other (Dentition adequate) Card Reports no additional complaints and Reports dyspnea on exertion Resp Reports cough and Reports dyspnea on exertion GI Details: Denies abdominal pain, Denies melena, Reports bloating, Denies hematochezia, Reports constipation, Denies GI cramping, Denies dysphagia, Denies excessive flatus, Reports early satiety, Reports heartburn, Denies diarrhea, Denies nausea, Denies odynophagia, Denies vomiting and Denies hematemesis Reports no additional complaints Musc Reports no additional complaints Skin/Breast Denies pruritus, Denies lesions, Denies rash and Denies jaundice Neuro Reports Normal hearing present and Denies Abnormal speech present Psych Reports no additional complaints Endo Denies fatigue Patel/Lymph Reports no additional complaints Aller/Immun Denies throat swelling and Denies tongue swelling Physical exam (Primary Care) Vital Signs: Last Vital Signs Temp 98.3 F 08/02/25 15:08 Pulse 84 08/02/25 15:08 Resp 17 08/02/25 15:08 BP 100/68 08/02/25 15:08 Pulse Ox 98 08/02/25 15:08 Oxygen Delivery Method Nasal Cannula 08/02/25 15:08 BMI result Body Mass Index 23.2 Tobacco/Smoking Status: Tobacco use Status Tobacco use date assessed 08/02/25 08/02/25 15:15 Patient Tobacco Use Status Current everyday Tobacco 08/02/25 15:15 Tobacco use type Cigarette 08/02/25 15:15 e-Cigarette/Vaping Use Never Used 08/02/25 15:15 Are you ready to quit: No Tobacco cessation counseling provided: Yes Depression Screening Interpretation: Negative Thrive Assessment: Date of Thrive Assessment Date Thrive assessed 09/07/24 08/02/25 15:15 Currently or been in a relationship where the following occur: I choose not to answer Const General: alert Orientation/consciousness: patient oriented x3 HENMT Head: Yes normocephalic Ears: external ears normal General nose exam: Normal external nose present and No nasal discharge present Face and sinus: Yes face symmetric Mouth: Normal oral and palatal mucosa present and moist mucous membranes Eyes General: appearance normal, both eyes and all related structures Neck Neck: Yes full ROM, Yes no lymphadenopathy and Yes supple Resp Other: Continuous O2 supplement at 2 L per nasal cannula Effort & Inspection: able to speak in complete sentences Auscultation: diminished lung sounds Cardio Rate: regular rate Rhythm: regular rhythm Heart sounds: S1 normal heart sound present and S2 normal heart sound present GI Other: Normal bowel sounds, soft, nontender, no mass palpated General: Yes no CVA tenderness Back/Spine/Pelvis Back: no CVA tenderness and No back tenderness Skin General skin exam: no rashes or lesions noted Neuro General: patient oriented x3 Cranial nerves: Yes Normal hearing present Cognition (Neuro): normal cognition Speech: No Abnormal speech present Gait exam (Neuro): Normal gait present Extrem General: Yes no joint enlargement, Yes no pedal edema, Yes no calf tenderness and Yes normal gait Results Reviewed Results Reviewed: Name: Maria Elena Kingston Age/Sex: 65/F : 1960 Unit#: [id number] Attend Dr: Magalie Nicolas MD Re07/31/25 Status: DEP REF Location: [facility] Disch: SPEC : [id number] SEUN: 07/31/25 STATUS: COMP REQ : [id number] RECD: 07/31/[address]: Magalie Nicolas MD COMP: 07/31/25 ENTERED: 07/31/[address]: ORDERED: CBC Auto Diff Test Result Flag Reference WBC 10.0 4.8-10.8 X10*3/uL RBC 4.78 4.20-5.50 X10*6/uL HGB 10.3 L 12.0-16.0 g/dl HCT 37.2 37.0-47.0 % MCV 77.8 L 80.0-98.0 fL MCH 21.5 L 27.0-33.0 pg MCHC 27.7 L 31.0-35.0 g/dl RDW 19.0 H 11.0-16.0 % PLT 367 160-400 X10*3/uL MPV 10.1 9.4-12.3 fL Neut Pct Auto 61.9 45-73 % ImGran Pct Auto 0.2 0.0-0.4 % Lymp Pct Auto 25.2 20-40 % Holt Pct Auto 7.7 2-11 % Eos Pct Auto 3.9 0-4 % Baso Pct Auto 1.1 0-2 % NRBC Pct Auto 0.0 0.0-0.2 /100WBC ANC Neut Abs # 6.2 2.0-8.3 x10*3/uL ImGran Abs Auto 0.02 0.00-0.03 X10*3/uL Lymph Abs Auto 2.5 1.2-4.9 X10*3/uL Holt Abs Auto 0.8 0.1-1.2 X10*3/uL Eos Abs Auto 0.4 0.0-0.4 X10*3/uL Baso Abs Auto 0.1 0.0-0.2 X10*3/uL NRBC Abs Auto 0.000 0.0-0.012 X10*3/uL Laboratory Tests 07/31/25 09:28 Estimat Average Glucose 134 Hemoglobin A1c % 6.3 H Urine Creatinine 40.22 Urine Microalbumin 6.0 Microalb/Creat Ratio 14.9 Name: Maria Elena Kingston Age/Sex: 65/F : 1960 Unit#: [id number] Attend Dr: Magalie Nicolas MD Re07/31/25 Status: DEP [facility]F [facility] Disch: SPEC : [id number] SEUN: 07/31/25 STATUS: COMP REQ : [id number] RECD: 07/31/[address]: Magalie Nicolas MD COMP: 07/31/257 ENTERED: 07/31/[address]: ORDERED: Met Prof Fast, IRON PROF, AST, ALT, Lipid Panel, Vitamin D 25-OH Test Result Flag Reference Sodium 143 135-145 mmol/L Potassium 4.2 3.3-5.1 mmol/L CL 99 96-108 mmol/L CO2 35 H 22-29 mmol/L Gap 13 12-20 BUN 7 L 9-16 mg/dL Creat 0.40 L 0.5-1.4 mg/dL eGFR > 60 Chronic Kidney Disease: Estimated GFR < 60 mL/min/1.73m2 Severe Kidney Disease: Estimated GFR < 15 mL/min/1.73m2 FBS 108 H 60-99 mg/dL A fasting glucose from 100-125 mg/dl is considered impaired (pre-diabetes). CA 10.3 # H 8.4-10.2 mg/dL Iron 19 L 30-160 mcg/dL TIBC 433 H 228-428 mcg/dL Saturation 4 L 15-50 % UIBC 414 ug/dL AST (GOT) 16 5-31 U/L ALT (GPT) 9 0-31 U/L Triglyceride 193 H <150 mg/dL Desirable Triglyceride: less than 150 mg/dL Borderline High Triglyceride 150-199 mg/dL High Triglyceride: 200-499 mg/dL Very High Triglyceride: greater than or equal to 5OO mg/dL Cholesterol 127 <200 mg/dL Desirable Cholesterol: less than 200 mg/dL Borderline High Cholesterol: 200-239 mg/dL High Cholesterol: greater than 239 mg/dL LDL Calculated 45 <100 mg/dL Desirable LDL: less than 100 mg/dL Near Optimal/Above Optimal LDL: 110-129 mg/dL Borderline High LDL: 130-159 mg/dL High LDL: 160-189 mg/dL Very High LDL: greater than or equal to 190 mg/dL HDL 44 >40 mg/dL Desirable HDL: greater than 40 mg/dL Note: This HDL assay may give artificially low results in patients with liver disease. Vitamin D 25-OH 44.4 >30 ng/mL Health Based Reference Values* < 20 ng/mL Deficient 20-30 ng/mL Insufficient > 30 ng/mL Sufficient Coding Level of Care Code Est Pt Level 4 (28584) Diagnoses Mixed dyslipidemia E78.2 Type 2 diabetes mellitus without complication, with no history of insulin use E11.9 Primary hypertension I10 Hypertension type: primary hypertension Anemia D64.9 Assessment & Plan Assessment & Plan (1) Mixed dyslipidemia: Code(s): E78.2 - Mixed hyperlipidemia Category: Medical Plan: Continued on rosuvastatin 20 mg daily (2) Type 2 diabetes mellitus without complication, with no history of insulin use: Code(s): E11.9 - Type 2 diabetes mellitus without complications Category: Medical Plan: Continue metformin a 1000 mg 1 tablet twice a day and Januvia 100 mg once a day. Reminded to get yearly diabetes eye exam for retinopathy screening. (3) Hypertension: Code(s): I10 - Essential (primary) hypertension Category: Medical Qualifiers: Hypertension type: primary hypertension Qualified Code(s): I10 - Essential (primary) hypertension Plan: Blood pressure at goal of less than 130/80. Continue with current medication. Reinforced importance of following a low sodium diet, getting regular exercise, and lowering stress levels. (4) Anemia: Code(s): D64.9 - Anemia, unspecified Category: Medical Plan: Start ferrous sulfate 325 mg per tablet taken once a day. Advised to please iron rich foods in diet, will repeat another CBC, ferritin, iron profile in 4 months Orders: Orders Aspartate Amino Transferase 11/17/25 I10 - Essential (primary) hypertension, E78.2 - Mixed hyperlipidemia, E11.9 - Type 2 diabetes mellitus without complications Alanine Aminotransferase 11/17/25 I10 - Essential (primary) hypertension, E78.2 - Mixed hyperlipidemia, E11.9 - Type 2 diabetes mellitus without complications IRON PROFILE 11/17/25 I10 - Essential (primary) hypertension, E78.2 - Mixed hyperlipidemia, E11.9 - Type 2 diabetes mellitus without complications Complete Blood Count Auto Diff 11/17/25 I10 - Essential (primary) hypertension, E78.2 - Mixed hyperlipidemia, E11.9 - Type 2 diabetes mellitus without complications Hemoglobin A1c 11/17/25 I10 - Essential (primary) hypertension, E78.2 - Mixed hyperlipidemia, E11.9 - Type 2 diabetes mellitus without complications Vitamin D 25-OH Total 11/17/25 I10 - Essential (primary) hypertension, E78.2 - Mixed hyperlipidemia, E11.9 - Type 2 diabetes mellitus without complications Lipid Panel 11/17/25 I10 - Essential (primary) hypertension, E78.2 - Mixed hyperlipidemia, E11.9 - Type 2 diabetes mellitus without complications Microalbumin, Random (w Creat) 11/17/25 I10 - Essential (primary) hypertension, E78.2 - Mixed hyperlipidemia, E11.9 - Type 2 diabetes mellitus without complications Basic Metabolic Panel Fasting 11/17/25 I10 - Essential (primary) hypertension, E78.2 - Mixed hyperlipidemia, E11.9 - Type 2 diabetes mellitus without complications Ferritin 11/17/25 I10 - Essential (primary) hypertension, E78.2 - Mixed hyperlipidemia, E11.9 - Type 2 diabetes mellitus without complications Medications: New ferrous sulfate 325 mg PO DAILY 30 tabs 5RF
== END 2025-08-02 15:44 | disposition home or self-care (01) ==
LOC: HO.HMCC 14:57
PROVIDERS: Visit Provider Internal Medicine
DX: E78.2 Mixed hyperlipidemia (principal); E11.9 Type 2 diabetes mellitus without complications; I10 Essential (primary) hypertension; D64.9 Anemia, unspecified

== ENCOUNTER → 2025-08-02 14:56 | Outpatient (BNVA) | payer OTHER, SELFPAY | PROVIDERS: Visit Provider Internal Medicine | DX: E11.9 Type 2 diabetes mellitus without complications (principal); I10 Essential (primary) hypertension; E78.2 Mixed hyperlipidemia; D64.9 Anemia, unspecified; F17.210 Nicotine dependence, cigarettes, uncomplicated | CPT/HCPCS: 99212 ==

== ENCOUNTER 2025-08-10 15:39 | Emergency (ER) | payer OTHER, SELFPAY ==
--- OUTSIDE RECORDS SUMMARY | 2025-08-08 23:59 | XMS_ITS | Continuity of Care Document ---
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 Attending Physician: Admtr, Ar8 Admitting Physician: Admtr, Nelly Referring Physician: Admtr, Ar8 Encounter Type: Triage Allergies, Adverse Reactions, Alerts Substance Criticality Severity Reaction Reaction Severity Status amoxicillin Active Immunizations Given and Recorded Vaccine Date Status Refusal Reason influenza virus vaccine, inactivated 05/07/24 Mehran rded influenza virus vaccine, inactivated 08/25/23 Mehran rded influenza virus vaccine, inactivated 06/06/22 Mehran rded influenza virus vaccine, inactivated 07/31/21 Mehran rded influenza virus vaccine, inactivated 10/17/20 Mehran rded influenza virus vaccine, inactivated 07/27/19 Mehran rded influenza virus vaccine, inactivated 06/30/18 Mehran rded influenza virus vaccine, inactivated 06/24/17 Mehran rded zoster vaccine, inactivated 03/27/23 Recorded zoster vaccine, inactivated 09/10/22 Recorded pneumococcal 20-valent conjugate vaccine 03/27/23 Recorded [id number] 12y+ bivalent booster vax 05/15/22 Recorded SARS-CoV-2 (COVID-19) mRNA BNT-162b2 vac 10/02/21 Recorded SARS-CoV-2 (COVID-19) mRNA BNT-162b2 vac 12/05/20 Recorded SARS-CoV-2 (COVID-19) mRNA BNT-162b2 vac 11/12/20 Recorded tetanus/diphtheria/pertussis, acel(Tdap) 12/23/17 Recorded pneumococcal 23-valent vaccine 02/08/13 Given Medications albuterol 0.083% inhalation solution 3 mL = 2.5 mg, Inhalation, Every 6 hours, PRN for wheezing, # 60 each, 3 Refills, Maintenance, 07/16/23 5:07:00 PM EST, Solution, [facility]/pharmacy #[id number], Partial fill upon patient request if the prescription is for a schedule II opioid drug., 144, cm, 06/30/23 16:36:00 EST, Height Start Date: 07/16/23 Status: Ordered Medication Dispense Status: Completed Quantity: 60.0 Unit: each Total Allowed Fills: 4 Fills Dispensed: 0 Indications: Personal history of other diseases of the respiratory system; amitriptyline 25 mg oral tablet TAKE 1 TABLET BY MOUTH AT BEDTIME FOR 30 DAYS. Start Date: 04/04/21 Status: Ordered Medication Dispense Status: Completed Total Allowed Fills: 1 Fills Dispensed: 0 Anti Gas Anti Gas, By Mouth, Refills 0, Maintenance, 04/04/21 3:22:00 PM EDT, Supply Start Date: 04/04/21 Status: Ordered Medication Dispense Status: Completed Total Allowed Fills: 1 Fills Dispensed: 0 aspirin 81 mg oral delayed release tablet 81 mg, 1, tablet, By Mouth, Daily, # 30 tablet, Refills 0, Maintenance, 04/04/21 3:20:00 PM EDT, Partial fill upon patient request if the prescription is for a schedule II opioid drug. Start Date: 04/04/21 Status: Ordered Medication Dispense Status: Completed Quantity: 30.0 Unit: tablet Total Allowed Fills: 1 Fills Dispensed: 0 atorvastatin 10 mg oral tablet 1 tablet = 10 mg, By Mouth, Daily, 0 Refills, Maintenance Start Date: 05/26/16 Status: Ordered Medication Dispense Status: Completed Total Allowed Fills: 1 Fills Dispensed: 0 azithromycin 500 mg oral tablet 1 tablet = 500 mg, By Mouth, Every Wednesday, and Wednesday, for 30 days, # 14 tablet, 11 Refills, Acute 09/02/25 3:46:00 PM EST, 09/07/24 3:46:00 PM EST, Tablet, [facility]/pharmacy #[id number], Partial fillupon patient request if the prescription is for a schedule II opioid drug., 144, cm, 09/07/24 15:18:00 EST, Height Start Date: 09/07/24 Stop Date: 09/02/25 Status: Ordered Medication Dispense Status: Completed Quantity: 14.0 Unit: tablet Total Allowed Fills: 12 Fills Dispensed: 0 Cymbalta 60 mg oral enteric coated capsule 1 capsule = 60 mg, By Mouth, Daily, # 30 capsule, 0 Refills, Maintenance, 09/20/17 1:56:58 PM EST, ECCapsule Start Date: 09/20/17 Status: Ordered Medication Dispense Status: Completed Quantity: 30.0 Unit: capsule Total Allowed Fills: 1 Fills Dispensed: 0 Duoneb Inhalation Solution 1, vials, Neb, Every 4 hours, Refills 0, Maintenance, 07/13/17 11:47:24 AM EST, Inhalation Solution Start Date: 07/13/17 Status: Ordered Medication Dispense Status: Completed Total Allowed Fills: 1 Fills Dispensed: 0 Duoneb Inhalation Solution 1, vials, Neb, Every 4 hours, PRN, Refills 0, Maintenance, 07/13/17 11:47:31 AM EST, Inhalation Solution Start Date: 07/13/17 Status: Ordered Medication Dispense Status: Completed Total Allowed Fills: 1 Fills Dispensed: 0 Fiber Lax 0 Refills, Maintenance, 01/18/15 1:27:22 PM EDT Start Date: 01/18/15 Status: Ordered Medication Dispense Status: Completed Total Allowed Fills: 1 Fills Dispensed: 0 Januvia 100 mg oral tablet 1 tablet = 100 mg, By Mouth, Daily, # 30 tablet, 0 Refills, Maintenance, 02/01/23 4:07:00 PM EDT, Tablet, Partial fill upon patient request if the prescription is for a schedule II opioid drug. Start Date: 02/01/23 Status: Ordered Medication Dispense Status: Completed Quantity: 30.0 Unit: tablet Total Allowed Fills: 1 Fills Dispensed: 0 losartan 50 mg oral tablet 1 tablet = 50 mg, By Mouth, Daily, # 30 tablet, 0 Refills, Maintenance, 02/01/23 4:07:00 PM EDT, Tablet, Partial fill upon patient request if the prescription is for a schedule II opioid drug. Start Date: 02/01/23 Status: Ordered Medication Dispense Status: Completed Quantity: 30.0 Unit: tablet Total Allowed Fills: 1 Fills Dispensed: 0 Metamucil Powder 1 pack/packet = 5.85 Gm, By Mouth, Daily, 0 Refills, Maintenance, 07/13/17 11:47:39 AM EST, Powder Start Date: 07/13/17 Status: Ordered Medication Dispense Status: Completed Total Allowed Fills: 1 Fills Dispensed: 0 metFORMIN 500 mg oral tablet TAKE 1 TABLET (500MG) BY MOUTH TWICE A DAY. Start Date: 04/04/21 Status: Ordered Medication Dispense Status: Completed Total Allowed Fills: 1 Fills Dispensed: 0 Nicotine = 21 mg, Topically, Daily, pt is only using at [place], 0 Refills, Maintenance, 07/13/17 11:47:34 AM EST, Patch Start Date: 07/13/17 Status: Ordered Medication Dispense Status: Completed Total Allowed Fills: 1 Fills Dispensed: 0 omeprazole 20 mg oral enteric coated capsule 1 capsule = 20 mg, By Mouth, Daily, 0 Refills, Maintenance, 03/19/16 3:07:51 PM EDT Start Date: 03/19/16 Status: Ordered Medication Dispense Status: Completed Total Allowed Fills: 1 Fills Dispensed: 0 Senna By Mouth, 0 Refills, Maintenance, 06/13/15 3:07:11 PM EDT Start Date: 06/13/15 Status: Ordered Medication Dispense Status: Completed Total Allowed Fills: 1 Fills Dispensed: 0 Spiriva Respimat 60 2 puffs, Inhalation, Daily, 0 Refills, Maintenance, 05/09/15 3:23:45 PM EDT Start Date: 05/09/15 Status: Ordered Medication Dispense Status: Completed Total Allowed Fills: 1 Fills Dispensed: 0 Trelegy Ellipta 100 mcg-62.5 mcg-25 mcg/inh inhalation powder 1 puffs, Inhalation, Daily, # 60 each, 11 Refills, Maintenance, 06/13/25 2:44:00 PM EDT, [facility] STORE [id number], 144, cm, 06/12/25 17:35:00 EDT, Height Start Date: 06/13/25 Status: Ordered Medication Dispense Status: Completed Quantity: 60.0 Unit: each Total Allowed Fills: 1 Fills Dispensed: 0 varenicline 0.5 mg-1 mg oral tablet See Instructions, TAKE 1 TABLET BY MOUTH TWICE A DAY, # 53 each, 0 Refills, Maintenance, 04/04/25 11:33:00 AM EDT, [id number], 144, cm, 04/04/25 11:06:00 EDT, Height Start Date: 04/04/25 Status: Ordered Medication Dispense Status: Completed Quantity: 53.0 Unit: each Total Allowed Fills: 1 Fills Dispensed: 0 Vitamin D3 2000 intl units oral capsule 1 capsule = 2,000 International_Units, By Mouth, Daily, 0 Refills, Maintenance, 03/05/15 3:06:00 PM EDT Start Date: 03/05/15 Status: Ordered Medication Dispense Status: Completed Total Allowed Fills: 1 Fills Dispensed: 0 Xopenex HFA 45 mcg/inh inhalation aerosol 2 puffs, Inhalation, Every 4 hours, PRN Wheezing/Shortness of Breath, # 1 each, 6 Refills, Maintenance, 02/27/19 2:10:54 PM EDT, [facility]/pharmacy #[id number], May require PA. Increased jitters with FRANCISCO J/LABA Start Date: 02/27/19 Status: Ordered Medication Dispense Status: Completed Quantity: 1.0 Unit: each Total Allowed Fills: 7 Fills Dispensed: 0 Problem List Condition Confirmation Course Effective Dates Status H ealth Status Informant Cervical radiculopathy Confirmed Active Moderate COPD Confirmed Active Hx of hiatal hernia Confirmed Active Pulmonary nodules Confirmed Active Tobacco use Confirmed Active Social History Social History Type Response Smoking Status 10 or more cigarette s (1/2 pack or more)/day in last 30 days entered on: 11/13/24 Sexual Orientation Self described orien tation: ; Straight or heterosexual Sex Sex Representation Female (finding) Patient Care team information Care Team Personnel Name: Maria Isabel REVELES , Magalie Maria Position: Reference Physician Member Role: PCP Address: [facility] [address] Telecom: Name: Damaris Cavanaugh RN Position: S ED RN W/OE and Tasks Member Role: Primary Care Nurse Care Team Related Persons Name: NO, ONE Name: CRISTÓBAL VIVAS Name: GISSELL DUBOIS Name: JAMES TURNER Insurance Providers Guarantor name: DIPAK DUBOIS [facility] Plan Information #: 1 Payer: [employer] Payer Identifier: NA Member Number: [id number] Group Number: [id number] Subscriber Identifier: NA Relationship to Subscriber: self Coverage Type: NA Coverage Verification Date: NA Telecom: NA Address:
--- NOTE | ~2025-08-10 | XR_ITS ---
CLINICAL HISTORY: pain 3 views left ankle Comparison: None Findings: No fractures or dislocations. No joint effusion. No significant arthritic change. No radiopaque foreign body. Impression: 1. Normal left ankle This document has been electronically signed by: Lj Cortez MD on 08/10/2025 16:54:39
--- NOTE | ~2025-08-10 | XR_ITS ---
CLINICAL HISTORY: pain 4 views right knee Comparison: None Findings: No fractures or dislocations. No joint effusion. No significant arthritic change. No radiopaque foreign body. Impression: 1. Unremarkable right knee 4 views left knee Comparison: None Findings: No fractures or dislocations. No joint effusion. No significant arthritic change. No radiopaque foreign body. Impression: 1. Unremarkable left knee This document has been electronically signed by: Lj Cortez MD on 08/10/2025 16:55:12
[2025-08-10 16:18] VITALS: BP 129/63; PULSE 82; RESP 20; TEMP 36.1; O2SAT 94; BMI 23.4
[2025-08-10 18:35] LABS: MANUAL DIFF FLAG NO
[2025-08-10 18:41] LABS: Hematocrit 36.3 % (37.0-47.0); Hemoglobin 9.8 g/dl (12.0-16.0); Imm Gran Abs Auto 0.05 X10*3/uL (0.00-0.03); Imm Gran Pct Auto 0.4 % (0.0-0.4); Lymphocytes Absolute Auto 3.4 X10*3/uL (1.2-4.9); Mean Corpuscular HGB Conc 27.0 g/dl (31.0-35.0); Mean Corpuscular Hemoglobin 21.3 pg (27.0-33.0); Mean Corpuscular Volume 78.7 fL (80.0-98.0); NRBC Abs Auto 0.000 X10*3/uL (0.0-0.012); NRBC Pct Auto 0.0 /100WBC (0.0-0.2); Platelet Count 349 X10*3/uL (160-400); Red Blood Count 4.61 X10*6/uL (4.20-5.50); White Blood Count 13.9 X10*3/uL (4.8-10.8)
[2025-08-10 18:55] LABS: Alanine Aminotransferase 11 U/L (0-31); Albumin Level 4.6 g/dL (3.5-5.0); Alkaline Phosphatase 64 U/L (39-117); Anion Gap 15 (12-20); Aspartate Amino Transferase 14 U/L (5-31); Blood Urea Nitrogen 7 mg/dL (9-16); Calcium 10.1 mg/dL (8.4-10.2); Carbon Dioxide 32 mmol/L (22-29); Chloride 101 mmol/L (96-108); Creatinine Clr Calc Pharmacy 98.3; Estimated Glomerular Filt Rate > 60; Lipase 26 U/L (8-78); Potassium 4.2 mmol/L (3.3-5.1); Sodium 144 mmol/L (135-145); Total Protein 6.7 g/dL (6.5-8.0)
--- NOTE | 2025-08-10 20:14 | ED_ITS ---
HPI - Nausea/Vomiting/Diarrhea General Chief complaint: Nausea/Vomiting/Diarrhea Stated complaint: NAUSEA, LEFT ANKLE PAIN, BOTH KNEE PAIN Time Seen by Provider: 08/10/25 20:10 Source: patient Mode of arrival: ambulatory Limitations: no limitations History of Present Illness ED Provider: Rui RODAS HPI Narrative: The patient is a 65-year-old female with a history of COPD, hypertension, tobacco dependency, diabetes, gastritis, GERD, and remote history of renal cell carcinoma who presents to the Emergency Department for evaluation of nausea without vomiting, and atraumatic joint pain in the left ankle, and bilateral knees. Patient reports symptoms began today, and gradually worsened throughout the day. Patient reports ankle pain is exacerbated by walking. The patient denies any recent trauma, fall, or other injury. 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 The patient denies associated dysuria, hematuria, frequency, or hesitancy. The patient reports shortness of breath and cough are mostly unchanged from her baseline. Patient denies associated chest pain, pleurisy, productive cough, objective fever abdominal pain, or known, recent sick contacts. The patient reports since arriving in the ED her nausea has improved and she is now reporting she is hungry. Related Data Home Medications ?Medication ?Instructions ?Recorded ?Confirmed fluticasone fur. 100 mcg-umeclid 1 ea inhalation DAILY 02/05/25 08/02/25 62.5 mcg-vilant 25 mcg inhalat.powder (Trelegy Ellipta) Previous Rx's ?Medication ?Instructions ?Recorded esomeprazole magnesium 40 mg 40 mg PO DAILY #30 caps 0 04/17/25 capsule,delayed release dimethicone 5 % topical cream 1 appl topical QID PRN s kin 04/27/25 (Soothe and Cool Inzo Barrier) irritation #118.29 mL albuterol sulfate 90 mcg/actuation 2 puff inhalation Q 6H PRN 05/30/25 aerosol inhaler (Ventolin HFA) shortness of breath or wheezing #6.7 grams baclofen 10 mg tablet 10 mg PO TID 30 days #90 tab s 06/01/25 gabapentin 800 mg tablet 800 mg PO TID 30 days #90 ta bs 06/08/25 FreeStyle Lite Strips (blood sugar #100 ea 06/20/25 diagnostic) amlodipine 5 mg tablet 5 mg PO DAILY #90 tabs 06/20 blood-glucose meter (FreeStyle #1 ea 06/20/25 Lite Meter kit) cholecalciferol (vitamin D3) 50 50 mcg PO DAILY #90 ca ps 06/20/25 mcg (2,000 unit) capsule flash glucose scanning reader #1 ea 06/20/25 (FreeStyle Cristian 2 [place]) flash glucose sensor (FreeStyle #6 ea 06/20/25 Cristian 2 Sensor kit) lancets 28 gauge (FreeStyle #100 ea 06/20/25 Lancets) metformin 1,000 mg tablet 1,000 mg PO BID #180 tabs metoprolol tartrate 25 mg tablet 25 mg PO BID #180 tab s 06/27/25 rosuvastatin 20 mg tablet 20 mg PO DAILY #90 tabs 06/16 10/10 aspirin 81 mg tablet,delayed 81 mg PO BEDTIME #90 tabs 07/16/25 release (Adult Low Dose Aspirin) losartan 50 mg tablet 50 mg PO DAILY #90 tabs 09/09 sitagliptin phosphate 100 mg 100 mg PO DAILY #90 tabs 07/16/25 tablet (Januvia) famotidine 40 mg tablet 40 mg PO BEDTIME #90 tabs linaclotide 72 mcg capsule 72 mcg PO QAM #30 caps 01/07 (Linzess) metoclopramide HCl 10 mg tablet 10 mg PO QIDACHS #180 tabs 07/20/25 (Reglan) psyllium husk 0.52 gram capsule 1.04 g (2 x 0.52 gram) PO BID 30 07/20/25 (Fiber Laxative (psyllium husk)) days #120 caps simethicone 180 mg capsule 180 mg PO QID PRN gas #120 caps 07/20/25 (Anti-Gas Ultra Strength) magnesium oxide 400 mg PO BEDTIME #30 caps 1 09/25/24 ferrous sulfate 325 mg (65 mg 325 mg PO DAILY #30 tabs 08/02/25 iron) tablet prednisone 20 mg tablet 60 mg (3 x 20 mg) PO DAILY 5 days 08/10/25 #15 tabs Allergies Allergy/AdvReac Type Severity Reaction Status Date / Time amoxicillin (AMOXICILLIN) Allergy Intermediate RASH Verified 08/10/25 16:20 Review of Systems 2 Review of Systems: Yes all other systems are reviewed and are negative [facility] Past Medical History Medical History COPD (chronic obstructive pulmonary disease) Chronic hypercapnic respiratory failure Mixed dyslipidemia Heavy cigarette smoker History of pneumonia Gastritis Diabetic gastroparesis Diastolic CHF with preserved left ventricular function, NYHA class 2 Type 2 diabetes mellitus with other diabetic kidney complication Essential hypertension Postlaminectomy syndrome of cervical region Seasonal allergic rhinitis GERD (gastroesophageal reflux disease) Surgical History H/O cervical discectomy History of esophagogastroduodenoscopy (EGD) Hx of colonoscopy Family History Family History Mother Diabetes Sister Diabetes Mental health disorder Brother Diabetes Father HTN (hypertension) Social History Social History Household Members: Spouse Housing: Unknown / Unable to assess Housing Other:: pt unable to recall Are you a primary wild animal caretaker to a significant other at home: No Do you presently have visiting nurse or other home services: Yes ([facility] and [employer] but pt states they have not been coming.) Alcohol intake: current Alcohol intake frequency: does not drink 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 Patient Tobacco Use Status: Current everyday Tobacco user Tobacco use type: Cigarette Cigarette Packs Per Day: 1 Cigarettes Per Day: 20.0 Years Smoked: 51 Smoked in Last 30 Days: Yes e-Cigarette/Vaping Use: Never Used Second Hand Smoke Exposure: Yes Use of substances other than those prescribed or required for medical reasons: No Advance Directives: Yes Advance Directives on File: Yes Advance Directives Date on File: 08/02/23 Do you have a plan to hurt others: No Plan service: No Current occupational status: unemployed and disabled Gender identity: Female Cognitive needs: No Hearing needs: No Vision needs: Yes Physical Exam 2 Vital Signs: Vital Signs: Last Vital Signs Temp 97.0 F 08/10/25 16:18 Pulse 87 08/10/25 20:46 Resp 20 08/10/25 20:46 BP 129/63 08/10/25 16:18 Pulse Ox 94 08/10/25 16:18 O2 Del Method Nasal Cannula 08/10/25 16:18 Oxygen Flow Rate 2 08/10/25 16:18 BMI result Body Mass Index 23.4 CONSTITUTIONAL: The patient appears chronically ill, but otherwise non-toxic, well nourished and in no acute distress. Vital signs as documented. HEAD: Atraumatic, normocephalic. EYES: EOMs grossly intact, pupils equal, conjunctiva clear, no exudate. ENT: Nares patent, no discharge. Airway patent, no audible stridor, visible mucosa is pink and moist without noted lesions. NECK: Trachea is midline, no obvious masses or gross abnormalities. CHEST: Symmetric movement, normal appearance. LUNGS: LS present with diffuse expiratory wheezes, pursed lip breathing, but otherwise non-labored work of breathing. CARDIAC: Regular Rhythm, S1/S2 appreciated, no murmurs, rubs or gallops. ABDOMEN: Abdomen soft and non-tender x4 quadrants, no palpable masses or organomegaly. : Deferred. EXTREMITIES: Bilateral knees demonstrate no effusion, erythema, or swelling, bilateral ankles demonstrate no evidence of injury, erythema, warmth, or impaired range of motion. Distal CSM intact in the bilateral lower extremities, 2+ DP/PT pulses bilaterally. Normal tone, moves all extremities spontaneously without evidence of pain. No obvious acute injury or deformity noted. NEURO: Alert and oriented x3, CN II-XII appear grossly intact. Cerebellar Functioning grossly intact. No obvious sensory or motor deficits. Speech clear and appropriate. PSYCH: Flattened affect, otherwise appropriate eye contact, fluid speech, with appropriate response to questioning. No reported suicidality or homicidality. SKIN: Warm, dry, color appropriate, normal turgor. No rashes noted. Medications Administered Discontinued Medications Generic Name Dose Route Start Last Admin Trade Name Freq PRN Reason Stop Dose Admin Acetaminophen 975 mg 08/10/25 20:31 08/10/25 21:31 Acetaminophen 325 Mg Tablet PO 08/10/25 20:32 975 mg ONCE ONE Administration Albuterol Sulfate 5 mg/ 0 mg 08/10/25 20:38 08/10/25 20:45 Albuterol/Ipratropium 3 ml INHALE 08/10/25 20:39 7.5 each ONCE ONE Administration Prednisone 60 mg 08/10/25 20:30 08/10/25 21:31 Prednisone 20 Mg Tablet PO 08/10/25 20:31 60 mg ONCE ONE Administration Medical Decision Making Medical Decision Making MDM Narrative: 8:36 PM 08/10/2025 (Bandar RODAS): The patient is a 65-year-old female with a history of COPD, hypertension, tobacco dependency, diabetes, gastritis, GERD, and remote history of renal cell carcinoma who presents to the Emergency Department for evaluation of nausea without vomiting, and atraumatic joint pain in the left ankle, and bilateral knees. Patient reports symptoms began today, and gradually worsened throughout the day. Patient reports ankle pain is exacerbated by walking. The patient denies any recent trauma, fall, or other injury. 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 The patient denies associated dysuria, hematuria, frequency, or hesitancy. The patient reports shortness of breath and cough are mostly unchanged from her baseline. Patient denies associated chest pain, pleurisy, productive cough, objective fever abdominal pain, or known, recent sick contacts. The patient reports since arriving in the ED her nausea has improved and she is now reporting she is hungry. On exam patient has diffuse expiratory wheezing, with pursed lip breathing but no other evidence of increased work of breathing at rest with FiO2 which she uses at home. On exam patient is well-appearing, in no acute distress, abdomen nontender. Bilateral lower extremity show no evidence of swelling, erythema, or injury. Laboratory evaluation demonstrates leukocytosis of 13.9, no significant anemia, electrolyte abnormality, or BENNETT. The patient's LFTs and lipase are unremarkable. At this time patient may be suffering from arthritic pain, however given her short duration of symptoms and associated nausea, we will obtain viral swabs due to a high prevalence of influenza A in the area. While awaiting results of flu swab the patient will be treated with prednisone, DuoNeb, and Tylenol, and reassessed. 9:59 PM 08/10/2025 (Bandar RODAS): The patient is viral swabs are negative. Patient reports subjective improvement in breathing following interventions and lung sounds are markedly improved. Patient will be discharged to follow up with her PCP regarding her atraumatic arthralgias. We will provide a short course of prednisone for breathing and arthralgias. Admission/Observation Consideration of admission/observation: Escalation of care including admission/observation considered Lab Data MDM Lab Attestation statement: I reviewed the patient's lab results. 08/10/25 18:29 08/10/25 18:29 Labs: Lab Results 08/10/25 08/10/25 Range/Units 18:29 21:02 WBC 13.9 H (4.8-10.8) X10*3/uL RBC 4.61 (4.20-5.50) X10*6/uL Hgb 9.8 L (12.0-16.0) g/dl Hct 36.3 L (37.0-47.0) % MCV 78.7 L (80.0-98.0) fL MCH 21.3 L (27.0-33.0) pg MCHC 27.0 L (31.0-35.0) g/dl RDW 18.8 H (11.0-16.0) % Plt Count 349 (160-400) X10*3/uL MPV 9.4 (9.4-12.3) fL Immature Gran % (Auto) 0.4 (0.0-0.4) % Neut % (Auto) 59.5 (45-73) % Lymph % (Auto) 24.3 (20-40) % [place] % (Auto) 7.9 (2-11) % Eos % (Auto) 6.9 H (0-4) % Baso % (Auto) 1.0 (0-2) % Lymph # (Auto) 3.4 (1.2-4.9) X10*3/uL [place] # (Auto) 1.1 (0.1-1.2) X10*3/uL Eos # (Auto) 1.0 H (0.0-0.4) X10*3/uL Baso # (Auto) 0.1 (0.0-0.2) X10*3/uL Abs Immat Gran (auto) 0.05 H (0.00-0.03) X10*3/uL Absolute Neuts (auto) 8.3 (2.0-8.3) x10*3/uL Absolute Nucleated RBC 0.000 (0.0-0.012) X10*3/uL Nucleated RBC % (auto) 0.0 (0.0-0.2) /100WBC Sodium 144 (135-145) mmol/L Potassium 4.2 (3.3-5.1) mmol/L Chloride 101 (96-108) mmol/L Carbon Dioxide 32 H (22-29) mmol/L Anion Gap 15 (12-20) BUN 7 L (9-16) mg/dL Creatinine 0.39 L (0.5-1.4) mg/dL Estim Creat Clear Calc 98.3 Estimated GFR > 60 Random Glucose 122 H (60-115) mg/dL Calcium 10.1 (8.4-10.2) mg/dL Total Bilirubin 0.2 (0.0-1.0) mg/dL Direct Bilirubin < 0.2 (0.0-0.5) mg/dL AST 14 (5-31) U/L ALT 11 (0-31) U/L Alkaline Phosphatase 64 (39-117) U/L Total Protein 6.7 (6.5-8.0) g/dL Albumin 4.6 (3.5-5.0) g/dL Lipase 26 (8-78) U/L Influenza Type A (PCR) NEGATIVE (Negative) Influenza Type B (PCR) NEGATIVE (Negative) RSV RNA Qual (PCR) NEGATIVE (Negative) SARS-CoV-2 RNA (RT-PCR) NEGATIVE (Negative) Radiology Impression Discussion of test interpretation with radiology: I have reviewed the radiologist's reading. Radiologist Impression: 3 views left ankle Comparison: None Findings: No fractures or dislocations. No joint effusion. No significant arthritic change. No radiopaque foreign body. Impression: 1. Normal left ankle This document has been electronically signed by: Lj Cortez MD on 08/10/2025 16:54:39 4 views right knee Comparison: None Findings: No fractures or dislocations. No joint effusion. No significant arthritic change. No radiopaque foreign body. Impression: 1. Unremarkable right knee 4 views left knee Comparison: None Findings: No fractures or dislocations. No joint effusion. No significant arthritic change. No radiopaque foreign body. Impression: 1. Unremarkable left knee Discharge Plan Discharge Clinical Impression: COPD with acute bronchitis Arthralgia Qualifiers: Joint pain location: knee Laterality: bilateral Qualified Code(s): M25.561 - Pain in right knee Patient Disposition: Home, Self-Care Instructions: COPD (Chronic Obstructive Pulmonary Disease) (ED), Arthralgia (ED) Additional Instructions: Thank you for choosing [facility]'s Emergency Department for your care today. Thankfully your laboratory evaluation, x-rays, viral swabs, exam, and vital signs are reassuring. At this time there is no indication for admission to the hospital or continued ED observation, and it is safe to discharge you home. Your symptoms today may be related to a viral illness, causing nausea, increased wheezing, and your multiple joint aches. Thankfully your breathing and lung sounds improved after interventions in the ED, please take prednisone daily for the next 5 days as prescribed. Your x-rays of your knees and ankle today showed no evidence of acute fracture or effusion (fluid). Your joint pain may be related to arthritis or a viral illness. You did test negative for COVID, influenza, and RSV, however there are countless other viruses that can cause viral syndromes. You should take alternating (staggered) doses of ibuprofen 600mg and Tylenol 1000mg every 4 hours as needed for any additional pain. Please follow up with your primary care physician for re-evaluation, referral to orthopedics as deemed appropriate, additional management of your symptoms, and continued preventative care. If you do not have a primary care physician, please call the [facility] at [phone] to establish a new primary care physician. While waiting to establish your new primary care physician, you can call our [facility] at [phone] for non-emergency needs. Please return to the emergency department if you develop a severe or sudden change in your symptoms, a fever over 100.4 that does not improve with Tylenol or Ibuprofen, recurrent vomiting, or any other new or worsening symptoms or concerns. Prescriptions: New prednisone 20 mg tablet 60 mg PO DAILY 5 Days Qty: 15 0RF No Action baclofen 10 mg tablet 10 mg PO TID 30 Days Qty: 90 6RF gabapentin 800 mg tablet 800 mg PO TID 30 Days Qty: 90 6RF amlodipine 5 mg tablet 5 mg PO DAILY Qty: 90 1RF cholecalciferol (vitamin D3) 50 mcg (2,000 unit) capsule 50 mcg PO DAILY Qty: 90 1RF (DME) lancets [FreeStyle Lancets] 28 gauge misc See Rx Instructions .Route Qty: 100 5RF Rx Instructions: As directed twice a day AC (DME) FreeStyle Lite Strips Strip See Rx Instructions .Route Qty: 100 0RF Rx Instructions: check fasting blood sugar twice a day before meals metformin 1,000 mg tablet 1,000 mg PO BID Qty: 180 3RF (DME) FreeStyle Cristian 2 [place] Misc See Rx Instructions .Route Qty: 1 0RF Rx Instructions: test blood sugar 4 times per day (DME) FreeStyle Cristian 2 Sensor Kit See Rx Instructions .Route Qty: 6 3RF Rx Instructions: Test blood sugar 4 times per day (DME) blood-glucose meter [FreeStyle Lite Meter] Kit See Rx Instructions .Route Qty: 1 0RF Rx Instructions: As directed twice a day before meals aspirin [Adult Low Dose Aspirin] 81 mg tablet,delayed release (DR/EC) 81 mg PO BEDTIME Qty: 90 0RF losartan 50 mg tablet 50 mg PO DAILY Qty: 90 1RF Januvia 100 mg tablet 100 mg PO DAILY Qty: 90 0RF magnesium oxide 400 mg magnesium capsule 400 mg PO BEDTIME Qty: 30 1RF Trelegy Ellipta 100-62.5-25 mcg blister with device 1 ea INHALATION DAILY Soothe and Cool Inzo Barrier 5 % cream 1 appl topical QID PRN (Reason: skin irritation) Qty: 118.29 0RF albuterol sulfate [Ventolin HFA] 90 mcg/actuation HFA aerosol inhaler 2 puff inhalation Q6H PRN (Reason: shortness of breath or wheezing) Qty: 6.7 0RF rosuvastatin 20 mg tablet 20 mg PO DAILY Qty: 90 0RF metoprolol tartrate 25 mg Tablet 25 mg PO BID Qty: 180 0RF Protocol: Hold for SBP/HR < HOLD for SBP < : 90 HOLD for HR < : 60 esomeprazole magnesium 40 mg capsule,delayed release(DR/EC) 40 mg PO DAILY Qty: 30 6RF Linzess 72 mcg capsule 72 mcg PO QAM Qty: 30 6RF simethicone [Anti-Gas Ultra Strength] 180 mg capsule 180 mg PO QID PRN (Reason: gas) Qty: 120 6RF metoclopramide HCl [Reglan] 10 mg tablet 10 mg PO QIDACHS Qty: 180 6RF psyllium husk [Fiber Laxative (psyllium husk)] 0.52 gram capsule 1.04 g PO BID 30 Days Qty: 120 6RF famotidine 40 mg tablet 40 mg PO BEDTIME Qty: 90 2RF ferrous sulfate 325 mg (65 mg iron) tablet 325 mg PO DAILY Qty: 30 5RF Referrals: Magalie Nicolas MD [Primary Care Provider, Internal Medicine] Clinical Impression: Arthralgia; COPD with acute bronchitis Print Language: Uzbek
[2025-08-10] MEDS: Albuterol Sulfate 5 MG, Albuterol/Iprat 2.5/0.5MG 3 ML 3 ML INHALE (20:45)
[2025-08-10 20:46] VITALS: PULSE 87; RESP 20; O2SAT 96
[2025-08-10 21:42] LABS: Resp Syncy Virus RNA Qual PCR NEGATIVE (Negative); SARS COV2 PCR INHOUSE NEGATIVE (Negative)
[2025-08-10 22:41] VITALS: BP 135/82; PULSE 87; RESP 20; TEMP 36.7; O2SAT 97
== END 2025-08-10 22:43 | disposition home or self-care (01) ==
PROVIDERS: Physician Assistant; Emergency Provider Emergency Medicine; PCP Internal Medicine
DX: J20.9 Acute bronchitis, unspecified (principal); J44.0 Chronic obstructive pulmonary disease with (acute) lower respiratory infection; M25.561 Pain in right knee; M25.562 Pain in left knee; M25.572 Pain in left ankle and joints of left foot; R11.0 Nausea; I10 Essential (primary) hypertension; E11.9 Type 2 diabetes mellitus without complications; F17.200 Nicotine dependence, unspecified, uncomplicated; Z03.818 Encounter for observation for suspected exposure to other biological agents ruled out
CPT/HCPCS: 36415; 73564; 73610; 80048; 80076; 83690; 85025; 87637; 94640; 99284

== ENCOUNTER → 2025-08-10 16:22 | Outpatient (BNV) | payer OTHER, SELFPAY | PROVIDERS: PCP Internal Medicine; Visit Provider Radiology Diagnostic Radiology | DX: M25.561 Pain in right knee (principal); M25.562 Pain in left knee; M25.572 Pain in left ankle and joints of left foot | CPT/HCPCS: 73564; 73610 ==